=== PATIENT | male | born 2000 | race Caucasian/White ===

== ENCOUNTER 2021-10-08 15:00 | Outpatient (RCR) | payer BC, SELFPAY | END 2022-01-01 11:48 | disposition home or self-care (01) | PROVIDERS: PCP Family Medicine; Visit Provider Physical Medicine & Rehabilitation Sports Medicine | DX: M25.561 Pain in right knee (principal); Z51.89 Encounter for other specified aftercare | CPT/HCPCS: 97110; 97112 ==

== ENCOUNTER 2022-04-22 13:41 | Outpatient (CLI) | payer BC, SELFPAY ==
--- NOTE | 2022-04-22 13:45 | MR_ITS ---
[address] [address] Phone:?[phone] Fax:?[phone] Referring Physician Information: Eliana Guerra M.D. [address] [facility] [address] Phone:?[phone] Fax:?[phone] Patient:?Paramjit Boyce D.O.B:?2000 Sex:?Male Phone:?[phone] [facility] MRN:?[id number] Exam Date:?04/22/2022 ? EXAM: MRI of the RIGHT KNEE, without contrast CLINICAL HISTORY: Right knee pain. COMPARISONS: None available. TECHNICAL: MR sequences of the right knee: sagittals: PD, PDFS coronals: PD, STIR axials: PD, T2 FS CONTRAST: None SEDATION: None FINDINGS: Bones: No fracture, bone marrow contusion, or other suspicious bone marrow signal abnormality. Patellofemoral joint: Cartilage: Single obliquely oriented slitlike chondral fissure over the medial patellar facet best seen on sagittal series 6 image 18 with slight subjacent subchondral cystic change best seen on sagittal series 5 image 18. Tiny 1 x 1 mm focus of slitlike delamination at the subchondral bone plate-cartilage interface over the median patellar ridge-lateral patellar facet junction with minimal subjacent subchondral edema-like signal. Retinacula: The medial and lateral retinacula are intact. Fat pads: The infrapatellar, quadriceps, and prefemoral fat pads are unremarkable. Knee joint: Effusion: Physiologic amount of joint fluid. Popliteal cyst: None. Intra-articular bodies: None. Posteromedial corner: The semimembranosus and pes anserine tendons are intact. Medial compartment: Medial meniscus: Intact. Cartilage: Intact. Lateral compartment: Lateral meniscus: Intact. Cartilage: Intact. Ligaments: Anterior cruciate ligament: Intact. Posterior cruciate ligament: Intact. Medial collateral ligament: Intact. Posterior oblique ligament: Intact. Fibular collateral ligament: Intact. Posterolateral corner: The distal biceps femoris tendon, iliotibial band, popliteus tendon, popliteus muscle, popliteofibular ligament, and arcuate ligament are intact. Extensor mechanism: Patellar tendon: Intact. Quadriceps tendon: Intact. IMPRESSION: 1. Single obliquely oriented slitlike chondral fissure over the medial patellar facet with slight subjacent subchondral cystic change and a tiny 1 x 1 mm focus of slitlike delamination at the subchondral bone plate-cartilage interface over the median patellar ridge-left patellar facet junction with minimal subjacent subchondral edema-like signal. Findings are of uncertain clinical significance. 2. Otherwise, unremarkable MRI of the right knee without ligamentous, tendinous, or meniscal pathology. RCB Electronically signed on 04/23/2022 6:01:00 AM by Sameer Browning M.D.
== END 2022-04-22 13:42 | disposition home or self-care (01) ==
LOC: MRI 13:43
PROVIDERS: PCP Family Medicine; Referring Provider Physical Medicine & Rehabilitation
DX: M25.561 Pain in right knee (principal)
CPT/HCPCS: 73721

== ENCOUNTER 2022-07-16 09:00 | Outpatient (RCR) | payer BC, SELFPAY | END 2022-10-08 16:19 | disposition home or self-care (01) | PROVIDERS: PCP Family Medicine; Visit Provider Physician Assistant | DX: M25.331 Other instability, right wrist (principal); Z51.89 Encounter for other specified aftercare | CPT/HCPCS: 97035; 97140; 97165 ==

== ENCOUNTER 2022-07-16 09:30 | Outpatient (RCR) | payer BC, SELFPAY | END 2022-11-13 23:59 | disposition home or self-care (01) | PROVIDERS: PCP Family Medicine; Visit Provider Physician Assistant | DX: M25.551 Pain in right hip (principal); M79.662 Pain in left lower leg; M79.661 Pain in right lower leg; M25.552 Pain in left hip; R10.2 Pelvic and perineal pain; R32 Unspecified urinary incontinence; M24.80 Other specific joint derangements of unspecified joint, not elsewhere classified; R53.1 Weakness; Z51.89 Encounter for other specified aftercare | CPT/HCPCS: 97110; 97140; 97161; 97162 ==

== ENCOUNTER 2023-01-14 14:30 | Outpatient (CLI) | payer BC, SELFPAY ==
--- NOTE | 2023-01-14 14:30 | MR_ITS ---
[facility] [address] [facility] [address] Phone:?[phone] Fax:?[phone] Referring Physician Information: . HANK Watson Medical Records [facility] [address] [facility] [address] Phone:?[phone] Fax:?[phone] Patient:?Paramjit Boyce D.O.B:?2000 Sex:?Male Phone:?[phone] [facility] MRN:?[id number] Exam Date:?01/14/2023 EXAM: MRI of the LEFT HIP, without contrast CLINICAL: Bilateral hip pain. COMPARISONS: Left hip MRI 03/28/2020. TECHNICAL: Multiplanar multisequence MRI of the left hip was obtained. Coronal large grrlw-hr-bley sequences of the pelvis/bilateral hips were also obtained. SEDATION: None. CONTRAST: None. FINDINGS: Hip joint: Physiologic volume of joint fluid. No convincing loose bodies. No demonstrable high-grade or full-thickness chondral loss. Labrum: There is focal tearing of the anterosuperior labrum on coronal series 2 image 14 and involving the superior labrum on coronal series 2 image 17, new compared to prior exam. Focal tearing of the far anterior labrum is also noted on axial series 7 image 17, new compared to prior exam. Mild fraying of the remainder of the anterosuperior labrum. No perilabral cyst formation identified. Proximal femur: No marrow edema, fracture or osteonecrosis. No convincing femoral cam morphology. Acetabulum: No significant subchondral marrow edema, cystic change or fracture. Version: There is decreased anteversion of the superior acetabulum. Coverage: Left lateral center edge (CE) angle measures approximately 34? (normal 25?-39?), midline coronal series 4 image 17. Ligamentum teres: Intact and unremarkable. Pelvis osseous structures: No suspicious marrow signal alteration or fracture line. Sacroiliac joints are maintained without marrow signal changes to suggest sacroiliitis or significant arthrosis. No evident arthrosis or changes of osteitis pubis at the symphysis pubis. Myotendinous structures: Gluteus abductors: No convincing insertional tendinopathy or tear of gluteus minimus or medius. Adductors: No demonstrable tendinopathy or strain/tear. Hamstrings: Intact semimembranosus, semitendinosus and biceps femoris tendons, without tendinopathy or tear. Flexors: Intact iliopsoas and rectus femoris, without strain/tear. External rotators: Intact. The ischiofemoral and quadratus femoris spaces are within normal limits. Gluteal aponeurotic fascia and IT band: Unremarkable. Bursae: No demonstrable trochanteric or iliopsoas bursitis. Intrapelvic structures: Although evaluation of the intrapelvic structures is limited on this exam, no convincing pelvic mass is identified as visualized. IMPRESSION: 1. Foci of tearing of the far anterior labrum, anterosuperior and superior labrum as above. 2. Decreased anteversion of the superior acetabulum. 3. No additional internal derangement identified. JCZ Electronically signed on 01/15/2023 11:25:00 AM by Michael Mckeon D.O.
== END 2023-01-14 14:31 | disposition home or self-care (01) ==
LOC: MRI 14:31
PROVIDERS: PCP Family Medicine; Visit Provider Orthopaedic Surgery
DX: M25.552 Pain in left hip (principal); S73.192A Other sprain of left hip, initial encounter
CPT/HCPCS: 73721

== ENCOUNTER 2023-04-21 09:27 | Outpatient (CLI) | payer BC, SELFPAY ==
--- NOTE | 2023-04-21 09:15 | FL_ITS ---
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 Site :?2000 Study:?XRay-Hip INJECTION W/FLUORO TO READ-04/21/2023 10:56:50 AM Ordering Physician:?KAYLEIGH ADAM Final Report: Indication: Right hip pain Procedure : Informed consent was obtained. The site was marked. Time-out was performed. The skin of the right hip was cleansed with ChloraPrep. A sterile drape was placed. 8 cc of 1 percent lidocaine was administered for superficial anesthesia. Subsequently a 22 gauge spinal needle was introduced into the right hip joint under intermittent fluoroscopic guidance. Injection of 2 cc nonionic Omnipaque 240 contrast confirmed intra-articular location. Subsequently 11 cc of dilute gadolinium were injected. The needle was removed and hemostasis achieved with direct pressure. A dressing was placed. The patient tolerated the procedure well without immediate complication and was immediately sent to MRI for imaging. Total fluoroscopy time 35 seconds. Impression: Successful fluoroscopically guided right hip arthrogram for MRI. Dictated by Gaurav Saldaña MD @ 04/21/2023 11:37:06 AM Signed by:?Gaurav Saldaña MD @04/21/2023 11:37:06 AM (Electronic Signature)
--- NOTE | 2023-04-21 10:15 | MR_ITS ---
[facility] [address] [facility] [address] Phone:?[phone] Fax:?[phone] Referring Physician Information: Ahsan Talbert MD Orthopaedic Surgery [address] [facility] [address] Phone:?[phone] Fax:?[phone] Patient:Afshan Boyce D.O.B:?2000 Sex:?Male Phone:?[phone] [facility] MRN:?[id number] Exam Date:?04/21/2023 EXAM: MR ARTHROGRAM of the RIGHT HIP CLINICAL HISTORY: Ongoing right hip pain. History of previous right hip surgery. COMPARISONS: MRI 10/25/2019. TECHNIQUE: MR sequences of the right hip: coronals: PD, T2, T1FS sagittals: PD, T2, T1FS axial obliques: PD axials: PD FS coronals of pelvis: T1, STIR Sedation: None Contrast: Intra-articular gadolinium based contrast. The injection procedure is reported separately. FINDINGS: Pelvis osseous structures: Sacrum: No fracture or destructive osseous lesion is seen of the imaged portions of the sacrum. Sacroiliac joints: No convincing evidence of sacroiliitis of the imaged portions of the sacroiliac joints. Pubic rami: Unremarkable. Symphysis pubis: There is no evidence of acute osteitis pubis. AIIS: Inferior extent: 5 mm inferior to the level of the acetabular roof. Anterior extent: 22 mm anterior to the level of mid anterior acetabular rim. Labrum: There are surgical changes status post superior and anterosuperior labral repair. There is a tiny 1 mm in length focus of intermediate PD signal within the base of the labrum at the 3 o'clock position anteriorly best seen on axial oblique series 8 image 14. Otherwise, the labrum is unremarkable status post right hip labral repair. Hip joint: The presence of contrast reflects intra-articular injection. There is a 3 x 3 mm focus of near full-thickness chondral loss over the anterosuperior portion of the right femoral head best seen on sagittal series 11 image 22 and axial oblique series 8 image 14. No degenerative subchondral cystic change or degenerative subchondral edema-like signal is seen. A normal variant suprapatellar fossa is again seen. Proximal femur: No fracture, osseous stress injury, avascular necrosis, or suspicious bone marrow signal abnormality is seen. Acetabulum: No subchondral cysts, periacetabular ossicles or marrow edema. Coverage: Right lateral center edge (CE) angle measures approximately 33? correcting for coronal pelvic tilt, midline coronal series 6 image 18. Ligamentum teres: Unremarkable. Myotendinous structures: Gluteus abductors: The gluteus minimus and medius tendons are unremarkable. Rectus abdominis-adductor longus aponeurosis, adductors, and rectus abdominis: Unremarkable. Hamstrings: Unremarkable. Flexors: The iliopsoas and rectus femoris tendons are intact. Quadratus femoris muscle: Unremarkable. Gluteal aponeurotic fascia and IT band: Unremarkable. Pelvic soft tissues: Unremarkable. IMPRESSION: 1. Surgical changes status post superior and anterosuperior labral repair of the right hip; correlate with surgical history. A tiny 1 mm in length focus of intermediate signal within the base of the right hip labrum at the 3 o'clock position anteriorly may reflect granulation tissue but is a nonspecific/equivocal finding of uncertain clinical significance. Otherwise, the labrum is unremarkable status post right hip labral repair. 3 x 3 mm focus of near full-thickness chondral loss over the anterosuperior portion of the right femoral head. No subchondral cystic change/subchondral edema-like signal.. Normal variant supra-acetabular fossa. 2. The right anterior inferior iliac spine extends 5 mm inferior to the level of the acetabular roof and 22 mm anterior to the level of the mid anterior acetabular rim. 3. No fracture, osseous stress injury, or tendinous pathology of the right hip. RCB Electronically signed on 04/21/2023 12:46:00 PM by Sameer Browning M.D.
== END 2023-04-21 09:28 | disposition home or self-care (01) ==
PROVIDERS: PCP Family Medicine; Visit Provider Orthopaedic Surgery
DX: M25.551 Pain in right hip (principal)
CPT/HCPCS: 27093; 73525; 73722; 77002; A9575; Q9966

== ENCOUNTER 2023-05-06 13:00 | Outpatient (RCR) | payer BC, SELFPAY | END 2023-09-03 23:59 | disposition home or self-care (01) | PROVIDERS: PCP Family Medicine; Visit Provider Orthopaedic Surgery | DX: M25.551 Pain in right hip (principal); M25.552 Pain in left hip; R29.898 Other symptoms and signs involving the musculoskeletal system; M62.81 Muscle weakness (generalized); Z51.89 Encounter for other specified aftercare | CPT/HCPCS: 97110; 97112; 97161 ==

== ENCOUNTER 2023-11-08 13:34 | Emergency (ER) | payer BC, SELFPAY ==
[2023-11-08 13:53] VITALS: BP 142/88; PULSE 118; RESP 16; TEMP 37.2; O2SAT 98; BMI 19.0
--- NOTE | 2023-11-08 14:24 | ED.GENADULT ---
HPI - General Adult General Chief complaint: Urogenital Problems, Male Stated complaint: Fluid retention-ref by home care physical therapist to get Garza Time Seen by Provider: 11/08/23 13:57 History of Present Illness HPI narrative: Straight caths at home, last cath last night . Recent lower body cast placed to allow left hip to heal (labral tear, etc, connective tissue disorder ). 23-year-old man presenting to the emergency department requesting placement of a Garza catheter. Recent surgery for left-sided hip labral tear head the setting of unspecified connective tissue disorder. Genetic testing apparently was negative but treats as if has Marfan's. Intermittently has had some trouble with urinary retention for some time requiring periodic self cathing. Since placement of this cast has been self cathing again. Demonstrated for home health and concern of clean/sterile technique and recommended for Garza placement. This had been discussed postop but were going to try straight cath for a while. He was having some discomfort. No fever. Admittedly has not been hydrating as well as he should as concern of cathing/urinary retention. Related Data Home Medications ?Medication ?Instructions ?Recorded ?Confirmed aspirin 81 mg chewable tablet 1 tab PO BID 11/08/23 11/08/23 cyclobenzaprine 5 mg tablet 5 mg PO 3XD PRN 11/08/23 11/08/23 diclofenac sodium 1 % topical gel 2 g topical QID 11/08/23 11/08/23 famotidine 40 mg tablet 40 mg PO DAILY 11/08/23 11/08/23 Allergies Allergy/AdvReac Type Severity Reaction Status Date / Time No Known Allergies Allergy Verified 11/08/23 13:59 Review of Systems Status of ROS: Reports: 6 or more systems reviewed and unremarkable except as noted in History and below [facility] Medical History Scaphoid fracture ?S62.009A - Unspecified fracture of navicular [scaphoid] bone of unspecified wrist, initial encounter for closed fracture (ICD-10) Klinefelter syndrome ?Q98.4 - Klinefelter syndrome, unspecified (ICD-10) 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 - Pectus excavatum (ICD-10) Contusion of great toe of left foot ?S90.112A - Contusion of left great toe without damage to nail, initial encounter (ICD-10) Chronic patellofemoral pain of left knee ?M25.562 - Pain in left knee (ICD-10) ?G89.29 - Other chronic pain (ICD-10) Tear of triangular fibrocartilage complex (TFCC) of right wrist (~07/2021) ?S63.591A - Other specified sprain of right wrist, initial encounter (ICD-10) Surgical History Status post arthroscopy of hip ?Z98.890 - Other specified postprocedural states (ICD-10) History of carpal tunnel surgery of left wrist (02/02/21) ?Z98.890 - Other specified postprocedural states (ICD-10) Social History Smoking Status: Never smoker Do you use any of these nicotine containing products: None Second hand tobacco smoke exposure: No Non-prescribed substance use: denies use Exam Narrative: Exam Narrative: Pleasant. Tall. NAD. Breathing easily. Has a extensive cast over the hips/pelvis and left leg. Garza has already been placed and appears to draining relatively clear urine lightly yellow. Has drained looks like 600 mL so far. Const: Vital Signs, click to edit/add: Vital Signs - 24 hr 11/08/23 13:53 Temperature 99 F Pulse Rate [Pulse Oximeter] 118 H Respiratory Rate 16 Blood Pressure [Ri ght Upper Arm] 142/88 H Pulse Oximetry 98 Oxygen Delivery Me thod Room Air Documenting provider has reviewed patient's vital signs: yes Course Vital Signs Vital signs: Initial Vital Signs Temperature 99 F 11/08/23 13:53 Temperature Source Temporal Artery Scan 11/08/23 13:53 Pulse Rate 118 H 11/08/23 13:53 Respiratory Rate 16 11/08/23 13:53 Blood Pressure 142/88 H 11/08/23 13:53 Blood Pressure Mean 106 H 11/08/23 13:53 Blood Pressure Position Sitting 11/08/23 13:53 Pulse Oximetry 98 11/08/23 13:53 Oxygen Delivery Method Room Air 11/08/23 13:53 Vital Signs Temperature 99 F 11/08/23 13:53 Pulse Rate 118 H 11/08/23 13:53 Respiratory Rate 16 11/08/23 13:53 Blood Pressure 142/88 H 11/08/23 13:53 Pulse Oximetry 98 11/08/23 13:53 Oxygen Delivery Method Room Air 11/08/23 13:53 Temperature 99 F 11/08/23 13:53 Pulse Rate 118 H 11/08/23 13:53 Respiratory Rate 16 11/08/23 13:53 Blood Pressure 142/88 H 11/08/23 13:53 Pulse Oximetry 98 11/08/23 13:53 Oxygen Delivery Method Room Air 11/08/23 13:53 Medical Decision Making MDM Narrative Medical decision making narrative: Primary need was placement of Garza which has been done. This was not done looking for infection but could collect urine culture. Feels improved. See patient discharge plan for further discussion Discharge Plan Discharge Clinical Impression: Urinary retention Patient Disposition: Home, Self-Care Condition: Improved Additional Instructions: Stay well-hydrated. We will let you know if the urine culture might require action. Pending results would contact you to see how you are doing. Follow-up with care providers to see when they might like you to change this Garza. Best wishes with your rehab. Prescriptions: No Action aspirin 81 mg tablet,chewable 1 tab PO BID cyclobenzaprine 5 mg tablet 5 mg PO 3XD PRN famotidine 40 mg tablet 40 mg PO DAILY diclofenac sodium 1 % gel 2 g topical QID Follow Up/Referrals: Eliana Guerra MD [Primary Care Provider] - Stand Alone Forms: [employer] Info Instructions
--- OUTSIDE RECORDS SUMMARY | 2023-11-08 15:11 | XMS_ITS | Clinical Summary ---
Author Organization [facility] Address [place], [place] [address] Care Team Providers Care Estimating Engineer Name Role Phone Eliana Guerra MD Primary Care Provider [facility] [place] Unavailable Allergies No known active allergies Medications Medication Sig Dispensed Refills Start Date End Date Status acetaminophen (TYLENOL) 500 mg capsule Take 1,000 mg by mouth every 6 hours if needed. 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 06/19/2021 Active polyethylene glycol-electrolyt e (GOLYTELY) 236-22.74-6.74 -5.86 gram suspension Drink 1st portion of prep at 6 PM the evening before. 2nd portion must be started 3 hours before and finished 2 hours prior to report time 01/20/2022 Active ferrous sulfate, 65 mg elemental, (FeroSuL) tabletIndications :Restless legs Take 1 Tablet (325 mg) by mouth once daily with a meal. 90 Tablet 04/16/2022 Active loratadine (CLARITIN) 10 mg tabletIndications :Perennial allergic rhinitis Take 1 Tablet (10 mg) by mouth once daily. 90 Tablet 3 01/20/2023 Active diclofenac topical (Voltaren) 1 % gelIndications:Ri ght knee pain, unspecified chronicity,Recurr ent right knee instability Apply 2 g topically to affected area(s) four times daily. 100 g 2 04/14/2023 Active famotidine (PEPCID) 40 mg tabletIndications :Heart burn Take 1 Tablet (40 mg) by mouth once daily. 90 Tablet 1 04/21/2023 Active tamoxifen (NOLVADEX) 20 mg tablet Take 20 mg by mouth once daily. 06/07/2023 Active hydrOXYzine HCL (ATARAX) 25 mg tabletIndications :Acute reaction to situational stress Take 1 Tablet (25 mg) by mouth at bedtime if needed for Anxiety. 30 Tablet 09/29/2023 Active cyclobenzaprine (FLEXERIL) 5 mg tabletIndications :Muscle spasm Take 1 Tablet (5 mg) by mouth 3 times daily if needed for Muscle Spasm. 30 Tablet 11/02/2023 Active cyclobenzaprine (FLEXERIL) 5 mg tabletIndications :Muscle spasm Take 1 Tablet (5 mg) by mouth three times daily. 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/23/2018 Tall stature 03/23/2018 Connective tissue disorder 01/04/2018 Underweight in adolescence 01/04/2018 Scoliosis 01/04/2018 Congenital pectus excavatum 12/29/2013 Encounters Date Type Department Care Team Description 11/08/2023 1:30 PM CDT Office Visit [facility] [address] [place] [address] Una Apodaca PsyD, LP Failed Appointment 11/08/2023 Home Care Visit [facility] [address] [place] [id number] Manuela Morton RN CARE COORDINATION 11/08/2023 Telephone [facility] [address] [place] [address] Sole Sommer, PT Home Care (Garza Order) 11/08/2023 Telephone [facility] [address] [place] [address] Sole Sommer, PT Home Care (SN Orders) 11/08/2023 Telephone [facility] [address] [place] [address] Eliana Guerra MD ACC Order Request (verbal orders) 11/06/2023 Refill [facility] [address] [place] [address] Eliana Guerra MD Refill Request (Hydroxyzine Hcl) 11/02/2023 1:35 PM CDT Office Visit [facility] [address] [place] [address] Eliana Guerra MD Physical (23 year old) 11/02/2023 Travel 10/31/2023 1:30 PM CDT Telemedicine [facility] [address] [place] [address] Una Apodaca PsyD, EDSON Mental Health Intake 10/31/2023 Travel 10/27/2023 8:30 AM CDT Office Visit [address] [address] [facility] Visit 10/27/2023 Travel 10/18/2023 10:30 AM CDT Office Visit [address] [address] [facility] Visit 10/18/2023 Travel 09/29/2023 2:25 PM CDT Office Visit [address] [address] Eliana Guerra MD Medication Management 09/29/2023 Travel from Last 3 Months Immunizations Name Administration Dates Next Due COVID-19 VACCINE SPIKEVAX (M ODERNA 50MCG/0.5ML) 12YO+ PFS 11/02/2023 COVID-19 vaccine (Moderna 100mcg/0.5mL) PF, MDV 08/15/2020,05/29/2020 COVID-19 vaccine (Pfizer-Bio NTech 30mcg/0.3mL) 12YO+ BIVALENT PF, MDV 04/16/2022 COVID-19 vaccine (Pfizer-Bio NTech 30mcg/0.3mL) PF, MDV 02/18/2021 DTaP 11/11/2004, 2,01/12/2001,09/02 HIB-HepB (Comvax) 10/20/2001,01/12/2001,09/03/19 01 HPV 9 (Gardasil 9) 10/28/2020,03/07/2020, 020 Hepatitis A (Peds) 04/18/2018,02/23/2017 INFLUENZA, IIV3 PF (AGE >= 6 MO) 11/02/2023 Inactivated Polio Vaccine 11/11/2004,,01/12/2001,09/02 Influenza, IIV4 11/19/2022, 3,10/28/2020,10/18,10/24/2017,02/23/2017,12/06/2013 MENINGOCOCCAL VACCINE 2 VIAL 2MO-55YO (MENVEO) 02/23/2017,09/02/2015 MMR 11/11/2004,10/20/2001 Pneumococcal conj 7-Valent (Prevnar 7) 2,01/12/2001,2000 Tdap 11/19/2022,09/22/2012 Tuberculin (PPD) 10/28/2020 Varicella Vaccine 09/22/2012,10/20/2001 Family History Medical History Relation Name Comments Good Health Father Good Health Mother Good Health Sister 2 Relation Name Status Comments Father Alive Mother Alive Sister 1 Alive Sister 2 Social History Tobacco Use Types Packs/Day Years Used Date Smoking Tobacco: Never Smokeless Tobacco: Never Tobacco Cessation:Counseling Given: Yes Alcohol Use Standard Drinks/Week Comments Yes 0 (1 standard drink = 0.6 oz pur e alcohol) 1-2 drinks per month PHQ-2 Answer Date Recorded PHQ-2 TOTAL SCORE 1 10/31/2023 Social Connections Answer Date Recorded Frequency of Communication with Friends and Fami ly 0 04/21/2023 Financial Resource Strain Answer Date R ecorded Difficulty of Paying Living Expenses 3 04/21/2023 Difficulty of Paying Living Expenses Not on file 04/21/2023 Food Insecurity Answer Date Recorded Worried About Running Out of Food in the Last Ye ar 1 04/21/2023 Transportation Needs Answer Date Record ed Lack of Transportation (Medical) 1 04/21/2023 Housing Stability Answer Date Recorded Unable to Pay for Housing in the Last Year 1 04/21/2023 Sex and Gender Information Value Date Recorded Sex Assigned at Not on file Gender Identity Not on file Sexual Orientation Not on file Obstetrics History Last Filed Vital Signs Vital Sign Reading Time Taken Comments Blood Pressure 122/84 11/02/2023 1:38 PM CDT Pulse 101 11/02/2023 1:38 PM CDT Temperature 36.4 ??C (97.6 ??F) 01/27/2022 9:00 AM CS T Respiratory Rate 16 01/20/2023 1:02 PM REGIONAL ENGINEER Oxygen Saturation 99% 11/02/2023 1:38 PM CDT Inhaled Oxygen Concentration - - Weight 67.9 kg (149 lb 12.8 oz) 11/02/2023 1:38 PM CDT Height 188.6 cm (6' 2.25) 11/02/2023 1:38 PM CD T Body Mass Index 19.1 11/02/2023 1:38 PM CDT Plan of Treatment Upcoming Encounters Date Type Department Care Team (Late st Contact Info) Description 11/15/2023 1:00 PM CDT Office Visit [facility] [address] [place] [address] Larry Green DPM [address] [place] [address] 12/05/2023 9:30 AM CDT Office Visit [facility] [address] [place] [address] Una Apodaca, PsyD, LP [address] [place] [address] Health Maintenance Due Date Last Done Comments COVID-19 vaccine series ( - 2023- season) 2023 11/02/2023, 04/16/2022, 02/18/2021, Additional history exists BMI (ht and wt on same day) for age 18+ 11/01/2024 11/02/2023, 01/20/2023, 11/19/2022, Additional history exists Depression screening for age 12+ 11/01/2024 11/02/2023, 10/31/2023, 08/01/2023, Additional history exists Tetanus booster 11/19/2032 11/19/2022, 09/22/2012 Pneumococcal series for age 6-64 Aged Out 04/21/2001, 01/12/2001, 2000 No longer eligible based on patient's age to complete this topic HIV for age 15-65 Completed 08/18/2020 Hepatitis C screening for age 18-79 Completed 08/18/2020 HPV series for age 9-26 Completed 10/29/19 21, 03/07/2020, 10/19/2019 Tdap Completed 11/19/2022, 09/22/2012 Influenza for age 9-49 Completed , 11/19/2022, 04/16/2022, Additional history exists Procedures Procedure Name Priority Date/Time Associated Diagnosis Comments EXPOSURE (BBF) RAPID HIV Routine 08/18/2020 8:10 AM CDT Employee exposure to blood EXPOSURE (BBF) ANTI HCV Routine 08/18/2020 8:10 AM CDT Employee exposure to blood from Last 3 Months or Most Recently Relevant to Health Maintenance Results * EXPOSURE (BBF) RAPID HIV (08/18/2020 8:10 AM CDT) SOURCE RAPID HIV SCREEN Non-Reacti ve Non-Reacti ve 08/18/2020 2:42 PM CDT [facility] Blood BLOOD SPECIMEN / Unknown Venipuncture / Unknown 08/18/2020 8:10 AM CDT 08/18/2020 8:11 AM CDT Eliana Guerra MD SEND OUTS [facility] [employer] [address] [place] [address], [place] * EXPOSURE (BBF) ANTI HCV (08/18/2020 8:10 AM CDT) HEPATITIS C ANTIBODY Non-React alex Non-React alex 08/18/2020 2:57 PM CDT [facility] Comment:Antibodies to HCV no t detected; does not exclude the possibility of exposure to HCV. Blood BLOOD SPECIMEN / Unknown Venipuncture / Unknown 08/18/2020 8:10 AM CDT 08/18/2020 8:11 AM CDT Eliana Guerra MD SEND OUTS [facility] [employer] [address] [place] [address], [place] from Last 3 Months or Most Recently Relevant to Health Maintenance Care Teams Estimating Engineer Relationship Specialty Start Date End Date Eliana Guerra MD [address] [place] [address] PCP - General Family Practice 10/20/[address] [address] 11/07/23
--- OUTSIDE RECORDS SUMMARY | 2023-11-08 15:11 | XMS_ITS | Clinical Summary ---
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 Discharge Disposition: Home or Self Care Attending Physician: Jennifer Sams MD Admitting Physician: Jennifer Sams MD Referring Physician: Jennifer Sams MD Allergies, Adverse Reactions, Alerts No Known Allergies Discharge Medications cyclobenzaprine (cyclobenzap rine 5 mg oral tablet) Status: Ordered Start Date: 10/21/23 diclofenac topical (diclofen ac 1% topical gel) Status: Ordered Start Date: 10/21/23 famotidine (famotidine 40 mg oral tablet) Status: Ordered Start Date: 09/05/23 hydrOXYzine (hydrOXYzine hyd rochloride 25 mg oral tablet) Status: Ordered Start Date: 10/21/23 tamoxifen (tamoxifen 20 mg o ral tablet) Status: Ordered Start Date: 09/05/23 Problem List Condition Confirmation Course Effective Dates Status Health St atus Informant Pectus excavatum Confirmed Active patie nt Scoliosis Confirmed Active patient Hospital Discharge Diagnosis 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 (This Visit) Immunizations Given and Recorded Vaccine Date Status Refusal Reason tetanus/diphth/pertuss (Tdap) adult/adol 11/19/22 Recorded tetanus/diphth/pertuss (Tdap) adult/adol 09/22/12 Recorded influenza virus vaccine, inactivated 11/19/22 Bony rded influenza virus vaccine, inactivated 04/16/22 Bony rded influenza virus vaccine, inactivated 10/28/20 Bony rded influenza virus vaccine, inactivated 10/19/19 Bony rded influenza virus vaccine, inactivated 10/24/17 Bony rded influenza virus vaccine, inactivated 02/23/17 Bony rded influenza virus vaccine, inactivated 12/06/13 Bony rded SARS-CoV-2 mRNA (tozinameran) vaccine 02/18/21 Rec orded human papillomavirus vaccine 10/28/20 Recorded human papillomavirus vaccine 03/07/20 Recorded human papillomavirus vaccine 10/19/19 Recorded SARS-CoV-2 (COVID-19) mRNA-1273 vaccine 08/15/20 R ecorded SARS-CoV-2 (COVID-19) mRNA-1273 vaccine 05/29/20 R ecorded hepatitis A pediatric vaccine 04/18/18 Recorded hepatitis A pediatric vaccine 02/23/17 Recorded meningococcal conjugate vaccine 02/23/17 Recorded meningococcal conjugate vaccine 09/02/15 Recorded varicella virus vaccine 09/22/12 Recorded varicella virus vaccine 10/20/01 Recorded poliovirus vaccine, inactivated 11/11/04 Recorded poliovirus vaccine, inactivated 04/21/01 Recorded poliovirus vaccine, inactivated 01/12/01 Recorded poliovirus vaccine, inactivated 00 Recorded measles/mumps/rubella/varicella vaccine 11/11/04 R ecorded measles/mumps/rubella/varicella vaccine 10/20/01 R ecorded diphtheria/tetanus/pertussis (DTaP) ped 11/11/04 R ecorded diphtheria/tetanus/pertussis (DTaP) ped 04/21/01 R ecorded diphtheria/tetanus/pertussis (DTaP) ped 01/12/01 R ecorded diphtheria/tetanus/pertussis (DTaP) ped 00 R ecorded Vital Signs Most recent to oldest [Reference Range]: 1 Pain Present Yes actual or suspec steven pain (11/04/23 12:47 PM) Able to self report Yes (11/04/23 12:47 PM) able to use numeric rating scale Yes (11/04/23 12:47 PM) Social History Social History Type Response Tobacco Never (less than 100 in lifetime) Sex Sex Representation Male (finding) Treatment Plan Future Appointments Appointment Date:12/26/2023 10:50:00 AM Scheduled Provider:Jennifer Sams MD Location:[facility] - Clinic Appointment Type:Orthopedics Hip Preservation - Standard Appointment Date:12/26/2023 01:20:00 PM Scheduled Provider:Leila Mahoney MD Location:[facility] - [facility] Appointment Type:Hand - New Patient Care team information Personnel Name: Eliana Guerra MD Address: [address]
--- OUTSIDE RECORDS SUMMARY | 2023-11-08 15:11 | XMS_ITS | Referral Summary ---
Author Organization [facility] Address [address] [place] [id number] Care Team Providers Care Knockout Machine Operator Name Role Phone Elsewhere, Pcp Primary Care Provider Unavailabl e Source Comments Patient records contain information from all sites at [facility]. For routine questions regarding patient records, call [phone] during business hours, M-F 8:00 AM - 5:00 PM Central Time. Record requests for emergency care only can be directed to [phone] at any time.[facility] Encounters Date Type Department Care Team Description 11/07/2023 Clinical Communication Department of Sports Medicine in [place], [place] [address] [place] [phone] Ahsan Talbert M.D., Ph.D. Order Needed Today 11/07/2023 Orders Only Department of Orthopedic Surgery in [address] [phone] Candida Lucero P.A.-C. Pain Hip Left (Primary Dx) 11/07/2023 1:00 PM CDT Comprehensive Visit Department of Physical Medicine and Rehabilitation in [place], [place] [address] [place] [phone] Mike Salomon Jr., Raymon.Irish Carter P.T., D.P.T. Pain Wrist Left (Primary Dx); Pain Wrist Right 11/07/2023 10:00 AM CDT Comprehensive Visit Department of Physical Medicine and Rehabilitation in [address] [phone] Candida Lucero P.A.-C. Lee, Madeline M P.T., D.P.T., OCS Pain Hip Left [M25.552] (Primary Dx); Pain Hip Right 11/07/2023 7:54 AM CDT - 11/07/2023 8:34 AM CDT Hospital Encounter Department of Orthopedic Surgery in [place], [place] [address] [place] [phone] Kushal Mendieta M.D. Hevesi, Mario, M.D., Ph.D. Mobility Limited (Primary Dx); Pain Hip Left; Hypermobility Joint Discharge Disposition: Home or Self Care 10/31/2023 8:45 AM CDT - 10/31/2023 9:07 AM CDT Hospital Encounter Department of Radiology, [facility], in [place], [place] [address] [place] [phone] Candida Lucero P.A.-C. Pain Hip Right Discharge Disposition: Home or Self Care 10/31/2023 9:08 AM CDT - 10/31/2023 11:59 PM CDT Hospital Encounter Department of Radiology, [facility], in [place], [place] [address] [place] [phone] Candida Lucero P.A.-C. Pain Hip Right Discharge Disposition: Home or Self Care 10/31/2023 9:08 AM CDT - 10/31/2023 11:59 PM CDT Hospital Encounter Department of Radiology, [facility], in [place], [place] [address] [place] [phone] Candida Lucero P.A.-C. Pain Hip Right Discharge Disposition: Home or Self Care 10/25/2023 Orders Only Department of Orthopedic Surgery in [address] [phone] Candida Lucero P.A.-C. Pain Hip Right (Primary Dx) 10/25/2023 Clinical Communication Department of Sports Medicine in [place], [place] [address] [place] [phone] Ahsan Talbert M.D., Ph.D. 10/25/2023 Orders Only Department of Orthopedic Surgery in [place], [place] [address] [place] [phone] Candida Lucero P.A.-C. Pain Hip Right (Primary Dx) 10/24/2023 Orders Only Department of Orthopedic Surgery in [address] [phone] Ahsan Talbert M.D., Ph.D. 10/24/2023 1:15 PM CDT Telemedicine Department of Sports Medicine in [address] [phone] Ahsan Talbert M.D., Ph.D. Pain Hip Right (Primary Dx) 10/13/2023 Orders Only Department of Orthopedic Surgery in [address] [phone] Mike Salomon Jr., P.A.-C. Pain Wrist Left (Primary Dx) 09/19/2023 Documentation [facility] Aisha Foster M.S.Emiliana, L.I.C.S.W. 09/19/2023 11:00 AM CDT Virtual Visit Department of Social Work in [address] [phone] Candida Lucero P.A.-C. Aisha Foster M.S.Emiliana, L.I.C.S.W. Pain Hip Bilateral 09/16/2023 Clinical Communication Department of Sports Medicine in [address] [phone] Ahsan Talbert M.D., Ph.D. 09/15/2023 8:00 AM CDT Telemedicine Department of Sports Medicine in [address] [phone] Ahsan Talbert M.D., Ph.D. Pain Hip Bilateral (Primary Dx) 09/13/2023 3:45 PM CDT Clinical Communication Virtual Review in [address] [phone] Pre-visit Intake 09/01/2023 1:00 PM CDT Telemedicine Department of Urology in [place], [place] [address] [place] [address] Kate Egan P.A.-C. Retention Urinary (Primary Dx); Dysfunction Pelvic Floor Male 08/31/2023 4:00 PM CDT Procedure visit Department of Sports Medicine in [place], [place] [address] [place] [phone] Armin Colvin M.D. Pain Hip Left; Pain Hip Right 08/24/2023 Orders Only Department of Urology in [place], [place] [address] [place] [phone] Kate Egan P.A.-C. 08/23/2023 Clinical Communication Department of Sports Medicine in [place], [place] [address] [place] [address] Ahsan Talbert M.D., Ph.D. 08/18/2023 8:00 AM CDT Comprehensive Visit Department of Urology in [place], [place] [address] [place] [address] Kate Egan P.A.-C. Frequency Urinary (Primary Dx); Hesitancy Urinary 08/18/2023 7:00 AM CDT - 08/18/2023 11:59 PM CDT Hospital Encounter Department of Laboratory Medicine and Pathology, [facility], in [place], [place] [address] [place] [phone] Tam Clark M.D. Frequency Urinary Discharge Disposition: Home or Self Care 08/18/2023 1:45 PM CDT Procedure visit Department of Urology in [place], [place] [address] [place] [phone] Tam Clark M.D. Pingel, Kim M, L.P.NMackenzie Retention Urinary (Primary Dx); Frequency Urinary 08/18/2023 10:30 AM CDT Comprehensive Visit Department of Physical Medicine and Rehabilitation in [place], [place] [address] [place] [phone] Corrine Lewis P.A.-C., M.S. Bel Rojo P.T., D.P.T., OCS Spasm Muscle (Primary Dx); Pain Pelvic Male from Last 3 Months Allergies No known active allergies Medications Medication Sig Dispensed Refills Start Date End Date Status famotidine (PEPCID) 40 mg tablet Take 40 mg by mouth 2 (two) times a day. Active tamoxifen (NOLVADEX) 20 mg tablet Take 1 tablet (20 mg total) by mouth daily. Swallow whole; do not split, chew, or crush. Take with or without food. 90 tablet 06/07/2023 Active tadalafiL (Cialis) 5 mg tablet Take 1 tablet (5 mg total) by mouth daily. 90 tablet 07/11/2023 Active aspirin 81 mg chewable tablet Chew 1 tablet (81 mg total) 2 (two) times a day for 21 days. 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 Pain Wrist Left 07/01/2020 DeQuervain's Tenosynovitis 05/23/2020 Pain Hip Bilateral 12/12/2019 Overview (12/12/2019): Added automatically from request for surgery [id number] Tear Hip Labral Degenerative Right 12/12/2019 Overview (12/12/2019): Added automatically from request for surgery [id number] Klinefelter's Syndrome 07/25/2019 Primary Exertional Headache 04/18/2018 Hypogonadism Male 03/23/2018 Stature Tall 03/23/2018 Pes Planus Left 03/23/2018 Pes Planus Right 03/23/2018 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 Other Abnormal Findings In S pecimens From Other Organs Systems And Tissues 03/23/2018 Other Symptoms And Signs Inv olving The Musculoskeletal System 03/23/2018 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/23/2018 Scoliosis 01/04/2018 Systemic Involvement Of Connective Tissue Unspec ified 01/04/2018 Underweight 01/04/2018 Pectus Excavatum 12/29/2013 Pain Joint Foot Bilateral Polyarthralgia Foot Drop Left Resolved Problems Problem Noted Date Diagnosed Date Resolved Date Temporomandibular Joint Disorder 09/18/2020 01/19/2022 Social History Tobacco Use Types Packs/Day Years Used Date Smoking Tobacco: Never Smokeless Tobacco: Never Tobacco Cessation:Counseling Given: Not Answered Alcohol Use Standard Drinks/Week Comments Yes 1 (1 standard drink = 0.6 oz pur e alcohol) [facility] Utilities Answer Date Recorded In the past 12 months has e electric, gas, oil, or water [employer] threatened to shut off services in your home? No 05/22/2023 Humiliation, Afraid, Rape, and Kick questionnair e Answer Date Recorded Within the last year, have y ou been afraid of your partner or ex-partner? No 2022 Within the last year, have y ou been humiliated or emotionally abused in other ways by your partner or ex-partner? No Within the last year, have y ou been kicked, hit, slapped, or otherwise physically hurt by your partner or ex-partner? No 2022 Within the last year, have y ou been raped or forced to have any kind of sexual activity by your partner or ex-partner? No 2022 Social Connection and Isolat ion Panel [NHANES] Answer Date Recorded In a typical week, how many times do you talk on the phone with family, friends, or neighbors? More than three times a week 2022 How often do you get togethe r with friends or relatives? More than three times a week 2022 How often do you attend chur ch or yazdanism services? More than 4 times per year 2022 Do you belong to any clubs o r organizations such as latter-day groups, unions, fraternal or athletic groups, or school groups? Yes 2022 How often do you attend meet ings of the clubs or organizations you belong to? More than 4 times per year 2022 Are you , , di vorced, , never , or living with a partner? Never 2022 AUDIT-C Answer Date Recorded Q1: How often do you have a drink containing alc ohol? 2-4 times a month 2022 Q2: How many drinks containi ng alcohol do you have on a typical day when you are drinking? 1 or 2 2022 Q3: How often do you have si x or more drinks on one occasion? Less than monthly 2022 Overall Financial Resource Strain (CARDIA) Answe r Date Recorded How hard is it for you to pa y for the very basics like food, housing, medical care, and heating? Not very hard 2022 PHQ-2 Answer Date Recorded PHQ-2 Score 0 07/07/2023 [facility] [place] [facility] Occupat ional Health - Occupational Stress Questionnaire Answer Date Recorded Do you feel stress - tense, restless, nervous, or anxious, or unable to sleep at night because your mind is troubled all the time - these days? Only a little 2022 Exercise Vital Sign Answer Date Recorde d On average, how many days pe r week do you engage in moderate to strenuous exercise (like a brisk walk)? 4 days 05/22/2023 On average, how many minutes do you engage in exercise at this level? 10 min 05/22/2023 Hunger Vital Sign Answer Date Recorded Within the past 12 months, y ou worried that your food would run out before you got the money to buy more. Never true 05/22/19 24 Within the past 12 months, t he food you bought just didn't last and you didn't have money to get more. Never true 05/22/2023 PRAPARE - Transportation Answer Date Re corded In the past 12 months, has l ack of transportation kept you from medical appointments or from getting medications? No 05/08 In the past 12 months, has l ack of transportation kept you from meetings, work, or from getting things needed for daily living? No 05/22/2023 Depression Answer Date Recor ded PHQ-9 Total Score (max 27) 5 07/06 Nutrition Answer Date Recorded On average, how many serving s of fruits and vegetables do you eat per day (serving size is equal to 1 cup or approximately the size of a tennis ball)? 0-2 05/22/2023 Dental Answer Date Recorded Dental: Regular Dentist Yes 05/22/19 Employment Answer Date Recorded Employment status Employed and actively working without restrictions 05/22/2023 Housing Stability Answer Date Recorded What is your living situation today? I have a [facility] place to live 05/22/2023 Education Answer Date Recorded What is the highest level of school you have completed or the highest degree you have received? Some college, no degree 05/24/2020 Sex and Gender Information Value Date Recorded Sex Assigned at Male 10/29/2020 12:38 PM CDT Gender Identity Male 07/15/2019 8:59 AM CDT Sexual Orientation Straight 07/15/2019 8: 59 AM CDT Last Filed Vital Signs Vital Sign Reading Time Taken Comments Blood Pressure 126/84 05/23/2023 8:08 AM CDT Pulse 91 05/23/2023 8:08 AM CDT Temperature 37.3 ??C (99.1 ??F) 01/20/2022 10:[address] Respiratory Rate 30 02/11/2021 10:10 AM CONSTRUCTION AND MAINTENANCE INSPECTOR Oxygen Saturation 99% 02/11/2021 10:15 AM CONSTRUCTION AND MAINTENANCE INSPECTOR Inhaled Oxygen Concentration - - Weight 65.8 kg (145 lb) 07/08/2023 9:50 AM CDT Height 185.4 cm (6' 1) 07/08/2023 9:50 AM CDT Body Mass Index 19.13 07/08/2023 9:50 AM CDT Plan of Treatment Upcoming Encounters Date Type Department Care Team (Late st Contact Info) Description 11/17/2023 9:30 AM CDT Clinical Support Department of Physical Medicine and Rehabilitation in [place], [place] [address] [place] [phone] Corrine Lewis P.A.-C., M.S. [address] [place] [phone] Bel Rojo P.T., D.P.T., OCS [address] [place] [phone] 11/29/2023 8:00 AM CDT Appointment Department of Orthopedic Surgery in [place], [place] [address] [place] [phone] Ahsan Talbert M.D., Ph.D. [address] [place] [phone] 01/06/2024 9:15 AM CONSTRUCTION AND MAINTENANCE INSPECTOR Office Visit Department of Orthopedic Surgery in [place], [place] [address] [place] [phone] Jose Crawford M.D. [address] [place] [phone] Medical Devices Implanted Type Area Board Setter Device Identifier Shelf Expiration Date Model / Serial / Lot Hardware E.G. Pins/Screws/R ods Hardware e.g. pins/screws/ rods Chest Wall [address] [employer]k Hip Mini 2.4x8.9 - [id number] Implanted:Qty : 1 on 02/13/2020 by Zoltan Haines M.D. at [facility] Hardware e.g. pins/screws/ rods Right: Hip Arthrex [id number] 11/06/2024 AR-2924PH S / / [id number] [address] Pk Hip Mini 2.4x8.9 - [id number] Implanted:Qty : 2 on 02/13/2020 by Zoltan Haines M.D. at [facility] Hardware e.g. pins/screws/ rods Right: Hip Arthrex [id number] 10/07/2024 AR-2924PH S / / [id number] [address] Pk Hip Mini 2.4x8.9 - [id number] Implanted:Qty : 1 on 02/13/2020 by Zoltan Haines M.D. at [facility] Hardware e.g. pins/screws/ rods Right: Hip Arthrex [id number] 07/07/2024 AR-2924PH S / / [id number] Kt Fix Intbrc Hnd Wrst - [id number] Implanted:Qty : 1 on 02/02/2021 by Jose Crawford M.D. at [facility] Hardware e.g. pins/screws/ rods Left: Wrist Arthrex [id number] 09/06/2025 [id number] P / / [id number] Procedures Procedure Name Priority Date/Time Associated Diagnosis Comments MR HIP ARTHROGRAM RIGHT RAD - Routine (most inpatients and all outpatients) 10/31/2023 11:15 AM CDT Pain Hip Right FL HIP ARTHROGRAM INJECTION RIGHT RAD - Routine (most inpatients and all outpatients) 10/31/2023 10:11 AM CDT Pain Hip Right CT HIP RIGHT WITHOUT IV CONTRAST RAD - Routine (most inpatients and all outpatients) 10/31/2023 9:21 AM CDT Pain Hip Right CA ARTHCS ASP/INJ MJR JT W US Routine 08/31/2023 4:00 PM CDT Pain Hip Left Pain Hip Right URO UROFLOW Routine 08/18/2023 1:45 PM CDT Frequency Urinary DIPSTICK, U Routine 08/18/2023 7:31 AM CDT PH, U Routine 08/18/2023 7:31 AM CDT MICROSCOPIC AUTOMATED Routine 08/18/2023 7:31 AM CDT OSMOLALITY, U Routine 08/18/2023 7:31 AM CDT URINALYSIS WITH MICROSCOPIC Routine 08/18/2023 7:31 AM CDT Frequency Urinary from Last 3 Months Results * MR Hip Arthrogram Right (10/31/2023 11:15 AM CDT) Anatomical Region Laterality Modality Lower Extremity, Hip, Muscul oskeletal RST LOS, Musculoskeletal ARZ LOS, Muskuloskeletal FLA LOS Right Magne tic Resonance Impressions 10/31/2023 11:44 AM CDT 1. ??Postsurgical changes about the right hip. Linear signal within the anterior superior labrum, representing changes from prior labral repair versus recurrent tear. 2. ??Cxav-hn-kmxrhvcd chondromalacia about the right lateral hip. 3. ??Intraosseous ganglion cyst/degenerative cystic changes about the acetabular roof. Narrative 10/31/2023 11:44 AM CDT EXAM: ??MR HIP ARTHROGRAM RIGHT COMPARISON: ??Right hip and pelvis radiograph 12/14/2022, CT of the right hip 10/31/2023 FINDINGS: ?? MR arthrogram of the right hip performed at [facility]. Images degraded by mild motion artifact. Postsurgical changes of osteoplasty of the right femoral neck and acetabular rim and right labral repair. Linear T2 hyperintense signal within the anterior superior labrum (series 6 image 18 and series 4 image 12), which may be related to changes from prior labral repair versus recurrent tear. Mild to moderate chondromalacia about the right lateral acetabular rim with joint space narrowing and chondral thinning. Subchondral intraosseous ganglion cyst versus degenerative cystic change within the acetabular roof (series 8 image 18) with mild overlying chondromalacia. No acute fracture or marrow replacing lesion. Patchy marrow signal heterogeneity, likely related to red marrow hyperplasia. Intact gluteal, proximal hamstring, rectus femoris, and iliopsoas tendons. Preserved muscle signal intensity. Visualized portions of the sciatic nerve are unremarkable. Procedure Note Chasity Jarrell M.D. - 10/31/2023 EXAM: MR HIP ARTHROGRAM RIGHT COMPARISON: Right hip and pelvis radiograph 12/14/2022, CT of the righthip 10/31/2023 FINDINGS: MR arthrogram of the right hip performed at [facility]. Images degraded bymild motion artifact. Postsurgical changes of osteoplasty of the right femoral neck andacetabular rim and right labral repair. Linear T2 hyperintense signalwithin the anterior superior labrum (series 6 image 18 and series 4 image12), which may be related to changes from prior labral repair versus recurrent tear. Mild to moderate chondromalaciaabout the right lateral acetabular rim with joint space narrowing andchondral thinning. Subchondral intraosseous ganglion cyst versusdegenerative cystic change within the acetabular roof (series 8 image 18) with mild overlying chondromalacia. No acute fracture or marrow replacing lesion. Patchy marrow signalheterogeneity, likely related to red marrow hyperplasia. Intact gluteal, proximal hamstring, rectus femoris, and iliopsoas tendons.Preserved muscle signal intensity. Visualized portions of the sciaticnerve are unremarkable. IMPRESSION: 1. Postsurgical changes about the right hip. Linear signal within theanterior superior labrum, representing changes from prior labral repairversus recurrent tear. 2. Rita-uo-haemfluc chondromalacia about the right lateral hip. 3. Intraosseous ganglion cyst/degenerative cystic changes about theacetabular roof. Candida Baltazar P.A.-C. IMG MRI PROCE MICHELE * FL Hip Arthrogram Injection Right (10/31/2023 10:11 AM CDT) Anatomical Region Laterality Modality Hip, Musculoskeletal RST LOS , Musculoskeletal ARZ LOS, Procedure FLA LOS, Muskuloskeletal FLA LOS Right Digital Rad iography Impressions 10/31/2023 10:21 AM CDT Successful fluoroscopically guided injection of the right hip joint for MR arthrogram. NR Narrative 10/31/2023 10:21 AM CDT EXAM: FL HIP ARTHROGRAM INJECTION RIGHT TECHNIQUE: Using sterile technique, local anesthesia with 1% lidocaine, and fluoroscopic guidance, a 22-gauge spinal needle was advanced into the patient's right hip joint. Intra-articular positioning was confirmed with a small injection of iodinated contrast. Subsequently, 12 mL of a mixture of 1:200 gadolinium solution containing iodinated contrast and normal saline was injected into the joint. The needle was removed and a bandage was placed. The patient tolerated the procedure well, without immediate complication. PREPROCEDURE: Patient seen, evaluated, and history reviewed. The risks, benefits, and alternatives for procedure were discussed with the patient, and informed consent was obtained. The patient's questions were answered. The patient understood the information presented. Immediately prior to starting the procedure, in the presence of the assisting personnel, a procedural pause was conducted to verify correct patient identity and verification of procedure to be performed, and, as applicable, the correct side and site were verified. The patient position, availability of implants, special equipment, and/or special requirements, and all image and specimen identification data were also confirmed, as necessary. The roles and responsibilities of care team members, including residents, fellows, and staff, was discussed with the patient. Procedure Note Emerson Mirza APRN, C.N.P., M.S.N. - 10/31/2023 EXAM: FL HIP ARTHROGRAM INJECTION RIGHT TECHNIQUE: Using sterile technique, local anesthesia with 1% lidocaine,and fluoroscopic guidance, a 22-gauge spinal needle was advanced into thepatient's right hip joint. Intra-articular positioning was confirmed witha small injection of iodinated contrast. Subsequently, 12 mL of a mixture of 1:200 gadolinium solutioncontaining iodinated contrast and normal saline was injected into thejoint. The needle was removed and a bandage was placed. The patienttolerated the procedure well, without immediate complication. PREPROCEDURE: Patient seen, evaluated, and history reviewed. The risks,benefits, and alternatives for procedure were discussed with the patient,and informed consent was obtained. The patient's questions were answered.The patient understood the information presented. Immediately prior to starting the procedure, in thepresence of the assisting personnel, a procedural pause was conducted toverify correct patient identity and verification of procedure to beperformed, and, as applicable, the correct side and site were verified. The patient position, availability ofimplants, special equipment, and/or special requirements, and all imageand specimen identification data were also confirmed, as necessary. Theroles and responsibilities of care team members, including residents, fellows, and staff, was discussed withthe patient. IMPRESSION: Successful fluoroscopically guided injection of the right hip joint for MRarthrogram. NR Candida Baltazar P.A.-C. IMG FLUOROSCO PY PROCEDURES * CT Hip Right without IV Contrast (10/31/2023 9:21 AM CDT) Anatomical Region Laterality Modality Lower Extremity, Hip, Muscul oskeletal RST LOS, Musculoskeletal ARZ LOS, Muskuloskeletal FLA LOS Right Computed Tomography, Compute d Tomography Impressions 10/31/2023 10:03 AM CDT 1. Postoperative changes of labral repair and head neck osteoplasty of the right hip. 2. Mild narrowing of the hip joint space anterosuperiorly with subtle subchondral sclerosis in the femoral head laterally and new small degenerative versus intraosseous ganglion cyst in the roof of the acetabulum. 3. Marked asymmetric atrophy of the right psoas muscle. Narrative 10/31/2023 10:03 AM CDT REVISED REPORT: EXAM: ??CT HIP RIGHT WITHOUT IV CONTRAST 3D images were created on an independent workstation ??with or without AI assistance as ordered by the treating provider and reviewed by the radiologist to assist in treatment planning. COMPARISON: ??Pelvis radiographs dated 12/14/[address] right hip dated 12/06/2019. FINDINGS: ??Unenhanced high-resolution CT of the right hip demonstrates postoperative changes of prior femoral head neck osteoplasty and labral repair. Mild residual bony prominence near the head neck junction of the femur posterolaterally. Mild hypertrophic changes of the acetabular rim. Mild narrowing of the hip joint space anterosuperiorly. Small intraosseous ganglion versus degenerative cyst in the roof of the acetabulum has developed since 12/06/2019. Mild subchondral sclerosis of the femoral head anterolaterally (series 11 images 31-32). Tiny focus of increased density/cortical irregularity along the anteromedial aspect of the femoral head could be related to postoperative or degenerative change (series 12 image 39 and series 3 image 271). Marked asymmetric atrophy of the right psoas muscle compared to the left. Mild asymmetric decrease in muscle bulk of the right iliacus and gluteal muscles. Decrease in acetabular anteversion with anteversion measuring approximately 8 degrees. Alpha angle is within normal limits measuring approximately 42 degrees. Femoral anteversion measures 16 degrees. Procedure Note Gini Osorio M.D. - 11/03/2023 REVISED REPORT: EXAM: CT HIP RIGHT WITHOUT IV CONTRAST 3D images were created on an independent workstation with or without AIassistance as ordered by the treating provider and reviewed by theradiologist to assist in treatment planning. COMPARISON: Pelvis radiographs dated 12/14/[address] right hip dated1. FINDINGS: Unenhanced high-resolution CT of the right hip demonstratespostoperative changes of prior femoral head neck osteoplasty and labralrepair. Mild residual bony prominence near the head neck junction of thefemur posterolaterally. Mild hypertrophic changes of the acetabular rim. Mild narrowing of the hipjoint space anterosuperiorly. Small intraosseous ganglion versusdegenerative cyst in the roof of the acetabulum has developed since12/06/2019. Mild subchondral sclerosis of the femoral head anterolaterally (series 11 images 31-32). Tiny focus ofincreased density/cortical irregularity along the anteromedial aspect ofthe femoral head could be related to postoperative or degenerative change(series 12 image 39 and series 3 image 271). Marked asymmetric atrophy of the right psoas muscle compared to theleft. Mild asymmetric decrease in muscle bulk of the right iliacus andgluteal muscles. Decrease in acetabular anteversion with anteversion measuringapproximately 8 degrees. Alpha angle is within normal limits measuringapproximately 42 degrees. Femoral anteversion measures 16 degrees. IMPRESSION: 1. Postoperative changes of labral repair and head neck osteoplasty of theright hip. 2. Mild narrowing of the hip joint space anterosuperiorly with subtlesubchondral sclerosis in the femoral head laterally and new smalldegenerative versus intraosseous ganglion cyst in the roof of theacetabulum. 3. Marked asymmetric atrophy of the right psoas muscle. Candida Baltazar P.A.-C. IMG CT PROCED URES * CA ARTHCS ASP/INJ MJR JT W (08/31/2023 4:00 PM CDT) Narrative MMODAL - 08/31/2023 4:00 PM CDT Armin Colvin M.D. ? 09/21/2023 ??6:33 AM Hip site - Bilat hip joint: injection only Performed by: Armin Colvin M.D. Authorized by: Candida Lucero P.A.-C. ?? Care team members present 1. Armin Colvin M.D. 2. Monica Castellanos M.S., L.A.T., A.T.C. PROCEDURE DETAILS Procedure Location hip Hip site - Bilat hip joint Procedure performed: injection only Ultrasound image guidance used to localize target, identify at risk structures, and dynamically used to direct therapy to the target. Image(s) acquired and saved. Pre-procedure image guidance used to localize target and identify at risk structures, and plan approach and site was marked using indelible marker Procedural Medication The following medications were administered at the target site(s) On the right: Local anesthetic: 4 mL lidocaine (PF) 10 mg/mL (1 %); 5 mL ROPivacaine (PF) 5 mg/mL (0.5 %) On the left: Local anesthetic: 4 mL lidocaine (PF) 10 mg/mL (1 %); 5 mL ROPivacaine (PF) 5 mg/mL (0.5 %) CONSENT Consent obtained: written (Risks, benefits and alternatives were discussed and a written Informed Consent was obtained. Please see Informed Consent form for further details.) UNIVERSAL PROTOCOL All relevant documentation and testing were reviewed and available. All required blood products, implants, devices and or special equipment were made available as applicable. Pre-procedure verification was conducted and the correct site was marked if required. A fire risk assessment was done as applicable. The procedural time-out to verify correct patient, correct side/site, and procedure was conducted prior to performing the procedure and confirmed in a procedural pause. PRE-PROCEDURE DETAILS Appropriate hand hygiene, gown, cap, mask, protective eyewear, sterile gloves, skin preparation, sterile drape, and strict aseptic technique were utilized as applicable for the procedure. Site preparation: chlorhexidine/alcohol SEDATION / ANESTHESIA Anesthesia method: local infiltration Candida Baltazar P.A.-C. PROCEDURE/MIN OR SURGICAL ORDERABLES MMODAL NA * URO Uroflow (08/18/2023 1:45 PM CDT) Narrative Tato Pedroza M.D. - 08/18/2023 1:45 PM CDT Tato Pedroza M.D. ? 08/19/2023 ??8:03 AM REASON FOR VISIT: Uroflow: The patient here for a complex uroflow via calibrated electronic equipment and a residual urine check by ultrasound. FINDINGS: Peak flow 9 ml/sec Average flow 3 ml/sec Total voided volume 32 mls Residual urine 750 ml by ultrasound Valsalva flow pattern IMPRESSION: Elevated postvoid residual with low Qmax. ??Differential diagnosis includes bladder outlet obstruction versus hypocontractile bladder. Clinical correlation is recommended. Tam Clark M.D. UROLOGY ORDERABLES * Dipstick, Urine (08/18/2023 7:31 AM CDT) Hemoglobin, QL, U Negative Negative 08/18/2023 7:58 AM CDT DTL Leukocyte Esterase, U Negative Negative 08/18/2023 7:58 AM CDT DTL Nitrite, U Negative Negative 08/18/2023 7:58 AM CDT DTL Ketone, U Negative Negative mg/dL 08/18/2023 7:58 AM CDT DTL Glucose, U Negative Negative mg/dL 08/18/2023 7:58 AM CDT DTL Urine 08/18/2023 7:31 AM CDT 08/18/2023 7:41 AM CDT Tam Clark M.D. LAB URINE ORDERABLES [facility] [address] [place] [address], [facility] [address] * Microscopic Automated (08/18/2023 7:31 AM CDT) Pathologist [facility] Microscopy Normal 08/18/2023 7:58 AM CDT DTL RBC None Seen <3 /hpf 08/18/2023 7:58 AM CDT DTL WBC None Seen /hpf 08/18/2023 7:58 AM CDT DTL Comment: ----REFERENCE VALUE---- <4 ??(Males) <11 (Females) Urine 08/18/2023 7:31 AM CDT 08/18/2023 7:41 AM CDT Tam Clark M.D. LAB URINE ORDERABLES [facility] [address] [place], [place] [phone] [place] [address] [facility] [address] [place] [address] * pH, Urine (08/18/2023 7:31 AM CDT) Pathologist [facility] pH, U 6.1 4.5 - 8.0 08/18/2023 8:5 9 AM CDT DTL Urine 08/18/2023 7:31 AM CDT 08/18/2023 7:41 AM CDT Tam Clark M.D. LAB URINE ORDERABLES Performing Organization Address City/[facility]/ZIP Co de Phone Number [facility] [address] [place], [place] [phone] [place] [address] 200 [place] [address] * Osmolality, Urine (08/18/2023 7:31 AM CDT) Pathologist [facility] Osmolality, U 356 150 - 1150 mOsm/kg 08/18/2023 8:59 AM CDT DT Urine 08/18/2023 7:31 AM CDT 08/18/2023 7:41 AM CDT aTm Clark M.D. LAB URINE ORDERABLES Performing Organization Address City/[facility]/ZIP Co de Phone Number [facility] [address] [place], [place] [phone] [place] [address] 200 [place] [address] * Urinalysis, with Microscopic: Urine, Midstream (08/18/2023 7:31 AM CDT) Source Urine, Urine, Midstream 08/18/2023 7:41 AM CDT DTL Color, U Yellow 08/18/2023 7:41 AM CDT DTL Clarity, U Clear 08/18/2023 7:41 AM CDT DTL Protein, U 4 <26 mg/dL 08/18/2023 8:28 AM CDT DTL Protein/Osmol ality 0.11 <0.42 ratio 08/18/2023 8:59 AM CDT DTL Predicted 24 HR Protein, U 117 <229 mg/24 h 08/18/2023 8:59 AM CDT DTL Predicted Range 37-369 mg/24 h 08/18/2023 8:59 AM CDT DTL Urine (Urine, Midstream) 08/18/2023 7:31 AM CDT 08/18/2023 7:41 AM CDT Tam Clark M.D. LAB URINE ORDERABLES [facility] [address] [place] [address], [facility] [place] [place] [address] [place] [address] from Last 3 Months Care Teams Knockout Machine Operator Relationship Specialty Start Date End Date Elsewhere, Pcp PCP - General Internal Medicine 05/22/18
--- OUTSIDE RECORDS SUMMARY | 2023-11-08 15:11 | XMS_ITS | Clinical Summary ---
Author Organization [facility] Address [address] [place] [address] Care Team Providers Care Talent Development Specialist Name Role Phone Elsewhere, Pcp Primary Care Provider Unavailabl e Source Comments Patient records contain information from all sites at [facility]. For routine questions regarding patient records, call [phone] during business hours, M-F 8:00 AM - 5:00 PM Central Time. 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 Pain Wrist Left (Primary Dx); Pain Wrist Right 11/07/2023 10:00 AM CDT Comprehensive Visit Department of Physical Medicine and Rehabilitation in [place], [place] [address] [place] [phone] Candida Lucero P.A.-C. Lee, Madeline M, P.T., D.P.T., OCS Pain Hip Left [M25.552] (Primary Dx); Pain Hip Right 11/07/2023 7:54 AM CDT - 11/07/2023 8:34 AM CDT Hospital Encounter Department of Orthopedic Surgery in [place], [place] [address] [place] [phone] Kushal Mendieta M.D. Hevesi, Mario, M.D., Ph.D. Mobility Limited (Primary Dx); Pain Hip Left; Hypermobility Joint Discharge Disposition: Home or Self Care 11/07/2023 Clinical Communication Department of Sports Medicine in [place], [place] [address] [place] [phone] Ahsan Talbert M.D., Ph.D. Order Needed Today 11/07/2023 Orders Only Department of Orthopedic Surgery in [place], [place] [address] [place] [phone] Candida Lucero P.A.-C. Pain Hip Left (Primary Dx) 10/31/2023 9:08 AM CDT - 10/31/2023 11:59 PM CDT Hospital Encounter Department of Radiology, [facility] in [place], [place] [address] [place] [phone] Candida Lucero, P.A.-C. Pain Hip Right Discharge Disposition: Home or Self Care 10/31/2023 9:08 AM CDT - 10/31/2023 11:59 PM CDT Hospital Encounter Department of Radiology, [facility], in [place], [place] [address] [place] [phone] Candida Lucero P.A.-C. Pain Hip Right Discharge Disposition: Home or Self Care 10/31/2023 8:45 AM CDT - 10/31/2023 9:07 AM CDT Hospital Encounter Department of Radiology, [facility], in [place], [place] [address] [place] [phone] Candida Lucero, P.A.-C. Pain Hip Right Discharge Disposition: Home or Self Care 10/25/2023 Orders Only Department of Orthopedic Surgery in [address] [phone] Candida Lucero P.A.-CMackenzie Pain Hip Right (Primary Dx) 10/25/2023 Clinical Communication Department of Sports Medicine in [place], [place] [address] [place] [phone] Ahsan Talbert M.D., Ph.D. 10/25/2023 Orders Only Department of Orthopedic Surgery in [place], [place] [address] [place] [phone] Candida Lucero P.A.-C. Pain Hip Right (Primary Dx) 10/24/2023 1:15 PM CDT Telemedicine Department of Sports Medicine in [place], [place] [address] [place] [phone] Ahsan Talbert M.D., Ph.D. Pain Hip Right (Primary Dx) 10/24/2023 Orders Only Department of Orthopedic Surgery in [place], [place] [address] [place] [phone] Ahsan Talbert M.D., Ph.D. 10/13/2023 Orders Only Department of Orthopedic Surgery in [place], [place] [address] [place] [phone] Mike Salomon Jr., P.A.-C. Pain Wrist Left (Primary Dx) 09/19/2023 11:00 AM CDT Virtual Visit Department of Social Work in [place], [place] [address] [place] [phone] Candida Lucero P.A.-C. Aisha Foster M.S.Emiliana, L.I.C.S.W. Pain Hip Bilateral 09/19/2023 Documentation RST RO [facility] Aisha Foster M.S.Emiliana, L.I.C.S.W. 09/16/2023 Clinical Communication Department of Sports Medicine in [place], [place] [address] [place] [phone] Ahsan Talbert M.D., Ph.D. 09/15/2023 8:00 AM CDT Telemedicine Department of Sports Medicine in [place], [place] [address] [place] [phone] Ahsan Talbert M.D., Ph.D. Pain Hip Bilateral (Primary Dx) 09/13/2023 3:45 PM CDT Clinical Communication Virtual Review in [address] [place] [phone] Pre-visit Intake 09/01/2023 1:00 PM CDT Telemedicine Department of Urology in [address] [phone] Kate Egan P.A.-C. Retention Urinary (Primary Dx); Dysfunction Pelvic Floor Male 08/31/2023 4:00 PM CDT Procedure visit Department of Sports Medicine in [address] [phone] Armin Colvin M.D. Pain Hip Left; Pain Hip Right 08/24/2023 Orders Only Department of Urology in [address] [phone] Kate Egan P.A.-C. 08/23/2023 Clinical Communication Department of Sports Medicine in [address] [phone] Ahsan Talbert M.D., Ph.D. 08/18/2023 1:45 PM CDT Procedure visit Department of Urology in [address] [phone] Tam Clark M.D. Alissa Mckinley, L.P.N. Retention Urinary (Primary Dx); Frequency Urinary 08/18/2023 10:30 AM CDT Comprehensive Visit Department of Physical Medicine and Rehabilitation in [address] [phone] Corrine Lewis P.A.-C., M.S. Bel Rojo, P.T., D.P.T., OCS Spasm Muscle (Primary Dx); Pain Pelvic Male 08/18/2023 8:00 AM CDT Comprehensive Visit Department of Urology in [address] [phone] Kate Egan P.A.-CMackenzie Frequency Urinary (Primary Dx); Hesitancy Urinary 08/18/2023 7:00 AM CDT - 08/18/2023 11:59 PM CDT Hospital Encounter Department of Laboratory Medicine and Pathology, [facility], in [place], [place] [address] [place] [phone] Tam Clark M.D. Frequency Urinary Discharge Disposition: Home or Self Care from Last 3 Months Family History Medical History Relation Name Comments Alcohol abuse Father irais dolan Asthma Father irais dolan Depression Mother randall henriquez Relation Name Status Comments Father irais dolan Mother randall henriquez Social History Tobacco Use Types Packs/Day Years Used Date Smoking Tobacco: Never Smokeless Tobacco: Never Tobacco Cessation:Counseling Given: Not Answered Alcohol Use Standard Drinks/Week Comments Yes 1 (1 standard drink = 0.6 oz pur e alcohol) [facility] Utilities Answer Date Recorded In the past 12 months has e electric, gas, oil, or water [employer] threatened to shut off services in your [...] often do you attend chur ch or hinduism services? More than 4 times per year 2022 Do you belong to any clubs o r organizations such as mormonism groups, unions, fraternal or athletic groups, or [...] Answer Date Recorded PHQ-2 Score 0 07/07/2023 [facility] - Occupational Stress Questionnaire Answer Date Recorded [...] Date Recorded Dental: Regular Dentist Yes 05/22/19 24 Employment Answer Date Recorded Employment status Employed and actively working without restrictions 05/22/2023 Housing Stability Answer Date Recorded What is your living situation today? I have a [facility] place to live 05/22/2023 Education Answer [...] ST Respiratory Rate 30 02/11/2021 10:10 AM ELECTRONIC GAME DEVELOPER Oxygen Saturation 99% 02/11/2021 10:15 AM ELECTRONIC GAME DEVELOPER Inhaled Oxygen Concentration - - Weight 65.8 kg (145 lb) 07/08/2023 9:50 AM CDT Height 185.4 cm (6' 1) 07/08/2023 9:50 AM CDT Body Mass Index 19.13 07/08/2023 9:50 AM CDT Plan of Treatment Upcoming Encounters Date Type Department Care Team (Late st Contact Info) Description 11/17/2023 9:30 AM CDT Clinical Support Department of Physical Medicine and Rehabilitation in [place], [place] [address] [place] [phone] Corrine Lewis P.A.-C., M.S. [address] [place] [phone] Bel Rojo P.T., D.P.T., OCS [address] [place] [phone] 11/29/2023 8:00 AM CDT Appointment Department of Orthopedic Surgery in [place], [place] [address] [place] [phone] Ahsan Talbert M.D., Ph.D. [address] [place] [phone] 01/06/2024 9:15 AM ELECTRONIC GAME DEVELOPER Office Visit Department of Orthopedic Surgery in [place], [place] [address] [place] [phone] Jose Crawford M.D. [address] [place] [phone] Health Maintenance Due Date Last Done Comments Hepatitis C Screening 2000 COVID-19 Vaccine ( season) 2023 04/16/2022, 02/18/2021, 08/15/2020, Additional history exists DTaP,Tdap,and Td Vaccines (7 - Td or Tdap) 11/19/2032 11/19/2022, 09/22/2012, 11/11/2004, Additional history exists Pneumococcal vaccine (0-64 years) Aged Out 04/21/2001, 01/12/2001, 2000 No longer eligible based on patient's age to complete this topic Hepatitis B Vaccines Completed 10/20/2001, 01/12/2001, 2000 HPV Vaccines Completed 10/28/2020, 02/08, 10/19/2019 Depression Screening (Annual PHQ-2) Completed 07/07/2023 Influenza Vaccine Completed 11/02/2023, , 04/16/2022, Additional history exists Medical Devices Implanted Type Area Director Ehs Device Identifier Shelf Expiration Date Model / Serial / Lot Hardware E.G. Pins/Screws/R ods Hardware e.g. pins/screws/ rods Chest Wall [employer] Hip Mini 2.4x8.9 - [id number] Implanted:Qty : 1 on 02/13/2020 by Zoltan Haines M.D. at [facility] Hardware e.g. pins/screws/ rods Right: Hip Ar[employer] [id number] 11/06/2024 AR-2924PH S / / [id number] [employer] [address] [employer]k Hip Mini 2.4x8.9 - [id number] Implanted:Qty : 2 on 02/13/2020 by Zoltan Haines M.D. at [facility] Hardware e.g. pins/screws/ rods Right: Hip Ar[employer]rex [id number] 10/07/2024 AR-2924PH S / / [id number] [employer] [address] [employer]k Hip Mini 2.4x8.9 - [id number] Implanted:Qty : 1 on 02/13/2020 by Zoltan Haines M.D. at [facility] Hardware e.g. pins/screws/ rods Right: Hip Ar[employer]rex [id number] 07/07/2024 AR-2924PH S / / [id number] Kt Fix Intbrc Hnd Wrst - [id number] Implanted:Qty : 1 on 02/02/2021 by Jose Crawford M.D. at [facility] Hardware e.g. pins/screws/ rods Left: Wrist Arthrex [id number] 09/06/2025 AR-8978-C P / / [id number] Procedures Procedure Name Priority Date/Time Associated Diagnosis [...] 10/31/2023 9:21 AM CDT Pain Hip Right OK ARTHCS ASP/INJ MJR JT W US Routine [...] prior labral repair versus recurrent tear. 2. ??Qfoz-oc-umqfnkdi chondromalacia about the right lateral hip. 3. [...] from prior labral repairversus recurrent tear. 2. Lbyv-eh-uvtkuigz chondromalacia about the right lateral hip. 3. [...] Baltazar P.A.-C. IMG CT PROCED URES * OK ARTHCS ASP/INJ MJR JT W US (08/31/2023 4:00 PM CDT) Narrative MMODAL - 08/31/2023 4:00 PM CDT Armin Colvin M.D. ? 09/21/2023 ??6:33 AM Hip site - Bilat hip joint: injection only Performed by: Armin Colvin M.D. Authorized by: Candida Lucero P.A.-C. ?? Care team members present 1. Arimn Colvin M.D. 2. Monica Castellanos M.Iggy, L.A.T., A.T.C. PROCEDURE DETAILS Procedure Location hip [...] M.D. LAB URINE ORDERABLES Performing Organization Address City/[facility]/ZIP Co de Phone Number [facility] [address] [place] [address], [facility] [address] [place] [address] * Microscopic Automated (08/18/2023 7:31 AM CDT) Microscopy Normal 08/18/2023 7:58 AM CDT DTL RBC None Seen <3 /hpf 08/18/2023 7:58 AM CDT DTL WBC None Seen /hpf 08/18/2023 7:58 AM CDT DTL Comment: ----REFERENCE VALUE---- <4 ??(Males) <11 (Females) Urine 08/18/2023 7:31 AM CDT 08/18/2023 7:41 AM CDT Tam Clark M.D. LAB URINE ORDERABLES Performing Organization Address City/[facility]/ZIP Co de Phone Number [facility] [address] [place] [address], [facility] [address] [place] [address] * pH, Urine (08/18/2023 7:31 AM CDT) Pathologist [facility] pH, U 6.1 4.5 - 8.0 08/18/2023 8:5 9 AM CDT DTL Urine 08/18/2023 7:31 AM CDT 08/18/2023 7:41 AM CDT Tam Clark M.D. LAB URINE ORDERABLES [facility] [address] [place] [address], [facility] [address] [place] [address] * Osmolality, Urine (08/18/2023 7:31 AM CDT) Osmolality, U 356 150 - 1150 mOsm/kg 08/18/2023 8:59 AM CDT DTL Urine 08/18/2023 7:31 AM CDT 08/18/2023 7:41 AM CDT Tam Clark M.D. LAB URINE ORDERABLES Performing Organization Address City/[facility]/ZIP Co de Phone Number [facility] [address] [place] [address], [facility] DTL [facility] [address] [place] [address] * Urinalysis, with Microscopic: Urine, Midstream (08/18/2023 [...] M.D. LAB URINE ORDERABLES Performing Organization Address City/[facility]/ZIP Co de Phone Number [facility] [address] [place] [address], [facility] DTL [facility] [address] [place] [address] from Last 3 Months Care Teams Talent Development Specialist Relationship Specialty Start Date End Date Elsewhere, Pcp PCP - General Internal Medicine 05/22/18
--- OUTSIDE RECORDS SUMMARY | 2023-11-08 15:11 | XMS_ITS | Clinical Summary ---
Author Organization [facility] [place] [facility] Address [address] [place] [phone] Care Team Providers Care Director Hematology Name Role Phone NanyelizabethEliana Arie Primary Care Physician Encounter Date(s): 09/05/23 - 09/05/[address] [phone] Encounter Diagnosis Hip pain(Discharge Diagnosis) - 09/05/23 Discharge Disposition: Home or Self Care Attending Physician: Pat Perez MD Admitting Physician: Pat Perez MD Referring Physician: Self Nonphysicianreferral Allergies, Adverse Reactions, Alerts No Known Allergies Discharge Medications famotidine (famotidine 40 mg oral tablet) Status: Ordered Start Date: 09/05/23 gabapentin Status: Ordered Start Date: 11/15/17 patient unsure of dose. tamoxifen (tamoxifen 20 mg o ral tablet) Status: Ordered Start Date: 09/05/23 Problem List Condition Confirmation Course Effective Dates Status Health St atus Informant Pectus excavatum Confirmed Active patie nt Scoliosis Confirmed Active patient Hospital Discharge Diagnosis Hip pain(Discharge Diagnosis) - 09/05/23 (This Visit) Immunizations Given and Recorded Vaccine [...] Most recent to oldest [Reference Range]: 1 Height/Length Measured 188.2 cm (09/05/23 9:17 AM) Weight Measured 68.3 kg (09/05/23 9:17 AM) Weight Dosing 68.3 kg (09/05/23 9:17 AM) BSA Measured 1.89 m2 (09/05/23 9:17 AM) Body Mass Index Measured 19.28 kg/m2 (09/05/23 9:17 AM) Pain Present Yes actual or suspec steven pain (09/05/23 10:16 AM) Able to self report Yes (09/05/23 10:16 AM) able to use numeric rating scale Yes (09/05/23 10:16 AM) Primary Pain Location Left, Right, Hip (09/05/23 10:16 AM) Primary Pain Quality Aching, Sharp, Stabbing (09/05/23 10:16 AM) Social History Social History Type Response Tobacco Never (less than 100 in lifetime), Exposure to Secondhand Smoke: No. Sex Sex Representation Male (finding) Treatment Plan Future Appointments Appointment Date:10/21/2023 10:10:00 AM Scheduled Provider:Jennifer Sams MD Location:[facility] - Clinic Appointment Type:Orthopedics Hip Preservation - New Patient Care team information Personnel Name: Eliana Guerra MD Address: [address]
--- OUTSIDE RECORDS SUMMARY | 2023-11-08 15:11 | XMS_ITS | Clinical Summary ---
Author Organization 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
--- OUTSIDE RECORDS SUMMARY | 2023-11-08 15:11 | XMS_ITS ---
Author Organization [facility] Address [address] [place] [address] Care Team Providers Care Battery Engineer Name Role Phone Unavailable Unavailable Unavailable Surgery Details Not on file Complications Check Surgery Details section. Procedure Estimated Blood Loss Check Surgery Details section. Procedure Findings Check Surgery Details section. Procedure Specimens Taken Check Surgery Details section.
--- OUTSIDE RECORDS SUMMARY | 2023-11-08 15:12 | XMS_ITS | Encounter Summary ---
Author Organization [facility] [place] Address [address] [place] [address] Care Team Providers Care Guzzler Builder Name Role Phone Elsewhere, Pcp Primary Care Provider Unavailabl e Reason for Visit * Physical Therapy (Routine) - Closed Specialty Diagnoses / Procedures Referred By Ye lund Referred To Contact Diagnoses Pain Wrist Left Procedures PT or OT eval and treat (first available) Mike Salomon Jr., Raymon.A.-CMackenzie [address] [place] [phone] [facility] Referral ID Status Reason Start Date Expiration Date Visits Re quested Visits Authorized [id number] Closed 10/13/2023 10/12/2024 1 1 Encounter Details Date Type Department Care Team (Latest Contact Info) Description 11/07/2023 1:00 PM CDT Comprehensive Visit Department of Physical Medicine and Rehabilitation in [place], [place] [address] [place] [phone] Mike Salomon Jr., P.A.-C. [address] [place] [phone] Irish White P.T., D.P.T. [address] [place] [phone] Pain Wrist Left (Primary Dx); Pain Wrist Right Social History Tobacco Use Types Packs/Day Years Used Date Smoking Tobacco: Never Smokeless Tobacco: Never Alcohol Use Standard Drinks/Week Comments Yes 1 (1 standard drink = 0.6 oz pur e alcohol) [facility] Utilities Answer Date Recorded In the past 12 months has th e [employer], [employer], oil, or water [employer] threatened to shut off services in your [...] 2022 How often do you attend chur or tenriism services? More than 4 times per year 2022 Do you belong to any clubs o r organizations such as yazidi groups, unions, fraternal or athletic groups, or [...] Answer Date Recorded PHQ-2 Score 0 07/07/2023 [facility] of Occupat ional [facility] - Occupational Stress Questionnaire Answer Date Recorded [...] money to buy more. Never true 05/22/19 Within the past 12 months, t he [...] your living situation today? [facility] 05/22/2023 Education Answer Date Recorded What is the highest level of school you have completed or the highest degree you have received? Some college, no degree 05/24/2020 Sex and Gender Information Value Date Recorded Sex Assigned at Male 10/29/2020 12:38 PM CDT Gender Identity Male 07/15/2019 8:59 AM CDT Sexual Orientation Straight 07/15/2019 8: 59 AM CDT documented as of this encounter Progress Notes * Irish White P.T., D.P.T. - 11/07/2023 1:00 PM CDT Hand Therapy Outpatient Treatment During this hand therapy session, these additional providers assisted: and No additional providers assisted during today's therapy session. SUBJECTIVE Patient's Name: Paramjit Boyce Referring Provider: Mike Salomon Jr.,* Reason for referral: Bilateral wrist splints with history of bilateral midcarpal instability History of Present Illness: Patient is a 23 year old male with history of bilateral midcarpal instability with left midcarpal stabilization on 02/02/21. He continues with pain and discomfort at his right wrist and was interested in pursuing care home casting; he does not want surgical intervention for his right wrist at this time due to limitations in motion following his left midcarpal stabilization surgery. He was placed in a thumb spica long arm cast on 04/15/23, which was removed on 05/23/23. Patient also requests immobilization for his left hand as he previously had success with this. Patient is referred to hand therapy for bilateral wrist splints. 11/07/23: Patient is referred back to hand therapy for daytime wrist orthoses. Patient expresses that his current delta orthoses work well, but are too bulky for daytime use. This is especially true as he has a new hip spica cast and needs to be able to use bilateral upper extremities for transfers. Rehab Diagnosis: 1. Pain Wrist Left 2. 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 Right Pectus Excavatum Atrophy Testis Other Abnormal Findings In Specimens From Other Organs Systems And Tissues Pain Hip Bilateral Tear Hip Labral Degenerative Right Pain Joint Foot Bilateral Polyarthralgia Foot Drop Left DeQuervain's Tenosynovitis Pain Wrist Left Other Symptoms And Signs Involving The Musculoskeletal System Klinefelter's Syndrome (HCC) Deformity Chest Acquired Primary Exertional Headache Scoliosis Systemic Involvement Of Connective Tissue Unspecified (HCC) Underweight Pes Planus Congenital Headache Tension Myofascial Pain Syndrome Temporomandibular Joint Disorder Tinnitus Bilateral Hypermobility Joint Past Surgical History: Procedure Laterality Date ARTHROSCOPY HIP Right 02/13/2020 Procedure: Hip Scope with Capsulorrhaphy; Surgeon: Zoltan Haines M.D.; Location: [facility] OR ARTHROSCOPY OSTEOPLASTY FEMORAL NECK HIP Right 02/13/2020 Procedure: Osteoplasty Femoral Neck and Acetabular Rim.; Surgeon: Zoltan Haines M.D.; Location: [facility] OR OTHER SURGICAL HISTORY ryan bar PECTUS EXCAVATUM - RYAN PROCEDURE 10/26/2017 REMOVAL PECTUS BAR N/A 02/11/2021 Procedure: REMOVAL PECTUS BAR.; Surgeon: Eyad Burns M.D., Ph.D.; Location: [facility] REPAIR ARTHROSCOPY LABRAL HIP Right 02/13/2020 Procedure: Hip Scope Labral Repair, Fractional Psoas Lengthening; Surgeon: Zoltan Haines M.D.; Location: [facility] OR REPAIR CARPAL LIGAMENT WRIST Left 02/02/2021 Procedure: wrist arthroscopy, midcarpal stabilization.; Surgeon: Jose Crawford M.D.; Location:[facility] OR Precautions/Restrictions: No precautions/restrictions. Total Outpatient Visit Count in Hand Therapy: 3 Patient is well known to hand therapy for fabrication of various upper extremity orthoses. Subjective Comments from the Patient: Patient expresses that he would like a thermoplastic thumb spica that also supports the wrist. Occupational Profile: Hand Dominance: , Right hand dominant Patient lives with family and has assistance. 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 Patient has a goal of becoming a PA. Current functional limitations include: The patient has difficulties performing daily occupations due to limited use of the involved extremity. OBJECTIVE Review of Symptoms: History obtained from chart review and the patient Physical Exam: Pain did not limit this therapy session. Appearance: No change in appearance of the involved extremity. Edema: No visible or palpable edema Active Range of Motion: Right Wrist Flexion: 64 degrees Wrist Extension: 89 degrees Wrist Radial Deviation: 20 degrees Wrist Ulnar Deviation: 24 degrees Forearm Supination: 82 degrees Forearm Pronation: 84 degrees Strength & Coordination: Academy Director Strength: (average 3) R: 104lb L: 114lb Fall Assessment: The patient is under 65, the fall risk assessment was not completed. Skilled Therapy Intervention Performed Today: In hand therapy today, the following interventions were performed: Orthotic Fabrication/Fitting: Orthosis Fabrication: The patient was appropriately assessed for the orthosis. This therapist fabricated a right and left forearm based volar thumb spica with IP free. The orthosis was fabricated from thermoplastics materials and secured with rivets and velcro hook. The patient will wear the orthosis as needed during the day. The patient was instructed in wear and care of the orthosis/orthoses. Ensured patient is able to don and doff orthoses independently. The patient was provided the following handouts: , Splint Receipt [id number] Assessment Clinical Impression: The patient tolerated the session with no adverse reactions to this therapy session. The patient verbalized understanding to the self management program. The patient verbalized understanding of the orthotic wear schedule, and the patient is independent with donning/doffing the orthosis. The patient reports the orthosis is comfortable. Rehab Potential: Mr. Boyce has Fair potential to achieve established therapy goals within the time frame outlined below, provided he actively participates in his therapy treatment plan and home program. Evaluation Considerations: L-Code billed only Hand Therapy Goals and Timeframes: The patient/caregiver will verbalize understanding of the orthotic wearing schedule and caring for the orthosis. Date 08/08/23. Goal in progress The patient/caregiver will verbalize understanding of the self-management program following each therapy session. Goal in progress The severity of Mr. Boyce's functional limitation will be re-assessed within the next 10 visits. Plan Mr. Boyce was educated regarding evaluative findings, diagnosis, prognosis, potential risks and benefits of rehabilitation interventions. A collaborative effort was used to establish goals and planof care. He was informed of his right to make decisions regarding his care, including refusal of examination or treatment or selection of therapy services from another provider if desired. The treatment plan may be progressed or modified based upon his response to treatment. Treatment Plan: Start of Plan of Care: 05/23/23 Number of Visits: 1-5 visits in hand therapy. Duration: through January 2024 Return Physician Appointment: with 01/06/24 Dr. Crawford' service Plan for Next Session: Patient will continue with a home management program. She/He has our contactinformation if questions or concerns arise. The patient may return as needed for orthotic adjustments. Treatment interventions may include: Orthosis: Right delta cast short arm orthosis Left delta cast long arm with thumb spica orthosis Bilateral forearm based volar thumb spica orthoses Physical Therapy Time Spent with Patient Occupational Therapy Time Spent with Patient LCode: 60 (minutes). This is additional time spent with the patient that was not accounted in the total time spent with this patient. Irish White P.T., D.P.T. documented in this encounter Plan of Treatment Upcoming Encounters Date Type Department Care Team (Late st Contact Info) Description 11/17/2023 9:30 AM CDT Clinical Support Department of Physical Medicine and Rehabilitation in [address] [phone] Corrine Lewis P.A.-C., M.S. [address] [place] [phone] Bel Rojo P.T., D.P.T., OCS [address] [place] [phone] 11/29/2023 8:00 AM CDT Appointment Department of Orthopedic Surgery in [address] [phone] Ahsan Talbert M.D., Ph.D. [address] [place] [phone] 01/06/2024 9:15 AM PERFECT BIND MACHINE OPERATOR Office Visit Department of Orthopedic Surgery in [address] [phone] Jose Crawford M.D. [address] [place] [phone] documented as of this encounter Visit Diagnoses Diagnosis Pain Wrist Left- Primary Pain Wrist Right documented in this encounter Additional Health Concerns Assessment Noted Time PHQ-9 Depression Total Score: 5 07/07/19 24 9:17 PM CDT documented as of this encounter Care Teams Guzzler Builder Relationship Specialty Start Date End Date Elsewhere, Pcp PCP - General Internal Medicine 05/22/18 documented as of this encounter
--- OUTSIDE RECORDS SUMMARY | 2023-11-08 15:12 | XMS_ITS | Encounter Summary ---
Author Organization [facility] Address [address] [place] [address] Care Team Providers Care Finishing Range Supervisor Name Role Phone Elsewhere, Pcp Primary Care Provider Unavailabl e Reason for Referral * Outpatient (Routine) - Closed Specialty Diagnoses / Procedures Referred By Ye lund Referred To Contact Diagnoses Pain Hip Right Procedures FL Hip Arthrogram Injection Right Candida Lucero P.A.-C. [address] [place] [phone] [facility] Referral ID Status Reason Start Date Expiration Date Visits Re quested Visits Authorized [id number] Closed 10/24/2023 10/23/2024 1 1 Reason for Visit * Outpatient (Routine) - Closed Specialty Diagnoses / Procedures Referred By Ye lund Referred To Contact Diagnoses Pain Hip Right Procedures FL Hip Arthrogram Injection Right Candida Lucero P.A.-C. [address] [place] [phone] [facility] Referral ID Status Reason Start Date Expiration Date Visits Re quested Visits Authorized [id number] Closed 10/24/2023 10/23/2024 1 1 Encounter Details Date Type Department Care Team (Latest Contact Info) Description 10/31/2023 9:08 AM CDT - 10/31/2023 11:59 PM CDT Hospital Encounter Department of Radiology, [facility], in [place], [place] [address] [place] [phone] Candida Lucero P.A.-C. 200 [place] [phone] Pain Hip Right Discharge Disposition: Home or Self Care Social History Tobacco Use Types Packs/Day Years Used Date Smoking Tobacco: Never Smokeless Tobacco: Never Alcohol Use Standard Drinks/Week Comments Yes 1 (1 standard drink = 0.6 oz pur e alcohol) [facility] Utilities Answer Date Recorded In the past 12 months has e [employer], gas, oil, or water [employer] threatened to shut off services in your [...] often do you attend chur ch or buddhist services? More than 4 times per year 2022 Do you belong to any clubs o r organizations such as synagogue groups, unions, fraternal or athletic groups, or [...] Answer Date Recorded PHQ-2 Score 0 07/07/2023 [facility] - Occupational Stress Questionnaire Answer Date [...] your living situation today? I have a [facility] place to live 05/22/2023 Education Answer [...] AM CDT documented as of this encounter Medications at Time of Discharge Medication Sig Dispensed Refills Start Date End Date famotidine (PEPCID) 40 mg tablet Take 40 mg by mouth 2 (two) times a day. tadalafiL (Cialis) 5 mg tablet Take 1 tablet (5 mg total) by mouth daily. 90 tablet 07/11/2023 tamoxifen (NOLVADEX) 20 mg tablet Take 1 tablet (20 mg total) by mouth daily. Swallow whole; do not split, chew, or crush. Take with or without food. 90 tablet 06/07/2023 documented as of this encounter Plan of Treatment Upcoming Encounters Date Type Department Care Team (Late st Contact Info) Description 11/17/2023 9:30 AM CDT Clinical Support Department of Physical Medicine and Rehabilitation in [place], [place] [address] [place] [phone] Corrine Lewis P.A.-Lonnie., M.S. [address] [place], [place] [phone] Bel Rojo P.T., D.P.T., OCS 200 [place] [phone] 11/29/2023 8:00 AM CDT Appointment Department of Orthopedic Surgery in [place], [place] [address] [place] [phone] Ahsan Talbert M.D., Ph.D. [address] [place], [place] [phone] 01/06/2024 9:15 AM ADULT PSYCHIATRIST Office Visit Department of Orthopedic Surgery in [place], [place] [address] [place] [phone] Jose Crawford M.D. [address] [place] [phone] documented as of this encounter Procedures Procedure Name Priority Date/Time Associated Diagnosis Comments FL HIP ARTHROGRAM INJECTION RIGHT RAD - Routine (most inpatients and all outpatients) 10/31/2023 10:11 AM CDT Pain Hip Right documented in this encounter Results * FL Hip Arthrogram Injection Right (10/31/2023 [...] Candida Baltazar P.A.-C. IMG FLUOROSCO PY PROCEDURES documented in this encounter Visit Diagnoses Diagnosis Pain Hip Right documented in this encounter Administered Medications Inactive Administered Medications - up to 3 most recent administrations Medication Order MAR Action Action Date Dose Rate Site gadobutrol injection (Gadavist) As needed, Starting on Tue10/31/23 at 1004, Intra-Op Given 10/31/2023 10:04 AM CDT 0.1 mL Right Hip iohexoL 300 mg iodine/mL solution (Omnipaque) As needed, Starting on Tue10/31/23 at 1004, Intra-Op Given 10/31/2023 10:04 AM CDT 5 mL Right Hip lidocaine (PF) 10 mg/mL (1 %) injection (Xylocaine) As needed, Starting on Tue10/31/23 at 1002, Intra-Op Given 10/31/2023 10:02 AM CDT 5 mL Right Hip sodium chloride (PF) 0.9 % injection As needed, Starting on Tue10/31/23 at 1029, Intra-Op Given 10/31/2023 10:29 AM CDT 10 mL Right Hip Given 10/31/2023 10:04 AM CDT 10 mL R ight Hip documented in this encounter Additional Health Concerns Assessment Noted Time PHQ-9 Depression Total Score: 5 07/07/19 24 9:17 PM CDT documented as of this encounter Care Teams Finishing Range Supervisor Relationship Specialty Start Date End Date Elsewhere, Pcp PCP - General Internal Medicine 05/22/18 documented as of this encounter
--- OUTSIDE RECORDS SUMMARY | 2023-11-08 15:12 | XMS_ITS | Encounter Summary ---
Author Organization [facility] Address [address] [place] [phone] Care Team Providers Care Automotive Artist Name Role Phone Elsewhere, Pcp Primary Care Provider Unavailabl e Encounter Details Date Type Department Care Team (Late st Contact Info) Description 10/24/2023 Orders Only Department of Orthopedic Surgery in [place], [place] [address] [place] [phone] Ahsan Talbert M.D., Ph.D. [address] [place] [phone] Social History Tobacco Use Types Packs/Day Years Used Date Smoking Tobacco: Never Smokeless Tobacco: Never Alcohol Use Standard Drinks/Week Comments Yes 1 (1 standard drink = 0.6 oz pur e alcohol) [facility] Utilities Answer Date Recorded In the past 12 months has e electric, gas, oil, or water [employer] threatened to shut off services in your [...] often do you attend chur ch or mandaen services? More than 4 times per year 2022 Do you belong to any clubs o r organizations such as amish groups, unions, fraternal or athletic groups, or [...] Answer Date Recorded PHQ-2 Score 0 07/07/2023 [facility] Questionnaire Answer Date [...] your living situation today? I have a [facility] place to live 05/22/2023 Education Answer Date [...] AM CDT documented as of this encounter Plan of Treatment Upcoming Encounters Date Type Department Care Team (Late st Contact Info) Description 11/17/2023 9:30 AM CDT Clinical Support Department of Physical Medicine and Rehabilitation in [place], [place] [address] [place] [phone] Corrine Lewis P.A.-C., M.S. [address] [place] [phone] Bel Rojo P.T., D.P.T., OCS [address] [place] [phone] 11/29/2023 8:00 AM CDT Appointment Department of Orthopedic Surgery in [place], [place] [address] [place] [phone] Ahsan Talbert M.D., Ph.D. [address] [place] [phone] 01/06/2024 9:15 AM HSPT TUTOR Office Visit Department of Orthopedic Surgery in [place], [place] [address] [place] [phone] Jose Crawford M.D. [address] [place] [phone] documented as of this encounter Visit Diagnoses Not on filedocumented in this encounter Additional Health Concerns Assessment Noted Time PHQ-9 Depression Total Score: 5 07/07/19 24 9:17 PM CDT documented as of this encounter Care Teams Automotive Artist Relationship Specialty Start Date End Date Elsewhere, Pcp PCP - General Internal Medicine 05/22/18 documented as of this encounter
--- OUTSIDE RECORDS SUMMARY | 2023-11-08 15:12 | XMS_ITS | Encounter Summary ---
Author Organization [facility] Address [address] [place] [address] Care Team Providers Care English Professor Name Role Phone Elsewhere, Pcp Primary Care Provider Unavailabl e Reason for Referral * MRI/CAT/PET Scan (Routine) - Closed Specialty Diagnoses / Procedures Referred By Contac t Referred To Contact Radiology Diagnoses Pain Hip Right Procedures MR Hip Arthrogram Right Candida Lucero P.A.-C. [address] [place] [phone] [facility] Referral ID Status Reason Start Date Expiration Date Visits Re quested Visits Authorized [id number] Closed 10/24/2023 10/23/2024 1 1 Reason for Visit * MRI/CAT/PET Scan (Routine) - Closed Specialty Diagnoses / Procedures Referred By Contac t Referred To Contact Radiology Diagnoses Pain Hip Right Procedures MR Hip Arthrogram Right Candida uLcero P.A.-C. [address] [place] [phone] [facility] Referral ID Status Reason Start Date Expiration Date Visits Re quested Visits Authorized [id number] Closed 10/24/2023 10/23/2024 1 1 Encounter Details Date Type Department Care Team (Latest Contact Info) Description 10/31/2023 9:08 AM CDT - 10/31/2023 11:59 PM CDT Hospital Encounter Department of Radiology, [facility], in [place], [place] [address] [place] [phone] Candida Lucero P.A.-C. [address] [place] [phone] Pain Hip Right Discharge Disposition: Home or Self Care Social History Tobacco Use Types Packs/Day Years Used Date Smoking Tobacco: Never Smokeless Tobacco: Never Alcohol Use Standard Drinks/Week Comments Yes 1 (1 standard drink = 0.6 oz pur e alcohol) [facility] Utilities Answer Date Recorded In the past 12 months has e [employer], gas, oil, or water [employer] threatened to shut off services in your [...] often do you attend chur ch or synagogue services? More than 4 times per year 2022 Do you belong to any clubs o r organizations such as worship groups, unions, fraternal or athletic groups, or [...] Answer Date Recorded PHQ-2 Score 0 07/07/2023 [facility] [place] of Occupat ional Health - Occupational Stress [...] your living situation today? I have a [facility] place to live 05/22/2023 Education Answer [...] Department of Physical Medicine and Rehabilitation in [place], [place] [address] [place] [phone] Corrine Lewis P.A.-C., M.S. [address] [place] [phone] Bel Rojo P.T., D.P.T., OCS [address] [place] [phone] 11/29/2023 8:00 AM CDT Appointment Department of Orthopedic Surgery in [place], [place] [address] [place] [phone] Ahsan Talbert M.D., Ph.D. [address] [place], [place] [phone] 01/06/2024 9:15 AM MANAGER STYLIST Office Visit Department of Orthopedic Surgery in [place], [place] [address] [place] [address] Jose Crawford M.D. [address] [place] [phone] documented as of this encounter Procedures Procedure Name Priority Date/Time Associated Diagnosis Comments MR HIP ARTHROGRAM RIGHT RAD - Routine (most inpatients and all outpatients) 10/31/2023 11:15 AM CDT Pain Hip Right documented in this encounter Results * MR Hip Arthrogram Right (10/31/2023 11:15 AM CDT) Anatomical Region Laterality Modality Lower Extremity, Hip, Muscul oskeletal RST LOS, Musculoskeletal ARZ LOS, Muskuloskeletal FLA LOS Right Magne tic Resonance Impressions 10/31/2023 11:44 AM CDT 1. ??Postsurgical changes about the right hip. Linear signal within the anterior superior labrum, representing changes from prior labral repair versus recurrent tear. 2. ??Dddn-mc-emipdibt chondromalacia about the right lateral hip. 3. [...] from prior labral repairversus recurrent tear. 2. Fffr-sv-ytishqts chondromalacia about the right lateral hip. 3. Intraosseous ganglion cyst/degenerative cystic changes about theacetabular roof. Candida Baltazar P.A.-C. IMG MRI RAGHU BAUTISTA documented in this encounter Visit Diagnoses Diagnosis Pain Hip Right documented in this encounter Additional Health Concerns Assessment Noted Time PHQ-9 Depression Total Score: 5 07/07/19 24 9:17 PM CDT documented as of this encounter Care Teams English Professor Relationship Specialty Start Date End Date Elsewhere, Pcp PCP - General Internal Medicine 05/22/18 documented as of this encounter
--- OUTSIDE RECORDS SUMMARY | 2023-11-08 15:12 | XMS_ITS | Encounter Summary ---
Author Organization [facility] Address [address] [place] [address] Care Team Providers Care Air Brush Operator Name Role Phone Elsewhere, Pcp Primary Care Provider Unavailabl e Reason for Referral * Physical Therapy (Routine) - Closed Specialty Diagnoses / Procedures Referred By Ye lund Referred To Contact Diagnoses Pain Wrist Left Procedures PT or OT eval and treat (first available) Mike Salomon Jr., P.A.-C. [address] [place] [phone] [facility] Referral ID Status Reason Start Date Expiration Date Visits Re quested Visits Authorized [id number] Closed 10/13/2023 10/12/2024 1 1 Encounter Details Date Type Department Care Team (Late st Contact Info) Description 10/13/2023 Orders Only Department of Orthopedic Surgery in [place], [place] [address] [place] [phone] Mike Salomon Jr., P.A.-C. [address] [place] [phone] Pain Wrist Left (Primary Dx) Social History Tobacco Use Types Packs/Day Years Used Date Smoking Tobacco: Never Smokeless Tobacco: Never Alcohol Use Standard Drinks/Week Comments Yes 1 (1 standard drink = 0.6 oz pur e alcohol) [facility] Utilities Answer Date Recorded In the past 12 months has [employer], gas, oil, or water company threatened to shut off services in your [...] week 2022 How often do you attend [facility] or restorationism services? More than 4 times per year 2022 Do you belong to any clubs o r organizations such as christianity groups, unions, fraternal or athletic groups, or [...] Answer Date Recorded PHQ-2 Score 0 07/07/2023 [facility] [place] of Occupat ional Health - Occupational Stress [...] your living situation today? I have a [facility] place to live 05/22/2023 Education Answer Date [...] Department of Physical Medicine and Rehabilitation in [place], [place] [address] [place] [phone] Corrine Lewis P.A.-C., M.S. [address] [place] [phone] Bel Rojo P.T., D.P.T., OCS [address] [place] [phone] 11/29/2023 8:00 AM CDT Appointment Department of Orthopedic Surgery in [address] [phone] Ahsan Talbert M.D., Ph.D. [address] [place] [phone] 01/06/2024 9:15 AM ELECTRIC INSTALLER Office Visit Department of Orthopedic Surgery in [address] [phone] Jose Crawford M.D. [address] [place] [phone] documented as of this encounter Visit Diagnoses Diagnosis Pain Wrist Left- Primary documented in this encounter Additional Health Concerns Assessment Noted Time PHQ-9 Depression Total Score: 5 07/07/19 24 9:17 PM CDT documented as of this encounter Care Teams Air Brush Operator Relationship Specialty Start Date End Date Elsewhere, Pcp PCP - General Internal Medicine 05/22/18 documented as of this encounter
--- OUTSIDE RECORDS SUMMARY | 2023-11-08 15:12 | XMS_ITS | Encounter Summary ---
Author Organization [facility] Address [address] [place] [address] Care Team Providers Care Dry Mixer Name Role Phone Elsewhere, Pcp Primary Care Provider Unavailabl e Encounter Details Date Type Department Care Team (Late st Contact Info) Description 11/07/2023 Orders Only Department of Orthopedic Surgery in [place], [place] [address] [place] [phone] Candida Lucero P.A.-C. [address] [place] [phone] Pain Hip Left (Primary Dx) Social History Tobacco Use Types Packs/Day Years Used Date Smoking Tobacco: Never Smokeless Tobacco: Never Alcohol Use Standard Drinks/Week Comments Yes 1 (1 standard drink = 0.6 oz pur e alcohol) [facility] Utilities Answer Date Recorded In the past 12 months has [facility] electric, gas, oil, or water [employer] threatened to shut off services in your [...] often do you attend chur ch or gnosticist services? More than 4 times per year 2022 Do you belong to any clubs o r organizations such as temple groups, unions, fraternal or athletic groups, or [...] Answer Date Recorded PHQ-2 Score 0 07/07/2023 [facility] of Occupat ional Health - Occupational Stress [...] your living situation today? I have a [facility] place to live 05/22/2023 Education Answer [...] Department of Physical Medicine and Rehabilitation in [place], [place] [address] [place] [phone] Corrine Lewis P.A.-C., M.S. [address] [place] [phone] Bel Rojo P.T., D.P.T., OCS [address] [place] [phone] 11/29/2023 8:00 AM CDT Appointment Department of Orthopedic Surgery in [place], [place] [address] [place] [phone] Ahsan Talbert M.D., Ph.D. [address] [place] [phone] 01/06/2024 9:15 AM LIMOUSINE AND HEARSE UPHOLSTERER Office Visit Department of Orthopedic Surgery in [place], [place] [address] [place] [phone] Jose Crawford M.D. [address] [place] [phone] documented as of this encounter Visit Diagnoses Diagnosis Pain Hip Left- Primary documented in this encounter Additional Health Concerns Assessment Noted Time PHQ-9 Depression Total Score: 5 07/07/19 24 9:17 PM CDT documented as of this encounter Care Teams Dry Mixer Relationship Specialty Start Date End Date Elsewhere, Pcp PCP - General Internal Medicine 05/22/18 documented as of this encounter
--- OUTSIDE RECORDS SUMMARY | 2023-11-08 15:12 | XMS_ITS | Encounter Summary ---
Author Organization [facility] Address [address] [place] [address] Care Team Providers Care Parking Patroller Name Role Phone Elsewhere, Pcp Primary Care Provider Unavailabl e Reason for Referral * Physical Therapy (Routine) - Closed Specialty Diagnoses / Procedures Referred By Contac t Referred To Contact Diagnoses Pain Hip Right Procedures PT Evaluate and treat Candida Lucero P.A.-C. [address] [place] [phone] [facility] Referral ID Status Reason Start Date Expiration Date Visits Re quested Visits Authorized [id number] Closed 10/25/2023 10/24/2024 1 1 * Outpatient (Routine) - Authorized Specialty Diagnoses / Procedures Referred By Ye lund Referred To Contact Sports Medicine Diagnoses Pain Hip Right Candida Lucero P.A.-C. [address] [place] [phone] [facility] Referral ID Status Reason Start Date Expiration Date V isits Requested Visits Authorized [id number] Authorized 10/25/2023 04/25/2025 1 1 Scheduling Instructions He[facility] Orders Encounter Details Date Type Department Care Team (Late st Contact Info) Description 10/25/2023 Orders Only Department of Orthopedic Surgery in [place], [place] [address] [place] [phone] Candida Lucero P.A.-C. 200 [place] [phone] Pain Hip Right (Primary Dx) Social History Tobacco Use Types Packs/Day Years Used Date Smoking Tobacco: Never Smokeless Tobacco: Never Alcohol Use Standard Drinks/Week Comments Yes 1 (1 standard drink = 0.6 oz pur e alcohol) [facility] Utilities Answer Date Recorded In the past 12 months has e [employer], gas, oil, or water [employer] threatened to shut off services in your [...] often do you attend chur ch or roman catholic services? More than 4 times per year 2022 Do you belong to any clubs o r organizations such as bahai groups, unions, fraternal or athletic groups, or [...] Answer Date Recorded PHQ-2 Score 0 07/07/2023 [facility] - Occupational Stress Questionnaire Answer Date [...] your living situation today? I have a [facility] place to live 05/22/2023 Education Answer Date [...] Department of Physical Medicine and Rehabilitation in [place], [place] [address] [place] [phone] Corrine Lewis P.A.-C., M.S. [address] [place] [phone] Bel Rojo P.T., D.P.T., OCS [address] [place] [phone] 11/29/2023 8:00 AM CDT Appointment Department of Orthopedic Surgery in [place], [place] [address] [place] [phone] Ahsan Talbert M.D., Ph.D. [address] [place] [phone] 01/06/2024 9:15 AM ENGLISH AS A SECOND LANGUAGE INSTRUCTOR Office Visit Department of Orthopedic Surgery in [place], [place] [address] [place] [phone] Jose Crawford M.D. [address] [place] [phone] Scheduled Referrals Name Type Priority Associated Diagnoses Order Schedule Sports Medicine - PT/AT Eval and Treat Outpatient Referral Routine Pain Hip Right 1 Occurrences starting 10/25/2023 until 01/23/2025 documented as of this encounter Visit Diagnoses Diagnosis Pain Hip Right- Primary documented in this encounter Additional Health Concerns Assessment Noted Time PHQ-9 Depression Total Score: 5 07/07/19 24 9:17 PM CDT documented as of this encounter Care Teams Parking Patroller Relationship Specialty Start Date End Date Elsewhere, Pcp PCP - General Internal Medicine 05/22/18 documented as of this encounter
--- OUTSIDE RECORDS SUMMARY | 2023-11-08 15:12 | XMS_ITS | Encounter Summary ---
Author Organization [facility] Address [address] [place] [address] Care Team Providers Care Flatcar Whacker Name Role Phone Elsewhere, Pcp Primary Care Provider Unavailabl e Encounter Details Date Type Department Care Team (Latest Contact Info) Description 09/19/2023 Documentation RST RO Aisha Cleveland M.S.W., L.I.C.S.W. [address] [place] [address] Social History Tobacco Use Types Packs/Day Years Used Date Smoking Tobacco: Never Smokeless Tobacco: Never Alcohol Use Standard Drinks/Week Comments Yes 1 (1 standard drink = 0.6 oz pur e alcohol) [facility] Utilities Answer Date Recorded In the past 12 months has e [employer], gas, oil, or water [employer] threatened to shut off services in your [...] How often do you attend chur or buddhism services? More than 4 times per year 2022 Do you belong to any clubs o r organizations such as cheondoism groups, unions, fraternal or athletic groups, or [...] Answer Date Recorded PHQ-2 Score 0 07/07/2023 [facility] of Occupat ional Health - Occupational Stress [...] your living situation today? I have a [facility] place to live 05/22/2023 Education Answer [...] AM CDT documented as of this encounter Consult Notes * Aisha Foster L.I.C.S.W., M.S.W. - 09/19/2023 11:10 AM CDT SUBJECTIVE Patient is a 23-year-old single male from [place], [place] ([place], [place]). Patient was [facility] by Candida Christian PA-C, midlevel in Orthopedic Surgery for support/help following adult hip spica case placement. Chart review shows that patient has Klinefelter's syndrome. Patient is also status post RIGHT Total Hip Arthroplasty on 02/13/2020. As of 09/15/23, patient has not trialed HKAFO brace per documentation of Ahsan Talbert MD, PhD on 09/15/23. Dr. Talbert also noted on 09/15/23 that patient has not been able to trial HKAFO brace yet. He is hoping to begin using this brace soon as it has been approved by his insurance. probation worker called patient. Patient reports that he will not be able to cook or clean once case is placed. Patient reports that he has been told by a friend of his that he should be inpatient on night. Patient reports that Dr. Talbert advised patient that his insurance would not authorized inpatient one night. Patient is concerned about the possibility of his circulation being cut off once in case. probation worker re-directed patient back to Dr. Talbert in Orthopedic Surgery for any medical questions concerning cast. Patient also states that the self-catheterizes three times daily. Patient reports that his mother works. probation worker probation worker did gently advise patient that the type of ass istance he is looking for is considered unskilled care, i.e. personal property appraiser services which arenot reimbursed by health insurance. probation worker recommended that patient call [facility] ([phone] & [facility] [place] to inquire about services. probation worker informed patient that older adult social work specialist would send portal message with contact numbers for [facility] ([phone] & [facility] [place] along with questions he should ask each agency. Patient does not think that he will be able to afford personal property appraiser (STEEL ROLLER) services; unfortunately, this wouldbe patient's only option. Health insurance does not reimburse personal property appraiser (STEEL ROLLER) services. probation worker also mailed pamphlets for [facility] & [facility] [place]. Pamphlets describe the personal property appraiser (STEEL ROLLER) services that they provide. Please see plan below. CHIEF COMPLAINT / REASON FOR VISIT patient was [facility] by Candida Christian PA-C, midlevel in Orthopedic Surgery for support/help following adult hip spica case placement. HISTORY OF PRESENT ILLNESS #1 Left hip pain with likely MARLENI #2 Status post right hip arthroscopy with Dr. Haines on 02/13/2020 Please see EMR for further details of patient's past medical history. OBJECTIVE INSURANCE: [facility] HMO = [facility] MEDICAID PLAN = SINGLE PAYOR SOURCE ASSESSMENT / PLAN ASSESSMENT Patient is a 23-year-old single male from [place], [place] ([place], [place]). Patient is cooperative, forthcoming and appears to be a reliable historian. Patient is alert and oriented X 4. Mood is euthymic. Patient has a full range of affect. Judgement and insight are good as evidenced by appropriate, help-seeking behavior. Speech is of a normal volume, rate and rhythm. Patient's thought process is linear and goal directed. Patient's thought content is devoid of any perceptual disturbance. Patient [facility] by Candida Christian PA-C, midlevel in Orthopedic Surgery for support/help following adult hip spica case placement. Chart review shows that patient has Klinefelter's syndrome. Patient is also status post RIGHT Total Hip Arthroplasty on 02/13/2020. As of 09/15/23, patient has not trialed HKAFO brace per documentation of Ahsan Talbert MD, PhD on 09/15/23. Dr. Talbert also noted on 09/15/23 that patient has not been able to trial HKAFO brace yet. He is hoping to begin using this brace soon as it has been approved by his insurance. probation worker called patient. Patient reports that he will not be able to cook or clean once case is placed. Patient reports that he has been told by a friend of his that he should be inpatient on night. Patient reports that Dr. Talbert advised patient that his insurance would not authorized inpatient one night. Patient is concerned about the possibility of his circulation being cut off once in case. probation worker re-directed patient back to Dr. Talbert in Orthopedic Surgery for any medical questions concerning cast. Patient also states that the self-catheterizes three times daily. Patient reports that his mother works. probation worker probation worker did gently advise patient that the type of ass istance he is looking for is considered unskilled care, i.e. personal property appraiser services which arenot reimbursed by health insurance. probation worker recommended that patient call [facility] ([phone] & [facility] [place] to inquire about services. probation worker informed patient that older adult social work specialist would send portal message with contact numbers for [facility] ([phone] & [facility] [place] along with questions he should ask each agency. Patient does not think that he will be able to afford personal property appraiser (STEEL ROLLER) services; unfortunately, this wouldbe patient's only option. Health insurance does not reimburse personal property appraiser (STEEL ROLLER) services. probation worker also mailed pamphlets for [facility] & [facility] [place]. Pamphlets describe the personal property appraiser (STEEL ROLLER) services that they provide. Please see plan below. PLAN CAST PLACEMENT: Patient to have Spica cast placed on 11/07/23 at 3:30 PM. HOME HEALTH AGENCIES: Patient will call [facility] & [facility] to inquire about cost ofpersonal neonatal intensive care unit nurse (STEEL ROLLER) services. Patient has been informed that personal property appraiser (STEEL ROLLER) services are not reimbursed by health insurance and will be an psu-zc-[id number] cost to patient. PORTAL MESSAGE: probation worker sent portal message with the following information: [facility] [email or web address] [facility] [place] [email or web address] & other things you bake/[email or web address]/home I recommend that you ask to be connected to the respective offices closest to [place], [place]. civil engineer's aide (STEEL ROLLER) services are not reimbursed by health insurance and are an lem-mq-eoqnsg payment for the patient. The above listed home health agencies accept vwd-qo-sulbhs payment for personal property appraiser (STEEL ROLLER) services; however, you will need to call and inquire about staffing availability;whether they require a minimum number of hours per day to staff case; and potential start of care date. You will need to inquire as to whether the respective offices service [place], [place]. This older adult social work specialist remains available to assist patient with any other issues of concern and apprised patient of same. Leo Bertrand, M.S.W. 09/19/2023 documented in this encounter Plan of Treatment Upcoming Encounters Date Type Department Care Team (Late st Contact Info) Description 11/17/2023 9:30 AM CDT Clinical Support Department of Physical Medicine and Rehabilitation in [place], [place] [address] [place] [phone] Corrine Lewis P.A.-C., M.S. [address] [place] [phone] Bel Rojo P.T., D.P.T., OCS [address] [place] [phone] 11/29/2023 8:00 AM CDT Appointment Department of Orthopedic Surgery in [place], [place] [address] [place] [phone] Ahsan Talbert M.D., Ph.D. [address] [place] [phone] 01/06/2024 9:15 AM ASSOCIATE AGENT INSURANCE SALES Office Visit Department of Orthopedic Surgery in [place], [place] [address] [place] [phone] Jose Crawford M.D. [address] [place] [phone] documented as of this encounter Visit Diagnoses Not on filedocumented in this encounter Additional Health Concerns Assessment Noted Time PHQ-9 Depression Total Score: 5 07/07/19 24 9:17 PM CDT documented as of this encounter Care Teams Flatcar Whacker Relationship Specialty Start Date End Date Elsewhere, Pcp PCP - General Internal Medicine 05/22/18 documented as of this encounter
--- OUTSIDE RECORDS SUMMARY | 2023-11-08 15:12 | XMS_ITS | Encounter Summary ---
Author Organization [facility] Address [address] [place] [phone] Care Team Providers Care Group Fitness Manager Name Role Phone Elsewhere, Pcp Primary Care Provider Unavailabl e Encounter Details Date Type Department Care Team (Late st Contact Info) Description 10/25/2023 Clinical Communication Department of Sports Medicine in [place], [place] [address] [place] [phone] Ahsan Talbert M.D., Ph.D. [address] [place] [phone] Social History Tobacco Use Types Packs/Day Years Used Date Smoking Tobacco: Never Smokeless Tobacco: Never Alcohol Use Standard Drinks/Week Comments Yes 1 (1 standard drink = 0.6 oz pur e alcohol) [facility] Utilities Answer Date Recorded In the past 12 months has e Yellow [employer], gas, oil, or water [employer] threatened to shut off services in your [...] often do you attend chur ch or taoist services? More than 4 times per year 2022 Do you belong to any clubs o r organizations such as orthodox groups, unions, fraternal or athletic groups, or [...] Answer Date Recorded PHQ-2 Score 0 07/07/2023 [facility] [...] Department of Physical Medicine and Rehabilitation in [place], [place] [address] [place] [phone] Corrine Lewis P.A.-C., M.S. [address] [place] [phone] Bel Rojo P.T., D.P.T., OCS [address] [place] [phone] 11/29/2023 8:00 AM CDT Appointment Department of Orthopedic Surgery in [place], [place] [address] [place] [phone] Ahsan Talbert M.D., Ph.D. [address] [place] [phone] 01/06/2024 9:15 AM SUPERINTENDENT CONSTRUCTION Office Visit Department of Orthopedic Surgery in [place], [place] [address] [place] [phone] Jose Crawford M.D. [address] [place] [phone] documented as of this encounter Visit Diagnoses Not on filedocumented in this encounter Additional Health Concerns Assessment Noted Time PHQ-9 Depression Total Score: 5 07/07/19 24 9:17 PM CDT documented as of this encounter Care Teams Group Fitness Manager Relationship Specialty Start Date End Date Elsewhere, Pcp PCP - General Internal Medicine 05/22/18 documented as of this encounter
--- OUTSIDE RECORDS SUMMARY | 2023-11-08 15:12 | XMS_ITS | Encounter Summary ---
Author Organization [facility] Address [address] [place] [phone] Care Team Providers Care Fast Food Manager Name Role Phone Elsewhere, Pcp Primary Care Provider Unavailabl e Reason for Visit * Physical Therapy (Routine) - Closed Specialty Diagnoses / Procedures Referred By Ye lund Referred To Contact Diagnoses Pain Hip Right Procedures PT Evaluate and treat Candida Lucero P.A.-C. [address] [place] [phone] [facility] Referral ID Status Reason Start Date Expiration Date Visits Re quested Visits Authorized [id number] Closed 10/25/2023 10/24/2024 1 1 Encounter Details Date Type Department Care Team (Latest Contact Info) Description 11/07/2023 10:00 AM CDT Comprehensive Visit Department of Physical Medicine and Rehabilitation in [place], [place] [address] [place] [phone] Candida Lucero P.AMackenzie-Kathya [address] [place] [address] [phone] Marilyn Vergara PSyed., D.P.T., OCS [address] [place] [address] [phone] Pain Hip Left [M25.552] (Primary Dx); Pain Hip Right Social History Tobacco Use Types Packs/Day Years Used Date Smoking Tobacco: Never Smokeless Tobacco: Never Alcohol Use Standard Drinks/Week Comments Yes 1 (1 standard drink = 0.6 oz pur e alcohol) [facility] Utilities Answer Date Recorded In the past 12 months has th e electric, gas, oil, or water [employer] threatened to shut off services in your [...] How often do you attend chur or holiness services? More than 4 times per year 2022 Do you belong to any clubs o r organizations such as jainism groups, unions, fraternal or athletic groups, or [...] Answer Date Recorded PHQ-2 Score 0 07/07/2023 [facility] - [facility] Stress Questionnaire Answer Date [...] your living situation today? I have a [facility] place to live 05/22/2023 Education [...] as of this encounter Consult Notes * Marilyn Vergara P.T., LeighannP.T., [facility] - 11/07/2023 10:00 AM CDT Physical Therapy Musculoskeletal Outpatient Evaluation and Treatment By co-signing this note, the provider certifies the therapy being provided to this patient is reasonable and necessary for the diagnosis or treatment of this patient. SUBJECTIVE Patient's Name: Paramjit Boyce Referring Provider: Candida Lucero P.A.-C. Medical Diagnosis: 1. Pain Hip Left [M25.552] 2. Pain Hip Right Reason for Referral: Gait Training Payor: [employer] [place] CARE / Plan: [employer] HMO / Product Type: Medicaid HMO / [place] Visit Count: 1 PT Next Certification Date: 02/05/24 PERTINENT MEDICAL / SURGICAL HISTORY: Patient Active Problem List Diagnosis Hypogonadism Male [...] BAR.; Surgeon: Eyad Burns M.D., Ph.D.; Location: [facility] ROMB OR REPAIR ARTHROSCOPY LABRAL HIP Right 02/13/2020 Procedure: Hip Scope Labral Repair, Fractional Psoas Lengthening; Surgeon: Zoltan Haines M.D.; Location: [facility] 15 OR REPAIR CARPAL LIGAMENT WRIST Left 02/02/2021 Procedure: wrist arthroscopy, midcarpal stabilization.; Surgeon: oJse Crawford M.D.; Location:[facility] 15 OR Paramjit Boyce is a 23 y.o. male who presents to outpatient physical therapy for evaluation. He was just casted with a hip spica cast for his left hip. He reports the right hip is more painful and he has a tentative plan to consider a GUILLERMO up in the [facility] for this. He reports he usually wears AFOs but did not wear them today due to not knowing what the cast would look like. His symptoms consist of widespread instability and pain throughout his body. He has tried casting for his wrists and knees in the past with good results. This lead to him wanting to pursue this episode of casting. Prior Function/Occupational Profile: Level of [place]: independent (limited to standing <10 minutes due to pain). 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 Type of home: single level home, 1 step to enter without railing. Tub shower with no seat, no grab bars, standard height toilet Exercise/Activity Level: pickleball, walking Has a rx for wheelchair and walker, has crutches at home Patient goals:Learning transfers and ambulation with new cast OBJECTIVE Review of Systems/Diagnostic Tests History obtained from chart review and the patient General ROS: negative Please refer to EMR for imaging reports Outcome Measures: Score: Measures - Tools Patient-Specific Functional Scale Activity #1 Score: 3 Activity #2 Score: 2 Activity #3 Score: 5 Activity #1: standing more than 15 minutes Activity #2: ultimate frisbee Activity #3: walking more than 1 mile Sum of Activity Scores: 10 PHYSICAL EXAM Gait: Patient arrives in a transport wheelchair Equipment: no gait aid Transfers: able to complete transfers independently with use of hands Shoewear/orthoses: new left hip spica cast spanning up to the lower ribcage and down to the mid calf, holding left knee in about 30 degrees flexion Balance: able to maintain balance without hand support in widened stance Posture: limited hip flexion/extension due to cast Sensation: reports no deficits Lower extremity range of motion: within functional limits on right, reports discomfort in right hip Lower extremity strength: within functional limits on right, upper extremities within functional limits TREATMENT Treatment today consisted of: Therapeutic Activity/Gait Training: Patient was instructed in use of appropriate assistive device with new mobility restrictions with left hip spica cast. Patient demonstrated the ability to transfer, ambulate, and negotiate stairs with maintaining activity restrictions safely. We completed and trained the following with patient progressing to modified independent with all of the below: - stand pivot transfer to the right with walker - sit to/from stand transfers with walker and crutches - ambulation with walker and crutches - single curb step with walker (x 2 with forward ascent/descent and x 1 with backwards ascent/forward descent) - single curb step x 2 with crutches - bed mobility with and without use of belt to assist as leg shoe designer - verbal education for car transfers - floor transfers for safe recovery if he were to fall - wheelchair propulsion with right leg and bilateral arm use. Recommendation to look into adult tall walker due to his height. Recommendation to find wheelchair with elevating leg rest for left side Recommendation for manufactured buildings repairer/grabber to assist with grabbing things from the floor. HEP (for right leg): Access Code: [email or web address] URL: [email or web address] Date: 11/07/2023 Prepared by: Marilyn Exercises - Supine Ankle Pumps - 2-3 x daily - 7 x weekly - 10 reps - Seated Long Arc Quad - 2 x daily - 7 x weekly - 10 reps - Seated March - 2 x daily - 7 x weekly - 10 reps - Seated Hip Abduction with Resistance - 2 x daily - 7 x weekly - 10 reps Home Exercise Program/Education: Patient instructed in home exercise program with cues for proper independent completion of exercises by end of session. All patient questions were answered to the best of my ability. The following patient education materials were provided today: Visible Measures: Paper copy provided to patient Assessment Clinical Impression: Mr. Boyce presents to physical therapy for evaluation and recommendations in the setting of new left hip spica cast. Examination findings were significant for weakness, imbalance, which leads to functional limitations including difficulty with transfers, stairs, community navigation. Patient was instructed in use of gait aid, home exercise program, and transfers/mobility training . Patient was agreeable to the above plan of care and appreciative of our session. They had no further questions or concerns and felt goals were met. Recommend continued therapy locally, likely with home health. Rehab Potential: Mr. Boyce has Fair potential to achieve established physical therapy goals within the time frame outlined below, provided he actively participates in his physical therapy treatmentplan and home program. Comorbid Conditions: Other (Comment) (see EMR) Personal Factors: Age, Balance impairment, Living situation, Other (Comment) (new hip spica cast) Clinical Presentation: Stable Examination elements: 3 Clinical Decision Making: Moderate complexity clinical decision making Functional Goals and Timeframes: PT Goal #1: Patient will be modified independent with sit to/from stand transfers from various surfaces with least restrictive assistive device for safe discharge home. PT Goal #1 Status: Achieved PT Goal #2: Patient will ambulate >15m modified independently with least restrictive assistive device for safe in-home ambulation. PT Goal #2 Status: Achieved PT Goal #3: Patient will be able to negotiate 1 step(s) up and down consecutively with no railing and supervision to safely access the home. PT Goal #3 Status: Achieved Plan Mr. Boyce was educated regarding evaluative findings, diagnosis, prognosis, potential risks and benefits of rehabilitation interventions. A collaborative effort was used to establish goals and planof care. He was informed of his right to make decisions regarding his care, including refusal of examination or treatment or selection of services from another provider if desired. The treatment planmay be progressed or modified based upon his response to treatment. Patient agrees with the plan of care and goals. Treatment Plan: Plan: Discontinue PT Start of Plan of Care: 11/07/2023 PT Next Certification Date: 02/05/24 Number of Visits: up to 1 visits PT Duration: up to 1 days PT Frequency: One-time visit Treatment interventions may include: Treatment/Interventions: Therapeutic exercise, Therapeutic functional activity, Gait training Plan for next session: no further follow-up recommended at this time Time Spent with Patient Evaluations PT Eval - Low Complexity: 14 min Therapeutic Interventions Gait Training (min): 14 min Therapeutic Activity (min): 18 min Time Tracking Total Timed Units (min): 32 min Total Treatment Time (min): 46 min Marilyn Vergara P.T., D.P.T., OCS documented in this encounter Plan of Treatment Upcoming Encounters Date Type Department Care Team (Late st Contact Info) Description 11/17/2023 9:30 AM CDT Clinical Support Department of Physical Medicine and Rehabilitation in [address] [phone] Corrine Lewis P.A.-C., M.S. [address] [place] [phone] Bel Rojo P.T., D.P.T., OCS [address] [place] [phone] 11/29/2023 8:00 AM CDT Appointment Department of Orthopedic Surgery in [address] [phone] Ahsan Talbert M.D., Ph.D. [address] [place] [phone] 01/06/2024 9:15 AM WAREHOUSE DELIVERY MANAGER Office Visit Department of Orthopedic Surgery in [address] [phone] Jose Crawford M.D. [address] [place] [phone] documented as of this encounter Visit Diagnoses Diagnosis Pain Hip Left [M25.552]- Primary Pain Hip Right documented in this encounter Additional Health Concerns Assessment Noted Time PHQ-9 Depression Total Score: 5 07/07/19 24 9:17 PM CDT documented as of this encounter Care Teams Fast Food Manager Relationship Specialty Start Date End Date Elsewhere, Pcp PCP - General Internal Medicine 05/22/18 documented as of this encounter
--- OUTSIDE RECORDS SUMMARY | 2023-11-08 15:12 | XMS_ITS | Encounter Summary ---
Author Organization [facility] Address [address] [place] [phone] Care Team Providers Care Bottle Dealer Name Role Phone Elsewhere, Pcp Primary Care Provider Unavailabl e Reason for Referral * Outpatient (Routine) - Authorized Specialty Diagnoses / Procedures Referred By Contac t Referred To Contact Diagnoses Hypermobility Joint Procedures ORS Cast Room Visit Ahsan Talbert M.D., Ph.D. [address] [place] [phone] [facility] Referral ID Status Reason Start Date Expiration Date V isits Requested Visits Authorized [id number] Authorized 11/07/2023 11/06/2024 1 1 * Outpatient (Routine) - Closed Specialty Diagnoses / Procedures Referred By Contac t Referred To Contact Diagnoses Pain Hip Left Procedures ORS Cast Room Visit Kushal Mendieta M.D. [address] [place] [phone] [facility] Referral ID Status Reason Start Date Expiration Date Visits Re quested Visits Authorized [id number] Closed 08/22/2023 08/21/2024 1 1 Reason for Visit * Outpatient (Routine) - Closed Specialty Diagnoses / Procedures Referred By Contac t Referred To Contact Diagnoses Pain Hip Left Procedures ORS Cast Room Visit Kushal Mendieta M.D. [address] [place] [phone] [facility] Referral ID Status Reason Start Date Expiration Date Visits Re quested Visits Authorized [id number] Closed 08/22/2023 08/21/2024 1 1 Encounter Details Date Type Department Care Team (Latest Contact Info) Description 11/07/2023 7:54 AM CDT - 11/07/2023 8:34 AM CDT Hospital Encounter Department of Orthopedic Surgery in [place], [place] [address] [place] [phone] Kushal Mendieta M.D. 200 [place] [phone] Ahsan Talbert M.D., Ph.D. 200 [place] [phone] Mobility Limited (Primary Dx); Pain Hip Left; Hypermobility Joint Discharge Disposition: Home or Self Care Social History Tobacco Use Types Packs/Day Years Used Date Smoking Tobacco: Never Smokeless Tobacco: Never Alcohol Use Standard Drinks/Week Comments Yes 1 (1 standard drink = 0.6 oz pur e alcohol) [facility] Utilities Answer Date Recorded In the past 12 months has e [employer], gas, oil, or water [employer] threatened to shut off services in your [...] How often do you attend chur or sabianist services? More than 4 times per year 2022 Do you belong to any clubs o r organizations such as druze groups, unions, fraternal or athletic groups, or [...] Answer Date Recorded PHQ-2 Score 0 07/07/2023 [facility]at [facility] - Occupational Stress [...] your living situation today? I have a [facility] place to live 05/22/2023 Education Answer [...] Sig Dispensed Refills Start Date End Date aspirin 81 mg chewable tablet Chew 1 tablet (81 mg total) 2 (two) times a day for 21 days. 72 tablet 11/07/2023 12/11/2023 famotidine (PEPCID) 40 mg tablet Take 40 [...] tablet 06/07/2023 documented as of this encounter Progress Notes * Ahsan Talbert M.D., Ph.D. - 11/07/2023 8:00 AM CDT SUBJECTIVE CHIEF COMPLAINT/REASON FOR VISIT Return Visit HISTORY OF PRESENT ILLNESS Paramjit Boyce is a 23 y.o. male who returns to the cast room today for a followup visit. He wishes to proceed with spica casting of his more symptomatic hip, currently the left side. He has had parallel evaluation up at [facility] and has an ongoing discussion regarding the potential utility of proceeding with a periacetabular osteotomy up in the [facility] at some point for his right side. REVIEW OF SYSTEMS Patient denies constitutional symptoms, including fever,chills, general malaise. OBJECTIVE PHYSICAL EXAMINATION General: The patient is cooperative, pleasant, no acute distress. Musculoskeletal: Unchanged. Skin intact about the hip and lower extremity. Distally neurovascularlyintact. ASSESSMENT / PLAN #1 Left hip pain with likely MARLENI #2 Status post right hip arthroscopy with Dr. Haines on 02/13/2020 #3 Right hip pain #4 Acetabular retroversion We again had a quite extensive discussion regarding his hips. He has had good outcome in the past with immobilization of his upper extremity. He understands that casting of his lower extremity falls outside of the usual practice for hip pain in the setting of hypermobility. We have had extensive discussions about this in the past over the course of the past 11 months. He understands the limited, case-based evidence available for this. He understands the risks and benefits of proceeding including the potential for skin breakdown, neurovascular injury, osteonecrosis, DVT, PE, arthrofibrosis / stiffness, continued pain, and other similar complications. We will have him on aspirin while he is in his cast to mitigate his DVT / PE risk, of which he reports no personal history. All questions answered to his satisfaction. He wishes to proceed understanding the risks and benefits of this approach. We will see him back in 3 weeks for a cast removal visit. We did discuss danger signs such as calf pain, shortness of breath, increasing pain, which would merit urgent evaluation. He is understandin g. PATIENT EDUCATION Ready to learn, no apparent learning barriers were identified; learning preferences include listening. Explained diagnosis and treatment plan; patient expressed understanding of the content. documented in this encounter Miscellaneous Notes * Addendum Note - Ahsan Talbert M.D., Ph.D. - 11/07/2023 8:00 AM CDTEncounter addended by: Ahsan Talbert M.D., Ph.D. on: 11/07/2023 9:16 AM Actions taken: Visit diagnoses modified, Order list changed, Diagnosis association updated * Addendum Note - Charlotte Lopez R.N. - 11/07/2023 8:00 AM CDTEncounter addended by: Charlotte Lopez R.N. on: 11/07/2023 9:32 AM Actions taken: Care Teams modified, Flowsheet accepted documented in this encounter Plan of Treatment Upcoming Encounters Date Type Department Care Team (Late st Contact Info) Description 11/17/2023 9:30 AM CDT Clinical Support Department of Physical Medicine and Rehabilitation in [place], [place] [address] [place] [phone] Corrine Lewis P.A.-C., M.S. [address] [place] [address] [phone] Bel Rojo P.T., D.P.T., OCS [address] [place] [address] [phone] 11/29/2023 8:00 AM CDT Appointment Department of Orthopedic Surgery in [place], [place] [address] [place] [phone] Ahsan Talbert M.D., Ph.D. [address] [place] [address] [phone] 01/06/2024 9:15 AM DESIGN INSERTER Office Visit Department of Orthopedic Surgery in [place], [place] [address] [place] [phone] Jose Crawford M.D. [address] [place] [phone] Scheduled Orders Name Type Priority Associated Diagnoses Orde r Schedule ORS Cast Room Visit Procedures Routine Pain Hip Left Once for 1 Occurrences starting 11/07/2023 until 11/07/2023 ORS Cast Room Visit Procedures Routine Hypermobility Joint Expected: 11/28/2023, Expires: 02/05/2025 documented as of this encounter Visit Diagnoses Diagnosis Mobility Limited- Primary Pain Hip Left Hypermobility Joint documented in this encounter Additional Health Concerns Assessment Noted Time PHQ-9 Depression Total Score: 5 07/07/19 24 9:17 PM CDT documented as of this encounter Care Teams Bottle Dealer Relationship Specialty Start Date End Date Elsewhere, Pcp PCP - General Internal Medicine 05/22/18 documented as of this encounter
--- OUTSIDE RECORDS SUMMARY | 2023-11-08 15:12 | XMS_ITS | Encounter Summary ---
Author Organization [facility] Address [address] [place] [phone] Care Team Providers Care Seamless Tube Roller Name Role Phone Elsewhere, Pcp Primary Care Provider Unavailabl e Reason for Visit * Reason Onset Date Comments Order Needed Today 11/07/2023 Encounter Details Date Type Department Care Team (Latest Contact Info) Description 11/07/2023 Clinical Communication Department of Sports Medicine in [place], [place] [address] [place] [address] Ahsan Talbert M.D., Ph.D. [address] [place] [phone] Order Needed Today Social History Tobacco Use Types Packs/Day Years Used Date Smoking Tobacco: Never Smokeless Tobacco: Never Alcohol Use Standard Drinks/Week Comments Yes 1 (1 standard drink = 0.6 oz pur e alcohol) [facility] Utilities Answer Date Recorded In the past 12 months has [facility] [place], gas, oil, or water [employer] threatened to shut off services in your [...] How often do you attend chur or hinduism services? More than 4 times per year 2022 Do you belong to any clubs o r organizations such as jehovah's witness groups, unions, fraternal or athletic groups, or [...] Answer Date Recorded PHQ-2 Score 0 07/07/2023 [facility] - [...] your living situation today? I have a [facility] place to live 05/22/2023 Education [...] Department of Physical Medicine and Rehabilitation in [place], [place] [address] [place] [phone] Corrine Lewis P.A.-C., M.S. [address] [place] [phone] Bel Rojo P.T., D.P.T., OCS [address] [place] [phone] 11/29/2023 8:00 AM CDT Appointment Department of Orthopedic Surgery in [place], [place] [address] [place] [phone] Ahsan Talbert M.D., Ph.D. [address] [place] [phone] 01/06/2024 9:15 AM FIELD ADMINISTRATOR Office Visit Department of Orthopedic Surgery in [place], [place] [address] [place] [phone] Jose Crawford M.D. [address] [place] [phone] documented as of this encounter Visit Diagnoses Not on filedocumented in this encounter Additional Health Concerns Assessment Noted Time PHQ-9 Depression Total Score: 5 07/07/19 24 9:17 PM CDT documented as of this encounter Care Teams Seamless Tube Roller Relationship Specialty Start Date End Date Elsewhere, Pcp PCP - General Internal Medicine 05/22/18 documented as of this encounter
--- OUTSIDE RECORDS SUMMARY | 2023-11-08 15:12 | XMS_ITS | Encounter Summary ---
Author Organization [facility] Address [address] [place] [address] Care Team Providers Care Medical Lead Name Role Phone Elsewhere, Pcp Primary Care Provider Unavailabl e Reason for Referral * MRI/CAT/PET Scan (Routine) - Closed Specialty Diagnoses / Procedures Referred By Contac t Referred To Contact Radiology Diagnoses Pain Hip Right Procedures MR Hip Arthrogram Right Candida Lucero P.A.-C. [address] [place] [phone] [facility] Referral ID Status Reason Start Date Expiration Date Visits Re quested Visits Authorized [id number] Closed 10/24/2023 10/23/2024 1 1 * Outpatient (Routine) - Closed Specialty Diagnoses / Procedures Referred By Contac t Referred To Contact Diagnoses Pain Hip Right Procedures FL Hip Arthrogram Injection Right Candida Lucero P.A.-C. 200 [place] [phone] [facility] Referral ID Status Reason Start Date Expiration Date Visits Re quested Visits Authorized [id number] Closed 10/24/2023 10/23/2024 1 1 Reason for Visit * Appointment Request (Routine) - Closed Specialty Diagnoses / Procedures Referred By Contac t Referred To Contact Sports Medicine Diagnoses Pain Hip Bilateral Referral ID Status Reason Start Date Expiration Date Visits Re quested Visits Authorized [id number] Closed 10/07/2023 10/06/2024 1 1 Encounter Details Date Type Department Care Team (Late st Contact Info) Description 10/24/2023 1:15 PM CDT Telemedicine Department of Sports Medicine in [place], [place] [address] [place] [address] Ahsan Talbert M.D., Ph.D. [address] [place] [phone] Pain Hip Right (Primary Dx) Social History Tobacco Use Types Packs/Day Years Used Date Smoking Tobacco: Never Smokeless Tobacco: Never Alcohol Use Standard Drinks/Week Comments Yes 1 (1 standard drink = 0.6 oz pur e alcohol) [facility] Utilities Answer Date Recorded In the past 12 months has e electric, gas, oil, or water company threatened [...] How often do you attend chur or mu-ism services? More than 4 times per year 2022 Do you belong to any clubs o r organizations such as sikhism groups, unions, fraternal or athletic groups, or [...] Answer Date Recorded PHQ-2 Score 0 07/07/2023 [facility] - Occupational Stress Questionnaire Answer Date Recorded [...] your living situation today? I have a [facility] place to live 05/22/2023 Education Answer [...] Notes * Ahsan Talbert M.D., Ph.D. - 10/24/2023 1:15 PM CDT Images from the original note were not included. SUBJECTIVE CHIEF COMPLAINT/REASON FOR VISIT Return Visit HISTORY OF PRESENT ILLNESS Paramjit Boyce is a 23 y.o. male who is seen today for a followup visit regarding their right hip. Since our last visit he was able to trial HKAFO brace. Unfortunately, he states that this has not provided support or stability. He states that his hip pain has remained unchanged. He did have a second opinion at [place] where they did discuss a GUILLERMO. PATIENT REPORTED HIP SCORES: PRO Scores: 07/03/2023 7:36 PM 09/14/2023 9:00 AM 09/14/2023 9:01 AM PROMIS CAT - ORTHO PROMIS CAT: Physical function 39 (moderate dysfunction) 38 (moderate dysfunction) PROMIS CAT: Pain interference 67 (moderate) REVIEW OF SYSTEMS Patient denies constitutional symptoms, including fever,chills, general malaise. OBJECTIVE PHYSICAL EXAMINATION General: The patient is cooperative, pleasant, no acute distress. Musculoskeletal: Limited physical exam due to video visit ASSESSMENT / PLAN #1 Left hip pain with likely MARLENI #2 Status post right hip arthroscopy with Dr. Haines on 02/13/2020 #3 Right hip pain #4 Acetabular retroversion We discussed various treatment options. 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 We discussed the potential utility of hip arthroscopy. On hisright, we discussed continued watchful waiting, the utility of a cast, understanding that this is something that he has extensively researched but falls outside of usual care, and also surgical management as he has a proposed GUILLERMO with the group at [place]. For the time being, he would like to proceed with a right hip MRI and casting. We again discussed that casting is outside of the realm of usual care but he has had great success with this with Dr. Crawford in terms of his upper extremities. He d oes understand the potential for skin breakdown, positioning dependent palsy and musculoskeletal dysfunction, contracture / arthrofibrosis, and difficulties with ambulation and self-care. He has researched this extensively in the setting of hypermobility and again has had personal success with thiswith his upper extremities. We will tentatively plan to proceed with this in the cast room with a physical therapy visit to follow to ensure that he is safe in terms of mobilization and self cares. We will plan to review his MRI together once this becomes available. All questions answered to the patient's satisfaction. PATIENT EDUCATION Ready to learn, no apparent learning barriers were identified; learning preferences include listening. Explained diagnosis and treatment plan; patient expressed understanding of the content. documented in this encounter Plan of Treatment Upcoming Encounters Date Type Department Care Team (Late st Contact Info) Description 11/17/2023 9:30 AM CDT Clinical Support Department of Physical Medicine and Rehabilitation in [place], [place] [address] [place] [address] Corrine Lewis P.A.-C., M.S. [address] [place] [phone] Bel Rojo P.T., D.P.T., [facility] [address] [place] [phone] 11/29/2023 8:00 AM CDT Appointment Department of Orthopedic Surgery in [place], [place] [address] [place] [phone] Ahsan Talbert M.D., Ph.D. [address] [place] [phone] 01/06/2024 9:15 AM TEMPERING KILN TENDER Office Visit Department of Orthopedic Surgery in [place], [place] [address] [place] [phone] Jose Crawford M.D. [address] [place] [phone] documented as of this encounter Results * MR Hip Arthrogram Right (10/31/2023 11:15 AM CDT) Anatomical Region Laterality Modality Lower Extremity, Hip, Muscul oskeletal RST LOS, Musculoskeletal ARZ LOS, Muskuloskeletal FLA LOS Right Magne tic Resonance Impressions 10/31/2023 11:44 AM CDT 1. ??Postsurgical changes about the right hip. Linear signal within the anterior superior labrum, representing changes from prior labral repair versus recurrent tear. 2. ??Mjnm-[id number] chondromalacia about the right lateral hip. 3. [...] from prior labral repairversus recurrent tear. 2. Wwxi-gp-ppqjrgga chondromalacia about the right lateral hip. 3. Intraosseous ganglion cyst/degenerative cystic changes about theacetabular roof. Candida Baltazar P.A.-C. IMG MRI PROCE DURES * FL Hip Arthrogram Injection Right (10/31/2023 [...] Visit Diagnoses Diagnosis Pain Hip Right- Primary Pain Hip Right Pain Hip Right documented in this encounter Additional Health Concerns Assessment Noted Time PHQ-9 Depression Total Score: 5 07/07/19 24 9:17 PM CDT documented as of this encounter Care Teams Medical Lead Relationship Specialty Start Date End Date Elsewhere, Pcp PCP - General Internal Medicine 05/22/18 documented as of this encounter
--- OUTSIDE RECORDS SUMMARY | 2023-11-08 15:12 | XMS_ITS | Encounter Summary ---
Author Organization [facility] Address [address] [place] [address] Care Team Providers Care Pulmonologist/Intensivist Name Role Phone Elsewhere, Pcp Primary Care Provider Unavailabl e Reason for Referral * MRI/CAT/PET Scan (Routine) - Closed Specialty Diagnoses / Procedures Referred By Ye t Referred To Contact Radiology Diagnoses Pain Hip Right Procedures CT Hip Right without IV Contrast Candida Lucero P.A.-C. [address] [place] [phone] [facility] Referral ID Status Reason Start Date Expiration Date Visits Re quested Visits Authorized [id number] Closed 10/25/2023 10/24/2024 1 1 Encounter Details Date Type Department Care Team (Late st Contact Info) Description 10/25/2023 Orders Only Department of Orthopedic Surgery in [place], [place] [address] [place] [phone] Candida Lucero P.A.-C. [address] [place] [phone] Pain Hip Right (Primary Dx) Social History Tobacco Use Types Packs/Day Years Used Date Smoking Tobacco: Never Smokeless Tobacco: Never Alcohol Use Standard Drinks/Week Comments Yes 1 (1 standard drink = 0.6 oz pur e alcohol) [facility] Utilities Answer Date Recorded In the past 12 months has [employer] electric, gas, oil, or water company threatened [...] How often do you attend chur or uatsdin services? More than 4 times per year 2022 Do you belong to any clubs o r organizations such as tenriism groups, unions, fraternal or athletic groups, or [...] Answer Date Recorded PHQ-2 Score 0 07/07/2023 [facility] - Occupational Stress [...] your living situation today? I have a [facility] place to live 05/22/2023 Education [...] Department of Physical Medicine and Rehabilitation in [place], [place] [address] [place] [phone] Corrine Lewis P.A.-C., M.S. [address] [place] [phone] Bel Rojo P.T., D.P.T., OCS [address] [place] [phone] 11/29/2023 8:00 AM CDT Appointment Department of Orthopedic Surgery in [address] [phone] Ahsan Talbert M.D., Ph.D. [address] [place] [phone] 01/06/2024 9:15 AM DOOR CLAMP OPERATOR Office Visit Department of Orthopedic Surgery in [address] [phone] Jose Crawford M.D. [address] [place] [phone] documented as of this encounter Results * CT Hip Right without IV Contrast [...] Candida Baltazar P.A.-C. IMG CT PROCED URES documented in this encounter Visit Diagnoses Diagnosis Pain Hip Right- Primary Pain Hip Right documented in this encounter Additional Health Concerns Assessment Noted Time PHQ-9 Depression Total Score: 5 07/07/19 24 9:17 PM CDT documented as of this encounter Care Teams Pulmonologist/Intensivist Relationship Specialty Start Date End Date Elsewhere, Pcp PCP - General Internal Medicine 05/22/18 documented as of this encounter
--- OUTSIDE RECORDS SUMMARY | 2023-11-08 15:12 | XMS_ITS | Encounter Summary ---
Author Organization [facility] Address [address] [place] [address] Care Team Providers Care Candy Waffle Assembler Name Role Phone Elsewhere, Pcp Primary Care Provider Unavailabl e Reason for Referral * MRI/CAT/PET Scan (Routine) - Closed Specialty Diagnoses / Procedures Referred By Contac t Referred To Contact Radiology Diagnoses Pain Hip Right Procedures CT Hip Right without IV Contrast Candida Lucero P.A.-C. [address] [place] [phone] [facility] Referral ID Status Reason Start Date Expiration Date Visits Re quested Visits Authorized [id number] Closed 10/25/2023 10/24/2024 1 1 Reason for Visit * MRI/CAT/PET Scan (Routine) - Closed Specialty Diagnoses / Procedures Referred By Contac t Referred To Contact Radiology Diagnoses Pain Hip Right Procedures CT Hip Right without IV Contrast Candida Lucero P.A.-C. [address] [place] [phone] [facility] Referral ID Status Reason Start Date Expiration Date Visits Re quested Visits Authorized [id number] Closed 10/25/2023 10/24/2024 1 1 Encounter Details Date Type Department Care Team (Latest Contact Info) Description 10/31/2023 8:45 AM CDT - 10/31/2023 9:07 AM CDT Hospital Encounter Department of Radiology, [facility], in [place], [place] [address] [place] [phone] Candida Lucero P.A.-C. [address] [place] [phone] Pain Hip Right Discharge Disposition: Home or Self Care Social History Tobacco Use Types Packs/Day Years Used Date Smoking Tobacco: Never Smokeless Tobacco: Never Alcohol Use Standard Drinks/Week Comments Yes 1 (1 standard drink = 0.6 oz pur e alcohol) [facility] Utilities Answer Date Recorded In the past 12 months has e [employer], gas, oil, or water [employer] threatened to shut off services in your [...] often do you attend chur ch or adventism services? More than 4 times per year 2022 Do you belong to any clubs o r organizations such as buddhism groups, unions, fraternal or athletic groups, or [...] Answer Date Recorded PHQ-2 Score 0 07/07/2023 [facility] [place] of Occupat ional Health - Occupational Stress [...] your living situation today? I have a [facility] place to live 05/22/2023 Education Answer [...] Department of Physical Medicine and Rehabilitation in [place], [place] [address] [place] [phone] Corrine Lewis P.A.-C., M.S. [address] [place] [phone] Bel Rojo P.T., D.P.T., OCS [address] [place] [phone] 11/29/2023 8:00 AM CDT Appointment Department of Orthopedic Surgery in [place], [place] [address] [place] [phone] Ahsan Talbert M.D., Ph.D. [address] [place], [place] [phone] 01/06/2024 9:15 AM RESIN MAKER Office Visit Department of Orthopedic Surgery in [place], [place] [address] [place] [phone] Jose Crawford M.D. [address] [place] [phone] documented as of this encounter Procedures Procedure Name Priority Date/Time Associated Diagnosis Comments CT HIP RIGHT WITHOUT IV CONTRAST RAD - Routine (most inpatients and all outpatients) 10/31/2023 9:21 AM CDT Pain Hip Right documented in this encounter Results * CT Hip Right [...] documented as of this encounter Care Teams Candy Waffle Assembler Relationship Specialty Start Date End Date Elsewhere, Pcp PCP - General Internal Medicine 05/22/18 documented as of this encounter
--- OUTSIDE RECORDS SUMMARY | 2023-11-08 15:13 | XMS_ITS | Encounter Summary ---
Author Organization [facility] Address [address] [place] [phone] Care Team Providers Care Liquid Chlorine Operator Name Role Phone Elsewhere, Pcp Primary Care Provider Unavailabl e Reason for Visit * Outpatient (Routine) - Closed Specialty Diagnoses / Procedures Referred By Ye lund Referred To Contact Diagnoses Pain Hip Left Pain Hip Right Procedures ORS US-Guided aspiration/injection Candida Lucero P.A.-C. [address] [place] [phone] [facility] Referral ID Status Reason Start Date Expiration Date Visits Re quested Visits Authorized [id number] Closed 07/08/2023 07/07/2024 1 1 Encounter Details Date Type Department Care Team (Late Contact Info) Description 08/31/2023 4:00 PM CDT Procedure visit Department of Sports Medicine in [place], [place] [address] [place] [phone] Armin Colvin M.D. [address] [place] [phone] Pain Hip Left; Pain Hip Right Social History Tobacco Use Types Packs/Day Years Used Date Smoking Tobacco: Never Smokeless Tobacco: Never Alcohol Use Standard Drinks/Week Comments Yes 1 (1 standard drink = 0.6 oz pur e alcohol) [facility] Utilities Answer Date Recorded In the past 12 months has th e electric, gas, oil, or water company [...] week 2022 How often do you attend [facility] or mu-ism services? More than 4 times [...] Answer Date Recorded PHQ-2 Score 0 07/07/2023 [facility] - Occupational [...] your living situation today? I have a [facility] place to live 05/22/2023 Education Answer [...] AM CDT documented as of this encounter Patient Instructions * Patient Instructions* Monica Castellanos M.S., L.A.T., A.T.C. - 08/31/2023 4:00 PM CDT Diagnostic (Anesthetic-Only) Injection If questions or concerns, please call: [facility] Sports Medicine [facility] Sports Medicine Appointment Scheduling Your staff Doctor is: Dr. Armin Colvin Call us at one of the numbers listed above if any of the following happen: Fever over 101.0?? F (or 39.0 ??C). Redness or drainage at the injection site. Increase in pain at the injection site. New weakness, numbness, or tingling at or below the level of the injections. If you have trouble breathing, go to your local emergency room right away. Instructions: You have had an injection of: bilateral hip joints This is an anesthetic only diagnostic injection. The anesthetic may help with pain. It may feel numb in the area around the injection. Your healthcare team will tell you what to expect. The local anesthetic will give you some relief for several hours. When this medicine wears off, youmay have pain. Activity: Your doctor may ask you to perform activities that normally provoke your pain. Perform activity as directed. This will help you get the best results from the injection. The injection will cause numbness to the area you had treated. Restrictions: Do not submerge the injection site under water for 48 hours. You may shower but no baths or hot tubs where the site would be completely submerged by water. Side effects: You may have some bleeding, a bruise or feel tender at the site. An ice pack or your usual pain medicine may help. Do not use heat for 24 hours. Injection Diary: [facility] Please bring this with you to your next appointment or send it to the physician who ordered your injection. Use the following tables. [place] the pain level at the times indicated. Date/Time Pain rating Prior to injection No pain severe 0 1 2 3 4 5 6 7 8 9 10 30 minutes after injection No pain severe 0 1 2 3 4 5 6 7 8 9 10 1 hour after Injection No pain severe 0 1 2 3 4 5 6 7 8 9 10 2 hours after Injection No pain severe 0 1 2 3 4 5 6 7 8 9 10 4 hours after Injection No pain severe 0 1 2 3 4 5 6 7 8 9 10 6 hours after injection No pain severe 0 1 2 3 4 5 6 7 8 9 10 Instruction Status: Reviewed with patient/caregiver and understanding verbalized. Copy provided. Finalized by: Monica Castellanos, MS, LAT, ATC documented in this encounter Procedure Notes * Armin Colvin M.D. - 08/31/2023 4:00 PM CDTAssociated Order(s): ORS US- Guided aspiration/injection: Bilat hip joint Pre-Procedure Diagnose(s): Pain Hip Left; Pain Hip Right Post-Procedure Diagnose(s): Pain Hip Left; Pain Hip Right REFERRAL SOURCE: Shona Soliz* PROCEDURES PERFORMED: Sonographically-guided bilateral hip joint anesthetic/corticosteroid injection HISTORY: The patient was recently evaluated for bilateral hip pain attributed to MARLENI in the context of previous surgery on the right hip in 2020. Patient was referred for the above procedure for diagnostic purposes. Medications and allergies were reviewed. No procedure contraindications were identified. INFORMED CONSENT: Discussed the risks, benefits, alternatives, and the necessity of other members of the healthcare team participating in the procedure. Following denial of allergy and review of potential side effectsand complications, including but not necessarily limited to infection, allergic reaction, local tissue breakdown, systemic effects of corticosteroids, elevation of blood glucose, injury to soft tissue and/or nerves and seizure, the patient indicated understanding and agreed to proceed. All questions answered and verbal/written consent given. PATIENT EDUCATION: Ready to learn, no apparent learning barriers were identified; learning preferences include listening. Explained diagnosis and treatment plan; patient expressed understanding of the content. PROCEDURAL PAUSE: Procedural pause conducted to verify: correct patient identity, procedure to be performed, and as applicable, correct side and site, correct patient position, and availability of implants, special equipment, or special requirements. PROCEDURE DETAILS: The use of direct ultrasound visualization of the needle (rather than a non- guided injection) was indicated to ensure accuracy, thereby avoiding inadvertent intramuscular, intraligament or intratendinous placement and osteochondral or neurovascular injury. Additionally, the increased accuracy of placement may increase clinical effectiveness and will allow higher diagnostic specificity when evaluating effectiveness of this injection. The areas were prepped with chlorhexidine. A sterile ultrasound transducer cover and sterile ultrasound gel were used. Right hip joint Machine: [employer] [id number] Transducer: 2-14 MHz linear array Patient position: Supine Localization process: Anterior hip joint visualized in long axis relative to the femoral neck. The positions of the adjacent femoral neurovascular structures and lateral circumflex femoral artery were identified and considered throughout the procedure. No effusion noted. Approach: In-plane with the transducer, distal to proximal Local anesthesia: Skin and subcutaneous tissues en route to the target site were anesthetized using4 mL of 1% lidocaine and a 25-gauge, 2-inch needle using a single pass. A small amount of lidocainewas injected into the anterior hip joint recess to confirm good intra-articular flow. Injection: Following a syringe exchange, the needle tip was then sonographically confirmed at the femoral head, deep to the joint capsule. Thereafter, 5 mL of 0.5% ropivacaine was injected with excellent arthrogram effect. Left hip joint Machine: [employer] RS85 Transducer: 2-14 MHz linear array Patient position: Supine Localization process: Anterior hip joint visualized in long axis relative to the femoral neck. The positions of the adjacent femoral neurovascular structures and lateral circumflex femoral artery were identified and considered throughout the procedure. No effusion noted. Approach: In-plane with the transducer, distal to proximal Local anesthesia: Skin and subcutaneous tissues en route to the target site were anesthetized using4 mL of 1% lidocaine and a 25-gauge, 2-inch needle using a single pass. A small amount of lidocainewas injected into the anterior hip joint recess to confirm good intra-articular flow. Injection: Following a syringe exchange, the needle tip was then sonographically confirmed at the femoral head, deep to the joint capsule. Thereafter, a 5 mL of 0.5% ropivacaine was injected with excellent arthrogram effect. POST-PROCEDURAL CARE: The patient tolerated the procedure well without complications. Patient was advised to ice for improved pain control and avoid submersion of the area for the next 2 days to reduce the risk of infection. Advised to avoid vigorous activity with the injected limb for the rest of the day, but after that weightbearing and activity will be as tolerated. Patient will take note of his typical hip pain during the anesthetic phase today and will follow up with Dr. Talbert's team regarding the injection results. PATIENT EDUCATION: Education was discussed at today's appointment. A learning needs assessment was performed. Primary learner: Paramjit Boyce Barriers to learning: None Preferred language: Portuguese Learning preferences include: Seeing and doing. Discussed: Post-procedure instructions Learner response: Learner voiced understanding. DIAGNOSIS: #1 Bilateral hip pain, status post sonographically-guided bilateral hip joint diagnostic anestheticinjections Hip site - Bilat hip joint: injection only Performed by: Armin Colvin M.D. Authorized by: Candida Lucero PEj Care team members present 1. Armin Colvin [...] SEDATION / ANESTHESIA Anesthesia method: local infiltration Images have been archived in [employer]: click the 'Dept Filter' button in [employer], then the 'Clear (Show All)' button, then OK. documented in this encounter Plan of Treatment Upcoming Encounters Date Type Department Care Team (Late st Contact Info) Description 11/17/2023 9:30 AM CDT Clinical Support Department of Physical Medicine and Rehabilitation in [place], [place] [address] [place] [phone] Corrine Lewis P.A.-C., M.S. [address] [place] [phone] Bel Rojo P.T., D.P.T., OCS [address] [place] [phone] 11/29/2023 8:00 AM CDT Appointment Department of Orthopedic Surgery in [address] [phone] Ahsan Talbert M.D., Ph.D. [address] [place] [phone] 01/06/2024 9:15 AM BRIM BUSTER Office Visit Department of Orthopedic Surgery in [address] [phone] Jose Crawford M.D. [address] [place] [phone] documented as of this encounter Procedures Procedure Name Priority Date/Time Associated Diagnosis Comments RI ARTHCS ASP/INJ MJR JT W US Routine 08/31/2023 4:00 PM CDT Pain Hip Left Pain Hip Right documented in this encounter Results * RI ARTHCS ASP/INJ MJR JT W US (08/31/2023 [...] P.A.-C. PROCEDURE/MIN OR SURGICAL ORDERABLES MMODAL NA documented in this encounter Visit Diagnoses Diagnosis Pain Hip Left Pain Hip Right documented in this encounter Administered Medications Inactive Administered Medications - up to 3 most recent administrations Medication Order MAR Action Action Date Dose Rate Site lidocaine (PF) 10 mg/mL (1 %) injection 4 mL (Xylocaine) 4 mL, injection, One-Time Injection, Starting on Tue08/31/23 at 1600, For 1 dose Given 08/31/2023 4:00 PM CDT 4 mL lidocaine (PF) 10 mg/mL (1 %) injection 4 mL (Xylocaine) 4 mL, injection, One-Time Injection, Starting on Tue08/31/23 at 1600, For 1 dose Given 08/31/2023 4:00 PM CDT 4 mL ROPivacaine (PF) 5 mg/mL (0.5 %) injection 5 mL (Naropin) 5 mL, injection, One-Time Injection, Starting on Tue08/31/23 at 1600, For 1 dose Given 08/31/2023 4:00 PM CDT 5 mL ROPivacaine (PF) 5 mg/mL (0.5 %) injection 5 mL (Naropin) 5 mL, injection, One-Time Injection, Starting on Tue08/31/23 at 1600, For 1 dose Given 08/31/2023 4:00 PM CDT 5 mL documented in this encounter Additional Health Concerns Assessment Noted Time PHQ-9 Depression Total Score: 5 07/07/19 24 9:17 PM CDT documented as of this encounter Care Teams Liquid Chlorine Operator Relationship Specialty Start Date End Date Elsewhere, Pcp PCP - General Internal Medicine 05/22/18 documented as of this encounter
--- OUTSIDE RECORDS SUMMARY | 2023-11-08 15:13 | XMS_ITS | Encounter Summary ---
Author Organization [facility] Address [address] [place] [phone] Care Team Providers Care Team Sports Sales Associate Name Role Phone Elsewhere, Pcp Primary Care Provider Unavailabl e Reason for Referral * Outpatient (Routine) - Closed Specialty Diagnoses / Procedures Referred By Ye lund Referred To Contact Urology Kate Egan P.A.-C. [address] [place] [phone] Kate Egan P.A.-C. [address] [place] [phone] Referral ID Status Reason Start Date Expiration Date Visits Re quested Visits Authorized [id number] Closed 08/24/2023 02/22/2025 1 1 Encounter Details Date Type Department Care Team (Late st Contact Info) Description 08/24/2023 Orders Only Department of Urology in [place], [place] [address] [place] [phone] aKte Egan P.A.-C. [address] [place] [phone] Social History Tobacco Use Types Packs/Day Years Used Date Smoking Tobacco: Never Smokeless Tobacco: Never Alcohol Use Standard Drinks/Week Comments Yes 1 (1 standard drink = 0.6 oz pur e alcohol) [facility] Utilities Answer Date Recorded In the past 12 months has th e electric, gas, oil, or water [employer] threatened to shut off services in your [...] often do you attend chur ch or jainism services? More than 4 times per year 2022 Do you belong to any clubs o r organizations such as sikh groups, unions, fraternal or athletic groups, or [...] Answer Date Recorded PHQ-2 Score 0 07/07/2023 [facility] - [facility]ational Stress Questionnaire Answer Date [...] your living situation today? I have a [facility] place to live 05/22/2023 Education Answer [...] Department of Physical Medicine and Rehabilitation in [place], [place] [address] [place] [phone] Corrine Lewis P.A.-C., M.S. [address] [place] [phone] Bel Rojo P.T., D.P.T., OCS [address] [place] [phone] 11/29/2023 8:00 AM CDT Appointment Department of Orthopedic Surgery in [place], [place] [address] [place] [phone] Ahsan Talbert M.D., Ph.D. [address] [place] [phone] 01/06/2024 9:15 AM MARKETING ASSISTANT Office Visit Department of Orthopedic Surgery in [place], [place] [address] [place] [phone] Jose Crawford M.D. [address] [place] [phone] Scheduled Referrals Name Type Priority Associated Diagnoses Orde r Schedule Urology office visit (clinic) General Outpatient Referral Routine Expected: 09/01/2023, Expires: 11/23/2024 documented as of this encounter Visit Diagnoses Not on filedocumented in this encounter Additional Health Concerns Assessment Noted Time PHQ-9 Depression Total Score: 5 07/07/19 24 9:17 PM CDT documented as of this encounter Care Teams Team Sports Sales Associate Relationship Specialty Start Date End Date Elsewhere, Pcp PCP - General Internal Medicine 05/22/18 documented as of this encounter
--- OUTSIDE RECORDS SUMMARY | 2023-11-08 15:13 | XMS_ITS | Encounter Summary ---
Author Organization [facility] Address [address] [place] [phone] Care Team Providers Care Cheese Pancake Roller Name Role Phone Elsewhere, Pcp Primary Care Provider Unavailabl e Encounter Details Date Type Department Care Team (Late st Contact Info) Description 08/23/2023 Clinical Communication Department of Sports Medicine in [place], [place] [address] [place] [phone] Ahsan Talbert M.D., Ph.D. [address] [place] [address] [phone] Social History Tobacco Use Types Packs/Day Years Used Date Smoking Tobacco: Never Smokeless Tobacco: Never Alcohol Use Standard Drinks/Week Comments Yes 1 (1 standard drink = 0.6 oz pur e alcohol) [facility] Utilities Answer Date Recorded In the past 12 months has e [employer], gas, oil, or water Disability Care Givers threatened to shut off services in your [...] Recorded PHQ-2 Score 0 07/07/2023 [facility] - Occupational Stress Questionnaire Answer Date [...] your living situation today? I have a [facility] place to live 05/22/2023 Education Answer [...] Department of Physical Medicine and Rehabilitation in [place], [place] [address] [place] [phone] Corrine Lewis P.A.-C., M.S. [address] [place] [phone] Bel Rojo P.T., D.P.T., OCS [address] [place] [phone] 11/29/2023 8:00 AM CDT Appointment Department of Orthopedic Surgery in [place], [place] [address] [place] [phone] Ahasn Talbert M.D., Ph.D. [address] [place] [phone] 01/06/2024 9:15 AM COFFEE SHOP AIDE Office Visit Department of Orthopedic Surgery in [place], [place] [address] [place] [phone] Jose Crawford M.D. [address] [place] [phone] documented as of this encounter Visit Diagnoses Not on filedocumented in this encounter Additional Health Concerns Assessment Noted Time PHQ-9 Depression Total Score: 5 07/07/19 24 9:17 PM CDT documented as of this encounter Care Teams Cheese Pancake Roller Relationship Specialty Start Date End Date Elsewhere, Pcp PCP - General Internal Medicine 05/22/18 documented as of this encounter
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
--- OUTSIDE RECORDS SUMMARY | 2023-11-08 15:13 | XMS_ITS | Clinical Summary ---
Author Organization [facility] Address [address], [place] [address] Care Team Providers Care Cable Splicer Apprentice Name Role Phone Eliana Guerra MD Primary Care Provider [phone] Source Comments You are receiving this document as you are listed as the primary care provider,follow-up provider, or the patient has been referred to you for consultation.This is in compliance with the Medicare and[facility] EHR Incentive Program,which states Providers who transition their patient to another setting of careor provider of care or refers their patient to another provider of care shouldprovide summary care record for each transition of care or referral. [facility] Allergies No known active allergies Medications No known medications Active Problems No known active problems Encounters Date Type Department Care Team Description 09/12/2023 6:00 AM CDT - 09/12/2023 11:59 PM CDT Hospital Encounter Security Contact - None Anurag Hoffman MD Discharge Disposition: Home from Last 3 Months Social History Tobacco Use Types Packs/Day Years Used Date Smoking Tobacco: Never Assessed Sex and Gender Information Value Date Recorded Sex Assigned at Not on file Gender Identity Not on file Sexual Orientation Not on file Plan of Treatment Health Maintenance Due Date Last Done Comments Hep C Screening (Preventive Services) 2000 HIV Screening (Preventive Services) 2016 Adult Preventive Visit 2018 HepB (1) 05/10/2019 DTaP/Tdap/Td (6 - Tdap) 09/22/2022 09/23/19 13, 11/11/2004, 04/21/2001, Additional history exists COVID-19 Vaccine ( season) 2023 02/18/2021, 08/15/2020, 05/29/2020 Influenza (#1) 2023 10/28/2020, 10/08, 10/24/2017, Additional history exists Zoster/Shingles (1 of 2) 2050 Pneumococcal Aged Out 04/21/2001, 07/2000, 2000 No longer eligible based on patient's age to complete this topic Hib Completed 10/20/2001, 07/2000, 2000 IPV (Polio) Completed 11/11/2004, 04/07, 01/12/2001, Additional history exists MCV4 Completed 02/23/2017, 09/02/2015 HepA Completed 04/18/2018, 02/23/2017 HPV Vaccine Completed 10/28/2020, 02/08, 10/19/2019 Procedures Procedure Name Priority Date/Time Associated Diagnosis Comments TB QUANTIFERON GOLD PLUS MITOGEN Routine 09/12/2023 9:26 AM CDT TB QUANTIFERON GOLD PLUS TB2 Routine 09/12/2023 9:26 AM CDT TB QUANTIFERON GOLD PLUS TB1 Routine 09/12/2023 9:26 AM CDT TB QUANTIFERON GOLD PLUS NIL Routine 09/12/2023 9:26 AM CDT TB QUANTIFERON GOLD PLUS Routine 09/12/2023 9:26 AM CDT from Last 3 Months Results * TB QuantiFERON Gold Plus Mitogen (09/12/2023 9:26 AM CDT) MITOGEN >10.000 IU/mL 09/13/2023 11:45 AM CDT [facility] Blood Venipuncture / Unknown 09/12/2023 9:26 AM CDT 09/12/2023 9:34 AM CDT Anurag Hoffman MD LAB_1 [facility] [address] [place] [address] * TB QuantiFERON Gold Plus TB2 (09/12/2023 9:26 AM CDT) [facility] TB2 0.010 IU/mL 09/13/2023 11:45 AM CDT [facility] Blood Venipuncture / Unknown 09/12/2023 9:26 AM CDT 09/12/2023 9:34 AM CDT Anurag Hoffman MD LAB_1 Performing Organization Address [facility] Co de Phone Number [facility] [address] [place] [address] * TB QuantiFERON Gold Plus TB1 (09/12/2023 9:26 AM CDT) [facility] TB1 0.015 IU/mL 09/13/2023 11:45 AM CDT [facility] Blood Venipuncture / Unknown 09/12/2023 9:26 AM CDT 09/12/2023 9:34 AM CDT Anurag Hoffman MD LAB_1 Performing Organization Address [facility] de Phone Number [facility] [address] [place] [address] * TB QuantiFERON Gold Plus NIL (09/12/2023 9:26 AM CDT) [facility] TB QuantiFERON Gold Plus Negative, M. tuberculosis Infection NOT likely Negative, M. tuberculosis Infection NOT likely 09/13/2023 11:47 AM CDT [facility] NIL 0.001 IU/mL 09/13/2023 11:47 AM CDT [facility] TB1-NIL 0.02 IU/mL 09/13/2023 11:47 AM CDT [facility] TB2-NIL 0.01 IU/mL 09/13/2023 11:47 AM CDT [facility] Mitogen-NIL 10.00 IU/mL 09/13/2023 11:47 AM CDT [facility] Blood Venipuncture / Unknown 09/12/2023 9:26 AM CDT 09/12/2023 9:34 AM CDT Narrative [facility] - 09/13/2023 11:47 AM CDT The results of the QuantiFERON TB Gold Plus should be correlated clinically. A single positive test in populations with a low prevalence of latent tuberculosis infection (low pretest probability), should not be taken as definitive evidence of infection. Decisions regarding retesting should be made on a case by case basis. When TB1-NIL or TB2-NIL is low (<1 IU/mL), repeat testing may alternate between positive and negative due to measurement imprecision and not necessarily a change in immune response. For more information refer to: https://www.cdc.gov/mmwr/preview/mmwrhtml/vc2803j7.htm. Anurag Hoffman MD LAB_1 [facility] [address] [place] [address], [facility] from Last 3 Months Care Teams Cable Splicer Apprentice Relationship Specialty Start Date End Date Eliana Guerra MD [address] [place] [address] PCP - General Family Practice 12/04/19
--- OUTSIDE RECORDS SUMMARY | 2023-11-08 15:13 | XMS_ITS | Encounter Summary ---
Author Organization [facility] Address [address] [place] [address] Care Team Providers Care Juvenile Probation Officer Name Role Phone Elsewhere, Pcp Primary Care Provider Unavailabl e Reason for Visit * Outpatient (Routine) - Closed Specialty Diagnoses / Procedures Referred By Ye lund Referred To Contact Social Work Diagnoses Pain Hip Bilateral Candida Lucero P.A.-C. [address] [place] [phone] [facility] Referral ID Status Reason Start Date Expiration Date Visits Re quested Visits Authorized [id number] Closed 09/15/2023 03/16/2025 1 1 Encounter Details Date Type Department Care Team (Late st Contact Info) Description 09/19/2023 11:00 AM CDT Virtual Visit Department of Social Work in [place], [place] [address] [place] [phone] Candida Lucero P.A.-CMackenzie [address] [place] [phone] Aisha Foster M.S.W., L.I.C.S.W. [address] [place] [phone] Pain Hip Bilateral Social History Tobacco Use Types Packs/Day Years Used Date Smoking Tobacco: Never Smokeless Tobacco: Never Alcohol Use Standard Drinks/Week Comments Yes 1 (1 standard drink = 0.6 oz pur e alcohol) [facility] Utilities Answer Date Recorded In the past 12 months has [employer], gas, oil, or water company threatened [...] How often do you attend chur or presybeterian services? More than 4 times per year [...] Answer Date Recorded PHQ-2 Score 0 07/07/2023 [facility] of Occupat ional [facility] - Occupational Stress Questionnaire Answer Date [...] as of this encounter Progress Notes * Aisha Foster M.S.W., SarmadSMackenzieW. - 09/19/2023 11:00 AM CDT Please see progress note for 09/19/23. documented in this encounter Plan of Treatment Upcoming Encounters Date Type Department Care Team (Late st Contact Info) Description 11/17/2023 9:30 AM CDT Clinical Support Department of Physical Medicine and Rehabilitation in [place], [place] [address] [place] [phone] Corrine Lewis P.A.-C., M.S. [address] [place] [phone] Bel Rojo P.T., D.P.T., OCS [address] [place] [phone] 11/29/2023 8:00 AM CDT Appointment Department of Orthopedic Surgery in [address] [phone] Ahsan Talbert M.D., Ph.D. [address] [place] [phone] 01/06/2024 9:15 AM BIOINFORMATICS PROGRAMMER Office Visit Department of Orthopedic Surgery in [place], [place] [address] [place] [phone] Jose Crawford M.D. [address] [place] [phone] documented as of this encounter Visit Diagnoses Diagnosis Pain Hip Bilateral documented in this encounter Additional Health Concerns Assessment Noted Time PHQ-9 Depression Total Score: 5 07/07/19 9:17 PM CDT documented as of this encounter Care Teams Juvenile Probation Officer Relationship Specialty Start Date End Date Elsewhere, Pcp PCP - General Internal Medicine 05/22/18 documented as of this encounter
--- OUTSIDE RECORDS SUMMARY | 2023-11-08 15:13 | XMS_ITS | Data Portability ---
Author Organization [place] [facility] Address [address] [facility] [address] [facility] [address] [facility] [address] [facility] [place] [address] Care Team Providers Care Director [employer] Name Role Phone TISHA CALDERON Referring Provider Assessment Encounter Date Assessment Date Assessment LastModified by Organization Details LastModified Time 09/18/2020 09/18/2020 Today I spent a considerable amount of time discussing the patients past medical and personal history, as well as performing a physical examination all of which is documented in it's entirety in the electronic health record. I reviewed the pathophysiology of the disorder, potential contributing and risk factors as well as treatment options to address their complaints. I recommended advanced imaging with MRIto understand if his connected tissue disorder is affecting his TMJ's . Today panoramic imaging was reviewed, which was provided by his denta office. In this radiograph the mandibular condyles were partially visualized and appear relatively normal in morphology. All 4 third molars are present. There was no other suggestion of osseous or odontogenic abnormalities. We discussed that when the jaw symptoms improve he should get a consult to extract the third molars to avoid the pressure on the prior teeth. From a treatment perspective I recommended a rehabilitative treatment approach. Treatment begins with home self management designed to rest the muscles of mastication and reduce inflammation in the temporomandibular joints. This includes heat and ice compresses, eating a soft food or pain-free diet, bilateral chewing identifying and decreasing daytime muscle tension and modification of their sleep position. Beyond self management I believe that they would benefit from a mandibular intraoral appliance. In addition I've recommended rehabilitation with physical therapy. The goal of treatment is to improve pain, function and focus on long-term self-management strategies. I believe that by following these treatment recommendations there is a good prognosis for reduction of symptoms. History was obtained from the patient. The patient has 5+ diagnoses they would like to address. This case is moderate - high complexity because of nature of his symtpoms. Data reviewed included: previous imaging. Discussion with pain team members after visit was necessary. Risk of complications include progressive disease/symptoms. Today time spent may have included a review of past records, history taking, review of diagnoses, contributing factors, treatment plan, diagnostic testing, prognosis, expectations, risks and complications of treatment/no treatment, discussions with other providers and completing documentation was 65 minutes. Cost of care and insurance coverage was reviewed and discussed with the patient. Not available 09/24/2020 05:25:04 11/20/2020 11/20/2020 Patient was seen today for follow-up and insertion of a mandibular stabilization intraoral appliance. Diagnosis and contributing factors were reviewed. Questions were answered. Self-management and home exercise techniques were reviewed. Today the intraoral appliance was fit to patient comfort. Specifically, no adjustments were necessary. Instructions on proper use and care were discussed/reviewed both written and verbally. I suggested that (s)he uses the appliance as a retraining tool to aid in relaxing their jaw muscles - put it in 20-30 minutes before bed time, keeping their jaw in a relaxed balanced position, simultaneously applying a heat compress on the jaw as a way to help with jaw relaxation. Potential side effects were reviewed. The patient was advised to discontinue oral appliance use should they experience untoward side effects or be unable to return for follow-up care. The patient was advised to return in 3-4 weeks to reassess their progress and continue their treatment plan as previously outlined. In addition to oral appliance insertion today we review home self-care strategies as previously discussed. We discussed additional treatment options including rehabilitative treatment with physical therapy. Paramjit would like to do this closer to his home. Order was added today and will be sent to where he would want it. History today was obtained from the patient. The patient has 5+ diagnoses which we are addressing. Their symptoms are improving. This case is moderate complexity because of multiple diagnoses with chronic symptoms. Data reviewed included no records were available today ? ERASMO was obtained. Discussion with treatment team members after visit was necessary. I had the discussion with the radiologist photovoltaic fabrication technician today. Risk of complications include disease/symptom progression were discussed. Today time spent may have included a review of past records, history taking, review of diagnoses, contributing factors, treatment plan, diagnostic testing, prognosis, expectations, risks and complications of treatment/no treatment, discussions with other providers and completing documentation was 35 minutes. Not available 11/24/2020 07:14:18 Plan of Treatment Reminders Order Date Submit Date Provider Last Modified By Organization Details Last Modified Time Details Appointments None recorded. Lab None recorded. Referral physical therapist referral 2020 021 Not available 05:23:05 Procedures None recorded. Surgeries None recorded. Imaging MRI, temporomand ibular joint(s), w/wo contrast 2020 021 [email or web address] [facility] [place] [address] [facility], [address], [place], [address], 11:48:08 Medication Orders None recorded. Patient TargetsNo targets recorded. Patient Instructions Encounter Date Encounter Id Patient Instructions Last Modified By Organization Details Last Modified Time 09/18/2020 [id number] Self Care for TMD Not availab le 09/24/2020 05:23:05 Reason for Referral Physical Therapist Referral for Articular disc disorder of temporomandibular joint Referring Physician: [facility], Encounter Date: 09/18/2020 Physical Therapist Referral for Articular disc disorder of temporomandibular joint Myofascial pain masticatory muscles, articular disc disorder, crepitus and arthralgia Referring Physician: [facility], Encounter Date: 11/24/2020 Results Created Date Observation Date Name Description Value Unit Range Abnormal Flag Note LastModifiedBy Organization Detail LastModifiedTime 09/19/19 21 XR, ortho panto gram No observ ation record ed. [email or web address] Not Available 2020 10:07:07 Result Notes None recorded. 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 31654194 Active 2020 Bilateral DD w reduction and intermitt ent locking [facility] [place] [address] [facility] [address], [place], [place], [address] [place] [address], [facility] 1 10:14:10 Arthralg ia of temporom andibula r joint 21400152 Active 2020 TMJs MONE PEREZ BDS, [place] [address] [facility] [address], [place], [place], [address] [place] [address], [facility] 1 05:09:27 Myofasci al pain 175121428 Active 2020 [place] and cervical muscles [facility] B[facility] [address] [facility] [address], [place], [place], [address] [place] [address], [facility] 1 05:10:21 Tension- type headache 206811220 Active 2020 MONE PEREZ BDS, [place] [address] [facility] [address], [place], [place], [address] [place] [address], [facility] 1 05:10:27 Bilatera l tinnitus 28080275968 02 Active 2020 MONE PEREZ BDS, [place] [address] [facility] [address], [place], [place], [address] [place] [address], [facility] 1 05:10:30 Bilatera l crepitus of temporom andibula r joints on opening 120592890 Active 2020 MONE PEREZ BDS, [place] [address] [facility] [address], [place], [place], [address] [place] [address], [facility] 1 05:10:53 Musculos keletal hypermob ility 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 Procedures Surgical History Date Name Laterality Status Provider Name and Address Organization Details Recorded Time 1 Oral appliance completed Silvestre Carey [facility] 11/20/2020 12:30:14 operation on hip joint completed Sydnie Tamayo [facility] 09/18/2020 09:35:14 Imaging Results Imaging Date Name Status LastModified by Organization Details LastModified Time 09/18/2020 XR, orthopantogram completed [email or web address] Inform ation not available 09/18/2020 10:07:07 Procedure Notes None recorded. Medical Equipment None Reported. Allergies No known drug allergies Medications Name Sig Start Date Stop Date Status Note LastModified by Organization Details LastModified Time gabapentin 600 mg tablet active Not Available Not Available Not Available meloxicam 15 mg tablet 09/18 completed Not Available Not Available Not Available prednisone 20 mg tablet 09/18 completed Not Available Not Available Not Available gabapentin 250 mg/5 mL oral solution TK 6 ML PO ONCE DAILY AT BEDTIME FOR RESTLESS LEGS 09/18 completed Not Available Not Available Not Available omeprazole 40 mg capsule,del ayed release active Not Available Not Available Not Available cephalexin 500 mg capsule 09/18 completed Not Available Not Available Not Available indomethaci n 25 mg capsule 09/18 completed Not Available Not Available Not Available gabapentin 300 mg capsule TAKE 1 CAPSULE BY MOUTH AT BEDTIME NEEDED active Not Available Not Available No t Available mupirocin 2 % topical ointment APPLY EXTERNALL Y TO THE AFFECTED AREA THREE TIMES DAILY FOR 5 DAYS 09/18 completed Not Available Not Available Not Available mirtazapine 15 mg tablet 09/18 completed Not Available Not Available Not Available hydrocodone 7.5 mg-acetamin ophen 325 mg/15 mL oral solution 09/18 completed Not Available Not Available Not Available Ferrocite 324 mg (106 mg iron) tablet TAKE 2 TABLETS BY MOUTH DAILY 09/18 completed Not Available Not Available Not Available FeroSul 325 mg (65 mg iron) tablet TAKE 1 TABLET BY MOUTH DAILY WITH A MEAL 09/18 completed Not Available Not Available Not Available ferrous sulfate 220 mg (44 mg iron)/5 mL oral elixir TAKE 6.8 ML BY MOUTH DAILY WITH A MEAL. active Not Available Not Available No t Available Vitals Date Recorded Body height Body temperature Systolic blood pressure Diastolic blood pressure Provider Name and Address Organization Details Last Updated DateTime 09/18/2020 185.42 cm 97.9 [degF] 120 mm[Hg] 80 mm[Hg] Sydnie Tamayo [facility] 09:32:33 Date Recorded Body height Body temperature Provider N ashley and Address Organization Details Last Updated DateTime 11/20/2020 185.42 cm 97.3 [degF] Silvestre Carey [facility] 11/20/2020 12:25:26 Social History Question Answer Notes LastModified by Organizat ion Details LastModified Time Do You Feel Stressed (tense, Restless, Nervous, Or Anxious, Or Unable To Sleep At Night)? [id number] Information not available 09/18/2020 Sex: Unknown Functional Status None recorded. Mental Status None recorded. Family History Relationship Description Onset Age of this Age Resolved Age Notes LastModified by Organization Details LastModified Time Sister Temporomandi bular joint disorder Not available 2020 10:05:34 Medical History Condition Response Muscle, Joint, or Bone Problems Y Acid Reflux (GERD) Y Headaches Y Back Injury Y Past Encounters Encounter ID Performer Location Encounter Start Date Encounter Closed Date Diagnosis/Indication Diagnosis SNOMED-CT Code Diagnosis ICD10 Code [id number] RICHIE PEREZ BDS, [place] Kieran singh [address] [place] [address] 09/18/2020 09:20:04 09/18/2020 10:38:33 Articular disc disorder of temporomandibular joint 81716405 M26.633 Myofascial pain 67511506 9 M79.11 M54.2 Musculoske letal hypermobility 89758785 M35.7 Arthralgia of temporomandibular joint 43801531 M26.623 Bilateral tinnitus 45086 33585 102 H93.13 Tension-type headache 39 4667543 G44.209 Bilateral crepitus of temporomandibular joints on opening 796673161 M26.69 [id number] PRELUCAS PEREZ BDS, [place] Kieran francisco [address] [place] [address] 11/20/2020 11:52:08 11/20/2020 12:52:44 Myofascial pain 083676038 M79.11 M54.2 Tension-type headache 39 0794990 G44.209 Musculoske letal hypermobility 87419013 M35.7 Bilateral tinnitus 51998 16274 102 H93.13 Bilateral crepitus of temporomandibular joints on opening 987139812 M26.69 Arthralgia of temporomandibular joint 45926605 M26.623 Articular disc disorder of temporomandibular joint 60020128 M26.633 Health Concerns Section Related Observation LastModified by Organization Detai ls LastModified Time None Recorded Concern Status LastModified by Organization Details LastModified Time None Recorded Advance Directives Directive None Recorded Payers Encounter Date Sequence Insurance Name Policy Number Policy Candelaria Covered Member ID Candelaria Member ID Guarantor Name 09/18/2020 1 [facility] ([place] [facility] Chetan Boyce [id number] Paramjit Boyce 11/20/2020 1 [facility] [place] [facility] Chetan Boyce [id number] Paramjit Boyce Notes Date Note Type Note Provider Name and Address Organization Details Recorded Time text/html HPI Notes: general HPI for jaw, face, TMD pain Reported by patient. Onset: started 6 month(s) ago Location: bilateral; masseteric; preauricular Quality: dull; aching; sore; shooting; shooting pain when opening wide Severity: pain level 3-6/10 Duration intermittent daily Symptom triggers: clenching; bruxism; chews hard/crunchy/chewy foods Aggravating Factors: yawning; wide mouth opening Alleviating Factors: NSAIDs; heat; soft foods Associated Symptoms: jaw popping bilateral; headaches; tinnitus Prior opinion dentist Patient presents today for evaluation of a possible temporomandibular disorder. These symptoms are chronic and began with no clear triggering events. Previous consultation include evaluation with his/her dentist. Symptoms are bilateral and aggravated by clenching and grinding of their teeth. The patient is not aware of teeth clenching and grinding. Praamjit is referred by his orthrodontist, Dr. Tisha Calderon for evaluation of TMD symptoms. He states that he has had jaw pain for about six months. He completed his orthodontic treatment about a 1 1/2 year ago. He does have connective tissue disorder. He is noticing jaw joint popping and intermittent locking which contributes to limited mouth opening episodes. His jaw pain is worse with opening mouth wide. He does notice grinding noises in his neck as well. His sister also has TMD . Other symptoms include ringing in ears and headaches Paramjit states that his connective tissue disorder presents as widespread joint pain, joint noises, hypermobility and laxity of tendons. Prior imaging include MRI of wrists and several radiographs of joints. 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 Paramjit has seen a learning officer when he was 17, however, symptoms have been worse now. 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 MONE PEREZ BDS, [place] [address] [facility] [address], [place], [address], [facility] 09/24/2020 05:25:11 1 text/html HPI Notes: general HPI for jaw, face, TMD pain Reported by patient. Onset: started 6 month(s) ago Location: bilateral; masseteric; preauricular Quality: dull; aching; sore; shooting; shooting pain when opening wide Severity: pain level 3-6/10 Duration intermittent daily Symptom triggers: clenching; bruxism; chews hard/crunchy/chewy foods Aggravating Factors: yawning; wide mouth opening Alleviating Factors: NSAIDs; heat; soft foods Associated Symptoms: jaw popping bilateral; headaches; tinnitus Prior opinion dentist Patient presents today for insertion of a mandibular stabilization oral appliance. They note improved symptoms which along with prior data was reviewed, updated and documented in the patient history of present illness. (S)he describes compliance with home self care as previously recommended. Paramjit reports that he is doing better, he has done accupunture, has not started PT yet. He would like to get physical therapy done closer to his home. He could not get the MRI of TM joints done due to release of information and [facility] as Paramjit has a metal bar in ihis chest. MONE PEREZ BDS, [place] [address] [facility] [address], [place], [address], [facility] 11/24/2020 07:16:12
--- OUTSIDE RECORDS SUMMARY | 2023-11-08 15:13 | XMS_ITS | Encounter Summary ---
Author Organization [facility] Address [address] [place] [address] Care Team Providers Care Drawing Kiln Supervisor Name Role Phone Elsewhere, Pcp Primary Care Provider Unavailabl e Encounter Details Date Type Department Care Team (Late st Contact Info) Description 09/16/2023 Clinical Communication Department of Sports Medicine in [place], [place] [address] [place] [address] Ahsan Talbert M.D., Ph.D. [address] [place] [phone] Social History Tobacco Use Types Packs/Day Years Used Date Smoking Tobacco: Never Smokeless Tobacco: Never Alcohol Use Standard Drinks/Week Comments Yes 1 (1 standard drink = 0.6 oz pur e alcohol) [facility] Utilities Answer Date Recorded In the past 12 months has e [employer], gas, oil, or water [employer] threatened to shut off services in your [...] often do you attend chur ch or holiness services? More than 4 times per year 2022 Do you belong to any clubs o r organizations such as holiness groups, unions, fraternal or athletic groups, or [...] Answer Date Recorded PHQ-2 Score 0 07/07/2023 [facility] Answer Date [...] your living situation today? I [facility] to live 05/22/2023 Education Answer [...] Department of Physical Medicine and Rehabilitation in [place], [place] [address] [place] [phone] Corrine Lewis P.A.-C., M.S. [address] [place] [phone] Bel Rojo P.T., D.P.T., OCS [address] [place] [phone] 11/29/2023 8:00 AM CDT Appointment Department of Orthopedic Surgery in [place], [place] [address] [place] [phone] Ahsan Talbert M.D., Ph.D. [address] [place] [phone] 01/06/2024 9:15 AM NAT INSTRUCTOR Office Visit Department of Orthopedic Surgery in [place], [place] [address] [place] [phone] Jose Crawford M.D. [address] [place] [phone] documented as of this encounter Visit Diagnoses Not on filedocumented in this encounter Additional Health Concerns Assessment Noted Time PHQ-9 Depression Total Score: 5 07/07/19 24 9:17 PM CDT documented as of this encounter Care Teams Drawing Kiln Supervisor Relationship Specialty Start Date End Date Elsewhere, Pcp PCP - General Internal Medicine 05/22/18 documented as of this encounter
--- OUTSIDE RECORDS SUMMARY | 2023-11-08 15:13 | XMS_ITS | Encounter Summary ---
Author Organization [facility] Address [address] [place] [id number] Care Team Providers Care Labor Economics Professor Name Role Phone Elsewhere, Pcp Primary Care Provider Unavailabl e Reason for Visit * Reason Comments Other clean intermittent c atheterization and uroflow /bladder scan * Outpatient (Routine) - Closed Specialty Diagnoses / Procedures Referred By Ye lund Referred To Contact Diagnoses Frequency Urinary Procedures URO Uroflow Tam Clark M.D. [address] [place] [phone] [facility] Referral ID Status Reason Start Date Expiration Date Visits Re quested Visits Authorized [id number] Closed 07/12/2023 07/11/2024 1 1 Encounter Details Date Type Department Care Team (Latest Contact Info) Description 08/18/2023 1:45 PM CDT Procedure visit Department of Urology in [place], [place] [address] [place] [phone] Tam Clark M.D. [address] [place] [phone] Alissa Mckinley, L.P.N. Retention Urinary (Primary Dx); Frequency Urinary Social History Tobacco Use Types Packs/Day Years Used Date Smoking Tobacco: Never Smokeless Tobacco: Never Alcohol Use Standard Drinks/Week Comments Yes 1 (1 standard drink = 0.6 oz pur e alcohol) [facility] Utilities Answer Date Recorded In the past 12 months has [employer], gas, oil, or water company threatened [...] week 2022 How often do you attend [facility] or faith services? More than 4 times per year [...] Date Recorded PHQ-2 Score 0 07/07/2023 [facility] of Occupat ional Health - [...] your living situation today? I have a [facility] to live 05/22/2023 Education Answer [...] as of this encounter Progress Notes * Mirna Marcelino R.N. - 08/18/2023 1:45 PM CDT CHIEF COMPLAINT Patient here for a complex uroflow via calibrated electronic equipment and a residual urine check by ultrasound. IMPRESSION/REPORT/PLAN Dr. Tam Clark ordered the patient to have a complex uroflow with residual urine check via ultrasound. Patient had a strong urge to void. Uroflow was completed at this time. Patient voided 32 mL's and had a ultrasound residual of >750 mL's. Patient was seen by Kate Egan P.A.-C. This morning. Updated Kate with these results. She would like patient to perform clean intermittent catheterization 2-3 times per day and keep a record.CHIEF COMPLAINT/REASON FOR VISIT Intermittent self-catheterization teaching IMPRESSION/REPORT/PLAN Patient is here for intermittent self-catheterization teaching as ordered by Kate Egan P.A.-C. . Patient instructed on schedule for intermittent self-catheterization as ordered: 3 times per day . Supplies sent with patient: Male Self-Catheter Pamplet and Supplies to perform self-catheterization SIC Order Indication: Chronic urinary retention Frequency: 3 times per day Duration: Permanently Catheter Size: 14F Catheter Type: Straight Patient watched Self catheterization video and performed self catheterization without difficulty. Prescription written for supplies and handed to patient. It was also faxed to [employer]. documented in this encounter Procedure Notes * Tato Pedroza M.D. - 08/18/2023 1:45 PM CDTAssociated Order(s): URO UROFLOW REASON FOR VISIT: Uroflow: The patient here for a complex uroflow via calibrated electronic equipment and a residual urine check by ultrasound. FINDINGS: Peak flow 9 ml/sec Average flow 3 ml/sec Total voided volume 32 mls Residual urine 750 ml by ultrasound Valsalva flow pattern IMPRESSION: Elevated postvoid residual with low Qmax. Differential diagnosis includes bladder outlet obstruction versus hypocontractile bladder. Clinical correlation is recommended. documented in this encounter Plan of Treatment Upcoming Encounters Date Type Department Care Team (Late st Contact Info) Description 11/17/2023 9:30 AM CDT Clinical Support Department of Physical Medicine and Rehabilitation in [place], [place] [address] [place] [phone] Corrine Lewis P.A.-C., M.S. [address] [place] [phone] Bel Rojo P.T., D.P.T., OCS [address] [place] [phone] 11/29/2023 8:00 AM CDT Appointment Department of Orthopedic Surgery in [place], [place] [address] [place] [phone] Ahsan Talbert M.D., Ph.D. [address] [place] [phone] 01/06/2024 9:15 AM REGISTERED NURSE PRACTITIONER Office Visit Department of Orthopedic Surgery in [address] [phone] Jose Crawford M.D. [address] [place] [phone] documented as of this encounter Procedures Procedure Name Priority Date/Time Associated Diagnosis Comments URO UROFLOW Routine 08/18/2023 1:45 PM CDT Frequency Urinary documented in this encounter Results * URO Uroflow (08/18/2023 1:45 PM CDT) [...] is recommended. Tam Clark M.D. UROLOGY ORDERABLES documented in this encounter Visit Diagnoses Diagnosis Retention Urinary- Primary Frequency Urinary documented in this encounter Additional Health Concerns Assessment Noted Time PHQ-9 Depression Total Score: 5 07/07/19 24 9:17 PM CDT documented as of this encounter Care Teams Labor Economics Professor Relationship Specialty Start Date End Date Elsewhere, Pcp PCP - General Internal Medicine 05/22/18 documented as of this encounter
--- OUTSIDE RECORDS SUMMARY | 2023-11-08 15:13 | XMS_ITS | Encounter Summary ---
Author Organization [facility] Address [address] [place] [address] Care Team Providers Care Hand Assembler For Puller Over Name Role Phone Elsewhere, Pcp Primary Care Provider Unavailabl e Reason for Referral * Outpatient (Routine) - Closed Specialty Diagnoses / Procedures Referred By Contloraine lund Referred To Contact Social Work Diagnoses Pain Hip Bilateral Candida Lucero P.A.-C. [address] [place] [phone] [facility] Referral ID Status Reason Start Date Expiration Date Visits Re quested Visits Authorized [id number] Closed 09/15/2023 03/16/2025 1 1 Reason for Visit * Outpatient (Routine) - Closed Specialty Diagnoses / Procedures Referred By Ye lund Referred To Contact Sports Medicine Candida Lucero P.A.-C. [address] [place] [phone] [facility] Referral ID Status Reason Start Date Expiration Date Visits Re quested Visits Authorized [id number] Closed 07/11/2023 01/09/2025 1 1 Encounter Details Date Type Department Care Team (Late st Contact Info) Description 09/15/2023 8:00 AM CDT Telemedicine Department of Sports Medicine in [place], [place] [address] [place] [phone] Ahsan Talbert M.D., Ph.D. [address] [place] [phone] Pain Hip Bilateral (Primary Dx) Social History Tobacco Use Types Packs/Day Years Used Date Smoking Tobacco: Never Smokeless Tobacco: Never Alcohol Use Standard Drinks/Week Comments Yes 1 (1 standard drink = 0.6 oz pur e alcohol) [facility] Utilities Answer Date Recorded In [...] week 2022 How often do you attend [facility] or yarsani services? More than 4 times per year [...] 07/07/2023 [facility] of Occupat ional [facility] - Occupational Stress Questionnaire Answer [...] living situation today? I have a [facility] place to live 05/22/2023 Education Answer [...] Notes * Ahsan Talbert M.D., Ph.D. - 09/15/2023 8:00 AM CDT Images from the original note were not included. SUBJECTIVE CHIEF COMPLAINT/REASON FOR VISIT Return Visit HISTORY OF PRESENT ILLNESS Paramjit Boyce is a 23 y.o. male who is seen today for a followup visit regarding their bilateralhip pain. Since our last visit he had a bilateral hip joint injection on 08/31/2023. He states he had 100% pain relief for 24 hours to left hip. He states he was able to play pickleball, run, and squat without pain following injection. He did not have pain relief to right hip. He has continued to participate in physical therapy without significant improvement of symptoms. He has not been able to trial HKAFO brace yet. He is hoping to begin using this brace soon as it has been approved by his insurance. PATIENT REPORTED HIP SCORES: PRO Scores: 07/03/2023 [...] hip arthroscopy with Dr. Haines on 02/13/2020 It was a pleasure to see Mr. Boyce today in clinic. We discussed trialing his HKAFO brace to hopefully provide support. He would also like to potentially proceed with hip spica cast at the end of October. We again discussed that this is typically out of protocol. He has had good results with this in the past for his upper extremities with Dr. Crawford. He understands potential risks and benefitsincluding stiffness, skin breakdown, AVN, positional palsies, and associated risks. We have placed a social work consult for potential help following hip spica cast placement. He will contact us through the patient portal if he has further questions. Otherwise, we will plan to see him at his scheduled appointment in October. All questions were answered at this time. PATIENT EDUCATION Ready to learn, no apparent learning barriers were identified; learning preferences include listening. Explained diagnosis and treatment plan; patient expressed understanding of the content. documented in this encounter Plan of Treatment Upcoming Encounters Date Type Department Care Team (Late st Contact Info) Description 11/17/2023 9:30 AM CDT Clinical Support Department of Physical Medicine and Rehabilitation in [address] [phone] Corrine Lewis P.A.-C., M.S. [address] [place] [phone] Bel Rojo P.T., D.P.T., OCS [address] [place] [phone] 11/29/2023 8:00 AM CDT Appointment Department of Orthopedic Surgery in [address] [phone] Ahsan Talbert M.D., Ph.D. [address] [place] [phone] 01/06/2024 9:15 AM YOUTH CARE SPECIALIST Office Visit Department of Orthopedic Surgery in [address] [phone] Jose Crawford M.D. [address] [place] [phone] Scheduled Referrals Name Type Priority Associated Diagnoses Orde r Schedule Social Work - General consult (clinic) Outpatient Referral Routine Pain Hip Bilateral Expected: 09/15/2023, Expires: 12/15/2024 documented as of this encounter Visit Diagnoses Diagnosis Pain Hip Bilateral- Primary documented in this encounter Additional Health Concerns Assessment Noted Time PHQ-9 Depression Total Score: 5 07/07/19 24 9:17 PM CDT documented as of this encounter Care Teams Hand Assembler For Puller Over Relationship Specialty Start Date End Date Elsewhere, Pcp PCP - General Internal Medicine 05/22/18 documented as of this encounter
--- OUTSIDE RECORDS SUMMARY | 2023-11-08 15:13 | XMS_ITS | Encounter Summary ---
Author Organization [facility] Address [address] [place] [address] Care Team Providers Care Bonbon Cream Warmer Name Role Phone Elsewhere, Pcp Primary Care Provider Unavailabl e Reason for Visit * Reason Onset Date Comments Pre-visit Intake 09/13/2023 Encounter Details Date Type Department Care Team (Latest Contact Info) Description 09/13/2023 3:45 PM CDT Clinical Communication Virtual Review in [place], [place] 200 [place] [phone] Pre-visit Intake Social History Tobacco Use Types Packs/Day Years Used Date Smoking Tobacco: Never Smokeless Tobacco: Never Alcohol Use Standard Drinks/Week Comments Yes 1 (1 standard drink = 0.6 oz pur e alcohol) [facility] Utilities Answer Date Recorded In the past 12 months has e [employer], gas, oil, or water [employer] threatened to shut off services in your [...] any clubs o r organizations such as congregation groups, unions, fraternal or athletic groups, or [...] Answer Date Recorded PHQ-2 Score 0 07/07/2023 [facility] of Occupat ional Health - Occupational Stress [...] your living situation today? I have a [facility] place to live 05/22/2023 Education Answer [...] Department of Physical Medicine and Rehabilitation in [place], [place] [address] [place] [phone] Corrine Lewis P.A.-C., M.S. [address] [place] [phone] Bel Rojo P.T., D.P.T., OCS [address] [place] [phone] 11/29/2023 8:00 AM CDT Appointment Department of Orthopedic Surgery in [place], [place] [address] [place] [phone] Ahsan Talbert M.D., Ph.D. [address] [place] [phone] 01/06/2024 9:15 AM PROTECTIVE SERVICES CASE WORKER Office Visit Department of Orthopedic Surgery in [place], [place] [address] [place] [phone] Jose Crawford M.D. [address] [place] [phone] documented as of this encounter Visit Diagnoses Not on filedocumented in this encounter Additional Health Concerns Assessment Noted Time PHQ-9 Depression Total Score: 5 07/07/19 24 9:17 PM CDT documented as of this encounter Care Teams Bonbon Cream Warmer Relationship Specialty Start Date End Date Elsewhere, Pcp PCP - General Internal Medicine 05/22/18 documented as of this encounter
--- OUTSIDE RECORDS SUMMARY | 2023-11-08 15:13 | XMS_ITS | Encounter Summary ---
Author Organization [facility] Address [address] [place] [address] Care Team Providers Care Bell Maker Name Role Phone Elsewhere, Pcp Primary Care Provider Unavailabl e Reason for Visit * Outpatient (Routine) - Closed Specialty Diagnoses / Procedures Referred By Ye lund Referred To Contact Urology Diagnoses Frequency Urinary Tam Clark M.D. [address] [place] [phone] [facility] Referral ID Status Reason Start Date Expiration Date Visits Re quested Visits Authorized [id number] Closed 07/12/2023 01/10/2025 1 1 Encounter Details Date Type Department Care Team (Latest Contact Info) Description 08/18/2023 8:00 AM CDT Comprehensive Visit Department of Urology in [place], [place] [address] [place] [phone] Kate Egan P.A.-C. [address] [place] [phone] Frequency Urinary (Primary Dx); Hesitancy Urinary Social History Tobacco Use Types Packs/Day [...] How often do you attend chur or confucianist services? More than 4 times per year 2022 Do you belong to any clubs o r organizations such as congregational groups, unions, fraternal or athletic groups, or [...] Answer Date Recorded PHQ-2 Score 0 07/07/2023 [facility] - [facility]ational Stress Questionnaire Answer [...] your living situation today? I have a [facility] place to live 05/22/2023 Education [...] as of this encounter Consult Notes * Kate Egan P.A.-C. - 08/18/2023 8:00 AM CDT REQUESTING PROVIDER Tam Clark M.D. SUBJECTIVE REASON FOR CONSULT Lower urinary tract symptoms HISTORY OF PRESENT ILLNESS is a very pleasant 23 y.o.male referred by Dr. Clark for evaluation of lower urinary tract symptoms. 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 After his visit with Ms. Corrine Lewis PA-C and Dr. Clark in May of 2023 he was referred to Dr. Hoyos for sex therapy as well as referred for pelvic floor physical therapy secondary to pelvic pain symptoms. In regards to urinary symptoms, patient states that he has experienced intermittent and inconsistent voiding complaints over the last 5 years. He does believe that they are increasing in frequency. At times he will experience problems with urinary frequency if he is well hydrated. He does note occasional urgency and urge incontinence at least once monthly. Patient denies gross total incontinence.States at times his underwear will be damp but he can not recall when the leakage occurred. He doesendorse occasional postvoid dribbling. On the other hand, patient states he will experience occasional feelings of impaired emptying as well as obstructive complaints of straining to void and urinary hesitancy. This is troublesome to him as he states it has been occurring more often. Denies historyof acute urinary retention, urinary tract infections or gross hematuria. Patient denies bowel dysfunction. As mentioned, he is meeting with our pelvic floor physical therapist later today. Patient indicates that he has been performing pelvic floor PT on and off over the past 3 years and admits he does note improvement in voiding complaints if he is consistent with pelvic floor PT. Patient is concerned with possible upcoming immobilization potentially this fall to help with hip concerns. He is fearful that he may have a flare of urinary symptoms during this time frame which would be difficult for him. When asked how his voiding complaints are affecting quality of life, he states it is difficult to assess given his symptoms are so intermittent. He states when his symptoms are at their worst, it sucks, however there are timeframes when voiding complaints are not bothersome to him. Lower Urinary Symptoms Lower Urinary Sx: able to sense full bladder (+) frequency (+) 4 x per day 0 x nightly Presence of pelvic pain: perineal pain (+) Obstructive Sx: straining (+) kidney infections or required hospitalization for kidney failure (-) # of UTI's in past year: None Required catheter: no Incontinence: dribbling (+) urge incontinence (+) unintentionally leaks urine (+) leaking occurs during coughing,sneezing or lifting heavy objects (-) experiences a feeling of urgency before leaking (+) Treatments: Treatments taken for urinary symptoms: none had surgical or office procedures to improve urinary symptoms (-) IPSS: 13, patient answered mixed to the quality of life question REVIEW OF SYSTEMS The following systems were negative: Gastrointestinal MEDICAL HISTORY Past Medical History: Diagnosis Date Gastroesophageal Reflux Disease NOS Headache Unspecified Loss Visual Osteopenia Other Injury Of Unspecified Body Region broken scaphoid Pectus Excavatum Scoliosis Past Surgical History: Procedure Laterality Date ARTHROSCOPY [...] Jose Crawford M.D.; Location:[facility] FAMILY HISTORY Family History Problem Relation Name Age of Onset Alcohol abuse Father irais dolan Asthma Father irais dolan Depression Mother randall henriquez SOCIAL HISTORY Social History Tobacco Use Smoking status: Never Smokeless tobacco: Never Vaping Use Vaping status: never used Substance Use Topics Alcohol use: Yes Alcohol/week: 1.0 standard drink of alcohol Types: 1 Standard drinks or equivalent per week Drug use: No OBJECTIVE PHYSICAL EXAMINATION Constitutional: He is oriented to person, place, and time. He appears well- developed and well-nourished. Neurological: He is alert and oriented to person, place, and time. Psychiatric: He has a normal mood and affect. His behavior is normal. Judgment and thought content normal. DIAGNOSTICS LABORATORY: Latest Reference Range & Units 08/18/23 07:31 Source Urine, Urine, Midstream Color, U Yellow Clarity Clear Osmolality, U 150 - 1150 mOsm/kg 356 pH, U 4.5 - 8.0 6.1 Ketones Negative mg/dL Negative Protein, U <26 mg/dL 4 Protein/Osmolality <0.42 ratio 0.11 Predicted 24 HR Protein, U <229 mg/24 h 117 Predicted Range mg/24 h 37-369 Hemoglobin, QL Negative Negative Leukocyte Esterase Negative Negative WBC /hpf None Seen Nitrite, U Negative Negative Glucose, U Negative mg/dL Negative Microscopy Normal RBC <3 /hpf None Seen ASSESSMENT / PLAN #1 Intermittent lower urinary tract symptoms I had pleasure of meeting with in consultation today. We reviewed his voiding complaints. On occasion, patient notes urinary frequency, urgency and at times incontinence, however at other times he is bothered by more obstructive complaints including straining with urination as well as urinary hesitancy and feelings of impaired emptying. He will also have timeframes in which he does not experience voiding complaints. He does have longstanding history of pelvic pain and has worked witha pelvic floor physical therapist on and off over the last several years. Patient has not been ableto identify things that may upstage his urinary complaints. Did discuss with him that given the inconsistent, intermittent nature of his symptoms, this does point to possible relation to pelvic floordysfunction. I have encouraged him to continue to work with pelvic floor physical therapy as he hasnoted improvement in his voiding symptoms when he is consistently doing pelvic floor PT. We will pursue uroflow study later this afternoon for further assessment. I have also asked the patient to complete a voiding diary further evaluate his functional bladder capacity. Once voiding diary has been completed, he will send results via portal to my office for review. Patient is in agreement with the plan. All questions addressed, patient expressed understanding. Total time: 40 min Signed by: Kate Egan P.A.-C. 08/18/2023 8:10 AM CDT documented in this encounter Plan of Treatment Upcoming Encounters Date Type Department Care Team (Late st Contact Info) Description 11/17/2023 9:30 AM CDT Clinical Support Department of Physical Medicine and Rehabilitation in [place], [place] [address] [place] [phone] Corrine Lewis P.A.-C., M.S. [address] [place] [phone] Bel Rojo P.T., D.P.T., OCS [address] [place] [phone] 11/29/2023 8:00 AM CDT Appointment Department of Orthopedic Surgery in [place], [place] [address] [place] [phone] Ahsan Talbert M.D., Ph.D. [address] [place] [phone] 01/06/2024 9:15 AM JIG BORE OPERATOR Office Visit Department of Orthopedic Surgery in [place], [place] [address] [place] [phone] Jose Crawford M.D. [address] [place] [phone] documented as of this encounter Visit Diagnoses Diagnosis Frequency Urinary- Primary Hesitancy Urinary documented in this encounter Additional Health Concerns Assessment Noted Time PHQ-9 Depression Total Score: 5 07/07/19 24 9:17 PM CDT documented as of this encounter Care Teams Bell Maker Relationship Specialty Start Date End Date Elsewhere, Pcp PCP - General Internal Medicine 05/22/18 documented as of this encounter
--- OUTSIDE RECORDS SUMMARY | 2023-11-08 15:13 | XMS_ITS | Encounter Summary ---
Author Organization [email or web address] Address [address] [address] Care Team Providers Care Utility Locator Name Role Phone Eliana Guerra MD Primary Care Provider [phone] Encounter Details Date Type Department Care Team (Latest Contact Info) Description 09/12/2023 6:00 AM CDT - 09/12/2023 11:59 PM CDT Hospital Encounter Security Contact - None Anurag Hoffman MD [address] [place] [phone] Discharge Disposition: Home Social History Tobacco Use Types Packs/Day Years Used Date Smoking Tobacco: Never Assessed Sex and Gender Information Value Date Recorded Sex Assigned at Not on file Gender Identity Not on file Sexual Orientation Not on file documented as of this encounter Plan of Treatment Not on file documented as of this encounter Procedures Procedure Name Priority Date/Time Associated Diagnosis Comments TB QUANTIFERON GOLD PLUS Routine 09/12/2023 9:26 AM CDT TB QUANTIFERON GOLD PLUS MITOGEN Routine 09/12/2023 9:26 AM CDT TB QUANTIFERON GOLD PLUS TB2 Routine 09/12/2023 9:26 AM CDT TB QUANTIFERON GOLD PLUS TB1 Routine 09/12/2023 9:26 AM CDT TB QUANTIFERON GOLD PLUS NIL Routine 09/12/2023 9:26 AM CDT documented in this encounter Results * TB QuantiFERON Gold Plus Mitogen (09/12/2023 9:26 AM CDT) MITOGEN >10.000 IU/mL 09/13/2023 11:45 AM CDT [facility] Blood Venipuncture / Unknown 09/12/2023 9:26 AM CDT 09/12/2023 9:34 AM CDT Anurag Hoffman MD LAB_1 Performing Organization Address [facility] [[email or web address]] Co de Phone Number [facility] [address] [place] [address] * TB QuantiFERON Gold Plus TB2 (09/12/2023 9:26 AM CDT) TB2 0.010 IU/mL 09/13/2023 11:45 AM CDT [facility] Blood Venipuncture / Unknown 09/12/2023 9:26 AM CDT 09/12/2023 9:34 AM CDT Anurag Hoffman MD LAB_1 Performing Organization Address [facility] Phone Number [facility] [address] [place] [address] * TB QuantiFERON Gold Plus TB1 (09/12/2023 9:26 AM CDT) TB1 0.015 IU/mL 09/13/2023 11:45 AM CDT [facility] Blood Venipuncture / Unknown 09/12/2023 9:26 AM CDT 09/12/2023 9:34 AM CDT Anurag Hoffman MD LAB_1 Performing Organization Address [facility] de Phone Number [facility] [address] [place] [address] * TB QuantiFERON Gold Plus NIL (09/12/2023 9:26 AM CDT) TB QuantiFERON Gold Plus Negative, M. tuberculosis Infection NOT likely Negative, M. tuberculosis Infection NOT likely 09/13/2023 11:47 AM CDT [facility] NIL 0.001 IU/mL 09/13/2023 11:47 AM CDT [facility] TB1-NIL 0.02 IU/mL 09/13/2023 11:47 AM CDT [facility] TB2-NIL 0.01 IU/mL 09/13/2023 11:47 AM CDT [facility] Mitogen-NIL 10.00 IU/mL 09/13/2023 11:47 AM CDT [facility] Blood Venipuncture / Unknown 09/12/2023 9:26 AM CDT 09/12/2023 9:34 AM CDT Narrative [facility] - 09/13/2023 11:47 AM CDT The [...] immune response. For more information refer to: https://www.cdc.gov/mmwr/preview/mmwrhtml/tc9935w6.htm. Anurag Hoffman MD LAB_1 [facility] [address] documented in this encounter Visit Diagnoses Not on filedocumented in this encounter Care Teams Utility Locator Relationship Specialty Start Date End Date Eliana Guerra MD [address] [place] [address] PCP - General Family Practice 12/04/19 documented as of this encounter
--- OUTSIDE RECORDS SUMMARY | 2023-11-08 15:13 | XMS_ITS | Encounter Summary ---
Author Organization [facility] Address [address] [place] [address] Care Team Providers Care Clothing Pattern Preparer Name Role Phone Elsewhere, Pcp Primary Care Provider Unavailabl e Encounter Details Date Type Department Care Team (Latest Contact Info) Description 08/18/2023 7:00 AM CDT - 08/18/2023 11:59 PM CDT Hospital Encounter Department of Laboratory Medicine and Pathology, [facility], in [place], [place] [address] [place] [phone] Tam Clark M.D. [address] [place] [phone] Frequency Urinary Discharge Disposition: Home or Self Care Social History Tobacco Use Types Packs/Day Years Used Date Smoking Tobacco: Never Smokeless Tobacco: Never Alcohol Use Standard Drinks/Week Comments Yes 1 (1 standard drink = 0.6 oz pur e alcohol) [facility] Utilities Answer Date Recorded In the past 12 months has [facility] [employer], oil, or water [employer] threatened to shut off services in your [...] How often do you attend [facility] or protestant services? More than 4 times per year 2022 Do you belong to any clubs o r organizations such as restoration groups, unions, fraternal or athletic groups, or [...] your living situation today? I have a [facility] place to live 05/22/2023 Education Answer [...] Department of Physical Medicine and Rehabilitation in [place], [place] [address] [place] [phone] Corrine Lewis P.A.-C., M.S. [address] [place] [phone] Bel Rojo P.T., D.P.T., OCS [address] [place] [phone] 11/29/2023 8:00 AM CDT Appointment Department of Orthopedic Surgery in [place], [place] [address] [place] [phone] Ahsan Talbert M.D., Ph.D. [address] [place] [phone] 01/06/2024 9:15 AM RF TECHNICIAN Office Visit Department of Orthopedic Surgery in [place], [place] [address] [place] [phone] Jose Crawford M.D. [address] [place] [phone] documented as of this encounter Procedures Procedure Name Priority Date/Time Associated Diagnosis Comments DIPSTICK, U Routine 08/18/2023 7:31 AM CDT MICROSCOPIC AUTOMATED Routine 08/18/2023 7:31 AM CDT PH, U Routine 08/18/2023 7:31 AM CDT OSMOLALITY, U Routine 08/18/2023 7:31 AM CDT URINALYSIS WITH MICROSCOPIC Routine 08/18/2023 7:31 AM CDT Frequency Urinary documented in this encounter Results * Dipstick, Urine (08/18/2023 7:31 AM CDT) [...] M.D. LAB URINE ORDERABLES Performing Organization Address City/[facility]/ZIP Co de Phone Number [facility] 200 [place] [address] * pH, Urine (08/18/2023 7:31 AM CDT) Pathologist [facility] pH, U 6.1 4.5 - 8.0 08/18/2023 8:5 9 AM CDT DTL Urine 08/18/2023 7:31 AM CDT 08/18/2023 7:41 AM CDT Tam Clark M.D. LAB URINE ORDERABLES Performing Organization Address [facility]/ZIP Co de Phone Number [facility] [address] [place] [address] * Microscopic Automated (08/18/2023 7:31 AM CDT) Pathologist [facility] Microscopy Normal 08/18/2023 7:58 AM CDT DTL RBC None Seen <3 /hpf 08/18/2023 7:58 AM CDT DTL WBC None Seen /hpf 08/18/2023 7:58 AM CDT DTL Comment: ----REFERENCE VALUE---- <4 ??(Males) <11 (Females) Urine 08/18/2023 7:31 AM CDT 08/18/2023 7:41 AM CDT Tam Clark M.D. LAB URINE ORDERABLES Performing Organization Address [facility] Co de Phone Number [facility] [address] 200 [place] [address] * Osmolality, Urine (08/18/2023 7:31 AM CDT) Osmolality, U 356 150 - 1150 mOsm/kg 08/18/2023 8:59 AM CDT DTL Urine 08/18/2023 7:31 AM CDT 08/18/2023 7:41 AM CDT Tam Clark M.D. LAB URINE ORDERABLES Performing Organization Address [facility] Co de Phone Number [facility] 200 [place] [address], [place] [address] * Urinalysis, with Microscopic: Urine, Midstream (08/18/2023 [...] CDT Tam Clark M.D. LAB URINE ORDERABLES [facility] [address] [place] [address], [facility] [address] [place] [address] documented in this encounter Visit Diagnoses Diagnosis Frequency Urinary documented in this encounter Additional Health Concerns Assessment Noted Time PHQ-9 Depression Total Score: 5 07/07/19 24 9:17 PM CDT documented as of this encounter Care Teams Clothing Pattern Preparer Relationship Specialty Start Date End Date Elsewhere, Pcp PCP - General Internal Medicine 05/22/18 documented as of this encounter
--- OUTSIDE RECORDS SUMMARY | 2023-11-08 15:13 | XMS_ITS | Encounter Summary ---
Author Organization [facility] Address [address] [place] [address] Care Team Providers Care Pan Shover Name Role Phone Elsewhere, Pcp Primary Care Provider Unavailabl e Reason for Visit * Outpatient (Routine) - Closed Specialty Diagnoses / Procedures Referred By Ye lund Referred To Contact Urology Kate Egan P.A.-CMackenzie [address] [place] [phone] Kate Egan P.A.-CMackenzie [address] [place] [phone] Referral ID Status Reason Start Date Expiration Date Visits Re quested Visits Authorized [id number] Closed 08/24/2023 02/22/2025 1 1 Encounter Details Date Type Department Care Team (Late st Contact Info) Description 09/01/2023 1:00 PM CDT Telemedicine Department of Urology in [place], [place] [address] [place] [phone] Kate Egan, P.A.-CMackenzie [address] [place] [phone] Retention Urinary (Primary Dx); Dysfunction Pelvic Floor Male Social History Tobacco Use Types Packs/Day Years Used Date Smoking Tobacco: Never Smokeless Tobacco: Never Alcohol Use Standard Drinks/Week Comments Yes 1 (1 standard drink = 0.6 oz pur e alcohol) [facility] Utilities Answer Date Recorded In the past 12 months has [employer], gas, oil, or water [employer] threatened to shut off services in your [...] week 2022 How often do you attend [facility] or tenriism services? More than 4 times per year 2022 Do you belong to any clubs o r organizations such as presybeterian groups, unions, fraternal or athletic groups, or [...] Date Recorded PHQ-2 Score 0 07/07/2023 [facility] Medical [...] as of this encounter Progress Notes * Kate Egan P.A.-C. - 09/01/2023 1:00 PM CDT SUBJECTIVE CHIEF COMPLAINT/PURPOSE FOR VISIT Follow-up visit Patient's visit is completed virtually, via video HISTORY OF PRESENT ILLNESS is a pleasant 23 y.o.male whom I met on 08/18/2023 for urinary complaints. At the time of our visit, patient described a constellation of symptoms including intermittent frequency, urgencyat times incontinence as well as obstructive complaints including hesitancy and feelings of incomplete emptying. Uroflow study was completed which demonstrated a voided volume of 32 mL, peak of 9 andan ultrasound residual urine of 750 mL. He was taught intermittent catheterization and has been performing twice daily. He has also been working with pelvic floor physical therapy as he has a longstanding history of pelvic pain and was noted on his initial visit to have significant increased tension of the pelvic floor. Patient has not noted difficulty with intermittent catheterization he has been performing this twice daily and his postvoid residuals have varied from around 200 mL to 400-500 mL. He has noted improvement in his urinary frequency since initiation of intermittent catheterization and patient states he would be ???happy living life the way it is now?? as he is able to catheterize prior to work and go throughout the majority of his day without worrying about urinary frequency or urgency. He did however lose his job last week and he states that the stress from this experience has resulted in worsening ability to empty his bladder as of late. He does plan to continue with pelvic floor physical therapy. MEDICAL HISTORY Past Medical History: Diagnosis Date [...] Jose Crawford M.D.; Location:[facility] OR ASSESSMENT / PLAN #1 Urinary retention, on intermittent catheterization #2 Pelvic floor dysfunction #3 Pelvic pain #4 Erectile dysfunction I had the pleasure of meeting with in follow-up virtually today. He has noted improvement in his voiding complaints with the use of intermittent catheterization. I have encouraged him to continue this twice daily. Should his catheterize residuals reduced and he consistently catheterizes for less than 100 mL, he can reduce his catheterization frequency. Discussed with the patient that Kyler suspicious that his pelvic floor dysfunction and pelvic floor tension or contributing to his inability to empty effectively and would encouraged him to continue with pelvic floor physical therapy.We did discuss option of considering formal urodynamic testing for further evaluation of detrusor fu nction, however we will hold off at this point in time. He may require a cast to treat point complaints in the future and will be in contact with my office if he is unable to perform intermittent catheterization during this timeframe as we did discuss alternative strategies depending upon PVRs at that time. Patient is in agreement with the plan. All questions addressed, patient expressed understanding. Total time: 20 min Signed by: Kate Eagn P.A.-C. 09/01/2023 1:25 PM CDT documented in this encounter Plan of Treatment Upcoming Encounters Date Type Department Care Team (Late st Contact Info) Description 11/17/2023 9:30 AM CDT Clinical Support Department of Physical Medicine and Rehabilitation in [place], [place] [address] [place] [phone] Corrine Lewis P.A.-C., M.S. [address] [place] [phone] Bel Rojo P.T., D.P.T., OCS [address] [place] [phone] 11/29/2023 8:00 AM CDT Appointment Department of Orthopedic Surgery in [place], [place] [address] [place] [phone] Ahsan Talbert M.D., Ph.D. [address] [place] [phone] 01/06/2024 9:15 AM LICSW Office Visit Department of Orthopedic Surgery in [place], [place] [address] [place] [phone] Jose Crawford M.D. [address] [place] [phone] documented as of this encounter Visit Diagnoses Diagnosis Retention Urinary- Primary Dysfunction Pelvic Floor Male documented in this encounter Additional Health Concerns Assessment Noted Time PHQ-9 Depression Total Score: 5 07/07/19 24 9:17 PM CDT documented as of this encounter Care Teams Pan Shover Relationship Specialty Start Date End Date Elsewhere, Pcp PCP - General Internal Medicine 05/22/18 documented as of this encounter
--- OUTSIDE RECORDS SUMMARY | 2023-11-08 15:13 | XMS_ITS | Patient Health Record ---
Author Organization [facility] Address [address] [facility] [address] [place] [address] Care Team Providers Care Vehicle Insurance Agent Name Role Phone Charlie GARCIA, Eliana Primary Care Provider [phone] JOHANNA GARCIA, PhD, SINCERE Reza Reason For Referral No Information Medications Medication SIG (Take, Route, Fr equency, Duration) Notes Start Date End Date Status Iron Not-Taking Problems Problem Type SNOMED Code ICD Code Onset Dates Problem Status W/U Status Risk Notes Problem 071082719 Pectus excavatum (Q67.6) Active confirmed Problem 187096726 Connective tissue disorder (M35.9) Active confirmed Problem 77242840 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 Plan Of Treatment Pending Test Test Name Order Date C-Reactive Protein (CRP) (CRP) 8 Insurance Providers Payer Name Payer Address Payer Phone Subscriber Number Group Number Insured Name Patient Relationship to Insured Coverage Start Date Coverage End Date BLUE PLUS PMAP-20 19 [address] [address] [place] [phone] [id number] [facility] Paramjit Boyce Self - patient is the insured 9 Medical (General) History Medical History History ICD Code Syndromes/anomalies: Connective tissue d isorder Other: Pectus excavatum, Acquired pectus carinatum Surgical History Surgery Date(Month/Year) Daja procedure for pectus excavatum 10/08 10/25
== END 2023-11-08 15:40 | disposition home or self-care (01) ==
LOC: ED 15:08
PROVIDERS: Emergency Provider Family Medicine; PCP Family Medicine
DX: R33.9 Retention of urine, unspecified (principal)
CPT/HCPCS: 51702; 81001; 99283; 99284

== ENCOUNTER 2023-11-23 14:43 | Outpatient (CLI) | payer BC, SELFPAY ==
--- NOTE | 2023-11-23 14:45 | CRLHL7_ITS ---
For Patients: As a result of the Century Cures Act, medical imaging exams and procedure reports are released immediately into your electronic medical record. You may view this report before your referring provider. If you have questions, please contact your health care provider. EXAM: MRI OF THE RIGHT ANKLE, WITHOUT CONTRAST CLINICAL INDICATION: Chronic ankle pain. Peroneal tendon subluxation. COMPARISON PLAIN FILMS: 11/23/2023. COMPARISON CROSS-SECTIONAL IMAGING STUDIES: None. TECHNICAL: Axial, sagittal and coronal T1, PD, PD FS and STIR images. FINDINGS: OSSEOUS STRUCTURES: No fracture, bone marrow contusion, stress change or marrow replacement process. JOINT SPACES: The ankle joint space is maintained without joint effusion. No talar dome osteochondral lesion. No joint bodies are identified. The subtalar joints are maintained. The talonavicular and calcaneocuboid joint spaces are maintained. Joint spaces within the visualized midfoot and at the midfoot forefoot junction are maintained. LIGAMENTS: Syndesmotic Ligaments: The anterior and posterior syndesmotic ligaments are intact. Lateral Ligaments: The anterior talofibular ligament is intact. The calcaneofibular ligament is intact. The posterior talofibular ligament is intact. Medial Ligaments: The superficial and deep components of the deltoid ligament complex are maintained. Spring Ligaments: The calcaneonavicular spring ligament complex is intact. TENDONS: Flexor Tendons: The posterior tibial, flexor digitorum longus and flexor hallucis longus tendons are intact. Extensor Tendons: The anterior extensor tendons are intact. Achilles Tendon: The Achilles tendon is intact without tendinosis, tear or peritendinitis changes. Peroneal Tendons: The peroneus longus and brevis tendons are intact. No subluxation of the peroneal tendons. TARSAL TUNNEL: The soft tissues of the tarsal tunnel are normal without mass or fluid collection. No abnormality along the course of the medial or lateral plantar nerves. SINUS TARSI: The structures of the sinus tarsi appear normal. No disruption of the interosseous ligaments or significant effacement of fat. PLANTAR SOFT TISSUES: The plantar fascia is intact. No atrophy or edema of the abductor digiti minimi muscle belly. SOFT TISSUES: There is no soft tissue mass or fluid collection. IMPRESSION: 1. Unremarkable MRI of the right ankle. Dictated by Seth Cabrera MD @ 11/24/2023 10:11:20 AM (Electronically Signed)
--- OUTSIDE RECORDS SUMMARY | 2023-11-23 14:47 | XMS_ITS | Clinical Summary ---
Author Organization [facility] Address [place], [place] [address] Care Team Providers Care Home Performance Consultant Name Role Phone Eliana Guerra MD Primary Care Provider [facility] [place] Unavailable Allergies No known active allergies Medications Medication Sig Dispensed Refills Start Date End Date Status acetaminophen (TYLENOL) 500 mg capsule Take 1,000 mg by mouth every 6 hours if needed. 02/11/2021 Active diclofenac topical (VOLTAREN) 1 % gelIndications:Scott lofemoral pain syndrome of both knees,Instability of both shoulder joints 2-4 grams on knees and shoulder 100 g 2 04/15/2021 Active tadalafiL (CIALIS) 5 mg tablet Take 5 mg by mouth. 06/19/2021 Active polyethylene glycol-electrolyte (GOLYTELY) 236-22.74-6.74 -5.86 gram suspension Drink 1st portion of prep at 6 PM the evening before. 2nd portion must be started 3 hours before and finished 2 hours prior to report time 01/20/2022 Active ferrous sulfate, 65 mg elemental, (FeroSuL) tabletIndications:Re stless legs Take 1 Tablet (325 mg) by mouth once daily with a meal. 90 Tablet 04/16/2022 Active loratadine (CLARITIN) 10 mg tabletIndications:Pe rennial allergic rhinitis Take 1 Tablet (10 mg) by mouth once daily. 90 Tablet 3 01/20/2023 Active diclofenac topical (Voltaren) 1 % gelIndications:Right knee pain, unspecified chronicity,Recurrent right knee instability Apply 2 g topically to affected area(s) four times daily. 100 g 2 04/14/2023 Active famotidine (PEPCID) 40 mg tabletIndications:He art burn Take 1 Tablet (40 mg) by mouth once daily. 90 Tablet 1 04/21/2023 Active tamoxifen (NOLVADEX) 20 mg tablet Take 20 mg by mouth once daily. 06/07/2023 Active hydrOXYzine HCL (ATARAX) 25 mg tabletIndications:Ac marcel reaction to situational stress Take 1 Tablet (25 mg) by mouth at bedtime if needed for Anxiety. 30 Tablet 09/29/2023 Active cyclobenzaprine (FLEXERIL) 5 mg tabletIndications:Mu scle spasm Take 1 Tablet (5 mg) by mouth 3 times daily if needed for Muscle Spasm. 30 Tablet 11/02/2023 Active aspirin (ECOTRIN) 81 mg enteric coated tablet Take 81 mg by mouth two times daily with meals. Active durable medical equipment (DME)Indications:Chr onic hip pain, unspecified laterality Manual reclining wheelchair with bilateral LE elevating leg rests 1 Each 11/11/2023 Active polyethylene glycoL (MIRALAX) 17 gram/scoop powderIndications:Co nstipation, acute Mix 1 scoop (17 g) in liquid then take by mouth two times daily. Take 1 capful twice daily until having regular, soft stools. Hold for watery stools. 510 g 3 11/21/2023 Active ondansetron (ZOFRAN ODT) 4 mg disintegrating tabletIndications:Na usea Place 1 Tablet (4 mg) on the tongue every 8 hours if needed for Nausea/Vomiting . 5 Tablet 11/21/2023 Active cyclobenzaprine (FLEXERIL) 5 mg tabletIndications:Mu scle spasm Take 1 Tablet (5 mg) by mouth three times daily. 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 Tall stature 03/23/2018 Connective tissue disorder 01/04/2018 Underweight in adolescence 01/04/2018 Scoliosis 01/04/2018 Congenital pectus excavatum 12/29/2013 Encounters Date Type Department Care Team Description 11/22/2023 10:30 AM CDT Home Care Visit [facility] [address] [place] [address] Sole Sommer, PT PT - HOME VISIT 11/22/2023 9:00 AM CDT Home Care Visit [facility] [address] [place] [phone] Bella Garcia COTA OT - HOME VISIT 11/22/2023 Telephone [facility] [address] [place] [address] Eliana Guerra MD 11/22/2023 Home Care Visit [facility] [address] [place] [phone] Sole Sommer, PT CARE COORDINATION 11/21/2023 9:15 AM CDT Home Care Visit [facility] [address] [place] [phone] Deepa Loza REHABILITATION AIDE/SCHEDULER - HOME VISIT 11/21/2023 Orders Only [facility] [address] [place] [address] Eliana Guerra MD <No scans attached> 11/18/2023 2:00 PM CDT Home Care Visit [facility] [address] [place] [phone] Irais Laboy RN SN - HOME VISIT 11/18/2023 1:15 PM CDT Home Care Visit [facility] [address] [place] [phone] Concepcion Varner RN Student REHABILITATION AIDE/SCHEDULER - HOME VISIT 11/18/2023 10:30 AM CDT Home Care Visit [facility] [address] [place] [phone] Melissa Rowley, PT PT - HOME VISIT 11/18/2023 Telephone [facility] [address] [place] [address] Irais Laboy, drop worker ( HOME CARE-BOWEL REGIMEN) 11/16/2023 12:00 PM CDT Home Care Visit [facility] [address] [place] [address] Konrad Jean, OT OT - INITIAL ASSESSMENT 11/16/2023 Home Care Visit [facility] [address] [place] [phone] Reyes Meadows, VIDEO PRESENTATION OPERATOR CARE COORDINATION 11/15/2023 1:00 PM CDT Office Visit [facility] [address] [place] [address] Larry Green, DPM Follow Up (Bilateral peroneal tendonitis, New orthtoics) 11/15/2023 Travel 11/14/2023 9:15 AM CDT Home Care Visit [facility] [address] [place] [address] Deepa Loza REHABILITATION AIDE/SCHEDULER - HOME VISIT 11/14/2023 Home Care Visit [facility] [address] [place] [address] Megan Arevalo, [facility] HYGIENE TEACHER - CASE COMMUNICATION 11/11/2023 Home Care Visit [facility] [address] [place] [address] Melissa Rowley, PT CARE COORDINATION 11/11/2023 Telephone [facility] [address] [place] [address] Eliana Guerra MD Outside Order (Order for wheelchair) 11/10/2023 8:00 AM CDT Home Care Visit [facility] [address] [place] [address] Ines Daigle REHABILITATION AIDE/SCHEDULER - HOME VISIT 11/10/2023 Home Care Visit [facility] [address] [place] [address] Megan Arevalo, [facility] HYGIENE TEACHER - TELEHEALTH ASSESSMENT 11/09/2023 2:00 PM CDT Home Care Visit [facility] [address] [place] [phone] Deborah Hager, RN SN - INITIAL ASSESSMENT 11/09/2023 Home Care Visit [facility] [address] [place] [phone] Sole Sommer, PT CARE COORDINATION 11/09/2023 Telephone [facility] [address] [place] [address] Sole Sommer, PT Home Care (Medication Changes) 11/08/2023 11:00 AM CDT Home Care Visit [facility] [address] [place] [phone] Sole Sommer, PT PT - OASIS START OF CARE 11/08/2023 Plan of Care Documentation [facility] [address] [place] [phone] 11/08/2023 Home Care Visit [place] [address] [place] [phone] Manuela Morton, RN CARE COORDINATION 11/08/2023 Telephone [facility] [address] [place] [phone] Sole Sommer, PT Home Care (Garza Order) 11/08/2023 Telephone [facility] [address] [place] [address] Sole Sommer, PT Home Care (SN Orders) 11/08/2023 Telephone [facility] [address] [place] [address] Eliana Guerra MD ACC Order Request (verbal orders) 11/06/2023 Refill [facility] [address] [place] [address] Eliana Guerra MD Refill Request (Hydroxyzine Hcl) 11/02/2023 1:35 PM CDT Office Visit [facility] [address] [place] [address] Eliana Guerra MD Physical (23 year old) 11/02/2023 Travel 10/31/2023 1:30 PM CDT Telemedicine [facility] [address] [facility] [place] [address] Una Apodaca, Bradley, Mental Health Intake 10/31/2023 Travel 10/27/2023 8:30 AM CDT Office Visit [facility] [address] [place] [address] Tuan Jin, [facility] Visit 10/27/2023 Travel 10/18/2023 10:30 AM CDT Office Visit [facility] [address] [place] [address] Tuan Jin, [facility] Visit 10/18/2023 Travel 09/29/2023 2:25 PM CDT Office Visit [facility] [address] [place] [address] Eliana Guerra MD Medication Management 09/29/2023 Travel [...] Sign Reading Time Taken Comments Blood Pressure 130/86 11/22/2023 11:00 AM CDT Pulse 64 11/22/2023 11:00 AM CDT Temperature 36.5 ??C (97.7 ??F) 11/22/2023 1 1:00 AM CDT Respiratory Rate 18 11/22/2023 11:0 0 AM CDT Oxygen Saturation 100% 11/22/2023 11: 00 AM CDT Inhaled Oxygen Concentration - - Weight 73.1 kg (161 lb 3.2 oz) 11/16/2023 12:40 PM CDT clothes and cast on both hands / forearms, and waist < > chest. Height 188.6 cm (6' 2.25) 11/02/2023 1 :38 PM CDT Body Mass Index 20.56 11/02/2023 1:38 PM CDT Plan of Treatment Upcoming Encounters Date Type Department Care Team (Late st Contact Info) Description 11/24/2023 4:00 AM CDT Home Care Visit [address] [phone] Irais Laboy, RN 11/24/2023 10:45 AM CDT Home Care Visit [address] [phone] Sole Sommer, PT [address] [place] [address] 11/24/2023 4:00 PM CDT Home Care Visit [address] [phone] Bella Garcia COTA [address] [place] [address] 11/25/2023 9:15 AM CDT Home Care Visit [place] [id number] [place] [phone] Deepa Loza [address], [place] [address] 11/28/2023 3:00 AM CDT Home Care Visit [facility] [address] [place] [address] Sole Sommer, PT [address] [place] [address] 11/28/2023 7:00 AM CDT Home Care Visit [facility] [address] [place] [phone] Deepa Loza [address] [place] [address] 11/29/2023 4:00 AM CDT Home Care Visit [place] [address] [place] [phone] Bella Garcia, BRETT [address] [place] [address] 11/30/2023 3:00 AM CDT Home Care Visit [place] [address] [place] [phone] Sole Sommer, PT [address] [place] [address] 11/30/2023 9:30 AM CDT Office Visit [address] [phone] Una Apodaca, Bradley, LP [address] [place] [address] 12/01/2023 4:00 AM CDT Home Care Visit [place] [address] [place] [phone] Irais Laboy RN 12/01/2023 9:00 AM CDT Home Care Visit [address] [phone] Deepa Loza [address] [place] [address] 12/02/2023 4:00 AM CDT Home Care Visit [facility] [address] [place] [phone] Bella Garcia WEST [address] [place] [address] 12/05/2023 9:30 AM CDT Office Visit [address] [phone] Una Apodaca PsyD, [address] [place] [address] 12/06/2023 3:00 AM CDT Home Care Visit [place] [address] [place] [phone] Sole Sommer, PT [address] [place] [address] 12/07/2023 4:00 AM CDT Home Care Visit [place] [address] [place] [phone] Bella Garcia WEST [address] [place] [address] 12/08/2023 3:00 AM CDT Home Care Visit [place] [address] [place] [phone] Sole Sommer, PT [address] [place] [address] 12/08/2023 4:00 AM CDT Home Care Visit [address] [phone] Irais Laboy, RN 12/09/2023 4:30 AM CDT Home Care Visit [facility] [address] [place] [phone] Konrad Jean, OT [address] [place] [address] 12/19/2023 9:30 AM FERTILIZER MIXER Office Visit [facility] 100 [facility] [place] [phone] Una Apodaca, PsyD, LP [address] [place] [address] Health Maintenance Due Date Last Done Comments COVID-19 vaccine series ( season) 2023 11/02/2023, 04/16/2022, 02/18/2021, Additional history [...] ve Non-Reacti ve 08/18/2020 2:42 PM CDT [facility] Blood BLOOD SPECIMEN / Unknown Venipuncture / Unknown 08/18/2020 8:10 AM CDT 08/18/2020 8:11 AM CDT Eliana Guerra MD SEND OUTS [facility] [address] [place] [address], * EXPOSURE (BBF) ANTI HCV (08/18/2020 8:10 AM CDT) HEPATITIS C ANTIBODY Non-React alex Non-React alex 08/18/2020 2:57 PM CDT [facility] Comment:Antibodies to HCV no t detected; does not exclude the possibility of exposure to HCV. Blood BLOOD SPECIMEN / Unknown Venipuncture / Unknown 08/18/2020 8:10 AM CDT 08/18/2020 8:11 AM CDT Eliana Guerra MD SEND OUTS [facility] [address] [place] [address], from Last 3 Months or Most Recently Relevant to Health Maintenance Care Teams Home Performance Consultant Relationship Specialty Start Date End Date Eliana Guerra MD [address] [place] [address] PCP - General Family Practice 10/20/17 [place] [id number] [address] 11/07/23
--- OUTSIDE RECORDS SUMMARY | 2023-11-23 14:47 | XMS_ITS | Encounter Summary ---
Author Organization [facility] Address [address] [place] [address] Care Team Providers Care Pattern Chain Builder Name Role Phone Elsewhere, Pcp Primary Care Provider Unavailabl e Reason for Visit * Reason Onset Date Comments Communication 11/22/2023 Encounter Details Date Type Department Care Team (Late st Contact Info) Description 11/22/2023 Clinical Communication Department of Sports Medicine in [place], [place] [address] [place] [phone] Ahsan Talbert M.D., Ph.D. [address] [place] [phone] Communication Social History Tobacco Use Types Packs/Day Years Used Date Smoking Tobacco: Never Smokeless Tobacco: Never Alcohol Use Standard Drinks/Week Comments Yes 1 (1 standard drink = 0.6 oz pur e alcohol) [facility] Utilities Answer Date Recorded In the past 12 months has [facility] [employer], gas, oil, or water [employer] threatened to shut off services in your [...] How often do you attend chur or gnosticism services? More than 4 times per year 2022 Do you belong to any clubs o r organizations such as spiritism groups, unions, fraternal or athletic groups, or [...] [facility] of Occupat ional Health - [...] your living situation today? I have a [facility] place to live 05/22/2023 Education Answer Date Recorded What is the highest level of school you have completed or the highest degree you have received? Some college, no degree 05/24/2020 Sex and Gender Information Value Date Recorded Sex Assigned at Male 10/29/2020 12:38 PM CDT Legal Sex Male 1:45 PM PAPIER MACHE MOLDER Gender Identity Male 07/15/2019 8:59 AM CDT Sexual Orientation Straight 07/15/2019 8: 59 AM CDT documented as of this encounter Plan of Treatment Upcoming Encounters Date Type Department Care Team (Late st Contact Info) Description 11/29/2023 8:00 AM CDT Appointment Department of Orthopedic Surgery in [place], [place] 200 [place] [address] Ahsan Talbert M.D., Ph.D. [address] [place] [phone] 11/29/2023 10:00 AM CDT Procedure visit Department of Urology in [place], [place] [address] [place] [phone] Kate Egan P.A.-C. [address] [place] [phone] 01/06/2024 9:15 AM PAPIER MACHE MOLDER Office Visit Department of Orthopedic Surgery in [place], [place] [address] [place] [phone] Jose Crawford M.D. [address] [place] [phone] 01/27/2024 4:30 PM PAPIER MACHE MOLDER Clinical Communication Virtual Review in [place], [place] 200 [place] [phone] 01/30/2024 3:30 PM PAPIER MACHE MOLDER Telemedicine Department of Urology in [place], [place] [address] [place] [phone] Kate Egan P.A.-CMackenzie [address] [place] [phone] documented as of this encounter Visit Diagnoses Not on filedocumented in this encounter Additional Health Concerns Assessment Noted Time PHQ-9 Depression Total Score: 5 07/07/19 24 9:17 PM CDT documented as of this encounter Care Teams Pattern Chain Builder Relationship Specialty Start Date End Date Elsewhere, Pcp PCP - General Internal Medicine 05/22/18 documented as of this encounter
--- OUTSIDE RECORDS SUMMARY | 2023-11-23 14:47 | XMS_ITS ---
Author Organization [facility] Address [address] [place] [address] Care Team Providers Care Bed Operator Name Role Phone Unavailable Unavailable Unavailable Surgery Details Not on file Complications Check Surgery Details section. Procedure Estimated Blood Loss Check Surgery Details section. Procedure Findings Check Surgery Details section. Procedure Specimens Taken Check Surgery Details section.
--- OUTSIDE RECORDS SUMMARY | 2023-11-23 14:47 | XMS_ITS | Encounter Summary ---
Author Organization [facility] Address [address] [place] [address] Care Team Providers Care Ice Cream Chef Name Role Phone Elsewhere, Pcp Primary Care Provider Unavailabl e Reason for Referral * Outpatient (Routine) - Authorized Specialty Diagnoses / Procedures Referred By Ye lund Referred To Contact Diagnoses Retention Urinary Procedures URO Urinary cath removal (UCO) Kate Egan P.A.-CMackenzie [address] [place] [phone] Phone: tel: fax: [facility] Referral ID Status Reason Start Date Expiration Date V isits Requested Visits Authorized [id number] Authorized 11/21/2023 11/20/2024 1 1 Encounter Details Date Type Department Care Team (Late st Contact Info) Description 11/21/2023 Orders Only Department of Urology in [place], [place] [address] [place] [phone] Kate Egan P.A.-CMackenzie [address] [place] [phone] Retention Urinary (Primary Dx) Social History Tobacco Use Types Packs/Day Years Used Date Smoking Tobacco: Never Smokeless Tobacco: Never Alcohol Use Standard Drinks/Week Comments Yes 1 (1 standard drink = 0.6 oz pur e alcohol) [facility] Utilities Answer Date Recorded In the past 12 months has [employer], gas, oil, or water [employer] threatened to shut off services in your [...] 2022 How often do you attend [facility] or bahai services? More than 4 times per year 2022 Do you belong to any clubs o r organizations such as zoroastrianism groups, unions, fraternal or athletic groups, or [...] Date Recorded PHQ-2 Score 0 07/07/2023 [facility] [place] of Occupat ional Health - Occupational Stress [...] your living situation today? I have a [facility] place to live 05/22/2023 Education Answer Date Recorded What is the highest level of school you have completed or the highest degree you have received? Some college, no degree 05/24/2020 Sex and Gender Information Value Date Recorded Sex Assigned at Male 10/29/2020 12:38 PM CDT Legal Sex Male 1:45 PM AEROSPACE ENGINEER OFFICER [employer] Gender Identity Male 07/15/2019 8:59 AM CDT Sexual Orientation Straight 07/15/2019 8: 59 AM CDT documented as of this encounter Plan of Treatment Upcoming Encounters Date Type Department Care Team (Late st Contact Info) Description 11/29/2023 8:00 AM CDT Appointment Department of Orthopedic Surgery in [address] [phone] Ahsan Talbert M.D., Ph.D. [address] [place] [phone] 11/29/2023 10:00 AM CDT Procedure visit Department of Urology in [place], [place] [address] [place] [phone] Kate Egan P.A.-CMackenzie [address] [place] [phone] 01/06/2024 9:15 AM AEROSPACE ENGINEER OFFICER ARMAMENT Office Visit Department of Orthopedic Surgery in [place], [place] [address] [place] [phone] Jose Crawford M.D. [address] [place] [phone] 01/27/2024 4:30 PM AEROSPACE ENGINEER OFFICER [employer] Clinical Communication Virtual Review in [place], [place] 200 [place] [address] 01/30/2024 3:30 PM AEROSPACE ENGINEER OFFICER [employer]ENT Telemedicine Department of Urology in [address] [phone] Kate Egan P.A.-CMackenzie [address] [place] [phone] Scheduled Orders Name Type Priority Associated Diagnoses Orde r Schedule URO Urinary cath removal (UCO) Procedure Routine Retention Urinary Expected: 11/29/2023, Expires: 02/20/2025 documented as of this encounter Visit Diagnoses Diagnosis Retention Urinary- Primary documented in this encounter Additional Health Concerns Assessment Noted Time PHQ-9 Depression Total Score: 5 07/07/19 24 9:17 PM CDT documented as of this encounter Care Teams Ice Cream Chef Relationship Specialty Start Date End Date Elsewhere, Pcp PCP - General Internal Medicine 05/22/18 documented as of this encounter
--- OUTSIDE RECORDS SUMMARY | 2023-11-23 14:47 | XMS_ITS | Encounter Summary ---
Author Organization [facility] Address [address] [place] [address] Care Team Providers Care Shrinking Machine Operator Name Role Phone Elsewhere, Pcp Primary Care Provider Unavailabl e Reason for Referral * Outpatient (Routine) - Authorized Specialty Diagnoses / Procedures Referred By Ye lund Referred To Contact Urology Kate Egan P.A.-C. [address] [place] [phone] Phone: tel: fax: Kate Egan P.A.-CMackenzie [address] [place] [phone] Phone: tel: fax: Referral ID Status Reason Start Date Expiration Date V isits Requested Visits Authorized [id number] Authorized 11/21/2023 05/22/2025 1 1 Scheduling Instructions First available - no need to override. Thanks! Encounter Details Date Type Department Care Team (Late st Contact Info) Description 11/21/2023 Orders Only Department of Urology in [place], [place] [address] [place] [phone] Kate Egan P.A.-C. [address] [place] [phone] Social History Tobacco Use Types Packs/Day Years Used Date Smoking Tobacco: Never Smokeless Tobacco: Never Alcohol Use Standard Drinks/Week Comments Yes 1 (1 standard drink = 0.6 oz pur e alcohol) [facility] Utilities Answer Date Recorded In the [...] often do you attend chur ch or tenriism services? More than 4 times per year 2022 Do you belong to any clubs o r organizations such as latter day groups, unions, fraternal or athletic groups, or [...] Answer Date Recorded PHQ-2 Score 0 07/07/2023 [facility] ional [facility] - [...] PM CDT Legal Sex Male 1:45 PM DIRECTOR OF CLAIMS Gender Identity Male 07/15/2019 8:59 AM CDT Sexual Orientation Straight 07/15/2019 8: 59 AM CDT documented as of this encounter Plan of Treatment Upcoming Encounters Date Type Department Care Team (Late st Contact Info) Description 11/29/2023 8:00 AM CDT Appointment Department of Orthopedic Surgery in [address] [phone] Ahsan Talbert M.D., Ph.D. [address] [place] [phone] 11/29/2023 10:00 AM CDT Procedure visit Department of Urology in [address] [phone] Kate Egan P.A.-CMackenzie [address] [place] [phone] 01/06/2024 9:15 AM DIRECTOR OF CLAIMS Office Visit Department of Orthopedic Surgery in [address] [phone] Jose Crawford M.D. [address] [place] [phone] 01/27/2024 4:30 PM DIRECTOR OF CLAIMS Clinical Communication Virtual Review in [address] [phone] 01/30/2024 3:30 PM DIRECTOR OF CLAIMS Telemedicine Department of Urology in [address] [phone] Kate Egan P.A.-CMackenzie [address] [place] [phone] Scheduled Referrals Name Type Priority Associated Diagnoses Orde r Schedule Urology office visit (clinic) Outpatient Referral Routine Expected: 11/21/2023, Expires: 02/20/2025 documented as of this encounter Visit Diagnoses Not on filedocumented in this encounter Additional Health Concerns Assessment Noted Time PHQ-9 Depression Total Score: 5 07/07/19 24 9:17 PM CDT documented as of this encounter Care Teams Shrinking Machine Operator Relationship Specialty Start Date End Date Elsewhere, Pcp PCP - General Internal Medicine 05/22/18 documented as of this encounter
--- OUTSIDE RECORDS SUMMARY | 2023-11-23 14:47 | XMS_ITS | Referral Summary ---
Author Organization [facility] Address [address] [place] [address] Care Team Providers Care Certified Pathology Assistant Name Role Phone Elsewhere, Pcp Primary Care Provider Unavailabl e Source Comments Patient records contain information from all sites at [facility]. For routine questions regarding patient records, call [phone] during business hours, M-F 8:00 AM - 5:00 PM Central Time. Record requests for emergency care only can be directed to [phone] at any time.[facility] Encounters Date Type Department Care Team Description 11/22/2023 Clinical Communication Department of Sports Medicine in [place], [place] [address] [place] [address] Ahsan Talbert M.D., Ph.D. Communication 11/21/2023 Orders Only Department of Urology in [place], [place] [address] [place] [phone] Kate Egan P.A.-C. 11/21/2023 Orders Only Department of Urology in [place], [place] [address] [place] [phone] Kate Egan P.A.-C. Retention Urinary (Primary Dx) 11/17/2023 Orders Only Department of Urology in [place], [place] [address] [place] [phone] Kate Egan P.A.-C. 11/15/2023 Orders Only Department of Urology in [place], [place] [address] [place] [address] Kate Egan P.A.-C. 11/14/2023 Orders Only Department of Urology in [place], [place] [address] [place] [phone] Kate Egan P.A.-C. 11/14/2023 Orders Only Department of Orthopedic Surgery in [place], [place] [address] [place] [phone] Candida Lucero P.A.-C. Pain Hip Left (Primary Dx) 11/14/2023 Clinical Communication Department of Sports Medicine in [place], [place] [address] [place] [phone] Ahsan Talbert M.D., Ph.D. Wheelchair order needed urgently 11/07/2023 Clinical Communication Department of Sports Medicine in [address] [phone] Ahsan Talbert M.D., Ph.D. Order Needed Today 11/07/2023 Orders Only Department of Orthopedic Surgery in [place], [place] [address] [place] [phone] Candida Lucero P.A.-C. Pain Hip Left (Primary Dx) 11/07/2023 1:00 PM CDT Comprehensive Visit Department of Physical Medicine and Rehabilitation in [address] [phone] Mike Salomon Jr., Irish Saunders P.Brandin., D.P.T. Pain Wrist Left (Primary Dx); Pain Wrist Right 11/07/2023 10:00 AM CDT Comprehensive Visit Department of Physical Medicine and Rehabilitation in [place], [place] [address] [place] [phone] Candida Lucero P.A.-C. Marilyn Vergara, P.T., D.P.T., OCS Pain Hip Left [M25.552] (Primary Dx); Pain Hip Right 11/07/2023 7:54 AM CDT - 11/07/2023 8:34 AM CDT Hospital Encounter Department of Orthopedic Surgery in [place], [place] [address] [place] [phone] Kushal Mendieta M.D. Ahsan Talbert M.D., Ph.D. Mobility Limited (Primary Dx); Pain Hip Left; Hypermobility Joint Discharge Disposition: Home or Self Care 10/31/2023 8:45 AM CDT - 10/31/2023 9:07 AM CDT Hospital Encounter Department of Radiology, [facility], in [place], [place] [address] [place] [address] Candida Lucero P.A.-CMackenzie Pain Hip Right Discharge Disposition: Home or Self Care 10/31/2023 9:08 AM CDT - 10/31/2023 11:59 PM CDT Hospital Encounter Department of Radiology, [facility], in [place], [place] [address] [place] [address] Candida Lucero P.A.-CMackenzie Pain Hip Right Discharge Disposition: Home or Self Care 10/31/2023 9:08 AM CDT - 10/31/2023 11:59 PM CDT Hospital Encounter Department of Radiology, [facility], in [place], [place] [address] [place] [address] Candida Lucero P.A.-CMackenzie Pain Hip Right Discharge Disposition: Home or Self Care 10/25/2023 Orders Only Department of Orthopedic Surgery in [place], [place] [address] [place] [phone] Candida Lucero P.A.-CMackenzie Pain Hip Right (Primary Dx) 10/25/2023 Clinical Communication Department of Sports Medicine in [place], [place] [address] [place] [phone] Ahsan Talbert M.D., Ph.D. 10/25/2023 Orders Only Department of Orthopedic Surgery in [place], [place] [address] [place] [phone] Candida Lucero P.A.-CMackenzie Pain Hip Right (Primary Dx) 10/24/2023 Orders Only Department of Orthopedic Surgery in [place], [place] [address] [place] [phone] Ahsan Talbert M.D., Ph.D. 10/24/2023 1:15 PM CDT Telemedicine Department of Sports Medicine in [address] [phone] Ahsan Talbert M.D., Ph.D. Pain Hip Right (Primary Dx) 10/13/2023 Orders Only Department of Orthopedic Surgery in [address] [phone] Mike Salomon Jr., P.A.-C. Pain Wrist Left (Primary Dx) 09/19/2023 Documentation RST RO Aisha Cleveland M.S.Fior., L.I.C.S.W. 09/19/2023 11:00 AM CDT Virtual Visit Department of Social Work in [address] [phone] Candida Lucero P.A.-C. Aisha Foster M.S.Emiliana, L.I.C.S.W. Pain Hip Bilateral 09/16/2023 Clinical Communication Department of Sports Medicine in [address] [phone] Ahsan Talbert M.D., Ph.D. 09/15/2023 8:00 AM CDT Telemedicine Department of Sports Medicine in [address] [phone] Ahsan Talbert M.D., Ph.D. Pain Hip Bilateral (Primary Dx) 09/13/2023 3:45 PM CDT Clinical Communication Virtual Review in [address] [phone] Pre-visit Intake 09/01/2023 1:00 PM CDT Telemedicine Department of Urology in [address] [phone] Kate Egan P.A.-C. Retention Urinary (Primary Dx); Dysfunction Pelvic Floor Male 08/31/2023 4:00 PM CDT Procedure visit Department of Sports Medicine in [place], [place] [address] [place] [address] Armin Colvin M.D. Pain Hip Left; Pain Hip Right 08/24/2023 Orders Only Department of Urology in [place], [place] [address] [place] [address] Kate Egan P.A.-C. 08/23/2023 Clinical Communication Department of Sports Medicine in [place], [place] [address] [place] [address] Ahsan Talbert M.D., Ph.D. from Last 3 Months Allergies No known active allergies Medications * This document contains information received from the source organization and may not represent a complete record from that organization. famotidine (PEPCID) 40 mg tablet Take 40 [...] day for 21 days. 72 tablet 11/07/2023 11:13 AM CDT 11/07/2023 4 Active oxyBUTYnin (Ditropan) 5 mg tablet Take 1 tablet (5 mg total) by mouth 3 (three) times a day for 14 days. 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 Pain Wrist Left 07/01/2020 DeQuervain's Tenosynovitis 05/23/2020 Pain Hip Bilateral 12/12/2019 Overview (12/12/2019): Added automatically from request for surgery [id number] Tear Hip Labral Degenerative Right 12/12/2019 Overview (12/12/2019): Added automatically from request for surgery [id number] Klinefelter's Syndrome 07/25/2019 Primary Exertional Headache 04/18/2018 [...] 0.6 oz pur e alcohol) [facility] [employer] Answer Date Recorded In the past 12 months has [facility] [employer], gas, oil, or water [employer] threatened to shut off services in your [...] Answer Date Recorded PHQ-2 Score 0 07/07/2023 [facility] of Occupat ional Health - Occupational [...] your living situation today? I have a [facility] place to live 05/22/2023 Education Answer Date Recorded What is the highest level of school you have completed or the highest degree you have received? Some college, no degree 05/24/2020 Sex and Gender Information Value Date Recorded Sex Assigned at Male 10/29/2020 12:38 PM CDT Legal Sex Male 1:45 PM PART TIME RECEPTIONIST Gender Identity Male 07/15/2019 8:59 AM CDT Sexual Orientation Straight 07/15/2019 8: 59 AM CDT Last Filed Vital Signs Vital Sign Reading Time Taken Comments Blood Pressure 126/84 05/23/2023 8:08 AM CDT Pulse 91 05/23/2023 8:08 AM CDT Temperature 37.3 ??C (99.1 ??F) 01/20/2022 10:[address] Respiratory Rate 30 02/11/2021 10:10 AM PART TIME RECEPTIONIST Oxygen Saturation 99% 02/11/2021 10:15 AM PART TIME RECEPTIONIST Inhaled Oxygen Concentration - - Weight 65.8 kg (145 lb) 07/08/2023 9:50 AM CDT Height 185.4 cm (6' 1) 07/08/2023 9:50 AM CDT Body Mass Index 19.13 07/08/2023 9:50 AM CDT Plan of Treatment Upcoming Encounters Date Type Department Care Team (Late st Contact Info) Description 11/29/2023 8:00 AM CDT Appointment Department of Orthopedic Surgery in [address] [phone] Ahsan Talbert M.D., Ph.D. [address] [place] [phone] 11/29/2023 10:00 AM CDT Procedure visit Department of Urology in [address] [phone] Kate Egan, P.A.-C. [address] [place] [phone] 01/06/2024 9:15 AM PART TIME RECEPTIONIST Office Visit Department of Orthopedic Surgery in [address] [phone] Jose Crawford M.D. [address] [place] [phone] 01/27/2024 4:30 PM PART TIME RECEPTIONIST Clinical Communication Virtual Review in [address] [phone] 01/30/2024 3:30 PM PART TIME RECEPTIONIST Telemedicine Department of Urology in [address] [phone] Kate Egan, P.A.-C. [address] [place] [phone] Medical Devices Implanted Type Area Cargo Supervisor Device Identifier Shelf Expiration Date Model / Serial / Lot Hardware E.G. Pins/Screws/R ods Hardware e.g. pins/screws/ rods Chest Wall [employer] [address] [employer] Hip Mini 2.4x8.9 - [id number] Implanted:Qty : 1 on 02/13/2020 by Zoltan Haines M.D. at [facility] Hardware e.g. pins/screws/ rods Right: Hip [employer] [id number] 11/06/2024 AR-2924PH S / / [id number] [address] [employer] Hip Mini 2.4x8.9 - [id number] Implanted:Qty : 2 on 02/13/2020 by Zoltan Hainse M.D. at [facility] Hardware e.g. pins/screws/ rods Right: Hip Ar[employer]rex [id number] 10/07/2024 AR-2924PH S / / [id number] [address] [employer]k Hip Mini 2.4x8.9 - [id number] Implanted:Qty : 1 on 02/13/2020 by Zoltan Haines M.D. at [facility] Hardware e.g. pins/screws/ rods Right: Hip Arthrex [id number] 07/07/2024 AR-2924PH S / / [id number] Kt Fix Intbrc Hnd Wrst - [id number] Implanted:Qty : 1 on 02/02/2021 by Jose Crawford M.D. at [facility] Hardware e.g. pins/screws/ rods Left: Wrist Arthrex [id number] 09/06/2025 AR-8978-[id number] P / / [id number] Procedures Procedure Name Priority Date/Time Associated Diagnosis [...] 10/31/2023 9:21 AM CDT Pain Hip Right NE ARTHCS ASP/INJ MJR JT W US Routine 08/31/2023 4:00 PM CDT Pain Hip Left Pain Hip Right from Last 3 Months Results * MR [...] prior labral repair versus recurrent tear. 2. ??Ybnv-md-dbnsjoac chondromalacia about the right lateral hip. 3. [...] from prior labral repairversus recurrent tear. 2. Gdsd-ww-szmwukii chondromalacia about the right lateral hip. 3. Intraosseous ganglion cyst/degenerative cystic changes about theacetabular roof. Candida Baltazar P.A.-C. IMG MRI PROCEDURES Fi nal Result * FL Hip Arthrogram Injection Right (10/31/2023 [...] the right hip joint for MRarthrogram. NR us Candida Baltazar P.A.-C. IMG FLUOROSCOPY RAGHU MICHELE Final Result * CT Hip Right without IV Contrast [...] asymmetric atrophy of the right psoas muscle. us Candida Baltazar P.A.-C. IMG CT PROCEDURES Scotty steven Result - Final * NE ARTHCS ASP/INJ MJR JT W US (08/31/2023 4:00 PM CDT) Narrative MMODAL - 08/31/2023 4:00 PM CDT Armin Colvin M.D. ? 09/21/2023 ??6:33 AM Hip site - Bilat hip joint: injection only Performed by: Armin Colvin M.D. Authorized by: Candida Lucero P.A.-C. ?? Care team members present 1. Armin Colvin M.D. 2. Monica Castellanos M.S., L.A.TMackenzie, A.T.CMackenzie PROCEDURE DETAILS Procedure Location hip Hip site [...] SEDATION / ANESTHESIA Anesthesia method: local infiltration us Candida Baltazar P.A.-C. PROCEDURE/MINOR SURGI NICOLE ORDERABLES Final Result MMODAL NA from Last [address] [facility] [place] [phone] Care Teams Certified Pathology Assistant Relationship Specialty Start Date End Date Elsewhere, Pcp PCP - General Internal Medicine 05/22/18
--- OUTSIDE RECORDS SUMMARY | 2023-11-23 14:47 | XMS_ITS | Encounter Summary ---
Author Organization [facility] Address [address] [place] [address] Care Team Providers Care Junior Network Engineer Name Role Phone Elsewhere, Pcp Primary Care Provider Unavailabl e Encounter Details Date Type Department Care Team (Late st Contact Info) Description 11/17/2023 Orders Only Department of Urology in [place], [place] [address] [place] [phone] Kate Egan P.A.-C. [address] [place] [phone] Social History Tobacco Use Types Packs/Day Years Used Date Smoking Tobacco: Never Smokeless Tobacco: Never Alcohol Use Standard Drinks/Week Comments Yes 1 (1 standard drink = 0.6 oz pur e alcohol) [facility] Utilities Answer Date Recorded In the past 12 months has e electric, gas, oil, or water [employer] threatened to shut off services in [...] often do you attend chur ch or shinto services? More than 4 times per year 2022 Do you belong to any clubs o r organizations such as adventist groups, unions, fraternal or athletic groups, or [...] Answer Date Recorded PHQ-2 Score 0 07/07/2023 [facility] Answer Date Recorded [...] your living situation today? I have a [facility] place to live 05/22/2023 Education Answer Date Recorded What is the highest level of school you have completed or the highest degree you have received? Some college, no degree 05/24/2020 Sex and Gender Information Value Date Recorded Sex Assigned at Male 10/29/2020 12:38 PM CDT Legal Sex Male 1:45 PM CLAIMS TECHNICIAN Gender Identity Male 07/15/2019 8:59 AM CDT Sexual Orientation Straight 07/15/2019 8: 59 AM CDT documented as of this encounter Plan of Treatment Upcoming Encounters Date Type Department Care Team (Late st Contact Info) Description 11/29/2023 8:00 AM CDT Appointment Department of Orthopedic Surgery in [place], [place] [address] [place] [address] Ahsan Talbert M.D., Ph.D. 200 [place] [address] 11/29/2023 10:00 AM CDT Procedure visit Department of Urology in [place], [place] [address] [place] [address] Kate Egan P.A.-C. [address] [place] [phone] 01/06/2024 9:15 AM CLAIMS TECHNICIAN Office Visit Department of Orthopedic Surgery in [place], [place] [address] [place] [phone] Jose Crawford M.D. [address] [place] [phone] 01/27/2024 4:30 PM CLAIMS TECHNICIAN Clinical Communication Virtual Review in [place], [place] 200 [place] [phone] 01/30/2024 3:30 PM CLAIMS TECHNICIAN Telemedicine Department of Urology in [place], [place] [address] [place] [phone] Kate Egan P.A.-Kathya [address] [place] [phone] documented as of this encounter Visit Diagnoses Not on filedocumented in this encounter Additional Health Concerns Assessment Noted Time PHQ-9 Depression Total Score: 5 07/07/19 24 9:17 PM CDT documented as of this encounter Care Teams Junior Network Engineer Relationship Specialty Start Date End Date Elsewhere, Pcp PCP - General Internal Medicine 05/22/18 documented as of this encounter
--- OUTSIDE RECORDS SUMMARY | 2023-11-23 14:47 | XMS_ITS | Clinical Summary ---
Author Organization [facility] Address [address] [place] [address] Care Team Providers Care Private Advisor Name Role Phone Elsewhere, Pcp Primary Care Provider Unavailabl e Source Comments Patient records contain information from all sites at [facility]. For routine questions regarding patient records, call [phone] during business hours, M-F 8:00 AM - 5:00 PM Central Time. Record requests for emergency care only can be directed to [phone] at any time.[facility] Allergies No known active allergies Medications * [...] (12/12/2019): Added automatically from request for surgery [id number] Tear Hip Labral Degenerative Right 12/12/2019 Overview (12/12/2019): Added automatically from request for surgery [id number] Klinefelter's Syndrome 07/25/2019 Primary Exertional Headache 04/18/2018 [...] Clinical Communication Department of Sports Medicine in [place], [place] [address] [place] [address] Ahsan Talbert M.D., Ph.D. Communication 11/21/2023 Orders Only Department of Urology in [place], [place] [address] [place] [phone] Kate Egan P.A.-C. 11/21/2023 Orders Only Department of Urology in [place], [place] [address] [place] [address] Kate Egan P.A.-C. Retention Urinary (Primary Dx) 11/17/2023 Orders Only Department of Urology in [place], [place] [address] [place] [address] Kate Egan P.A.-C. 11/15/2023 Orders Only Department of Urology in [place], [place] [address] [place] [phone] Kate Egan P.A.-C. 11/14/2023 Orders Only Department of Urology in [place], [place] [address] [place] [phone] Kate Egan P.A.-C. 11/14/2023 Orders Only Department of Orthopedic Surgery in [address] [address] Candida Lucero P.A.-C. Pain Hip Left (Primary Dx) 11/14/2023 Clinical Communication Department of Sports Medicine in [address] [address] Ahsan Talbert M.D., Ph.D. Wheelchair order needed urgently 11/07/2023 1:00 PM CDT Comprehensive Visit Department of Physical Medicine and Rehabilitation in [address] [phone] Mike Salomon Jr., Moshe. Irish White P.T., D.P.T. Pain Wrist Left (Primary Dx); Pain Wrist Right 11/07/2023 10:00 AM CDT Comprehensive Visit Department of Physical Medicine and Rehabilitation in [address] [phone] Candida Lucero P.A.-C. Marilyn Vergara, P.T., D.P.T., OCS Pain Hip Left [M25.552] (Primary Dx); Pain Hip Right 11/07/2023 7:54 AM CDT - 11/07/2023 8:34 AM CDT Hospital Encounter Department of Orthopedic Surgery in [address] [address] Kushal Mendieta M.D. Ahsan Talbert M.D., Ph.D. Mobility Limited (Primary Dx); Pain Hip Left; Hypermobility Joint Discharge Disposition: Home or Self Care 11/07/2023 Clinical Communication Department of Sports Medicine in [address] [address] Ahsan Talbert M.D., Ph.D. Order Needed Today 11/07/2023 Orders Only Department of Orthopedic Surgery in [address] [address] Candida Lucero P.A.-C. Pain Hip Left (Primary Dx) 10/31/2023 9:08 AM CDT - 10/31/2023 11:59 PM CDT Hospital Encounter Department of Radiology, [facility] in [address] [address] Candida Lucero P.A.-C. Pain Hip Right Discharge Disposition: Home or Self Care 10/31/2023 9:08 AM CDT - 10/31/2023 11:59 PM CDT Hospital Encounter Department of Radiology, [facility], in [address] [address] Candida Lucero P.A.-CMackenzie Pain Hip Right Discharge Disposition: Home or Self Care 10/31/2023 8:45 AM CDT - 10/31/2023 9:07 AM CDT Hospital Encounter Department of Radiology, [facility], in [address] [address] Candida Lucero P.A.-CMackenzie Pain Hip Right Discharge Disposition: Home or Self Care 10/25/2023 Orders Only Department of Orthopedic Surgery in [address] [address] Candida Lucero P.A.-CMackenzie Pain Hip Right (Primary Dx) 10/25/2023 Clinical Communication Department of Sports Medicine [place] [address] [place] [address] Ahsan Talbert M.D., Ph.D. 10/25/2023 Orders Only Department of Orthopedic Surgery in [place], [place] [address] [place] [phone] Candida Lucero P.A.-C. Pain Hip Right (Primary Dx) 10/24/2023 1:15 PM CDT Telemedicine Department of Sports Medicine in [place], [place] [address] [place] [phone] Ahsan Talbert M.D., Ph.D. Pain Hip Right (Primary Dx) 10/24/2023 Orders Only Department of Orthopedic Surgery in [place], [place] [address] [place] [phone] Ahsan Talbert M.D., Ph.D. 10/13/2023 Orders Only Department of Orthopedic Surgery in [place], [place] [address] [place] [phone] Mike Salomon Jr., P.A.-C. Pain Wrist Left (Primary Dx) 09/19/2023 11:00 AM CDT Virtual Visit Department of Social Work in [place], [place] [address] [place] [phone] Candida Lucero P.A.-C. Aisha Foster M.S.W., L.I.C.S.W. Pain Hip Bilateral 09/19/2023 Documentation RST RO [facility] Aisha Foster M.S.W., L.I.C.S.W. 09/16/2023 Clinical Communication Department of Sports Medicine in [place], [place] [address] [place] [phone] Ahsan Talbert M.D., Ph.D. 09/15/2023 8:00 AM CDT Telemedicine Department of Sports Medicine in [place], [place] [address] [place] [phone] Ahsan Talbert M.D., Ph.D. Pain Hip Bilateral (Primary Dx) 09/13/2023 3:45 PM CDT Clinical Communication Virtual Review in [place], [place] 200 [place] [address] Pre-visit Intake 09/01/2023 1:00 PM CDT Telemedicine Department of Urology in [place], [place] [address] [place] [phone] Kate Egan P.A.-C. Retention Urinary (Primary Dx); Dysfunction Pelvic Floor Male 08/31/2023 4:00 PM CDT Procedure visit Department of Sports Medicine in [place], [place] [address] [place] [phone] Armin Colvin M.D. Pain Hip Left; Pain Hip Right 08/24/2023 Orders Only Department of Urology in [address] [phone] Kate Egan P.A.-C. 08/23/2023 Clinical Communication Department of Sports Medicine in [address] [address] Ahsan Talbert M.D., Ph.D. from Last 3 Months Family History Medical [...] drink = 0.6 oz pur e alcohol) [facility] Utilities Answer Date Recorded In the past 12 months has e [employer], oil, or water [employer] threatened to shut off services in your [...] How often do you attend chur or sikhism services? More than 4 times per year 2022 Do you belong to any clubs o r organizations such as scientology groups, unions, fraternal or athletic groups, or [...] Answer Date Recorded PHQ-2 Score 0 07/07/2023 [facility] - Occupational [...] your living situation today? I have a [facility] place to live 05/22/2023 Education Answer Date Recorded What is the highest level of school you have completed or the highest degree you have received? Some college, no degree 05/24/2020 Sex and Gender Information Value Date Recorded Sex Assigned at Male 10/29/2020 12:38 PM CDT Legal Sex Male 1:45 PM FABRICATION WELDER Gender Identity Male 07/15/2019 8:59 AM CDT Sexual Orientation Straight 07/15/2019 8: 59 AM CDT Last Filed Vital Signs Vital Sign Reading Time Taken Comments Blood Pressure 126/84 05/23/2023 8:08 AM CDT Pulse 91 05/23/2023 8:08 AM CDT Temperature 37.3 ??C (99.1 ??F) 01/20/2022 10:[address] Respiratory Rate 30 02/11/2021 10:10 AM FABRICATION WELDER Oxygen Saturation 99% 02/11/2021 10:15 AM FABRICATION WELDER Inhaled Oxygen Concentration - - Weight 65.8 kg (145 lb) 07/08/2023 9:50 AM CDT Height 185.4 cm (6' 1) 07/08/2023 9:50 AM CDT Body Mass Index 19.13 07/08/2023 9:50 AM CDT Plan of Treatment Upcoming Encounters Date Type Department Care Team (Late st Contact Info) Description 11/29/2023 8:00 AM CDT Appointment Department of Orthopedic Surgery in [address] [phone] Ahsan Talbert M.D., Ph.D. [address] [place] [phone] 11/29/2023 10:00 AM CDT Procedure visit Department of Urology in [address] [address] Kate Egan PMackenzieA.-C. [address] [place] [phone] 01/06/2024 9:15 AM FABRICATION WELDER Office Visit Department of Orthopedic Surgery in [address] [phone] Jose Crawford M.D. [address] [place] [phone] 01/27/2024 4:30 PM FABRICATION WELDER Clinical Communication Virtual Review in [address] [address] 01/30/2024 3:30 PM FABRICATION WELDER Telemedicine Department of Urology in [address] [address] Kate Egan P.A.-CMackenzie [address] [place] [phone] Health Maintenance Due Date Last Done Comments Hepatitis C Screening 2000 DTaP,Tdap,and Td Vaccines (7 - Td or Tdap) 11/19/2032 11/19/2022, 09/22/2012, 11/11/2004, Additional history exists Pneumococcal vaccine (0-64 years) Aged Out 04/21/2001, 01/12/2001, 2000 No longer eligible based on patient's age to complete this topic Hepatitis B Vaccines Completed 10/20/2001, 01/12/2001, 2000 HPV Vaccines Completed 10/28/2020, 02/08, 10/19/2019 Depression Screening (Annual PHQ-2) Completed 07/07/2023 COVID-19 Vaccine Completed 11/02/2023, 11/2022, 02/18/2021, Additional history exists Influenza Vaccine Completed 11/02/2023, , 04/16/2022, Additional history exists Medical Devices Implanted Type Area Pharmacy Ancillary Device Identifier Shelf Expiration Date Model / Serial / Lot Hardware E.G. Pins/Screws/R ods Hardware e.g. pins/screws/ rods Chest Wall [address] [employer] Hip Mini 2.4x8.9 - [id number] Implanted:Qty : 1 on 02/13/2020 by Zoltan Haines M.D. at [facility] Hardware e.g. pins/screws/ rods Right: Hip Ar[employer]rex [id number] 11/06/2024 AR-2924PH S / / [id number] [address] [employer] Hip Mini 2.4x8.9 - [id number] Implanted:Qty : 2 on 02/13/2020 by Zoltan Haines M.D. at [facility] Hardware e.g. pins/screws/ rods Right: Hip Arthrex [id number] 10/07/2024 AR-2924PH S / / [id number] [address] [employer] Hip Mini 2.4x8.9 - [id number] Implanted:Qty : 1 on 02/13/2020 by Zoltan Haines M.D. at [facility] Hardware e.g. pins/screws/ rods Right: Hip Arthrex [id number] 07/07/2024 AR-2924PH S / / [id number] Kt Fix Intbrc Hnd Wrst - [id number] Implanted:Qty : 1 on 02/02/2021 by Joes Crawford M.D. at [facility] Hardware e.g. pins/screws/ rods Left: Wrist Arthrex [id number] 09/06/2025 AR-8978-C P / / [id number] Procedures Procedure Name Priority Date/Time Associated Diagnosis [...] 10/31/2023 9:21 AM CDT Pain Hip Right [place] ARTHCS ASP/INJ MJR JT W US Routine [...] prior labral repair versus recurrent tear. 2. ??Qbts-pt-oivppkcw chondromalacia about the right lateral hip. 3. [...] from prior labral repairversus recurrent tear. 2. Kkkr-ld-pachlcvr chondromalacia about the right lateral hip. 3. Intraosseous ganglion cyst/degenerative cystic changes about theacetabular roof. Candida Dominguez Delroy Baltazar P.A.-C. IMG MRI PROCEDURES Fi nal [...] for MRarthrogram. NR Candida Baltazar P.A.-C. IMG FLUOROSCOPY PROCE MICHELE Final Result * CT Hip Right [...] PROCEDURES Scotty steven Result - Final * [place] ARTHCS ASP/INJ MJR JT W US (08/31/2023 4:00 PM CDT) Narrative MMODAL - 08/31/2023 4:00 PM CDT Armin Colvin M.D. ? 09/21/2023 ??6:33 AM Hip site - Bilat hip joint: injection only Performed by: Armin Colvin M.D. Authorized by: Candida Lucero P.A.-C. ?? Care team members present 1. Armin Colvin M.D. 2. Monica Castellanos, M.S., L.A.T., A.T.C. PROCEDURE DETAILS Procedure Location [...] Anesthesia method: local infiltration Candida Baltazar P.A.-C. PROCEDURE/MINOR SURGI NICOLE ORDERABLES Final Result MMODAL NA from Last 3 Months Insurance [facility] Care Teams Private Advisor Relationship Specialty Start Date End Date Elsewhere, Pcp PCP - General Internal Medicine 05/22/18
--- OUTSIDE RECORDS SUMMARY | 2023-11-23 14:48 | XMS_ITS | Encounter Summary ---
Author Organization [facility] Address [address] [place] [address] Care Team Providers Care Bi Lead Name Role Phone Elsewhere, Pcp Primary Care Provider Unavailabl e Reason for Visit * Reason Onset Date Comments Wheelchair order needed urgently 11/14/2023 Encounter Details Date Type Department Care Team (Latest Contact Info) Description 11/14/2023 Clinical Communication Department of Sports Medicine in [place], [place] [address] [place] [address] Ahsan Talbert M.D., Ph.D. [address] [place] [address] Wheelchair order needed urgently Social History Tobacco Use Types Packs/Day Years Used Date Smoking Tobacco: Never Smokeless Tobacco: Never Alcohol Use Standard Drinks/Week Comments Yes 1 (1 standard drink = 0.6 oz pur e alcohol) [facility] Utilities Answer Date Recorded In the past 12 months has [facility] [employer], gas, oil, or water [employer] threatened to shut off services in your [...] How often do you attend chur or yarsanism services? More than 4 times per year 2022 Do you belong to any clubs o r organizations such as taoism groups, unions, fraternal or athletic groups, or [...] Answer Date Recorded PHQ-2 Score 0 07/07/2023 [facility] of Occupat ional Health - Occupational Stress [...] your living situation today? I have a [facility] place to live 05/22/2023 Education Answer Date Recorded What is the highest level of school you have completed or the highest degree you have received? Some college, no degree 05/24/2020 Sex and Gender Information Value Date Recorded Sex Assigned at Male 10/29/2020 12:38 PM CDT Legal Sex Male 1:45 PM BOBBIN INSPECTOR Gender Identity Male 07/15/2019 8:59 AM CDT Sexual Orientation Straight 07/15/2019 8: 59 AM CDT documented as of this encounter Plan of Treatment Upcoming Encounters Date Type Department Care Team (Late st Contact Info) Description 11/29/2023 8:00 AM CDT Appointment Department of Orthopedic Surgery in [place], [place] 200 [place] [phone] Ahsan Talbert M.D., Ph.D. 200 [place] [address] 11/29/2023 10:00 AM CDT Procedure visit Department of Urology in [place], [place] [address] [place] [phone] Kate Egan P.A.-C. [address] [place] [phone] 01/06/2024 9:15 AM BOBBIN INSPECTOR Office Visit Department of Orthopedic Surgery in [place], [place] [address] [place] [phone] Jose Crawford M.D. [address] [place] [phone] 01/27/2024 4:30 PM BOBBIN INSPECTOR Clinical Communication Virtual Review in [place], [place] 200 [place] [address] 01/30/2024 3:30 PM BOBBIN INSPECTOR Telemedicine Department of Urology in [place], [place] [address] [place] [phone] Kate Egan P.A.-CMackenzie [address] [place] [phone] documented as of this encounter Visit Diagnoses Not on filedocumented in this encounter Additional Health Concerns Assessment Noted Time PHQ-9 Depression Total Score: 5 07/07/19 24 9:17 PM CDT documented as of this encounter Care Teams Bi Lead Relationship Specialty Start Date End Date Elsewhere, Pcp PCP - General Internal Medicine 05/22/18 documented as of this encounter
--- OUTSIDE RECORDS SUMMARY | 2023-11-23 14:48 | XMS_ITS | Encounter Summary ---
Author Organization [facility] Address [address] [place] [address] Care Team Providers Care Snuff Box Finisher Name Role Phone Elsewhere, Pcp Primary Care Provider Unavailabl e Encounter Details Date Type Department Care Team (Late st Contact Info) Description 11/07/2023 Orders Only Department of Orthopedic Surgery in [place], [place] [address] [place] [phone] Candida Lucero P.A.-C. [address] [place] [phone] Pain Hip Left (Primary Dx) Social History Tobacco Use Types Packs/Day Years Used Date Smoking Tobacco: Never Smokeless Tobacco: Never Alcohol Use Standard Drinks/Week Comments Yes 1 (1 standard drink = 0.6 oz pur e alcohol) [facility] Utilities Answer Date Recorded In the past 12 months has [facility] electric, gas, oil, or water [employer] threatened to shut off services in your [...] often do you attend chur ch or confucianist services? More than 4 times per year 2022 Do you belong to any clubs o r organizations such as yarsanism groups, unions, fraternal or athletic groups, or [...] Answer Date Recorded PHQ-2 Score 0 07/07/2023 [facility] of Occupat ional Health - Occupational [...] your living situation today? I have a [facility] place to live 05/22/2023 Education Answer Date Recorded What is the highest level of school you have completed or the highest degree you have received? Some college, no degree 05/24/2020 Sex and Gender Information Value Date Recorded Sex Assigned at Male 10/29/2020 12:38 PM CDT Legal Sex Male 1:45 PM ASSEMBLY INSPECTOR HELPER Gender Identity Male 07/15/2019 8:59 AM CDT Sexual Orientation Straight 07/15/2019 8: 59 AM CDT documented as of this encounter Plan of Treatment Upcoming Encounters Date Type Department Care Team (Late st Contact Info) Description 11/29/2023 8:00 AM CDT Appointment Department of Orthopedic Surgery in [place], [place] [address] [place] [address] Ashan Talbert M.D., Ph.D. 200 [place] [phone] 11/29/2023 10:00 AM CDT Procedure visit Department of Urology in [place], [place] [address] [place] [address] Kate Egan P.A.-C. [address] [place] [phone] 01/06/2024 9:15 AM ASSEMBLY INSPECTOR HELPER Office Visit Department of Orthopedic Surgery in [place], [place] [address] [place] [phone] Jose Crawford M.D. [address] [place] [phone] 01/27/2024 4:30 PM ASSEMBLY INSPECTOR HELPER Clinical Communication Virtual Review in [place], [place] 200 [place] [address] 01/30/2024 3:30 PM ASSEMBLY INSPECTOR HELPER Telemedicine Department of Urology in [place], [place] [address] [place] [phone] Kate Egan P.A.-C. [address] [place] [phone] documented as of this encounter Visit Diagnoses Diagnosis Pain Hip Left- Primary documented in this encounter Additional Health Concerns Assessment Noted Time PHQ-9 Depression Total Score: 5 07/07/19 24 9:17 PM CDT documented as of this encounter Care Teams Snuff Box Finisher Relationship Specialty Start Date End Date Elsewhere, Pcp PCP - General Internal Medicine 05/22/18 documented as of this encounter
--- OUTSIDE RECORDS SUMMARY | 2023-11-23 14:48 | XMS_ITS | Encounter Summary ---
Author Organization [facility] Address [address] [place] [address] Care Team Providers Care Crankshaft Straightener Name Role Phone Elsewhere, Pcp Primary Care Provider Unavailabl e Reason for Referral * MRI/CAT/PET Scan (Routine) - Closed Specialty Diagnoses / Procedures Referred By Ye lund Referred To Contact Radiology Diagnoses Pain Hip Right Procedures MR Hip Arthrogram Right Candida Lucero P.A.-Kathya [address] [place] [phone] Phone: tel: fax: [facility] Referral ID Status Reason Start Date Expiration Date Visits Re quested Visits Authorized [id number] Closed 10/24/2023 10/23/2024 1 1 Reason for Visit * MRI/CAT/PET Scan (Routine) - Closed Specialty Diagnoses / Procedures Referred By Ye lund Referred To Contact Radiology Diagnoses Pain Hip Right Procedures MR Hip Arthrogram Right Candida Lucero P.A.-CMackenzie [address] [place] [phone] Phone: tel: fax: [facility] Referral ID Status Reason Start Date Expiration Date Visits Re quested Visits Authorized [id number] Closed 10/24/2023 10/23/2024 1 1 Encounter Details Date Type Department Care Team (Latest Contact Info) Description 10/31/2023 9:08 AM CDT - 10/31/2023 11:59 PM CDT Hospital Encounter Department of Radiology, [facility], in [place], [place] [address] [place] [address] Candida Lucero P.A.-C. [address] [place] [address] Pain Hip Right Discharge Disposition: Home or Self Care Social History Tobacco Use Types Packs/Day Years Used Date Smoking Tobacco: Never Smokeless Tobacco: Never Alcohol Use Standard Drinks/Week Comments Yes 1 (1 standard drink = 0.6 oz pur e alcohol) [facility] Utilities Answer Date Recorded In the [...] often do you attend chur ch or catholic services? More than 4 times per [...] PM CDT Legal Sex Male 1:45 PM DISC PAD KNOCKOUT WORKER Gender Identity Male 07/15/2019 8:59 AM CDT Sexual Orientation Straight 07/15/2019 8: 59 AM CDT documented as of this encounter Medications at Time of Discharge famotidine (PEPCID) 40 mg tablet Take 40 [...] CDT Appointment Department of Orthopedic Surgery in [place], [place] [address] [place] [phone] Ahsan Talbert M.D., Ph.D. [address] [place] [phone] 11/29/2023 10:00 AM CDT Procedure visit Department of Urology in [place], [place] [address] [place] [phone] Kate Egan P.A.-C. [address] [place] [phone] 01/06/2024 9:15 AM DISC PAD KNOCKOUT WORKER Office Visit Department of Orthopedic Surgery in [place], [place] [address] [place] [phone] Jose Crawford M.D. [address] [place] [phone] 01/27/2024 4:30 PM DISC PAD KNOCKOUT WORKER Clinical Communication Virtual Review in [place], [place] 200 [place] [phone] 01/30/2024 3:30 PM DISC PAD KNOCKOUT WORKER Telemedicine Department of Urology in [place], [place] [address] [place] [phone] Kate Egan P.A.-C. [address] [place] [phone] documented as of this encounter Procedures Procedure [...] prior labral repair versus recurrent tear. 2. ??Etcg-xn-trghtsja chondromalacia about the right lateral hip. 3. [...] from prior labral repairversus recurrent tear. 2. Mmgv-tz-hqzchdkz chondromalacia about the right lateral hip. 3. Intraosseous ganglion cyst/degenerative cystic changes about theacetabular roof. us Candida Baltazar P.A.-C. IMG MRI PROCEDURES Fi nal Result documented in this encounter Visit Diagnoses Diagnosis Pain Hip Right documented in this encounter Additional Health Concerns Assessment Noted Time PHQ-9 Depression Total Score: 5 07/07/19 24 9:17 PM CDT documented as of this encounter Care Teams Crankshaft Straightener Relationship Specialty Start Date End Date Elsewhere, Pcp PCP - General Internal Medicine 05/22/18 documented as of this encounter
--- OUTSIDE RECORDS SUMMARY | 2023-11-23 14:48 | XMS_ITS | Encounter Summary ---
Author Organization [facility] Address [address] [place] [address] Care Team Providers Care Climatologist Name Role Phone Elsewhere, Pcp Primary Care Provider Unavailabl e Reason for Referral * MRI/CAT/PET Scan (Routine) - Closed Specialty Diagnoses / Procedures Referred By Ye t Referred To Contact Radiology Diagnoses Pain Hip Right Procedures CT Hip Right without IV Contrast Candida Lucero P.A.-Kathya [address] [place] [phone] Phone: tel: fax: [facility] Referral ID Status Reason Start Date Expiration Date Visits Re quested Visits Authorized [id number] Closed 10/25/2023 10/24/2024 1 1 Encounter Details Date Type Department Care Team (Late st Contact Info) Description 10/25/2023 Orders Only Department of Orthopedic Surgery in [place], [place] [address] [place] [phone] Candida Lucero P.AMackenzie-CMackenzie [address] [place] [phone] Pain Hip Right (Primary Dx) Social History Tobacco Use Types Packs/Day Years Used Date Smoking Tobacco: Never Smokeless Tobacco: Never Alcohol Use Standard Drinks/Week Comments Yes 1 (1 standard drink = 0.6 oz pur e alcohol) [facility] Utilities Answer Date Recorded In the past 12 months has [employer], oil, or water [employer] threatened to shut off services in [...] How often do you attend chur or latter-day services? More than 4 times per year [...] Date Recorded PHQ-2 Score 0 07/07/2023 [facility] Occupational Stress Questionnaire Answer [...] your living situation today? I have a [facility] place to live 05/22/2023 Education Answer Date Recorded What is the highest level of school you have completed or the highest degree you have received? Some college, no degree 05/24/2020 Sex and Gender Information Value Date Recorded Sex Assigned at Male 10/29/2020 12:38 PM CDT Legal Sex Male 1:45 PM INSPECTOR FINAL ASSEMBLY MECHANICAL Gender Identity Male 07/15/2019 8:59 AM CDT Sexual Orientation Straight 07/15/2019 8: 59 AM CDT documented as of this encounter Plan of Treatment Upcoming Encounters Date Type Department Care Team (Late st Contact Info) Description 11/29/2023 8:00 AM CDT Appointment Department of Orthopedic Surgery in [place], [place] [address] [place] [phone] Ahsan Talbert M.D., Ph.D. [address] [place] [phone] 11/29/2023 10:00 AM CDT Procedure visit Department of Urology in [place], [place] [address] [place] [phone] Kate Egan, P.A.-C. [address] [place] [phone] 01/06/2024 9:15 AM INSPECTOR FINAL ASSEMBLY MECHANICAL Office Visit Department of Orthopedic Surgery in [place], [place] [address] [place] [phone] Jose Crawford M.D. [address] [place] [phone] 01/27/2024 4:30 PM INSPECTOR FINAL ASSEMBLY MECHANICAL Clinical Communication Virtual Review in [place], [place] 200 [place] [phone] 01/30/2024 3:30 PM INSPECTOR FINAL ASSEMBLY MECHANICAL Telemedicine Department of Urology in [place], [place] [address] [place] [phone] Kate Egan P.A.-C. [address] [place] [phone] documented as of this encounter Results * [...] psoas muscle. Candida Baltazar P.A.-C. IMG CT PROCEDURES Scotty steven Result - Final documented in this encounter Visit Diagnoses Diagnosis Pain Hip Right- Primary Pain Hip Right documented in this encounter Additional Health Concerns Assessment Noted Time PHQ-9 Depression Total Score: 5 07/07/19 24 9:17 PM CDT documented as of this encounter Care Teams Climatologist Relationship Specialty Start Date End Date Elsewhere, Pcp PCP - General Internal Medicine 05/22/18 documented as of this encounter
--- OUTSIDE RECORDS SUMMARY | 2023-11-23 14:48 | XMS_ITS | Encounter Summary ---
Author Organization [facility] Address [address] [place] [address] Care Team Providers Care Buoy Tender Name Role Phone Elsewhere, Pcp Primary Care Provider Unavailabl e Reason for Visit * Physical Therapy (Routine) - Closed Specialty Diagnoses / Procedures Referred By Ye lund Referred To Contact Diagnoses Pain Wrist Left Procedures PT or OT eval and treat (first available) Mike Salomon Jr., Raymon.A.-CMackenzie [address] [place] [phone] Phone: tel: fax: [facility] Referral ID Status Reason Start Date Expiration Date Visits Re quested Visits Authorized [id number] Closed 10/13/2023 10/12/2024 1 1 Encounter Details Date Type Department Care Team (Latest Contact Info) Description 11/07/2023 1:00 PM CDT Comprehensive Visit Department of Physical Medicine and Rehabilitation in [place], [place] [address] [place] [phone] Mike Salomon Jr., P.A.-C. [address] [place] [phone] Irish White P.T., D.P.TMackenzie [address] [place] [phone] Pain Wrist Left (Primary Dx); Pain Wrist Right Social History Tobacco Use Types Packs/Day Years Used Date Smoking Tobacco: Never Smokeless Tobacco: Never Alcohol Use Standard Drinks/Week Comments Yes 1 (1 standard drink = 0.6 oz pur e alcohol) [facility] Utilities Answer Date Recorded In [...] How often do you attend chur or anglican services? More than 4 times per year [...] Date Recorded PHQ-2 Score 0 07/07/2023 [facility] - Occupational Stress Questionnaire Answer Date Recorded [...] your living situation today? I have a [facility] place to live 05/22/2023 Education Answer Date Recorded What is the highest level of school you have completed or the highest degree you have received? Some college, no degree 05/24/2020 Sex and Gender Information Value Date Recorded Sex Assigned at Male 10/29/2020 12:38 PM CDT Legal Sex Male 1:45 PM MANAGER HEAVY EQUIPMENT Gender Identity Male 07/15/2019 8:59 AM CDT [...] right wrist and was interested in pursuing jail casting; he does not want surgical intervention [...] Wrist Left 2. Pain Wrist Right Payor: [facility] / Plan: [facility] [employer] HMO / Product Type: Medicaid HMO / [...] assistance. 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 Irish White P.T., Pascual.P.T. Cosigned by Mike Salomon Jr., P.A.-CMackenzie at 11/07/2023 4:30 PM CDT documented in this encounter Plan of Treatment Upcoming Encounters Date Type Department Care Team (Late st Contact Info) Description 11/29/2023 8:00 AM CDT Appointment Department of Orthopedic Surgery in [place], [place] [address] [place] [phone] Ahsan Talbert M.D., Ph.D. [address] [place] [phone] 11/29/2023 10:00 AM CDT Procedure visit Department of Urology in [place], [place] [address] [place] [phone] Kate Egan P.A.-CMackenzie [address] [place] [phone] 01/06/2024 9:15 AM MANAGER HEAVY EQUIPMENT Office Visit Department of Orthopedic Surgery in [place], [place] [address] [place] [phone] Jose Albarran M.D. [address] [place] [phone] 01/27/2024 4:30 PM MANAGER HEAVY EQUIPMENT Clinical Communication Virtual Review in [place], [place] 200 [place] [phone] 01/30/2024 3:30 PM MANAGER HEAVY EQUIPMENT Telemedicine Department of Urology in [address] [phone] Kate Egan P.A.-C. [address] [place] [phone] documented as of this encounter Visit Diagnoses Diagnosis Pain Wrist Left- Primary Pain Wrist Right documented in this encounter Additional Health Concerns Assessment Noted Time PHQ-9 Depression Total Score: 5 07/07/19 24 9:17 PM CDT documented as of this encounter Care Teams Buoy Tender Relationship Specialty Start Date End Date Elsewhere, Pcp PCP - General Internal Medicine 05/22/18 documented as of this encounter
--- OUTSIDE RECORDS SUMMARY | 2023-11-23 14:48 | XMS_ITS | Encounter Summary ---
Author Organization [facility] Address [address] [place] [address] Care Team Providers Care Rooming House Operator Name Role Phone Elsewhere, Pcp Primary Care Provider Unavailabl e Encounter Details Date Type Department Care Team (Late st Contact Info) Description 11/14/2023 Orders Only Department of Urology in [place], [place] [address] [place] [phone] Kate Egan P.A.-C. [address] [place] [phone] Social History Tobacco Use Types Packs/Day Years Used Date Smoking Tobacco: Never Smokeless Tobacco: Never Alcohol Use Standard Drinks/Week Comments Yes 1 (1 standard drink = 0.6 oz pur e alcohol) [facility] Utilities Answer Date Recorded In the past 12 months has e electric, gas, oil, or water [employer] threatened to shut off services in [...] PHQ-2 Score 0 07/07/2023 [facility] Questionnaire Answer Date Recorded [...] your living situation today? I have a [facility] place to live 05/22/2023 Education Answer Date Recorded What is the highest level of school you have completed or the highest degree you have received? Some college, no degree 05/24/2020 Sex and Gender Information Value Date Recorded Sex Assigned at Male 10/29/2020 12:38 PM CDT Legal Sex Male 1:45 PM SLIMER Gender Identity Male 07/15/2019 8:59 AM CDT Sexual Orientation Straight 07/15/2019 8: 59 AM CDT documented as of this encounter Plan of Treatment Upcoming Encounters Date Type Department Care Team (Late st Contact Info) Description 11/29/2023 8:00 AM CDT Appointment Department of Orthopedic Surgery in [place], [place] [address] [place] [phone] Ahsan Talbert M.D., Ph.D. 200 [place] [phone] 11/29/2023 10:00 AM CDT Procedure visit Department of Urology in [place], [place] [address] [place] [phone] Kate Egan P.A.-C. [address] [place] [phone] 01/06/2024 9:15 AM SLIMER Office Visit Department of Orthopedic Surgery in [place], [place] [address] [place] [phone] Jose Crawford M.D. [address] [place] [phone] 01/27/2024 4:30 PM SLIMER Clinical Communication Virtual Review in [place], [place] 200 [place] [phone] 01/30/2024 3:30 PM SLIMER Telemedicine Department of Urology in [place], [place] [address] [place] [phone] Kate Egan P.A.-Kathya [address] [place] [phone] documented as of this encounter Visit Diagnoses Not on filedocumented in this encounter Additional Health Concerns Assessment Noted Time PHQ-9 Depression Total Score: 5 07/07/19 24 9:17 PM CDT documented as of this encounter Care Teams Rooming House Operator Relationship Specialty Start Date End Date Elsewhere, Pcp PCP - General Internal Medicine 05/22/18 documented as of this encounter
--- OUTSIDE RECORDS SUMMARY | 2023-11-23 14:48 | XMS_ITS | Encounter Summary ---
Author Organization [facility] Address [address] [place] [address] Care Team Providers Care Solar Fabrication Technician Name Role Phone Elsewhere, Pcp Primary Care Provider Unavailabl e Reason for Visit * Reason Onset Date Comments Order Needed Today 11/07/2023 Encounter Details Date Type Department Care Team (Latest Contact Info) Description 11/07/2023 Clinical Communication Department of Sports Medicine in [place], [place] [address] [place] [phone] Ahsan Talbert M.D., Ph.D. [address] [place] [phone] Order Needed Today Social History Tobacco Use Types Packs/Day Years Used Date Smoking Tobacco: Never Smokeless Tobacco: Never Alcohol Use Standard Drinks/Week Comments Yes 1 (1 standard drink = 0.6 oz pur e alcohol) [facility] Utilities Answer Date Recorded In the past 12 months has [facility] [employer], gas, oil, or water [employer] threatened to shut off services in your [...] How often do you attend chur or jewish services? More than 4 times per year 2022 Do you belong to any clubs o r organizations such as mandaen groups, unions, fraternal or athletic groups, or [...] Answer Date Recorded PHQ-2 Score 0 07/07/2023 [facility] - Occupational [...] your living situation today? I have a [facility] place to live 05/22/2023 Education Answer Date Recorded What is the highest level of school you have completed or the highest degree you have received? Some college, no degree 05/24/2020 Sex and Gender Information Value Date Recorded Sex Assigned at Male 10/29/2020 12:38 PM CDT Legal Sex Male 1:45 PM ENGINEERING ADMINISTRATOR Gender Identity Male 07/15/2019 8:59 AM CDT Sexual Orientation Straight 07/15/2019 8: 59 AM CDT documented as of this encounter Plan of Treatment Upcoming Encounters Date Type Department Care Team (Late st Contact Info) Description 11/29/2023 8:00 AM CDT Appointment Department of Orthopedic Surgery in [place], [place] 200 [place] [address] Ahsan Talbert M.D., Ph.D. 200 [place] [phone] 11/29/2023 10:00 AM CDT Procedure visit Department of Urology in [place], [place] [address] [place] [phone] Kate Egan P.A.-C. [address] [place] [phone] 01/06/2024 9:15 AM ENGINEERING ADMINISTRATOR Office Visit Department of Orthopedic Surgery in [place], [place] [address] [place] [phone] Jose Crawford M.D. [address] [place] [phone] 01/27/2024 4:30 PM ENGINEERING ADMINISTRATOR Clinical Communication Virtual Review in [place], [place] 200 [place] [phone] 01/30/2024 3:30 PM ENGINEERING ADMINISTRATOR Telemedicine Department of Urology in [place], [place] [address] [place] [phone] Kate Egan P.A.-CMackenzie [address] [place] [phone] documented as of this encounter Visit Diagnoses Not on filedocumented in this encounter Additional Health Concerns Assessment Noted Time PHQ-9 Depression Total Score: 5 07/07/19 24 9:17 PM CDT documented as of this encounter Care Teams Solar Fabrication Technician Relationship Specialty Start Date End Date Elsewhere, Pcp PCP - General Internal Medicine 05/22/18 documented as of this encounter
--- OUTSIDE RECORDS SUMMARY | 2023-11-23 14:48 | XMS_ITS | Encounter Summary ---
Author Organization [facility] Address [address] [place] [address] Care Team Providers Care Cafe Aide Name Role Phone Elsewhere, Pcp Primary Care Provider Unavailabl e Reason for Referral * Outpatient (Routine) - Closed Specialty Diagnoses / Procedures Referred By Contac t Referred To Contact Diagnoses Pain Hip Right Procedures [place] Hip Arthrogram Injection Right Candida Lucero P.A.-C. [address] [place] [phone] Phone: tel: fax: [facility] Referral ID Status Reason Start Date Expiration Date Visits Re quested Visits Authorized [id number] Closed 10/24/2023 10/23/2024 1 1 Reason for Visit * Outpatient (Routine) - Closed Specialty Diagnoses / Procedures Referred By Contac t Referred To Contact Diagnoses Pain Hip Right Procedures [place] Hip Arthrogram Injection Right Candida Lucero P.A.-Kathya [address] [place] [phone] Phone: tel: fax: [facility] Referral ID Status Reason Start Date Expiration Date Visits Re quested Visits Authorized [id number] Closed 10/24/2023 10/23/2024 1 1 Encounter Details Date Type Department Care Team (Latest Contact Info) Description 10/31/2023 9:08 AM CDT - 10/31/2023 11:59 PM CDT Hospital Encounter Department of Radiology, [facility], in [place], [place] [address] [place] [phone] Candida Lucero P.A.-C. [address] [place] [phone] Pain Hip Right Discharge Disposition: Home or Self Care Social History Tobacco Use Types Packs/Day Years Used Date Smoking Tobacco: Never Smokeless Tobacco: Never Alcohol Use Standard Drinks/Week Comments Yes 1 (1 standard drink = 0.6 oz pur e alcohol) [facility] Utilities Answer Date Recorded In the [...] often do you attend chur ch or mandaeism services? More than 4 times per year [...] Answer Date Recorded PHQ-2 Score 0 07/07/2023 [facility] - [...] PM CDT Legal Sex Male 1:45 PM RECORD CHANGER TESTER Gender Identity Male 07/15/2019 8:59 AM CDT [...] CDT Appointment Department of Orthopedic Surgery in [place], [place] 200 [place] [phone] Ahsan Talbert M.D., Ph.D. [address] [place] [phone] 11/29/2023 10:00 AM CDT Procedure visit Department of Urology in [place], [place] [address] [place] [phone] Kate Egan P.A.-C. [address] [place] [phone] 01/06/2024 9:15 AM RECORD CHANGER TESTER Office Visit Department of Orthopedic Surgery in [place], [place] [address] [place] [phone] Jose Crawford M.D. [address] [place] [phone] 01/27/2024 4:30 PM RECORD CHANGER TESTER Clinical Communication Virtual Review in [place], [place] 200 [place] [phone] 01/30/2024 3:30 PM RECORD CHANGER TESTER Telemedicine Department of Urology in [place], [place] [address] [place] [phone] Kate Egan P.A.-C. [address] [place] [phone] documented as of this encounter Procedures Procedure [...] NR us Candida Baltazar P.A.-C. IMG FLUOROSCOPY PROCE DURES Final Result documented in this encounter Visit Diagnoses [...] documented as of this encounter Care Teams Cafe Aide Relationship Specialty Start Date End Date Elsewhere, Pcp PCP - General Internal Medicine 05/22/18 documented as of this encounter
--- OUTSIDE RECORDS SUMMARY | 2023-11-23 14:48 | XMS_ITS | Encounter Summary ---
Author Organization [facility] Address [address] [place] [address] Care Team Providers Care Rotary Shear Cutter Name Role Phone Elsewhere, Pcp Primary Care Provider Unavailabl e Encounter Details Date Type Department Care Team (Late st Contact Info) Description 10/25/2023 Clinical Communication Department of Sports Medicine in [place], [place] [address] [place] [phone] Ahsan Talbert M.D., Ph.D. [address] [place] [phone] Social History Tobacco Use Types Packs/Day Years Used Date Smoking Tobacco: Never Smokeless Tobacco: Never Alcohol Use Standard Drinks/Week Comments Yes 1 (1 standard drink = 0.6 oz pur e alcohol) [facility] Utilities Answer Date Recorded In the past 12 months has e [employer], gas, oil, or water [employer] threatened to shut off services in your [...] any clubs o r organizations such as buddhist groups, unions, fraternal or athletic groups, or [...] 0 07/07/2023 [facility] Occupational Stress Questionnaire Answer Date [...] your living situation today? I have a [facility] place to live 05/22/2023 Education Answer Date Recorded What is the highest level of school you have completed or the highest degree you have received? Some college, no degree 05/24/2020 Sex and Gender Information Value Date Recorded Sex Assigned at Male 10/29/2020 12:38 PM CDT Legal Sex Male 1:45 PM EMERGENCY CREW SUPERVISOR Gender Identity Male 07/15/2019 8:59 AM CDT Sexual Orientation Straight 07/15/2019 8: 59 AM CDT documented as of this encounter Plan of Treatment Upcoming Encounters Date Type Department Care Team (Late st Contact Info) Description 11/29/2023 8:00 AM CDT Appointment Department of Orthopedic Surgery in [place], [place] [address] [place] [address] Ahsan Talbert M.D., Ph.D. 200 [place] [address] 11/29/2023 10:00 AM CDT Procedure visit Department of Urology in [place], [place] [address] [place] [phone] Kate Egan P.A.-C. [address] [place] [phone] 01/06/2024 9:15 AM EMERGENCY CREW SUPERVISOR Office Visit Department of Orthopedic Surgery in [place], [place] [address] [place] [phone] Jose Crawford M.D. [address] [place] [phone] 01/27/2024 4:30 PM EMERGENCY CREW SUPERVISOR Clinical Communication Virtual Review in [place], [place] 200 [place] [phone] 01/30/2024 3:30 PM EMERGENCY CREW SUPERVISOR Telemedicine Department of Urology in [place], [place] [address] [place] [phone] Kate Egan P.A.-C. [address] [place] [phone] documented as of this encounter Visit Diagnoses Not on filedocumented in this encounter Additional Health Concerns Assessment Noted Time PHQ-9 Depression Total Score: 5 07/07/19 24 9:17 PM CDT documented as of this encounter Care Teams Rotary Shear Cutter Relationship Specialty Start Date End Date Elsewhere, Pcp PCP - General Internal Medicine 05/22/18 documented as of this encounter
--- OUTSIDE RECORDS SUMMARY | 2023-11-23 14:48 | XMS_ITS | Encounter Summary ---
Author Organization [facility] Address [address] [place] [address] Care Team Providers Care Cat Driver Name Role Phone Elsewhere, Pcp Primary Care Provider Unavailabl e Encounter Details Date Type Department Care Team (Late st Contact Info) Description 11/15/2023 Orders Only Department of Urology in [place], [place] [address] [place] [phone] Kate Egan P.A.-C. [address] [place] [phone] Social History Tobacco Use Types Packs/Day Years Used Date Smoking Tobacco: Never Smokeless Tobacco: Never Alcohol Use Standard Drinks/Week Comments Yes 1 (1 standard drink = 0.6 oz pur e alcohol) [facility] Utilities Answer Date Recorded In the past 12 months has e electric, gas, oil, or water [employer] threatened to shut off services in your [...] often do you attend chur ch or restorationism services? More than 4 times [...] Answer Date Recorded PHQ-2 Score 0 07/07/2023 [facility] Questionnaire Answer Date [...] PM CDT Legal Sex Male 1:45 PM VICE PRESIDENT SUPPLY CHAIN Gender Identity Male 07/15/2019 8:59 AM CDT Sexual Orientation Straight 07/15/2019 8: 59 AM CDT documented as of this encounter Plan of Treatment Upcoming Encounters Date Type Department Care Team (Late st Contact Info) Description 11/29/2023 8:00 AM CDT Appointment Department of Orthopedic Surgery in [place], [place] [address] [place] [phone] Ahsan Talbert M.D., Ph.D. 200 [place] [phone] 11/29/2023 10:00 AM CDT Procedure visit Department of Urology in [place], [place] [address] [place] [phone] Kate Egan P.A.-C. [address] [place] [phone] 01/06/2024 9:15 AM VICE PRESIDENT SUPPLY CHAIN Office Visit Department of Orthopedic Surgery in [place], [place] [address] [place] [phone] Jose Crawford M.D. [address] [place] [phone] 01/27/2024 4:30 PM VICE PRESIDENT SUPPLY CHAIN Clinical Communication Virtual Review in [place], [place] 200 [place] [phone] 01/30/2024 3:30 PM VICE PRESIDENT SUPPLY CHAIN Telemedicine Department of Urology in [place], [place] [address] [place] [phone] Kate Egan P.A.-Kathya [address] [place] [phone] documented as of this encounter Visit Diagnoses Not on filedocumented in this encounter Additional Health Concerns Assessment Noted Time PHQ-9 Depression Total Score: 5 07/07/19 24 9:17 PM CDT documented as of this encounter Care Teams Cat Driver Relationship Specialty Start Date End Date Elsewhere, Pcp PCP - General Internal Medicine 05/22/18 documented as of this encounter
--- OUTSIDE RECORDS SUMMARY | 2023-11-23 14:48 | XMS_ITS | Encounter Summary ---
Author Organization [facility] Address [address] [place] [address] Care Team Providers Care Editor Farm Journal Name Role Phone Elsewhere, Pcp Primary Care Provider Unavailabl e Encounter Details Date Type Department Care Team (Late st Contact Info) Description 11/14/2023 Orders Only Department of Orthopedic Surgery in [place], [place] [address] [place] [phone] Candida Lucero P.A.-C. [address] [place] [phone] Pain Hip Left (Primary Dx) Social History Tobacco Use Types Packs/Day Years Used Date Smoking Tobacco: Never Smokeless Tobacco: Never Alcohol Use Standard Drinks/Week Comments Yes 1 (1 standard drink = 0.6 oz pur e alcohol) [facility] Utilities Answer Date Recorded In the past 12 months has [facility] electric, gas, oil, or water [employer] threatened to shut off services in your [...] often do you attend chur ch or temple services? More than 4 times per year [...] Answer Date Recorded PHQ-2 Score 0 07/07/2023 [facility] of Occupat ional Health - Occupational Stress [...] your living situation today? I have a [facility] to live 05/22/2023 Education Answer Date Recorded What is the highest level of school you have completed or the highest degree you have received? Some college, no degree 05/24/2020 Sex and Gender Information Value Date Recorded Sex Assigned at Male 10/29/2020 12:38 PM CDT Legal Sex Male 1:45 PM HOSE MENDER Gender Identity Male 07/15/2019 8:59 AM CDT Sexual Orientation Straight 07/15/2019 8: 59 AM CDT documented as of this encounter Plan of Treatment Upcoming Encounters Date Type Department Care Team (Late st Contact Info) Description 11/29/2023 8:00 AM CDT Appointment Department of Orthopedic Surgery in [place], [place] [address] [place] [address] Ahsan Talbert M.D., Ph.D. 200 [place] [phone] 11/29/2023 10:00 AM CDT Procedure visit Department of Urology in [place], [place] [address] [place] [phone] Kate Egan P.A.-C. [address] [place] [phone] 01/06/2024 9:15 AM HOSE MENDER Office Visit Department of Orthopedic Surgery in [place], [place] [address] [place] [phone] Jose Crawford M.D. [address] [place] [phone] 01/27/2024 4:30 PM HOSE MENDER Clinical Communication Virtual Review in [place], [place] 200 [place] [phone] 01/30/2024 3:30 PM HOSE MENDER Telemedicine Department of Urology in [place], [place] [address] [place] [phone] Kate Egan P.A.-C. [address] [place] [phone] documented as of this encounter Visit Diagnoses Diagnosis Pain Hip Left- Primary documented in this encounter Additional Health Concerns Assessment Noted Time PHQ-9 Depression Total Score: 5 07/07/19 24 9:17 PM CDT documented as of this encounter Care Teams Editor Farm Journal Relationship Specialty Start Date End Date Elsewhere, Pcp PCP - General Internal Medicine 05/22/18 documented as of this encounter
--- OUTSIDE RECORDS SUMMARY | 2023-11-23 14:48 | XMS_ITS | Encounter Summary ---
Author Organization [facility] Address [address] [place] [phone] Care Team Providers Care Oil Tanker Captain Name Role Phone Elsewhere, Pcp Primary Care Provider Unavailabl e Reason for Referral * Outpatient (Routine) - Authorized Specialty Diagnoses / Procedures Referred By Contac t Referred To Contact Diagnoses Hypermobility Joint Procedures ORS Cast Room Visit Ahsan Talbert M.D., Ph.D. [address] [place] [phone] Phone: tel: fax: [facility] Referral ID Status Reason Start Date Expiration Date V isits Requested Visits Authorized [id number] Authorized 11/07/2023 11/06/2024 1 1 * Outpatient (Routine) - Closed Specialty Diagnoses / Procedures Referred By Contac t Referred To Contact Diagnoses Pain Hip Left Procedures ORS Cast Room Visit Kushal Mendieta M.D. [address] [place] [phone] Phone: tel: fax: [facility] Referral ID Status Reason Start Date Expiration Date Visits Re quested Visits Authorized [id number] Closed 08/22/2023 08/21/2024 1 1 Reason for Visit * Outpatient (Routine) - Closed Specialty Diagnoses / Procedures Referred By Contac t Referred To Contact Diagnoses Pain Hip Left Procedures ORS Cast Room Visit Kushal Mendieta M.D. [address] [place] [phone] Phone: tel: fax: [facility] Referral ID Status Reason Start Date Expiration Date Visits Re quested Visits Authorized [id number] Closed 08/22/2023 08/21/2024 1 1 Encounter Details Date Type Department Care Team (Latest Contact Info) Description 11/07/2023 7:54 AM CDT - 11/07/2023 8:34 AM CDT Hospital Encounter Department of Orthopedic Surgery in [place], [place] [address] [place] [phone] Kushal Mendieta M.D. [address] [place] [phone] Ahsan Talbert M.D., Ph.D. [address] [place] [phone] Mobility Limited (Primary Dx); Pain Hip Left; Hypermobility Joint Discharge Disposition: Home or Self Care Social History Tobacco Use Types Packs/Day Years Used Date Smoking Tobacco: Never Smokeless Tobacco: Never Alcohol Use Standard Drinks/Week Comments Yes 1 (1 standard drink = 0.6 oz pur e alcohol) [facility] Utilities Answer Date Recorded In the past 12 months has e [employer], gas, oil, or water [employer] threatened to shut off services in your [...] often do you attend chur ch or pentecostalism services? More than 4 times per year [...] PHQ-2 Score 0 07/07/2023 [facility] - Occupational Stress Questionnaire Answer Date [...] your living situation today? I have a [facility] place to live 05/22/2023 Education Answer Date Recorded What is the highest level of school you have completed or the highest degree you have received? Some college, no degree 05/24/2020 Sex and Gender Information Value Date Recorded Sex Assigned at Male 10/29/2020 12:38 PM CDT Legal Sex Male 1:45 PM HARVEST WORKER Gender Identity Male 07/15/2019 8:59 AM CDT Sexual Orientation Straight 07/15/2019 8: 59 AM CDT documented as of this encounter Medications at Time of Discharge aspirin 81 mg chewable tablet Chew 1 tablet (81 mg total) 2 (two) times a day for 21 days. 72 tablet 11/07/2023 11:13 AM CDT 11/07/2023 12/11/2023 famotidine (PEPCID) 40 mg tablet [...] He has had parallel evaluation up at [place] and has an ongoing discussion regarding the potential utility of proceeding with a periacetabular osteotomy up in the [facility] at some point for his right [...] CDT Appointment Department of Orthopedic Surgery in [address] [phone] Ahsan Talbert M.D., Ph.D. [address] [place] [phone] 11/29/2023 10:00 AM CDT Procedure visit Department of Urology in [place], [place] [address] [place] [phone] Kate Egan P.A.-C. [address] [place] [phone] 01/06/2024 9:15 AM HARVEST WORKER Office Visit Department of Orthopedic Surgery in [place], [place] [address] [place] [phone] Jose Crawford M.D. [address] [place] [phone] 01/27/2024 4:30 PM HARVEST WORKER Clinical Communication Virtual Review in [place], [place] [address] [place] [phone] 01/30/2024 3:30 PM HARVEST WORKER Telemedicine Department of Urology in [place], [place] [address] [place] [phone] Kate Egan P.A.-C. [address] [place] [phone] Scheduled Orders Name Type Priority Associated Diagnoses [...] documented as of this encounter Care Teams Oil Tanker Captain Relationship Specialty Start Date End Date Elsewhere, Pcp PCP - General Internal Medicine 05/22/18 documented as of this encounter
--- OUTSIDE RECORDS SUMMARY | 2023-11-23 14:48 | XMS_ITS | Encounter Summary ---
Author Organization [facility] Address [address] [place] [address] Care Team Providers Care Vp Data Name Role Phone Elsewhere, Pcp Primary Care Provider Unavailabl e Reason for Referral * MRI/CAT/PET Scan (Routine) - Closed Specialty Diagnoses / Procedures Referred By Ye lund Referred To Contact Radiology Diagnoses Pain Hip Right Procedures CT Hip Right without IV Contrast Candida Lucero P.A.-Kathya [address] [place] [phone] Phone: tel: fax: [facility] Referral ID Status Reason Start Date Expiration Date Visits Re quested Visits Authorized [id number] Closed 10/25/2023 10/24/2024 1 1 Reason for Visit * MRI/CAT/PET Scan (Routine) - Closed Specialty Diagnoses / Procedures Referred By Ye lund Referred To Contact Radiology Diagnoses Pain Hip Right Procedures CT Hip Right without IV Contrast Candida Lucero P.A.-CMackenzie [address] [place] [phone] Phone: tel: fax: [facility] Referral ID Status Reason Start Date Expiration Date Visits Re quested Visits Authorized [id number] Closed 10/25/2023 10/24/2024 1 1 Encounter Details Date Type Department Care Team (Latest Contact Info) Description 10/31/2023 8:45 AM CDT - 10/31/2023 9:07 AM CDT Hospital Encounter Department of Radiology, [facility], in [place], [place] [address] [place] [phone] Candida Lucero P.A.-C. [address] [place] [phone] Pain Hip Right Discharge Disposition: Home or Self Care Social History Tobacco Use Types Packs/Day Years Used Date Smoking Tobacco: Never Smokeless Tobacco: Never Alcohol Use Standard Drinks/Week Comments Yes 1 (1 standard drink = 0.6 oz pur e alcohol) [facility] Utilities Answer Date Recorded In the past [...] often do you attend chur ch or restoration services? More than 4 times per year [...] Date Recorded PHQ-2 Score 0 07/07/2023 [facility] of Occupat ional Health - Occupational [...] PM CDT Legal Sex Male 1:45 PM WEB DESIGN SPECIALIST Gender Identity Male 07/15/2019 8:59 AM CDT [...] CDT Appointment Department of Orthopedic Surgery in [place], [place] [address] [place] [phone] Ahsan Talbert M.D., Ph.D. [address] [place] [phone] 11/29/2023 10:00 AM CDT Procedure visit Department of Urology in [place], [place] [address] [place] [phone] Kate Egan P.A.-C. [address] [place] [phone] 01/06/2024 9:15 AM WEB DESIGN SPECIALIST Office Visit Department of Orthopedic Surgery in [place], [place] [address] [place] [phone] Jose Crawford M.D. [address] [place] [phone] 01/27/2024 4:30 PM WEB DESIGN SPECIALIST Clinical Communication Virtual Review in [place], [place] 200 [place] [phone] 01/30/2024 3:30 PM WEB DESIGN SPECIALIST Telemedicine Department of Urology in [place], [place] [address] [place] [phone] Kate Egan P.A.-C. [address] [place] [address] [phone] documented as of this encounter Procedures Procedure [...] documented as of this encounter Care Teams Vp Data Relationship Specialty Start Date End Date Elsewhere, Pcp PCP - General Internal Medicine 05/22/18 documented as of this encounter
--- OUTSIDE RECORDS SUMMARY | 2023-11-23 14:48 | XMS_ITS | Encounter Summary ---
Author Organization [facility] Address [address] [place] [address] Care Team Providers Care Dry Finisher Name Role Phone Elsewhere, Pcp Primary Care Provider Unavailabl e Reason for Referral * Physical Therapy (Routine) - Closed Specialty Diagnoses / Procedures Referred By Ye lund Referred To Contact Diagnoses Pain Hip Right Procedures PT Evaluate and treat Candida Lucero P.A.-C. [address] [place] [phone] Phone: tel: fax: [facility] Referral ID Status Reason Start Date Expiration Date Visits Re quested Visits Authorized [id number] Closed 10/25/2023 10/24/2024 1 1 Encounter Details Date Type Department Care Team (Late st Contact Info) Description 10/25/2023 Orders Only Department of Orthopedic Surgery in [place], [place] [address] [place] [phone] Candida Lucero P.AMackenzie-Kathya [address] [place] [phone] Pain Hip Right (Primary Dx) Social History Tobacco Use Types Packs/Day Years Used Date Smoking Tobacco: Never Smokeless Tobacco: Never Alcohol Use Standard Drinks/Week Comments Yes 1 (1 standard drink = 0.6 oz pur e alcohol) [facility] Utilities Answer Date Recorded In the past 12 months has [employer] electric, gas, oil, or water company threatened [...] week 2022 How often do you attend [facility] or taoist services? More than 4 times [...] Answer Date Recorded PHQ-2 Score 0 07/07/2023 [facility] of Occupat ional Health - Occupational [...] PM CDT Legal Sex Male 1:45 PM FINANCIAL PLANNING ADVISER Gender Identity Male 07/15/2019 8:59 AM CDT Sexual Orientation Straight 07/15/2019 8: 59 AM CDT documented as of this encounter Plan of Treatment Upcoming Encounters Date Type Department Care Team (Late st Contact Info) Description 11/29/2023 8:00 AM CDT Appointment Department of Orthopedic Surgery in [place], [place] [address] [place] [phone] Ahsan Talbert M.D., Ph.D. [address] [place] [phone] 11/29/2023 10:00 AM CDT Procedure visit Department of Urology in [place], [place] [address] [place] [phone] Kate Egan P.A.-CMackenzie [address] [place] [phone] 01/06/2024 9:15 AM FINANCIAL PLANNING ADVISER Office Visit Department of Orthopedic Surgery in [place], [place] [address] [place] [phone] Jose Crawford M.D. [address] [place] [phone] 01/27/2024 4:30 PM FINANCIAL PLANNING ADVISER Clinical Communication Virtual Review in [place], [place] 200 [place] [phone] 01/30/2024 3:30 PM FINANCIAL PLANNING ADVISER Telemedicine Department of Urology in [address] [phone] Kate Egan P.A.-CMackenzie [address] [place] [phone] documented as of this encounter Visit Diagnoses Diagnosis Pain Hip Right- Primary documented in this encounter Additional Health Concerns Assessment Noted Time PHQ-9 Depression Total Score: 5 07/07/19 24 9:17 PM CDT documented as of this encounter Care Teams Dry Finisher Relationship Specialty Start Date End Date Elsewhere, Pcp PCP - General Internal Medicine 05/22/18 documented as of this encounter
--- OUTSIDE RECORDS SUMMARY | 2023-11-23 14:48 | XMS_ITS | Encounter Summary ---
Author Organization [facility] Address [address] [place] [address] Care Team Providers Care Drill Operator Automatic Name Role Phone Elsewhere, Pcp Primary Care Provider Unavailabl e Reason for Visit * Physical Therapy (Routine) - Closed Specialty Diagnoses / Procedures Referred By Ye lund Referred To Contact Diagnoses Pain Hip Right Procedures PT Evaluate and treat Candida Lucero P.A.-C. [address] [place] [phone] Phone: tel: fax: [facility] Referral ID Status Reason Start Date Expiration Date Visits Re quested Visits Authorized [id number] Closed 10/25/2023 10/24/2024 1 1 Encounter Details Date Type Department Care Team (Latest Contact Info) Description 11/07/2023 10:00 AM CDT Comprehensive Visit Department of Physical Medicine and Rehabilitation in [place], [place] [address] [place] [phone] Candida Lucero P.A.-CMackenize [address] [place] [phone] Marilyn Vergara PSyed., D.P.T., OCS [address] [place] [phone] Pain Hip Left [M25.552] (Primary Dx); Pain Hip Right Social History Tobacco Use Types Packs/Day Years Used Date Smoking Tobacco: Never Smokeless Tobacco: Never Alcohol Use Standard Drinks/Week Comments Yes 1 (1 standard drink = 0.6 oz pur e alcohol) [facility] Utilities Answer Date Recorded In the past 12 months has th e [employer], [employer], oil, or water [employer] threatened to shut off services in your [...] How often do you attend chur or religion services? More than 4 times per year 2022 Do you belong to any clubs o r organizations such as mu-ism groups, unions, fraternal or athletic groups, or [...] Answer Date Recorded PHQ-2 Score 0 07/07/2023 [facility] of Occupat ional Health - Occupational Stress [...] PM CDT Legal Sex Male 1:45 PM EPITAXIAL REACTOR OPERATOR Gender Identity Male 07/15/2019 8:59 AM CDT Sexual Orientation Straight 07/15/2019 8: 59 AM CDT documented as of this encounter Consult Notes * Marilyn Vergara P.T., LeighannP.T., [facility] - 11/07/2023 10:00 AM CDT Physical Therapy [...] Right Reason for Referral: Gait Training Payor: [employer] [place] CARE / Plan: [employer] HMO / Product Type: Medicaid HMO / [facility] Visit Count: 1 PT Next Certification Date: [...] [facility] OR OTHER SURGICAL HISTORY arabella bar PECTUS EXCAVATUM - ARABELLA PROCEDURE 10/26/2017 REMOVAL PECTUS BAR N/A 02/11/2021 Procedure: REMOVAL PECTUS BAR.; Surgeon: Eyad Burns M.D., Ph.D.; Location: [facility] ROMB OR REPAIR ARTHROSCOPY LABRAL HIP Right 02/13/2020 Procedure: Hip Scope Labral Repair, Fractional Psoas Lengthening; Surgeon: Zoltan Hianes M.D.; Location: [facility] OR REPAIR CARPAL LIGAMENT WRIST Left 02/02/2021 Procedure: wrist arthroscopy, midcarpal stabilization.; Surgeon: Jose Crawford M.D.; Location:[facility] OR Paramjit Spike Boyce is a 23 y.o. male who presents to outpatient physical therapy for evaluation. He was just casted with a hip spica cast for his left hip. He reports the right hip is more painful and he has a tentative plan to consider a GUILLERMO up in the [facility] for this. He reports he usually [...] of casting. Prior Function/Occupational Profile: Level of [place]: independent (limited to standing <10 minutes due to pain). 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 Type of home: [...] use of belt to assist as leg structural shop helper - verbal education for car transfers - floor transfers for safe recovery if he were to fall - wheelchair propulsion with right leg and bilateral arm use. Recommendation to look into adult tall walker due to his height. Recommendation to find wheelchair with elevating leg rest for left side Recommendation for nurse wound care/grabber to assist with grabbing things from the floor. HEP (for right leg): Access Code: [email or web address] URL: [email or web address] Date: 11/07/2023 Prepared by: Marilyn Exercises - [...] following patient education materials were provided today: [employer]: Paper copy provided to patient Assessment Clinical [...] 46 min Marilyn Vergara P.T., D.P.T., OCS Cosigned by Candida Lucero P.A.-C. at 11/07/2023 11:08 AM CDT documented in this encounter Plan of Treatment Upcoming Encounters Date Type Department Care Team (Late st Contact Info) Description 11/29/2023 8:00 AM CDT Appointment Department of Orthopedic Surgery in [address] [phone] Ahsan Talbert M.D., Ph.D. [address] [place] [phone] 11/29/2023 10:00 AM CDT Procedure visit Department of Urology in [address] [phone] Kate Egan P.A.-C. [address] [place] [phone] 01/06/2024 9:15 AM EPITAXIAL REACTOR OPERATOR Office Visit Department of Orthopedic Surgery in [address] [phone] Jose Crawford M.D. [address] [place] [address] [phone] 01/27/2024 4:30 PM EPITAXIAL REACTOR OPERATOR Clinical Communication Virtual Review in [place], [place] [address] [place] [phone] 01/30/2024 3:30 PM EPITAXIAL REACTOR OPERATOR Telemedicine Department of Urology in [place], [place] [address] [place] [phone] Kate Egan P.A.-C. [address] [place] [phone] documented as of this encounter Visit Diagnoses Diagnosis Pain Hip Left [M25.552]- Primary Pain Hip Right documented in this encounter Additional Health Concerns Assessment Noted Time PHQ-9 Depression Total Score: 5 07/07/19 24 9:17 PM CDT documented as of this encounter Care Teams Drill Operator Automatic Relationship Specialty Start Date End Date Elsewhere, Pcp PCP - General Internal Medicine 05/22/18 documented as of this encounter
--- OUTSIDE RECORDS SUMMARY | 2023-11-23 14:49 | XMS_ITS | Encounter Summary ---
Author Organization [facility] Address [address] [place] [address] Care Team Providers Care Coverage Specialist Name Role Phone Elsewhere, Pcp Primary Care Provider Unavailabl e Reason for Visit * Outpatient (Routine) - Closed Specialty Diagnoses / Procedures Referred By Ye lund Referred To Contact Urology Diagnoses Frequency Urinary Tam Clark M.D. [address] [place] [phone] Phone: tel: fax: [facility] Referral ID Status Reason Start Date Expiration Date Visits Re quested Visits Authorized [id number] Closed 07/12/2023 01/10/2025 1 1 Encounter Details Date Type Department Care Team (Latest Contact Info) Description 08/18/2023 8:00 AM CDT Comprehensive Visit Department of Urology in [place], [place] [address] [place] [phone] Kate Egan P.A.-C. [address] [place] [phone] Frequency Urinary (Primary Dx); Hesitancy Urinary Social History Tobacco Use Types Packs/Day Years Used Date Smoking Tobacco: Never Smokeless Tobacco: Never Alcohol Use Standard Drinks/Week Comments Yes 1 (1 standard drink = 0.6 oz pur e alcohol) [facility] Utilities Answer Date Recorded In [...] week 2022 How often do you attend [facility] or sikhism services? More than 4 times per year 2022 Do you belong to any clubs o r organizations such as voodoo groups, unions, fraternal or athletic groups, or [...] your living situation today? I have a [facility] place to live 05/22/2023 Education Answer Date Recorded What is the highest level of school you have completed or the highest degree you have received? Some college, no degree 05/24/2020 Sex and Gender Information Value Date Recorded Sex Assigned at Male 10/29/2020 12:38 PM CDT Legal Sex Male 1:45 PM STORM CHASER Gender Identity Male 07/15/2019 8:59 AM CDT [...] CDT Appointment Department of Orthopedic Surgery in [address] [phone] Ahsan Talbert M.D., Ph.D. [address] [place] [phone] 11/29/2023 10:00 AM CDT Procedure visit Department of Urology in [address] [phone] Kate Egan P.A.-C. [address] [place] [phone] 01/06/2024 9:15 AM STORM CHASER Office Visit Department of Orthopedic Surgery in [address] [phone] Jose Crawford M.D. [address] [place] [phone] 01/27/2024 4:30 PM STORM CHASER Clinical Communication Virtual Review in [address] [phone] 01/30/2024 3:30 PM STORM CHASER Telemedicine Department of Urology in [address] [phone] Kate Egan P.A.-C. [address] [place] [phone] documented as of this encounter Visit Diagnoses Diagnosis Frequency Urinary- Primary Hesitancy Urinary documented in this encounter Additional Health Concerns Assessment Noted Time PHQ-9 Depression Total Score: 5 07/07/19 24 9:17 PM CDT documented as of this encounter Care Teams Coverage Specialist Relationship Specialty Start Date End Date Elsewhere, Pcp PCP - General Internal Medicine 05/22/18 documented as of this encounter
--- OUTSIDE RECORDS SUMMARY | 2023-11-23 14:49 | XMS_ITS | Encounter Summary ---
Author Organization [facility] Address [address] [place] [address] Care Team Providers Care Archeology Professor Name Role Phone Elsewhere, Pcp Primary Care Provider Unavailabl e Encounter Details Date Type Department Care Team (Late st Contact Info) Description 09/16/2023 Clinical Communication Department of Sports Medicine in [place], [place] [address] [place] [address] Ahsan Talbert M.D., Ph.D. [address] [place] [phone] Social History Tobacco Use Types Packs/Day Years Used Date Smoking Tobacco: Never Smokeless Tobacco: Never Alcohol Use Standard Drinks/Week Comments Yes 1 (1 standard drink = 0.6 oz pur e alcohol) [facility] Utilities Answer Date Recorded In the past 12 months has e [employer], gas, oil, or water [employer] threatened to shut off services in your [...] often do you attend chur ch or orthodoxy services? More than 4 times per year 2022 Do you belong to any clubs o r organizations such as oriental orthodox groups, unions, fraternal or athletic groups, [...] Answer Date Recorded PHQ-2 Score 0 07/07/2023 [facility] - Occupational Stress Questionnaire Answer [...] your living situation today? I have a [facility] place to live 05/22/2023 Education Answer Date Recorded What is the highest level of school you have completed or the highest degree you have received? Some college, no degree 05/24/2020 Sex and Gender Information Value Date Recorded Sex Assigned at Male 10/29/2020 12:38 PM CDT Legal Sex Male 1:45 PM SCENE PAINTER Gender Identity Male 07/15/2019 8:59 AM CDT Sexual Orientation Straight 07/15/2019 8: 59 AM CDT documented as of this encounter Plan of Treatment Upcoming Encounters Date Type Department Care Team (Late st Contact Info) Description 11/29/2023 8:00 AM CDT Appointment Department of Orthopedic Surgery in [place], [place] [address] [place] [address] Ahsan Talbert M.D., Ph.D. 200 [place] [phone] 11/29/2023 10:00 AM CDT Procedure visit Department of Urology in [place], [place] [address] [place] [address] Kate Egan P.A.-C. [address] [place] [phone] 01/06/2024 9:15 AM SCENE PAINTER Office Visit Department of Orthopedic Surgery in [place], [place] [address] [place] [phone] Jose Crawford M.D. [address] [place] [phone] 01/27/2024 4:30 PM SCENE PAINTER Clinical Communication Virtual Review in [place], [place] 200 [place] [phone] 01/30/2024 3:30 PM SCENE PAINTER Telemedicine Department of Urology in [place], [place] [address] [place] [phone] Kate Egan P.A.-C. [address] [place] [phone] documented as of this encounter Visit Diagnoses Not on filedocumented in this encounter Additional Health Concerns Assessment Noted Time PHQ-9 Depression Total Score: 5 07/07/19 24 9:17 PM CDT documented as of this encounter Care Teams Archeology Professor Relationship Specialty Start Date End Date Elsewhere, Pcp PCP - General Internal Medicine 05/22/18 documented as of this encounter
--- OUTSIDE RECORDS SUMMARY | 2023-11-23 14:49 | XMS_ITS | Encounter Summary ---
Author Organization [facility] Address [address] [place] [address] Care Team Providers Care Maintenance Groundskeeper Name Role Phone Elsewhere, Pcp Primary Care Provider Unavailabl e Reason for Referral * Physical Therapy (Routine) - Closed Specialty Diagnoses / Procedures Referred By Ye lund Referred To Contact Diagnoses Pain Wrist Left Procedures PT or OT eval and treat (first available) Mike Salomon Jr., P.A.-C. [address] [place] [phone] Phone: tel: fax: [facility] Referral ID Status Reason Start Date Expiration Date Visits Re quested Visits Authorized [id number] Closed 10/13/2023 10/12/2024 1 1 Encounter Details Date Type Department Care Team (Late st Contact Info) Description 10/13/2023 Orders Only Department of Orthopedic Surgery in [place], [place] [address] [place] [phone] Mike Salomon Jr., P.A.-C. [address] [place] [phone] Pain Wrist Left (Primary Dx) Social History Tobacco Use Types Packs/Day Years Used Date Smoking Tobacco: Never Smokeless Tobacco: Never Alcohol Use Standard Drinks/Week Comments Yes 1 (1 standard drink = 0.6 oz pur e alcohol) [facility] Utilities Answer Date Recorded In the past 12 months has e [employer] gas, oil, or water [employer] threatened to shut off services in your [...] How often do you attend chur or moravian services? More than 4 times per year 2022 Do you belong to any clubs o r organizations such as zoroastrian groups, unions, fraternal or athletic groups, or [...] Answer Date Recorded PHQ-2 Score 0 07/07/2023 [facility] - Occupational Stress Questionnaire Answer Date [...] your living situation today? I have a [facility] place to live 05/22/2023 Education Answer Date Recorded What is the highest level of school you have completed or the highest degree you have received? Some college, no degree 05/24/2020 Sex and Gender Information Value Date Recorded Sex Assigned at Male 10/29/2020 12:38 PM CDT Legal Sex Male 1:45 PM BRUSH OPERATOR Gender Identity Male 07/15/2019 8:59 AM CDT Sexual Orientation Straight 07/15/2019 8: 59 AM CDT documented as of this encounter Plan of Treatment Upcoming Encounters Date Type Department Care Team (Late st Contact Info) Description 11/29/2023 8:00 AM CDT Appointment Department of Orthopedic Surgery in [place], [place] [address] [place] [phone] Ahsan Talbert M.D., Ph.D. [address] [place] [phone] 11/29/2023 10:00 AM CDT Procedure visit Department of Urology in [place], [place] [address] [place] [phone] Kate Egan, P.A.-C. [address] [place] [phone] 01/06/2024 9:15 AM BRUSH OPERATOR Office Visit Department of Orthopedic Surgery in [place], [place] [address] [place] [phone] Jose Crawford M.D. [address] [place] [phone] 01/27/2024 4:30 PM BRUSH OPERATOR Clinical Communication Virtual Review in [place], [place] 200 [place] [address] 01/30/2024 3:30 PM BRUSH OPERATOR Telemedicine Department of Urology in [place], [place] [address] [place] [phone] Kate Egan P.A.-CMackenzie [address] [place] [phone] documented as of this encounter Visit Diagnoses Diagnosis Pain Wrist Left- Primary documented in this encounter Additional Health Concerns Assessment Noted Time PHQ-9 Depression Total Score: 5 07/07/19 24 9:17 PM CDT documented as of this encounter Care Teams Maintenance Groundskeeper Relationship Specialty Start Date End Date Elsewhere, Pcp PCP - General Internal Medicine 05/22/18 documented as of this encounter
--- OUTSIDE RECORDS SUMMARY | 2023-11-23 14:49 | XMS_ITS | Encounter Summary ---
Author Organization [facility] Address [address] [place] [address] Care Team Providers Care Exhibits Manager Name Role Phone Elsewhere, Pcp Primary Care Provider Unavailabl e Encounter Details Date Type Department Care Team (Late st Contact Info) Description 08/23/2023 Clinical Communication Department of Sports Medicine in [place], [place] [address] [place] [address] Ahsan Talbert M.D., Ph.D. [address] [place] [phone] Social History Tobacco Use Types Packs/Day Years Used Date Smoking Tobacco: Never Smokeless Tobacco: Never Alcohol Use Standard Drinks/Week Comments Yes 1 (1 standard drink = 0.6 oz pur e alcohol) [facility] Utilities Answer Date Recorded In the past 12 months has e [employer], gas, oil, or water [employer] threatened to shut off services in [...] often do you attend chur ch or baptist services? More than 4 times per year [...] 0 07/07/2023 [facility] - Occupational Stress Questionnaire Answer Date [...] your living situation today? I have a [facility] place to live 05/22/2023 Education Answer Date Recorded What is the highest level of school you have completed or the highest degree you have received? Some college, no degree 05/24/2020 Sex and Gender Information Value Date Recorded Sex Assigned at Male 10/29/2020 12:38 PM CDT Legal Sex Male 1:45 PM YARN MERCERIZER OPERATOR Gender Identity Male 07/15/2019 8:59 AM CDT Sexual Orientation Straight 07/15/2019 8: 59 AM CDT documented as of this encounter Plan of Treatment Upcoming Encounters Date Type Department Care Team (Late st Contact Info) Description 11/29/2023 8:00 AM CDT Appointment Department of Orthopedic Surgery in [place], [place] [address] [place] [phone] Ahsan Talbert M.D., Ph.D. 200 [place] [phone] 11/29/2023 10:00 AM CDT Procedure visit Department of Urology in [place], [place] [address] [place] [phone] Kate Egan P.A.-C. [address] [place] [phone] 01/06/2024 9:15 AM YARN MERCERIZER OPERATOR Office Visit Department of Orthopedic Surgery in [place], [place] [address] [place] [phone] Jose Crawford M.D. [address] [place] [phone] 01/27/2024 4:30 PM YARN MERCERIZER OPERATOR Clinical Communication Virtual Review in [place], [place] 200 [place] [phone] 01/30/2024 3:30 PM YARN MERCERIZER OPERATOR Telemedicine Department of Urology in [place], [place] [address] [place] [phone] Kate Egan P.A.-C. [address] [place] [phone] documented as of this encounter Visit Diagnoses Not on filedocumented in this encounter Additional Health Concerns Assessment Noted Time PHQ-9 Depression Total Score: 5 07/07/19 24 9:17 PM CDT documented as of this encounter Care Teams Exhibits Manager Relationship Specialty Start Date End Date Elsewhere, Pcp PCP - General Internal Medicine 05/22/18 documented as of this encounter
--- OUTSIDE RECORDS SUMMARY | 2023-11-23 14:49 | XMS_ITS | Encounter Summary ---
Author Organization [facility] Address [address] [place] [address] Care Team Providers Care Windshield Wiper Repairer Name Role Phone Elsewhere, Pcp Primary Care Provider Unavailabl e Reason for Visit * Reason Comments Other clean intermittent c atheterization and uroflow /bladder scan * Outpatient (Routine) - Closed Specialty Diagnoses / Procedures Referred By eY t Referred To Contact Diagnoses Frequency Urinary Procedures URO Uroflow Tam Clark M.D. [address] [place] [phone] Phone: tel: fax: [facility] Referral ID Status Reason Start Date Expiration Date Visits Re quested Visits Authorized [id number] Closed 07/12/2023 07/11/2024 1 1 Encounter Details Date Type Department Care Team (Latest Contact Info) Description 08/18/2023 1:45 PM CDT Procedure visit Department of Urology in [place], [place] [address] [place] [address] [phone] Tam Clark M.D. [address] [place] [phone] Alissa Mckinley, L.P.N. Retention Urinary (Primary Dx); Frequency Urinary Social History Tobacco Use Types Packs/Day Years Used Date Smoking Tobacco: Never Smokeless Tobacco: Never Alcohol Use Standard Drinks/Week Comments Yes 1 (1 standard drink = 0.6 oz pur e alcohol) [facility] Utilities Answer Date Recorded In the [...] week 2022 How often do you attend [facility] or samaritan services? More than 4 times per year [...] Answer Date Recorded PHQ-2 Score 0 07/07/2023 [facility] - Occupational Stress [...] living situation today? I have a [facility] place to live 05/22/2023 Education Answer Date Recorded What is the highest level of school you have completed or the highest degree you have received? Some college, no degree 05/24/2020 Sex and Gender Information Value Date Recorded Sex Assigned at Male 10/29/2020 12:38 PM CDT Legal Sex Male 1:45 PM TOBACCO WRAPPING MACHINE TENDER Gender Identity Male 07/15/2019 8:59 AM CDT [...] to patient. It was also faxed to [employer]. documented in this encounter Procedure Notes * [...] CDT Appointment Department of Orthopedic Surgery in [address] [phone] Ahsan Talbert M.D., Ph.D. [address] [place] [phone] 11/29/2023 10:00 AM CDT Procedure visit Department of Urology in [address] [phone] Kate Egan, P.A.-C. [address] [place] [phone] 01/06/2024 9:15 AM TOBACCO WRAPPING MACHINE TENDER Office Visit Department of Orthopedic Surgery in [address] [phone] Jose Crawford M.D. [address] [place] [phone] 01/27/2024 4:30 PM TOBACCO WRAPPING MACHINE TENDER Clinical Communication Virtual Review in [address] [phone] 01/30/2024 3:30 PM TOBACCO WRAPPING MACHINE TENDER Telemedicine Department of Urology in [address] [phone] Kate Egan, P.A.-CMackenzie [address] [place] [phone] documented as of this encounter Procedures Procedure Name Priority Date/Time Associated Diagnosis Comments URO UROFLOW Routine 08/18/2023 1:45 PM CDT Frequency Urinary documented in this encounter Results * URO Uroflow (08/18/2023 1:45 PM CDT) Narrative Tato Pderoza M.D. - 08/18/2023 1:45 PM CDT Tato [...] is recommended. Tam Clark M.D. UROLOGY ORDERABLES Final Result documented in this encounter Visit Diagnoses Diagnosis Retention Urinary- Primary Frequency Urinary documented in this encounter Additional Health Concerns Assessment Noted Time PHQ-9 Depression Total Score: 5 07/07/19 24 9:17 PM CDT documented as of this encounter Care Teams Windshield Wiper Repairer Relationship Specialty Start Date End Date Elsewhere, Pcp PCP - General Internal Medicine 05/22/18 documented as of this encounter
--- OUTSIDE RECORDS SUMMARY | 2023-11-23 14:49 | XMS_ITS | Encounter Summary ---
Author Organization [facility] Address [address] [place] [address] Care Team Providers Care Analyst Business Analysis Name Role Phone Elsewhere, Pcp Primary Care Provider Unavailabl e Reason for Visit * Outpatient (Routine) - Closed Specialty Diagnoses / Procedures Referred By Ye lund Referred To Contact Urology Kate Egan P.A.-CMackenzie [address] [place] [phone] Phone: tel: fax: Kate Egan, P.A.-CMackenzie [address] [place] [phone] Phone: tel: fax: Referral ID Status Reason Start Date Expiration Date Visits Re quested Visits Authorized [id number] Closed 08/24/2023 02/22/2025 1 1 Encounter Details Date Type Department Care Team (Late st Contact Info) Description 09/01/2023 1:00 PM CDT Telemedicine Department of Urology in [place], [place] [address] [place] [phone] Kate Egan, P.A.-C. [address] [place] [phone] Retention Urinary (Primary Dx); Dysfunction Pelvic Floor Male Social History Tobacco Use Types Packs/Day Years Used Date Smoking Tobacco: Never Smokeless Tobacco: Never Alcohol Use Standard Drinks/Week Comments Yes 1 (1 standard drink = 0.6 oz pur e alcohol) [facility] Utilities Answer Date Recorded In the past 12 months has th e electric, gas, oil, or water [employer] threatened to shut off services in your [...] often do you attend chur ch or congregation services? More than 4 times per year 2022 Do you belong to any clubs o r organizations such as yarsani groups, unions, fraternal or athletic groups, or [...] Answer Date Recorded PHQ-2 Score 0 07/07/2023 [facility] [place] of Occupat ional [facility] - Occupational Stress Questionnaire Answer Date Recorded [...] your living situation today? I have a [facility] place to live 05/22/2023 Education Answer Date Recorded What is the highest level of school you have completed or the highest degree you have received? Some college, no degree 05/24/2020 Sex and Gender Information Value Date Recorded Sex Assigned at Male 10/29/2020 12:38 PM CDT Legal Sex Male 1:45 PM SUPERVISOR WEBBING Gender Identity Male 07/15/2019 8:59 AM CDT [...] with Capsulorrhaphy; Surgeon: Zoltan Haines M.D.; Location: [place] [id number] OR ARTHROSCOPY OSTEOPLASTY FEMORAL NECK HIP Right 02/13/2020 Procedure: Osteoplasty Femoral Neck and Acetabular Rim.; Surgeon: Zoltan Haines M.D.; Location: [facility] OR OTHER SURGICAL HISTORY ryan bar PECTUS EXCAVATUM - RYAN PROCEDURE 10/26/2017 REMOVAL PECTUS BAR N/A 02/11/2021 Procedure: REMOVAL PECTUS BAR.; Surgeon: Eyad Burns M.D., Ph.D.; Location: [facility] OR REPAIR ARTHROSCOPY LABRAL HIP Right [...] Total time: 20 min Signed by: Kate Egan P.A.-C. 09/01/2023 1:25 PM CDT documented in this encounter Plan of Treatment Upcoming Encounters Date Type Department Care Team (Late st Contact Info) Description 11/29/2023 8:00 AM CDT Appointment Department of Orthopedic Surgery in [address] [phone] Ahsan Talbert M.D., Ph.D. [address] [place] [phone] 11/29/2023 10:00 AM CDT Procedure visit Department of Urology in [address] [phone] Kate Egan P.A.-C. [address] [place] [phone] 01/06/2024 9:15 AM SUPERVISOR WEBBING Office Visit Department of Orthopedic Surgery in [address] [phone] Joes Crawford M.D. [address] [place] [phone] 01/27/2024 4:30 PM SUPERVISOR WEBBING Clinical Communication Virtual Review in [address] [phone] 01/30/2024 3:30 PM SUPERVISOR WEBBING Telemedicine Department of Urology in [address] [phone] Kate Egan P.A.-C. [address] [place] [phone] documented as of this encounter Visit Diagnoses Diagnosis Retention Urinary- Primary Dysfunction Pelvic Floor Male documented in this encounter Additional Health Concerns Assessment Noted Time PHQ-9 Depression Total Score: 5 07/07/19 24 9:17 PM CDT documented as of this encounter Care Teams Analyst Business Analysis Relationship Specialty Start Date End Date Elsewhere, Pcp PCP - General Internal Medicine 05/22/18 documented as of this encounter
--- OUTSIDE RECORDS SUMMARY | 2023-11-23 14:49 | XMS_ITS | Encounter Summary ---
Author Organization [facility] Address [address] [place] [address] Care Team Providers Care Manager Clinical Name Role Phone Elsewhere, Pcp Primary Care Provider Unavailabl e Encounter Details Date Type Department Care Team (Late st Contact Info) Description 10/24/2023 Orders Only Department of Orthopedic Surgery in [place], [place] [address] [place] [address] Ahsan Talbert M.D., Ph.D. [address] [place] [phone] Social History Tobacco Use Types Packs/Day Years Used Date Smoking Tobacco: Never Smokeless Tobacco: Never Alcohol Use Standard Drinks/Week Comments Yes 1 (1 standard drink = 0.6 oz pur e alcohol) [facility] Utilities Answer Date Recorded In the past 12 months has e electric, gas, oil, or water [employer] threatened to shut off services in [...] Answer Date Recorded PHQ-2 Score 0 07/07/2023 [facility] Questionnaire Answer Date [...] PM CDT Legal Sex Male 1:45 PM BINDING FOLDER MACHINE Gender Identity Male 07/15/2019 8:59 AM CDT Sexual Orientation Straight 07/15/2019 8: 59 AM CDT documented as of this encounter Plan of Treatment Upcoming Encounters Date Type Department Care Team (Late st Contact Info) Description 11/29/2023 8:00 AM CDT Appointment Department of Orthopedic Surgery in [place], [place] [address] [place] [address] Ahsan Talbert M.D., Ph.D. 200 [place] [phone] 11/29/2023 10:00 AM CDT Procedure visit Department of Urology in [place], [place] [address] [place] [phone] Kate Egan P.A.-C. [address] [place] [phone] 01/06/2024 9:15 AM BINDING FOLDER MACHINE Office Visit Department of Orthopedic Surgery in [place], [place] [address] [place] [phone] Jose Crawford M.D. [address] [place] [phone] 01/27/2024 4:30 PM BINDING FOLDER MACHINE Clinical Communication Virtual Review in [place], [place] 200 [place] [phone] 01/30/2024 3:30 PM BINDING FOLDER MACHINE Telemedicine Department of Urology in [place], [place] [address] [place] [phone] Kate Egan P.A.-C. [address] [place] [phone] documented as of this encounter Visit Diagnoses Not on filedocumented in this encounter Additional Health Concerns Assessment Noted Time PHQ-9 Depression Total Score: 5 07/07/19 24 9:17 PM CDT documented as of this encounter Care Teams Manager Clinical Relationship Specialty Start Date End Date Elsewhere, Pcp PCP - General Internal Medicine 05/22/18 documented as of this encounter
--- OUTSIDE RECORDS SUMMARY | 2023-11-23 14:49 | XMS_ITS | Encounter Summary ---
Author Organization [facility] Address [address] [place] [address] Care Team Providers Care Computer Meteorologist Name Role Phone Elsewhere, Pcp Primary Care Provider Unavailabl e Reason for Visit * Outpatient (Routine) - Closed Specialty Diagnoses / Procedures Referred By Ye lund Referred To Contact Social Work Diagnoses Pain Hip Bilateral Candida Lucero P.A.-C. [address] [place] [phone] Phone: tel: fax: [facility] Referral ID Status Reason Start Date Expiration Date Visits Re quested Visits Authorized [id number] Closed 09/15/2023 03/16/2025 1 1 Encounter Details Date Type Department Care Team (Late Contact Info) Description 09/19/2023 11:00 AM CDT Virtual Visit Department of Social Work in [place], [place] [address] [place] [phone] Candida Lucero P.A.-CMackenzie [address] [place] [address] [phone] Aisha Foster M.SSarah, L.I.C.S.W. [address] [place] [address] [phone] Pain Hip Bilateral Social History Tobacco Use Types Packs/Day Years Used Date Smoking Tobacco: Never Smokeless Tobacco: Never Alcohol Use Standard Drinks/Week Comments Yes 1 (1 standard drink = 0.6 oz pur e alcohol) [facility] Utilities Answer Date Recorded In the past 12 months has e [employer], gas, oil, or water [employer] threatened to shut off services in your [...] How often do you attend chur or faith services? More than 4 times per year 2022 Do you belong to any clubs o r organizations such as moravian groups, unions, fraternal or athletic groups, or [...] Answer Date Recorded PHQ-2 Score 0 07/07/2023 [facility] - Occupational Stress Questionnaire Answer Date [...] living situation today? I have a [facility] place to live 05/22/2023 Education Answer Date Recorded What is the highest level of school you have completed or the highest degree you have received? Some college, no degree 05/24/2020 Sex and Gender Information Value Date Recorded Sex Assigned at Male 10/29/2020 12:38 PM CDT Legal Sex Male 1:45 PM INVESTOR RELATIONS ANALYST Gender Identity Male 07/15/2019 8:59 AM CDT Sexual Orientation Straight 07/15/2019 8: 59 AM CDT documented as of this encounter Progress Notes * Aisha Foster M.S.W., SarmadS.W. - 09/19/2023 11:00 AM CDT Please see progress note for 09/19/23. documented in this encounter Plan of Treatment Upcoming Encounters Date Type Department Care Team (Late st Contact Info) Description 11/29/2023 8:00 AM CDT Appointment Department of Orthopedic Surgery in [address] [phone] Ahsan Talbert M.D., Ph.D. [address] [place] [phone] 11/29/2023 10:00 AM CDT Procedure visit Department of Urology in [address] [phone] Kate Egan P.A.-CMackenzie [address] [place] [phone] 01/06/2024 9:15 AM INVESTOR RELATIONS ANALYST Office Visit Department of Orthopedic Surgery in [address] [phone] Jose Crawford M.D. [address] [place] [phone] 01/27/2024 4:30 PM INVESTOR RELATIONS ANALYST Clinical Communication Virtual Review in [place], [place] 200 [place] [phone] 01/30/2024 3:30 PM INVESTOR RELATIONS ANALYST Telemedicine Department of Urology in [place], [place] [address] [place] [phone] Kate Egan P.A.-C. [address] [place] [phone] documented as of this encounter Visit Diagnoses Diagnosis Pain Hip Bilateral documented in this encounter Additional Health Concerns Assessment Noted Time PHQ-9 Depression Total Score: 5 07/07/19 24 9:17 PM CDT documented as of this encounter Care Teams Computer Meteorologist Relationship Specialty Start Date End Date Elsewhere, Pcp PCP - General Internal Medicine 05/22/18 documented as of this encounter
--- OUTSIDE RECORDS SUMMARY | 2023-11-23 14:49 | XMS_ITS | Encounter Summary ---
Author Organization [facility] Address [address] [place] [address] Care Team Providers Care Account Underwriter Name Role Phone Elsewhere, Pcp Primary Care Provider Unavailabl e Reason for Visit * Reason Onset Date Comments Pre-visit Intake 09/13/2023 Encounter Details Date Type Department Care Team (Latest Contact Info) Description 09/13/2023 3:45 PM CDT Clinical Communication Virtual Review in [place], [place] 200 [place] [address] Pre-visit Intake Social History Tobacco Use Types Packs/Day Years Used Date Smoking Tobacco: Never Smokeless Tobacco: Never Alcohol Use Standard Drinks/Week Comments Yes 1 (1 standard drink = 0.6 oz pur e alcohol) [facility] Utilities Answer Date Recorded In the past 12 months has e [employer], gas, oil, or water [employer] threatened to shut off services in your [...] How often do you attend chur or yazidism services? More than 4 times per year 2022 Do you belong to any clubs o r organizations such as yazidism groups, unions, fraternal or athletic groups, or [...] Answer Date Recorded PHQ-2 Score 0 07/07/2023 [facility] of Occupat ional Health - Occupational Stress [...] your living situation today? I have a [facility] place to live 05/22/2023 Education Answer Date Recorded What is the highest level of school you have completed or the highest degree you have received? Some college, no degree 05/24/2020 Sex and Gender Information Value Date Recorded Sex Assigned at Male 10/29/2020 12:38 PM CDT Legal Sex Male 1:45 PM MANAGER OF LEARNING Gender Identity Male 07/15/2019 8:59 AM CDT Sexual Orientation Straight 07/15/2019 8: 59 AM CDT documented as of this encounter Plan of Treatment Upcoming Encounters Date Type Department Care Team (Late st Contact Info) Description 11/29/2023 8:00 AM CDT Appointment Department of Orthopedic Surgery in [place], [place] [address] [place] [phone] Ahsan Talbert M.D., Ph.D. [address] [place] [phone] 11/29/2023 10:00 AM CDT Procedure visit Department of Urology in [place], [place] [address] [place] [phone] Kate Egan P.A.-C. [address] [place] [phone] 01/06/2024 9:15 AM MANAGER OF LEARNING Office Visit Department of Orthopedic Surgery in [address] [phone] Jose Crawford M.D. [address] [place] [phone] 01/27/2024 4:30 PM MANAGER OF LEARNING Clinical Communication Virtual Review in [place], [place] 200 [place] [phone] 01/30/2024 3:30 PM MANAGER OF LEARNING Telemedicine Department of Urology in [address] [phone] Kate Egan P.A.-C. [address] [place] [phone] documented as of this encounter Visit Diagnoses Not on filedocumented in this encounter Additional Health Concerns Assessment Noted Time PHQ-9 Depression Total Score: 5 07/07/19 24 9:17 PM CDT documented as of this encounter Care Teams Account Underwriter Relationship Specialty Start Date End Date Elsewhere, Pcp PCP - General Internal Medicine 05/22/18 documented as of this encounter
--- OUTSIDE RECORDS SUMMARY | 2023-11-23 14:49 | XMS_ITS | Encounter Summary ---
Author Organization [facility] Address [address] [place] [address] Care Team Providers Care Contaminated Land Consultant Name Role Phone Elsewhere, Pcp Primary Care Provider Unavailabl e Reason for Referral * MRI/CAT/PET Scan (Routine) - Closed Specialty Diagnoses / Procedures Referred By Contac t Referred To Contact Radiology Diagnoses Pain Hip Right Procedures MR Hip Arthrogram Right Candida Lucero P.A.-C. [address] [place] [phone] Phone: tel: fax: [facility] Referral ID Status Reason Start Date Expiration Date Visits Re quested Visits Authorized [id number] Closed 10/24/2023 10/23/2024 1 1 * Outpatient (Routine) - Closed Specialty Diagnoses / Procedures Referred By Contac t Referred To Contact Diagnoses Pain Hip Right Procedures [place] Hip Arthrogram Injection Right Candida Lucero P.A.-Kathya 200 [place] [address] Phone: tel: fax: [facility] Referral ID Status Reason Start Date Expiration Date Visits Re quested Visits Authorized [id number] Closed 10/24/2023 10/23/2024 1 1 Reason for Visit * Appointment Request (Routine) - Closed Specialty Diagnoses / Procedures Referred By Contac t Referred To Contact Sports Medicine Diagnoses Pain Hip Bilateral Referral ID Status Reason Start Date Expiration Date Visits Re quested Visits Authorized [id number] Closed 10/07/2023 10/06/2024 1 1 Encounter Details Date Type Department Care Team (Late st Contact Info) Description 10/24/2023 1:15 PM CDT Telemedicine Department of Sports Medicine in [place], [place] [address] [place] [address] Ahsan Talbert M.D., Ph.D. [address] [place] [phone] Pain Hip Right (Primary Dx) Social History Tobacco Use Types Packs/Day Years Used Date Smoking Tobacco: Never Smokeless Tobacco: Never Alcohol Use Standard Drinks/Week Comments Yes 1 (1 standard drink = 0.6 oz pur e alcohol) [facility] Utilities Answer Date Recorded In the past 12 months has e [employer], gas, oil, or water [employer] threatened to shut off services in your [...] week 2022 How often do you attend [facility] or judaism services? More than 4 times per year [...] Answer Date Recorded PHQ-2 Score 0 07/07/2023 [facility] of Occupat ional Health - Occupational [...] your living situation today? I have a [facility] place to live 05/22/2023 Education Answer Date Recorded What is the highest level of school you have completed or the highest degree you have received? Some college, no degree 05/24/2020 Sex and Gender Information Value Date Recorded Sex Assigned at Male 10/29/2020 12:38 PM CDT Legal Sex Male 1:45 PM COUNTY HEALTH OFFICER Gender Identity Male 07/15/2019 8:59 AM CDT [...] He did have a second opinion at [place] where they did discuss a GUILLERMO. PATIENT [...] a proposed GUILLERMO with the group at [place]. For the time being, he would like [...] CDT Appointment Department of Orthopedic Surgery in [place], [place] [address] [place] [address] Ahsan Talbert M.D., Ph.D. [address] [place] [phone] 11/29/2023 10:00 AM CDT Procedure visit Department of Urology in [place], [place] [address] [place] [phone] Kate Egan P.A.-C. [address] [place] [phone] 01/06/2024 9:15 AM COUNTY HEALTH OFFICER Office Visit Department of Orthopedic Surgery in [place], [place] [address] [place] [phone] Jose Crawford M.D. [address] [place] [phone] 01/27/2024 4:30 PM COUNTY HEALTH OFFICER Clinical Communication Virtual Review in [place], [place] 200 [place] [phone] 01/30/2024 3:30 PM COUNTY HEALTH OFFICER Telemedicine Department of Urology in [place], [place] [address] [place] [phone] Kate Egan P.A.-C. [address] [place] [phone] documented as of this encounter Results * [...] prior labral repair versus recurrent tear. 2. ??Ttnt-zv-czhsqwjc chondromalacia about the right lateral hip. 3. [...] from prior labral repairversus recurrent tear. 2. Riiu-un-itvsjxve chondromalacia about the right lateral hip. 3. [...] MRarthrogram. NR us Candida Baltazar P.A.-C. IMG GRACIELA BAUTISTA Final Result documented in this encounter Visit Diagnoses Diagnosis Pain Hip Right- Primary Pain Hip Right Pain Hip Right documented in this encounter Additional Health Concerns Assessment Noted Time PHQ-9 Depression Total Score: 5 07/07/19 24 9:17 PM CDT documented as of this encounter Care Teams Contaminated Land Consultant Relationship Specialty Start Date End Date Elsewhere, Pcp PCP - General Internal Medicine 05/22/18 documented as of this encounter
--- OUTSIDE RECORDS SUMMARY | 2023-11-23 14:49 | XMS_ITS | Encounter Summary ---
Author Organization [facility] Address [address] [place] [address] Care Team Providers Care Customer Care Manager Name Role Phone Elsewhere, Pcp Primary Care Provider Unavailabl e Encounter Details Date Type Department Care Team (Latest Contact Info) Description 08/18/2023 7:00 AM CDT - 08/18/2023 11:59 PM CDT Hospital Encounter Department of Laboratory Medicine and Pathology, [facility], in [place], [place] [address] [place] [phone] Tam Clark M.D. [address] [place] [address] Frequency Urinary Discharge Disposition: Home or Self Care Social History Tobacco Use Types Packs/Day Years Used Date Smoking Tobacco: Never Smokeless Tobacco: Never Alcohol Use Standard Drinks/Week Comments Yes 1 (1 standard drink = 0.6 oz pur e alcohol) [facility] Utilities Answer Date Recorded In the past 12 months has [facility] [employer], [employer], oil, or water [employer] threatened to shut off services in your [...] do you attend [facility] or christian services? More than 4 times per year 2022 Do you belong to any clubs o r organizations such as samaritan groups, unions, fraternal or athletic groups, or [...] Answer Date Recorded PHQ-2 Score 0 07/07/2023 [facility] of Occupat ional Health - Occupational [...] your living situation today? I have a [facility] place to live 05/22/2023 Education Answer Date Recorded What is the highest level of school you have completed or the highest degree you have received? Some college, no degree 05/24/2020 Sex and Gender Information Value Date Recorded Sex Assigned at Male 10/29/2020 12:38 PM CDT Legal Sex Male 1:45 PM TAILINGS MAN Gender Identity Male 07/15/2019 8:59 AM CDT [...] CDT Appointment Department of Orthopedic Surgery in [address] [phone] Ahsan Talbert M.D., Ph.D. [address] [place] [phone] 11/29/2023 10:00 AM CDT Procedure visit Department of Urology in [address] [phone] Kate Egan, P.A.-C. [address] [place] [phone] 01/06/2024 9:15 AM TAILINGS MAN Office Visit Department of Orthopedic Surgery in [address] [phone] Jose Crawford M.D. [address] [place] [phone] 01/27/2024 4:30 PM TAILINGS MAN Clinical Communication Virtual Review in [place], [place] 200 [place] [phone] 01/30/2024 3:30 PM TAILINGS MAN Telemedicine Department of Urology in [address] [phone] Kate Egan P.A.-CMackenzie [address] [place] [phone] documented as of this encounter Procedures Procedure [...] CDT Tam Clark M.D. LAB URINE ORDERABLES Final Resu lt Performing Organization Address City/[facility]/ZIP Co de Phone Number [facility] [address] [place] [address], [facility] 200 [place] [address] * pH, Urine (08/18/2023 7:31 AM CDT) pH, U 6.1 4.5 - 8.0 08/18/2023 8:5 9 AM CDT DTL Urine 08/18/2023 7:31 AM CDT 08/18/2023 7:41 AM CDT Tam Clark M.D. LAB URINE ORDERABLES Final Resu lt Performing Organization Address City/[facility]/ZIP Co de Phone Number [facility] [address] [place] [address], [facility] [address] [place] [address] * Microscopic Automated (08/18/2023 7:31 AM CDT) Pathologist [facility] Microscopy Normal 08/18/2023 7:58 AM CDT DTL RBC None Seen <3 /hpf 08/18/2023 7:58 AM CDT DTL WBC None Seen /hpf 08/18/2023 7:58 AM CDT DTL Comment: ----REFERENCE VALUE---- <4 ??(Males) <11 (Females) Urine 08/18/2023 7:31 AM CDT 08/18/2023 7:41 AM CDT Tam Clark M.D. LAB URINE ORDERABLES Final Resu lt Performing Organization Address City/[facility]/ZIP Co de Phone Number [facility] [address] [place] [phone] [place] [address] [facility] [address] [place] [address] * Osmolality, Urine (08/18/2023 7:31 AM CDT) Pathologist [facility] Osmolality, U 356 150 - 1150 mOsm/kg 08/18/2023 8:59 AM CDT DTL Urine 08/18/2023 7:31 AM CDT 08/18/2023 7:41 AM CDT Tam Clark M.D. LAB URINE ORDERABLES Final Resu lt [facility] [address] [place] [address], [facility] [address] [place] [address] * Urinalysis, with Microscopic: Urine, Midstream (08/18/2023 [...] 7:31 AM CDT 08/18/2023 7:41 AM CDT us Tam Clark M.D. LAB URINE ORDERABLES Final Resu lt [facility] [address] [place] [address], [facility] DTL [facility] [address] [place] [address] documented in this encounter Visit Diagnoses Diagnosis Frequency Urinary documented in this encounter Additional Health Concerns Assessment Noted Time PHQ-9 Depression Total Score: 5 07/07/19 24 9:17 PM CDT documented as of this encounter Care Teams Customer Care Manager Relationship Specialty Start Date End Date Elsewhere, Pcp PCP - General Internal Medicine 05/22/18 documented as of this encounter
--- OUTSIDE RECORDS SUMMARY | 2023-11-23 14:49 | XMS_ITS | Encounter Summary ---
Author Organization [facility] Address [address] [place] [address] Care Team Providers Care Vacuum Spindle Sander Name Role Phone Elsewhere, Pcp Primary Care Provider Unavailabl e Reason for Referral * Outpatient (Routine) - Closed Specialty Diagnoses / Procedures Referred By Ye lund Referred To Contact Urology Kate Egan P.A.-CMackenzie [address] [place] [phone] Phone: tel: fax: Kate Egan P.A.-CMackenzie [address] [place] [phone] Phone: tel: fax: Referral ID Status Reason Start Date Expiration Date Visits Re quested Visits Authorized [id number] Closed 08/24/2023 02/22/2025 1 1 Encounter Details Date Type Department Care Team (Late st Contact Info) Description 08/24/2023 Orders Only Department of Urology in [place], [place] [address] [place] [phone] Kate Egan P.A.-CMackenzie [address] [place] [phone] Social History Tobacco Use Types Packs/Day Years Used Date Smoking Tobacco: Never Smokeless Tobacco: Never Alcohol Use Standard Drinks/Week Comments Yes 1 (1 standard drink = 0.6 oz pur e alcohol) [facility] Utilities Answer Date Recorded In the [...] often do you attend chur ch or scientologist services? More than 4 times per year [...] [facility] of Occupat ional [facility] - Occupational Stress Questionnaire Answer Date [...] PM CDT Legal Sex Male 1:45 PM BELT BRANDER Gender Identity Male 07/15/2019 8:59 AM CDT Sexual Orientation Straight 07/15/2019 8: 59 AM CDT documented as of this encounter Plan of Treatment Upcoming Encounters Date Type Department Care Team (Late st Contact Info) Description 11/29/2023 8:00 AM CDT Appointment Department of Orthopedic Surgery in [address] [phone] Ahsan Talbert M.D., Ph.D. [address] [place] [phone] 11/29/2023 10:00 AM CDT Procedure visit Department of Urology in [address] [phone] Kate Egan P.A.-CMackenzie [address] [place] [phone] 01/06/2024 9:15 AM BELT BRANDER Office Visit Department of Orthopedic Surgery in [place], [place] [address] [place] [phone] Jose Crawford M.D. [address] [place] [phone] 01/27/2024 4:30 PM BELT BRANDER Clinical Communication Virtual Review in [place], [place] 200 [place] [address] 01/30/2024 3:30 PM BELT BRANDER Telemedicine Department of Urology in [address] [phone] Kate Egan P.A.-C. [address] [place] [phone] Scheduled Referrals Name Type Priority Associated Diagnoses Orde r Schedule Urology office visit (clinic) General Outpatient Referral Routine Expected: 09/01/2023, Expires: 11/23/2024 documented as of this encounter Visit Diagnoses Not on filedocumented in this encounter Additional Health Concerns Assessment Noted Time PHQ-9 Depression Total Score: 5 07/07/19 24 9:17 PM CDT documented as of this encounter Care Teams Vacuum Spindle Sander Relationship Specialty Start Date End Date Elsewhere, Pcp PCP - General Internal Medicine 05/22/18 documented as of this encounter
--- OUTSIDE RECORDS SUMMARY | 2023-11-23 14:49 | XMS_ITS | Encounter Summary ---
Author Organization [facility] Address [address] [place] [address] Care Team Providers Care Transportation Manager Name Role Phone Elsewhere, Pcp Primary Care Provider Unavailabl e Reason for Referral * Outpatient (Routine) - Closed Specialty Diagnoses / Procedures Referred By Contac t Referred To Contact Social Work Diagnoses Pain Hip Bilateral Candida Lucero P.A.-C. [address] [place] [phone] Phone: tel: fax: [facility] Referral ID Status Reason Start Date Expiration Date Visits Re quested Visits Authorized [id number] Closed 09/15/2023 03/16/2025 1 1 Reason for Visit * Outpatient (Routine) - Closed Specialty Diagnoses / Procedures Referred By Contloraine lund Referred To Contact Sports Medicine Candida Lucero P.A.-C. [address] [place] [phone] Phone: tel: fax: [facility] Referral ID Status Reason Start Date Expiration Date Visits Re quested Visits Authorized [id number] Closed 07/11/2023 01/09/2025 1 1 Encounter Details Date Type Department Care Team (Late st Contact Info) Description 09/15/2023 8:00 AM CDT Telemedicine Department of Sports Medicine in [place], [place] [address] [place] [phone] Ahsan Talbert M.D., Ph.D. [address] [place] [address], [place] [phone] Pain Hip Bilateral (Primary Dx) Social History Tobacco Use Types Packs/Day Years Used Date Smoking Tobacco: Never Smokeless Tobacco: Never Alcohol Use Standard Drinks/Week Comments Yes 1 (1 standard drink = 0.6 oz pur e alcohol) [facility] Utilities Answer Date Recorded In the past 12 months has e [employer], gas, oil, or water [employer] threatened to shut off services in your [...] How often do you attend chur or christianity services? More than 4 times per year [...] PM CDT Legal Sex Male 1:45 PM GALLEY HAND Gender Identity Male 07/15/2019 8:59 AM CDT [...] CDT Appointment Department of Orthopedic Surgery in [address] [phone] Ahsan Talbert M.D., Ph.D. [address] [place] [phone] 11/29/2023 10:00 AM CDT Procedure visit Department of Urology in [address] [phone] Kate Egan P.A.-C. [address] [place] [phone] 01/06/2024 9:15 AM GALLEY HAND Office Visit Department of Orthopedic Surgery in [address] [phone] Jose Crawford M.D. [address] [place] [phone] 01/27/2024 4:30 PM GALLEY HAND Clinical Communication Virtual Review in [place], [place] [address] [place] [phone] 01/30/2024 3:30 PM GALLEY HAND Telemedicine Department of Urology in [place], [place] [address] [place] [phone] Kate Egan P.A.-C. [address] [place] [phone] Scheduled Referrals Name Type Priority Associated Diagnoses [...] documented as of this encounter Care Teams Transportation Manager Relationship Specialty Start Date End Date Elsewhere, Pcp PCP - General Internal Medicine 05/22/18 documented as of this encounter
--- OUTSIDE RECORDS SUMMARY | 2023-11-23 14:49 | XMS_ITS | Encounter Summary ---
Author Organization [facility] Address [address] [place] [address] Care Team Providers Care Wool Washer Feeder Name Role Phone Elsewhere, Pcp Primary Care Provider Unavailabl e Encounter Details Date Type Department Care Team (Latest Contact Info) Description 09/19/2023 Documentation RST RO Aisha Cleveland M.S.W., L.I.C.S.W. [address] [place] [phone] Social History Tobacco Use Types Packs/Day Years Used Date Smoking Tobacco: Never Smokeless Tobacco: Never Alcohol Use Standard Drinks/Week Comments Yes 1 (1 standard drink = 0.6 oz pur e alcohol) [facility] Utilities Answer Date Recorded In the past 12 months has e [place], gas, oil, or water [employer] threatened to shut off services in your [...] your living situation today? I have a [facility] place to live 05/22/2023 Education Answer Date Recorded What is the highest level of school you have completed or the highest degree you have received? Some college, no degree 05/24/2020 Sex and Gender Information Value Date Recorded Sex Assigned at Male 10/29/2020 12:38 PM CDT Legal Sex Male 1:45 PM SENIOR COMPLIANCE ANALYST Gender Identity Male 07/15/2019 8:59 AM CDT Sexual Orientation Straight 07/15/2019 8: 59 AM CDT documented as of this encounter Consult Notes * Aisha Foster L.I.C.S.W., M.S.W. - 09/19/2023 11:10 AM CDT SUBJECTIVE Patient is a 23-year-old single male from [place], [place] ([place], [place]). Patient was referred to the lobby clinic by [...] it has been approved by his insurance. parking worker called patient. Patient reports that he [...] circulation being cut off once in case. parking worker re-directed patient back to Dr. Talbert in Orthopedic Surgery for any medical questions concerning cast. Patient also states that the self-catheterizes three times daily. Patient reports that his mother works. parking worker parking worker did gently advise patient that the type of ass istance he is looking for is considered unskilled care, i.e. personal chef services which arenot reimbursed by health insurance. parking worker recommended that patient call [facility] ([phone] & [facility] to inquire about services. parking worker informed patient that social security assessor would send portal message with contact numbers for [facility] ([phone] & [facility] along with questions he should ask each agency. Patient does not think that he will be able to afford personal chef (SUPPLY MANAGER) services; unfortunately, this wouldbe patient's only option. Health insurance does not reimburse personal chef (SUPPLY MANAGER) services. parking worker also mailed pamphlets for [facility] & [facility]. Pamphlets describe the personal chef (SUPPLY MANAGER) services that they provide. Please see plan below. CHIEF COMPLAINT / REASON FOR VISIT patient was referred to the [facility] by Candida Christian PA-C, midlevel in Orthopedic Surgery for support/help following adult hip spica case placement. HISTORY OF PRESENT ILLNESS #1 Left hip pain with likely MARLENI #2 Status post right hip arthroscopy with Dr. Haines on 02/13/2020 Please see EMR for further details of patient's past medical history. OBJECTIVE INSURANCE: [facility] HMO = [facility] MEDICAID PLAN = SINGLE PAYOR SOURCE ASSESSMENT / PLAN ASSESSMENT Patient is a 23-year-old single male from [place], [place] ([place], [place]). Patient is cooperative, forthcoming and appears [...] perceptual disturbance. Patient was referred to the [facility] by Candida Christian PA-C, midlevel in Orthopedic Surgery for support/help following adult hip spica case placement. Chart review shows that patient has Klinefelter's syndrome. Patient is also status post RIGHT Total Hip Arthroplasty on 02/13/2020. As of 09/15/23, patient has not trialed HKAFO brace per documentation of Ahasn Talbert MD, PhD on 09/15/23. Dr. Talbert also noted on 09/15/23 that patient has not been able to trial HKAFO brace yet. He is hoping to begin using this brace soon as it has been approved by his insurance. parking worker called patient. Patient reports that he [...] circulation being cut off once in case. parking worker re-directed patient back to Dr. Talbert in Orthopedic Surgery for any medical questions concerning cast. Patient also states that the self-catheterizes three times daily. Patient reports that his mother works. parking worker parking worker did gently advise patient that the type of ass istance he is looking for is considered unskilled care, i.e. personal chef services which arenot reimbursed by health insurance. parking worker recommended that patient call [facility] ([phone] & [facility] to inquire about services. parking worker informed patient that social security assessor would send portal message with contact numbers for [facility] ([phone] & [facility] along with questions he should ask each agency. Patient does not think that he will be able to afford personal chef (SUPPLY MANAGER) services; unfortunately, this wouldbe patient's only option. Health insurance does not reimburse personal chef (SUPPLY MANAGER) services. parking worker also mailed pamphlets for [facility] & [facility]. Pamphlets describe the personal chef (SUPPLY MANAGER) services that they provide. Please see plan below. PLAN CAST PLACEMENT: Patient to have Spica cast placed on 11/07/23 at 3:30 PM. HOME HEALTH AGENCIES: Patient will call [facility] & [facility] to inquire about cost ofpersonal landcare facilitator (SUPPLY MANAGER) services. Patient has been informed that personal chef (SUPPLY MANAGER) services are not reimbursed by health insurance and will be an [id number]-[id number] cost to patient. PORTAL MESSAGE: parking worker sent portal message with the following information: [facility] [email or web address] [facility] [email or web address] I recommend that you ask to be connected to the respective offices closest to [place], [place]. service aide (SUPPLY MANAGER) services are not reimbursed by health insurance and are an yrr-io-[id number] payment for the patient. The above listed home health agencies accept tcp-[id number] payment for personal chef (SUPPLY MANAGER) services; however, you will need to call and inquire about staffing availability;whether they require a minimum number of hours per day to staff case; and potential start of care date. You will need to inquire as to whether the respective offices service [place], [place]. This social security assessor remains available to assist patient with any other issues of concern and apprised patient of same. Leo Bertrand, M.S.W. 09/19/2023 documented in this encounter Plan of Treatment Upcoming Encounters Date Type Department Care Team (Late st Contact Info) Description 11/29/2023 8:00 AM CDT Appointment Department of Orthopedic Surgery in [place], [place] [address] [place] [address] Ahsan Mixon M.D., Ph.D. [address] [place] [phone] 11/29/2023 10:00 AM CDT Procedure visit Department of Urology in [address] [phone] Kate Egan P.A.-C. [address] [place] [phone] 01/06/2024 9:15 AM SENIOR COMPLIANCE ANALYST Office Visit Department of Orthopedic Surgery in [address] [phone] Jose Crawford M.D. [address] [place] [phone] 01/27/2024 4:30 PM SENIOR COMPLIANCE ANALYST Clinical Communication Virtual Review in [place], [place] 200 [place] [phone] 01/30/2024 3:30 PM SENIOR COMPLIANCE ANALYST Telemedicine Department of Urology in [address] [phone] Kate Egan P.A.-C. [address] [place] [phone] documented as of this encounter Visit Diagnoses Not on filedocumented in this encounter Additional Health Concerns Assessment Noted Time PHQ-9 Depression Total Score: 5 07/07/19 24 9:17 PM CDT documented as of this encounter Care Teams Wool Washer Feeder Relationship Specialty Start Date End Date Elsewhere, Pcp PCP - General Internal Medicine 05/22/18 documented as of this encounter
--- OUTSIDE RECORDS SUMMARY | 2023-11-23 14:49 | XMS_ITS | Encounter Summary ---
Author Organization [facility] Address [address] [place] [address] Care Team Providers Care Application Development Project Manager Name Role Phone Elsewhere, Pcp Primary Care Provider Unavailabl e Reason for Visit * Outpatient (Routine) - Closed Specialty Diagnoses / Procedures Referred By Ye lund Referred To Contact Diagnoses Pain Hip Left Pain Hip Right Procedures ORS US-Guided aspiration/injection Candida Lucero P.A.-C. [address] [place] [phone] Phone: tel: fax: [facility] Referral ID Status Reason Start Date Expiration Date Visits Re quested Visits Authorized [id number] Closed 07/08/2023 07/07/2024 1 1 Encounter Details Date Type Department Care Team (Late st Contact Info) Description 08/31/2023 4:00 PM CDT Procedure visit Department of Sports Medicine in [place], [place] [address] [place] [phone] Armin Colvin M.D. [address] [place] [phone] Pain Hip Left; Pain Hip Right Social History Tobacco Use Types Packs/Day Years Used Date Smoking Tobacco: Never Smokeless Tobacco: Never Alcohol Use Standard Drinks/Week Comments Yes 1 (1 standard drink = 0.6 oz pur e alcohol) [facility] Utilities Answer Date Recorded In the [...] week 2022 How often do you attend [facility] or scientology services? More than 4 times per year [...] your living situation today? I have a [facility] place to live 05/22/2023 Education Answer Date Recorded What is the highest level of school you have completed or the highest degree you have received? Some college, no degree 05/24/2020 Sex and Gender Information Value Date Recorded Sex Assigned at Male 10/29/2020 12:38 PM CDT Legal Sex Male 1:45 PM PHOTO CARTOGRAPHER Gender Identity Male 07/15/2019 8:59 AM CDT Sexual Orientation Straight 07/15/2019 8: 59 AM CDT documented as of this encounter Patient Instructions * Patient Instructions* Monica Castellanos M.S., Love.Brandin., A.T.C. - 08/31/2023 4:00 PM CDT Diagnostic (Anesthetic-Only) Injection If questions or concerns, please call: [facility] at OR Sports Medicine [...] use heat for 24 hours. Injection Diary: [facility] Please bring this with you to your next appointment or send it to the physician who ordered your injection. Use the following tables. [place] the pain level at the times indicated. [...] gel were used. Right hip joint Machine: Ocapo [id number] Transducer: 2-14 MHz linear array Patient [...] excellent arthrogram effect. Left hip joint Machine: [employer] [id number] Transducer: 2-14 MHz linear array Patient [...] Boyce Barriers to learning: None Preferred language: Vietnamese Learning preferences include: Seeing and doing. Discussed: Post-procedure instructions Learner response: Learner voiced understanding. DIAGNOSIS: #1 Bilateral hip pain, status post sonographically-guided bilateral hip joint diagnostic anestheticinjections Hip site - Bilat hip joint: injection only Performed by: Armin Colvin M.D. Authorized by: Candida Lucero, P.A.-CMackenzie Care team members present 1. Armin Colvin [...] local infiltration Images have been archived in [employer]: click the 'Dept Filter' button in [employer], then the 'Clear (Show All)' button, then OK. documented in this encounter Plan of Treatment Upcoming Encounters Date Type Department Care Team (Late st Contact Info) Description 11/29/2023 8:00 AM CDT Appointment Department of Orthopedic Surgery in [address] [phone] Ahsan Talbert M.D., Ph.D. [address] [place] [phone] 11/29/2023 10:00 AM CDT Procedure visit Department of Urology in [address] [phone] Kate Egan P.A.-C. [address] [place] [phone] 01/06/2024 9:15 AM PHOTO CARTOGRAPHER Office Visit Department of Orthopedic Surgery in [address] [phone] Jose Crawford M.D. [address] [place] [phone] 01/27/2024 4:30 PM PHOTO CARTOGRAPHER Clinical Communication Virtual Review in [address] [phone] 01/30/2024 3:30 PM PHOTO CARTOGRAPHER Telemedicine Department of Urology in [address] [phone] Kate Egan P.A.-CMackenzie [address] [place] [phone] documented as of this encounter Procedures Procedure Name Priority Date/Time Associated Diagnosis Comments [place] ARTHCS ASP/INJ MJR JT W US Routine 08/31/2023 4:00 PM CDT Pain Hip Left Pain Hip Right documented in this encounter Results * [place] ARTHCS ASP/INJ MJR JT W US (08/31/2023 4:00 PM CDT) Narrative MMODAL - 08/31/2023 4:00 PM CDT Armin Colvin M.D. ? 09/21/2023 ??6:33 AM Hip site - Bilat hip joint: injection only Performed by: Armin Colvin M.D. Authorized by: Candida Lucero P.A.-CMackenzie ?? Care team members present 1. Armin Colvin M.D. 2. Monica Castellanos M.Iggy, L.A.T., [...] SURGI NICOLE ORDERABLES Final Result [facility]ODAL NA documented in this encounter Visit Diagnoses Diagnosis Pain Hip Left Pain Hip Right documented in this encounter Administered Medications Inactive Administered Medications - up to 3 most recent administrations Medication Order MAR Action Action Date Dose Rate Site lidocaine (PF) 10 mg/mL (1 %) injection 4 mL (Xylocaine) 4 mL, injection, One-Time Injection, Starting on Tue08/31/23 at 1600, For 1 doseIndications:Pain Hip Left,Pain Hip Right Given 08/31/2023 4:00 PM CDT 4 mL lidocaine (PF) 10 mg/mL (1 %) injection 4 mL (Xylocaine) 4 mL, injection, One-Time Injection, Starting on Tue08/31/23 at 1600, For 1 doseIndications:Pain Hip Left,Pain Hip Right Given 08/31/2023 4:00 PM CDT 4 mL ROPivacaine (PF) 5 mg/mL (0.5 %) injection 5 mL (Naropin) 5 mL, injection, One-Time Injection, Starting on Tue08/31/23 at 1600, For 1 doseIndications:Pain Hip Left,Pain Hip Right Given 08/31/2023 4:00 PM CDT 5 mL ROPivacaine (PF) 5 mg/mL (0.5 %) injection 5 mL (Naropin) 5 mL, injection, One-Time Injection, Starting on Tue08/31/23 at 1600, For 1 doseIndications:Pain Hip Left,Pain Hip Right Given 08/31/2023 4:00 PM CDT 5 mL documented in this encounter Additional Health Concerns Assessment Noted Time PHQ-9 Depression Total Score: 5 07/07/19 24 9:17 PM CDT documented as of this encounter Care Teams Application Development Project Manager Relationship Specialty Start Date End Date Elsewhere, Pcp PCP - General Internal Medicine 05/22/18 documented as of this encounter
--- OUTSIDE RECORDS SUMMARY | 2023-11-23 14:50 | XMS_ITS | Clinical Summary ---
Author Organization [facility] Address [address], [place] [address] Care Team Providers Care Sharepoint Solutions Developer Name Role Phone Eliana Guerra MD Primary Care Provider [phone] Source Comments You are receiving this document as you are listed as the primary care provider,follow-up provider, or the patient has been referred to you for consultation.This is in compliance with the Medicare and[facility] EHR Incentive Program,which states Providers who [...] 02/23/2017 HPV Vaccine Completed 10/28/2020, 02/08, 10/19/2019 RSV Aged Out No longer eligi ble based on patient's age to complete this topic Procedures Procedure Name Priority Date/Time Associated Diagnosis [...] MITOGEN >10.000 IU/mL 09/13/2023 11:45 AM CDT [facility] Blood Venipuncture / Unknown 09/12/2023 9:26 AM CDT 09/12/2023 9:34 AM CDT Anurag Hoffman MD LAB_1 Performing Organization Address [facility] de Phone Number [facility] [address] [place] [address] * TB QuantiFERON Gold Plus TB2 (09/12/2023 9:26 AM CDT) TB2 0.010 IU/mL 09/13/2023 11:45 AM CDT [facility] Blood Venipuncture / Unknown 09/12/2023 9:26 AM CDT 09/12/2023 9:34 AM CDT Anurag Hoffman MD LAB_1 Performing Organization Address [facility] Phone Number [facility] [address] [place] [address] * TB QuantiFERON Gold Plus TB1 (09/12/2023 9:26 AM CDT) TB1 0.015 IU/mL 09/13/2023 11:45 AM CDT [facility] Blood Venipuncture / Unknown 09/12/2023 9:26 AM CDT 09/12/2023 9:34 AM CDT Anurag Hoffman MD LAB_1 Performing Organization Address [facility] Phone Number [facility] [address] [place] [address] * TB QuantiFERON Gold Plus NIL (09/12/2023 9:26 AM CDT) TB QuantiFERON Gold Plus Negative, M. tuberculosis Infection NOT likely Negative, M. tuberculosis Infection NOT likely 09/13/2023 11:47 AM CDT [facility] NIL 0.001 IU/mL 09/13/2023 11:47 AM CDT [facility] TB1-NIL 0.02 IU/mL 09/13/2023 11:47 AM CDT [facility] TB2-NIL 0.01 IU/mL 09/13/2023 11:47 AM CDT [facility] Mitogen-NIL 10.00 IU/mL 09/13/2023 11:47 AM CDT [facility] Blood Venipuncture / Unknown 09/12/2023 9:26 AM CDT 09/12/2023 9:34 AM CDT Narrative [facility] - 09/13/2023 11:47 AM CDT The [...] immune response. For more information refer to: https://www.cdc.gov/mmwr/preview/mmwrhtml/hp0865q1.htm. Anurag Hoffman MD LAB_1 [facility] [address] [place] [address], [facility] from Last 3 Months Care Teams Sharepoint Solutions Developer Relationship Specialty Start Date End Date Eliana Guerra MD [address] [place] [address] PCP - General Family Practice 12/04/19
--- OUTSIDE RECORDS SUMMARY | 2023-11-23 14:50 | XMS_ITS | Encounter Summary ---
Author Organization [facility] Address [address] [place] [address] Care Team Providers Care Quarry Supervisor Dimension Stone Name Role Phone Elsewhere, Pcp Primary Care Provider Unavailabl e Reason for Referral * Physical Therapy (Routine) - Authorized Specialty Diagnoses / Procedures Referred By Ye lund Referred To Contact Diagnoses Pain Pelvic Male Spasm Muscle Procedures PT Ongoing treatment Corrine Lewis P.A.-C., M.S. [address] [place] [phone] Phone: tel: fax: [facility] Referral ID Status Reason Start Date Expiration Date V isits Requested Visits Authorized [id number] Authorized 08/18/2023 02/07/2024 12 12 Reason for Visit * Physical Therapy (Routine) - Closed Specialty Diagnoses / Procedures Referred By Ye lund Referred To Contact Diagnoses Pain Pelvic Male Procedures PT or OT eval and treat (first available) Corrine Lewis P.A.-C., M.S. [address] [place] [phone] Phone: tel: fax: [facility] Referral ID Status Reason Start Date Expiration Date Visits Re quested Visits Authorized [id number] Closed 06/02/2023 06/01/2024 1 1 Encounter Details Date Type Department Care Team (Latest Contact Info) Description 08/18/2023 10:30 AM CDT Comprehensive Visit Department of Physical Medicine and Rehabilitation in [place], [place] [address] [place] [phone] Corrine Lewis P.A.-C., M.S. [address] [place] [phone] Bel Rojo P.T., D.P.T., OCS [address] [place] [address] Spasm Muscle (Primary Dx); Pain Pelvic Male Social History Tobacco Use Types Packs/Day Years Used Date Smoking Tobacco: Never Smokeless Tobacco: Never Alcohol Use Standard Drinks/Week Comments Yes 1 (1 standard drink = 0.6 oz pur e alcohol) [facility] Utilities Answer Date Recorded In the past 12 months has e electric, gas, oil, or water [employer] threatened to shut off services in your [...] often do you attend chur ch or sabianist services? More than 4 times [...] Answer Date Recorded PHQ-2 Score 0 07/07/2023 [facility] - Occupational Stress Questionnaire Answer Date Recorded [...] PM CDT Legal Sex Male 1:45 PM PERSONAL CARE ATTENDANT Gender Identity Male 07/15/2019 8:59 AM CDT Sexual Orientation Straight 07/15/2019 8: 59 AM CDT documented as of this encounter Consult Notes * Bel Rojo P.T., D.P.T., [facility] - 08/18/2023 10:30 AM CDT Physical Therapy [...] Male Reason for Referral: pelvic pain Payor: [facility] [place] CARE / Plan: [facility] BLUE [employer] HMO / Product Type: Medicaid HMO / Food Sprout Visit Count: 1 PT Next Certification Date: [...] exercises. He is playing softball, pickleball and [employer]. Pelvic floor muscle functioning/screen: ORTHOPEDIC: He has [...] Patient consents to evaluation with no additional president ergonomic consulting present. Explained each step of pelvic floor [...] noted in objective. Self Care/Home Management: -See [employer] below Home Exercise Program/ Education: Access Code: [email or web address] URL: [email or web address] Date: 08/18/2023 Prepared by: Carie Rojo Program [...] following patient education materials were provided today: Tradono: Paper copy provided to patient Assessment Clinical [...] 66 min Corrine Rojo P.T., D.P.T., OCS Cosigned by Tam Clark M.D. at 08/18/2023 12:48 PM CDT documented in this encounter Plan of Treatment Upcoming Encounters Date Type Department Care Team (Late st Contact Info) Description 11/29/2023 8:00 AM CDT Appointment Department of Orthopedic Surgery in [address] [phone] Ahsan Talbert M.D., Ph.D. [address] [place] [phone] 11/29/2023 10:00 AM CDT Procedure visit Department of Urology in [address] [phone] Kate Egan P.A.-C. [address] [place] [phone] 01/06/2024 9:15 AM PERSONAL CARE ATTENDANT Office Visit Department of Orthopedic Surgery in [address] [phone] Jose Crawford M.D. [address] [place] [phone] 01/27/2024 4:30 PM PERSONAL CARE ATTENDANT Clinical Communication Virtual Review in [address] [phone] 01/30/2024 3:30 PM PERSONAL CARE ATTENDANT Telemedicine Department of Urology in [address] [phone] Kate Egan P.A.-C. [address] [place] [phone] documented as of this encounter Visit Diagnoses Diagnosis Spasm Muscle- Primary Pain Pelvic Male documented in this encounter Additional Health Concerns Assessment Noted Time PHQ-9 Depression Total Score: 5 07/07/19 24 9:17 PM CDT documented as of this encounter Care Teams Quarry Supervisor Dimension Stone Relationship Specialty Start Date End Date Elsewhere, Pcp PCP - General Internal Medicine 05/22/18 documented as of this encounter
--- OUTSIDE RECORDS SUMMARY | 2023-11-23 14:50 | XMS_ITS | Patient Health Record ---
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 Problem 31168810 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 Plan Of Treatment Pending Test Test Name Order Date C-Reactive Protein (CRP) (CRP) 8 Insurance Providers Payer Name Payer Address Payer Phone Subscriber Number Group Number Insured Name Patient Relationship to Insured Coverage Start Date Coverage End Date BLUE PLUS PMAP-20 19 [address] [address] [place] [phone] [id number] [facility] Paramjit Boyce Self - patient is the insured 9 Medical (General) History Medical History History ICD Code Syndromes/anomalies: Connective tissue d isorder Other: Pectus excavatum, Acquired pectus carinatum Surgical History Surgery Date(Month/Year) Daja procedure for pectus excavatum 10/08 10/25
--- OUTSIDE RECORDS SUMMARY | 2023-11-23 14:50 | XMS_ITS | Data Portability ---
Author Organization [place] [facility] Address [address] [facility] [address] [place] [address] Care Team Providers Care Buhr Mill Operator Name Role Phone TISHA CALDERON Referring Provider [...] I had the discussion with the radiologist x ray technician today. Risk of complications include disease/symptom [...] contrast 2020 [address] [facility] [place] [address] [address] [facility], [place], [address], 11:48:08 Medication Orders None recorded. Patient TargetsNo targets recorded. Patient Instructions Encounter Date Encounter Id Patient Instructions Last Modified By Organization Details Last Modified Time 09/18/2020 [id number] Self Care for TMD Not availab le [...] disc disorder of temporom andibula r joint 47552976 Active 2020 Bilateral DD w reduction and intermitt ent locking [facility] [place] [address] [facility] [address], [place], [place], [address] [place] [address], [facility] 1 10:14:10 Arthralg ia of temporom andibula r joint 07856217 Active 2020 TMJs MONE PEREZ BDS, [place] [address] [facility] [address], [place], [place], [address] [place] [address], [facility] 1 05:09:27 Myofasci al pain 404742621 Active 2020 [place] and cervical muscles [facility] [place] [address] [facility] [address], [place], [place], [address] [place] [address], [facility] 1 05:10:21 Tension- type headache 336651325 Active 2020 MONE PEREZ BDS, [place] [address] [facility] [address], [place], [place], [address] [place] [address], [facility] 1 05:10:27 Bilatera l tinnitus 26664472547 02 Active 2020 MONE PEREZ BDS, [place] [address] [facility] [address], [place], [place], [address] [place] [address], [facility] 1 05:10:30 Bilatera l crepitus of temporom andibula r joints on opening 371711665 Active 2020 MONE PEREZ BDS, [place] [address] [facility] [address], [place], [address] [place] [address], [facility] 1 05:10:53 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 Procedures Surgical History Date Name Laterality Status Provider Name and Address Organization Details Recorded Time 1 Oral appliance completed Silvestre Carey [facility] 11/20/2020 12:30:14 operation on hip joint completed Sydnie Tamayo [facility] 09/18/2020 [...] [degF] 120 mm[Hg] 80 mm[Hg] Sydnie Tamayo [facility] 09:32:33 Date Recorded Body height Body temperature Provider N ashley and Address Organization Details Last Updated DateTime 11/20/2020 185.42 cm 97.3 [degF] Silvestre Carey [facility] 11/20/2020 12:25:26 Social History Question Answer Notes LastModified by Organizat ion Details LastModified Time Do You Feel Stressed (tense, Restless, Nervous, Or Anxious, Or Unable To Sleep At Night)? 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 M26.633 Myofascial pain 29100972 9 M79.11 M54.2 Musculoske letal hypermobility 12110012 M35.7 Arthralgia of temporomandibular joint 10375586 M26.623 Bilateral tinnitus 90822 62374 102 H93.13 Tension-type headache 39 8186622 G44.209 Bilateral crepitus of temporomandibular joints on opening 463043864 M26.69 [id number] PRELUCAS PEREZ BDS, [place] Kieran francisco [address] [place] [phone] 11/20/2020 11:52:08 11/20/2020 12:52:44 Myofascial pain 160060032 M79.11 M54.2 Tension-type headache 39 7722880 G44.209 Musculoske letal hypermobility 37776683 M35.7 Bilateral tinnitus 02464 19953 102 H93.13 Bilateral crepitus of temporomandibular joints on opening 772286887 M26.69 Arthralgia of temporomandibular joint 93486451 M26.623 Articular disc disorder of temporomandibular joint 51496050 M26.633 Health Concerns Section Related Observation LastModified by Organization Detai ls LastModified Time None Recorded Concern Status LastModified by Organization Details LastModified Time None Recorded Advance Directives Directive None Recorded Payers Encounter Date Sequence Insurance Name Policy Number Policy Candelaria Covered Member ID Candelaria Member ID Guarantor Name 09/18/2020 1 [facility] ([facility] REPLAC[facility] - HMO) [facility] Chetan Boyce [id number] Paramjit Boyce 11/20/2020 1 [facility] ([place]ICA[place] REPLAC[place] - HMO) [facility] Chetan Boyce [id number] Paramjit Boyce Notes Date Note Type [...] not aware of teeth clenching and grinding. Paramjit is referred by his orthrodontist, Dr. Tisha [...] his musculoskelatal hypermobility. Paramjit has seen a bag sorter when he was 17, however, symptoms have been worse now. 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 MONE PEREZ BDS, [place] [address] [facility] [address], [place], [address], [facility] [...] in ihis chest. MONE PEREZ BDS, [place] [address] [facility] [address], [place], [address], [facility] 11/24/2020 07:16:12
--- OUTSIDE RECORDS SUMMARY | 2023-11-23 14:50 | XMS_ITS | Encounter Summary ---
Author Organization [facility] Address [address], [place] [address] Care Team Providers Care Hardboard Panel Printer Name Role Phone Eliana Guerra MD Primary Care Provider [phone] Encounter Details Date Type Department Care Team (Latest Contact Info) Description 09/12/2023 6:00 AM CDT - 09/12/2023 11:59 PM CDT Hospital Encounter Security Contact - None Anurag Hoffman MD [address] [place] [address] Discharge Disposition: Home Social History Tobacco Use [...] MITOGEN >10.000 IU/mL 09/13/2023 11:45 AM CDT [facility] Blood Venipuncture / Unknown 09/12/2023 9:26 AM CDT 09/12/2023 9:34 AM CDT Anurag Hoffman MD LAB_1 Performing Organization Address [facility] Co de Phone Number [facility] [address] [place] [address] * TB QuantiFERON Gold Plus TB2 (09/12/2023 9:26 AM CDT) TB2 0.010 IU/mL 09/13/2023 11:45 AM CDT [facility] Blood Venipuncture / Unknown 09/12/2023 9:26 AM CDT 09/12/2023 9:34 AM CDT Anurag Hoffman MD LAB_1 Performing Organization Address [facility] Phone Number [facility] [address] [place] [address] * TB QuantiFERON Gold Plus TB1 (09/12/2023 9:26 AM CDT) TB1 0.015 IU/mL 09/13/2023 11:45 AM CDT [facility] Blood Venipuncture / Unknown 09/12/2023 9:26 AM CDT 09/12/2023 9:34 AM CDT Anurag Hoffman MD LAB_1 Performing Organization Address [facility] de Phone Number [facility] [address] [place] [address] * TB QuantiFERON Gold Plus NIL (09/12/2023 9:26 AM CDT) TB QuantiFERON Gold Plus Negative, M. tuberculosis Infection NOT likely Negative, M. tuberculosis Infection NOT likely 09/13/2023 11:47 AM CDT [facility] NIL 0.001 IU/mL 09/13/2023 11:47 AM CDT [facility] TB1-NIL 0.02 IU/mL 09/13/2023 11:47 AM CDT [facility] TB2-NIL 0.01 IU/mL 09/13/2023 11:47 AM CDT [facility] Mitogen-NIL 10.00 IU/mL 09/13/2023 11:47 AM CDT [facility] Blood Venipuncture / Unknown 09/12/2023 9:26 AM CDT 09/12/2023 9:34 AM CDT Narrative [facility] - 09/13/2023 11:47 AM CDT The [...] immune response. For more information refer to: https://www.cdc.gov/mmwr/preview/mmwrhtml/ru2981v8.htm. Anurag Hoffman MD LAB_1 [facility] [address] documented in this encounter Visit Diagnoses Not on filedocumented in this encounter Care Teams Hardboard Panel Printer Relationship Specialty Start Date End Date Eliana Guerra MD [address] [place] [address] PCP - General Family Practice 12/04/19 documented as of this encounter
--- NOTE | 2023-11-23 15:30 | CRLHL7_ITS ---
For Patients: As a result of the Century Cures Act, medical imaging exams and procedure reports are released immediately into your electronic medical record. You may view this report before your referring provider. If you have questions, please contact your health care provider. Indication: Flat feet. Technique: Three views of the right foot. Comparison: None. Findings/Impression: There is flattening of the plantar arch. Bone density is normal. No fracture or osteonecrosis. The joints throughout the foot are well preserved. No inflammatory arthritis. Normal soft tissues. Dictated by Shay Paz MD @ 11/27/2023 7:23:44 PM (Electronically Signed)
== END 2023-11-23 14:44 | disposition home or self-care (01) ==
LOC: MRI 14:44
PROVIDERS: PCP Family Medicine; Visit Provider Podiatrist
DX: M25.571 Pain in right ankle and joints of right foot (principal); M76.71 Peroneal tendinitis, right leg; M24.471 Recurrent dislocation, right ankle; M21.41 Flat foot [pes planus] (acquired), right foot
CPT/HCPCS: 73630; 73721

== ENCOUNTER 2023-11-25 16:35 | Inpatient (IN) | payer BC, SELFPAY ==
[2023-11-25 16:38] VITALS: BP 150/98; PULSE 129; RESP 18; TEMP 37.8; O2SAT 100; BMI 19.1
--- NOTE | 2023-11-25 16:46 | ED.FEVER ---
HPI - Fever General Time Seen by Provider: 16:47 Date Seen: 11/25/23 Chief Complaint: Fever Stated Complaint: Suspected UTI Time Seen by Provider: 11/25/23 16:46 Source: patient, RN notes reviewed and old records reviewed Mode of arrival: ambulatory Limitations: no limitations History of Present Illness HPI Narrative: 23-year-old male who presents today with concern for fever. Patient notes bladder cramping, blood in his catheter, and body aches today. Temperature was 99.4? earlier. Has not taken anything for this. Denies cough, shortness of breath, does have a sore throat. Denies vomiting and diarrhea. Related Data Home Medications ?Medication ?Instructions ?Recorded ?Confirmed aspirin 81 mg chewable tablet 1 tab PO BID 11/08/23 11/25/23 cyclobenzaprine 5 mg tablet 5 mg PO 3XD PRN 11/08/23 11/25/23 diclofenac sodium 1 % topical gel 2 g topical QID 11/08/23 11/25/23 famotidine 40 mg tablet 40 mg PO DAILY 11/08/23 11/25/23 Allergies Allergy/AdvReac Type Severity Reaction Status Date / Time No Known Allergies Allergy Verified 11/25/23 16:44 [facility] Medical History Scaphoid fracture ?S62.009A - Unspecified fracture of navicular [scaphoid] bone of unspecified wrist, initial encounter for closed fracture (ICD-10) Klinefelter syndrome ?Q98.4 - Klinefelter syndrome, unspecified (ICD-10) 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 - Pectus excavatum (ICD-10) Contusion of great toe of left foot ?S90.112A - Contusion of left great toe without damage to nail, initial encounter (ICD-10) Chronic patellofemoral pain of left knee ?M25.562 - Pain in left knee (ICD-10) ?G89.29 - Other chronic pain (ICD-10) Tear of triangular fibrocartilage complex (TFCC) of right wrist (~07/2021) ?S63.591A - Other specified sprain of right wrist, initial encounter (ICD-10) Surgical History Status post arthroscopy of hip ?Z98.890 - Other specified postprocedural states (ICD-10) History of carpal tunnel surgery of left wrist (02/02/21) ?Z98.890 - Other specified postprocedural states (ICD-10) Social History Smoking Status: Never smoker Do you use any of these nicotine containing products: None Second hand tobacco smoke exposure: No Non-prescribed substance use: denies use Exam Narrative Exam Narrative: General: Well-developed and well-nourished, no acute distress Head: Atraumatic and normocephalic Eyes: Pupils are equal reactive, extraocular motions intact, conjunctiva clear ENT: External nose and ears are normal, posterior pharynx without erythema or exudate Neck: No midline cervical tenderness, full spontaneous range of motion the neck, trachea midline, no adenopathy Heart: Tachycardic rate and rhythm no murmurs or thrills Lungs: Clear to auscultation bilaterally without wheezes or crackles Abdomen: Soft, nontender, nondistended with active bowel sounds Musculoskeletal: No tenderness, deformity, or edema Neurologic: Awake, alert, and oriented x3, no gross focal neurologic deficits, cranial nerves intact as tested Psych: Mood and affect are appropriate Skin: No rashes Const Vital Signs, click to edit/add: Vital Signs - 24 hr 11/25/23 16:38 11/25/23 17:30 Temperature 100.1 F H Pulse Rate [Right Pulse Oximeter] 129 H Respiratory Rate 18 Blood Pressure [Right Upper Arm] 150/98 H Pulse Oximetry 100 Oxygen Delivery Method Room Air Room Air Course Course ED Course: Patient seen examined, reviewed prior records which show history of Klinefelter syndrome and connective tissue disorder, has an indwelling urinary catheter. Patient is currently in a cast that goes from mid abdomen down the left leg, also bilateral wrist casts. Presents today with low-grade fever, urinary concerns. On exam here, patient is awake alert, tachycardic. Lungs are clear, unable to palpate bladder due to cast. Concern for possible urinary tract infection, pneumonia. Patient has no abdominal pain and will defer imaging of the abdomen for now. Will change catheter and obtain urine sample. IV fluids and Tylenol are ordered. Reevaluation(s) Time of Reevaluation #1: 18:03 Reevaluation #1: Labs independently interpreted by me with normal white blood cell count, normal lactate. Chest x-ray independently interpreted by me negative for acute findings. Time of Reevaluation #2: 18:36 Reevaluation #2: Labs independently interpreted by me with Urinalysis consistent with infection, Rocephin IV is ordered. No evidence for sepsis or acute kidney injury. Respiratory panel negative, strep test negative. Requested the patient be put on monitoring as he was tachycardic on initial arrival, if this is improved, patient is afebrile. Time of Reevaluation #3: 18:56 Reevaluation #3: I had a long conversation with the patient about going home. He currently is in bilateral wrist cast along with his left lower extremity cast. Normally has been using crutches but is not able to do so now. Additionally, he is not able to open medication bottles and is having difficulty with transfers. Care discussed with Dr. Lopez for observation and consideration for TCU placement. Vital Signs Vital signs: Initial Vital Signs Temperature 100.1 F H 11/25/23 16:38 Temperature Source Temporal Artery Scan 11/25/23 16:38 Pulse Rate 129 H 11/25/23 16:38 Pulse Rhythm Regular 11/25/23 16:38 Pulse Strength 3+ Normal 11/25/23 16:38 Respiratory Rate 18 11/25/23 16:38 Blood Pressure 150/98 H 11/25/23 16:38 Blood Pressure Mean 115 H 11/25/23 16:38 Blood Pressure Position Sitting 11/25/23 16:38 Pulse Oximetry 100 11/25/23 16:38 Oxygen Delivery Method Room Air 11/25/23 16:38 Vital Signs Temperature 100.1 F H 11/25/23 16:38 Pulse Rate 129 H 11/25/23 16:38 Respiratory Rate 18 11/25/23 16:38 Blood Pressure 150/98 H 11/25/23 16:38 Pulse Oximetry 100 11/25/23 16:38 Oxygen Delivery Method Room Air 11/25/23 16:38 Temperature 100.1 F H 11/25/23 16:38 Pulse Rate 129 H 11/25/23 16:38 Respiratory Rate 18 11/25/23 16:38 Blood Pressure 150/98 H 11/25/23 16:38 Pulse Oximetry 100 11/25/23 16:38 Oxygen Delivery Method Room Air 11/25/23 17:30 Medications Administered Medications: Generic Name Dose Route Start Last Admin Trade Name Jordan PRN Reason Stop Dose Admin Ceftriaxone Sodium 1 gm/ 100 mls @ 200 mls/hr 11/25/23 18:37 11/25/23 18:52 Sodium Chloride IVPB 11/25/23 18:38 200 mls/hr ONCE ONE Administration Discontinued Medications Generic Name Dose Route Start Last Admin Trade Name Jordan PRN Reason Stop Dose Admin Acetaminophen 1,000 mg 11/25/23 17:08 11/25/23 17:20 Acetaminophen 500 Mg Tablet PO 11/25/23 17:09 1,000 mg ONCE ONE Administration Sodium Chloride 1,000 mls @ 1,000 mls/hr 11/25/23 17:15 11/25/23 17:21 0.9 % Sodium Chloride 1000 Ml IV 11/25/23 18:14 1,000 mls/hr .Q1H BARBARA Administration Lidocaine HCl 6 ml 11/25/23 17:32 11/25/23 17:45 Lidocaine Hcl 2 % Jelly (Top) Sterile TOPICAL 11/25/23 17:33 6 ml ONCE ONE Administration MDM - Fever Lab Data Labs: Lab Results 11/25/23 11/25/23 11/25/23 Range/Units 17:04 17:39 17:45 WBC 8.06 (4.50-11.00) K/uL RBC 5.26 (4.30-5.90) m/uL Hgb 15.5 (13.5-17.5) gm/dL Hct 44.9 (37.0-53.0) % MCV 85 (80-100) fL MCH 30 (26-34) pg MCHC 35 (32-36) gm/dL RDW Coeff of Mele 11.8 (11.5-15.5) % Plt Count 202 (140-440) K/uL Neut % (Auto) 63.4 (42.0-72.0) % Lymph % (Auto) 24.6 (20-44) % Bowman % (Auto) 8.2 (0.0-11.0) % Eos % (Auto) 3.3 (0.0-7.0) % Baso % (Auto) 0.4 (0.0-3.0) % Neut # (Auto) 5.11 (1.7-7.0) K/uL Lymph # (Auto) 1.98 (0.90-2.90) K/uL Bowman # (Auto) 0.70 (0.00-0.90) K/UL Eos # (Auto) 0.27 (0.00-0.50) K/uL Baso # (Auto) 0.03 (0.00-0.30) K/uL Abs Immat Gran (auto) 0.01 (0.00-0.30) K/uL Imm/Tot Granulo (auto) 0.1 % Sodium 139 (135-149) mmol/L Potassium 3.7 (3.6-5.1) mmol/L Chloride 105 (96-114) mmol/L Carbon Dioxide 25 (20-32) mmol/L Anion Gap 9 (7-15) mEq/L BUN 16 (5-24) mg/dL Creatinine 1.0 (0.5-1.5) mg/dL Estimated Creat Clear 106.88 Estimated GFR 108 ml/min Glucose 96 (60-115) mg/dL Lactate 1.2 (0.5-1.9) mmol/L Calcium 9.6 (8.4-10.6) mg/dL Magnesium 2.0 (1.5-2.6) mg/dL Urine Color Yellow (Yellow) Urine Appearance Slightly Cloudy A (Clear) Urine pH 6.5 (5.0-8.5) Ur Specific [place] 1.025 (1.000-1.030) Urine Protein 2+ A (Negative) Urine Glucose (UA) Negative (Negative) Urine Ketones Negative (Negative) Urine Blood 2+ A (Negative) Urine Nitrite Positive A (Negative) Urine Bilirubin Negative (Negative) Urine Urobilinogen 1.0 (0.2-1.0) Ur Leukocyte Esterase 1+ A (Negative) SARS-CoV-2 (PCR) Negative SARS-CoV-2 (Negative) Influenza Type A (PCR) Negative PCR FLU A (Negative) Influenza Type B (PCR) Negative PCR FLU B (Negative) RSV (PCR) Negative PCR RSV (Negative) Group A Strep DNA NOT DETECTED (Not Detectd) Discharge Plan Discharge Clinical Impression: Complicated urinary tract infection, Connective tissue disorder, Klinefelter syndrome Patient Disposition: Admitted As Observation
--- NOTE | 2023-11-25 17:03 | XR_ITS ---
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 Site :?[id number] Study:?XRay-Chest Portable-11/25/2023 6:38:48 PM Ordering Physician:Katherin Arteaga Final Report: INDICATION: Fever TECHNIQUE: Chest 1 views. COMPARISON: None. FINDINGS: No focal consolidation, pleural effusion or pneumothorax. Cardiac size is within normal limit without pulmonary edema. No acute osseous findings. IMPRESSION: No acute cardiopulmonary process. Dictated by Pierre Scott MD @ 11/25/2023 7:40:54 PM Signed by:?Pierre Scott MD @11/25/2023 7:40:54 PM (Electronic Signature)
[2023-11-25] MEDS: ACETAMINOPHEN 500 MG TABLET 1000 MG PO (17:20)
[2023-11-25] MEDS: 0.9 % SODIUM CHLORIDE 1000 ml 1,000 ML IV (17:21)
[2023-11-25 17:45] LABS: Lactate* 1.2 mmol/L (0.5-1.9)
[2023-11-25] MEDS: lidocaine HCL 2 % JELLY (TOP) STERILE 6 ML TOPICAL (17:45)
[2023-11-25 17:48] LABS: Basophils Absolute Auto 0.03 K/uL (0.00-0.30); Basophils Percent Auto 0.4 % (0.0-3.0); Eosinophils Absolute Auto 0.27 K/uL (0.00-0.50); Eosinophils Percent Auto 3.3 % (0.0-7.0); Hematocrit 44.9 % (37.0-53.0); Hemoglobin* 15.5 gm/dL (13.5-17.5); Immature Granulocytes Abs Auto 0.01 K/uL (0.00-0.30); Immature Granulocytes Pct Auto 0.1 %; Lymphocytes Absolute Auto 1.98 K/uL (0.90-2.90); Lymphocytes Percent Auto 24.6 % (20-44); Mean Corpuscular HGB Conc 35 gm/dL (32-36); Mean Corpuscular Hemoglobin 30 pg (26-34); Mean Corpuscular Volume 85 fL (80-100); Monocytes Percent Auto 8.2 % (0.0-11.0); Neutrophils Absolute Auto 5.11 K/uL (1.7-7.0); Neutrophils Percent Auto 63.4 % (42.0-72.0); Platelet Count* 202 K/uL (140-440); RDW Coefficient of Variation % 11.8 % (11.5-15.5); Red Blood Count 5.26 m/uL (4.30-5.90); White Blood Count* 8.06 K/uL (4.50-11.00)
[2023-11-25 17:49] LABS: Slide Review Reflex No
--- OUTSIDE RECORDS SUMMARY | 2023-11-25 17:56 | XMS_ITS ---
Author Organization [facility] Address [address] [place] [address] Care Team Providers Care Pool Player Name Role Phone Unavailable Unavailable Unavailable Surgery Details Not on file Complications Check Surgery Details section. Procedure Estimated Blood Loss Check Surgery Details section. Procedure Findings Check Surgery Details section. Procedure Specimens Taken Check Surgery Details section.
--- OUTSIDE RECORDS SUMMARY | 2023-11-25 17:56 | XMS_ITS | Referral Summary ---
Author Organization [facility] Address [address] [place] [address] Care Team Providers Care Nurse Midwife/Clinical Instructor Name Role Phone Elsewhere, Pcp Primary Care Provider Unavailabl e Source Comments Patient records contain information from all sites at [facility]. For routine questions regarding patient records, call [phone] during business hours, M-F 8:00 AM - 5:00 PM Central Time. Record requests for emergency care only can be directed to [phone] at any time.[facility] Encounters Date Type Department Care Team Description 11/22/2023 Clinical Communication Department of Sports Medicine in [place], [place] [address] [place] [address] Ahsan Talbert M.D., Ph.D. Communication 11/21/2023 Orders Only Department of Urology in [place], [place] [address] [place] [phone] Kate Egan P.A.-C. 11/21/2023 Orders Only Department of Urology in [place], [place] [address] [place] [phone] Kate Egan P.A.-C. Retention Urinary (Primary Dx) 11/17/2023 Orders Only Department of Urology in [place], [place] [address] [place] [phone] Kate Egan P.A.-C. 11/15/2023 Orders Only Department of Urology in [place], [place] [address] [place] [address] Kate Egan P.A.-C. 11/14/2023 Orders Only Department of Urology in [place], [place] [address] [place] [phone] Kate Egan P.A.-C. 11/14/2023 Orders Only Department of Orthopedic Surgery in [place], [place] [address] [place] [phone] Candida Lucero P.A.-C. Pain Hip Left (Primary Dx) 11/14/2023 Clinical Communication Department of Sports Medicine in [place], [place] [address] [place] [phone] Ahsan Talbert M.D., Ph.D. Wheelchair order needed urgently 11/07/2023 Clinical Communication Department of Sports Medicine in [address] [phone] Ahsan Talbert M.D., Ph.D. Order Needed Today 11/07/2023 Orders Only Department of Orthopedic Surgery in [place], [place] [address] [place] [phone] Canddia Lucero P.A.-C. Pain Hip Left (Primary Dx) 11/07/2023 1:00 PM CDT Comprehensive Visit Department of Physical Medicine and Rehabilitation in [address] [phone] Mike Salomon Jr., Irish Saunders P.Brandin., D.P.T. Pain Wrist Left (Primary Dx); Pain Wrist Right 11/07/2023 10:00 AM CDT Comprehensive Visit Department of Physical Medicine and Rehabilitation in [place], [place] [address] [place] [phone] Candida Lucero P.A.-C. Marilyn Vergara, P.T., D.P.T., OCS Pain Hip Left [M25.552] (Primary Dx); Pain Hip Right 11/07/2023 7:54 AM CDT - 11/07/2023 8:34 AM CDT Hospital Encounter Department of Orthopedic Surgery in [place], [place] [address] [place] [phone] Kushal Mendieta M.D. Ahsan Talbert M.D., Ph.D. Mobility Limited (Primary Dx); Pain Hip Left; Hypermobility Joint Discharge Disposition: Home or Self Care 10/31/2023 8:45 AM CDT - 10/31/2023 9:07 AM CDT Hospital Encounter Department of Radiology, [facility], in [place], [place] [address] [place] [address] Candida Lucero P.A.-CMackenzie Pain Hip Right Discharge Disposition: Home or Self Care 10/31/2023 9:08 AM CDT - 10/31/2023 11:59 PM CDT Hospital Encounter Department of Radiology, [facility], in [place], [place] [address] [place] [address] Candida Lucero P.A.-CMackenzie Pain Hip Right Discharge Disposition: Home or Self Care 10/31/2023 9:08 AM CDT - 10/31/2023 11:59 PM CDT Hospital Encounter Department of Radiology, [facility], in [place], [place] [address] [place] [address] Candida Lucero P.A.-CMackenzie Pain Hip Right Discharge Disposition: Home or Self Care 10/25/2023 Orders Only Department of Orthopedic Surgery in [place], [place] [address] [place] [phone] Candida Lucero P.A.-CMackenzie Pain Hip Right (Primary Dx) 10/25/2023 Clinical Communication Department of Sports Medicine in [place], [place] [address] [place] [phone] Ahsan Talbert M.D., Ph.D. 10/25/2023 Orders Only Department of Orthopedic Surgery in [place], [place] [address] [place] [phone] Candida Lucero P.A.-CMackenzie Pain Hip Right (Primary Dx) 10/24/2023 Orders Only Department of Orthopedic Surgery in [place], [place] [address] [place] [phone] Ahsan Talbert M.D., Ph.D. 10/24/2023 1:15 PM CDT Telemedicine Department of Sports Medicine in [address] [phone] Ahsan Talbert M.D., Ph.D. Pain Hip Right (Primary Dx) 10/13/2023 Orders Only Department of Orthopedic Surgery in [address] [phone] Mike Salomon Jr., P.A.-C. Pain Wrist Left (Primary Dx) 09/19/2023 Documentation RST RO Aisha Celveland M.S.Fior., L.I.C.S.W. 09/19/2023 11:00 AM CDT Virtual Visit Department of Social Work in [address] [phone] Candida Lucero P.A.-C. Aisha Foster M.S.Emiliana, L.I.C.S.W. Pain Hip Bilateral 09/16/2023 Clinical Communication Department of Sports Medicine in [address] [phone] Ahsan Talbert M.D., Ph.D. 09/15/2023 8:00 AM CDT Telemedicine Department of Sports Medicine in [address] [phone] Ahsan Talbert M.D., Ph.D. Pain Hip Bilateral (Primary Dx) 09/13/2023 3:45 PM CDT Clinical Communication Virtual Review in [address] [phone] Pre-visit Intake 09/01/2023 1:00 PM CDT Telemedicine Department of Urology in [address] [phone] Kate Egan P.A.-C. Retention Urinary (Primary Dx); Dysfunction Pelvic Floor Male 08/31/2023 4:00 PM CDT Procedure visit Department of Sports Medicine in [place], [place] [address] [place] [address] Armin Colvin M.D. Pain Hip Left; Pain Hip Right from Last 3 Months Allergies No known [...] (12/12/2019): Added automatically from request for surgery [id number] Tear Hip Labral Degenerative Right 12/12/2019 Overview (12/12/2019): Added automatically from request for surgery [id number] Klinefelter's Syndrome 07/25/2019 Primary Exertional Headache 04/18/2018 [...] drink = 0.6 oz pur e alcohol) [facility] [employer] Answer Date Recorded In the past 12 months has [employer], gas, oil, or water [employer] threatened to shut off services in your [...] week 2022 How often do you attend [facility] or alevism services? More than 4 times per year [...] Answer Date Recorded PHQ-2 Score 0 07/07/2023 [facility] [...] medical appointments or from getting medications? No 04/1 05/2023 In the past 12 months, has l [...] your living situation today? I have a [facility] place to live 05/22/2023 Education Answer Date Recorded What is the highest level of school you have completed or the highest degree you have received? Some college, no degree 05/24/2020 Sex and Gender Information Value Date Recorded Sex Assigned at Male 10/29/2020 12:38 PM CDT Legal Sex Male 1:45 PM [employer] Gender Identity Male 07/15/2019 8:59 AM CDT Sexual Orientation Straight 07/15/2019 8: 59 AM CDT Last Filed Vital Signs Vital Sign Reading Time Taken Comments Blood Pressure 126/84 05/23/2023 8:08 AM CDT Pulse 91 05/23/2023 8:08 AM CDT Temperature 37.3 ??C (99.1 ??F) 01/20/2022 10:[address] Respiratory Rate 30 02/11/2021 10:10 AM [employer] Oxygen Saturation 99% 02/11/2021 10:15 AM [employer] Inhaled Oxygen Concentration - - Weight 65.8 kg (145 lb) 07/08/2023 9:50 AM CDT Height 185.4 cm (6' 1) 07/08/2023 9:50 AM CDT Body Mass Index 19.13 07/08/2023 9:50 AM CDT Plan of Treatment Upcoming Encounters Date Type Department Care Team (Late st Contact Info) Description 11/29/2023 8:00 AM CDT Appointment Department of Orthopedic Surgery in [place], [place] [address] [place] [address] Ahsan Talbert M.D., Ph.D. [address] [place] [phone] 11/29/2023 10:00 AM CDT Procedure visit Department of Urology in [place], [place] [address] [place] [phone] Kate Egan P.A.-CMackenzie [address] [place] [phone] 01/06/2024 9:15 AM [employer] Office Visit Department of Orthopedic Surgery in [place], [place] [address] [place] [phone] Jose Crawford M.D. [address] [place] [phone] 01/27/2024 4:30 PM [employer] Clinical Communication Virtual Review in [place], [place] [address] [place] [phone] 01/30/2024 3:30 PM [employer] Telemedicine Department of Urology in [address] [phone] Kate Egan P.A.-Kathya [address] [place] [phone] Medical Devices Implanted Type Area Well Logging Captain Device Identifier Shelf Expiration Date Model / Serial / Lot Hardware E.G. Pins/Screws/R ods Hardware e.g. pins/screws/ rods Chest Wall [address] [address] P[place] Hip Mini 2.4x8.9 - [id number] Implanted:Qty : 1 on 02/13/2020 by Zoltan Haines M.D. at [facility] Hardware e.g. pins/screws/ rods Right: Hip Ar[employer]rex [id number] 11/06/2024 AR-2924PH S / / [id number] [address] Pk Hip Mini 2.4x8.9 - [id number] Implanted:Qty : 2 on 02/13/2020 by Zoltan Haines M.D. at [facility] Hardware e.g. pins/screws/ rods Right: Hip Arthrex [id number] 10/07/2024 AR-2924PH S / / [id number] [address] Pk Hip Mini 2.4x8.9 - [id number] Implanted:Qty : 1 on 02/13/2020 by Zoltan Haines M.D. at [facility] Hardware e.g. pins/screws/ rods Right: Hip Arthrex [id number] 07/07/2024 AR-2924PH S / / [id number] Kt Fix Intbrc Hnd Wrst - [id number] Implanted:Qty : 1 on 02/02/2021 by Jose Crawford M.D. at [facility] Hardware e.g. pins/screws/ rods Left: Wrist Arthrex [id number] 09/06/2025 AR-8978-[id number] P / / [id number] Procedures Procedure Name Priority Date/Time Associated Diagnosis [...] 10/31/2023 9:21 AM CDT Pain Hip Right AK ARTHCS ASP/INJ MJR JT W US Routine [...] prior labral repair versus recurrent tear. 2. ??Fzla-dj-pioahman chondromalacia about the right lateral hip. 3. [...] from prior labral repairversus recurrent tear. 2. Mllw-jx-ozovbgov chondromalacia about the right lateral hip. 3. [...] the patient. Procedure Note Emerson Mirza APRN, C.NMackenzieP., M.S.N. - 10/31/2023 EXAM: FL HIP ARTHROGRAM [...] P.A.-C. IMG FLUOROSCOPY PROCE DURES Final Result * CT Hip Right without [...] of the right psoas muscle. us Candida YenAMackenzie-Kathya IMG CT PROCEDURES Scotty steven Result - Final * AK ARTHCS ASP/INJ MJR JT W US (08/31/2023 [...] / ANESTHESIA Anesthesia method: local infiltration Candida YenASay. PROCEDURE/MINOR SURGI NICOLE ORDERABLES Final Result MMODAL NA from Last 3 Months Insurance [facility] Care Teams Nurse Midwife/Clinical Instructor Relationship Specialty Start Date End Date Elsewhere, Pcp PCP - General Internal Medicine 05/22/18
--- OUTSIDE RECORDS SUMMARY | 2023-11-25 17:56 | XMS_ITS | Encounter Summary ---
Author Organization [facility] Address [address] [place] [address] Care Team Providers Care Master Scheduler Name Role Phone Elsewhere, Pcp Primary Care Provider Unavailabl e Reason for Referral * Outpatient (Routine) - Authorized Specialty Diagnoses / Procedures Referred By Ye lund Referred To Contact Diagnoses Retention Urinary Procedures URO Urinary cath removal (UCO) Kate Egan P.A.-CMackenzie [address] [place] [phone] Phone: tel: fax: [facility] Referral ID Status Reason Start Date Expiration Date V isits Requested Visits Authorized [id number] Authorized 11/21/2023 11/20/2024 1 1 Encounter Details Date Type Department Care Team (Late st Contact Info) Description 11/21/2023 Orders Only Department of Urology in [place], [place] [address] [place] [phone] Kate Egan P.A.-CMackenzie [address] [place] [phone] Retention Urinary (Primary Dx) Social History Tobacco Use Types Packs/Day Years Used Date Smoking Tobacco: Never Smokeless Tobacco: Never Alcohol Use Standard Drinks/Week Comments Yes 1 (1 standard drink = 0.6 oz pur e alcohol) [facility] Utilities Answer Date Recorded In the past 12 months has [employer], gas, oil, or water [employer] threatened to shut off services in your [...] week 2022 How often do you attend [facility] or worship services? More than 4 times per year 2022 Do you belong to any clubs o r organizations such as lutheran groups, unions, fraternal or athletic groups, or [...] Answer Date Recorded PHQ-2 Score 0 07/07/2023 [facility] [place] of Occupat ional Health - Occupational Stress [...] your living situation today? I have a [facility] place to live 05/22/2023 Education Answer Date Recorded What is the highest level of school you have completed or the highest degree you have received? Some college, no degree 05/24/2020 Sex and Gender Information Value Date Recorded Sex Assigned at Male 10/29/2020 12:38 PM CDT Legal Sex Male 1:45 PM REAL ESTATE OPERATIONS MANAGER Gender Identity Male 07/15/2019 8:59 AM CDT Sexual Orientation Straight 07/15/2019 8: 59 AM CDT documented as of this encounter Plan of Treatment Upcoming Encounters Date Type Department Care Team (Late st Contact Info) Description 11/29/2023 8:00 AM CDT Appointment Department of Orthopedic Surgery in [address] [phone] Ahsan Talbert M.D., Ph.D. [address] [place] [phone] 11/29/2023 10:00 AM CDT Procedure visit Department of Urology in [place], [place] [address] [place] [phone] Kate Egan P.A.-CMackenzie [address] [place] [phone] 01/06/2024 9:15 AM REAL ESTATE OPERATIONS MANAGER Office Visit Department of Orthopedic Surgery in [place], [place] [address] [place] [phone] Jose Crawford M.D. [address] [place] [phone] 01/27/2024 4:30 PM REAL ESTATE OPERATIONS MANAGER Clinical Communication Virtual Review in [place], [place] 200 [place] [address] 01/30/2024 3:30 PM REAL ESTATE OPERATIONS MANAGER Telemedicine Department of Urology in [address] [phone] Kate Egan P.A.-CMackenzie [address] [place] [phone] Scheduled Orders Name Type Priority Associated Diagnoses Orde r Schedule URO Urinary cath removal (UCO) Procedure Routine Retention Urinary Expected: 11/29/2023, Expires: 02/20/2025 documented as of this encounter Visit Diagnoses Diagnosis Retention Urinary- Primary documented in this encounter Additional Health Concerns Assessment Noted Time PHQ-9 Depression Total Score: 5 07/07/19 24 9:17 PM CDT documented as of this encounter Care Teams Master Scheduler Relationship Specialty Start Date End Date Elsewhere, Pcp PCP - General Internal Medicine 05/22/18 documented as of this encounter
--- OUTSIDE RECORDS SUMMARY | 2023-11-25 17:56 | XMS_ITS | Clinical Summary ---
Author Organization [facility] Address [address] [place] [address] Care Team Providers Care Urban Planning Teacher Name Role Phone Elsewhere, Pcp Primary Care Provider Unavailabl e Source Comments Patient records contain information from all sites at [facility]. For routine questions regarding patient records, call [phone] during business hours, M-F 8:00 AM - 5:00 PM Central Time. Record requests for emergency care only can be directed to [phone] at any time.[facility] Allergies No known active allergies Medications * [...] (12/12/2019): Added automatically from request for surgery [id number] Tear Hip Labral Degenerative Right 12/12/2019 Overview (12/12/2019): Added automatically from request for surgery [id number] Klinefelter's Syndrome 07/25/2019 Primary Exertional Headache 04/18/2018 [...] Clinical Communication Department of Sports Medicine in [place], [place] [address] [place] [phone] Ahsan Talbert M.D., Ph.D. Communication 11/21/2023 Orders Only Department of Urology in [place], [place] [address] [place] [phone] Kate Egan P.A.-C. 11/21/2023 Orders Only Department of Urology in [place], [place] [address] [place] [address] Kate Egan P.A.-C. Retention Urinary (Primary Dx) 11/17/2023 Orders Only Department of Urology in [place], [place] [address] [place] [address] Kate Egan P.A.-C. 11/15/2023 Orders Only Department of Urology in [place], [place] [address] [place] [phone] Kate Egan P.A.-C. 11/14/2023 Orders Only Department of Urology in [place], [place] [address] [place] [phone] Kate Egan P.A.-C. 11/14/2023 Orders Only Department of Orthopedic Surgery in [address] [phone] Candida Lucero P.A.-C. Pain Hip Left (Primary Dx) 11/14/2023 Clinical Communication Department of Sports Medicine in [address] [phone] Ahsan Talbert M.D., Ph.D. Wheelchair order needed urgently 11/07/2023 1:00 PM CDT Comprehensive Visit Department of Physical Medicine and Rehabilitation in [address] [phone] Mike Salomon Jr., Moshe. Irish White P.T., D.P.T. Pain Wrist Left (Primary Dx); Pain Wrist Right 11/07/2023 10:00 AM CDT Comprehensive Visit Department of Physical Medicine and Rehabilitation in [address] [phone] Candida Lucero P.A.-C. Marilyn Vergara, P.T., D.P.T., OCS Pain Hip Left [M25.552] (Primary Dx); Pain Hip Right 11/07/2023 7:54 AM CDT - 11/07/2023 8:34 AM CDT Hospital Encounter Department of Orthopedic Surgery in [address] [phone] Kushal Mendieta M.D. Ahsan Talbert M.D., Ph.D. Mobility Limited (Primary Dx); Pain Hip Left; Hypermobility Joint Discharge Disposition: Home or Self Care 11/07/2023 Clinical Communication Department of Sports Medicine in [address] [phone] Ahsan Talbert M.D., Ph.D. Order Needed Today 11/07/2023 Orders Only Department of Orthopedic Surgery in [address] [phone] Candida Lucero P.A.-C. Pain Hip Left (Primary Dx) 10/31/2023 9:08 AM CDT - 10/31/2023 11:59 PM CDT Hospital Encounter Department of Radiology, [facility] in [address] [phone] Candida Lucero P.A.-C. Pain Hip Right Discharge Disposition: Home or Self Care 10/31/2023 9:08 AM CDT - 10/31/2023 11:59 PM CDT Hospital Encounter Department of Radiology, [facility], in [address] [phone] Candida Lucero P.A.-CMackenzie Pain Hip Right Discharge Disposition: Home or Self Care 10/31/2023 8:45 AM CDT - 10/31/2023 9:07 AM CDT Hospital Encounter Department of Radiology, [facility], in [address] [phone] Candida Lucero P.A.-CMackenzie Pain Hip Right Discharge Disposition: Home or Self Care 10/25/2023 Orders Only Department of Orthopedic Surgery in [address] [phone] Candida Lucero P.A.-CMackenzie Pain Hip Right (Primary Dx) 10/25/2023 Clinical Communication Department of Sports Medicine in [address] [place] [phone] Ahsan Talbert M.D., Ph.D. 10/25/2023 Orders Only Department of Orthopedic Surgery in [place], [place] [address] [place] [phone] Candida Lucero P.A.-C. Pain Hip Right (Primary Dx) 10/24/2023 1:15 PM CDT Telemedicine Department of Sports Medicine in [place], [place] [address] [place] [phone] Ahsan Talbert M.D., Ph.D. Pain Hip Right (Primary Dx) 10/24/2023 Orders Only Department of Orthopedic Surgery in [place], [place] [address] [place] [phone] Ahsan Talbert M.D., Ph.D. 10/13/2023 Orders Only Department of Orthopedic Surgery in [place], [place] [address] [place] [phone] Mike Salomon Jr., P.A.-C. Pain Wrist Left (Primary Dx) 09/19/2023 11:00 AM CDT Virtual Visit Department of Social Work in [place], [place] [address] [place] [phone] Candida Lucero P.A.-C. Aisha Foster M.S.W., L.I.C.S.W. Pain Hip Bilateral 09/19/2023 Documentation [facility] Aisha Foster M.S.W., L.I.C.S.W. 09/16/2023 Clinical Communication Department of Sports Medicine in [place], [place] [address] [place] [phone] Ahsan Talbert M.D., Ph.D. 09/15/2023 8:00 AM CDT Telemedicine Department of Sports Medicine in [place], [place] [address] [place] [phone] Ahsan Talbert M.D., Ph.D. Pain Hip Bilateral (Primary Dx) 09/13/2023 3:45 PM CDT Clinical Communication Virtual Review in [place], [place] 200 [place] [address] Pre-visit Intake 09/01/2023 1:00 PM CDT Telemedicine Department of Urology in [place], [place] [address] [place] [phone] Kate Egan P.A.-C. Retention Urinary (Primary Dx); Dysfunction Pelvic Floor Male 08/31/2023 4:00 PM CDT Procedure visit Department of Sports Medicine in [place], [place] [address] [place] [phone] Armin Colvin M.D. Pain Hip Left; Pain Hip Right from Last 3 Months Family History Medical [...] drink = 0.6 oz pur e alcohol) [facility] [employer] Answer Date Recorded In the past 12 months has [employer], gas, oil, or water [employer] threatened to shut off services in your [...] How often do you attend chur or taoism services? More than 4 times per year [...] 07/07/2023 [facility] of Occupat ional [...] PM CDT Legal Sex Male 1:45 PM ELEVATOR TENDER Gender Identity Male 07/15/2019 8:59 AM CDT Sexual Orientation Straight 07/15/2019 8: 59 AM CDT Last Filed Vital Signs Vital Sign Reading Time Taken Comments Blood Pressure 126/84 05/23/2023 8:08 AM CDT Pulse 91 05/23/2023 8:08 AM CDT Temperature 37.3 ??C (99.1 ??F) 01/20/2022 10:[address] Respiratory Rate 30 02/11/2021 10:10 AM ELEVATOR TENDER Oxygen Saturation 99% 02/11/2021 10:15 AM ELEVATOR TENDER Inhaled Oxygen Concentration - - Weight 65.8 kg (145 lb) 07/08/2023 9:50 AM CDT Height 185.4 cm (6' 1) 07/08/2023 9:50 AM CDT Body Mass Index 19.13 07/08/2023 9:50 AM CDT Plan of Treatment Upcoming Encounters Date Type Department Care Team (Late st Contact Info) Description 11/29/2023 8:00 AM CDT Appointment Department of Orthopedic Surgery in [place], [place] [address] [place] [phone] Ahsan Talbert M.D., Ph.D. [address] [place] [phone] 11/29/2023 10:00 AM CDT Procedure visit Department of Urology in [address] [phone] Kate Egan P.A.-C. [address] [place] [phone] 01/06/2024 9:15 AM ELEVATOR TENDER Office Visit Department of Orthopedic Surgery in [address] [phone] Jose Crawford M.D. [address] [place] [phone] 01/27/2024 4:30 PM ELEVATOR TENDER Clinical Communication Virtual Review in [address] [phone] 01/30/2024 3:30 PM ELEVATOR TENDER Telemedicine Department of Urology in [address] [address] Kate Egan P.A.-C. [address] [place] [phone] Health Maintenance Due Date Last Done Comments [...] history exists Medical Devices Implanted Type Area Life Skills Consultant Device Identifier Shelf Expiration Date Model / Serial / Lot Hardware E.G. Pins/Screws/R ods Hardware e.g. pins/screws/ rods Chest Wall Cocoa [employer] Pk Hip Mini 2.4x8.9 - [id number] Implanted:Qty : 1 on 02/13/2020 by Zoltan Haines M.D. at [facility] Hardware e.g. pins/screws/ rods Right: Hip [employer] [id number] 11/06/2024 AR-2924PH S / / [id number] Cocoa Pl Pk Hip Mini 2.4x8.9 - [id number] Implanted:Qty : 2 on 02/13/2020 by Zoltan Haines M.D. at [facility] Hardware e.g. pins/screws/ rods Right: Hip [employer] [id number] 10/07/2024 AR-2924PH S / / [id number] Cocoa Pl Pk Hip Mini 2.4x8.9 - [id number] Implanted:Qty : 1 on 02/13/2020 by Zoltan Haines M.D. at [facility] Hardware e.g. pins/screws/ rods Right: Hip [employer] [id number] 07/07/2024 AR-2924PH S / / [id number] Kt Fix Intbrc Hnd Wrst - [id number] Implanted:Qty : 1 on 02/02/2021 by Jose Crawford M.D. at [facility] Hardware e.g. pins/screws/ rods Left: Wrist [employer] [id number] 09/06/2025 AR-8978-[id number] P / / [id number] Procedures Procedure Name Priority Date/Time Associated Diagnosis [...] prior labral repair versus recurrent tear. 2. ??Tccd-df-qrdtaiyc chondromalacia about the right lateral hip. 3. [...] from prior labral repairversus recurrent tear. 2. Ezni-vu-tnnykeab chondromalacia about the right lateral hip. 3. [...] us Candida Baltazar P.A.-C. IMG FLUOROSCOPY PROCE MICHELE [...] PROCEDURES Scotty steven Result - Final * CA ARTHCS ASP/INJ MJR JT W US (08/31/2023 4:00 PM CDT) Narrative MMODAL - 08/31/2023 4:00 PM CDT Armin Colvin M.D. ? 09/21/2023 ??6:33 AM Hip site - Bilat hip joint: injection only Performed by: Armin Colvin M.D. Authorized by: Candida Lucero P.A.-C. ?? Care team members present 1. Armin Colvin M.D. 2. Monica Castellanos M.SMackenzie, L.A.T., A.T.C. PROCEDURE DETAILS Procedure Location hip [...] MMODAL NA from Last 3 Months Insurance [facility] [place] [phone] Care Teams Urban Planning Teacher Relationship Specialty Start Date End Date Elsewhere, Pcp PCP - General Internal Medicine 05/22/18
--- OUTSIDE RECORDS SUMMARY | 2023-11-25 17:56 | XMS_ITS | Encounter Summary ---
Author Organization [facility] Address [address] [place] [address] Care Team Providers Care Typing Bookkeeper Name Role Phone Elsewhere, Pcp Primary Care Provider Unavailabl e Encounter Details Date Type Department Care Team (Late st Contact Info) Description 11/17/2023 Orders Only Department of Urology in [place], [place] [address] [place] [phone] Kate Egan P.A.-C. [address] [place] [phone] Social History Tobacco Use Types Packs/Day Years Used Date Smoking Tobacco: Never Smokeless Tobacco: Never Alcohol Use Standard Drinks/Week Comments Yes 1 (1 standard drink = 0.6 oz pur e alcohol) [facility] Utilities Answer Date Recorded In the past 12 months has e electric, gas, oil, or water [employer] threatened to shut off services in your [...] Recorded PHQ-2 Score 0 07/07/2023 [facility] Questionnaire Answer Date [...] your living situation today? I have a [facility] place to live 05/22/2023 Education Answer Date Recorded What is the highest level of school you have completed or the highest degree you have received? Some college, no degree 05/24/2020 Sex and Gender Information Value Date Recorded Sex Assigned at Male 10/29/2020 12:38 PM CDT Legal Sex Male 1:45 PM WEAVER HAND Gender Identity Male 07/15/2019 8:59 AM CDT Sexual Orientation Straight 07/15/2019 8: 59 AM CDT documented as of this encounter Plan of Treatment Upcoming Encounters Date Type Department Care Team (Late st Contact Info) Description 11/29/2023 8:00 AM CDT Appointment Department of Orthopedic Surgery in [place], [place] [address] [place] [address] Ahsan Talbert M.D., Ph.D. 200 [place] [phone] 11/29/2023 10:00 AM CDT Procedure visit Department of Urology in [place], [place] [address] [place] [address] Kate Egan P.A.-C. [address] [place] [phone] 01/06/2024 9:15 AM WEAVER HAND Office Visit Department of Orthopedic Surgery in [place], [place] [address] [place] [phone] Jose Crawford M.D. [address] [place] [phone] 01/27/2024 4:30 PM WEAVER HAND Clinical Communication Virtual Review in [place], [place] 200 [place] [phone] 01/30/2024 3:30 PM WEAVER HAND Telemedicine Department of Urology in [place], [place] [address] [place] [phone] Kate Egan P.A.-Kathya [address] [place] [phone] documented as of this encounter Visit Diagnoses Not on filedocumented in this encounter Additional Health Concerns Assessment Noted Time PHQ-9 Depression Total Score: 5 07/07/19 24 9:17 PM CDT documented as of this encounter Care Teams Typing Bookkeeper Relationship Specialty Start Date End Date Elsewhere, Pcp PCP - General Internal Medicine 05/22/18 documented as of this encounter
--- OUTSIDE RECORDS SUMMARY | 2023-11-25 17:56 | XMS_ITS | Encounter Summary ---
Author Organization [facility] Address [address] [place] [address] Care Team Providers Care Clothing Worker Name Role Phone Elsewhere, Pcp Primary Care Provider Unavailabl e Reason for Visit * Reason Onset Date Comments Communication 11/22/2023 Encounter Details Date Type Department Care Team (Late st Contact Info) Description 11/22/2023 Clinical Communication Department of Sports Medicine in [place], [place] [address] [place] [phone] Ahsan Talbert M.D., Ph.D. [address] [place] [phone] Communication Social History Tobacco Use Types Packs/Day Years Used Date Smoking Tobacco: Never Smokeless Tobacco: Never Alcohol Use Standard Drinks/Week Comments Yes 1 (1 standard drink = 0.6 oz pur e alcohol) [facility] Utilities Answer Date Recorded In the past 12 months has [facility] [employer], gas, oil, or water [employer] threatened to shut off services in [...] Answer Date Recorded PHQ-2 Score 0 07/07/2023 [facility] [place] of Occupat ional Health - Occupational Stress [...] your living situation today? I have a [facility] place to live 05/22/2023 Education Answer Date Recorded What is the highest level of school you have completed or the highest degree you have received? Some college, no degree 05/24/2020 Sex and Gender Information Value Date Recorded Sex Assigned at Male 10/29/2020 12:38 PM CDT Legal Sex Male 1:45 PM BIOLOGICAL TECHNICAL OFFICER Gender Identity Male 07/15/2019 8:59 AM CDT Sexual Orientation Straight 07/15/2019 8: 59 AM CDT documented as of this encounter Plan of Treatment Upcoming Encounters Date Type Department Care Team (Late st Contact Info) Description 11/29/2023 8:00 AM CDT Appointment Department of Orthopedic Surgery in [place], [place] 200 [place] [address] Ahsan Talbert M.D., Ph.D. [address] [place] [phone] 11/29/2023 10:00 AM CDT Procedure visit Department of Urology in [place], [place] [address] [place] [phone] Kate Egan P.A.-C. [address] [place] [phone] 01/06/2024 9:15 AM BIOLOGICAL TECHNICAL OFFICER Office Visit Department of Orthopedic Surgery in [place], [place] [address] [place] [phone] Jose Crawford M.D. [address] [place] [phone] 01/27/2024 4:30 PM BIOLOGICAL TECHNICAL OFFICER Clinical Communication Virtual Review in [place], [place] 200 [place] [phone] 01/30/2024 3:30 PM BIOLOGICAL TECHNICAL OFFICER Telemedicine Department of Urology in [place], [place] [address] [place] [phone] Kate Egan P.A.-CMackenzie [address] [place] [phone] documented as of this encounter Visit Diagnoses Not on filedocumented in this encounter Additional Health Concerns Assessment Noted Time PHQ-9 Depression Total Score: 5 07/07/19 24 9:17 PM CDT documented as of this encounter Care Teams Clothing Worker Relationship Specialty Start Date End Date Elsewhere, Pcp PCP - General Internal Medicine 05/22/18 documented as of this encounter
--- OUTSIDE RECORDS SUMMARY | 2023-11-25 17:56 | XMS_ITS | Clinical Summary ---
Author Organization [employer] [facility] Address [place], [place] [address] Care Team Providers Care Bumper Machine Operator Name Role Phone Eliana Guerra MD Primary Care Provider [facility] Care, [place] Unavailable [phone] Allergies No known active allergies Medications Medication [...] Encounters Date Type Department Care Team Description 11/25/2023 10:15 AM CDT Home Care Visit [facility] [address] [place] [phone] Irais Laboy, RN SN - HOME VISIT 11/25/2023 9:15 AM CDT Home Care Visit [facility] [address] [place] [phone] Deepa Loza EQUIPMENT PLANNER - HOME VISIT 11/25/2023 Telephone [facility] [place], [place] [phone] Irais Laboy, energy conservation representative (Update of Patient) 11/25/2023 Orders Only [facility] [address] [place] [address] Larry Green, DPM 2 scans: (2-Ord) [facility], MR ANKLE RT WO CON, 11/23/2023 11/25/2023 Home Care Visit [facility] [address] [place] [phone] Re[place], PUBLIC SAFETY DISPATCHER CARE COORDINATION 11/22/2023 10:30 AM CDT Home Care Visit [facility] [address] [place] [phone] Sole Sommer, PT PT - HOME VISIT 11/22/2023 9:00 AM CDT Home Care Visit [facility] [address] [place] [phone] Bella Garcia COTA OT - HOME VISIT 11/22/2023 Telephone [facility] [address] [place] [address] Eliana Guerra MD 11/22/2023 Home Care Visit [facility] [address] [place] [phone] Sole Sommer, PT CARE COORDINATION 11/21/2023 9:15 AM CDT Home Care Visit [facility] [address] [place] [phone] Deepa Loza EQUIPMENT PLANNER - HOME VISIT 11/21/2023 Orders Only [facility] [address] [place] [address] Eliana Guerra MD <No scans attached> 11/18/2023 2:00 PM CDT Home Care Visit [facility] [address] [place] [address], [place] [phone] Irais Laboy, KASIE SN - HOME VISIT 11/18/2023 1:15 PM CDT Home Care Visit [facility] [address] [place] [address], [place] [phone] Concepcion Varner RN Student EQUIPMENT PLANNER - HOME VISIT 11/18/2023 10:30 AM CDT Home Care Visit [facility] [address] [place] [address], [place] [phone] Melissa Rowley, PT PT - HOME VISIT 11/18/2023 Telephone [facility] [address] [place] [address] Irais Laboy, energy conservation representative ( HOME CARE-BOWEL REGIMEN) 11/16/2023 12:00 PM CDT Home Care Visit [facility] [address] [place] [phone] Konrad Jean OT OT - INITIAL ASSESSMENT 11/16/2023 Home Care Visit [facility] [address] [place] [phone] Re[place], PUBLIC SAFETY DISPATCHER CARE COORDINATION 11/15/2023 1:00 PM CDT Office Visit [facility] [address] [place] [address] Larry Green, DPM Follow Up (Bilateral peroneal tendonitis, New orthtoics) 11/15/2023 Travel 11/14/2023 9:15 AM CDT Home Care Visit [facility] [address] [place] [address] Deepa Loza EQUIPMENT PLANNER - HOME VISIT 11/14/2023 Home Care Visit [facility] [address] [place] [address] Megan Arevalo, [facility] MOP MAN - CASE COMMUNICATION 11/11/2023 Home Care Visit [facility] [address] [place] [address] Melissa Rowley, PT CARE COORDINATION 11/11/[address] [address] Eliana Guerra MD Outside Order (Order for wheelchair) 11/10/2023 8:00 AM CDT Home Care Visit [facility] [address] [place] [phone] Ines Daigle EQUIPMENT PLANNER - HOME VISIT 11/10/2023 Home Care Visit [facility] [address] [place] [phone] [facility] 11/09/2023 2:00 PM CDT Home Care Visit [facility] [address] [place] [phone] Deborah Hager RN SN - INITIAL ASSESSMENT 11/09/2023 Home Care Visit [facility] [address] [place] [phone] Sole Sommer, PT CARE COORDINATION 11/09/2023 Telephone [facility] [address] [place] [address] Sole Sommer, PT Home Care (Medication Changes) 11/08/2023 11:00 AM CDT Home Care Visit [facility] [address] [place] [phone] Sole Sommer, PT PT - OASIS START OF CARE 11/08/2023 Plan of Care Documentation [facility] [address] [place] [address] 11/08/2023 Home Care Visit [facility] [address] [place] [phone] Manuela Morton, RN CARE COORDINATION 11/08/2023 Telephone [facility] [address] [place] [address] Sole Sommer, PT Home Care (Garza Order) 11/08/2023 Telephone [facility] [address] [place] [address] Sole Sommer, PT Home Care (SN Orders) 11/08/2023 Telephone [facility] [address] [place] [address] Eliana Guerra MD ACC Order Request (verbal orders) 11/06/2023 Refill [facility] [address] [place] [address] Eliana Guerra MD Refill Request (Hydroxyzine Hcl) 11/02/2023 1:35 PM CDT Office Visit [facility] [address] [place] [address] Eliana Guerra MD Physical (23 year old) 11/02/2023 Travel 10/31/2023 1:30 PM CDT Telemedicine [address] [phone] Una Apodaca PsyD, [facility] Mental Health Intake 10/31/2023 Travel 10/27/2023 8:30 AM CDT Office Visit [facility] [address] [place] [address] Tuan Jin [facility] Visit 10/27/2023 Travel 10/18/2023 10:30 AM CDT Office Visit [facility] [address] [place] [address] Tuan Jin, [facility] Visit 10/18/2023 Travel 09/29/2023 2:25 PM CDT Office Visit [facility] [address] [place], [place] [phone] Eliana Guerra MD Medication Management 09/29/2023 Travel [...] Sign Reading Time Taken Comments Blood Pressure 148/62 11/25/2023 10:50 AM CDT Pulse 98 11/25/2023 10:50 AM CDT Temperature 37.4 ??C (99.4 ??F) 11/25/2023 1 0:50 AM CDT Respiratory Rate 18 11/25/2023 10:5 0 AM CDT Oxygen Saturation 98% 11/25/2023 10: 50 AM CDT Inhaled Oxygen Concentration - - [...] Care Team (Late st Contact Info) Description 11/28/2023 3:00 AM CDT Home Care Visit [facility] [address] [place] [address] Sole Sommer, PT [address] [place] [address] 11/28/2023 9:15 AM CDT Home Care Visit [facility] [address] [place] [phone] Deepa Loza [address] [place] [address] 11/30/2023 3:00 AM CDT Home Care Visit [facility] [address] [place] [phone] Sole Sommer, PT [address] [place] [address] 11/30/2023 4:00 AM CDT Home Care Visit [facility] [address] [place] [phone] Bella Garcia WEST [address] [place] [address] 11/30/2023 9:30 AM CDT Office Visit [address] [phone] Una Apodaca, PsLuis, [address] [address] 12/01/2023 4:00 AM CDT Home Care Visit [facility] [address] [place] [phone] Irais Laboy, RN 12/02/2023 4:00 AM CDT Home Care Visit [facility] [address] [place] [phone] Bella Garcia WEST [facility] [place] [address] 12/02/2023 9:15 AM CDT Home Care Visit [address] [phone] Deepa Loza [address] [address] 12/05/2023 9:30 AM CDT Office Visit [address] [phone] Una Apodaca, PsyD, LP [address] [place] [address] 12/06/2023 3:00 AM CDT Home Care Visit [address] [phone] Sole Sommer, PT [address], [place] [address] 12/07/2023 4:00 AM CDT Home Care Visit [address] [phone] Bella Garcia COTA [address] [place] [address] 12/08/2023 3:00 AM CDT Home Care Visit [address] [phone] Sole Sommer, PT [address], [place] [address] 12/08/2023 4:00 AM CDT Home Care Visit [address] [phone] Irais Laboy RN 12/09/2023 4:30 AM CDT Home Care Visit [address] [phone] Konrad Jean, OT [address] [place] [address] 12/19/2023 9:30 AM [employer] LEADER Office Visit [facility] 100 [facility] [place] [phone] Una Apodaca, PsyD, LP 100 [place] [address] Health Maintenance Due Date Last Done Comments COVID-19 vaccine series (2023- season) 2023 11/02/2023, 04/16/2022, 02/18/2021, Additional history [...] Name Priority Date/Time Associated Diagnosis Comments MR ANKLE RIGHT WO Routine 11/23/2023 12: 00 AM CDT Peroneal tendinitis, right 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 EXPOSURE (BBF) RAPID HIV Routine 08/18/2020 8:10 AM CDT Employee exposure to blood EXPOSURE (BBF) ANTI HCV Routine 08/18/2020 8:10 AM CDT Employee exposure to blood from Last 3 Months or Most Recently Relevant to Health Maintenance Results * MR ANKLE RIGHT WO (11/23/2023 12:00 AM CDT) Anatomical Region Laterality Modality ANKLE R Magnetic Resonan ce Larry Jerrica Green DPM MR * EXPOSURE (BBF) RAPID HIV (08/18/2020 8:10 AM CDT) SOURCE RAPID HIV SCREEN Non-Reacti ve Non-Reacti ve 08/18/2020 2:42 PM CDT [facility] Blood BLOOD SPECIMEN / Unknown Venipuncture / Unknown 08/18/2020 8:10 AM CDT 08/18/2020 8:11 AM CDT Eliana Guerra MD SEND OUTS [facility] [address] [place] [address], * EXPOSURE (BBF) ANTI HCV (08/18/2020 8:10 AM CDT) HEPATITIS C ANTIBODY Non-React alex Non-React alex 08/18/2020 2:57 PM CDT [facility] Comment:Antibodies to HCV no t detected; does not exclude the possibility of exposure to HCV. Blood BLOOD SPECIMEN / Unknown Venipuncture / Unknown 08/18/2020 8:10 AM CDT 08/18/2020 8:11 AM CDT Eliana Guerra MD SEND OUTS [facility] [address] [place] [address], [place] from Last 3 Months or Most Recently Relevant to Health Maintenance Care Teams Bumper Machine Operator Relationship Specialty Start Date End Date Eliana Guerra MD [address] [place] [address] PCP - General Family Practice 10/20/17 [facility] [address] [address] 11/07/23
--- OUTSIDE RECORDS SUMMARY | 2023-11-25 17:56 | XMS_ITS | Encounter Summary ---
Author Organization [facility] Address [address] [place] [address] Care Team Providers Care Construction Carpenters Helper Name Role Phone Elsewhere, Pcp Primary Care Provider Unavailabl e Reason for Referral * Outpatient (Routine) - Authorized Specialty Diagnoses / Procedures Referred By Ye lund Referred To Contact Urology Kate Egan P.A.-C. [address] [place] [phone] Phone: tel: fax: Kate Egan P.A.-CMackenzie [address] [place] [phone] Phone: tel: fax: Referral ID Status Reason Start Date Expiration Date V isits Requested Visits Authorized [id number] Authorized 11/21/2023 05/22/2025 1 1 Scheduling Instructions First available - no need to override. Thanks! Encounter Details Date Type Department Care Team (Late st Contact Info) Description 11/21/2023 Orders Only Department of Urology in [place], [place] [address] [place] [phone] Kate Egan P.A.-C. [address] [place] [phone] Social History Tobacco Use Types Packs/Day Years Used Date Smoking Tobacco: Never Smokeless Tobacco: Never Alcohol Use Standard Drinks/Week Comments Yes 1 (1 standard drink = 0.6 oz pur e alcohol) [facility] Utilities Answer Date Recorded In the [...] often do you attend chur ch or moravian services? More than 4 times per year 2022 Do you belong to any clubs o r organizations such as baptism groups, unions, fraternal or athletic groups, or [...] PM CDT Legal Sex Male 1:45 PM AUGER MACHINE OFFBEARER Gender Identity Male 07/15/2019 8:59 AM CDT Sexual Orientation Straight 07/15/2019 8: 59 AM CDT documented as of this encounter Plan of Treatment Upcoming Encounters Date Type Department Care Team (Late st Contact Info) Description 11/29/2023 8:00 AM CDT Appointment Department of Orthopedic Surgery in [address] [phone] Ahsan Talbert M.D., Ph.D. [address] [place] [phone] 11/29/2023 10:00 AM CDT Procedure visit Department of Urology in [address] [phone] Kate Egan P.A.-CMackenzie [address] [place] [phone] 01/06/2024 9:15 AM AUGER MACHINE OFFBEARER Office Visit Department of Orthopedic Surgery in [address] [phone] Jose Crawford M.D. [address] [place] [phone] 01/27/2024 4:30 PM AUGER MACHINE OFFBEARER Clinical Communication Virtual Review in [address] [phone] 01/30/2024 3:30 PM AUGER MACHINE OFFBEARER Telemedicine Department of Urology in [address] [address] Kate Egan P.A.-CMackenzie [address] [place] [phone] Scheduled Referrals Name Type Priority Associated Diagnoses Orde r Schedule Urology office visit (clinic) Outpatient Referral Routine Expected: 11/21/2023, Expires: 02/20/2025 documented as of this encounter Visit Diagnoses Not on filedocumented in this encounter Additional Health Concerns Assessment Noted Time PHQ-9 Depression Total Score: 5 07/07/19 24 9:17 PM CDT documented as of this encounter Care Teams Construction Carpenters Helper Relationship Specialty Start Date End Date Elsewhere, Pcp PCP - General Internal Medicine 05/22/18 documented as of this encounter
--- OUTSIDE RECORDS SUMMARY | 2023-11-25 17:57 | XMS_ITS | Encounter Summary ---
Author Organization [facility] Address [address] [place] [address] Care Team Providers Care Journeyman Meat Cutter Name Role Phone Elsewhere, Pcp Primary Care Provider Unavailabl e Reason for Visit * Physical Therapy (Routine) - Closed Specialty Diagnoses / Procedures Referred By Ye lund Referred To Contact Diagnoses Pain Hip Right Procedures PT Evaluate and treat Candida Lucero P.A.-C. [address] [place] [phone] Phone: tel: fax: [facility] Referral ID Status Reason Start Date Expiration Date Visits Re quested Visits Authorized [id number] Closed 10/25/2023 10/24/2024 1 1 Encounter Details Date Type Department Care Team (Latest Contact Info) Description 11/07/2023 10:00 AM CDT Comprehensive Visit Department of Physical Medicine and Rehabilitation in [place], [place] [address] [place] [phone] Candida Lucero P.A.-CMackenzie [address] [place] [phone] Marilyn Vergara PSyed., D.P.T., OCS [address] [place] [phone] Pain Hip Left [M25.552] (Primary Dx); Pain Hip Right Social History Tobacco Use Types Packs/Day Years Used Date Smoking Tobacco: Never Smokeless Tobacco: Never Alcohol Use Standard Drinks/Week Comments Yes 1 (1 standard drink = 0.6 oz pur e alcohol) [facility] Utilities Answer Date Recorded In the past 12 months has th e [employer], [employer], oil, or water [employer] threatened to shut off services in your [...] How often do you attend chur or roman catholic services? More than 4 [...] Answer Date Recorded PHQ-2 Score 0 07/07/2023 [facility] [place] of Occupat ional Health - Occupational Stress [...] PM CDT Legal Sex Male 1:45 PM SALVAGE DIVER Gender Identity Male 07/15/2019 8:59 AM CDT Sexual Orientation Straight 07/15/2019 8: 59 AM CDT documented as of this encounter Consult Notes * Marilyn Vergara P.T., LeighannP.T., [facility] - 11/07/2023 10:00 AM CDT [...] Right Reason for Referral: Gait Training Payor: [employer] MA CARE / Plan: [employer] HMO / Product Type: Medicaid HMO / [facility] Visit Count: 1 PT Next Certification [...] BAR.; Surgeon: Eyad Burns M.D., Ph.D.; Location: [facility] ROMB OR REPAIR ARTHROSCOPY LABRAL [...] to consider a GUILLERMO up in the [facility] for this. He reports he usually [...] of casting. Prior Function/Occupational Profile: Level of [place]: independent (limited to standing <10 minutes due to pain). 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 Type of home: [...] use of belt to assist as leg parts professional - verbal education for car transfers - floor transfers for safe recovery if he were to fall - wheelchair propulsion with right leg and bilateral arm use. Recommendation to look into adult tall walker due to his height. Recommendation to find wheelchair with elevating leg rest for left side Recommendation for computer forensic examiner/grabber to assist with grabbing things from the floor. HEP (for right leg): Access Code: [email or web address] URL: [email or web address]/ Date: 11/07/2023 Prepared by: Marilyn Exercises - [...] following patient education materials were provided today: Shoutlet: Paper copy provided to patient Assessment Clinical [...] CDT Appointment Department of Orthopedic Surgery in [address] [phone] Ahsan Talbert M.D., Ph.D. [address] [place] [phone] 11/29/2023 10:00 AM CDT Procedure visit Department of Urology in [address] [phone] Kate Egan P.A.-C. [address] [place] [phone] 01/06/2024 9:15 AM SALVAGE DIVER Office Visit Department of Orthopedic Surgery in [address] [phone] Jose Crawford M.D. [address] [place] [phone] 01/27/2024 4:30 PM SALVAGE DIVER Clinical Communication Virtual Review in [place], [place] 200 [place] [phone] 01/30/2024 3:30 PM SALVAGE DIVER Telemedicine Department of Urology in [place], [place] [address] [place] [phone] Kate Egan P.A.-C. [address] [place] [phone] documented as of this encounter Visit Diagnoses Diagnosis Pain Hip Left [M25.552]- Primary Pain Hip Right documented in this encounter Additional Health Concerns Assessment Noted Time PHQ-9 Depression Total Score: 5 07/07/19 24 9:17 PM CDT documented as of this encounter Care Teams Journeyman Meat Cutter Relationship Specialty Start Date End Date Elsewhere, Pcp PCP - General Internal Medicine 05/22/18 documented as of this encounter
--- OUTSIDE RECORDS SUMMARY | 2023-11-25 17:57 | XMS_ITS | Encounter Summary ---
Author Organization [facility] Address [address] [place] [address] Care Team Providers Care Phone Technician Name Role Phone Elsewhere, Pcp Primary Care Provider Unavailabl e Reason for Referral * MRI/CAT/PET Scan (Routine) - Closed Specialty Diagnoses / Procedures Referred By Ye lund Referred To Contact Radiology Diagnoses Pain Hip Right Procedures CT Hip Right without IV Contrast Candida Lucero P.A.-Kathya [address] [place] [phone] Phone: tel: fax: [facility] Referral ID Status Reason Start Date Expiration Date Visits Re quested Visits Authorized [id number] Closed 10/25/2023 10/24/2024 1 1 Reason for Visit * MRI/CAT/PET Scan (Routine) - Closed Specialty Diagnoses / Procedures Referred By Ye lund Referred To Contact Radiology Diagnoses Pain Hip Right Procedures CT Hip Right without IV Contrast Candida Lucero P.A.-CMackenzie [address] [place] [phone] Phone: tel: fax: [facility] Referral ID Status Reason Start Date Expiration Date Visits Re quested Visits Authorized [id number] Closed 10/25/2023 10/24/2024 1 1 Encounter Details Date Type Department Care Team (Latest Contact Info) Description 10/31/2023 8:45 AM CDT - 10/31/2023 9:07 AM CDT Hospital Encounter Department of Radiology, [facility], in [place], [place] [address] [place] [address] Candida Lucero P.A.-C. [address] [place] [address] Pain Hip Right Discharge Disposition: Home or Self Care Social History Tobacco Use Types Packs/Day Years Used Date Smoking Tobacco: Never Smokeless Tobacco: Never Alcohol Use Standard Drinks/Week Comments Yes 1 (1 standard drink = 0.6 oz pur e alcohol) [facility] Utilities Answer Date Recorded In the [...] often do you attend chur ch or mormonism services? More than 4 times per year 2022 Do you belong to any clubs o r organizations such as jewish groups, unions, fraternal or athletic groups, or [...] PM CDT Legal Sex Male 1:45 PM KENNEL MANAGER Gender Identity Male 07/15/2019 8:59 AM [...] CDT Appointment Department of Orthopedic Surgery in [place], [place] [address] [place] [phone] Ahsan Talbert M.D., Ph.D. [address] [place] [phone] 11/29/2023 10:00 AM CDT Procedure visit Department of Urology in [place], [place] [address] [place] [phone] Kate Egan P.A.-C. [address] [place] [phone] 01/06/2024 9:15 AM KENNEL MANAGER Office Visit Department of Orthopedic Surgery in [place], [place] [address] [place] [phone] Jose Crawford M.D. [address] [place] [phone] 01/27/2024 4:30 PM KENNEL MANAGER Clinical Communication Virtual Review in [place], [place] 200 [place] [phone] 01/30/2024 3:30 PM KENNEL MANAGER Telemedicine Department of Urology in [place], [place] [address] [place] [phone] Kate Egan P.A.-C. [address] [place] [phone] documented as of this encounter Procedures Procedure [...] documented as of this encounter Care Teams Phone Technician Relationship Specialty Start Date End Date Elsewhere, Pcp PCP - General Internal Medicine 05/22/18 documented as of this encounter
--- OUTSIDE RECORDS SUMMARY | 2023-11-25 17:57 | XMS_ITS | Encounter Summary ---
Author Organization [facility] Address [address] [place] [address] Care Team Providers Care Director Software Name Role Phone Elsewhere, Pcp Primary Care Provider Unavailabl e Encounter Details Date Type Department Care Team (Late st Contact Info) Description 11/14/2023 Orders Only Department of Orthopedic Surgery in [place], [place] [address] [place] [phone] Candida Lucero P.A.-C. [address] [place] [phone] Pain Hip Left (Primary Dx) Social History Tobacco Use Types Packs/Day Years Used Date Smoking Tobacco: Never Smokeless Tobacco: Never Alcohol Use Standard Drinks/Week Comments Yes 1 (1 standard drink = 0.6 oz pur e alcohol) [facility] Utilities Answer Date Recorded In the past 12 months has [facility] electric, gas, oil, or water [employer] threatened to shut off services in your [...] any clubs o r organizations such as shinto groups, unions, fraternal or athletic groups, or [...] Recorded PHQ-2 Score 0 07/07/2023 [facility] of Occupat ional Health - [...] PM CDT Legal Sex Male 1:45 PM AUTOMATIC PACKER OPERATOR Gender Identity Male 07/15/2019 8:59 AM CDT Sexual Orientation Straight 07/15/2019 8: 59 AM CDT documented as of this encounter Plan of Treatment Upcoming Encounters Date Type Department Care Team (Late st Contact Info) Description 11/29/2023 8:00 AM CDT Appointment Department of Orthopedic Surgery in [place], [place] [address] [place] [address] Ahsan Talbert M.D., Ph.D. 200 [place] [phone] 11/29/2023 10:00 AM CDT Procedure visit Department of Urology in [place], [place] [address] [place] [address] Kate Egan P.A.-C. [address] [place] [phone] 01/06/2024 9:15 AM AUTOMATIC PACKER OPERATOR Office Visit Department of Orthopedic Surgery in [place], [place] [address] [place] [phone] Jose Crawford M.D. [address] [place] [phone] 01/27/2024 4:30 PM AUTOMATIC PACKER OPERATOR Clinical Communication Virtual Review in [place], [place] 200 [place] [phone] 01/30/2024 3:30 PM AUTOMATIC PACKER OPERATOR Telemedicine Department of Urology in [place], [place] [address] [place] [phone] Kate Egan P.A.-C. [address] [place] [phone] documented as of this encounter Visit Diagnoses Diagnosis Pain Hip Left- Primary documented in this encounter Additional Health Concerns Assessment Noted Time PHQ-9 Depression Total Score: 5 07/07/19 24 9:17 PM CDT documented as of this encounter Care Teams Director Software Relationship Specialty Start Date End Date Elsewhere, Pcp PCP - General Internal Medicine 05/22/18 documented as of this encounter
--- OUTSIDE RECORDS SUMMARY | 2023-11-25 17:57 | XMS_ITS | Encounter Summary ---
Author Organization [facility] Address [address] [place] [address] Care Team Providers Care Environmental Aide Name Role Phone Elsewhere, Pcp Primary Care Provider Unavailabl e Encounter Details Date Type Department Care Team (Late st Contact Info) Description 11/14/2023 Orders Only Department of Urology in [place], [place] [address] [place] [phone] Kate Egan P.A.-C. [address] [place] [phone] Social History Tobacco Use Types Packs/Day Years Used Date Smoking Tobacco: Never Smokeless Tobacco: Never Alcohol Use Standard Drinks/Week Comments Yes 1 (1 standard drink = 0.6 oz pur e alcohol) [facility] Utilities Answer Date Recorded In the past 12 months has e electric, gas, oil, or water [employer] threatened to shut off services in your [...] often do you attend chur ch or religion services? More than 4 times per year 2022 Do you belong to any clubs o r organizations such as taoist groups, unions, fraternal or athletic groups, or [...] Answer Date Recorded PHQ-2 Score 0 07/07/2023 [facility] [...] your living situation today? I have a [facility] place to live 05/22/2023 Education Answer Date Recorded What is the highest level of school you have completed or the highest degree you have received? Some college, no degree 05/24/2020 Sex and Gender Information Value Date Recorded Sex Assigned at Male 10/29/2020 12:38 PM CDT Legal Sex Male 1:45 PM SMOKE ROOM OPERATOR Gender Identity Male 07/15/2019 8:59 AM CDT Sexual Orientation Straight 07/15/2019 8: 59 AM CDT documented as of this encounter Plan of Treatment Upcoming Encounters Date Type Department Care Team (Late st Contact Info) Description 11/29/2023 8:00 AM CDT Appointment Department of Orthopedic Surgery in [place], [place] [address] [place] [address] Ahsan Talbert M.D., Ph.D. 200 [place] [phone] 11/29/2023 10:00 AM CDT Procedure visit Department of Urology in [place], [place] [address] [place] [address] Kate Egan P.A.-C. [address] [place] [phone] 01/06/2024 9:15 AM SMOKE ROOM OPERATOR Office Visit Department of Orthopedic Surgery in [place], [place] [address] [place] [phone] Jose Crawford M.D. [address] [place] [phone] 01/27/2024 4:30 PM SMOKE ROOM OPERATOR Clinical Communication Virtual Review in [place], [place] 200 [place] [phone] 01/30/2024 3:30 PM SMOKE ROOM OPERATOR Telemedicine Department of Urology in [place], [place] [address] [place] [phone] Kate Egan P.A.-Kathya [address] [place] [phone] documented as of this encounter Visit Diagnoses Not on filedocumented in this encounter Additional Health Concerns Assessment Noted Time PHQ-9 Depression Total Score: 5 07/07/19 24 9:17 PM CDT documented as of this encounter Care Teams Environmental Aide Relationship Specialty Start Date End Date Elsewhere, Pcp PCP - General Internal Medicine 05/22/18 documented as of this encounter
--- OUTSIDE RECORDS SUMMARY | 2023-11-25 17:57 | XMS_ITS | Encounter Summary ---
Author Organization [facility] Address [address] [place] [address] Care Team Providers Care Cloth Stock Sorter Name Role Phone Elsewhere, Pcp Primary Care Provider Unavailabl e Encounter Details Date Type Department Care Team (Late st Contact Info) Description 11/07/2023 Orders Only Department of Orthopedic Surgery in [place], [place] [address] [place] [phone] Candida Lucero P.A.-C. [address] [place] [phone] Pain Hip Left (Primary Dx) Social History Tobacco Use Types Packs/Day Years Used Date Smoking Tobacco: Never Smokeless Tobacco: Never Alcohol Use Standard Drinks/Week Comments Yes 1 (1 standard drink = 0.6 oz pur e alcohol) [facility] Utilities Answer Date Recorded In the past 12 months has [facility] electric, gas, oil, or water [employer] threatened to shut off services in your [...] Answer Date Recorded PHQ-2 Score 0 07/07/2023 [facility] of Occupat ional Health - [...] your living situation today? I have a [facility] place to live 05/22/2023 Education Answer Date Recorded What is the highest level of school you have completed or the highest degree you have received? Some college, no degree 05/24/2020 Sex and Gender Information Value Date Recorded Sex Assigned at Male 10/29/2020 12:38 PM CDT Legal Sex Male 1:45 PM HAND DRY CLEANER Gender Identity Male 07/15/2019 8:59 AM CDT Sexual Orientation Straight 07/15/2019 8: 59 AM CDT documented as of this encounter Plan of Treatment Upcoming Encounters Date Type Department Care Team (Late st Contact Info) Description 11/29/2023 8:00 AM CDT Appointment Department of Orthopedic Surgery in [place], [place] [address] [place] [address] Ahsan Talbert M.D., Ph.D. 200 [place] [phone] 11/29/2023 10:00 AM CDT Procedure visit Department of Urology in [place], [place] [address] [place] [address] Kate Egan P.A.-C. [address] [place] [phone] 01/06/2024 9:15 AM HAND DRY CLEANER Office Visit Department of Orthopedic Surgery in [place], [place] [address] [place] [phone] Jose Crawford M.D. [address] [place] [phone] 01/27/2024 4:30 PM HAND DRY CLEANER Clinical Communication Virtual Review in [place], [place] 200 [place] [address] 01/30/2024 3:30 PM HAND DRY CLEANER Telemedicine Department of Urology in [place], [place] [address] [place] [phone] Kate Egan P.A.-C. [address] [place] [phone] documented as of this encounter Visit Diagnoses Diagnosis Pain Hip Left- Primary documented in this encounter Additional Health Concerns Assessment Noted Time PHQ-9 Depression Total Score: 5 07/07/19 24 9:17 PM CDT documented as of this encounter Care Teams Cloth Stock Sorter Relationship Specialty Start Date End Date Elsewhere, Pcp PCP - General Internal Medicine 05/22/18 documented as of this encounter
--- OUTSIDE RECORDS SUMMARY | 2023-11-25 17:57 | XMS_ITS | Encounter Summary ---
Author Organization [facility] Address [address] [place] [address] Care Team Providers Care Tractor Engine Mechanic Name Role Phone Elsewhere, Pcp Primary Care Provider Unavailabl e Reason for Referral * MRI/CAT/PET Scan (Routine) - Closed Specialty Diagnoses / Procedures Referred By Ye lund Referred To Contact Radiology Diagnoses Pain Hip Right Procedures MR Hip Arthrogram Right Candida Lucreo P.A.-Kathya [address] [place] [phone] Phone: tel: fax: [facility] Referral ID Status Reason Start Date Expiration Date Visits Re quested Visits Authorized [id number] Closed 10/24/2023 10/23/2024 1 1 Reason for Visit * MRI/CAT/PET Scan (Routine) - Closed Specialty Diagnoses / Procedures Referred By Ye lund Referred To Contact Radiology Diagnoses Pain Hip Right Procedures MR Hip Arthrogram Right Candida Lucero P.AMackenzie-CMackenzie [address] [place] [phone] Phone: tel: fax: [facility] Referral ID Status Reason Start Date Expiration Date Visits Re quested Visits Authorized [id number] Closed 10/24/2023 10/23/2024 1 1 Encounter Details Date Type Department Care Team (Latest Contact Info) Description 10/31/2023 9:08 AM CDT - 10/31/2023 11:59 PM CDT Hospital Encounter Department of Radiology, [facility], in [place], [place] [address] [place] [address] Candida Lucero P.A.-C. [address] [place] [address] Pain Hip Right Discharge Disposition: Home or Self Care Social History Tobacco Use Types Packs/Day Years Used Date Smoking Tobacco: Never Smokeless Tobacco: Never Alcohol Use Standard Drinks/Week Comments Yes 1 (1 standard drink = 0.6 oz pur e alcohol) [facility] Utilities Answer Date Recorded In the past [...] any clubs o r organizations such as nondenominational groups, unions, fraternal or athletic groups, or [...] Answer Date Recorded PHQ-2 Score 0 07/07/2023 [facility] of Occupat ional Health - [...] PM CDT Legal Sex Male 1:45 PM MERRY GO ROUND OPERATOR Gender Identity Male 07/15/2019 8:59 AM [...] CDT Appointment Department of Orthopedic Surgery in [place], [place] [address] [place] [phone] Ahsan Talbert M.D., Ph.D. [address] [place] [phone] 11/29/2023 10:00 AM CDT Procedure visit Department of Urology in [place], [place] [address] [place] [phone] Kate Egan P.A.-C. [address] [place] [phone] 01/06/2024 9:15 AM MERRY GO ROUND OPERATOR Office Visit Department of Orthopedic Surgery in [place], [place] [address] [place] [phone] Jose Crawford M.D. [address] [place] [phone] 01/27/2024 4:30 PM MERRY GO ROUND OPERATOR Clinical Communication Virtual Review in [place], [place] 200 [place] [phone] 01/30/2024 3:30 PM MERRY GO ROUND OPERATOR Telemedicine Department of Urology in [place], [place] [address] [place] [phone] Kate Egan P.A.-C. [address] [place] [phone] documented as of this encounter Procedures Procedure [...] prior labral repair versus recurrent tear. 2. ??Gecq-fq-udkkxdyi chondromalacia about the right lateral hip. 3. [...] from prior labral repairversus recurrent tear. 2. Axkb-bd-qygbphou chondromalacia about the right lateral hip. 3. Intraosseous ganglion cyst/degenerative cystic changes about theacetabular roof. us Candida Baltazar P.A.-C. IMG MRI PROCEDURES Fi nal Result documented in this encounter Visit Diagnoses Diagnosis Pain Hip Right documented in this encounter Additional Health Concerns Assessment Noted Time PHQ-9 Depression Total Score: 5 07/07/19 24 9:17 PM CDT documented as of this encounter Care Teams Tractor Engine Mechanic Relationship Specialty Start Date End Date Elsewhere, Pcp PCP - General Internal Medicine 05/22/18 documented as of this encounter
--- OUTSIDE RECORDS SUMMARY | 2023-11-25 17:57 | XMS_ITS | Encounter Summary ---
Author Organization [facility] Address [address] [place] [address] Care Team Providers Care Bulb Grower Name Role Phone Elsewhere, Pcp Primary Care Provider Unavailabl e Encounter Details Date Type Department Care Team (Late st Contact Info) Description 11/15/2023 Orders Only Department of Urology in [place], [place] [address] [place] [phone] Kate Egan P.A.-C. [address] [place] [phone] Social History Tobacco Use Types Packs/Day Years Used Date Smoking Tobacco: Never Smokeless Tobacco: Never Alcohol Use Standard Drinks/Week Comments Yes 1 (1 standard drink = 0.6 oz pur e alcohol) [facility] Utilities Answer Date Recorded In the past 12 months has e electric, gas, oil, or water [employer] threatened to shut off services in your [...] often do you attend chur ch or jehovah's witness services? More than 4 times per year 2022 Do you belong to any clubs o r organizations such as methodist groups, unions, fraternal or athletic groups, or [...] Answer Date Recorded PHQ-2 Score 0 07/07/2023 [facility] Questionnaire Answer Date [...] your living situation today? I have a [facility] place to live 05/22/2023 Education Answer Date Recorded What is the highest level of school you have completed or the highest degree you have received? Some college, no degree 05/24/2020 Sex and Gender Information Value Date Recorded Sex Assigned at Male 10/29/2020 12:38 PM CDT Legal Sex Male 1:45 PM ASSEMBLER SKYLIGHTS Gender Identity Male 07/15/2019 8:59 AM CDT Sexual Orientation Straight 07/15/2019 8: 59 AM CDT documented as of this encounter Plan of Treatment Upcoming Encounters Date Type Department Care Team (Late st Contact Info) Description 11/29/2023 8:00 AM CDT Appointment Department of Orthopedic Surgery in [place], [place] [address] [place] [address] Ahsan Talbert M.D., Ph.D. 200 [place] [phone] 11/29/2023 10:00 AM CDT Procedure visit Department of Urology in [place], [place] [address] [place] [address] Kate Egan P.A.-C. [address] [place] [phone] 01/06/2024 9:15 AM ASSEMBLER SKYLIGHTS Office Visit Department of Orthopedic Surgery in [place], [place] [address] [place] [phone] Jose Crawford M.D. [address] [place] [phone] 01/27/2024 4:30 PM ASSEMBLER SKYLIGHTS Clinical Communication Virtual Review in [place], [place] 200 [place] [phone] 01/30/2024 3:30 PM ASSEMBLER SKYLIGHTS Telemedicine Department of Urology in [place], [place] [address] [place] [phone] Kate Egan P.A.-Kathya [address] [place] [phone] documented as of this encounter Visit Diagnoses Not on filedocumented in this encounter Additional Health Concerns Assessment Noted Time PHQ-9 Depression Total Score: 5 07/07/19 24 9:17 PM CDT documented as of this encounter Care Teams Bulb Grower Relationship Specialty Start Date End Date Elsewhere, Pcp PCP - General Internal Medicine 05/22/18 documented as of this encounter
--- OUTSIDE RECORDS SUMMARY | 2023-11-25 17:57 | XMS_ITS | Encounter Summary ---
Author Organization [facility] Address [address] [place] [address] Care Team Providers Care Bid Analyst Name Role Phone Elsewhere, Pcp Primary Care Provider Unavailabl e Reason for Referral * Outpatient (Routine) - Authorized Specialty Diagnoses / Procedures Referred By Contac t Referred To Contact Diagnoses Hypermobility Joint Procedures ORS Cast Room Visit Ahsan Talbert M.D., Ph.D. [address] [place] [phone] Phone: tel: fax: [facility] Referral ID Status Reason Start Date Expiration Date V isits Requested Visits Authorized [id number] Authorized 11/07/2023 11/06/2024 1 1 * Outpatient (Routine) - Closed Specialty Diagnoses / Procedures Referred By Contac t Referred To Contact Diagnoses Pain Hip Left Procedures ORS Cast Room Visit Kushal Mendieta M.D. [address] [place] [phone] Phone: tel: fax: [facility] Referral ID Status Reason Start Date Expiration Date Visits Re quested Visits Authorized [id number] Closed 08/22/2023 08/21/2024 1 1 Reason for Visit * Outpatient (Routine) - Closed Specialty Diagnoses / Procedures Referred By Contac t Referred To Contact Diagnoses Pain Hip Left Procedures ORS Cast Room Visit Kushal Mendieta M.D. [address] [place] [phone] Phone: tel: fax: [facility] Referral ID Status Reason Start Date Expiration Date Visits Re quested Visits Authorized [id number] Closed 08/22/2023 08/21/2024 1 1 Encounter Details Date Type Department Care Team (Latest Contact Info) Description 11/07/2023 7:54 AM CDT - 11/07/2023 8:34 AM CDT Hospital Encounter Department of Orthopedic Surgery in [place], [place] [address] [place] [phone] Kushal Mendieta M.D. [address] [place] [phone] Ahsan Talbert M.D., Ph.D. [address] [place] [phone] Mobility Limited (Primary Dx); Pain Hip Left; Hypermobility Joint Discharge Disposition: Home or Self Care Social History Tobacco Use Types Packs/Day Years Used Date Smoking Tobacco: Never Smokeless Tobacco: Never Alcohol Use Standard Drinks/Week Comments Yes 1 (1 standard drink = 0.6 oz pur e alcohol) [facility] Utilities Answer Date Recorded In the past 12 months has e [employer], gas, oil, or water [employer] threatened to shut off services in your [...] often do you attend chur ch or caodaism services? More than 4 times per year 2022 Do you belong to any clubs o r organizations such as alevism groups, unions, fraternal or athletic groups, or [...] Date Recorded PHQ-2 Score 0 07/07/2023 [facility] - Occupational Stress Questionnaire [...] your living situation today? I have a [employer] place to live 05/22/2023 Education Answer Date Recorded What is the highest level of school you have completed or the highest degree you have received? Some college, no degree 05/24/2020 Sex and Gender Information Value Date Recorded Sex Assigned at Male 10/29/2020 12:38 PM CDT Legal Sex Male 1:45 PM CHICKEN SEXER Gender Identity Male 07/15/2019 8:59 AM CDT [...] He has had parallel evaluation up at [place] and has an ongoing discussion regarding the potential utility of proceeding with a periacetabular osteotomy up in the [facility] at some point for his right side. [...] CDT Appointment Department of Orthopedic Surgery in [address] [phone] Ahsan Talbert M.D., Ph.D. [address] [place] [phone] 11/29/2023 10:00 AM CDT Procedure visit Department of Urology in [place], [place] [address] [place] [phone] Kate Egan P.A.-C. [address] [place] [phone] 01/06/2024 9:15 AM CHICKEN SEXER Office Visit Department of Orthopedic Surgery in [place], [place] [address] [place] [phone] Jose Crawford M.D. [address] [place] [phone] 01/27/2024 4:30 PM CHICKEN SEXER Clinical Communication Virtual Review in [place], [place] 200 [place] [phone] 01/30/2024 3:30 PM CHICKEN SEXER Telemedicine Department of Urology in [place], [place] [address] [place] [phone] Kaet Egan P.A.-C. [address] [place] [phone] Scheduled Orders Name Type Priority Associated Diagnoses [...] documented as of this encounter Care Teams Bid Analyst Relationship Specialty Start Date End Date Elsewhere, Pcp PCP - General Internal Medicine 05/22/18 documented as of this encounter
--- OUTSIDE RECORDS SUMMARY | 2023-11-25 17:57 | XMS_ITS | Encounter Summary ---
Author Organization [facility] Address [address] [place] [address] Care Team Providers Care Inspector Floor Sub Assembly Name Role Phone Elsewhere, Pcp Primary Care Provider Unavailabl e Encounter Details Date Type Department Care Team (Late st Contact Info) Description 10/25/2023 Clinical Communication Department of Sports Medicine in [place], [place] [address] [place] [phone] Ahsan Talbert M.D., Ph.D. [address] [place] [phone] Social History Tobacco Use Types Packs/Day Years Used Date Smoking Tobacco: Never Smokeless Tobacco: Never Alcohol Use Standard Drinks/Week Comments Yes 1 (1 standard drink = 0.6 oz pur e alcohol) [facility] Utilities Answer Date Recorded In the past 12 months has e [employer], gas, oil, or water [employer] threatened to shut off services in your [...] Answer Date Recorded PHQ-2 Score 0 07/07/2023 [facility] [...] living situation today? I have a [facility] place to live 05/22/2023 Education Answer Date Recorded What is the highest level of school you have completed or the highest degree you have received? Some college, no degree 05/24/2020 Sex and Gender Information Value Date Recorded Sex Assigned at Male 10/29/2020 12:38 PM CDT Legal Sex Male 1:45 PM CONSTRUCTION SPECIALIST Gender Identity Male 07/15/2019 8:59 AM CDT Sexual Orientation Straight 07/15/2019 8: 59 AM CDT documented as of this encounter Plan of Treatment Upcoming Encounters Date Type Department Care Team (Late st Contact Info) Description 11/29/2023 8:00 AM CDT Appointment Department of Orthopedic Surgery in [place], [place] [address] [place] [address] Ahsan Talbert M.D., Ph.D. 200 [place] [phone] 11/29/2023 10:00 AM CDT Procedure visit Department of Urology in [place], [place] [address] [place] [address] Kate Egan P.A.-C. [address] [place] [phone] 01/06/2024 9:15 AM CONSTRUCTION SPECIALIST Office Visit Department of Orthopedic Surgery in [place], [place] [address] [place] [phone] Jose Crawford M.D. [address] [place] [phone] 01/27/2024 4:30 PM CONSTRUCTION SPECIALIST Clinical Communication Virtual Review in [place], [place] 200 [place] [phone] 01/30/2024 3:30 PM CONSTRUCTION SPECIALIST Telemedicine Department of Urology in [place], [place] [address] [place] [phone] Kate Egan P.A.-C. [address] [place] [phone] documented as of this encounter Visit Diagnoses Not on filedocumented in this encounter Additional Health Concerns Assessment Noted Time PHQ-9 Depression Total Score: 5 07/07/19 24 9:17 PM CDT documented as of this encounter Care Teams Inspector Floor Sub Assembly Relationship Specialty Start Date End Date Elsewhere, Pcp PCP - General Internal Medicine 05/22/18 documented as of this encounter
--- OUTSIDE RECORDS SUMMARY | 2023-11-25 17:57 | XMS_ITS | Encounter Summary ---
Author Organization [facility] Address [address] [place] [address] Care Team Providers Care Wire Splicer Name Role Phone Elsewhere, Pcp Primary Care Provider Unavailabl e Reason for Visit * Physical Therapy (Routine) - Closed Specialty Diagnoses / Procedures Referred By Ye lund Referred To Contact Diagnoses Pain Wrist Left Procedures PT or OT eval and treat (first available) Mike Salomon Jr., Raymon.A.-CMackenzie [address] [place] [phone] Phone: tel: fax: [facility] Referral ID Status Reason Start Date Expiration Date Visits Re quested Visits Authorized [id number] Closed 10/13/2023 10/12/2024 1 1 Encounter Details Date Type Department Care Team (Latest Contact Info) Description 11/07/2023 1:00 PM CDT Comprehensive Visit Department of Physical Medicine and Rehabilitation in [place], [place] [address] [place] [phone] Mike Salomon Jr., P.A.-C. [address] [place] [phone] Irish White P.T., D.P.TMackenzie [address] [place] [address] [phone] Pain Wrist Left (Primary Dx); Pain Wrist [...] How often do you attend chur or samaritan services? More than 4 times [...] Answer Date Recorded PHQ-2 Score 0 07/07/2023 [facility] - Occupational Stress Questionnaire Answer Date [...] your living situation today? I have a [facility] place to live 05/22/2023 Education Answer Date Recorded What is the highest level of school you have completed or the highest degree you have received? Some college, no degree 05/24/2020 Sex and Gender Information Value Date Recorded Sex Assigned at Male 10/29/2020 12:38 PM CDT Legal Sex Male 1:45 PM DIGITAL LEARNING PLATFORMS MANAGER Gender Identity Male 07/15/2019 8:59 AM [...] right wrist and was interested in pursuing [facility]; he does not want surgical intervention [...] Wrist Left 2. 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 [address] [place] [phone] 11/29/2023 10:00 AM CDT Procedure visit Department of Urology in [place], [place] [address] [place] [phone] Kate Egan P.A.-CMackenzie [address] [place] [phone] 01/06/2024 9:15 AM DIGITAL LEARNING PLATFORMS MANAGER Office Visit Department of Orthopedic Surgery in [place], [place] [address] [place] [phone] Jose Albarran M.D. [address] [place] [phone] 01/27/2024 4:30 PM DIGITAL LEARNING PLATFORMS MANAGER Clinical Communication Virtual Review in [place], [place] 200 [place] [phone] 01/30/2024 3:30 PM DIGITAL LEARNING PLATFORMS MANAGER Telemedicine Department of Urology in [address] [phone] Kate Egan P.A.-C. [address] [place] [phone] documented as of this encounter Visit Diagnoses Diagnosis Pain Wrist Left- Primary Pain Wrist Right documented in this encounter Additional Health Concerns Assessment Noted Time PHQ-9 Depression Total Score: 5 07/07/19 24 9:17 PM CDT documented as of this encounter Care Teams Wire Splicer Relationship Specialty Start Date End Date Elsewhere, Pcp PCP - General Internal Medicine 05/22/18 documented as of this encounter
--- OUTSIDE RECORDS SUMMARY | 2023-11-25 17:57 | XMS_ITS | Encounter Summary ---
Author Organization [facility] Address [address] [place] [address] Care Team Providers Care Loom Changeover Operator Name Role Phone Elsewhere, Pcp Primary Care Provider Unavailabl e Reason for Referral * Outpatient (Routine) - Closed Specialty Diagnoses / Procedures Referred By Contac t Referred To Contact Diagnoses Pain Hip Right Procedures [place] Hip Arthrogram Injection Right Candida Lucero P.A.-C. [address] [place] [phone] Phone: tel: fax: [facility] Referral ID Status Reason Start Date Expiration Date Visits Re quested Visits Authorized [id number] Closed 10/24/2023 10/23/2024 1 1 Reason for Visit * Outpatient (Routine) - Closed Specialty Diagnoses / Procedures Referred By Contac t Referred To Contact Diagnoses Pain Hip Right Procedures [place] Hip Arthrogram Injection Right Candida Lucero P.A.-C. [address] [place] [phone] Phone: tel: fax: [facility] Referral ID Status Reason Start Date Expiration Date Visits Re quested Visits Authorized [id number] Closed 10/24/2023 10/23/2024 1 1 Encounter Details Date Type Department Care Team (Latest Contact Info) Description 10/31/2023 9:08 AM CDT - 10/31/2023 11:59 PM CDT Hospital Encounter Department of Radiology, [facility], in [place], [place] [address] [place] [phone] Candida Lucero P.A.-C. [address] [place] [phone] Pain Hip Right Discharge Disposition: Home or Self Care Social History Tobacco Use Types Packs/Day Years Used Date Smoking Tobacco: Never Smokeless Tobacco: Never Alcohol Use Standard Drinks/Week Comments Yes 1 (1 standard drink = 0.6 oz pur e alcohol) [facility] Utilities Answer Date Recorded In the [...] often do you attend chur ch or hindu services? More than 4 times per year [...] Answer Date Recorded PHQ-2 Score 0 07/07/2023 [facility] Occupat ional Health - [...] PM CDT Legal Sex Male 1:45 PM ENGINE OILER Gender Identity Male 07/15/2019 8:59 AM CDT [...] CDT Appointment Department of Orthopedic Surgery in [place], [place] 200 [place] [address] Ahsan Talbert M.D., Ph.D. [address] [place] [phone] 11/29/2023 10:00 AM CDT Procedure visit Department of Urology in [place], [place] [address] [place] [phone] Kate Egan P.A.-C. [address] [place] [phone] 01/06/2024 9:15 AM ENGINE OILER Office Visit Department of Orthopedic Surgery in [place], [place] [address] [place] [phone] Jose Crawford M.D. [address] [place] [phone] 01/27/2024 4:30 PM ENGINE OILER Clinical Communication Virtual Review in [place], [place] 200 [place] [phone] 01/30/2024 3:30 PM ENGINE OILER Telemedicine Department of Urology in [place], [place] [address] [place] [phone] Kate Egan P.A.-C. [address] [place] [phone] documented as of this encounter Procedures Procedure [...] documented as of this encounter Care Teams Loom Changeover Operator Relationship Specialty Start Date End Date Elsewhere, Pcp PCP - General Internal Medicine 05/22/18 documented as of this encounter
--- OUTSIDE RECORDS SUMMARY | 2023-11-25 17:57 | XMS_ITS | Encounter Summary ---
Author Organization [facility] Address [address] [place] [address] Care Team Providers Care Senior Planner Name Role Phone Elsewhere, Pcp Primary Care Provider Unavailabl e Reason for Referral * Physical Therapy (Routine) - Closed Specialty Diagnoses / Procedures Referred By Ye lund Referred To Contact Diagnoses Pain Hip Right Procedures PT Evaluate and treat Candida Lucero P.A.-C. [address] [place] [phone] Phone: tel: fax: [facility] Referral ID Status Reason Start Date Expiration Date Visits Re quested Visits Authorized [id number] Closed 10/25/2023 10/24/2024 1 1 Encounter Details Date Type Department Care Team (Late st Contact Info) Description 10/25/2023 Orders Only Department of Orthopedic Surgery in [place], [place] [address] [place] [phone] Candida Lucero P.AMackenzie-Kathya [address] [place] [phone] Pain Hip Right (Primary Dx) Social History Tobacco Use Types Packs/Day Years Used Date Smoking Tobacco: Never Smokeless Tobacco: Never Alcohol Use Standard Drinks/Week Comments Yes 1 (1 standard drink = 0.6 oz pur e alcohol) [facility] Utilities Answer Date Recorded In the past 12 months has [employer], gas, oil, or water company threatened [...] often do you attend [facility] or taoist services? More than 4 times per year 2022 Do you belong to any clubs o r organizations such as anabaptism groups, unions, fraternal or athletic groups, or [...] Answer Date Recorded PHQ-2 Score 0 07/07/2023 [facility] of Occupat ional Health - Occupational [...] PM CDT Legal Sex Male 1:45 PM PRINTED CIRCUIT LAYOUT TAPER Gender Identity Male 07/15/2019 8:59 AM CDT Sexual Orientation Straight 07/15/2019 8: 59 AM CDT documented as of this encounter Plan of Treatment Upcoming Encounters Date Type Department Care Team (Late st Contact Info) Description 11/29/2023 8:00 AM CDT Appointment Department of Orthopedic Surgery in [place], [place] [address] [place] [phone] Ahsan Talbert M.D., Ph.D. [address] [place] [phone] 11/29/2023 10:00 AM CDT Procedure visit Department of Urology in [place], [place] [address] [place] [phone] Kate Egan P.A.-CMackenzie [address] [place] [phone] 01/06/2024 9:15 AM PRINTED CIRCUIT LAYOUT TAPER Office Visit Department of Orthopedic Surgery in [place], [place] [address] [place] [phone] Jose Crawford M.D. [address] [place] [phone] 01/27/2024 4:30 PM PRINTED CIRCUIT LAYOUT TAPER Clinical Communication Virtual Review in [place], [place] 200 [place] [phone] 01/30/2024 3:30 PM PRINTED CIRCUIT LAYOUT TAPER Telemedicine Department of Urology in [address] [phone] Kate Egan P.A.-CMackenzie [address] [place] [phone] documented as of this encounter Visit Diagnoses Diagnosis Pain Hip Right- Primary documented in this encounter Additional Health Concerns Assessment Noted Time PHQ-9 Depression Total Score: 5 07/07/19 24 9:17 PM CDT documented as of this encounter Care Teams Senior Planner Relationship Specialty Start Date End Date Elsewhere, Pcp PCP - General Internal Medicine 05/22/18 documented as of this encounter
--- OUTSIDE RECORDS SUMMARY | 2023-11-25 17:57 | XMS_ITS | Encounter Summary ---
Author Organization [facility] Address [address] [place] [address] Care Team Providers Care Gas Pumper Name Role Phone Elsewhere, Pcp Primary Care Provider Unavailabl e Reason for Visit * Reason Onset Date Comments Wheelchair order needed urgently 11/14/2023 Encounter Details Date Type Department Care Team (Latest Contact Info) Description 11/14/2023 Clinical Communication Department of Sports Medicine in [place], [place] [address] [place] [address] Ahsan Talbert M.D., Ph.D. [address] [place] [phone] Wheelchair order needed urgently Social History Tobacco Use Types Packs/Day Years Used Date Smoking Tobacco: Never Smokeless Tobacco: Never Alcohol Use Standard Drinks/Week Comments Yes 1 (1 standard drink = 0.6 oz pur e alcohol) [facility] Utilities Answer Date Recorded In the past 12 months has [facility] [employer], gas, oil, or water [employer] threatened to shut off services in your [...] How often do you attend chur or gnosticist services? More than 4 times [...] Date Recorded PHQ-2 Score 0 07/07/2023 [facility] of Occupat ional Health - [...] your living situation today? I have a [facility] place to live 05/22/2023 Education Answer Date Recorded What is the highest level of school you have completed or the highest degree you have received? Some college, no degree 05/24/2020 Sex and Gender Information Value Date Recorded Sex Assigned at Male 10/29/2020 12:38 PM CDT Legal Sex Male 1:45 PM INFORMATION TECHNOLOGY SECURITY MANAGER Gender Identity Male 07/15/2019 8:59 AM CDT Sexual Orientation Straight 07/15/2019 8: 59 AM CDT documented as of this encounter Plan of Treatment Upcoming Encounters Date Type Department Care Team (Late st Contact Info) Description 11/29/2023 8:00 AM CDT Appointment Department of Orthopedic Surgery in [place], [place] 200 [place] [phone] Ahsan Talbert M.D., Ph.D. 200 [place] [phone] 11/29/2023 10:00 AM CDT Procedure visit Department of Urology in [place], [place] [address] [place] [phone] Kate Egan P.A.-C. [address] [place] [phone] 01/06/2024 9:15 AM INFORMATION TECHNOLOGY SECURITY MANAGER Office Visit Department of Orthopedic Surgery in [place], [place] [address] [place] [phone] Jose Crawford M.D. [address] [place] [phone] 01/27/2024 4:30 PM INFORMATION TECHNOLOGY SECURITY MANAGER Clinical Communication Virtual Review in [place], [place] 200 [place] [phone] 01/30/2024 3:30 PM INFORMATION TECHNOLOGY SECURITY MANAGER Telemedicine Department of Urology in [place], [place] [address] [place] [phone] Kate Egan P.A.-CMackenzie [address] [place] [phone] documented as of this encounter Visit Diagnoses Not on filedocumented in this encounter Additional Health Concerns Assessment Noted Time PHQ-9 Depression Total Score: 5 07/07/19 24 9:17 PM CDT documented as of this encounter Care Teams Gas Pumper Relationship Specialty Start Date End Date Elsewhere, Pcp PCP - General Internal Medicine 05/22/18 documented as of this encounter
--- OUTSIDE RECORDS SUMMARY | 2023-11-25 17:57 | XMS_ITS | Encounter Summary ---
Author Organization [facility] Address [address] [place] [address] Care Team Providers Care Outsole Tacker Name Role Phone Elsewhere, Pcp Primary Care Provider Unavailabl e Reason for Visit * Reason Onset Date Comments Order Needed Today 11/07/2023 Encounter Details Date Type Department Care Team (Latest Contact Info) Description 11/07/2023 Clinical Communication Department of Sports Medicine in [place], [place] [address] [place] [address] Ahsan Talbert M.D., Ph.D. [address] [place] [phone] Order Needed Today Social History Tobacco Use Types Packs/Day Years Used Date Smoking Tobacco: Never Smokeless Tobacco: Never Alcohol Use Standard Drinks/Week Comments Yes 1 (1 standard drink = 0.6 oz pur e alcohol) [facility] Utilities Answer Date Recorded In the past 12 months has [facility] [employer], gas, oil, or water [employer] threatened [...] How often do you attend chur or rastafarian services? More than 4 times per year 2022 Do you belong to any clubs o r organizations such as religious groups, unions, fraternal or athletic groups, or [...] your living situation today? I have a [facility] place to live 05/22/2023 Education Answer Date Recorded What is the highest level of school you have completed or the highest degree you have received? Some college, no degree 05/24/2020 Sex and Gender Information Value Date Recorded Sex Assigned at Male 10/29/2020 12:38 PM CDT Legal Sex Male 1:45 PM DUDE RANCH MANAGER Gender Identity Male 07/15/2019 8:59 AM CDT Sexual Orientation Straight 07/15/2019 8: 59 AM CDT documented as of this encounter Plan of Treatment Upcoming Encounters Date Type Department Care Team (Late st Contact Info) Description 11/29/2023 8:00 AM CDT Appointment Department of Orthopedic Surgery in [place], [place] 200 [place] [address] Ahsan Talbert M.D., Ph.D. 200 [place] [phone] 11/29/2023 10:00 AM CDT Procedure visit Department of Urology in [place], [place] [address] [place] [phone] Kate Egan P.A.-C. [address] [place] [phone] 01/06/2024 9:15 AM DUDE RANCH MANAGER Office Visit Department of Orthopedic Surgery in [place], [place] [address] [place] [phone] Jose Crawford M.D. [address] [place] [phone] 01/27/2024 4:30 PM DUDE RANCH MANAGER Clinical Communication Virtual Review in [place], [place] 200 [place] [phone] 01/30/2024 3:30 PM DUDE RANCH MANAGER Telemedicine Department of Urology in [place], [place] [address] [place] [phone] Kate Egan P.A.-CMackenzie [address] [place] [phone] documented as of this encounter Visit Diagnoses Not on filedocumented in this encounter Additional Health Concerns Assessment Noted Time PHQ-9 Depression Total Score: 5 07/07/19 24 9:17 PM CDT documented as of this encounter Care Teams Outsole Tacker Relationship Specialty Start Date End Date Elsewhere, Pcp PCP - General Internal Medicine 05/22/18 documented as of this encounter
--- OUTSIDE RECORDS SUMMARY | 2023-11-25 17:57 | XMS_ITS | Encounter Summary ---
Author Organization [facility] Address [address] [place] [address] Care Team Providers Care Door To Door Salesperson Name Role Phone Elsewhere, Pcp Primary Care Provider Unavailabl e Reason for Referral * MRI/CAT/PET Scan (Routine) - Closed Specialty Diagnoses / Procedures Referred By Ye t Referred To Contact Radiology Diagnoses Pain Hip Right Procedures CT Hip Right without IV Contrast Candida Lucero P.A.-Kathya [address] [place] [phone] Phone: tel: fax: [facility] Referral ID Status Reason Start Date Expiration Date Visits Re quested Visits Authorized [id number] Closed 10/25/2023 10/24/2024 1 1 Encounter Details Date Type Department Care Team (Late st Contact Info) Description 10/25/2023 Orders Only Department of Orthopedic Surgery in [place], [place] [address] [place] [phone] Candida Lucero P.AMackenzie-CMackenzie [address] [place] [phone] Pain Hip Right (Primary Dx) Social History Tobacco Use Types Packs/Day Years Used Date Smoking Tobacco: Never Smokeless Tobacco: Never Alcohol Use Standard Drinks/Week Comments Yes 1 (1 standard drink = 0.6 oz pur e alcohol) [facility] Utilities Answer Date Recorded In the past 12 months has [employer], oil, or water [employer] threatened to shut off services in your [...] any clubs o r organizations such as confucianism groups, unions, fraternal or athletic groups, or [...] Answer Date Recorded PHQ-2 Score 0 07/07/2023 [facility] - Occupational Stress Questionnaire Answer Date Recorded [...] your living situation today? I have a [facility] place to live 05/22/2023 Education Answer Date Recorded What is the highest level of school you have completed or the highest degree you have received? Some college, no degree 05/24/2020 Sex and Gender Information Value Date Recorded Sex Assigned at Male 10/29/2020 12:38 PM CDT Legal Sex Male 1:45 PM VESSEL SLAGMAN Gender Identity Male 07/15/2019 8:59 AM CDT Sexual Orientation Straight 07/15/2019 8: 59 AM CDT documented as of this encounter Plan of Treatment Upcoming Encounters Date Type Department Care Team (Late st Contact Info) Description 11/29/2023 8:00 AM CDT Appointment Department of Orthopedic Surgery in [place], [place] [address] [place] [phone] Ahsan Talbert M.D., Ph.D. [address] [place] [phone] 11/29/2023 10:00 AM CDT Procedure visit Department of Urology in [place], [place] [address] [place] [phone] Kate Egan, P.A.-C. [address] [place] [phone] 01/06/2024 9:15 AM V[employer]SEL [employer] Office Visit Department of Orthopedic Surgery in [place], [place] [address] [place] [phone] Jose Crawford M.D. [address] [place] [phone] 01/27/2024 4:30 PM VESSEL SLAG[employer] Clinical Communication Virtual Review in [place], [place] 200 [place] [phone] 01/30/2024 3:30 PM VESSEL SLAGMAN Telemedicine Department of Urology in [place], [place] [address] [place] [phone] Kate Egan P.A.-C. [address] [place] [phone] documented as of this encounter Results * [...] documented as of this encounter Care Teams Door To Door Salesperson Relationship Specialty Start Date End Date Elsewhere, Pcp PCP - General Internal Medicine 05/22/18 documented as of this encounter
--- OUTSIDE RECORDS SUMMARY | 2023-11-25 17:58 | XMS_ITS | Encounter Summary ---
Author Organization [facility] Address [address] [place] [address] Care Team Providers Care Lead Instructor/Flight Attendant Name Role Phone Elsewhere, Pcp Primary Care Provider Unavailabl e Reason for Visit * Reason Comments Other clean intermittent c atheterization and uroflow /bladder scan * Outpatient (Routine) - Closed Specialty Diagnoses / Procedures Referred By Ye t Referred To Contact Diagnoses Frequency Urinary Procedures URO Uroflow Tam Clark M.D. [address] [place] [phone] Phone: tel: fax: [facility] Referral ID Status Reason Start Date Expiration Date Visits Re quested Visits Authorized [id number] Closed 07/12/2023 07/11/2024 1 1 Encounter Details Date Type Department Care Team (Latest Contact Info) Description 08/18/2023 1:45 PM CDT Procedure visit Department of Urology in [place], [place] [address] [place] [phone] Tam Clark M.D. [address] [place] [phone] Alissa Mckinley, L.P.N. Retention Urinary (Primary [...] week 2022 How often do you attend [facility] or yazidism services? More than 4 times [...] Answer Date Recorded PHQ-2 Score 0 07/07/2023 [place] [facility] - Occupational Stress [...] living situation today? I have a [facility] place to live 05/22/2023 Education Answer Date Recorded What is the highest level of school you have completed or the highest degree you have received? Some college, no degree 05/24/2020 Sex and Gender Information Value Date Recorded Sex Assigned at Male 10/29/2020 12:38 PM CDT Legal Sex Male 1:45 PM DIRECTOR IT Gender Identity Male 07/15/2019 8:59 AM CDT [...] to patient. It was also faxed to [employer]. documented in this encounter Procedure Notes * [...] Appointment Department of Orthopedic Surgery in [address] [phone] Ahsan Talbert M.D., Ph.D. [address] [place] [phone] 11/29/2023 10:00 AM CDT Procedure visit Department of Urology in [address] [phone] Kate Egan, P.A.-C. [address] [place] [phone] 01/06/2024 9:15 AM DIRECTOR IT Office Visit Department of Orthopedic Surgery in [address] [phone] Jose Crawford M.D. [address] [place] [phone] 01/27/2024 4:30 PM DIRECTOR IT Clinical Communication Virtual Review in [address] [phone] 01/30/2024 3:30 PM DIRECTOR IT Telemedicine Department of Urology in [address] [phone] Kate Egan, P.A.-CMackenzie [address] [place] [phone] documented as of this encounter Procedures Procedure [...] documented as of this encounter Care Teams Lead Instructor/Flight Attendant Relationship Specialty Start Date End Date Elsewhere, Pcp PCP - General Internal Medicine 05/22/18 documented as of this encounter
--- OUTSIDE RECORDS SUMMARY | 2023-11-25 17:58 | XMS_ITS | Encounter Summary ---
Author Organization [facility] Address [address] [place] [address] Care Team Providers Care Electronic Game Developer Name Role Phone Elsewhere, Pcp Primary Care Provider Unavailabl e Reason for Visit * Outpatient (Routine) - Closed Specialty Diagnoses / Procedures Referred By Ye lund Referred To Contact Urology Kate Egan P.A.-CMackenzie [address] [place] [phone] Phone: tel: fax: Kate Egan, P.A.-CMackenzie [address] [place] [phone] Phone: tel: fax: Referral ID Status Reason Start Date Expiration Date Visits Re quested Visits Authorized [id number] Closed 08/24/2023 02/22/2025 1 1 Encounter Details Date Type Department Care Team (Late st Contact Info) Description 09/01/2023 1:00 PM CDT Telemedicine Department of Urology in [place], [place] [address] [place] [phone] Kate Egan, P.A.-C. [address] [place] [phone] Retention Urinary (Primary Dx); Dysfunction Pelvic Floor Male Social History Tobacco Use Types Packs/Day Years Used Date Smoking Tobacco: Never Smokeless Tobacco: Never Alcohol Use Standard Drinks/Week Comments Yes 1 (1 standard drink = 0.6 oz pur e alcohol) [facility] Utilities Answer Date Recorded In the past 12 months has th e electric, gas, oil, or water [employer] threatened to shut off services in your [...] often do you attend chur ch or congregational services? More than 4 times per year 2022 Do you belong to any clubs o r organizations such as episcopalian groups, unions, fraternal or athletic groups, or [...] Answer Date Recorded PHQ-2 Score 0 07/07/2023 [facility] of Occupat ional [facility] - Occupational Stress Questionnaire Answer [...] PM CDT Legal Sex Male 1:45 PM [employer]ERCISE [employer]ENCE [employer] Gender Identity Male 07/15/2019 8:59 AM CDT [...] with Capsulorrhaphy; Surgeon: Zoltan Haines M.D.; Location: [place] [address] OR ARTHROSCOPY OSTEOPLASTY FEMORAL NECK HIP Right [...] CDT Appointment Department of Orthopedic Surgery in [address] [phone] Ahsan Talbert M.D., Ph.D. [address] [place] [phone] 11/29/2023 10:00 AM CDT Procedure visit Department of Urology in [address] [phone] Kate Egan P.A.-C. [address] [place] [phone] 01/06/2024 9:15 AM EXERCISE SCIENCE INTERNS[employer] Office Visit Department of Orthopedic Surgery in [address] [phone] Jose Crawford M.D. [address] [place] [phone] 01/27/2024 4:30 PM EXERCISE SCIENCE INTERNSHIP Clinical Communication Virtual Review in [address] [phone] 01/30/2024 3:30 PM [employer] SCI[employer] INTERNS[employer] Telemedicine Department of Urology in [address] [phone] Kate Egan P.A.-C. [address] [place] [phone] documented as of this encounter Visit Diagnoses Diagnosis Retention Urinary- Primary Dysfunction Pelvic Floor Male documented in this encounter Additional Health Concerns Assessment Noted Time PHQ-9 Depression Total Score: 5 07/07/19 24 9:17 PM CDT documented as of this encounter Care Teams Electronic Game Developer Relationship Specialty Start Date End Date Elsewhere, Pcp PCP - General Internal Medicine 05/22/18 documented as of this encounter
--- OUTSIDE RECORDS SUMMARY | 2023-11-25 17:58 | XMS_ITS | Encounter Summary ---
Author Organization [facility] Address [address] [place] [address] Care Team Providers Care Insulation Cupola Charger Name Role Phone Elsewhere, Pcp Primary Care Provider Unavailabl e Encounter Details Date Type Department Care Team (Latest Contact Info) Description 08/18/2023 7:00 AM CDT - 08/18/2023 11:59 PM CDT Hospital Encounter Department of Laboratory Medicine and Pathology, [facility], in [place], [place] [address] [place] [phone] Tam Clark M.D. [address] [place] [address] Frequency Urinary Discharge Disposition: Home or Self Care Social History Tobacco Use Types Packs/Day Years Used Date Smoking Tobacco: Never Smokeless Tobacco: Never Alcohol Use Standard Drinks/Week Comments Yes 1 (1 standard drink = 0.6 oz pur e alcohol) [facility] Utilities Answer Date Recorded In the past 12 months has [facility] [employer], [employer], oil, or water [employer] threatened to shut off services in your [...] week 2022 How often do you attend [facility] or advent services? More than 4 times per year 2022 Do you belong to any clubs o r organizations such as quaker groups, unions, fraternal or athletic groups, or [...] your living situation today? I have a [facility] place to live 05/22/2023 Education Answer Date Recorded What is the highest level of school you have completed or the highest degree you have received? Some college, no degree 05/24/2020 Sex and Gender Information Value Date Recorded Sex Assigned at Male 10/29/2020 12:38 PM CDT Legal Sex Male 1:45 PM [employer] Gender Identity Male 07/15/2019 8:59 AM CDT [...] CDT Appointment Department of Orthopedic Surgery in [address] [phone] Ahsan Talbert M.D., Ph.D. [address] [place] [phone] 11/29/2023 10:00 AM CDT Procedure visit Department of Urology in [address] [phone] Kate Egan, P.A.-C. [address] [place] [phone] 01/06/2024 9:15 AM [employer] Office Visit Department of Orthopedic Surgery in [address] [phone] Jose Crawford M.D. [address] [place] [phone] 01/27/2024 4:30 PM [employer] Clinical Communication Virtual Review in [place], [place] 200 [place] [address] 01/30/2024 3:30 PM [employer] Telemedicine Department of Urology in [address] [phone] Kate Egan P.A.-CMackenzie [address] [place] [phone] documented as of this encounter Procedures Procedure [...] ORDERABLES Final Resu lt Performing Organization Address City/[facility]/ZIP Co de Phone Number [facility] 200 [place] [address], [facility] 200 [place] [address] * pH, Urine (08/18/2023 7:31 AM CDT) pH, U 6.1 4.5 - 8.0 08/18/2023 8:5 9 AM CDT DTL Urine 08/18/2023 7:31 AM CDT 08/18/2023 7:41 AM CDT Tam Clark M.D. LAB URINE ORDERABLES Final Resu lt Performing Organization Address City/[facility]/ZIP Co de Phone Number [facility] [address] [place] [address], [facility] 200 [place] [address] * Microscopic Automated (08/18/2023 7:31 AM CDT) Pathologist [facility] Microscopy Normal 08/18/2023 7:58 AM CDT DTL RBC None Seen <3 /hpf 08/18/2023 7:58 AM CDT DTL WBC None Seen /hpf 08/18/2023 7:58 AM CDT DTL Comment: ----REFERENCE VALUE---- <4 ??(Males) <11 (Females) Urine 08/18/2023 7:31 AM CDT 08/18/2023 7:41 AM CDT Tam Clark M.D. LAB URINE ORDERABLES Final Resu lt Performing Organization Address City/[facility]/ZIP Co de Phone Number [facility] 200 [place], [place] [phone] [place] [address] [address] [facility] 200 [place] [address] * Osmolality, Urine (08/18/2023 7:31 AM CDT) Pathologist [facility] Osmolality, U 356 150 - 1150 mOsm/kg 08/18/2023 8:59 AM CDT DTL Urine 08/18/2023 7:31 AM CDT 08/18/2023 7:41 AM CDT Tam Clark M.D. LAB URINE ORDERABLES Final Resu lt [facility] 200 [place] [address], [facility] 200 [place] [address] * Urinalysis, with Microscopic: Urine, Midstream (08/18/2023 [...] M.D. LAB URINE ORDERABLES Final Resu lt [facility] [address] [place] [address], [facility] DTL [facility] [address] [place] [address] documented in this encounter Visit Diagnoses Diagnosis Frequency Urinary documented in this encounter Additional Health Concerns Assessment Noted Time PHQ-9 Depression Total Score: 5 07/07/19 24 9:17 PM CDT documented as of this encounter Care Teams Insulation Cupola Charger Relationship Specialty Start Date End Date Elsewhere, Pcp PCP - General Internal Medicine 05/22/18 documented as of this encounter
--- OUTSIDE RECORDS SUMMARY | 2023-11-25 17:58 | XMS_ITS | Encounter Summary ---
Author Organization [facility] Address [address] [place] [address] Care Team Providers Care Advisory Intern Name Role Phone Elsewhere, Pcp Primary Care Provider Unavailabl e Reason for Referral * Physical Therapy (Routine) - Closed Specialty Diagnoses / Procedures Referred By Ye lund Referred To Contact Diagnoses Pain Wrist Left Procedures PT or OT eval and treat (first available) Mike Salomon Jr., P.A.-C. [address] [place] [phone] Phone: tel: fax: [facility] Referral ID Status Reason Start Date Expiration Date Visits Re quested Visits Authorized [id number] Closed 10/13/2023 10/12/2024 1 1 Encounter Details Date Type Department Care Team (Late st Contact Info) Description 10/13/2023 Orders Only Department of Orthopedic Surgery in [place], [place] [address] [place] [phone] Mike Salomon Jr., P.A.-C. [address] [place] [phone] Pain Wrist Left (Primary Dx) Social History Tobacco Use Types Packs/Day Years Used Date Smoking Tobacco: Never Smokeless Tobacco: Never Alcohol Use Standard Drinks/Week Comments Yes 1 (1 standard drink = 0.6 oz pur e alcohol) [facility] Utilities Answer Date Recorded In the past 12 months has e [employer] gas, oil, or water [employer] threatened to shut off services in your [...] How often do you attend chur or mormon services? More than 4 times per year [...] Date Recorded PHQ-2 Score 0 07/07/2023 [facility] - Occupational Stress Questionnaire Answer Date Recorded [...] your living situation today? I have a [facility] to live 05/22/2023 Education Answer Date Recorded What is the highest level of school you have completed or the highest degree you have received? Some college, no degree 05/24/2020 Sex and Gender Information Value Date Recorded Sex Assigned at Male 10/29/2020 12:38 PM CDT Legal Sex Male 1:45 PM SAW HANDLE ASSEMBLER Gender Identity Male 07/15/2019 8:59 AM CDT Sexual Orientation Straight 07/15/2019 8: 59 AM CDT documented as of this encounter Plan of Treatment Upcoming Encounters Date Type Department Care Team (Late st Contact Info) Description 11/29/2023 8:00 AM CDT Appointment Department of Orthopedic Surgery in [place], [place] [address] [place] [phone] Ahsan Talbert M.D., Ph.D. [address] [place] [phone] 11/29/2023 10:00 AM CDT Procedure visit Department of Urology in [place], [place] [address] [place] [phone] Kate Egan, P.A.-C. [address] [place] [phone] 01/06/2024 9:15 AM SAW HANDLE ASSEMBLER Office Visit Department of Orthopedic Surgery in [place], [place] [address] [place] [phone] Jose Crawford M.D. [address] [place] [phone] 01/27/2024 4:30 PM SAW HANDLE ASSEMBLER Clinical Communication Virtual Review in [place], [place] 200 [place] [phone] 01/30/2024 3:30 PM SAW HANDLE ASSEMBLER Telemedicine Department of Urology in [place], [place] [address] [place] [phone] Kate Egan P.A.-CMackenzie [address] [place] [phone] documented as of this encounter Visit Diagnoses Diagnosis Pain Wrist Left- Primary documented in this encounter Additional Health Concerns Assessment Noted Time PHQ-9 Depression Total Score: 5 07/07/19 24 9:17 PM CDT documented as of this encounter Care Teams Advisory Intern Relationship Specialty Start Date End Date Elsewhere, Pcp PCP - General Internal Medicine 05/22/18 documented as of this encounter
--- OUTSIDE RECORDS SUMMARY | 2023-11-25 17:58 | XMS_ITS | Encounter Summary ---
Author Organization [facility] Address [address] [place] [address] Care Team Providers Care Knapsack Sprayer Name Role Phone Elsewhere, Pcp Primary Care Provider Unavailabl e Encounter Details Date Type Department Care Team (Late st Contact Info) Description 08/23/2023 Clinical Communication Department of Sports Medicine in [place], [place] [address] [place] [address] Ahsan Talbert M.D., Ph.D. [address] [place] [phone] Social History Tobacco Use Types Packs/Day Years Used Date Smoking Tobacco: Never Smokeless Tobacco: Never Alcohol Use Standard Drinks/Week Comments Yes 1 (1 standard drink = 0.6 oz pur e alcohol) [facility] Utilities Answer Date Recorded In the past 12 months has e [employer], gas, oil, or water [employer] threatened to shut off services in your [...] often do you attend chur ch or voodoo services? More than 4 times per year [...] [facility] - Occupational Stress Questionnaire Answer [...] CDT Legal Sex Male 1:45 PM SENIOR MECHANICAL DESIGN ENGINEER Gender Identity Male 07/15/2019 8:59 AM CDT Sexual Orientation Straight 07/15/2019 8: 59 AM CDT documented as of this encounter Plan of Treatment Upcoming Encounters Date Type Department Care Team (Late st Contact Info) Description 11/29/2023 8:00 AM CDT Appointment Department of Orthopedic Surgery in [place], [place] [address] [place] [phone] Ahsan Talbert M.D., Ph.D. 200 [place] [address] 11/29/2023 10:00 AM CDT Procedure visit Department of Urology in [place], [place] [address] [place] [address] Kate Egan P.A.-C. [address] [place] [phone] 01/06/2024 9:15 AM SENIOR MECHANICAL DESIGN ENGINEER Office Visit Department of Orthopedic Surgery in [place], [place] [address] [place] [phone] Jose Crawford M.D. [address] [place] [phone] 01/27/2024 4:30 PM SENIOR MECHANICAL DESIGN ENGINEER Clinical Communication Virtual Review in [place], [place] 200 [place] [phone] 01/30/2024 3:30 PM SENIOR MECHANICAL DESIGN ENGINEER Telemedicine Department of Urology in [place], [place] [address] [place] [phone] Kate Egan P.A.-C. [address] [place] [phone] documented as of this encounter Visit Diagnoses Not on filedocumented in this encounter Additional Health Concerns Assessment Noted Time PHQ-9 Depression Total Score: 5 07/07/19 24 9:17 PM CDT documented as of this encounter Care Teams Knapsack Sprayer Relationship Specialty Start Date End Date Elsewhere, Pcp PCP - General Internal Medicine 05/22/18 documented as of this encounter
--- OUTSIDE RECORDS SUMMARY | 2023-11-25 17:58 | XMS_ITS | Encounter Summary ---
Author Organization [facility] Address [address] [place] [address] Care Team Providers Care Territory Account Representative Name Role Phone Elsewhere, Pcp Primary Care Provider Unavailabl e Encounter Details Date Type Department Care Team (Late st Contact Info) Description 10/24/2023 Orders Only Department of Orthopedic Surgery in [place], [place] [address] [place] [phone] Ahsan Talbert M.D., Ph.D. [address] [place] [phone] Social History Tobacco Use Types Packs/Day Years Used Date Smoking Tobacco: Never Smokeless Tobacco: Never Alcohol Use Standard Drinks/Week Comments Yes 1 (1 standard drink = 0.6 oz pur e alcohol) [facility] Utilities Answer Date Recorded In the past 12 months has e electric, gas, oil, or water [employer] threatened to shut off services in your [...] often do you attend chur ch or spiritism services? More than 4 times per year [...] Date Recorded PHQ-2 Score 0 07/07/2023 [facility] - Occupational Stress Questionnaire Answer Date Recorded [...] PM CDT Legal Sex Male 1:45 PM TOUR DRIVER Gender Identity Male 07/15/2019 8:59 AM CDT Sexual Orientation Straight 07/15/2019 8: 59 AM CDT documented as of this encounter Plan of Treatment Upcoming Encounters Date Type Department Care Team (Late st Contact Info) Description 11/29/2023 8:00 AM CDT Appointment Department of Orthopedic Surgery in [place], [place] [address] [place] [address] Ahsan Talbert M.D., Ph.D. 200 [place] [address] 11/29/2023 10:00 AM CDT Procedure visit Department of Urology in [place], [place] [address] [place] [address] Kate Egan P.A.-C. [address] [place] [phone] 01/06/2024 9:15 AM TOUR DRIVER Office Visit Department of Orthopedic Surgery in [place], [place] [address] [place] [phone] Jose Crawford M.D. [address] [place] [phone] 01/27/2024 4:30 PM TOUR DRIVER Clinical Communication Virtual Review in [place], [place] 200 [place] [phone] 01/30/2024 3:30 PM TOUR DRIVER Telemedicine Department of Urology in [place], [place] [address] [place] [phone] Kate Egan P.A.-C. [address] [place] [phone] documented as of this encounter Visit Diagnoses Not on filedocumented in this encounter Additional Health Concerns Assessment Noted Time PHQ-9 Depression Total Score: 5 07/07/19 24 9:17 PM CDT documented as of this encounter Care Teams Territory Account Representative Relationship Specialty Start Date End Date Elsewhere, Pcp PCP - General Internal Medicine 05/22/18 documented as of this encounter
--- OUTSIDE RECORDS SUMMARY | 2023-11-25 17:58 | XMS_ITS | Encounter Summary ---
Author Organization [facility] Address [address] [place] [address] Care Team Providers Care Expense Clerk Name Role Phone Elsewhere, Pcp Primary Care Provider Unavailabl e Reason for Visit * Outpatient (Routine) - Closed Specialty Diagnoses / Procedures Referred By Ye lund Referred To Contact Urology Diagnoses Frequency Urinary Tam Clark M.D. [address] [place] [phone] Phone: tel: fax: [facility] Referral ID Status Reason Start Date Expiration Date Visits Re quested Visits Authorized [id number] Closed 07/12/2023 01/10/2025 1 1 Encounter Details Date Type Department Care Team (Latest Contact Info) Description 08/18/2023 8:00 AM CDT Comprehensive Visit Department of Urology in [place], [place] [address] [place] [phone] Kate Egan P.A.-C. [address] [place] [phone] Frequency Urinary (Primary Dx); Hesitancy Urinary Social History Tobacco Use Types Packs/Day Years Used Date Smoking Tobacco: Never Smokeless Tobacco: Never Alcohol Use Standard Drinks/Week Comments Yes 1 (1 standard drink = 0.6 oz pur e alcohol) [facility] Utilities Answer Date Recorded In the past [...] week 2022 How often do you attend [facility] or hinduism services? More than 4 times [...] Answer Date Recorded PHQ-2 Score 0 07/07/2023 [facility] of Occupat ional Health - Occupational Stress [...] your living situation today? I have a [employer] place to live 05/22/2023 Education Answer Date Recorded What is the highest level of school you have completed or the highest degree you have received? Some college, no degree 05/24/2020 Sex and Gender Information Value Date Recorded Sex Assigned at Male 10/29/2020 12:38 PM CDT Legal Sex Male 1:45 PM ROTATING FIELD ASSEMBLER Gender Identity Male 07/15/2019 8:59 AM [...] CDT Appointment Department of Orthopedic Surgery in [address] [phone] Ahsan Talbert M.D., Ph.D. [address] [place] [phone] 11/29/2023 10:00 AM CDT Procedure visit Department of Urology in [address] [phone] Kate Egan P.A.-C. [address] [place] [phone] 01/06/2024 9:15 AM ROTATING FIELD ASSEMBLER Office Visit Department of Orthopedic Surgery in [address] [phone] Jose Crawford M.D. [address] [place] [phone] 01/27/2024 4:30 PM ROTATING FIELD ASSEMBLER Clinical Communication Virtual Review in [address] [phone] 01/30/2024 3:30 PM ROTATING FIELD ASSEMBLER Telemedicine Department of Urology in [address] [phone] Kate Egan P.A.-C. [address] [place] [phone] documented as of this encounter Visit Diagnoses Diagnosis Frequency Urinary- Primary Hesitancy Urinary documented in this encounter Additional Health Concerns Assessment Noted Time PHQ-9 Depression Total Score: 5 07/07/19 24 9:17 PM CDT documented as of this encounter Care Teams Expense Clerk Relationship Specialty Start Date End Date Elsewhere, Pcp PCP - General Internal Medicine 05/22/18 documented as of this encounter
--- OUTSIDE RECORDS SUMMARY | 2023-11-25 17:58 | XMS_ITS | Encounter Summary ---
Author Organization [facility] Address [address] [place] [address] Care Team Providers Care Customs Verifier Name Role Phone Elsewhere, Pcp Primary Care Provider Unavailabl e Reason for Referral * Outpatient (Routine) - Closed Specialty Diagnoses / Procedures Referred By Ye lund Referred To Contact Urology Kate Egan P.A.-CMackenzie [address] [place] [phone] Phone: tel: fax: Kate Egan P.A.-CMackenzie [address] [place] [phone] Phone: tel: fax: Referral ID Status Reason Start Date Expiration Date Visits Re quested Visits Authorized [id number] Closed 08/24/2023 02/22/2025 1 1 Encounter Details Date Type Department Care Team (Late st Contact Info) Description 08/24/2023 Orders Only Department of Urology in [place], [place] [address] [place] [phone] Kate Egan P.A.-CMackenzie [address] [place] [address] [phone] Social History Tobacco Use Types Packs/Day Years Used Date Smoking Tobacco: Never Smokeless Tobacco: Never Alcohol Use Standard Drinks/Week Comments Yes 1 (1 standard drink = 0.6 oz pur e alcohol) [facility] Utilities Answer Date Recorded In the past [...] 07/07/2023 [facility] of Occupat ional [facility] - Occupational Stress Questionnaire Answer Date [...] PM CDT Legal Sex Male 1:45 PM COIN MACHINE SERVICER 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 [address] [place] [phone] 11/29/2023 10:00 AM CDT Procedure visit Department of Urology in [address] [phone] Kate Egan P.A.-CMackenzie [address] [place] [phone] 01/06/2024 9:15 AM COIN MACHINE SERVICER REPAIRER Office Visit Department of Orthopedic Surgery in [place], [place] [address] [place] [phone] Jose Crawford M.D. [address] [place] [phone] 01/27/2024 4:30 PM COIN MACHINE SERVICER REPAIRER Clinical Communication Virtual Review in [place], [place] 200 [place] [phone] 01/30/2024 3:30 PM COIN MACHINE SERVICER REPAIRER Telemedicine Department of Urology in [address] [phone] Kate Egan P.A.-C. [address] [place] [phone] Scheduled Referrals Name Type Priority Associated Diagnoses Orde r Schedule Urology office visit (clinic) General Outpatient Referral Routine Expected: 09/01/2023, Expires: 11/23/2024 documented as of this encounter Visit Diagnoses Not on filedocumented in this encounter Additional Health Concerns Assessment Noted Time PHQ-9 Depression Total Score: 5 07/07/19 24 9:17 PM CDT documented as of this encounter Care Teams Customs Verifier Relationship Specialty Start Date End Date Elsewhere, Pcp PCP - General Internal Medicine 05/22/18 documented as of this encounter
--- OUTSIDE RECORDS SUMMARY | 2023-11-25 17:58 | XMS_ITS | Encounter Summary ---
Author Organization [facility] Address [address] [place] [address] Care Team Providers Care Business Information Analyst Name Role Phone Elsewhere, Pcp Primary Care Provider Unavailabl e Encounter Details Date Type Department Care Team (Late st Contact Info) Description 09/16/2023 Clinical Communication Department of Sports Medicine in [place], [place] [address] [place] [address] Ahsan Talbert M.D., Ph.D. [address] [place] [phone] Social History Tobacco Use Types Packs/Day Years Used Date Smoking Tobacco: Never Smokeless Tobacco: Never Alcohol Use Standard Drinks/Week Comments Yes 1 (1 standard drink = 0.6 oz pur e alcohol) [facility] Utilities Answer Date Recorded In the past 12 months has e [employer], gas, oil, or water [employer] threatened to shut off services in your [...] Recorded PHQ-2 Score 0 07/07/2023 [facility] Occupational [facility] Questionnaire Answer Date [...] living situation today? I have a [employer] [facility] place to live 05/22/2023 Education Answer Date Recorded What is the highest level of school you have completed or the highest degree you have received? Some college, no degree 05/24/2020 Sex and Gender Information Value Date Recorded Sex Assigned at Male 10/29/2020 12:38 PM CDT Legal Sex Male 1:45 PM REGISTERED NURSE MATERNAL CHILD Gender Identity Male 07/15/2019 8:59 AM CDT Sexual Orientation Straight 07/15/2019 8: 59 AM CDT documented as of this encounter Plan of Treatment Upcoming Encounters Date Type Department Care Team (Late st Contact Info) Description 11/29/2023 8:00 AM CDT Appointment Department of Orthopedic Surgery in [place], [place] [address] [place] [address] Ahsan Talbert M.D., Ph.D. 200 [place] [phone] 11/29/2023 10:00 AM CDT Procedure visit Department of Urology in [place], [place] [address] [place] [address] Kate Egan P.A.-C. [address] [place] [phone] 01/06/2024 9:15 AM REGISTERED NURSE MATERNAL CHILD Office Visit Department of Orthopedic Surgery in [place], [place] [address] [place] [phone] Jose Crawford M.D. [address] [place] [phone] 01/27/2024 4:30 PM REGISTERED NURSE MATERNAL CHILD Clinical Communication Virtual Review in [place], [place] 200 [place] [phone] 01/30/2024 3:30 PM REGISTERED NURSE MATERNAL CHILD Telemedicine Department of Urology in [place], [place] [address] [place] [address] [phone] Kate Egan P.A.-C. [address] [place] [phone] documented as of this encounter Visit Diagnoses Not on filedocumented in this encounter Additional Health Concerns Assessment Noted Time PHQ-9 Depression Total Score: 5 07/07/19 24 9:17 PM CDT documented as of this encounter Care Teams Business Information Analyst Relationship Specialty Start Date End Date Elsewhere, Pcp PCP - General Internal Medicine 05/22/18 documented as of this encounter
--- OUTSIDE RECORDS SUMMARY | 2023-11-25 17:58 | XMS_ITS | Encounter Summary ---
Author Organization [facility] Address [address] [place] [address] Care Team Providers Care Paper Mill Superintendent Name Role Phone Elsewhere, Pcp Primary Care Provider Unavailabl e Reason for Referral * Physical Therapy (Routine) - Authorized Specialty Diagnoses / Procedures Referred By Ye lund Referred To Contact Diagnoses Pain Pelvic Male Spasm Muscle Procedures PT Ongoing treatment Corrine Lewis P.A.-C., M.S. [address] [place] [phone] Phone: tel: fax: [facility] Referral ID Status Reason Start Date Expiration Date V isits Requested Visits Authorized [id number] Authorized 08/18/2023 02/07/2024 12 12 Reason for Visit * Physical Therapy (Routine) - Closed Specialty Diagnoses / Procedures Referred By Ye lund Referred To Contact Diagnoses Pain Pelvic Male Procedures PT or OT eval and treat (first available) Corrine Lewis P.A.-C., M.S. [address] [place] [phone] Phone: tel: fax: [facility] Referral ID Status Reason Start Date Expiration Date Visits Re quested Visits Authorized [id number] Closed 06/02/2023 06/01/2024 1 1 Encounter Details Date Type Department Care Team (Latest Contact Info) Description 08/18/2023 10:30 AM CDT Comprehensive Visit Department of Physical Medicine and Rehabilitation in [place], [place] [address] [place] [address] [phone] Corrine Lewis P.A.-C., M.S. [address] [place] [phone] Bel Rojo P.T., D.P.T., OCS [address] [place] [phone] Spasm Muscle (Primary Dx); Pain Pelvic Male Social History Tobacco Use Types Packs/Day Years Used Date Smoking Tobacco: Never Smokeless Tobacco: Never Alcohol Use Standard Drinks/Week Comments Yes 1 (1 standard drink = 0.6 oz pur e alcohol) [facility] Utilities Answer Date Recorded In the past 12 months has e electric, gas, oil, or water [employer] threatened to shut off services in your [...] 0 07/07/2023 [facility] - Occupational Stress Questionnaire Answer [...] your living situation today? I have a [employer] place to live 05/22/2023 Education Answer Date Recorded What is the highest level of school you have completed or the highest degree you have received? Some college, no degree 05/24/2020 Sex and Gender Information Value Date Recorded Sex Assigned at Male 10/29/2020 12:38 PM CDT Legal Sex Male 1:45 PM BROOMMAKER Gender Identity Male 07/15/2019 8:59 AM CDT Sexual Orientation Straight 07/15/2019 8: 59 AM CDT documented as of this encounter Consult Notes * Bel Rojo P.T., D.P.T., [facility] - 08/18/2023 10:30 AM [...] Male Reason for Referral: pelvic pain Payor: [facility] [place] CARE / Plan: [facility] [employer]UE [email or web address] HMO / Product Type: Medicaid HMO / Red M[employer] Visit Count: 1 PT Next Certification Date: [...] exercises. He is playing softball, pickleball and IR [employer]yxe. Pelvic floor muscle functioning/screen: ORTHOPEDIC: He has [...] Patient consents to evaluation with no additional psychiatric therapist present. Explained each step of pelvic floor [...] noted in objective. Self Care/Home Management: -See Tysdo below Home Exercise Program/ Education: Access Code: [email or web address] URL: [email or web address] Date: 08/18/2023 Prepared by: Carie Rojo Program [...] following patient education materials were provided today: [employer]: Paper copy provided to patient Assessment Clinical [...] Appointment Department of Orthopedic Surgery in [address] [phone] Ahsan Talbert M.D., Ph.D. [address] [place] [phone] 11/29/2023 10:00 AM CDT Procedure visit Department of Urology in [address] [phone] Kate Egan P.A.-C. [address] [place] [phone] 01/06/2024 9:15 AM BROOMMAKER Office Visit Department of Orthopedic Surgery in [address] [phone] Jose Crawford M.D. [address] [place] [phone] 01/27/2024 4:30 PM BROOMMAKER Clinical Communication Virtual Review in [address] [phone] 01/30/2024 3:30 PM BROOMMAKER Telemedicine Department of Urology in [address] [phone] Kate Egan P.A.-C. [address] [place] [phone] documented as of this encounter Visit Diagnoses Diagnosis Spasm Muscle- Primary Pain Pelvic Male documented in this encounter Additional Health Concerns Assessment Noted Time PHQ-9 Depression Total Score: 5 07/07/19 24 9:17 PM CDT documented as of this encounter Care Teams Paper Mill Superintendent Relationship Specialty Start Date End Date Elsewhere, Pcp PCP - General Internal Medicine 05/22/18 documented as of this encounter
--- OUTSIDE RECORDS SUMMARY | 2023-11-25 17:58 | XMS_ITS | Encounter Summary ---
Author Organization [facility] Address [address] [place] [address] Care Team Providers Care Apparel Manufacture Instructor Name Role Phone Elsewhere, Pcp Primary Care Provider Unavailabl e Reason for Referral * Outpatient (Routine) - Closed Specialty Diagnoses / Procedures Referred By Contac t Referred To Contact Social Work Diagnoses Pain Hip Bilateral Candida Lucero P.A.-C. [address] [place] [phone] Phone: tel: fax: [facility] Referral ID Status Reason Start Date Expiration Date Visits Re quested Visits Authorized [id number] Closed 09/15/2023 03/16/2025 1 1 Reason for Visit * Outpatient (Routine) - Closed Specialty Diagnoses / Procedures Referred By Contloraine lund Referred To Contact Sports Medicine Candida Lucero P.A.-C. [address] [place] [phone] Phone: tel: fax: [facility] Referral ID Status Reason Start Date Expiration Date Visits Re quested Visits Authorized [id number] Closed 07/11/2023 01/09/2025 1 1 Encounter Details Date Type Department Care Team (Late st Contact Info) Description 09/15/2023 8:00 AM CDT Telemedicine Department of Sports Medicine in [place], [place] [address] [place] [phone] Ahsan Talbert M.D., Ph.D. [address] [place] [address], [place] [phone] Pain Hip Bilateral (Primary Dx) Social History Tobacco Use Types Packs/Day Years Used Date Smoking Tobacco: Never Smokeless Tobacco: Never Alcohol Use Standard Drinks/Week Comments Yes 1 (1 standard drink = 0.6 oz pur e alcohol) [facility] Utilities Answer Date Recorded In the past 12 months has e [employer], gas, oil, or water [employer] threatened to shut off services in your [...] How often do you attend chur or worship services? 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 [address] [place] [phone] 11/29/2023 10:00 AM CDT Procedure visit Department of Urology in [address] [phone] Kate Egan P.A.-C. [address] [place] [phone] 01/06/2024 9:15 AM PHARMACEUTICAL SALES SPECIALIST Office Visit Department of Orthopedic Surgery in [address] [phone] Jose Crawford M.D. [address] [place] [phone] 01/27/2024 4:30 PM PHARMACEUTICAL SALES SPECIALIST Clinical Communication Virtual Review in [place], [place] 200 [place] [phone] 01/30/2024 3:30 PM PHARMACEUTICAL SALES SPECIALIST Telemedicine Department of Urology in [place], [place] [address] [place] [phone] Kate Egan P.A.-C. [address] [place] [phone] Scheduled Referrals Name Type Priority Associated Diagnoses [...] documented as of this encounter Care Teams Apparel Manufacture Instructor Relationship Specialty Start Date End Date Elsewhere, Pcp PCP - General Internal Medicine 05/22/18 documented as of this encounter
--- OUTSIDE RECORDS SUMMARY | 2023-11-25 17:58 | XMS_ITS | Encounter Summary ---
Author Organization [facility] Address [address] [place] [address] Care Team Providers Care Lithopone Charger Name Role Phone Elsewhere, Pcp Primary Care Provider Unavailabl e Reason for Visit * Outpatient (Routine) - Closed Specialty Diagnoses / Procedures Referred By Ye lund Referred To Contact Diagnoses Pain Hip Left Pain Hip Right Procedures ORS US-Guided aspiration/injection Candida Lucero P.A.-C. [address] [place] [phone] Phone: tel: fax: [facility] [place] Referral ID Status Reason Start Date Expiration Date Visits Re quested Visits Authorized [id number] Closed 07/08/2023 07/07/2024 1 1 Encounter Details Date Type Department Care Team (Late st Contact Info) Description 08/31/2023 4:00 PM CDT Procedure visit Department of Sports Medicine in [place], [place] [address] [place] [phone] Armin Colvin M.D. [address] [place] [phone] Pain Hip Left; Pain Hip Right Social History Tobacco Use Types Packs/Day Years Used Date Smoking Tobacco: Never Smokeless Tobacco: Never Alcohol Use Standard Drinks/Week Comments Yes 1 (1 standard drink = 0.6 oz pur e alcohol) [facility] Utilities Answer Date Recorded In [...] week 2022 How often do you attend [facility] or zoroastrianism services? More than 4 times per year [...] Answer Date Recorded PHQ-2 Score 0 07/07/2023 [facility] of Occupat ional Health - Occupational [...] your living situation today? I have a [facility] place to live 05/22/2023 Education Answer Date Recorded What is the highest level of school you have completed or the highest degree you have received? Some college, no degree 05/24/2020 Sex and Gender Information Value Date Recorded Sex Assigned at Male 10/29/2020 12:38 PM CDT Legal Sex Male 1:45 PM ENVIRONMENTAL COMPLIANCE OFFICER Gender Identity Male 07/15/2019 8:59 AM CDT Sexual Orientation Straight 07/15/2019 8: 59 AM CDT documented as of this encounter Patient Instructions * Patient Instructions* Monica Castellanos M.S., Love.Brandin., A.T.C. - 08/31/2023 4:00 PM CDT Diagnostic (Anesthetic-Only) Injection If questions or concerns, please call: [facility] Sports Medicine [facility] at [place] Sports Medicine [...] use heat for 24 hours. Injection Diary: [facility] Please bring this with you to your next appointment or send it to the physician who ordered your injection. Use the following tables. [place] the pain level at the times indicated. [...] gel were used. Right hip joint Machine: [employer] [id number] Transducer: 2-14 MHz linear array Patient [...] excellent arthrogram effect. Left hip joint Machine: [employer] RS85 Transducer: 2-14 MHz linear array Patient [...] Boyce Barriers to learning: None Preferred language: Haitian Learning preferences include: Seeing and doing. Discussed: [...] local infiltration Images have been archived in Factyle: click the 'Dept Filter' button in Fact[employer], then the 'Clear (Show All)' button, then OK. documented in this encounter Plan of Treatment Upcoming Encounters Date Type Department Care Team (Late st Contact Info) Description 11/29/2023 8:00 AM CDT Appointment Department of Orthopedic Surgery in [address] [phone] Ahsan Talbert M.D., Ph.D. [address] [place] [phone] 11/29/2023 10:00 AM CDT Procedure visit Department of Urology in [address] [phone] Kate Egan P.A.-C. [address] [place] [phone] 01/06/2024 9:15 AM ENVIRONMENTAL COMPLIANCE OFFICER Office Visit Department of Orthopedic Surgery in [address] [phone] Jose Crawford M.D. [address] [place] [phone] 01/27/2024 4:30 PM ENVIRONMENTAL COMPLIANCE OFFICER Clinical Communication Virtual Review in [address] [phone] 01/30/2024 3:30 PM ENVIRONMENTAL COMPLIANCE OFFICER Telemedicine Department of Urology in [address] [phone] Kate Egan P.A.-CMackenzie [address] [place] [phone] documented as of this encounter Procedures Procedure Name Priority Date/Time Associated Diagnosis Comments MO ARTHCS ASP/INJ MJR JT W US Routine 08/31/2023 4:00 PM CDT Pain Hip Left Pain Hip Right documented in this encounter Results * MO ARTHCS ASP/INJ MJR JT W US (08/31/2023 [...] documented as of this encounter Care Teams Lithopone Charger Relationship Specialty Start Date End Date Elsewhere, Pcp PCP - General Internal Medicine 05/22/18 documented as of this encounter
--- OUTSIDE RECORDS SUMMARY | 2023-11-25 17:58 | XMS_ITS | Encounter Summary ---
Author Organization [facility] Address [address] [place] [address] Care Team Providers Care Hydrator Name Role Phone Elsewhere, Pcp Primary Care Provider Unavailabl e Reason for Visit * Outpatient (Routine) - Closed Specialty Diagnoses / Procedures Referred By Ye lund Referred To Contact Social Work Diagnoses Pain Hip Bilateral Candida Lucero P.A.-C. [address] [place] [phone] Phone: tel: fax: [facility] Referral ID Status Reason Start Date Expiration Date Visits Re quested Visits Authorized [id number] Closed 09/15/2023 03/16/2025 1 1 Encounter Details Date Type Department Care Team (Late Contact Info) Description 09/19/2023 11:00 AM CDT Virtual Visit Department of Social Work in [place], [place] [address] [place] [phone] Candida Lucero P.A.-CMackenzie [address] [place] [address] [phone] Aisha Foster M.SSarah, L.I.C.S.W. [address] [place] [phone] Pain Hip Bilateral Social History Tobacco Use Types Packs/Day Years Used Date Smoking Tobacco: Never Smokeless Tobacco: Never Alcohol Use Standard Drinks/Week Comments Yes 1 (1 standard drink = 0.6 oz pur e alcohol) [facility] Utilities Answer Date Recorded In the past 12 months has e [employer], gas, oil, or water [employer] threatened to shut off services in your [...] How often do you attend chur or congregational services? More than 4 times [...] Answer Date Recorded PHQ-2 Score 0 07/07/2023 [facility] - [facility] Stress Questionnaire Answer [...] your living situation today? I have a [facility] place to live 05/22/2023 Education Answer Date Recorded What is the highest level of school you have completed or the highest degree you have received? Some college, no degree 05/24/2020 Sex and Gender Information Value Date Recorded Sex Assigned at Male 10/29/2020 12:38 PM CDT Legal Sex Male 1:45 PM PSYCHOLOGISTS Gender Identity Male 07/15/2019 8:59 AM CDT [...] CDT Appointment Department of Orthopedic Surgery in [address] [phone] Ahsan Talbert M.D., Ph.D. [address] [place] [phone] 11/29/2023 10:00 AM CDT Procedure visit Department of Urology in [address] [phone] Kate Eagn P.A.-CMackenzie [address] [place] [phone] 01/06/2024 9:15 AM PSYCHOLOGISTS Office Visit Department of Orthopedic Surgery in [address] [phone] Jose Crawford M.D. [address] [place] [phone] 01/27/2024 4:30 PM PSYCHOLOGISTS Clinical Communication Virtual Review in [place], [place] 200 [place] [address] 01/30/2024 3:30 PM PSYCHOLOGISTS Telemedicine Department of Urology in [place], [place] [address] [place] [phone] Kate Egan P.A.-C. [address] [place] [address] documented as of this encounter Visit Diagnoses Diagnosis Pain Hip Bilateral documented in this encounter Additional Health Concerns Assessment Noted Time PHQ-9 Depression Total Score: 5 07/07/19 24 9:17 PM CDT documented as of this encounter Care Teams Hydrator Relationship Specialty Start Date End Date Elsewhere, Pcp PCP - General Internal Medicine 05/22/18 documented as of this encounter
--- OUTSIDE RECORDS SUMMARY | 2023-11-25 17:58 | XMS_ITS | Encounter Summary ---
Author Organization [facility] Address [address] [place] [address] Care Team Providers Care Bonbon Cream Warmer Name Role Phone Elsewhere, Pcp Primary Care Provider Unavailabl e Encounter Details Date Type Department Care Team (Latest Contact Info) Description 09/19/2023 Documentation RST RO Aisha Cleveland M.S.W., L.I.C.S.W. [address] [place] [address] Social History Tobacco Use Types Packs/Day Years Used Date Smoking Tobacco: Never Smokeless Tobacco: Never Alcohol Use Standard Drinks/Week Comments Yes 1 (1 standard drink = 0.6 oz pur e alcohol) [facility] Utilities Answer Date Recorded In the past 12 months has e [email or web address], gas, oil, or water [employer] threatened to shut off services in your [...] How often do you attend chur or druze services? More than 4 times per year [...] Score 0 07/07/2023 [facility] of Occupat ional Health - Occupational [...] your living situation today? I have a [facility] place to live 05/22/2023 Education Answer Date Recorded What is the highest level of school you have completed or the highest degree you have received? Some college, no degree 05/24/2020 Sex and Gender Information Value Date Recorded Sex Assigned at Male 10/29/2020 12:38 PM CDT Legal Sex Male 1:45 PM STUDENT NURSE Gender Identity Male 07/15/2019 8:59 AM CDT Sexual Orientation Straight 07/15/2019 8: 59 AM CDT documented as of this encounter Consult Notes * Aisha Foster L.I.C.S.W., M.S.W. - 09/19/2023 11:10 AM CDT SUBJECTIVE Patient is a 23-year-old single male from [place], [place] ([place], [place]). Patient was referred to the lobby [...] it has been approved by his insurance. mill worker called patient. Patient reports that he [...] circulation being cut off once in case. mill worker re-directed patient back to Dr. Talbert in Orthopedic Surgery for any medical questions concerning cast. Patient also states that the self-catheterizes three times daily. Patient reports that his mother works. mill worker mill worker did gently advise patient that the type of ass istance he is looking for is considered unskilled care, i.e. personal driver services which arenot reimbursed by health insurance. mill worker recommended that patient call [facility] ([phone] & [facility] to inquire about services. mill worker informed patient that psychologist social would send portal message with contact numbers for [facility] ([phone] & [facility] along with questions he should ask each agency. Patient does not think that he will be able to afford personal driver (FORGE HELPER) services; unfortunately, this wouldbe patient's only option. Health insurance does not reimburse personal driver (FORGE HELPER) services. mill worker also mailed pamphlets for [facility] & [facility]. Pamphlets describe the personal driver (FORGE HELPER) services that they provide. Please see plan below. CHIEF COMPLAINT / REASON FOR VISIT patient was referred to the [facility] by Candida Christian PA-C, midlevel in Orthopedic Surgery for support/help following adult hip spica case placement. HISTORY OF PRESENT ILLNESS #1 Left hip pain with likely MARLENI #2 Status post right hip arthroscopy with Dr. Haines on 02/13/2020 Please see EMR for further details of patient's past medical history. OBJECTIVE INSURANCE: [facility] HMO = [facility] MEDICAID PLAN = SINGLE PAYOR SOURCE ASSESSMENT / PLAN ASSESSMENT Patient is a 23-year-old single male from [place], [place] ([place], [place]). Patient is cooperative, forthcoming and appears [...] perceptual disturbance. Patient was referred to the [facility] by Candida Christian PA-C, midlevel in Orthopedic [...] it has been approved by his insurance. mill worker called patient. Patient reports that he [...] circulation being cut off once in case. mill worker re-directed patient back to Dr. Talbert in Orthopedic Surgery for any medical questions concerning cast. Patient also states that the self-catheterizes three times daily. Patient reports that his mother works. mill worker mill worker did gently advise patient that the type of ass istance he is looking for is considered unskilled care, i.e. personal driver services which arenot reimbursed by health insurance. mill worker recommended that patient call [facility] ([phone] & [facility] to inquire about services. mill worker informed patient that psychologist social would send portal message with contact numbers for [facility] ([phone] & [facility] along with questions he should ask each agency. Patient does not think that he will be able to afford personal driver (FORGE HELPER) services; unfortunately, this wouldbe patient's only option. Health insurance does not reimburse personal driver (FORGE HELPER) services. mill worker also mailed pamphlets for [facility] & [facility]. Pamphlets describe the personal driver (FORGE HELPER) services that they provide. Please see plan below. PLAN CAST PLACEMENT: Patient to have Spica cast placed on 11/07/23 at 3:30 PM. HOME HEALTH AGENCIES: Patient will call [facility] & [facility] to inquire about cost ofpersonal administrator health care facility (FORGE HELPER) services. Patient has been informed that personal driver (FORGE HELPER) services are not reimbursed by health insurance and will be an kza-ot-rzumco cost to patient. PORTAL MESSAGE: mill worker sent portal message with the following information: [facility] [email or web address] [facility] [email or web address] I recommend that you ask to be connected to the respective offices closest to [place], [place]. medicaid billing clerk (FORGE HELPER) services are not reimbursed by health insurance and are an arc-ds-napekn payment for the patient. The above listed home health agencies accept zkz-la-mjingv payment for personal driver (FORGE HELPER) services; however, you will need to call and inquire about staffing availability;whether they require a minimum number of hours per day to staff case; and potential start of care date. You will need to inquire as to whether the respective offices service [place], [place]. This psychologist social remains available to assist patient with any other issues of concern and apprised patient of same. Leo Bertrand, M.S.W. 09/19/2023 documented in this encounter Plan of Treatment Upcoming Encounters Date Type Department Care Team (Late st Contact Info) Description 11/29/2023 8:00 AM CDT Appointment Department of Orthopedic Surgery in [place], [place] [address] [place] [address] Ahsan Mixon M.D., Ph.D. [address] [place] [phone] 11/29/2023 10:00 AM CDT Procedure visit Department of Urology in [address] [phone] Kate Egan P.A.-C. [address] [place] [phone] 01/06/2024 9:15 AM STUDENT NURSE Office Visit Department of Orthopedic Surgery in [address] [phone] Jose Crawford M.D. [address] [place] [phone] 01/27/2024 4:30 PM STUDENT NURSE Clinical Communication Virtual Review in [place], [place] 200 [place] [address] 01/30/2024 3:30 PM STUDENT NURSE Telemedicine Department of Urology in [address] [phone] Kate Egan P.A.-C. [address] [place] [phone] documented as of this encounter Visit Diagnoses [...]
--- OUTSIDE RECORDS SUMMARY | 2023-11-25 17:58 | XMS_ITS | Encounter Summary ---
Author Organization [facility] Address [address] [place] [address] Care Team Providers Care Set Illustrator Name Role Phone Elsewhere, Pcp Primary Care Provider Unavailabl e Reason for Referral * MRI/CAT/PET Scan (Routine) - Closed Specialty Diagnoses / Procedures Referred By Contac t Referred To Contact Radiology Diagnoses Pain Hip Right Procedures MR Hip Arthrogram Right Candida Lucero P.A.-C. [address] [place] [phone] Phone: tel: fax: [facility] Referral ID Status Reason Start Date Expiration Date Visits Re quested Visits Authorized [id number] Closed 10/24/2023 10/23/2024 1 1 * Outpatient (Routine) - Closed Specialty Diagnoses / Procedures Referred By Contac t Referred To Contact Diagnoses Pain Hip Right Procedures [place] Hip Arthrogram Injection Right Candida Lucero P.A.-Kathya 200 [place] [address] Phone: tel: fax: [facility] Referral ID Status Reason Start Date Expiration Date Visits Re quested Visits Authorized [id number] Closed 10/24/2023 10/23/2024 1 1 Reason for Visit * Appointment Request (Routine) - Closed Specialty Diagnoses / Procedures Referred By Contac t Referred To Contact Sports Medicine Diagnoses Pain Hip Bilateral Referral ID Status Reason Start Date Expiration Date Visits Re quested Visits Authorized [id number] Closed 10/07/2023 10/06/2024 1 1 Encounter Details Date Type Department Care Team (Late st Contact Info) Description 10/24/2023 1:15 PM CDT Telemedicine Department of Sports Medicine in [place], [place] [address] [place] [address] Ahsan Talbert M.D., Ph.D. [address] [place] [phone] Pain Hip Right (Primary Dx) Social History Tobacco Use Types Packs/Day Years Used Date Smoking Tobacco: Never Smokeless Tobacco: Never Alcohol Use Standard Drinks/Week Comments Yes 1 (1 standard drink = 0.6 oz pur e alcohol) [facility] Utilities Answer Date Recorded In the past 12 months has e [employer], gas, oil, or water [employer] threatened to shut off services in your [...] week 2022 How often do you attend [facility] or rastafarian services? More than 4 times [...] Answer Date Recorded PHQ-2 Score 0 07/07/2023 [facility] of Occupat ional Health - Occupational Stress [...] your living situation today? I have a [facility] place to live 05/22/2023 Education Answer Date Recorded What is the highest level of school you have completed or the highest degree you have received? Some college, no degree 05/24/2020 Sex and Gender Information Value Date Recorded Sex Assigned at Male 10/29/2020 12:38 PM CDT Legal Sex Male 1:45 PM FOOD PACKER Gender Identity Male 07/15/2019 8:59 AM CDT [...] He did have a second opinion at [place] where they did discuss a GUILLERMO. PATIENT [...] a proposed GUILLERMO with the group at [place]. For the time being, he would like [...] CDT Appointment Department of Orthopedic Surgery in [place], [place] [address] [place] [address] Ahsan Talbert M.D., Ph.D. [address] [place] [phone] 11/29/2023 10:00 AM CDT Procedure visit Department of Urology in [place], [place] [address] [place] [phone] Kate Egan P.A.-C. [address] [place] [phone] 01/06/2024 9:15 AM FOOD PACKER Office Visit Department of Orthopedic Surgery in [place], [place] [address] [place] [phone] Jose Crawford M.D. [address] [place] [phone] 01/27/2024 4:30 PM FOOD PACKER Clinical Communication Virtual Review in [place], [place] 200 [place] [address] 01/30/2024 3:30 PM FOOD PACKER Telemedicine Department of Urology in [place], [place] [address] [place] [phone] Kate Egan P.A.-C. [address] [place] [phone] documented as of this encounter Results * [...] prior labral repair versus recurrent tear. 2. ??Ngiq-jx-qxsdlwgl chondromalacia about the right lateral hip. 3. [...] from prior labral repairversus recurrent tear. 2. Fkvv-ss-sxuffetf chondromalacia about the right lateral hip. 3. [...] documented as of this encounter Care Teams Set Illustrator Relationship Specialty Start Date End Date Elsewhere, Pcp PCP - General Internal Medicine 05/22/18 documented as of this encounter
--- OUTSIDE RECORDS SUMMARY | 2023-11-25 17:58 | XMS_ITS | Encounter Summary ---
Author Organization [facility] Address [address] [place] [address] Care Team Providers Care Cpr Instructor Name Role Phone Elsewhere, Pcp Primary Care Provider Unavailabl e Reason for Visit * Reason Onset Date Comments Pre-visit Intake 09/13/2023 Encounter Details Date Type Department Care Team (Latest Contact Info) Description 09/13/2023 3:45 PM CDT Clinical Communication Virtual Review in [place], [place] 200 [place] [address] Pre-visit Intake Social History Tobacco Use Types Packs/Day Years Used Date Smoking Tobacco: Never Smokeless Tobacco: Never Alcohol Use Standard Drinks/Week Comments Yes 1 (1 standard drink = 0.6 oz pur e alcohol) [facility] Utilities Answer Date Recorded In the past 12 months has e [employer], gas, oil, or water [employer] threatened to shut off services in your [...] How often do you attend chur or mandaen services? More than 4 times [...] your living situation today? I have a [facility] place to live 05/22/2023 Education Answer Date Recorded What is the highest level of school you have completed or the highest degree you have received? Some college, no degree 05/24/2020 Sex and Gender Information Value Date Recorded Sex Assigned at Male 10/29/2020 12:38 PM CDT Legal Sex Male 1:45 PM BROWNFIELD PROGRAM COORDINATOR Gender Identity Male 07/15/2019 8:59 AM CDT Sexual Orientation Straight 07/15/2019 8: 59 AM CDT documented as of this encounter Plan of Treatment Upcoming Encounters Date Type Department Care Team (Late st Contact Info) Description 11/29/2023 8:00 AM CDT Appointment Department of Orthopedic Surgery in [place], [place] [address] [place] [phone] Ahsan Talbert M.D., Ph.D. [address] [place] [phone] 11/29/2023 10:00 AM CDT Procedure visit Department of Urology in [place], [place] [address] [place] [phone] Kate Egan P.A.-C. [address] [place] [phone] 01/06/2024 9:15 AM BROWNFIELD PROGRAM COORDINATOR Office Visit Department of Orthopedic Surgery in [address] [phone] Jose Crawford M.D. [address] [place] [phone] 01/27/2024 4:30 PM BROWNFIELD PROGRAM COORDINATOR Clinical Communication Virtual Review in [place], [place] 200 [place] [phone] 01/30/2024 3:30 PM BROWNFIELD PROGRAM COORDINATOR Telemedicine Department of Urology in [address] [phone] Kate Egan P.A.-C. [address] [place] [phone] documented as of this encounter Visit Diagnoses Not on filedocumented in this encounter Additional Health Concerns Assessment Noted Time PHQ-9 Depression Total Score: 5 07/07/19 24 9:17 PM CDT documented as of this encounter Care Teams Cpr Instructor Relationship Specialty Start Date End Date Elsewhere, Pcp PCP - General Internal Medicine 05/22/18 documented as of this encounter
--- OUTSIDE RECORDS SUMMARY | 2023-11-25 17:59 | XMS_ITS | Encounter Summary ---
Author Organization [facility] Address [address], [place] [address] Care Team Providers Care Disability Insurance Claim Examiner Name Role Phone Eliana Guerra MD Primary Care Provider [phone] Encounter Details Date Type Department Care Team (Latest Contact Info) Description 09/12/2023 6:00 AM CDT - 09/12/2023 11:59 PM CDT Hospital Encounter Security Contact - None Anurag Hoffman MD [address] [place] [id number] Discharge Disposition: Home Social History Tobacco Use [...] MITOGEN >10.000 IU/mL 09/13/2023 11:45 AM CDT [facility] Blood Venipuncture / Unknown 09/12/2023 9:26 AM CDT 09/12/2023 9:34 AM CDT Anurag Hoffman MD LAB_1 Performing Organization Address [facility] Co de Phone Number [facility] [address] [place] [address] * TB QuantiFERON Gold Plus TB2 (09/12/2023 9:26 AM CDT) TB2 0.010 IU/mL 09/13/2023 11:45 AM CDT [facility] Blood Venipuncture / Unknown 09/12/2023 9:26 AM CDT 09/12/2023 9:34 AM CDT Anurag Hoffman MD LAB_1 Performing Organization Address [facility] Phone Number [facility] [address] [place] [address] * TB QuantiFERON Gold Plus TB1 (09/12/2023 9:26 AM CDT) TB1 0.015 IU/mL 09/13/2023 11:45 AM CDT [facility] Blood Venipuncture / Unknown 09/12/2023 9:26 AM CDT 09/12/2023 9:34 AM CDT Anurag Hoffman MD LAB_1 Performing Organization Address [facility] de Phone Number [facility] [address] [place] [address] * TB QuantiFERON Gold Plus NIL (09/12/2023 9:26 AM CDT) TB QuantiFERON Gold Plus Negative, M. tuberculosis Infection NOT likely Negative, M. tuberculosis Infection NOT likely 09/13/2023 11:47 AM CDT [facility] NIL 0.001 IU/mL 09/13/2023 11:47 AM CDT [facility] TB1-NIL 0.02 IU/mL 09/13/2023 11:47 AM CDT [facility] TB2-NIL 0.01 IU/mL 09/13/2023 11:47 AM CDT [facility] Mitogen-NIL 10.00 IU/mL 09/13/2023 11:47 AM CDT [facility] Blood Venipuncture / Unknown 09/12/2023 9:26 AM CDT 09/12/2023 9:34 AM CDT Narrative [facility] - 09/13/2023 11:47 AM CDT The [...] immune response. For more information refer to: https://www.cdc.gov/mmwr/preview/mmwrhtml/rm9159f9.htm. Anurag Hoffman MD LAB_1 [facility] [address] documented in this encounter Visit Diagnoses Not on filedocumented in this encounter Care Teams Disability Insurance Claim Examiner Relationship Specialty Start Date End Date Eliana Guerra MD [address] [place] [address] PCP - General Family Practice 12/04/19 documented as of this encounter
--- OUTSIDE RECORDS SUMMARY | 2023-11-25 17:59 | XMS_ITS | Data Portability ---
Author Organization [place] [facility] Address [address] [address] Care Team Providers Care Cross Country Truck Driver Name Role Phone TISHA CALDERON Referring Provider [...] I had the discussion with the radiologist retread technician today. Risk of complications include disease/symptom [...] contrast 2020 0[address] [facility] [place], [facility] [address] [facility], [place], [address], 11:48:08 Medication Orders None recorded. Patient TargetsNo targets recorded. Patient Instructions Encounter Date Encounter Id Patient Instructions Last Modified By Organization Details Last Modified Time 09/18/2020 [id number] Self Care for TMD Not availab le [...] disc disorder of temporom andibula r joint [id number] Active 2020 Bilateral DD w reduction and intermitt ent [facility] [place] [address] [facility] [address], [place], [place], [address] [place] [address], [facility] 1 10:14:10 Arthralg ia of temporom andibula r joint 06478072 Active 2020 TMJs MONE PEREZ BDS, [place] [address] [facility] [address], [place], [place], [address] [place] [address], [facility] 1 05:09:27 Myofasci al pain 193181225 Active 2020 [place] and cervical muscles [facility] [place] [address] [facility] [address], [place], [place], [address] [place] [address], [facility] 1 05:10:21 Tension- type headache 418172957 Active 2020 MONE PEREZ BDS, [place] [address] [facility] [address], [place], [place], [address] [place] [address], [facility] 1 05:10:27 Bilatera l tinnitus 65901396606 02 Active 2020 MONE PEREZ BDS, MS [address] [facility] [address], [place], [place], [address] [place] [address], [facility] 1 05:10:30 Bilatera l crepitus of temporom andibula r joints on opening 778688713 Active 2020 MONE PEREZ BDS, [place] [address] [facility] [address], [place], [place], [address] [place] [address], 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 1 05:14:29 Problem Notes None recorded. Procedures Surgical History Date Name Laterality Status Provider Name and Address Organization Details Recorded Time 1 Oral appliance completed Silvestre Carey [facility] 11/20/2020 12:30:14 operation on hip joint completed Sydnie Tamayo [facility] 09/18/2020 09:35:14 [...] [degF] 120 mm[Hg] 80 mm[Hg] Sydnie Tamayo [facility] 09:32:33 Date Recorded Body height Body temperature Provider N ashley and Address Organization Details Last Updated DateTime 11/20/2020 185.42 cm 97.3 [degF] Silvestre Carey [facility] 11/20/2020 12:25:26 Social History Question Answer Notes LastModified by Organizat ion Details LastModified Time Do You Feel Stressed (tense, Restless, Nervous, Or Anxious, Or Unable To Sleep At Night)? 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69 Arthralgia of temporomandibular joint 92153341 M26.623 Articular disc disorder of temporomandibular joint 41460665 M26.633 Health Concerns Section Related Observation LastModified by Organization Detai ls LastModified Time None Recorded Concern Status LastModified by Organization Details LastModified Time None Recorded Advance Directives Directive None Recorded Payers Encounter Date Sequence Insurance Name Policy Number Policy Candelaria Covered Member ID Candelaria Member ID Guarantor Name 09/18/2020 1 [facility] (MEDICAID REPLACEMENT - HMO) [facility] Chetan Boyce [id number] Paramjit Boyce 11/20/[address] [facility] (MEDICAID REPLACEMENT - HMO) [facility] Chetan Boyce [id number] Paramjit Boyce Notes Date Note Type [...] his musculoskelatal hypermobility. Paramjit has seen a crester when he was 17, however, symptoms have been worse now. 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 MONE PEREZ BDS, MS [address] [facility] [address], [place], [address], [facility] 09/24/2020 05:25:11 [...] a metal bar in ihis chest. MONE PERZE BDS, MS [address] [facility] [address], [place], [address], [facility] 11/24/2020 07:16:12
--- OUTSIDE RECORDS SUMMARY | 2023-11-25 17:59 | XMS_ITS | Patient Health Record ---
Author Organization [facility] Address [address] 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 Plan Of Treatment Pending Test Test Name Order Date C-Reactive Protein (CRP) (CRP) 8 Insurance Providers Payer Name Payer Address Payer Phone Subscriber Number Group Number Insured Name Patient Relationship to Insured Coverage Start Date Coverage End Date BLUE PLUS PMAP-20 19 [address] [address] [place] [address] [id number] [facility] Paramjit Boyce Self - patient is the insured 9 Medical (General) History Medical History History ICD Code Syndromes/anomalies: Connective tissue d isorder Other: Pectus excavatum, Acquired pectus carinatum Surgical History Surgery Date(Month/Year) Daja procedure for pectus excavatum 10/08 10/25
--- OUTSIDE RECORDS SUMMARY | 2023-11-25 17:59 | XMS_ITS | Clinical Summary ---
Author Organization [facility] Address [address], [place] [address] Care Team Providers Care Burrer Machine Name Role Phone Eliana Guerra MD Primary Care Provider [phone] Source Comments You are receiving this document as you are listed as the primary care provider,follow-up provider, or the patient has been referred to you for consultation.This is in compliance with the Medicare and[facility] EHR Incentive Program,which states Providers who [...] MITOGEN >10.000 IU/mL 09/13/2023 11:45 AM CDT [facility] Blood Venipuncture / Unknown 09/12/2023 9:26 AM CDT 09/12/2023 9:34 AM CDT Anurag Hoffman MD LAB_1 Performing Organization Address [facility] de Phone Number [facility] [address] [place] [address] * TB QuantiFERON Gold Plus TB2 (09/12/2023 9:26 AM CDT) TB2 0.010 IU/mL 09/13/2023 11:45 AM CDT [facility] Blood Venipuncture / Unknown 09/12/2023 9:26 AM CDT 09/12/2023 9:34 AM CDT Anurag Hoffman MD LAB_1 Performing Organization Address [facility] Phone Number [facility] [address] [place] [address] * TB QuantiFERON Gold Plus TB1 (09/12/2023 9:26 AM CDT) TB1 0.015 IU/mL 09/13/2023 11:45 AM CDT [facility] Blood Venipuncture / Unknown 09/12/2023 9:26 AM CDT 09/12/2023 9:34 AM CDT Anurag Hoffman MD LAB_1 Performing Organization Address [facility] Phone Number [facility] [address] [place] [address] * TB QuantiFERON Gold Plus NIL (09/12/2023 9:26 AM CDT) TB QuantiFERON Gold Plus Negative, M. tuberculosis Infection NOT likely Negative, M. tuberculosis Infection NOT likely 09/13/2023 11:47 AM CDT [facility] NIL 0.001 IU/mL 09/13/2023 11:47 AM CDT [facility] TB1-NIL 0.02 IU/mL 09/13/2023 11:47 AM CDT [facility] TB2-NIL 0.01 IU/mL 09/13/2023 11:47 AM CDT [facility] Mitogen-NIL 10.00 IU/mL 09/13/2023 11:47 AM CDT [facility] Blood Venipuncture / Unknown 09/12/2023 9:26 AM CDT 09/12/2023 9:34 AM CDT Narrative [facility] - 09/13/2023 11:47 AM CDT The [...] immune response. For more information refer to: https://www.cdc.gov/mmwr/preview/mmwrhtml/jw6866x2.htm. Anurag Hoffman MD LAB_1 [facility] [address] [place] [address], [facility] from Last 3 Months Care Teams Burrer Machine Relationship Specialty Start Date End Date Eliana Guerra MD [address] [place] [address] PCP - General Family Practice 12/04/19
[2023-11-25 18:02] LABS: Chloride* 105 mmol/L (96-114); Potassium* 3.7 mmol/L (3.6-5.1); Sodium* 139 mmol/L (135-149)
[2023-11-25 18:05] LABS: Anion Gap 9 mEq/L (7-15); Blood Urea Nitrogen* 16 mg/dL (5-24); Carbon Dioxide* 25 mmol/L (20-32); Est. Creatinine Clearance* 106.88; Estimated Glomerular Filt Rate 108 ml/min
[2023-11-25 18:06] LABS: Calcium* 9.6 mg/dL (8.4-10.6); Glucose* 96 mg/dL (60-115)
[2023-11-25 18:21] LABS: Strep A DNA Probe* NOT DETECTED (Not Detectd)
[2023-11-25 18:22] LABS: Bilirubin Urine Negative (Negative); Blood Urine 2+ (Negative); Color Urine Yellow (Yellow); Glucose Urine Negative (Negative); Ketones Urine Negative (Negative); Leukocyte Esterase Urine 1+ (Negative); Nitrite Urine Positive (Negative); Protein Urine 2+ (Negative); Specific Gravity Urine 1.025 (1.000-1.030); pH Urine 6.5 (5.0-8.5)
[2023-11-25 18:26] LABS: Appearance Urine Slightly Cloudy (Clear)
[2023-11-25 18:34] LABS: PCR FLU A Negative PCR FLU A (Negative); PCR FLU B Negative PCR FLU B (Negative); PCR RSV Negative PCR RSV (Negative); SARS PCR* Negative SARS-CoV-2 (Negative)
[2023-11-25 18:43] VITALS: BP 130/82; PULSE 102; RESP 16
[2023-11-25] MEDS: cefTRIAXone 1 GM in 0.9 % SODIUM CHLORIDE Mini-bag 100 ML IVPB (18:52)
[2023-11-25 19:00] LABS: Bacteria Urine Moderate; Squamous Epithelial Cell Urine Few (None-Few)
[2023-11-25 19:15] VITALS: BP 126/81; PULSE 103; RESP 16
--- NOTE | 2023-11-25 19:53 | P.IMHP_ITS ---
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 He also reports fairly severe bladder pain. He feels like he has to void constantly even though he has a catheter in place. He is now too weak to stand, walk and transfer. He has had longstanding urinary retention and does self catheterization. Garza catheter was placed November 07 for problems with urinary retention. 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 He is prone to falling and walks with crutches normally. Yesterday he had bilateral arm casts placed at sula. This is to stabilize midcarpal bone instability as well as instability of a tendon to his right thumb. The right arm has a forearm cast with Rahul thumb spica and the left has a long arm cast going up over the elbow to the proximal arm. With these casts on he is unable to safely ambulate with crutches. Prior to placement of the casts he was wearing removable splints. He would take the splints off to walk with crutches and then put them back on again. Even this was difficult for him. On November 06 he had a left hip cast placed at sula for left hip problems which include hip dysplasia, acetabular retroversion and labral tear. This has contributed to his immobility as well. Normally had he wears bilateral AFO. He is unable to get them on because of his other casts that are now placed. He has perineal tendonitis, right greater than left. Review of Systems Narrative: He reports problems with acid reflux, especially last weekend. He has been taking famotidine for this. He has a sense of acid coming up into the back of his throat and causing some discomfort as well. 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, unspecified (ICD-10) Scaphoid fracture ?S62.009A - Unspecified fracture of navicular [scaphoid] bone of unspecified wrist, initial encounter for closed fracture (ICD-10) Klinefelter syndrome ?Q98.4 - Klinefelter syndrome, unspecified (ICD-10) 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 - Pectus excavatum (ICD-10) Contusion of great toe of left foot ?S90.112A - Contusion of left great toe without damage to nail, initial encounter (ICD-10) Chronic patellofemoral pain of left knee ?M25.562 - Pain in left knee (ICD-10) ?G89.29 - Other chronic pain (ICD-10) Tear of triangular fibrocartilage complex (TFCC) of right wrist (~07/2021) ?S63.591A - Other specified sprain of right wrist, initial encounter (ICD-10) Surgical History Status post arthroscopy of hip ?Z98.890 - Other specified postprocedural states (ICD-10) History of carpal tunnel surgery of left wrist (02/02/21) ?Z98.890 - Other specified postprocedural states (ICD-10) Social History (Updated 11/25/23 @ 20:12 by Edgar Lopez MD) Narrative: He lives with his mother. His mother has left for trip to [place] 9 days ago. He is mostly home alone. His father, who has significant disabilities, comes to stay with him at times. He also has therapists and home health who come into the home daily. 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 He has been unable to work recently because of his multiple disabilities. He does not smoke. He drinks alcohol a couple times a week. He occasionally uses cannabis. Smoking Status: Never smoker Do you use any of these nicotine containing products: None Second hand tobacco smoke exposure: No Non-prescribed substance use: denies use Meds Home Medications and Allergies Home Medications ?Medication ?Instructions ?Recorded ?Confirmed ?Type aspirin 81 mg chewable tablet 1 tab PO BID 11/08/23 11/25/23 History cyclobenzaprine 5 mg tablet 5 mg PO 3XD PRN 11/08/23 11/25/23 History diclofenac sodium 1 % topical gel 2 g topical QID 11/08/23 11/25/23 History famotidine 40 mg tablet 40 mg PO DAILY 11/08/23 11/25/23 History Allergies Allergy/AdvReac Type Severity Reaction Status Date / Time No Known Allergies Allergy Verified 11/25/23 16:44 Exam Narrative: Exam Narrative: He is alert and appears in no distress. He gives his own history. Eyes normal. Oropharynx normal. Neck is supple without mass or adenopathy. Respirations are clear to auscultation. Cardiovascular: S1, S2, regular tachycardia. No murmur gallop or rub. Abdomen: Bowel sounds are active. Abdomen is within his left hip cast but has no obvious peritonitis. Somewhat limited examination. External genitalia normal. Uncircumcised male Garza catheter in place. Left upper extremity with long-arm cast. No apparent skin breakdown. Good capillary refill motion and sensation distally. Right arm with forearm cast and good capillary refill, motion and sensation distally. Right lower extremity is normal. Left lower extremity with hip cast encompassing the left thigh. Dist ally he has intact pulses. Bilateral feet and ankles strength testing is notable for mild weakness primarily manifested as weakness in great toe and ankle dorsiflexion bilaterally. Const: Vital Signs, click to edit/add: Vital Signs - 24 hr 11/25/23 16:38 11/25/23 17:30 11/25/23 18:43 Temperature 100.1 F H Pulse Rate 102 H Pulse Rate [Right Pulse Oximeter] 129 H Respiratory Rate 18 16 Blood Pressure 130/82 Blood Pressure [Ri ght Upper Arm] 150/98 H Pulse Oximetry 100 Oxygen Delivery Me thod Room Air Room Air Room Air 11/25/23 19:15 Temperature Pulse Rate 103 H Pulse Rate [Right Pulse Oximeter] Respiratory Rate 16 Blood Pressure 126/81 Blood Pressure [Ri ght Upper Arm] Pulse Oximetry Oxygen Delivery Me thod Room Air Documenting provider has reviewed patient's vital signs: yes Hospitalist - H&P: Result Labs Labs: Short CBC 11/25/23 Range/Units 17:45 WBC 8.06 (4.50-11.00) K/uL Hgb 15.5 (13.5-17.5) gm/dL Hct 44.9 (37.0-53.0) % Plt Count 202 (140-440) K/uL BMP 11/25/23 17:45 Sodium 139 Potassium 3.7 Chloride 105 Carbon Dioxide 25 BUN 16 Creatinine 1.0 Glucose 96 Calcium 9.6 Urine 11/25/23 Range/Units 17:04 Urine Color Yellow (Yellow) Urine Appearance Slightly Cloudy A (Clear) Urine pH 6.5 (5.0-8.5) Ur Specific [place] 1.025 (1.000-1.030) Urine Protein 2+ A (Negative) Urine Glucose (UA) Negative (Negative) Imaging Chest x-ray: Attestation: I have reviewed the pertinent imaging results. (Chest x-ray with no obvious infiltrate, normal heart and vascular structures, and no obvious bony abnormality) Assessment and Plan Assessment and plan (1) Complicated urinary tract infection: Problem comment: Fever, bladder spasms, tachycardia, weakness, loss of appetite likely caused by indwelling Garza catheter. Status: Acute (2) Instability of left hip joint: Problem comment: Hip cast Status: Acute (3) Wrist joint instability: Problem comment: Bilateral arm casts. Unable to stand, transfer or ambulate Status: Acute (4) Kamari-Danlos syndrome: Problem comment: Underlying cause for significant musculoskeletal disabilities Status: Acute (5) Weakness: Problem comment: Acutely due to UTI and chronically due to Kamari-Danlos Status: Acute (6) Malnutrition: Problem comment: Acutely due to illness Status: Acute Plan Patient is admitted to the hospital for treatment of urinary tract infection with IV antibiotics, support for nutrition and hydration as needed, therapy to evaluate disabilities. Probably needs rehab until his casts are removed when he will be able to ambulate independently with crutches Total Time Spent Total Time Spent: Total time spent today is 80 minutes in reviewing past records, coordination of care and discussing with patient other providers ongoing plan of care.
[2023-11-25 20:02] VITALS: BP 124/83; PULSE 103; RESP 16
[2023-11-25 20:41] VITALS: BP 131/76; PULSE 91; RESP 18; TEMP 36.9; O2SAT 94; BMI 21.0
[2023-11-25] MEDS: ASPIRIN 81 MG TAB.CHEW PO (22:39)
[2023-11-25] MEDS: SODIUM CHLORIDE 0.9 % (FLUSH) 10 ML SYRINGE 5 ML IVF (22:39)
[2023-11-25] MEDS: ENOXAPARIN 40 MG/0.4 ML INJ SUBCUT (22:39)
[2023-11-25] MEDS: oxyBUTYnin chloride 5 MG TABLET PO (22:39)
[2023-11-25 22:56] VITALS: BP 140/81; PULSE 80; RESP 18; TEMP 36.6; O2SAT 97
[2023-11-26 03:00] VITALS: BP 131/85; PULSE 66; RESP 18; TEMP 36.6; O2SAT 97
--- NOTE | 2023-11-26 05:15 | PC.NURSE ---
Shift note ([id number]): Patient pleasant, alert and oriented. Remained in bed this shift. Tolerating regular diet. Garza catheter draining slightly cloudy, straw-colored urine. Reported urethral pain rated?5/10. Declined PRN pain medications, reporting pain was tolerable. Aromatherapy patch applied for nausea at 0110.?Reports somewhat helpful. Declined PRN Zofran when offered.
[2023-11-26] MEDS: ACETAMINOPHEN 325 MG TABLET 650 MG PO ×3 (06:34→20:40)
[2023-11-26 08:57] VITALS: BP 130/92; PULSE 84; RESP 18; O2SAT 98
[2023-11-26] MEDS: FAMOTIDINE 20 MG TABLET 40 MG PO (09:09)
[2023-11-26] MEDS: oxyBUTYnin chloride 5 MG TABLET PO ×3 (09:09→21:04)
[2023-11-26] MEDS: ASPIRIN 81 MG TAB.CHEW PO ×2 (09:10→20:46)
[2023-11-26] MEDS: OXYCODONE 5 MG TABLET 2.5 MG PO (09:10)
[2023-11-26] MEDS: polyethylene glycoL 3350 17 GM PACK PO (09:12)
[2023-11-26 11:00] VITALS: BP 138/91; PULSE 83; RESP 18; O2SAT 97
--- NOTE | 2023-11-26 11:24 | PM.IMPN1 ---
Progress Note: A&P Assessment and plan (1) Complicated urinary tract infection: Problem details: - Fever, bladder spasms, tachycardia, weakness, loss of appetite likely caused by indwelling Garza catheter. - 11/26/2023: Urine culture growing greater than 100,000 colony-forming units per mL of a Gram-negative nikolay. Identification and sensitivity still pending. Currently receiving ceftriaxone 1 g IV Q 24 hours. Status: Acute (2) Instability of left hip joint: Problem details: Hip cast Status: Acute (3) Wrist joint instability: Problem details: Bilateral arm casts. Unable to stand, transfer or ambulate Status: Acute (4) Kamari-Danlos syndrome: Problem details: Underlying cause for significant musculoskeletal disabilities Status: Acute (5) Weakness: Problem details: Acutely due to UTI and chronically due to Kamari-Danlos Physical therapy and occupational therapy to assist in assessing and treating May warrant temporary transitional care services before being able to return home safely Status: Acute (6) Malnutrition: Problem details: Acutely due to illness Status: Acute (7) Urinary retention: Problem details: - previously performed own straight catheterizations for elimination - currently has indwelling urethral catheter in place - his may need to be changed given acute urinary tract infection. - urethral and bladder spasms treated with oxybutynin 5 mg 3 times daily with insufficient relief. Maximum dose is 20 mg in a 24 period of time. I will add an additional 2.5 mg of oxybutynin once daily for total of 17.5 mg daily and monitor his response. Try to take him off this medicine when feasible given intolerable dyspepsia he has had in association with use of this medicine. Status: Inactive (8) Dyspepsia: Problem details: - seemingly exacerbated with use of anticholinergic, axial view tendon. Not achieving symptomatic relief with famotidine 40 mg once daily. 11/26/2023: Change regimen to omeprazole 20 mg q.a.m. and famotidine 20 mg p.o. q.p.m. Status: Acute Plan 1. Reviewed impressions and recommendations with patient 2. Answered his questions to satisfaction 3. Patient agreeable with above stated plans and recommendations Time Spent With Patient Total time spent: 45 minutes Subjective Date Seen: 11/26/23 Interval history: Hospital day 2. Admitted with complicated urinary tract infection, urethral catheter in place due to urinary retention, increased weakness in association with acute urinary tract infection, chronic instability of wrist joints and left hip joint due to underlying Kamari-Danlos Syndrome for which casts were placed earlier this week at the [facility], [place], [place]. 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 He also reports fairly severe bladder pain. He feels like he has to void constantly even though he has a catheter in place. He is now too weak to stand, walk and transfer. He has had longstanding urinary retention and does self catheterization. Garza catheter was placed November 07 for problems with urinary retention. 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 He is prone to falling and walks with crutches normally. ?Yesterday he had bilateral arm casts placed at [facility]. This is to stabilize midcarpal bone instability as well as instability of a tendon to his right thumb. The right arm has a forearm cast with Rahul thumb spica and the left has a long arm cast going up over the elbow to the proximal arm. With these casts on he is unable to safely ambulate with crutches. Prior to placement of the casts he was wearing removable splints. He would take the splints off to walk with crutches and then put them back on again. Even this was difficult for him. ?On November 06 he had a left hip cast placed at [facility] for left hip problems which include hip dysplasia, acetabular retroversion and labral tear. This has contributed to his immobility as well. ?Normally had he wears bilateral AFO. He is unable to get them on because of his other casts that are now placed. He has perineal tendonitis, right greater than left.? 11/26/2023: Urine culture growing greater than 100,000 colony-forming units per mL of a Gram-negative nikolay. Identification and sensitivity still pending. Currently receiving ceftriaxone 1 g IV Q 24 hours. Notes that generally speaking he feels somewhat better now than when he 1st presented to the hospital yesterday. No longer having spiking fevers. More interested in eating and drinking. Still having heartburn despite famotidine 40 mg every morning. Urethral pain not much improved per se. Less bladder spasms however. Exam Narrative: Exam Narrative: I examine him in his hospital room. Appears comfortable no acute distress. Vision and hearing are adequate. Alert and oriented x4. Friendly, articulate, cooperative. Lungs clear to auscultation. Heart tones with regular rhythm. Abdomen is thin with active bowel sounds, soft, nontender. Fiberglass cast on upper extremities and left hip. Moves all digits of hands and feet. Urine culture currently growing greater than 100,000 colony-forming units per mL of a Gram-negative nikolay. Organism identification and sensitivities still pending. Currently treated with ceftriaxone 1 g IV Q 24 hours. Const: Vital Signs, click to edit/add: Vital Signs - 24 hr 11/25/23 16:38 11/25/23 17:30 11/25/23 18:43 Temperature 100.1 F H Pulse Rate 102 H Pulse Rate [Pulse Oximeter] Pulse Rate [Right Pulse Oximeter] 129 H Respiratory Rate 18 16 Blood Pressure 130/82 Blood Pressure [Ri ght Arm] Blood Pressure [Ri ght Upper Arm] 150/98 H Pulse Oximetry [facility] 11/25/23 19:15 11/25/23 20:02 11/25/23 20:41 Temperature 98.5 F Pulse Rate 103 H 103 H Pulse Rate [Pulse Oximeter] 91 Pulse Rate [Right Pulse Oximeter] Respiratory Rate 16 16 18 Blood Pressure 126/81 124/83 Blood Pressure [Ri ght Arm] 131/76 Blood Pressure [Ri ght Upper Arm] Pulse Oximetry 94 [facility] 11/25/23 22:56 11/26/23 03:00 11/26/23 08:57 Temperature 97.8 F 97.8 F Pulse Rate Pulse Rate [Pulse Oximeter] 80 66 84 Pulse Rate [Right Pulse Oximeter] Respiratory Rate 18 18 18 Blood Pressure Blood Pressure [Ri ght Arm] 140/81 H 131/85 Blood Pressure [Ri ght Upper Arm] Pulse Oximetry 97 97 [facility] 11/26/23 08:57 Temperature Pulse Rate Pulse Rate [Pulse Oximeter] 84 Pulse Rate [Right Pulse Oximeter] Respiratory Rate 18 Blood Pressure Blood Pressure [Ri ght Arm] 130/92 H Blood Pressure [Ri ght Upper Arm] Pulse Oximetry 98 Oxygen Delivery Nd thod Room Air Labs Labs: Laboratory Results - last 24 hr 11/25/23 11/25/23 11/25/23 17:04 17:39 17:45 WBC 8.06 RBC 5.26 Hgb 15.5 Hct 44.9 MCV 85 MCH 30 MCHC 35 RDW Coeff of Mele 11.8 Plt Count 202 Neut % (Auto) 63.4 Lymph % (Auto) 24.6 [place] % (Auto) 8.2 Eos % (Auto) 3.3 Baso % (Auto) 0.4 Neut # (Auto) 5.11 Lymph # (Auto) 1.98 [place] # (Auto) 0.70 Eos # (Auto) 0.27 Baso # (Auto) 0.03 Abs Immat Gran (auto) 0.01 Imm/Tot Granulo (auto) 0.1 Sodium 139 Potassium 3.7 Chloride 105 Carbon Dioxide 25 Anion Gap 9 BUN 16 Creatinine 1.0 Estimated Creat Clear 106.88 Estimated GFR 108 Glucose 96 Lactate 1.2 Calcium 9.6 Magnesium 2.0 Urine Color Yellow Urine Appearance Slightly Cloudy A Urine pH 6.5 Ur Specific [place] 1.025 Urine Protein 2+ A Urine Glucose (UA) Negative Urine Ketones Negative Urine Blood 2+ A Urine Nitrite Positive A Urine Bilirubin Negative Urine Urobilinogen 1.0 Ur Leukocyte Esterase 1+ A Urine RBC 5-10 A Urine WBC 5-10 A Ur Squamous Epith Cells Few Urine Bacteria Moderate A SARS-CoV-2 (PCR) Negative SARS-CoV-2 Influenza Type A (PCR) Negative PCR FLU A Influenza Type B (PCR) Negative PCR FLU B RSV (PCR) Negative PCR RSV Group A Strep DNA NOT DETECTED
[2023-11-26] MEDS: SODIUM CHLORIDE 0.9 % (FLUSH) 10 ML SYRINGE 5 ML IVF ×2 (13:00→20:49)
[2023-11-26 15:00] VITALS: BP 130/88; PULSE 86; PULSE 87; RESP 18; O2SAT 98
[2023-11-26] MEDS: dexAMETHasone 4 MG/ML VIAL 8 MG IV (15:58)
[2023-11-26] MEDS: OXYCODONE 5 MG TABLET PO ×2 (15:58→20:46)
[2023-11-26] MEDS: oxyBUTYnin chloride 5 MG TABLET 2.5 MG PO (18:38)
[2023-11-26] MEDS: IBUPROFEN 400 MG TABLET PO (18:38)
[2023-11-26] MEDS: cefTRIAXone 1 GM in 0.9 % SODIUM CHLORIDE Mini-bag 100 ML IVPB (18:39)
--- NOTE | 2023-11-26 18:48 | PC.NURSE ---
Nursing Care Hours: [id number] Pt calm and cooperative, alert and oriented. Very pleasant and comical today. Pt is c/o severe urethra pain, 5-6/10 at rest and 7-8/10 with movement. Minimally relived by scheduled and PRN pain medications. Urine is running light adilson and clear. No hematuria noted. Pt states it feels like there is a cut on the inside meaning inside of urethra. Catheter tubing is connected to leg strap. Pt is asking if the pain can not be managed, if removing the catheter is a possibility. Dry Drug Worker discussed the risk of retaining and needing to straight cath increases the increase risk of further trauma and infection. Dry Drug Worker encouraged pt to continue to let us know if pain is unmanageable and staff can discuss with provider. Pt also c/o intermittent RLQ abdomen pain that pt said started with the UTI symptoms. Some relief found with pain medications. Intermittent nausea reported as well. Pt declines pharmaceutical intervention and just wants to go slow with meals and is using aromatherapy. Pt requires assistance with feeding meals. Tolerating pivot transfers with walker.
[2023-11-26 19:00] VITALS: BP 132/83; PULSE 96; RESP 18; TEMP 36.9; O2SAT 95
[2023-11-26] MEDS: FAMOTIDINE 20 MG TABLET PO (20:47)
[2023-11-26] MEDS: ENOXAPARIN 40 MG/0.4 ML INJ SUBCUT (20:48)
[2023-11-26 23:00] VITALS: BP 128/80; PULSE 80; RESP 18; TEMP 36.6; O2SAT 95
[2023-11-26] MEDS: BENZOCAINE/MENTHOL 1 EACH LOZENGE MUCOUS MEM (23:08)
[2023-11-27] MEDS: OXYCODONE 5 MG TABLET PO ×3 (01:40→20:47)
[2023-11-27 03:00] VITALS: BP 121/77; PULSE 78; RESP 18; TEMP 36.5; O2SAT 97
[2023-11-27] MEDS: OMEPRAZOLE 20 MG CAPSULE DR PO (06:20)
--- NOTE | 2023-11-27 07:30 | PC.NURSE ---
Shift note ([id number]): Patient pleasant, alert and oriented. Stood at side of bed this am for weight, otherwise remained in bed tonight. Garza catheter draining?clear, light-yellow urine. Good urinary output. PRN Oxycodone given for urethral pain rated 2-5/10 at rest and 5-8/10 with movement. Aromatherapy patch applied for nausea. Patient reports he had difficulty swallowing food yesterday and it was harder to breathe at that time. Per patient he ate Slovak toast and a quesadilla. Patient reports food was getting stuck. Patient describes having a history of these symptoms that comes and goes. He also c/o having a sore throat. PRN lozenge given. Dr Chan?updated this morning regarding difficulty swallowing.?
[2023-11-27 07:35] VITALS: BP 133/93; PULSE 78; PULSE 88; RESP 18; TEMP 36.6; O2SAT 98
--- NOTE | 2023-11-27 07:49 | PM.IMPN1 ---
Progress Note: A&P Assessment and plan (1) Complicated urinary tract infection: Problem details: - Fever, bladder spasms, tachycardia, weakness, loss of appetite likely caused by indwelling Stevens catheter. 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 Status: Acute (5) Weakness: Problem details: - Acutely due to UTI, 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 - PT and OT following - likely will warrant temporary transitional care services before being able to return home safely Status: Acute (6) Malnutrition: Problem details: - acute 2/2 illness Status: Acute (7) Urinary retention: Problem details: - previously performed own straight catheterizations for elimination - upon admission, has indwelling urethral catheter in place - urethral and bladder spasms treated with oxybutynin 5 mg TID with insufficient relief, Maximum dose 20mg in 24 hours - added an additional 2.5mg on 11/25 for symptom relief for 17.5mg/24 hours - will d/c stevens on 11/26 to see if bladder rest improves symptoms Status: Inactive (8) Dyspepsia: Problem details: - seemingly exacerbated with use of Oxybutynin, not achieving symptomatic relief with famotidine 40 mg once daily - 11/26/2023: Change regimen to omeprazole 20 mg Qam, Famotidine 20mg Qpm Status: Acute Plan - per above - likely SNF in 1-2 days Subjective Date Seen: 11/27/23 Interval history: Paramjit was admitted to the hospital on 11/24 for a complicated UTI with fever, in addition to weakness and chronic joint instability/hypermobility. On 11/24/23 had bilateral arm casts placed at [facility] to stabilize midcarpal bones and R thumb tendon; as a result in unable to utilize his crutches. Also has a L hip cast from [place] (placed 10/27) for h/o dysplasia, acetabular retroversion and labral tear. This comes up around abdomen as well. Symptoms since admission: - continued discomfort/spasms in bladder requiring opiate therapy (doesn't typically take these). Would like to trial some time without Stevens to calm symptoms - sore throat with intermittent dysphagia; negative COVID on admission. Has been seen by EXECUTIVE VICE PRESIDENT OF SALES in the past. Strep negative 11/26 - RLQ pain, intermittent. Still has appendix. Notably constipation since admission, pain present before constipation symptoms. Afebrile, no vomiting. Tolerating po intake Urine culture has grown out Klebsiella Ornithinolytica, sensitive to Ceftriaxone (has been on this since admission). Patient currently unable to perform ADLs given UTI symptoms + multiple limited extremities. Likely will require SNF placement upon discharge. Exam Narrative: Exam Narrative: GEN: Alert and oriented, laying comfortably in bed HEENT: EOMIs bilaterally, no scleral icterus CV: RRR, No concerning murmurs R: LCTA bilaterally Ab: Cast covers abdomen, able to palpate RLQ with mild discomfort, no rebound or guarding Ext: Casted BUE and LLE, normal capillary refill and pulses, no edema Skin: No concerning skin lesions or rashes on exposed skin Neuro: No focal deficits or resting tremor, gait not observed Psych: Appropriate Const: Vital Signs, click to edit/add: Vital Signs - 24 hr 11/26/23 08:57 11/26/23 08:57 11/26/23 11:00 Temperature Pulse Rate [Pulse Oximeter] 84 84 83 Respiratory Rate 18 18 18 Blood Pressure [Le ft Arm] Blood Pressure [Ri ght Arm] 130/92 H 138/91 H Pulse Oximetry 98 97 Oxygen Delivery Me thod Room Air Room Air 11/26/23 15:00 11/26/23 15:00 11/26/23 19:00 Temperature 98.5 F Pulse Rate [Pulse Oximeter] 87 86 96 Respiratory Rate 18 18 18 Blood Pressure [Le ft Arm] 130/88 132/83 Blood Pressure [Ri ght Arm] Pulse Oximetry 98 95 Oxygen Delivery Me thod Room Air Room Air 11/26/23 23:00 11/27/23 03:00 Temperature 97.9 F 97.7 F Pulse Rate [Pulse Oximeter] 80 78 Respiratory Rate 18 18 Blood Pressure [Le ft Arm] Blood Pressure [Ri ght Arm] 128/80 121/77 Pulse Oximetry 95 97 Oxygen Delivery Me thod Room Air Room Air Documenting provider has reviewed patient's vital signs: yes
[2023-11-27] MEDS: ACETAMINOPHEN 325 MG TABLET 650 MG PO ×2 (08:08→20:47)
[2023-11-27] MEDS: IBUPROFEN 400 MG TABLET PO (08:09)
[2023-11-27] MEDS: ASPIRIN 81 MG TAB.CHEW PO ×2 (08:09→20:47)
[2023-11-27] MEDS: oxyBUTYnin chloride 5 MG TABLET PO ×2 (08:10→18:41)
[2023-11-27] MEDS: SENNOSIDES/DOCUSATE TABLET PO (08:10)
[2023-11-27] MEDS: SODIUM CHLORIDE 0.9 % (FLUSH) 10 ML SYRINGE 5 ML IVF ×2 (08:10→18:42)
[2023-11-27] MEDS: polyethylene glycoL 3350 17 GM PACK PO (08:10)
[2023-11-27 09:04] LABS: Strep A DNA Probe* NOT DETECTED (Not Detectd)
[2023-11-27 11:00] VITALS: BP 122/83; PULSE 63; RESP 18; O2SAT 96
[2023-11-27] MEDS: CYCLOBENZAPRINE HCL 10 MG TABLET 5 MG PO (12:14)
[2023-11-27 15:00] VITALS: BP 127/76; PULSE 83; PULSE 84; RESP 18; O2SAT 98
[2023-11-27] MEDS: cefTRIAXone 1 GM in 0.9 % SODIUM CHLORIDE Mini-bag 100 ML IVPB (18:41)
[2023-11-27 19:00] VITALS: BP 128/75; PULSE 87; RESP 18; TEMP 36.7; O2SAT 97
--- NOTE | 2023-11-27 19:28 | PC.NURSE ---
Nursing Care Hours: [id number] Pt this shift calm and cooperative, alert and oriented. C/o pain in urethra are with stevens cath. Discussed with hospitalist and pt removing stevens. hospitalist went over risks but left it up to pt. Pt tolerated stevens removal, no blood noted. Brooke care done, no rash or area of concern noted. Since removal of stevens, pt declined any further pain medications and the oxybutynin. Meds moved to PRN. Bladder scan after three hours with 300ml retained fluid and after another three hours pt became uncomfortable after attempts to void. Straight cath done and no blood noted. Pt did c/o of pain and sensitivity that titrated down over the next couple hours until relieved. Pt c/o of one episode of spasm with pain 7/10 since straight cath but stated it did not last long. In the evening, pt feeling the urge to void but continued to have difficulty. Pt tried for about 45min stating he pushed and relaxed, pushed and relaxed until he was able to void 450ml. Pt had questions about medications for retention and fha underwriter discussed that oxybutynin is one of the medications used. Pt agreed to continue the oxybutynin 2-3 times a day while catheter is out to see if that will help with voiding. Senna and Miralax given, still no BM. C/o difficulty swallowing with most meals especially breaded food. Drill Press Operator Numerical Control encouraged pt to choose non bread choices for future until swallow study done. Bilat SCD applied.
[2023-11-27] MEDS: FAMOTIDINE 20 MG TABLET PO (20:48)
[2023-11-27 23:00] VITALS: BP 114/67; PULSE 75; RESP 18; TEMP 36.7; O2SAT 97
[2023-11-28 03:00] VITALS: RESP 17
[2023-11-28] MEDS: OMEPRAZOLE 20 MG CAPSULE DR PO (06:07)
[2023-11-28] MEDS: ACETAMINOPHEN 325 MG TABLET 650 MG PO (06:25)
[2023-11-28 06:34] LABS: Basophils Absolute Auto 0.03 K/uL (0.00-0.30); Basophils Percent Auto 0.4 % (0.0-3.0); Eosinophils Absolute Auto 0.15 K/uL (0.00-0.50); Eosinophils Percent Auto 1.9 % (0.0-7.0); Hematocrit 44.3 % (37.0-53.0); Hemoglobin* 15.4 gm/dL (13.5-17.5); Immature Granulocytes Abs Auto 0.01 K/uL (0.00-0.30); Immature Granulocytes Pct Auto 0.1 %; Lymphocytes Absolute Auto 3.34 K/uL (0.90-2.90); Lymphocytes Percent Auto 43.3 % (20-44); Mean Corpuscular HGB Conc 35 gm/dL (32-36); Mean Corpuscular Hemoglobin 30 pg (26-34); Mean Corpuscular Volume 85 fL (80-100); Monocytes Percent Auto 7.4 % (0.0-11.0); Neutrophils Absolute Auto 3.61 K/uL (1.7-7.0); Neutrophils Percent Auto 46.9 % (42.0-72.0); Platelet Count* 203 K/uL (140-440); RDW Coefficient of Variation % 11.9 % (11.5-15.5); Red Blood Count 5.22 m/uL (4.30-5.90); White Blood Count* 7.71 K/uL (4.50-11.00)
[2023-11-28 06:48] LABS: Slide Review Reflex No
[2023-11-28 06:59] LABS: Albumin* 4.2 g/dL (3.3-5.0); Chloride* 104 mmol/L (96-114); Sodium* 138 mmol/L (135-149)
[2023-11-28 07:00] LABS: Potassium* 3.8 mmol/L (3.6-5.1)
[2023-11-28 07:02] LABS: Alanine Aminotransferase* 14 U/L (4-50); Alkaline Phosphatase* 52 U/L (40-150); Anion Gap 7 mEq/L (7-15); Aspartate Amino Transferase* 20 U/L (12-35); Bilirubin Total* 0.5 mg/dL (0.1-1.5); Blood Urea Nitrogen* 23 mg/dL (5-24); Carbon Dioxide* 27 mmol/L (20-32); Estimated Glomerular Filt Rate 108 ml/min; Glucose* 82 mg/dL (60-115); Total Protein* 6.9 g/dL (6.0-8.3)
[2023-11-28 07:03] LABS: Calcium* 9.4 mg/dL (8.4-10.6)
[2023-11-28 08:30] VITALS: BP 129/80; PULSE 81; RESP 18; TEMP 36.8; O2SAT 99
[2023-11-28] MEDS: polyethylene glycoL 3350 17 GM PACK PO (08:48)
[2023-11-28] MEDS: ASPIRIN 81 MG TAB.CHEW PO ×2 (08:48→20:45)
[2023-11-28] MEDS: SODIUM CHLORIDE 0.9 % (FLUSH) 10 ML SYRINGE 5 ML IVF ×2 (08:49→20:48)
[2023-11-28] MEDS: CYCLOBENZAPRINE HCL 10 MG TABLET 5 MG PO ×2 (09:14→20:47)
[2023-11-28] MEDS: oxyBUTYnin chloride 5 MG TABLET PO (09:15)
[2023-11-28 09:59] VITALS: BMI 20.9
[2023-11-28 11:40] VITALS: BP 127/72; PULSE 88; RESP 18; TEMP 36.7; O2SAT 97
--- NOTE | 2023-11-28 11:47 | P.IMPN_ITS ---
Progress Note: A&P Assessment and plan (1) Complicated urinary tract infection: Problem details: - Fever, bladder spasms, tachycardia, weakness, loss of appetite likely caused by indwelling Stevens catheter. 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 Status: Acute (5) Weakness: Problem details: - Acutely due to UTI, 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 - PT and OT following - likely will warrant temporary transitional care services before being able to return home safely Status: Acute (6) Malnutrition: Problem details: - acute 2/2 illness Status: Acute (7) Urinary retention: Problem details: - previously performed own straight catheterizations for elimination - upon admission, has indwelling urethral catheter in place - urethral and bladder spasms treated with oxybutynin 5 mg TID with insufficient relief, Maximum dose 20mg in 24 hours - added an additional 2.5mg on 11/25 for symptom relief for 17.5mg/24 hours - stevens discontinued on 11/27 with improvement in discomfort and changed Oxybutynin to prn - continuing to have some urgency and overflow incontinence; Clotrimazole for yeast dermatitis of glans Status: Inactive (8) Dyspepsia: Problem details: - seemingly exacerbated with use of Oxybutynin, not achieving symptomatic relief with famotidine 40 mg once daily - 11/26/2023: Change regimen to omeprazole 20 mg Qam, Famotidine 20mg Qpm - 11/27: Speech therapy consult ordered Status: Acute (9) Constipation: Problem details: - likely also contributing to urinary symptoms - bowel regimen, reassess RLQ pain after BM Status: Acute Plan - per above - appreciate input from PT/OT/SW as we await placement Subjective Date Seen: 11/28/23 Interval history: Paramjit was admitted to the hospital on 11/24 for a complicated UTI with fever, in addition to weakness and chronic joint instability/hypermobility. On 11/24/23 had bilateral arm casts placed at [facility] to stabilize midcarpal bones and R thumb tendon; as a result in unable to utilize his crutches. Also has a L hip cast from [place] (placed 10/27) for h/o dysplasia, acetabular retroversion and labral tear. This cast comes up around abdomen as well. Notable findings since admission: - known neurogenic bladder with discomfort/spasms requiring opiate therapy. Stevens removed 11/26, having some urinary urgency when bladder >500mL, intermittent leakage, mild yeast dermatitis - sore throat with intermittent dysphagia; negative COVID on admission, negative Strep 11/26. Speech Consult ordered 11/27 - Constipation: no BM since admission, working on bowel regimen. Mild flare of anal fissure - RLQ abdominal pain, localized. No fever, normal WBC. Still has appendix, will continue to monitor pain (possibly flared by constipation) Urine culture has grown out Klebsiella Ornithinolytica, sensitive to Ceftriaxone (has been on this IV since admission). Patient currently unable to perform ADLs given UTI symptoms + multiple limited extremities. Likely will require SNF placement upon discharge. Exam Narrative: Exam Narrative: GEN: Alert and oriented, nontoxic HEENT: EOMIs bilaterally, no scleral icterus CV: RRR, No concerning murmurs R: LCTA bilaterally without concerning wheezing, air movement adequate Ext: Casted BUEs, casted L hip, extremities all wwp Skin: No concerning skin lesions or rashes on exposed skin Neuro: No focal deficits or resting tremor Psych: Appropriate Const: Vital Signs, click to edit/add: Vital Signs - 24 hr 11/27/23 15:00 11/27/23 15:00 11/27/23 19:00 Temperature 98.0 F Pulse Rate [Pulse Oximeter] 84 83 87 Respiratory Rate 18 18 18 Blood Pressure [Ri ght Arm] 127/76 128/75 Pulse Oximetry 98 97 Oxygen Delivery Me thod Room Air Room Air 11/27/23 23:00 11/28/23 03:00 11/28/23 08:30 Temperature 98.0 F Pulse Rate [Pulse Oximeter] 75 81 Respiratory Rate 18 17 18 Blood Pressure [Ri ght Arm] 114/67 Pulse Oximetry 97 Oxygen Delivery Me thod Room Air 11/28/23 08:30 Temperature 98.3 F Pulse Rate [Pulse Oximeter] 81 Respiratory Rate 18 Blood Pressure [Ri ght Arm] 129/80 Pulse Oximetry 99 Oxygen Delivery Me thod Room Air Labs Labs: Laboratory Results - last 24 hr 11/28/23 06:02 WBC 7.71 RBC 5.22 Hgb 15.4 Hct 44.3 MCV 85 MCH 30 MCHC 35 RDW Coeff of Mele 11.9 Plt Count 203 Neut % (Auto) 46.9 Lymph % (Auto) 43.3 [place] % (Auto) 7.4 Eos % (Auto) 1.9 Baso % (Auto) 0.4 Neut # (Auto) 3.61 Lymph # (Auto) 3.34 H [place] # (Auto) 0.60 Eos # (Auto) 0.15 Baso # (Auto) 0.03 Abs Immat Gran (auto) 0.01 Imm/Tot Granulo (auto) 0.1 Sodium 138 Potassium 3.8 Chloride 104 Carbon Dioxide 27 Anion Gap 7 BUN 23 Creatinine 1.0 Estimated Creat Clear 116.90 Estimated GFR 108 Glucose 82 Calcium 9.4 Total Bilirubin 0.5 AST 20 ALT 14 Alkaline Phosphatase 52 Total Protein 6.9 Albumin 4.2
[2023-11-28] MEDS: CLOTRIMAZOLE 1 % CREAM 1 APPLIC TOPICAL ×2 (12:49→19:43)
[2023-11-28] MEDS: MAGNESIUM HYDROXIDE 30 ML ORAL.SUSP PO (12:49)
[2023-11-28] MEDS: OXYCODONE 5 MG TABLET PO ×2 (14:30→20:46)
--- NOTE | 2023-11-28 14:46 | PC.NURSE ---
Pt talkative and pleasant. Reluctant to take narcotics for generalized pain; aromatherapy, repositioning, PRn medications used with minimal relief. See MAR for medication administration. Support and reassurance needed with cares, Bathrooming needs, and meals. Pt is in need of increased support when DC to home, Erica, social work, working with pt.
[2023-11-28 15:00] VITALS: BP 126/89; PULSE 91; RESP 18; TEMP 36.7; O2SAT 97
--- NOTE | 2023-11-28 15:47 | PC.SOCIAL ---
Discharge planning: call worker person and social work finance intern met with pt today to discuss discharge planning. Pt is currently being recommended for short-term rehab after his discharge. Pt is unsure if he has coverage for short-term rehab through his PMAP with [facility] [place]. Pt stated that if he is able to go to rehab after his hospital stay he does not want to go to [facility] or [facility] in [place]. Pt is open to [facility] for short-term rehab and also wanted this worker to look into [facility] in [place], [place] as he shared one of his co-workers recommended this facility to him. The pt is hoping to go to a facility that has a variety of ages for their patients/more patients that may be closer to his age group. call worker person and social work finance intern sent a secure email referral to Ang Malik with Dagmar at [email or web address] for the pt to be considered for [facility] and [facility]. Social work finance intern also spoke to the Admissions office at [facility] in [place] and they shared that they only accept patients with a new neurological diagnosis and not a pre-existing condition. call worker person heard back from Ang at [facility] and she stated that they cannot accept the pt at any of their [facility] facilities due to complexity and acuity of the case. call worker person also received a call from Padmini tavera [facility] APS Capacity Manager #[phone] whom shared that she had an open case on the pt and that she was aware he previously had [facility] in place. call worker person also found out, with the help of Utilization Review, that the pt does not have insurance coverage for short-term rehab at a SNF. call worker person updated the provider on duty with this information. call worker person also reached back out to Padmini at [facility] about this information and she was going to try to connect with the financial services department at [facility] to see if there is anything that can be done in order to get the pt qualified for short-term rehab benefits at a SNF. call worker person talked with the pt about the option of private paying for short-term rehab and he said that financially that is not an option for him nor is it an option to get help from his parents to pay for it. Social work to follow-up as needed.
[2023-11-28 19:00] VITALS: BP 127/87; PULSE 72; RESP 18; TEMP 36.7; O2SAT 98
[2023-11-28] MEDS: oxyBUTYnin chloride 5 MG TABLET 2.5 MG PO (19:21)
[2023-11-28] MEDS: cefTRIAXone 1 GM in 0.9 % SODIUM CHLORIDE Mini-bag 100 ML IVPB (19:21)
[2023-11-28] MEDS: FAMOTIDINE 20 MG TABLET PO (20:45)
[2023-11-28] MEDS: SENNOSIDES 1 TAB TABLET 2 TAB PO (20:46)
[2023-11-28] MEDS: ENOXAPARIN 40 MG/0.4 ML INJ SUBCUT (20:48)
--- NOTE | 2023-11-28 22:34 | PC.NURSE ---
Shift Note: Pt polite, but clearly withdrawing from social interaction. He states he is unhappy there has been setbacks with finding TCU placement. He refused topical fausto cream as well as ordering a dinner tray. He has been cooperative with VS which have been WNL and initially denied pain. At HS pt did say he was having increased discomfort in his knees and wrists bilaterally and was given PRN Oxycodone and Flexeril. Pt was able to ambulate by hopping slowly on one foot with assist at 2 and his walker to the door of his room and back to bed. He required JAKE assistance brushing his teeth and washing his face prior to bedtime. He was offered a sippy cup for apple juice but stated he would prefer a straw and seemed to do well with this set up. He did not participate in fausto-care, com writer and JAKE cleansed area with no-rinse foam, dried, and applied topical anti-fungal. Pt has been independent with urinal at bedside, he voided 375cc this shift. Pulp Roller encouraging pt to increase his fluid intake. No BM. Stool softener given at HS as well as warm prune juice.
[2023-11-28 23:15] VITALS: BP 120/82; PULSE 79; RESP 16; TEMP 36.7; O2SAT 97
[2023-11-29 05:48] VITALS: BP 123/84; PULSE 79; RESP 16; TEMP 36.6; O2SAT 98
[2023-11-29] MEDS: OMEPRAZOLE 20 MG CAPSULE DR PO (05:55)
--- NOTE | 2023-11-29 06:20 | PC.NURSE ---
End of shift [id number]: A&O pleasant and cooperative. Afebrile and VSS. Pt reports some stomach cramping and reports passing gas but still no BM. Health Center Associate encouraged increased fluid intake. Able to use urine independently otherwise up w/ A1. Using call light appropriately.
[2023-11-29 07:00] VITALS: PULSE 86; RESP 16
[2023-11-29] MEDS: polyethylene glycoL 3350 17 GM PACK PO (08:40)
[2023-11-29] MEDS: MAGNESIUM HYDROXIDE 30 ML ORAL.SUSP PO (08:40)
[2023-11-29] MEDS: CLOTRIMAZOLE 1 % CREAM 1 APPLIC TOPICAL (08:40)
[2023-11-29] MEDS: ASPIRIN 81 MG TAB.CHEW PO ×2 (08:41→21:10)
[2023-11-29] MEDS: SENNOSIDES 1 TAB TABLET 2 TAB PO (08:41)
[2023-11-29] MEDS: SODIUM CHLORIDE 0.9 % (FLUSH) 10 ML SYRINGE 5 ML IVF ×2 (08:49→21:09)
--- NOTE | 2023-11-29 09:52 | PC.SOCIAL ---
Addendum entered and electronically signed by MICHELLE Shau Student Burring Wheel Operator 11/29/23 16:12: The social work department spoke with Padmini at [facility] in a conference call and also followed up with the provider on duty and PT. The plan is to contact multiple facilities to inquire about short-term rehab openings, [place] long-term care application now pending. Addendum entered and electronically signed by RIVAS Aleman 11/29/23 14:30: Discharge planning: Pt will most likely be discharging from the hospital tomorrow when his mother is back home from being out of the country. The application that was sent by the [facility] is not an immediate financial solution to paying for placement in a alf facility. egg worker and social work contracts intern will continue to look for facilities that may take an MA pending application. [facility] in [place] does not have anymore openings this week and will not accept the pt without a payor source. Social work to follow-up as needed. Addendum entered and electronically signed by RIVAS Aleman 11/29/23 14:12: Discharge planning: LTC payment application that was sent to this worker from [facility] was completed today with the pt and then secure emailed to Padmini at [facility]. Social work to follow-up as needed. Original Note: Discharge planning: egg worker heard back from Padmini at [facility] stating that she spoke to the treating and pumping supervisor of the financial department at [facility] and he stated that in order for the pt to go to a SNF, we will just need to get a [id number]([place] application/LTC payment) completed by the pt and a [id number] completed by the provider at the facility that accepts him. This will allow him to open to MA-LTC without a disability determination and the SNF stay will then be paid for. egg worker will work on getting this form completed with the pt. egg worker will then update the provider on duty and then Padmini at [facility]. Social work to follow-up as needed.
--- NOTE | 2023-11-29 11:06 | PM.IMPN1 ---
Progress Note: A&P Assessment and plan (1) Complicated urinary tract infection: Problem details: - Fever, bladder spasms, tachycardia, weakness, loss of appetite likely caused by indwelling Stevens catheter. - 11/26/2023: Urine culture + for Klebsiella Ornithinolytica, sensitive to Ceftriaxone, will continue this (11/24) Status: Acute (2) Urinary retention: Problem details: - previously performed own straight catheterizations for elimination - upon admission, had indwelling urethral catheter in place - urethral and bladder spasms treated with oxybutynin 5 mg TID with insufficient relief, Maximum dose 20mg in 24 hours - added an additional 2.5mg on 11/25 for symptom relief for 17.5mg/24 hours - stevens discontinued on 11/27 with improvement in discomfort and changed Oxybutynin to prn - continuing to have some urgency and overflow incontinence; Clotrimazole for yeast dermatitis of glans Status: Inactive (3) Weakness: Problem details: - Acutely due to UTI, 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 - PT and OT following - insurance not covering TCU services at this time Status: Acute (4) Malnutrition: Problem details: - acute 2/2 illness - weight on 11/24 72.3; weight 11/28 71.4 - nutrition consult - treat GERD, trial of Reglan 11/28 Status: Acute (5) Constipation: Problem details: - likely also contributing to urinary symptoms - bowel regimen ordered Status: Acute (6) Dyspepsia: Problem details: - seemingly exacerbated with use of Oxybutynin, not achieving symptomatic relief with famotidine 40 mg once daily - 11/26/2023: Change regimen to omeprazole 20 mg Qam, Famotidine 20mg Qpm - 11/27: Speech therapy consult ordered - 11/28: patient continues to have symptoms and nausea, notes decreased po intake. 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 On 11/24/23 had bilateral arm casts placed at [facility] to stabilize midcarpal bones and R thumb tendon; as a result in unable to utilize his crutches. Also has a L hip cast from [facility] (placed 10/27) for h/o dysplasia, acetabular retroversion and labral tear. This cast comes up around abdomen as well and is to be removed next week. After admission/medical stabilization, plan was for SNF placement; however, patient's insurance does not cover TCU stays. We discussed discharge planning at length. Paramjit's was hoping for TCU placement. His concerns for discharge: - urinary: typically self-straight catheterizes (unable to do this while splinted), had pain/UTI with Stevens. Urinating w/o assistance over the past 1-2 days (notes some urinary incontinence/leakage) - discussed urinary options: Stevens (prefer to leave out given pain/UTI), leave it out and use absorbent pads to help with incontinence overflow - Constipation: hasn't had a BM since admission, declined MOM this morning. We discussed the constipation also contributing to urinary symptoms - Weight loss, GERD: speech therapy ordered (plan to see him tomorrow), on PPI and H2 marcia. Worried about weight loss/energy. Admission weight 72.3 --> 71.4 - ADLs: lives with mother, she is currently in [place], back Tuesday. She is limited in her availability to help with ADLs. Home Health and the [facility] also involved We discussed seeing Ortho again for sooner removal of arm casts; he does not feel that this is an option for him currently. Urine culture has grown out Klebsiella Ornithinolytica, sensitive to Ceftriaxone (has been on this IV since admission). Exam Narrative: Exam Narrative: GEN: Alert and oriented, sitting comfortably in bed and nontoxic R: Speaking in full sentences, no tachypnea Neuro: No resting tremor Psych: Mildly flat affect, otherwise appropriate Const: Vital Signs, click to edit/add: Vital Signs - 24 hr 11/28/23 11:40 11/28/23 15:00 11/28/23 15:00 Temperature 98.1 F 98.0 F Pulse Rate [Pulse Oximeter] 88 91 91 Respiratory Rate 18 18 18 Blood Pressure [Ri ght Arm] 127/72 126/89 Pulse Oximetry 97 97 Oxygen Delivery Me thod Room Air Room Air 11/28/23 19:00 11/28/23 23:15 11/29/23 05:48 Temperature 98.0 F 98.1 F 97.8 F Pulse Rate [Pulse Oximeter] 72 79 79 Respiratory Rate 18 16 16 Blood Pressure [Ri ght Arm] 127/87 120/82 123/84 Pulse Oximetry 98 97 98 Oxygen Delivery Nj thod Room Air Room Air Room Air 11/29/23 07:00 Temperature Pulse Rate [Pulse Oximeter] 86 Respiratory Rate 16 Blood Pressure [Ri ght Arm] Pulse Oximetry Oxygen Delivery Nj thod
--- NOTE | 2023-11-29 13:38 | NUTR.NU ---
Nutrition follow up: Visited with patient. Patient's intakes have declined since yesterday. Patient reports he is concerned about his weight decreasing further, however, he is worried he is going to throw up when he eats. During RDN's visit patient did have an enlive supplement at his bedside. He reports he is also worried he will throw up if he drinks too much enlive. He was encouraged to sip on the ensure throughout the day. We discussed ordering soft foods for meals and drinking the enlive between meals to optimize nutrition. He was also encouraged to relax while eating and to go slow. Diet education provided on tips for managing reflux. We discussed that these tips may help with his appetite/intake currently as well. Discussed foods recommended and to avoid. He was encouraged to have several small meals. Enlive supplements ordered TID to be offered between meals. These will provide 1050 kcals and 60 grams protein per day. He was also encouraged to continue nutrition supplements between meals at home. Handout provided from [facility] as well as sample menu. Swallow evaluation is planned for tomorrow. D/C is also planned for tomorrow. RDN to follow up tomorrow as needed based on swallow evaluation results.
[2023-11-29 15:00] VITALS: PULSE 61; RESP 18
--- NOTE | 2023-11-29 16:12 | PC.SOCIAL ---
Addendum entered and electronically signed by RIVAS Aleman 11/29/23 16:42: Discharge planning: A referral was sent to Yuly at [facility] in [place] via secure email this afternoon. Yuly stated that she may have an opening coming up and is willing to review the referral. Social work to follow-up as needed. Original Note: Discharge planning: bottling room worker and social work internal carver contacted the following facilities regarding short-term rehab placement. The pt requested social workers not contact [facility] or the Dora at [facility]. Below are the facilities contacted. 1) [facility]: declined due to acuity, 2) [facility]: declined due to acuity, 3) [facility]: declined, 4) [facility]: faxed referral [phone], phone number: [phone] 5) [facility]: left voicemail, 6) [facility]: faxed referral to [phone], phone number: [phone] 7) [facility], left voicemail: [phone] 8) [facility]: faxed referral to [phone], phone number: [phone] 9) [facility]: faxed referral to [phone], phone number: [phone] 10) [facility]: left voicemail at [phone] 11) [facility]: left voicemail at [phone] 12) [facility]: left voicemail at [phone] 13) [facility]: faxed referral to [phone], phone number: [phone] 14) [facility]: left voicemail at [phone] 15) [facility]: faxed referral to [phone], phone number [phone] 16) [facility]: LTC only 17) [facility]: left voicemail, 18) [facility]: left voicetxil, bottling room worker secured emailed liaison Kwan a referral for all [facility] [place] facilities, [email or web address]. Social work to follow up as needed.
[2023-11-29] MEDS: METOCLOPRAMIDE 10 MG TABLET PO (17:19)
[2023-11-29] MEDS: bisacodyL 10 MG SUPP.RECT PR (17:19)
[2023-11-29] MEDS: oxyBUTYnin chloride 5 MG TABLET 2.5 MG PO (19:34)
[2023-11-29] MEDS: cefTRIAXone 1 GM in 0.9 % SODIUM CHLORIDE Mini-bag 100 ML IVPB (19:34)
[2023-11-29] MEDS: ENOXAPARIN 40 MG/0.4 ML INJ SUBCUT (21:10)
[2023-11-29] MEDS: FAMOTIDINE 20 MG TABLET PO (21:11)
[2023-11-29 21:53] VITALS: BP 112/86; PULSE 86; RESP 16; TEMP 36.7; O2SAT 97
[2023-11-30 05:28] VITALS: BP 106/77; PULSE 90; RESP 16; TEMP 36.5; O2SAT 97
--- NOTE | 2023-11-30 06:20 | PC.NURSE ---
Addendum entered by Evelyn Villagomez RN 11/30/23 06:45: intermittent nausea present when eating meals. Internet Marketing Intern encouraged small bites with allotted time in between. Original Note: End of shift [id number]: A&O pleasant and cooperative. Afebrile and VSS. Pt had 2 large soft/loose BMs in the evening, Senna was held. Pt urinated per self in the commode. Pt denies pain throughout the shift. Pt refused fausto cream. Internet Marketing Intern encouraged increased fluid intake. Up with A1, bedside commode. Pt appears resting with call light in reach.
[2023-11-30] MEDS: OMEPRAZOLE 20 MG CAPSULE DR PO (06:42)
[2023-11-30 07:52] VITALS: BP 118/76; PULSE 99; RESP 16; TEMP 36.6; O2SAT 98
[2023-11-30] MEDS: METOCLOPRAMIDE 10 MG TABLET PO ×3 (08:10→17:44)
[2023-11-30] MEDS: ASPIRIN 81 MG TAB.CHEW PO ×2 (09:06→21:28)
[2023-11-30] MEDS: SODIUM CHLORIDE 0.9 % (FLUSH) 10 ML SYRINGE 5 ML IVF ×2 (09:07→21:29)
[2023-11-30] MEDS: CLOTRIMAZOLE 1 % CREAM 1 APPLIC TOPICAL ×2 (09:07→21:29)
[2023-11-30] MEDS: polyethylene glycoL 3350 17 GM PACK PO (09:07)
[2023-11-30] MEDS: SENNOSIDES 1 TAB TABLET 2 TAB PO ×2 (09:07→21:28)
--- NOTE | 2023-11-30 12:53 | PC.SOCIAL ---
Addendum entered and electronically signed by MICHELLE Sahu Student Telesales Team Leader 11/30/23 16:18: Discharge planning: [facility] has no beds available. Axel Sandoval requested three months of bank statemnts. Pt provided these statments to the social group worker and they have been sent to Ashley in admisisons, . family services worker to follow up with Axel Sandoval. Original Note: Social work photography intern continued looking for placements with the following updates from yesterday: 1) [facility]: declined 2) [facility]: declined 3) [facility]: left voicemail with Mary, 4) [facility]: declined 5) [facility]: emailed michael [email or web address], asking for an update 6) [facility]: no beds available 7) [facility]: no beds available 8) [facility]: left voicemail, 9) [facility]: left voicemail, 10) [facility]: left voicemail, 11) [facility]: no voicemail available 12) [facility]: declined due to pt age 13) [facility]: faxed referral to [phone], phone number: [phone] 14) [facility]: left voicemail, 15) [facility]: faxed referral to [phone], phone number: [phone] 16) [facility]: left voicemail, 17) [facility]: spoke with Ashley in admissions, , who will continue reviewing the referral. She asked for nurse line. 18) [facility]: faxed referral to [phone], phone number: [phone] 19) [facility]: left voicemail, 20) [facility]: left voicectil, 21) [facility]: cannot accept while the [place] long-term care application is pending, will re-examine when it's accepted, Social work to continue looking for placement.
--- NOTE | 2023-11-30 14:59 | P.IMPN_ITS ---
Progress Note: A&P Assessment and plan (1) Complicated urinary tract infection: Problem details: - Fever, bladder spasms, tachycardia, weakness, loss of appetite likely caused by indwelling Garza catheter. 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 - PT and OT following - insurance not covering TCU services at this time, working on respite options Status: Acute (4) Malnutrition: Problem details: - acute 2/2 illness - weight on 11/24 72.3; weight 11/28 71.4 - nutrition consult, Speech consult - treat GERD, trial of Reglan 11/28 Status: Acute (5) Constipation: Problem details: - likely also contributing to urinary symptoms - bowel regimen ordered, + BM 11/28 Status: Acute (6) Dyspepsia: Problem details: - seemingly exacerbated with use of Oxybutynin, not achieving symptomatic relief with famotidine 40 mg once daily - 11/26/2023: Change regimen to omeprazole 20 mg Qam, Famotidine 20mg Qpm - 11/27: Speech therapy consult ordered - 11/28: patient continues to have symptoms and nausea, notes decreased po intake. 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 On 11/24/23 had bilateral arm casts placed at [facility] to stabilize midcarpal bones and R thumb tendon; as a result in unable to utilize his crutches. Also has a L hip cast from [facility] (placed 10/27) for h/o dysplasia, acetabular retroversion and labral tear. This cast comes up around abdomen as well and is to be removed next week. Patient's insurance doesn't cover SNF stays; we are evaluating options for respite care. Garza remains out with intermittent concerns of urinary retention and leakage, has completed 5 day course of ceftriaxone for UTI. Constipation has resolved. Seeing speech therapy today for symptomatic GERD. Urine culture has grown out Klebsiella Ornithinolytica, sensitive to Ceftriaxone (has completed 5 day course). Exam Narrative: Exam Narrative: Sitting comfortably in bed, nontoxic Bilateral upper extremities are immobilized Const: Vital Signs, click to edit/add: Vital Signs - 24 hr 11/29/23 15:00 11/29/23 21:53 11/30/23 05:28 Temperature 98.1 F 97.7 F Pulse Rate [Pulse Oximeter] 61 86 90 Respiratory Rate 18 16 16 Blood Pressure [Ri ght Arm] 112/86 106/77 Pulse Oximetry 97 97 Oxygen Delivery Me thod Room Air Room Air 11/30/23 07:52 Temperature 97.8 F Pulse Rate [Pulse Oximeter] 99 Respiratory Rate 16 Blood Pressure [Ri ght Arm] 118/76 Pulse Oximetry 98 Oxygen Delivery Me thod Room Air
[2023-11-30] MEDS: oxyBUTYnin chloride 5 MG TABLET 2.5 MG PO (17:44)
--- NOTE | 2023-11-30 18:39 | PC.NURSE ---
Pt alert and oriented. Pt pleasant and cooperative. Pt had no complaints of pain. Pt?s VSS. Pt awaiting respite placement.?
[2023-11-30 20:00] VITALS: BP 121/77; PULSE 90; RESP 16; TEMP 36.6; O2SAT 96
[2023-11-30] MEDS: BENZOCAINE/MENTHOL 1 EACH LOZENGE MUCOUS MEM (20:36)
[2023-11-30] MEDS: FAMOTIDINE 20 MG TABLET PO (21:28)
[2023-11-30] MEDS: ENOXAPARIN 40 MG/0.4 ML INJ SUBCUT (21:29)
[2023-11-30] MEDS: OXYCODONE 5 MG TABLET PO (21:29)
--- NOTE | 2023-12-01 06:08 | PC.NURSE ---
End of shift [id number]: Pt AxOx4, cooperative, and pleasant. Pt rated pain 4/10 upon initial assessment. Pt requested PRN pain medication. Cutter Hand utilized position change and PRN medication. Relief noted. Pt?s VSS. Pt continent of the bladder, using urinal. Pt tolerating diet and liquids well. Pt awaiting respite placement.?Pt appears resting well with call light in reach.
[2023-12-01] MEDS: OMEPRAZOLE 20 MG CAPSULE DR PO ×2 (06:42→20:34)
[2023-12-01 08:25] VITALS: PULSE 92; RESP 16
[2023-12-01 08:36] VITALS: BP 123/84; PULSE 92; RESP 16; TEMP 36.6; O2SAT 95
[2023-12-01] MEDS: polyethylene glycoL 3350 17 GM PACK PO (08:40)
[2023-12-01] MEDS: ASPIRIN 81 MG TAB.CHEW PO ×2 (08:40→20:33)
[2023-12-01] MEDS: METOCLOPRAMIDE 10 MG TABLET PO ×3 (08:41→17:42)
[2023-12-01] MEDS: SENNOSIDES 1 TAB TABLET 2 TAB PO ×2 (08:41→20:33)
[2023-12-01] MEDS: SODIUM CHLORIDE 0.9 % (FLUSH) 10 ML SYRINGE 5 ML IVF (08:41)
--- NOTE | 2023-12-01 12:54 | PM.IMPN1 ---
Progress Note: A&P Assessment and plan (1) Complicated urinary tract infection: Problem details: - Fever, bladder spasms, tachycardia, weakness, loss of appetite likely caused by indwelling Garza catheter - 11/26/2023: Urine culture + for Klebsiella Ornithinolytica, sensitive to Ceftriaxone, completed 5 day course on 11/28 Status: Acute (2) Urinary retention: Problem details: - previously performed own straight catheterizations for elimination prn - upon admission, had indwelling urethral catheter in place given immobilized extremities, this was painful and requiring Oxycodone + Oxybutynin for symptom mgmt - currently stable, occasional overflow leakage but no concerning retention on bladder scans Status: Inactive (3) Weakness: Problem details: - Acutely due to UTI, 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 - limited in ADL performance given immobilized BUEs and LLE - PT and OT following Status: Acute (4) Malnutrition: Problem details: - acute 2/2 illness - weight on 11/24 72.3; weight 11/28 71.4 - nutrition consult, Speech consult - treat GERD with BID PPI, trial of Reglan 11/28 Status: Acute (5) Constipation: Problem details: - likely also contributing to urinary symptoms - bowel regimen ordered, + BM 11/28 Status: Acute (6) Dyspepsia: Problem details: - seemingly exacerbated with use of Oxybutynin, not achieving symptomatic relief with famotidine 40 mg once daily - 11/26/2023: Change regimen to omeprazole 20 mg Qam, Famotidine 20mg Qpm - 11/27: Speech therapy consult ordered - 11/28: patient continues to have symptoms and nausea, notes decreased po intake. 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 At that time, he had a Garza catheter in place (placed given immobilized extremities and history of mild urinary retention requiring prn straight catheterizations). On 11/24/23 had bilateral arm casts placed at [facility] to stabilize midcarpal bones and R thumb tendon; as a result, he is unable to utilize crutches or a walker safely. Also has a L hip cast from [place] (placed 10/27) for h/o dysplasia, acetabular retroversion and labral tear. This cast comes up around abdomen as well and is to be removed on Tuesday, 12/04. Urine culture grew Klebsiella Ornithinolytica, sensitive to Ceftriaxone (has completed 5 day course). Garza remains out with intermittent leaking, no concerning retention by bladder scan. Issues during stay: - constipation, resolved on bowel regimen - GERD, seen by Speech on 11/29. Recommendation is for sitting up during meals (difficult with brace). Currently on Omeprazole Qam and Famotidine QHS, will increase to Omeprazole BID - difficulty with ADLs; had HH after casts placed. At this time, needs TCU placement but may elect to go home with family if no placement 12/01. [place] appt 12/04, [facility] 12/07 Exam Narrative: Exam Narrative: Sitting up in bedside chair, having lunch Nontoxic, no concerning neurological findings Const: Vital Signs, click to edit/add: Vital Signs - 24 hr 11/30/23 20:00 12/01/23 08:25 12/01/23 08:36 Temperature 98 F 97.8 F Pulse Rate [Pulse Oximeter] 90 92 92 Respiratory Rate 16 16 16 Blood Pressure [Ri ght Arm] 121/77 123/84 Pulse Oximetry 96 95 Oxygen Delivery Me thod Room Air Room Air
--- NOTE | 2023-12-01 15:19 | PC.SOCIAL ---
Addendum entered and electronically signed by RIVAS Aleman 12/01/23 16:26: Discharge planning: gospel worker left a message with the bowling or skating front desk clerk staff at [facility] asking if they could let Nieves know that this worker was trying to get a hold of her about an update for admission or not for the pt. As of the end of the day social media assistant has not heard back from Nieves. Social work to follow-up as needed. Addendum entered and electronically signed by RIVAS Aleman 12/01/23 15:24: Discharge planning: As of 3pm this worker had not heard back from Nieves at [facility] about whether or not they can accept the pt for admission. gospel worker tried calling Nieves again, but had to leave a message. Social work to follow-up as needed. Original Note: Discharge planning: gospel worker spoke to Nieves #[phone] [facility] this morning who stated that they received the pt's bank statements and they were sent on to the business office for review. Nieves will update this worker when they know if they can financially accept the pt or not. Social work to follow-up as needed.
[2023-12-01] MEDS: oxyBUTYnin chloride 5 MG TABLET 2.5 MG PO (17:41)
--- NOTE | 2023-12-01 18:53 | PC.NURSE ---
(Shift 07-15) Pt alert and oriented. Pt pleasant and cooperative. Pt had no complaints of pain. Pt?s VSS. Pt?s IV removed per MD. Pt up with an assist of one with walker and gait belt. Pt awaiting respite placement.?
[2023-12-01 20:00] VITALS: BP 122/73; PULSE 77; RESP 18; TEMP 36.6; O2SAT 95
[2023-12-01] MEDS: OXYCODONE 5 MG TABLET PO (20:34)
--- NOTE | 2023-12-01 22:38 | PC.NURSE ---
(Shift: [id number]) Pt VSS. A&O. Pt in bed during shift. Uses urinal. Tolerated a regular diet. CNAs assisted pt with a sponge bath tonight. PRN oxycodone give at night for restful sleep.
[2023-12-02] MEDS: OXYCODONE 5 MG TABLET PO ×2 (00:37→11:45)
[2023-12-02] MEDS: MELATONIN 3 MG TABLET PO (00:38)
[2023-12-02 07:00] VITALS: PULSE 92; RESP 18
[2023-12-02] MEDS: METOCLOPRAMIDE 10 MG TABLET PO ×2 (07:32→11:45)
--- NOTE | 2023-12-02 07:35 | PC.NURSE ---
Pt alert and oriented x3. Pt reports 4/10 pain in left hip, pain managed with PRN medication. Pt is up SBA and tolerating a regular diet. Pt slept throughout most of night. Night uneventful.
[2023-12-02 08:00] VITALS: BP 114/71; PULSE 92; RESP 18; TEMP 36.6; O2SAT 98
[2023-12-02] MEDS: ASPIRIN 81 MG TAB.CHEW PO (09:03)
[2023-12-02] MEDS: CLOTRIMAZOLE 1 % CREAM 1 APPLIC TOPICAL (09:03)
[2023-12-02] MEDS: SENNOSIDES 1 TAB TABLET 2 TAB PO (09:03)
[2023-12-02] MEDS: OMEPRAZOLE 20 MG CAPSULE DR PO (09:03)
[2023-12-02] MEDS: polyethylene glycoL 3350 17 GM PACK PO (09:05)
--- NOTE | 2023-12-02 11:05 | PM.DS1 ---
DS: Providers Provider Date Seen: 12/02/23 Date of admission: 11/25/23 20:24 Primary care physician: Eliana Guerra MD Admitting Clinician: Edgar Lopez MD Consults: PT, OT, Nutrition, Speech Therapy, SW Attending Physician on discharge: Hilaria Chan MD Date of Discharge: 12/02/23 DS: Diagnosis Discharge Diagnosis (1) Complicated urinary tract infection: Status: Acute Problem details: - Fever, bladder spasms, tachycardia, weakness, loss of appetite likely caused by indwelling Stevens catheter - 11/26/2023: Urine culture + for Klebsiella Ornithinolytica, sensitive to Ceftriaxone, completed 5 day course on 11/28 (2) Urinary retention: Status: Inactive Problem details: - previously performed own straight catheterizations for elimination prn - upon admission, had indwelling urethral catheter in place given immobilized extremities, this was painful and requiring Oxycodone + Oxybutynin for symptom mgmt - currently stable, occasional overflow leakage but no concerning retention on bladder scans (3) Weakness: Status: Acute Problem details: - Acutely due to UTI, 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 - limited in ADL performance given immobilized BUEs and LLE - PT and OT followed during stay (4) Malnutrition: Status: Acute Problem details: - acute 2/2 illness, BMI 20 - weight on 11/24 72.3; weight 11/28 71.4 - nutrition consult, Speech consult - treat GERD with BID PPI, trial of Reglan 11/28 (5) Dyspepsia: Status: Acute Problem details: - seemingly exacerbated with use of Oxybutynin, not achieving symptomatic relief with famotidine 40 mg once daily - 11/26/2023: Change regimen to omeprazole 20 mg Qam, Famotidine 20mg Qpm - 11/27: Speech therapy consult ordered - 11/28: patient continues to have symptoms and nausea, notes decreased po intake. Add Reglan, nutrition and speech following - 11/30: improved when sitting upright while eating, change Omeprazole to BID (6) Instability of left hip joint: Status: Acute Problem details: - L hip casted per [facility] (7) Wrist joint instability: Status: Acute Problem details: - bilateral arm casts ([facility]); as a result, unable to stand, transfer or ambulate (8) Kamari-Danlos syndrome: Status: Acute Problem details: - Underlying cause for significant musculoskeletal disabilities DS: Summary Hospital Course Hospital Course: Paramjit was admitted to the hospital on 11/24 for a complicated UTI with fever, in addition to weakness and chronic joint instability/hypermobility. At that time, he had a Stevens catheter in place (placed given immobilized extremities and history of mild urinary retention requiring prn straight catheterizations). History includes Kamari-Danlos with joint instability, recent procedures that complicated stay: 1. 10/28/23: L hip cast from [place] (placed 10/27) for h/o dysplasia, acetabular retroversion and labral tear. This cast comes up around abdomen as well and is to be removed on Tuesday, 12/04. 2. 11/24/23: Bilateral arm casts placed at [facility] to stabilize midcarpal bones and R thumb tendon; as a result, he is unable to utilize crutches or a walker safely. During stay: - urine culture grew Klebsiella Ornithinolytica, sensitive to Ceftriaxone (completed 5 day course) - stevens remained out with intermittent leaking, no concerning retention by bladder scan - constipation, resolved on bowel regimen - GERD, seen by Speech on 11/29. Recommendation is for sitting up during meals (difficult with brace). Currently on Omeprazole Qam and Famotidine QHS, will increase to Omeprazole BID. Also has intermittent nausea - difficulty with ADLs; had HH after casts placed. TCU placement investigated, but no bed available until 12/01, at which time patient had enough help at home over the weekend that he elected to go home with family/HH Status at Discharge Overall status at discharge: patient is progressing back to baseline Time Spent with Patient Time attestation: Total time spent providing and/or coordinating discharge services: Time spent: Greater than 30 minutes Specific discharge activities: Medication management, multidisciplinary team Exam Narrative: Exam Narrative: Patient sitting up comfortably in bed, nontoxic Const: Vital Signs, click to edit/add: Vital Signs - 24 hr 12/01/23 20:00 12/02/23 07:00 12/02/23 08:00 Temperature 97.9 F 97.8 F Pulse Rate [Pulse Oximeter] 77 92 92 Respiratory Rate 18 18 18 Blood Pressure [Ri ght Arm] 122/73 114/71 Pulse Oximetry 95 98 Oxygen Delivery Me thod Room Air Room Air Discharge Plan Discharge Disposition: Home, Self-Care Date of Admission: 11/25/23 20:24 Attending Provider on Discharge: Hilaria Chan Primary Care Provider: Eliana Guerra Condition: Improved Anticipated Discharge Date/Time: 12/02/23 11:03 Discharge Medications: New clotrimazole 1 % Cream 1 applic topical BID PRNQty: 45 0RF Rx Instructions: as needed for skin irritation/yeast dermatitis ondansetron 4 mg tablet,disintegrating 4 mg PO Q8H PRN (Reason: nausea and vomiting) Qty: 10 0RF Continued aspirin 81 mg tablet,chewable 1 tab PO BID cyclobenzaprine 5 mg tablet 5 mg PO 3XD PRN famotidine 40 mg tablet 40 mg PO DAILY diclofenac sodium 1 % gel 2 g topical QID polyethylene glycol 3350 17 gram/dose powder 17 g PO DAILY oxybutynin chloride 5 mg tablet 5 mg PO 3XD Discharge Orders: Discharge Order (Routine); Ordered 12/02/23 Ordered By: Hilaria Chan Patient Education: Urinary Tract Infection in Men (DC) Additional Instructions: Keep Ortho appts as scheduled, see Charlie as scheduled. Activity Level: Activity as Tolerated Discharge Diet: High Protein/High Calorie Diet Detail: acid reflux meds as needed (Omeprazole vs Famotidine) Follow Up Appointments: Eliana Guerra MD [Primary Care Provider] - 12/13/23 12:45 pm (hospital f/u the week of December 11 please) Forms: [facility] Info Instructions
[2023-12-02] MEDS: ACETAMINOPHEN 325 MG TABLET 975 MG PO (11:44)
--- NOTE | 2023-12-02 12:46 | PC.NURSE ---
Shift Note: Pt cooperative with cares, VS WNL. Rates pain 5/10, he was given a PRN dose of tylenol and Oxycodone prior to discharge. He at 50% of his breakfast tray with minimal assistance and 100% of his lunch tray. Miralax and Senna given this morning however pt has not had a BM. He was discharged to home via wheelchair in the care of a friend at 1243. Pt verbalized understanding of discharge instructions and follow up appointments.
--- NOTE | 2023-12-02 13:15 | PC.SOCIAL ---
Addendum entered and electronically signed by RIVAS Aleman 12/02/23 15:35: Discharge planning: composite bond worker faxed pt's discharge summary and new home care face to face sheet to [facility] at fax #[phone]. Social work to follow-up as needed. Addendum entered and electronically signed by RIVAS Aleman 12/02/23 14:05: Discharge planning: D/C Summary was secure emailed to [email or web address] per her request. Social work to follow-up as needed. Original Note: Discharge planning: composite bond worker never heard back from Nieves at [facility]. composite bond worker did hear from Kwan Garcia at [facility] that they could offer the pt a shared bed at [facility]. composite bond worker spoke to pt about this and he wanted to talk to his parents, talk to his friends and do some personal research before deciding. Pt decided to decline the bed at [facility]. Pt will return home today with a friend who will stay with him until his mom gets home from work and then his mom will be home with him all weekend. Pt also shared that he spoke to his [facility] team and they will be meeting with him later today at his home. composite bond worker notified the provider and therapy teams on duty. composite bond worker also notified Padmini Brock with [facility]. composite bond worker secure emailed a copy of pt's discharge summary to Padmini [facility] per her request. A new face to face for home care was also filled out by the provider on duty. Social work to follow-up as needed.
== END 2023-12-02 12:49 | disposition home or self-care (01) | DRG 466 ==
LOC: ED 18:57 → MEDSURG 20:23
PROVIDERS: Family Medicine; Admitting Provider Family Medicine; Emergency Provider Family Medicine; PCP Family Medicine; Visit Provider Family Medicine
DX: T83.511A Infection and inflammatory reaction due to indwelling urethral catheter, initial encounter (principal); N39.0 Urinary tract infection, site not specified; R33.9 Retention of urine, unspecified; Q98.4 Klinefelter syndrome, unspecified; G89.29 Other chronic pain; M25.562 Pain in left knee; Q67.6 Pectus excavatum; L94.9 Localized connective tissue disorder, unspecified; Q79.60 Ehlers-Danlos syndrome, unspecified; M25.332 Other instability, left wrist; M25.331 Other instability, right wrist; M25.352 Other instability, left hip; E46 Unspecified protein-calorie malnutrition; R53.1 Weakness; R10.13 Epigastric pain; M76.72 Peroneal tendinitis, left leg; M76.71 Peroneal tendinitis, right leg; B96.89 Other specified bacterial agents as the cause of diseases classified elsewhere; R31.9 Hematuria, unspecified; N31.9 Neuromuscular dysfunction of bladder, unspecified; K59.00 Constipation, unspecified; K21.9 Gastro-esophageal reflux disease without esophagitis; T44.3X5A Adverse effect of other parasympatholytics [anticholinergics and antimuscarinics] and spasmolytics, initial encounter; Z68.20 Body mass index [BMI] 20.0-20.9, adult
CPT/HCPCS: 36415; 51701; 51702; 51798; 71045; 80048; 80053; 81001; 83605; 83735; 85025; 87086; 87186; 87631; 87651; 92610; 97110; 97116; 97161; 97166; 97530; 97535; 99285; A9270; J0696; J1100; J1650; J7030

== ENCOUNTER 2024-03-01 18:16 | Emergency (ER) | payer BC, SELFPAY ==
[2024-03-01 18:46] VITALS: BP 132/97; PULSE 109; RESP 18; TEMP 37.2; O2SAT 97; BMI 18.1
--- NOTE | 2024-03-01 21:22 | ED.GENADULT ---
HPI - General Adult General Chief complaint: Urogenital Problems, Male Stated complaint: urinary retention issues Time Seen by Provider: 03/01/24 21:13 History of Present Illness HPI narrative: This 23-year-old male has dysuria symptoms and typically self catheterizes. 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 He states that he has been having some nausea and vomiting and feels like he is volume depleted. He did go to a clinic appointment today in the clinician wanted to hydrate him tomorrow. He comes in because he got a new set of catheters for self catheterization. He has been having difficulty with these catheters and is requesting a Garza catheter for the time being. He states that he has lost 6 lb in the last week and attributes this to loss of fluids primarily. He arrives here with some tachycardia but otherwise has reassuring vital signs. Related Data Home Medications ?Medication ?Instructions ?Recorded ?Confirmed aspirin 81 mg chewable tablet 1 tab PO BID 11/08/23 01/03/24 cyclobenzaprine 5 mg tablet 5 mg PO 3XD PRN 11/08/23 01/03/24 diclofenac sodium 1 % topical gel 2 g topical QID 11/08/23 01/03/24 famotidine 40 mg tablet 40 mg PO DAILY 11/08/23 01/03/24 oxybutynin chloride 5 mg tablet 5 mg PO 3XD 11/28/23 01/03/24 polyethylene glycol 3350 17 17 g PO DAILY 11/28/23 01/03/24 gram/dose oral powder metoclopramide HCl PO 03/01/24 Previous Rx's ?Medication ?Instructions ?Recorded clotrimazole 1 % topical cream 1 applic topical BID PRN #45 grams 12/02/23 ondansetron 4 mg disintegrating 4 mg PO Q8H PRN nausea and 12/02/23 tablet vomiting #10 tabs oxybutynin chloride 5 mg tablet 5 mg PO DAILY #10 tabs 03/01/24 Allergies Allergy/AdvReac Type Severity Reaction Status Date / Time No Known Allergies Allergy Verified 03/01/24 18:54 Review of Systems Status of ROS: Reports: 10 or more systems reviewed and unremarkable except as noted in History and below Narrative: Constitutional: No fevers, no weight gain or loss. Eyes: No discharge. No vision changes. HENT: No congestion, no sore throat, no ear pain. Cardiovascular: No chest pain, no palpitations. Respiratory: No shortness of breath, no wheezes, no cough. Gastrointestinal: No abdominal pain, no diarrhea. Nausea with vomiting. Genitourinary: Urinary retention. Musculoskeletal: Normal range of motion. Skin: No rashes, no pruritis. Neurological: No dizziness, weakness, sensory change, speech change. Endo/Heme/Allergies: No bruising or bleeding. No polydipsia. Pysch: no suicidality, no anxiety, no insomnia. All other systems reviewed and are negative. 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) ?Q98.4 - Klinefelter syndrome, unspecified (ICD-10) 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) ?Q79.60 - Kamari-Danlos syndrome, unspecified (ICD-10) Connective tissue disorder (01/04/18) ?M35.9 - Systemic involvement of connective tissue, unspecified (ICD-10) Tension-type headache (09/24/20) ?G44.209 - Tension-type headache, unspecified, not intractable (ICD-10) 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) ?M26.609 - Unspecified temporomandibular joint disorder, unspecified side (ICD-10) Labral tear of right hip joint (12/12/19) ?S73.191A - Other sprain of right hip, initial encounter (ICD-10) Scoliosis (01/04/18) ?M41.9 - Scoliosis, unspecified (ICD-10) Polyarthralgia ?M25.50 - Pain in unspecified joint (ICD-10) Pes planus (03/23/18) ?M21.40 - Flat foot [pes planus] (acquired), unspecified foot (ICD-10) Pectus excavatum (12/29/13) ?Q67.6 - Pectus excavatum (ICD-10) Pain in left wrist (07/01/20) ?M25.532 - Pain in left wrist (ICD-10) Hip pain, bilateral (12/12/19) ?M25.551 - Pain in right hip (ICD-10) ?M25.552 - Pain in left hip (ICD-10) Myofascial pain syndrome (09/24/20) ?M79.18 - Myalgia, other site (ICD-10) 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) ?M35.7 - Hypermobility syndrome (ICD-10) Hypogonadism male (03/23/18) ?E29.1 - Testicular hypofunction (ICD-10) Hypermobility of joint (09/24/20) ?M24.9 - Joint derangement, unspecified (ICD-10) Foot drop, left ?M21.372 - Foot drop, left foot (ICD-10) Exertional headache (04/18/18) ?G44.84 - Primary exertional headache (ICD-10) De Quervain's tenosynovitis (05/23/20) ?M65.4 - Radial styloid tenosynovitis [de Quervain] (ICD-10) Congenital pes planus (03/23/18) ?Q66.50 - Congenital pes planus, unspecified foot (ICD-10) Chronic back pain (04/21/23) ?M54.9 - Dorsalgia, unspecified (ICD-10) ?G89.29 - Other chronic pain (ICD-10) Cell chromosome examination abnormal (03/23/18) ?R89.8 - Other abnormal findings in specimens from other organs, systems and tissues (ICD-10) Bilateral tinnitus (09/24/20) ?H93.13 - Tinnitus, bilateral (ICD-10) Atrophy of testis (03/23/18) ?N50.0 - Atrophy of testis (ICD-10) 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) ?M26.639 - Articular disc disorder of temporomandibular joint, unspecified side (ICD-10) Arthralgia of temporomandibular joint (09/24/20) ?M26.629 - Arthralgia of temporomandibular joint, unspecified side (ICD-10) Acquired pectus carinatum ?M95.4 - Acquired deformity of chest and rib (ICD-10) Dyspepsia ?R10.13 - Epigastric pain (ICD-10) Malnutrition ?E46 - Unspecified protein-calorie malnutrition (ICD-10) Klinefelter syndrome ?Q98.4 - Klinefelter syndrome, unspecified (ICD-10) Connective tissue disorder ?M35.9 - Systemic involvement of connective tissue, unspecified (ICD-10) Weakness ?R53.1 - Weakness (ICD-10) Instability of left hip joint ?M25.352 - Other instability, left hip (ICD-10) Wrist joint instability ?M25.339 - Other instability, unspecified wrist (ICD-10) 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 - Kamari-Danlos syndrome, unspecified (ICD-10) Scaphoid fracture ?S62.009A - Unspecified fracture of navicular [scaphoid] bone of unspecified wrist, initial encounter for closed fracture (ICD-10) Klinefelter syndrome ?Q98.4 - Klinefelter syndrome, unspecified (ICD-10) 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 - Pectus excavatum (ICD-10) Contusion of great toe of left foot ?S90.112A - Contusion of left great toe without damage to nail, initial encounter (ICD-10) Chronic patellofemoral pain of left knee ?M25.562 - Pain in left knee (ICD-10) ?G89.29 - Other chronic pain (ICD-10) Tear of triangular fibrocartilage complex (TFCC) of right wrist (~07/2021) ?S63.591A - Other specified sprain of right wrist, initial encounter (ICD-10) Surgical History (Updated 12/29/23 @ 12:45 by Alina Machuca) Status post arthroscopy of hip ?Z98.890 - Other specified postprocedural states (ICD-10) History of carpal tunnel surgery of left wrist (02/02/21) ?Z98.890 - Other specified postprocedural states (ICD-10) Social History (Updated 11/25/23 @ 20:12 by Edgar Lopez MD) Narrative: He lives with his mother. His mother has left for trip to [place] 9 days ago. He is mostly home alone. His father, who has significant disabilities, comes to stay with him at times. He also has therapists and home health who come into the home daily. 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 He has been unable to work recently because of his multiple disabilities. He does not smoke. He drinks alcohol a couple times a week. He occasionally uses cannabis. What is your current living situation?: I presently have a place to live Problems where you live: no known problems Problems where you live details: n/a In the past 12 months, utilities in danger of being shut off: no In past 12 months, lack of transportation kept you from medical appts, meetings, work, or getting things needed for daily living: yes In the past 12 mos, have been you worried that your food would run out before you had money to buy more?: never true In the past 12 mos, the food you bought just didn't last and you didn't have money to buy more?: never true Smoking Status: Never smoker Do you use any of these nicotine containing products: None Second hand tobacco smoke exposure: Yes (occasionally) How often do you have a drink containing alcohol: 2-4 times a month How many standard drinks containing alcohol do you have on a typical day: 3 or 4 How often do you have six or more drinks on one occasion: Less than monthly AUDIT-C Alcohol total score: 4 Non-prescribed substance use: denies use Caffeine: Yes (rarely) How often does anyone, including family, friends and others, physically hurt you: never How often does anyone, including family, friends and others, insult or talk down to you: never How often does anyone, including family, friends and others, threaten you with harm: never How often does anyone, including family, friends and others, scream or curse at you: never service: No Health Related Social Needs: transportation insecurity (Z59.82) Exam Narrative: Exam Narrative: Constitutional: Well-developed, well-nourished, no acute distress. HEENT: Normocephalic, atraumatic. Neck: Normal range of motion. Nontender. Supple. Heart: Intact distal pulses. Tachycardia, rate around 110 beats per minute. Lungs: No chest discomfort. No wheezes, rhonchi, or rales. Abdomen: Nontender. Back: Normal range of motion. Extremities: Normal range of motion. No injury. Skin: Intact. No rash. Warm. No erythema or pallor. Neurologic: No altered sensation. No weakness. Alert and oriented. Psychiatric: No suicidality. No anxiety or depression. No insomnia. Nursing notes and vitals signs are reviewed. Const: Vital Signs, click to edit/add: Vital Signs - 24 hr 03/01/24 18:46 Temperature 99 F Pulse Rate [Right Pulse Oximeter] 109 H Respiratory Rate 18 Blood Pressure [Ri ght Upper Arm] 132/97 H Pulse Oximetry 97 Oxygen Delivery Me thod Room Air Course Vital Signs Vital signs: Initial Vital Signs Temperature 99 F 03/01/24 18:46 Temperature Source Temporal Artery Scan 03/01/24 18:46 Pulse Rate 109 H 03/01/24 18:46 Pulse Rhythm Regular 03/01/24 18:46 Respiratory Rate 18 03/01/24 18:46 Blood Pressure 132/97 H 03/01/24 18:46 Blood Pressure Mean 108 H 03/01/24 18:46 Blood Pressure Position Sitting 03/01/24 18:46 Pulse Oximetry 97 03/01/24 18:46 Oxygen Delivery Method Room Air 03/01/24 18:46 Vital Signs Temperature 99 F 03/01/24 18:46 Pulse Rate 109 H 03/01/24 18:46 Respiratory Rate 18 03/01/24 18:46 Blood Pressure 132/97 H 03/01/24 18:46 Pulse Oximetry 97 03/01/24 18:46 Oxygen Delivery Method Room Air 03/01/24 18:46 Temperature 99 F 03/01/24 18:46 Pulse Rate 109 H 03/01/24 18:46 Respiratory Rate 18 03/01/24 18:46 Blood Pressure 132/97 H 03/01/24 18:46 Pulse Oximetry 97 03/01/24 18:46 Oxygen Delivery Method Room Air 03/01/24 18:46 Medications Administered Medications: Generic Name Dose Route Start Last Admin Trade Name Freq PRN Reason Stop Dose Admin Sodium Chloride 1,000 mls @ 1,000 mls/hr 03/01/24 21:30 03/01/24 21:36 0.9 % Sodium Chloride 1000 Ml IV 03/01/24 22:29 1,000 mls/hr .Q1H BARBARA Administration Discontinued Medications Generic Name Dose Route Start Last Admin Trade Name Freq PRN Reason Stop Dose Admin Ondansetron HCl 4 mg 03/01/24 21:21 03/01/24 21:37 Ondansetron 2 Mg/Ml Inj IVP 03/01/24 21:22 4 mg ONCE ONE Administration Medical Decision Making MDM Narrative Medical decision making narrative: This 23-year-old male comes in stating that he has had difficulty getting a catheter in. He has Kamari Danlos disease and associated dysuria with urinary retention. He is requesting a Garza catheter which was placed and yielded 600 mL of urine. An IV was established where he received a L of normal saline and 4 mg of Zofran. This helped him feel better. He states that he has not been eating much recently because of nausea symptoms. He has not taken any medicine for nausea but from a clinic appointment recently he did get a prescription for Reglan which he has not yet filled. The patient is doing better with these treatments and is okay to be discharged home. He did receive an [employer] prescription for Zofran. He will be able to go home with a Garza catheter in place and does have follow-up appointments with his primary physicians. Discharge Plan Discharge Clinical Impression: Acute urinary retention, Fluid volume depletion Patient Disposition: Home, Self-Care Condition: Improved Additional Instructions: Take medications as prescribed. Take frequent sips of fluids and increase diet as tolerated. Follow up with MD as needed and scheduled or return if worsening. Prescriptions: New oxybutynin chloride 5 mg tablet 5 mg PO DAILY Qty: 10 2RF No Action metoclopramide HCl [Reglan] PO aspirin 81 mg tablet,chewable 1 tab PO BID cyclobenzaprine 5 mg tablet 5 mg PO 3XD PRN famotidine 40 mg tablet 40 mg PO DAILY diclofenac sodium 1 % gel 2 g topical QID polyethylene glycol 3350 17 gram/dose powder 17 g PO DAILY oxybutynin chloride 5 mg tablet 5 mg PO 3XD clotrimazole 1 % Cream 1 applic topical BID PRNQty: 45 0RF Rx Instructions: as needed for skin irritation/yeast dermatitis ondansetron 4 mg tablet,disintegrating 4 mg PO Q8H PRN (Reason: nausea and vomiting) Qty: 10 0RF Follow Up/Referrals: Eliana Guerra MD [Primary Care Provider] - Stand Alone Forms: [employer] Info Instructions
[2024-03-01] MEDS: 0.9 % SODIUM CHLORIDE 1000 ml 1,000 ML IV (21:36)
[2024-03-01] MEDS: ONDANSETRON 2 MG/ML inj 4 MG IVP (21:37)
--- OUTSIDE RECORDS SUMMARY | 2024-03-01 22:11 | XMS_ITS | Clinical Summary ---
Author Organization [facility] Address [address] [address] Care Team Providers Care Fixed Income Manager Name Role Phone Eliana Guerra MD Primary Care Provider [phone] Source Comments You are receiving this document as you are listed as the primary care provider,follow-up provider, or the patient has been referred to you for consultation.This is in compliance with the Medicare and[facility] EHR Incentive Program,which states Providers who transition their patient to another setting of careor provider of care or refers their patient to another provider of care shouldprovide summary care record for each transition of care or referral. [facility] Allergies No known active allergies Medications No known medications Active Problems No known active problems Social History Tobacco Use Types Packs/Day Years Used Date Smoking Tobacco: Never Assessed Sex and Gender Information Value Date Recorded Sex Assigned at Not on file Gender Identity Not on file Sexual Orientation Not on file Plan of Treatment Upcoming Encounters Date Type Department Care Team ([facility] Contact Info) Description 03/06/2024 2:40 PM SLEEVE SEPARATOR Appointment [facility] [address] [address] Naya Neumann PA-C [address] [place] [address] 05/11/2024 10:30 AM CDT Appointment [place] [address] [facility] [address] [place] [id number] Seth Lira MD [address] [place] [id number] Health Maintenance Due Date Last Done Comments [...] 02/23/2017 HPV Vaccine Completed 10/28/2020, 02/08, 10/19/2019 Care Teams Fixed Income Manager Relationship Specialty Start Date End Date Eliana Guerra MD [address] [place] [address] PCP - General Family Practice 12/04/19
--- OUTSIDE RECORDS SUMMARY | 2024-03-01 22:11 | XMS_ITS | Encounter Summary ---
Author Organization [facility] Address [address] [place] [id number] Care Team Providers Care Core Driller Helper Name Role Phone Elsewhere, Pcp Primary Care Provider Unavailabl e Reason for Visit * Outpatient (Routine) - Closed Specialty Diagnoses / Procedures Referred By Ye lund Referred To Contact Urology Kate Egan P.A.-CMackenzie [address] [place] [phone] Phone: tel: fax: Kate Egan, P.A.-CMackenzie [address] [place] [phone] Phone: tel: fax: Referral ID Status Reason Start Date Expiration Date Visits Re quested Visits Authorized [id number] Closed 11/21/2023 05/22/2025 1 1 Encounter Details Date Type Department Care Team (Late st Contact Info) Description 01/30/2024 3:30 PM EMERGENCY PLANNING AND RESPONSE MANAGER Telemedicine Department of Urology in [place], [place] [address] [place] [phone] Kate Egan, P.A.-C. [address] [place] [phone] Retention Urinary (Primary Dx) Social History Tobacco Use Types Packs/Day Years Used Date Smoking Tobacco: Never Smokeless Tobacco: Never Alcohol Use Standard Drinks/Week Comments Yes 1 (1 standard drink = 0.6 oz pur e alcohol) [facility] Utilities Answer Date Recorded In the past 12 months has th e [employer], gas, oil, or water company threatened to [...] 0 07/07/2023 [facility] - Occupational Stress Questionnaire Answer [...] living situation today? I have a [address] place to live 05/22/2023 Education Answer Date Recorded What is the highest level of school you have completed or the highest degree you have received? Some college, no degree 05/24/2020 Sex and Gender Information Value Date Recorded Sex Assigned at Male 10/29/2020 12:38 PM CDT Legal Sex Male 1:45 PM EMERGENCY PLANNING AND RESPONSE MANAGER Gender Identity Male 07/15/2019 8:59 AM CDT Sexual Orientation Straight 07/15/2019 8: 59 AM CDT documented as of this encounter Progress Notes * Kate Egan P.A.-C. - 01/30/2024 3:30 PM CST SUBJECTIVE CHIEF COMPLAINT/PURPOSE FOR VISIT Urinary retention Patient's visit is completed virtually, via video HISTORY OF PRESENT ILLNESS is a very pleasant 23 y.o.male whom I previously met in August of 2023 for urinary symptoms. As part of the evaluation, he was noted to have urinary retention with PVRs of 750 mL. He has been performing self catheterization twice daily. Patient is not having any difficulty with passage of the catheter and for the most part has remained dry. He is able to void on his own. He has experienced occasional episodes of nocturnal enuresis and if he can not make it to the bathroom on a schedule, he may note some incontinence events. His urinary leakage has however improved with self catheterization. Current catheterize residuals are unknown. Patient has history of Kamari Danlos syndrome and required spica casting of his left hip in the fall. During that time, he had difficulty with self catheterization and indwelling Garza catheter was placed. He states he also deals with wrist pain and this can limit his fine motor skills. He has required some casting of his risks in the past as well. Patient is concerned about bladder function if he requires casting again. Denies difficulty with self catheterization currently. MEDICAL HISTORY Past Medical History: Diagnosis Date [...] Acetabular Rim.; Surgeon: Zoltan Haines M.D.; Location: [facility] 15 OR OTHER SURGICAL HISTORY ryan bar [...] Jose Crawford M.D.; Location:[facility] 15 OR OBJECTIVE ASSESSMENT / PLAN #1 Urinary retention, and intermittent catheterization #2 Pelvic floor dysfunction, working with pelvic floor PT I had the pleasure of meeting with in virtual follow-up today. He is currently performing self catheterization twice daily. He has not had difficulty with this recently, however is concerned that when he has flares of his risk pain his fine motor skills are limited. He ultimately will likely require casting in the future. We discussed potential management options of his bladder in thattime if he is unable to perform self catheterization. This may include placement of an indwelling Garza catheter versus having another individual perform in and out catheterization for him. I would encourage him to continue to work on pelvic floor physical therapy. We did discuss consideration of cy stoscopy and formal urodynamic testing for further assessment of bladder function. Patient understands that it is possible based upon results of urodynamic testing recommendation may be for continuedcatheterization, however. At this point in time he would like to defer any additional diagnostics. We did discuss the use of SpeediCath as this may be more efficient for him versus utilizing separatecatheters and lubrication. I will have our team send an updated script to the [facility] store in this regard. Encouraged him to have timed voiding and timed catheterization as he does have impairedsensation of bladder filling. If he is noting nocturnal enuresis, would recommend catheterization prior to bed for a total of CIC 3 times daily. Patient can follow on an as-needed basis. All questions addressed, patient expressed understanding. Total time: 30 min Signed by: Kate Egan P.A.-C. 01/30/2024 4:27 PM EMERGENCY PLANNING AND RESPONSE MANAGER GENCY PLANNING AND RESPONSE MANAGER documented in this encounter Miscellaneous Notes * Addendum Note - Naif Rodarte R.N. - 01/30/2024 3:30 PM CSTAddended by: NAIF RODARTE on: 01/30/2024 04:53 PM Modules accepted: Orders GENCY PLANNING AND RESPONSE MANAGER documented in this encounter Plan of Treatment Not on file documented as of this encounter Visit Diagnoses Diagnosis Retention Urinary- Primary documented in this encounter Additional Health Concerns Assessment Noted Time PHQ-9 Depression Total Score: 5 07/07/19 24 9:17 PM CDT documented as of this encounter Care Teams Core Driller Helper Relationship Specialty Start Date End Date Elsewhere, Pcp PCP - General Internal Medicine 05/22/18 documented as of this encounter
--- OUTSIDE RECORDS SUMMARY | 2024-03-01 22:11 | XMS_ITS ---
Author Organization [facility] Address [address] [place] [address] Care Team Providers Care Organizational Development Manager Name Role Phone Unavailable Unavailable Unavailable Surgery Details Not on file Complications Check Surgery Details section. Procedure Estimated Blood Loss Check Surgery Details section. Procedure Findings Check Surgery Details section. Procedure Specimens Taken Check Surgery Details section.
--- OUTSIDE RECORDS SUMMARY | 2024-03-01 22:11 | XMS_ITS | Clinical Summary ---
Author Organization [facility] Address [address] [place] [address] Care Team Providers Care Waterproofer Helper Name Role Phone Elsewhere, Pcp Primary Care Provider Unavailabl e Source Comments Patient records contain information from all sites at [facility]. For routine questions regarding patient records, call [phone] during business hours, M-F 8:00 AM - 5:00 PM Central Time. Record requests for emergency care only can be directed to [phone] at any time.[facility] Allergies No known active allergies Medications * [...] Take with or without food. 90 tablet 06/07/19 24 Active tadalafiL (Cialis) 5 mg tablet Take 1 tablet (5 mg total) by mouth daily. 90 tablet 07/11/19 24 Active clotrimazole (Lotrimin) 1 % cream 1 APPLICATION TOPICALLY TWICE DAILY NEEDED. FOR SKIN IRRITATION/YEAS T DERMATITIS 12/02/19 24 Active ondansetron ODT (Zofran-ODT) 4 mg disintegrating tablet DISSOLVE 1 TABLET ON THE TONGUE EVERY 8 HOURS NEEDED FOR NAUSEA OR VOMITING 12/02/19 [address] aspirin [address] tablet Take 81 mg by mouth 2 (two) times a day. With meals Active aspirin 81 mg chewable tablet Chew 1 tablet (81 mg total) 2 (two) times a day for 21 days. 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 Date Type Department Care Team Description 03/01/2024 Orders Only Department of Urology in [place], [place] [address] [place] [address] Kate Egan P.A.-C. Retention Urinary (Primary Dx) 02/22/2024 8:15 AM PIPE LINE REPAIRER Telemedicine Department of Sports Medicine in [place], [place] [address] [place] [phone] Ahsan Talbert M.D., Ph.D. Pain Hip Right (Primary Dx) 02/16/2024 8:00 AM PIPE LINE REPAIRER Office Visit Department of Physical Medicine and Rehabilitation in [address] [phone] Jak Drummond M.D. Hypermobility Joint (Primary Dx); Kamari Danlos Syndrome Unspecified (HCC) 01/30/2024 3:30 PM PIPE LINE REPAIRER Telemedicine Department of Urology in [place], [place] [address] [place] [phone] Kate Egan P.A.-C. Retention Urinary (Primary Dx) 01/04/2024 1:15 PM PIPE LINE REPAIRER Clinical Communication Virtual Review in [address] [phone] 12/29/2023 Orders Only Department of Orthopedic Surgery in [address] [phone] Candida Lucero PMackenzieAMackenzie-C. 12/29/2023 Clinical Communication Department of Sports Medicine in [address] [phone] Ahsan Talbert M.D., Ph.D. 12/05/2023 7:52 AM CDT - 12/05/2023 2:07 PM CDT Hospital Encounter Department of Orthopedic Surgery in [address] [phone] Ahsan Talbert M.D., Ph.D. Hypermobility Joint Discharge Disposition: Home or Self Care 12/05/2023 Clinical Communication Department of Physical Medicine and Rehabilitation in [address] [phone] Jak Drummond M.D. Appt Request (1 yr follow up on joint issues with Dr Drummond) 12/05/2023 Clinical Communication Department of Orthopedic Surgery in [address] [phone] Jasper Jimenez III, M.D. Appt Request from Last 3 Months Family History Medical [...] drink = 0.6 oz pur e alcohol) [facility] Utilities Answer Date Recorded In the past 12 months has e [employer], gas, oil, or water [employer] threatened to shut off services in your [...] often do you attend chur ch or advent services? More than 4 times per year 2022 Do you belong to any clubs o r organizations such as adventism groups, unions, fraternal or athletic groups, or [...] Answer Date Recorded PHQ-2 Score 0 07/07/2023 [facility] Occupational Stress Questionnaire Answer [...] PM CDT Legal Sex Male 1:45 PM PIPE LINE REPAIRER Gender Identity Male 07/15/2019 8:59 AM CDT Sexual Orientation Straight 07/15/2019 8: 59 AM CDT Last Filed Vital Signs Vital Sign Reading Time Taken Comments Blood Pressure 126/84 05/23/2023 8:08 AM CDT Pulse 91 05/23/2023 8:08 AM CDT Temperature 37.3 C (99.1 F) 01/20/2022 10:47 AM PIPE LINE REPAIRER Respiratory Rate 30 02/11/2021 10:10 AM PIPE LINE REPAIRER Oxygen Saturation 99% 02/11/2021 10:15 AM PIPE LINE REPAIRER Inhaled Oxygen Concentration - - Weight 65.8 kg (145 lb) 07/08/2023 9:50 AM CDT Height 185.4 cm (6' 1) 07/08/2023 9:50 AM CDT Body Mass Index 19.13 07/08/2023 9:50 AM CDT Plan of Treatment Health Maintenance Due Date Last Done Comments Hepatitis C Screening 2000 Depression Screening (Annual PHQ-2) 02/08/2024 DTaP,Tdap,and Td Vaccines (7 - Td or Tdap) 11/19/2032 11/19/2022, 09/22/2012, 11/11/2004, Additional history exists Pneumococcal vaccine (0-49 years) Aged Out 04/21/2001, 01/12/2001, 2000 No longer eligible based on patient's age to complete this topic Hepatitis B Vaccines Completed 10/20/2001, 01/12/2001, 2000 IPV Vaccines Completed 11/11/2004, 04/07, 01/12/2001, Additional history exists HPV Vaccines Completed 10/28/2020, 02/08, 10/19/2019 COVID-19 Vaccine Completed 11/02/2023, 11/2022, 02/18/2021, Additional history exists Influenza Vaccine Completed 11/02/2023, , 04/16/2022, Additional history exists Medical Devices Implanted Type Area Manager Erp Device Identifier Shelf Expiration Date Model / Serial / Lot Hardware E.G. Pins/Screws/R ods Hardware e.g. pins/screws/ rods Chest Wall [address] Pk Hip Mini 2.4x8.9 - [id number] Implanted:Qty : 1 on 02/13/2020 by Zoltan Haines M.D. at [facility] Hardware e.g. pins/screws/ rods Right: Hip Arthrex [id number] 11/06/2024 AR-2924PH S / / [id number] [address] Pk Hip Mini 2.4x8.9 - [id number] Implanted:Qty : 2 on 02/13/2020 by [facility]olt[facility] M[facility] Hardware e.g. pins/screws/ rods Right: Hip Arthrex [id number] 10/07/2024 AR-2924PH S / / [id number] [address] Pk Hip Mini 2.4x8.9 - [id number] Implanted:Qty : 1 on 02/13/2020 by Zoltan Haines M.D. at [facility] Hardware e.g. pins/screws/ rods Right: Hip Arthrex [id number] 07/07/2024 AR-2924PH S / / [id number] Kt Fix Intbrc Hnd Wrst - [id number] Implanted:Qty : 1 on 02/02/2021 by Jose Crawford M.D. at [facility] Hardware e.g. pins/screws/ rods Left: Wrist Arthrex [id number] 09/06/2025 AR-8978-C P / / [id number] Insurance CARE Care Teams Waterproofer Helper Relationship Specialty Start Date End Date Elsewhere, Pcp PCP - General Internal Medicine 05/22/18
--- OUTSIDE RECORDS SUMMARY | 2024-03-01 22:11 | XMS_ITS | Continuity of Care Document ---
Author Organization [facility] Address [address] [address] [place] [address] Phone Care Team Providers Care Rehab Tech Name Role Phone Irineo Graham MD, Tato Unavailable Unavailabl e Advance Directives Directive Yes / No Effective Date File Name No Information Encounters Encounter Description Practice Location Reason(s) For Visit Diagnoses Date Provider Providers Copied on Encounter [facility] [employer], [address] [address], [place], [place], [id number], tel:[phone] [facility] No Information Irineo Godwin. [address], [id number], [place]. tel:[phone] [facility] [employer] [facility], [address] [address], [place], [place], [id number], tel:[phone] [facility] No Information Irineo Godwin. [address], [id number], [place]. tel:[phone] Family History Family Member Type Diagnosis Age At Onset No Information Immunizations Vaccine Date Status Comments SARS-COV-2 (COVID-19) vaccin e, mRNA, spike protein, LNP, preservative free, 50 mcg/0.5 mL dose administered Note: [facility] bi-direct ional interface ; Source: Other Registry Afluria Qd administered Note: [facility] bi-directional interface ; Source: Other Registry tetanus toxoid, reduced diphtheria toxoid, and acellular pertussis vaccine, adsorbed administered Note: [facility] b i-directional interface ; Source: Other Registry Afluria Qd administered Note: M [facility] bi-directional interface ; Source: Other Registry SARS-COV-2 (COVID-19) vaccin e, mRNA, spike protein, LNP, bivalent, preservative free, 30 mcg/0.3 mL dose, shayy-sucrose formulation administered Note: [facility] bi-direct ional interface ; Source: Other Registry SARS-COV-2 (COVID-19) vaccin e, mRNA, spike protein, LNP, preservative free, 30 mcg/0.3mL dose administered Note: [facility] bi-direct ional interface ; Source: Other Registry Human Papillomavirus 9-noris t vaccine administered Note: [facility] bi-direct ional interface ; Source: Other Registry Afluria Qd administered Note: M [facility] bi-directional interface ; Source: Other Registry SARS-COV-2 (COVID-19) vaccin e, mRNA, spike protein, LNP, preservative free, 100 mcg/0.5mL dose or 50 mcg/0.25mL dose administered Note: [facility] bi -directional interface ; Source: Other Registry SARS-COV-2 (COVID-19) vaccin e, mRNA, spike protein, LNP, preservative free, 100 mcg/0.5mL dose or 50 mcg/0.25mL dose administered Note: [facility] bi -directional interface ; Source: Other Registry Human Papillomavirus 9-noris t vaccine administered Note: [facility] bi-direct ional interface ; Source: Other Registry Human Papillomavirus 9-noris t vaccine administered Note: [facility] bi-direct ional interface ; Source: Other Registry Afluria Qd administered Note: M [facility] bi-directional interface ; Source: Other Registry Havrix pediatric administered Note: [facility] bi-directional interface ; Source: Other Registry Afluria Qd administered Note: M [facility] bi-directional interface ; Source: Other Registry Afluria Qd administered Note: M [facility] bi-directional interface ; Source: Other Registry Havrix pediatric administered Note: [facility] bi-directional interface ; Source: Other Registry meningococcal oligosaccharid e (groups A, C, Y and W-135) diphtheria toxoid conjugate vaccine (MCV4O) administered Note: [facility] bi-direct ional interface ; Source: Other Registry meningococcal oligosaccharid e (groups A, C, Y and W-135) diphtheria toxoid conjugate vaccine (MCV4O) administered Note: [facility] bi-direct ional interface ; Source: Other Registry Afluria Qd administered Note: M [facility] bi-directional interface ; Source: Other Registry varicella virus vaccine administered Note : [facility] bi-directional interface ; Source: Other Registry tetanus toxoid, reduced diphtheria toxoid, and acellular pertussis vaccine, adsorbed administered Note: [facility] b i-directional interface ; Source: Other Registry poliovirus vaccine, inactivated administe red Note: [facility] bi- directional interface ; Source: Other Registry measles, mumps and rubella v irus vaccine administered Note: [facility] bi-direct ional interface ; Source: Other Registry diphtheria, tetanus toxoids and acellular pertussis vaccine administered Note: [facility] b i-directional interface ; Source: Other Registry varicella virus vaccine administered Note : [facility] bi-directional interface ; Source: Other Registry Haemophilus influenzae type b conjugate and Hepatitis B vaccine administered Note: [facility] bi- directional interface ; Source: Other Registry measles, mumps and rubella v irus vaccine administered Note: [facility] bi-direct ional interface ; Source: Other Registry poliovirus vaccine, inactivated administe red Note: [facility] bi- directional interface ; Source: Other Registry diphtheria, tetanus toxoids and acellular pertussis vaccine administered Note: [facility] b i-directional interface ; Source: Other Registry Pneumovax administered Note: [facility] bi-d irectional interface ; Source: Other Registry Haemophilus influenzae type b conjugate and Hepatitis B vaccine administered Note: [facility] bi- directional interface ; Source: Other Registry poliovirus vaccine, inactivated administe red Note: [facility] bi- directional interface ; Source: Other Registry Pneumovax administered Note: [facility] bi-d irectional interface ; Source: Other Registry diphtheria, tetanus toxoids and acellular pertussis vaccine administered Note: [facility] b i-directional interface ; Source: Other Registry Haemophilus influenzae type b conjugate and Hepatitis B vaccine administered Note: [facility] bi- directional interface ; Source: Other Registry poliovirus vaccine, inactivated administe red Note: [facility] bi- directional interface ; Source: Other Registry diphtheria, tetanus toxoids and acellular pertussis vaccine administered Note: [facility] b i-directional interface ; Source: Other Registry Pneumovax administered Note: [facility] bi-d irectional interface ; Source: Other Registry Payers Payer name Insurance type Covered constitution party ID Authoriza tion(s) No Information Social History Type Description Quantity Date Captured Comments Sex Male Smoking Status No Information Chief Complaint And Reason For Visit No Information Reason For Referral Reason For Referral No Information Plan Of Treatment Date Type Action Status Appointment Paramjit Boyce BOOKED History Of Present Illness Encounter Date Complaint History Of Prese nt Illness No Information Functional Status Date Functional Assessmen t No Information Instructions Date Instruction Additional Infor mation No Information Assessments Type Assessment Date No Information Patient Care Teams Name Effective Dates (start - stop) Status Members No Information
--- OUTSIDE RECORDS SUMMARY | 2024-03-01 22:12 | XMS_ITS | Encounter Summary ---
Author Organization [facility] Address [address] [place] [address]. [place] [address] Care Team Providers Care Drive Worker Name Role Phone Unavailable Primary Care Provider Unavailabl e Reason for Visit * Reason Onset Date Comments Previsit 01/19/2024 Encounter Details Date Type Department Care Team (Late st Contact Info) Description 01/19/2024 PRE VISIT [facility] [address] [place] [phone] Kei Eugene MD [address] [place] [phone] Previsit Social History Tobacco Use Types Packs/Day Years Used Date Smoking Tobacco: Never Assessed Sex and Gender Information Value Date Recorded Sex Assigned at Not on file Legal Sex Male 9:18 AM MANAGER TRANSFUSION Gender Identity Not on file Sexual Orientation Not on file documented as of this encounter Miscellaneous Notes * Telephone Encounter - Eliana Alcaraz - 01/17/2024 9:03 AM CST Action January 17, 2024 9:07 AM MT Action Taken Sent a request for records and imaging from [facility]. DIAGNOSIS: 2ND OPINION - HIP APPOINTMENT DATE: 01/19/2024 NOTES STATUS DETAILS OFFICE NOTE from referring provider In process [facility] - Dr. Stubbs OFFICE NOTE from other specialist In process INJECTIONS DONE IN RADIOLOGY In process MRI In process CT SCAN In process XRAYS (IMAGES & REPORTS) In process GER TRANSFUSION documented in this encounter Plan of Treatment Scheduled Procedures Name Priority Associated Diagnoses Date/Ti me SURGICAL EXTRACTION, TOOTH Chronic pericoronitis documented as of this encounter Visit Diagnoses Not on filedocumented in this encounter
--- OUTSIDE RECORDS SUMMARY | 2024-03-01 22:12 | XMS_ITS | Clinical Summary ---
Author Organization [facility] Address [place], [place] [address] Care Team Providers Care Retail Business Manager Name Role Phone Eliana Guerra MD Primary Care Provider Allergies No known active allergies Medications acetaminophen (TYLENOL) 500 mg capsule Take 1,000 mg by mouth every 6 hours if needed. 2 Active diclofenac topical (VOLTAREN) 1 % gelIndications:P atellofemoral pain syndrome of both knees,Instabilit y of both shoulder joints 2-4 grams on knees and shoulder 100 g 2 2 Active tadalafiL (CIALIS) 5 mg tablet Take 5 mg by mouth. 2 Active polyethylene glycol-electroly te (GOLYTELY) 236-22.74-6.74 -5.86 gram suspension Drink 1st portion of prep at 6 PM the evening before. 2nd portion must be started 3 hours before and finished 2 hours prior to report time 2 Active diclofenac topical (Voltaren) 1 % gelIndications:R ight knee pain, unspecified chronicity,Recur rent right knee instability Apply 2 g topically to affected area(s) four times daily. 100 g 2 4 Active famotidine (PEPCID) 40 mg tabletIndication s:Heart burn Take 1 Tablet (40 mg) by mouth once daily. 90 Tablet 1 4 Active tamoxifen (NOLVADEX) 20 mg tablet Take 20 mg by mouth once daily. 4 Active aspirin (ECOTRIN) 81 mg enteric coated tablet Take 81 mg by mouth two times daily with meals. Active durable medical equipment (DME)Indications :Chronic hip pain, unspecified laterality Manual reclining wheelchair with bilateral LE elevating leg rests 1 Each 4 Active Diaper,Brief, Adult,Disposable Indications:Noct urnal enuresis For home use. 90 Each 4 Active metoclopramide (REGLAN) 5 mg tabletIndication s:Early satiety,Delayed gastric emptying Take 1 Tablet (5 mg) by mouth three times daily before meals. 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 Chronic back pain 04/21/2023 Klinefelter syndrome 07/25/2019 Exertional headache 04/18/2018 Cell chromosome examination abnormal 03/23/2018 Congenital pes planus 03/23/2018 Atrophy of testis 03/23/2018 Tall stature 03/23/2018 Connective tissue disorder 01/04/2018 Underweight in adolescence 01/04/2018 Scoliosis 01/04/2018 Congenital pectus excavatum 12/29/2013 Encounters Date Type Department Care Team Description 03/01/2024 1:10 PM AIR CARGO AGENT Office Visit [facility] [address] [place] [address] Eliana Guerra MD Gi Problem; Urinary Problem 02/29/2024 12:00 PM AIR CARGO AGENT Office Visit [address] [phone] Una Apodaca PsyD, LP Individual Therapy 02/29/2024 Travel 02/24/2024 12:45 PM AIR CARGO AGENT Office Visit [address] [phone] Una Apodaca PsyD, LP Individual Therapy 02/24/2024 Travel 01/24/2024 2:00 PM AIR CARGO AGENT Office Visit [facility] [address] [place] [address] Larry Green DPM Follow Up (Right peroneal tendonitis ) 01/24/2024 Travel 01/02/2024 8:45 AM AIR CARGO AGENT Office Visit [facility] [address] [place] [address] Una Apodaca PsyD, LP Individual Therapy 01/02/2024 Travel 12/27/2023 8:00 AM AIR CARGO AGENT Office Visit [facility] [address] [place] [address] Una Apodaca PsyD, LP Individual Therapy 12/27/2023 Travel 12/26/2023 Telephone [facility] Orthoped[facility] - [facility] [place] [address] [facility] [address] [place] [address] Mike Van MD Appointment Request (Consult for Bilateral Hips) 12/20/2023 12:45 PM AIR CARGO AGENT Office Visit [facility] [address] [place] [address] Eliana Guerra MD Follow Up; [facility] F/U 12/20/2023 Travel 12/05/2023 9:30 AM CDT Office Visit [facility] [address] [place] [address] Una Apodaca, Bradley, LP Individual Therapy 12/05/2023 Office Visit [facility] [address] [place] [address] Una Apodaca PsyD, LP Trmt Plan 12/05/2023 Travel 12/03/2023 Home Care Visit Count Includes [facility] [address] [place] [address] Irais Laboy, RN EPISODE DISCHARGE from Last 3 Months Immunizations Name Administration Dates Next Due COVID-19 VACCINE SPIKEVAX (M ODERNA 50MCG/0.5ML) 12YO+ PFS 11/02/2023 COVID-19 vaccine (Moderna 100mcg/0.5mL) PF, MDV 08/15/2020,05/29/2020 COVID-19 vaccine (Pfizer-Bio NTech 30mcg/0.3mL) 12YO+ BIVALENT PF, MDV 04/16/2022 COVID-19 vaccine (Smarter Learn LimitedBio NTech 30mcg/0.3mL) PF, MDV 02/18/2021 DTaP 11/11/2004, [...] PHQ-2 Answer Date Recorded PHQ-2 TOTAL SCORE 3 03/01/2024 Social Connections Answer Date Recorded Do you often feel lonely or isolated from those around you? 0 04/21/2023 Financial Resource Strain Answer Date R ecorded Difficulty of Paying Living Expenses 3 04/21/2023 Difficulty of Paying Living Expenses Not on file 04/21/2023 Food Insecurity Answer Date Recorded Do you worry your food will run out before you are able to buy more? 1 04/21/2023 Transportation Needs Answer Date Record ed Does lack of transportation keep you from medica l appointments? 1 04/21/2023 Does lack of transportation keep you from work, meetings or getting things that you need? 1 04/21/2023 Housing Stability Answer Date Recorded What is your housing situation today? 1 04/21/2023 Utilities Answer Date Recorded Do you have trouble paying f or utilities (for example, heat, electricity, water, phone)? 1 04/21/2023 Sex and Gender Information Value Date Recorded Sex Assigned at Not on file Legal Sex Male 5:44 AM AIR CARGO AGENT Gender Identity Not on file Sexual Orientation Not on file Occupation Industry Job Start Date Job End Date Student Not on file Not on file Not on file Obstetrics History Last Filed Vital Signs Vital Sign Reading Time Taken Comments Blood Pressure 139/83 03/01/2024 2:24 PM AIR CARGO AGENT Pulse 128 03/01/2024 2:24 PM AIR CARGO AGENT Temperature 37.4 C (99.4 F) 11/25/2023 10:50 AM CDT Respiratory Rate 18 11/25/2023 10:50 AM CDT Oxygen Saturation 97% 03/01/2024 1:24 PM AIR CARGO AGENT Inhaled Oxygen Concentration - - Weight 64.1 kg (141 lb 6.4 oz) 03/01/2024 1:24 P M AIR CARGO AGENT Height 188.6 cm (6' 2.25) 11/02/2023 1:38 PM CD T Body Mass Index 18.03 11/02/2023 1:38 PM CDT Plan of Treatment Upcoming Encounters Date Type Department Care Team (Late st Contact Info) Description 03/07/2024 8:45 AM AIR CARGO AGENT Office Visit [facility] [address] [place] [address] Eliana Guerra MD [address] [place] [address] 03/09/2024 10:15 AM AIR CARGO AGENT Office Visit [address] [phone] Una Apodaca PsyD, LP [address] [place] [address] 03/09/2024 1:00 PM AIR CARGO AGENT Office Visit [facility] Orthopedic, Podiatry [facility] Spine [address] [place] [phone] Jose Pinto PA [address] [address] 03/21/2024 11:00 AM AIR CARGO AGENT Office Visit [address] [phone] Una Apodaca, PsyD, LP [address] [place] [address] 03/27/2024 8:45 AM AIR CARGO AGENT Office Visit [facility] [address] [place] [address] Eliana Guerra MD [address] [place] [address] 04/06/2024 8:45 AM AIR CARGO AGENT Office Visit [address] [phone] Una Apodaca, PsyD, LP [address] [place] [phone] 04/10/2024 9:30 AM AIR CARGO AGENT Office Visit [address] [phone] Una Apodaca, PsyD, LP [address] [place] [phone] 04/17/2024 1:30 PM CDT Office Visit [address] [phone] Una Apodaca, PsyD, LP [address] [place] [address] [place] [address] Health Maintenance Due Date Last Done Comments COVID-19 vaccine series (2023- season) 2023 11/02/2023, 04/16/2022, 02/18/2021, Additional history exists BMI (ht and wt on same day) for age 18+ 11/01/2024 11/02/2023, 01/20/2023, 11/19/2022, Additional history exists Depression screening for age 12+ 03/01/2025 03/01/2024, 02/29/2024, 02/24/2024, Additional history exists Tetanus booster 11/19/2032 11/19/2022, 09/22/2012 Pneumococcal series for age 6-49 Aged Out 04/21/2001, 01/12/2001, 2000 No longer eligible based on patient's age to complete this topic HIV for age 15-65 Completed 08/18/2020 Hepatitis C screening for age 18-79 Completed 08/18/2020 HPV series for age 9-26 Completed 10/29/19 21, 03/07/2020, 10/19/2019 Tdap Completed 11/19/2022, 09/22/2012 Influenza for age 9-49 Completed , 11/19/2022, 04/16/2022, Additional history exists Procedures Procedure Name Priority Date/Time Associated Diagnosis Comments URINALYSIS MACROSCOPIC - [facility] ONLY POC DIP (QUEST) Routine 03/01/2024 2:23 PM AIR CARGO AGENT Gross hematuria EXPOSURE (BBF) RAPID HIV Routine 08/18/2020 8:10 AM CDT Employee exposure to blood EXPOSURE (BBF) ANTI HCV Routine 08/18/2020 8:10 AM CDT Employee exposure to blood from Last 3 Months or Most Recently Relevant to Health Maintenance Results * (ABNORMAL) POCT Urinalysis Dipstick Only (03/01/2024 2:23 PM AIR CARGO AGENT) PH 5.5 5.0 - 8.0 [facility] SPECIFIC GRAVITY > OR = 1.030 1.001 - 1.035 [facility] Comment: Specific [place] values resulted are outside the analytical measurement range of this device. Recommend repeat/additional testing as clinically indicated. GLUCOSE NEGATIVE NEGATIVE [facility] BILIRUBIN 1+(A) NEGATIVE [facility] Comment: A false positive may be caused by the drug Lodine. For any presumptive positive bilirubin, consider confirmation by serum bilirubin if clinically indicated. KETONES 4+(A) NEGATIVE [facility] OCCULT BLOOD NEGATIVE NEGATIVE [facility] PROTEIN 1+(A) NEGATIVE [facility] NITRITE NEGATIVE NEGATIVE [facility] LEUKOCYTE ESTERASE NEGATIVE NEGATIVE [facility] Urine URINE SPECIMEN / Unknown 03/01/2024 2:23 PM AIR CARGO AGENT 03/01/2024 2:23 PM AIR CARGO AGENT us Eliana Guerra MD URINE Final Resul t [facility] [address] [place] [address], [facility] [address] [place] [address] * EXPOSURE (BBF) RAPID HIV (08/18/2020 8:10 AM CDT) SOURCE RAPID HIV SCREEN Non-Reacti ve Non-Reacti ve 08/18/2020 2:42 PM CDT [facility] Blood BLOOD SPECIMEN / Unknown Venipuncture / Unknown 08/18/2020 8:10 AM CDT 08/18/2020 8:11 AM CDT us Eliana Guerra MD SEND OUTS Final Resul t [facility] [address] [place] [address], [place] * EXPOSURE (BBF) ANTI HCV (08/18/2020 8:10 AM CDT) HEPATITIS C ANTIBODY Non-React alex Non-React alex 08/18/2020 2:57 PM CDT [facility] Comment:Antibodies to HCV no t detected; does not exclude the possibility of exposure to HCV. Blood BLOOD SPECIMEN / Unknown Venipuncture / Unknown 08/18/2020 8:10 AM CDT 08/18/2020 8:11 AM CDT us Eliana Guerra MD SEND OUTS Final Resul t [facility] [address] [place] [address], from Last 3 Months or Most Recently Relevant to Health Maintenance Insurance [employer] [place] [employer] [place] Care Teams Retail Business Manager Relationship Specialty Start Date End Date Eliana Guerra MD [address] [place] [address] PCP - General Family Practice 10/20/17
--- OUTSIDE RECORDS SUMMARY | 2024-03-01 22:12 | XMS_ITS | Encounter Summary ---
Author Organization [facility] Address [address] [place] [address] Care Team Providers Care Staffing Recruiter Name Role Phone Elsewhere, Pcp Primary Care Provider Unavailabl e Encounter Details Date Type Department Care Team (Late st Contact Info) Description 12/29/2023 Clinical Communication Department of Sports Medicine in [place], [place] [address] [place] [phone] Ahsan Talbert M.D., Ph.D. [address] [place] [phone] Social History Tobacco Use Types Packs/Day Years Used Date Smoking Tobacco: Never Smokeless Tobacco: Never Alcohol Use Standard Drinks/Week Comments Yes 1 (1 standard drink = 0.6 oz pur e alcohol) [facility] Utilities Answer Date Recorded In the past 12 months has e [employer], gas, oil, or water [email or web address] threatened to shut off services in your [...] often do you attend chur ch or jew services? More than 4 times per year [...] [facility] Occupational Stress Questionnaire Answer Date [...] PM CDT Legal Sex Male 1:45 PM SUPPLIER QUALITY Gender Identity Male 07/15/2019 8:59 AM CDT Sexual Orientation Straight 07/15/2019 8: 59 AM CDT documented as of this encounter Plan of Treatment Not on file documented as of this encounter Visit Diagnoses Not on filedocumented in this encounter Additional Health Concerns Assessment Noted Time PHQ-9 Depression Total Score: 5 07/07/19 24 9:17 PM CDT documented as of this encounter Care Teams Staffing Recruiter Relationship Specialty Start Date End Date Elsewhere, Pcp PCP - General Internal Medicine 05/22/18 documented as of this encounter
--- OUTSIDE RECORDS SUMMARY | 2024-03-01 22:12 | XMS_ITS | Encounter Summary ---
Author Organization [facility] Address [address] [place] [address]. [place] [address] Care Team Providers Care Inside Sales Advisor Name Role Phone Unavailable Primary Care Provider Unavailabl e Reason for Referral * Diagnostic Imaging XR (Routine) - Pending Review Specialty Diagnoses / Procedures Referred By Ye t Referred To Contact Radiology. Diagnoses Right hip pain Procedures XR Pelvis and Hip Right 1 View Kei [place] MD [address] [place] [phone] Phone: tel: fax: Referral ID Status Reason Start Date Expiration Date V isits Requested Visits Authorized [id number] Pending Review 01/30/2024 01/29/2025 1 1 CH EDGE OPERATOR Encounter Details Date Type Department Care Team (Late st Contact Info) Description 01/30/2024 [facility] Only [facility] [address] 4[address] [place] [phone] Kei [place] MD [address] [place] [phone] Right hip pain (Primary Dx) Social History Tobacco Use Types Packs/Day Years Used Date Smoking Tobacco: Never Assessed Sex and Gender Information Value Date Recorded Sex Assigned at Not on file Legal Sex Male 9:18 AM FRENCH EDGE OPERATOR Gender Identity Not on file Sexual Orientation Not on file documented as of this encounter Plan of Treatment Scheduled Procedures Name Priority Associated Diagnoses Date/Ti me SURGICAL EXTRACTION, TOOTH Chronic pericoronitis documented as of this encounter Results * XR Pelvis and Hip Right 1 View (02/09/2024 8:29 AM FRENCH EDGE OPERATOR) Anatomical Region Laterality Modality Abdomen/Pelvis Right Computed Radiogr aphy Impressions 02/09/2024 5:13 PM FRENCH EDGE OPERATOR Impression: 1 No acute osseous abnormality. 2. Bilaterally anterior acetabular overcoverage. I have personally reviewed the examination and initial interpretation and I agree with the findings. ELLI BLUE MD Narrative 02/09/2024 5:13 PM FRENCH EDGE OPERATOR 2 views pelvis radiograph(s) 02/09/2024 8:29 AM History: Right hip pain Additional History from EMR: History of Kamari-Danlos syndrome. Prior arthroscopy for labral tear repair and femoral neck osteoplasty at [facility] 2020. Comparison: Right hip MRI arthrogram 10/31/2023. Pelvis CT screen shots 10/30/2022. Hip/pelvis x-rays 12/14/2022, 02/25/2022, 05/26/2020. Findings: AP and frog-leg view(s) of the pelvis were obtained. No acute osseous abnormality. Postoperative changes of right hip labrum repair. Predominant bilateral pincer deformities of the hip joints. No substantial degenerative change of hips. Sacrum and innominate bones are partially obscured by overlying bowel gas/fecal content. Procedure Note Elli Blue MD - 02/09/2024 2 views pelvis radiograph(s) 02/09/2024 8:29 AM History: Right hip pain Additional History from EMR: History of Kamari-Danlos syndrome. Prior arthroscopy for labral tear repair and femoral neck osteoplasty at [facility] 2020. Comparison: Right hip MRI arthrogram 10/31/2023. Pelvis CT screen shots 10/30/2022. Hip/pelvis x-rays 12/14/2022, 02/25/2022, 05/26/2020. Findings: AP and frog-leg view(s) of the pelvis were obtained. No acute osseous abnormality. Postoperative changes of right hip labrum repair. Predominant bilateral pincer deformities of the hip joints. No substantial degenerative change of hips. Sacrum and innominate bones are partially obscured by overlying bowel gas/fecal content. Impression: 1 No acute osseous abnormality. 2. Bilaterally anterior acetabular overcoverage. I have personally reviewed the examination and initial interpretation and I agree with the findings. ELLI BLUE MD us Kei [place] MD IMG DIAGNOSTIC IMAGING ORDER CAROL Final Result documented in this encounter Visit Diagnoses Diagnosis Right hip pain- Primary Pain in joint, pelvic region and thigh Right hip pain Pain in joint, pelvic region and thigh documented in this encounter
--- OUTSIDE RECORDS SUMMARY | 2024-03-01 22:12 | XMS_ITS | Referral Summary ---
Author Organization [facility] Address [address] [place] [address]. [place] [address] Care Team Providers Care Quartz Mounter Name Role Phone No Ref-Primary, Physician Primary Care Provider Encounters Date Type Department Care Team Description 02/09/2024 Travel 02/09/2024 8:45 AM MECHANICAL PROJECT MANAGER Ancillary Procedure [facility] Orthopedic Xray [address] [phone] Kei [place] MD Right hip pain 02/09/2024 9:00 AM MECHANICAL PROJECT MANAGER Office Visit [facility] [address] [phone] Kei [place] MD Right hip pain (Primary Dx); Sacroiliac joint dysfunction of right side 01/30/2024 Orders Only [facility] [address] [phone] Kei [place] MD Right hip pain (Primary Dx) 01/19/2024 PRE VISIT [facility] [address] [phone] Kei [place] MD Previsit (/) 01/19/2024 PRE VISIT [facility] [address] [phone] Kei [place] MD Previsit 01/09/2024 Orders Only [facility] Services - Surgical Specialties Service Line [address] [place] [phone] Gene Torres, MEKHI Chronic pericoronitis (Primary Dx) from Last 3 Months Allergies No known active allergies Social History Tobacco Use Types Packs/Day Years Used Date Smoking Tobacco: Never Assessed PHQ-2 Answer Date Recorded PHQ-2 Score 0 02/09/2024 Sex and Gender Information Value Date Recorded Sex Assigned at Not on file Legal Sex Male 9:18 AM MECHANICAL PROJECT MANAGER Gender Identity Not on file Sexual Orientation Not on file Last Filed Vital Signs Vital Sign Reading Time Taken Comments Blood Pressure - - Pulse - - Temperature - - Respiratory Rate - - Oxygen Saturation - - Inhaled Oxygen Concentration - - Weight 70.6 kg (155 lb 11.2 oz) 02/09/2024 8:58 AM MECHANICAL PROJECT MANAGER Height 188 cm (6' 2) 02/09/2024 8:58 AM MECHANICAL PROJECT MANAGER Body Mass Index 19.99 02/09/2024 8:58 AM MECHANICAL PROJECT MANAGER Plan of Treatment Scheduled Procedures Name Priority Associated Diagnoses Date/Ti me SURGICAL EXTRACTION, TOOTH Chronic pericoronitis Procedures Procedure Name Priority Date/Time Associated Diagnosis Comments XR PELVIS AND HIP RIGHT 1 VIEW Routine 02/09/2024 8:29 AM MECHANICAL PROJECT MANAGER Right hip pain from Last 3 Months Results * XR Pelvis and Hip Right 1 View (02/09/2024 8:29 AM MECHANICAL PROJECT MANAGER) Anatomical Region Laterality Modality Abdomen/Pelvis Right Computed Radiogr aphy Impressions 02/09/2024 5:13 PM MECHANICAL PROJECT MANAGER Impression: 1 No acute osseous abnormality. 2. Bilaterally anterior acetabular overcoverage. I have personally reviewed the examination and initial interpretation and I agree with the findings. ELLI BLUE MD Narrative 02/09/2024 5:13 PM MECHANICAL PROJECT MANAGER 2 views pelvis radiograph(s) 02/09/2024 8:29 AM History: Right hip pain Additional History from EMR: History of Kamari-Danlos syndrome. Prior arthroscopy for labral tear repair and femoral neck osteoplasty at [facility] 2020. Comparison: Right hip MRI arthrogram 10/31/2023. [...] tear repair and femoral neck osteoplasty at [facility] 2020. Comparison: Right hip MRI arthrogram 10/31/2023. [...] agree with the findings. ELLI BLUE MD Kei [place] MD [facility] [place] [facility]IC IMAGING ORDER CAROL Final Result from Last 3 Months Insurance [employer] ADVANTAGE ME BLUE PLUS ADVANTAGE ME Care Teams Quartz Mounter Relationship Specialty Start Date End Date No Ref-Primary, Physician PCP - General 02/09/24
--- OUTSIDE RECORDS SUMMARY | 2024-03-01 22:12 | XMS_ITS | Clinical Summary ---
Author Organization [facility] Address [address] [place] [address]. [place] [address] Care Team Providers Care Foundry Metallurgist Name Role Phone No Ref-Primary, Physician Primary Care Provider Allergies No known active allergies Encounters Date Type Department Care Team Description 02/09/2024 9:00 AM ENTRY LEVEL ACCOUNT EXECUTIVE Office Visit [facility] [address] [phone] Kei Eugene MD Right hip pain (Primary Dx); Sacroiliac joint dysfunction of right side 02/09/2024 8:45 AM ENTRY LEVEL ACCOUNT EXECUTIVE Ancillary Procedure [facility] Xray [address] [phone] Kei Eugene MD Right hip pain 02/09/2024 Travel 01/30/2024 Orders Only [facility] [address] [phone] Kei Eugene MD Right hip pain (Primary Dx) 01/19/2024 PRE VISIT [facility] [address] [phone] Kei Eugene MD Previsit (/) 01/19/2024 PRE VISIT [facility] [address] [phone] Kei Eugene MD Previsit 01/09/2024 Orders Only [facility] Services - Surgical Specialties Service Line [address] [place] [phone] Gene Torres, MEKHI Chronic pericoronitis (Primary Dx) from Last 3 Months Social History Tobacco Use Types Packs/Day Years Used Date Smoking Tobacco: Never Assessed PHQ-2 Answer Date Recorded PHQ-2 Score 0 02/09/2024 Sex and Gender Information Value Date Recorded Sex Assigned at Not on file Legal Sex Male 9:18 AM ENTRY LEVEL ACCOUNT EXECUTIVE Gender Identity Not on file Sexual Orientation Not on file Last Filed Vital Signs Vital Sign Reading Time Taken Comments Blood Pressure - - Pulse - - Temperature - - Respiratory Rate - - Oxygen Saturation - - Inhaled Oxygen Concentration - - Weight 70.6 kg (155 lb 11.2 oz) 02/09/2024 8:58 AM ENTRY LEVEL ACCOUNT EXECUTIVE Height 188 cm (6' 2) 02/09/2024 8:58 AM ENTRY LEVEL ACCOUNT EXECUTIVE Body Mass Index 19.99 02/09/2024 8:58 AM ENTRY LEVEL ACCOUNT EXECUTIVE Plan of Treatment Scheduled Procedures Name Priority Associated Diagnoses Date/Ti me SURGICAL EXTRACTION, TOOTH Chronic pericoronitis Health Maintenance Due Date Last Done Comments ADVANCE CARE PLANNING 2000 ANNUAL REVIEW OF HM ORDERS 2000 HIV SCREENING 05/10/2015 MENINGITIS B IMMUNIZATION (1 of 2 - Standard) 2016 YEARLY PREVENTIVE VISIT 11/20/2023 11/20/19 23, 03/13/2021, 03/07/2020 DTAP/TDAP/TD IMMUNIZATION (7 - Td or Tdap) 11/19/2032 11/19/2022, 09/22/2012, 11/11/2004, Additional history exists ZOSTER IMMUNIZATION (1 of 2) 2050 RSV VACCINE (1 - 1-dose 75+ series) 05/10/2075 Pneumococcal Vaccine: Pediatrics (0 to 5 Years) and At-Risk Patients (6 to 49 Years) Aged Out 04/21/2001, 01/12/2001, 2000 No longer eligible based on patient's age to complete this topic HEPATITIS B IMMUNIZATION Completed 002, 01/12/2001, 2000 MENINGITIS IMMUNIZATION Completed 02/23/19 18, 02/23/2017, 09/02/2015 HEPATITIS C SCREENING Completed 08/18/2020 HPV IMMUNIZATION Completed 10/28/2020, , 10/19/2019 COVID-19 Vaccine Completed 11/02/2023, 11/2022, 02/18/2021, Additional history exists INFLUENZA VACCINE Completed 11/02/2023, , 04/16/2022, Additional history exists PHQ-2 (once per calendar year) Completed 02/09/2024 RSV MONOCLONAL ANTIBODY Aged Out No l onger eligible based on patient's age to complete this topic Procedures Procedure Name Priority Date/Time Associated Diagnosis Comments XR PELVIS AND HIP RIGHT 1 VIEW Routine 02/09/2024 8:29 AM ENTRY LEVEL ACCOUNT EXECUTIVE Right hip pain from Last 3 Months Results * XR Pelvis and Hip Right 1 View (02/09/2024 8:29 AM ENTRY LEVEL ACCOUNT EXECUTIVE) Anatomical Region Laterality Modality Abdomen/Pelvis Right Computed Radiogr aphy Impressions 02/09/2024 5:13 PM ENTRY LEVEL ACCOUNT EXECUTIVE Impression: 1 No acute osseous abnormality. 2. Bilaterally anterior acetabular overcoverage. I have personally reviewed the examination and initial interpretation and I agree with the findings. ELLI BLUE MD Narrative 02/09/2024 5:13 PM ENTRY LEVEL ACCOUNT EXECUTIVE 2 views pelvis radiograph(s) 02/09/2024 8:29 AM History: Right hip pain Additional History from EMR: History of Kamari-Danlos syndrome. Prior arthroscopy for labral tear repair and femoral neck osteoplasty at [facility] 2020. Comparison: Right hip MRI arthrogram [...] tear repair and femoral neck osteoplasty at [facility] 2020. Comparison: Right hip MRI arthrogram [...] findings. ELLI BLUE MD Kei Eugene MD IMG DIAGNOSTIC IMAGING ORDER CAROL Final Result from Last 3 Months Insurance [employer] [place] [employer] [place] Care Teams Foundry Metallurgist Relationship Specialty Start Date End Date No Ref-Primary, Physician PCP - General 02/09/24
--- OUTSIDE RECORDS SUMMARY | 2024-03-01 22:12 | XMS_ITS | Encounter Summary ---
Author Organization [facility] Address [address] [place] [address] Care Team Providers Care Computing Architect Name Role Phone Elsewhere, Pcp Primary Care Provider Unavailabl e Reason for Visit * Outpatient (Routine) - Closed Specialty Diagnoses / Procedures Referred By Ye lund Referred To Contact Sports Medicine Candida Lucero P.A.-C. [address] [place] [phone] Phone: tel: fax: Ahsan Talbert M.D., Ph.D. [address] [place] [phone] Phone: tel: fax: Referral ID Status Reason Start Date Expiration Date Visits Re quested Visits Authorized [id number] Closed 12/29/2023 06/29/2025 1 1 Encounter Details Date Type Department Care Team (Late st Contact Info) Description 02/22/2024 8:15 AM UNIT NURSE Telemedicine Department of Sports Medicine in [place], [place] [address] [place] [phone] Ahsan Talbert M.D., Ph.D. [address] [place] [phone] Pain Hip Right (Primary Dx) Social History Tobacco Use Types Packs/Day Years Used Date Smoking Tobacco: Never Smokeless Tobacco: Never Alcohol Use Standard Drinks/Week Comments Yes 1 (1 standard drink = 0.6 oz pur e alcohol) [facility] Utilities Answer Date Recorded In [...] often do you attend chur ch or sikh services? More than 4 times per year [...] Answer Date Recorded PHQ-2 Score 0 07/07/2023 [facility] - Occupational Stress Questionnaire Answer [...] PM CDT Legal Sex Male 1:45 PM UNIT NURSE Gender Identity Male 07/15/2019 8:59 AM CDT Sexual Orientation Straight 07/15/2019 8: 59 AM CDT documented as of this encounter Progress Notes * Ahsan Talbert M.D., Ph.D. - 02/22/2024 8:15 AM CST Images from the original note were not included. SUBJECTIVE CHIEF COMPLAINT/REASON FOR VISIT Return Visit HISTORY OF PRESENT ILLNESS Paramjit Boyce is a 23 y.o. 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 He states his left hip pain has improved after his spica but he continues with pain in both hips. Left hip specific pain that was relieved was the aching sensation always present, like a toothache that would alternate as burning pain and he now can play pickelball and softball for 2 hrs without anyof that pain in left hip. Both hips continues to have pain with sitting or standing for a prolongedperiod of time. Pain is anterior, progresses laterally, pain is sharp, intermittent but worsens with prolonged activity. Rates discomfort as high as 9/10. 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 He does not take any medications for pain as feels it hides the pain. Hot baths seem to help. Is able to sleep at night as lying flat does not cause pain. He has not had any injections since his [facility] helped the left hip but made the right one worse. PATIENT REPORTED HIP SCORES: PRO Scores: 09/14/2023 9:01 AM 10/24/2023 12:56 PM 11/06/2023 4:52 PM PROMIS CAT - ORTHO PROMIS CAT: Physical function 38 (moderate dysfunction) 41 (mild dysfunction) PROMIS CAT: Pain interference 65 (moderate) Global Pain Score 69 REVIEW OF SYSTEMS Patient denies constitutional symptoms, including fever,chills, general malaise. OBJECTIVE PHYSICAL EXAMINATION General: The patient is cooperative, pleasant, no acute distress. Musculoskeletal: Limited given telemedicine visit. ASSESSMENT / PLAN #1 Left hip pain with likely MARLENI #2 Status post right hip arthroscopy with Dr. Haines on 02/13/2020 #3 Right hip pain We discussed his bilateral hips. He feels that some of his pain is improved after his period of immobilization. He continues to have substantial posterior pain. He has discussed proceeding with an anteverting GUILLERMO with a provider at [facility]. 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 We did have a alison discussion that I do not think an isolated hip arthroscopy would be indicated or provide predictable relief. He is in understanding and agreement. We will follow up with him on an as-needed basis. PATIENT EDUCATION Ready to learn, no apparent learning barriers were identified; learning preferences include listening. Explained diagnosis and treatment plan; patient expressed understanding of the content. NURSE documented in this encounter Plan of Treatment Not on file documented as of this encounter Visit Diagnoses Diagnosis Pain Hip Right- Primary documented in this encounter Additional Health Concerns Assessment Noted Time PHQ-9 Depression Total Score: 5 07/07/19 24 9:17 PM CDT documented as of this encounter Care Teams Computing Architect Relationship Specialty Start Date End Date Elsewhere, Pcp PCP - General Internal Medicine 05/22/18 documented as of this encounter
--- OUTSIDE RECORDS SUMMARY | 2024-03-01 22:12 | XMS_ITS | Encounter Summary ---
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 200 [place] [phone] Phone: tel: fax: [facility] Referral ID Status Reason Start Date Expiration Date V isits Requested Visits Authorized [id number] Authorized 02/16/2024 02/15/2025 1 1 ICE PLUMBER * Physical Therapy (Routine) - Authorized Specialty Diagnoses / Procedures Referred By Contac t Referred To Contact Physical Therapy Diagnoses Kamari Danlos Syndrome Unspecified (HCC) Jak Drummond M.D. 200 [place] [phone] Phone: tel: fax: Referral ID Status Reason Start Date Expiration Date Visits Requested Visits Authorized [id number] Authorized Patient Preference 02/16/2024 08/17/2025 1 1 ICE PLUMBER Reason for Visit * Outpatient (Routine) - Closed Specialty Diagnoses / Procedures Referred By Contact Referred To Contact Physical Medicine and Rehabilitation Jak Drummond M.D. 200 [place] [phone] Phone: tel: fax: Jak Drummond M.D. [address] [place] [phone] Phone: tel: fax: Referral ID Status Reason Start Date Expiration Date Visits Re quested Visits Authorized [id number] Closed 12/12/2023 06/12/2025 1 1 Encounter Details Date Type Department Care Team (Latest Contact Info) Description 02/16/2024 8:00 AM SERVICE PLUMBER Office Visit Department of Physical Medicine and Rehabilitation in [place], [place] [address] [place] [phone] Jak Drummond M.D. [address] [place] [phone] Hypermobility Joint (Primary Dx); Kamari Danlos Syndrome Unspecified (HCC) Social History Tobacco Use Types Packs/Day Years Used Date Smoking Tobacco: Never Smokeless Tobacco: Never Alcohol Use Standard Drinks/Week Comments Yes 1 (1 standard drink = 0.6 oz pur e alcohol) [facility] Utilities Answer Date Recorded In the past 12 months has [facility] [employer], gas, oil, or water [employer] threatened to shut off services in your [...] often do you attend chur ch or anabaptist services? More than 4 times per year [...] Score 0 07/07/2023 [facility] Questionnaire Answer [...] situation today? I have a [facility] place to live 05/22/2023 Education Answer Date Recorded What is the highest level of school you have completed or the highest degree you have received? Some college, no degree 05/24/2020 Sex and Gender Information Value Date Recorded Sex Assigned at Male 10/29/2020 12:38 PM CDT Legal Sex Male 1:45 PM SERVICE PLUMBER Gender Identity Male 07/15/2019 8:59 AM CDT Sexual Orientation Straight 07/15/2019 8: 59 AM CDT documented as of this encounter Progress Notes * Jak Drummond M.D. - 02/16/2024 8:00 AM CST REFERRAL SOURCE: Jak Drummond M.D. CHIEF COMPLAINT: Multifocal musculoskeletal pain HISTORY OF PRESENT ILLNESS Mr. Boyce is a pleasant 23 y.o. male who returns today reporting ongoing multi-joint pain, the worst is his hips (s/p labral repair by Dr. Haines in the past without GUILLERMO, now planning GUILLERMO at [facility] the near future, on I believe the left side first, and following that the right side), his ankles (peroneal tendon subluxation, with plan for surgery on the same side as the hip, about 2 weeks later, to minimize the total non-weight bearing time for the two procedures), wrists, shoulders (severewrist pain after recent hip spica cast application, as well as UTI requiring hospitalization where a wheelchair was very helpful for mobilization when in severe pain), and chronic daily neck and thoracolumbar spine pain (neck pain particularly bad with turning the head to change lanes while driving, and with associated painful cracking). He uses bracing with good effect, and reports that his TLSO and his [place] J collar are worn out andhe needs new braces. He also has a clamshell CTLSO which is very helpful at times but can't use that when out and about or driving. 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 He still lives withhis mom, but when she travels (which is fairly often), he is sometimes incapacitated by pain and can't mobilize much at all, ending up on bedrest a lot. OBJECTIVE PHYSICAL EXAMINATION GENERAL: Awake, alert, and oriented, answered questions appropriately, no apparent distress, pleasant and cooperative. He has a Marfanoid appearance, very lanky, with long arms and legs, low BMI. PSYCH: Mood is euthymic, affect is congruent. Speech is normal. EAR, NOSE, THROAT: Normocephalic, anicteric sclera. LUNG: Non labored breathing. HEART: No pitting edema noted. MUSCULOSKELETAL: Gait is normal. He is hypermobile, with increased ROM of the hips (pain with internal rotation in particular), positive thumb to forearm on the right (left wrist had surgery to limitextension, hypermobile lumbar spine). Spine examination is notable for pain with end range of extension (both cervical and lumbar - pain in the neck is in the upper cervical spine with extension and with facet loading bilaterally). Joint examination is notable for hypermobility and subluxation at end range in the shoulders and hips. NEURO: Strength is normal throughout both all major muscle groups of both upper and lower limbs. ASSESSMENT / PLAN #1 Hypermobility, unspecified Kamari Danlos syndrome #2 Widespread musculoskeletal pain #3 Bilateral hip impingement and labral tears, GUILLERMO surgery planned at [facility] #4 Recurrent peroneal tendon subluxation, surgery planned elsewhere #5 Status post wrist surgery for hypermobility and chronic tendinopathy #6 Status post pectus excavatum surgery #7 Comorbid conditions including possible POTS, gastroparesis Plan: Mr. Boyce has a significant connective tissue disorder, with widespread hypermobility and associated joint instability and pain. He has benefited from judicious use of bracing over the years and ishighly compliant with physical therapy and home exercise program. He has upcoming surgeries planned, which will require extensive periods of non-weight bearing over the next year, and would be best served by a lightweight custom wheelchair that he can propel himself without injuring his wrists or shoulders further, in order to remain mobile and independent, in and outside of his home. I will refer him to our wheelchair seating clinic to initiate fitting and paperwork for insurance approval withthe hope that we can get him appropriately equipped prior to his first hip surgery. Today's visit was face to face. I have also given him a script for a new cervical orthosis (Lincoln collar) and a new TLSO as his current ones are several years old and the padding has worn out, and they no longer fit appropriately. These need to be custom fit due to his unusual body habitus, and need to extra padding. Lastly I have given him a script for physical therapy incorporating direct current electrical stimulation and possibly frequency specific microcurrent which have been very helpful for patients with EDS and similar phenotypes to his. All questions were answered to the best of my ability; this included my opinion regarding which type of surgery he should have for recurrent peroneal tendon subluxation (groove deepening, with or without tendon stabilization) and heel cord lengthening surgery with potential impact on his pes planusand chronic foot pain. No apparent learning barriers were identified. BILLING: Total time (face to face and coordination of care): 60 minutes ICE PLUMBER documented in this encounter Plan of Treatment Not on file documented as of this encounter Visit Diagnoses Diagnosis Hypermobility Joint- Primary Kamari Danlos Syndrome Unspecified (HCC) documented in this encounter Additional Health Concerns Assessment Noted Time PHQ-9 Depression Total Score: 5 07/07/19 24 9:17 PM CDT documented as of this encounter Care Teams Carpet Mechanic Relationship Specialty Start Date End Date Elsewhere, Pcp PCP - General Internal Medicine 05/22/18 documented as of this encounter
--- OUTSIDE RECORDS SUMMARY | 2024-03-01 22:12 | XMS_ITS | Referral Summary ---
Author Organization [facility] Address [address] [place] [address] Care Team Providers Care Filing Or Registry Clerk Name Role Phone Elsewhere, Pcp Primary Care Provider Unavailabl e Source Comments Patient records contain information from all sites at [facility]. For routine questions regarding patient records, call [phone] during business hours, M-F 8:00 AM - 5:00 PM Central Time. Record requests for emergency care only can be directed to [phone] at any time.[facility] Encounters * This document contains information received from the source organization and may not represent a complete record from that organization. Date Type Department Care Team Description 03/01/2024 Orders Only Department of Urology in [place], [place] [address] [place] [phone] Kate Egan P.A.-C. Retention Urinary (Primary Dx) 02/22/2024 8:15 AM [employer] Telemedicine Department of Sports Medicine in [place], [place] [address] [place] [address] Ahsan Talbert M.D., Ph.D. Pain Hip Right (Primary Dx) 02/16/2024 8:00 AM [employer] OF [employer] Office Visit Department of Physical Medicine and Rehabilitation in [place], [place] [address] [place] [address] Jak Drummond M.D. Hypermobility Joint (Primary Dx); Kamari Danlos Syndrome Unspecified (HCC) 01/30/2024 3:30 PM [employer] OF [employer] Telemedicine Department of Urology in [place], [place] [address] [place] [address] Kate Egan P.A.-C. Retention Urinary (Primary Dx) 01/04/2024 1:15 PM LIST OF [employer] Clinical Communication Virtual Review in [place], [place] [address] [place] [address] 12/29/2023 Orders Only Department of Orthopedic Surgery in [place] [address] Candida Lucero P.A.-C. 12/29/2023 Clinical Communication Department of Sports Medicine in [place] [address] Ahsan Talbert M.D., Ph.D. 12/05/2023 Clinical Communication Department of Physical Medicine and Rehabilitation in [place] [address] Jak Drummond M.D. Appt Request (1 yr follow up on joint issues with Dr Drummond) 12/05/2023 Clinical Communication Department of Orthopedic Surgery in [place] [address] Jasper Jimenez III, M.D. Appt Request 12/05/2023 7:52 AM CDT - 12/05/2023 2:07 PM CDT Hospital Encounter Department of Orthopedic Surgery in [place] [address] Ahsan Talbert M.D., Ph.D. Hypermobility Joint Discharge Disposition: Home or Self Care from Last 3 Months Allergies No known [...] NEEDED. 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 More than 4 times per year 2022 Do you belong to any clubs o r organizations such as mormon groups, unions, fraternal or athletic groups, or [...] Answer Date Recorded PHQ-2 Score 0 07/07/2023 [facility] - Occupational Stress Questionnaire Answer Date [...] your living situation today? [facility] have a [facility] place to live 05/22/2023 Education Answer Date Recorded What is the highest level of school you have completed or the highest degree you have received? Some college, no degree 05/24/2020 Sex and Gender Information Value Date Recorded Sex Assigned at Male 10/29/2020 12:38 PM CDT Legal Sex Male 1:45 PM LIST [employer] Gender Identity Male 07/15/2019 8:59 AM CDT Sexual Orientation Straight 07/15/2019 8: 59 AM CDT Last Filed Vital Signs Vital Sign Reading Time Taken Comments Blood Pressure 126/84 05/23/2023 8:08 AM CDT Pulse 91 05/23/2023 8:08 AM CDT Temperature 37.3 C (99.1 F) 01/20/2022 10:47 AM [employer] Respiratory Rate 30 02/11/2021 10:10 AM [employer] Oxygen Saturation 99% 02/11/2021 10:15 AM [employer] Inhaled Oxygen Concentration - - Weight 65.8 kg (145 lb) 07/08/2023 9:50 AM CDT Height 185.4 cm (6' 1) 07/08/2023 9:50 AM CDT Body Mass Index 19.13 07/08/2023 9:50 AM CDT Plan of Treatment Not on file Medical Devices Implanted Type Area Email Campaign Specialist Device Identifier Shelf Expiration Date Model / Serial / Lot Hardware E.G. Pins/Screws/R ods Hardware e.g. pins/screws/ rods Chest Wall [address] Pk Hip Mini 2.4x8.9 - [id number] Implanted:Qty : 1 on 02/13/2020 by Zoltan Haines M.D. at [facility] Hardware e.g. pins/screws/ rods Right: Hip Ar[employer]rex [id number] 11/06/2024 AR-2924PH S / / [id number] [address] Pk Hip Mini 2.4x8.9 - [id number] Implanted:Qty : 2 on 02/13/2020 by Zoltan Haines M.D. at [facility] Hardware e.g. pins/screws/ rods Right: Hip Arthrex [id number] 10/07/2024 AR-2924PH S / / [id number] [address] Pk Hip Mini 2.4x8.9 - [id number] Implanted:Qty : 1 on 02/13/2020 by Zoltan Haines M.D. at [facility] Hardware e.g. pins/screws/ rods Right: Hip Arthrex [id number] 07/07/2024 AR-2924PH S / / [id number] Kt Fix Intbrc Hnd Wrst - [id number] Implanted:Qty : 1 on 02/02/2021 by Jose Crawford M.D. at [facility] Hardware e.g. pins/screws/ rods Left: Wrist Arthrex [id number] 09/06/2025 AR-8978-[id number] P / / [id number] Insurance [place] [address] Care Teams Filing Or Registry Clerk Relationship Specialty Start Date End Date Elsewhere, Pcp PCP - General Internal Medicine 05/22/18
--- OUTSIDE RECORDS SUMMARY | 2024-03-01 22:12 | XMS_ITS | Encounter Summary ---
Author Organization [facility] Address [address] [place] [address]. [place] [address] Care Team Providers Care Gm Video Name Role Phone System, Provider Not In Primary Care Provider Un available No Ref-Primary, Physician Primary Care Provider Reason for Visit * Reason Onset Date Comments Previsit 01/19/2024 Encounter Details Date Type Department Care Team (Late st Contact Info) Description 01/19/2024 PRE VISIT [facility] [address] [place] [phone] Kei Eugene MD [address] [place] [phone] Previsit (/) Social History Tobacco Use Types Packs/Day Years Used Date Smoking Tobacco: Never Assessed PHQ-2 Answer Date Recorded PHQ-2 Score 0 02/09/2024 Sex and Gender Information Value Date Recorded Sex Assigned at Not on file Legal Sex Male 9:18 AM SUPERVISOR PARKING LOT Gender Identity Not on file Sexual Orientation Not on file documented as of this encounter Miscellaneous Notes * Telephone Encounter - Eliana Alcaraz - 01/19/2024 8:22 AM CST Action February 09, 2024 9:40 AM ABT Action Taken Received secure chat from [facility] Singer. [facility] chart attached - Called [facility] and spoke to Shana in imaging and verbally requested images. Shana confirms images will be pushed to PACS 10:13 AM Images from [facility] received and resolved to PACS Action January 19, 2024 8:57 AM MT Action Taken Called our internal team to resolve the imaging to resolve the images, as it was not allowing me to do so. Called [facility] for imaging to be pushed STAT, no answer, sent an urgent fax. Sent a request to [facility] for imaging. DIAGNOSIS: Second Opinion Hip and tears issues was seen at [facility]. APPOINTMENT DATE: 01/19/2024 NOTES STATUS DETAILS OFFICE NOTE from referring provider SELF OFFICE NOTE from other specialist Care Everywhere: [employer] Tab: [facility] OPERATIVE REPORT Care Everywhere 02/13/2020 - PROCEDURE(S) 1. Right hip arthroscopy. 2. Pincer resection. 3. Labral repair with 4 PushLock anchors. 4. Femoral neck osteochondroplasty. 5. Capsulorrhaphy. 6. Fractional lengthening of the psoas tendon. 7. Acetabular chondroplasty. DEXA Care Everywhere [facility]: 06/15/2018 - HIPS MRI In process [facility]: 10/31/2023 - RT Hip Arthrogram [facility]: 04/21/2023, 10/25/2019 - RT Hip Arthrogram 03/28/2020 - LT Hip Arthrogram CT SCAN Internal [facility]: 10/31/2023, 12/06/2019 - RT Hip XRAYS (IMAGES & REPORTS) In process [facility]: 12/14/2022, 02/25/2022, 05/26/2020 - Hip/Pelvis [facility]: 12/26/23: Pelvis 10/20/23: Hip RT RVISOR PARKING [employer] documented in this encounter Plan of Treatment Scheduled Procedures Name Priority Associated Diagnoses Date/Ti me SURGICAL EXTRACTION, TOOTH Chronic pericoronitis documented as of this encounter Visit Diagnoses Not on filedocumented in this encounter Care Teams Gm Video Relationship Specialty Start Date End Date System, Provider Not In PCP - General Clinic 01/24/24 01/24/24 No Ref-Primary, Physician PCP - General 02/09/24 documented as of this encounter
--- OUTSIDE RECORDS SUMMARY | 2024-03-01 22:12 | XMS_ITS | Encounter Summary ---
Author Organization [facility] Address [address] [place] [address] Care Team Providers Care Lean Manufacturing Specialist Name Role Phone Elsewhere, Pcp Primary Care Provider Unavailabl e Reason for Referral * Outpatient (Routine) - Authorized Specialty Diagnoses / Procedures Referred By Ye lund Referred To Contact Diagnoses Retention Urinary Procedures URO Cystoscopy (general) Kate Egan P.A.-CMackenzie [address] [place] [phone] Phone: tel: fax: [facility] Referral ID Status Reason Start Date Expiration Date V isits Requested Visits Authorized [id number] Authorized 03/01/2024 06/01/2025 1 1 O PERSONALITY Encounter Details Date Type Department Care Team (Late st Contact Info) Description 03/01/2024 Orders Only Department of Urology in [place], [place] [address] [place] [phone] Kate Egan P.A.-C. [address] [place] [phone] Retention Urinary (Primary Dx) Social History Tobacco Use Types Packs/Day Years Used Date Smoking Tobacco: Never Smokeless Tobacco: Never Alcohol Use Standard Drinks/Week Comments Yes 1 (1 standard drink = 0.6 oz pur e alcohol) [facility] Utilities Answer Date Recorded In the [...] week 2022 How often do you attend [facility] or anabaptist services? More than 4 times [...] Answer Date Recorded PHQ-2 Score 0 07/07/2023 [facility] - Occupational Stress [...] living situation today? I have a [facility] place to live 05/22/2023 Education Answer Date Recorded What is the highest level of school you have completed or the highest degree you have received? Some college, no degree 05/24/2020 Sex and Gender Information Value Date Recorded Sex Assigned at Male 10/29/2020 12:38 PM CDT Legal Sex Male 1:45 PM RADIO PERSONALITY Gender Identity Male 07/15/2019 8:59 AM CDT [...] documented as of this encounter Care Teams Lean Manufacturing Specialist Relationship Specialty Start Date End Date Elsewhere, Pcp PCP - General Internal Medicine 05/22/18 documented as of this encounter
--- OUTSIDE RECORDS SUMMARY | 2024-03-01 22:12 | XMS_ITS | Encounter Summary ---
Author Organization [facility] Address [address] [place] [address]. [place] [address] Care Team Providers Care Hand Tier Name Role Phone No Ref-Primary, Physician Primary Care Provider Reason for Visit * Diagnostic Imaging XR (Routine) - Pending Review Specialty Diagnoses / Procedures Referred By Contac t Referred To Contact Radiology. Diagnoses Right hip pain Procedures XR Pelvis and Hip Right 1 View Kei Eugene MD [address] [place] [address] Phone: tel: fax: Referral ID Status Reason Start Date Expiration Date V isits Requested Visits Authorized [id number] Pending Review 01/30/2024 01/29/2025 1 1 Encounter Details Date Type Department Care Team (Late st Contact Info) Description 02/09/2024 8:45 AM HOT DIP PLATER Ancillary Procedure [facility] Orthopedic Xray [address] 4[address] [place] [phone] Kei Eugene MD [address] [place] [phone] Right hip pain Social History Tobacco Use Types Packs/Day Years Used Date Smoking Tobacco: Never Assessed PHQ-2 Answer Date Recorded PHQ-2 Score 0 02/09/2024 Sex and Gender Information Value Date Recorded Sex Assigned at Not on file Legal Sex Male 9:18 AM HOT DIP PLATER Gender Identity Not on file Sexual Orientation Not on file documented as of this encounter Plan of Treatment Scheduled Procedures Name Priority Associated Diagnoses Date/Ti me SURGICAL EXTRACTION, TOOTH Chronic pericoronitis documented as of this encounter Procedures Procedure Name Priority Date/Time Associated Diagnosis Comments XR PELVIS AND HIP RIGHT 1 VIEW Routine 02/09/2024 8:29 AM HOT DIP PLATER Right hip pain documented in this encounter Results * XR Pelvis and Hip Right 1 View (02/09/2024 8:29 AM HOT DIP PLATER) Anatomical Region Laterality Modality Abdomen/Pelvis Right Computed Radiogr aphy Impressions 02/09/2024 5:13 PM HOT DIP PLATER Impression: 1 No acute osseous abnormality. 2. Bilaterally anterior acetabular overcoverage. I have personally reviewed the examination and initial interpretation and I agree with the findings. ELLI BLUE MD Narrative 02/09/2024 5:13 PM HOT DIP PLATER 2 views pelvis radiograph(s) 02/09/2024 8:29 AM History: Right hip pain Additional History from EMR: History of Kamari-Danlos syndrome. Prior arthroscopy for labral tear repair and femoral neck osteoplasty at [facility]. Comparison: Right hip MRI arthrogram 10/31/2023. [...] tear repair and femoral neck osteoplasty at [facility] 2020. Comparison: Right hip MRI arthrogram 10/31/2023. [...] this encounter Visit Diagnoses Diagnosis Right hip pain Pain in joint, pelvic region and thigh documented in this encounter Care Teams Hand Tier Relationship Specialty Start Date End Date No Ref-Primary, Physician PCP - General 02/09/24 documented as of this encounter
--- OUTSIDE RECORDS SUMMARY | 2024-03-01 22:12 | XMS_ITS | Patient Health Record ---
Author Organization [facility] Address [address] 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 Plan Of Treatment Pending Test Test Name Order Date C-Reactive Protein (CRP) (CRP) 8 Insurance Providers Payer Name Payer Address Payer Phone Subscriber Number Group Number Insured Name Patient Relationship to Insured Coverage Start Date Coverage End Date BLUE PLUS PMAP-20 19 [address] [address] [place] [phone] [id number] [facility]jit Boyce Self - patient is the insured 9 Medical (General) History Medical History History ICD Code Syndromes/anomalies: Connective tissue d isorder Other: Pectus excavatum, Acquired pectus carinatum Surgical History Surgery Date(Month/Year) Daja procedure for pectus excavatum 10/08 10/25
--- OUTSIDE RECORDS SUMMARY | 2024-03-01 22:12 | XMS_ITS | Encounter Summary ---
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
--- OUTSIDE RECORDS SUMMARY | 2024-03-01 22:12 | XMS_ITS | Encounter Summary ---
Author Organization [place] Address [address] [place] [address]. [place] [address] Care Team Providers Care Hot Iron Worker Name Role Phone No Ref-Primary, Physician Primary Care Provider Reason for Visit * Reason Comments Consult Right hip scope at [facility] in Feb 2019. Had good pain relief for awhile but it started coming back. [facility] Heath has offered to do a GUILLERMO. She wants him to get another opinion to see if you agree with her. There seems to be something else that is contributing with pain. May have Kamari Danlos, has sx's of Marfan's but does not carry the gene. [facility] put a hip spica cast on the left fall of 2019 and helped the achy pain but not the sharp pain. 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 Encounter Details Date Type Department Care Team (Late st Contact Info) Description 02/09/2024 9:00 AM COLD MILL OPERATOR Office Visit [facility] [address] [place] [address] Kei Eugene MD [address] [facility] [address] [place], [place] [id number] Right hip pain (Primary Dx); Sacroiliac joint dysfunction of right side Social History Tobacco Use Types Packs/Day Years Used Date Smoking Tobacco: Never Assessed PHQ-2 Answer Date Recorded PHQ-2 Score 0 02/09/2024 Sex and Gender Information Value Date Recorded Sex Assigned at Not on file Legal Sex Male 9:18 AM 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 MILL 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 Gender Identity Not on file Sexual Orientation Not on file documented as of this encounter Last Filed Vital Signs Vital Sign Reading Time Taken Comments Blood Pressure - - Pulse - - Temperature - - Respiratory Rate - - Oxygen Saturation - - Inhaled Oxygen Concentration - - Weight 70.6 kg (155 lb 11.2 oz) 02/09/2024 8:58 AM COLD MILL OPERATOR Height 188 cm (6' 2) 02/09/2024 8:58 AM COLD MILL OPERATOR Body Mass Index 19.99 02/09/2024 8:58 AM COLD MILL OPERATOR documented in this encounter Progress Notes * Kei Eugene MD - 02/09/2024 9:00 AM CST Assessment and plan: This is a 23 yo male with likely 2 different problems. He has groin symptoms associated with a large crossover sign early arthritis and question of a retear of the repaired labrum. He also has significant posterior symptoms and a positive sacroiliac joint examination today. He reports that the posterior symptoms drive the majority of his necessary activity changes. This is perhaps consistent with his description of no improvement with diagnostic injection on the right side.In terms of his questions about arthroplasty I do not see a role for that here at all. In terms of joint preservation surgery 1 could consider a repeat arthroscopy and I think prognosis for improvement with isolated arthroscopy may be guarded secondary to his primary acetabular problem development of arthritis along the anterior rim. He also has questions about periacetabular osteotomy and I think by this he likely means reverse GUILLERMO. I think this is wrong and I would not argue strongly against it on only that the goals of it would have to be clear specifically that I would not anticipate it improving the posterior/SI joint-type symptoms and that with rotating the anterior rim into a weightbearing position there would be a risk of symptoms secondary to cartilage loss. All the patient's questions were answered to the best my ability. Plan: He has 2 physical medicine rehabilitation doctors both locally and at [facility]. I suggested that a reasonable neck step for him would be discussed with them an SI joint workup plus or minus an injection of SI joint with a local and steroid. Chief Complaint: Consult (Right hip scope at [facility] in Feb 2019. Had good pain relief for awhile but it started coming back. Got a 2nd opinion in July [address] [facility] Heath has offered to do a GUILLERMO. She wants him to get another opinion to see if you agree with her. There seems to be something else that is contributing with pain. May have Kamari Danlos, has sx's of Marfan's but does not carrythe gene. [facility] put a hip spica cast on the left fall of 2019 and helped the achy pain but not the sharp pain. 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 Thisis a second opinion visit specifically to address joint preservation surgery versus arthroplasty versus other. Location of symptoms: He reports that the main pain stage driver for him is posterior at the level of thePSIS. 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 He also has groin pain. This is similar to the symptoms he had before his arthroscopy. He experiences per his report this groin pain and posterior/PSIS symptoms indepe ndently. Onset: Insidious Duration of symptoms: Greater than 5 years Quality of symptoms: Aching and sharp Severity: Severe Alleviating: activity modification Exacerbating: activities Previous Treatments: Previous treatments include activity modification, oral pain medication. Has had bilateral intra-articular injection of lidocaine. He had good relief on the contralateral side and no relief on the ipsilateral side. CIARRA Jr: PROMIS Mental: (Patient-Rptd) (P) 14 PROMIS Physical: (Patient-Rptd) (P) 12 PROMIS Total: (Patient-Rptd) (P) 26 UCLA Activity Scale: MEDICAL HISTORY: No past medical history on file. Reports he has been worked up for Marfan's which is been negative. Told that he had a variant of Kamari-Danlos. Pertinent negatives: Patient has no history of DVT or PE. Discussed risk factors. Medications: No current outpatient medications on file. Reviewed and noncontributory Allergies: Patient has no known allergies. SURGICAL HISTORY: No past surgical history on file. Underwent ipsilateral right hip arthroscopy and 2020 with Zoltan Combs at [facility]. Reports that he had good short-term relief of his groin pain. HISTORY: No family history on file. SOCIAL HISTORY: Social History Tobacco Use Smoking status: Not on file Smokeless tobacco: Not on file Substance Use Topics Alcohol use: Not on file REVIEW OF SYSTEMS: The comprehensive review of systems from the intake form was reviewed with the patient. No fever, weight change or fatigue. No dry eyes. No oral ulcers, sore throat or voice change. No palpitations, syncope, angina or edema. No chest pain, excessive sleepiness, shortness of breath or hemoptysis. No abdominal pain, nausea, vomiting, diarrhea or heartburn. No skin rash. No focal weakness or numbness. No bleeding or lymphadenopathy. No rhinitis or hives. Exam: On physical examination the patient appears the stated age, is in no acute distress, alert and oriented, affect is appropriate, and breathing is non-labored. Vitals are documented in the EMR and have been reviewed: Ht 1.88 m (6' 2) Wt 70.6 kg (155 lb 11.2 oz) BMI 19.99 kg/m?? 6' 2 Body mass index is 19.99 kg/m??. Rises from chair: Easily Gait: Normal Trendelenburg test: Gains the exam table: Easily RIGHT hip subjective: Right hip is not irritated Abd: 35 Add: 10 Flexion: 100 IRF: 5 ERF: 35 Impingement test: Mild groin only Tenderness to palpation: Trochanter mild, PSIS is quite tender and reproduces his posterior pain. SI tests are positive including Mika Toledo's, figure 4, pelvic compression LEFT hip subjective: Not irritated today Range of motion is symmetric with the contralateral side. SI tests are negative but produce some symptoms on the right. He is more tender to palpation over the left greater trochanter and on the right. Distal the circulatory, motor, and sensation exam is intact with 5/5 EHL, gastroc-soleus, and tibialis anterior. Sensation to light touch is intact. Dorsalis pedis and posterior tibialis pulses are palpable. There are no sores on the feet, no bruising, and no lymphedema. Imaging: Tonus grade 1 right hip Lateral center edge angle 37 degrees Tonus angle -1 Hip is retroverted with a large crossover sign and corresponding decrease in posterior coverage. This is not global coverage. MRI shows arthritis in the anterior rim and question of a retear of the labrum Femoral anteversion 18 degrees MILL OPERATOR documented in this encounter Nursing Notes * MartinezLucrecia breaux ATC - 02/09/2024 9:00 AM CST Reason For Visit: Chief Complaint Patient presents with Consult Right hip scope at [facility] in Feb 2019. Had good pain relief for awhile but it started coming back. Got a 2nd opinion in July [address] [facility] Heath has offered to do a GUILLERMO. She wants him to get another opinion to see if you agree with her. There seems to be something else that is contributing with pain. May have Kamari Danlos, has sx's of Marfan's but does not carry the gene. [facility] put a hip spica cast on the left fall of 2019 and helped the achy pain but not the sharp pain. Plays ultimate [employer] Ht 1.88 m (6' 2) Wt 70.6 kg (155 lb 11.2 oz) BMI 19.99 kg/m?? Lucrecia Martinez ATC MILL OPERATOR documented in this encounter Plan of Treatment Scheduled Procedures Name Priority Associated Diagnoses Date/Ti me SURGICAL EXTRACTION, TOOTH Chronic pericoronitis documented as of this encounter Visit Diagnoses Diagnosis Right hip pain- Primary Pain in joint, pelvic region and thigh Sacroiliac joint dysfunction of right side Disorders of sacrum documented in this encounter Care Teams Hot Iron Worker Relationship Specialty Start Date End Date No Ref-Primary, Physician PCP - General 02/09/24 documented as of this encounter
== END 2024-03-01 22:40 | disposition home or self-care (01) ==
PROVIDERS: Emergency Provider Emergency Medicine Emergency Medical Services; PCP Family Medicine
DX: R33.9 Retention of urine, unspecified (principal); E87.70 Fluid overload, unspecified
CPT/HCPCS: 96374; 99283; 99284; J2405; J7030

== ENCOUNTER 2024-05-17 14:48 | Emergency (ER) | payer BC, SELFPAY ==
[2024-05-17 14:51] VITALS: BP 172/73; PULSE 102; RESP 18; TEMP 37.2; O2SAT 99; BMI 19.3
--- NOTE | 2024-05-17 15:07 | ED.GENADULT ---
HPI - General Adult General Date Seen: 05/17/24 Chief complaint: Unspecified Complaint, Adult Stated complaint: UTI, L hand injury Time Seen by Provider: 05/17/24 15:04 History of Present Illness HPI narrative: 24-year-old male with history of Kamari-Danlos syndrome, pectus excavatum, chronic pain in his back and hip, Klinefelter syndrome, chronically self catheterization for urinary retention, history of UTIs, recent right lower extremity orthopedic surgery with long leg cast. Per records through [facility] the from the [facility] his primary care clinic is [facility]. He had a visit 2 days ago on 05/15. He is on Prozac for mental health and was there for follow-up. He also had an ankle surgery in April for repair of a fibular fracture also tendon repair and bone shaving. He also has trouble with his hip that subluxes and he is on crutches. He had fallen on May 14 and was having wrist pain which made it difficult for him to use his wheelchair at home. He also self catheterizes his bladder and has been technically more difficult for him. He had been having some pain in his bladder. He has a GJ tube in noticed some redness around the GJ tube site. He has been having some difficulty tolerating oral feeds and having nausea. UA showed> 100 WBC, 0-2 RBC. Labs showed sodium 141, potassium 4.4, chloride 102, bicarb 29, glucose 110, BUN 12, creatinine 1.05. WBC was 16.5, hemoglobin 15.7, platelet count 243. CT scan of his CT scan of his chest was negative for PE or other acute findings. He was prescribed cephalexin 500 t.i.d.. Urine culture grows 10-50 CFU of E coli, 10-50 CFU of Enterococcus faecalis, 10-50 CFU of multiple organisms probable contaminants. \He presents to the ER today with multiple complaints. He has been feeling more bladder symptoms for the past several days or week and along with that increased nausea, decreased ability to tolerate his GJ tube feedings, and inability to take his oral antibiotic prescribed by his PCP office. In addition to those symptoms, that he had a fall today when he was trying to you transfer in his home and he jammed his left wrist and now has pain on the thenar eminence. He is feeling just generally weak and dizzy. He had a fever up to 100.4 yesterday.. Related Data Home Medications ?Medication ?Instructions ?Recorded ?Confirmed diclofenac sodium 1 % topical gel 2 g topical QID 11/08/23 05/17/24 famotidine 40 mg tablet 40 mg PO DAILY 11/08/23 05/17/24 polyethylene glycol 3350 17 17 g PO DAILY PRN 11/28/23 05/17/24 gram/dose oral powder diazepam 5 mg tablet 5 mg PO TID PRN 05/17/24 05/17/24 fluoxetine 20 mg capsule 20 mg PO DAILY 05/17/24 05/17/24 metoclopramide HCl 5 mg tablet 5 mg PO TID 05/17/24 05/17/24 Previous Rx's ?Medication ?Instructions ?Recorded ondansetron 4 mg disintegrating 4 mg PO Q8H PRN nausea and 12/02/23 tablet vomiting #10 tabs amoxicillin 400 mg-potassium 10 ml PO BID 7 days #140 mL 05/17/24 clavulanate 57 mg/5 mL oral suspension cefdinir 250 mg/5 mL oral 300 mg (6 mL) PO BID 7 days #84 mL 05/17/24 suspension Allergies Allergy/AdvReac Type Severity Reaction Status Date / Time No Known Allergies Allergy Verified 05/17/24 15:00 [facility] Medical History (Updated 05/17/24 @ 19:57 by David Carrington MD) 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) ?Q98.4 - Klinefelter syndrome, unspecified (ICD-10) 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) ?Q79.60 - Kamari-Danlos syndrome, unspecified (ICD-10) Connective tissue disorder (01/04/18) ?M35.9 - Systemic involvement of connective tissue, unspecified (ICD-10) Tension-type headache (09/24/20) ?G44.209 - Tension-type headache, unspecified, not intractable (ICD-10) 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) ?M26.609 - Unspecified temporomandibular joint disorder, unspecified side (ICD-10) Labral tear of right hip joint (12/12/19) ?S73.191A - Other sprain of right hip, initial encounter (ICD-10) Scoliosis (01/04/18) ?M41.9 - Scoliosis, unspecified (ICD-10) Polyarthralgia ?M25.50 - Pain in unspecified joint (ICD-10) Pes planus (03/23/18) ?M21.40 - Flat foot [pes planus] (acquired), unspecified foot (ICD-10) Pectus excavatum (12/29/13) ?Q67.6 - Pectus excavatum (ICD-10) Pain in left wrist (07/01/20) ?M25.532 - Pain in left wrist (ICD-10) Hip pain, bilateral (12/12/19) ?M25.551 - Pain in right hip (ICD-10) ?M25.552 - Pain in left hip (ICD-10) Myofascial pain syndrome (09/24/20) ?M79.18 - Myalgia, other site (ICD-10) 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) ?M35.7 - Hypermobility syndrome (ICD-10) Hypogonadism male (03/23/18) ?E29.1 - Testicular hypofunction (ICD-10) Hypermobility of joint (09/24/20) ?M24.9 - Joint derangement, unspecified (ICD-10) Foot drop, left ?M21.372 - Foot drop, left foot (ICD-10) Exertional headache (04/18/18) ?G44.84 - Primary exertional headache (ICD-10) De Quervain's tenosynovitis (05/23/20) ?M65.4 - Radial styloid tenosynovitis [de Quervain] (ICD-10) Congenital pes planus (03/23/18) ?Q66.50 - Congenital pes planus, unspecified foot (ICD-10) Chronic back pain (04/21/23) ?M54.9 - Dorsalgia, unspecified (ICD-10) ?G89.29 - Other chronic pain (ICD-10) Cell chromosome examination abnormal (03/23/18) ?R89.8 - Other abnormal findings in specimens from other organs, systems and tissues (ICD-10) Bilateral tinnitus (09/24/20) ?H93.13 - Tinnitus, bilateral (ICD-10) Atrophy of testis (03/23/18) ?N50.0 - Atrophy of testis (ICD-10) 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) ?M26.639 - Articular disc disorder of temporomandibular joint, unspecified side (ICD-10) Arthralgia of temporomandibular joint (09/24/20) ?M26.629 - Arthralgia of temporomandibular joint, unspecified side (ICD-10) Acquired pectus carinatum ?M95.4 - Acquired deformity of chest and rib (ICD-10) Dyspepsia ?R10.13 - Epigastric pain (ICD-10) Malnutrition ?E46 - Unspecified protein-calorie malnutrition (ICD-10) Klinefelter syndrome ?Q98.4 - Klinefelter syndrome, unspecified (ICD-10) Connective tissue disorder ?M35.9 - Systemic involvement of connective tissue, unspecified (ICD-10) Weakness ?R53.1 - Weakness (ICD-10) Instability of left hip joint ?M25.352 - Other instability, left hip (ICD-10) Wrist joint instability ?M25.339 - Other instability, unspecified wrist (ICD-10) 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 - Kamari-Danlos syndrome, unspecified (ICD-10) Scaphoid fracture ?S62.009A - Unspecified fracture of navicular [scaphoid] bone of unspecified wrist, initial encounter for closed fracture (ICD-10) Klinefelter syndrome ?Q98.4 - Klinefelter syndrome, unspecified (ICD-10) 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 - Pectus excavatum (ICD-10) Contusion of great toe of left foot ?S90.112A - Contusion of left great toe without damage to nail, initial encounter (ICD-10) Chronic patellofemoral pain of left knee ?M25.562 - Pain in left knee (ICD-10) ?G89.29 - Other chronic pain (ICD-10) Tear of triangular fibrocartilage complex (TFCC) of right wrist (~07/2021) ?S63.591A - Other specified sprain of right wrist, initial encounter (ICD-10) Surgical History (Updated 12/29/23 @ 12:45 by Alina Machuca) Status post arthroscopy of hip ?Z98.890 - Other specified postprocedural states (ICD-10) History of carpal tunnel surgery of left wrist (02/02/21) ?Z98.890 - Other specified postprocedural states (ICD-10) Social History (Updated 11/25/23 @ 20:12 by Edgar Lopez MD) Narrative: He lives with his mother. His mother has left for trip to [place] 9 days ago. He is mostly home alone. His father, who has significant disabilities, comes to stay with him at times. He also has therapists and home health who come into the home daily. 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 He has been unable to work recently because of his multiple disabilities. He does not smoke. He drinks alcohol a couple times a week. He occasionally uses cannabis. What is your current living situation?: I presently have a place to live Problems where you live: no known problems Problems where you live details: n/a In the past 12 months, utilities in danger of being shut off: no In past 12 months, lack of transportation kept you from medical appts, meetings, work, or getting things needed for daily living: yes In the past 12 mos, have been you worried that your food would run out before you had money to buy more?: never true In the past 12 mos, the food you bought just didn't last and you didn't have money to buy more?: never true Smoking Status: Never smoker Do you use any of these nicotine containing products: None Second hand tobacco smoke exposure: Yes (occasionally) How often do you have a drink containing alcohol: 2-4 times a month How many standard drinks containing alcohol do you have on a typical day: 3 or 4 How often do you have six or more drinks on one occasion: Less than monthly AUDIT-C Alcohol total score: 4 Non-prescribed substance use: denies use Caffeine: Yes (rarely) How often does anyone, including family, friends and others, physically hurt you: never How often does anyone, including family, friends and others, insult or talk down to you: never How often does anyone, including family, friends and others, threaten you with harm: never How often does anyone, including family, friends and others, scream or curse at you: never service: No Health Related Social Needs: transportation insecurity (Z59.82) Exam Narrative: Exam Narrative: Constitutional: Appears well-developed and well-nourished. Alert. Conversant, but seems more somewhat anxious. Non toxic. HENT: Head: Atraumatic. Nose: Nose normal. Mouth/Throat: Oral mucosa is clear and moist. no trismus. Pharynx normal. Tonsils symmetric. Eyes: Conjunctivae normal. EOM normal. Pupils equal, round, and reactive to light. No scleral icterus. Neck: Normal range of motion. Neck supple. No tracheal deviation present. Cardiovascular: Normal rate, regular rhythm. No gallop. No friction rub. No murmur heard. Symmetric radial artery pulses Pulmonary/Chest: Effort normal. No stridor. No respiratory distress. No wheezes. No rales. No rhonchi . No tenderness. Abdominal: Soft. Bowel sounds normal. No distension. No mass. No tenderness. No rebound. No guarding. Mild right CVA tenderness. Musculoskeletal: RUE: Normal range of motion. No tenderness. No deformity LUE: Shoulder, clavicle, humerus, elbow, forearm are normal. Wrist: Mildly tender over the volar wrist and the volar thenar eminence. There is a small amount of bruising roughly 1 x 2 cm on the palmar surface of the thenar eminence. Flexion/extension the wrist is limited by discomfort and apprehension. No bony deformities. No definite focal tenderness in the dorsal wrist or in the anatomic snuffbox. Hand, fingers, and distal thumb are nontender. Range of motion of the thumb is limited by the thenar eminence pain. RLE: Normal range of motion. No edema. No tenderness. No deformity LLE: Normal range of motion. No edema. No tenderness. No deformity Neurological: Alert and oriented to person, place, and time. Normal strength. CN II-VII intact. No sensory deficit. GCS eye subscore is 4. GCS verbal subscore is 5. GCS motor subscore is 6. Normal coordination Skin: Skin is warm and dry. No rash noted. No pallor. Normal capillary refill. Psychiatric: Normal mood. Normal affect. Const: Vital Signs, click to edit/add: Vital Signs - 24 hr 05/17/24 14:51 05/17/24 17:40 Temperature 98.9 F Pulse Rate [Right Pulse Oximeter] 102 H 84 Respiratory Rate 18 18 Blood Pressure [Ri ght Upper Arm] 172/73 H 129/87 Pulse Oximetry 99 97 Oxygen Delivery Me thod Room Air Room Air Course Vital Signs Vital signs: Initial Vital Signs Temperature 98.9 F 05/17/24 14:51 Temperature Source Temporal Artery Scan 05/17/24 14:51 Pulse Rate 102 H 05/17/24 14:51 Pulse Rhythm Regular 05/17/24 14:51 Pulse Strength 3+ Normal 05/17/24 14:51 Respiratory Rate 18 05/17/24 14:51 Blood Pressure 172/73 H 05/17/24 14:51 Blood Pressure Mean 106 H 05/17/24 14:51 Blood Pressure Position Sitting 05/17/24 14:51 Pulse Oximetry 99 05/17/24 14:51 Oxygen Delivery Method Room Air 05/17/24 14:51 Vital Signs Temperature 98.9 F 05/17/24 14:51 Pulse Rate 102 H 05/17/24 14:51 Respiratory Rate 18 05/17/24 14:51 Blood Pressure 172/73 H 05/17/24 14:51 Pulse Oximetry 99 05/17/24 14:51 Oxygen Delivery Method Room Air 05/17/24 14:51 Temperature 98.9 F 05/17/24 14:51 Pulse Rate 84 05/17/24 17:40 Respiratory Rate 18 05/17/24 17:40 Blood Pressure 129/87 05/17/24 17:40 Pulse Oximetry 97 05/17/24 17:40 Oxygen Delivery Method Room Air 05/17/24 17:40 Medications Administered Medications: Discontinued Medications Generic Name Dose Route Start Last Admin Trade Name Freq PRN Reason Stop Dose Admin Diazepam 5 mg 05/17/24 17:26 05/17/24 17:37 Diazepam 5 Mg Tablet PO 05/17/24 17:27 5 mg ONCE ONE Administration Ampicillin Sodium/Sulbactam 100 mls @ 200 mls/hr 05/17/24 16:12 05/17/24 19:15 Sodium 3 gm/ Sodium Chloride IVPB 05/17/24 16:13 Infused ONCE ONE Infusion Ceftriaxone Sodium 1 gm/ 100 mls @ 200 mls/hr 05/17/24 16:12 05/17/24 17:42 Sodium Chloride IVPB 05/17/24 16:13 Infused ONCE ONE Infusion Sodium Chloride 1,000 mls @ 1,000 mls/hr 05/17/24 16:16 05/17/24 19:15 0.9 % Sodium Chloride 1000 Ml IV 05/17/24 17:15 Infused .Q1H BARBARA Infusion Ondansetron HCl 4 mg 05/17/24 16:12 05/17/24 16:58 Ondansetron 2 Mg/Ml Inj IVP 05/17/24 16:13 4 mg ONCE ONE Administration Medical Decision Making MDM Narrative Medical decision making narrative: 24-year-old male with a complex past medical history including recent diagnosis of bladder infection (culture growing E coli and Enterococcus but no sensitivity data yet) also with for Kamari-Danlos syndrome connective tissue disorder leading to chronic pain, with also recent right lower extremity orthopedic surgery. He presents to the ER today with multiple complaints. He has been feeling more bladder symptoms for the past several days or week and along with that increased nausea, decreased ability to tolerate his GJ tube feedings, and inability to take his oral antibiotic prescribed by his PCP office. In addition to those symptoms, that he had a fall today. 1. Orthopedics. He did fall today and injured his left wrist. He does have some bruising on the thenar eminence. X-rays of the left wrist are negative for any fracture. However consider possible occult scaphoid fracture. Incidental note of possible chronic lesion affecting the lunate bone is noted on x-ray. Recommended outpatient MRI and discussed with the patient. We placed the patient into a removable thumb spica splint. Of note, the patient says that he typically feels better and more stable when he has fiberglass casts on his wrists. He requested we put him into a cast. We discussed that is not available here in the emergency department. He also requested a fiberglass thumb spica splint for his injured wrist. I agree to change the splint from the removal fiberglass splint to a ortho glass splint. Later in his ER course I completed his discharge paperwork and then was called for another patient emergency and the patient was discharged by nursing before I get back to his room to change the splint. I contact the patient on the phone after discharge. 2. Infectious disease. Patient has had symptoms of UTI including bladder pain, urinary frequency, also fevers, right flank pain, and increased nausea and dizziness over his baseline over the past few days. He has not been able to take a couple of doses of his oral cephalexin. Based on his cultures I suspect cephalexin is probably not adequate. Cephalexin may be a good choice to treat UTI from E coli but typically Enterococcus would be resistant to 1st generation cephalosporins. Discussed antibiotic regimen with our pharmacist. He would agree that a ampicillin containing antibiotic would be appropriate for Enterococcus and that a 3rd generation cephalosporin such as Rocephin or Omnicef would be appropriate to treat E coli. IV antibiotics administered here in the ER. Although he reports fever at home, as well as dizziness, he is hemodynamically stable here in the ER. Blood pressure normal. White count today is 8, which actually is down from his white count at the clinic last Tuesday when he was 16. Venous lactic acid is normal. At this point no evidence for sepsis or septic shock. Kidney function is normal. Electrolytes normal. At this point no evidence for sepsis physiology or renal failure. At this point with improving white count from clinic the other day I think it is reasonable to treat the patient with oral antibiotics at home. Will change antibiotics to liquid Augmentin which she can take through his G-tube and liquid Omnicef. This combination would cover both Enterococcus and most strains of E coli. Lab Data Labs: Lab Results 05/17/24 Range/Units 16:25 WBC 8.48 (4.50-11.00) K/uL RBC 5.15 (4.30-5.90) m/uL Hgb 15.2 (13.5-17.5) gm/dL Hct 44.4 (37.0-53.0) % MCV 86 (80-100) fL MCH 30 (26-34) pg MCHC 34 (32-36) gm/dL RDW Coeff of Mele 12.5 (11.5-15.5) % Plt Count 238 (140-440) K/uL Neut % (Auto) 71.7 (42.0-72.0) % Lymph % (Auto) 18.9 L (20-44) % [place] % (Auto) 7.7 (0.0-11.0) % Eos % (Auto) 1.4 (0.0-7.0) % Baso % (Auto) 0.2 (0.0-3.0) % Neut # (Auto) 6.08 (1.7-7.0) K/uL Lymph # (Auto) 1.60 (0.90-2.90) K/uL [place] # (Auto) 0.70 (0.00-0.90) K/UL Eos # (Auto) 0.12 (0.00-0.50) K/uL Baso # (Auto) 0.02 (0.00-0.30) K/uL Abs Immat Gran (auto) 0.01 (0.00-0.30) K/uL Imm/Tot Granulo (auto) 0.1 % Sodium 137 (135-149) mmol/L Potassium 4.2 (3.6-5.1) mmol/L Chloride 100 (96-114) mmol/L Carbon Dioxide 26 (20-32) mmol/L Anion Gap 11 (7-15) mEq/L BUN 15 (5-24) mg/dL Creatinine 0.8 (0.5-1.5) mg/dL Estimated Creat Clear 137.02 Estimated GFR 127 ml/min Glucose 77 (60-115) mg/dL Lactate 1.2 (0.5-1.9) mmol/L Calcium 9.7 (8.4-10.6) mg/dL Imaging Data XR wrist: Attestation: I have reviewed the pertinent imaging results. Radiologist's impression: IMPRESSION: 1. No acute fractures or dislocation. 2. Abnormal sclerosis of the lunate may represent osteonecrosis (Kienbock`s disease). Correlate with physical examination. Consider further evaluation with MRI on a nonemergent, outpatient setting if clinically warranted. Discharge Plan Discharge Clinical Impression: Acute UTI, Acute pain of left wrist Patient Disposition: Home, Self-Care Condition: Stable Instructions: Wrist Injury (ED), Urinary Tract Infection in Men (DC) Additional Instructions: As we discussed, to treat your bladder infection, please change antibiotics. Stop cephalexin and switch to the 2 new antibiotics beginning tomorrow morning. Please come back to the ER right away if you have higher fevers, worsening weakness, inability to tolerate oral antibiotics, or other concerns. Even if you are getting better, please recheck with your regular doctor within 3-4 days. For your left wrist injury: we do not see any broken bones on your x-ray today. However please wear the wrist brace to protect your scaphoid bone. Also please follow-up with your orthopedic doctors or with the [facility] within 7 days. If you want to see the [facility], call (call [phone]) to schedule an ER follow-up appointment. Activity Level: No Restrictions Discharge Diet: Regular Prescriptions: New amoxicillin-pot clavulanate 400-57 mg/5 mL suspension for reconstitution 10 ml PO BID 7 Days Qty: 140 0RF cefdinir 250 mg/5 mL suspension for reconstitution 300 mg PO BID 7 Days Qty: 84 0RF No Action metoclopramide HCl 5 mg tablet 5 mg PO TID fluoxetine 20 mg capsule 20 mg PO DAILY diazepam 5 mg tablet 5 mg PO TID PRN famotidine 40 mg tablet 40 mg PO DAILY diclofenac sodium 1 % gel 2 g topical QID polyethylene glycol 3350 17 gram/dose powder 17 g PO DAILY PRN ondansetron 4 mg tablet,disintegrating 4 mg PO Q8H PRN (Reason: nausea and vomiting) Qty: 10 0RF Follow Up/Referrals: Eliana Guerra MD [Primary Care Provider] - Stand Alone Forms: [employer] Info Instructions
--- NOTE | 2024-05-17 16:12 | CRLHL7_ITS ---
For Patients: As a result of the Century Cures Act, medical imaging exams and procedure reports are released immediately into your electronic medical record. You may view this report before your referring provider. If you have questions, please contact your health care provider. INDICATION: Trauma. TECHNIQUE: Left wrist radiographs, 3 views. COMPARISON: None. FINDINGS: No acute fractures or dislocation. The joint spaces are preserved. The scaphoid is intact. Abnormal sclerosis of the lunate, without definite flattening or collapse of the lunate. No significant soft tissue edema or radiopaque foreign bodies. IMPRESSION: 1. No acute fractures or dislocation. 2. Abnormal sclerosis of the lunate may represent osteonecrosis (Kienbock`s disease). Correlate with physical examination. Consider further evaluation with MRI on a nonemergent, outpatient setting if clinically warranted. Dictated by Luís Best MD @ 05/17/2024 5:05:23 PM (Electronically Signed)
[2024-05-17 16:34] LABS: Lactate* 1.2 mmol/L (0.5-1.9)
[2024-05-17 16:39] LABS: Basophils Absolute Auto 0.02 K/uL (0.00-0.30); Basophils Percent Auto 0.2 % (0.0-3.0); Eosinophils Absolute Auto 0.12 K/uL (0.00-0.50); Eosinophils Percent Auto 1.4 % (0.0-7.0); Hematocrit 44.4 % (37.0-53.0); Hemoglobin* 15.2 gm/dL (13.5-17.5); Immature Granulocytes Abs Auto 0.01 K/uL (0.00-0.30); Immature Granulocytes Pct Auto 0.1 %; Lymphocytes Percent Auto 18.9 % (20-44); Mean Corpuscular HGB Conc 34 gm/dL (32-36); Mean Corpuscular Hemoglobin 30 pg (26-34); Mean Corpuscular Volume 86 fL (80-100); Monocytes Percent Auto 7.7 % (0.0-11.0); Neutrophils Absolute Auto 6.08 K/uL (1.7-7.0); Neutrophils Percent Auto 71.7 % (42.0-72.0); Platelet Count* 238 K/uL (140-440); RDW Coefficient of Variation % 12.5 % (11.5-15.5); Red Blood Count 5.15 m/uL (4.30-5.90); White Blood Count* 8.48 K/uL (4.50-11.00)
[2024-05-17 16:44] LABS: Slide Review Reflex No
[2024-05-17] MEDS: ONDANSETRON 2 MG/ML inj 4 MG IVP (16:58)
[2024-05-17] MEDS: 0.9 % SODIUM CHLORIDE 1000 ml 1,000 ML IV (16:58)
[2024-05-17] MEDS: cefTRIAXone 1 GM in 0.9 % SODIUM CHLORIDE Mini-bag 100 ML IVPB (16:59)
[2024-05-17 17:02] LABS: Chloride* 100 mmol/L (96-114)
[2024-05-17 17:03] LABS: Potassium* 4.2 mmol/L (3.6-5.1); Sodium* 137 mmol/L (135-149)
[2024-05-17 17:06] LABS: Anion Gap 11 mEq/L (7-15); Blood Urea Nitrogen* 15 mg/dL (5-24); Calcium* 9.7 mg/dL (8.4-10.6); Carbon Dioxide* 26 mmol/L (20-32); Creatinine* 0.8 mg/dL (0.5-1.5); Est. Creatinine Clearance* 137.02; Estimated Glomerular Filt Rate 127 ml/min; Glucose* 77 mg/dL (60-115)
[2024-05-17] MEDS: diazePAM 5 MG TABLET PO (17:37)
[2024-05-17 17:40] VITALS: BP 129/87; PULSE 84; RESP 18; O2SAT 97
[2024-05-17] MEDS: AMPICILLIN/SULBACTAM 3 GM in 0.9 % SODIUM CHLORIDE Mini-bag 100 ML IVPB (18:13)
--- OUTSIDE RECORDS SUMMARY | 2024-05-17 19:31 | XMS_ITS | Encounter Summary ---
Author Organization [facility] Address [address] [place] [address] Care Team Providers Care Hoop Maker Helper Machine Name Role Phone Elsewhere, Pcp Primary Care Provider Unavailabl e Reason for Referral * Outpatient (Routine) - Authorized Specialty Diagnoses / Procedures Referred By Ye lund Referred To Contact Sports Medicine Candida Lucero P.A.-C. [address] [place] [phone] Phone: tel: fax: Ahsan Talbert M.D., Ph.D. [address] [place] [phone] Phone: tel: fax: Referral ID Status Reason Start Date Expiration Date V isits Requested Visits Authorized [id number] Authorized 05/01/2024 10/31/2025 1 1 Scheduling Instructions Gali Orders. Return to the clinic with Dr. Talbert Encounter Details Date Type Department Care Team (Late st Contact Info) Description 05/01/2024 Orders Only Department of Orthopedic Surgery in [place], [place] [address] [place] [address] [phone] Candida Lucero P.A.-C. 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 [address] [place] [phone] 06/11/2024 1:00 PM CDT Telemedicine Department of Sports Medicine in [place], [place] [address] [place] [phone] Ahsan Talbert M.D., Ph.D. [address] [place] [phone] Scheduled Referrals Name Type Priority Associated Diagnoses Orde r Schedule Sports Medicine office visit (clinic) Outpatient Referral Routine Expected: 05/01/2024, Expires: 08/01/2025 documented as of this encounter Visit Diagnoses Not on filedocumented in this encounter Additional Health Concerns Assessment Noted Time PHQ-9 Depression Total Score: 5 07/07/19 24 9:17 PM CDT documented as of this encounter Care Teams Hoop Maker Helper Machine Relationship Specialty Start Date End Date Elsewhere, Pcp PCP - General Internal Medicine 05/22/18 documented as of this encounter
--- OUTSIDE RECORDS SUMMARY | 2024-05-17 19:31 | XMS_ITS | Encounter Summary ---
Author Organization [facility] Address [address] [place] [address] Care Team Providers Care Activity Coordinator Name Role Phone Elsewhere, Pcp Primary Care Provider Unavailabl e Encounter Details Date Type Department Care Team (Latest Contact Info) Description 04/10/2024 Clinical Communication Department of Physical Medicine and Rehabilitation in [place], [place] [address] [place] [address] Jak Drummond M.D. [address] [place] [phone] Social History Tobacco Use Types Packs/Day Years Used Date Smoking Tobacco: Never Smokeless Tobacco: Never Alcohol Use Standard Drinks/Week Comments Yes 1 (1 standard drink = 0.6 oz pur e alcohol) [facility] Utilities Answer Date Recorded In the past 12 months has e [employer], gas, oil, or water [employer] threatened to shut off services in your [...] often do you attend chur ch or adventist services? More than 4 times per year [...] Score 0 07/07/2023 [facility] Questionnaire Answer Date Recorded [...] the money to buy more. Never true 04/14/20 24 Within the past 12 months, t [...] your living situation today? [facility] 05/22/2023 Education Answer Date Recorded What is the highest level of school you have completed or the highest degree you have received? 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 [address] [place] [phone] 06/11/2024 1:00 PM CDT Telemedicine Department of Sports Medicine in [place], [place] [address] [place] [address] Ahsan Talbert M.D., Ph.D. 200 [place] [address] documented as of this encounter Visit Diagnoses Not on filedocumented in this encounter Additional Health Concerns Assessment Noted Time PHQ-9 Depression Total Score: 5 07/07/19 24 9:17 PM CDT documented as of this encounter Care Teams Activity Coordinator Relationship Specialty Start Date End Date Elsewhere, Pcp PCP - General Internal Medicine 05/22/18 documented as of this encounter
--- OUTSIDE RECORDS SUMMARY | 2024-05-17 19:31 | XMS_ITS | Encounter Summary ---
Author Organization [facility] Address [address] [place] [address] Care Team Providers Care Maintenance Team Leader Name Role Phone Elsewhere, Pcp Primary Care Provider Unavailabl e Encounter Details Date Type Department Care Team (Latest Contact Info) Description 04/08/2024 Orders Only Department of Physical Medicine and Rehabilitation in [place], [place] [address] [place] [address] Jak Drummond M.D. [address] [place] [phone] Hypermobility Joint (Primary Dx); Klinefelter's Syndrome (HCC); Femoral Acetabular Impingement (MARLENI) Hip Left Social History Tobacco Use Types Packs/Day Years Used Date Smoking Tobacco: Never Smokeless Tobacco: Never Alcohol Use Standard Drinks/Week Comments Yes 1 (1 standard drink = 0.6 oz pur e alcohol) [facility] Utilities Answer Date Recorded In the past 12 months has health system [employer], gas, oil, or water [employer] threatened to shut off services in your [...] week 2022 How often do you attend [facility] or [facility] services? More than 4 [...] Score 0 07/07/2023 [facility] - Occupational [...] living situation today? I have a [facility] place to live 05/22/2023 Education Answer Date Recorded What is the highest level of school you have completed or the highest degree you have received? 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 [address] [place] [phone] 06/11/2024 1:00 PM CDT Telemedicine Department of Sports Medicine in [place], [place] [address] [place] [address] Ahasn Talbert M.D., Ph.D. [address] [place] [address] documented as of this encounter Visit Diagnoses Diagnosis Hypermobility Joint- Primary Klinefelter's Syndrome (HCC) Femoral Acetabular Impingement (MARLENI) Hip Left documented in this encounter Additional Health Concerns Assessment Noted Time PHQ-9 Depression Total Score: 5 07/07/19 24 9:17 PM CDT documented as of this encounter Care Teams Maintenance Team Leader Relationship Specialty Start Date End Date Elsewhere, Pcp PCP - General Internal Medicine 05/22/18 documented as of this encounter
--- OUTSIDE RECORDS SUMMARY | 2024-05-17 19:31 | XMS_ITS | Encounter Summary ---
Author Organization [facility] Address [address] [place] [address] Care Team Providers Care Director Media Name Role Phone Elsewhere, Pcp Primary Care Provider Unavailabl e Encounter Details Date Type Department Care Team (Late st Contact Info) Description 04/06/2024 Orders Only Department of Neurology in [place], [place] [address] [place] [phone] Jak Drummond M.D. [address] [place] [address] Social History Tobacco Use Types Packs/Day Years Used Date Smoking Tobacco: Never Smokeless Tobacco: Never Alcohol Use Standard Drinks/Week Comments Yes 1 (1 standard drink = 0.6 oz pur e alcohol) [facility] Utilities Answer Date Recorded In the past 12 months has e [employer], gas, oil, or water [employer] threatened to shut off services in your [...] Answer Date Recorded PHQ-2 Score 0 07/07/2023 [facility] Occupat ional [facility] - Occupational Stress Questionnaire Answer Date Recorded [...] PM CDT 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 [address] [place] [phone] 06/11/2024 1:00 PM CDT Telemedicine Department of Sports Medicine in [place], [place] [address] [place] [address] Ahsan Talbert M.D., Ph.D. 200 [place] [address] documented as of this encounter Visit Diagnoses Not on filedocumented in this encounter Additional Health Concerns Assessment Noted Time PHQ-9 Depression Total Score: 5 07/07/19 24 9:17 PM CDT documented as of this encounter Care Teams Director Media Relationship Specialty Start Date End Date Elsewhere, Pcp PCP - General Internal Medicine 05/22/18 documented as of this encounter
--- OUTSIDE RECORDS SUMMARY | 2024-05-17 19:31 | XMS_ITS | Encounter Summary ---
Author Organization [facility] Address [address] [place] [address] Care Team Providers Care Meat Press Operator Name Role Phone Elsewhere, Pcp Primary Care Provider Unavailabl e Encounter Details Date Type Department Care Team (Latest Contact Info) Description 04/09/2024 Orders Only Department of Physical Medicine and Rehabilitation in [place], [place] [address] [place] [address] Jak Drummond M.D. [address] [place] [phone] Hypermobility Joint (Primary Dx); Klinefelter's Syndrome (HCC); Femoral Acetabular Impingement (MARLENI) Hip Left Social History Tobacco Use Types Packs/Day Years Used Date Smoking Tobacco: Never Smokeless Tobacco: Never Alcohol Use Standard Drinks/Week Comments Yes 1 (1 standard drink = 0.6 oz pur e alcohol) [facility] Utilities Answer Date Recorded In the past 12 months has [facility] [employer], gas, oil, or water [employer] threatened to shut off services in your [...] week 2022 How often [facility] you attend [facility] or [facility] services? 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 [address] [place] [phone] 06/11/2024 1:00 PM CDT Telemedicine Department of Sports Medicine in [place], [place] [address] [place] [address] Ahsan Talbert M.D., Ph.D. [address] [place] [address] documented as of this encounter Visit Diagnoses Diagnosis Hypermobility Joint- Primary Klinefelter's Syndrome (HCC) Femoral Acetabular Impingement (MARLENI) Hip Left documented in this encounter Additional Health Concerns Assessment Noted Time PHQ-9 Depression Total Score: 5 07/07/19 24 9:17 PM CDT documented as of this encounter Care Teams Meat Press Operator Relationship Specialty Start Date End Date Elsewhere, Pcp PCP - General Internal Medicine 05/22/18 documented as of this encounter
--- OUTSIDE RECORDS SUMMARY | 2024-05-17 19:32 | XMS_ITS | Encounter Summary ---
Author Organization [facility] Address [address] [place] [address]. [place] [address] Care Team Providers Care Story Analyst Name Role Phone Kei Eugene MD Unavailable [phone] Eliana Guerra MD Primary Care Provider [phone] Eliana Guerra MD Unavailable [phone] Eliana Guerra MD Unavailable [phone] Unavailable Unavailable Jody Obregon [facility] Unavailable [phone] Encounter Details Date Type Department Care Team (Late st Contact Info) Description 03/26/2024 Home Infusion [facility] [address] [place] [phone] Anastacia Rodriguez, RD Weight loss (Primary Dx) Social History Tobacco Use Types Packs/Day Years Used Date Smoking Tobacco: Never Smokeless Tobacco: Never Alcohol Use Standard Drinks/Week Comments Yes 0 (1 standard drink = 0.6 oz pur e alcohol) few times a week PHQ-2 Answer Date Recorded PHQ-2 Score 0 02/09/2024 Food Insecurity Answer Date Recorded Within the past 12 months, d id you worry that your food would run out before you got money to buy more? Yes 03/03/2024 Within the past 12 months, d id the food you bought just not last and you didn t have money to get more? No 03/03/2024 Housing Stability Answer Date Recorded Do you have housing? (Housin g is defined as stable permanent housing and does not include staying ouside in a car, in a tent, in an abandoned building, in an overnight long term, or couch-surfing.) Yes 03/03/2024 Are you worried about losing your housing? No 03/03/2024 Financial Resource Strain Answer Date R ecorded Within the past 12 months, h ave you or your family members you live with been unable to get utilities (heat, electricity) when it was really needed? No 03/03/2024 Transportation Needs Answer Date Record ed Within the past 12 months, h as lack of transportation kept you from medical appointments, getting your medicines, non-medical meetings or appointments, work, or from getting things that you need? No 03/03/2024 Interpersonal Safety Answer Date Record ed Do you feel physically and e motionally safe where you currently live? Yes 03/05/2024 Within the past 12 months, h ave you been hit, slapped, kicked or otherwise physically hurt by someone? No 03/05/2024 Within the past 12 months, h ave you been humiliated or emotionally abused in other ways by your partner or ex-partner? 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 Gender Identity Not on file Sexual Orientation Not on file documented as of this encounter Progress Notes * Anastacia Rodriguez, RD - 03/26/2024 8:49 AM CST [facility] Nutrition Follow up Anthropometrics/Weight Goals Height: 1.88 m (6' 2.02) Weight: 65.7 kg (144 lb 14.4 oz) IBW Male (kg): 82.24 BMI (kg): 17.97 FHI Dosing Weight: 64.3 kg (141 lb 12.1 oz) Weight history / comments:: 143 lbs per pt on home scale Current Nutrition Orders Oral Diet: low fiber per pt-eating yogurt, bread, butter, salami-trying to eat 500-1000kcals/day per pt Enteral Nutrition Orders Enteral Formula: Fanattac Standard 1.4 Rate/Frequency: 70ml/hr--up to 5 cartons/day Water Flushes: 120ml q 3 hours Enteral Nutrition Provides: 2275 (35kcal/kg), 100gm protein (1.5gm/kg), 1170ml free water + flushes Implementation Intervention: Received message from field RN: Pt can't advance his TF past 60 mL/hr without gettingheartburn and nausea. He is wondering if there is a different type of formula he can try. [facility] RD spoke with pt. He reports he is having surgery April 11 and hoping to be able to cycle his feeds prior to that. He is having trouble advancing rate. Discussed a formula change for improved fiber blend and less overall fiber in diet to prevent nausea/reflux Plan Follow up/Recommendations: Change formula to [employer] 1.4 for improved tolerance so pt can cycle feeds prior to surgery April [address], [facility], [facility] Dietitian RETE MIXING PLANT LABORER documented in this encounter Plan of Treatment Scheduled Procedures Name Priority Associated Diagnoses Date/Ti me SURGICAL EXTRACTION, TOOTH Chronic pericoronitis documented as of this encounter Visit Diagnoses Diagnosis Weight loss- Primary Loss of weight documented in this encounter Care Teams Story Analyst Relationship Specialty Start Date End Date Eliana Guerra MD [address] [place] [address] PCP - General Family Medicine 03/04/24 Kei Eugene MD [address] [place] [address] Assigned Musculoskeletal Provider 03/01/24 Eliana Guerra MD [facility] [address] [place] [address] Home Infusion Following Provider Family Medicine 03/11/24 Eliana Guerra MD [facility] [address] [place] [address] Home Infusion Following Provider Family Medicine 03/14/[address] [facility] Registered Dietitian Dietitian 03/14/24 Jody Obregon APRN HUMAN RESOURCES OFFICER [facility] [address] [place] [address] Home Infusion Following Provider 03/20/24 04/04/24 documented as of this encounter
--- OUTSIDE RECORDS SUMMARY | 2024-05-17 19:32 | XMS_ITS | Patient Health Record ---
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 Problem 93498152 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 Plan Of Treatment Pending Test Test Name Order Date C-Reactive Protein (CRP) (CRP) 8 Insurance Providers Payer Name Payer Address Payer Phone Subscriber Number Group Number Insured Name Patient Relationship to Insured Coverage Start Date Coverage End Date BLUE PLUS PMAP-20 19 [address] [address] [place] [address] [id number] [facility] Paramjit Boyce Self - patient is the insured 9 Medical (General) History Medical History History ICD Code Syndromes/anomalies: Connective tissue d isorder Other: Pectus excavatum, Acquired pectus carinatum Surgical History Surgery Date(Month/Year) Daja procedure for pectus excavatum 10/08 10/25
--- OUTSIDE RECORDS SUMMARY | 2024-05-17 19:32 | XMS_ITS | Encounter Summary ---
Author Organization [facility] Address [address] [place] [address]. [place] [address] Care Team Providers Care Supply Clerk Name Role Phone Kei Eugene MD Unavailable [phone] Eliana Guerra MD Primary Care Provider [phone] Eliana Guerra MD Unavailable [phone] Eliana Guerra MD Unavailable [phone] Unavailable Unavailable Jody Obregon [facility] Unavailable [phone] Encounter Details Date Type Department Care Team (Late st Contact Info) Description 03/19/2024 Home Infusion [facility] [address] [place] [phone] Anastacia Rodriguez, RD Social History Tobacco Use Types Packs/Day Years [...] in an abandoned building, in an overnight halfway, or couch-surfing.) Yes 03/03/2024 Are you worried [...] on file 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 Gender Identity Not on file Sexual Orientation Not on file documented as of this encounter Last Filed Vital Signs Vital Sign Reading Time Taken Comments Blood Pressure - - Pulse - - Temperature - - Respiratory Rate - - Oxygen Saturation - - Inhaled Oxygen Concentration - - Weight 65.7 kg (144 lb 14.4 oz) 025 10:51 AM MEAT STRINGER Height - - Body Mass Index 18.6 03/15/2024 10:55 AM MEAT STRINGER documented in this encounter Progress Notes * Anastacia Rodriguez, RD - 03/19/2024 10:50 AM CST [facility] Nutrion Follow up Anthropometrics/Weight Goals Height: 1.88 m (6' 2.02) Weight: 65.7 kg (144 lb 14.4 oz) IBW Male (kg): 82.24 BMI (kg): 17.97 FHI Dosing Weight: 64.3 kg (141 lb 12.1 oz) Weight history / comments:: 03/19/24: 144.9 lbs home scale today Current Nutrition Orders Oral Diet: NPO Enteral Nutrition Orders Enteral Formula: Jevity 1.5 Rate/Frequency: 60ml/hr Water Flushes: 120ml q 3 hours Enteral Nutrition Provides: 2160 kcals, 91 g PRO, 1094 ml free H20, 310 g CHO, and 30 g fiber daily. FWF: 120 ml q 3h Implementation Intervention: Spoke with pt today for f/up. He is still not feeling great after tube placement-still experiencing pain. Stools were formed now more loose. Rate at 75ml/hr as pt is wanting to cycle feeds. Discussed trialing a different formula with a different fiber blend or taking fiber away short term due to taking pain medication. Fiber can also delay gastric emptying. Pt will continue with current formula for now but will reach out to [facility] later this week if he would like to make a change. Plan Follow up/Recommendations: Pt to touch base with [facility] later this week to discuss possible formulachange Anastacia Rodriguez RD, [facility], [facility] Infusion Dietitian STRINGER documented in this encounter Plan of Treatment Scheduled Procedures Name Priority Associated Diagnoses Date/Ti me SURGICAL EXTRACTION, TOOTH Chronic pericoronitis documented as of this encounter Visit Diagnoses Not on filedocumented in this encounter Care Teams Supply Clerk Relationship Specialty Start Date End Date Eliana Guerra MD [facility] [address] [place] [address] PCP - General Family Medicine 03/04/24 Kei Eugene MD [facility] [address] [place] [address] Assigned Musculoskeletal Provider 03/01/24 Eliana Guerra MD [facility] [address] [place] [address] Home Infusion Following Provider Family Medicine 03/11/24 Eliana Guerra MD [facility] [address] [place] [address] Home Infusion Following Provider Family Medicine 03/14/[address] [facility] Registered Dietitian Dietitian 03/14/24 Jody Obregon APRN HR REPRESENTATIVE [facility] [address] [place] [address] Home Infusion Following Provider 03/20/24 04/04/24 documented as of this encounter
--- OUTSIDE RECORDS SUMMARY | 2024-05-17 19:32 | XMS_ITS | Clinical Summary ---
Author Organization [employer] [facility] Address [address] [place] [id number] Care Team Providers Care Shore Working Supervisor Name Role Phone Eliana Guerra MD Primary Care Provider Allergies No known active allergies Medications tadalafiL (CIALIS) 5 mg tablet Take 5 mg by mouth. 06/20/19 22 Active tamoxifen (NOLVADEX) 20 mg tablet Take 20 mg by mouth once daily. 06/07/19 24 Active Diaper,Brief, Adult,DisposableIn dications:Nocturna l enuresis For home use. 90 Each 12/20/19 24 Active metoclopramide (REGLAN) 5 mg tabletIndications: Early satiety,Delayed gastric emptying Take 1 Tablet (5 mg) by mouth three times daily before meals. 270 Tablet 03/01/19 25 Active ondansetron (ZOFRAN ODT) [address] 4 mg on the tongue every 8 hours if needed for Nausea/Vomitin g. 12/02/19 24 Active polyethylene glycol (MIRALAX; GLYCOLAX) 17 g per packet packet Mix 17 g in liquid then take by mouth once daily if needed. 03/14/19 25 Active famotidine (PEPCID) 40 mg tabletIndications: Heart burn Take 1 Tablet (40 mg) by mouth once daily. 90 Tablet 1 03/15/19 25 Active rx cephalexin 250 mg/5 mL suspension (ED DC MED)Indications:Dy suria,Chills,Tachy cardia Administer 10 mL (500 mg) via G-tube three times daily for 7 days. 210 mL 05/16/19 25 025 Active FLUoxetine 20 mg/5 mL solutionIndication s:Anxiety and depression Administer 5 mL (20 mg) via G-tube once daily in the morning. 120 mL 2 05/16/19 25 Active FLUoxetine (PROzac) 10 mg capsuleIndications :Anxiety and depression Take 1 Capsule (10 mg) by mouth once daily in the morning. Start with 1 capsule daily x 1 week, if tolerating, increase to 20 mg capsule. 7 Capsule 04/18/19 25 025 Discontin ued(*Med complete/ Regimen complete/ Level of care change) FLUoxetine (PROZAC) 20 mg capsuleIndications :Anxiety and depression Take 1 Capsule (20 mg) by mouth once daily in the morning. 90 Capsule 04/18/19 25 025 Discontin ued(*Medi cation adjustmen t) cephalexin 500 mg capsuleIndications :urinary tract infection Take 1 Capsule (500 mg) by mouth three times daily for 7 days. 21 Capsule 05/16/19 25 025 Discontin ued(*Medi cation adjustmen t) rx cephalexin 250 mg/5 mL suspension (ED DC MED)Indications:Dy suria,Chills,Tachy cardia Take 10 mL (500 mg) by mouth three times daily for 7 days. 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 Chronic back pain 04/21/2023 Klinefelter syndrome 07/25/2019 Exertional headache 04/18/2018 Cell chromosome examination abnormal 03/23/2018 Congenital pes planus 03/23/2018 Atrophy of testis 03/23/2018 Tall stature 03/23/2018 Connective tissue disorder 01/04/2018 Underweight in adolescence 01/04/2018 Scoliosis 01/04/2018 Congenital pectus excavatum 12/29/2013 Encounters Date Type Department Care Team Description 05/17/2024 Nurse Triage [facility] [address] [facility] [place] [address] Eliana Guerra MD Urinary Problem (Uti symptoms on antibiotics) 05/17/2024 Telephone [facility] [address] [place] [address] Eliana Guerra MD Procedure 05/17/2024 Telephone [facility] [address] [place] [address] Eliana Guerra MD Outside Order (plan of care) 05/16/2024 Orders Only [facility] [address] [place] [address] Eliana Guerra MD 1 scan: (1-Ord) NFLD-EKG-05/15/24 05/15/2024 3:00 PM CDT Ancillary Procedure [facility] [address] [place] [address] Arrived 05/15/2024 9:10 AM CDT Office Visit [facility] [address] [place] [address] Eliana Guerra MD Medication Management 05/15/2024 Travel 05/08/2024 Telephone [facility] [address] [place] [address] Eliana Guerra MD Follow Up (Faxed orders.) 04/26/2024 11:00 AM CDT Office Visit [address] [address] Una Apodaca PsyD, EDSON Individual Therapy 04/26/2024 Travel 04/20/2024 Telephone [facility] [address] [place] [phone] Jose Pinto PA Screening (Spine Center) 04/19/2024 2:00 PM CDT Office Visit [facility] [address] [facility] [place] [phone] Jose Pinto PA Follow Up (Bilateral Knee ) 04/19/2024 Medical Messaging [facility] [address] [address] [place] [address] Jose Pinto PA 04/19/2024 Travel 04/19/2024 Telephone [facility] [address] [place] [address] Eliana Guerra MD Referral (referral to [facility]) 04/17/2024 1:30 PM CDT Office Visit [address] [address] Una Apodaca PsyD, LP Individual Therapy 04/17/2024 Telephone [facility] [address] [place] [address] Eliana Guerra MD Referral ([facility] ) 04/17/2024 Travel 04/16/2024 Refill [facility] [address] [place] [address] Eliana Guerra MD Refill Request (Fluoxetine 10 mg capsules) 04/12/2024 12:15 PM ICE CARVER Ancillary Procedure [facility] [address] [place] [address] 04/12/2024 11:15 AM ICE CARVER Office Visit [address] [address] Eliana Guerra MD Pre-[facility] Ex[facility] 04/12/2024 Travel 04/09/[address] [address] Una Apodaca PsyD, LP Late Cancel Appointment (04/10/24 @ 9:30 AM /) 03/29/2024 11:00 AM ICE CARVER Office Visit [address] [address] Una Apodaca PsyD, EDSON Individual Therapy 03/29/2024 Travel 03/27/2024 8:45 AM ICE CARVER Office Visit [address] [place] [address] Eliana Guerra MD Pre-Op Exam (04/11/2024, [facility], GUILLERMO) 03/27/2024 Travel 03/15/2024 12:45 PM ICE CARVER Office Visit [facility] [address] [place] [address] Eliana Guerra MD Hospital F/U ([facility] 03/14/24) 03/15/2024 Travel 03/06/2024 Transcribe Orders [facility] [address] [place] [address] Arie Carrion MD 03/06/2024 Telephone [facility] [address] [place] [address] Eliana Guerra MD 03/01/2024 1:10 PM ICE CARVER Office Visit [facility] [address] [place] [address] Eliana Guerra MD Gi Problem; Urinary Problem 02/29/2024 12:00 PM ICE CARVER Office Visit [address] [phone] Una Apodaca PsyD, LP Individual Therapy 02/29/2024 Travel 02/24/2024 12:45 PM ICE CARVER Office Visit [address] [address] Una Apodaca PsyD, LP Individual Therapy 02/24/2024 Travel from Last 3 Months Immunizations Immunization Administration Dates Next Due COVID-19 VACCINE SPIKEVAX [...] Answer Date Recorded PHQ-2 TOTAL SCORE 3 05/15/2024 Social Connections Answer Date Recorded Do you often feel lonely or isolated from those around you? 4 05/15/2024 Financial Resource Strain Answer Date R ecorded Difficulty of Paying Living Expenses 3 05/15/2024 Difficulty of Paying Living Expenses Not on file 05/15/2024 Food Insecurity Answer Date Recorded Do you worry your food will run out before you are able to buy more? 1 05/15/2024 Transportation Needs Answer Date Record ed Does lack of transportation keep you from medica l appointments? 2 05/15/2024 Does lack of transportation keep you from work, meetings or getting things that you need? 2 05/15/2024 Housing Stability Answer Date Recorded What is your housing situation today? 1 05/15/2024 Utilities Answer Date Recorded Do you have trouble paying f or utilities (for example, heat, electricity, water, phone)? 1 05/15/2024 Sex and Gender Information Value Date Recorded Sex Assigned at Not on file Legal Sex Male 5:44 AM ICE CARVER Gender Identity Not on file Sexual Orientation Not on file Occupation Industry Job Start Date Job End Date Student Not on file Not on file Not on file Obstetrics History Last Filed Vital Signs Vital Sign Reading Time Taken Comments Blood Pressure 132/81 05/15/2024 9:11 AM CDT Pulse 120 05/15/2024 9:41 AM CDT Temperature 36.7 C (98 F) 03/27/2024 8:55 AM ICE CARVER Respiratory Rate 18 11/25/2023 10:50 AM CDT Oxygen Saturation 97% 05/15/2024 9:11 AM CDT Inhaled Oxygen Concentration - - Weight 68 kg (150 lb) 04/12/2024 11:25 AM ICE CARVER Height 190 cm (6' 2.8) 04/12/2024 11:25 AM ICE CARVER Body Mass Index 18.85 04/12/2024 11:25 AM ICE CARVER Plan of Treatment Upcoming Encounters Date Type Department Care Team (Late st Contact Info) Description 05/18/2024 2:45 PM CDT Office Visit [facility] [address] [place] [address] Gracie Tobar MD [address] [facility] [address] [place] [address] 05/21/2024 12:00 PM CDT Office Visit [facility] [address] [place] [address] Una Apodaca, Bradley, LP [address] [place] [address] 06/04/2024 8:00 AM CDT Office Visit [address] [phone] Una Apodaca M, PsyD, LP [address] [place] [address] 06/06/2024 8:45 AM CDT Office Visit [address] [phone] Una Apodaca M, PsyD, LP [address] [place] [address] 06/14/2024 9:35 AM CDT Office Visit [facility] [address] [place] [address] Eliana Guerra MD [address] [place] [address] 07/10/2024 1:00 PM CDT Office Visit [facility] [address] [phone] Jose Pinto PA [address] [place] [address] 07/19/2024 2:45 PM CDT Office Visit [facility] [address] 1 [place] [phone] Marty Arndt MD [address] [place] [address] 08/21/2024 3:00 PM CDT Office Visit [facility] [address] [place] [phone] Antione Haq MD [address] [address] Health Maintenance Due Date Last Done Comments COVID-19 vaccine series (6 - Mixed Product risk season) 2024 11/02/2023, 04/16/2022, 02/18/2021, Additional history exists BMI (ht and wt on same day) for age 18+ 04/12/2025 04/12/2024, 03/27/2024, 11/02/2023, Additional history exists Depression screening for age 12+ 05/17/2025 05/17/2024, 05/17/2024, 05/17/2024, Additional history exists Tetanus booster 11/19/2032 11/19/2022, 09/22/2012 Pneumococcal series for age 6-49 Aged Out 04/21/2001, 01/12/2001, 2000 No longer eligible based on patient's age to complete this topic HIV for age 15-65 Completed 08/18/2020 Hepatitis C screening for age 18-79 Completed 08/18/2020 HPV series for age 9-26 Completed 10/29/19 21, 03/07/2020, 10/19/2019 Tdap Completed 11/19/2022, 09/22/2012 Influenza Vaccine Completed 11/02/2023, , 04/16/2022, Additional history exists Procedures Procedure Name Priority Date/Time Associated Diagnosis Comments EKG 12 LEAD Routine 05/16/2024 2:54 PM CDT Tachycardia TX READING EKG - NO CHARGE, COMP ONLY Routine 05/16/2024 2:[address] CHEST PE STUDY STAT 05/15/2024 11: 07 AM CDT Chills Tachycardia CBC WITH AUTO DIFFERENTIAL STAT 05/15/2024 10:27 AM CDT Chills Tachycardia COMP METABOLIC PANEL STAT 05/15/2024 10:27 AM CDT Chills Tachycardia CBC WITH AUTO DIFFERENTIAL STAT 05/15/2024 10:27 AM CDT Chills Tachycardia URINALYSIS MACROSCOPIC - [facility] ONLY POC DIP ([facility]) Routine 05/15/2024 10:25 AM CDT Dysuria Incomplete bladder emptying Chills URINALYSIS MICROSCOPIC Routine 10:23 AM CDT Dysuria Incomplete bladder emptying Chills XR ABDOMEN 1 VIEW Routine 04/12/2024 12: 17 PM ICE CARVER Gastrojejunal (GJ) tube in place (HC) BASIC METABOLIC PANEL Routine 03/27/2024 9:25 AM ICE CARVER Delayed gastric emptying Encounter for gastrojejunal (GJ) tube placement MAGNESIUM Routine 03/27/2024 9:25 AM ICE CARVER Delayed gastric emptying Encounter for gastrojejunal (GJ) tube placement PHOSPHORUS Routine 03/27/2024 9:25 AM ICE CARVER Delayed gastric emptying Encounter for gastrojejunal (GJ) tube placement AMB CONSULT TO GASTROENTEROLOGY Routine 03/03/2024 7:02 PM ICE CARVER Early satiety Delayed gastric emptying COMP METABOLIC PANEL Routine 03/01/2024 2:57 PM ICE CARVER Early satiety Delayed gastric emptying LIPASE Routine 03/01/2024 2:57 PM ICE CARVER Early satiety Delayed gastric emptying CBC WITH AUTO DIFFERENTIAL Routine 03/01/2024 2:57 PM ICE CARVER Early satiety Delayed gastric emptying PHOSPHORUS Routine 03/01/2024 2:57 PM ICE CARVER Early satiety Delayed gastric emptying MAGNESIUM Routine 03/01/2024 2:57 PM ICE CARVER Early satiety Delayed gastric emptying URINALYSIS MACROSCOPIC - [facility] ONLY POC DIP ([facility]) Routine 03/01/2024 2:23 PM ICE CARVER Gross hematuria URINALYSIS MICROSCOPIC Routine 2:18 PM ICE CARVER Gross hematuria URINE CULTURE Routine 03/01/2024 2:18 PM ICE CARVER Gross hematuria EXPOSURE (BBF) RAPID HIV Routine 08/18/2020 8:10 AM CDT Employee exposure to blood EXPOSURE (BBF) ANTI HCV Routine 08/19/19 8:10 AM CDT Employee exposure to blood from Last 3 Months or Most Recently Relevant to Health Maintenance Results * EKG 12 LEAD (05/16/2024 2:54 PM CDT) Eliana Guerra MD EKG ORD Final Resul t * TX READING EKG - NO CHARGE, COMP ONLY (05/16/2024 2:53 PM CDT) Eliana Guerra MD PB - PROVIDER READINGS Beatriz l Result * CT CHEST PE STUDY (05/15/2024 11:07 AM CDT) Anatomical Region Laterality Modality CHEST, THORAX, HEART Computed To mography 05/15/2024 11:3 4 AM CDT Impressions 05/15/2024 11:34 AM CDT No evidence of pulmonary embolism or other acute cardiopulmonary process. Incidental findings as above. Please note that all CT scans at this facility use dose modulation, iterative reconstruction, and/or weight-based dosing when appropriate to reduce radiation dose to as low as reasonably achievable. Dictated by Kei Nair MD @ 05/15/2024 11:34:47 AM (Electronically Signed) Narrative 05/15/2024 11:34 AM CDT For Patients: As a result of the Century Cures Act, medical imaging exams and procedure reports are released immediately into your electronic medical record. You may view this report before your referring provider. If you have questions, please contact your health care provider. INDICATION: R68.83 Chills ICD-10-CM Chills R00.0 Tachycardia ICD-10-CM Tachycardia ChillsPulmonary embolism (PE) suspected, high prob - immobilized from surgery, tachycardic on exam, EKG shows pulmonary disease pattern. (Sic) COMPARISON: None available. TECHNIQUE: CT pulmonary angiography with 100 cc of Omnipaque 350 intravenous contrast. Reconstructed multiplanar MIP series were done. Please note that all CT scans at this facility use dose modulation, iterative reconstruction, and/or weight-based dosing when appropriate to reduce radiation dose to as low as reasonably achievable. FINDINGS: THORAX Pulmonary Arterial Vasculature: Opacification of the pulmonary arterial tree is adequate for assessment of pulmonary embolism. No intraluminal pulmonary arterial filling defect is identified to indicate a pulmonary embolism. Visualized Lower Neck: No lower cervical adenopathy. Lungs: No significant pulmonary findings. Small benign calcified anterior segment left lower lobe pulmonary granuloma with associated ipsilateral left hilar calcified lymph nodes indicating old granulomatous disease. Pleura: No pleural effusion. No pneumothorax. Mediastinum: Thoracic aorta and pulmonary trunk are normal in caliber. Heart and pericardium are without significant findings. Trachea and esophagus are normal in appearance. No mediastinal lymphadenopathy. ABDOMEN Visualized Upper Abdomen: Percutaneous gastrojejunostomy tube within the lumen of the stomach and proximal small bowel. SKELETON AND BODY WALL No acute or significant incidental findings. Bilateral symmetrical gynecomastia. Pectus excavatum is noted incidentally Procedure Note Kei Nair MD - 05/15/2024 For Patients: As a result of the Century Cures Act, medical imagingexams and procedure reports are released immediately into your electronicmedical record. You may view this report before your referring provider.If you have questions, please contact your health care provider. INDICATION: R68.83 Chills ICD-10-CM Chills R00.0 Tachycardia ICD-10-CM Tachycardia ChillsPulmonary embolism (PE) suspected, high prob - immobilized fromsurgery, tachycardic on exam, EKG shows pulmonary disease pattern. (Sic) COMPARISON: None available. TECHNIQUE: CT pulmonary angiography with 100 cc of Omnipaque 350 intravenouscontrast. Reconstructed multiplanar MIP series were done. Please note that all CT scans at this facility use dose modulation,iterative reconstruction, and/or weight-based dosing when appropriate toreduce radiation dose to as low as reasonably achievable. FINDINGS: THORAX Pulmonary Arterial Vasculature: Opacification of the pulmonary arterialtree is adequate for assessment of pulmonary embolism. No intraluminalpulmonary arterial filling defect is identified to indicate a pulmonaryembolism. Visualized Lower Neck: No lower cervical adenopathy. Lungs: No significant pulmonary findings. Small benign calcified anterior segmentleft lower lobe pulmonary granuloma with associated ipsilateral left hilarcalcified lymph nodes indicating old granulomatous disease. Pleura: No pleural effusion. No pneumothorax. Mediastinum: Thoracic aorta and pulmonary trunk are normal in caliber. Heart andpericardium are without significant findings. Trachea and esophagus arenormal in appearance. No mediastinal lymphadenopathy. ABDOMEN Visualized Upper Abdomen: Percutaneous gastrojejunostomy tube within thelumen of the stomach and proximal small bowel. SKELETON AND BODY WALL No acute or significant incidental findings. Bilateral symmetricalgynecomastia. Pectus excavatum is noted incidentally IMPRESSION: No evidence of pulmonary embolism or other acute cardiopulmonary process.Incidental findings as above. Please note that all CT scans at this facility use dose modulation,iterative reconstruction, and/or weight-based dosing when appropriate toreduce radiation dose to as low as reasonably achievable. Dictated by Kei Nair MD @ 05/15/2024 11:34:47 AM (Electronically Signed) us Eliana Guerra MD CT Final Resul t * (ABNORMAL) CBC WITH AUTO DIFFERENTIAL (05/15/2024 10:27 AM CDT) WHITE BLOOD COUNT 16.5(H) 4.5 - 11.0 thou/cu mm 05/15/2024 12:56 PM [facility] RED BLOOD COUNT 5.29 4.30 - 5.90 mil/cu mm 05/15/2024 12:56 PM [facility] HEMOGLOBIN 15.7 13.5 - 17.5 g/dL 05/15/2024 12:56 PM [facility] HEMATOCRIT 46.9 37.0 - 53.0 % 05/15/2024 12:56 PM [facility] MCV 89 80 - 100 fL 05/15/2024 12:56 PM [facility] MCH 29.7 26.0 - 34.0 pg 05/15/2024 12:56 PM [facility] MCHC 33.5 32.0 - 36.0 g/dL 05/15/2024 12:56 PM [facility] RDW 13.6 11.5 - 15.5 % 05/15/2024 12:56 PM [facility] PLATELET COUNT 243 140 - 440 thou/cu mm 05/15/2024 12:56 PM [facility] MPV 9.8 6.5 - 11.0 fL 05/15/2024 12:56 PM [facility] % NEUT 84.4 % 05/15/2024 12:56 PM [facility] % LYMPH 8.2 % 05/15/2024 12:56 PM [facility] % MONO 6.4 % 05/15/2024 12:56 PM [facility] % EOS 0.8 % 05/15/2024 12:56 PM [facility] % BASO 0.2 % 05/15/2024 12:56 PM [facility] ABSOLUTE NEUTROPHILS 13.9(H) 1.7 - 7.0 thou/cu mm 05/15/2024 12:56 PM [facility] ABSOLUTE LYMPHOCYTES 1.4 0.9 - 2.9 thou/cu mm 05/15/2024 12:56 PM [facility] ABSOLUTE MONOCYTES 1.1(H) <0.9 thou/cu mm 05/15/2024 12:56 PM [facility] ABSOLUTE EOSINOPHILS 0.1 <0.5 thou/cu mm 05/15/2024 12:56 PM [facility] ABSOLUTE BASOPHILS 0.0 <0.3 thou/cu mm 05/15/2024 12:56 PM [facility] Blood BLOOD SPECIMEN / Unknown [facility] Collect / Unknown 05/15/2024 10:27 AM CDT 05/15/2024 10:27 AM [facility] us Eliana Guerra MD HEMATOLOGY Final Resul t [facility] [address] [place] [address] * (ABNORMAL) STAT Comp Metabolic Panel CMP (05/15/2024 10:27 AM [facility]) Only the most recent of2 resultswithin the time period is included. SODIUM 141 136 - 145 mmol/L 05/15/2024 1:07 PM [facility] POTASSIUM 4.4 3.5 - 5.1 mmol/L 05/15/2024 1:07 PM [facility] CHLORIDE 102 98 - 107 mmol/L 05/15/2024 1:07 PM [facility] CO2,TOTAL 29 22 - 29 mmol/L 05/15/2024 1:07 PM [facility] ANION GAP 10 5 - 18 05/15/2024 1:07 PM [facility] GLUCOSE 110(H) 70 - 99 mg/dL 05/15/2024 1:07 PM [facility] CALCIUM 10.2 8.8 - 10.4 mg/dL 05/15/2024 1:07 PM [facility] Comment: Reference ranges for this test were updated on 12/13/2023 to reflect our healthy population more accurately. Reference range changes are not retroactively applied to results, but previous results using the same methodology can be interpreted in the context of the new reference range. BUN 12 6 - 20 mg/dL 05/15/2024 1:07 PM [facility] CREATININE 1.05 0.70 - 1.20 mg/dL 05/15/2024 1:07 PM [facility] BUN/CREAT RATIO 11 10 - 20 1:07 PM [facility] eGFR >90 >90 mL/min/1. 73m2 05/15/2024 1:07 PM [facility] Comment:As of 2021, eG FR is calculated by the CKD-EPI creatinine equation without race adjustment. eGFR can be influenced by muscle mass, exercise, and diet. The reported eGFR is an estimation only and is only applicable if the renal function is stable. ALBUMIN 5.0(H) 4.0 - 4.9 g/dL 05/15/2024 1:07 PM [facility] PROTEIN,TOTAL 7.8 6.0 - 8.0 g/dL 05/15/2024 1:07 PM CDT [facility] BILIRUBIN,TOTAL 0.9 0.0 - 1.2 mg/dL 05/15/2024 1:07 PM CDT [facility] ALK PHOSPHATASE 88 40 - 129 IU/L 05/15/2024 1:07 PM CDT [facility] ALT (SGPT) 32 10 - 50 IU/L 05/15/2024 1:07 PM CDT [facility] AST (SGOT) 27 10 - 50 IU/L 05/15/2024 1:07 PM T [facility] Blood BLOOD SPECIMEN / Unknown [facility] Collect / Unknown 05/15/2024 10:27 AM CDT 05/15/2024 10:27 AM CDT us Eliana Guerra MD CHEMISTRY Final Resul t [facility] [address] [place] [address] * (ABNORMAL) POCT Urinalysis Dipstick Only [[id number]] (05/15/2024 10:25 AM CDT) Only the most recent of2 resultswithin the time period is included. PH 8.5(H) 5.0 - 8.0 [facility] SPECIFIC GRAVITY 1.020 1.001 - 1.035 [facility] GLUCOSE NEGATIVE NEGATIVE [facility] BILIRUBIN 1+(A) NEGATIVE [facility] Comment: A false positive may be caused by the drug Lodine. For any presumptive positive bilirubin, consider confirmation by serum bilirubin if clinically indicated. KETONES NEGATIVE NEGATIVE [facility] OCCULT BLOOD TRACE(A) NEGATIVE [facility] PROTEIN 2+(A) NEGATIVE [facility] NITRITE NEGATIVE NEGATIVE [facility] LEUKOCYTE ESTERASE 1+(A) NEGATIVE [facility] Urine URINE SPECIMEN / Unknown 05/15/2024 10:25 AM CDT 05/15/2024 10:26 AM CDT Eliana Guerra MD URINE Final Resul t Performing Organization Address [facility] Co de Phone Number [facility] [address] [place] [address], [place] [phone] [facility] [address] [place] [address] * (ABNORMAL) URINALYSIS MICROSCOPIC [19869.1] - routine (05/15/2024 10:23 AM CDT) Only the most recent of2 resultswithin the time period is included. RBC 0-2 0-2, None Seen /HPF 05/15/2024 3:44 PM CDT [facility] WBC >100(A) 0-2, 3-5, None Seen /HPF 05/15/2024 3:44 PM CDT [facility] BACTERIA None Seen None Seen, Rare, Few Bacteria/ HPF 05/15/2024 3:44 PM CDT [facility] EPITHELIAL CELLS None Seen None Seen, Few Epi/HPF 05/15/2024 3:44 PM CDT [facility] HYALINE CASTS 3-5 0-2, 3-5 /LPF 05/15/2024 3:44 PM CDT [facility] Urine URINE SPECIMEN / Unknown Non-Blood / Unknown 05/15/2024 10:23 AM CDT 05/15/2024 10:23 AM CDT Eliana Guerra MD URINE Final Resul t Performing Organization Address City/[facility]/ZIP Co de Phone Number [facility] [address] [place] [address], [place] * XR ABDOMEN 1 VIEW (04/12/2024 12:17 PM ICE CARVER) Anatomical Region Laterality Modality Abdomen Computed Radiogr aphy 04/12/2024 2:10 PM ICE CARVER Narrative 04/12/2024 2:10 PM ICE CARVER For Patients: As a result of the Cures Act, medical imaging exams and procedure reports are released immediately into your electronic medical record. You may view this report before your referring provider. If you have questions, please contact your health care provider. Indication: Gastrojejunal (GJ) tube in place Technique: Abdomen 1 view. Comparison: None. Findings: GJ tube is present. Moderate stool in the colon. No dilated small bowel loops. No renal calculi. Osseous structures normal. Impression: Constipation may be present. GJ tube appears to be in good position. Dictated by Gaurav Saldaña MD @ 04/12/2024 2:10:16 PM (Electronically Signed) Procedure Note Gaurav Saldaña MD - 04/12/2024 For Patients: As a result of the Cures Act, medical imagingexams and procedure reports are released immediately into your electronicmedical record. You may view this report before your referring provider.If you have questions, please contact your health care provider. Indication: Gastrojejunal (GJ) tube in place Technique: Abdomen 1 view. Comparison: None. Findings: GJ tube is present. Moderate stool in the colon. No dilated small bowelloops. No renal calculi. Osseous structures normal. Impression: Constipation may be present. GJ tube appears to be in good position. Dictated by Gaurav Saldaña MD @ 04/12/2024 2:10:16 PM (Electronically Signed) Eliana Guerra MD GENERAL IMAGING Final Resul t * PHOSPHORUS (03/27/2024 9:25 AM ICE CARVER) Only the most recent of2 resultswithin the time period is included. PHOSPHATE ( PHOSPHORUS) 3.6 2.5 - 4.5 mg/dL [facility] Blood BLOOD SPECIMEN / Unknown 03/27/2024 9:25 AM ICE CARVER 03/27/2024 9:26 AM ICE CARVER Eliana Guerra MD CHEMISTRY Final Resul t Performing Organization Address City/[facility]/ZIP Co de Phone Number [facility] [address] [place] [address], [facility] [address] [place] [address] * MAGNESIUM (03/27/2024 9:25 AM ICE CARVER) Only the most recent of2 resultswithin the time period is included. [facility] MAGNESIUM 2.2 1.5 - 2.5 mg/dL [facility] Blood BLOOD SPECIMEN / Unknown 03/27/2024 9:25 AM ICE CARVER 03/27/2024 9:26 AM ICE CARVER Eliana Guerra MD CHEMISTRY Final Resul t Performing Organization Address [facility] Co de Phone Number [facility] [address] [place] [phone], [facility] [address] [place] [address] * BASIC METABOLIC PANEL (03/27/2024 9:25 AM ICE CARVER) [facility] GLUCOSE 86 65 - 99 mg/dL [facility] Comment: Fasting reference interval UREA NITROGEN (BUN) 16 7 - 25 mg/dL [facility] CREATININE 0.83 0.60 - 1.24 mg/dL [facility] EGFR 126 > OR = 60 mL/min/1. 73m2 [facility] BUN/CREATININE RATIO SEE NOTE: 6 - 22 (calc) [facility] Comment: Not Reported: BUN and Creatinine are within reference range. SODIUM 141 135 - 146 mmol/L [facility] POTASSIUM 4.4 3.5 - 5.3 mmol/L [facility] CHLORIDE 103 98 - 110 mmol/L [facility] CARBON DIOXIDE 27 20 - 32 mmol/L [facility] ELECTROLYTE BALANCE 11 7 - 17 mmol/L (calc) [facility] CALCIUM 10.1 8.6 - 10.3 mg/dL [facility] Blood BLOOD SPECIMEN / Unknown 03/27/2024 9:25 AM ICE CARVER 03/27/2024 9:26 AM ICE CARVER Eliana Guerra MD CHEMISTRY Final Resul t [facility] [address] [place] [address], [facility] [address] [place] [address] * (ABNORMAL) CBC AND DIFFERENTIAL (03/01/2024 2:57 PM ICE CARVER) Pathologist [facility] WHITE BLOOD CELL COUNT 7.3 3.8 - 10.8 Thousand/u L [facility] RED BLOOD CELL COUNT 5.92(H) 4.20 - 5.80 Million/uL [facility] HEMOGLOBIN 17.7(H) 13.2 - 17.1 g/dL [facility] HEMATOCRIT 51.4(H) 38.5 - 50.0 % [facility] MCV 86.8 80.0 - 100.0 fL [facility] MCH 29.9 27.0 - 33.0 pg [facility] MCHC 34.4 32.0 - 36.0 g/dL [facility] Comment: For adults, a slight decrease in the calculated MCHC value (in the range of 30 to 32 g/dL) is most likely not clinically significant; however, it should be interpreted with caution in correlation with other red cell parameters and the patient's clinical condition. RDW 12.4 11.0 - 15.0 % [facility] PLATELET COUNT 221 140 - 400 Thousand/u L [facility] MPV 10.3 7.5 - 12.5 fL [facility] ABSOLUTE NEUTROPHILS 4,979 1,500 - 7,800 cells/uL [facility] ABSOLUTE LYMPHOCYTES 1,657 850 - 3,900 cells/uL [facility] ABSOLUTE MONOCYTES 533 200 - 950 cells/uL [facility] ABSOLUTE EOSINOPHILS 73 15 - 500 cells/uL [facility] ABSOLUTE BASOPHILS 58 0 - 200 cells/uL [facility] NEUTROPHILS 68.2 % [facility] LYMPHOCYTES 22.7 % [facility] MONOCYTES 7.3 % [facility] EOSINOPHILS 1.0 % [facility] BASOPHILS 0.8 % [facility] Blood BLOOD SPECIMEN / Unknown 03/01/2024 2:57 PM ICE CARVER 03/01/2024 2:57 PM ICE CARVER Eliana Guerra MD HEMATOLOGY Final Resul t [facility] [address] [place] [address], [place] [phone] [facility] [address] [place] [address] * LIPASE (03/01/2024 2:57 PM ICE CARVER) Pathologist [facility] LIPASE 26 7 - 60 U/L [facility] Blood BLOOD SPECIMEN / Unknown 03/01/2024 2:57 PM ICE CARVER 03/01/2024 2:57 PM ICE CARVER Eliana Guerra MD CHEMISTRY Final Resul t [facility] [address] [place] [address], [place] [phone] [facility] [address] [place] [address] * URINE CULTURE (03/01/2024 2:18 PM ICE CARVER) Pathologist [facility] CULTURE <10,000 CFU/mL multiple organisms 03/03/2024 9:42 AM ICE CARVER [facility] Urine URINE SPECIMEN / Unknown Non-Blood / Unknown 03/01/2024 2:18 PM ICE CARVER 03/01/2024 2:18 PM ICE CARVER Eliana Guerra MD MICROBIOLOGY Final Resul t Performing Organization Address City/[facility]/ZIP Co de Phone Number [facility] [address] [place] [address], [place] * EXPOSURE (BBF) RAPID HIV (08/18/2020 8:10 AM CDT) SOURCE RAPID HIV SCREEN Non-Reacti ve Non-Reacti ve 08/18/2020 2:42 PM CDT [facility] Blood BLOOD SPECIMEN / Unknown Venipuncture / Unknown 08/18/2020 8:10 AM CDT 08/18/2020 8:11 AM CDT Eliana Guerra MD SEND OUTS Final Resul t Performing Organization Address City/[facility]/ZIP Co de Phone Number [facility] [address] [place] [address], [place] * EXPOSURE (BBF) ANTI HCV (08/18/2020 8:10 AM CDT) Pathologist [facility] HEPATITIS C ANTIBODY Non-React alex Non-React alex 08/18/2020 2:57 PM CDT [facility] Comment:Antibodies to HCV no t detected; does not exclude the possibility of exposure to HCV. Blood BLOOD SPECIMEN / Unknown Venipuncture / Unknown 08/18/2020 8:10 AM CDT 08/18/2020 8:11 AM CDT Eliana Guerra MD SEND OUTS Final Resul t [facility] [address] [place] [address], [place] from Last 3 Months or Most Recently Relevant to Health Maintenance Insurance [address] [place], [place] [address]CARE [facility] Care Teams Shore Working Supervisor Relationship Specialty Start Date End Date Eliana Guerra MD [address] [place] [address] PCP - General Family Practice 10/20/17
--- OUTSIDE RECORDS SUMMARY | 2024-05-17 19:32 | XMS_ITS | Clinical Summary ---
Author Organization [facility] Address [address] [place] [address] Care Team Providers Care Forest Officer Name Role Phone Elsewhere, Pcp Primary Care Provider Unavailabl e Source Comments Patient records contain information from all sites at [facility]. For routine questions regarding patient records, call [phone] during business hours, M-F 8:00 AM - 5:00 PM Central Time. Record requests for emergency care only can be directed to [phone] at any time.[facility] Allergies No known active allergies Medications * [...] (two) times a day. 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 05/14/2024 Orders Only Department of Neurology in [place], [place] [address] [place] [address] Jak Drummond M.D. 2024 Orders Only Department of Physical Medicine and Rehabilitation in [place], [place] [address] [place] [address] Jak Drummond M.D. Hypermobility Joint (Primary Dx); Mobility Limited; Myofascial Pain Syndrome 05/01/2024 Orders Only Department of Orthopedic Surgery in [place], [place] [address] [place] [address] Candida Lucero P.A.-C. 04/10/2024 Clinical Communication Department of Physical Medicine and Rehabilitation in [place], [place] [address] [place] [address] Jak Drummond M.D. 04/09/2024 Orders Only Department of Physical Medicine and Rehabilitation in [place], [place] [address] [place] [phone] Jak Drummond M.D. Hypermobility Joint (Primary Dx); Klinefelter's Syndrome (HCC); Femoral Acetabular Impingement (MARLENI) Hip Left 04/08/2024 Orders Only Department of Physical Medicine and Rehabilitation in [place], [place] [address] [place] [phone] Jak Drummond M.D. Hypermobility Joint (Primary Dx); Klinefelter's Syndrome (HCC); Femoral Acetabular Impingement (MARLENI) Hip Left 04/06/2024 Orders Only Department of Neurology in [place], [place] [address] [place] [phone] Jak Drummond M.D. 03/22/2024 9:30 AM COVER CUTTER Comprehensive Visit Department of Physical Medicine and Rehabilitation in [place], [place] [address] [place] [phone] Jak Drummond M.D. Stanecki, Catherine E, M.S., O.T. Hypermobility Joint (Primary Dx); Kamari Danlos Syndrome Unspecified (HCC) Discharge Disposition: Home or Self Care 03/02/2024 Clinical Communication Department of Urology in [place], [place] [address] [place] [phone] Kate Egan P.A.-C. Outside Doctor's Office Calling 03/01/2024 Orders Only Department of Urology in [place], [place] [address] [place] [phone] Kate Egan P.A.-C. Retention Urinary (Primary Dx) 02/22/2024 8:15 AM [facility] Telemedicine Department of Sports Medicine in [place], [place] [address] [place] [phone] Ahsan Talbert M.D., Ph.D. Pain Hip Right (Primary Dx) from Last 3 Months Family History Medical [...] drink = 0.6 oz pur e alcohol) [facility] Utilities Answer Date Recorded In the past 12 months has e [employer], gas, oil, or water [employer] threatened to shut off services in [...] week 2022 How often do you attend [facility] or taoism services? More than 4 times [...] [facility] of Occupat ional [facility] - Occupational Stress Questionnaire Answer [...] your living situation today? I have a [facility] place to live 05/22/2023 Education Answer Date Recorded What is the highest level of school you have completed or the highest degree you have received? Some college, no degree 05/24/2020 Sex and Gender Information Value Date Recorded Sex Assigned at Male 10/29/2020 12:38 PM CDT Legal Sex Male 1:45 PM COVER CUTTER Gender Identity Male 07/15/2019 8:59 AM CDT Sexual Orientation Straight 07/15/2019 8: 59 AM CDT Last Filed Vital Signs Vital Sign Reading Time Taken Comments Blood Pressure 126/84 05/23/2023 8:08 AM CDT Pulse 91 05/23/2023 8:08 AM CDT Temperature 37.3 C (99.1 F) 01/20/2022 10:47 AM COVER CUTTER Respiratory Rate 30 02/11/2021 10:10 AM COVER CUTTER Oxygen Saturation 99% 02/11/2021 10:15 AM COVER CUTTER Inhaled Oxygen Concentration - - Weight 65.8 kg (145 lb) 07/08/2023 9:50 AM CDT Height 185.4 cm (6' 1) 07/08/2023 9:50 AM CDT Body Mass Index 19.13 07/08/2023 9:50 AM CDT Plan of Treatment Upcoming Encounters Date Type Department Care Team (Late st Contact Info) Description 05/29/2024 8:00 AM CDT Clinical Communication Virtual Review in [place], [place] [address] [place] [address] 05/31/2024 11:45 AM CDT Office Visit Department of Orthopedic Surgery in [place], [place] [address] [place] [phone] Jose Crawford M.D. [address] [place] [phone] 06/11/2024 1:00 PM CDT Telemedicine Department of Sports Medicine in [place], [place] [address] [place] [address] Ahsan Talbert M.D., Ph.D. [address] [place] [phone] Health Maintenance Due Date Last Done Comments Hepatitis C Screening 2000 Depression Screening (Annual PHQ-2) 02/08/2024 COVID-19 Vaccine (6 - Mixed Product risk season) 2024 11/02/2023, 04/16/2022, 02/18/2021, Additional history exists DTaP,Tdap,and Td Vaccines (7 - Td or Tdap) 11/19/2032 11/19/2022, 09/22/2012, 11/11/2004, Additional history exists Pneumococcal vaccine (0-49 years) Aged Out 04/21/2001, 01/12/2001, 2000 No longer eligible based on patient's age to complete this topic Hepatitis B Vaccines Completed 10/20/2001, 01/12/2001, 2000 IPV Vaccines Completed 11/11/2004, 04/07, 01/12/2001, Additional history exists HPV Vaccines Completed 10/28/2020, 02/08, 10/19/2019 Influenza Vaccine Completed 11/02/2023, , 04/16/2022, Additional history exists Medical Devices Implanted Type Area Bistro Attendant Device Identifier Shelf Expiration Date Model / Serial / Lot Hardware E.G. Pins/Screws/R ods Hardware e.g. pins/screws/ rods Chest Wall [employer] [address] Pk Hip Mini 2.4x8.9 - [id number] Implanted:Qty : 1 on 02/13/2020 by Zoltan Haines M.D. at [facility] Hardware e.g. pins/screws/ rods Right: Hip Arthrex [id number] 11/06/2024 AR-2924P S / / [id number] [address] Pk Hip Mini 2.4x8.9 - [id number] Implanted:Qty : 2 on 02/13/2020 by Zoltan Haines M.D. at [facility] Hardware e.g. pins/screws/ rods Right: Hip Arthrex [id number] 10/07/2024 AR-2924PH S / / [id number] [address] Pk Hip Mini 2.4x8.9 - [id number] Implanted:Qty : 1 on 02/13/2020 by Zoltan Haines M.D. at [facility] Hardware e.g. pins/screws/ rods Right: Hip Arthrex [id number] 07/07/2024 AR-2924PH S / / [id number] Kt Fix Intbrc Hnd Wrst - [id number] Implanted:Qty : 1 on 02/02/2021 by Jose Crawford M.D. at [facility] Hardware e.g. pins/screws/ rods Left: Wrist Arthrex [id number] 09/06/2025 AR-8978-C P / / [id number] Insurance [facility] CARE Care Teams Forest Officer Relationship Specialty Start Date End Date Elsewhere, Pcp PCP - General Internal Medicine 05/22/18
--- OUTSIDE RECORDS SUMMARY | 2024-05-17 19:32 | XMS_ITS | Encounter Summary ---
Author Organization [facility] Address [address] [place] [address]. [place] [address] Care Team Providers Care Rigger Third Name Role Phone Kei Eugene MD Unavailable [phone] Eliana Guerra MD Primary Care Provider [phone] Eliana Guerra MD Unavailable [phone] Eliana Guerra MD Unavailable [phone] Unavailable Unavailable Jody Obregon [facility] Unavailable [phone] Encounter Details Date Type Department Care Team (Late st Contact Info) Description 04/03/2024 Home Infusion [facility] [address] [place] [phone] Anastacia Rodriguez, RD Social History Tobacco [...] in an abandoned building, in an overnight prison, or couch-surfing.) Yes 03/03/2024 Are you worried [...] on file Legal Sex Male 9:18 AM DUMPMAN Gender Identity Not on file Sexual Orientation Not on file documented as of this encounter Plan of Treatment Scheduled Procedures Name Priority Associated Diagnoses Date/Ti me SURGICAL EXTRACTION, TOOTH Chronic pericoronitis documented as of this encounter Visit Diagnoses Not on filedocumented in this encounter Care Teams Rigger Third Relationship Specialty Start Date End Date Eliana Guerra MD [address] [place] [address] PCP - General Family Medicine 03/04/24 Kei Eugene MD [address] [place] [address] Assigned Musculoskeletal Provider 03/01/24 Eliana Guerra MD [address] [address] Home Infusion Following Provider Family Medicine 03/11/24 Eliana Guerra MD [facility] [address] [place] [address] Home Infusion Following Provider Family Medicine 03/14/[address] [facility] Registered Dietitian Dietitian 03/14/24 Jody Obregon APRN FIRE COORDINATOR [facility] [address] [place] [address] Home Infusion Following Provider 03/20/24 04/04/24 documented as of this encounter
--- OUTSIDE RECORDS SUMMARY | 2024-05-17 19:32 | XMS_ITS | Encounter Summary ---
Author Organization [facility] Address [address] [place] [address]. [place] [address] Care Team Providers Care Service Loss Control Consultant Name Role Phone Kei Eugene MD Unavailable [phone] Eliana Guerra MD Primary Care Provider [phone] Eliana Guerra MD Unavailable [phone] Eliana Guerra MD Unavailable [phone] Unavailable Unavailable Encounter Details Date Type Department Care Team (Late st Contact Info) Description 04/05/2024 Home Infusion [facility] [address] [place] [phone] Anastacia Rodriguez, JESUS ALBERTO Social History Tobacco Use Types Packs/Day Years [...] in an abandoned building, in an overnight detention, or couch-surfing.) Yes 03/03/2024 Are you worried [...] on file Legal Sex Male 9:18 AM BUCKET TURNER Gender Identity Not on file Sexual Orientation Not on file documented as of this encounter Progress Notes * Anastacia Rodriguez, RD - 04/05/2024 11:38 AM CST [facility] Nutrition Follow up Anthropometrics/Weight Goals Height: 1.88 m (6' 2.02) Weight: 65.7 kg (144 lb 14.4 oz) IBW Male (kg): 82.24 BMI (kg): 17.97 FHI Dosing Weight: 64.3 kg (141 lb 12.1 oz) Weight history / comments:: 04/05/24: 143 lbs per pt Current Nutrition Orders Oral Diet: 500-1000kcal/day per pt Enteral Nutrition Orders Enteral Formula: GetThis Standard 1.4 Rate/Frequency: 70ml/hr--up to 5 cartons/day Water Flushes: 120ml q 3 hours Enteral Nutrition Provides: 2275 (35kcal/kg), 100gm protein (1.5gm/kg), 1170ml free water + flushes Implementation Intervention: Was able to finally connect with pt today. He reports he is tolerating current formula very well. He is experiencing some gas but otherwise feeling very well on this fomrula . Current rate at 120ml/hr over night for 4 cartons at night. He is eating 500-1000kcals/day. Weight improving on home scale per pt. Discussed water flushing before and after feeds but Ok to obtain fluids po forhydration vs using FT for hydration needs. Plan Follow up/Recommendations: Continue to infuse up to 5 cartons/day + po diet. Monitor weight and tolerance Anastacia Rodriguez RD, CNSC, LD [facility] Dietitian ET TURNER documented in this encounter Plan of Treatment Scheduled Procedures Name Priority Associated Diagnoses Date/Ti me SURGICAL EXTRACTION, TOOTH Chronic pericoronitis documented as of this encounter Visit Diagnoses Not on filedocumented in this encounter Care Teams Service Loss Control Consultant Relationship Specialty Start Date End Date Eliana Guerra MD [address] [place] [address] PCP - General Family Medicine 03/04/24 Kei Eugene MD [address] [place] [address] Assigned Musculoskeletal Provider 03/01/24 Eliana Guerra MD [facility] [address] [place] [address] Home Infusion Following Provider Family Medicine 03/11/24 Eliana Guerra MD [facility] [address] [place] [address] Home Infusion Following Provider Family Medicine 03/14/[address] [facility] Registered Dietitian Dietitian 03/14/24 documented as of this encounter
--- OUTSIDE RECORDS SUMMARY | 2024-05-17 19:32 | XMS_ITS | Encounter Summary ---
Author Organization [facility] Address [address] [place] [address]. [place] [address] Care Team Providers Care Junior Architect Name Role Phone Kei Eugene MD Unavailable [phone] Eliana Guerra MD Primary Care Provider [phone] Eliana Guerra MD Unavailable [phone] Eliana Guerra MD Unavailable [phone] Unavailable Unavailable Encounter Details Date Type Department Care Team (Late st Contact Info) Description 04/24/2024 Home Infusion [facility] [address] [place] [id number] Anastacia Rodriguez, JESUS ALBERTO Social History [...] in an abandoned building, in an overnight senior living, or couch-surfing.) Yes 03/03/2024 Are you worried [...] on file Legal Sex Male 9:18 AM [employer] Gender Identity Not on file Sexual Orientation Not on file documented as of this encounter Progress Notes * Anastacia Rodriguez, RD - 04/24/2024 10:30 AM CDT [facility] Nutrition Follow up Anthropometrics/Weight Goals Height: 1.88 m (6' 2.02) Weight: 65.7 kg (144 lb 14.4 oz) IBW Male (kg): 82.24 BMI (kg): 17.97 FHI Dosing Weight: 64.3 kg (141 lb 12.1 oz) Weight history / comments:: 04/24/24: 152 lbs per pt Feeding tube type: GJ-Tube Current Nutrition Orders Oral Diet: 500kcals or more per day Enteral Nutrition Orders Enteral Formula: STATS Group Standard 1.4 Rate/Frequency: 70ml/hr--up to 5 cartons/day Water Flushes: 120ml q 3 hours Enteral Nutrition Provides: 2275 (35kcal/kg), 100gm protein (1.5gm/kg), 1170ml free water + flushes Implementation Intervention: Spoke with pt today for f/up. He reports TFs are going well-he is infusing 4 cartons/day + po intake and weight improving. He is however having pain at site when running ,coughing, sneezing, laughing. He is waiting to hear back from surgeon regarding this. He also reports his mother is leaving the country for a few weeks and she is currently helping him with his feedings. He is wondering if he can get closed system bags instead of opening the cans. Discussed with Enteral Coordinator and bags would have to be added to [facility] formulary but they are availalbe from [facility]. Pt will let us know if he decides to go this route. Plan Follow up/Recommendations: Continue 4-5 cartons/day + po diet. Pt to let us know if he decides to switch to closed system while mother is away Anastacia Rodriguez RD, [facility], [facility] Dietitian documented in this encounter Plan of Treatment Scheduled Procedures Name Priority Associated Diagnoses Date/Ti me SURGICAL EXTRACTION, TOOTH Chronic pericoronitis documented as of this encounter Visit Diagnoses Not on filedocumented in this encounter Care Teams Junior Architect Relationship Specialty Start Date End Date Eliana Guerra MD [address] [place] [address] PCP - General Family Medicine 03/04/24 Kei Eugene MD [address] [place] [address] Assigned Musculoskeletal Provider 03/01/24 Eliana Guerra MD [facility] [address] [place] [address] Home Infusion Following Provider Family Medicine 03/11/24 Eliana Guerra MD [facility] [address] [place] [address] Home Infusion Following Provider Family Medicine 03/14/[address] [facility] Registered Dietitian Dietitian 03/14/24 documented as of this encounter
--- OUTSIDE RECORDS SUMMARY | 2024-05-17 19:32 | XMS_ITS | Clinical Summary ---
Author Organization [facility] Address [address], [place] [address] Care Team Providers Care Senior Commissions Analyst Name Role Phone Eliana Guerra MD Primary Care Provider [phone] Source Comments You are receiving this document as you are listed as the primary care provider,follow-up provider, or the patient has been referred to you for consultation.This is in compliance with the Medicare and[facility] EHR Incentive Program,which states Providers who transition their patient to another setting of careor provider of care or refers their patient to another provider of care shouldprovide summary care record for each transition of care or referral. Vitals ([email or web address].com) Allergies Active Allergy Reactions Criticality Noted Date Comments Other Other, see comments 04/13/2024 HAS AN ALLERGY TO SOME KIND OF SUGAR HAVING TESTING TO DETERMINE TYPE Medications acetaminophen (TYLENOL) 325 MG tablet Take 2 Tablets (650 mg) by mouth. 03/14/19 25 Active aspirin 81 MG chewable tablet Chew and swallow by mouth. 11/07/19 24 Active clotrimazole (LOTRIMIN) 1 % cream 1 APPLICATION TOPICALLY TWICE DAILY NEEDED. FOR SKIN IRRITATION/YEAST DERMATITIS 12/02/19 24 Active famotidine (PEPCID) 40 MG tablet Take 1 Tablet (40 mg) by mouth. 03/15/19 25 Active gabapentin (NEURONTIN) 300 MG capsule Take 1 Capsule (300 mg) by mouth. 03/14/19 25 Active Incontinence Supply Disposable (WINGS CHOICE PLUS YOUTH BRIEFS) For home use. 12/20/19 24 Active metoclopramide (REGLAN) 5 MG tablet Take 1 Tablet (5 mg) by mouth. 03/01/19 25 Active lidocaine (ASPERCREAM) 4 % patch Apply 3 Patches to skin every 24 hours. 03/14/19 25 Active acetaminophen (TYLENOL) 500 MG tablet Take 2 Tablets (1,000 mg) by mouth every 8 hours. Maximum acetaminophen dose is 4000 mg in 24 hours 100 Tablet 5 3:17 PM CDT 04/28/19 25 Active methocarbamol (ROBAXIN) 500 MG tablet Take 1 Tablet (500 mg) by mouth three times a day as needed for Muscle Spasms. 30 Tablet 5 3:17 PM CDT 04/28/19 25 Active cyclobenzaprin e (FLEXERIL) 5 MG tablet Take 1 Tablet (5 mg) by mouth three times a day as needed for Muscle Spasms. 30 Tablet 2 05/10/19 25 Active diazePAM (VALIUM) 5 MG tablet Take 1 Tablet (5 mg) by mouth every 6 hours as needed for Anxiety or Muscle Spasms. 30 Tablet 1 05/12/19 25 Active HYDROcodone-ac etaminophen (NORCO) 5-325 MG tablet Take 1 Tablet by mouth every 6 hours as needed for Pain. 20 Tablet 05/12/19 25 Active promethazine (PHENERGAN) 12.5 MG tablet Take 1 Tablet (12.5 mg) by mouth daily at bedtime. 30 Tablet 3 05/16/19 25 Active HYDROcodone-ac etaminophen (NORCO) 5-325 MG tabletIndicati ons:Pain Take 1-2 Tablets by mouth every 6 hours as needed for Pain. Indications: Pain 15 Tablet 5 3:17 PM CDT 04/28/19 25 025 Discontinu ed(*Med change OR same med OR reorder, new dose/direc tions) ketorolac (TORADOL) 10 MG tablet Take 1 Tablet (10 mg) by mouth three times a day as needed for Pain for up to 3 days. 9 Tablet 5 3:17 PM CDT 04/28/19 25 025 Active Problems Problem Noted Date Diagnosed Date Acquired pectus carinatum 04/13/2024 Anxiety 04/13/2024 Arthralgia of foot 04/13/2024 At high risk for falls 04/13/2024 Overview (04/13/2024): Added via Discern Expert ADD_HIGHRISKFALL_PROBLEM Rule. Receives feedings through gastrostomy 04/13/2024 S/P gastrostomy 04/13/2024 Congenital dysplasia of hip 04/13/2024 Peroneal tendinitis of right lower extremity Epigastric abdominal pain 03/02/2024 Nausea 03/02/2024 Chronic back pain 04/21/2023 Acquired deformity of chest wall 01/19/2022 Crepitus of both temporomandibular joints on ope elisabeth of jaw 09/24/2020 Musculoskeletal hypermobility 09/24/2020 Overview (04/13/2024): Connective tissue disorder Myofascial pain syndrome 09/24/2020 Tension type headache 09/24/2020 Tinnitus 09/24/2020 Temporomandibular joint disorder 09/18/2020 Overview (04/13/2024): Bilateral DD w reduction and intermittent locking Radial styloid tenosynovitis 05/23/2020 Arthralgia of hip 12/12/2019 Overview (04/13/2024): Added automatically from request for surgery [id number] Tear of acetabular labrum 12/12/2019 Overview (04/13/2024): Added automatically from request for surgery [id number] 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 [address] Anahi Van MD Aftercare following surgery of the musculoskeletal system (Primary Dx) 2024 2:05 PM CDT Ancillary Procedure [facility] [address] [place] [address]. [place] [address] Anahi Van MD Aftercare following surgery of the musculoskeletal system 04/27/2024 10:18 AM CDT Anesthesia Event [facility] Operating Room [address] [place] [id number] Karen Castrejon MD Wen, Steve Deyong, MD 04/27/2024 9:50 AM CDT Ancillary Procedure [facility] [address] [place] [address] Anahi Van MD 04/27/2024 9:35 AM CDT - 04/27/2024 1:55 PM CDT Surgery [facility] Operating Room [address] [place] [address] Anahi Van MD Repair dislocation peroneal tendons with fibular groove deepening and longus to brevis tenodesis 04/27/2024 8:05 AM CDT - 04/27/2024 3:32 PM CDT Hospital Encounter Operating Room [address] [place] [address] Anahi Van MD Pain (Primary Dx); Peroneal tendinitis of right lower extremity Discharge Disposition: Home 04/27/2024 Orders Only HIM DEPARTMENT ProviderJesus MD 04/13/2024 Notes/Orders [facility] [place] [address] [place] [address] Anahi Van MD 03/28/2024 4:00 PM DAY SPA MANAGER E-Visit Specialty [place] [address] [place] [address] Anahi Van MD Chief Comp: Follow-up, NOS 03/28/2024 Telephone Specialty [place] [address] [place] [address] Anahi Van MD Surgery Questions 03/27/2024 10:40 AM DAY SPA MANAGER Office Visit Specialty [place] [address] [place] [address] Anahi Van MD Right ankle pain, unspecified chronicity (Primary Dx); Peroneal tendinitis of right lower extremity 03/27/2024 10:25 AM DAY SPA MANAGER Ancillary Procedure [facility] [address] [place] [address] Anahi Van MD Right ankle pain, unspecified chronicity 03/20/2024 Orders Only [address] [id number] Tami John, CARDIAC CATH LAB MANAGER, DIRECTOR OF EARLY CHILDHOOD EDUCATION Other specified congenital deformities of hip; Klinefelter syndrome, unspecified (HRC); Gastrostomy status (HRC); Scoliosis, unspecified 03/15/2024 Telephone [place] [address] [place] [address] Anahi Van MD Request For Records from Last 3 Months Social History Tobacco Use Types Packs/Day Years Used Date Smoking Tobacco: Never Assessed Sex and Gender Information Value Date Recorded Sex Assigned at Not on file Legal Sex Male 5:33 PM DAY SPA MANAGER Gender Identity Not on file Sexual Orientation Not on file Last Filed Vital Signs Vital Sign Reading Time Taken Comments Blood Pressure 124/98 04/27/2024 2:34 PM CDT Pulse 95 04/27/2024 2:34 PM CDT Temperature 36.2 C (97.2 F) 04/27/2024 2:34 PM CDT Respiratory Rate 14 04/27/2024 2:34 PM CDT Oxygen Saturation 100% 04/27/2024 2:34 PM CDT Inhaled Oxygen Concentration - - Weight 67.1 kg (148 lb) 04/27/2024 2:00 PM CDT Height 188 cm (6' 2) 03/27/2024 10:29 AM DAY SPA MANAGER Body Mass Index 19 03/27/2024 10:29 AM DAY SPA MANAGER Plan of Treatment Upcoming Encounters Date Type Department Care Team (Late st Contact Info) Description 06/06/2024 1:00 PM CDT Appointment [place] [phone] [place] [address] Anahi Van MD [address] [place] [address] 06/11/2024 9:10 AM CDT Appointment [facility] 435 [facility] [place] [address] Nilay Ceron MD [address] [place], [place] [id number] Health Maintenance Due Date Last Done Comments Hep C Screening (Preventive Services) 2000 Adult Preventive Visit 2018 HepB (1) 05/10/2019 DTaP/Tdap/Td (7 - Tdap) 11/19/2032 11/20/19 23, 09/22/2012, 11/11/2004, Additional history exists Zoster/Shingles (1 of 2) 2050 Pneumococcal Aged Out 04/21/2001, 07/2000, 2000 No longer eligible based on patient's age to complete this topic Hib Completed 10/20/2001, 07/2000, 2000 IPV (Polio) Completed 11/11/2004, 04/07, 01/12/2001, Additional history exists MCV4 Completed 02/23/2017, 09/02/2015 HepA Completed 04/18/2018, 02/23/2017 HIV Screening (Preventive Services) Completed 08/18/2020 HPV Vaccine Completed 10/28/2020, 02/08, 10/19/2019 COVID-19 Vaccine Completed 11/02/2023, 11/2022, 02/18/2021, Additional history exists Influenza Completed 11/02/2023, 11/07, 04/16/2022, Additional history exists Meningococcal B Aged Out No longer el igible based on patient's age to complete this topic Procedures Procedure Name Priority Date/Time Associated Diagnosis Comments XR ANKLE RT 3 VIEWS Routine 2024 2 :15 PM CDT Aftercare following surgery of the musculoskeletal system XR C-ARM 1-1.5 HOURS Routine 04/27/2024 12:47 PM CDT EXCISION EXOSTOSIS FOOT 04/27/2024 10:02 AM CDT Peroneal tendinitis of right lower extremity LENGTHENING GASTROCNEMIUS 04/27/2024 10:02 AM CDT Peroneal tendinitis of right lower extremity LENGTHENING LOWER EXTREMITY TENDON 04/27/2024 10:02 AM CDT Peroneal tendinitis of right lower extremity EKG 04/27/2024 XR FOOT 3+ VIEWS/ANKLE 2 VIEWS SERIES RT Routine 03/27/2024 10:28 AM DAY SPA MANAGER Right ankle pain, unspecified chronicity MRSA CULTURE Routine 03/20/2024 2:32 PM DAY SPA MANAGER Other specified congenital deformities of hip Klinefelter syndrome, unspecified (HRC) Gastrostomy status (HRC) Scoliosis, unspecified MRSA, MOLECULAR DETECTION Routine 03/20/2024 2:32 PM DAY SPA MANAGER Other specified congenital deformities of hip Klinefelter syndrome, unspecified (HRC) Gastrostomy status (HRC) Scoliosis, unspecified COMPLETE BLOOD COUNT-W/DIFF Routine 03/20/2024 2:32 PM DAY SPA MANAGER Other specified congenital deformities of hip Klinefelter syndrome, unspecified (HRC) Gastrostomy status (HRC) Scoliosis, unspecified CBC AND DIFFERENTIAL PANEL Routine 03/20/2024 2:32 PM DAY SPA MANAGER Other specified congenital deformities of hip Klinefelter syndrome, unspecified (HRC) Gastrostomy status (HRC) Scoliosis, unspecified VITAMIN D 25-HYDROXY, TOTAL Routine 03/20/2024 2:32 PM DAY SPA MANAGER Other specified congenital deformities of hip Klinefelter syndrome, unspecified (HRC) Gastrostomy status (HRC) Scoliosis, unspecified INR/PROTIME Routine 03/20/2024 2:32 PM DAY SPA MANAGER Other specified congenital deformities of hip Klinefelter syndrome, unspecified (HRC) Gastrostomy status (HRC) Scoliosis, unspecified PLATELET FUNCTION TIME Routine 03/20/2024 2:32 PM DAY SPA MANAGER Other specified congenital deformities of hip Klinefelter syndrome, unspecified (HRC) Gastrostomy status (HRC) Scoliosis, unspecified PHOSPHORUS Routine 03/20/2024 2:32 PM DAY SPA MANAGER Other specified congenital deformities of hip Klinefelter syndrome, unspecified (HRC) Gastrostomy status (HRC) Scoliosis, unspecified IRON PROFILE (IRON,TIBC,%SAT.(CALC )) Routine 03/20/2024 2:32 PM DAY SPA MANAGER Other specified congenital deformities of hip Klinefelter syndrome, unspecified (HRC) Gastrostomy status (HRC) Scoliosis, unspecified FERRITIN Routine 03/20/2024 2:32 PM DAY SPA MANAGER Other specified congenital deformities of hip Klinefelter syndrome, unspecified (HRC) Gastrostomy status (HRC) Scoliosis, unspecified APTT (ACTIVATED PARTIAL THROMBOPLASTIN TIME Routine 03/20/2024 2:32 PM DAY SPA MANAGER Other specified congenital deformities of hip Klinefelter syndrome, unspecified (HRC) Gastrostomy status (HRC) Scoliosis, unspecified from Last 3 Months Results * XR Ankle Rt 3 Views (2024 2:15 PM CDT) Anatomical Region Laterality Modality Lower Extremity, Ankle, Foot & Ankle Computed Radiography 2024 2:15 PM CDT Narrative 05/10/2024 6:32 AM CDT EXAM: XR ANKLE RT 3 VIEWS LOCATION: [facility] DATE: 2024 INDICATION: Repair dislocation peroneal tendons with fibular groove deepening and longus to brevis tenodesis (Right) LENGTHENING GASTROCNEMIUS (Right) EXCISION EXOSTOSIS ANKLE (Right), Encounter for other orthopedic aftercare, PROSTHESIS EVALUATION COMPARISON: 03/27/2024. IMPRESSION: There are several linear lucencies within the distal right fibula which are presumed to represent postoperative orthopedic changes of the band and screw tracks. The most superior of these demonstrate slight lateral cortical displacement and a nondisplaced fracture cannot be excluded. Overall however there is near-anatomic alignment. There is mild overlying soft tissue swelling involving the lateral right ankle. Procedure Note Addy Plummer MD - 05/10/2024 EXAM: XR ANKLE RT 3 VIEWS LOCATION: [facility] 435 DATE: 2024 INDICATION: Repair dislocation peroneal tendons with fibular groovedeepening and longus to brevis tenodesis (Right) LENGTHENING GASTROCNEMIUS(Right) EXCISION EXOSTOSIS ANKLE (Right), Encounter for other orthopedicaftercare, PROSTHESIS EVALUATION COMPARISON: 03/27/2024. IMPRESSION: There are several linear lucencies within the distal right fibula whichare presumed to represent postoperative orthopedic changes of the band andscrew tracks. The most superior of these demonstrate slight lateral corticaldisplacement and a nondisplaced fracture cannot be excluded. Overallhowever there is near-anatomic alignment. There is mild overlying softtissue swelling involving the lateral right ankle. us Anahi Van MD RAD GD Final Result * XR C-Arm 1-1.5 Hours (04/27/2024 12:47 PM CDT) Anatomical Region Laterality Modality X-Ray Angiograph y Narrative 04/27/2024 12:47 PM CDT Fluoroscopy provided by a nanotechnology engineering technologist. Exact fluoroscopy time is documented in end of exam information in EPIC us Anahi Van MD RAD GD Final Result * EKG (04/27/2024) us Interface Provider EKG Final Resu lt * XR Foot 3+ Views/Ankle 2 Views Series Rt (03/27/2024 10:28 AM DAY SPA MANAGER) Anatomical Region Laterality Modality Lower Extremity, Foot, Ankle Com puted Radiography 03/27/2024 10:2 8 AM DAY SPA MANAGER Narrative 03/27/2024 10:34 AM DAY SPA MANAGER EXAM: XR FOOT 3+ VIEWS/ANKLE 2 VIEWS SERIES RT LOCATION: [facility] 435 DATE: 03/27/2024 INDICATION: New patient, Pain in right ankle and joints of right COMPARISON: Right foot radiograph 11/23/2023 IMPRESSION: Normal joint spaces and alignment. No acute fracture or dislocation. The ankle mortise is maintained. Procedure Note Yossi Mccarthy MD - 03/27/2024 EXAM: XR FOOT 3+ VIEWS/ANKLE 2 VIEWS SERIES RT LOCATION: [facility] DATE: 03/27/2024 INDICATION: New patient, Pain in right ankle and joints of right COMPARISON: Right foot radiograph 11/23/2023 IMPRESSION: Normal joint spaces and alignment. No acute fracture ordislocation. The ankle mortise is maintained. Anahi Van MD RAD GD Final Result * MRSA, Molecular Detection (03/20/2024 2:32 PM DAY SPA MANAGER) [facility] MRSA Not Detected Not Detected 03/20/2024 5:00 PM DAY SPA MANAGER [facility] Swab (Source Required) ENTIRE ANTERIOR NARIS / Unknown Non-blood Collection / Unknown 03/20/2024 2:32 PM DAY SPA MANAGER 03/20/2024 2:33 PM DAY SPA MANAGER Narrative [facility] - 03/20/2024 5:00 PM DAY SPA MANAGER Methodology: Qualitative real-time PCR assay Result [facility] Tami John APRN, DIRECTOR OF EARLY CHILDHOOD EDUCATION LAB_1 Beatriz l Result Performing Organization Address [facility] Co de Phone Number [address] * MRSA Culture (03/20/2024 2:32 PM DAY SPA MANAGER) [facility] MRSA Culture No Methicillin Resistant Staph aureus Isolated 03/21/2024 2:01 PM DAY SPA MANAGER [facility] Swab (Source Required) ENTIRE ABDOMEN / Unknown Non-blood Collection / Unknown 03/20/2024 2:32 PM DAY SPA MANAGER 03/20/2024 2:33 PM DAY SPA MANAGER Tami John CARDIAC CATH LAB MANAGER, DIRECTOR OF EARLY CHILDHOOD EDUCATION LAB_1 Beatriz l Result Performing Organization Address [facility]/ZIP Co de Phone Number [address] * Vitamin D 25-Hydroxy, Total (03/20/2024 2:32 PM DAY SPA MANAGER) Pathologist [facility] [place] Vitamin D, 25-OH, Total 42 30 - 80 ng/mL 03/21/2024 11:17 AM DAY SPA MANAGER [facility] Blood Venipuncture / Unknown 03/20/2024 2:32 PM DAY SPA MANAGER 03/20/2024 2:33 PM DAY SPA MANAGER Tami John APRN, DIRECTOR OF EARLY CHILDHOOD EDUCATION LAB_1 Beatriz l Result [facility] [address] * Platelet Function Time (03/20/2024 2:32 PM DAY SPA MANAGER) Pathologist [facility] [place] Plt Function Time Collagen/Epine phrine 135 <185 Seconds 03/20/2024 4:08 PM [facility] Blood Venipuncture / Unknown 03/20/2024 2:32 PM DAY SPA MANAGER 03/20/2024 2:33 PM DAY SPA MANAGER Tami John APRN, DIRECTOR OF EARLY CHILDHOOD EDUCATION LAB_1 Beatriz l Result [address] * (ABNORMAL) Complete Blood Count-W/Diff (03/20/2024 2:32 PM DAY SPA MANAGER) Pathologist [facility] [place] WBC 7.1 3.5 - 10.5 x10(9)/L 03/20/2024 3:19 PM [facility] RBC 5.11 4.32 - 5.72 x10(12)/L 03/20/2024 3:19 PM [facility] Hemoglobin 14.7 13.5 - 17.5 g/dL 03/20/2024 3:19 PM [facility] HCT 43.5 38.8 - 50.0 % 03/20/2024 3:19 PM [facility] MCV 85.1 80.0 - 100.0 fL 03/20/2024 3:19 PM [facility] MCH 28.8 27.6 - 33.3 pg 03/20/2024 3:19 PM [facility] MCHC 33.8 31.5 - 35.2 g/dL 03/20/2024 3:19 PM [facility] RDW 12.0 11.9 - 15.5 % 03/20/2024 3:19 PM [facility] Platelets 387 150 - 450 x10(9)/L 03/20/2024 3:19 PM [facility] Automated NRBC 0 <=0 /100 WBC 03/20/2024 3:19 PM [facility] Neutrophil Absolute 4.6 1.7 - 7.0 10(9)/L 03/20/2024 3:19 PM [facility] Lymphocyte Absolute 1.8 1.0 - 4.8 10(9)/L 03/20/2024 3:19 PM [facility] Monocyte Absolute 0.5 0.2 - 0.9 10(9)/L 03/20/2024 3:19 PM [facility] Eosinophil Absolute 0.2 0.0 - 0.5 10(9)/L 03/20/2024 3:19 PM [facility] Basophil Absolute 0.0 0.0 - 0.3 10(9)/L 03/20/2024 3:19 PM [facility] Immature Granulocyte % 1.1(H) 0.0 - 0.5 % 03/20/2024 3:19 PM [facility] Blood Venipuncture / Unknown 03/20/2024 2:32 PM DAY SPA MANAGER 03/20/2024 2:33 PM DAY SPA MANAGER Tami John APRN, DIRECTOR OF EARLY CHILDHOOD EDUCATION LAB_1 Beatriz l Result [address] [address], [facility] * APTT (Activated Partial Thromboplastin Time) (03/20/2024 2:32 PM DAY SPA MANAGER) APTT 28.2 22.5 - 36.5 Seconds 03/20/2024 7:29 PM [facility] Blood Venipuncture / Unknown 03/20/2024 2:32 PM DAY SPA MANAGER 03/20/2024 2:33 PM DAY SPA MANAGER Tami John APRN, DIRECTOR OF EARLY CHILDHOOD EDUCATION LAB_1 Beatriz l Result [address] * Ferritin (03/20/2024 2:32 PM DAY SPA MANAGER) Ferritin 170 22 - 275 ng/mL 03/20/2024 4:02 PM DAY SPA MANAGER [facility] Blood Venipuncture / Unknown 03/20/2024 2:32 PM DAY SPA MANAGER 03/20/2024 2:33 PM DAY SPA MANAGER Tami John APRN, DIRECTOR OF EARLY CHILDHOOD EDUCATION LAB_1 Beatriz l Result Performing Organization Address [facility]/ZIP Co de Phone Number [address] * Phosphorus (03/20/2024 2:32 PM DAY SPA MANAGER) Phosphorus 4.5 2.3 - 4.7 mg/dL 03/20/2024 3:42 PM [facility] Blood Venipuncture / Unknown 03/20/2024 2:32 PM DAY SPA MANAGER 03/20/2024 2:33 PM DAY SPA MANAGER Tami John APRN, DIRECTOR OF EARLY CHILDHOOD EDUCATION LAB_1 Beatriz l Result Performing Organization Address [facility] Co de Phone Number [address] * Iron Profile (Iron,TIBC,%Sat.(Calc)) (03/20/2024 2:32 PM DAY SPA MANAGER) Iron 83 65 - 175 mcg/dL 03/20/2024 3:42 PM [facility] Transferrin 249 174 - 364 mg/dL 03/20/2024 3:42 PM [facility] TIBC, Calculated 311 240 - 450 mcg/dL 03/20/2024 3:42 PM [facility] % Saturation, Calculated 27 10 - 50 % 03/20/2024 3:42 PM [facility] Blood Venipuncture / Unknown 03/20/2024 2:32 PM DAY SPA MANAGER 03/20/2024 2:33 PM DAY SPA MANAGER Tami John APRN, DIRECTOR OF EARLY CHILDHOOD EDUCATION LAB_1 Beatriz l Result Performing Organization Address [facility] Co de Phone Number [address] * INR/Protime (03/20/2024 2:32 PM DAY SPA MANAGER) Protime 13.0 11.8 - 14.6 Seconds 03/20/2024 3:34 PM DAY SPA MANAGER [facility] INR 1.0 0.9 - 1.1 03/20/2024 3:34 PM [facility] Blood Venipuncture / Unknown 03/20/2024 2:32 PM DAY SPA MANAGER 03/20/2024 2:33 PM DAY SPA MANAGER Narrative [facility] - 03/20/2024 3:34 PM DAY SPA MANAGER If you take an anticoagulant medicine called warfarin, your doctor or clinician may establish a normal range for you that is different from the baseline range shown. Tami John APRN, DIRECTOR OF EARLY CHILDHOOD EDUCATION LAB_1 Beatriz l Result Performing Organization Address [facility] Co de Phone Number [address] from Last 3 Months Insurance [facility] Care Teams Senior Commissions Analyst Relationship Specialty Start Date End Date Eliana Guerra MD [address] [place] [address] PCP - General Family Practice 12/04/19
--- OUTSIDE RECORDS SUMMARY | 2024-05-17 19:32 | XMS_ITS | Encounter Summary ---
Author Organization [facility] Address [address], [place] [address] Care Team Providers [employer] Specialist Name Role Phone Eliana Guerra MD Primary Care Provider [phone] Reason for Visit * Procedure/Equipment (Routine) - Incomplete Specialty Diagnoses / Procedures Referred By Contac t Referred To Contact Diagnoses Aftercare following surgery of the musculoskeletal system Procedures XR Ankle Rt 3 Views Anahi Van MD [address] [place] [address] Phone: tel: fax: Referral ID Status Reason Start Date Expiration Date V isits Requested Visits Authorized [id number] Incomplete 2024 08/08/2025 1 1 Encounter Details Date Type Department Care Team (Latest Contact Info) Description 2024 2:05 PM CDT Ancillary Procedure [facility] [address] [place] [address] Anahi Van MD [address] [place] [id number] Aftercare following surgery of the musculoskeletal system Social History Tobacco Use Types Packs/Day Years Used Date Smoking Tobacco: Never Assessed Sex and Gender Information Value Date Recorded Sex Assigned at Not on file Legal Sex Male 5:33 PM [employer] Gender Identity Not on file Sexual Orientation Not on file documented as of this encounter Plan of Treatment Upcoming Encounters Date Type Department Care Team (Late st Contact Info) Description 06/06/2024 1:00 PM CDT Appointment [facility] [address] [facility] [address] [place] [address] Anahi Van MD [address] [place] [address] 06/11/2024 9:10 AM CDT Appointment [place] [address] [facility] [address] [place] [address] Nilay Ceron MD [address] [place] [address] documented as of this encounter Procedures Procedure Name Priority Date/Time Associated Diagnosis Comments XR ANKLE RT 3 VIEWS Routine 2024 2:15 PM CDT Aftercare following surgery of the musculoskeletal system documented in this encounter Results * XR Ankle Rt 3 Views (2024 2:15 PM CDT) Anatomical Region Laterality Modality Lower Extremity, Ankle, Foot & Ankle Computed Radiography 2024 2:15 PM CDT Narrative 05/10/2024 6:32 AM CDT EXAM: XR ANKLE RT 3 VIEWS LOCATION: [place] [address] DATE: 2024 INDICATION: Repair dislocation peroneal tendons [...] EXAM: XR ANKLE RT 3 VIEWS LOCATION: [place] [address] DATE: 2024 INDICATION: Repair dislocation peroneal tendons [...] Anahi Van MD RAD GD Final Result documented in this encounter Visit Diagnoses Diagnosis Aftercare following surgery of the musculoskeletal system Aftercare following surgery of the musculoskeletal system, NEC documented in this encounter Care Teams [employer] Specialist Relationship Specialty Start Date End Date Eliana Guerra MD [address] [place] [address] PCP - General Family Practice 12/04/19 documented as of this encounter
--- OUTSIDE RECORDS SUMMARY | 2024-05-17 19:32 | XMS_ITS | Clinical Summary ---
Author Organization [facility] Address [address] [place] [address]. [place] [address] Care Team Providers Care Materials Branch Chief Name Role Phone Kei Eugene MD Unavailable [phone] Eliana Guerra MD Primary Care Provider [phone] Eliana Guerra MD Unavailable [phone] Eliana Guerra MD Unavailable [phone] Unavailable Unavailable Allergies No known active allergies Medications famotidine (PEPCID) 40 MG tablet Take 40 mg by mouth daily. Active metoclopramide (REGLAN) 5 MG tablet Take 5 mg by mouth 3 times daily (before meals). Active oxyBUTYnin (DITROPAN) 5 MG tablet Take 5 mg by mouth 2 times daily. Active acetaminophen (TYLENOL) 325 MG tabletIndications :Epigastric abdominal pain Take 2 tablets (650 mg) by mouth every 8 hours as needed for mild pain. 5 Active gabapentin (NEURONTIN) 300 MG capsuleIndication s:Epigastric abdominal pain Take 1 capsule (300 mg) by mouth 3 times daily. 60 capsule 5 Active Lidocaine (LIDOCARE) 4 % PatchIndications: Epigastric abdominal pain Place 3 patches over 12 hours onto the skin every 24 hours. To prevent lidocaine toxicity, patient should be patch free for 12 hrs daily. 30 patch 1 5 Active polyethylene glycol (MIRALAX) 17 g packetIndications :Drug-induced constipation Take 17 g by mouth daily as needed for constipation. 20 packet 5 Active senna-docusate (SENOKOT-S/TINA LACE) 8.6-50 MG tabletIndications :Drug-induced constipation Take 1 tablet by mouth 2 times daily as needed for constipation. 30 tablet 5 Active ondansetron (ZOFRAN ODT) 4 MG ODT tabIndications:Na usea Take 1 tablet (4 mg) by mouth every 8 hours as needed for nausea. 20 tablet 5 Active pantoprazole (PROTONIX) 40 MG EC tabletIndications :Epigastric abdominal pain Take 1 tablet (40 mg) by mouth daily. 30 tablet 1 5 Active Arideas Standard 1.4 Plain 11 OzIndications:Darius ght loss Place 1,625 mLs into GJ tube daily. Infuse via pump 70ml/hr Water flush: 120ml q 3 hours 45939 mL 11 05/01/2024 7:45 AM CDT Active Active Problems Problem Noted Date Diagnosed Date Nausea 03/02/2024 Epigastric abdominal pain 03/02/2024 Weight loss 03/02/2024 Encounters Date Type Department Care Team Description 04/24/2024 Home Infusion [facility] [address] [place] [phone] 04/05/2024 Home Infusion [facility] [address] [place] [phone] 04/03/2024 Home Infusion [facility] [address] [place] [phone] 03/26/2024 Plan of Care Documentation [facility] [address] [place] [phone] 03/26/2024 Home Infusion [facility] [address] [place] [phone] Anastacia Rodriguez, JESUS ALBERTO Weight loss (Primary Dx) 03/24/2024 4:00 PM REGISTERED MASSAGE THERAPIST Home Care Visit [facility] [address] [place] [phone] Anastacia Manjarrez KASIE 03/24/2024 Telephone [facility] [address] [place] [phone] Yaneth Contreras RN 03/21/2024 10:13 AM REGISTERED MASSAGE THERAPIST - 03/21/2024 11:59 PM REGISTERED MASSAGE THERAPIST Hospital Encounter [facility] [address] [place] [phone] Mateusz Sanchez MD Discharge Disposition: Home or Self Care 03/21/2024 Travel 03/19/2024 Home Infusion [facility] [address] [place] [phone] Anastacia Rodriguez, JESUS ALBERTO 03/17/2024 Telephone [facility] [address] [place] [phone] Lisa Saba RN clogged tube 03/16/2024 9:00 AM REGISTERED MASSAGE THERAPIST Home Care Visit [facility] [address] [place] [phone] Claude Chacon RN 03/15/2024 10:30 AM REGISTERED MASSAGE THERAPIST Home Care Visit [facility] [address] [place] [phone] Lashay Lima, KASIE 03/14/2024 1:00 PM REGISTERED MASSAGE THERAPIST Home Care Visit [facility] [address] [place] [phone] Geno Ruano, KASIE 03/14/2024 Plan of Care Documentation [facility] [address] [place] [phone] 03/14/2024 Home Infusion [facility] [address] [place] [phone] Anastacia Rodriguez, RD Weight loss; Nausea 03/05/2024 Home Infusion [facility] [address] [place] [phone] Yissel Guerra Weight loss (Primary Dx); Nausea 03/05/2024 Home Infusion [facility] [address] [place] [phone] Vern Childress LPN 03/03/2024 10:00 AM REGISTERED MASSAGE THERAPIST - 03/03/2024 10:30 AM REGISTERED MASSAGE THERAPIST Surgery [facility] [address] [place] [phone] Manuela Ramos MD Esophagoscopy, gastroscopy, duodenoscopy (EGD), combined 03/02/2024 6:49 PM REGISTERED MASSAGE THERAPIST - 03/14/2024 2:23 PM REGISTERED MASSAGE THERAPIST Hospital Encounter [facility] Observation Dept [address] [place] [phone] Olu Hogue DO Bray, Scott, MD Peery, Stephen, MD Young, Jean Tsai, MD Epigastric abdominal pain (Primary Dx); Nausea; Weight loss; Dressing change or removal, nonsurgical wound; Other chronic pain; Drug-induced constipation; G tube feedings (H) Discharge Disposition: Home or Self Care 03/02/2024 Travel from Last 3 Months Social History Tobacco Use Types Packs/Day Years Used Date Smoking Tobacco: Never Smokeless Tobacco: Never Tobacco Cessation:Counseling Given: Not Answered Alcohol Use Standard Drinks/Week Comments Yes 0 [...] Answer Date Recorded Do you have housing? (Isael g is defined as stable permanent housing and does not include staying ouside in a car, in a tent, in an abandoned building, in an overnight skilled nursing, or couch-surfing.) Yes 03/03/2024 Are you worried [...] on file Legal Sex Male 9:18 AM REGISTERED MASSAGE THERAPIST Gender Identity Not on file Sexual Orientation Not on file Last Filed Vital Signs Vital Sign Reading Time Taken Comments Blood Pressure 118/68 03/24/2024 3:42 PM REGISTERED MASSAGE THERAPIST Pulse 82 03/24/2024 3:42 PM REGISTERED MASSAGE THERAPIST Temperature 36.6 C (97.8 F) 03/24/2024 3:42 PM REGISTERED MASSAGE THERAPIST Respiratory Rate 16 03/24/2024 3:42 PM REGISTERED MASSAGE THERAPIST Oxygen Saturation 99% 03/24/2024 3:42 PM REGISTERED MASSAGE THERAPIST Inhaled Oxygen Concentration - - Weight 65.7 kg (144 lb 14.4 oz) 025 10:51 AM REGISTERED MASSAGE THERAPIST Height 188 cm (6' 2.02) 03/15/2024 10: 55 AM REGISTERED MASSAGE THERAPIST Body Mass Index 18.6 03/15/2024 10:55 AM REGISTERED MASSAGE THERAPIST Plan of Treatment Scheduled Procedures Name Priority Associated Diagnoses Date/Ti me SURGICAL EXTRACTION, TOOTH Chronic pericoronitis Health Maintenance Due Date Last Done Comments ADVANCE CARE PLANNING 2000 ANNUAL REVIEW OF HM ORDERS 2000 YEARLY PREVENTIVE VISIT 11/20/2023 11/20/19, 03/13/2021, 03/07/2020 DTAP/TDAP/TD IMMUNIZATION (7 - Td or Tdap) 11/19/2032 11/19/2022, 09/22/2012, 11/11/2004, Additional history exists ZOSTER IMMUNIZATION (1 of 2) 2050 Pneumococcal Vaccine: Pediatrics (0 to 5 Years) and At-Risk Patients (6 to 49 Years) Aged Out 04/21/2001, 01/12/2001, 2000 No longer eligible based on patient's age to complete this topic HEPATITIS B IMMUNIZATION Completed 002, 01/12/2001, 2000 MENINGITIS IMMUNIZATION Completed 02/23/19 18, 02/23/2017, 09/02/2015 HEPATITIS C SCREENING Completed 08/18/2020 HIV SCREENING Completed 08/18/2020 HPV IMMUNIZATION Completed 10/28/2020, , 10/19/2019 COVID-19 Vaccine Completed 11/02/2023, 11/2022, 02/18/2021, Additional history exists INFLUENZA VACCINE Completed 11/02/2023, , 04/16/2022, Additional history exists PHQ-2 (once per calendar year) Completed 02/09/2024 MENINGITIS B IMMUNIZATION Aged Out No longer eligible based on patient's age to complete this topic Procedures Procedure Name Priority Date/Time Associated Diagnosis Comments GLUCOSE BY METER Routine 03/13/2024 6:53 PM REGISTERED MASSAGE THERAPIST GLUCOSE BY METER Routine 03/13/2024 12:00 PM REGISTERED MASSAGE THERAPIST GLUCOSE BY METER Routine 03/13/2024 7:50 AM REGISTERED MASSAGE THERAPIST GLUCOSE BY METER Routine 03/13/2024 2:08 AM REGISTERED MASSAGE THERAPIST GLUCOSE BY METER Routine 03/12/2024 10:16 PM REGISTERED MASSAGE THERAPIST GLUCOSE BY METER Routine 03/12/2024 4:11 PM REGISTERED MASSAGE THERAPIST GLUCOSE BY METER Routine 03/12/2024 12:03 PM REGISTERED MASSAGE THERAPIST GLUCOSE BY METER Routine 03/12/2024 8:26 AM REGISTERED MASSAGE THERAPIST GLUCOSE BY METER Routine 03/12/2024 3:05 AM REGISTERED MASSAGE THERAPIST GLUCOSE BY METER Routine 03/11/2024 9:27 PM REGISTERED MASSAGE THERAPIST CT ABDOMEN PELVIS W/O CONTRAST STAT 0 03/11/2024 3:44 PM REGISTERED MASSAGE THERAPIST GLUCOSE BY METER Routine 03/11/2024 11:40 AM REGISTERED MASSAGE THERAPIST GLUCOSE BY METER Routine 03/11/2024 7:28 AM REGISTERED MASSAGE THERAPIST BASIC METABOLIC PANEL Routine 03/11/2024 5:36 AM REGISTERED MASSAGE THERAPIST PHOSPHORUS Routine 03/11/2024 5:36 AM REGISTERED MASSAGE THERAPIST MAGNESIUM Routine 03/11/2024 5:36 AM REGISTERED MASSAGE THERAPIST CBC WITH PLATELETS Routine 03/11/2024 5:36 AM REGISTERED MASSAGE THERAPIST GLUCOSE BY METER Routine 03/11/2024 2:10 AM REGISTERED MASSAGE THERAPIST GLUCOSE BY METER Routine 03/10/2024 9:34 PM REGISTERED MASSAGE THERAPIST GLUCOSE BY METER Routine 03/10/2024 3:35 PM REGISTERED MASSAGE THERAPIST GLUCOSE BY METER Routine 03/10/2024 1:13 PM REGISTERED MASSAGE THERAPIST GLUCOSE BY METER Routine 03/10/2024 8:50 AM REGISTERED MASSAGE THERAPIST GLUCOSE BY METER Routine 03/10/2024 7:00 AM REGISTERED MASSAGE THERAPIST BASIC METABOLIC PANEL Routine 03/10/2024 5:20 AM REGISTERED MASSAGE THERAPIST PHOSPHORUS Routine 03/10/2024 5:20 AM REGISTERED MASSAGE THERAPIST MAGNESIUM Routine 03/10/2024 5:20 AM REGISTERED MASSAGE THERAPIST CBC WITH PLATELETS Routine 03/10/2024 5:20 AM REGISTERED MASSAGE THERAPIST GLUCOSE BY METER Routine 03/09/2024 5:35 PM REGISTERED MASSAGE THERAPIST GLUCOSE BY METER Routine 03/09/2024 4:39 PM REGISTERED MASSAGE THERAPIST GLUCOSE BY METER Routine 03/09/2024 12:59 PM REGISTERED MASSAGE THERAPIST GLUCOSE BY METER Routine 03/09/2024 10:02 AM REGISTERED MASSAGE THERAPIST MAGNESIUM Routine 03/09/2024 5:35 AM REGISTERED MASSAGE THERAPIST PHOSPHORUS Routine 03/09/2024 5:35 AM REGISTERED MASSAGE THERAPIST BASIC METABOLIC PANEL Routine 03/09/2024 5:35 AM REGISTERED MASSAGE THERAPIST CBC WITH PLATELETS Routine 03/09/2024 5:35 AM REGISTERED MASSAGE THERAPIST GLUCOSE BY METER Routine 03/08/2024 10:09 PM REGISTERED MASSAGE THERAPIST CBC WITH PLATELETS & DIFFERENTIAL STAT 03/08/2024 5:28 PM REGISTERED MASSAGE THERAPIST CBC WITH PLATELETS AND DIFFERENTIAL STAT 03/08/2024 5:28 PM REGISTERED MASSAGE THERAPIST LACTIC ACID WHOLE BLOOD STAT 03/08/19 5:28 PM REGISTERED MASSAGE THERAPIST LIPASE STAT 03/08/2024 5:28 PM REGISTERED MASSAGE THERAPIST COMPREHENSIVE METABOLIC PANEL STAT 5:28 PM REGISTERED MASSAGE THERAPIST GLUCOSE BY METER Routine 03/08/2024 5:27 PM REGISTERED MASSAGE THERAPIST GLUCOSE BY METER Routine 03/08/2024 5:09 PM REGISTERED MASSAGE THERAPIST IR GASTRO JEJUNOSTOMY TUBE PLACEMENT Routine 03/08/2024 1:28 PM REGISTERED MASSAGE THERAPIST GLUCOSE BY METER Routine 03/08/2024 8:43 AM REGISTERED MASSAGE THERAPIST MAGNESIUM Routine 03/08/2024 5:15 AM REGISTERED MASSAGE THERAPIST PHOSPHORUS Routine 03/08/2024 5:15 AM REGISTERED MASSAGE THERAPIST HEPATIC FUNCTION PANEL Routine 5:15 AM REGISTERED MASSAGE THERAPIST BASIC METABOLIC PANEL Routine 03/08/2024 5:15 AM REGISTERED MASSAGE THERAPIST CBC WITH PLATELETS Routine 03/08/2024 5:15 AM REGISTERED MASSAGE THERAPIST GLUCOSE BY METER Routine 03/07/2024 9:16 PM REGISTERED MASSAGE THERAPIST GLUCOSE BY METER Routine 03/07/2024 5:56 PM REGISTERED MASSAGE THERAPIST GLUCOSE BY METER Routine 03/07/2024 11:51 AM REGISTERED MASSAGE THERAPIST GLUCOSE BY METER Routine 03/07/2024 8:21 AM REGISTERED MASSAGE THERAPIST HEPATIC FUNCTION PANEL Routine 8:09 AM REGISTERED MASSAGE THERAPIST MAGNESIUM Routine 03/07/2024 8:09 AM REGISTERED MASSAGE THERAPIST PHOSPHORUS Routine 03/07/2024 8:09 AM REGISTERED MASSAGE THERAPIST BASIC METABOLIC PANEL Routine 03/07/2024 8:09 AM REGISTERED MASSAGE THERAPIST CBC WITH PLATELETS Routine 03/07/2024 8:09 AM REGISTERED MASSAGE THERAPIST GLUCOSE BY METER Routine 03/06/2024 9:34 PM REGISTERED MASSAGE THERAPIST GLUCOSE BY METER Routine 03/06/2024 5:33 PM REGISTERED MASSAGE THERAPIST GLUCOSE BY METER Routine 03/06/2024 11:35 AM REGISTERED MASSAGE THERAPIST GLUCOSE BY METER Routine 03/06/2024 7:50 AM REGISTERED MASSAGE THERAPIST PHOSPHORUS Routine 03/06/2024 6:59 AM REGISTERED MASSAGE THERAPIST MAGNESIUM Routine 03/06/2024 6:59 AM REGISTERED MASSAGE THERAPIST CBC WITH PLATELETS Routine 03/06/2024 6:59 AM REGISTERED MASSAGE THERAPIST GLUCOSE BY METER Routine 03/06/2024 2:18 AM REGISTERED MASSAGE THERAPIST GLUCOSE BY METER Routine 03/05/2024 10:12 PM REGISTERED MASSAGE THERAPIST GLUCOSE BY METER Routine 03/05/2024 5:19 PM REGISTERED MASSAGE THERAPIST GLUCOSE BY METER Routine 03/05/2024 3:07 PM REGISTERED MASSAGE THERAPIST GLUCOSE BY METER Routine 03/05/2024 1:17 PM REGISTERED MASSAGE THERAPIST GLUCOSE BY METER Routine 03/05/2024 11:53 AM REGISTERED MASSAGE THERAPIST XR ABDOMEN PORT 1 VIEW Routine 11:20 AM REGISTERED MASSAGE THERAPIST GLUCOSE BY METER Routine 03/05/2024 8:46 AM REGISTERED MASSAGE THERAPIST PHOSPHORUS Routine 03/05/2024 5:20 AM REGISTERED MASSAGE THERAPIST MAGNESIUM Routine 03/05/2024 5:20 AM REGISTERED MASSAGE THERAPIST CBC WITH PLATELETS Routine 03/05/2024 5:20 AM REGISTERED MASSAGE THERAPIST BASIC METABOLIC PANEL Routine 03/05/2024 5:20 AM REGISTERED MASSAGE THERAPIST GLUCOSE BY METER Routine 03/04/2024 2:23 PM REGISTERED MASSAGE THERAPIST PHOSPHORUS Routine 03/04/2024 12:24 PM REGISTERED MASSAGE THERAPIST MAGNESIUM Routine 03/04/2024 12:24 PM REGISTERED MASSAGE THERAPIST BASIC METABOLIC PANEL Routine 03/04/2024 12:24 PM REGISTERED MASSAGE THERAPIST XR ABDOMEN 2 VIEWS Routine 03/03/2024 12:39 PM REGISTERED MASSAGE THERAPIST ESOPHAGOGASTRODUODENOSCOPY 03/03 10:25 AM REGISTERED MASSAGE THERAPIST Nausea UPPER GI ENDOSCOPY Routine 03/03/2024 9:51 AM REGISTERED MASSAGE THERAPIST US ABDOMEN LIMITED STAT 03/02/2024 9:45 PM REGISTERED MASSAGE THERAPIST CBC WITH PLATELETS & DIFFERENTIAL STAT 03/02/2024 8:19 PM REGISTERED MASSAGE THERAPIST EXTRA RED TOP TUBE STAT 03/02/2024 8:19 PM REGISTERED MASSAGE THERAPIST EXTRA BLUE TOP TUBE STAT 03/02/2024 8:19 PM REGISTERED MASSAGE THERAPIST CBC WITH PLATELETS AND DIFFERENTIAL STAT 03/02/2024 8:19 PM REGISTERED MASSAGE THERAPIST EXTRA TUBE STAT 03/02/2024 8:19 PM REGISTERED MASSAGE THERAPIST PHOSPHORUS STAT 03/02/2024 8:19 PM REGISTERED MASSAGE THERAPIST MAGNESIUM STAT 03/02/2024 8:19 PM REGISTERED MASSAGE THERAPIST HEPATIC FUNCTION PANEL STAT 8:19 PM REGISTERED MASSAGE THERAPIST BASIC METABOLIC PANEL STAT 03/02/2024 8:19 PM REGISTERED MASSAGE THERAPIST EKG 12-LEAD, TRACING ONLY STAT 2024 5:05 PM REGISTERED MASSAGE THERAPIST EKG CARDIAC - HIM SCAN 12:00 AM REGISTERED MASSAGE THERAPIST from Last 3 Months Results * (ABNORMAL) Glucose by meter (03/13/2024 6:53 PM REGISTERED MASSAGE THERAPIST) Only the most recent of42 resultswithin the time period is included. GLUCOSE BY METER POCT 102(H) 70 - 99 mg/dL 03/13/2024 7:00 PM REGISTERED MASSAGE THERAPIST LABORATORY POC Blood, Capillary BLOOD SPECIMEN / Unknown 03/13/2024 6:53 PM REGISTERED MASSAGE THERAPIST 03/13/2024 7:00 PM REGISTERED MASSAGE THERAPIST us Arie Carrion MD LAB - BEAKER POCT Final Resul t [facility] LABORATORY POC [facility] [address] Lab (1st floor, no room number) [place] [address], [facility] * CT Abdomen Pelvis w/o Contrast (03/11/2024 3:44 PM REGISTERED MASSAGE THERAPIST) Anatomical Region Laterality Modality Abdomen/Pelvis, SUBRAD CT ELIGIO DY, UMP CT ABDOMEN PELVIS, RAD CT Computed Tomography 03/11/2024 3:44 PM REGISTERED MASSAGE THERAPIST Impressions 03/11/2024 4:02 PM REGISTERED MASSAGE THERAPIST IMPRESSION: 1. No acute abnormalities in the abdomen or pelvis. 2. Expected positioning of a gastrojejunostomy tube. 3. Retained barium throughout the proximal colon. Narrative 03/11/2024 4:02 PM REGISTERED MASSAGE THERAPIST EXAM: CT ABDOMEN PELVIS W/O CONTRAST LOCATION: [facility] DATE: 03/11/2024 INDICATION: abdominal pain, s p G J tube placement COMPARISON: None. TECHNIQUE: CT scan of the abdomen and pelvis was performed without IV contrast. Multiplanar reformats were obtained. Dose reduction techniques were used. CONTRAST: None. FINDINGS: LOWER CHEST: Basilar atelectasis. Limited evaluation of solid organs given lack of intravenous contrast. HEPATOBILIARY: Normal liver contours. No biliary dilation. Normal gallbladder. PANCREAS: Normal contours. SPLEEN: Normal contours. ADRENAL GLANDS: Normal contours. KIDNEYS/BLADDER: Normal unenhanced contours. No hydronephrosis. Distended urinary bladder. BOWEL: Appropriately positioned gastrojejunostomy tube. No obstruction. Normal appendix. Retained barium is seen throughout the colon. No bowel wall thickening or pneumatosis. No pneumoperitoneum. LYMPH NODES: No pathologically enlarged lymph nodes. VASCULATURE: Nonaneurysmal aorta. PELVIC ORGANS: No pelvic masses. MUSCULOSKELETAL: No acute osseous abnormalities. Procedure Note Seht Davis MD - 03/11/2024 EXAM: CT ABDOMEN PELVIS W/O CONTRAST LOCATION: [facility] DATE: 03/11/2024 INDICATION: abdominal pain, s p G J tube placement COMPARISON: None. TECHNIQUE: CT scan of the abdomen and pelvis was performed without IVcontrast. Multiplanar reformats were obtained. Dose reduction techniqueswere used. CONTRAST: None. FINDINGS: LOWER CHEST: Basilar atelectasis. Limited evaluation of solid organs given lack of intravenous contrast. HEPATOBILIARY: Normal liver contours. No biliary dilation. Normalgallbladder. PANCREAS: Normal contours. SPLEEN: Normal contours. ADRENAL GLANDS: Normal contours. KIDNEYS/BLADDER: Normal unenhanced contours. No hydronephrosis. Distendedurinary bladder. BOWEL: Appropriately positioned gastrojejunostomy tube. No obstruction.Normal appendix. Retained barium is seen throughout the colon. No bowelwall thickening or pneumatosis. No pneumoperitoneum. LYMPH NODES: No pathologically enlarged lymph nodes. VASCULATURE: Nonaneurysmal aorta. PELVIC ORGANS: No pelvic masses. MUSCULOSKELETAL: No acute osseous abnormalities. IMPRESSION: 1. No acute abnormalities in the abdomen or pelvis. 2. Expected positioning of a gastrojejunostomy tube. 3. Retained barium throughout the proximal colon. Quincy Rouse MD IMG CT ORDERABLES Final Resul t * (ABNORMAL) Phosphorus (03/11/2024 5:36 AM REGISTERED MASSAGE THERAPIST) Only the most recent of9 resultswithin the time period is included. Phosphorus 4.7(H) 2.5 - 4.5 mg/dL 03/11/2024 6:32 AM REGISTERED MASSAGE THERAPIST LABORATORY Blood STRUCTURE OF LEFT UPPER LIMB / Unknown Venipuncture / Unknown 03/11/2024 5:36 AM REGISTERED MASSAGE THERAPIST 03/11/2024 6:08 AM REGISTERED MASSAGE THERAPIST Ginger Barrett PA-C LAB - BLOOD ORDERABLES nal Result [facility] Lab [address] [facility] Lab (1st floor, no room number) [place] [address], [facility] * Magnesium (03/11/2024 5:36 AM REGISTERED MASSAGE THERAPIST) Only the most recent of9 resultswithin the time period is included. Magnesium 1.9 1.7 - 2.3 mg/dL 03/11/2024 6:32 AM REGISTERED MASSAGE THERAPIST LABORATORY Blood STRUCTURE OF LEFT UPPER LIMB / Unknown Venipuncture / Unknown 03/11/2024 5:36 AM REGISTERED MASSAGE THERAPIST 03/11/2024 6:08 AM REGISTERED MASSAGE THERAPIST Ginger BRYSON-C LAB - BLOOD ORDERABLES Fi nal Result [facility] Lab [address] Lab (1st floor, no room number) [place] [address], [facility] * (ABNORMAL) Basic metabolic panel (03/11/2024 5:36 AM REGISTERED MASSAGE THERAPIST) Only the most recent of8 resultswithin the time period is included. [facility] Sodium 140 135 - 145 mmol/L 03/11/2024 6:32 AM [facility] Potassium 3.7 3.4 - 5.3 mmol/L 03/11/2024 6:32 AM [facility] Chloride 101 98 - 107 mmol/L 03/11/2024 6:32 AM [facility] Carbon Dioxide (CO2) 27 22 - 29 mmol/L 03/11/2024 6:32 AM [facility] Anion Gap 12 7 - 15 mmol/L 03/11/2024 6:32 AM [facility] Urea Nitrogen 10.9 6.0 - 20.0 mg/dL 03/11/2024 6:32 AM [facility] Creatinine 0.88 0.67 - 1.17 mg/dL 03/11/2024 6:32 AM [facility] GFR Estimate >90 >60 mL/min/1.7 3m2 03/11/2024 6:32 AM [facility] Comment:eGFR calculated [facility] 2020 CKD-EPI equation. Calcium 9.1 8.8 - 10.4 mg/dL 03/11/2024 6:32 AM [facility] Glucose 101(H) 70 - 99 mg/dL 03/11/2024 6:32 AM [facility] Blood STRUCTURE OF LEFT UPPER LIMB / Unknown Venipuncture / Unknown 03/11/2024 5:36 AM REGISTERED MASSAGE THERAPIST 03/11/2024 6:08 AM REGISTERED MASSAGE THERAPIST Ginger Barrett PA-C LAB - BLOOD ORDERABLES Fi nal Result [facility] [address] Lab (1st floor, no room number) [place] [address] * (ABNORMAL) CBC with platelets (03/11/2024 5:36 AM REGISTERED MASSAGE THERAPIST) Only the most recent of7 resultswithin the time period is included. WBC Count 7.2 4.0 - 11.0 10e3/uL 03/11/2024 6:14 AM REGISTERED MASSAGE THERAPIST [facility] RBC Count 4.71 4.40 - 5.90 10e6/uL 03/11/2024 6:14 AM REGISTERED MASSAGE THERAPIST [facility] Hemoglobin 13.7 13.3 - 17.7 g/dL 03/11/2024 6:14 AM REGISTERED MASSAGE THERAPIST [facility] Hematocrit 39.9(L) 40.0 - 53.0 % 03/11/2024 6:14 AM REGISTERED MASSAGE THERAPIST [facility] MCV 85 78 - 100 fL 03/11/2024 6:14 AM REGISTERED MASSAGE THERAPIST [facility] MCH 29.1 26.5 - 33.0 pg 03/11/2024 6:14 AM REGISTERED MASSAGE THERAPIST LABORATORY MCHC 34.3 31.5 - 36.5 g/dL 03/11/2024 6:14 AM REGISTERED MASSAGE THERAPIST [facility] RDW 11.6 10.0 - 15.0 % 03/11/2024 6:14 AM REGISTERED MASSAGE THERAPIST [facility] Platelet Count 208 150 - 450 10e3/uL 03/11/2024 6:14 AM REGISTERED MASSAGE THERAPIST LABORATORY Blood STRUCTURE OF LEFT UPPER LIMB / Unknown Venipuncture / Unknown 03/11/2024 5:36 AM REGISTERED MASSAGE THERAPIST 03/11/2024 6:08 AM REGISTERED MASSAGE THERAPIST Alexandria Loza PA-C LAB - BLOOD ORDERABL ES Final Result [facility] Acute Care Lab [address] Lab (1st floor, no room number) [place] [address] * CBC with platelets and differential (03/08/2024 5:28 PM REGISTERED MASSAGE THERAPIST) Only the most recent of2 resultswithin the time period is included. WBC Count 8.5 4.0 - 11.0 10e3/uL 03/08/2024 5:53 PM REGISTERED MASSAGE THERAPIST [facility] RBC Count 5.08 4.40 - 5.90 10e6/uL 03/08/2024 5:53 PM REGISTERED MASSAGE THERAPIST [facility] Hemoglobin 15.0 13.3 - 17.7 g/dL 03/08/2024 5:53 PM REGISTERED MASSAGE THERAPIST [facility] Hematocrit 43.5 40.0 - 53.0 % 03/08/2024 5:53 PM REGISTERED MASSAGE THERAPIST [facility] MCV 86 78 - 100 fL 03/08/2024 5:53 PM REGISTERED MASSAGE THERAPIST [facility] MCH 29.5 26.5 - 33.0 pg 03/08/2024 5:53 PM REGISTERED MASSAGE THERAPIST [facility] MCHC 34.5 31.5 - 36.5 g/dL 03/08/2024 5:53 PM REGISTERED MASSAGE THERAPIST [facility] RDW 11.9 10.0 - 15.0 % 03/08/2024 5:53 PM REGISTERED MASSAGE THER[employer] Platelet Count 169 150 - 450 10e3/uL 03/08/2024 5:53 PM REGISTERED MASSAGE THER[facility] % Neutrophils 84 % 03/08/2024 5:53 PM REGISTERED MASSAGE THERAP[facility] % Lymphocytes 10 % 03/08/2024 5:53 PM REGISTERED MASSAGE [facility] % Monocytes 4 % 03/08/2024 5:53 PM REGISTERED MASSAGE THERAP[facility] % Eosinophils 1 % 03/08/2024 5:53 PM REGISTERED MASSAGE THERAPIST [facility] % Basophils 0 % 03/08/2024 5:53 PM REGISTERED MASSAGE THERAPIST [facility] % Immature Granulocytes 0 % 03/08/2024 5:53 PM REGISTERED MASSAGE THERAPIST [facility] NRBCs per 100 WBC 0 <1 /100 025 5:53 PM REGISTERED MASSAGE THERAPIST [facility] Absolute Neutrophils 7.1 1.6 - 8.3 10e3/uL 03/08/2024 5:53 PM REGISTERED MASSAGE THERAPIST [facility] Absolute Lymphocytes 0.9 0.8 - 5.3 10e3/uL 03/08/2024 5:53 PM REGISTERED MASSAGE THERAPIST [facility] Absolute Monocytes 0.4 0.0 - 1.3 10e3/uL 03/08/2024 5:53 PM REGISTERED MASSAGE THERAPIST [facility] Absolute Eosinophils 0.1 0.0 - 0.7 10e3/uL 03/08/2024 5:53 PM REGISTERED MASSAGE THERAPIST [facility] Absolute Basophils 0.0 0.0 - 0.2 10e3/uL 03/08/2024 5:53 PM REGISTERED MASSAGE THERAPIST [facility] Absolute Immature Granulocytes 0.0 <=0.4 10e3/uL 03/08/2024 5:53 PM REGISTERED MASSAGE THERAPIST [facility] Absolute NRBCs 0.0 10e3/uL 03/08/2024 5:53 PM REGISTERED MASSAGE THERAPIST [facility] Blood STRUCTURE OF LEFT UPPER LIMB / Unknown Venipuncture / Unknown 03/08/2024 5:28 PM REGISTERED MASSAGE THERAPIST 03/08/2024 5:33 PM REGISTERED MASSAGE THERAPIST us Margarita Medina MD LAB - BLOOD ORDERABLES Fi nal Result [facility] [address] Lab (1st floor, no room number) [place] [phone] * (ABNORMAL) Lipase (03/08/2024 5:28 PM REGISTERED MASSAGE THERAPIST) Lipase 95(H) 13 - 60 U/L 03/08/2024 6:29 PM REGISTERED MASSAGE THERAPIST [facility] Blood STRUCTURE OF LEFT UPPER LIMB / Unknown Venipuncture / Unknown 03/08/2024 5:28 PM REGISTERED MASSAGE THERAPIST 03/08/2024 5:33 PM REGISTERED MASSAGE THERAPIST us Margarita Medina MD LAB - BLOOD ORDERABLES Fi nal Result Performing Organization Address City/[facility]/ZIP Co de Phone Number [facility] [address] Lab (1st floor, no room number) [place] [phone] [place] [address] * Lactic acid whole blood (03/08/2024 5:28 PM REGISTERED MASSAGE THERAPIST) Lactic Acid 2.0 0.7 - 2.0 mmol/L 03/08/2024 5:36 PM REGISTERED MASSAGE THERAPIST LABORATORY Blood STRUCTURE OF LEFT UPPER LIMB / Unknown Venipuncture / Unknown 03/08/2024 5:28 PM REGISTERED MASSAGE THERAPIST 03/08/2024 5:33 PM REGISTERED MASSAGE THERAPIST us Margarita Medina MD LAB - BLOOD ORDERABLES Fi nal Result [facility] [address] Lab (1st floor, no room number) [place] [address], [facility] * (ABNORMAL) Comprehensive metabolic panel (03/08/2024 5:28 PM [facility]) Sodium 139 135 - 145 mmol/L 03/08/2024 6:29 PM [facility] Potassium 3.8 3.4 - 5.3 mmol/L 03/08/2024 6:29 PM [facility] Carbon Dioxide (CO2) 26 22 - 29 mmol/L 03/08/2024 6:29 PM [facility] Anion Gap 13 7 - 15 mmol/L 03/08/2024 6:29 PM [facility] Urea Nitrogen 10.7 6.0 - 20.0 mg/dL 03/08/2024 6:29 PM [facility] Creatinine 0.95 0.67 - 1.17 mg/dL 03/08/2024 6:29 PM [facility] GFR Estimate >90 >60 mL/min/1.7 3m2 03/08/2024 6:29 PM [facility] Comment:eGFR calculated usin g 2020 CKD-EPI equation. Calcium 9.3 8.8 - 10.4 mg/dL 03/08/2024 6:29 PM [facility] Chloride 100 98 - 107 mmol/L 03/08/2024 6:29 PM [facility] Glucose 179(H) 70 - 99 mg/dL 03/08/2024 6:29 PM [facility] Alkaline Phosphatase 60 40 - 150 U/L 03/08/2024 6:29 PM [facility] AST 16 0 - 45 U/L 03/08/2024 6:29 PM [facility] ALT 8 0 - 70 U/L 03/08/2024 6:29 PM [facility] Protein Total 6.7 6.4 - 8.3 g/dL 03/08/2024 6:29 PM [facility] Albumin 4.2 3.5 - 5.2 g/dL 03/08/2024 6:29 PM [facility] Bilirubin Total 0.8 <=1.2 mg/dL 03/08/2024 6:29 PM [facility] Blood STRUCTURE OF LEFT UPPER LIMB / Unknown Venipuncture / Unknown 03/08/2024 5:28 PM REGISTERED MASSAGE THERAPIST 03/08/2024 5:33 PM REGISTERED MASSAGE THERAPIST us Margarita Medina MD LAB - BLOOD ORDERABLES Fi nal Result [facility] [address] Lab (1st floor, no room number) [place] [address], [facility] * IR Gastro Jejunostomy Tube Placement (03/08/2024 1:28 PM REGISTERED MASSAGE THERAPIST) Anatomical Region Laterality Modality Abdomen/Pelvis Radio Fluoroscop y, Radio Fluoroscopy 03/08/2024 1:28 PM REGISTERED MASSAGE THERAPIST Impressions 03/08/2024 3:15 PM REGISTERED MASSAGE THERAPIST IMPRESSION: Successful percutaneous gastrojejunostomy placement. Narrative 03/08/2024 3:15 PM REGISTERED MASSAGE THERAPIST [facility] LOCATION: [facility] DATE: 03/08/2024 PROCEDURE: 1. PERCUTANEOUS GASTROJEJUNOSTOMY PLACEMENT 2. 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 The patient is in need of postpyloric enteric nutrition and presents to interventional radiology for placement of a percutaneous gastrojejunostomy tube. CONSENT: The risks, benefits and alternatives of gastrojejunostomy tube placement were discussed with the patient in detail. All questions were answered. Informed consent was given to proceed with the procedure. MODERATE SEDATION: Versed 4 mg IV; Fentanyl 150 mcg IV. During the time out, immediately prior to the administration of medications, the patient was reassessed for adequacy to receive conscious sedation. Under physician supervision, Versed and fentanyl were administered for moderate sedation. Pulse oximetry, heart rate and blood pressure were continuously monitored by an independent trained observer. The physician spent 16 minutes of pueo-ti-iapy sedation time with the patient. CONTRAST: 30 mL Omnipaque intraenteric. ANTIBIOTICS: None. ADDITIONAL MEDICATIONS: None. FLUOROSCOPIC TIME: 6 minutes. RADIATION DOSE: Air Kerma: 34 mGy. COMPLICATIONS: No immediate complications. STERILE BARRIER TECHNIQUE: Maximum sterile barrier technique was used. Cutaneous antisepsis was performed at the operative site with application of 2% chlorhexidine and large sterile drape. Prior to the procedure, the v block saw operator and assistant activities director performed hand hygiene and wore hat, mask, sterile gown, and sterile gloves during the entire procedure. PROCEDURE/TECHNIQUE: A nasogastric tube was advanced until the tip was in the stomach. Adequate position was confirmed with fluoroscopy. Ultrasound examination of the epigastric region was performed to localize the left hepatic edge, which was marked on the patient's skin. The stomach was then insufflated with air. Under fluoroscopic guidance, two point gastropexy was performed with intragastric positioning confirmed with a small amount of contrast. Using an additional puncture between the gastropexy sites, a guidewire was placed into the stomach. A catheter and wire were manipulated through the gastric pylorus and duodenum and positioned in the proximal jejunum. Following tract dilatation, an 18 Chadian, 45 cm, gastrojejunostomy tube was advanced until the tip was in the proximal jejunum. The retention balloon was inflated. A post placement injection of both the gastric and jejunal ports was performed. FINDINGS: The procedural images demonstrate that following placement the gastric port is within the stomach and distal jejunal port is near the ligament of Treitz. Procedure Note Mateusz Sanchez MD - 03/08/2024 [facility] LOCATION: [facility] DATE: 03/08/2024 PROCEDURE: 1. PERCUTANEOUS GASTROJEJUNOSTOMY PLACEMENT 2. 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 The patient is inneed of postpyloric enteric nutrition and presents to interventionalradiology for placement of a percutaneous gastrojejunostomy tube. CONSENT: The risks, benefits and alternatives of gastrojejunostomy tubeplacement were discussed with the patient in detail. All questions wereanswered. Informed consent was given to proceed with the procedure. MODERATE SEDATION: Versed 4 mg IV; Fentanyl 150 mcg IV. During the timeout, immediately prior to the administration of medications, the patientwas reassessed for adequacy to receive conscious sedation. Underphysician supervision, Versed and fentanyl were administered for moderate sedation. Pulse oximetry, heart rate andblood pressure were continuously monitored by an independent trainedobserver. The physician spent 16 minutes of dzni-ir-zgij sedation timewith the patient. CONTRAST: 30 mL Omnipaque intraenteric. ANTIBIOTICS: None. ADDITIONAL MEDICATIONS: None. FLUOROSCOPIC TIME: 6 minutes. RADIATION DOSE: Air Kerma: 34 mGy. COMPLICATIONS: No immediate complications. STERILE BARRIER TECHNIQUE: Maximum sterile barrier technique was used.Cutaneous antisepsis was performed at the operative site with applicationof 2% chlorhexidine and large sterile drape. Prior to the procedure, theoperator and assistant activities director performed hand hygiene and wore hat, mask, sterile gown, and sterile gloves duringthe entire procedure. PROCEDURE/TECHNIQUE: A nasogastric tube was advanced until the tip was in the stomach. Adequateposition was confirmed with fluoroscopy. Ultrasound examination of the epigastric region was performed to localizethe left hepatic edge, which was marked on the patient's skin. The stomachwas then insufflated with air. Under fluoroscopic guidance, two pointgastropexy was performed with intragastric positioning confirmed with a small amount of contrast. Usingan additional puncture between the gastropexy sites, a guidewire wasplaced into the stomach. A catheter and wire were manipulated through thegastric pylorus and duodenum and positioned in the proximal jejunum. Following tract dilatation, an 18French, 45 cm, gastrojejunostomy tube was advanced until the tip was inthe proximal jejunum. The retention balloon was inflated. A post placementinjection of both the gastric and jejunal ports was performed. FINDINGS: The procedural images demonstrate that following placement the gastricport is within the stomach and distal jejunal port is near the ligament ofTreitz. IMPRESSION: Successful percutaneous gastrojejunostomy placement. us Margarita Medina MD IMG IR ORDERABLES Final R esult * Hepatic function panel (03/08/2024 5:15 AM REGISTERED MASSAGE THERAPIST) Only the most recent of3 resultswithin the time period is included. Protein Total 6.4 6.4 - 8.3 g/dL 03/08/2024 5:54 AM REGISTERED MASSAGE THERAPIST [facility] Albumin 4.2 3.5 - 5.2 g/dL 03/08/2024 5:54 AM REGISTERED MASSAGE THERAPIST [facility] Bilirubin Total 0.7 <=1.2 mg/dL 03/08/2024 5:54 AM REGISTERED MASSAGE THERAPIST [facility] Alkaline Phosphatase 58 40 - 150 U/L 03/08/2024 5:54 AM REGISTERED MASSAGE THERAPIST [facility] AST 11 0 - 45 U/L 03/08/2024 5:54 AM REGISTERED MASSAGE THERAPIST [facility] ALT 7 0 - 70 U/L 03/08/2024 5:54 AM REGISTERED MASSAGE THERAPIST LABORATORY Bilirubin Direct <0.20 0.00 - 0.30 mg/dL 03/08/2024 5:54 AM REGISTERED MASSAGE THERAPIST LABORATORY Blood STRUCTURE OF LEFT UPPER LIMB / Unknown Venipuncture / Unknown 03/08/2024 5:15 AM REGISTERED MASSAGE THERAPIST 03/08/2024 5:21 AM REGISTERED MASSAGE THERAPIST us Margarita Medina MD LAB - BLOOD ORDERABLES Fi nal Result LABORATORY [facility] [address] Lab (1st floor, no room number) [place] [address] * XR Abdomen Port 1 View (03/05/2024 11:20 AM REGISTERED MASSAGE THERAPIST) Anatomical Region Laterality Modality Abdomen/Pelvis Digital Radiogra phy 03/05/2024 11:2 0 AM REGISTERED MASSAGE THERAPIST Impressions 03/05/2024 11:21 AM REGISTERED MASSAGE THERAPIST IMPRESSION: NG tube tip in distal duodenum. Narrative 03/05/2024 11:21 AM REGISTERED MASSAGE THERAPIST EXAM: XR ABDOMEN PORT 1 VIEW LOCATION: [facility] DATE: 03/05/2024 INDICATION: Cheque location for [place] placement post Pyloric COMPARISON: None. Procedure Note Kwame Lombardo MD - 03/05/2024 EXAM: XR ABDOMEN PORT 1 VIEW LOCATION: [facility] DATE: 03/05/2024 INDICATION: Cheque location for [place] placement post Pyloric COMPARISON: None. IMPRESSION: NG tube tip in distal duodenum. us Mirna Oglesby PA-C IMG DIAGNOSTIC IMAGING O RDERABLES Final Result * XR Abdomen 2 Views (03/03/2024 12:39 PM REGISTERED MASSAGE THERAPIST) Anatomical Region Laterality Modality Abdomen/Pelvis Digital Radiogra phy 03/03/2024 12:3 9 PM REGISTERED MASSAGE THERAPIST Impressions 03/03/2024 5:01 PM REGISTERED MASSAGE THERAPIST IMPRESSION: Small amount of stool from the descending colon to rectum. Bowel gas pattern is normal. No evidence for obstruction or free air. No evidence for renal stones. Narrative 03/03/2024 5:01 PM REGISTERED MASSAGE THERAPIST EXAM: XR ABDOMEN 2 VIEWS LOCATION: [facility] DATE: 03/03/2024 INDICATION: nausea, assess fecal load COMPARISON: None. Procedure Note Mukesh Blackwell MD - 03/03/2024 EXAM: XR ABDOMEN 2 VIEWS LOCATION: [facility] DATE: 03/03/2024 INDICATION: nausea, assess fecal load COMPARISON: None. IMPRESSION: Small amount of stool from the descending colon to rectum. Bowel gaspattern is normal. No evidence for obstruction or free air. No evidencefor renal stones. us Manuela Ramos MD IM DIAGNOSTIC IMAGING ORDERABLES Final Result * UPPER GI ENDOSCOPY (03/03/2024 9:51 AM REGISTERED MASSAGE THERAPIST) Upper GI Endoscopy [facility] ___ Patient Name: Paramjit Boyce Procedure Date: 03/03/2024 9:51 AM Date of : 2000 Admit Type: Outpatient Age: 23 Gender: Male Attending MD: MANUELA RAMOS MD, Total Sedation Time: 10 min Instrument Name: [id number] Gastroscope ___ Procedure: Upper GI endoscopy Indications: Nausea Providers: MANUELA RAMOS MD (Doctor) Referring MD: Medicines: Fentanyl 100 micrograms IV, Midazolam 4 mg IV, Benzocaine spray Complications: No immediate complications. ___ Procedure: Pre-Anesthesia Assessment: - Prior to the procedure, a History and Physical was performed, and patient medications and allergies were reviewed. The patient is competent. The risks and benefits of the procedure and the sedation options and risks were discussed with the patient. All questions were answered and informed consent was obtained. Patient identification and proposed procedure were verified by the physician and the nurse in the procedure room. Mental Status Examination: alert and oriented. Airway Examination: normal oropharyngeal airway and neck mobility. Respiratory Examination: clear to auscultation. CV Examination: normal. Prophylactic Antibiotics: The patient does not require prophylactic antibiotics. Prior Anticoagulants: The patient has taken no anticoagulant or antiplatelet agents. ASA Grade Assessment: III - A patient with severe systemic disease. After reviewing the risks and benefits, the patient was deemed in satisfactory condition to undergo the procedure. The anesthesia plan was to use moderate sedation / analgesia (conscious sedation). Immediately prior to administration of medications, the patient was re-assessed for adequacy to receive sedatives. The heart rate, respiratory rate, oxygen saturations, blood pressure, adequacy of pulmonary ventilation, and response to care were monitored throughout the procedure. The physical status of the patient was re-assessed after the procedure. After obtaining informed consent, the endoscope was passed under direct vision. Throughout the procedure, the patient's blood pressure, pulse, and oxygen saturations were monitored continuously. The Olympus Gastrointestinal Videoscope, Model #GIF-1100, Censitrac #[id number], SN# [id number] was introduced through the mouth, and advanced to the third part of duodenum. The upper GI endoscopy was accomplished without difficulty. The patient tolerated the procedure well. Findings: The Z-line was regular and was found 41 cm from the incisors. The entire examined stomach was normal. The examined duodenum was normal. Impression: - Z-line regular, 41 cm from the incisors. - Normal stomach. - Normal examined duodenum. - No specimens collected. Recommendation: Outpatient GI follow up with motility specialist Diet as tolerated Scheduled reglan, as needed Ativan Procedure Code(s): --- Professional --- 77512, Esophagogastroduode noscopy, flexible, transoral; diagnostic, including collection of specimen(s) by brushing or washing, when performed (separate procedure) CPT copyright 2021 [employer]. All rights reserved. The codes documented in this report are preliminary and upon preparation department supervisor review may be revised to meet current compliance requirements. Electonically signed by Manuela Ramos MD MANUELA RAMOS MD 03/03/2024 10:50:29 AM I was physically present for the entire viewing portion of the exam. MANUELA RAMOS MD Number of Addenda: 0 Note Initiated On: 03/03/2024 9:51 AM Procedure Date: 03/03/2024 9:51:49 AM Total Procedure Duration: 0 hours 0 minutes 58 seconds Estimated Blood Loss: 0 ml Scope In: 10:43:37 AM Scope Out: 10:44:35 AM RADIOLOGY RESULTS 03/03/2024 9:51 AM REGISTERED MASSAGE THERAPIST us Manuela Ramos MD PROCEDURES Final R esult RADIOLOGY RESULTS * US Abdomen Limited (RUQ) (03/02/2024 9:45 PM REGISTERED MASSAGE THERAPIST) Anatomical Region Laterality Modality Abdomen/Pelvis Ultrasound 03/02/2024 9:45 PM REGISTERED MASSAGE THERAPIST Impressions 03/02/2024 10:02 PM REGISTERED MASSAGE THERAPIST IMPRESSION: 1. Normal limited abdominal ultrasound. No cholelithiasis and no evidence for acute cholecystitis. Narrative 03/02/2024 10:02 PM REGISTERED MASSAGE THERAPIST EXAM: US ABDOMEN LIMITED LOCATION: [facility] DATE: 03/02/2024 INDICATION: post prandial epigastric abdominal pain nausea vomiting COMPARISON: None. TECHNIQUE: Limited abdominal ultrasound. FINDINGS: GALLBLADDER: Normal. No gallstones, wall thickening, or pericholecystic fluid. Negative sonographic Frazier's sign. BILE DUCTS: No biliary dilatation. The common duct measures 4 mm. LIVER: Normal parenchyma with smooth contour. No focal mass. RIGHT KIDNEY: No hydronephrosis. PANCREAS: The visualized portions are normal. No ascites. Procedure Note Mika Edwards MD - 03/02/2024 EXAM: US ABDOMEN LIMITED LOCATION: [facility] DATE: 03/02/2024 INDICATION: post prandial epigastric abdominal pain nausea vomiting COMPARISON: None. TECHNIQUE: Limited abdominal ultrasound. FINDINGS: GALLBLADDER: Normal. No gallstones, wall thickening, or pericholecysticfluid. Negative sonographic Frazier's sign. BILE DUCTS: No biliary dilatation. The common duct measures 4 mm. LIVER: Normal parenchyma with smooth contour. No focal mass. RIGHT KIDNEY: No hydronephrosis. PANCREAS: The visualized portions are normal. No ascites. IMPRESSION: 1. Normal limited abdominal ultrasound. No cholelithiasis and no evidencefor acute cholecystitis. us Olu Yeh DO IMG US ORDERABLES Final Result * Extra Red Top Tube (03/02/2024 8:19 PM REGISTERED MASSAGE THERAPIST) Hold Specimen [facility] 03/02/2024 9:31 PM REGISTERED MASSAGE THERAPIST LABORATORY Blood STRUCTURE OF RIGHT UPPER LIMB / Unknown Venipuncture / Unknown 03/02/2024 8:19 PM REGISTERED MASSAGE THERAPIST 03/02/2024 8:31 PM REGISTERED MASSAGE THERAPIST us Mobeetie Yeh DO LAB - BLOOD ORDERABLES Final Res ult [facility] [address] Lab (1st floor, no room number) [place] [address], [facility] * Extra Blue Top Tube (03/02/2024 8:19 PM REGISTERED MASSAGE THERAPIST) Hold Specimen [facility] 03/02/2024 9:31 PM REGISTERED MASSAGE THERAPIST LABORATORY Blood STRUCTURE OF RIGHT UPPER LIMB / Unknown Venipuncture / Unknown 03/02/2024 8:19 PM REGISTERED MASSAGE THERAPIST 03/02/2024 8:31 PM REGISTERED MASSAGE THERAPIST us Mobeetie Yeh DO LAB - BLOOD ORDERABLES Final Res ult [facility] [address] Lab (1st floor, no room number) [place] [address], [facility] * EKG 12 lead (03/02/2024 5:05 PM REGISTERED MASSAGE THERAPIST) Systolic Blood Pressure mmHg RADIOLOGY RESULTS Diastolic Blood Pressure mmHg RADIOLOGY RESULTS Ventricular Rate 108 BPM RAD IOLOGY RESULTS Atrial Rate 108 BPM RADIOLOG Y RESULTS NC Interval 148 ms RADIOLOG Y RESULTS QRS Duration 84 ms RADIOLO GY RESULTS QT 318 ms RADIOLOGY RESULTS QTc 426 ms RADIOLOGY RESULTS P [place] 63 degrees RADIOLOGY RESULTS R AXIS 112 degrees RADIOLOGY RESULTS T [place] 32 degrees RADIOLOGY RESULTS Interpretation ECG Sinus tachycardia Biatrial enlargement Right axis deviation Pulmonary disease pattern Right ventricular hypertrophy Abnormal ECG No previous ECGs available Unconfirmed report - interpretation of this ECG is computer generated - see medical record for final interpretation Confirmed by - EMERGENCY ROOM, PHYSICIAN ([id number]), graphics editor NOELLE DOOLEY ([id number]) on 03/05/2024 8:28:34 AM RADIOLOGY RESULTS 03/02/2024 5:05 PM REGISTERED MASSAGE THERAPIST 03/05/2024 8:28 AM REGISTERED MASSAGE THERAPIST us Olu Yeh DO ECG ORDERABLES Edited Result - Final RADIOLOGY RESULTS * EKG Cardiac - HIM Scan (03/02/2024 12:00 AM REGISTERED MASSAGE THERAPIST) 03/02/2024 us Provider Outside ECG ORDERABLES Final Result from Last 3 Months Insurance [employer] [facility] [employer] Advance Directives For more information, please contact: [phone] * Full Code (Latest Code Status on File) Date Activated Date Inactivated Comments 03/03/2024 12:32 AM 03/14/2024 4:32 PM All basic an d advanced life-sustaining interventions are performed as appropriate Question Answer Comments Code status determined by: Discussion with patie nt/ legal decision maker Care Teams Materials Branch Chief Relationship Specialty Start Date End Date Eliana Guerra MD [address] [place] [address] [id number] PCP - General Family Medicine 03/04/24 Kei Eugene MD [address] [place] [address] [id number] Assigned Musculoskeletal Provider 03/01/24 Eliana Guerra MD [address] [place] [address] Home Infusion Following Provider Family Medicine 03/11/24 Eliana Guerra MD [facility] [address] [place] [address] Home Infusion Following Provider Family Medicine 03/14/[address] [facility] Registered Dietitian Dietitian 03/14/24
--- OUTSIDE RECORDS SUMMARY | 2024-05-17 19:33 | XMS_ITS | Encounter Summary ---
Author Organization [facility] [employer] Address [address], [place] [address] Care Team Providers Care Collection Systems Administrator Name Role Phone Eliana Guerra MD Primary Care Provider [phone] Reason for Visit * Auth/Cert Specialty Diagnoses / Procedures Referred By Contac t Referred To Contact Diagnoses Peroneal tendinitis of right lower extremity . Procedures Repair dislocation peroneal tendons with fibular groove deepening and longus to brevis tenodesis LENGTHENING GASTROCNEMIUS EXCISION EXOSTOSIS ANKLE Referral ID Status Reason Start Date Expiration Date Visits Re quested Visits Authorized [id number] 1 1 Encounter Details Date Type Department Care Team (Late st Contact Info) Description 04/27/2024 10:18 AM CDT Anesthesia Event [facility] Operating Room [address] [place] [id number] Karen Castrejon MD [address] [place] [address] David Epstein MD [address] [place] [id number] Anesthesia Record Procedure Summary Procedure Name Responsible Anesthesiologist Anesthesia Start Time Anesthesia Stop Time Repair dislocation peroneal tendons with fibular groove deepening and longus to brevis tenodesis (Right) Karen Castrejon MD 04/27/24 1018 04/27/24 1319 Events Date Time Event Comment 04/27/2024 1018 1018 An Start 1022 An Start Data 1028 / Present 1028 An Induction 1033 MD/DO Present 1033 An Intubation 1104 An Tourn Inflated 1105 Quick Note BP cuff on elev ated arm 1120 MD/DO Present 1121 Quick Note BP cuff changed to L (dependent) arm. 1138 MD/DO Present 1254 An Local Anesthetic By Surge on 1258 An Tourn Deflated 1314 An Extubation Purposeful mov ement with spontaneous respirations and adequate air exchange. Suctioned and ETT removed. Transferred with oxygen to recovery. 1315 an stop data 1319 Care Handoff Note I discusse d with the receiving nurse and we: 1) Identified the patient, carbajal family member(s) or patient surrogate 2) Identified the responsible practitioner 3) Reviewed the pertinent medical history 4) Discussed the surgical/procedure course 5) Reviewed intra-op anesthesia management and issues during anesthesia 6) Set expectations for the post-procedure period 7) Allowed opportunity for questions and acknowledgement of understanding of report Electronically signed by Gene Patino APRN, ENGLISH DRAWER 1319 An Stop Care transferre d. Meds Name Total ceFAZolin (ANCEF) 2 g in sterile water 2 0 mL IV push 2 g midazolam 2 mg/2 mL injection (aka VERSE D) 2 mg fentaNYL injection (aka SUBLIMAZE) 3 mL lidocaine 1% PF injection aka (XYLOCAINE ) 40 mg propofol 10 mg/mL for procedural sedatio n (aka diPRIvan) 160 mg carboxymethylcellulose 1% eye drops (aka CELLUVISC) 2 Drop rocuronium injection (aka ZEMURON) 80 mg phenylephrine-NaCl 0.9% 100 mcg/mL syrin ge (aka ARLENE-SYNEPHRINE) 100 mcg dexamethasone 4 mg/mL injection (aka DEC ADRON) 4 mg ondansetron injection (aka ZOFRAN) 4 mg sugammadex (BRIDION) 200 mg/2 mL injecti on 200 mg HYDROmorphone 1 mg/mL injection (aka DIL AUDID) 0.5 mg sodium chloride 0.9% infusion 700 mL * Agents Name O2 N2O Air Sevoflurane () * Blood No blood administrations on file. Lines, Drains, and Airways Type Details Placement Removal GT/JT/GJT Yes; Gastrostomy; LLQ 04/27/24912 by Peripheral IV Placement Date: 04/27/24; Placement Time: 912; Inserted by?: RN; Size (Gauge): 20 G; Orientation: Left; Site Prep: ChloraPrep; Local Anesthetic: None; Insertion attempts: 1; Blood draw with insertion?: no; Patient Tolerance: Tolerated well; Removal Date: 04/27/24; Removal Time: 1509; Removal Reason: Patient discharged; Catheter Tip: Intact 04/27/24 0913 by Denisse Richter RN 04/27/24 1509 by Tiffanie Fan RN ETT Placement Date: 04/27/24; Placement Time: 1033; Placed By: ENGLISH DRAWER; Induction Type: Pre-O2, IV; Masking: Easy; ETT Type: ETT; Orientation: Right; Size (mm): 8.0; Depth Secured (cm): 24 cm; Cuffed: Cuffed; Intubation Method: DL; Cormack_Lehane Glottic Grade: Grade 1; Glottic View: Cords Open, Cords Clear; Blade: MAC; Blade Size: 4; Insertion attempts: 1; Difficulty: Easy; Adjunct Equipment: Stylet; Placement Verification: BBSE, auscultation, Positive EtCO2; Teeth and Lips Unchanged: Unchanged; Removal Date: 04/27/24; Removal Time: 1314 04/27/24 1033 by Gene Patino APRN, CRNA 04/27/24 1314 by Gene Patino APRN, CRNA Indwelling Urethral Catheter 04/27/24; 1035; No; Clyde Loza; 1 person; Indwelling Catheter; 16 Fr.; 1 04/27/24 1035 by Иван Loza RN 05/11/24 1532 by Mele, Discontinue Incision/Surgical Site 04/27/24; 1134; N o; Ankle; Right; 05/11/24; 1532 04/27/24 1134 by Иван Loza RN 05/11/24 1532 by Mele, Discontinue documented in this encounter Social History Tobacco Use Types Packs/Day Years Used Date Smoking Tobacco: Never Assessed Sex and Gender Information Value Date Recorded Sex Assigned at Not on file 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 Gender Identity Not on file Sexual Orientation Not on file documented as of this encounter Miscellaneous Notes * Anesthesia Postprocedure Evaluation - Karen Castrejon MD - 04/27/2024 2:20 PM CDT [facility] Anesthesia Post-op Note Patient: Paramjit Boyce Post-Op Diagnosis: Pre-Op Diagnosis Codes: * Peroneal tendinitis of right lower extremity [M76.71] Procedures performed: Repair dislocation peroneal tendons with fibular groove deepening and longus to brevis tenodesis (Right) LENGTHENING GASTROCNEMIUS (Right) EXCISION EXOSTOSIS ANKLE (Right) Anesthesia Type: General Post-op vital signs: Vitals Value Taken Time BP 132/84 04/27/24 1415 Temp 97.6 ??F (36.4 ??C) 04/27/24 1319 Pulse 94 04/27/24 1420 Resp 20 04/27/24 1420 SpO2 98 % 04/27/24 1420 Vitals shown include unfiled device data. Pain Assessment Preferred Pain Scale: FACES (Jessica-Sr FACES Pain Rating Scale) Last recorded pain score: 2 Post-op assessment: Patient location: PACU Airway Status: Patent Cardiovascular function: Satisfactory Hydration status: Satisfactory PONV: None Level of Consciousness: Awake Fully Participates Postop Assessment: Patient tolerated procedure well. Electronically signed by: Karen Castrejon MD 04/27/2024 2:20 PM * Anesthesia Preprocedure Evaluation - David Epstein MD - 04/27/2024 9:04 AM CDT [facility] Anesthesia Pre-op Evaluation Procedure: Repair dislocation peroneal tendons with fibular groove deepening and longus to brevis tenodesis, Right LENGTHENING GASTROCNEMIUS, Right EXCISION EXOSTOSIS ANKLE, Right HPI: 23 y.o. old male. Pre-Op Diagnosis Codes: * Peroneal tendinitis of right lower extremity [M76.71] Last Fluid Intake Time: 0600 Last Fluid Intake Date: 04/27/24 Last Food Intake Date: 04/26/24 Last Food Intake Time: 1900 Allergies Allergen Reactions Other Other, see comments HAS AN ALLERGY TO SOME KIND OF SUGAR HAVING TESTING TO DETERMINE TYPE No past medical history on file. Patient Active Problem List Diagnosis Peroneal tendinitis of right lower extremity Acquired deformity of chest wall Acquired pectus carinatum Anxiety (HRC) Arthralgia of foot Arthralgia of hip At high risk for falls Atrophy of testis Cell chromosome examination abnormal Chronic back pain Congenital pectus excavatum Crepitus of both temporomandibular joints on opening of jaw Congenital pes planus Disorder of connective tissue (HRC) Epigastric abdominal pain Hypogonadism male (HRC) Klinefelter's syndrome (HRC) Musculoskeletal hypermobility Myofascial pain syndrome Nausea Temporomandibular joint disorder Primary exertional headache Receives feedings through gastrostomy (HRC) S/P gastrostomy (HRC) Scoliosis Tall 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 Outpatient Medications as of 04/27/2024 Medication Sig acetaminophen (TYLENOL) 325 MG tablet Take 2 Tablets (650 mg) by mouth. aspirin 81 MG chewable tablet Chew and swallow by mouth. clotrimazole (LOTRIMIN) 1 % cream 1 APPLICATION TOPICALLY TWICE DAILY NEEDED. FOR SKIN IRRITATION/YEAST DERMATITIS famotidine (PEPCID) 40 MG tablet Take 1 Tablet (40 mg) by mouth. gabapentin (NEURONTIN) 300 MG capsule Take 1 Capsule (300 mg) by mouth. Incontinence Supply Disposable ([employer] BRIEFS) For home use. lidocaine (ASPERCREAM) 4 % patch Apply 3 Patches to skin every 24 hours. metoclopramide (REGLAN) 5 MG tablet Take 1 Tablet (5 mg) by mouth. Facility-Administered Medications as of 04/27/2024 Medication Dose Route Frequency ceFAZolin (ANCEF) 2 g in sterile water 20 mL IV push 2 g Intravenous Once (Non-Scheduled) fentaNYL (SUBLIMAZE) injection 25-50 mcg 25-50 mcg Intravenous PRN with procedures insulin lispro (HUMALOG; ADMELOG) injection vial 1-8 Units 1-8 Units Subcutaneous PRN based on Blood Sugar lactated ringers infusion Intravenous Continuous lidocaine PF (XYLOCAINE) 1 % injection 1 mL 1 mL Intradermal Pre-Procedure Labs: No results found for: SODIUM, K, CHLORIDE, CO2, BUN, CREATININE, GLUCOSE Lab Results Component Value Date/Time WBC 7.1 03/20/2024 02:32 PM HGB 14.7 03/20/2024 02:32 PM HCT 43.5 03/20/2024 02:32 PM PLTS 387 03/20/2024 02:32 PM INR (no units) Date Value 03/20/2024 1.0 Blood Bank: No results found for: ABO, ABSCR EKG: No results found for this or any previous visit. Physical Exam: BP 123/80 Pulse 84 Temp 98 ??F (36.7 ??C) (Oral) Resp 16 SpO2 99% Assessment/Plan: Review of Systems Patient does not have GERD. Patient is not a current smoker. The patient denies alcohol use. Patient denies any recent URI. History of PONV: No. History of motion sickness: No. Patient denies any personal or family history of anesthesia complications. NPO Status: Acceptable. Exam Mental Status: Alert and oriented. Mallampati score: I (One). Mouth opening: Normal Thyromental Distance: > 3 finger breadths and Normal Neck Extension: Full Neck Circumference > 40 cm?: No Current airway assessment:Normal Dentition: Age appropriate and chipped. Cardiac Exam: Regular rate and rhythm. Assessment ASA Status: 3 . Plan Anesthesia type: General and ETT Induction: Intravenous and Propofol Maintenance: Balanced and Precedex PONV Risk Score Adult: 1 PONV Prophylaxis (planned): Ondansetron and Decadron Anesthetic plan, risks, benefits and alternatives discussed with the patient who agrees to the anesthesia treatment plan. Possibility of blood products discussed. The patient and/or their construction sales representative were notified about the potential risks of damage to the lips, teeth, dental devices, mouth and airway. H&P Reviewed and Patient examined, no change observed IV access Antibiotics per surgery Electronically signed by: David Epstein MD 04/27/2024 9:05 AM documented in this encounter Plan of Treatment Upcoming Encounters Date Type Department Care Team (Late st Contact Info) Description 06/06/2024 1:00 PM CDT Appointment [facility] [address] [facility] [place] [address] Anahi Van MD [address] [place] [id number] 06/11/2024 9:10 AM CDT Appointment [facility] [address] [facility] [place] [address] Nilay Ceron MD [address] [facility] [place] [id number] documented as of this encounter Visit Diagnoses Not on filedocumented in this encounter Administered Medications Inactive Administered Medications - up to 3 most recent administrations Medication Order MAR Action Action Date Dose Rate Site carboxymethylcellulose PF (CELLUVISC) 1 % ophthalmic gel Both Eyes, Starting on Tue04/27/24 at 1029, Until Tue04/27/24 at 1319 Given 04/27/2024 10:29 AM CDT 2 Drops ceFAZolin (ANCEF) 2 g in sterile water 20 mL IV push 2 g, Intravenous, Administer over 5 Minutes, ONCE (NON-SCHEDULED), Starting on Tue04/27/24 at 0817, For 1 dose, For patient weight less than or equal to 119 kg PRE-OP Dilute 2 gram vial with 19.2 mL sterile water for slow IV push over 5 minutes for adults., Pre-opIndications:Surgical Prophylaxis Started 04/27/2024 10:53 AM CDT 2 g dexAMETHasone (DECADRON) injection Intravenous, Starting on Tue04/27/24 at 1143, Until Tue04/27/24 at 1319 Given 04/27/2024 11:43 AM CDT 4 mg fentaNYL (SUBLIMAZE) injection Intravenous, Starting on Tue04/27/24 at 1031, Until Tue04/27/24 at 1319 Given 04/27/2024 1:00 PM CDT 1 mL Given 04/27/2024 10:31 AM CDT 2 mL HYDROmorphone (DILAUDID) injection Intravenous, Starting on Tue04/27/24 at 1210, Until Tue04/27/24 at 1319 Given 04/27/2024 12:10 PM CDT 0.5 mg lidocaine PF (XYLOCAINE) 1 % injection Intravenous, Starting on Tue04/27/24 at 1031 Given 04/27/2024 10:31 AM CDT 40 mg midazolam (VERSED) injection Intravenous, Starting on Tue04/27/24 at 1018, Until Tue04/27/24 at 1319 Given 04/27/2024 10:18 AM CDT 2 mg ondansetron (ZOFRAN) injection Intravenous, Starting on Tue04/27/24 at 1143, Until Tue04/27/24 at 1319 Given 04/27/2024 11:43 AM CDT 4 mg phenylephrine-NaCl 0.9% (ARLENE-SYNEPHRINE) injection Intravenous, Starting on Tue04/27/24 at 1105, Until Tue04/27/24 at 1319 Given 04/27/2024 11:05 AM CDT 100 mcg propofol (DIPRIVAN) 10 mg/mL injection Intravenous, Starting on Tue04/27/24 at 1031, Until Tue04/27/24 at 1319 Given 04/27/2024 10:31 AM CDT 160 mg rocuronium (ZEMURON) injection Intravenous, Starting on Tue04/27/24 at 1031, Until Tue04/27/24 at 1319 Given 04/27/2024 11:08 AM CDT 10 mg Given 04/27/2024 10:31 AM CDT 70 mg sodium chloride 0.9% infusion Intravenous, Starting on Tue04/27/24 at 1018 Started 04/27/2024 10:18 AM CDT sugammadex (BRIDION) injection Intravenous, Starting on Tue04/27/24 at 1303, Until Tue04/27/24 at 1319 Given 04/27/2024 1:03 PM CDT 200 mg documented in this encounter Care Teams Collection Systems Administrator Relationship Specialty Start Date End Date Eliana Guerra MD [address] [facility] [address] PCP - General Family Practice 12/04/19 documented as of this encounter
--- OUTSIDE RECORDS SUMMARY | 2024-05-17 19:33 | XMS_ITS | Encounter Summary ---
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 Procedures Repair dislocation peroneal tendons with fibular groove deepening and longus to brevis tenodesis LENGTHENING GASTROCNEMIUS EXCISION EXOSTOSIS ANKLE Referral ID Status Reason Start Date Expiration Date Visits Re quested Visits Authorized [id number] 1 1 Encounter Details Date Type Department Care Team (Late st Contact Info) Description 04/27/2024 9:35 AM CDT - 04/27/2024 1:55 PM CDT Surgery [facility] Operating Room [address] [place] [id number] Anahi Van MD [address] [place] [id number] Repair dislocation peroneal tendons with fibular groove deepening and longus to brevis tenodesis Social History Tobacco Use Types Packs/Day Years Used Date Smoking Tobacco: Never Assessed Sex and Gender Information Value Date Recorded Sex Assigned at Not on file Legal Sex Male 5:33 PM [employer]ING [employer] Gender Identity Not on file Sexual Orientation Not on file documented as of this encounter Last Filed Vital Signs Vital Sign Reading Time Taken Comments Blood Pressure 138/90 04/27/2024 1:50 PM CDT Pulse 94 04/27/2024 1:50 PM CDT Temperature 36.4 C (97.6 F) 04/27/2024 1:19 PM CDT Respiratory Rate 12 04/27/2024 1:50 PM CDT Oxygen Saturation 98% 04/27/2024 1:50 PM CDT Inhaled Oxygen Concentration - - Weight - - Height - - Body Mass Index - - documented in this encounter Discharge Instructions * Discharge Instr - Other Orders* Nabila Hernandez RN - 04/27/2024 2:26 PM CDT CONTACT INFORMATION If it is after hours call the Careline at [phone]. [facility] Surgery: Please contact your clinic during regular business hours or in case of anEmergency dial 911. Orthopedics, ANESTHESIA Today you received General/Minor Sedation: Rest in bed the day of surgery, then advance to normal activity the next day. Let's talk about what to expect after receiving anesthesia. After anesthesia, reactions are slow and some patients may become lightheaded or dizzy. The following safety precautions are recommended: Don't drink alcoholic beverages. Don't use any other drugs than those ordered by your physician. Don't drive a car or any other vehicle. Don't work with machinery or power tools. Be careful walking. Be extra careful walking up and down stairs. DANGER SIGNALS I should call my clinic if I experience any of the following: Temperature higher than 101 degrees Fahrenheit Redness that has spread Persistent bleeding Green/yellow/infected, foul smelling drainage from incision site Reaction to new medications Severe pain Swelling documented in this encounter Medications at Time of Discharge acetaminophen (TYLENOL) 325 MG tablet Take 2 Tablets (650 mg) by mouth. 03/14/2024 acetaminophen (TYLENOL) 500 MG tablet Take 2 Tablets (1,000 mg) by mouth every 8 hours. Maximum acetaminophen dose is 4000 mg in 24 hours 100 Tablet 04/27/2024 3:17 PM CDT 04/27/2024 aspirin 81 MG chewable tablet Chew and swallow by mouth. 11/07/2023 clotrimazole (LOTRIMIN) 1 % cream 1 APPLICATION TOPICALLY TWICE DAILY NEEDED. FOR SKIN IRRITATION/YEAST DERMATITIS 12/02/2023 diazePAM (VALIUM) 5 MG tablet Take 1 Tablet (5 mg) by mouth every 6 hours as needed for Anxiety or Muscle Spasms. 30 Tablet 1 05/11/2024 famotidine (PEPCID) 40 MG tablet Take 1 Tablet (40 mg) by mouth. 03/15/2024 gabapentin (NEURONTIN) 300 MG capsule Take 1 Capsule (300 mg) by mouth. 03/14/2024 HYDROcodone-acet aminophen (NORCO) 5-325 MG tablet Take 1 Tablet by mouth every 6 hours as needed for Pain. 20 Tablet 05/11/2024 Incontinence Supply Disposable (WINGS CHOICE PLUS YOUTH BRIEFS) For home use. 12/20/2023 lidocaine (ASPERCREAM) 4 % patch Apply 3 Patches to skin every 24 hours. 03/14/2024 methocarbamol (ROBAXIN) 500 MG tablet Take 1 Tablet (500 mg) by mouth three times a day as needed for Muscle Spasms. 30 Tablet 04/27/2024 3:17 PM CDT 04/27/2024 metoclopramide (REGLAN) 5 MG tablet Take 1 Tablet (5 mg) by mouth. 03/01/2024 promethazine (PHENERGAN) 12.5 MG tablet Take 1 Tablet (12.5 mg) by mouth daily at bedtime. 30 Tablet 3 05/15/2024 ketorolac (TORADOL) 10 MG tablet Take 1 Tablet (10 mg) by mouth three times a day as needed for Pain for up to 3 days. 9 Tablet 04/27/2024 3:17 PM CDT 04/27/2024 5 HYDROcodone-acet aminophen (NORCO) 5-325 MG tabletIndication s:Pain Take 1-2 Tablets by mouth every 6 hours as needed for Pain. Indications: Pain 15 Tablet 04/27/2024 3:17 PM CDT 04/27/2024 documented as of this encounter Procedure Notes * Anahi Van MD - 04/27/2024 3:32 PM CDT [facility] Operative Note Surgery Date: 04/27/2024 Surgeons and Role: * Anahi Van MD - Primary * Tiburcio Dockery MD - Resident - Assisting * Carmen Wong DPM - Resident - Assisting * Mikhail Banks MD - Resident - Assisting Pre-op Diagnosis: * Peroneal tendinitis of right lower extremity [M76.71] Fibular avulsion fracture with subfibular ossicle Subluxation of the peroneal tendons Equinus Post-op Diagnosis: * Peroneal tendinitis of right lower extremity [M76.71] Fibular avulsion fracture with subfibular ossicle Subluxation of the peroneal tendons equinus Procedure(s) (LRB): Repair dislocation peroneal tendons with fibular groove deepening and longus to brevis tenodesis (Right) LENGTHENING GASTROCNEMIUS (Right) EXCISION EXOSTOSIS ANKLE (Right) EBL: 5 mL Specimens: * No specimens in log * Complications: none CLINICAL HISTORY: Paramjit Boyce is a 23 y.o. old male who has had ongoing discomfort along the peroneal tendons combined with sensation of subluxation / popping and occasional alison dislocation. Hehas failed conservative management. The patient presents today for open exploration and debridementwith fibular groove deepening and longus to brevis tenodesis in the subfibular region. Additionallyhe has gastroc equnius and will undergo a omayra. DESCRIPTION OF PROCEDURE: Patient was met in the preoperative holding area where the right leg was marked as the operative site and side. The patient was then brought to the operating room, placed in supine position on a well-padded operating room table. After induction of general anesthesia, IV antibiotics were administered. A thigh tourniquet was applied and the patient was repositioned into lateral decubitus with all bony prominences padded. The right leg was then positioned on a bone foam, prepped and draped in standard sterile fashion to the knee. Timeout was called for to confirm patient's name, date of and planned procedure. We began by exsanguinating the limb and raising the tourniquet to 300 mmHg. We began with the omayra portion of the procedure. A midline incision of roughly 4-6 cm was carried out posteriorly in the calf at the jmyotendinous junction of the gastrocnemius. Sharp dissection was carried out through the skin with blunt dissection down to the superficial fascia. This was splitin line with the incision. We then bluntly dissected to the level of the gastrocnemius fascia. Thiswas bluntly from the underlying soleus. Taking care to protect the sural nerve, we then transected the gastrocnemius muscle fascia. This allowed good dorsiflexion of the ankle with the kneestraight. This incisions was irrigated and then closed in layered fashion with 3-0 monocryl and 3-0nylon. We then proceed to the peroneal work. A curvilinear incision was carried out along the course of the peroneal tendons from the tip of the fibula extending proximally, with sharp dissection through the skin, blunt dissection down to the level of the peroneal sheath. The sheath was incised longitudinally along the course of the tendon. The tendons were found to be healthy in appearance, though there was an extensively low lying peroneus brevis muscle belly which extended past the tip of the fibular. This muscle was debrided back roughly 3-4 cm. The tendons were then dislocated out of the groove. The groove itself was examined. It was completely flat. We dissected along the posterior border of the fibula in an area of about 4 cm from the tipof the fibula and moving proximally. We then dissected bluntly down to bone and used an osteotome to make a flap of fibula. This was here hinged backward, allowing us access to the intramedullary canal of the fibula. A curette was used to resect approximately 3 to 4 mm of bone. The flap was then tamped back into place, creating a deeper groove for the tendons. We then performed a [id number] tenodesis using 2-0 FiberWire whip stitching up and down both sides of the combined tendons. The tendons were left with their separate muscle belly origins and also there separate distal attachments. This new combined peroneal tendon was then positioned back into the created groove. A K-wire was used to make multiple holes in the anterior border of the fibula. 2-0 FiberWire was then used to secure the sheath to these K-wire holes both repairing the retinacular material and stabilizing our osteotomy. This brought our tendons snugly into the newly formed groove without undue tightness. Once this had been completed, we then ranged the ankle again. I noted no tendency for subluxation and smoothgliding of the tendons in the new deeper groove. We then turned our attention to the distal fibular bony ossicle. This was easily palpated at the anterolateral corner of the ankle. A small rent was made in the capsule and the ossicle removed with sharp dissection about the bone. X-ray was brought in to confirm appropriate resection of the fragment. The capsuloligamentous tissue was then repaired with 0 vicryl. The wound was copiously irrigated. The remaining peroneal sheath was repaired with 0 vicryl. Deep tissues were closed with 3-0 Monocryl. The skin was then closed with 3-0 nylon. Xeroform, dry, gauze dressings were applied and the patient was placed into a bulky Hager style splint with the ankle in neutral dorsiflexion and a sugar tong plaster slab applied. At the end of the case, all sponge and needle counts were correct. No intraoperative complications were noted. As the attending surgeon, I was scrubbed and present for the entire case. The patient will be partial to nonweightbearing for 6 weeks. Patient will be nonweightbearing in a splint for 2 weeks. Follow up in clinic with 3 views of the ankle at that time. Transition to long leg versus short leg cast at that time per patient preference.Then follow up at 6 weeks with me with 3 views non-weightbearing ankle out of cast and transition to either short leg walking cast or removable ankle walking boot. * Tiburcio Dockery MD - 04/27/2024 1:11 PM CDT [facility] Brief Operative Progress Note Surgery Date: 04/27/2024 Surgeons and Role: * Anahi Van MD - Primary * Tiburcio Dockery MD - Resident - Assisting * Carmen Wong DPM - Resident - Assisting * Mikhail Banks MD - Resident - Assisting * No visitors entered * Pre-op Diagnosis: * Peroneal tendinitis of right lower extremity [M76.71] Post-op Diagnosis: Post-Op Diagnosis Codes: * Peroneal tendinitis of right lower extremity [M76.71] Procedures with associated lateralities: Procedure(s) (LRB): Repair dislocation peroneal tendons with fibular groove deepening and longus to brevis tenodesis (Right) LENGTHENING GASTROCNEMIUS (Right) EXCISION EXOSTOSIS ANKLE (Right) EBL: 5 mL Specimens: * No specimens in log * Complications / Findings: None. Bony ossicle removed from medial distal fibula. See full operative note for additional details. Disposition: Patient tolerated the procedure well and was transported to the PACU in stable condition. Thereafter will be able to discharge home. Postoperative Plan: Tylenol, Robaxin, Toradol for pain control, short course of narcotic for breakthrough pain WB status: NWB RLE with crutches/walker for assistance Antibiotics: Ancef periop DVT Prophylaxis: Mechanical X-rays: C-arm imaging during case Bracing/Splinting: WYATT RHODES Garza: Remain in Elevation: elevate RLE, will get ERLE pillow for patient prior to discharge. Ice behind the knee tohelp with swelling. Dressings: Keep clean, dry, intact until clinic follow-up Diet: Begin with fluids and progress NIKOLAS Dispo: Discharge home after clearing PACU protocol F/U: Clinic with Dr. Van in on 05/09/24 for wound check, suture removal. Tiburcio Dockery MD PGY-2, Orthopaedic Surgery Pager #: [phone] documented in this encounter Plan of Treatment Upcoming Encounters Date Type Department Care Team (Late st Contact Info) Description 06/06/2024 1:00 PM CDT Appointment [facility] [place] [id number] [facility] [address] [place] [id number] Anahi Van MD [address] [place] [address] 06/11/2024 9:10 AM CDT Appointment Specialty [place] [id number] [address] Nilay Ceron MD [address] [place] [id number] documented as of this encounter Procedures Procedure Name Priority Date/Time Associated Diagnosis Comments XR C-ARM 1-1.5 HOURS Routine 04/27/2024 12:47 PM CDT EXCISION EXOSTOSIS FOOT 04/27/2024 10:02 AM CDT Peroneal tendinitis of right lower extremity LENGTHENING GASTROCNEMIUS 04/27/2024 10:02 AM CDT Peroneal tendinitis of right lower extremity LENGTHENING LOWER EXTREMITY TENDON 04/27/2024 10:02 AM CDT Peroneal tendinitis of right lower extremity documented in this encounter Results * XR C-Arm 1-1.5 Hours (04/27/2024 12:47 PM CDT) Anatomical Region Laterality Modality X-Ray Angiograph y Narrative 04/27/2024 12:47 PM CDT Fluoroscopy provided by a doctor of radiology. Exact fluoroscopy time is documented in end of exam information in EPIC us Anahi Van MD RAD GD Final Result documented in this encounter Visit Diagnoses Diagnosis Peroneal tendinitis of right lower extremity- Primary Other enthesopathy of ankle and tarsus Pain Generalized pain Peroneal tendinitis of right lower extremity Other enthesopathy of ankle and tarsus Peroneal tendinitis of right lower extremity Other enthesopathy of ankle and tarsus documented in this encounter Admitting Diagnoses Diagnosis Peroneal tendinitis of right lower extremity Other enthesopathy of ankle and tarsus documented in this encounter Administered Medications Inactive Administered Medications - up to 3 most recent administrations Medication Order MAR Action Action Date Dose Rate Site BUPivacaine PF (SENSORCAINE) 0.5% injection ONCE PRN, Starting on Tue04/27/24 at 1258, Until Tue04/27/24 at 1732, Intra-op Given 04/27/2024 12:58 PM CDT 30 mL dexAMETHasone (DECADRON) injection 4-8 mg 4-8 mg, Intravenous, Q15MIN PRN, Other, nausea/vomiting, Starting on Tue04/27/24 at 1251, Until Tue04/27/24 at 1732, For 2 doses, Anti-emetic Step 2: Dexamethasone 4-8 mg IV If not given in operating room. (Use in PACU only). If medication given in OR may give up to 8 mg total dose (including intra-operative dose) If nausea not resolved in 15 minutes go to next step medication if ordered otherwise proceed to next antiemetic step.. PACU use only, PACU (only) fentaNYL (SUBLIMAZE) injection 25-50 mcg 25-50 mcg, Intravenous, PRN WITH PROCEDURES, Procedure, Starting on Tue04/27/24 at 0817, Until Tue04/27/24 at 1732, Administer per direction of Anesthesiologist., Pre-op fentaNYL (SUBLIMAZE) injection 25-50 mcg 25-50 mcg, Intravenous, [id number], Pain, Starting on Tue04/27/24 at 1251, Until Tue04/27/24 at 1732, PACU USE ONLY Use fentanyl as first line short acting agent for treatment of acute post operative pain. Start with lower dose and adjust subsequent dosing based on patient response. May use for breakthrough pain in conjunction with a longer acting agent (hydromorphone or morphine). Respiratory rate must be greater than 10 to administer medication. Total PACU fentanyl dose not to exceed 200 mcg. , PACU (only) Given 04/27/2024 2:00 PM CDT 25 mcg Given 04/27/2024 1:50 PM CDT 50 mcg Given 04/27/2024 1:33 PM CDT 25 mcg hydrALAZINE (APRESOLINE) injection 5 mg 5 mg, Intravenous, Q10MIN PRN, Blood Pressure >, Starting on Tue04/27/24 at 1251, Until Tue04/27/24 at 1732, Must call anesthesia before initiating medication. Give q 10 minutes PRN up to 20 mg (PACU use only), PACU (only) HYDROmorphone (DILAUDID) injection 0.2-0.3 mg 0.2-0.3 mg, Intravenous, Q10MIN PRN, Pain, Starting on Tue04/27/24 at 1251, Until Tue04/27/24 at 1732, PACU USE ONLY Use hydromorphone if fentanyl alone is not adequately managing pain. Start with lower dose and adjust subsequent dosing based on patient response. May use fentanyl for breakthrough pain in conjunction with hydromorphone dosing. Respiratory rate must be greater than 10 to administer medication. Total PACU hydromorphone dose not to exceed 2 mg, PACU (only) insulin lispro (HUMALOG; ADMELOG) injection vial 2-4 Units 2-4 Units, Subcutaneous, PRN BASED ON BLOOD SUGAR, Blood Sugar >, Starting on Tue04/27/24 at 1251, PACU PATIENTS ONLY Blood Sugar 151-199 mg/dL: give 2 units, Blood Sugar 200-250 mg/dL: give 3 units, Blood Sugar greater than 250 mg/dL: give 4 units and call anesthesia, PACU (only) labetalol (NORMODYNE) injection 5 mg 5 mg, Intravenous, [id number], Blood Pressure >, Hypertension SBP greater than 160, Starting on Tue04/27/24 at 1251, Until Tue04/27/24 at 1732, Must call anesthesia before initiating medication. Give q 5 minutes PRN up to 25 mg. (PACU use only), PACU (only) lactated ringers infusion Intravenous, at 30 mL/hr, CONTINUOUS, Starting on Tue04/27/24 at 0845, Pre-op lidocaine (UROJET) 2 % gel prefilled syringe Urethral, PRN WITH PROCEDURES, Local Anesthetic, Prior to intermittent straight cath or indwelling urethral catheter placement for pain relief and/or lubrication, Starting on Tue04/27/24 at 1127, Administer 3-5 mL for females and 5-10mL for males as needed for anesthetic effect prior to procedure Strongly recommend utilizing Coud tipped catheter and PRN Urojet for patients with a prostate age 50 and older., Intra-opIndications:Local Anesthesia,For use prior to indwelling Garza catheter placement lidocaine PF (XYLOCAINE) 1 % injection 1 mL 1 mL, Intradermal, PRE-PROCEDURE, Starting on Tue04/27/24 at 0817, For 1 dose, Pre-op meperidine (DEMEROL) injection 25 mg 25 mg, Intravenous, Q20MIN PRN, Shivering, Starting on Tue04/27/24 at 1251, Until Tue04/27/24 at 1732, For 2 doses, Give 25 mg IV prn shivering may repeat X1 after 20 minutes up to a total dose of 50 mg., PACU (only) metoprolol tartrate (LOPRESSOR) injection 1-2 mg 1-2 mg, Intravenous, [id number], See administration instructions, Starting on Tue04/27/24 at 1251, Until Tue04/27/24 at 1732, Must call anesthesia before initiating medication. Give q 5 minutes PRN up to 10 mg Hold for HR < 50 (PACU use only), PACU (only) naloxone (NARCAN) injection 0.04 mg 0.04 mg, Intravenous, Q2MIN PRN, Opioid Reversal, Non-Emergent Opioid Reversal (Respiratory Rate less than 8 breaths per minute or difficult to arouse), Starting on Tue04/27/24 at 1251, Until Tue04/27/24 at 1732, Dilution Instructions: Dilute 1 mL of 0.4 mg/mL naloxone vial into 9 mL of normal saline to make a final concentration of 0.04 mg/mL. Discard dose if not used within 1 hour. Use 1 mL of diluted 0.04 mg/mL strength slow IV push over 1 minute. Give first dose, notify practitioner, and continue to observe. Repeat for up to 5 doses per episode until patient is arousable and can take deep breaths. If no improvement in respiratory rate or remains difficult to arouse notify practitioner for additional orders. , PACU (only) naloxone (NARCAN) injection 0.4 mg 0.4 mg, Intravenous, Q2MIN PRN, Opioid Reversal, Emergent Opioid Reversal (Respiratory Rate less than 6 breaths per minute or unresponsive to physical stimulation), Starting on Tue04/27/24 at 1251, Until Tue04/27/24 at 1732, Give first dose, notify practitioner, and continue to observe. Repeat for up to 5 doses per episode until patient is responsive to physical stimulation and can take deep breaths. , PACU (only) ondansetron (ZOFRAN) injection 4 mg 4 mg, Intravenous, Q15MIN PRN, Nausea, Vomiting, Starting on Tue04/27/24 at 1251, Until Tue04/27/24 at 1732, For 2 doses, Anti-emetic Step 1: Ondansetron 4 mg IV If not given in operating room. (PACU use only) If an intra-operative dose was given may repeat up to a total dose of 8 mg (including intra-operative dose). If nausea is not resolved in 15 minutes go to next 2-5 step medication if ordered otherwise proceed to next antiemetic step. PACU use only, PACU (only) oxyCODONE-acetaminophen (PERCOCET) 5-325 MG per tablet 1-2 Tablet 1-2 Tablet, Oral, Q4H PRN, Pain, Starting on Tue04/27/24 at 1343, Until Tue04/27/24 at 1732, PACU (only) Given 04/27/2024 2:02 PM CDT 2 Tablets documented in this encounter Active and Recently Administered Medications Times are shown in CDT. Scheduled Medication Order 04/25/2024 04/26/2024 04/27/2024 ceFAZolin (ANCEF) 2 g in sterile water 20 mL IV push (COMPLETED) 2 g, Intravenous, Administer over 5 Minutes, ONCE (NON-SCHEDULED), Starting on Tue04/27/24 at 0817, For 1 dose, For patient weight less than or equal to 119 kg PRE-OP Dilute 2 gram vial with 19.2 mL sterile water for slow IV push over 5 minutes for adults., Pre-op 1053 (Started - Prov ider: Gene Patino, GWENDOLYN, [employer] SUPERVISOR) lidocaine PF (XYLOCAINE) 1 % injection 1 mL 1 mL, Intradermal, PRE-PROCEDURE, Starting on Tue04/27/24 at 0817, For 1 dose, Pre-op Continuous Medication Order 04/25/2024 04/26/2024 04/27/2024 lactated ringers infusion Intravenous, at 30 mL/hr, CONTINUOUS, Starting on Tue04/27/24 at 0845, Pre-op 0845 (Due) PRN Medication Order 04/25/2024 04/26/2024 04/27/2024 BUPivacaine PF (SENSORCAINE) 0.5% injection ONCE PRN, Starting on Tue04/27/24 at 1258, Until Tue04/27/24 at 1732, Intra-op 1258 (Given - Provid er: Anahi Van MD) dexAMETHasone (DECADRON) injection 4-8 mg 4-8 mg, Intravenous, Q15MIN PRN, Other, nausea/vomiting, Starting on Tue04/27/24 at 1251, Until Tue04/27/24 at 1732, For 2 doses, Anti-emetic Step 2: Dexamethasone 4-8 mg IV If not given in operating room. (Use in PACU only). If medication given in OR may give up to 8 mg total dose (including intra-operative dose) If nausea not resolved in 15 minutes go to next step medication if ordered otherwise proceed to next antiemetic step.. PACU use only, PACU (only) fentaNYL (SUBLIMAZE) injection 25-50 mcg 25-50 mcg, Intravenous, PRN WITH PROCEDURES, Procedure, Starting on Tue04/27/24 at 0817, Until Tue04/27/24 at 1732, Administer per direction of Anesthesiologist., Pre-op fentaNYL (SUBLIMAZE) injection 25-50 mcg 25-50 mcg, Intravenous, [id number], Pain, Starting on Tue04/27/24 at 1251, Until Tue04/27/24 at 1732, PACU USE ONLY Use fentanyl as first line short acting agent for treatment of acute post operative pain. Start with lower dose and adjust subsequent dosing based on patient response. May use for breakthrough pain in conjunction with a longer acting agent (hydromorphone or morphine). Respiratory rate must be greater than 10 to administer medication. Total PACU fentanyl dose not to exceed 200 mcg. , PACU (only) 1333 (Given - Provid er: Alexandria Barrios RN)1350 (Given - Provider: Alexandria Barrios RN)1400 (Given - Provider: Alexandria Barrios RN) hydrALAZINE (APRESOLINE) injection 5 mg 5 mg, Intravenous, Q10MIN PRN, Blood Pressure >, Starting on Tue04/27/24 at 1251, Until Tue04/27/24 at 1732, Must call anesthesia before initiating medication. Give q 10 minutes PRN up to 20 mg (PACU use only), PACU (only) HYDROmorphone (DILAUDID) injection 0.2-0.3 mg 0.2-0.3 mg, Intravenous, Q10MIN PRN, Pain, Starting on Tue04/27/24 at 1251, Until Tue04/27/24 at 1732, PACU USE ONLY Use hydromorphone if fentanyl alone is not adequately managing pain. Start with lower dose and adjust subsequent dosing based on patient response. May use fentanyl for breakthrough pain in conjunction with hydromorphone dosing. Respiratory rate must be greater than 10 to administer medication. Total PACU hydromorphone dose not to exceed 2 mg, PACU (only) insulin lispro (HUMALOG; ADMELOG) injection vial 2-4 Units 2-4 Units, Subcutaneous, PRN BASED ON BLOOD SUGAR, Blood Sugar >, Starting on Tue04/27/24 at 1251, PACU PATIENTS ONLY Blood Sugar 151-199 mg/dL: give 2 units, Blood Sugar 200-250 mg/dL: give 3 units, Blood Sugar greater than 250 mg/dL: give 4 units and call anesthesia, PACU (only) labetalol (NORMODYNE) injection 5 mg 5 mg, Intravenous, [id number], Blood Pressure >, Hypertension SBP greater than 160, Starting on Tue04/27/24 at 1251, Until Tue04/27/24 at 1732, Must call anesthesia before initiating medication. Give q 5 minutes PRN up to 25 mg. (PACU use only), PACU (only) lidocaine (UROJET) 2 % gel prefilled syringe Urethral, PRN WITH PROCEDURES, Local Anesthetic, Prior to intermittent straight cath or indwelling urethral catheter placement for pain relief and/or lubrication, Starting on Tue04/27/24 at 1127, Administer 3-5 mL for females and 5-10mL for males as needed for anesthetic effect prior to procedure Strongly recommend utilizing Coud tipped catheter and PRN Urojet for patients with a prostate age 50 and older., Intra-op meperidine (DEMEROL) injection 25 mg 25 mg, Intravenous, Q20MIN PRN, Shivering, Starting on Tue04/27/24 at 1251, Until Tue04/27/24 at 1732, For 2 doses, Give 25 mg IV prn shivering may repeat X1 after 20 minutes up to a total dose of 50 mg., PACU (only) metoprolol tartrate (LOPRESSOR) injection 1-2 mg 1-2 mg, Intravenous, [id number], See administration instructions, Starting on Tue04/27/24 at 1251, Until Tue04/27/24 at 1732, Must call anesthesia before initiating medication. Give q 5 minutes PRN up to 10 mg Hold for HR < 50 (PACU use only), PACU (only) naloxone (NARCAN) injection 0.04 mg(Linked Group 1) 0.04 mg, Intravenous, Q2MIN PRN, Opioid Reversal, Non-Emergent Opioid Reversal (Respiratory Rate less than 8 breaths per minute or difficult to arouse), Starting on Tue04/27/24 at 1251, Until Tue04/27/24 at 1732, Dilution Instructions: Dilute 1 mL of 0.4 mg/mL naloxone vial into 9 mL of normal saline to make a final concentration of 0.04 mg/mL. Discard dose if not used within 1 hour. Use 1 mL of diluted 0.04 mg/mL strength slow IV push over 1 minute. Give first dose, notify practitioner, and continue to observe. Repeat for up to 5 doses per episode until patient is arousable and can take deep breaths. If no improvement in respiratory rate or remains difficult to arouse notify practitioner for additional orders. , PACU (only) naloxone (NARCAN) injection 0.4 mg(Linked Group 1) 0.4 mg, Intravenous, Q2MIN PRN, Opioid Reversal, Emergent Opioid Reversal (Respiratory Rate less than 6 breaths per minute or unresponsive to physical stimulation), Starting on Tue04/27/24 at 1251, Until Tue04/27/24 at 1732, Give first dose, notify practitioner, and continue to observe. Repeat for up to 5 doses per episode until patient is responsive to physical stimulation and can take deep breaths. , PACU (only) ondansetron (ZOFRAN) injection 4 mg 4 mg, Intravenous, Q15MIN PRN, Nausea, Vomiting, Starting on Tue04/27/24 at 1251, Until Tue04/27/24 at 1732, For 2 doses, Anti-emetic Step 1: Ondansetron 4 mg IV If not given in operating room. (PACU use only) If an intra-operative dose was given may repeat up to a total dose of 8 mg (including intra-operative dose). If nausea is not resolved in 15 minutes go to next 2-5 step medication if ordered otherwise proceed to next antiemetic step. PACU use only, PACU (only) oxyCODONE-acetaminophen (PERCOCET) 5-325 MG per tablet 1-2 Tablet 1-2 Tablet, Oral, Q4H PRN, Pain, Starting on Tue04/27/24 at 1343, Until Tue04/27/24 at 1732, PACU (only) 1402 (Given - Provid er: Alexandria Barrios RN) Linked Groups Order Group 1: naloxone (NARCAN) injection 0.4 mgJump to med 0.4 mg, Intravenous, Q2MIN PRN, Opioid Reversal, Emergent Opioid Reversal (Respiratory Rate less than 6 breaths per minute or unresponsive to physical stimulation), Starting on Tue04/27/24 at 1251, Until Tue04/27/24 at 1732, Give first dose, notify practitioner, and continue to observe. Repeat for up to 5 doses per episode until patient is responsive to physical stimulation and can take deep breaths. , PACU (only) Or naloxone (NARCAN) injection 0.04 mgJump to med 0.04 mg, Intravenous, Q2MIN PRN, Opioid Reversal, Non-Emergent Opioid Reversal (Respiratory Rate less than 8 breaths per minute or difficult to arouse), Starting on Tue04/27/24 at 1251, Until Tue04/27/24 at 1732, Dilution Instructions: Dilute 1 mL of 0.4 mg/mL naloxone vial into 9 mL of normal saline to make a final concentration of 0.04 mg/mL. Discard dose if not used within 1 hour. Use 1 mL of diluted 0.04 mg/mL strength slow IV push over 1 minute. Give first dose, notify practitioner, and continue to observe. Repeat for up to 5 doses per episode until patient is arousable and can take deep breaths. If no improvement in respiratory rate or remains difficult to arouse notify practitioner for additional orders. , PACU (only) documented in this encounter Care Teams Ski Top Trimmer Relationship Specialty Start Date End Date Elinaa Guerra MD [address] [place] [address] PCP - General Family Practice 12/04/19 documented as of this encounter
--- OUTSIDE RECORDS SUMMARY | 2024-05-17 19:33 | XMS_ITS | Encounter Summary ---
Author Organization [employer] Address [address] [address] Care Team Providers Care Intel Recruiter Name Role Phone Eliana Guerra MD Primary Care Provider [phone] Reason for Visit * Reason Comments Follow-up, NOS Entered automaticall y based on patient selection in [employer]. Encounter Details Date Type Department Care Team (Late st Contact Info) Description 03/28/2024 4:00 PM EXPORT ADMINISTRATOR [facility] [address] [place] [address] Anahi Gonzales MD [address] [place] [address] Chief Comp: Follow-up, NOS Social History Tobacco Use Types Packs/Day Years Used Date Smoking Tobacco: Never Assessed Sex and Gender Information Value Date Recorded Sex Assigned at Not on file Legal Sex Male 5:33 PM EXPORT ADMINISTRATOR Gender Identity Not on file Sexual Orientation Not on file documented as of this encounter Progress Notes * Anahi Gonzales MD - 05/15/2024 9:00 AM CDTAddended by: ANAHI GONZALES on: 05/15/2024 09:00 AM Modules accepted: Orders * Anahi Gonzales MD - 05/11/2024 10:25 AM CDTAddended by: ANAHI GONZALES on: 05/11/2024 10:25 AM Modules accepted: Orders documented in this encounter Plan of Treatment Upcoming Encounters Date Type Department Care Team (Late st Contact Info) Description 06/06/2024 1:00 PM CDT Appointment Specialty Center [facility] [address] [place] [address] Anahi Gonzales MD [address] [place] [address] 06/11/2024 9:10 AM CDT Appointment [place] [address] [address] Nilay Ceron MD [address] [facility] [place] [address] documented as of this encounter Visit Diagnoses Not on filedocumented in this encounter Care Teams Intel Recruiter Relationship Specialty Start Date End Date Eliana Guerra MD [address] [place] [address] PCP - General Family Practice 12/04/19 documented as of this encounter
--- OUTSIDE RECORDS SUMMARY | 2024-05-17 19:33 | XMS_ITS | Encounter Summary ---
Author Organization [facility] Address [address] [place] [address] Care Team Providers Care Wood Carver Hand Name Role Phone Elsewhere, Pcp Primary Care Provider Unavailabl e Encounter Details Date Type Department Care Team (Late st Contact Info) Description 05/16/2024 Clinical Communication Department of Orthopedic Surgery in [place], [place] [address] [place] [phone] Jose Crawford M.D. [address] [place] [phone] Social History Tobacco Use Types Packs/Day Years Used Date Smoking Tobacco: Never Smokeless Tobacco: Never Alcohol Use Standard Drinks/Week Comments Yes 1 (1 standard drink = 0.6 oz pur e alcohol) [facility] Utilities Answer Date Recorded In the past 12 months has [facility] [employer], gas, oil, or water [employer] threatened to shut off services in your [...] Answer Date Recorded PHQ-2 Score 0 07/07/2023 [facility] Questionnaire Answer Date [...] your living situation today? I have a [facility] place to live 05/22/2023 Education Answer Date Recorded What is the highest level of school you have completed or the highest degree you have received? 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 [address] [place] [phone] 06/11/2024 1:00 PM CDT Telemedicine Department of Sports Medicine in [place], [place] [address] [place] [address] Ahsan Talbert M.D., Ph.D. 200 [place] [address] documented as of this encounter Visit Diagnoses Not on filedocumented in this encounter Additional Health Concerns Assessment Noted Time PHQ-9 Depression Total Score: 5 07/07/19 24 9:17 PM CDT documented as of this encounter Care Teams Wood Carver Hand Relationship Specialty Start Date End Date Elsewhere, Pcp PCP - General Internal Medicine 05/22/18 documented as of this encounter
--- OUTSIDE RECORDS SUMMARY | 2024-05-17 19:33 | XMS_ITS | Encounter Summary ---
Author Organization [facility] Address [address] [place] [address] Care Team Providers Care Stonework Supervisor Name Role Phone Elsewhere, Pcp Primary Care Provider Unavailabl e Encounter Details Date Type Department Care Team (Late st Contact Info) Description 05/14/2024 Orders Only Department of Neurology in [place], [place] [address] [place] [address] Jak Drummond M.D. [address] [place] [address] Social History Tobacco Use Types Packs/Day Years Used Date Smoking Tobacco: Never Smokeless Tobacco: Never Alcohol Use Standard Drinks/Week Comments Yes 1 (1 standard drink = 0.6 oz pur e alcohol) [facility] Utilities Answer Date Recorded In the past 12 months has e [employer], gas, oil, or water [employer] threatened to shut off services in [...] often do you attend chur ch or scientology services? More than 4 times per year 2022 Do you belong to any clubs o r organizations such as religion groups, unions, fraternal or athletic groups, or [...] 0 07/07/2023 [facility] [place] of Occupat ional [facility] - Occupational Stress Questionnaire Answer [...] your living situation today? I have a [facility] place to live 05/22/2023 Education Answer Date Recorded What is the highest level of school you have completed or the highest degree you have received? 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 [address] [place] [phone] 06/11/2024 1:00 PM CDT Telemedicine Department of Sports Medicine in [place], [place] [address] [place] [address] Ahsan Talbert M.D., Ph.D. 200 [place] [address] documented as of this encounter Visit Diagnoses Not on filedocumented in this encounter Additional Health Concerns Assessment Noted Time PHQ-9 Depression Total Score: 5 07/07/19 24 9:17 PM CDT documented as of this encounter Care Teams Stonework Supervisor Relationship Specialty Start Date End Date Elsewhere, Pcp PCP - General Internal Medicine 05/22/18 documented as of this encounter
--- OUTSIDE RECORDS SUMMARY | 2024-05-17 19:33 | XMS_ITS | Encounter Summary ---
Author Organization [facility] Address [address] [place] [address] Care Team Providers Care It Application Support Analyst Name Role Phone Elsewhere, Pcp Primary Care Provider Unavailabl e Reason for Referral * Physical Therapy (Routine) - Closed Specialty Diagnoses / Procedures Referred By Ye lund Referred To Contact Diagnoses Hypermobility Joint Kmaari Danlos Syndrome Unspecified (HCC) Procedures PT or OT eval and treat (first available) Jak Drummond M.D. 200 [place] [address] Phone: tel: fax: [facility] Referral ID Status Reason Start Date Expiration Date Visits Re quested Visits Authorized [id number] Closed 02/16/2024 02/15/2025 1 1 CTOR OF LABOR AND DELIVERY * Physical Therapy (Routine) - Authorized Specialty Diagnoses / Procedures Referred By Contloraine t Referred To Contact Physical Therapy Diagnoses Kamari Danlos Syndrome Unspecified (HCC) Jak Drummond M.D. 200 [place] [address] Phone: tel: fax: Referral ID Status Reason Start Date Expiration Date Visits Requested Visits Authorized [id number] Authorized Patient Preference 02/16/2024 08/17/2025 1 1 CTOR OF LABOR AND DELIVERY Reason for Visit * Outpatient (Routine) - Closed Specialty Diagnoses / Procedures Referred By Contact Referred To Contact Physical Medicine and Rehabilitation Jak Drummond M.D. 200 [place] [address] Phone: tel: fax: Jak Drummond M.D. [address] [place] [address] Phone: tel: fax: Referral ID Status Reason Start Date Expiration Date Visits Re quested Visits Authorized [id number] Closed 12/12/2023 06/12/2025 1 1 Encounter Details Date Type Department Care Team (Latest Contact Info) Description 02/16/2024 8:00 AM DIRECTOR OF LABOR AND DELIVERY Office Visit Department of Physical Medicine and Rehabilitation in [place], [place] [address] [place] [phone] Jak Drummond M.D. [address] [place] [phone] Hypermobility Joint (Primary Dx); Kamari Danlos Syndrome Unspecified (HCC) Social History Tobacco Use Types Packs/Day Years Used Date Smoking Tobacco: Never Smokeless Tobacco: Never Alcohol Use Standard Drinks/Week Comments Yes 1 (1 standard drink = 0.6 oz pur e alcohol) [facility] Utilities Answer Date Recorded In the past 12 months has [facility], gas, oil, or water [employer] threatened to shut off services in your [...] often do you attend chur ch or presybeterian services? More than 4 times [...] Score 0 07/07/2023 [facility] - Occupational Stress Questionnaire Answer Date [...] your living situation today? I have a [facility] place to live 05/22/2023 Education Answer Date Recorded What is the highest level of school you have completed or the highest degree you have received? Some college, no degree 05/24/2020 Sex and Gender Information Value Date Recorded Sex Assigned at Male 10/29/2020 12:38 PM CDT Legal Sex Male 1:45 PM DIRECTOR OF LABOR AND DELIVERY Gender Identity Male 07/15/2019 8:59 AM CDT [...] past without GUILLERMO, now planning GUILLERMO at [facility] the near future, on I believe the [...] driving, and with associated painful cracking). He was also recently hospitalized for malnutrition resulting in GI tube placement. He uses bracing with good effect, and reports that his custom TLSO and his Gila J collar are worn out and he needs new braces. He also has a clamshell custom CTLSO which is very helpful at times but can't use that when out and about or driving. He just started back in school, studying Psychology,including childhood behavioral development, with a manager intermediate goal of being a PA in pediatrics. He still lives with his mom in an accessible home, but when she travels (which is fairly [...] / PLAN #1 Hypermobility, unspecified Kamari Danlos syndrome, genetically proven Klinefelter syndrome #2 Widespread musculoskeletal pain #3 Bilateral hip impingement and labral tears, GUILLERMO surgery planned at [facility] #4 Recurrent peroneal tendon subluxation, surgery planned [...] periods of non-weight bearing over the next year. 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 Procurement of a walker or cane is not feasible as this equipment does not assist with energy conservation or joint protection and is not able to be used post-operatively when he must be iwy-fhyzyn-qteusto. A standard manual wheelchair is not feasible as it is not sufficiently customizable (he has K linefelter syndrome and his upper and lower legs exceed seat depth of standard wheelchair) and is much heavier that an ultra light weight wheelchair which would place increased strain on UE joints during propulsion. Patient must also independently transport the equipment in to and out of his car when attending classes, working or going to medical appointments. In additional to ultra light weight manual wheelchair procurement it is recommended that he also procure a SmartDrive power assist device. The SmartDrive power assist device is an add-on power drive that can be installed onto any manual wheelchair. When the device is used, the manual wheelchair can be operated in a way similar, but not identical to a power wheelchair. The device consists of a drive unit with a battery that attaches und er the chair. The total unit weighs 12.5 pounds and can be completely removed from the wheelchair so the chair can be used without the power-add on unit when desired. With a SmartDrive installed and turned on the user may accelerate the wheelchair with minimal strain on the upper limbs via the turnof a dial installed on the wheelchair. The user turns this dial to desired speed and may adjust as preferred. Once the user gets the wheelchair moving at the desired speed, the SmartDrive will keep it moving at that speed without any pushes, significantly reducing shoulder strain. To slow down or stop the user can turn the dial off. The power assist dramatically reduces energy required by the user over any distance, as well as minimizing effects of chronic upper extremity and back degeneration on mobility and daily functional activities. The SmartDrive will allow the patient to keep using a manual wheelchair while gaining and maintaining independence without having to progress to a power wheelchair or require additional surgical intervention, which will save money as the cost of the SmartDrive system is drastically less than the cost of a new power wheelchair. I will refer him to our wheelchair seating clinic to initiate fitting and paperwork for insurance approval with the hope that we can get him appropriately equipped prior to his first hip surgery. Today's visit was face to face. I have also given him a script for a new cervical orthosis (Parker collar) and a new custom TLSO as his current ones are several years old and the padding has worn out, and they no longer fit appropriately. These need to be custom fit due to his atypical body habitus secondary to Klinefelter's syndrome, and need to have extra padding. Lastly I have given him [...] face and coordination of care): 60 minutes CTOR OF LABOR AND DELIVERY CTOR OF LABOR AND DELIVERY CTOR OF LABOR AND DELIVERY CTOR OF LABOR AND DELIVERY documented in this encounter Plan of Treatment Upcoming Encounters Date Type Department Care Team (Late st Contact Info) Description 05/29/2024 8:00 AM CDT Clinical Communication Virtual Review in [place], [place] 200 [place] [address] 05/31/2024 11:45 AM CDT Office Visit Department of Orthopedic Surgery in [place], [place] [address] [place] [phone] Jose Crawford M.D. [address] [place] [phone] 06/11/2024 1:00 PM CDT Telemedicine Department of Sports Medicine in [place], [place] [address] [place] [phone] Ahsan Talbert M.D., Ph.D. [address] [place] [phone] documented as of this encounter Visit Diagnoses Diagnosis Hypermobility Joint- Primary Kamari Danlos Syndrome Unspecified (HCC) documented in this encounter Additional Health Concerns Assessment Noted Time PHQ-9 Depression Total Score: 5 07/07/19 24 9:17 PM CDT documented as of this encounter Care Teams It Application Support Analyst Relationship Specialty Start Date End Date Elsewhere, Pcp PCP - General Internal Medicine 05/22/18 documented as of this encounter
--- OUTSIDE RECORDS SUMMARY | 2024-05-17 19:33 | XMS_ITS | Encounter Summary ---
Author Organization [employer] Address [address], [place] [address] Care Team Providers Care Sales Development Representative Name Role Phone Eliana Guerra MD Primary Care Provider [phone] Reason for Visit * Auth/Cert Specialty Diagnoses / Procedures Referred By Contac t Referred To Contact Diagnoses Peroneal tendinitis of right lower extremity . Procedures Repair dislocation peroneal tendons with fibular groove deepening and longus to brevis tenodesis LENGTHENING GASTROCNEMIUS EXCISION EXOSTOSIS ANKLE Referral ID Status Reason Start Date Expiration Date Visits Re quested Visits Authorized [id number] 1 1 Encounter Details Date Type Department Care Team (Late st Contact Info) Description 04/27/2024 9:50 AM CDT Ancillary Procedure [facility] [address] [place] [address] Anahi Van MD [address] [place] [address] Social History Tobacco Use Types Packs/Day Years Used Date Smoking Tobacco: Never Assessed Sex and Gender Information Value Date Recorded Sex Assigned at Not on file Legal Sex Male 5:33 PM CHAPERONE Gender Identity Not on file Sexual Orientation Not on file documented as of this encounter Plan of Treatment Upcoming Encounters Date Type Department Care Team (Late st Contact Info) Description 06/06/2024 1:00 PM CDT Appointment Specialty Center [address] [facility] [address] [place] [address] Anahi Van MD [address] [place] [address] 06/11/2024 9:10 AM CDT Appointment Specialty Center [address] [facility] [address] [place] [address] Nilay Ceron MD [address] [facility] [place] [address] documented as of this encounter Procedures Procedure Name Priority Date/Time Associated Diagnosis Comments XR C-ARM 1-1.5 HOURS Routine 04/27/2024 12:47 PM CDT documented in this encounter Results * XR C-Arm 1-1.5 Hours (04/27/2024 12:47 PM CDT) Anatomical Region Laterality Modality X-Ray Angiograph y Narrative 04/27/2024 12:47 PM CDT Fluoroscopy provided by a pathology technologist. Exact fluoroscopy time is documented in end of exam information in EPIC us Anahi Van MD RAD GD Final Result documented in this encounter Visit Diagnoses Not on filedocumented in this encounter Care Teams Sales Development Representative Relationship Specialty Start Date End Date Eliana Guerra MD [address] [place] [address] PCP - General Family Practice 12/04/19 documented as of this encounter
--- OUTSIDE RECORDS SUMMARY | 2024-05-17 19:33 | XMS_ITS | Encounter Summary ---
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 Gender Identity Not on file Sexual Orientation Not on file documented as of this encounter Plan of Treatment Upcoming Encounters Date Type Department Care Team (Late st Contact Info) Description 06/06/2024 1:00 PM CDT Appointment Specialty Center [facility] [address] [place] [address] Anahi Van MD [address] [place] [address] 06/11/2024 9:10 AM CDT Appointment Specialty [place] [address] [facility] [address] [place] [address] Nilay Ceron MD [address] [place] [address] [place] [address] documented as of this encounter Procedures Procedure Name Priority Date/Time Associated Diagnosis Comments EKG 04/27/2024 documented in this encounter Results * EKG (04/27/2024) us Interface Provider EKG Final Resu lt documented in this encounter Visit Diagnoses Not on filedocumented in this encounter Care Teams Network Systems Operator Relationship Specialty Start Date End Date Eliana Guerra MD [address] [place] [address] PCP - General Family Practice 12/04/19 documented as of this encounter
--- OUTSIDE RECORDS SUMMARY | 2024-05-17 19:33 | XMS_ITS | Encounter Summary ---
Author Organization [facility] Address [address] [place] [address] Care Team Providers Care Manager Agency Name Role Phone Elsewhere, Pcp Primary Care Provider Unavailabl e Reason for Referral * Outpatient (Routine) - Authorized Specialty Diagnoses / Procedures Referred By Contac t Referred To Contact Diagnoses Hypermobility Joint Mobility Limited Myofascial Pain Syndrome Procedures DX Thoracic Spine 2 Views Jak Drummond M.D. [address] [place] [address] Phone: tel: fax: [facility] Referral ID Status Reason Start Date Expiration Date V isits Requested Visits Authorized [id number] Authorized 2024 08/09/2025 1 1 * Outpatient (Routine) - Authorized Specialty Diagnoses / Procedures Referred By Contact Referred To Contact Physical Medicine and Rehabilitation Diagnoses Hypermobility Joint Mobility Limited Myofascial Pain Syndrome Jak Drummond M.D. [address] [place] [address] Phone: tel: fax: [facility] Referral ID Status Reason Start Date Expiration Date V isits Requested Visits Authorized [id number] Authorized 2024 11/08/2025 1 1 Encounter Details Date Type Department Care Team (Latest Contact Info) Description 2024 Orders Only Department of Physical Medicine and Rehabilitation in [place], [place] [address] [place] [address] Jak Drummond M.D. [address] [place] [address] Hypermobility Joint (Primary Dx); Mobility Limited; Myofascial Pain Syndrome Social History Tobacco Use Types Packs/Day Years [...] often do you attend chur ch or quaker services? 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 [address] [place] [address] 06/11/2024 1:00 PM CDT Telemedicine Department of Sports Medicine in [address] [address] Ahsan Talbert M.D., Ph.D. [address] [place] [address] Scheduled Orders Name Type Priority Associated Diagnoses Orde r Schedule DX Thoracic Spine 2 Views Imaging RAD - Routine (most inpatients and all outpatients) Hypermobility Joint Mobility Limited Myofascial Pain Syndrome Expected: 2024, Expires: 08/08/2025 Scheduled Referrals Name Type Priority Associated Diagnoses Order Schedule Physical Medicine and Rehabilitation - General consult (clinic) Outpatient Referral Routine Hypermobility Joint Mobility Limited Myofascial Pain Syndrome Expected: 2024, Expires: 08/08/2025 documented as of this encounter Visit Diagnoses Diagnosis Hypermobility Joint- Primary Mobility Limited Myofascial Pain Syndrome documented in this encounter Additional Health Concerns Assessment Noted Time PHQ-9 Depression Total Score: 5 07/07/19 24 9:17 PM CDT documented as of this encounter Care Teams Manager Agency Relationship Specialty Start Date End Date Elsewhere, Pcp PCP - General Internal Medicine 05/22/18 documented as of this encounter
--- OUTSIDE RECORDS SUMMARY | 2024-05-17 19:33 | XMS_ITS | Encounter Summary ---
Author Organization [employer] Address [address], [place] [address] Care Team Providers Care Hydraulic Jack Adjuster Name Role Phone Eliana Guerra MD Primary Care Provider [phone] Reason for Visit * Reason Comments Request For Records Encounter Details Date Type Department Care Team (Late st Contact Info) Description 03/15/2024 Telephone Specialty Center [facility] [address] [place] [address] Anahi Van MD [address] [place] [address] Request For Records Social History Tobacco Use Types Packs/Day Years Used Date Smoking Tobacco: Never Assessed Sex and Gender Information Value Date Recorded Sex Assigned at Not on file 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 Myra Vela 03/21/2024, 4:43 PM LESS WATCHER * Dedra Cortez RN - 03/15/2024 3:36 PM CST Virgil notified and is working on. Dedra Cortez RN 03/15/2024, 3:40 PM LESS WATCHER * Myra Vela - 03/15/2024 3:18 PM CST Images from the original note were not included. Received a fax regarding request that was sent for records from [facility] [employer]. Pleas amend request as appropriate and resubmit. Thanks! Myra Vela 03/15/2024, 3:19 PM LESS WATCHER documented in this encounter Plan of Treatment Upcoming Encounters Date Type Department Care Team (Late st Contact Info) Description 06/06/2024 1:00 PM CDT Appointment Specialty Center [facility] Orthopedics Clinic [address] [place] [address] Anahi Van MD [address] [place] [address] 06/11/2024 9:10 AM CDT Appointment [place] [address] [address] Nilay Ceron MD [address] [place] [address] [place] [address] documented as of this encounter Visit Diagnoses Not on filedocumented in this encounter Care Teams Hydraulic Jack Adjuster Relationship Specialty Start Date End Date Eliana Guerra MD [address] [place] [address] PCP - General Family Practice 12/04/19 documented as of this encounter
--- OUTSIDE RECORDS SUMMARY | 2024-05-17 19:33 | XMS_ITS | Encounter Summary ---
Author Organization [employer] Address [address] [address] Care Team Providers Care Assistant To The Ceo Name Role Phone Eliana Guerra MD Primary Care Provider [phone] Reason for Referral * Consult/Transfer Care (Routine) - New Request Specialty Diagnoses / Procedures Referred By Ye lund Referred To Contact Diagnoses Aftercare following surgery of the musculoskeletal system Anahi Van MD [address] [place] [address] Phone: tel: fax: Referral ID Status Reason Start Date Expiration Date V isits Requested Visits Authorized [id number] New Request 2024 08/08/2025 1 1 Scheduling Instructions [facility] an [facility]. You can quickly schedule your appointment by signing in to your online account at [email or web address] or through the text message you may have received. You can also make an appointment by calling [phone]. We also suggest you call your health insurance provider about your benefits and coverage for this appointment. Question Answer Appointment Urgency? Non-Urgent Reason for visit? Bilateral Hip pathology The patient should be seen by: Orthopaedic Surgeon Comments Dr. Van requesting evaluation by Dr. Nilay Ceron MD * Procedure/Equipment (Routine) - Incomplete Specialty Diagnoses / Procedures Referred By Ye lnud Referred To Contact Diagnoses Aftercare following surgery of the musculoskeletal system Procedures XR Ankle Rt 3 Views Anahi Van MD [address] [place] [address] Phone: tel: fax: Referral ID Status Reason Start Date Expiration Date V isits Requested Visits Authorized [id number] Incomplete 2024 08/08/2025 1 1 Reason for Visit * Reason Comments POST-OP,EXAM Repair dislocation p eroneal tendons with fibular groove deepening and longus to brevis tenodesis, lengthening gastrocnemius, excision exostosis Right ankle 04/27/2024 * Consult/Transfer Care (Routine) - New Request Specialty Diagnoses / Procedures Referred By Ye lund Referred To Contact Orthopedics Diagnoses Bilateral hip dysplasia Jose Pinto [address] [address] Phone: tel: fax: Nilay Ceron MD [address] [facility] [place] [address] Phone: tel: fax: Referral ID Status Reason Start Date Expiration Date V isits Requested Visits Authorized [id number] New Request 04/27/2024 07/27/2025 1 1 Encounter Details Date Type Department Care Team (Latest Contact Info) Description 2024 2:20 PM CDT Office Visit Specialty Center [address] [facility] [address] [place] [address] Anahi Van MD [address] [place] [address] Aftercare following surgery of the musculoskeletal system (Primary Dx) Social History Tobacco Use Types Packs/Day Years Used Date Smoking Tobacco: Never Assessed Sex and Gender Information Value Date Recorded Sex Assigned at Not on file 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 Keep cast clean, dry and intact Referral for Bilateral Hip evaluation Stitches/christy removed without complications, steri-strips applied. Informed patient to leave steri-strips on for 3-4 days and may remove. May shower, let water run over steri-strips and pat dry surgical area, do not soak until incisions are completely healed Pt instructed to call clinic with questions [phone] option 2 - Signs of infection: if symptoms present or concerned for infection call our clinic if within business hours, otherwise will need to be seen by a physician at ER or urgent care. Excessive pain. Increase in redness, tenderness, swelling or red streaks. Appearance of pus An elevated temperature Cast care: Keep your cast dry, a wet cast can severely damage your skin if not dried properly. A wet cast willnot give your fracture the proper support for healing. Plastic bags and plastic food wrap are good coverings to use in wet weather. If it accidentally gets damp, dry it using a nursing program chair on cool setting for 30-60 minutes, depending on the degree of wetness. If it becomes soaked contact our clinic as soon as possible. The casted body part may swell while in a cast. Indications a cast is too tight can include: swelling, pain, numbness, bluish color in the nails, cooler temperature of the fingers, or inability to move the fingers/toes of the extremity in the cast. Pressure can be relieved by elevating the arm/leg above the level of the heart. However, if symptoms continue or worsen, call your medical center right away. Move the fingers/toes on your casted limb at least every hour. Straighten them out and bend them as fully as you can . DO NOT JUST WIGGLE THEM. If you have a decrease in motion or increased pain with movement (not relieved by pain pills), notify your doctor. Sometimes casts can become itchy. This is because they absorb moisture from the skin. Using a fan or hairdryer on the cool setting can be helpful to dry the skin and cast padding. Never stick anything down your cast to scratch. You might injure your skin, or the object could become stuck inside thecast. The arm/leg in a cast will get smaller naturally due to your inability to exercise certain muscles.If the cast becomes too loose, it may not do a proper job. If you are not sure about the looseness of your cast, call your health care provider. Call us if: * You have a painful rubbing or burning inside the cast. * You notice any strange odor or drainage in your cast. * Your cast becomes loose, broken or cracked. If you have any problems or questions, if your cast needs repair or replacement, or if your cast causes pain or skin irritation, call us at [phone], if it is outside of business hours or a weekend/holiday call the careline at [phone] Medications were ordered for you today, if we did not provide a paper prescription it was sent [facility] electronically. Follow up appointments: You will follow up with Anahi Van MD in 4 week(s). OK to take ANY open/available time slot or o/b if needed per Dr. Van X-Rays: You will have non weight bearing, out of cast, Right Ankle x-rays taken with your next orthopedics appointment. Please arrive 15 minutes early to have imaging done prior to seeing your provider. We will see you again on: [] no x-rays [x] w/ x-ray arrive at: Please come to this same location, [address] [place] [address] Appt notes: Post Op w/xr, Repair dislocation peroneal tendons with fibular groove deepening and longus to brevis tenodesis, lengthening gastrocnemius, excision exostosis Right ankle 04/27/2024 If you have an urgent question or concern for your provider and it is after 5pm, on a weekend, or aholiday you can call the nurse care line at [phone]. If you need information about the cost of care you received today, or about an upcoming visit or surgery please call the cost of care line at [phone]. If you need forms completed for work, short term/oysterman disability, FMLA, or school: Please bring any forms to our clinic at [address] [place] [address] as soon as you receive them. It is recommended to bring these forms to the clinic prior to surgery and not on the to the hospital on the day of surgery. You may give these forms to our 3rd floor check-in staff You can also fax them to us at [facility], Attention: Decating Machine Operator, Fax- [phone] Be sure to complete the patient portion of each form and sign as needed prior to giving us your forms. Forms are done in order that they are received. Please allow 7-10 business days for completion. There may be circumstances beyond our control that would require additional days to process forms. If you would like us to provide the completed form to anyone other than yourself (e.g. employer, school, etc.) you will need to sign a form authorizing [facility] to release this information. For additional questions regarding forms, or if you need a letter for work/school, please contact the clinic at [phone] If you have any questions about your visit, your symptoms, your medication, your test results or itis not clear what your diagnosis or treatment plan is please contact us at [phone] or send us a secure message via [employer]. You may receive a survey in the mail regarding your visit today. Your feedback is very important tous, please take a moment to complete the survey which is completely anonymous. If you would like tospeak to someone specifically, you may contact the clinic at [phone] and your call will be directed to someone on our leadership team. Thank you for choosing Anahi Van MD and [facility]. documented in this encounter Progress Notes * Anahi Van MD - 2024 2:20 PM CDT Date of Surgery: 04/27/2024 Pre-Operative Diagnosis: Peroneal tendinitis of right lower extremity Fibular avulsion fracture with subfibular ossicle Subluxation of the peroneal tendons equinus Procedure: Repair dislocation peroneal tendons with fibular groove deepening and longus to brevis tenodesis (Right) LENGTHENING GASTROCNEMIUS (Right) EXCISION EXOSTOSIS ANKLE (Right) Interim History: Paramjit Boyce is a 23 y.o. male who is now 11 days out from his surgery. Following surgery, he was to remain NWB. Physical Exam: Skin: Sutures intact holding appropriate tension along a well healed incision site Neurovascular Exam: Distal sensation intact along the superficial peroneal, deep peroneal, sural, saphenous, and tibial nerve distributions. X-rays: 3 view non-weightbearing of the right ankle are reviewed today. Small osseous body no longer appreciated on mortise view. Impression: 11 days out from surgery doing well Plan: Patient was seen and evaluated in clinic today where the etiology of their current condition was discussed at length. Dressing was removed to reveal well healed incision and intact sutures.Patient has not been complaining of fevers. Sutures were removed without complications; no signs of redness, infection or drainage. They may shower and let water run over incision site, No soaking or submergingfoot/ankle, pat dry with a clean towel and let air dry. They were instructed that no bandage is needed and incision can be covered with a clean sock. They may also begin scar massage and were given instructions on how to perform. Patient's main complaint is muscle spasms unrelieved by Robaxin. Switch patient's Robaxin to Flexeril at this time. Instructed patient to remain nonweightbearing in a long-leg cast at this time. All patient's questions were answered, they expressed understanding, and they are amenable to the aforementioned plan. Weightbearing: NWB Cast/Brace: Long-leg cast Follow up in 4 weeks. X-rays needed at the next visit: ankle, NWB The patient is happy with this plan and all questions are answered today. PRABHJOT LaraM Foot and Ankle Surgery, PGY-1 I saw and evaluated Paramjit Boyce. I agree with the findings and plan of care as documented in the resident note above. I have personally reviewed labs and imaging. Given his unique situation we will do a long leg cast now, and consider weight bearing short leg cast vs boot at next visit. Anahi Van MD documented in this encounter Plan of Treatment Upcoming Encounters Date Type Department Care Team (Late st Contact Info) Description 06/06/2024 1:00 PM CDT Appointment Specialty [place] [address] [facility] [address] [place] [address] Anahi Van MD [address] [place] [address] 06/11/2024 9:10 AM CDT Appointment Specialty [place] [address] [facility] [address] [place] [address] Nilay Ceron MD [address] [facility] [place] [address] Scheduled Referrals Name Type Priority Associated Diagnoses Orde r Schedule Orthopaedic Consult Adult/Peds Referral Routine Aftercare following surgery of the musculoskeletal system Ordered: 2024 documented as of this encounter Results * XR Ankle Rt 3 Views (2024 2:15 PM CDT) Anatomical Region Laterality Modality Lower Extremity, Ankle, Foot & Ankle Computed Radiography 2024 2:15 PM CDT Narrative 05/10/2024 6:32 AM CDT EXAM: XR ANKLE RT 3 VIEWS LOCATION: [facility] DATE: 2024 INDICATION: Repair dislocation peroneal [...] EXAM: XR ANKLE RT 3 VIEWS LOCATION: [facility] DATE: 2024 INDICATION: Repair dislocation peroneal [...] Diagnosis Aftercare following surgery of the musculoskeletal system- Primary Aftercare following surgery of the musculoskeletal system, NEC Aftercare following surgery of the musculoskeletal system Aftercare following surgery of the musculoskeletal system, NEC documented in this encounter Care Teams Assistant To The Ceo Relationship Specialty Start Date End Date Eliana Guerra MD [address] [place] [address] PCP - General Family Practice 12/04/19 documented as of this encounter
--- OUTSIDE RECORDS SUMMARY | 2024-05-17 19:33 | XMS_ITS | Encounter Summary ---
Author Organization [employer] Address [address] [place] [address] Care Team Providers Care Range Master Name Role Phone Eliana Guerra MD Primary Care Provider [phone] Encounter Details Date Type Department Care Team (Late st Contact Info) Description 04/13/2024 Notes/Orders Specialty Center [facility] Orth[facility] Clinic [address] [place] [address] Anahi Van MD [address] [place] [address] Social History Tobacco Use Types Packs/Day Years Used Date Smoking Tobacco: Never Assessed Sex and Gender Information Value Date Recorded Sex Assigned at Not on file 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 Gender Identity Not on file Sexual Orientation Not on file documented as of this encounter Plan of Treatment Upcoming Encounters Date Type Department Care Team (Late st Contact Info) Description 06/06/2024 1:00 PM CDT Appointment Specialty Center [facility] Orthopedics [address] [address] Anahi Van MD [address] [place] [address] 06/11/2024 9:10 AM CDT Appointment Specialty Center [facility] Orthopedics [address] [address] Nilay Ceron MD [address] [place] [address] [place] [address] documented as of this encounter Visit Diagnoses Not on filedocumented in this encounter Care Teams Range Master Relationship Specialty Start Date End Date Eliana Guerra MD [address] [place] [address] PCP - General Family Practice 12/04/19 documented as of this encounter
--- OUTSIDE RECORDS SUMMARY | 2024-05-17 19:33 | XMS_ITS ---
Author Organization [employer] Address [facility] [place] [address] Care Team Providers Care Sales Trainee Name Role Phone Kei Eugene MD Unavailable [phone] Eliana Guerra MD Primary Care Provider Eliana Guerra MD Unavailable [phone] Eliana Guerra MD Unavailable [phone] Unavailable Unavailable Home Infusion Status:Enrolled (Active) Start date:03/05/2024 Enrollment date:03/14/2024 Enrollment reason:Identified using referral data Related service episodes:Enteral (Active) Case Team Name Relationship Phone Anastacia Rodriguez RD I Registered Dietitian Continued Care and Services Coordination This section includes services coordinated for Home [facility]. [facility] Name Services Phone [facility] ONLY Home Nursing [phone]
--- OUTSIDE RECORDS SUMMARY | 2024-05-17 19:33 | XMS_ITS ---
Author Organization [facility] Address [address] [place] [address] Care Team Providers Care Alliances Consultant Name Role Phone Kei Eugene MD Unavailable [phone] Eliana Guerra MD Primary Care Provider Eliana Guerra MD Unavailable [phone] Eliana Guerra MD Unavailable [phone] Unavailable Unavailable Enteral Status:Enrolled (Active) Start date:03/05/2024 Enrollment date:03/14/2024 Linked medications:Nutritional Supplements (Active) Linked problems:Epigastric abdominal pain (Active), Nausea (Active), Weight loss (Active) Related program episode:Home Infusion (Active) Continued Care and Services Coordination
--- OUTSIDE RECORDS SUMMARY | 2024-05-17 19:33 | XMS_ITS | Encounter Summary ---
Author Organization [facility] Address [address], [place] [address] Care Team Providers Care Video Game Programmer Name Role Phone Eliana Guerra MD Primary Care Provider [phone] Reason for Referral * Procedure/Equipment (Routine) - New Request Specialty Diagnoses / Procedures Referred By Contac t Referred To Contact Home Medical Equipment Diagnoses Peroneal tendinitis of right lower extremity Procedures Sami (Venus) Anahi Van MD [address] [place] [address] Phone: tel: fax: [email or web address] [place] [address] Referral ID Status Reason Start Date Expiration Date V isits Requested Visits Authorized [id number] New Request 04/27/2024 07/27/2025 1 1 * Procedure/Equipment (Routine) - New Request Specialty Diagnoses / Procedures Referred By Contac t Referred To Contact Home Medical Equipment Diagnoses Pain Procedures Sami (Venus) Anahi Van MD [address] [place] [address] Phone: tel: fax: [facility] [email or web address] [place] [address] Referral ID Status Reason Start Date Expiration Date V isits Requested Visits Authorized [id number] New Request 04/27/2024 07/27/2025 1 1 * Procedure/Equipment (Routine) - Incomplete Specialty Diagnoses / Procedures Referred By Ye lund Referred To Contact Diagnoses Pain Procedures Crutches - Special Anahi Van MD [address] [place] [address] Phone: tel: fax: Referral ID Status Reason Start Date Expiration Date V isits Requested Visits Authorized [id number] Incomplete 04/27/2024 07/27/2025 1 1 * (Routine) - Incomplete Specialty Diagnoses / Procedures Referred By Ye lund Referred To Contact Procedures XR C-Arm 1-1.5 Hours XR C-Arm 3.5-4 Hours Anahi Van MD [address] [place] [address] Phone: tel: fax: Referral ID Status Reason Start Date Expiration Date V isits Requested Visits Authorized [id number] Incomplete 04/27/2024 07/27/2025 1 1 Reason for Visit * Auth/Cert Specialty Diagnoses / Procedures Referred By Ye lund Referred To Contact Diagnoses Peroneal tendinitis of right lower extremity . Procedures Repair dislocation peroneal tendons with fibular groove deepening and longus to brevis tenodesis LENGTHENING GASTROCNEMIUS EXCISION EXOSTOSIS ANKLE Referral ID Status Reason Start Date Expiration Date Visits Re quested Visits Authorized [id number] 1 1 Encounter Details Date Type Department Care Team (Latest Contact Info) Description 04/27/2024 8:05 AM CDT - 04/27/2024 3:32 PM CDT Hospital Encounter [facility] [address] [place] [id number] Anhai Van MD [address] [place] [address] Pain (Primary Dx); Peroneal tendinitis of right lower extremity Discharge Disposition: Home Social History Tobacco Use Types Packs/Day Years Used Date Smoking Tobacco: Never Assessed Sex and Gender Information Value Date Recorded Sex Assigned at Not on file Legal 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 [facility] Surgery: Please contact your clinic during regular [...] Pain. 20 Tablet 05/11/2024 Incontinence Supply Disposable ([employer]RI[employer]) For home use. 12/20/2023 [...] 9 Tablet 04/27/2024 3:17 PM CDT 04/27/2024 HYDROcodone-acet aminophen (NORCO) 5-325 MG tabletIndication s:Pain Take 1-2 Tablets by mouth every 6 hours as needed for Pain. Indications: Pain 15 Tablet 04/27/2024 3:17 PM CDT 04/27/2024 documented as of this encounter Procedure Notes * Anahi Van MD - 04/27/2024 3:32 PM CDT [facility] Operative Note Surgery Date: 04/27/2024 Surgeons and [...] for the tendons. We then performed a [id number] tenodesis using 2-0 FiberWire whip stitching up [...] Dockery MD - 04/27/2024 1:11 PM CDT [facility] Brief Operative Progress Note Surgery Date: 04/27/2024 [...] Dockery MD PGY-2, Orthopaedic Surgery Pager #: [phone] documented in this encounter Plan of Treatment Upcoming Encounters Date Type Department Care Team (Late st Contact Info) Description 06/06/2024 1:00 PM CDT [facility]oint[facility] [address] [place] [address] Anahi Van MD [address] [place] [address] 06/11/2024 9:10 AM CDT [facility]oint[facility] [address] [place] [address] Nilay Ceron MD [address] [facility] [place] [address] documented as of this encounter Procedures Procedure [...] 12:47 PM CDT Fluoroscopy provided by a radiology practitioner assistant. Exact fluoroscopy time is documented in end [...] (SUBLIMAZE) injection 25-50 mcg 25-50 mcg, Intravenous, [id number], Pain, Starting on Tue04/27/24 at 1251, Until [...] (NORMODYNE) injection 5 mg 5 mg, Intravenous, [id number], Blood Pressure >, Hypertension SBP greater than [...] (LOPRESSOR) injection 1-2 mg 1-2 mg, Intravenous, [id number], See administration instructions, Starting on Tue04/27/24 at [...] Pre-op 1053 (Started - Prov ider: Gene Patino APRN, ASSISTANT INFANT TEACHER) lidocaine PF (XYLOCAINE) 1 % injection 1 [...] (SUBLIMAZE) injection 25-50 mcg 25-50 mcg, Intravenous, [id number], Pain, Starting on Tue04/27/24 at 1251, Until [...] (NORMODYNE) injection 5 mg 5 mg, Intravenous, [id number], Blood Pressure >, Hypertension SBP greater than [...] (LOPRESSOR) injection 1-2 mg 1-2 mg, Intravenous, [id number], See administration instructions, Starting on Tue04/27/24 at [...] (only) documented in this encounter Care Teams Video Game Programmer Relationship Specialty Start Date End Date Eliana Guerra MD [address] [facility] [address] PCP - General Family Practice 12/04/19 documented as of this encounter
== END 2024-05-17 20:04 | disposition home or self-care (01) ==
PROVIDERS: Emergency Provider Emergency Medicine; PCP Family Medicine
DX: N39.0 Urinary tract infection, site not specified (principal); M25.532 Pain in left wrist
CPT/HCPCS: 36415; 73110; 80048; 83605; 85025; 87040; 96365; 96368; 96375; 99283; 99284; J0295; J0696; J2405; J7030

== ENCOUNTER 2024-06-06 09:45 | Outpatient (RCR) | payer BC, SELFPAY | END 2024-10-04 23:59 | disposition home or self-care (01) | PROVIDERS: PCP Family Medicine; Visit Provider Orthopaedic Surgery | DX: M25.339 Other instability, unspecified wrist (principal); Q79.60 Ehlers-Danlos syndrome, unspecified; M25.532 Pain in left wrist; M25.531 Pain in right wrist; M25.512 Pain in left shoulder; M25.511 Pain in right shoulder; M25.551 Pain in right hip; Q65.89 Other specified congenital deformities of hip; R53.1 Weakness; Z51.89 Encounter for other specified aftercare | CPT/HCPCS: 97035; 97110; 97140; 97166; X5282 ==

== ENCOUNTER 2024-06-06 10:45 | Outpatient (RCR) | payer BC, SELFPAY | END 2024-10-04 23:59 | disposition home or self-care (01) | PROVIDERS: PCP Family Medicine; Visit Provider Orthopaedic Surgery | DX: Q65.89 Other specified congenital deformities of hip (principal); G89.29 Other chronic pain; M25.512 Pain in left shoulder; M25.511 Pain in right shoulder; M35.9 Systemic involvement of connective tissue, unspecified; M25.559 Pain in unspecified hip; M54.9 Dorsalgia, unspecified; M41.9 Scoliosis, unspecified; M94.261 Chondromalacia, right knee; M22.2X1 Patellofemoral disorders, right knee; M22.2X2 Patellofemoral disorders, left knee; Z51.89 Encounter for other specified aftercare | CPT/HCPCS: 97035; 97112; 97140; 97163; 97535 ==

== ENCOUNTER 2024-08-25 22:45 | Emergency (ER) | payer BC, SELFPAY ==
--- OUTSIDE RECORDS SUMMARY | 2024-07-04 14:51 | XMS_ITS | Encounter Summary ---
Author Organization [facility] Address [address], [place] [address] Care Team Providers Care Pharmacy Intake Technician Name Role Phone Eliana Guerra MD Primary Care Provider [phone] Reason for Referral * Consult/Transfer Care (Routine) - New Request Specialty Diagnoses / Procedures Referred By Contac t Referred To Contact Diagnoses Chronic pain syndrome Impaired mobility and ADLs Nithya Jacobs MD [address] [place] [address] Phone: tel: fax: Referral ID Status Reason Start Date Expiration Date V isits Requested Visits Authorized [id number] New Request 07/13/2024 10/12/2025 1 1 Scheduling Instructions <!--EPICS--> Your provider has recommended an appointment with [facility]. You may call [phone] to schedule your appointment. If you prefer, a carbon electrodes supervisor will contact you within the next 3 bus iness days to assist you in setting up this appointment. <!--EPICE--> Question Answer Appointment Urgency? Non-Urgent Reason for visit? f/u Dr. Butler re weakness,mobility= may need EMG * Consult/Transfer Care (Routine) Specialty Diagnoses / Procedures Referred By Contac t Referred To Contact Diagnoses Chronic bilateral low back pain without sciatica [address] [address] Phone: tel: Referral ID Status Reason Start Date Expiration Date Visits Re quested Visits Authorized Scheduling Instructions This order is your clinician's recommendation for a service and is not an insurance referral which authorizes payment. The recommended service and/or location may not be covered by your insurance plan. Please call the number on your insurance card to find out your specific benefits and coverage for the recommended services and/or location. If you need help scheduling the recommended services, please ask your clinician's staff to assist you. Question Answer Appointment Urgency? Non-Urgent The patient should be seen by: Orthopaedic Surgeon Reason for visit? followup Ernst re spine,wrist Comments * Consult/Transfer Care (Routine) - New Request Specialty Diagnoses / Procedures Referred By Ye lund Referred To Contact Diagnoses Peroneal tendinitis of right lower extremity Nithya Jacobs MD [address] [place] [address] Phone: tel: fax: Referral ID Status Reason Start Date Expiration Date V isits Requested Visits Authorized [id number] New Request 07/13/2024 10/12/2025 1 1 Scheduling Instructions Your clinician has recommended an appointment with [facility]. You can quickly schedule your appointment by signing in to your online account at [email or web address] or through the text message you may have received. You can also make an appointment by calling [phone]. We also suggest you call your health insurance provider about your benefits and coverage for this appointment. Question Answer Appointment Urgency? Non-Urgent The patient should be seen by: Orthopaedic Surgeon Reason for visit? anahi Van- followup R ankle surgery * Consult/Transfer Care (Routine) - New Request Specialty Diagnoses / Procedures Referred By Ye lund Referred To Contact Diagnoses Chronic pain syndrome S/P gastrostomy (HRC) Nithya Jacobs MD [address] [place] [address] Phone: tel: fax: [facility] [place] [address] Phone: tel: fax: Referral ID Status Reason Start Date Expiration Date V isits Requested Visits Authorized [id number] New Request 07/13/2024 10/11/2024 1 1 Scheduling Instructions Your clinician has recommended an appointment with [facility] for your ongoing patient care. You can quickly make your appointment online at [email or web address]. You can also call [phone] for help scheduling your appointment. We suggest you call your health insurance company about your coverage and benefits for this appointment. Question Answer Appointment Urgency? Within 2 weeks What type of follow up? IP Discharge Comments Primary Care Provider: Eliana Guerra MD Reason for Visit * Auth/Cert Specialty Diagnoses / Procedures Referred By Contac t Referred To Contact Diagnoses Physical deconditioning . Referral ID Status Reason Start Date Expiration Date Visits Re quested Visits Authorized [id number] 1 1 Encounter Details Date Type Department Care Team (Latest Contact Info) Description 07/04/2024 2:51 PM CDT - 07/13/2024 10:24 AM CDT Hospital Encounter [facility] C52 [address] [place] [address] Nithya Jacobs MD [address] [place] [address] Rosalia Navarro DO [address] [place] [address] Anahi Hinds MD [address] [place] [address] Anxiety (HRC) [F41.9] (Primary Dx); Chronic pain syndrome; Impaired mobility and ADLs; S/P gastrostomy (HRC); Peroneal tendinitis of right lower extremity; Chronic bilateral low back pain without sciatica Discharge Disposition: Home Social History Tobacco Use Types Packs/Day Years Used Date Smoking Tobacco: Never Assessed [facility] Utilities Answer Date Recorded In the past 12 months has th e electric, gas, oil, or water company threatened to shut off services in your home? No 07/04/2024 Humiliation, Afraid, Rape, and Kick questionnair e Answer Date Recorded Within the last year, have y ou been afraid of your partner or ex-partner? No 07/04/2024 Within the last year, have y ou been humiliated or emotionally abused in other ways by your partner or ex-partner? No Within the last year, have y ou been kicked, hit, slapped, or otherwise physically hurt by your partner or ex-partner? No 07/04/2024 Within the last year, have y ou been raped or forced to have any kind of sexual activity by your partner or ex-partner? No 07/04/2024 Hunger Vital Sign Answer Date Recorded Within the past 12 months, y ou worried that your food would run out before you got the money to buy more. Never true 07/05/19 25 Within the past 12 months, t he food you bought just didn't last and you didn't have money to get more. Never true 07/04/2024 PRAPARE - Transportation Answer Date Re corded In the past 12 months, has l ack of transportation kept you from medical appointments or from getting medications? No 06/08 In the past 12 months, has l ack of transportation kept you from meetings, work, or from getting things needed for daily living? No 07/04/2024 Housing Stability Vital Sign Answer Tor e Recorded In the last 12 months, was t here a time when you were not able to pay the mortgage or rent on time? No 07/04/2024 In the past 12 months, how m any times have you moved where you were living? 0 07/04/2024 At any time in the past 12 m [facility], were you homeless or living in a retirement (including now)? No 07/04/2024 Sex and Gender Information Value Date Recorded Sex Assigned at Not on file Legal Sex Male 5:33 PM [employer] Gender Identity Not on file Sexual Orientation Not on file documented as of this encounter Last Filed Vital Signs Vital Sign Reading Time Taken Comments Blood Pressure 118/67 07/13/2024 6:00 AM CDT Pulse 99 07/13/2024 6:00 AM CDT Temperature 36.4 C (97.6 F) 07/13/2024 6:00 AM CDT Respiratory Rate 18 07/13/2024 6:00 AM CDT Oxygen Saturation 99% 07/13/2024 6:00 AM CDT Inhaled Oxygen Concentration - - Weight 77.1 kg (170 lb) 07/11/2024 6:00 AM CDT Height 185.4 cm (6' 1) 07/04/2024 4:00 PM CDT Body Mass Index 22.43 07/04/2024 4:00 PM CDT documented in this encounter Functional Status documented as of this encounter Discharge Summaries * Nithya Jacobs MD - 07/13/2024 10:24 AM CDT Discharge summary dictated #[id number] Nithya Jacobs MD * Nithya Jacobs MD - 07/13/2024 12:00 AM CDT NAME: KRUNAL SALTER CSN: [id number] DISCHARGE SUMMARY PM AND R DISCHARGE SUMMARY DATE OF ADMISSION: 07/04/2024 DATE OF DISCHARGE: 07/13/2024 : 2000 REASON FOR ADMISSION: Mr. Salter is a 24-year-old male, [facility], who resides in [place], [place]. 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 He presented to [facility] on 06/19/2024 with complaints of falls, weakness, and malaise. He described getting weaker in the previous few weeks. He had several orthopedic procedures and falls. He described neurogenic bladder with urinary tract infections. He does follow with Urology at [facility]. He had been straight-cathing. Urine cultures at [facility] had shown Carmen, and he was treated with fluconazole, then treated for E coli on 06/14. He had been prescribed Bactrim, but had not started taking it. Cystoscopy at [facility] on 06/18 showed erythematous patches with a presenting diagnosis of cystitis. He had become weaker, had a number of falls. It was taking the assist of 2 for him to do his ADLs. He noted as well his mother was having surgery and was unable to care for him. He had recent placement of a percutaneous gastrostomy to provide additional nutrition. He was having difficulty tolerating the volume of feeds at 125 mL/h given nausea. In the emergency room, CT of the head, cervical, thoracic, and lumbar spine showed no acute fractures or abnormalities. Labs were reassuring, and urinalysis was negative. Subsequent full workup of weakness included full spine MRI, which showed no acute issues or obviousspinal cord impingement or stability. Multiple consultants evaluated him with radiographic negativeresults for his weakness. Given hypermobility syndrome, he has a history of wearing numerous casts and splints, all of which he has kept. He has a history of Kaw J collar. He has previous AFOs. He had been prescribed a new TLSO, but had not been fabricated given the feeding tube. He subsequently did have one fabricated here. Note that it is worn for comfort only as there is no neurologic indication . He was seen by Neurology. He continued on intermittent catheterization for a period of time. He had complaints of left wrist pain with a history of left hand fusion with limited range. MRI showed tendinitis, but no fracture or evidence of tendon rupture. He noted wanting a left hand arm ulnar gutter cast and stated that removable braces and splints had not worked for him. They did not feela cast was indicated nor were there any weightbearing restrictions. He declined wanting removable braces. Notes some history of possible loss of consciousness or syncope. EKG showed no obvious arrhythmia. Echo showed no issues with valves or ejection fraction. Some question of dehydration. Recommend 30-day event monitor as outpt. Note that he is followed by Cardiology through [facility] and they can pursue this further. He has a longstanding history of chronic pain syndrome with acute pain exacerbation, seen at [facility] as [facility]. Initially, he was on both IV Dilaudid as well as oxycodone. He tried a Butrans patch, which made the pain worse. At the time of admission, he was on low dose p.r.n. oxycodone, low dose p.r.n. Valium, scheduled gabapentin, and p.r.n. Flexeril as well as p.r.n. Tylenol and NSAIDs. Asnoted, he has a TLSO for stability for back pain, working on stabilization of the left wrist. History of apparent malnutrition with gastrojejunostomy. He has been followed by the principal archaeologist here. He is on a regular p.o. diet as well. Note that he had surgery with Dr. Anahi Van on 04/27/2024. On admission, he was in bilateral lower extremity casts, which were subsequently removed. Surgery was repair of peroneal tendon with fibular groove deepening and longus to brevis tenodesis on the right, lengthening of the gastroc on the right, and excision of exostosis of the ankle on the right. Incisions were well healed. He was seen by Dr. Van, who ordered short AFOs, which were provided.She requested followup 2-3 weeks-weightbearing as tolerated He was evaluated by PM and R, PT, and OT. He was requiring assist of 1 to squat pivot to and from his wheelchair. He had recently obtained his own wheelchair. He initially was in a CAM boot. Chair eryn Quickie with a You cushion. This is working well for him, although he noted it would not fit through the doors of his bathroom or bedroom at home. He lives with his mother in an accessible home. There is a tub in the bathroom. There is a tub bench as his mother recently had total knee arthroplasty. He is felt to be a good candidate for intensive inpatient rehab and was admitted on 07/04/2024. 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 In addition to [facility] and [place], he is followed at [facility] as well as [facility]. Per chart, history of left footdrop. FAMILY HISTORY: Parents in good health. Sister in good health. 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 No tobacco use. Occasional alcohol use. Has worked at the [employer] in [place]. ADDITIONAL REVIEW OF SYSTEMS: CRP 0.7. CBC normal. BMP normal. Folate normal. Vitamin B1 elevated, 283. Vitamin B12 normal. CK normal. Sedimentation rate normal. Cystatin C normal. Cystatin GFR 103. Blood cultures, no growth. Urine culture, no growth. Magnesium normal. Mode is an 18-Monegasque 3.5. MRI of the left hand: No acute fracture, contusion. Subcutaneous edema, dorsum of the hand and wrist. No abscess. Extensor compartment tenosynovitis. Left hand film: Osseous fragment dorsal to the carpal bones, lateral view, could be related to remote trauma or surgery. As noted, MRI of the lumbar spine: No acute findings. Mild lumbar spondylosis. No significant central or foraminal stenosis. Chronic atrophy, right iliopsoas. Thoracic spine; mild thoracic spondylosis. No significant central or foraminal stenosis. Cervical spine; mild cervical spondylosis. No significant central or foraminal stenosis. Head CT negative. CTs of the cervical, thoracic, and lumbar spine negative. Right ankle x-ray, 06/06; incomplete healing of distal fibula, status post fibular groove deepening. Nondisplaced linear bony lucencies. No change in alignment. Small bone fragment at tip of the lateral malleolus, unchanged. Some soft tissue swelling. Ankle mortise intact. Note that patient has a history of multiple casts on both upper and lower extremity as well as a hip spica. He has had multiple upper extremity custom splints made. He now has 2 sets of bilateral AFOs. He has kept all of these recommendations, is not to create anymore before finding out what he has. PHYSICAL EXAMINATION: On the date of discharge: Vital Signs: Weight 77 kg, BMI 21.95. Temperature 97.6, pulse 99, blood pressure 118/67, respirations 18, and oxygen saturation 99%. General: Reveals a young male, in no acute distress. He is alert, oriented, and interactive. He is frequently on his phone. HEENT: Extraocular movements are full. No facial weakness. No dysarthria. Good cervical range of motion. He is wearing a TLSO for comfort. He has good upper extremity range of motion and strength throughout. He has had significant gain in lower extremity strength. He is ambulating with a walker andbilateral AFOs. He is up independently in his room. He is up to the toilet independently. Recommending initially someone with him on stairs. Will benefit from ongoing outpatient PT. Excellent electronics scale tester and pinch strength, both upper extremities. Good fine motor coordination. He is independent with ADLs.He did have an ulnar gutter splint made, which he did not wear and declined adjustments. Has a tub bench. Declined a commode, but did not really need one as able to ambulate into the bathroom. HOSPITAL COURSE: The following problems were addressed during the patient's stay on PM and R: 1. Initial diagnosis of possible radiographic-negative possible traumatic myelopathy. However, has made significant gains, did not have examination consistent with this. If weakness does not resolve,would recommend EMG with his claim specialist at [facility]. [facility]. 2. Recent surgery in April with Dr. Anahi Van to repair dislocation of peroneal tendons with fibular groove deepening and longus to brevis tendinosis. Was seen by Dr. Van on 07/04. She ordered short AFOs, which were provided. He will be seen back in followup with her. Note that he now has 2 pairs of lower extremity AFOs. 3. Back pain. Examination including CTs and MRIs entirely negative. Does have a TLSO for stabilization. This is not required neurologically. He does have followup with Orthopedics at [facility]. 4. Questionable history of POTS versus syncope. No issues noted during his stay. He is followed at Cardiology at [facility] and should have a 30-day event monitor. 5. Chronic pain syndrome. Was seen by Pain here. Goal of minimizing narcotics. Did not feel he needed Valium. He is on gabapentin 900 mg t.i.d. though has been declining some, p.r.n. Tylenol, p.r.n. Flexeril, and p.r.n. oxycodone. He was on all of these other than the gabapentin prior to his admission, so these were not refilled here. Gabapentin was filled for him. Valium should not be used. 6. History of malnutrition. His GJ was changed to a Mode while here. Granulation tissue was treated with silver nitrate. He has been eating very well. He has been followed by the dietitian. He has a very adequate intake without tube feedings and does not qualify for tube feedings, do not recommend them at the time of discharge. 7. History of questionable neurogenic bladder with retention. Have done multiple postvoid bladder scans here, has no evidence of any retention. Urine cultures have been negative. Managing bladder viatimed voids and managing himself.Doot recommend cathterization 8. Questionable neurogenic bowel. Have placed him on a daily bowel program, is managing well per himself. 9. History of anal fissure with bleeding on 06/23, no recurrence. 10. Gastroesophageal reflux disease. Has been on a PPI. We will continue on this at discharge. Alsohad previously been described both Cesar and Cathy. 11. History of anxiety and depression. Was seen by Rehab Psych here. Continue fluoxetine 20 mg daily. Does have a therapist closer to home and should follow up there. 12. Dependence in mobility: Has made significant gains, is independent from his wheelchair, is up with a walker short distances. Recommend someone with him at least presently for longer distances or on stairs, but is making significant gains and will not require this long. He is able to travel. 13. Dependence in self-cares: Doing all of his cares independently including arranging most things outside of here and discharge. Did not have contact with family.Should not drive until driving reevalated and cleared-state to be notified 14. DVT prophylaxis: Initially on enoxaparin, discontinued. 15. Code status: Full. 16. Therapeutic rec: Leisure skills and community reintegration. 17. Rehab Psych saw him as noted above. 18. Pressure ulcer risk assessment: None noted during hospital stay. 19. Clinically significant medication issues: None noted during hospital stay. 20. Discharge planning: As noted, did not have contact with mother. Patient arranged all of this himself. He does have a piano case maker, who was contacted by the social research assistant. We were contacted by a operational intelligence officer, release signed, and they will be reviewing records. He has a friend picking him upto take him home, where he lives with his mother. He will have outpatient followup primarily through [facility] and [facility]. He will follow up with Dr. Van regarding his recent surgery. 21. Diet is regular. He has been eating quite well. 22. Left upper extremity pain: Was seen by Plastics. No restrictions to any of his movement. Was given, as noted, a splint, which he has not used and did not want to have adapted. DISCHARGE MEDICATIONS: Acetaminophen 650 mg q.6 hours as needed, famotidine 20 mg b.i.d., fluoxetine 20 mg daily, ibuprofen p.r.n., loratadine 10 mg daily, and Reglan 5 mg t.i.d. All of these previously prescribed per his Primary. Omeprazole 20 mg b.i.d., also per Primary. Flexeril 5 mg t.i.d. per previous. Gabapentin 900 mg t.i.d., this prescription is new. Polyethylene glycol 17 g daily as needed, Dulcolax suppository as needed. Note, Valium has been discontinued and is not recommended. DISCHARGE INSTRUCTIONS: Activity; up with walker. TLSO and AFOs as needed, none required, wean off as able. If weakness persists, should have EMG with his [facility] claim specialist. Managing bowel and bladdervia timed toileting. No catheterization recommended or needed. No driving until driving reevaluatedand cleared. Has a tub bench at home. Tube feeding not indicated. Tube feeding site care. He will have PT at [facility]. Do not recommend alcohol with present weakness. He will have orthopedic followup with Dr. Van as well as orthopedic followup at [facility]. He will have PM and R followup at [facility] and primary care followup with Dr. Eliana Guerra. He is on a regular diet. Note, we have had an extensive discussion regarding keeping all of his care in 1 system. He had wanted to change to an entirely new set of physicians; however, all of his care is through [facility] and [facility] and is being discharged back to there other than for seeing Dr. Van. Some concern for possible FND versus secondary gain. Have also recommended avoiding cast and/or splinting and working on muscular strengthening, joint stabilization exercises to manage his pain. PM and R physician is Dr. Jak Drummond at [facility]. Urology through [facility], Kate Egan. No actual bladder issues noted while on our unit. Family Medicine, Dr. Eliana Guerra through [facility]. Psychology followup, Una Apodaca, [facility], [facility]. CONDITION AT THE TIME OF DISCHARGE: Good. Totally temporarily disabled. He already has a wheelchairfrom previous. He does not require any other new equipment. Medications are as noted above. Over 30 minutes spent on discharge including attendance at team meeting for coordination of care and discharge planning. NITHYA JACOBS MD RMK/AQS /[id number] documented in this encounter Discharge Instructions * Discharge Instr - Activity* Karissa Santa, PT - 07/12/2024 3:33 PM CDT Rehab Therapy Discharge Recommendation Recommended Supervision: Work Shift - can be alone about 8 hours during the day; Assistance Needed Transfers: no assistance needed Walking: supervision/instructions, someone in the room to give reminders or directions and use walker Stairs: supervision/instructions, someone in the room to give reminders or directions and can use just one rail Dressing: no assistance needed Toileting: no assistance needed- for safety use urinal, supervision walking to bathroom or WC transfer to commode Bathing: no assistance needed- tub bench Grooming (brushing teeth, shaving, etc): no assistance needed Swallowing Recommendations: no concerns with swallowing Meal Preparation: No assistance needed- wheelchair level Housekeeping: Assistance from managed care nurse or service to do heavy household maintenance, such as shoveling, raking, mowing and home repairs Medication Management: No assistance needed; currently able to take care of all aspects of medication management independently Money Management: No assistance needed; currently able to independently manage a budget, taxes and other high-level financial skills (such as investments) Shopping/Outings: Assistance with all activities outside the home Occupational Therapy Equipment Needs: None Physical Therapy Equipment Needs: Has own equipment (Has own equipment, provided a FWW) Vendor: None Recreational Therapy: When leaving the hospital, we recommend: adaptation for, assistance for, home- based leisure interests, community-based leisure interests, transportation assistance Transportation Plan: Rides from others, Disability Parking Certificate Home Exercise Programs Physical Therapy Home Program: Physical Therapy MedBridge Exercise log-in code: Occupational Therapy Home Program: Occupational Therapy MedBridge Exercise log-in code: Speech Therapy Home Program: Speech Therapy MedBridge Exercise log-in code: If you were assigned a [employer] exercise log-in code, go to [email or web address] and enter your code to begin your exercises. * Discharge Instr - Other Orders* Shagufta Strauss RN - 07/13/2024 8:04 AM CDT .avs * Discharge Instr - Wound Care* Shagufta Strauss RN - 07/13/2024 8:05 AM CDT Fall Prevention Recommendations Follow therapy recommendations around equipment use and activity progression Remove trip hazards to keep pathways clear in the home Remove throw rugs Keep frequently used items in easy to reach places Use non-slip mats in the bathtub and on shower floors Improve lighting in your home in all areas Wear shoes or non-slip footwear inside the house documented in this encounter Medications at Time of Discharge acetaminophen (TYLENOL) 325 MG tabletIndicatio ns:Pain Take 2 Tablets (650 mg) by mouth every 6 hours as needed. Indications: Pain 100 Tablet 11 5 bisacodyl (DULCOLAX) 10 MG suppositoryIndi cations:Constip ation Unwrap and insert 1 Suppository (10 mg) rectally daily as needed for Constipation .No stool in the last 3 days. Indications: Constipation 30 Each 3 07/13/2024 9:00 AM CDT 5 cyclobenzaprine (FLEXERIL) 5 MG tablet Take 1 Tablet (5 mg) by mouth three times a day as needed for Muscle Spasms. 5 famotidine (PEPCID) 20 MG tabletIndicatio ns:Gastroesopha geal Reflux Disease Take 1 Tablet (20 mg) by mouth two times a day. Indications: Gastroesophageal Reflux Disease 5 FLUoxetine (PROZAC) 20 MG capsule Take 1 Capsule (20 mg) by mouth daily. 90 Capsule 5 07/06/19 26 gabapentin (NEURONTIN) 300 MG capsuleIndicati ons:nerve pain Take 3 Capsules (900 mg) by mouth three times a day. Indications: nerve pain 90 Capsule 07/13/2024 9:00 AM CDT 5 07/14/19 26 ibuprofen (MOTRIN) 400 MG tabletIndicatio ns:Pain Take 1 Tablet (400 mg) by mouth every 6 hours as needed for Pain (May be given with other analgesics). Indications: Pain 100 Tablet 11 5 loratadine (CLARITIN) 10 MG tablet Take 1 Tablet (10 mg) by mouth two times a day. 5 metoclopramide (REGLAN) 5 MG tabletIndicatio ns:Gastroesopha geal Reflux Disease Take 1 Tablet (5 mg) by mouth three times daily before meals. Indications: Gastroesophageal Reflux Disease 5 omeprazole (PRILOSEC OTC) 20 MG enteric coated tabletIndicatio ns:Gastroesopha geal Reflux Disease Take 1 Tablet (20 mg) by mouth two times a day. Indications: Gastroesophageal Reflux Disease 5 polyethylene glycol 3350 (GLYCOLAX) 17 GM/SCOOP powderIndicatio ns:Constipation Take 17 g by mouth daily as needed. Fill to top of indicated section in lid (17 grams). Mix in 4 to 8 ounces of a beverage and drink as directed. Indications: Constipation traZODone (DESYREL) 50 MG tablet Take 1 Tablet (50 mg) by mouth daily at bedtime. documented as of this encounter Progress Notes * Brandon Cote RN - 07/13/2024 6:54 AM CDT [facility] Plan of Care Note Assessment: TF feeding Plan: promote sleep and rest Subjective: I dont I think can attend the therapy since Im going to be DC in the morning Objective: Patient alert and oriented X4. TF ongoing compleat 1.4 at 80ml/hr with 60 ml waterflush.Denies SOB, Chest pain, Dizziness or lightheadedness . denies pain. Refused gabapentin. Take pills whole with thins.1x incontinence, LBM 07/12. Up adlib in room. Call light within reach. Calls appropriately. Needs attended. Slept approx 8hrs. BP 118/67 (BP Cuff Size: Regular) Pulse 99 Temp 97.6 ??F (36.4 ??C) (Oral) Resp 18 Ht 6' 1(1.854 m) Wt 77.1 kg (170 lb) SpO2 99% BMI 22.43 kg/m?? --- End of Report --- * Nithya Jacobs MD - 07/12/2024 9:16 AM CDT [facility] PM&R Progress Note () Patient: Krunal Salter Date of service: 07/12/2024 Diagnosis: weakness SUBJECTIVE: Slept well Doing bowel program per self Discussed with principal archaeologist-does not need or quakify fir tube feeding-pt states he has some at home Continues concern about back pain-does note he was in midst of workup when hospitalized-will followup [facility] OBJECTIVE: Filed Vitals: 07/10/24 1746 07/11/24 0600 07/11/24 1635 07/12/24 0621 BP: 126/70 118/58 111/68 115/56 Pulse: (!) 105 93 99 90 Resp: Temp: 98.2 ??F (36.8 ??C) 98.2 ??F (36.8 ??C) 98 ??F (36.7 ??C) 97.9 ??F (36.6 ??C) TempSrc: Nasal Oral Oral Oral SpO2: 98% 98% 98% 97% Weight: 77.1 kg (170 lb) Height: Estimated body mass index is 22.43 kg/m?? as calculated from the following: Height as of this encounter: 6' 1 (1.854 m). Weight as of this encounter: 77.1 kg (170 lb). Gen: in bed,subdues NAD Respiratory: Lungs clear bilaterally CV: Regular rate and rhythm Abd:wearing TLSO- Extremities: no edema, BUE 4/+5, ambulating with walker and AFOs-independent, bed mobility, transfers, supervision for, walking longer distances , stairs Skin: intact where seen Data: Current Facility-Administered Medications Medication Dose Route Frequency acetaminophen (TYLENOL) tablet 650 mg 650 mg Oral Q6H PRN ALBUterol sulfate HFA inhaler 2 Puff 2 Puff Inhalation Q4H PRN polyethylene glycol (MIRALAX) oral powder 17 g 17 g Oral Daily And bisacodyl (DULCOLAX) rectal suppository 10 mg 10 mg Rectal DAILY PRN cyclobenzaprine (FLEXERIL) tablet 5-10 mg 5-10 mg Oral TID PRN diazePAM (VALIUM) tablet 5 mg 5 mg Oral Q6H PRN famotidine (PEPCID) tablet 20 mg 20 mg Oral BID FLUoxetine (PROZAC) capsule 20 mg 20 mg Oral Daily fluticasone propionate (FLONASE) 50 MCG/ACT nasal spray 1 [place] 1 [place] See Admin Instructions Weekly gabapentin (NEURONTIN) capsule 900 mg 900 mg Oral TID ibuprofen (MOTRIN) tablet 400 mg 400 mg Oral Q6H PRN lidocaine (UROJET) 2 % gel prefilled syringe Urethral PRN with procedures loratadine (CLARITIN) tablet 10 mg 10 mg Oral BID melatonin tablet 6 mg 6 mg Oral At bedtime PRN metoclopramide (REGLAN) tablet 5 mg 5 mg Oral TID before meals ondansetron (ZOFRAN) tablet 4 mg 4 mg Oral Q8H PRN oxyCODONE (ROXICODONE) immediate release tablet 5 mg 5 mg Oral BID PRN pantoprazole DR (PROTONIX) tablet 40 mg 40 mg Oral BID before meals sennosides-docusate sodium (SENOKOT S) 8.6-50 MG per tablet 1 Tablet 1 Tablet Oral Daily traZODone (DESYREL) tablet 50 mg 50 mg Oral At bedtime PRN Allergies Allergen Reactions Other Other, see comments HAS AN ALLERGY TO SOME KIND OF SUGAR HAVING TESTING TO DETERMINE TYPE ADLs MOBILITY COGNITION Category Initial IRF-TIFFANIE Current IRF-TIFFANIE Category Initial IRF-TIFFANIE Current IRF- TIFFANIE Category Initial IRF-TIFFANIE Current IRF-TIFFANIE Eating 5: Setup/clean up assistance - prior and/or following activity 6: Independent - no helper assist Sit to Stand 88: Not attempted due to medical condition or safety concerns 6: Independent - no helper assist Comprehension 4: Has clear comprehension without cues or repetition 4: Has clear comprehension without cues or repetition Shower/Bathe Self 3: Partial/mod assist - helper does <50% 6: Independent - no helper assist Chair/Bed to Chair Transfer 1: Dependent - [place] does ALL effort/assistance of 2 (per chart review) 6:Independent - no helper assist Expression 4: expresses complex messages without difficulty 4: expresses complex messages without difficulty UB Dressing 2: Substantial/max assist - [place] does >50% 6: Independent - no helper assist Car Transfer 2: Substantial/max assist - [place] does >50% 6: Independent - no helper assist Attention 4: concentrate without difficulty regardless of setting, can alternate attention independently 4: concentrate without difficulty regardless of setting, can alternate attention independently LB Dressing 1: Dependent - [place] does ALL effort/assistance of 2 6: Independent - no helper assistToilet Transfers 2: Substantial/max assist - [place] does >50% 4: Supervision/touch assist - verbal cues and/or touching/steadying and/or contact guard assistance Problem-Solving 4: solves complex,multi-step or abstract problems without difficulty or assist 4: solves complex, multi-step or abstract problems without difficulty or assist Valentin/Doff Footwear 1: Dependent - [place] does ALL effort/assistance of 2 6: Independent - no helperassist Walk 10 feet 88: Not attempted due to medical condition or safety concerns 4: Supervision/touch assist - verbal cues and/or touching/steadying and/or contact guard assistance Memory 4: recallsnovel info., completes tasks independently with/without aide 4: recalls novel info., completes tasks independently with/without aide Toileting Hygiene 1: Dependent - [place] does ALL effort/assistance of 2 5: Setup/clean up assistance - prior and/or following activity Walk 50 feet with two turns 2: Substantial/max assist - [place] does >50% 4: Supervision/touch assist - verbal cues and/or touching/steadying and/or contact guardassistance Bladder Intervention Assistance 2: Substantial/max assist - [place] does >50% 5: Setup/clean up assistance - prior and/or following activity Walk 150 feet 4: Supervision/touch assist - verbal cuesand/or touching/steadying and/or contact guard assistance 4: Supervision/touch assist - verbal cuesand/or touching/steadying and/or contact guard assistance Bladder Continence 4: Always incontinent 3: Incontinent daily (at least once a day) Wheel 50 feet with 2 turns 2: Substantial/max assist - [place] does >50% 6: Independent - no helper assist Bowel Intervention Assistance 1: Dependent -[place] does ALL effort/assistance of 2 1: Dependent -[place] does ALL effort/assistance of 2 Wheel 150 feet 2: Substantial/max assist - [place] does >50% 6: Independent - no helper assist Bowel Continence 2: Frequently incontinent (2 or more episodes of bowel incontinence, but at lease one continent bowel movement) 2: Frequently incontinent (2 or more episodes of bowel incontinence, but at lease one continent bowel movement) 4 Steps with 1 rail 88: Not attempted due to medical condition or safety concerns 4: Supervision/touch assist - verbal cues and/or touching/steadying and/or contact guard assistance 12 Steps with 1 rail 88: Not attempted due to medical condition or safety concerns 4: Supervision/touch assist - verbal cues and/or touching/steadying and/or contact guard assistance 1 Step up & down (curb) 88: Not attempted due to medical condition or safety concerns 4: Supervision/touch assist - verbal cues and/or touching/steadying and/or contact guard assistance Therapy Information: PT Session 1 Beginning Time: 0930 (07/11/2024) PT Session 1 Ending Time: 1030 (07/11/2024) PT Session 1 Total Minutes: 60 minutes (07/11/2024) PT Session 2 Beginning Time: 1330 (07/11/2024) PT Session 2 Ending Time: 1400 (07/11/2024) PT Session 2 Total Minutes: 30 minutes (07/11/2024) OT Session 1 Beginning Time: 1030 (07/11/2024) OT Session 1 Ending Time: 1130 (07/11/2024) OT Session 1 Total Minutes: 60 minutes (07/11/2024) OT Session 2 Beginning Time: 1400 (07/11/2024) OT Session 2 Ending Time: 1430 (07/11/2024) OT Session 2 Total Minutes: 30 minutes (07/11/2024) Stool/Bowel: Patient Vitals for the past 120 hrs: Stool Amount 07/11/24 0856 Large 07/10/24 0900 Large 07/08/24 0900 Large 07/07/24 1000 Large Patient Vitals for the past 120 hrs: Stool Color 07/08/24 0900 brown 07/07/24 1000 brown Patient Vitals for the past 120 hrs: Stool Consistency 07/08/24 0900 hard;soft 07/07/24 1000 hard Bladder Scan: No data found. Post-void Residual: No data found. Labs: No results found for this or any previous visit (from the past 24 hours). ASSESSMENT / PLAN: 24-year-old male with history of Klinefelter syndrome, unspecified Kamari- Danlos, chronic pain, bilateral hip dysplasia and labral tear, recurrent peroneal tendon subluxation, status post right lowerextremity surgery, history of left wrist surgery, history of pectus excavatum surgery, recent percutaneous gastrostomy, and possible POTS and gastroparesis, now with dependence in mobility, dependence in self cares and significant debilitation, admitted for intensive inpatient rehabilitation. Radiographic negative possible traumatic myelopathy, intensive PT and OT 3 times daily07/06 per plastics no restrictions LUE 07/09 making nice gains-not wearing splint-improving- if persists should haveEMG with claim specialist at [facility] Recent surgery in April with Dr. Van to repair dislocation of perineal tendons with fibular groove deepening and longus to brevis tendinosis. Per Dr. Van's note 07/04 will require bilateral lower extremity custom short articulated AFOs, has been molded for these, [employer] to fabricate them to help provide support for his ankles as he is mobilized.07/06 has AFOs Patient would like to discuss and consider KAFO, AFOs were done by [employer]-07/09 reviewed reasons forno KAFOs Schedule back with Dr. Van Back pain. Does have a TLSO for stabilization, not required neurologically but used for pain.discussed ongoing strengthening-not depending on TLSO Questionable history of POTS versus syncope. Evaluation all negative. Outpatient 30-day event monitor.-sees cardilogy Chronic pain syndrome, followed by Pain here. Minimize narcotics, as able TLSO as needed. Gabapentin 900 mg t.i.d. Tylenol 650 q.6 hours as needed Flexeril 5-10 mg t.i.d. p.r.n. Oxycodone 5 mg b.i.d. p.r.n. Valium 2.5 mg as needed and 2.5 for breakthrough pain. 07/08 increased Valium to 5 mg-note pain did not recommend Valium-will not prescribe at discharge History of malnutrition. GJ changed for a Mode. We will have dietitian follow and make recommendations. He is on a regular diet.07/10 granuation tissue silver nitrate 07/11.Per dieitican is taking adequately po- pt states he wants to put on extra muscle07/12 per dieitican eating well and does not need tube feeeding History of neurogenic bladder with urinary retention, not noting urinary retention here. He is having variable urinary incontinence/using urinal and using briefs. We will monitor bladder scans and catheterize as needed. Urine culture negative.thus far low PVRs although ? Hx retention timed voiding low PVRs-managing himself-used briefs before Neurogenic bowel. Daily bowel program.will do formal bowel program BM 07/12 managing per self History of anal fissure with bleeding noted on 06/23, no recurrence. We would recommend stool softener to prevent rebleeding. Gastroesophageal reflux disease. Be aware of NSAID use. Continued PPI twice daily. Maalox p.r.n. Does use both Reglan and Zofran as needed. History of anxiety/depression. Continue fluoxetine 20 mg daily. Rehab Psych to follow up.here- has therapist [facility] Dependence in mobility. Three times daily physical therapy.up with walker- doing well with wheelchair-making good gains with ambulation-up with walker-outpt PT [place] Dependence in self cares, 3 times daily occupational therapy and rehab nursing.Will need to wrk on strategies for tube feeding,self care in order to return home-doing well-mom has tub bench-no outpt OT DVT prophylaxis. He is on enoxaparin until mobilizing further.07/11 d/c Code status, full. Therapeutic Rec - leisure skills and community reintegration. Rehab Psych -adjustment to disability. Pressure ulcer risk assessment. He does not have known peripheral vascular arterial disease, diabetes, or any of its complications, impaired cognition, or communication deficits or major fractures asrisk factors for pressure ulcers. He does have variably impaired sensation, splints, orthoses, and impaired mobility as risk factors for pressure ulcers. Clinically significant medication issues. No potential clinically significant medication issues noted on admission. Continue to monitor. Discharge planning. Social Work to work with patient and mother. We will need to determine whether he can return to mother's home with accessibility issues or look at other options. Estimated length of stay 07/24/24 pending further evaluation. Rehab prognosis fair to good.Lives in [place] has some RELIEF MATE hours -will likely need more- through [facility]- some programming through [facility].Ifunable to return home in timely manner may need TCU 07/09/24 discussing possible discharge by end of week [facility]OS 07/13 Diet, regular. LUE pain-per plastics-Per prior hand surgery team consultation notes - patient does not meet indications for casting and could lead to increased harm including permanent finger stiffness and loss of function. Furthermore, a removal wrist brace would adequately mobilize the left wrist/hand and help treat any sort of inflammation along with NSAIDs. 07/08/2024 notes per plastics unclear if no WB restrictions or NWB on left hand- per note from plastics- no restrictions We have asked our OT colleagues to work with the patient to obtain a splint that would meet his needs and for guidance from their expertise. Per the OT note on 07/04, concern that splinting would continue to cause MCP stiffness/soreness given this will not offload weight bearing through the MCPs during transfers. The plan was for OT to work with the PT team and the patient to minimize weightbearing through the MCPs and to create a left edema glove for cushion/compression. Order placed for OT Tuesday has splint -not wearing 58 minutes spent by me on the date of service doing chart review,history,exam,coordination of care , documentation and furthur activites per the note as well as preparation for discharge. Meds prior to admission-will not refill HYDROcodone-acetaminophen (NORCO) 5-325 MG tablet No No Sig: Take 1 Tablet by mouth every 6 hours as needed for Pain. Incontinence Supply Disposable ([employer]) Yes No Sig: For home use. acetaminophen (TYLENOL) 325 MG tablet Yes No Sig: Take 2 Tablets (650 mg) by mouth. acetaminophen (TYLENOL) 500 MG tablet No No Sig: Take 2 Tablets (1,000 mg) by mouth every 8 hours. Maximum acetaminophen dose is 4000 mg in 24 hours aspirin 81 MG chewable tablet Yes No Sig: Chew and swallow by mouth. clotrimazole (LOTRIMIN) 1 % cream Yes No Si APPLICATION TOPICALLY TWICE DAILY NEEDED. FOR SKIN IRRITATION/YEAST DERMATITIS cyclobenzaprine (FLEXERIL) 5 MG tablet No No Sig: Take 1 Tablet (5 mg) by mouth three times a day as needed for Muscle Spasms. diazePAM (VALIUM) 5 MG tablet No No Sig: Take 1 Tablet (5 mg) by mouth every 6 hours as needed for Anxiety or Muscle Spasms. famotidine (PEPCID) 40 MG tablet Yes No Sig: Take 1 Tablet (40 mg) by mouth. gabapentin (NEURONTIN) 300 MG capsule Yes No Sig: Take 1 Capsule (300 mg) by mouth. lidocaine (ASPERCREAM) 4 % patch Yes No Sig: Apply 3 Patches to skin every 24 hours. methocarbamol (ROBAXIN) 500 MG tablet No No Sig: Take 1 Tablet (500 mg) by mouth three times a day as needed for Muscle Spasms. metoclopramide (REGLAN) 5 MG tablet Yes No Sig: Take 1 Tablet (5 mg) by mouth. promethazine (PHENERGAN) 12.5 MG tablet No No Sig: Take 1 Tablet (12.5 mg) by mouth daily at bedtime. Facility-Administered Medications: None Nithya Jacobs MD 07/12/24 9:16 AM Physical Medicine and Rehabilitation * Dhara Culp RN - 07/12/2024 6:42 AM CDT [facility] Plan of Care Note Assessment: comfort and safety Plan: continue Rehab POC Subjective: Lower back, hip and peg site pain Objective: Pt is A&O x 4, calm and cooperative, denies chest discomfort, dizziness, N&V. C/o Lower back, hip and peg site pain, prn acetaminophen given & Trazodone 50 mg prn to promote sleep. Take pills whole w/ water. PEG site patent , TF compleat 1.4 started at 19:30 80ml/hr until 5:00 am. Continent Bladder, urinal at Bedside. Last Bm 07/11/24. Call light w/ in reach. Bed alarm for safety. Needs attended. Slept good for approx 8 hrs. BP 115/56 (BP Cuff Size: Regular) Pulse 90 Temp 97.9 ??F (36.6 ??C) (Oral) Resp 18 Ht 6' 1(1.854 m) Wt 77.1 kg (170 lb) SpO2 97% BMI 22.43 kg/m?? * Nithya Jacobs MD - 07/11/2024 8:53 PM CDT [facility] PM&R Progress Note () Patient: Krunal Salter Date of service: 07/11/2024 Diagnosis: weakness SUBJECTIVE: Slept well No SOB Working on bowel program-going well Not wearing new splint Decling some bladder scans but where obtained are low BM today Discussed commode- using toilet here- up with walker- can use to toilet Requesting pain input re Valium-per Dr. Loza Schedule gabapentin 200mg TID - he has the option of increasing. Stop IV dilaudid (patient not using) Stop valium. Patient can use his flexeril If he struggles with pain, we can increase his gabapentin and/or his oxycodone. Otherwise, he can utilize his current PRN medications. Discussed referral back to [facility] [employer] rather than being seen in various systems-also PCP should ne local in [facility] 07/11 OBJECTIVE: Filed Vitals: 07/10/24 0633 07/10/24 1746 07/11/24 0600 07/11/24 1635 BP: 123/51 126/70 118/58 111/68 Pulse: 91 (!) 105 93 99 Resp: 16 16 16 17 Temp: 97.8 ??F (36.6 ??C) 98.2 ??F (36.8 ??C) 98.2 ??F (36.8 ??C) 98 ??F (36.7 ??C) TempSrc: Oral Nasal Oral Oral SpO2: 97% 98% 98% 98% Weight: 77.1 kg (170 lb) Height: Estimated body mass index is 22.43 kg/m?? as calculated from the following: Height as of this encounter: 6' 1 (1.854 m). Weight as of this encounter: 77.1 kg (170 lb). Gen: alert,interactive, watched in therapy as well as saw in roomNAD-stands over 10 minutes in OT Respiratory: Lungs clear bilaterally CV: Regular rate and rhythm Abd:wearing TLSO- Extremities: no edema, BUE 4/+5, ambulating with walker and AFOs Skin: intact where seen Data: Current Facility-Administered Medications Medication Dose Route Frequency acetaminophen (TYLENOL) tablet 650 mg 650 mg Oral Q6H PRN ALBUterol sulfate HFA inhaler 2 Puff 2 Puff Inhalation Q4H PRN polyethylene glycol (MIRALAX) oral powder 17 g 17 g Oral Daily And bisacodyl (DULCOLAX) rectal suppository 10 mg 10 mg Rectal DAILY PRN cyclobenzaprine (FLEXERIL) tablet 5-10 mg 5-10 mg Oral TID PRN diazePAM (VALIUM) tablet 5 mg 5 mg Oral Q6H PRN enoxaparin (LOVENOX) prefilled syringe 40 mg 40 mg Subcutaneous 2000 famotidine (PEPCID) tablet 20 mg 20 mg Oral BID FLUoxetine (PROZAC) capsule 20 mg 20 mg Oral Daily fluticasone propionate (FLONASE) 50 MCG/ACT nasal spray 1 [place] 1 [place] See Admin Instructions Weekly gabapentin (NEURONTIN) capsule 900 mg 900 mg Oral TID ibuprofen (MOTRIN) tablet 400 mg 400 mg Oral Q6H PRN lidocaine (UROJET) 2 % gel prefilled syringe Urethral PRN with procedures loratadine (CLARITIN) tablet 10 mg 10 mg Oral BID melatonin tablet 6 mg 6 mg Oral At bedtime PRN metoclopramide (REGLAN) tablet 5 mg 5 mg Oral TID before meals ondansetron (ZOFRAN) tablet 4 mg 4 mg Oral Q8H PRN oxyCODONE (ROXICODONE) immediate release tablet 5 mg 5 mg Oral BID PRN pantoprazole DR (PROTONIX) tablet 40 mg 40 mg Oral BID before meals sennosides-docusate sodium (SENOKOT S) 8.6-50 MG per tablet 1 Tablet 1 Tablet Oral Daily traZODone (DESYREL) tablet 50 mg 50 mg Oral At bedtime PRN Allergies Allergen Reactions Other Other, see comments HAS AN ALLERGY TO SOME KIND OF SUGAR HAVING TESTING TO DETERMINE TYPE ADLs MOBILITY COGNITION Category Initial IRF-TIFFANIE Current IRF-TIFFANIE Category Initial IRF-TIFFANIE Current IRF- TIFFANIE Category Initial IRF-TIFFANIE Current IRF-TIFFANIE Eating 5: Setup/clean up assistance - prior and/or following activity 6: Independent - no helper assist Sit to Stand 88: Not attempted due to medical condition or safety concerns 6: Independent - no helper assist Comprehension 4: Has clear comprehension without cues or repetition 4: Has clear comprehension without cues or repetition Shower/Bathe Self 3: Partial/mod assist - helper does <50% 6: Independent - no helper assist Chair/Bed to Chair Transfer 1: Dependent - [place] does ALL effort/assistance of 2 (per chart review) 6:Independent - no helper assist Expression 4: expresses complex messages without difficulty 4: expresses complex messages without difficulty UB Dressing 2: Substantial/max assist - [place] does >50% 6: Independent - no helper assist Car Transfer 2: Substantial/max assist - [place] does >50% 6: Independent - no helper assist Attention 4: concentrate without difficulty regardless of setting, can alternate attention independently 4: concentrate without difficulty regardless of setting, can alternate attention independently LB Dressing 1: Dependent - [place] does ALL effort/assistance of 2 6: Independent - no helper assistToilet Transfers 2: Substantial/max assist - [place] does >50% 4: Supervision/touch assist - verbal cues and/or touching/steadying and/or contact guard assistance Problem-Solving 4: solves complex,multi-step or abstract problems without difficulty or assist 4: solves complex, multi-step or abstract problems without difficulty or assist Valentin/Doff Footwear 1: Dependent - [place] does ALL effort/assistance of 2 6: Independent - no helperassist Walk 10 feet 88: Not attempted due to medical condition or safety concerns 4: Supervision/touch assist - verbal cues and/or touching/steadying and/or contact guard assistance Memory 4: recallsnovel info., completes tasks independently with/without aide 4: recalls novel info., completes tasks independently with/without aide Toileting Hygiene 1: Dependent - [place] does ALL effort/assistance of 2 5: Setup/clean up assistance - prior and/or following activity Walk 50 feet with two turns 2: Substantial/max assist - [place] does >50% 4: Supervision/touch assist - verbal cues and/or touching/steadying and/or contact guardassistance Bladder Intervention Assistance 2: Substantial/max assist - [place] does >50% 5: Setup/clean up assistance - prior and/or following activity Walk 150 feet 4: Supervision/touch assist - verbal cues and/or touching/steadying and/or contact guard assistance 4: Supervision/touch assist - verbal cues and/or touching/steadying and/or contact guard assistance Bladder Continence 4: Always incontinent 3: Incontinent daily (at least once a day) Wheel 50 feet with 2 turns 2: Substantial/max assist - [place] does >50% 6: Independent - no helper assist Bowel Intervention Assistance 1: Dependent -[place] does ALL effort/assistance of 2 1: Dependent -[place] does ALL effort/assistance of 2 Wheel 150 feet 2: Substantial/max assist - [place] does >50% 6: Independent - no helper assist Bowel Continence 2: Frequently incontinent (2 or more episodes of bowel incontinence, but at lease one continent bowel movement) 2: Frequently incontinent (2 or more episodes of bowel incontinence, but at lease one continent bowel movement) 4 Steps with 1 rail 88: Not attempted due to medical condition or safety concerns 4: Supervision/touch assist - verbal cues and/or touching/steadying and/or contact guard assistance 12 Steps with 1 rail 88: Not attempted due to medical condition or safety concerns 4: Supervision/touch assist - verbal cues and/or touching/steadying and/or contact guard assistance 1 Step up & down (curb) 88: Not attempted due to medical condition or safety concerns 4: Supervision/touch assist - verbal cues and/or touching/steadying and/or contact guard assistance Therapy Information: PT Session 1 Beginning Time: 0930 (07/11/2024) PT Session 1 Ending Time: 1030 (07/11/2024) PT Session 1 Total Minutes: 60 minutes (07/11/2024) PT Session 2 Beginning Time: 1330 (07/11/2024) PT Session 2 Ending Time: 1400 (07/11/2024) PT Session 2 Total Minutes: 30 minutes (07/11/2024) OT Session 1 Beginning Time: 1030 (07/11/2024) OT Session 1 Ending Time: 1130 (07/11/2024) OT Session 1 Total Minutes: 60 minutes (07/11/2024) OT Session 2 Beginning Time: 1400 (07/11/2024) OT Session 2 Ending Time: 1430 (07/11/2024) OT Session 2 Total Minutes: 30 minutes (07/11/2024) Stool/Bowel: Patient Vitals for the past 120 hrs: Stool Amount 07/11/24 0856 Large 07/10/24 0900 Large 07/08/24 0900 Large 07/07/24 1000 Large Patient Vitals for the past 120 hrs: Stool Color 07/08/24 0900 brown 07/07/24 1000 brown Patient Vitals for the past 120 hrs: Stool Consistency 07/08/24 0900 hard;soft 07/07/24 1000 hard Bladder Scan: No data found. Post-void Residual: No data found. Labs: No results found for this or any previous visit (from the past 24 hours). ASSESSMENT / PLAN: 24-year-old male with history of Klinefelter syndrome, unspecified Kamari- Danlos, chronic pain, bilateral hip dysplasia and labral tear, recurrent peroneal tendon subluxation, status post right lowerextremity surgery, history of left wrist surgery, history of pectus excavatum surgery, recent percutaneous gastrostomy, and possible POTS and gastroparesis, now with dependence in mobility, dependence in self cares and significant debilitation, admitted for intensive inpatient rehabilitation. Radiographic negative possible traumatic myelopathy, intensive PT and OT 3 times daily07/06 per plastics no restrictions LUE 07/09 making nice gains-not wearing splint Recent surgery in April with Dr. Van to repair dislocation of perineal tendons with fibular groove deepening and longus to brevis tendinosis. Per Dr. Van's note 07/04 will require bilateral lower extremity custom short articulated AFOs, has been molded for these, Aylin to fabricate them to help provide support for his ankles as he is mobilized.07/06 has AFOs Patient would like to discuss and consider KAFO, AFOs were done by Aylin-07/09 reviewed reasons forno KAFOs Schdule back with Dr. Van Back pain. Does have a TLSO for stabilization, not required neurologically but used for pain. Questionable history of POTS versus syncope. Evaluation all negative. Outpatient 30-day event monitor. Chronic pain syndrome, followed by Pain here. Minimize narcotics, as able TLSO as needed. Gabapentin 900 mg t.i.d. Tylenol 650 q.6 hours as needed Flexeril 5-10 mg t.i.d. p.r.n. Oxycodone 5 mg b.i.d. p.r.n. Valium 2.5 mg as needed and 2.5 for breakthrough pain. 07/08 increased Valium to 5 mg-note pain did not recommend Valium History of malnutrition. GJ changed for a Mode. We will have dietitian follow and make recommendations. He is on a regular diet.07/10 granuation tissue silver nitrate 07/11.Per dieitican is taking adequately po- pt states he wants to put on extra muscle History of neurogenic bladder with urinary retention, not noting urinary retention here. He is having variable urinary incontinence/using urinal and using briefs. We will monitor bladder scans and catheterize as needed. Urine culture negative.thus far low PVRs although ? Hx retention timed voiding low PVRs Neurogenic bowel. Daily bowel program.will do formal bowel program BM 07/11 History of anal fissure with bleeding noted on 06/23, no recurrence. We would recommend stool softener to prevent rebleeding. Gastroesophageal reflux disease. Be aware of NSAID use. Continued PPI twice daily. Maalox p.r.n. Does use both Reglan and Zofran as needed. History of anxiety/depression. Continue fluoxetine 20 mg daily. Rehab Psych to follow up.here- has therapist [facility] Dependence in mobility. Three times daily physical therapy.up with walker- doing well with wheelchair-making good gains with ambulation-up with walker-outpt PT [place] Dependence in self cares, 3 times daily occupational therapy and rehab nursing.Will need to wrk on strategies for tube feeding,self care in order to return home-doing well-mom has tub bench DVT prophylaxis. He is on enoxaparin until mobilizing further.07/11 d/c Code status, full. Therapeutic Rec - leisure skills and community reintegration. Rehab Psych -adjustment to disability. Pressure ulcer risk assessment. He does not have known peripheral vascular arterial disease, diabetes, or any of its complications, impaired cognition, or communication deficits or major fractures asrisk factors for pressure ulcers. He does have variably impaired sensation, splints, orthoses, and impaired mobility as risk factors for pressure ulcers. Clinically significant medication issues. No potential clinically significant medication issues noted on admission. Continue to monitor. Discharge planning. Social Work to work with patient and mother. We will need to determine whether he can return to mother's home with accessibility issues or look at other options. Estimated length of stay 07/24/24 pending further evaluation. Rehab prognosis fair to good.Lives in [place] has some RELIEF MATE hours -will likely need more- through [facility]- some programming through [facility].If unable to return home in timely manner may need TCU 07/09/24 discussing possible discharge by end of week ELOS 07/13 Diet, regular. LUE pain-per plastics-Per prior hand surgery team consultation notes - patient does not meet indications for casting and could lead to increased harm including permanent finger stiffness and loss of function. Furthermore, a removal wrist brace would adequately mobilize the left wrist/hand and help treat any sort of inflammation along with NSAIDs. 07/08/2024 notes per plastics unclear if no WB restrictions or NWB on left hand- per note from plastics- no restrictions We have asked our OT colleagues to work with the patient to obtain a splint that would meet his needs and for guidance from their expertise. Per the OT note on 07/04, concern that splinting would continue to cause MCP stiffness/soreness given this will not offload weight bearing through the MCPs during transfers. The plan was for OT to work with the PT team and the patient to minimize weightbearing through the MCPs and to create a left edema glove for cushion/compression. Order placed for OT Tuesday has splint -not wearing 45 minutes spent by me on the date of service doing chart review,history,exam,coordination of care , documentation and furthur activites per the note including observation in therapy,chart review,discussion with team memebrs inpreparation for discharge Nithya Jacobs MD 07/11/24 8:53 PM Physical Medicine and Rehabilitation * Doroteo Peck RN - 07/10/2024 10:42 PM CDT [facility] Plan of Care Note Assessment: Rehab Plan: Continue with poc Subjective: Objective: Patient is A&O x4. Complain of back pain, denied intervention. Denied SOB, Chest or abdominal discomfort, N/V. Ate 100 % of dinner. TF running per order. Voided in toilet . Refused bladder scan. Independently transfers. Takes medication whole with water. Call light within reach. Usescall light appropriately. * Nithya Jacobs MD - 07/10/2024 4:19 PM CDT [facility] PM&R Progress Note () Patient: Krunal Salter Date of service: 07/10/2024 Diagnosis: weakness SUBJECTIVE: Doing well No SOB Working on bowel program Discussed discharge Tuesday-will contact mother about equipment at home Likely will have a friend take him home Discussed will need to be reevaluated beofre returning to driving given weakness and impaired sensation Not wearing new splint Decling some bladder scans but where obtained are low BM today OBJECTIVE: Filed Vitals: 07/09/24 1600 07/09/24200907/10/24 0633 07/10/24 1546 BP: 121/58 123/71 123/51 (!) 132/98 Pulse: 91 (!) 104 91 88 Resp: 18 17 16 18 Temp: 98.3 ??F (36.8 ??C) 98 ??F (36.7 ??C) 97.8 ??F (36.6 ??C) 97.9 ??F (36.6 ??C) TempSrc: Oral Oral Oral Oral SpO2: 97% 96% 97% 96% Weight: Height: Estimated body mass index is 21.95 kg/m?? as calculated from the following: Height as of this encounter: 6' 1 (1.854 m). Weight as of this encounter: 75.5 kg (166 lb 6.4 oz). Gen: alert,interactive, NAD-stands over 10 minutes in OT Respiratory: Lungs clear bilaterally CV: Regular rate and rhythm Abd:wearing TLSO-wore variably today Extremities: no edema, BUE 4/+5, ambulating with walker and AFOs Skin: intact where seen Data: Current Facility-Administered Medications Medication Dose Route Frequency acetaminophen (TYLENOL) tablet 650 mg 650 mg Oral Q6H PRN ALBUterol sulfate HFA inhaler 2 Puff 2 Puff Inhalation Q4H PRN polyethylene glycol (MIRALAX) oral powder 17 g 17 g Oral Daily And bisacodyl (DULCOLAX) rectal suppository 10 mg 10 mg Rectal DAILY PRN cyclobenzaprine (FLEXERIL) tablet 5-10 mg 5-10 mg Oral TID PRN diazePAM (VALIUM) tablet 5 mg 5 mg Oral Q6H PRN enoxaparin (LOVENOX) prefilled syringe 40 mg 40 mg Subcutaneous 2000 famotidine (PEPCID) tablet 20 mg 20 mg Oral BID FLUoxetine (PROZAC) capsule 20 mg 20 mg Oral Daily fluticasone propionate (FLONASE) 50 MCG/ACT nasal spray 1 [place] 1 [place] See Admin Instructions Weekly gabapentin (NEURONTIN) capsule 900 mg 900 mg Oral TID ibuprofen (MOTRIN) tablet 400 mg 400 mg Oral Q6H PRN lidocaine (UROJET) 2 % gel prefilled syringe Urethral PRN with procedures loratadine (CLARITIN) tablet 10 mg 10 mg Oral BID melatonin tablet 6 mg 6 mg Oral At bedtime PRN metoclopramide (REGLAN) tablet 5 mg 5 mg Oral TID before meals ondansetron (ZOFRAN) tablet 4 mg 4 mg Oral Q8H PRN oxyCODONE (ROXICODONE) immediate release tablet 5 mg 5 mg Oral BID PRN pantoprazole DR (PROTONIX) tablet 40 mg 40 mg Oral BID before meals sennosides-docusate sodium (SENOKOT S) 8.6-50 MG per tablet 1 Tablet 1 Tablet Oral Daily traZODone (DESYREL) tablet 50 mg 50 mg Oral At bedtime PRN Allergies Allergen Reactions Other Other, see comments HAS AN ALLERGY TO SOME KIND OF SUGAR HAVING TESTING TO DETERMINE TYPE ADLs MOBILITY COGNITION Category Initial IRF-TIFFANIE Current IRF-TIFFANIE Category Initial IRF-TIFFANIE Current IRF- TIFFANIE Category Initial IRF-TIFFANIE Current IRF-TIFFANIE Eating 5: Setup/clean up assistance - prior and/or following activity 6: Independent - no helper assist Sit to Stand 88: Not attempted due to medical condition or safety concerns 3: Partial/mod assist - [place] does <50% Comprehension 4: Has clear comprehension without cues or repetition 4: Has clear comprehension without cues or repetition Shower/Bathe Self 3: Partial/mod assist - helper does <50% 6: Independent - no helper assist Chair/Bed to Chair Transfer 1: Dependent - [place] does ALL effort/assistance of 2 (per chart review) 6:Independent - no helper assist Expression 4: expresses complex messages without difficulty 4: expresses complex messages without difficulty UB Dressing 2: Substantial/max assist - [place] does >50% 6: Independent - no helper assist Car Transfer 2: Substantial/max assist - [place] does >50% 2: Substantial/max assist - [place] does >50% Attention 4: concentrate without difficulty regardless of setting, can alternate attention independently 4: concentrate without difficulty regardless of setting, can alternate attention independently LB Dressing 1: Dependent - [place] does ALL effort/assistance of 2 6: Independent - no helper assistToilet Transfers 2: Substantial/max assist - [place] does >50% 4: Supervision/touch assist - verbal cues and/or touching/steadying and/or contact guard assistance Problem-Solving 4: solves complex,multi-step or abstract problems without difficulty or assist 4: solves complex, multi-step or abstract problems without difficulty or assist Valentin/Doff Footwear 1: Dependent - [place] does ALL effort/assistance of 2 6: Independent - no helperassist Walk 10 feet 88: Not attempted due to medical condition or safety concerns 3: Partial/mod assist - [place] does <50% Memory 4: recalls novel info., completes tasks independently with/withoutaide 4: recalls novel info., completes tasks independently with/without aide Toileting Hygiene 1: Dependent - [place] does ALL effort/assistance of 2 5: Setup/clean up assistance - prior and/or following activity Walk 50 feet with two turns 2: Substantial/max assist - [place] does >50% 2: Substantial/max assist - [place] does >50% Bladder Intervention Assistance 2: Substantial/max assist - [place] does >50% 5: Setup/clean up assistance - prior and/or following activity Walk 150 feet Bladder Continence 4: Always incontinent 3: Incontinent daily (at least once a day) Wheel 50 feet with 2 turns 2: Substantial/max assist - [place] does >50% 6: Independent - no helper assist Bowel Intervention Assistance 1: Dependent -[place] does ALL effort/assistance of 2 1: Dependent -[place] does ALL effort/assistance of 2 Wheel 150 feet 2: Substantial/max assist - [place] does >50% 6: Independent - no helper assist Bowel Continence 2: Frequently incontinent (2 or more episodes of bowel incontinence, but at lease one continent bowel movement) 2: Frequently incontinent (2 or more episodes of bowel incontinence, but at lease one continent bowel movement) 4 Steps with 1 rail 88: Not attempted due to medical condition or safety concerns 88: Not attempted due to medical condition or safety concerns 12 Steps with 1 rail 88: Not attempted due to medical condition or safety concerns 88: Not attempted due to medical condition or safety concerns 1 Step up & down (curb) 88: Not attempted due to medical condition or safety concerns 3: Partial/mod assist - [place] does <50% Therapy Information: PT Session 1 Beginning Time: 1330 (07/10/2024) PT Session 1 Ending Time: 1400 (07/10/2024) PT Session 1 Total Minutes: 30 minutes (07/10/2024) PT Session 2 Beginning Time: 1430 (07/10/2024) PT Session 2 Ending Time: 1530 (07/10/2024) PT Session 2 Total Minutes: 60 minutes (07/10/2024) PT Session 3 Beginning Time: 1430 (07/09/2024) PT Session 3 Ending Time: 1500 (07/09/2024) PT Session 3 Total Minutes: 30 minutes (07/09/2024) OT Session 1 Beginning Time: 0930 (07/10/2024) OT Session 1 Ending Time: 1030 (07/10/2024) OT Session 1 Total Minutes: 60 minutes (07/10/2024) OT Session 2 Beginning Time: 1400 (07/10/2024) OT Session 2 Ending Time: 1430 (07/10/2024) OT Session 2 Total Minutes: 30 minutes (07/10/2024) Stool/Bowel: Patient Vitals for the past 120 hrs: Stool Amount 07/10/24 0900 Large 07/08/24 0900 Large 07/07/24 1000 Large 07/06/24 2033 Moderate 07/06/24 1244 Large 07/06/24 1200 Large Patient Vitals for the past 120 hrs: Stool Color 07/08/24 0900 brown 07/07/24 1000 brown 07/06/24 2033 brown 07/06/24 1244 brown 07/06/24 1200 brown Patient Vitals for the past 120 hrs: Stool Consistency 07/08/24 0900 hard;soft 07/07/24 1000 hard 07/06/243 soft 07/06/24 1244 soft 07/06/24 1200 soft Bladder Scan: Patient Vitals for the past 24 hrs: Bladder Scan (mL) (Not in Output) 07/10/24 1546 0 Scanned mL Post-void Residual: No data found. Labs: No results found for this or any previous visit (from the past 24 hours). ASSESSMENT / PLAN: 24-year-old male with history of Klinefelter syndrome, unspecified Kamari- Danlos, chronic pain, bilateral hip dysplasia and labral tear, recurrent peroneal tendon subluxation, status post right lowerextremity surgery, history of left wrist surgery, history of pectus excavatum surgery, recent percutaneous gastrostomy, and possible POTS and gastroparesis, now with dependence in mobility, dependence in self cares and significant debilitation, admitted for intensive inpatient rehabilitation. Radiographic negative possible traumatic myelopathy, intensive PT and OT 3 times daily07/06 per plastics no restrictions LUE 07/09 making nice gains-not wearing splint Recent surgery in April with Dr. Van to repair dislocation of perineal tendons with fibular groove deepening and longus to brevis tendinosis. Per Dr. Van's note 07/04 will require bilateral lower extremity custom short articulated AFOs, has been molded for these, [employer] to fabricate them to help provide support for his ankles as he is mobilized.07/06 has AFOs Patient would like to discuss and consider KAFO, AFOs were done by Aylin-07/09 reviewed reasons forno KAFOs Back pain. Does have a TLSO for stabilization, not required neurologically but used for pain. Questionable history of POTS versus syncope. Evaluation all negative. Outpatient 30-day event monitor. Chronic pain syndrome, followed by Pain here. Minimize narcotics, as able TLSO as needed. Gabapentin 900 mg t.i.d. Tylenol 650 q.6 hours as needed Flexeril 5-10 mg t.i.d. p.r.n. Oxycodone 5 mg b.i.d. p.r.n. Valium 2.5 mg as needed and 2.5 for breakthrough pain. 07/08 increased Valium to 5 mg History of malnutrition. GJ changed for a Mode. We will have dietitian follow and make recommendations. He is on a regular diet.07/10 granuation tissue -will use silver nitrate tomorrow History of neurogenic bladder with urinary retention, not noting urinary retention here. He is having variable urinary incontinence/using urinal and using briefs. We will monitor bladder scans and catheterize as needed. Urine culture negative.thus far low PVRs although ? Hx retention timed voiding low PVRs Neurogenic bowel. Daily bowel program.will do formal bowel program BM 07/10 History of anal fissure with bleeding noted on 06/23, no recurrence. We would recommend stool softener to prevent rebleeding. Gastroesophageal reflux disease. Be aware of NSAID use. Continued PPI twice daily. Maalox p.r.n. Does use both Reglan and Zofran as needed. History of anxiety/depression. Continue fluoxetine 20 mg daily. Rehab Psych to follow up. Dependence in mobility. Three times daily physical therapy.up with walker- doing well with wheelchair-making good gains with ambulation Dependence in self cares, 3 times daily occupational therapy and rehab nursing.Will need to wrk on strategies for tube feeding,self care in order to return home-doing well DVT prophylaxis. He is on enoxaparin until mobilizing further. Code status, full. Therapeutic Rec - leisure skills and community reintegration. Rehab Psych -adjustment to disability. Pressure ulcer risk assessment. He does not have known peripheral vascular arterial disease, diabetes, or any of its complications, impaired cognition, or communication deficits or major fractures asrisk factors for pressure ulcers. He does have variably impaired sensation, splints, orthoses, and impaired mobility as risk factors for pressure ulcers. Clinically significant medication issues. No potential clinically significant medication issues noted on admission. Continue to monitor. Discharge planning. Social Work to work with patient and mother. We will need to determine whether he can return to mother's home with accessibility issues or look at other options. Estimated length of stay 07/24/24 pending further evaluation. Rehab prognosis fair to good.Lives in [place] has some RELIEF MATE hours -will likely need more- through [facility]- [facility]If unable to return home in timely manner may need TCU 07/09/24 discussing possible discharge by end of week Diet, regular. LUE pain-per plastics-Per prior hand surgery team consultation notes - patient does not meet indications for casting and could lead to increased harm including permanent finger stiffness and loss of function. Furthermore, a removal wrist brace would adequately mobilize the left wrist/hand and help treat any sort of inflammation along with NSAIDs. 07/08/2024 notes per plastics unclear if no WB restrictions or NWB on left hand- per note from plastics- no restrictions We have asked our OT colleagues to work with the patient to obtain a splint that would meet his needs and for guidance from their expertise. Per the OT note on 07/04, concern that splinting would continue to cause MCP stiffness/soreness given this will not offload weight bearing through the MCPs during transfers. The plan was for OT to work with the PT team and the patient to minimize weightbearing through the MCPs and to create a left edema glove for cushion/compression. Order placed for OT Tuesday has splint -not wearing Team rounds attended for coordination of care and discharge planning. Please see additional team rounds note. 52 minutes spent by me on the date of service doing chart review,history,exam,coordination of care , documentation and furthur activites per the note including team runds and observation in therapy. Nithya Jacobs MD 07/10/24 4:19 PM Physical Medicine and Rehabilitation * Nithya Jacobs MD - 07/09/2024 1:56 PM CDT [facility] PM&R Progress Note () Patient: Krunal Salter Date of service: 07/09/2024 Diagnosis: weakness SUBJECTIVE: Making nice gains- up in parallel bars and with walker/min assist Independent in room Hoping for discharge by end of week Bowel program worked well over weekend -didn't do today-reviewed timed toileting and daily bowel program to avoid accidents Wondering about KAFOs-discussed also concerns re neck pain Has previous pair of AFOs at home OBJECTIVE: Filed Vitals: 07/08/24 0645 07/08/24 1520 07/09/24 0600 07/09/24 1600 BP: 114/55 126/68 114/49 121/58 Pulse: 81 98 (!) 104 91 Resp: 16 18 18 18 Temp: 97.4 ??F (36.3 ??C) 98 ??F (36.7 ??C) 97.7 ??F (36.5 ??C) 98.3 ??F (36.8 ??C) TempSrc: Oral Oral Oral Oral SpO2: 98% 97% 97% 97% Weight: Height: Estimated body mass index is 21.95 kg/m?? as calculated from the following: Height as of this encounter: 6' 1 (1.854 m). Weight as of this encounter: 75.5 kg (166 lb 6.4 oz). Gen: alert,interactive, NAD Respiratory: Lungs clear bilaterally CV: Regular rate and rhythm Abd:wearing TLSO-wore variably today Extremities: no edema, BUE 4/+5, bilateral HF 2/+5 KF 2/5 wearing short AFOs Skin: intact where seen Data: Current Facility-Administered Medications Medication Dose Route Frequency acetaminophen (TYLENOL) tablet 650 mg 650 mg Oral Q6H PRN ALBUterol sulfate HFA inhaler 2 Puff 2 Puff Inhalation Q4H PRN polyethylene glycol (MIRALAX) oral powder 17 g 17 g Oral Daily And bisacodyl (DULCOLAX) rectal suppository 10 mg 10 mg Rectal DAILY PRN cyclobenzaprine (FLEXERIL) tablet 5-10 mg 5-10 mg Oral TID PRN diazePAM (VALIUM) tablet 5 mg 5 mg Oral Q6H PRN diazePAM (VALIUM) tablet 5 mg 5 mg Oral Q6H PRN enoxaparin (LOVENOX) prefilled syringe 40 mg 40 mg Subcutaneous 2000 famotidine (PEPCID) tablet 20 mg 20 mg Oral BID FLUoxetine (PROZAC) capsule 20 mg 20 mg Oral Daily [START ON 07/10/2024] fluticasone propionate (FLONASE) 50 MCG/ACT nasal spray 1 [place] 1 [place] See Admin Instructions Weekly gabapentin (NEURONTIN) capsule 900 mg 900 mg Oral TID ibuprofen (MOTRIN) tablet 400 mg 400 mg Oral Q6H PRN lidocaine (UROJET) 2 % gel prefilled syringe Urethral PRN with procedures loratadine (CLARITIN) tablet 10 mg 10 mg Oral BID melatonin tablet 6 mg 6 mg Oral At bedtime PRN metoclopramide (REGLAN) tablet 5 mg 5 mg Oral TID before meals ondansetron (ZOFRAN) tablet 4 mg 4 mg Oral Q8H PRN oxyCODONE (ROXICODONE) immediate release tablet 5 mg 5 mg Oral BID PRN pantoprazole DR (PROTONIX) tablet 40 mg 40 mg Oral BID before meals sennosides-docusate sodium (SENOKOT S) 8.6-50 MG per tablet 1 Tablet 1 Tablet Oral Daily traZODone (DESYREL) tablet 50 mg 50 mg Oral At bedtime PRN Allergies Allergen Reactions Other Other, see comments HAS AN ALLERGY TO SOME KIND OF SUGAR HAVING TESTING TO DETERMINE TYPE ADLs MOBILITY COGNITION Category Initial IRF-TIFFANIE Current IRF-TIFFANIE Category Initial IRF-TIFFANIE Current IRF- TIFFANIE Category Initial IRF-TIFFANIE Current IRF-TIFFANIE Eating 5: Setup/clean up assistance - prior and/or following activity 6: Independent - no helper assist Sit to Stand 88: Not attempted due to medical condition or safety concerns 3: Partial/mod assist - [place] does <50% Comprehension 4: Has clear comprehension without cues or repetition 4: Has clear comprehension without cues or repetition Shower/Bathe Self 3: Partial/mod assist - helper does <50% 6: Independent - no helper assist Chair/Bed to Chair Transfer 1: Dependent - [place] does ALL effort/assistance of 2 (per chart review) 6:Independent - no helper assist Expression 4: expresses complex messages without difficulty 4: expresses complex messages without difficulty UB Dressing 2: Substantial/max assist - [place] does >50% 6: Independent - no helper assist Car Transfer 2: Substantial/max assist - [place] does >50% 2: Substantial/max assist - [place] does >50% Attention 4: concentrate without difficulty regardless of setting, can alternate attention independently 4: concentrate without difficulty regardless of setting, can alternate attention independently LB Dressing 1: Dependent - [place] does ALL effort/assistance of 2 6: Independent - no helper assistToilet Transfers 2: Substantial/max assist - [place] does >50% 4: Supervision/touch assist - verbal cues and/or touching/steadying and/or contact guard assistance Problem-Solving 4: solves complex,multi-step or abstract problems without difficulty or assist 4: solves complex, multi-step or abstract problems without difficulty or assist Valentin/Doff Footwear 1: Dependent - [place] does ALL effort/assistance of 2 6: Independent - no helperassist Walk 10 feet 88: Not attempted due to medical condition or safety concerns 3: Partial/mod assist - [place] does <50% Memory 4: recalls novel info., completes tasks independently with/withoutaide 4: recalls novel info., completes tasks independently with/without aide Toileting Hygiene 1: Dependent - [place] does ALL effort/assistance of 2 1: Dependent - [place] does ALL effort/assistance of 2 Walk 50 feet with two turns 2: Substantial/max assist - [place] does >50% 2: Substantial/max assist - [place] does >50% Bladder Intervention Assistance 2: Substantial/max assist - [place] does >50% 5: Setup/clean up assistance - prior and/or following activity Walk 150 feet Bladder Continence 4: Always incontinent 3: Incontinent daily (at least once a day) Wheel 50 feet with 2 turns 2: Substantial/max assist - [place] does >50% 6: Independent - no helper assist Bowel Intervention Assistance 1: Dependent -[place] does ALL effort/assistance of 2 1: Dependent -[place] does ALL effort/assistance of 2 Wheel 150 feet 2: Substantial/max assist - [place] does >50% 6: Independent - no helper assist Bowel Continence 2: Frequently incontinent (2 or more episodes of bowel incontinence, but at lease one continent bowel movement) 2: Frequently incontinent (2 or more episodes of bowel incontinence, but at lease one continent bowel movement) 4 Steps with 1 rail 88: Not attempted due to medical condition or safety concerns 88: Not attempted due to medical condition or safety concerns 12 Steps with 1 rail 88: Not attempted due to medical condition or safety concerns 88: Not attempted due to medical condition or safety concerns 1 Step up & down (curb) 88: Not attempted due to medical condition or safety concerns 88: Not attempted due to medical condition or safety concerns Therapy Information: PT Session 1 Beginning Time: 09 (07/09/2024) PT Session 1 Ending Time: 09 (07/09/2024) PT Session 1 Total Minutes: 30 minutes (07/09/2024) PT Session 2 Beginning Time: 1100 (07/09/2024) PT Session 2 Ending Time: 1130 (07/09/2024) PT Session 2 Total Minutes: 30 minutes (07/09/2024) PT Session 3 Beginning Time: 1430 (07/09/2024) PT Session 3 Ending Time: 1500 (07/09/2024) PT Session 3 Total Minutes: 30 minutes (07/09/2024) OT Session 1 Beginning Time: 0930 (07/09/2024) OT Session 1 Ending Time: 1030 (07/09/2024) OT Session 1 Total Minutes: 60 minutes (07/09/2024) OT Session 2 Beginning Time: (P) 1330 (07/09/2024) OT Session 2 Ending Time: (P) 1430 (07/09/2024) OT Session 2 Total Minutes: (P) 60 minutes (07/09/2024) Stool/Bowel: Patient Vitals for the past 120 hrs: Stool Amount 07/08/24 0900 Large 07/07/24 1000 Large 07/06/242032 Moderate 07/06/24 1244 Large 07/06/24 1200 Large 07/04/24 2200 Large Patient Vitals for the past 120 hrs: Stool Color 07/08/24 0900 brown 07/07/24 1000 brown 07/06/242032 brown 07/06/24 1244 brown 07/06/24 1200 [facility] 07/04/24 2200 [facility] Patient Vitals for the past 120 hrs: Stool Consistency 07/08/24 0900 hard;soft 07/07/24 1000 hard 07/06/242032 soft 07/06/24 1244 soft 07/06/24 1200 soft 07/04/24 2200 soft;formed Bladder Scan: No data found. Post-void Residual: No data found. Labs: No results found for this or any previous visit (from the past 24 hours). ASSESSMENT / PLAN: 24-year-old male with history of Klinefelter syndrome, unspecified Kamari- Danlos, chronic pain, bilateral hip dysplasia and labral tear, recurrent peroneal tendon subluxation, status post right lowerextremity surgery, history of left wrist surgery, history of pectus excavatum surgery, recent percutaneous gastrostomy, and possible POTS and gastroparesis, now with dependence in mobility, dependence in self cares and significant debilitation, admitted for intensive inpatient rehabilitation. Radiographic negative possible traumatic myelopathy, intensive PT and OT 3 times daily07/06 per plastics no restrictions LUE 07/09 making nice gains Recent surgery in April with Dr. Van to repair dislocation of perineal tendons with fibular groove deepening and longus to brevis tendinosis. Per Dr. Van's note 07/04 will require bilateral lower extremity custom short articulated AFOs, has been molded for these, [employer] to fabricate them to help provide support for his ankles as he is mobilized.07/06 has AFOs Patient would like to discuss and consider KANYA, AFOs were done by [employer]-07/09 reviewed reasons forno KAFOs Back pain. Does have a TLSO for stabilization, not required neurologically but used for pain. Questionable history of POTS versus syncope. Evaluation all negative. Outpatient 30-day event monitor. Chronic pain syndrome, followed by Pain here. Minimize narcotics, as able TLSO as needed. Gabapentin 900 mg t.i.d. Tylenol 650 q.6 hours as needed Flexeril 5-10 mg t.i.d. p.r.n. Oxycodone 5 mg b.i.d. p.r.n. Valium 2.5 mg as needed and 2.5 for breakthrough pain. 6/1 increased Valium to 5 mg History of malnutrition. GJ changed for a Mode. We will have dietitian follow and make recommendations. He is on a regular diet. History of neurogenic bladder with urinary retention, not noting urinary retention here. He is having variable urinary incontinence/using urinal and using briefs. We will monitor bladder scans and catheterize as needed. Urine culture negative.thus far low PVRs although ? Hx retention timed voiding Neurogenic bowel. Daily bowel program.will do formal bowel program History of anal fissure with bleeding noted on 06/23, no recurrence. We would recommend stool softener to prevent rebleeding. Gastroesophageal reflux disease. Be aware of NSAID use. Continued PPI twice daily. Maalox p.r.n. Does use both Reglan and Zofran as needed. History of anxiety/depression. Continue fluoxetine 20 mg daily. Rehab Psych to follow up. Dependence in mobility. Three times daily physical therapy.up with walker- doing well with wheelchair Dependence in self cares, 3 times daily occupational therapy and rehab nursing.Will need to wrk on strategies for tube feeding,self care in order to return home-doing well DVT prophylaxis. He is on enoxaparin until mobilizing further. Code status, full. Therapeutic Rec - leisure skills and community reintegration. Rehab Psych -adjustment to disability. Pressure ulcer risk assessment. He does not have known peripheral vascular arterial disease, diabetes, or any of its complications, impaired cognition, or communication deficits or major fractures asrisk factors for pressure ulcers. He does have variably impaired sensation, splints, orthoses, and impaired mobility as risk factors for pressure ulcers. Clinically significant medication issues. No potential clinically significant medication issues noted on admission. Continue to monitor. Discharge planning. Social Work to work with patient and mother. We will need to determine whether he can return to mother's home with accessibility issues or look at other options. Estimated length of stay 07/24/24 pending further evaluation. Rehab prognosis fair to good.Lives in [place] has some RELIEF MATE hours -will likely need more- through [facility]- some programming through [facility].If unable to return home in timely manner may need TCU 07/09/24 discussing possible discharge by end of week Diet, regular. LUE pain-per plastics-Per prior hand surgery team consultation notes - patient does not meet indications for casting and could lead to increased harm including permanent finger stiffness and loss of function. Furthermore, a removal wrist brace would adequately mobilize the left wrist/hand and help treat any sort of inflammation along with NSAIDs. 07/08/2024 notes per plastics unclear if no WB restrictions or NWB on left hand- per note from plastics- no restrictions We have asked our OT colleagues to work with the patient to obtain a splint that would meet his needs and for guidance from their expertise. Per the OT note on 07/04, concern that splinting would continue to cause MCP stiffness/soreness given this will not offload weight bearing through the MCPs during transfers. The plan was for OT to work with the PT team and the patient to minimize weightbearing through the MCPs and to create a left edema glove for cushion/compression. Order placed for OT Tuesday 40 minutes spent by me on the date of service doing chart review,history,exam,coordination of care , documentation and furthur activites per the note. Nithya Jacobs MD 07/09/24 4:05 PM Physical Medicine and Rehabilitation * Anahi Hinds MD - 07/08/2024 4:06 PM CDT [facility] PM&R Progress Note () Patient: Krunal Salter Date of service: 07/08/2024 Diagnosis: weakness SUBJECTIVE: No acute events overnight. Nursing reported some granulation tissue surrounding the PEG tube and some bleeding. Evaluated by Wound RN, we will continue to monitor. Patient reports that he had a twinge in his neck that caused significant pain and weakness. Reports at home he takes Valium about 10 mgto help with his pain and use less of the oxycodone, would like the current dosing to be increased his home dose. Also would like to trial KAFOs to help with his knee stability. Also discussed discharge planning. Patient is concerned that he can not ambulate with his wheelchair to the bathroom. Also frustrated regarding weight-bearing recommendations that were unclear from Plastic surgery. He has been weight-bearing through his left elbow and occasionally on his hand. Plastic surgery clarified no weight bearing restrictions. OBJECTIVE: Filed Vitals: 07/07/24 0629 07/07/24 1720 07/08/24 0645 07/08/24 1520 BP: 110/55 (!) 141/82 114/55 126/68 Pulse: 84 88 81 98 Resp: 18 18 16 18 Temp: 97.8 ??F (36.6 ??C) 97.9 ??F (36.6 ??C) 97.4 ??F (36.3 ??C) 98 ??F (36.7 ??C) TempSrc: Oral Oral Oral Oral SpO2: 97% 96% 98% 97% Weight: Height: Estimated body mass index is 21.95 kg/m?? as calculated from the following: Height as of this encounter: 6' 1 (1.854 m). Weight as of this encounter: 75.5 kg (166 lb 6.4 oz). Gen: alert,interactive, NAD Respiratory: Lungs clear bilaterally CV: Regular rate and rhythm Abd:wearing TLSO Extremities: no edema, BUE 4/5, bilateral HF 2/5 KF 2/5 Skin: intact where seen Data: Current Facility-Administered Medications Medication Dose Route Frequency acetaminophen (TYLENOL) tablet 650 mg 650 mg Oral Q6H PRN ALBUterol sulfate HFA inhaler 2 Puff 2 Puff Inhalation Q4H PRN polyethylene glycol (MIRALAX) oral powder 17 g 17 g Oral Daily And bisacodyl (DULCOLAX) rectal suppository 10 mg 10 mg Rectal DAILY PRN cyclobenzaprine (FLEXERIL) tablet 5-10 mg 5-10 mg Oral TID PRN diazePAM (VALIUM) tablet 2.5 mg 2.5 mg Oral Q6H PRN diazePAM (VALIUM) tablet 2.5 mg 2.5 mg Oral Q6H PRN enoxaparin (LOVENOX) prefilled syringe 40 mg 40 mg Subcutaneous 2000 famotidine (PEPCID) tablet 20 mg 20 mg Oral BID FLUoxetine (PROZAC) capsule 20 mg 20 mg Oral Daily [START ON 07/10/2024] fluticasone propionate (FLONASE) 50 MCG/ACT nasal spray 1 [place] 1 [place] See Admin Instructions Weekly gabapentin (NEURONTIN) capsule 900 mg 900 mg Oral TID ibuprofen (MOTRIN) tablet 400 mg 400 mg Oral Q6H PRN lidocaine (UROJET) 2 % gel prefilled syringe Urethral PRN with procedures loratadine (CLARITIN) tablet 10 mg 10 mg Oral BID melatonin tablet 6 mg 6 mg Oral At bedtime PRN metoclopramide (REGLAN) tablet 5 mg 5 mg Oral TID before meals ondansetron (ZOFRAN) tablet 4 mg 4 mg Oral Q8H PRN oxyCODONE (ROXICODONE) immediate release tablet 5 mg 5 mg Oral BID PRN pantoprazole DR (PROTONIX) tablet 40 mg 40 mg Oral BID before meals sennosides-docusate sodium (SENOKOT S) 8.6-50 MG per tablet 1 Tablet 1 Tablet Oral Daily traZODone (DESYREL) tablet 50 mg 50 mg Oral At bedtime PRN Allergies Allergen Reactions Other Other, see comments HAS AN ALLERGY TO SOME KIND OF SUGAR HAVING TESTING TO DETERMINE TYPE ADLs MOBILITY COGNITION Category Initial IRF-TIFFANIE Current IRF-TIFFANIE Category Initial IRF-TIFFANIE Current IRF- TIFFANIE Category Initial IRF-TIFFANIE Current IRF-TIFFANIE Eating 5: Setup/clean up assistance - prior and/or following activity 6: Independent - no helper assist Sit to Stand 88: Not attempted due to medical condition or safety concerns 88: Not attempted due to medical condition or safety concerns Comprehension 4: Has clear comprehension without cues or re petition 4: Has clear comprehension without cues or repetition Shower/Bathe Self 3: Partial/mod assist - helper does <50% 3: Partial/mod assist - helper does <50% Chair/Bed to Chair Transfer 1: Dependent - [place] does ALL effort/assistance of 2 (per chart review) 3: Partial/mod assist - [place] does <50% Expression 4: expresses complex messages withoutdifficulty 4: expresses complex messages without difficulty UB Dressing 2: Substantial/max assist - [place] does >50% 3: Partial/mod assist - [place] does <50% Car Transfer 2: Substantial/max assist - [place] does >50% 2: Substantial/max assist - Helperdoes >50% Attention 4: concentrate without difficulty regardless of setting, can alternate attention independently 4: concentrate without difficulty regardless of setting, can alternate attention i ndependently LB Dressing 1: Dependent - [place] does ALL effort/assistance of 2 4: Supervision/touch assist - verbal cues or touch/steady Toilet Transfers 2: Substantial/max assist - [place] does >50% 4: Supervision/touch assist - verbal cues and/or touching/steadying and/or contact guard assistance Problem-Solving 4: solves complex, multi-step or abstract problems without difficulty or assist 4: solves complex, multi-step or abstract problems without difficulty or assist Valentin/Doff Footwear 1: Dependent - [place] does ALL effort/assistance of 2 5: Setup/clean up assistance - prior and/or following activity Walk 10 feet 88: Not attempted due to medical condition or safety concerns 88: Not attempted due to medical condition or safety concerns Memory 4: recalls novel info., completes tasks independently with/without aide 4: recalls novel info., completes tasks independently with/without aide Toileting Hygiene 1: Dependent - [place] does ALL effort/assistance of 2 1: Dependent - [place] does ALL effort/assistance of 2 Walk 50 feet with two turns Bladder Intervention Assistance 2: Substantial/max assist - [place] does >50% 5: Setup/clean up assistance - prior and/or following activity Walk 150 feet Bladder Continence 4: Always incontinent 3: Incontinent daily (at least once a day) Wheel 50 feet with 2 turns 2: Substantial/max assist - [place] does >50% 3: Partial/mod assist - [place] does <50% Bowel Intervention Assistance 1: Dependent -[place] does ALL effort/assistance of 2 1: Dependent -[place] does ALL effort/assistance of 2 Wheel 150 feet 2: Substantial/max assist - [place] does >50% 3: Partial/mod assist - [place] does <50% Bowel Continence 2: Frequently incontinent (2 or more episodes of bowel incontinence, but at lease one continent bowel movement) 2: Frequently incontinent (2 or more episodes of bowel incontinence, but at lease one continent bowel movement) 4 Steps with 1 rail 88: Not attempted due to medical condition or safety concerns 88: Not attempted due to medical condition or safety concerns 12 Steps with 1 rail 88: Not attempted due to medical condition or safety concerns 88: Not attempted due to medical condition or safety concerns 1 Step up & down (curb) 88: Not attempted due to medical condition or safety concerns 88: Not attempted due to medical condition or safety concerns Therapy Information: PT Session 1 Beginning Time: 1100 (07/08/2024) PT Session 1 Ending Time: 1200 (07/08/2024) PT Session 1 Total Minutes: 60 minutes (07/08/2024) PT Session 2 Beginning Time: 1430 (07/08/2024) OT Session 1 Beginning Time: 1000 (07/08/2024) OT Session 1 Ending Time: 1100 (07/08/2024) OT Session 1 Total Minutes: 60 minutes (07/08/2024) OT Session 2 Beginning Time: 1400 (07/08/2024) OT Session 2 Ending Time: 1430 (07/08/2024) OT Session 2 Total Minutes: 30 minutes (07/08/2024) Stool/Bowel: Patient Vitals for the past 120 hrs: Stool Amount 07/08/24 0900 Large 07/07/24 1000 Large 07/06/24 2033 Moderate 07/06/24 1244 Large 07/06/24 1200 Large 07/04/24 2200 Large Patient Vitals for the past 120 hrs: Stool Color 07/08/24 0900 brown 07/07/24 1000 brown 07/06/24 2033 brown 07/06/24 1244 brown 07/06/24 1200 brown 07/04/24 2200 brown Patient Vitals for the past 120 hrs: Stool Consistency 07/08/24 0900 hard;soft 07/07/24 1000 hard 07/06/24 2033 soft 07/06/24 1244 soft 07/06/24 1200 soft 07/04/24 2200 soft;formed Bladder Scan: No data found. Post-void Residual: Patient Vitals for the past 24 hrs: Post Void Residual Scan (mL) (Not in Output) 07/08/24 1400 42 Scanned mL 07/08/24 0900 115 Scanned mL 07/08/24 0700 346 Scanned mL Labs: No results found for this or any previous visit (from the past 24 hours). ASSESSMENT / PLAN: 24-year-old male with history of Klinefelter syndrome, unspecified Kamari- Danlos, chronic pain, bilateral hip dysplasia and labral tear, recurrent peroneal tendon subluxation, status post right lowerextremity surgery, history of left wrist surgery, history of pectus excavatum surgery, recent percutaneous gastrostomy, and possible POTS and gastroparesis, now with dependence in mobility, dependence in self cares and significant debilitation, admitted for intensive inpatient rehabilitation. Radiographic negative possible traumatic myelopathy, intensive PT and OT 3 times daily07/06 per plastics no restrictions LUE Recent surgery in April with Dr. Van to repair dislocation of perineal tendons with fibular groove deepening and longus to brevis tendinosis. Per Dr. Van's note 07/04 will require bilateral lower extremity custom short articulated AFOs, has been molded for these, [employer] to fabricate them to help provide support for his ankles as he is mobilized.07/06 has AFOs Patient would like to discuss and consider KAFO, AFOs were done by till just Back pain. Does have a TLSO for stabilization, not required neurologically but used for pain. Questionable history of POTS versus syncope. Evaluation all negative. Outpatient 30-day event monitor. Chronic pain syndrome, followed by Pain here. Minimize narcotics, as able TLSO as needed. Gabapentin 900 mg t.i.d. Tylenol 650 q.6 hours as needed Flexeril 5-10 mg t.i.d. p.r.n. Oxycodone 5 mg b.i.d. p.r.n. Valium 2.5 mg as needed and 2.5 for breakthrough pain. 07/08 increased Valium to 5 mg History of malnutrition. GJ changed for a Mode. We will have dietitian follow and make recommendations. He is on a regular diet. History of neurogenic bladder with urinary retention, not noting urinary retention here. He is having variable urinary incontinence/using urinal and using briefs. We will monitor bladder scans and catheterize as needed. Urine culture negative.thus far low PVRs although ? Hx retention Neurogenic bowel. Daily bowel program. 07/06-will do formal bowel program History of anal fissure with bleeding noted on 06/23, no recurrence. We would recommend stool softener to prevent rebleeding. Gastroesophageal reflux disease. Be aware of NSAID use. Continued PPI twice daily. Maalox p.r.n. Does use both Reglan and Zofran as needed. History of anxiety/depression. Continue fluoxetine 20 mg daily. Rehab Psych to follow up. Dependence in mobility. Three times daily physical therapy. Dependence in self cares, 3 times daily occupational therapy and rehab nursing.Will need to wrk on strategies for tube feeding,self care in order to return home DVT prophylaxis. He is on enoxaparin until mobilizing further. Code status, full. Therapeutic Rec - leisure skills and community reintegration. Rehab Psych -adjustment to disability. Pressure ulcer risk assessment. He does not have known peripheral vascular arterial disease, diabetes, or any of its complications, impaired cognition, or communication deficits or major fractures asrisk factors for pressure ulcers. He does have variably impaired sensation, splints, orthoses, and impaired mobility as risk factors for pressure ulcers. Clinically significant medication issues. No potential clinically significant medication issues noted on admission. Continue to monitor. Discharge planning. Social Work to work with patient and mother. We will need to determine whether he can return to mother's home with accessibility issues or look at other options. Estimated length of stay 07/24/24 pending further evaluation. Rehab prognosis fair to good.Lives in [place] has some [employer] hours -will likely need more- through [facility]- [facility]If unable to return home in timely manner may need TCU Diet, regular. LUE pain-per plastics-Per prior hand surgery team consultation notes - patient does not meet indications for casting and could lead to increased harm including permanent finger stiffness and loss of function. Furthermore, a removal wrist brace would adequately mobilize the left wrist/hand and help treat any sort of inflammation along with NSAIDs. 07/08/2024 notes per plastics unclear if no WB restrictions or NWB on left hand We have asked our OT colleagues to work with the patient to obtain a splint that would meet his needs and for guidance from their expertise. Per the OT note on 07/04, concern that splinting would continue to cause MCP stiffness/soreness given this will not offload weight bearing through the MCPs during transfers. The plan was for OT to work with the PT team and the patient to minimize weightbearing through the MCPs and to create a left edema glove for cushion/compression. Order placed for OT Tuesday Anahi Hinds MD 07/08/24 4:07 PM Physical Medicine and Rehabilitation * Anahi Hinds MD - 07/07/2024 1:53 PM CDT [facility] PM&R Progress Note () Patient: Krunal Salter Date of service: 07/07/2024 Diagnosis: weakness SUBJECTIVE: No acute events overnight. Patient reports that he has been tolerating therapies since he had add the TLSO and the casts removed. Reports that he feels his left side is still weaker than his right. Feels that his knees not stable, discussed that he would like to try KAFO to see if it will help withhis joint stability. Also inquired about increasing his Valium dose to help with pain control previo usly was on 10 mg. OBJECTIVE: Filed Vitals: 07/05/24201107/06/24 0604 07/06/24 1632 07/07/24 0629 BP: 118/50 122/60 122/78 110/55 Pulse: 90 93 93 84 Resp: 17 18 18 Temp: 97.5 ??F (36.4 ??C) 98.1 ??F (36.7 ??C) 98 ??F (36.7 ??C) 97.8 ??F (36.6 ??C) TempSrc: Oral Oral Oral Oral SpO2: 97% 97% 98% 97% Weight: Height: Estimated body mass index is 21.95 kg/m?? as calculated from the following: Height as of this encounter: 6' 1 (1.854 m). Weight as of this encounter: 75.5 kg (166 lb 6.4 oz). Gen: alert,interactive, NAD Respiratory: Lungs clear bilaterally CV: Regular rate and rhythm Abd:wearing TLSO Extremities: no edema Skin: intact where seen Data: Current Facility-Administered Medications Medication Dose Route Frequency acetaminophen (TYLENOL) tablet 650 mg 650 mg Oral Q6H PRN ALBUterol sulfate HFA inhaler 2 Puff 2 Puff Inhalation Q4H PRN polyethylene glycol (MIRALAX) oral powder 17 g 17 g Oral Daily And bisacodyl (DULCOLAX) rectal suppository 10 mg 10 mg Rectal DAILY PRN cyclobenzaprine (FLEXERIL) tablet 5-10 mg 5-10 mg Oral TID PRN diazePAM (VALIUM) tablet 2.5 mg 2.5 mg Oral Q6H PRN diazePAM (VALIUM) tablet 2.5 mg 2.5 mg Oral Q6H PRN enoxaparin (LOVENOX) prefilled syringe 40 mg 40 mg Subcutaneous 2000 famotidine (PEPCID) tablet 20 mg 20 mg Oral BID FLUoxetine (PROZAC) capsule 20 mg 20 mg Oral Daily [START ON 07/10/2024] fluticasone propionate (FLONASE) 50 MCG/ACT nasal spray 1 [place] 1 [place] See Admin Instructions Weekly gabapentin (NEURONTIN) capsule 900 mg 900 mg Oral TID ibuprofen (MOTRIN) tablet 400 mg 400 mg Oral Q6H PRN lidocaine (UROJET) 2 % gel prefilled syringe Urethral PRN with procedures loratadine (CLARITIN) tablet 10 mg 10 mg Oral BID melatonin tablet 6 mg 6 mg Oral At bedtime PRN metoclopramide (REGLAN) tablet 5 mg 5 mg Oral TID before meals ondansetron (ZOFRAN) tablet 4 mg 4 mg Oral Q8H PRN oxyCODONE (ROXICODONE) immediate release tablet 5 mg 5 mg Oral BID PRN pantoprazole DR (PROTONIX) tablet 40 mg 40 mg Oral BID before meals sennosides-docusate sodium (SENOKOT S) 8.6-50 MG per tablet 1 Tablet 1 Tablet Oral Daily traZODone (DESYREL) tablet 50 mg 50 mg Oral At bedtime PRN Allergies Allergen Reactions Other Other, see comments HAS AN ALLERGY TO SOME KIND OF SUGAR HAVING TESTING TO DETERMINE TYPE ADLs MOBILITY COGNITION Category Initial IRF-TIFFANIE Current IRF-TIFFANIE Category Initial IRF-TIFFANIE Current IRF- TIFFANIE Category Initial IRF-TIFFANIE Current IRF-TIFFANIE Eating 5: Setup/clean up assistance - prior and/or following activity 6: Independent - no helper assist Sit to Stand 88: Not attempted due to medical condition or safety concerns 88: Not attempted due to medical condition or safety concerns Comprehension 4: Has clear comprehension without cues or re petition 4: Has clear comprehension without cues or repetition Shower/Bathe Self 3: Partial/mod assist - helper does <50% 3: Partial/mod assist - helper does <50% Chair/Bed to Chair Transfer 1: Dependent - [place] does ALL effort/assistance of 2 (per chart review) 3: Partial/mod assist - [place] does <50% Expression 4: expresses complex messages withoutdifficulty 4: expresses complex messages without difficulty UB Dressing 2: Substantial/max assist - [place] does >50% 2: Substantial/max assist - [place] does>50% Car Transfer 2: Substantial/max assist - [place] does >50% 2: Substantial/max assist - [place] does >50% Attention 4: concentrate without difficulty regardless of setting, can alternate attention independently 4: concentrate without difficulty regardless of setting, can alternate attention independently LB Dressing 1: Dependent - [place] does ALL effort/assistance of 2 3: Partial/mod assist - [place] does <50% Toilet Transfers 2: Substantial/max assist - [place] does >50% 2: Substantial/max assist - [place] does >50% Problem-Solving 4: solves complex, multi-step or abstract problems without difficulty or assist 4: solves complex, multi-step or abstract problems without difficulty or assist Valentin/Doff Footwear 1: Dependent - [place] does ALL effort/assistance of 2 3: Partial/mod assist - [place] does <50% Walk 10 feet 88: Not attempted due to medical condition or safety concerns 88: Notattempted due to medical condition or safety concerns Memory 4: recalls novel info., completes tasks independently with/without aide 4: recalls novel info., completes tasks independently with/withoutaide Toileting Hygiene 1: Dependent - [place] does ALL effort/assistance of 2 1: Dependent - [place] does ALL effort/assistance of 2 Walk 50 feet with two turns Bladder Intervention Assistance 2: Substantial/max assist - [place] does >50% 2: Substantial/max assist - [place] does >50% Walk 150 feet Bladder Continence 4: Always incontinent 3: Incontinent daily (at least once a day) Wheel 50 feet with 2 turns 2: Substantial/max assist - [place] does >50% 3: Partial/mod assist - [place] does <50% Bowel Intervention Assistance Wheel 150 feet 2: Substantial/max assist - [place] does >50% 3: Partial/mod assist - [place] does <50% Bowel Continence 2: Frequently incontinent (2 or more episodes of bowel incontinence, but at lease one continent bowel movement) 2: Frequently incontinent (2 or more episodes of bowel incontinence, but at lease one continent bowel movement) 4 Steps with 1 rail 88: Not attempted due to medical condition or safety concerns 88: Not attempted due to medical condition or safety concerns 12 Steps with 1 rail 88: Not attempted due to medical condition or safety concerns 88: Not attempted due to medical condition or safety concerns 1 Step up & down (curb) 88: Not attempted due to medical condition or safety concerns 88: Not attempted due to medical condition or safety concerns Therapy Information: PT Session 1 Beginning Time: 0930 (07/06/2024) PT Session 1 Ending Time: 1000 (07/06/2024) PT Session 1 Total Minutes: 30 minutes (07/06/2024) PT Session 2 Beginning Time: 1330 (07/06/2024) PT Session 2 Ending Time: 1430 (07/06/2024) PT Session 2 Total Minutes: 60 minutes (07/06/2024) OT Session 1 Beginning Time: 1030 (07/06/2024) OT Session 1 Ending Time: 1130 (07/06/2024) OT Session 1 Total Minutes: 60 minutes (07/06/2024) OT Session 2 Beginning Time: 1430 (07/06/2024) OT Session 2 Ending Time: 1500 (07/06/2024) OT Session 2 Total Minutes: 30 minutes (07/06/2024) Stool/Bowel: Patient Vitals for the past 120 hrs: Stool Amount 07/07/24 1000 Large 07/06/24 2033 Moderate 07/06/24 1244 Large 07/06/24 1200 Large 07/04/24 2200 Large Patient Vitals for the past 120 hrs: Stool Color 07/07/24 1000 brown 07/06/24 2033 brown 07/06/24 1244 brown 07/06/24 1200 brown 07/04/24 2200 brown Patient Vitals for the past 120 hrs: Stool Consistency 07/07/24 1000 hard 07/06/24 2033 soft 07/06/24 1244 soft 07/06/24 1200 soft 07/04/24 2200 soft;formed Bladder Scan: No data found. Post-void Residual: Patient Vitals for the past 24 hrs: Post Void Residual Scan (mL) (Not in Output) 07/07/24 1000 142 Scanned mL 07/06/24 2033 128 Scanned mL 07/06/24 1700 0 Scanned mL Labs: No results found for this or any previous visit (from the past 24 hours). ASSESSMENT / PLAN: 24-year-old male with history of Klinefelter syndrome, unspecified Kamari- Danlos, chronic pain, bilateral hip dysplasia and labral tear, recurrent peroneal tendon subluxation, status post right lowerextremity surgery, history of left wrist surgery, history of pectus excavatum surgery, recent percutaneous gastrostomy, and possible POTS and gastroparesis, now with dependence in mobility, dependence in self cares and significant debilitation, admitted for intensive inpatient rehabilitation. 1. 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 Recent surgery in April with Dr. Van to repair dislocation of perineal tendons with fibulargroove deepening and longus to brevis tendinosis. Per Dr. Van's note 07/04 will require bilateral lower extremity custom short articulated AFOs, has been molded for these, [employer] to fabricate them to help provide support for his ankles as he is mobilized.07/06 has AFOs 3. Back pain. Does have a TLSO for stabilization, not required neurologically but used for pain. 4. History of neurogenic bladder with urinary retention, not noting urinary retention here. He is having variable urinary incontinence/using urinal and using briefs. We will monitor bladder scans andcatheterize as needed. Urine culture negative.thus far low PVRs although ? Hx retention 5. Neurogenic bowel. Daily bowel program.BM 07/06-will do formal bowel program 6. Questionable history of POTS versus syncope. Evaluation all negative. Outpatient 30-day event monitor. 7. Chronic pain syndrome, followed by Pain here. Medications as noted above. Minimize narcotics, asable TLSO as needed. Reconsult Plastic Surgery regarding left wrist recommendations.see below 8. History of malnutrition. GJ changed for a Mode. We will have dietitian follow and make recommendations. He is on a regular diet. 9. History of anal fissure with bleeding noted on 06/23, no recurrence. We would recommend stool softener to prevent rebleeding. 10. Gastroesophageal reflux disease. Be aware of NSAID use. Continued PPI twice daily. Maalox p.r.n. Does use both Reglan and Zofran as needed. 11. History of anxiety/depression. Continue fluoxetine 20 mg daily. Rehab Psych to follow up. 12. Dependence in mobility. Three times daily physical therapy. 13. Dependence in self cares, 3 times daily occupational therapy and rehab nursing.Will need to wrkon strategies for tube feeding,self care in order to return home 14. DVT prophylaxis. He is on enoxaparin until mobilizing further. 15. Code status, full. 16. Therapeutic Rec t- leisure skills and community reintegration. 17. Rehab Psych t-adjustment to disability. 18. Pressure ulcer risk assessment. He does not have known peripheral vascular arterial disease, diabetes, or any of its complications, impaired cognition, or communication deficits or major fractures as risk factors for pressure ulcers. He does have variably impaired sensation, splints, orthoses, and impaired mobility as risk factors for pressure ulcers. 19. Clinically significant medication issues. No potential clinically significant medication issuesnoted on admission. Continue to monitor. 20. Discharge planning. Social Work to work with patient and mother. We will need to determine whether he can return to mother's home with accessibility issues or look at other options. Estimated length of stay 07/24/24 pending further evaluation. Rehab prognosis fair to good.[facility] [place] [facility]- [facility]- some programming through [facility].If unable to return home in timely manner may need TCU 21. Diet, regular. 22 LUE pain-per plastics-Per prior hand surgery team consultation notes - patient does not meet indications for casting and could lead to increased harm including permanent finger stiffness and loss of function. Furthermore, a removal wrist brace would adequately mobilize the left wrist/hand and help treat any sort of inflammation along with NSAIDs. We have asked our OT colleagues to work with the patient to obtain a splint that would meet his needs and for guidance from their expertise. Per the OT note on 07/04, concern that splinting would continue to cause MCP stiffness/soreness given this will not offload weight bearing through the MCPs during transfers. The plan was for OT to work with the PT team and the patient to minimize weightbearing through the MCPs and to create a left edema glove for cushion/compression. Order placed for OT Tuesday Anahi Hinds MD 07/07/2024, 1:54 PM Physical Medicine and Rehabilitation * Charlotte Canada MD - 07/06/2024 4:54 PM CDT Plastic Surgery Note 07/06/24 4:55 PM Contacted by PM&R regarding splinting/weight bearing status. In brief, patient is a 24 y.o. male with pmhx Ehler-Danlos , multiple falls, right hand tfcc injury, left hand fusion treated at [facility] (2020) and their hand surgery team. Our team was consultedwhile patient is hospitalized regarding treatment/splinting recommendations. Per prior hand surgery team consultation notes - patient does not meet indications for casting and could lead to increased harm including permanent finger stiffness and loss of function. Furthermore,a removal wrist brace would adequately mobilize the left wrist/hand and help treat any sort of inflammation along with NSAIDs. We have asked our OT colleagues to work with the patient to obtain a splint that would meet his needs and for guidance from their expertise. Per the OT note on 07/04, concern that splinting would continue to cause MCP stiffness/soreness given this will not offload weight bearing through the MCPs during transfers. The plan was for OT to work with the PT team and the patient to minimize weightbearing through the MCPs and to create a left edema glove for cushion/compression. Thus, we defer to the OT/PT team as above regarding splinting. Ok for weight bearing as tolerated from our standpoint. Charlotte Canada MD PGY-4 * Nithya Jacobs MD - 07/06/2024 2:35 PM CDT Individualized Overall Plan of Care Mr. Krunal Salter is an 24 y.o. patient who had falls/procedures/progressive weakness and ? Myelopathy,hypermobility syndrome leading to physical deconditioning, impaired mobility, impaired coordination, impaired balance, dependence with ADL's, and impaired cognition. He was admitted to acute reha bilitation on 07/04/2024. He was admitted for intensive Physical Therapy and Occupational Therapy with goal of independence or standby assist with transfers and self care as well as improving endurance, and cognition. The prognosis for recovery is: good Current medical issues include: bowel/bladder dysfunction,pain,depression,anxiety,gastrotomy It is anticipated that Mr. Krunal Salter will participate in 3 hours a day of therapy including PT 3x/day for 30 minutes per session, 5-6 days per week, for 18 days, OT 3x/day for 30 minutes per session, 5-6 days per week, for 18 days, Anticipated functional outcomes by discharge include: PT anticipated functional outcomes: Honing Machine Try Out Setter Goal 1: Patient will complete bed mobility with independence in order to be safe in his environment., Assisted Goal 2: Patient will complete transfers with independence in order to safely get into wheelchair., Assisted Goal 3: Patient will complete sit to stands with LRGA and Kim to progress functional mobility., Assisted Goal 4: Patient will complete wheelchair mobility on variablesurfaces and inclines/declines with indpendence in order to navigate in the community. OT anticipated functional outcomes: Assisted Goal 1:: Pt will complete ADLs of dressing with IND, Honing Machine Try Out Setter Goal 2:: Pt will be IND with UE HEP, Honing Machine Try Out Setter Goal 3:: Pt will be IND with bowel program Possible complications include fall, DVT, PE, pneumonia, UTI, hypertension, hypotension, hypoglycemia, hyperglycemia, pain, and depression. Plan at discharge will be continued outpatient Physical Therapy and Occupational Therapy. The plan is to discharge Mr. Krunal Salter to home/TCU 07/24/24 Nithya Jacobs MD 07/06/2024, 2:36 PM Physical Medicine and Rehabilitation * Nithya Jacobs MD - 07/06/2024 2:34 PM CDT [facility] PM&R Progress Note () Patient: Krunal Salter Date of service: 07/06/2024 Diagnosis: weakness SUBJECTIVE: Slept 7 hours Variable continence-low PVRs AFOs here Chose to sleep with TLSO-discussed possible splint for L wrist pros/cons-also discussed with plastics- see below Some nausea States ok to speak with his mother excpet for private things . OBJECTIVE: Filed Vitals: 07/05/24 0640 07/05/24 1619 07/05/24201107/06/24 0604 BP: 104/63 127/71 118/50 122/60 Pulse: 72 94 90 93 Resp: 17 Temp: 98 ??F (36.7 ??C) 98 ??F (36.7 ??C) 97.5 ??F (36.4 ??C) 98.1 ??F (36.7 ??C) TempSrc: Oral Oral Oral Oral SpO2: 98% 98% 97% 97% Weight: Height: Estimated body mass index is 21.95 kg/m?? as calculated from the following: Height as of this encounter: 6' 1 (1.854 m). Weight as of this encounter: 75.5 kg (166 lb 6.4 oz). Gen: alert,interactive, NAD-sitting in wheelchair Respiratory: Lungs clear bilaterally CV: Regular rate and rhythm Abd:wearing TLSO Extremities: no edema ,erythema-wearing AFOs Neuromuscular: up with max assist-working with JOSE DANIEL walker,sliding board-per plastics no restrictions LUE Skin: intact where seen Data: Current Facility-Administered Medications Medication Dose Route Frequency acetaminophen (TYLENOL) tablet 650 mg 650 mg Oral Q6H PRN ALBUterol sulfate HFA inhaler 2 Puff 2 Puff Inhalation Q4H PRN polyethylene glycol (MIRALAX) oral powder 17 g 17 g Oral Daily And bisacodyl (DULCOLAX) rectal suppository 10 mg 10 mg Rectal DAILY PRN cyclobenzaprine (FLEXERIL) tablet 5-10 mg 5-10 mg Oral TID PRN diazePAM (VALIUM) tablet 2.5 mg 2.5 mg Oral Q6H PRN diazePAM (VALIUM) tablet 2.5 mg 2.5 mg Oral Q6H PRN enoxaparin (LOVENOX) prefilled syringe 40 mg 40 mg Subcutaneous 2000 famotidine (PEPCID) tablet 20 mg 20 mg Oral BID FLUoxetine (PROZAC) capsule 20 mg 20 mg Oral Daily [START ON 07/10/2024] fluticasone propionate (FLONASE) 50 MCG/ACT nasal spray 1 [place] 1 [place] See Admin Instructions Weekly gabapentin (NEURONTIN) capsule 900 mg 900 mg Oral TID ibuprofen (MOTRIN) tablet 400 mg 400 mg Oral Q6H PRN lidocaine (UROJET) 2 % gel prefilled syringe Urethral PRN with procedures loratadine (CLARITIN) tablet 10 mg 10 mg Oral BID melatonin tablet 6 mg 6 mg Oral At bedtime PRN metoclopramide (REGLAN) tablet 5 mg 5 mg Oral TID before meals ondansetron (ZOFRAN) tablet 4 mg 4 mg Oral Q8H PRN oxyCODONE (ROXICODONE) immediate release tablet 5 mg 5 mg Oral BID PRN pantoprazole DR (PROTONIX) tablet 40 mg 40 mg Oral BID before meals sennosides-docusate sodium (SENOKOT S) 8.6-50 MG per tablet 1 Tablet 1 Tablet Oral Daily traZODone (DESYREL) tablet 50 mg 50 mg Oral At bedtime PRN Allergies Allergen Reactions Other Other, see comments HAS AN ALLERGY TO SOME KIND OF SUGAR HAVING TESTING TO DETERMINE TYPE ADLs MOBILITY COGNITION Category Initial IRF-TIFFANIE Current IRF-TIFFANIE Category Initial IRF-TIFFANIE Current IRF- TIFFANIE Category Initial IRF-TIFFANIE Current IRF-TIFFANIE Eating 5: Setup/clean up assistance - prior and/or following activity 5: Setup/clean up assistance - prior and/or following activity Sit to Stand 88: Not attempted due to medical condition or safety concerns 88: Not attempted due to medical condition or safety concerns Comprehension 4: Has clear comprehension without cues or repetition 4: Has clear comprehension without cues or repetition Shower/Bathe Self 3: Partial/mod assist - helper does <50% 3: Partial/mod assist - helper does <50% Chair/Bed to Chair Transfer 1: Dependent - [place] does ALL effort/assistance of 2 (per chart review) 2: Substantial/max assist - [place] does >50% Expression 4: expresses complex messages without difficulty 4: expresses complex messages without difficulty UB Dressing 2: Substantial/max assist - [place] does >50% 2: Substantial/max assist - [place] does>50% Car Transfer 2: Substantial/max assist - [place] does >50% 2: Substantial/max assist - [place] does >50% Attention 4: concentrate without difficulty regardless of setting, can alternate attention independently 4: concentrate without difficulty regardless of setting, can alternate attention independently LB Dressing 1: Dependent - [place] does ALL effort/assistance of 2 3: Partial/mod assist - [place] does <50% Toilet Transfers 2: Substantial/max assist - [place] does >50% 2: Substantial/max assist - [place] does >50% Problem-Solving 4: solves complex, multi-step or abstract problems without difficulty or assist 4: solves complex, multi-step or abstract problems without difficulty or assist Valentin/Doff Footwear 1: Dependent - [place] does ALL effort/assistance of 2 3: Partial/mod assist - [place] does <50% Walk 10 feet 88: Not attempted due to medical condition or safety concerns 88: Notattempted due to medical condition or safety concerns Memory 4: recalls novel info., completes tasks independently with/without aide 4: recalls novel info., completes tasks independently with/withoutaide Toileting Hygiene 1: Dependent - [place] does ALL effort/assistance of 2 1: Dependent - [place] does ALL effort/assistance of 2 Walk 50 feet with two turns Bladder Intervention Assistance 2: Substantial/max assist - [place] does >50% 2: Substantial/max assist - [place] does >50% Walk 150 feet Bladder Continence 4: Always incontinent 4: Always incontinent Wheel 50 feet with 2 turns 2: Substantial/max assist - [place] does >50% 3: Partial/mod assist - [place] does <50% Bowel Intervention Assistance Wheel 150 feet 2: Substantial/max assist - [place] does >50% 3: Partial/mod assist - [place] does <50% Bowel Continence 2: Frequently incontinent (2 or more episodes of bowel incontinence, but at lease one continent bowel movement) 2: Frequently incontinent (2 or more episodes of bowel incontinence, but at lease one continent bowel movement) 4 Steps with 1 rail 88: Not attempted due to medical condition or safety concerns 88: Not attempted due to medical condition or safety concerns 12 Steps with 1 rail 88: Not attempted due to medical condition or safety concerns 88: Not attempted due to medical condition or safety concerns 1 Step up & down (curb) 88: Not attempted due to medical condition or safety concerns 88: Not attempted due to medical condition or safety concerns Therapy Information: PT Session 1 Beginning Time: 0930 (07/06/2024) PT Session 1 Ending Time: 1000 (07/06/2024) PT Session 1 Total Minutes: 30 minutes (07/06/2024) PT Session 2 Beginning Time: 1330 (07/06/2024) PT Session 2 Ending Time: 1430 (07/06/2024) PT Session 2 Total Minutes: 60 minutes (07/06/2024) OT Session 1 Beginning Time: 1030 (07/06/2024) OT Session 1 Ending Time: 1130 (07/06/2024) OT Session 1 Total Minutes: 60 minutes (07/06/2024) OT Session 2 Beginning Time: 1430 (07/06/2024) OT Session 2 Ending Time: 1500 (07/06/2024) OT Session 2 Total Minutes: 30 minutes (07/06/2024) Stool/Bowel: Patient Vitals for the past 120 hrs: Stool Amount 07/06/24 1244 Large 07/06/24 1200 Large 07/04/24 2200 Large Patient Vitals for the past 120 hrs: Stool Color 07/06/24 1244 brown 07/06/24 1200 brown 07/04/24 2200 brown Patient Vitals for the past 120 hrs: Stool Consistency 07/06/24 1244 soft 07/06/24 1200 soft 07/04/24 2200 soft;formed Bladder Scan: Patient Vitals for the past 24 hrs: Bladder Scan (mL) (Not in Output) 07/06/24 1200 250 Scanned mL 07/05/24 194 568 Scanned mL Post-void Residual: Patient Vitals for the past 24 hrs: Post Void Residual Scan (mL) (Not in Output) 07/05/242002 499 Scanned mL Labs: No results found for this or any previous visit (from the past 24 hours). ASSESSMENT / PLAN: 24-year-old male with history of Klinefelter syndrome, unspecified Kamari- Danlos, chronic pain, bilateral hip dysplasia and labral tear, recurrent peroneal tendon subluxation, status post right lowerextremity surgery, history of left wrist surgery, history of pectus excavatum surgery, recent percutaneous gastrostomy, and possible POTS and gastroparesis, now with dependence in mobility, dependence in self cares and significant debilitation, admitted for intensive inpatient rehabilitation. 1. 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 Recent surgery in April with Dr. Van to repair dislocation of perineal tendons with fibulargroove deepening and longus to brevis tendinosis. Per Dr. Van's note 07/04 will require bilateral lower extremity custom short articulated AFOs, has been molded for these, [employer] to fabricate them to help provide support for his ankles as he is mobilized.07/06 has AFOs 3. Back pain. Does have a TLSO for stabilization, not required neurologically but used for pain. 4. History of neurogenic bladder with urinary retention, not noting urinary retention here. He is having variable urinary incontinence/using urinal and using briefs. We will monitor bladder scans andcatheterize as needed. Urine culture negative.thus far low PVRs although ? Hx retention 5. Neurogenic bowel. Daily bowel program. 07/06-will do formal bowel program 6. Questionable history of POTS versus syncope. Evaluation all negative. Outpatient 30-day event monitor. 7. Chronic pain syndrome, followed by Pain here. Medications as noted above. Minimize narcotics, asable TLSO as needed. Reconsult Plastic Surgery regarding left wrist recommendations.see below 8. History of malnutrition. GJ changed for a Mode. We will have dietitian follow and make recommendations. He is on a regular diet. 9. History of anal fissure with bleeding noted on 06/23, no recurrence. We would recommend stool softener to prevent rebleeding. 10. Gastroesophageal reflux disease. Be aware of NSAID use. Continued PPI twice daily. Maalox p.r.n. Does use both Reglan and Zofran as needed. 11. History of anxiety/depression. Continue fluoxetine 20 mg daily. Rehab Psych to follow up. 12. Dependence in mobility. Three times daily physical therapy. 13. Dependence in self cares, 3 times daily occupational therapy and rehab nursing.Will need to wrkon strategies for tube feeding,self care in order to return home 14. DVT prophylaxis. He is on enoxaparin until mobilizing further. 15. Code status, full. 16. Therapeutic Rec t- leisure skills and community reintegration. 17. Rehab Psych t-adjustment to disability. 18. Pressure ulcer risk assessment. He does not have known peripheral vascular arterial disease, diabetes, or any of its complications, impaired cognition, or communication deficits or major fractures as risk factors for pressure ulcers. He does have variably impaired sensation, splints, orthoses, and impaired mobility as risk factors for pressure ulcers. 19. Clinically significant medication issues. No potential clinically significant medication issuesnoted on admission. Continue to monitor. 20. Discharge planning. Social Work to work with patient and mother. We will need to determine whether he can return to mother's home with accessibility issues or look at other options. Estimated length of stay 07/24/24 pending further evaluation. Rehab prognosis fair to good.Lives in [place] hassome RELIEF MATE hours -will likely need more- through [facility]- some programming through [facility].If unable to return home in timely manner may need TCU 21. Diet, regular. 22 LUE pain-per plastics-Per prior hand surgery team consultation notes - patient does not meet indications for casting and could lead to increased harm including permanent finger stiffness and loss of function. Furthermore, a removal wrist brace would adequately mobilize the left wrist/hand and help treat any sort of inflammation along with NSAIDs. We have asked our OT colleagues to work with the patient to obtain a splint that would meet his needs and for guidance from their expertise. Per the OT note on 07/04, concern that splinting would continue to cause MCP stiffness/soreness given this will not offload weight bearing through the MCPs during transfers. The plan was for OT to work with the PT team and the patient to minimize weightbearing through the MCPs and to create a left edema glove for cushion/compression. Order placed for OT Tuesday 55 minutes spent by me on the date of service doing chart review,history,exam,coordination of care , documentation and furthur activites per the note including team rounds,observation in therapy,individual plan of care Please also see individual plan of care this date. Nithya Jacobs MD 07/06/2024, 2:34 PM Physical Medicine and Rehabilitation * Nithya Jacobs MD - 07/05/2024 10:06 PM CDT [facility] PM&R Progress Note () Patient: Krunal Salter Date of service: 07/05/2024 Diagnosis: weakness SUBJECTIVE: slept 7 hours per nursing'chooses to wear TLSO for comfort- discussed it is for his comfort Tilges making AFOs Variable continence but voiding good amounts frequently'trying both squat pivot and sliding board transfers . OBJECTIVE: Filed Vitals: 07/04/24 1600 07/05/24 0640 07/05/24 1619 07/05/242011 BP: 104/63 127/71 118/50 Pulse: 72 94 90 Resp: 16 16 17 Temp: 98 ??F (36.7 ??C) 98 ??F (36.7 ??C) 97.5 ??F (36.4 ??C) TempSrc: Oral Oral Oral SpO2: 98% 98% 97% Weight: 75.5 kg (166 lb 6.4 oz) Height: 6' 1 (1.854 m) Estimated body mass index is 21.95 kg/m?? as calculated from the following: Height as of this encounter: 6' 1 (1.854 m). Weight as of this encounter: 75.5 kg (166 lb 6.4 oz). Gen: alert,interactive, NAD Respiratory: Lungs clear bilaterally CV: Regular rate and rhythm Abd: Abdomen soft, nondistended, nontender-applying TLSO Extremities: no edema ,erythema Neuromuscular: up with max assist Skin: intact where seen Data: Current Facility-Administered Medications Medication Dose Route Frequency acetaminophen (TYLENOL) tablet 650 mg 650 mg Oral Q6H PRN ALBUterol sulfate HFA inhaler 2 Puff 2 Puff Inhalation Q4H PRN polyethylene glycol (MIRALAX) oral powder 17 g 17 g Oral Daily And bisacodyl (DULCOLAX) rectal suppository 10 mg 10 mg Rectal DAILY PRN cyclobenzaprine (FLEXERIL) tablet 5-10 mg 5-10 mg Oral TID PRN diazePAM (VALIUM) tablet 2.5 mg 2.5 mg Oral Q6H PRN diazePAM (VALIUM) tablet 2.5 mg 2.5 mg Oral Q6H PRN enoxaparin (LOVENOX) prefilled syringe 40 mg 40 mg Subcutaneous 2000 famotidine (PEPCID) tablet 20 mg 20 mg Oral BID FLUoxetine (PROZAC) capsule 20 mg 20 mg Oral Daily [START ON 07/10/2024] fluticasone propionate (FLONASE) 50 MCG/ACT nasal spray 1 [place] 1 [place] See Admin Instructions Weekly gabapentin (NEURONTIN) capsule 900 mg 900 mg Oral TID ibuprofen (MOTRIN) tablet 400 mg 400 mg Oral Q6H PRN lidocaine (UROJET) 2 % gel prefilled syringe Urethral PRN with procedures loratadine (CLARITIN) tablet 10 mg 10 mg Oral BID melatonin tablet 6 mg 6 mg Oral At bedtime PRN metoclopramide (REGLAN) tablet 5 mg 5 mg Oral TID before meals ondansetron (ZOFRAN) tablet 4 mg 4 mg Oral Q8H PRN oxyCODONE (ROXICODONE) immediate release tablet 5 mg 5 mg Oral BID PRN pantoprazole DR (PROTONIX) tablet 40 mg 40 mg Oral BID before meals sennosides-docusate sodium (SENOKOT S) 8.6-50 MG per tablet 1 Tablet 1 Tablet Oral Daily traZODone (DESYREL) tablet 50 mg 50 mg Oral At bedtime PRN Allergies Allergen Reactions Other Other, see comments HAS AN ALLERGY TO SOME KIND OF SUGAR HAVING TESTING TO DETERMINE TYPE ADLs MOBILITY COGNITION Category Initial IRF-TIFFANIE Current IRF-TIFFANIE Category Initial IRF-TIFFANIE Current IRF- TIFFANIE Category Initial IRF-TIFFANIE Current IRF-TIFFANIE Eating 5: Setup/clean up assistance - prior and/or following activity 5: Setup/clean up assistance - prior and/or following activity Sit to Stand 88: Not attempted due to medical condition or safety concerns 88: Not attempted due to medical condition or safety concerns Comprehension 4: Has clear comprehension without cues or repetition 4: Has clear comprehension without cues or repetition Shower/Bathe Self 3: Partial/mod assist - helper does <50% 3: Partial/mod assist - helper does <50% Chair/Bed to Chair Transfer 1: Dependent - [place] does ALL effort/assistance of 2 (per chart review) 2: Substantial/max assist - [place] does >50% Expression 4: expresses complex messages without difficulty 4: expresses complex messages without difficulty UB Dressing 2: Substantial/max assist - [place] does >50% 2: Substantial/max assist - [place] does>50% Car Transfer 2: Substantial/max assist - [place] does >50% 2: Substantial/max assist - [place] does >50% Attention 4: concentrate without difficulty regardless of setting, can alternate attention independently 4: concentrate without difficulty regardless of setting, can alternate attention independently LB Dressing 1: Dependent - [place] does ALL effort/assistance of 2 1: Dependent - [place] does ALL effort/assistance of 2 Toilet Transfers 2: Substantial/max assist - [place] does >50% 2: Substantial/max assist - [place] does >50% Problem- Solving 4: solves complex, multi-step or abstract problemswithout difficulty or assist 4: solves complex, multi-step or abstract problems without difficulty or assist Valentin/Doff Footwear 1: Dependent - [place] does ALL effort/assistance of 2 1: Dependent - [place] doesALL effort/assistance of 2 Walk 10 feet 88: Not attempted due to medical condition or safety concerns 88: Not attempted due to medical condition or safety concerns Memory 4: recalls novel info., completes tasks independently with/without aide 4: recalls novel info., completes tasks independently with/without aide Toileting Hygiene 1: Dependent - [place] does ALL effort/assistance of 2 1: Dependent - [place] does ALL effort/assistance of 2 Walk 50 feet with two turns Bladder Intervention Assistance Walk 150 feet Bladder Continence 4: Always incontinent 4: Always incontinent Wheel 50 feet with 2 turns 2: Substantial/max assist - [place] does >50% 2: Substantial/max assist - [place] does >50% Bowel Intervention Assistance Wheel 150 feet 2: Substantial/max assist - [place] does >50% 2: Substantial/max assist - [place] does >50% Bowel Continence 2: Frequently incontinent (2 or more episodes of bowel incontinence, but at lease one continent bowel movement) 2: Frequently incontinent (2 or more episodes of bowel incontinence, but at lease one continent bowel movement) 4 Steps with 1 rail 88: Not attempted due to medical condition or safety concerns 88: Not attempted due to medical condition or safety concerns 12 Steps with 1 rail 88: Not attempted due to medical condition or safety concerns 88: Not attempted due to medical condition or safety concerns 1 Step up & down (curb) 88: Not attempted due to medical condition or safety concerns 88: Not attempted due to medical condition or safety concerns Therapy Information: PT Session 1 Beginning Time: 829 (07/05/2024) PT Session 1 Ending Time: 929 (07/05/2024) PT Session 1 Total Minutes: 60 minutes (07/05/2024) PT Session 2 Beginning Time: 1530 (07/05/2024) PT Session 2 Ending Time: 1600 (07/05/2024) PT Session 2 Total Minutes: 30 minutes (07/05/2024) OT Session 1 Beginning Time: 0930 (07/05/2024) OT Session 1 Ending Time: 1045 (07/05/2024) OT Session 1 Total Minutes: 75 minutes (07/05/2024) OT Session 2 Beginning Time: 1430 (07/05/2024) OT Session 2 Ending Time: 1500 (07/05/2024) OT Session 2 Total Minutes: 30 minutes (07/05/2024) Stool/Bowel: Patient Vitals for the past 120 hrs: Stool Amount 07/04/240 Large Patient Vitals for the past 120 hrs: Stool Color 07/04/240 brown Patient Vitals for the past 120 hrs: Stool Consistency 07/04/240 soft;formed Bladder Scan: Patient Vitals for the past 24 hrs: Bladder Scan (mL) (Not in Output) 07/05/241941 568 Scanned mL Post-void Residual: Patient Vitals for the past 24 hrs: Post Void Residual Scan (mL) (Not in Output) 07/05/242002 499 Scanned mL Labs: No results found for this or any previous visit (from the past 24 hours). ASSESSMENT / PLAN: 24-year-old male with history of Klinefelter syndrome, unspecified Kamari- Danlos, chronic pain, bilateral hip dysplasia and labral tear, recurrent peroneal tendon subluxation, status post right lowerextremity surgery, history of left wrist surgery, history of pectus excavatum surgery, recent percutaneous gastrostomy, and possible POTS and gastroparesis, now with dependence in mobility, dependence in self cares and significant debilitation, admitted for intensive inpatient rehabilitation. 1. 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 Nonweightbearing, left upper extremity. 2. Recent surgery in April with Dr. Van to repair dislocation of perineal tendons with fibulargroove deepening and longus to brevis tendinosis. Per Dr. Van's note 07/04 will require bilateral lower extremity custom short articulated AFOs, has been molded for these, [employer] to fabricate them to help provide support for his ankles as he is mobilized. 3. Back pain. Does have a TLSO for stabilization, not required neurologically but used for pain. 4. History of neurogenic bladder with urinary retention, not noting urinary retention here. He is having variable urinary incontinence/using urinal and using briefs. We will monitor bladder scans andcatheterize as needed. Urine culture negative. 5. Neurogenic bowel. Daily bowel program. 07/05 6. Questionable history of POTS versus syncope. Evaluation all negative. Outpatient 30-day event monitor. 7. Chronic pain syndrome, followed by Pain here. Medications as noted above. Minimize narcotics, asable TLSO as needed. Reconsult Plastic Surgery regarding left wrist recommendations. 8. History of malnutrition. GJ changed for a Mode. We will have dietitian follow and make recommendations. He is on a regular diet. 9. History of anal fissure with bleeding noted on 06/23, no recurrence. We would recommend stool softener to prevent rebleeding. 10. Gastroesophageal reflux disease. Be aware of NSAID use. Continued PPI twice daily. Maalox p.r.n. Does use both Reglan and Zofran as needed. 11. History of anxiety/depression. Continue fluoxetine 20 mg daily. Rehab Psych to follow up. 12. Dependence in mobility. Three times daily physical therapy. 13. Dependence in self cares, 3 times daily occupational therapy and rehab nursing. 14. DVT prophylaxis. He is on enoxaparin until mobilizing further. 15. Code status, full. 16. Therapeutic Rec t- leisure skills and community reintegration. 17. Rehab Psych t-adjustment to disability. 18. Pressure ulcer risk assessment. He does not have known peripheral vascular arterial disease, diabetes, or any of its complications, impaired cognition, or communication deficits or major fractures as risk factors for pressure ulcers. He does have variably impaired sensation, splints, orthoses, and impaired mobility as risk factors for pressure ulcers. 19. Clinically significant medication issues. No potential clinically significant medication issuesnoted on admission. Continue to monitor. 20. Discharge planning. Social Work to work with patient and mother. We will need to determine whether he can return to mother's home with accessibility issues or look at other options. Estimated length of stay 10 to 15 days pending further evaluation. Rehab prognosis fair to good.Lives in [place] has some RELIEF MATE hours -will likely need more- through [facility]- some programming through [facility].If unable to return home in timely manner may need TCU 21. Diet, regular. 35 minutes spent by me on the date of service doing chart review,history,exam,coordination of care , documentation and furthur activites per the note. Nithya Jacbos MD 07/05/2024, 10:06 PM Physical Medicine and Rehabilitation * Yue Martinez, RN - 07/05/2024 8:55 PM CDT [facility] Plan of Care Note Assessment: Safety & Comfort Plan: Continue POC Subjective: My symptoms get worse the longer I am up Objective: Assumed cares [id number]. Pt A&OX4. Pain this afternoon in lower extremities- burning & sharp nerve pain. Pt reported initial PRN valium was insufficient, but flexeril & gabapentin helped later. PRN Zofran given prior to lunch for nausea. Ate 75-100% of meals. Was voiding frequently in urinal for most of the day w/ volumes 300-500mL. Had incontinence after dinner. PEG site C/D/I & patent. TF running per order. Pt preferring to wear TLSO in bed for comfort. Calls appropriately. * Dhara Culp RN - 07/05/2024 7:08 AM CDT [facility] Plan of Care Note Assessment: comfort and safety Plan: continue Rehab POC Subjective: I dont have pain Objective: Pt is A&O x 4, calm and cooperative, denies pain, chest discomfort, dizziness, N&V. Peg tube patent and dressing intact, TF Compleat 1.4 124ml/hr with 120ml q3 H20 flush until 0600am ( timing per pt request) Take pills whole w/ water. Incontinent bladder x 1, bladder scanned forretention 118 ml . Absent sensation BLE wearing prevalon boots HS. Last Bm 07/04/24. Call light w/ in reach. Bed alarm for safety. Needs attended. Slept good for approx 7 hrs. BP 104/63 Pulse 72 Temp 98 ??F (36.7 ??C) (Oral) Resp 16 Ht 6' 1 (1.854 m) Wt 75.5 kg (166 lb 6.4 oz) SpO2 98% BMI 21.95 kg/m?? * Shahida Pichardo RN - 07/05/2024 12:14 AM CDT [facility] Plan of Care Note Assessment: Rehab Plan: Continue POC Subjective/Objective: A&Ox4. C/o headache tolerable w/ prn APAP. Denied SOB, dizziness. Complained of nausea when eating, tolerable w/ reglan. Ax1-2 pivot. TLSO for comfort. PEG intact and patent, TF overnight. Patient able to direct cares very well. documented in this encounter Consult Notes * Ann-Marie Mcmahan, PhD, LP - 07/09/2024 8:00 AM CDT [facility] Psychologist Initial Diagnostic Interview Date and time: 07/09/2024 08:08 am- 08:59 am Sources of information: Medical chart reviewed, patient interview Reason for Referral: Krunal Salter is a 24 y.o. old male referred by his PM&R provider, Dr. Jacobs, for evaluation and treatment of adjustment to weakness. Informed Consent and Confidentiality: This rewriter's credentials and therapeutic style were discussed with the Krunal. The purpose of the evaluation and subsequent counseling sessions were reviewed. Issues of confidentiality and its limitations were clearly addressed. Krunal expressed understanding ofthese issues and provided informed consent to proceed. Mental Status: Krunal was seen in his room, laying in bed, and was polite and cooperative throughoutthe session, somewhat guarded. He was casually groomed. He was oriented to all spheres. Eye contactwas well maintained. Speech was of regular rate, rhythm, and volume. See MD, PT, OT notes for detailed motor exam. He maintained his attention and concentration well. His affect was consistent with mood. Mood was described as okay, feels restless, stuck. Thought processes were linear and goal-directed. Insight was adequate and judgment was adequate. He denied current or past ideation, intent, or plan for harm to self and cited protective factors. Decision-making capacity: Understood his condition, appreciated need for treatment and voiced reasons why he was choosing to participate. Presenting concerns: Krunal spent time discussing what led to his hospitalization including previousdiagnoses and treatments within the last 3-4 years. He reports pain and bladder/bowel as main areasof concern. He reports his current situation has resulted in weakness, numbness in his lower limbs, and pain if he is upright for over 2 hours. Lethality: Low Related medical history: Patient s medical chart reviewed. The following is taken from the H&P completed by PM&R provider, Dr. Jacobs on 07/05/2024 after Krunal was admitted to [facility] inpatient rehab unit. HISTORY OF PRESENT ILLNESS: Mr. Salter is a 24-year-old male followed primarily through [facility] and somewhat through [facility]. He has history of genetically- proven Klinefelter syndrome, hypermobility syndrome, connective tissue disorder/unspecified Kamari-Danlos, chronic pain, bilateral hip dyspl ann/impingement/labral tears, recurrent peroneal tendon subluxation, status post right lower extremity surgery, status post left wrist injury and surgery, history of pectus excavatum surgery, history of percutaneous gastrostomy spring, possible POTS and gastroparesis. He was admitted to [facility] on 06/19/2024 with complaints of falls, weakness, and malaise. He felt he had been getting weaker in the last few weeks. He had undergone several orthopedic procedures and had falls. He has neurogenic bladder, had been straight cathing, and follows with Urology at [facility]. Urine cultures at [facility] had shown Carmen, treated with fluconazole, then on 06/14 E coli with some resistance. He had been prescribed Bactrim but had not started taking it. Cystoscopy at [facility] in Urology on 06/18 showed erythematous patches with presenting diagnosis of cystitis. He notes that he had become weaker, had a number of falls to the point that he was taking the assist of 2 for him to perform his ADLs. Additionally, his mother was having surgery and was unable to beavailable to help with his cares. He had placement of a percutaneous gastrostomy to provide additional nutrition. He was also having difficulty tolerating the volume of feeds at 125 mL/h given nausea. In the emergency room, CT of the head, CT of the cervical, thoracic, and lumbar spine showed no acute fractures. Labs were reassuring. Urinalysis was negative. He subsequently had full workup of his weakness including a full spine MRI which shows no acute issues or obvious spinal cord impingement or stability. 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 Note, given his hypermobility syndrome he had a history of [place] collar. He had been prescribed anew TLSO, but it has not been fabricated given the fact that he was having a feeding tube placed. He subsequently now does have spinal stabilization device which he can wear for comfort, it is not needed neurologically. He has been seen by Urology. They have discussed multiple options for bladder management. He has continued on intermittent catheterization at this point. He had complaints of left wrist pain. He has history of left hand fusion with limited range. MRI demonstrated tendinitis but no fracture or evidence of tendon rupture. Most recent plastic surgery note indicates the patient wanted a left hand arm ulnar gutter cast, as he stated removable braces and custom OT splints had not worked for him. He felt that only a cast would be durable enough. He declined wanting removable braces, was open to a custom hand splint, but stated it might not benefit him.At that point, they were going to discuss with staff and hand OT to see how best to manage this wason 07/01. Initially, casting was not recommended in the acute setting of MRI showing tenosynovitis in case of infection. We will ask Plastics to comment again. Note some history of possible loss of consciousness/syncope. EKG showed no obvious arrhythmia. Echoshowed no issues with valves or ejection fraction. There was some question of dehydration, althoughlabs were all normal. He will have 30- day event monitor after discharge from rehab. He also has longstanding history of chronic pain syndrome. He had acute pain exacerbation. He has been seen by Pain and Neurology at [facility] as well as at [facility]. He was initially on both IV Dilaudid aswell as oxycodone. He did try Butrans patch which made pain worse. He is now on low-dose p.r.n. oxycodone, low-dose p.r.n. Valium. He is on scheduled gabapentin, p.r.n. Flexeril. He also has p.r.n. Tylenol and NSAIDs. He does have a TLSO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 name/contact information: per pt initiation Earliest date available: 07/13/24 Earliest time facility/home will accept the patient: 1000 Does patient have access to residence?: Yes Number of Stairs, Entrance: 2 Number of Stairs Within Home: None Contacts: Emergency Contacts Strategic Development Manager (Rel.) Home Phone Work Phone Mobile Phone June Reinoso (Mother) -- -- [phone] pt,declined -- -- -- Collateral Contacts: Business Enterprise Officer Business Enterprise Officer Name: ALMA Macdonald Complex Care Business Enterprise Officer Other Contact Name: [facility] [employer] Reclamation Engineer Other Contact Insurance: [facility] Primary Care: PCP: Eliana Guerra MD Location: External Location([facility]) Confirmed with patient/artists' booking representative PCP on file is accurate: Yes PCP/clinic follow-up indicated?: Yes Hospital Avoidable Night(s) applicable/charted: No Readmission Risk: 12.9 Predictive Model Details 15 (Low) Factor Value Calculated 07/12/2024 08:04 22% Number of appointments in last 90 days 26 Risk of Unplanned Readmission Model 13% Number of active outpatient medication orders 22 10% Henrry score 18 5% Antirheumatics administration present 3% Latest BUN in last 72 hrs not present 3% Latest RDW in last 72 hrs not present 3% Antipsychotics administration not present 2% Latest RBC count in last 72 hrs not abnormal (not present) 2% Patient age [age] years old 2% Relationship status single 2% Latest creatinine in last 72 hrs not present 2% Diagnosis of fluid or electrolyte disorder not present 2% Legal sex male 2% Beta blockers administration not present 2% Active outpatient ulcer drug Rx present Interventions: Interventions (I-Z): Setting patient/family expectations Care Management Updates: ABNER reviewed Krunal's chart and discussed with interdisciplinary team during care connections. Per team reports, Krunal is medically cleared for discharge to home today via pt's self-initiated transportation. ABNER spoke with Care Manaegment Leadership (Lillian Spears/Guerline Mcneal), HP Risk (Ramon Guerrero), and HP Legal (Ginger Castro) re: pt's request for rehab team/provider call with Kylah Nayak ([phone])- Probation, federal court commissioner. ABNER met with Krunal at bedside in review of CM/SW role and discharge planning. Krunal agrees with DC plan and provided additional consents for SW f/u. Consent forms have been signed by Krunal for recordsrelease to Kylah, and pt's community CM (Josue), as well as consent for verbal disclosure of Doug Montero by HP staff ([facility] staff and Dr Riojas). SW f/u call to Kylah in which SW confirmed pt d/c today, no current need for TF, participation in rehab team, and need for provider to confirm additional inquiry r/t pt being able to travel to [place] this summer. Message sent to Dr Riojas re: information known above with request for his consideration of f/u call to Kylah additionally. f/u call to [facility] re: pt d/c home with no additional orders for TF at home due to pt oral intake. [facility] stating continued need for orders. Provider and RD reports shared and ordersfaxed. OF note (shared with [facility] due to RN discord in relay of info): Pt wishes to continue TF despite 100% oral intake and meeting calorie needs by mouth. Per RD & MD in [facility], no continue TF is medically necessary at this time and pt was advised of option to discuss further with PCP/GI, per pt request to continue TF at home. f/u call to Josue, per pt request. [facility] re: d/c today and of ERASMO submitted to HIM for records ovidio shared with Josue additionally. No additional CM/SW needs at this time. Please consult CM/SW should any additional needs arise. RIVAS Porter * Plan of Care - Shagufta Strauss RN - 07/13/2024 9:27 AM CDT [facility] Discharge Note - Nursing Admission Date/Time: 07/04/2024 2:51 PM Attending MD: Nithya Jacobs MD Patient discharged: to Home. Discharge Date: 07/13/2024 Discharge Time: 10.25 AM Patient accompanied by: relative. Transported by: Wheelchair Valuables were taken home by patient: Yes Discharge instructions given and explained to patient: Yes Discharge Patient Education Plan completed, taught, and provided to patient/caregiver at discharge:Yes Discussed medication risks with patient Patient understands medications usage and side effects Patient understands diagnosis Action Plan for management of symptoms/side effects/complications requiring medical attention established and shared with patient/caregiver Was patient discharged on Warfarin? {(Do not delete line; Warfarin documentation is required) No Patients general condition on discharge: Pt alert and oriented x4,PEG tube site cares done. Pt ate 100% of the breakfast ordered. Pt independent with bowel program. Pt in stable condition. TLSO for comfort. Pt belongings, meds and discharge instructions given to the patient. All medical devices (telemetry/IV/etc) unless otherwise ordered, have been removed and stored: Yes --- End of Report --- * Plan of Care - Beata Humphrey RN - 07/12/2024 7:48 PM CDT [facility] Plan of Care Note Assessment: Rehab Plan: continue with plan of care Subjective: Objective: pt is A&Ox4, denied pain, up ad valeria in the room. Pills whole with thins, PEG tube intact and running for NOC TF, am BM program is completed independently, able making his needs known. * Plan of Care - Maame Woody LSW - 07/12/2024 4:28 PM CDT [facility] Care Management Follow Up Note PLAN Expected Discharge Date/Time: 07/13/24 11:00 AM Anticipated Discharge Plan: TBD, pending therapy assessment and discharge planning Insurance: BCBS MEDICAID REPLACEMENT/BCBS PMAP Contacts: Emergency Contacts Strategic Development Manager (Rel.) Home Phone Work Phone Mobile Phone June Reinoso (Mother) -- -- [phone] pt,declined -- -- -- Collateral Contacts: Business Enterprise Officer Business Enterprise Officer Name: ALMA Macdonald Complex Care Business Enterprise Officer Other Contact Name: [facility] [employer] Reclamation Engineer Other Contact Primary Care: PCP: Eliana Guerra MD Location: External Location([facility]) Confirmed with patient/family/legal artists' booking representative PCP on file is accurate: Yes Functional Screen (PRIOR TO ADMISSION): Baseline Ambulation: Community ambulator (>1200 ft) Bed to chair transfer: 4-->None (independent) Climbing 3-5 stair with railin-->None (independent) Eating meals: 4-->None (independent) Toileting (includes using toilet, bedpan or urinal): 4-->None (independent) Bathing (including washing, rinsing, drying): 4-->None (independent) Medication Management: None (independent) Meal Preparation: None (independent) Household Management/Laundry: None (independent) Money Management: None (independent) Transportation: Drives Independently, Relies on family/friends 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 Per provider reports, Krunal continues to benefit from acute rehab care and is not yet medically cleared for discharge. Team reports pt preference for d/c home 07/13/24 and team support of pt d/c home with resumption of previous supports. ABNER f/u with CM leadership, HP risk connect, and with pt's 'LORIN'Kylah. ERASMO completed by ABNER with pt as well as by Kylah with pt (previously submitted to HIM per Kylah's reports. Call to Kylah ([phone]) in discussion of limitations at this time and intent for provision of additional HP persons for her to connect with re: her request. Message to Risk re: details of request and Kylah reports and request for call to her for next steps. ABNER f/u with RD, facilitation of RD f/u with provider, and ongoing discussion re: reports that pt iseating 100% of meals and meeting nutrition needs by mouth, no TF needed at this time. See provider and RD notations. SW was advised that no orders would be provided for resumption of home TF by [facility]. Barriers to Discharge: Ongoing GOC conversations Community Resources Discussed: None at this time Referrals Made at this Time: None at this time CM/ABNER NEXT STEPS Continue collaboration with team, providers, pt/family for DC planning and best pt outcome, referral(s) PRN. F/u with pt's Josue DUNHAM, in confirmation of pt d/c planning date and benefits of resumption of community supports. SW team will continue to follow for coordination of care, discharge planning, and additional support as appropriate. RIVAS Porter * Plan of Care - Yarely Rutherford OTR/Pratima - 07/12/2024 3:20 PM CDT [facility] Occupational Therapy Inpatient Rehab Discharge Summary General Information/Recommendations: Onset of illness/injury Pertinent history of current problem Patient is a 24 year old male admitted to acute rehab on 07/04/24 for deconditioning. He has had recurrent falls that has lead to back pain. Now in a TLSO for stability and NWB LUE. Treatment indicated for pain, weakness, impaired balance, impaired communication, decreased activity tolerance, ADL skills, sensory deficits, impaired ROM, impaired coordination Planned Therapy Interventions activity tolerance training, adaptive equipment training, BADL retraining, IADL retraining, occupation/activity based interventions, ROM/therapeutic exercise, transfer/mobility retraining, strengthening exercise Date admitted to [facility] Acute Rehab 07/04/2024 Expected discharge date 07/13/2024 If discharged from hospital today, patient needs modified independence, basic ADLs of dressing, basic ADLs of grooming, basic ADLs of bathing, toilet transfers, total assist for, transportation assist Discharge Recommendations home Equipment Needs None Precautions/Limitations Existing Precautions/Restrictions: fall, bracing, weight bearing, Type of Brace: TLSO for comfort; AFO with mobility Weight-Bearing Status Weight-Bearing Status: LUE [place] NIGHAT/Stroke Assoc Resource Facilitation Home Exercise Program Wilmer Kj/FES Log-in ID Functional Status: Functional Activity Admission Performance Discharge Performance Eating Level of Sac 5: Setup/clean-up assistance - prior and/or following activity 6: Independent - no helper assist IRF-TIFFANIE Oral Hygiene Level of Sac 6: Independent - no helper assist 6: Independent - no helper assist IFR-TIFFANIE Upper Body Dressing Level of Sac 2: Substantial/max assist - [place] does >50% 6: Independent - no helper assist IFR-TIFFANIE Lower Body Dressing Level of Sac 1: Dependent - [place] does ALL effort/assistance of 2 6: Independent - no helper assist IRF-TIFFANIE Footwear Donning/doffing Level of Sac 1: Dependent - [place] does ALL effort/assistance of 2 6: Independent - no helper assist IRF-TIFFANIE Shower/bathe Self Level of Sac 3: Partial/mod assist - helper does <50% 6: Independent - no helper assist Toileting Level of Sac 1: Dependent - helper does ALL effort/assistance of 2 6: Independent - no helper assist Toilet transfer 2: Substantial/max assist - [place] does >50% 6: Independent - no helper assist Tub/Shower Transfer Level of Sac 2: Substantial/max assist - [place] does >50% 6: Independent - no helper assist Cognitive Function Status: Functional Activity Admission Performance Discharge Performance IRF-TIFFANIE Comprehension (CORE SHAPER/OT) 4: Has clear comprehension without cues or repetition 4: Has clear comprehension without cues or repetition Comprehension Compensations IRF-TIFFANIE Expression (CORE SHAPER/OT) 4: expresses complex messages without difficulty 4: expresses complex messages without difficulty Expression Compensations IRF-TIFFANIE Attention (CORE SHAPER/OT) 4: concentrate without difficulty regardless of setting, can alternate attention independently 4: concentrate without difficulty regardless of setting, can alternate attention independently Attention Compensations (CORE SHAPER/OT) IRF-TIFFANIE Memory (CORE SHAPER Primary, OT Secondary) 4: recalls novel info., completes tasks independently with/without aide 4: recalls novel info., completes tasks independently with/without aide Memory Compensations IRF-TIFFANIE Problem Solving 4: solves complex, multi-step or abstract problems without difficulty or assist 4: solves complex, multi-step or abstract problems without difficulty or assist Problem Solving Compensations Occupational Therapy Targets: ROM Dominant Hand: Right, Right Upper Extremity ROM: AROM WNL, Left Upper Extremity ROM: impaired MMT Truck Car And Bus Cleaner Strength Right Truck Car And Bus Cleaner average pounds: 97, 92, 88, Left Truck Car And Bus Cleaner average pounds: 95, 101, 86 Pinch Strength Pinch strength testin pt. Right, 3 pt. Left, 3 Pt. Pinch, RIGHT Average Pounds: 20, 3 Pt. Pinch, LEFT Average Pounds: 13 Coordination - Fine motor coordination tests Fine Motor Coordination Tests: 9 hole peg test, left hand, 9 hole peg test, right hand, Box and block test, right hand, Box and block test, left hand, 9 Hole Peg Test RIGHT Hand: Seconds: 24, 9 Hole Peg Test LEFT Hand: Seconds: 21, Box and Block Test RIGHT Hand: Blocks: 65, Box and Block Test LEFT Hand: Blocks: 66 Edema Sensation Vision Visual Baseline: wears glasses at all times Orthosis Orthosis Indications: rest, reduce inflammation, rest, reduce pain, Orthosis Location/Type: hand, Orthosis, Hand: Left: (ulnar gutter), Orthosis Training: caregiver able to don/doff, Orthosis Wear Schedule: wear as needed for pain Formal Cognitive Testing Standardized Assessment Information: pt makes improvements in LUE coordination and strength on assessments Therapy considerations: Pt makes good improvements in acute rehab OT now completing ADLS with IND. Ulnar gutter splint made for LUE due to pain- pt does not wear, declines adjustments to splint, and reports continued pain in 4/5th digits however pt with great improvements in strength/coordination on outcome measures. At this time pt is IND from level and SUP with mobility due to fluctuating balance, recommend commode chair outside of bathroom for safety as bathroom is inaccessible by if caregiver assist is not available (pt declines commode chair order through vendor and reports he may have one at home). Recommend use of tub bench (pt has at home). Recommending outpatient OT for drivers evaluation as pt has poor RLE sensation and coordination- no driving recommended prior to evaluation. Pt is ok to DC home with outpatient services. Yarely Rutherford OTR/L 07/12/2024 * Plan of Care - Karissa Santa, PT - 07/12/2024 1:30 PM CDT [facility] Physical Therapy Inpatient Rehab Discharge Summary General Information/Recommendations: Onset of illness/injury Pertinent history of current problem Patient is a 24 year old male admitted to acute rehab on 07/04/24 for deconditioning. He has had recurrent falls that has lead to back pain. Now in a TLSO for stability and NWB LUE. Treatment indicated for pain, weakness, impaired balance, gait, mobility Recommended PT for Date admitted to [facility] Acute Rehab 07/04/2024 Expected discharge date 07/13/2024 If discharged from hospital today, patient needs independent, bed mobility, transfers, supervision for, walking, stairs PT Discharge Recommendations prior living situation, if support system is able to provide recommended level of assist Equipment Given at Discharge Equipment/Vendor Status TBD (Used [employer] PADMA) Precautions/Limitations Existing Precautions/Restrictions: fall, bracing, weight bearing, Type of Brace: TLSO for comfort; AFO with mobility Weight-Bearing Status Weight-Bearing Status: LUE Home Exercise Program [employer] Kj/FES Log-in ID Functional Status: Functional Activity Admission Performance Discharge Performance IRF-TIFFANIE Rolling left and right: Level of Sac 2: Substantial/max assist - [place] does >50% 6: Independent - no helper assist IRF-TIFFANIE Lying to sitting on side of bed: Level of Sac 2: Substantial/max assist - [place] does >50% 6: Independent - no helper assist IFR-TIFFANIE Sit to Lying: Level of Sac 2: Substantial/max assist - [place] does >50% 6: Independent - no helper assist IFR-TIFFANIE Sit to Stand: Level of Sac 88: Not attempted due to medical condition or safety concerns 6: Independent - no helper assist IRF-TIFFANIE Stand to Sit: Level of Sac 88: Not attempted due to medical condition or safety concerns 6: Independent - no helper assist IRF-TIFFANIE Chair/bed to chair transfer: Level of Sac 1: Dependent - [place] does ALL effort/assistance of 2 (per chart review) 6: Independent - no helper assist IRF-TIFFANIE Car Transfer: Level of Sac 2: Substantial/max assist - [place] does >50% 6: Independent - no helper assist IRF-TIFFANIE Does the patient use a wheelchair and/or scooter? IRF-TIFFANIE Does the patient use a wheelchair and/or scooter?: Yes, IRF-TIFFANIE Wheel 50 feet with 2 turns: Level of Sac: 2: Substantial/max assist - [place] does >50%, IRF- TIFFANIE Type of wheelchair or scooter used for wheeling 50 feet withturns: Manual, IRF-TIFFANIE Wheel 150 feet: Level of Sac: 2: Substantial/max assist - [place] does >50%, IRF-TIFFANIE Type of wheelchair or scooter used for wheeling 150 feet: Manual IRF-TIFFANIE Does the patient use a wheelchair and/or scooter?: Yes, IRF-TIFFANIE Wheel 50 feet with 2 turns:Level of Sac: 6: Independent - no helper assist, IRF-TIFFANIE Type of wheelchair or scooter used for wheeling 50 feet with turns: Manual, IRF-TIFFANIE Wheel 150 feet: Level of Sac: 6: Independent - no helper assist, IRF-TIFFANIE Type of wheelchair or scooter used for wheeling 150 feet: Manual IRF-TIFFANIE Walk 10 feet: Level of Sac IRF-TIFFANIE Walk 10 feet: Level of Sac: 88: Not attempted due to medical condition or safety concerns, IRF-TIFFANIE Walk 50 feet with 2 turns: Level of Sac: 2: Substantial/max assist - [place] does >50%, IRF-TIFFANIE Walk 150 feet: Level of Sac: 4: Supervision/touch assist - verbal cues and/or touching/steadying and/or contact guard assistance, IRF-TIFFANIE Walk 10 feet on uneven surface: Level of Sac: 4: Supervision/touch assist - verbal cues and/or touching/steadying and/or contact guard assistance IRF-TIFFANIE Walk 10 feet: Level ofIndependence: 6: Independent - no helper assist, IRF-TIFFANIE Walk 50 feet with 2 turns: Level of Sac: 4: Supervision/touch assist - verbal cues and/or touching/steadying and/or contact guard assistance, IRF-TIFFANIE Walk 150 feet: Level of Sac: 4: Supervision/touch assist - verbal cues and/or touching/steadying and/or contact guard assistance, IRF-TIFFANIE Walk 10 feet on uneven surface: Level of Sac: 6: Independent - no helper assist IRF-TIFFANIE supply chain procurement manager objects from Standing: Level of Sac 88: Not attempted due to medical condition or safety concerns 6: Independent - no helper assist IRF-TIFFANIE 4 step: Level of Sac 88: Not attempted due to medical condition or safety concerns4: Supervision/touch assist - verbal cues and/or touching/steadying and/or contact guard assistance IRF-TIFFANIE 12 step: Level of Sac 88: Not attempted due to medical condition or safety concerns 4: Supervision/touch assist - verbal cues and/or touching/steadying and/or contact guard assistance IRF-TIFFANIE 1 step up & down (curb): Level of Sac 88: Not attempted due to medical condition or safety concerns 4: Supervision/touch assist - verbal cues and/or touching/steadying and/or contact guard assistance Standardized Tests and Measures: Admission Performance Discharge Performance Therapy considerations: Patient has made great progress in acute rehab. Demonstrated independence at a wheelchair level. Has been progressing walking and stairs using B AFOs and a walker. Provided a walker for home going. Recommending SBA for gait with FWW for longer distances and when on the stairs. Will continue to benefit from outpatient PT for gait training, balance, LE strength, joint stability and activity tolerance. Karissa Santa, PT 07/12/2024 * Plan of Care - Maame Woody LSW - 07/11/2024 4:25 PM CDT [facility] Care Management Follow Up Note PLAN Expected Discharge Date/Time: 07/13/24 Anticipated Discharge Plan: TBD, pending therapy assessment and discharge planning Insurance: BCBS MEDICAID REPLACEMENT/BCBS PMAP Contacts: Emergency Contacts Strategic Development Manager (Rel.) Home Phone Work Phone Mobile Phone June Reinoso (Mother) -- -- [phone] pt,declined -- -- -- Collateral Contacts: Business Enterprise Officer Business Enterprise Officer Name: ALMA Macdonald Complex Care Business Enterprise Officer Other Contact Name: [facility] [employer] Reclamation Engineer Other Contact Primary Care: PCP: Eliana Guerra MD Location: External Location([facility]) Confirmed with patient/family/legal artists' booking representative PCP on file is accurate: Yes Functional Screen (PRIOR TO ADMISSION): Baseline Ambulation: Community ambulator (>1200 ft) Bed to chair transfer: 4-->None (independent) Climbing 3-5 stair with railin-->None (independent) Eating meals: 4-->None (independent) Toileting (includes using toilet, bedpan or urinal): 4-->None (independent) Bathing (including washing, rinsing, drying): 4-->None (independent) Medication Management: None (independent) Meal Preparation: None (independent) Household Management/Laundry: None (independent) Money Management: None (independent) Transportation: Drives Independently, Relies on family/friends 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 Per provider reports, Krunal continues to benefit from acute rehab care and is not yet medically cleared for discharge. Team reports pt preference for d/c home 07/13/24 and team support of pt d/c home with resumption of previous supports. SW met with Krunal at bedside in introduction of self, SW role, and for supportive check-in. Krunal resting in bed, conversing easily during visit. Primary language is [place]. Discussion of pt's request to PT for conversation with pt's 'PO'. ERASMO completed and SW further discussion re: limitations ofrole and potential need for alternate process within [facility] systems. 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 SW in agreement with call to pt's 'PO' inconfirmation of pt's dates of stay. SW also in review of d/c planning discussions, reports of pt preferences, and supportive care in the community. Pt reports ongoing discussions with parent and Josue (ROLY) and agreement with SW f/u call to Josue to confirm DC planning and beneficial supports to pt. Pt confirms continued intent to hire RELIEF MATE/CFSS support person. Pt also requesting additional support in transitioning pt care to [facility] teams, noting [place] location close to pt. SW discussed staff role in PCP f/u (pt prefers female provider) and need for referral to care team for additional discussion of pt's other requests (rehab psych, PM&R, neuro/NS, ortho/spine, and pain clinic). IRF-TIFFANIE SW questions completed and entered into medical record. Pt shared that he has appreciated the care received at [facility], and shared that he 'just have to get out of here' noting mood variance while inpt. SW utilized active listening, normalization, and reassurance of staff roles with discussion of care options and pt/family preferences. SW f/u with provider re: pt requests and provider confirms intent to discuss with pt further, noting previous similar conversations additionally. SW call to pt's 'PO' (Kylah: [phone]) in request of further clarification of her role and SWinquiry of pt's clinic office assistant needing to request info through [facility] HIM. ABNER shared limitations of SW role as Kylah reporting her role is NOT as pt's PO but as the supervising officer to the federal court facilities operator. Kylah shared additional information for SW to bring to leadership and additional [facility]/ supports for response to court's inquiries. ABNER reported unable to share PHI/info at this time and confirmed intent to reconnect with Kylah to provide [facility] dept for her inquiries. SW f/u with leadership andkyll collaborate only as directed. Barriers to Discharge: Ongoing GOC conversations Community Resources Discussed: Outpt PT- pt reports intent to resume with previous community PT PCP (see above notation) Referrals Made at this Time: None at this time CM/SW NEXT STEPS Continue collaboration with team, providers, pt/family for DC planning and best pt outcome, referral(s) PRN. F/u with pt's Josue DUNHAM, in confirmation of pt d/c planning date and benefits of resumption of community supports F/u with appropriate dept for contact info to give to Kylah. ABNER team will continue to follow for coordination of care, discharge planning, and additional support as appropriate. RIVAS Porter * Plan of Care - David Cortez - 07/11/2024 12:31 PM CDT I visited Krunal today. Krunal said he was being discharged this Tuesday. Krunal declined Holy Communion and prayer. Krunal thanked my for stopping and for my previous visits. Deacon David Cortez * Plan of Care - Shagufta Strauss RN - 07/11/2024 10:52 AM CDT [facility] Plan of Care Note Pt alert and oriented x4, some back discomfort this morning. Pt given prn flexeril for spasms. Had an effective bowel movement with use bowel meds and self administered suppository. Pt independent inthe room for tranfers. TSLO for comfort. PEG tube site care done, granulation tissue are treated per orders. * Plan of Care - Nicolasa Hoskins RN - 07/11/2024 7:04 AM CDT [facility] Plan of Care Note Assessment: Safety and comfort Plan: Continue plan of care Subjective: Objective: Assumed cares [id number]. Pt is A&Ox4. Denies pain, chest discomfort, SOB. TF Compleat 80ml/hr via PEG tube([id number]). Continent/incontinent of bladder. Last BM 07/10. Meds whole with thins. TLSO for comfort. Call light within reach. Bed alarm on for safety. Slept approx 7.5 hours. * Plan of Care - Margarita Spears - 07/10/2024 7:24 PM CDT 07/10/24 1920 Session Info Patient Location [facility] Inpatient Acute Rehab Therapy explained Patient Verbal consent given per Patient Session Length 90 mins Assessment Source Patient Pain Pre-Therapy 6 Pain Post-Therapy (much, much less) Patient Comments/Feedback I was about to ask for pain meds before you showed up. Now I don't even want them. Massage Massage Provided Location Bed Positioning Right side-lying;Left side-lying;Reclining Areas Addressed with Massage Neck;Shoulder;Upper back;Middle back;Lower back;Hips;Arms;Forearms;Wrists;Hands * Plan of Care - Shagufta Strauss RN - 07/10/2024 2:33 PM CDT [facility] Plan of Care Note Pt alert and oriented x4, c/o of discomfort around the PEG site, noted some increased drainage. PEGsite cares done, MD notified of increased drainage, granulation tissue noted. Pt voiding clear urine in the urinal. Had a bm this morning with bowel program. Pt self administered suppository. Pt wearing TLSO for comfort most of the time. * Plan of Care - Nicolasa Hoskins RN - 07/10/2024 7:04 AM CDT [facility] Plan of Care Note Assessment: Safety and comfort Plan: Continue plan of care Subjective: Objective: Assumed cares [id number]. Pt is A&Ox4. Complained of pain on PEG site managed with PRN Tylenol. Denies chest discomfort, SOB. TF Compleat 80ml/hr via PEG tube([id number]). Incontinent ofbladder x1, last BM 07/08. Meds whole with thins. TLSO for comfort. Call light within reach. Bed alarm on for safety. Slept approx 7 hours. * Plan of Care - Erica Ramos RN - 07/09/2024 8:30 PM CDT [facility] Plan of Care Note Assessment: Progressing toward Rehab goals Plan: Continue to follow Rehab POC. Subjective: My pain is a strong 7. Its the worst when it [pt's back] spasms Objective: Alert. Ox4. VSS. C/o back pain which is exacerbated by trying to tolerate being up without TLSO. See MAR for interventions. Pt states that his pain is worsening in the last day or two, butit does not hinder therapy performance. PEG site cares completed. Dressing changed. New activity order this shift. Incontinent of bladder x1. Problem: Rehabilitation (IRF) Plan of Care Goal: Plan of Care Review Outcome: Progressing * Plan of Care - Malia Ferrer, PT - 07/09/2024 4:32 PM CDT [facility] Rehab Interdisciplinary Team Conference All staff in person interdisciplinary team conference was held today 07/10/2024 with: Physician: Nithya Jacobs MD, Nurse: Megan Campbell, RN, Occupational Therapist: Yarely Rutherford, OTR/L, Psychologist: Nirmal Andrew, Physical Therapist: Karissa Santa, PT, Rec Therapist: ELA Black, Dietitian: Mariam Mills, Speech Therapist: None, Strap Folding Machine Operator: RIVAS Hahn. Admission Date: 07/04/2024 Medical Status Review: Refer to MD progress note 07/09/2024 for updated information. Strap Folding Machine Operator Update: sheep farm worker will communicate with patient and family following rounds. Rehab Psychologist: Patient is being followed by Rehabilitation Psychology. Please refer to their last or forthcoming note under Summary/Session Overview for details. Assessment: Patient is benefitting from intensive rehab program. Barriers to Progressing Plan of Care: none What barriers are keeping the patient from discharging today? Patient continues to require current level of medical/IRF care Patient requires medical clearance Support system training necessary Interventions to Discharge: Support system education/training Continue current plan of care and intervention Expected Discharge Date: 07/13/2024 Focus of Plan of Care for this week: Medication management, pain management, monitor po intake, bowel and bladder management, work on stairs and ambulation. Plan Plan will be to discharge to: Discharge home with 24 hour supervision Discharge home with family supervision/support Discharge home with recommended outpatient services. The patient/support system were involved in the plan of care through Admission education, Care conference to include support system, Discussion with team members, Nursing education, Therapy education, and Social work education How was support system involved in this plan? Attended patient therapies Discussion with team members Nursing Education Therapy Education Anticipated Discharge Therapy Needs: OT: Outpatient therapy, PT: Outpatient thera Progress Review: IRF-TIFFANIE Review from Previous Week: Category Discharge Goal IRF-TIFFANIE First IRF-TIFFANIE Current IRF-TIFFANIE Eating 6: Independent - no helper assist 5: Setup/clean up assistance - prior and/or following activity 6: Independent - no helper assist Oral Hygiene 6: Independent - no helper assist 6: Independent - no helper assist 6: Independent - no helper assist Grooming See documentation Shower/Bathe Self 4: Supervision/touch assist - verbal cues and/or touching/steadying and/or contact guard assistance 3: Partial/mod assist - helper does <50% 6: Independent - no helper assist UB Dressing 6: Independent - no helper assist 2: Substantial/max assist - [place] does >50% 6: Independent - no helper assist LB Dressing 4: Supervision/touch assist - verbal cues and/or touching/steadying and/or contact guard assistance 1: Dependent - [place] does ALL effort/assistance of 2 6: Independent - no helper assist Donning/[place] Footwear 4: Supervision/touch assist - verbal cues and/or touching/steadying and/orcontact guard assistance 1: Dependent - [place] does ALL effort/assistance of 2 6: Independent - no helper assist Toileting Hygiene 6: Independent - no helper assist 1: Dependent - [place] does ALL effort/assistance of 2 1: Dependent - [place] does ALL effort/assistance of 2 Bladder Intervention Assistance See documentation 2: Substantial/max assist - [place] does >50% 5: Setup/clean up assistance - prior and/or following activity Bladder Continence See documentation 4: Always incontinent 3: Incontinent daily (at least once a day) Bowel Intervention Assistance See documentation 1: Dependent -[place] does ALL effort/assistance of 2 1: Dependent -[place] does ALL effort/assistance of 2 Bowel Continence See documentation 2: Frequently incontinent (2 or more episodes of bowel incontinence, but at lease one continent bowel movement) 2: Frequently incontinent (2 or more episodes of bowel incontinence, but at lease one continent bowel movement) Roll Left to Right 6: Independent - no helper assist 2: Substantial/max assist - [place] does >50% 6: Independent - no helper assist Sit to Lying 6: Independent - no helper assist 2: Substantial/max assist - [place] does >50% 6: Independent - no helper assist Lying to Sitting on Side of Bed 6: Independent - no helper assist 2: Substantial/max assist - [place] does >50% 6: Independent - no helper assist Sit to Stand 6: Independent - no helper assist 88: Not attempted due to medical condition or safetyconcerns 3: Partial/mod assist - [place] does <50% Chair/Bed to Chair Transfer 6: Independent - no helper assist 1: Dependent - [place] does ALL effort/assistance of 2 (per chart review) 6: Independent - no helper assist Car Transfer 6: Independent - no helper assist 2: Substantial/max assist - [place] does >50% 2: Substantial/max assist - [place] does >50% Toilet Transfers 6: Independent - no helper assist 2: Substantial/max assist - [place] does >50% 4: Supervision/touch assist - verbal cues and/or touching/steadying and/or contact guard assistance Walk 10 feet 2: Substantial/max assist - [place] does >50% 88: Not attempted due to medical condition or safety concerns 3: Partial/mod assist - [place] does <50% Walk 50 feet with two turns 2: Substantial/max assist - [place] does >50% 2: Substantial/max assist - [place] does >50% 2: Substantial/max assist - [place] does >50% Walk 150 feet 2: Substantial/max assist - [place] does >50% Walk 10 feet on uneven surface 2: Substantial/max assist - [place] does >50% Wheel 50 feet with 2 turns 6: Independent - no helper assist 2: Substantial/max assist - [place] does >50% 6: Independent - no helper assist Wheel 150 feet 6: Independent - no helper assist 2: Substantial/max assist - [place] does >50% 6:Independent - no helper assist 4 Steps with 1 rail 2: Substantial/max assist - [place] does >50% 88: Not attempted due to medical condition or safety concerns 88: Not attempted due to medical condition or safety concerns 12 Steps with 1 rail 9: Not applicable - Not attempted and the patient did not perform this activity prior to the current illness, exacerbation, or injury. 88: Not attempted due to medical condition or safety concerns 88: Not attempted due to medical condition or safety concerns 1 Step up & down (curb) 2: Substantial/max assist - [place] does >50% 88: Not attempted due to medical condition or safety concerns 3: Partial/mod assist - [place] does <50% Picking up objects 3: Partial/mod assist - [place] does <50% 88: Not attempted due to medical condition or safety concerns 88: Not attempted due to medical condition or safety concerns Comprehension 4: Will have clear comprehension without cues or repetition 4: Has clear comprehension without cues or repetition 4: Has clear comprehension without cues or repetition Expression 4: Will express complex messages without difficulty 4: expresses complex messages without difficulty 4: expresses complex messages without difficulty Attention 4: Will concentrate without difficulty regardless of setting/will alternate attention independently 4: concentrate without difficulty regardless of setting, can alternate attention independently 4: concentrate without difficulty regardless of setting, can alternate attention independently Problem-Solving 4: Will solve complex, multi-step or abstract problems without difficulty or assist4: solves complex, multi-step or abstract problems without difficulty or assist 4: solves complex, multi-step or abstract problems without difficulty or assist Memory 4: Will independently recall novel info, complete tasks with/without aide 4: recalls novel info., completes tasks independently with/without aide 4: recalls novel info., completes tasks independently with/without aide OT Short Term Goals: Goals Goals: ADL LE dressing, additional OT Goal 1, ADL toileting LE Dressing Goal Patient will dress LE: shorts, Frequency: 75-90% of opportunities, Level of Assist: with stand-by assist, Goal to bemet by: 07/12/24, Status: goal met ADL Toileting Goal Frequency: 75-90% of opportunities, Level of Assist: with mod assist, Goal to be met by: 07/17/24, Status: goal progressing ADL Additional OT Goal 1 Patient will: complete 50% of bowel program without assist, Frequency: 75-90% of opportunities, Goal to be met by: 07/17/24, Status: goal progressing Interventions: activity tolerance training, adaptive equipment training, BADL retraining, IADL retraining, occupation/activity based interventions, ROM/therapeutic exercise, transfer/mobility retraining, strengthening exercise PT Short Term Goals: Goals Patient/Family Therapy Goals Statement (PT): Today 07/08: Pt requesting d/c home on 07/19. Per5/29/25: IND with mobility, sponge bathing, worked 3 jobs, lives with his mom, bedroom and bathroom are not WC accessible, Goals: bed mobility, transfers, wheelchair, precautions education Bed Mobility Patient will transfer to/from supine with: Min assist (<25% of task), Functional Outcome: in order to progress toward indepedence with mobility, Goal to be met by: 07/12/24, Status: goal met Transfers Patient will transfer: bed to/from chair with, Level of Assist: Min assist (<25% of task), Functional Outcome: in order to progress toward indepedence with mobility, Goal to be met by: 07/12/24, Status: goal met Wheelchair Patient will propel wheelchair: 150 feet, Level of Assist: Modified independent, Functional Outcome: in order to increase activity tolerance to engage in leisure and/or work activities, Goal to be met by: 07/12/24, Status: goal met Precautions Education Patient will verbalize and demonstrate understanding of: spine precautions, Functional Outcome: in order to be safe in their living environment, Goal to be met by: 07/12/24, Status: goal met Interventions: activity tolerance training, balance training, bed mobility training, gait training,home exercise program, postural re-education, stair training, strengthening, stretching, wheelchairmanagement/propulsion training, transfer training Speech Short Term Goals: NA Recreation Therapy Short Term Goals: Goals Patient/Family Goals Statement: be added to PM group list; was provided same, Goals: additional evaluation Additional Evaluation - Goal Evaulation Needs: patient, provide information needed to complete evaluation, Goal to be met by: 07/06/24, Goal status: goal progressing Interventions: transportation resource exploration/education, leisure planning/holistic health Nursing Goals: Goals Patient/family will be able to administer Lovenox injections: Working towards goal /continue education, Patient/family will know and are able to perform bladder program: Working towards goal /continue education, Patient/family will know and are able to perform bowel program: Working towards goal /continue education, Patient/family will know and are able to perform wound cares: Goal Met, Patient/family will know medication management: Working towards goal /continue education, Patient will meet estimated calorie protien and hydration needs from diet or tube feedings: Goal Met, Patient will be free of restraints and environmental health and safety leader: Goal Met, Patient/family are to manage braces, splintsor collars: Working towards goal /continue education, Other Teaching 1 : Working towards goal /continue education Dietary Goals: 1) Compleat 1.4 at 80 mL/hr x 10 hours 2) Water flushes 60 mL q 4 hours 2) Th[employer] Gel[employer] oncer per day I met with the rehabilitation team to discuss the patient's progress in therapies, problems to workon, barriers to discharge and plan for discharge. I agree with the decisions made by the interdisciplinary team. Nithya Jacobs MD 07/10/2024 PM and R * Plan of Care - Benita Cortez R, OTR/L - 07/09/2024 4:03 PM CDT Occupational Therapy Treatment Reason for Admit/Therapy Consult: Patient is a 24 year old male admitted to acute rehab on 07/04/24 for deconditioning. He has had recurrent falls that has lead to back pain. Now in a TLSO for stability and NWB LUE. Existing Precautions/Restrictions: fall, bracing, weight bearing Type of Brace: TLSO for comfort; AFO with mobility LUE Weight-Bearing Status: weight-bearing as tolerated Living Arrangements: Parent(s) (Pt lives with mother.) Mobility Equipment Used at Baseline: Crutches, axillary, Wheelchair, manual, Wheelchair cushion Available Equipment: Crutches, axillary, Wheelchair, manual, Other (comment) (Adjustable bed) Home Accessibility: stairs to enter home Prior Level of Function Details: was previously IND prior to ankle surgery, was working 3 jobs ([employer] and [employer]) Assessment: OT fabricated pt an ulnar gutter splint to support and rest th 4th and 5th MCPs and PIPS of his left hand following tenosynovitis diagnosis. Pt reports pain in left hand since fall prior to admission. Pt reports pain with extension and some pain flexion of MCPS and PIPs. Pt should wear splint as much as possible to allow structures to rest and heal. OT will will follow while inpatient. (OT) Discharge Recommendations: Home vs TCU, depending on caregiver ability to provide assistance (OT) Discharge Readiness: Patient needs to remain hospitalized for therapy follow-up (OT) Rehab Potential: Good potential, to return to independence with self cares, to decrease burdenof care with self cares (OT) Discharge Recommendations Discussion: Discussed with, patient, patient agrees with recommendations Inpatient Plan: Nursing Activity Recommendations (OT): pop over transfers- IND in room, wear left ulnar gutter splint as much as possible See Link to OT Doc in Patient Story for more details about daily sessions. * Plan of Care - Seymour Peng RN - 07/09/2024 6:55 AM CDT [facility] Plan of Care Note Assessment: safety,comfort Plan: cont rehab poc's Subjective/Objective: Assumed cares from [id number]. A&O x4. Pain free, denies Sob, Chest discomfort, Abdominal Pain, N/V.Received on-going TF Compleat at 80 ml/hour, water flushing refused. Voided at urinal at bedside with 700 ml.Last BM yesterday. Self repositioned on bed. Safety ensured,Bed alarm for safety, uses call light appropriately. Slept approx 8 hours. * Plan of Care - Alvin Ramos RN - 07/08/2024 10:36 PM CDT [facility] Plan of Care Note Assessment: Rehab Plan: Safety and Comfort per POC Subjective: Pt. denied pain, SOB, N/V Objective: Patient is A&O x4. Ax1 with GB to slide board to W/C. Bladder: cont./Incont.( refused ISC), Ate 100% of supper, TF Compleat started at 2130 (1000 mL at 80 mL/hr) well tolerated. PRNs (Valium 5 mg & Flexeril 10 mg) given with HS meds per patient request, Toileting offered many times. Last BM 07/08 AM. Up and wheeling himself in the W/C. Bed alarm on for safety, uses call light appropriately. * Plan of Care - Kimmy White RN - 07/08/2024 2:49 PM CDT [facility] Plan of Care Note Assessment: Rehab Plan: Continue POC Subjective: Objective: Pt a/o X 4. Reported pain to be tolerable with current pain regiment. Assist of 1 for transfer. Reminder to follow NWB on LUE. Continue to provided education on neurogenic bowel and bladder management. Encouraging timed voiding to prevent incont. Need 2 more low PVR. Large bm with AM bowel program. Participated in all therapies. MD notified about hypergranulation tissue around peg site. Refusing water flush per peg at times. Good oral intake. * Plan of Care - Chandler Murry - 07/08/2024 12:13 PM CDT [facility] Spiritual Care Department - General Paper Latcher Note - Iam Barahona. I visited Krunal due to a consult. He was resting in bed. No visitors. Plan: To visit weekly, preferably on Tuesday. Fr. Chandler Murry Paper Latcher * Plan of Care - Yulia Brooks RN - 07/08/2024 12:41 AM CDT [facility] Plan of Care Note Assessment: Rehab Plan: Maintain safety and comfort Subjective: Objective: Assumed cares 1900 - 729: A&O x4. Reported neck pain radiating to the back managed with PRN Motrin and Trazodone to promote sleeping. Pt able to sleep. TF Compleat started at desired rate with water flushes 60 ml Q4 hours, well tolerated. Denies N/V. Toileting offered many times. Voided at 0700 for 450 ml concentrated with PVR reading of 346, encouraged double voiding will do post breakfast. Last BM 07/07. Self repositioned on bed. Bed alarm for safety, uses call light appropriately. Slept approx 7 hours. * Plan of Care - Kimmy White RN - 07/07/2024 6:32 PM CDT [facility] Plan of Care Note Assessment: Rehab Plan: Continue POC Subjective: Objective: Pt a/o X 4. C/o neck pain that is somewhat managed with prn pain medications. Large hardbm with AM bowel program. Encouraged timed voiding to prevent bladder incontinent. Pt voiding adequate amt in urinal with assistant womens volleyball coach. Still need 3 low PVRs. No therapy today and rested. Refusing waterflush through peg due to cause of nausea and prefer to drink it instead. * Plan of Care - Yulia Brooks RN - 07/07/2024 12:44 AM CDT [facility] Plan of Care Note Assessment: Safety, comfort Plan: Continue rehab POC Subjective: Objective: Assumed cares 1900 - 729: A&O x4. Denies pain, SOB, N/V. Bed alarm for safety, call light appropriately. Pills whole withthin. Incontinent of moderate soft BM x1. Incont of bladder x2 with PVR of 529, encouraged double voiding using urinal with 450 ml urine, PVR of 195. Toileting offered. Repositioned independently. TFstarted at 2000 regulated to new rate of 80 ml/hour with 60 ml water flushes Q 4 hours, well tolerated. Slept approx 7 hours. * Plan of Care - Kimmy White RN - 07/06/2024 6:22 PM CDT [facility] Plan of Care Note Assessment: Rehab Plan: Continue POC Subjective: Objective: Pt a/o X 4. Denied pain. C/o nausea with frequent water flush, Medical Staff Physician notified and water flush was adjusted. PRN Zofran given and relief noted. Incontinent of large soft bm X 2. Incont of bladder X 2-3 large amt. Encouraged to voided in urinal, voided for 250 ml and PVR for 0 cc. Needone more low PVR. Pt able to self reposition in bed, assisted prn. * Plan of Care - Nicolasa Hoskins RN - 07/06/2024 6:57 AM CDT [facility] Plan of Care Note Assessment: Safety and comfort Plan: Continue plan of care Subjective: Objective: Assumed cares [id number]. Pt is A&Ox4. Denies pain, chest discomfort, SOB. TF Compleat 124ml/hr via PEG tube([id number] per pt's request). Continent/incontinent of bladder, last BM 07/04.Meds whole with thins. TLSO at HS per pt's preference. Prevalon boots on. Repositioned Q3H. Call light within reach. Bed alarm on for safety. Slept approx 7 hours. * Plan of Care - Terra Bertrand, PharmD - 07/05/2024 1:14 PM CDT [facility] Medication History Note The following medication reconciliation note was copied from the patient's inpatient admission and represents what he was taking at home prior to admission to [facility]. On transfer to [facility] the following medication changes were made: Medications added: Flonase, gabapentin, ibuprofen, loratadine, senna Medications changed: cyclobenzaprine increased to 5-10 mg tid prn, famotidine 40 mg/d>20 mg bid,fluoxetine changed from solution to capsule. NOTE: Bactrim DS BID for 7 days was ordered on 06/14/24. The patient states he did not start this. Patient states he received a call from the prescribing doctor stating he does not have an infection. Patient is not sure if he should be taking this or not at home. 1. Source(s) of Medication Information: Patient, Lewis/Dr. Gil, Care Everywhere 2. Pertinent Information: Recent prior to admission medication changes: Medications added: Triamcinolone 0.1% cream 2 times a week Omeprazole 40 MG qday - Patient states he should be taking this but he is not currently. Last filled #30 caps 06/04/24 Ondansetron ODT 4 MG prn Trazodone 50 MG HS Fluoxetine 20MG/5mL - 20 MG qday Famotidine 40 MG qday Miralax 17 grams qday prn Medications deleted: Recently filled medications that the patient no longer takes : 06/06/24: Fluconazole 200 MG qday for 14 days - patient states he finished this. Per calendar, the patient should have taken his last scheduled dose today 06/01/24: Cefdinir 300 MG BID for 10 days 05/18/24: Augmentin 400-57 MG/5mL - 10 mL BID for 7 days Compliance considerations: no concerns 3. Outpatient Medications Marked as Taking: Outpatient Medications Marked as Taking for the 06/19/24 encounter (Hospital Encounter) Medication Sig Note Last Dose/Taking acetaminophen (TYLENOL) 500 MG tablet Take 2 Tablets (1,000 mg) by mouth every 8 hours. Maximum acetaminophen dose is 4000 mg in 24 hours As Directed-PRN cyclobenzaprine (FLEXERIL) 5 MG tablet Take 1 Tablet (5 mg) by mouth three times a day as needed for Muscle Spasms. As Directed-PRN diazePAM (VALIUM) 5 MG tablet Take 1 Tablet (5 mg) by mouth every 6 hours as needed for Anxiety or Muscle Spasms. As Directed-PRN famotidine (PEPCID) 40 MG tablet Take 1 Tablet (40 mg) by mouth daily. Past Week FLUoxetine (PROZAC) 20 MG/5ML solution Take 5 mL (20 mg) by mouth daily. Past Week metoclopramide (REGLAN) 5 MG tablet Take 1 Tablet (5 mg) by mouth three times daily before meals. 06/18/2024 omeprazole (PRILOSEC) 40 MG capsule Take 1 Capsule (40 mg) by mouth daily. Take 1 hour before a meal. 06/19/2024: Patient states he should be taking this but he is not currently. Last filled #30 caps 06/04/24 On Hold ondansetron (ZOFRAN-ODT) 4 MG disintegrating tablet Take 1 Tablet (4 mg) by mouth every 8 hours as needed for Nausea. As Directed-PRN polyethylene glycol 3350 (GLYCOLAX) 17 GM/SCOOP powder Take 17 g by mouth every 24 hours as needed.As Directed-PRN traZODone (DESYREL) 50 MG tablet Take 1 Tablet (50 mg) by mouth daily at bedtime. 06/18/2024 triamcinolone acetonide (KENALOG) 0.1 % cream Apply topically two times a week. Apply to the affected area 06/18/2024 Thank you. This list represents the best possible medication history available at the time of note completion and should be used as a guide in reconciling home medications for hospital use. ? * Plan of Care - Chandler Murry - 07/05/2024 12:12 PM CDT [facility] Spiritual Care Department - General Paper Latcher Note - Declined. Plan: To follow as able. Fr. Chandler An * Initial Assessments - Rosalia Bartlett FLAG CAR DRIVER - 07/05/2024 11:55 AM CDT [facility] Care Management Initial Assessment Assessment completed with: Patient PLAN Expected Discharge Date/Time: Anticipated Discharge Plan: TBD, pending therapy assessment and discharge planning ADMISSION INFO Insurance: BCBS/[facility] PMAP MNCARE Readmission Interview: Contacts: Emergency Contacts Strategic Development Manager (Rel.) Home Phone Work Phone Mobile Phone June Reinoso (Mother) -- -- [phone] pt,declined -- -- -- Collateral Contacts: Business Enterprise Officer Business Enterprise Officer Name: ALMA Macdonald Complex Care Business Enterprise Officer Other Contact Name: [facility] [place] [employer] Reclamation Engineer Other Contact Primary Care: PCP: Eliana Guerra MD Location[facility]) Confirmed with patient/family/legal artists' booking representative PCP on file is accurate: Yes Living Situation (PRIOR TO ADMISSION): Living Arrangements: Parent(s) (Pt lives with mother.) Level Access Type: Stairs (interior) Number of Stairs, Entrance: 2 Number of Stairs Within Home: None Sources of Support: Parent(s), Sibling(s), Friend(s)/Neighbor(s) Does patient want caregiver/support person involved in discharge planning?: No, patient declines (able to meet new care needs) Resource/Environmental Concerns: None Who manages medications?: Patient How are medications managed?: Bottles Available Equipment: Crutches, axillary, Wheelchair, manual, Other (comment) (Adjustable bed) Mobility Equipment Used at Baseline: Crutches, axillary, Wheelchair, manual, Wheelchair cushion Functional Screen (PRIOR TO ADMISSION): Baseline Ambulation: Community ambulator (>1200 ft) Bed to chair transfer: 4-->None (independent) Climbing 3-5 stair with railin-->None (independent) Eating meals: 4-->None (independent) Toileting (includes using toilet, bedpan or urinal): 4-->None (independent) Bathing (including washing, rinsing, drying): 4-->None (independent) Medication Management: None (independent) Meal Preparation: None (independent) Household Management/Laundry: None (independent) Money Management: None (independent) Transportation: Drives Independently, Relies on family/friends Hearing - Right Ear: No hearing impairment Hearing - Left Ear: No hearing impairment Vision: Glasses Services: Current Services: Business Enterprise Officer, Home Care Confirmed patient currently open with Home Care (agency name): [facility] Patient is Receiving (Home Care): RN ([facility]) Confirmed patient can resume Home Care services upon discharge?: Yes Prior Services: Home Care, Business Enterprise Officer PATIENT PRESENTATION Emotional/Psychological: Affect: Appropriate Emotion/Mood: Calm, Appropriate to situation Speech: Effective, Moderate rate and volume, Articulate Hallucinations: Denies Delusions: Denies Judgment and Insight: Judgment appropriate to situation, Insight appropriate to situation Thought Process: Logical, Goal directed, Linear thought process, Relevant Mental Health Symptoms/Conditions: Anxiety, Depression Current Mental Health Treatment: None Prior Mental Health Treatment: None Coping/Stress: Patient Personal Strengths: Expressive of needs, Positive attitude, Resilient, Self-reliant Major Change/Loss/Stressor: Medical condition/diagnosis PATIENT ASSESSMENT Chart reviewed and patient discussed with interdisciplinary team during care connections. Per provider notations, pt admitted d/t falls, weakness, and malaise. Pt's medical history includes: genetically-proven Klinefelter syndrome, hypermobility syndrome, connective tissue disorder/unspecified Kamari-Danlos, chronic pain, bilateral hip dysplasia/impingement/labral tears, recurrent peroneal tendonsubluxation, status post right lower extremity surgery, status post left wrist injury and surgery, history of pectus excavatum surgery, history of percutaneous gastrostomy spring, possible POTS and gastroparesis. Patient not medically cleared and not ready for discharge, pending clinical improvement and medicalclearance. Provider anticipates patient to discharge between 06/10/24-06/15/24. SW met with pt at bedside for introduction of self and SW role. Review and verification of pt demographic information, preferred contacts/NOK info, verification of PCP, and discussion of pt's PLOF. At this time, pt plans to be the only contact for discharge planning and does not want family, including mother, called. Pt may decide to include pt's mother in DC planning later in the PMR stay. Pt would like SW to follow up on pt's decision to include pt's mother in DC planning prior to scheduling a care conference because pt may decide to have pt's mother at the care conference. Pt stated pt is generally independent with cares and living tasks. When pt's physical care needs are increasing, pt states pt doesn't always have the care pt needs and there are times things don't get done or pt is unable to get to appointments because pt feels too unwell to drive pt's self. Pt is managing pt's own Community First Service and Supports (CFSS), which involves pt hiring pt's own RELIEF MATE. Pt states pt has funding for a RELIEF MATE 3.25 hours per day 7 days per week. Pt does not have a RELIEF MATE at this time. Collateral Contacts: Business Enterprise Officer Business Enterprise Officer Name: ALMA Macdonald Complex Care Business Enterprise Officer Other [facility] [employer] Reclamation Engineer Other Contact Other Contact: [facility], confirmed they will continue to follow pt for DC planning. P: [phone] F:[phone] Pt gave permission to discuss discharge planning with piano case maker, Caesar. Pt denies current or previous services at home a TCU stay or having OP therapies. Pt denies previous or current MH/FIERRO concerns, pt notes pt experiences anxiety and depression with out thoughts of self harm or suicide Cotton Breeder informed pt of the option of [facility] psychology services. Pt does not have a HCD and declines health care directive information. 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 Has support from family and friends. Pt notes this support is for an occasional meal or need, not ongoing daily support. Reviewed use of a care conference (CC) as a critical tool used to support discharge. Explained how this is scheduled approximately one week prior to discharge and invites carbajal support people to be part of patient's discharge process (in person or via video). Pt would like SW to follow up with pt prior to scheduling the care conference to determine if pt would like to invite pt's mother. IRF-TIFFANIE SW questions completed w/ pt and entered into medical record. Community Resources Discussed: NA Referrals Made at this Time: NA CM/SW NEXT STEPS Continue collaboration with team, providers, pt/family for DC planning and best pt outcome, referral(s) PRN. Schedule Care Conference, determine if education will be needed. Follow up with pt re: pt's preferences for pt's mother's involvement in DC planning and follow up with pt just prior to scheduling the care conference to determine if pt's mother should be invited. CM/SW team will continue to follow for coordination of care, discharge planning, and additional support as appropriate. FREDRICK Hull * Plan of Care - Mike Mcfadden RN - 07/04/2024 3:23 PM CDT [facility] Plan of Care Note Assessment: Pt welcomed to the rehab unit. Plan: Pt will continue working toward rehab goals. Subjective: I'm ready to work hard Objective: Pt was picked up from [facility] this afternoon. Pt A&Ox4 with no c/o pain. Pt welcomed to the unit and oriented to what is planned tomorrow. Report given to the oncoming shift. documented in this encounter Administered Medications Inactive Administered Medications - up to 3 most recent administrations Medication Order MAR Action Action Date Dose Rate Site acetaminophen (TYLENOL) tablet 650 mg 650 mg, Oral, Q6H PRN, Pain/Fever, Initially give acetaminophen for patient with mild pain., Starting on Tue07/04/24 at 1541, Until Tue07/13/24 at 1224, Initially give acetaminophen for patient with mild pain. Acetaminophen may be given WITH other pain medications as adjunct pain relief. Do not give two acetaminophen containing medications within 4 hours of each other. Given 07/11/2024 7:51 PM CDT 650 mg Given 07/10/2024 3:22 AM CDT 650 mg Given 07/09/2024 3:20 PM CDT 650 mg bisacodyl (DULCOLAX) rectal suppository 10 mg 10 mg, Rectal, DAILY PRN, Constipation, No stool in the last 3 days, Starting on Tue07/04/24 at 1541, Until Tue07/13/24 at 1224, Cumulative bowel medication orders. Administer based on medications available on APR. If no stool in last day start Senna BID PRN no stool, if no stool in last 2 days add Miralax DAILY PRN no stool, if no stool in last 3 days add bisacodyl suppository DAILY PRN until patient stools. When patient stools, stop giving PRN meds and continue monitoring for bowel activity. When no stools X 1 day, begin regimen again until patient stools. Do not give if Absolute Neutrophil Count (ANC) is 1 k/cmm or less OR platelet count is 50 k/cmm or less. Given 07/11/2024 7:44 AM CDT 10 mg Given 07/10/2024 7:58 AM CDT 10 mg Given 07/08/2024 8:02 AM CDT 10 mg cyclobenzaprine (FLEXERIL) tablet 5-10 mg 5-10 mg, Oral, TID PRN, Muscle Spasms, Starting on Tue07/04/24 at 1541 Given 07/11/2024 5:41 PM CDT 10 mg Given 07/11/2024 8:55 AM CDT 10 mg Given 07/09/2024 5:00 PM CDT 10 mg diazePAM (VALIUM) tablet 2.5 mg 2.5 mg, Oral, Q6H PRN, Anxiety, Muscle Spasms, Starting on Tue07/04/24 at 1541, Until Tue07/08/24 at 1614 Given 07/07/2024 5:15 PM CDT 2.5 mg Given 07/05/2024 12:09 PM CDT 2.5 mg diazePAM (VALIUM) tablet 2.5 mg 2.5 mg, Oral, Q6H PRN, may repeat if initial 2.5 mg not sufficient, Starting on Milagros 07/05/24 at 1312, Until Tue07/08/24 at 1628, Indications: anxiety,spasmIndications:anxiety,spasm Given 07/07/2024 6:20 PM CDT 2.5 m g diazePAM (VALIUM) tablet 5 mg 5 mg, Oral, Q6H PRN, Anxiety, Muscle Spasms, Starting on Tue07/08/24 at 1614, Until Tue07/13/24 at 1224 Given 07/11/2024 4:47 PM CDT 5 mg diazePAM (VALIUM) tablet 5 mg 5 mg, Oral, Q6H PRN, may repeat only if initial 5 mg not sufficient (from other order), Starting on Tue07/08/24 at 1628, Until Tue07/09/24 at 2317, Indications: anxiety,spasmIndications:anxiety,spasm Given 07/09/2024 4:44 PM CDT 5 mg Given 07/09/2024 3:21 PM CDT 5 mg Given 07/08/2024 8:06 PM CDT 5 mg enoxaparin (LOVENOX) prefilled syringe 40 mg 40 mg, Subcutaneous, DAILY - 1999, First dose (after last modification) on Tue07/04/24 at 2000, Until Discontinued, DO NOT GIVE if platelet count less than 50,000 Inject subcutaneously into abdominal tissue only. HIGH ALERT medication, Indications: DVT prophylaxisIndications:DVT prophylaxis Given 07/11/2024 7:51 PM CDT 40 mg Abdominal Tissue Given 07/09/2024 8:12 PM CDT 40 mg Ab dominal Tissue Given 07/08/2024 8:01 PM CDT 40 mg Ab dominal Tissue famotidine (PEPCID) tablet 20 mg 20 mg, Oral, BID, First dose (after last modification) on Tue07/04/24 at 2000, Until Discontinued Given 07/13/2024 7:45 AM CDT 20 mg Given 07/12/2024 8:57 PM CDT 20 mg Given 07/12/2024 8:16 AM CDT 20 mg FLUoxetine (PROZAC) capsule 20 mg 20 mg, Oral, DAILY, First dose (after last modification) on [facility] 07/05/24 at 0800, Until Discontinued Given 07/13/2024 7:45 AM CDT 20 mg Given 07/12/2024 8:15 AM CDT 20 mg Given 07/11/2024 7:44 AM CDT 20 mg gabapentin (NEURONTIN) capsule 900 mg 900 mg, Oral, TID, First dose (after last modification) on [facility] 07/05/24 at 0800, Until Discontinued, For neuropathic or acute post operative pain Given 07/12/2024 3:07 PM CDT 900 mg Given 07/12/2024 8:16 AM CDT 900 mg Given 07/11/2024 7:51 PM CDT 900 mg ibuprofen (MOTRIN) tablet 400 mg 400 mg, Oral, Q6H PRN, Pain, May be given with other analgesics, Starting on Tue07/04/24 at 1541, Until Tue07/13/24 at 1224, Take with food or milk if possible. Do not give NSAIDS if SBP less than 100 mmHg. Given 07/09/2024 6:58 PM CDT 400 m g Given 07/07/2024 7:51 PM CDT 400 mg loratadine (CLARITIN) tablet 10 mg 10 mg, Oral, BID, First dose (after last modification) on Tue07/04/24 at 2000, Until Discontinued Given 07/13/2024 7:45 AM CDT 10 mg Given 07/12/2024 8:57 PM CDT 10 mg Given 07/12/2024 8:15 AM CDT 10 mg metoclopramide (REGLAN) tablet 5 mg 5 mg, Oral, TID WITH MEALS PRN, Other, motility, Starting on Tue07/04/24 at 1542, Until Tue07/04/24 at 2136, Risk of tardive dyskinesia increases with higher doses or long durations of metoclopramide therapy. Given 07/04/2024 6:27 PM CDT 5 mg metoclopramide (REGLAN) tablet 5 mg 5 mg, Oral, TID AC, First dose (after last modification) on Tue07/04/24 at 2200, Until Discontinued, Risk of tardive dyskinesia increases with higher doses or long durations of metoclopramide therapy. Given 07/13/2024 6:32 AM CDT 5 mg Given 07/12/2024 3:07 PM CDT 5 mg Given 07/12/2024 12:03 PM CDT 5 mg ondansetron (ZOFRAN) tablet 4 mg 4 mg, Oral, Q8H PRN, Nausea, Vomiting, Starting on Tue07/04/24 at 2136, Until Tue07/13/24 at 1224, Indications: Nausea and VomitingIndications:Nausea and Vomiting Given 07/06/2024 1:01 PM CDT 4 mg Given 07/05/2024 12:10 PM CDT 4 mg oxyCODONE (ROXICODONE) immediate release tablet 5 mg 5 mg, Oral, BID PRN, Pain, Starting on Tue07/04/24 at 1542, Until Tue07/13/24 at 1224, Give PO opioid if able to take PO and pain not well controlled with other medications or interventions. Given 07/11/2024 4:59 PM CDT 5 mg Given 07/09/2024 4:45 PM CDT 5 mg Given 07/07/2024 5:15 PM CDT [address] (PROTONIX) tablet 40 mg 40 mg, Oral, BID AC, First dose (after last modification) on Tue07/04/24 at 1600, Until Discontinued Given 07/13/2024 6:32 AM CDT 40 mg Given 07/12/2024 3:07 PM CDT 40 mg Given 07/12/2024 6:41 AM CDT 40 mg polyethylene glycol (MIRALAX) oral powder 17 g 17 g, Oral, DAILY, First dose (after last modification) on Tue07/05/24 at 0800, Until Discontinued, May give BID dose as needed if not meeting stool goal Given 07/11/2024 7:44 AM CDT 17 g Given 07/10/2024 7:54 AM CDT 17 g Given 07/09/2024 8:11 AM CDT 17 g sennosides-docusate sodium (SENOKOT S) 8.6-50 MG per tablet 1 Tablet 1 Tablet, Oral, DAILY, First dose (after last modification) on Tue07/05/24 at 0800, Until Discontinued, as laxative/stimulant, stool-softening agent Given 07/11/2024 7:44 AM CDT 1 Tablet Given 07/10/2024 7:53 AM CDT 1 Tablet Given 07/09/2024 8:12 AM CDT 1 Tablet silver nitrate-potassium nitrate applicator 1 Applicator 1 Applicator, Topical, ONCE, On Tue07/11/24 at 1300, For 1 dose, Apply topically to (specify site) feeding tube site Given 07/11/2024 4:48 PM CDT 1 Applicator Other (Comment) traZODone (DESYREL) tablet 50 mg 50 mg, Oral, HS PRN, Sleep, Starting on Tue07/04/24 at 1542, Until Tue07/13/24 at 1224 Given 07/11/2024 7:51 PM CDT 50 mg Given 07/07/2024 9:38 PM CDT 50 mg documented in this encounter Active and Recently Administered Medications Times are shown in CDT. Scheduled Medication Order 07/11/2024 07/12/2024 07/13/2024 enoxaparin (LOVENOX) prefilled syringe 40 mg (CANCELED) 40 mg, Subcutaneous, DAILY - 1999, First dose (after last modification) on Tue07/04/24 at 1999, Until Discontinued, DO NOT GIVE if platelet count less than 50,000 Inject subcutaneously into abdominal tissue only. HIGH ALERT medication, Indications: DVT prophylaxis 1950 (Given - Provider: Dhara Culp RN) famotidine (PEPCID) tablet 20 mg 20 mg, Oral, BID, First dose (after last modification) on Tue07/04/24 at 2000, Until Discontinued 743 (Given - Provider: Shagufta Strauss RN)1950 (Given - Provider: Dhara Culp RN) 815 (Given - Provider: Beata Humphrey RN)2056 (Given - Provider: Brandon Cote RN) 45 (Given - Provider: Shagufta Strauss RN) FLUoxetine (PROZAC) capsule 20 mg 20 mg, Oral, DAILY, First dose (after last modification) on Tue07/05/24 at 0800, Until Discontinued 0744 (Given - Provider: Shagufta Strauss RN) 0815 (Given - Provider: Beata Humphrey RN) 0745 (Given - Provider: Shagufta Strauss RN) fluticasone propionate (FLONASE) 50 MCG/ACT nasal spray 1 [place] 1 [place], See Admin Instructions, WEEKLY, First dose (after last modification) on Tue07/10/24 at 1700, Until Discontinued, Shake bottle gently before using. Prime pump prior to first use (press six times until fine mist appears). [place] on skin where butrans patch will go and let dry before placing patch. This is to help prevent adhesive reaction from the patch. gabapentin (NEURONTIN) capsule 900 mg 900 mg, Oral, TID, First dose (after last modification) on Tue07/05/24 at 0800, Until Discontinued, For neuropathic or acute post operative pain 0744 (Given - Provider: Shagufta Strauss RN)1318 (Given - Provider: Shagufta Strauss RN)195 (Given - Provider: Dhara Culp RN) 0816 (Given - Provider: Beata Humphrey RN)1507 (Given - Provider: Beata Humphrey RN)2056 (Not Given - Provider: Brandon Cote RN - Reason: Patient/family refused) 0746 (Not Given - Provider: Shagufta Strauss RN - Reason: Patient/family refused) loratadine (CLARITIN) tablet 10 mg 10 mg, Oral, BID, First dose (after last modification) on Tue07/04/24 at 2000, Until Discontinued 0744 (Given - Provider: Shagufta Strauss RN)195 (Given - Provider: Dhara Culp RN) 0815 (Given - Provider: Beata Humphrey, KASEI)2056 (Given - Provider: Brandon Cote, KASIE) 0745 (Given - Provider: Shagufta Strauss RN) metoclopramide (REGLAN) tablet 5 mg 5 mg, Oral, TID AC, First dose (after last modification) on Tue07/04/24 at 2200, Until Discontinued, Risk of tardive dyskinesia increases with higher doses or long durations of metoclopramide therapy. 0603 (Given - Provider: Nicolasa Hoskins RN)1138 (Given - Provider: Shagufta Strauss RN)1647 (Given - Provider: Shagufta Strauss RN) 0641 (Given - Provider: Dhara Culp RN)1203 (Given - Provider: Beata Humphrey RN)1507 (Given - Provider: Beata Humphrey RN) 0632 (Given - Provider: Brandon Cote RN) pantoprazole DR (PROTONIX) tablet 40 mg 40 mg, Oral, BID AC, First dose (after last modification) on Tue07/04/24 at 1600, Until Discontinued 0603 (Given - Provider: Nicolasa Hoskins RN)1647 (Given - Provider: Shagufta Strauss RN) 0641 (Given - Provider: Dhara Culp RN)1507 (Given - Provider: Beata Humphrey RN) 0632 (Given - Provider: Brandon Cote RN) polyethylene glycol (MIRALAX) oral powder 17 g(Linked Group 1) 17 g, Oral, DAILY, First dose (after last modification) on Tue07/05/24 at 0800, Until Discontinued, May give BID dose as needed if not meeting stool goal 0744 (Given - Provider: Shagufta Strauss RN) 0817 (Not Given - Provider: Beata Humphrey RN - Reason: Patient/family refused) 0746 (Not Given - Provider: Shagufta Strauss RN - Reason: Patient/family refused) sennosides-docusate sodium (SENOKOT S) 8.6-50 MG per tablet 1 Tablet 1 Tablet, Oral, DAILY, First dose (after last modification) on Tue07/05/24 at 0800, Until Discontinued, as laxative/stimulant, stool-softening agent 0744 (Given - Provider: Shagufta Strauss RN) 0817 (Not Given - Provider: Beata Humphrey RN - Reason: Patient/family refused) 0747 (Not Given - Provider: Shagufta Strauss RN - Reason: Patient/family refused) silver nitrate-potassium nitrate applicator 1 Applicator (COMPLETED) 1 Applicator, Topical, ONCE, On Tue07/11/24 at 1300, For 1 dose, Apply topically to (specify site) feeding tube site 1648 (Given - Provider: Shagufta Strauss RN - Comment: PEG site) PRN Medication Order 07/11/2024 07/12/2024 07/13/2024 acetaminophen (TYLENOL) tablet 650 mg 650 mg, Oral, Q6H PRN, Pain/Fever, Initially give acetaminophen for patient with mild pain., Starting on Tue07/04/24 at 1541, Until Tue07/13/24 at 1224, Initially give acetaminophen for patient with mild pain. Acetaminophen may be given WITH other pain medications as adjunct pain relief. Do not give two acetaminophen containing medications within 4 hours of each other. 1950 (Given - Provider: Dhara Culp RN) ALBUterol sulfate HFA inhaler 2 Puff 2 Puff, Inhalation, Q4H PRN, Cough/Wheezing, Starting on Tue07/04/24 at 1541, Until Tue07/13/24 at 1224, Shake well bisacodyl (DULCOLAX) rectal suppository 10 mg(Linked Group 1) 10 mg, Rectal, DAILY PRN, Constipation, No stool in the last 3 days, Starting on Tue07/04/24 at 1541, Until Tue07/13/24 at 1224, Cumulative bowel medication orders. Administer based on medications available on APR. If no stool in last day start Senna BID PRN no stool, if no stool in last 2 days add Miralax DAILY PRN no stool, if no stool in last 3 days add bisacodyl suppository DAILY PRN until patient stools. When patient stools, stop giving PRN meds and continue monitoring for bowel activity. When no stools X 1 day, begin regimen again until patient stools. Do not give if Absolute Neutrophil Count (ANC) is 1 k/cmm or less OR platelet count is 50 k/cmm or less. 0744 (Given - Provider: Shagufta Strauss RN) cyclobenzaprine (FLEXERIL) tablet 5-10 mg 5-10 mg, Oral, TID PRN, Muscle Spasms, Starting on Tue07/04/24 at 1541 0855 (Given - Provider: Shagufta Strauss RN)1741 (Given - Provider: Shagufta Strauss RN) diazePAM (VALIUM) tablet 5 mg 5 mg, Oral, Q6H PRN, Anxiety, Muscle Spasms, Starting on Tue07/08/24 at 1614, Until Tue07/13/24 at 1224 1647 (Given - Provider: Shagufta Strauss RN) ibuprofen (MOTRIN) tablet 400 mg 400 mg, Oral, Q6H PRN, Pain, May be given with other analgesics, Starting on Tue07/04/24 at 1541, Until Tue07/13/24 at 1224, Take with food or milk if possible. Do not give NSAIDS if SBP less than 100 mmHg. lidocaine (UROJET) 2 % gel prefilled syringe Urethral, PRN WITH PROCEDURES, Local Anesthetic, Prior to intermittent straight cath or indwelling urethral catheter placement for pain relief and/or lubrication, Starting on Tue07/04/24 at 1541, Administer 3-5 mL for females and 5-10mL for males as needed for anesthetic effect prior to procedure Strongly recommend utilizing Coud tipped catheter and PRN Urojet for patients with a prostate age 50 and older. melatonin tablet 6 mg 6 mg, Oral, HS PRN, Sleep, Starting on Tue07/04/24 at 1542, Until Tue07/13/24 at 1224 ondansetron (ZOFRAN) tablet 4 mg 4 mg, Oral, Q8H PRN, Nausea, Vomiting, Starting on Tue07/04/24 at 2136, Until Tue07/13/24 at 1224, Indications: Nausea and Vomiting oxyCODONE (ROXICODONE) immediate release tablet 5 mg 5 mg, Oral, BID PRN, Pain, Starting on Tue07/04/24 at 1542, Until Tue07/13/24 at 1224, Give PO opioid if able to take PO and pain not well controlled with other medications or interventions. 165 (Given - Provider: Shagufta Strauss RN) traZODone (DESYREL) tablet 50 mg 50 mg, Oral, HS PRN, Sleep, Starting on Tue07/04/24 at 1542, Until Tue07/13/24 at 1224 1951 (Given - Provider: Dhara Culp RN) Linked Groups Order Group 1: polyethylene glycol (MIRALAX) oral powder 17 gJump to med 17 g, Oral, DAILY, First dose (after last modification) on Milagros 07/05/24 at 0800, Until Discontinued, May give BID dose as needed if not meeting stool goal And bisacodyl (DULCOLAX) rectal suppository 10 mgJump to med 10 mg, Rectal, DAILY PRN, Constipation, No stool in the last 3 days, Starting on Tue07/04/24 at 1541, Until Tue07/13/24 at 1224, Cumulative bowel medication orders. Administer based on medications available on APR. If no stool in last day start Senna BID PRN no stool, if no stool in last 2 days add Miralax DAILY PRN no stool, if no stool in last 3 days add bisacodyl suppository DAILY PRN until patient stools. When patient stools, stop giving PRN meds and continue monitoring for bowel activity. When no stools X 1 day, begin regimen again until patient stools. Do not give if Absolute Neutrophil Count (ANC) is 1 k/cmm or less OR platelet count is 50 k/cmm or less. documented in this encounter Care Teams Pharmacy Intake Technician Relationship Specialty Start Date End Date Eliana Guerra MD [address] [place] [address] PCP - General Family Practice 12/04/19 documented as of this encounter
--- OUTSIDE RECORDS SUMMARY | 2024-07-13 08:53 | XMS_ITS | Continuity of Care Document ---
Author Organization [facility] Address [address] [address] [place] [address] Phone Care Team Providers Care Solid Waste Disposal Manager Name Role Phone [place] GAS ANALYST, Jody Unavailable Unavailable Allergies, Adverse Reactions, Alerts [...] Diagnoses Date Provider Providers Copied on Encounter [facility] [place], [address] [address], [place], [address], [place] tel:[phone] [facility] No Information 5 [place] GAS ANALYST Jody. [address] [place] [address], [facility] 500, [place], [address] , [place]. tel: [phone] Established Level 4 [facility] [place], [address] [address], [place], [address], [place] tel:[phone] [facility] GI Symptoms or Concerns (chief complaint) Previous History Review (chief complaint) Esophageal dysphagiaIntracta ble nausea and vomitingGastrojej unal (GJ) tube in place 5 [place] GAS ANALYST Jody. [address] [facility], [address], [place], [address] , [place]. tel:[phone] Referring Provider: Referral Self, USE FOR SELF REFERRALS. [facility] [place], [address] [address], [place], [address], [place] tel:[phone] [facility] GI Symptoms or Concerns (chief complaint) No Information 5 [place] GAS ANALYST Jody. [address] [facility], [address], [place], [place], [address] , [place]. tel: [phone] [facility] [place], [address] [address], [place], [address], [place] tel:[phone] [facility] Gastrojejunal (GJ) tube in place [place] GAS ANALYST Jody. [address] [facility], [address], [place], [place], [address] , [place]. tel: [phone] Offic/outpt E&m Estab Mod-hi 2 [facility] [place], [address] [address], [place], [address], [place] tel:[phone] [facility] GI Symptoms or Concerns (chief complaint) Intractable nausea and vomitingUnintenti onal weight lossKlinefelter syndromeGastrojej unal (GJ) tube in place [place] GAS ANALYST Jody. [address] [facility], [address], [facility] [place], [address] , [place]. tel: [phone] Referring Provider: Referral Self, USE FOR SELF REFERRALS. Subsqt Hosp-da E&m Minr Compl [facility] [place], [address] [address], [facility] [place], [address], [place] tel:[phone] [facility] No Information 5 Edstrom [place] Cody. [address] [facility], [address], [place], [place], [address] , [place]. tel: [phone] Referring Provider: Nabila PANDYA, [facility] [address], [facility], [address] . tel:[phone] Subsqt Hosp-da E&m Minr Compl [facility] [place], [address] [address], [facility] [place], [address], [place] tel:[phone] [facility] No Information Decelles [place] Rogers. [address] [facility], [address], [place], [place], [address] , [place]. tel: [phone] Referring Provider: Nabila PANDYA, [facility] [address], [facility] [place], [address] . tel:[phone] [facility], [address] [address], [place], [address], [place] tel:[phone] [facility] Unintentional weight lossIntractable nausea and vomiting 5 Rachel Roy . [address] [facility], [address], [place], [address] , [place]. tel: [phone] Init Inpt Cons New/est Mod-hi [facility], [address] [address], [place], [address], [place] tel:[phone] [facility] No Information 5 Rachel Roy . [address] [facility], [address], [place], [address] , [place]. tel: [phone] Referring Provider: Nabila PANDYA, [address] [facility] [address], [place], [address] . tel:[phone] [facility] 5 [facility], [address] [address], [place], [address], [place] tel:[phone] [facility] GI Symptoms or Concerns (chief complaint) Klinefelter syndromeEsophagea l dysphagiaIntracta ble nausea and vomitingUnintenti onal weight loss 5 Belinda John. [address] [facility], [facility] 500, [place], [address] , [place]. tel: [phone] Referring Provider: Referral Self, USE FOR SELF REFERRALS. [facility], [address] [address], [place], [address], [place] tel:[phone] [facility] No Information 4 Irineo Godwin. [address] [facility], [address], [place], [address] , [place]. tel: [phone] Family History Family Member Type Diagnosis Age [...] Registry Payers Payer name Insurance type Covered alliance party ID Authoriza tion(s) No Information Social [...] is a 24-year-old male who presents to [facility] clinic for follow-up on nausea, vomiting, and [...] went to the emergency department yesterday as [place] Chelsey, and had blood work that showed [...] will and he does not have a information technology auditor in his car therefore I was not able to obtain more history and proceeded with the recommendations. Functional Status Date Functional Assessmen t No Information Instructions Date Instruction Additional Infor rufus 1. Continue Reglan a s you are doing and continue to watch for side effects.2. I will get a message to [facility] to see if they have assigned [...] reach me via patient portal or at [phone] extension 2935. Related to Intractable nausea and vomiting Recommended to repor t to the ER at [facility] in [place] which is the second closest hospital to him as he was discharged home from [facility] yesterday.I contacted the hospital ER and and [...]
--- OUTSIDE RECORDS SUMMARY | 2024-07-13 08:53 | XMS_ITS | Continuity of Care Document ---
Author Organization [facility] Address [address] [address] [place] [address] Phone Care Team Providers Care Fish Header Name Role Phone [place] SUPERVISOR CARDING, Jody Unavailable Unavailable Allergies, Adverse Reactions, Alerts [...] Diagnoses Date Provider Providers Copied on Encounter [facility] [place], [address] [address], [place], [address], [place] tel:[phone] [facility] No Information 5 Obregon SUPERVISOR CARDING Jody. [address] [place] [address], [facility] [address], [place], [address] , [place]. tel: [phone] Established Level 4 [facility] [place], [address] [address], [place], [address], [place] tel:[phone] [facility] GI Symptoms or Concerns (chief complaint) Previous History Review (chief complaint) Esophageal dysphagiaIntracta ble nausea and vomitingGastrojej unal (GJ) tube in place 5 [place] SUPERVISOR CARDING Jody. [address] [facility], [address], [place], [address] , [place]. tel:[phone] Referring Provider: Referral Self, USE FOR SELF REFERRALS. [facility] [place], [address] [address], [place], [address], [place] tel:[phone] [facility] GI Symptoms or Concerns (chief complaint) No Information 5 [place] SUPERVISOR CARDING Jody. [address] [facility], [address], [place], [place], [address] , [place]. tel: [phone] [facility] [place], [address] [address], [place], [address], [place] tel:[phone] [facility] Gastrojejunal (GJ) tube in place Ob[place] SUPERVISOR CARDING Jody. [address] [facility], [address], [place], [place], [address] , [place]. tel: [phone] Offic/outpt E&m Estab Mod-hi 2 [facility] [place], [address] [address], [place], [address], [place] tel:[phone] [facility] GI Symptoms or Concerns (chief complaint) Intractable nausea and vomitingUnintenti onal weight lossKlinefelter syndromeGastrojej unal (GJ) tube in place [place] SUPERVISOR CARDING Jody. [address] [facility], [address], [facility] [place], [address] , [place]. tel: [phone] Referring Provider: Referral Self, USE FOR SELF REFERRALS. Subsqt Hosp-da E&m Minr Compl [facility] [place], [address] [address], [facility] [place], [address], [place] tel:[phone] [facility] No Information 5 Edstrom [place] Cody. [address] [facility], [address], [place], [place], [address] , [place]. tel: [phone] Referring Provider: Nabila PANDYA, [facility] [address], [facility] [place], [address] . tel:[phone] Subsqt Hosp-da E&m Minr Compl [facility] [place], [address] [address], [facility] [place], [address], [place] tel:[phone] [facility] No Information Decelles [place] Rogers. [address] [facility], [address], [place], [place], [address] , [place]. tel: [phone] Referring Provider: Nabila PANDYA, [facility] [address], [place], [address] . tel:[phone] [facility], [address] [address], [place], [address], [place] tel:[phone] [facility] Unintentional weight lossIntractable nausea and vomiting 5 Rachel Roy . [address] [facility], [address], [place], [address] , [place]. tel: [phone] Init Inpt Cons New/est Mod-hi [facility], [address] [address], [place], [address], [place] tel:[phone] [facility] No Information 5 Rachel Roy . [address] [facility], [address], [place], [address] , [place]. tel: [phone] Referring Provider: Nabila PANDYA, [address] [facility] 500, [place], [address] . tel:[phone] [facility] 5 [facility], [address] [address], [place], [address], [place] tel:[phone] [facility] GI Symptoms or Concerns (chief complaint) Klinefelter syndromeEsophagea l dysphagiaIntracta ble nausea and vomitingUnintenti onal weight loss 5 Belinda John. [address] [facility], [facility], [place], [address] , [place]. tel: [phone] Referring Provider: Referral Self, USE FOR SELF REFERRALS. [facility], [address] [address], [place], [address], [place] tel:[phone] [facility] No Information 4 Irineo Godwin. [address] [facility], [address], [place], [address] , [place]. tel: [phone] Family History Family Member Type Diagnosis Age [...] Registry Payers Payer name Insurance type Covered republican ID Authoriza tion(s) No Information Social History [...] is a 24-year-old male who presents to [facility] clinic for follow-up on nausea, vomiting, [...] went to the emergency department yesterday as [place] Chelsey, and had blood work that showed [...] will and he does not have a food general manager in his car therefore I was not able to obtain more history and proceeded with the recommendations. Functional Status Date Functional Assessmen t No Information Instructions Date Instruction Additional Infor rufus 1. Continue Reglan a s you are doing and continue to watch for side effects.2. I will get a message to [facility] to see if they have assigned [...] reach me via patient portal or at [phone] extension 2935. Related to Intractable nausea and vomiting Recommended to repor t to the ER at [facility] in [place] which is the second closest hospital to him as he was discharged home from [facility] yesterday.I contacted the hospital ER and and [...]
--- OUTSIDE RECORDS SUMMARY | 2024-07-23 09:35 | XMS_ITS | Encounter Summary ---
Author Organization [facility] Address [address], [place] [address] Care Team Providers Care Commercial Lines Account Manager Name Role Phone Eliana Guerra MD Primary Care Provider [phone] Reason for Visit * Procedure/Equipment (Routine) - Incomplete Specialty Diagnoses / Procedures Referred By Contac t Referred To Contact Diagnoses Bilateral hip pain Procedures XR Pelvis Bilat Hips 2+ Views Nilay Ceron MD [address] [facility] [place] [address] Phone: tel: fax: Referral ID Status Reason Start Date Expiration Date V isits Requested Visits Authorized [id number] Incomplete 06/11/2024 09/10/2025 1 1 Encounter Details Date Type Department Care Team (Late st Contact Info) Description 07/23/2024 9:35 AM CDT Ancillary Procedure [facility] [address] Radiology [address] [facility]. [place], [place] [id number] Nilay Ceron MD [address] [facility] [place] [id number] Bilateral hip pain Social History Tobacco Use Types Packs/Day Years Used Date Smoking Tobacco: Never Smokeless Tobacco: Never [facility] Utilities Answer Date Recorded In the past 12 months has [facility] electric, gas, oil, or water company threatened [...] any time in the past 12 m [facility], were you homeless or living in a care home (including now)? 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 [place] [address] Nilay Ceron MD [address] [facility] [place] [address] documented as of this encounter Procedures Procedure Name Priority Date/Time Associated Diagnosis Comments XR PELVIS BILAT HIPS 2+ VIEWS Routine 07/23/2024 9:50 AM CDT Bilateral hip pain documented in this encounter Results * XR Pelvis Bilat Hips 2+ Views (07/23/2024 9:50 AM CDT) Anatomical Region Laterality Modality Pelvis, Hip Computed Radiogr aphy 07/23/2024 9:50 AM CDT Narrative 07/23/2024 11:19 AM CDT EXAM: XR PELVIS BILAT HIPS 2+ VIEWS LOCATION: [facility] [place] 435 DATE: 07/23/2024 INDICATION: Bilateral hip pain, Pain in right hip, Pain in left hip COMPARISON: None. IMPRESSION: Tiny bilateral acetabular osteophytes. Hip joint spaces are preserved. No acute fracture or dislocation. Procedure Note Marino Ryan MD - 07/23/2024 EXAM: XR PELVIS BILAT HIPS 2+ VIEWS LOCATION: [facility] 435 DATE: 07/23/2024 INDICATION: Bilateral hip pain, Pain in right hip, Pain in left hip COMPARISON: None. IMPRESSION: Tiny bilateral acetabular osteophytes. Hip joint spaces arepreserved. No acute fracture or dislocation. us Nilay Ceron MD RAD GD Final Result documented in this encounter Visit Diagnoses Diagnosis Bilateral hip pain Pain in joint, pelvic region and thigh documented in this encounter Care Teams Commercial Lines Account Manager Relationship Specialty Start Date End Date Eliana Guerra MD [address] [place] [address] PCP - General Family Practice 12/04/19 documented as of this encounter
--- OUTSIDE RECORDS SUMMARY | 2024-07-23 09:50 | XMS_ITS | Encounter Summary ---
Author Organization [facility] Address [address], [place] [address] Care Team Providers Care Property Investor Name Role Phone Eliana Guerra MD Primary Care Provider [phone] Reason for Visit * Reason Comments CONSULT Bilateral hips * Consult/Transfer Care (Routine) - New Request Specialty Diagnoses / Procedures Referred By Ye lund Referred To Contact Diagnoses Aftercare following surgery of the musculoskeletal system Anahi Van MD [address] [place] [address] Phone: tel: fax: Referral ID Status Reason Start Date Expiration Date V isits Requested Visits Authorized [id number] New Request 2024 08/08/2025 1 1 Encounter Details Date Type Department Care Team ([facility] st Contact Info) Description 07/23/2024 9:50 AM CDT Office Visit Orthopedics at [address] [address] Nilay Ceron MD [address] [facility] [address] [place] [id number] Bilateral hip pain (Primary Dx) Social History Tobacco Use Types Packs/Day Years Used Date Smoking Tobacco: Never Smokeless Tobacco: Never Tobacco Cessation:Counseling Given: Not Answered [facility] Utilities Answer Date [...] No 07/04/2024 Housing Stability Vital Sign Answer Tro e Recorded In the last 12 months, was t here a time when you were not able to pay the mortgage or rent on time? No 07/04/2024 In the past 12 months, how m any times have you moved where you were living? 0 07/04/2024 At any time in the past 12 m ont, were you homeless or living in a retirement (including now)? 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 (OK to use consult.) X-Rays: X-rays are not needed at your next appointment We will see you again on: [] no x-rays [] w/ x-ray arrive at: Please come to this same location, [address] [place] [address] 3rd [facility] Appt notes: F/U Bilateral hips If you have an urgent question or concern for your provider and it is after 5pm, on a weekend, or aholiday you can call the nurse care line at [phone]. If you need information about the cost of care you received today, or about an upcoming visit or surgery please call the cost of care line at [phone]. If you need forms completed for work, short term/char puller disability, FMLA, or school: Please bring any forms to our clinic at [address] [place] [address] as soon as you receive them. It is recommended to bring these forms to the clinic prior to surgery and not on the to the hospital on the day of surgery. You may give these forms to our 3rd floor check-in staff You can also fax them to us at [facility], Attention: Hide Sorter, Fax- [phone] Be sure to complete the patient portion [...] will need to sign a form authorizing [facility] to release this information. For additional questions regarding forms, or if you need a letter for work/school, please contact the clinic at [phone] You may receive a survey in the mail regarding your visit today. Your feedback is very important tous, please take a moment to complete the survey which is completely anonymous. If you would like tospeak to someone specifically, you may contact the clinic at [phone] and your call will be directed to someone on our leadership team. Thank you for choosing Nilay Ceron MD and [facility] Orthopa[facility]ics [facility] Medicine. documented in this encounter Progress Notes * Nilay Ceron MD - 07/23/2024 9:50 AM CDT SUMMARY OF CLINICAL VISIT DIAGNOSIS: Bilateral acetabular dysplasia, s/p right hip arthroscopy done at the [facility] with persistent symptoms PLAN AND DISPOSITION: Discussed revision hip arthroscopy/GUILLERMO vs total hip arthroplasty for right hip. Patient will follow up to discuss further after I contact the other surgeons he has seen. IMAGING FOR NEXT VISIT: None needed CHIEF COMPLAINT: Bilateral hip pain HISTORY OF PRESENT ILLNESS: This is a generally healthy 24 y.o. male who I am seeing in consultation requested by Dr. Anahi Van. History is obtained from the patient. Briefly, they report that he had undergone a right hip arthroscopy with Dr. Haines at [place]. He has had persistent pain and instability. He was seen at [place] by Dr. Talbert and was spica casted which transiently alleviated his symptoms. He was also seen by my colleague Dr. Heath at [place] who had discussed a GUILLERMO but was not ultimately reccomended. He presents today for another opinion. When specifically asked to describe the pain in detail, the patient reports the following: Pain duration: As above Initial onset: As above The pain is located primarily in the anterior/groin region of the hip. The pain is rated as 5 on a 0 to 10 numeric VAS scale. Pain is described as a aching type of pain and reports instability The patient reports that sitting sometimes worsens the pain. Pain is worse with standing longs periods of time. Walking aggravates the pain. Pain is sometimes relieved by rest. The patient reports that clicking and popping is not associated with pain. The patient denies associated weakness and irradiation to the lower extremities. There is no associated lower back pain. Previous treatment includes Spica casting, extensive physical therapy without lasting success. REVIEW OF SYSTEMS Constitutional: no history of recent fever, recent weight loss or chills. HEENT: Negative Respiratory: No dyspnea Cardiovascular: No symptoms Gastrointestinal: Denies diarrhea or vomiting Genitourinary: Negative Endocrine: Negative Integumentary: Negative for the presence of rashes Hematologic/Lymphatic: Negative Neurologic: No complaints Psychiatric: No complaints PHYSICAL EXAMINATION: On physical examination, the patient appears to be generally healthy, well developed, well-nourished and in no acute distress. The patient is alert, oriented x3 and is cooperative to examination withpreserved mood. Head normocephalic and non-traumatic. Eyes have normal sclerae, anicteric, outer ear and nose have no apparent deformity. The oral mucous membranes are moist. Neck is supple with no obvious mass or deformity and has full range of active motion. There is no lymphadenopathy. Chest expansion is normal and the patient is breathing with regular rhythm without respiratory effort. The abdomen feels soft, and it is not tender to palpation. Peripheral radial and pedal pulses are symmetric with regular rate and rhythm and capillary perfusion is under 2 seconds in both hands and feet andno swelling. The skin is intact, normal temperature and turgor in the right and left upper and lower extremities with no visible rash or ulcer. Musculoskeletal: On stance, the lower extremity alignment is within normal limits. The spinal alignment is straight. The pelvis is leveled and there is no major lower limb length discrepancy. Upper extremity exam is unremarkable. I did not notice contractures or deformities and there is full stablerange of motion and intact motor function of the shoulders, elbows, wrists and hands bilaterally. Knees and ankle evaluation is overall within normal limits with no major deformity and stable active normal motion. Straight-leg raising test is normal bilaterally without eliciting pain. Neurologic evaluation of the lower extremities reveals intact sensation to light touch in both legs and feet and n ormal (5/5) active muscle function for hip flexion, abduction, extension and knee extension and flexion. Patellar tendon reflex is brisk and within normal limits bilaterally. Gait: The patient uses no assistive device. The gait evaluation reveals normal gait pattern withouta limp. Foot progression angle is within normal limits. The patella is aligned. RIGHT HIP EXAM Flexion: 120 degrees Internal rotation at 90o of flexion: 25 degrees External rotation at 90o of flexion: 45 degrees Abduction: 30 degrees Anterior impingement test: positive Posterior impingement test: negative Apprehension test: Positive Stinchfield (resisted flexion) test: positive Provocative snapping hip: negative Trendelenburg: negative Edgar test: negative TTP over tensor fascia tom LEFT HIP EXAM Flexion: 120 degrees Internal rotation at 90o of flexion: 25 degrees External rotation at 90o of flexion: 45 degrees Abduction: 45 degrees Anterior impingement test: Positive Posterior impingement test: negative Apprehension test: Positive Stinchfield (resisted flexion) test: positive Provocative snapping hip: negative Trendelenburg: negative Edgar test: negative Imaging: AP pelvis, bilateral false profile and bilateral modified martínez hip films reviewed by me today. These demonstrate no fracture or dislocation, no significant joint space narrowing. Bilateral decreased acetabular coverage. IMPRESSION: Bilateral acetabular dysplasia, s/p right hip arthroscopy done at the [facility] with persistent symptoms Suggested Diagnostic/Therapeutic Plan: We reviewed the patient's imaging, physical exam and history findings in full detail. I discussed that I believe the results of hip preservation surgery would be variable given his chondral wear, I did explain that I believe the most reliable operation for him to be a hip replacement. I informed him that I would reach out to the surgeons that previously saw him (with his verbal permission) to discuss his case. He will follow up in 2 weeks for further discussion. A total of 40 minutes was spent on this visit in reviewing the chart, interpreting images, seeing and evaluating the patient, discussing treatment, coordinating care, and completing documentation. Nilay Ceron MD documented in this encounter Plan of Treatment Upcoming Encounters Date Type Department Care Team (Late st Contact Info) Description 09/17/2024 10:10 AM CDT Appointment Orthopedics at [facility] [address] [place] [address] Nilay Ceron MD [address] [facility] [place] [address] Scheduled Referrals Name Type Priority Associated Diagnoses Orde r Schedule Orthopaedic Consult Adult/Peds Referral Routine Aftercare following surgery of the musculoskeletal system Ordered: 2024 documented as of this encounter Visit Diagnoses Diagnosis Bilateral hip pain- Primary Pain in joint, pelvic region and thigh documented in this encounter Care Teams Property Investor Relationship Specialty Start Date End Date Eliana Guerra MD [address] [place] [address] PCP - General Family Practice 12/04/19 documented as of this encounter
--- OUTSIDE RECORDS SUMMARY | 2024-07-24 11:40 | XMS_ITS | Encounter Summary ---
Author Organization [facility] Address [address] [place] [address] Care Team Providers Care Barrel Cleaner Name Role Phone Eliana Guerra MD Primary Care Provider [phone] Reason for Visit * Reason Comments Forms/Letter Entered automaticall y based on patient selection in [employer]. Encounter Details Date Type Department Care Team (Late st Contact Info) Description 07/24/2024 11:40 AM CDT E-Visit Orthopedics at [address] [address] Nilay Ceron MD [address] [place] [address] Chief Comp: Forms/Letter Social History Tobacco Use Types Packs/Day Years Used Date Smoking Tobacco: Never Smokeless Tobacco: Never [facility] Utilities Answer Date Recorded In the past 12 months has [employer], gas, oil, or water [employer] threatened to shut off services in your [...] any time in the past 12 m [facility], were you homeless or living in a care home (including now)? No 07/04/2024 Sex and Gender Information Value Date Recorded Sex Assigned at Not on file Legal Sex Male 5:33 PM PHARM SPEC Gender Identity Not on file Sexual Orientation Not on file documented as of this encounter Nursing Notes * Addy Saxena - 07/24/2024 1:33 PM CDT Called Paramjit and discussed letter. Letter was created and sent to [facility]. Patient was agreeable tothis and was appreciative of the call. Addy Saxena 07/24/2024 1:34 PM documented in this encounter Plan of Treatment Upcoming Encounters Date Type Department Care Team (Late st Contact Info) Description 09/17/2024 10:10 AM CDT Appointment Orthopedics at [address] [place] [address] Nilay Ceron MD [address] [facility] [place] [address] documented as of this encounter Visit Diagnoses Not on filedocumented in this encounter Care Teams Barrel Cleaner Relationship Specialty Start Date End Date Eliana Guerra MD [address] [place] [address] PCP - General Family Practice 12/04/19 documented as of this encounter
--- OUTSIDE RECORDS SUMMARY | 2024-08-06 08:50 | XMS_ITS | Encounter Summary ---
Author [facility] Address [address] [place] [address] Care Team Providers Care Slot Attendant Name Role Phone Eliana Guerra MD Primary Care Provider [phone] Reason for Referral * Procedure/Equipment (Routine) - New Request Specialty Diagnoses / Procedures Referred By Contac t Referred To Contact Diagnoses Bilateral hip pain Femoroacetabular impingement of right hip Nilay Ceron MD [address] [place] [address] Phone: tel: fax: Referral ID Status Reason Start Date Expiration Date V isits Requested Visits Authorized [id number] New Request 08/06/2024 02/02/2025 1 1 Scheduling Instructions If scheduling assistance is needed, please inquire with the medical office staff upon exiting your appointment or contact the ordering clinic for recommended locations. This recommended service/s may not be covered by your insurance coverage. To find out your specific benefit coverage, please call the number on your insurance card. [facility] MAIN LOCATIONS: [facility] [address] [facility] [address] [facility], [address] [place] [address] - Toll Free: [phone] - [address], [address] - [place] [address] - Toll Free: [phone] - [address] [address] - Toll Free: [phone] - d [facility] Tuesdays [address] [place] [address] - [facility] [address] [place] [address] - [facility] ([facility] Tuesday - Tuesday [address] 3rd [place] [address] - [facility] and [address] [place] [address] - [facility] - PT DEPARTMENT ([place], [place]) Tuesdays [address] [place] [address] - Phone: [facility] [address] [place] [address] - Phone: [facility] ([place], [place]) [address] [place] [address] - Phone: [facility] Tuesday Specialty Clinic Main Floor [address] [place] [address] - Phone: Question Answer Direct patient to which orthotic vendor? [facility] needed? Other (Please Comment) - post op hip brace per Dr. Ceron Orthotics diagnosis? R MARLENI Comments Locked at 30 degrees flexion Reason for Visit * Reason Comments Follow-up Encounter Details Date Type Department Care Team (Late st Contact Info) Description 08/06/2024 8:50 AM CDT Office Visit Orthopedics at [facility] [address] [place] [address] Nilay Ceron MD [address] [facility] [place] [address] Bilateral hip pain (Primary Dx); Femoroacetabular impingement of left hip; Femoroacetabular impingement of right hip Social History Tobacco Use Types Packs/Day Years Used Date Smoking Tobacco: Never Smokeless Tobacco: Never [facility] Utilities Answer Date Recorded In the past 12 months has [facility] [employer], gas, oil, or water [employer] threatened to shut off services in your [...] any time in the past 12 m onths, were you homeless or living in a nursing home (including now)? 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 Follow up appointments: You will follow up with Nilay Ceron MD in 6 week(s). X-Rays: X-rays are not needed at your next appointment We will see you again on: [x] no x-rays [] w/ x-ray arrive at: Please come to this same location, [address] [place] [address] Appt notes: F/U Bilateral Hips If you have an urgent question or concern for your provider and it is after 5pm, on a weekend, or aholiday you can call the nurse care line at [phone]. If you need information about the cost of care you received today, or about an upcoming visit or surgery please call the cost of care line at [phone]. If you need forms completed for work, short term/penitentiary disability, FMLA, or school: Please bring any forms to our clinic at [address] [place] [address] as soon as you receive them. It is recommended to bring these forms to the clinic prior to surgery and not on the to the hospital on the day of surgery. You may give these forms to our 3rd floor check-in staff You can also fax them to us at [facility], Attention: Polysomnographic Technician, Fax- [phone] Be sure to complete the patient portion [...] to sign a form authorizing [facility] to release this information. For additional questions regarding forms, or if you need a letter for work/school, please contact the clinic at [phone] You may receive a survey in the mail regarding your visit today. Your feedback is very important tous, please take a moment to complete the survey which is completely anonymous. If you would like tospeak to someone specifically, you may contact the clinic at [phone] and your call will be directed to someone on our leadership team. Thank you for choosing Nilay Ceron MD and [facility] Orthopaedics & Sports Medicine. documented in this encounter Progress Notes * Nilay Ceron MD - 08/06/2024 8:50 AM CDT SUMMARY OF CLINICAL VISIT DIAGNOSIS: Bilateral acetabular dysplasia, s/p right hip arthroscopy done at the [facility] with persistent symptoms PLAN AND DISPOSITION: Discussed revision hip arthroscopy/GUILLERMO vs total hip arthroplasty for right hip. We will place his right hip in a brace for 6 weeks. He will follow up in 6 weeks for clinical re-evaluation. IMAGING FOR NEXT VISIT: None needed CHIEF COMPLAINT: Bilateral hip pain HISTORY OF PRESENT ILLNESS: This is a generally healthy 24 y.o. male who I am seeing in consultation requested by Dr. Anahi Van. History is obtained from the patient. Briefly, they report that he had undergone a right hip arthroscopy with Dr. Haines at [place]. He has had persistent pain and instability. He was seen at [place] by Dr. Talbert and was spica casted which transiently alleviated his symptoms. He was also seen by my colleague Dr. Haeth at [place] who had discussed a GUILLERMO but was [...] s/p right hip arthroscopy done at the [facility] with persistent symptoms Suggested Diagnostic/Therapeutic Plan: We reviewed the patient's imaging, physical exam and history findings in full detail. I discussed that I believe the results of hip preservation surgery would be variable given his chondral wear, I did explain that I believe the most reliable operation for him to be a hip replacement. We will bracehis right hip for 6 weeks as he has benefited from spica casting in the past. I expressed my concerns regarding spica casting in an adult and specifically to his situation. I will see him back in 6 weeks for clinical re-evaluation. A total of 40 minutes was spent on this visit in reviewing the chart, interpreting images, seeing and evaluating the patient, discussing treatment, coordinating care, and completing documentation. Nilay Ceron MD documented in this encounter Plan of Treatment Upcoming Encounters Date Type Department Care Team (Late st Contact Info) Description 09/17/2024 10:10 AM CDT Appointment Orthopedics at [address] 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
--- OUTSIDE RECORDS SUMMARY | 2024-08-15 08:45 | XMS_ITS | Encounter Summary ---
Author Organization [facility] Address [address], [place] [address] Care Team Providers Care Guide Dog Mobility Instructor Name Role Phone Eliana Guerra MD Primary Care Provider [phone] Reason for Visit * Procedure/Equipment (Routine) - Incomplete Specialty Diagnoses / Procedures Referred By Contac t Referred To Contact Diagnoses Aftercare following surgery of the musculoskeletal system Procedures XR Ankle Rt 3 Views Standing Anahi Van MD [address] [place] [address] Phone: tel: fax: Referral ID Status Reason Start Date Expiration Date V isits Requested Visits Authorized [id number] Incomplete 08/15/2024 11/14/2025 1 1 Encounter Details Date Type Department Care Team (Latest Contact Info) Description 08/15/2024 8:45 AM CDT Ancillary Procedure [facility] [address] Radiology [address] [place], [place] [id number] Anahi Van MD [address] [place] [address] Aftercare following surgery of the musculoskeletal system Social History Tobacco Use Types Packs/Day Years Used Date Smoking Tobacco: Never Smokeless Tobacco: Never [facility] Utilities Answer Date [...] any time in the past 12 m [facility], were you homeless or living in a senior living (including now)? 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 [place] [address] Nilay Ceron MD [address] [facility] [place] [address] documented as of this encounter Procedures Procedure Name Priority Date/Time Associated Diagnosis Comments XR ANKLE RT 3 VIEWS STANDING Routine 08/15/2024 9:00 AM CDT Aftercare following surgery of the musculoskeletal system documented in this encounter Results * XR Ankle Rt 3 Views Standing (08/15/2024 9:00 AM CDT) Anatomical Region Laterality Modality Lower Extremity, Ankle, Foot & Ankle Computed Radiography 08/15/2024 9:00 AM CDT Narrative 08/16/2024 10:43 AM CDT EXAM: XR ANKLE RT 3 VIEWS STANDING LOCATION: [place] [address] DATE: 08/15/2024 INDICATION: EXCISION EXOSTOSIS ANKLE (Right), Encounter for other orthopedic aftercare, POST-OP COMPARISON: 06/06/2024. IMPRESSION: Postoperative findings of the distal fibula. Progressive healing of the distal fibular osteotomy, with prior linear osteotomy line remaining faintly visible. There is a chronic appearing ossicle at the medial fibular tip measuring 5 mm, not significantly changed. Ankle mortise alignment is preserved. Procedure Note Addy Lang MD - 08/16/2024 EXAM: XR ANKLE RT 3 VIEWS STANDING LOCATION: [facility] 435 DATE: 08/15/2024 INDICATION: EXCISION EXOSTOSIS ANKLE (Right), Encounter for otherorthopedic aftercare, POST-OP COMPARISON: 06/06/2024. IMPRESSION: Postoperative findings of the distal fibula. Progressivehealing of the distal fibular osteotomy, with prior linear osteotomy lineremaining faintly visible. There is a chronic appearing ossicle at themedial fibular tip measuring 5 mm, not significantly changed. Anklemortise alignment is preserved. us Anahi Van MD RAD GD Final Result documented in this encounter Visit Diagnoses Diagnosis Aftercare following surgery of the musculoskeletal system Aftercare following surgery of the musculoskeletal system, NEC documented in this encounter Care Teams Guide Dog Mobility Instructor Relationship Specialty Start Date End Date Eliana Guerra MD [address] [place] [address] PCP - General Family Practice 12/04/19 documented as of this encounter
--- OUTSIDE RECORDS SUMMARY | 2024-08-15 09:00 | XMS_ITS | Encounter Summary ---
Author Organization [employer] Address [address] [address] Care Team Providers Care Hydrogen Cell Tender Name Role Phone Eliana Guerra MD Primary Care Provider [phone] Reason for Referral * Consult/Transfer Care (Routine) - New Request Specialty Diagnoses / Procedures Referred By Ye lund Referred To Contact Diagnoses Peroneal tendinitis of right lower extremity Anahi Van MD [address] [place] [address] Phone: tel: fax: Referral ID Status Reason Start Date Expiration Date V isits Requested Visits Authorized [id number] New Request 08/15/2024 11/14/2025 1 1 Scheduling Instructions Your clinician has [facility]. You can quickly make your appointment online at [employer]/schedule. You can also call [phone] for help scheduling your appointment. We suggest you call your health insurance company about your coverage and benefits for this appointment. Question Answer Appointment Urgency? Non-Urgent Reason for visit? kamari guerrero; complex MSK issues, back pain and weakness/instability - previous admit to rehab unit Comments Please eval and assume care for the non-surgical complexity of his MSK issues along with some level of neurologic weakness (no clear etiology) * Therapies (Routine) - New Request Specialty Diagnoses / Procedures Referred By Ye lund Referred To Contact Diagnoses Peroneal tendinitis of right lower extremity Anahi Van MD [address] [place] [address] Phone: tel: fax: Referral ID Status Reason Start Date Expiration Date V isits Requested Visits Authorized [id number] New Request 08/15/2024 08/15/2025 1 1 Scheduling Instructions This order is your clinician's [...] clinician's staff to assist you. Question Answer Requested Services? TREAT, REFERRAL RFV/Clin Data bilateral ankle weakness, peroneal tendinitis, kamari danlos Appointment Within 2 Weeks ORTHO ONLY/Frequency of TX 2X/WEEK, 3X/WEEK - for 6-8 weeks ORTHO ONLY/Modialities PRN - to decrease pain and inflammation ORTHO ONLY/Procedure requested GAIT TRAINING, MANUAL THERAPIES, MOBILITY TRAINING ORTHO ONLY/Exercise requested? AROM, AAROM, STRENGTHENING, PROPRIOCEPTION/BALANCE, OTHER - flexibility Comments Please work on total ankle strengthening, with strong focus on peroneals and posterior tibial tendon, open chain with progression to closed chain and then balance/proprioception. Also modalities and stretching/strengthening for achilles on RIGHT. Has Kamari Danlos complex so soft tissues are not reliable and desire is to LIMIT excess motion and instability * Procedure/Equipment (Routine) - New Request Specialty Diagnoses / Procedures Referred By Ye t Referred To Contact Diagnoses Peroneal tendinitis of right lower extremity Anahi Van MD [address] [place] [address] Phone: tel: fax: Referral ID Status Reason Start Date Expiration Date V isits Requested Visits Authorized [id number] New Request 08/15/2024 02/11/2025 1 1 Scheduling Instructions If scheduling assistance is needed, please inquire with the medical office staff upon exiting your appointment or contact the ordering clinic for recommended locations. This recommended service/s may not be covered by your insurance coverage. To find out your specific benefit coverage, please call the number on your insurance card. [facility] MA[facility] LOCATIONS: [facility] [address], [address] - [place] [address] - Toll Free: [phone] - [facility] [address], [address] - [place] [address] - Toll Free: [phone] - [address] [address] - Toll Free: [phone] - d [facility] [place] Tuesdays [address] [place] [address] - [facility] [address] [place] [address] - [facility] Tuesday - Tuesday [address] [place] [address] - [facility] [place] and [address] [place] [address] - [facility] - PT DEPARTMENT ([place], [place]) Tuesdays [address] [place] [address] - Phone: [facility] [address] [place] [address] - Phone: [facility] ([place], [place]) [place] [address] - Phone: [facility] Tuesday Specialty Clinic Main Floor [address] [place] [address] - Phone: Question Answer Direct patient to which orthotic vendor? [facility] needed? Other (Please Comment) Comments Consider additional cushion/foam for support of the arch in bilateral AFOs * Procedure/Equipment (Routine) - Incomplete Specialty Diagnoses / Procedures Referred By Ye lund Referred To Contact Diagnoses Aftercare following surgery of the musculoskeletal system Procedures XR Ankle Rt 3 Views Standing Anahi Van MD [address] [place] [address] Phone: tel: fax: Referral ID Status Reason Start Date Expiration Date V isits Requested Visits Authorized [id number] Incomplete 08/15/2024 11/14/2025 1 1 Reason for Visit * Reason Comments POST-OP,EXAM Repair dislocation p eroneal tendons with fibular groove deepening and longus to brevis tenodesis, lengthening gastrocnemius, excision exostosis Right ankle 04/27/2024 * Consult/Transfer Care (Routine) - New Request Specialty Diagnoses / Procedures Referred By Ye lund Referred To Contact Diagnoses Peroneal tendinitis of right lower extremity Ramila Jacobs MD [address] [place] [address] Phone: tel: fax: Referral ID Status Reason Start Date Expiration Date V isits Requested Visits Authorized [id number] New Request 07/13/2024 10/12/2025 1 1 Encounter Details Date Type Department Care Team (Latest Contact Info) Description 08/15/2024 9:00 AM CDT Office Visit Orthopedics at [address] [place] [address] Anahi Van MD [address] [place] [address] Aftercare following surgery of the musculoskeletal system (Primary Dx); Peroneal tendinitis of right lower extremity Social History Tobacco Use Types Packs/Day Years Used Date Smoking Tobacco: Never Smokeless Tobacco: Never [facility] Utilities Answer Date Recorded In the past 12 months has th e [employer], gas, oil, or water Drivable threatened to shut off services in your [...] any time in the past 12 m [facility], were you homeless or living in a group home (including now)? 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 Gender Identity Not on file Sexual Orientation Not on file documented as of this encounter Patient Instructions * Patient Instructions* Virgil Szymanski, [facility] - 08/15/2024 9:00 AM CDT ORTHOPEDICS DEPARTMENT PHONE NUMBER: [phone] Reason for today's visit: POST-OP,EXAM (Repair dislocation peroneal tendons with fibular groove deepening and longus to brevis tenodesis, lengthening gastrocnemius, excision exostosis Right ankle 04/27/2024) Treatment plan: Weight Bearing: You may now weight bear as tolerated and follow through with orthotics via [facility]. Referral for Physical Medicine & Rehabilitation placed Physical Therapy: You should begin physical therapy and an order has been provided for you. If you will be receiving PT at a [facility], [facility], or [facility] location you should get a phone call in the next couple days to help you schedule your first appointment. If you don???t want to wait you can call the appointment line yourself at [phone] or make the appointment online from your MyChart. You are welcome to go to any location you choose, please note that if you want to go outside of [facility] you should bring the printed PT order to your first appointment so the therapist can see the instructions from your provider. You should also check with your insurance to make sure the location you would like to go is covered under your plan. Follow up appointments: You will follow up with Anahi Van MD in 2 month(s). X-Rays: X-rays are not needed at your next appointment We will see you again on: [x] no x-rays [] w/ x-ray arrive at: Please come to this same location, [address] [place] [address] 3rd Floor Appt notes: Follow up, Repair dislocation peroneal tendons with fibular groove deepening and longusto brevis tenodesis, lengthening gastrocnemius, excision exostosis Right ankle 04/27/2024 If you have an urgent question or concern for your provider and it is after 5pm, on a weekend, or aholiday you can call the nurse care line at [phone]. If you need information about the cost of care you received today, or about an upcoming visit or surgery please call the cost of care line at [phone]. If you need forms completed for work, short term/termite exterminator disability, FMLA, or school: Please bring any forms to our clinic at [address] [place] [address] as soon as you receive them. It is recommended to bring these forms to the clinic prior to surgery and not on the to the hospital on the day of surgery. You may give these forms to our 3rd floor check-in staff You can also fax them to us at [facility], Attention: [employer], Fax- [phone] Be sure to complete the patient portion [...] will need to sign a form authorizing [facility] to release this information. For additional questions regarding forms, or if you need a letter for work/school, please contact the clinic at [phone] If you have any questions about your visit, your symptoms, your medication, your test results or itis not clear what your diagnosis or treatment plan is please contact us at [phone] or send us a secure message via [employer]. You may receive a survey in the mail regarding your visit today. Your feedback is very important tous, please take a moment to complete the survey which is completely anonymous. If you would like tospeak to someone specifically, you may contact the clinic at [phone] and your call will be directed to someone on our leadership team. Thank you for choosing Anahi Van MD and [facility]opa[facility]ics [facility] Medicine. documented in this encounter Progress Notes * Anahi Van MD - 08/15/2024 9:00 AM CDT Date of Surgery: 04/27/2024 Pre-Operative Diagnosis: Peroneal tendinitis of right lower extremity Fibular avulsion fracture with subfibular ossicle Subluxation of the peroneal tendons equinus Procedure: Repair dislocation peroneal tendons with fibular groove deepening and longus to brevis tenodesis (Right) LENGTHENING GASTROCNEMIUS (Right) EXCISION EXOSTOSIS ANKLE (Right) Interim History: Paramjit Boyce is a 24 y.o. male who is now three-month out from his surgery. Last visit, patient was to weightbear as tolerated and custom AFOs. He has had a very complicated postsurgical recovery with new onset of generalized weakness as well as major issues with his overall medical conditions. He does note feeling good in his bilateral AFOs at present and is interested in starting some more focused physical therapy. He did discharge to inpatient rehab after being readmitted to the hospital with failure to thrive. He notes that since then he is getting better each day but is still very easily fatigued. The longerhe is upright the more weakness he feels he develops in his lower extremities. In general he notes mild occasional pain in the right ankle which feels stiffer than the left. He has had no recent episodes of any sense of tendon subluxation or dislocation. He also notes some soreness around both Achilles Physical Exam: Skin: Well-healed Neurovascular Exam: Bilateral lower extremities demonstrate altered sensation in almost all distributions but ongoing intact sensation to light touch With strength exam the muscles were quite shaky, but patient is able to give a 4/5 effort in all distributions including the peroneals bilaterally. This is not easily sustained however X-rays: 3 view weightbearing of the right ankle are reviewed today. My independent review of the imaging demonstrates no new irregularities. Evidence of the osteotomy of the distal fibula with no fracture. Impression: Three-month out from surgery doing reasonably well. Plan: I discussed with the patient that given his extremely complex medical situation and unusual musculoskeletal issues, I do think he would be best served by following with a physical medicine rehab doc that could look at his overall picture. This referral was placed. Additionally, I do believe he is best served by maintaining bilateral AFOs likely for a lifetime. He has had so many complications and issues with other treatments, that I would hate to see him go backwards by consideration of left- sided surgery any time in the near future. I will place physical therapy updated orders to work on strengthening of both lower extremities, predominantly in eversion. I will also ask them to work on Achilles stretching and strengthening as well as modalities as helpful. Follow up in 2 months with no new x-rays at that time. Weightbearing: As tolerated Cast/Brace: Bilateral AFOs Physical Therapy: Orders placed Follow up in 2 months. X-rays needed at the next visit: None The patient is happy with this plan and all questions are answered today. documented in this encounter Plan of Treatment Upcoming Encounters Date Type Department Care Team (Late st Contact Info) Description 09/17/2024 10:10 AM CDT Appointment Orthopedics at [address] [place] [address] Nilay Ceron MD [address] [facility] [place] [address] Scheduled Referrals Name Type Priority Associated Diagnoses Orde r Schedule [facility] Referral Routine Peroneal tendinitis of right lower extremity Ordered: 08/15/2024 Rehan PT Ankle/Foot Mobilization Referral Routine Peroneal tendinitis of right lower extremity Ordered: 08/15/2024 PHYSICAL MEDICINE & REHAB CONSULT-ADULT [[id number]] Referral Routine Peroneal tendinitis of right lower extremity Ordered: 08/15/2024 documented as of this encounter Results * XR Ankle Rt 3 Views Standing (08/15/2024 9:00 AM CDT) Anatomical Region Laterality Modality Lower Extremity, Ankle, Foot & Ankle Computed Radiography 08/15/2024 9:00 AM CDT Narrative 08/16/2024 10:43 AM CDT EXAM: XR ANKLE RT 3 VIEWS STANDING LOCATION: [facility] 435 DATE: 08/15/2024 INDICATION: EXCISION EXOSTOSIS ANKLE [...] XR ANKLE RT 3 VIEWS STANDING LOCATION: [facility] 435 DATE: 08/15/2024 INDICATION: EXCISION EXOSTOSIS ANKLE [...] following surgery of the musculoskeletal system, NEC Peroneal tendinitis of right lower extremity Other enthesopathy of ankle and tarsus Aftercare following surgery of the musculoskeletal system Aftercare following surgery of the musculoskeletal system, NEC documented in this encounter Care Teams Hydrogen Cell Tender Relationship Specialty Start Date End Date Eliana Guerra MD [address] [place] [address] PCP - General Family Practice 12/04/19 documented as of this encounter
--- OUTSIDE RECORDS SUMMARY | 2024-08-20 09:00 | XMS_ITS | Encounter Summary ---
Author Organization Formerly [facility], [facility] Address [address] [address] Care Team Providers Care Shipping/Receiving Manager Name Role Phone Eliana Guerra MD Primary Care Provider [phone] Reason for Visit * Reason Comments CONSULT pain Encounter Details Date Type Department Care Team (Latest Contact Info) Description 08/20/2024 9:00 AM CDT Office Visit [facility] Pain Management [address] [place] [address] Suzanne Crawford, DO [address] [place], [place] [phone] Neuropathic pain (Primary Dx); Chronic pain syndrome Social History Tobacco Use Types Packs/Day Years Used Date Smoking Tobacco: Never Smokeless Tobacco: Never Alcohol Use Standard Drinks/Week Comments Yes 0 (1 standard drink = 0.6 oz pur e alcohol) occasional [facility] Utilities Answer Date Recorded In the past 12 months has [employer], gas, oil, or water [employer] threatened to shut off services in your [...] any time in the past 12 m [facility], were you homeless or living in a skilled nursing (including now)? 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 Gender Identity Not on file Sexual Orientation Not on file documented as of this encounter Last Filed Vital Signs Vital Sign Reading Time Taken Comments Blood Pressure 125/90 08/20/2024 9:00 AM CDT Pulse 102 08/20/2024 9:00 AM CDT Temperature - - Respiratory Rate - - Oxygen Saturation - - Inhaled Oxygen Concentration - - Weight - - Height - - Body Mass Index - - documented in this encounter Patient Instructions * Patient Instructions* Suzanne Crawford, - 08/20/2024 9:00 AM CDT Pain Management Clinic After Visit Recommendations Hold on Flexeril and Valium Tizanidine 2 mg up to three times a day Placed order for EMG Order placed for PMR rehab Please access us online through Ribbit or call [phone] if any other questions or new concerns. documented in this encounter Progress Notes * Suzanne Crawford DO - 08/20/2024 9:00 AM CDTAddended by: SUZANNE CRAWFORD on: 08/21/2024 07:42 AM Modules accepted: Orders * Suzanne Crawford DO - 08/20/2024 9:00 AM CDT Pain Management Consultation Referring Provider: Dr. Doyle ref. provider found Chief Complaint Patient presents with CONSULT pain Subjective: Paramjit Boyce is a 24 y.o. male, h/o peroneal tendinitis of RLE, chronic back pain, crepitus of both TMJ joints on opening jaw, disorder of connective tissue, epigastric abdominal pain,Klinefelter's syndrome, musculoskeletal hypermobility, TMJ disorder, gastrostomy, Kamari-Danlos synd herson, neurogenic bowel and bladder, chronic pain syndrome. Pt presents to clinic today for evaluation of kaamri danlos; complex MSK issues, back pain and weakness/instability. Pt presents in wheelchair for ambulation. Today, the pt reports he's had chronic pain for a long time. Notes Fall in June causing increased weakness, spent 1 month in [place]. Has been wearing AFOs since then. Fell yesterday, felt same pop and notes increased weakness today. Reports he cannot walk at all currently. Pt reports he cannot function at his house right now. Only relief with back brace and laying flat. Was diagnosed with urinaryretention issues. Currently does self-catheterization. Has G-tube, going well. Took leftover hydrocodone this morning to be able to get up and come to this appointment. Prior yesterday's fall, was able to play sports such as pickleball with AFOs. Pain: whole spine, BLE Aggravating Factors: standing upright Alleviating Factors: back brace, laying flat Bladder: Urinary retention Past Surgery In Painful Region: ARABELLA procedure on 10/16/2017, ankle surgery Therapies: physical therapy at [facility] Pain Medications: Gabapentin 900 mg tid, Flexeril prn Mental Health: anxiety Imaging: EXAM: MR CERVICAL SPINE W/WO IV CONT, MR THORACIC SPINE W/WO IV CONT, MR LUMBAR SPINE W/WO IV CONT LOCATION: [facility] DATE/TIME: 06/21/2024 5:40 PM CDT IMPRESSION: CERVICAL SPINE MRI: 1. No acute findings. 2. Mild cervical spondylosis without significant central or foraminal stenosis. THORACIC SPINE MRI: 1. No acute findings. 2. Mild thoracic spondylosis without significant central or foraminal stenosis. LUMBAR SPINE MRI: 1. No acute findings. 2. Mild lumbar spondylosis without significant central or foraminal stenosis. 3. Chronic atrophy of the right iliopsoas muscles. No past medical history on file. No past surgical history on file. Current Outpatient Medications Medication Sig Dispense Refill acetaminophen (TYLENOL) 325 MG tablet Take 2 Tablets (650 mg) by mouth every 6 hours as needed. Indications: Pain 100 Tablet 11 bisacodyl (DULCOLAX) 10 MG suppository Unwrap and insert 1 Suppository (10 mg) rectally daily as needed for Constipation .No stool in the last 3 days. Indications: Constipation 30 Each 3 cyclobenzaprine (FLEXERIL) 5 MG tablet Take 1 Tablet (5 mg) by mouth three times a day as needed for Muscle Spasms. famotidine (PEPCID) 20 MG tablet Take 1 Tablet (20 mg) by mouth two times a day. Indications: Gastroesophageal Reflux Disease FLUoxetine (PROZAC) 20 MG capsule Take 1 Capsule (20 mg) by mouth daily. 90 Capsule 3 gabapentin (NEURONTIN) 300 MG capsule Take 3 Capsules (900 mg) by mouth three times a day. Indications: nerve pain 90 Capsule 3 ibuprofen (MOTRIN) 400 MG tablet Take 1 Tablet (400 mg) by mouth every 6 hours as needed for Pain (May be given with other analgesics). Indications: Pain 100 Tablet 11 loratadine (CLARITIN) 10 MG tablet Take 1 Tablet (10 mg) by mouth two times a day. metoclopramide (REGLAN) 5 MG tablet Take 1 Tablet (5 mg) by mouth three times daily before meals. Indications: Gastroesophageal Reflux Disease omeprazole (PRILOSEC OTC) 20 MG enteric coated tablet Take 1 Tablet (20 mg) by mouth two times a day. Indications: Gastroesophageal Reflux Disease polyethylene glycol 3350 (GLYCOLAX) 17 GM/SCOOP powder Take 17 g by mouth daily as needed. Fill to top of indicated section in lid (17 grams). Mix in 4 to 8 ounces of a beverage and drink as directed. Indications: Constipation tiZANidine (ZANAFLEX) 2 MG tablet Take 1 Tablet (2 mg) by mouth every 8 hours as needed. 60 Tablet 1 traZODone (DESYREL) 50 MG tablet Take 1 Tablet (50 mg) by mouth daily at bedtime. No current facility-administered medications for this visit. Allergies Allergen Reactions Other Other, see comments HAS AN ALLERGY TO SOME KIND OF SUGAR HAVING TESTING TO DETERMINE TYPE No family history on file. Social History Socioeconomic History Marital status: Single Tobacco Use Smoking status: Never Smokeless tobacco: Never Vaping Use Vaping status: Never Used Substance and Sexual Activity Alcohol use: Yes Comment: occasional Social Drivers of Health Tobacco Use: Low Risk (08/20/2024) Patient History Smoking Tobacco Use: Never Smokeless Tobacco Use: Never Alcohol Use: Not At Risk (2022) Received from [facility] AUDIT-C Frequency of Alcohol Consumption: 2-4 times a month Average Number of Drinks: 1 or 2 Frequency of Binge Drinking: Less than monthly Financial Resource Strain: Low Risk (05/15/2024) Received from [facility] Financial Resource Strain Difficulty of Paying Living Expenses: 3 Food Insecurity: No Food Insecurity (07/04/2024) Hunger Vital Sign Worried About Running Out of Food in the Last Year: Never true Ran Out of Food in the Last Year: Never true Recent Concern: Food Insecurity - Food Insecurity Present (05/29/2024) Received from [facility] Hunger Vital Sign Worried About Running Out of Food in the Last Year: Never true Ran Out of Food in the Last Year: Sometimes true Transportation Needs: No Transportation Needs (07/04/2024) PRAPARE - Transportation Lack of Transportation (Medical): No Lack of Transportation (Non-Medical): No Recent Concern: Transportation Needs - Unmet Transportation Needs (05/29/2024) Received from [facility] PRAPARE - Transportation Lack of Transportation (Medical): Yes Lack of Transportation (Non-Medical): Yes Physical Activity: Insufficiently Active (05/29/2024) Received from [facility] Exercise Vital Sign Days of Exercise per Week: 1 day Minutes of Exercise per Session: 10 min Stress: No Stress Concern Present (2022) Received from [facility] [employer] - Occupational Stress Questionnaire Feeling of Stress : Only a little Social Connections: Socially Isolated (05/15/2024) Received from [facility] Social Connections Do you often feel lonely or isolated from those around you?: 4 Depression: At risk (08/01/2024) Received from [facility] PHQ-2 PHQ-2 TOTAL SCORE: 6 Housing Stability: Low Risk (07/04/2024) Housing Stability Vital Sign Unable to Pay for Housing in the Last Year: No Number of Times Moved in the Last Year: 0 Homeless in the Last Year: No Utilities: Not At Risk (07/04/2024) [facility] Utilities Threatened with loss of utilities: No Depression: Medium Risk (07/07/2023) Received from [facility] Depression PHQ-9 Total Score (max 27): 5 Review of Systems: Constitutional: No further findings. Eyes: Otherwise normal. ENT: No changes in voice or swallowing. Respiratory: No shortness of breath. Cardiovascular: No palpitations or chest pain. Gastrointestinal: No abdominal discomfort or changes in bowel habits. Musculoskeletal: No other abnormalities. Skin: No significant changes. Neurological: As above without other additions. Psychiatric: As above without other additions. Objective: Filed Vitals: 08/20/24 0900 BP: (!) 125/90 Pulse: (!) 102 Examination: General: Well developed, well nourished. Psych: Alert and oriented, engaged, appropriate. Ears: Hearing intact. Respiratory: normal respiratory efforts. Musculoskeletal: 2/5 contraction, hip flexion, quad In w/c TLSO intact Assessment: Chronic pain syndrome H/o Kamari Danlos syndrome Plan: I went over the diagnosis, prognosis, and treatment plan with the patient. Pt's history is complicated where apparently he has a h/o chronic diffuse widespread pain includingjoints. He carries a h/o Kamari Danlos syndrome and has h/o 1 ankle surgery; unclear if it was related to this. He apparently utilizes a wheelchair at times due to chronic pain and mobility issues. He also uses bilateral AFOs. He gives a history that he's able to function with AFOs and was playing pickleball but then heard a pop in his back which lead to severe pain and LE weakness. He was admitted to the hospital and was in acute rehab for weeks. His MRI images of his spine all have been unremarkable. He has a baseline neurogenic bowel and bladder and uses a G tube and does self catheterization. He apparently follows up at the [facility]. The pt gives a history that he wanted to follow up with [facility] upon discharge and potentially get a LE EMG, however, he reports now that PM&R will not see him at [facility] nor will any other PM&R see him at [place]. I do not appreciate anything on his images that would explain his symptoms and recommend Tizanidine, PM&R consult, and LE EMG. The pt is quite adamant that he has instability in his spine and he wants this fixed. I relayed to him there is no evidence of instability despite his h/o Kamari Danlos and asked him where he got this from. He reports that his physical therapist reported that he was unstable. I can appreciate that therapy may find him hypermobile with h/o Kamari Danlos but explained to him that I did not see anything in the records of spinal instability that is emergent. I discussed that the only way to further evaluate this would be a dynamic MRI or at minimum a dynamic X-Ray. The pt is mobile today in a wheelchair and I did offer to try to help coordinate this but interestingly he declines. I also did discuss with him that if he had true instability that was dangerous that he would go to surgery whichis not warranted at this time as there are no findings. Pt is currently wearing a TLSO because of instability and pain. He is asking instead for me to order a plaster cast for his thorax that he reports in the past he immobilized certain body joints andfollowing wearing this he was more stable. I discussed that this does not make any logical sense asthis would lead to more muscle atrophy after. He reports multiple splints including a hip spica cast and other devices throughout the years. If this was the case, this most likely was not needed medically. Assuming there are no objective findings, I encourage him to follow up with rehab and focus on a proactive approach as well as having him follow up for his mental health. Addendum: Talked with PMR who saw him in the acute rehab floor. He is to NOT f/u with PMR. He is to f/u with [facility] where he is established despite what pt is saying that he cannot f/u with them. [facility] can determine if he needs further w/u including EMG. Plan and Instructions: I went over the diagnosis with the patient and answered any questions the patient had regarding thediagnosis, prognosis, and treatment plan as outlined below. Patient Instructions Pain Management Clinic After Visit Recommendations Hold on Flexeril and Valium Tizanidine 2 mg up to three times a day Placed order for EMG Order placed for PMR rehab MD Please access us online through Ribbit or call [phone] if any other questions or new concerns. This document serves as a record of services personally performed by Suzanne Crawford DO. It was created on his behalf by Lula Arias, a medical esthetician. The creation of this record is based on the provider's personal exam and discussion with the patient. 08/20/2024 9:32 AM documented in this encounter Plan of Treatment Upcoming Encounters Date Type Department Care Team (Late st Contact Info) Description 09/17/2024 10:10 AM CDT Appointment Orthopedics at [address] [place] [address] Nilay Ceron MD [address] [facility] [place] [id number] documented as of this encounter Visit Diagnoses Diagnosis Neuropathic pain- Primary Neuralgia, neuritis, and radiculitis, unspecified Chronic pain syndrome documented in this encounter Care Teams Shipping/Receiving Manager Relationship Specialty Start Date End Date Eliana Guerra MD [address] [place] [address] PCP - General Family Practice 12/04/19 documented as of this encounter
[2024-08-25 22:46] VITALS: BP 173/92; PULSE 123; RESP 16; TEMP 36.2; O2SAT 99; BMI 23.5
--- OUTSIDE RECORDS SUMMARY | 2024-08-25 22:47 | XMS_ITS | Encounter Summary ---
Author Organization [facility] Address [address] [place] [address] Care Team Providers Care Professor Of Art Name Role Phone Elsewhere, Pcp Primary Care Provider Unavailabl e Encounter Details Date Type Department Care Team (Late st Contact Info) Description 07/23/2024 Clinical Communication Department of Orthopedic Surgery in [place], [place] [address] [place] [address] Jose Crawford M.D. 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 No 05/29/2024 Humiliation, Afraid, Rape, and Kick questionnair e [...] by your partner or ex-partner? No 2022 Hunger Vital Sign Answer Date Recorded Within the past 12 months, y ou worried that your food would run out before you got the money to buy more. Never true Within the past 12 months, t he food you bought just didn't last and you didn't have money to get more. Sometimes true PRAPARE - Transportation Answer Date Re corded In the past 12 months, has l ack of transportation kept you from medical appointments or from getting medications? Yes 05/09 In the past 12 months, has l ack of transportation kept you from meetings, work, or from getting things needed for daily living? Yes 05/29/2024 Depression Answer Date Recor ded PHQ-9 Total Score (max 27) 5 07/06 Housing Stability Answer Date Recorded What is your living situation today? I have a [facility] place to live 05/29/2024 Education Answer Date Recorded What is the highest level of school you have completed or the highest degree you have received? 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 [address] [place] [phone] 09/19/2024 1:00 PM CDT Office Visit Department of Physical Medicine and Rehabilitation in [place], [place] [address] [place] [phone] David Weir D.O. [address] [place] [phone] 10/09/2024 11:45 AM CDT Office Visit Department of Orthopedic Surgery in [place], [place] [address] [place] [phone] Jose Crawford M.D. [address] [place] [phone] documented as of this encounter Visit Diagnoses Not on filedocumented in this encounter Additional Health Concerns Assessment Noted Time PHQ-9 Depression Total Score: 5 07/07/19 24 9:17 PM CDT documented as of this encounter Care Teams Professor Of Art Relationship Specialty Start Date End Date Elsewhere, Pcp PCP - General Internal Medicine 05/22/18 documented as of this encounter
--- OUTSIDE RECORDS SUMMARY | 2024-08-25 22:47 | XMS_ITS | Encounter Summary ---
Author Organization [facility] Address [address] [place] [address]. [place] [address] Care Team Providers Care Director Of Recruitment And Admissions Name Role Phone Kei Eugene MD Unavailable [phone] Eliana Guerra MD Primary Care Provider [phone] Eliana Guerra MD Unavailable [phone] Eliana Guerra MD Unavailable [phone] Unavailable Unavailable Jody Obregon APRN HOST AND HOSTESS Unavailable [phone] Efrain Crow PA-C Unavailable [phone] Encounter Details Date Type Department Care Team (Late st Contact Info) Description 08/17/2024 Home Infusion [facility] [address] [place] [phone] Francine Duval LPN Social History Tobacco Use Types Packs/Day Years [...] permanent housing and does not include staying outside in a car, in a tent, in an abandoned building, in an overnight mcc, or couch-surfing.) Yes 03/03/2024 Are you worried [...] on file 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 Gender Identity Not on file Sexual Orientation Not on file documented as of this encounter Plan of Treatment Scheduled Procedures Name Priority Associated Diagnoses Date/Ti me SURGICAL EXTRACTION, TOOTH Chronic pericoronitis documented as of this encounter Visit Diagnoses Not on filedocumented in this encounter Care Teams Director Of Recruitment And Admissions Relationship Specialty Start Date End Date Eliana Guerra MD [facility] [place] [address] PCP - General Family Medicine 03/04/24 Kei Eugene MD [address] [place], [place] [address] Assigned Musculoskeletal Provider 03/01/24 Eliana Guerra MD [address] [address] Home Infusion Following Provider Family Medicine 03/11/24 Eliana Guerra MD [facility] [address] [place] [address] Home Infusion Following Provider Family Medicine 03/14/[address] [facility] Registered Dietitian Dietitian 03/14/24 Jody Obregon APRN HOST AND HOSTESS Home Infusion Following Provider 03/14/24 Efrain Crow PA-C [facility] [address] [address] Home Infusion Following Provider Gastroenterology 06/25/24 documented as of this encounter
--- OUTSIDE RECORDS SUMMARY | 2024-08-25 22:47 | XMS_ITS | Clinical Summary ---
Author Organization [facility] Address [address] [place] [address] Care Team Providers Care Historiography Teacher Name Role Phone Elsewhere, Pcp Primary Care Provider Unavailabl e Source Comments Patient records contain information from all sites at [facility]. For routine questions regarding patient records, call [phone] during business hours, M-F 8:00 AM - 5:00 PM Central Time. Record requests for emergency care only can be directed to [phone] at any time.[facility] Allergies No known active allergies Medications * This document contains information received from the source organization and may not represent a complete record from that organization. tadalafiL (Cialis) 5 mg tablet Take 1 tablet (5 mg total) by mouth daily. 90 tablet 07/11/19 24 Active Additional Information Patient not taking.Reported on 06/18/2024 ondansetron ODT (Zofran-ODT) 4 mg disintegrating tablet DISSOLVE 1 TABLET ON THE TONGUE EVERY 8 HOURS NEEDED FOR NAUSEA OR VOMITING 12/02/19 [address] tablet Take 81 mg by mouth 2 (two) times a day. With meals Active acetaminophen (TylenoL) 325 mg tablet Take 650 mg by mouth. 03/14/19 25 Active acetaminophen (TylenoL) 500 mg tablet Take 1,000 mg by mouth every 8 (eight) hours. 04/28/19 25 Active cyclobenzaprine (FlexeriL) 5 mg tablet Take 5 mg by mouth 3 (three) times a day as needed. 05/10/19 25 Active diazePAM (Valium) 5 mg tablet Take 5 mg by mouth every 6 (six) hours as needed. 05/12/19 25 Active FLUoxetine (PROzac) 20 mg capsule 04/18/19 25 Active methocarbamoL (Robaxin) 500 mg tablet Take 500 mg by mouth 3 (three) times a day as needed. 04/28/19 25 Active metoclopramide (Reglan) 5 mg tablet Take 5 mg by mouth. 03/01/19 25 Active oxyBUTYnin (Ditropan) 5 mg tablet Take 5 mg by mouth 2 (two) times a day. Active polyethylene glycol (Miralax) 17 gram powder packet Take 17 g by mouth daily as needed. 03/14/19 25 Active promethazine (Phenergan) 12.5 mg tablet Take 12.5 mg by mouth. 05/16/19 25 Active triamcinolone (Kenalog) 0.1 % cream Apply 1 Application topically as needed for rash. 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 Date Type Department Care Team Description 07/23/2024 Orders Only Department of Orthopedic Surgery in [place], [place] [address] [place] [phone] Mike Salomon Jr., Moshe. 07/23/2024 Clinical Communication Department of Orthopedic Surgery in [place], [place] [address] [place] [phone] Jose Crawford M.D. 07/19/2024 Clinical Communication Department of Urology in [address] [phone] Kate Egan P.A.-C. Outside Doctor Calling 06/18/2024 3:30 PM CDT Comprehensive Visit Department of Physical Medicine and Rehabilitation in [address] [phone] Mike Salomon Jr., P.A.BrandiC. Jennifer Dorsey, P.T., C.H.T. Pain Wrist Left 06/18/2024 1:00 PM CDT Comprehensive Visit Department of Physical Medicine and Rehabilitation in [place], [place] [address] [place] [phone] David Weir D.O. Pain Neck (Primary Dx); Pain Back Lumbar; Pain Back Thoracic; Myofascial Pain Syndrome; Hypermobility Joint; Mobility Limited; Kamari Danlos Syndrome Unspecified (HCC); Klinefelter's Syndrome (HCC); Pain Cervical; Pain Low Back Unspecified 06/18/2024 10:05 AM CDT - 06/18/2024 11:59 PM CDT Hospital Encounter Department of Radiology, [facility], in [place], [place] [address] [place] [phone] Jak Drummond M.D. Hypermobility Joint; Mobility Limited; Myofascial Pain Syndrome Discharge Disposition: Home or Self Care 06/18/2024 9:00 AM CDT Procedure visit Department of Urology in [place], [place] [address] [place] [phone] Kate Egan P.A.-C. Hughes, Corinna S, APRN CMackenzieNMackenziePMackenzie, D.N.P. Retention Urinary 06/18/2024 8:30 AM CDT Clinical Communication Virtual Review in [place], [place] [address] [place] [phone] Pre-visit Intake 06/18/2024 Results Follow-Up Department of Urology in [place], [place] [address] [place] [phone] Kate Egan P.A.-C. URO Cystoscopy (general) 06/14/2024 Orders Only Department of Orthopedic Surgery in [address] [phone] Mike Salomon Jr., P.A.-C. Pain Wrist Left (Primary Dx) 06/14/2024 Clinical Communication Department of Orthopedic Surgery in [address] [phone] Jose Crawford M.D. 06/11/2024 1:00 PM CDT Telemedicine Department of Sports Medicine in [address] [phone] Ahsan Talbert M.D., Ph.D. Pain Hip Right (Primary Dx) 06/03/2024 Results Follow-Up [facility] [address] [place] [address] Khloe Jimenez R.N. Bacterial Culture, Aerobic + Susceptibility, Urine 05/31/2024 5:00 PM CDT - 06/01/2024 9:56 AM CDT Hospital Encounter [facility] Emergency Department [address] [place] [phone] Bret Vargas M.D. Reich, Betzalel E, M.D. Repeated Falls (Primary Dx); Acute Cystitis With Hematuria Discharge Disposition: Home or Self Care 05/31/2024 1:34 PM CDT - 05/31/2024 4:59 PM CDT Hospital Encounter Department of Orthopedic Surgery in [place], [place] [address] [place] [phone] Jose Crawford M.D. Pain Wrist Right Discharge Disposition: Home or Self Care 05/31/2024 1:00 PM CDT Procedure visit Department of Physical Medicine and Rehabilitation in [place], [place] [address] [place] [phone] Tejinder Roy D.O. Pain Wrist Right 05/31/2024 11:45 AM CDT Office Visit Department of Orthopedic Surgery in [address] [phone] Jose Crawford M.D. Pain Wrist Right (Primary Dx) 05/31/2024 10:30 AM CDT - 05/31/2024 1:33 PM CDT Hospital Encounter Department of Radiology, [facility], in [place], [place] [address] [place] [phone] Mike Salomon Jr., P.A.-C. Pain Wrist Right Discharge Disposition: Home or Self Care 05/31/2024 Documentation Department of Urology in [address] [phone] Krpakassandra Libby S 05/31/2024 Clinical Communication Department of Urology in [place], [place] [address] [place] [phone] Kate Egan P.A.-C. Urodynamic Study 05/31/2024 Orders Only Department of Urology in [place], [place] [address] [place] [phone] Krevensta, Libby S 05/30/2024 Orders Only Department of Orthopedic Surgery in [place], [place] [address] [place] [phone] Mike Salomon Jr., P.A.-C. Pain Wrist Right (Primary Dx) 05/29/2024 8:00 AM CDT Clinical Communication Virtual Review in [place], [place] [address] [place] [phone] Pre-visit Intake 05/28/2024 Orders Only Department of Urology in [place], [place] [address] [place] [address] Kate Egan P.A.-C. 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 I have a [facility] place to live 05/29/2024 Education Answer Date Recorded What is the highest level of school you have completed or the highest degree you have received? 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 Gender Identity Male 07/15/2019 8:59 AM CDT Sexual Orientation Straight 07/15/2019 8: 59 AM CDT Last Filed Vital Signs Vital Sign Reading Time Taken Comments Blood Pressure 124/84 06/01/2024 7:45 AM CDT Pulse 91 06/01/2024 7:45 AM CDT Temperature 36.7 C (98.1 F) 06/01/2024 7:45 AM CDT Respiratory Rate 16 06/01/2024 7:45 AM CDT Oxygen Saturation 98% 06/01/2024 7:45 AM CDT Inhaled Oxygen Concentration - - Weight 72.8 kg (160 lb 7.9 oz) 05/31/2024 5:02 P M CDT Height 188 cm (6' 2) 05/31/2024 5:02 PM CDT Body Mass Index 20.61 05/31/2024 5:02 PM CDT Plan of Treatment Upcoming Encounters Date Type Department Care Team (Latest Contact Info) Description 09/13/2024 1:30 PM CDT Clinical Communication Virtual Review in [place], [place] [address] [place] [phone] 09/17/2024 3:30 PM CDT Telemedicine Department of Urology in [place], [place] [address] [place] [phone] BoKate vela P.A.-C. [address] [place] [phone] 09/19/2024 1:00 PM CDT Office Visit Department of Physical Medicine and Rehabilitation in [place], [place] [address] [place] [phone] David Weir D.O. [address] [place] [phone] 10/09/2024 11:45 AM CDT Office Visit Department of Orthopedic Surgery in [place], [place] [address] [place] [phone] Jose Crawford M.D. [address] [place] [phone] Health Maintenance Due Date Last Done Comments Hepatitis C Screening 2000 Depression Screening (Annual PHQ-2) 02/08/2024 Influenza Vaccine (#1) 2024 , 11/19/2022, 04/16/2022, Additional history exists DTaP,Tdap,and Td Vaccines (7 - Td or Tdap) 11/19/2032 11/19/2022, 09/22/2012, 11/11/2004, Additional history exists Pneumococcal vaccine (0-49 years) Aged Out 04/21/2001, 01/12/2001, 2000 No longer eligible based on patient's age to complete this topic Hepatitis B Vaccines Completed 10/20/2001, 01/12/2001, 2000 IPV Vaccines Completed 11/11/2004, 04/07, 01/12/2001, Additional history exists Hepatitis B Screening Discontinued 08/18/2020 HPV Vaccines Completed 10/28/2020, 02/08, 10/19/2019 COVID-19 Vaccine Completed 11/02/2023, 11/2022, 02/18/2021, Additional history exists Medical Devices Implanted Type Area Stoker Erector Device Identifier Shelf Expiration Date Model / Serial / Lot Hardware E.G. Pins/Screws/R ods Hardware e.g. pins/screws/ rods Chest Wall [place] [address] Pk Hip Mini 2.4x8.9 - [id number] Implanted:Qty : 1 on 02/13/2020 by Zoltan Haines M.D. at [facility] Hardware e.g. pins/screws/ rods Right: Hip Arthrex [id number] 11/06/2024 AR-2924PH S / / [id number] [address] [address] [employer]k Hip Mini 2.4x8.9 - [id number] Implanted:Qty : 2 on 02/13/2020 by Zoltan Haines M.D. at [facility] Hardware e.g. pins/screws/ rods Right: Hip Arthrex [id number] 10/07/2024 AR-2924PH S / / [id number] [address] [address] Pk Hip Mini 2.4x8.9 - [id number] Implanted:Qty : 1 on 02/13/2020 by Zoltan Haines M.D. at [facility] Hardware e.g. pins/screws/ rods Right: Hip Arthrex [id number] 07/07/2024 AR-2924PH S / / [id number] Kt Fix Intbrc Hnd Wrst - [id number] Implanted:Qty : 1 on 02/02/2021 by Jose Crawford M.D. at [facility] Hardware e.g. pins/screws/ rods Left: Wrist Arthrex [id number] 09/06/2025 AR-8978-[id number] P / / [id number] Procedures Procedure Name Priority Date/Time Associated Diagnosis Comments DX THORACIC SPINE 2 VIEWS RAD - Routine (most inpatients and all outpatients) 06/18/2024 10:23 AM CDT Hypermobility Joint Mobility Limited Myofascial Pain Syndrome URO CYSTOSCOPY (GENERAL) Routine 06/18/2024 9:00 AM CDT Retention Urinary DX HAND LEFT 3+ VIEWS RAD - Semiurgent (Fast; most ED patients; some inpatients) 06/01/2024 8:55 AM CDT BASIC METABOLIC PANEL, S/P STAT 05/31/2024 9:34 PM CDT CBC WITH DIFFERENTIAL, B STAT 05/31/2024 9:34 PM CDT HC URINALYSIS AUTO WO MICRO Routine 05/31/2024 6:40 PM CDT MICROSCOPIC MANUAL STAT 05/31/2024 6: 04 PM CDT PH, U STAT 05/31/2024 6:04 PM CDT DIPSTICK, U STAT 05/31/2024 6:04 PM CDT OSMOLALITY, U STAT 05/31/2024 6:04 PM CDT URINALYSIS WITH MICROSCOPIC STAT 05/31/2024 6:04 PM CDT BACTERIAL CULTURE, AEROBIC + SUSC, URINE STAT 05/31/2024 6:04 PM CDT SMALL JOINT INJECTION HAND/WRIST Routine 05/31/2024 1:00 PM CDT Pain Wrist Right DX WRIST BILATERAL 3+ VIEWS RAD - Routine (most inpatients and all outpatients) 05/31/2024 10:53 AM CDT Pain Wrist Right from Last 3 Months Results * DX Thoracic Spine 2 Views (06/18/2024 10:23 AM CDT) Anatomical Region Laterality Modality Thoracic Spine, Musculoskele kyle RST LOS, Neuroradiology ARZ LOS, Muskuloskeletal FLA LOS N/A Digita l Radiography Impressions 06/18/2024 10:25 AM CDT Demineralization. Slight right convex thoracic curve. Vertebral body heights are maintained. Narrative 06/18/2024 10:25 AM CDT EXAM: DX THORACIC SPINE 2 VIEWS Procedure Note Eduard Marcos M.D. - 06/18/2024 EXAM: DX THORACIC SPINE 2 VIEWS IMPRESSION: Demineralization. Slight right convex thoracic curve. Vertebral bodyheights are maintained. us Jak Drummond M.D. IMG DIAGNOSTIC IMAGING PROCED URES Final Result * URO Cystoscopy (general) (06/18/2024 9:00 AM CDT) Narrative Cristina Garcia APRN, C.NKendell, D.N.P. - 06/18/2024 9:00 AM CDT Cristina Garcia APRN, C.N.P., D.N.P. 06/18/2024 9:29 AM URO Cystoscopy (general) Performed by: Cristina Garcia APRN, C.N.Farshad, D.N.P. Authorized by: Kate Egan P.A.-C. Care team members present 1. Cristina Garcia APRN, C.NShirley., D.N.P. Additional procedures performed: cystoscopy PROCEDURE DETAILS: Blue light imaging agent used: no A flexible cystoscope was inserted through the urethra into the bladder. Cystoscope was removed at the end of procedure. The patient was brought to the cystoscopy suite and placed in the lithotomy position. The patient was prepped and draped in the standard fashion. A FLEXIBLE CYSTOSCOPE was inserted through the urethra and into the bladder. Urethroscopy was normal. The sphincter coapted normally. The prostatic urethra was nonobstructing. The bladder was entered and inspected. There were no diverticula, cellules, stones or foreign bodies noted. trabeculations were noted. The ureteral orifices were identified in their orthotopic position bilaterally effluxing clear urine. There were no areas of concerning erythema or papillary lesions. Multiple erythematous patches noted along posterior bladder wall likely attributed to patient's intermittent catheterization. Retroflex view demonstrated a normal appearing bladder neck. The cystoscope was then removed with no evidence of active bleeding. The patient tolerated the procedure well. IMPRESSION: #1 Cystitis #2 Multiple erythematous patches likely contributed to trauma from intermittent catheterization PLAN: Follow-up with Kate Egan PA-C July 03, 2024 CONSENT Consent obtained: verbal Consent given by: patient The benefits, risks and alternatives to the procedure and the potential need for sedation or anesthesia as well as the names, roles, and responsibilities of healthcare team members performing significant interventional tasks were discussed with the patient and/or decision maker. UNIVERSAL PROTOCOL All relevant documentation and testing were reviewed and available. All required blood products, implants, devices and or special equipment were made available as applicable. Pre-procedure verification was conducted and the correct site was marked if required. A fire risk and smoke assessment were done as applicable. The procedural time-out to verify correct patient, correct side/site, and procedure was conducted prior to performing the procedure and confirmed in a procedural pause. PRE-PROCEDURE DETAILS Procedure purpose: Diagnostic Appropriate hand hygiene, gown, cap, mask, protective eyewear, sterile gloves, skin preparation, sterile drape, and strict aseptic technique were utilized as applicable for the procedure.: yes Site preparation: Povidone-iodine SEDATION / ANESTHESIA Anesthesia method: none POST-PROCEDURE DETAILS Procedure completed successfully: yes Complications: no apparent complications us Kate Egan P.A.-C. UROLOGY ORDERABLES Fi nal Result * DX Hand Left 3+ Views (06/01/2024 8:55 AM CDT) Anatomical Region Laterality Modality Upper Extremity, Hand, Muscu loskeletal RST LOS, Musculoskeletal ARZ LOS, Muskuloskeletal FLA LOS Left Digit al Radiography Impressions 06/01/2024 9:41 AM CDT No significant change since yesterday. No fracture or traumatic malalignment about the left hand. Preserved joint spaces. Unchanged, slightly flattened appearance of the scaphoid relative to the lunate. Tunnels from prior left carpal stabilization. Soft tissue swelling. Narrative 06/01/2024 9:41 AM CDT EXAM: DX HAND LEFT 3+ VIEWS Procedure Note Dar Huynh M.D. - 06/01/2024 EXAM: DX HAND LEFT 3+ VIEWS IMPRESSION: No significant change since yesterday. No fracture or traumaticmalalignment about the left hand. Preserved joint spaces. Unchanged,slightly flattened appearance of the scaphoid relative to the lunate.Tunnels from prior left carpal stabilization. Soft tissue swelling. us Iraj Hearn M.D. IMG DIAGNOSTIC IMAGING PROCED URES Final Result * (ABNORMAL) CBC with Differential, Blood (05/31/2024 9:34 PM CDT) Hemoglobin 15.2 13.2 - 16.6 g/dL 05/31/2024 9:58 PM CDT STMA Hematocrit 44.2 38.3 - 48.6 % 05/31/2024 9:58 PM CDT ST[facility] Erythrocytes 5.16 4.35 - 5.65 x10(12)/L 05/31/2024 9:58 PM CDT STMA MCV 85.7 78.2 - 97.9 fL 05/31/2024 9:58 PM CDT STMA RBC Distrib Width 12.5 11.8 - 14.5 % 05/31/2024 9:58 PM CDT STMA Platelet Count 244 135 - 317 x10(9)/L 05/31/2024 9:58 PM CDT STMA Leukocytes 9.5 3.4 - 9.6 x10(9)/L 05/31/2024 9:58 PM CDT STMA Neutrophils 6.51(H) 1.56 - 6.45 x10(9)/L 05/31/2024 9:58 PM CDT DHPM Lymphocytes 2.13 0.95 - 3.07 x10(9)/L 05/31/2024 9:58 PM CDT ST[facility] Monocytes 0.71 0.26 - 0.81 x10(9)/L 05/31/2024 9:58 PM CDT STMA Eosinophils 0.09 0.03 - 0.48 x10(9)/L 05/31/2024 9:58 PM CDT STMA Basophils 0.04 0.01 - 0.08 x10(9)/L 05/31/2024 9:58 PM CDT STMA Blood (Blood, Venous) 05/31/2024 9:34 PM CDT 05/31/2024 9:55 PM CDT Gabo Rod M.D. LAB BLOOD ADD-ON Final Resul t [facility] [address] [place] [address], [place] ST[facility] [address] [place] [address] DHPM [facility] [address] [place] [address] * Basic Metabolic Panel (05/31/2024 9:34 PM CDT) [facility] Potassium, P 3.9 3.6 - 5.2 mmol/L 05/31/2024 10:17 PM CDT STMA Sodium, P 139 135 - 145 mmol/L 05/31/2024 10:17 PM CDT STMA Chloride, P 102 98 - 107 mmol/L 05/31/2024 10:17 PM CDT STMA Bicarbonate, P 25 22 - 29 mmol/L 05/31/2024 10:17 PM CDT ST[facility] Anion Gap, P 12 7 - 15 05/31/2024 10:17 PM CDT ST[facility] BUN (Blood Urea Nitrogen), P 15 8 - 24 mg/dL 05/31/2024 10:17 PM CDT STMA Creatinine 1.00 0.74 - 1.35 mg/dL 05/31/2024 10:17 PM CDT STMA Estimated GFR (eGFR) >90 >=60 mL/min/BSA 05/31/2024 10:17 PM CDT STMA Comment: Estimated GFR calculated using the 2020 CKD_EPI creatinine equation. Calcium, Total, P 9.7 8.6 - 10.0 mg/dL 05/31/2024 10:17 PM CDT STMA Glucose, P 88 70 - 140 mg/dL 05/31/2024 10:17 PM CDT STMA Blood (Blood, Venous) 05/31/2024 9:34 PM CDT 05/31/2024 9:55 PM CDT Gabo Rod M.D. LAB BLOOD ADD-ON Final Resul t [facility] [address] [place] [address], [place] ST[facility] [address] [place] [address] * (ABNORMAL) Dipstick, POCT, Urine (05/31/2024 6:40 PM CDT) Glucose, POCT, U Negative Negative mg/dL 05/31/2024 6:42 PM CDT PCED Ketone, POCT, U Trace(A) Negative mg/dL 05/31/2024 6:42 PM CDT PCED Specific [place], POCT, U 1.025 1.005 - 1.030 05/31/2024 6:42 PM CDT PCED Blood, POCT, U Trace(A) Negative 05/31/2024 6:42 PM CDT PCED pH, POCT, Urine 7.0 5.0 - 8.0 05/31/2024 6:42 PM CDT PCED Protein, POCT, U 100(A) Negative mg/dL 05/31/2024 6:42 PM CDT PCED Nitrites, POCT, U Negative Negative 05/31/2024 6:42 PM CDT PCED Leukocytes, POCT, U Small(A) Negative 05/31/2024 6:42 PM CDT PCED Urine 05/31/2024 6:40 PM CDT 05/31/2024 6:43 PM CDT us Unknown Provider LAB POCT ORDERABLES - DEVICE Fi nal Result POC RST [facility] [address] [place] [address], [place] [facility] [address] [place] [address] * (ABNORMAL) Dipstick, Urine (05/31/2024 6:04 PM CDT) Hemoglobin, QL, U Negative Negative 05/31/2024 7:08 PM CDT DTL Leukocyte Esterase, U Large(A) Negative 05/31/2024 7:08 PM CDT DTL Nitrite, U Negative Negative 05/31/2024 7:08 PM CDT DTL Ketone, U 10(A) Negative mg/dL 05/31/2024 7:08 PM CDT DTL Glucose, U Negative Negative mg/dL 05/31/2024 7:08 PM CDT DTL Urine 05/31/2024 6:04 PM CDT 05/31/2024 6:53 PM CDT Gabo Rod M.D. LAB URINE ORDERABLES Final R esult Performing Organization Address [facility] Co de Phone Number [facility] [address] [place] [address], [place] [facility] [address] [place] [address] * (ABNORMAL) Microscopic Manual (05/31/2024 6:04 PM CDT) Microscopy Abnormal 05/31/2024 7:30 PM CDT DTL RBC <3 <3 /hpf 05/31/2024 7:30 PM CDT DTL WBC >100(A) /hpf 05/31/2024 7:30 PM CDT DTL Comment: ----REFERENCE VALUE---- <4 (Males) <11 (Females) Fat, Free Occas(A) /hpf 05/31/2024 7:30 PM CDT DTL Bacteria Present(A) 05/31/2024 7:30 PM CDT DTL Urine 05/31/2024 6:04 PM CDT 05/31/2024 7:08 PM CDT Gabo Rod M.D. LAB URINE ORDERABLES Final R esult Performing Organization Address [facility] Co de Phone Number [facility] [address] [place] [address], [place] [facility] [address] [place] [address] * (ABNORMAL) Bacterial Culture, Aerobic + Susceptibility, Urine (05/31/2024 6:04 PM CDT) Urine Culture ESCHERICHIA COLI >100,000 cfu/mL (A) 06/03/2024 1:47 PM CDT DTL Urine (Urine, Straight Catheter) 05/31/2024 6:04 PM CDT 05/31/2024 7:34 PM CDT Comment:Specimen Source Site : Urine Narrative Organism Antibiotic Method Susceptibility Escherichia coli Ampicillin SUSCEPTIBILITY, JENNIE (MCG/ML) 8 mcg/mL: Susceptible Escherichia coli Meropenem SUSCEPTIBILITY, JENNIE (MCG/ML) <=0.12 mcg/mL: Susceptible Escherichia coli Ertapenem SUSCEPTIBILITY, JENNIE (MCG/ML) <=0.25 mcg/mL: Susceptible Escherichia coli Piperacillin + Tazobactam SUSCE PTIBILITY, JENNIE (MCG/ML) <=8/4 mcg/mL: Susceptible Escherichia coli Ciprofloxacin SUSCEPTIBILITY, JENNIE (MCG/ML) <=0.25 mcg/mL: Susceptible Escherichia coli Levofloxacin SUSCEPTIBILITY, JENNIE (MCG/ML) <=0.5 mcg/mL: Susceptible Escherichia coli Cefazolin SUSCEPTIBILITY, JENNIE (MCG/ML) <=2 mcg/mL: Susceptible Escherichia coli Ceftriaxone SUSCEPTIBILITY, JENNIE (MCG/ML) <=1 mcg/mL: Susceptible Escherichia coli Ceftazidime SUSCEPTIBILITY, JENNIE (MCG/ML) <=4 mcg/mL: Susceptible Escherichia coli Cefepime SUSCEPTIBILITY, JENNIE (MCG/ML) <=2 mcg/mL: Susceptible Escherichia coli Cefazolin (Uncomplic ated UTI) SUSCEPTIBILITY, JENNIE (MCG/ML) <=2 mcg/mL: Susceptible Comment: The interpretation applies to uncomplicated urinary tract infections only. It also applies to these oral cephalosporins: cefuroxime, cephalexin, and cefprozil. Escherichia coli Cefdinir SUSCEPTIBILITY, JENNIE (MCG/ML) <=1 mcg/mL: Susceptible Escherichia coli Amikacin SUSCEPTIBILITY, JENNIE (MCG/ML) <=4 mcg/mL: Susceptible Escherichia coli Gentamicin SUSCEPTIBILITY, JENNIE (MCG/ML) <=1 mcg/mL: Susceptible Escherichia coli Tobramycin SUSCEPTIBILITY, JENNIE (MCG/ML) <=1 mcg/mL: Susceptible Escherichia coli Aztreonam SUSCEPTIBILITY, JENNIE (MCG/ML) <=4 mcg/mL: Susceptible Escherichia coli Trimethoprim + Sulfamethoxazole SUSCEPTIBILITY, JENNIE (MCG/ML) <=0.5/9.5 mcg/mL: Susceptible Escherichia coli Nitrofurantoin SUSCEPTIBILITY, JENNIE (MCG/ML) <=32 mcg/mL: Susceptible Escherichia coli Fosfomycin SUSCEPTIBILITY, JENNIE (MCG/ML) <=64 mcg/mL: Susceptible Gabo Rod M.D. LAB MICROBIOLOGY - GENERAL O RDERABLES Final Result Performing Organization Address City/[facility]/ZIP Co de Phone Number [facility] [address] [place], [place] [id number] [place] [address] [address] [place] [address] * pH, Urine (05/31/2024 6:04 PM CDT) [facility] pH, U 6.5 4.5 - 8.0 05/31/2024 7:0 7 PM CDT DT Urine 05/31/2024 6:04 PM CDT 05/31/2024 6:53 PM CDT Gabo Rod M.D. LAB URINE ORDERABLES Final R esult Performing Organization Address [facility] Co de Phone Number [facility] [address] [place], [place] [address] [address] [place] [address] * Osmolality, Urine (05/31/2024 6:04 PM CDT) [facility] Osmolality, U 930 150 - 1150 mOsm/kg 05/31/2024 7:07 PM CDT [facility] Urine 05/31/2024 6:04 PM CDT 05/31/2024 6:53 PM CDT Gabo Rod M.D. LAB URINE ORDERABLES Final R esult Performing Organization Address [facility] Co de Phone Number [facility] [address] [place], [place] [phone] [place] [address] 200 [place] [address] * (ABNORMAL) Urinalysis, with Microscopic: Urine, Straight Catheter (05/31/2024 6:04 PM CDT) [facility] Source Urine, Urine, Straight Catheter 05/31/2024 6:52 PM CDT DTL Color, U Yellow 05/31/2024 6:53 PM CDT DTL Clarity, U Clear 05/31/2024 6:53 PM CDT DTL Protein, U 47(H) <26 mg/dL 05/31/2024 7:21 PM CDT DTL Protein/Osmola lity 0.51(H) <0.42 ratio 05/31/2024 7:21 PM CDT DTL Predicted 24 HR Protein, U 491(H) <229 mg/24 h 05/31/2024 7:21 PM CDT DTL Predicted Range 156-1548 mg/24 h 05/31/2024 7:21 PM CDT DTL Urine (Urine, Straight Catheter) 05/31/2024 6:04 PM CDT 05/31/2024 6:52 PM CDT Gabo Rod M.D. LAB URINE ORDERABLES Final R esult [facility] [address] [place] [address], [facility] [address] [place] [address] * hand-wrist: R ulnocarpal (05/31/2024 1:00 PM CDT) Narrative Tejinder Roy D.O. - 05/31/2024 1:00 PM CDT Tejinder Roy D.O. 05/31/2024 1:32 PM R ulnocarpal wrist joint injection, : injection only Hand-wrist: R ulnocarpal Performed by: Tejinder Roy D.O. Authorized by: Tejinder Roy D.O. Care team members present 1. Tejinder Roy D.O. 2. Noel Rocha PROCEDURE DETAILS Procedure performed: injection only Needle gauge: 25 G Needle length: 02/10 in Ultrasound image guidance used to localize target, identify at risk structures, and dynamically used to direct therapy to the target. Image(s) acquired and saved. Probe: linear small footprint high-frequency Needle approach: distal to proximal Ultrasound visualization: in-plane Hand-Wrist procedure site: R ulnocarpal wrist joint injection, PROCEDURE MEDICATIONS Local anesthetics: 1 mL lidocaine 10 mg/mL (1 %) Corticosteroid: 6 mg betamethasone acetate & sodium phosphate 6 mg/mL CONSENT Consent obtained: written (Risks, benefits and [...] was marked if required. A fire risk and smoke assessment were done as applicable. The procedural time-out to verify correct patient, correct side/site, and procedure was conducted prior to performing the procedure and confirmed in a procedural pause. PRE-PROCEDURE DETAILS Procedure purpose: therapeutic Site preparation: chlorhexidine SEDATION / ANESTHESIA Anesthesia method: none POST-PROCEDURE DETAILS Procedure outcome: successful procedure Complications: no apparent complications Post-procedure instructions: avoid strenuous activity for 2 days, avoid submersion of procedure site for 48 hours and post-procedure activity instructions provided Discharge instruction provided: ice area as needed for comfort and follow-up with ordering provider Tejinder Roy D.O. PROCEDURE/MINOR SURGICAL OR DERABLES Final Result * DX Wrist Bilateral 3+ Views (05/31/2024 10:53 AM CDT) Anatomical Region Laterality Modality Upper Extremity, Wrist, Musc uloskeletal RST LOS, Musculoskeletal ARZ LOS, Muskuloskeletal FLA LOS Bilateral Digit al Radiography Impressions 05/31/2024 11:06 AM CDT Comparison to 03/24/2024. Tunnels from prior left carpal stabilization. Unchanged flattening of the scaphoid relative to the lunate. No interval joint space loss. Mild bilateral ulnar minus variance. Flattening of the right scaphoid relative to the lunate also noted. This is unchanged from the MRI dated 06/25/2020. Narrative 05/31/2024 11:06 AM CDT EXAM: DX WRIST BILATERAL 3+ VIEWS Procedure Note Jose Miranda M.D. - 05/31/2024 EXAM: DX WRIST BILATERAL 3+ VIEWS IMPRESSION: Comparison to 03/24/2024. Tunnels from prior left carpal stabilization.Unchanged flattening of the scaphoid relative to the lunate. No intervaljoint space loss. Mild bilateral ulnar minus variance. Flattening of the right scaphoidrelative to the lunate also noted. This is unchanged from the MRI dated06/25/2020. Mike Salomon Jr. P.A.-C. IMG DIAGNOSTIC I MAGING PROCEDURES Final Result from Last [address] [facility] Care Teams Historiography Teacher Relationship Specialty Start Date End Date Elsewhere, Pcp PCP - General Internal Medicine 05/22/18
--- OUTSIDE RECORDS SUMMARY | 2024-08-25 22:47 | XMS_ITS | Encounter Summary ---
Author Organization [facility] Address [address] [place] [address] Care Team Providers Care Life Skills Specialist Name Role Phone Elsewhere, Pcp Primary Care Provider Unavailabl e Encounter Details Date Type Department Care Team (Late st Contact Info) Description 06/18/2024 Results Follow-Up Department of Urology in [place], [place] [address] [place] [phone] Kate Egan P.A.-C. 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 I have a [facility] place to live 05/29/2024 Education Answer Date Recorded What is the highest level of school you have completed or the highest degree you have received? 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 [address] [place] [phone] 09/19/2024 1:00 PM CDT Office Visit Department of Physical Medicine and Rehabilitation in [place], [place] [address] [place] [phone] David Weir D.O. [address] [place] [phone] 10/09/2024 11:45 AM CDT Office Visit Department of Orthopedic Surgery in [place], [place] [address] [place] [phone] Jose Crawford M.D. [address] [place] [phone] documented as of this encounter Visit Diagnoses Not on filedocumented in this encounter Additional Health Concerns Assessment Noted Time PHQ-9 Depression Total Score: 5 07/07/19 24 9:17 PM CDT documented as of this encounter Care Teams Life Skills Specialist Relationship Specialty Start Date End Date Elsewhere, Pcp PCP - General Internal Medicine 05/22/18 documented as of this encounter
--- OUTSIDE RECORDS SUMMARY | 2024-08-25 22:47 | XMS_ITS | Clinical Summary ---
Author Organization [facility] Address [address] [place] [address] Care Team Providers Care Rig Hand Name Role Phone Eliana Guerra MD Primary Care Provider Allergies Active Allergy Reactions Criticality Noted Date Comments Dog Dander Itching 08/01/2024 House Dust Itching 08/01/2024 Unlisted Allergen (Include Detail In Comments) Other - Describe In Comment Field 04/13/2024 HAS AN ALLERGY TO SOME KIND OF SUGAR HAVING TESTING TO DETERMINE TYPE Medications tadalafiL (CIALIS) 5 mg tablet Take 5 mg by mouth. 2 Active Diaper,Brief, Adult,Disposab leIndications: Nocturnal enuresis For home use. 90 Each 4 Active metoclopramide (REGLAN) 5 mg tabletIndicati ons:Early satiety,Delaye d gastric emptying Take 1 Tablet (5 mg) by mouth three times daily before meals. 270 Tablet 5 Active polyethylene glycol (MIRALAX; GLYCOLAX) 17 g per packet packet Mix 17 g in liquid then take by mouth once daily if needed. 5 Active omeprazole 40 mg Delayed-Releas e capsuleIndicat ions:Gastric reflux TAKE 1 CAPSULE(40 MG) BY MOUTH DAILY BEFORE A MEAL 90 Capsule 5 Active gabapentin 300 mg capsule Take 3 Capsules (900 mg) by mouth three times daily. 5 Active famotidine 40 mg tabletIndicati ons:Heart burn Take 0.5 Tablets (20 mg) by mouth two times daily. 90 Tablet 1 5 Active loratadine 10 mg tablet Take 1 Tablet (10 mg) by mouth once daily. 5 Active FLUoxetine 20 mg capsuleIndicat ions:Current severe episode of major depressive disorder without psychotic features without prior episode (HC) Take 1 Capsule (20 mg) by mouth once daily in the morning. 5 Active mirtazapine 15 mg tabletIndicati ons:Current severe episode of major depressive disorder without psychotic features without prior episode (HC) Take 0.5 Tablets (7.5 mg) by mouth at bedtime. For 1 week, then increase to 1 tablet (15mg) by mouth at bedtime 30 Tablet 1 5 Active ciprofloxacin (CIPRO) 500 mg tabletIndicati ons:urinary tract infection Take 1 Tablet (500 mg) by mouth two times daily for 5 days. 10 Tablet 5 08/26/19 25 Active FLUoxetine 20 mg/5 mL solutionIndica tions:Anxiety and depression Administer 5 mL (20 mg) via G-tube once daily in the morning. 120 mL 2 5 07/28/19 25 Discontinu ed(*Med complete/R egimen complete/L evel of care change) trimethoprim-s ulfamethoxazol e 160-800 mg tabIndications :Recurrent UTI Take 1 Tablet by mouth two times daily for 7 days. 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/25/2019 Exertional headache 04/18/2018 Cell chromosome examination abnormal 03/23/2018 Congenital pes planus 03/23/2018 Atrophy of testis 03/23/2018 Tall stature 03/23/2018 Connective tissue disorder 01/04/2018 Underweight in adolescence 01/04/2018 Scoliosis 01/04/2018 Congenital pectus excavatum 12/29/2013 Encounters Date Type Department Care Team Description 08/24/2024 Nurse Triage [facility] [address] [place] [address] Katarzyna Cohen MD UTI 08/20/2024 2:40 PM CDT Office Visit [facility] [address] [place] [address] Katarzyna Cohen MD UTI 08/20/2024 Travel 08/01/2024 2:00 PM CDT Telemedicine [facility] [address] [place] [address] Zoila Manriquez NP Telehealth; Medication Management (Things are the same) 08/01/2024 Travel 07/27/2024 9:00 AM CDT Telemedicine [facility] [address] [place] [address] Zoila Manriquez NP Telehealth; Mental Health Intake 07/27/2024 Telephone [facility] [address] [place] [address] Lainey Sims RN [facility] 07/27/2024 Travel 07/19/2024 Telephone [facility] [address] [place] [address] Eliana Guerra MD Lab 07/19/2024 Telephone [facility] [address] [place] [address] Zoila Manriquez NP Pre-Visit Intake 07/19/2024 Telephone [facility] [address] [place] [address] Eliana Guerra MD 07/18/2024 Medical Messaging [facility] [address] [place] [address] Eliana Guerra MD Physical therapy prescription 07/18/2024 Telephone [facility] [address] [place] [address] Eliana Guerra MD Referral (DX ARIANNA review); Screening (Spine Center Screening ) 07/17/2024 12:45 PM CDT Office Visit [facility] [address] [place] [address] Eliana Guerra MD Hospital F/U 07/17/2024 Telephone [facility] [address] [place] [address] oZila Manriquez NP ARIANNA Intake Needed 07/17/2024 Travel 07/15/2024 Refill [facility] [address] [place] [address] Thelma Miller DO Refill Request (Omeprazole) 06/14/2024 9:35 AM CDT Office Visit [facility] [address] [place] [address] Eliana Guerra MD Follow Up (UTI) 06/14/2024 Travel 06/06/2024 Orders Only [facility] [address] [place] [address] Thelma Miller DO <No scans attached> 06/04/2024 1:05 PM CDT Office Visit [facility] [address] [place] [address] Thelma Miller DO ER Follow up 06/04/2024 Travel 05/28/2024 11:00 AM CDT Office Visit [facility] [place] [address] [place] [phone] Jose Pinto PA Follow Up (Left Wrist/MRI Results) 05/28/2024 Travel from Last 3 Months Immunizations Immunization [...] PHQ-2 Answer Date Recorded PHQ-2 TOTAL SCORE 6 08/01/2024 Social Connections Answer Date Recorded Do you [...] on file 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 Gender Identity Not on file Sexual Orientation Not on file Occupation Industry Job Start Date Job End Date Student Not on file Not on file Not on file Obstetrics History Last Filed Vital Signs Vital Sign Reading Time Taken Comments Blood Pressure 130/84 08/20/2024 2:41 PM CDT Pulse 104 08/20/2024 2:41 PM CDT Temperature 37 C (98.6 F) 08/20/2024 2:41 PM CDT Respiratory Rate 18 11/25/2023 10:50 AM CDT Oxygen Saturation 98% 08/20/2024 2:41 PM CDT Inhaled Oxygen Concentration - - Weight 71.7 kg (158 lb) 05/18/2024 4:14 PM CDT Height 190 cm (6' 2.8) 04/12/2024 11:25 AM MACHINE BOOKKEEPER Body Mass Index 19.85 04/12/2024 11:25 AM MACHINE BOOKKEEPER Plan of Treatment Upcoming Encounters Date Type Department Care Team (Late st Contact Info) Description 08/27/2024 10:30 AM CDT Office Visit [facility] [address] [place] [address] Zoila Manriquez NP [address] [place] [address] 10/01/2024 9:05 AM CDT Office Visit [facility] [address] [facility] [address] [place] [address] Gracie Tobar MD [address] [facility] [address] [place] [address] Health Maintenance Due Date Last Done Comments Influenza Vaccine (#1) 2024 , 11/19/2022, 04/16/2022, Additional history exists BMI (ht and wt on same day) for age 18+ 04/12/2025 04/12/2024, 03/27/2024, 11/02/2023, Additional history exists Depression screening for age 12+ 08/01/2025 08/01/2024, 05/28/2024, 05/18/2024, Additional history exists Tetanus booster 11/19/2032 11/19/2022, 09/22/2012 Pneumococcal series for age 6-49 Aged Out 04/21/2001, 01/12/2001, 2000 No longer eligible based on patient's age to complete this topic Hepatitis B series for 19+ Completed 10/20, 01/12/2001, 2000 HIV for age 15-65 Completed 08/18/2020 Hepatitis C screening for age 18-79 Completed 08/18/2020 HPV series for age 9-26 Completed 10/29/19 21, 03/07/2020, 10/19/2019 COVID-19 vaccine series Completed 11/02/19 24, 04/16/2022, 02/18/2021, Additional history exists Procedures Procedure Name Priority Date/Time Associated Diagnosis Comments URINALYSIS MACROSCOPIC - [facility] ONLY POC DIP ([facility]) Routine 08/20/2024 2:51 PM CDT Complicated UTI (urinary tract infection) URINALYSIS MICROSCOPIC Routine 08/20/2024 2:34 PM CDT Complicated UTI (urinary tract infection) URINE CULTURE Routine 08/20/2024 2:34 PM CDT Complicated UTI (urinary tract infection) URINALYSIS MACROSCOPIC - [facility] ONLY POC DIP ([facility]) Routine 07/17/2024 1:45 PM CDT Dysuria ESBL (extended spectrum beta-lactamase) producing bacteria infection URINALYSIS MICROSCOPIC Routine 07/17/2024 1:44 PM CDT Dysuria ESBL (extended spectrum beta-lactamase) producing bacteria infection URINE CULTURE Routine 07/17/2024 1:44 PM CDT Dysuria ESBL (extended spectrum beta-lactamase) producing bacteria infection URINALYSIS MACROSCOPIC - [facility] ONLY POC DIP ([facility]) Routine 06/14/2024 11:21 AM CDT Dysuria URINALYSIS MICROSCOPIC STAT 06/14/2024 11:05 AM CDT Dysuria URINE CULTURE Routine 06/14/2024 11:05 AM CDT Dysuria BASIC METABOLIC PANEL STAT 06/04/2024 2:53 PM CDT Recurrent UTI Nausea URINALYSIS MICROSCOPIC Routine 06/04/2024 2:48 PM CDT Recurrent UTI URINE CULTURE Routine 06/04/2024 2:48 PM CDT Recurrent UTI [facility] P[facility] DIP ([facility]) Routine 06/04/2024 2:48 PM CDT Recurrent UTI EXPOSURE (BBF) RAPID HIV Routine 08/18/2020 8:10 AM CDT Employee exposure to blood EXPOSURE (BBF) ANTI HCV Routine 08/18/2020 8:10 AM CDT Employee exposure to blood from Last 3 Months or Most Recently Relevant to Health Maintenance Results * (ABNORMAL) POCT Urinalysis Dipstick Only [[id number]] (08/20/2024 2:51 PM CDT) Only the most recent of4 resultswithin the time period is included. PH 6.5 5.0 - 8.0 [facility] SPECIFIC GRAVITY 1.025 1.001 - 1.035 [facility] GLUCOSE NEGATIVE NEGATIVE [facility] BILIRUBIN NEGATIVE NEGATIVE [facility] KETONES NEGATIVE NEGATIVE [facility] OCCULT BLOOD TRACE(A) NEGATIVE [facility] PROTEIN 1+(A) NEGATIVE [facility] NITRITE POSITIVE(A) NEGATIVE [facility] LEUKOCYTE ESTERASE 2+(A) NEGATIVE [facility] Urine URINE SPECIMEN / Unknown 08/20/2024 2:51 PM CDT 08/20/2024 2:52 PM CDT us Katarzyna Cohen MD URINE Final R esult [facility] [address] [place] [address], [facility] [address] [facility], [place] [address] * (ABNORMAL) URINALYSIS MICROSCOPIC [37919.1] - routine (08/20/2024 2:34 PM CDT) Only the most recent of4 resultswithin the time period is included. RBC >100(A) 0-2, None Seen /HPF 08/21/2024 7:05 AM CDT [facility] WBC >100(A) 0-2, 3-5, None Seen /HPF 08/21/2024 7:05 AM CDT [facility] BACTERIA Many(A) None Seen, Rare, Few Bacteria/ HPF 08/21/2024 7:05 AM CDT [facility] EPITHELIAL CELLS None Seen None Seen, Few Epi/HPF 08/21/2024 7:05 AM CDT [facility] YEAST Present(A) (none) 08/21/2024 7:05 AM CDT [facility] HYALINE CASTS 3-5 0-2, 3-5 /LPF 08/21/2024 7:05 AM CDT [facility] CALCIUM OXALATE CRYSTALS Present(A) (none) 08/21/2024 7:05 AM CDT [facility] CALCIUM PHOSPHATE CRYSTALS Present(A) (none) 08/21/2024 7:05 AM CDT [facility] Urine URINE SPECIMEN / Unknown Non-Blood / Unknown 08/20/2024 2:34 PM CDT 08/20/2024 2:34 PM CDT Katarzyna Cohen MD URINE Final R esult [facility] [address] [place] [address], [place] * (ABNORMAL) URINE CULTURE [27467.2] (08/20/2024 2:34 PM CDT) Only the most recent of4 resultswithin the time period is included. CULTURE RESULT(A) 08/24/2024 7:06 AM CDT [facility] CULTURE >100,000 CFU/mL Klebsiella oxytoca 08/24/2024 7:06 AM CDT [facility] CULTURE >100,000 CFU/mL Citrobacter freundii 08/24/2024 7:06 AM CDT [facility] Comment: Oral cephalosporins are not recommended. May develop resistance during therapy with penicillins and [id number] cephalosporins as a result of loss of repression of AmpC -lactamase. Therefore, isolates that are initially susceptible may become resistant within 3 to 4 days after initiation of therapy. CULTURE 50,000-100,000 CFU/mL Enterococcus species 08/24/2024 7:06 AM CDT [facility] Comment:Further identified a s - Enterococcus gilvus Urine URINE SPECIMEN / Unknown Non-Blood / Unknown 08/20/2024 2:34 PM CDT 08/20/2024 2:34 PM CDT Narrative [facility] - 08/24/2024 7:06 AM CDT Specimen appears contaminated. No further workup pending. us Katarzyna Cohen MD MICROBIOLOGY Final R esult [facility] [address] [place] [address], [place] * BASIC METABOLIC PANEL (06/04/2024 2:53 PM CDT) SODIUM 140 136 - 145 mmol/L 06/04/2024 6:50 PM [facility] POTASSIUM 4.0 3.5 - 5.1 mmol/L 06/04/2024 6:50 PM [facility] CHLORIDE 102 98 - 107 mmol/L 06/04/2024 6:50 PM [facility] CO2,TOTAL 24 22 - 29 mmol/L 06/04/2024 6:50 PM [facility] ANION GAP 14 5 - 18 06/04/2024 6:50 PM [facility] GLUCOSE 81 70 - 99 mg/dL 06/04/2024 6:50 PM [facility] CALCIUM 10.2 8.8 - 10.4 mg/dL 06/04/2024 6:50 PM [facility] Comment: Reference ranges for this test were updated on 12/13/2023 to reflect our healthy population more accurately. Reference range changes are not retroactively applied to results, but previous results using the same methodology can be interpreted in the context of the new reference range. BUN 13 6 - 20 mg/dL 06/04/2024 6:50 PM [facility] CREATININE 1.05 0.70 - 1.20 mg/dL 06/04/2024 6:50 PM [facility] BUN/CREAT RATIO 12 10 - 20 6:50 PM [facility] eGFR >90 >90 mL/min/1.7 3m2 06/04/2024 6:50 PM [facility] Comment:As of 2021, eG FR is calculated by the CKD-EPI creatinine equation without race adjustment. eGFR can be influenced by muscle mass, exercise, and diet. The reported eGFR is an estimation only and is only applicable if the renal function is stable. Blood BLOOD SPECIMEN / Unknown [facility] / Unknown 06/04/2024 2:53 PM CDT 06/04/2024 2:53 PM CDT us Thelma Miller DO CHEMISTRY Final Resu lt Performing Organization Address City/[facility]/ZIP Co de Phone Number [facility] [address] [place] [address] * EXPOSURE (BBF) RAPID HIV (08/18/2020 8:10 AM CDT) SOURCE RAPID HIV SCREEN Non-Reacti ve Non-Reacti ve 08/18/2020 2:42 PM CDT [facility] Blood BLOOD SPECIMEN / Unknown Venipuncture / Unknown 08/18/2020 8:10 AM CDT 08/18/2020 8:11 AM CDT us Eliana Guerra MD SEND OUTS Final Resul t Performing Organization Address [facility] Co de Phone Number [email or web address] [facility] [address] [place] [address], [place] * EXPOSURE (BBF) ANTI HCV (08/18/2020 8:10 AM CDT) HEPATITIS C ANTIBODY Non-React alex Non-React alex 08/18/2020 2:57 PM CDT [facility] Comment:Antibodies to HCV no t detected; does not exclude the possibility of exposure to HCV. Blood BLOOD SPECIMEN / Unknown Venipuncture / Unknown 08/18/2020 8:10 AM CDT 08/18/2020 8:11 AM CDT us Eliana Guerra MD SEND OUTS Final Resul t Performing Organization Address City/[facility]/ZIP Co de Phone Number [email or web address] [address] [place] [address], from Last 3 Months or Most Recently Relevant to Health Maintenance Additional Health Concerns Infection Onset Date Last Indicated ESBL 06/14/2024 06/14/2024 [facility] Care Teams Rig Hand Relationship Specialty Start Date End Date [place] [address] PCP - General Family Practice 10/20/17
--- OUTSIDE RECORDS SUMMARY | 2024-08-25 22:47 | XMS_ITS | Encounter Summary ---
Author Organization [facility] Address [address] [place] [address] Care Team Providers Care Heddler Name Role Phone Elsewhere, Pcp Primary Care Provider Unavailabl e Reason for Referral * Outpatient (Routine) - Authorized Specialty Diagnoses / Procedures Referred By Ye lund Referred To Contact Orthopedic Surgery Mike Salomon Jr., P.A.-C. [address] [place] [phone] Phone: tel: fax: Jose Crawford M.D. [address] [place] [phone] Phone: tel: fax: Referral ID Status Reason Start Date Expiration Date V isits Requested Visits Authorized [id number] Authorized 07/23/2024 01/22/2026 1 1 Encounter Details Date Type Department Care Team (Late st Contact Info) Description 07/23/2024 Orders Only Department of Orthopedic Surgery in [place], [place] [address] [place] [phone] Mike Salomon Jr., P.A.-C. 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 I have a [facility] place to live 05/29/2024 Education Answer Date Recorded What is the highest level of school you have completed or the highest degree you have received? 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 [address] [place] [phone] 09/19/2024 1:00 PM CDT Office Visit Department of Physical Medicine and Rehabilitation in [address] [phone] David Weir D.O. [address] [place] [phone] 10/09/2024 11:45 AM CDT Office Visit Department of Orthopedic Surgery in [address] [phone] Jose Crawford M.D. [address] [place] [phone] Scheduled Referrals Name Type Priority Associated Diagnoses Order Schedule Orthopedic Surgery office visit (clinic) Outpatient Referral Routine Expected: 07/23/2024, Expires: 10/23/2025 documented as of this encounter Visit Diagnoses Not on filedocumented in this encounter Additional Health Concerns Assessment Noted Time PHQ-9 Depression Total Score: 5 07/07/19 24 9:17 PM CDT documented as of this encounter Care Teams Heddler Relationship Specialty Start Date End Date Elsewhere, Pcp PCP - General Internal Medicine 05/22/18 documented as of this encounter
--- OUTSIDE RECORDS SUMMARY | 2024-08-25 22:47 | XMS_ITS | Encounter Summary ---
Author Organization [facility] Address [address] [place] [address] Care Team Providers Care Computer Language Coder Name Role Phone Elsewhere, Pcp Primary Care Provider Unavailabl e Encounter Details Date Type Department Care Team (Late st Contact Info) Description 06/14/2024 Clinical Communication Department of Orthopedic Surgery in [place], [place] [address] [place] [address] Jose Crawford M.D. 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 Utilities Answer Date Recorded In the past 12 months has e [employer], gas, oil, or water [employer] threatened to shut off services in your [...] your living situation today? I have a [facility] place to live 05/29/2024 Education Answer Date Recorded What is the highest level of school you have completed or the highest degree you have received? Some college, no degree 05/24/2020 Sex and Gender Information Value Date Recorded Sex Assigned at Male 10/29/2020 12:38 PM CDT Legal Sex Male 1:45 PM CITY [employer] Gender Identity Male 07/15/2019 8:59 AM CDT Sexual Orientation Straight 07/15/2019 8: 59 AM CDT documented as of this encounter Plan of Treatment Upcoming Encounters Date Type Department Care Team (Latest Contact Info) Description 09/13/2024 1:30 PM CDT Clinical Communication Virtual Review in [place], [place] [address] [place] [address] 09/17/2024 3:30 PM CDT Telemedicine Department of Urology in [place], [place] [address] [place] [phone] Kate Egan P.A.-C. [address] [place] [phone] 09/19/2024 1:00 PM CDT Office Visit Department of Physical Medicine and Rehabilitation in [place], [place] [address] [place] [address] David Weir D.O. [address] [place] [phone] 10/09/2024 11:45 AM CDT Office Visit Department of Orthopedic Surgery in [place], [place] [address] [place] [phone] Jose Crawford M.D. [address] [place] [phone] documented as of this encounter Visit Diagnoses Not on filedocumented in this encounter Additional Health Concerns Assessment Noted Time PHQ-9 Depression Total Score: 5 07/07/19 24 9:17 PM CDT documented as of this encounter Care Teams Computer Language Coder Relationship Specialty Start Date End Date Elsewhere, Pcp PCP - General Internal Medicine 05/22/18 documented as of this encounter
--- OUTSIDE RECORDS SUMMARY | 2024-08-25 22:47 | XMS_ITS | Clinical Summary ---
Author Organization [facility] Address [address] [place] [address]. [place] [address] Care Team Providers Care Cement Boat And Barge Loader Name Role Phone Kei Eugene MD Unavailable [phone] Eliana Guerra MD Primary Care Provider [phone] Eliana Guerra MD Unavailable [phone] Eliana Guerra MD Unavailable [phone] Unavailable Unavailable Jody Obregon APRN PM TECHNICIAN Unavailable [phone] Efrain Crow PA-C Unavailable [phone] Allergies No known active allergies Medications famotidine [...] mouth daily. 30 tablet 1 5 Active Corrine León Standard 1.4 Plain 11 OzIndications:Darius ght loss Place 1,625 mLs into GJ tube daily. Infuse via pump 70ml/hr Water flush: 120ml q 3 hours 82732 mL 11 06/18/2024 1:08 PM CDT 5 Active Active Problems Problem Noted Date Diagnosed Date Nausea 03/02/2024 Epigastric abdominal pain 03/02/2024 Weight loss 03/02/2024 Encounters Date Type Department Care Team Description 08/17/2024 Home Infusion [facility] [address] [place] [phone] Francine Duval LPN 06/25/2024 Home Infusion [facility] [address] [place] [phone] Anastacia Rodriguez [address] 06/04/2024 Home Infusion [facility] [address] [place] [phone] Francine Duval LPN from Last 3 Months Social History Tobacco [...] Date Recorded Do you have housing? (Isael herzog is defined as stable permanent housing and does not include staying outside in a car, in a tent, in an abandoned building, in an overnight longterm, or couch-surfing.) Yes 03/03/2024 Are you worried [...] on file Legal Sex Male 9:18 AM COVER OPERATOR Gender Identity Not on file Sexual Orientation Not on file Last Filed Vital Signs Vital Sign Reading Time Taken Comments Blood Pressure 118/68 03/24/2024 3:42 PM COVER OPERATOR Pulse 82 03/24/2024 3:42 PM COVER OPERATOR Temperature 36.6 C (97.8 F) 03/24/2024 3:42 PM COVER OPERATOR Respiratory Rate 16 03/24/2024 3:42 PM COVER OPERATOR Oxygen Saturation 99% 03/24/2024 3:42 PM COVER OPERATOR Inhaled Oxygen Concentration - - Weight 65.7 kg (144 lb 14.4 oz) 025 10:51 AM COVER OPERATOR Height 188 cm (6' 2.02) 03/15/2024 10: 55 AM COVER OPERATOR Body Mass Index 18.6 03/15/2024 10:55 AM COVER OPERATOR Plan of Treatment Scheduled Procedures Name Priority Associated Diagnoses Date/Ti me SURGICAL EXTRACTION, TOOTH Chronic pericoronitis Health Maintenance Due Date Last Done Comments ADVANCE CARE PLANNING 2000 ANNUAL REVIEW OF HM ORDERS 2000 YEARLY PREVENTIVE VISIT 11/20/2023 11/20/19, 03/13/2021, 03/07/2020 INFLUENZA VACCINE (#1) 2024 , 11/19/2022, 04/16/2022, Additional history exists DTAP/TDAP/TD VACCINE (7 - Td or Tdap) 11/19/2032 11/19/2022, 09/22/2012, 11/11/2004, Additional history exists ZOSTER VACCINE (1 of 2) 2050 PNEUMOCOCCAL VACCINE: PEDIATRICS (0 to 5 YEARS) AND AT-RISK PATIENTS (6 to 49 YEARS) Aged Out 04/21/2001, 01/12/2001, 2000 No longer eligible based on patient's age to complete this topic HEPATITIS B VACCINE Completed 10/20/2001, 01/12/2001, 2000 MENINGITIS VACCINE Completed 02/23/2017, 0 02/23/2017, 09/02/2015 HEPATITIS C SCREENING Completed 08/18/2020 HIV SCREENING Completed 08/18/2020 HPV VACCINE Completed 10/28/2020, 02/08, 10/19/2019 COVID-19 VACCINE Completed 11/02/2023, 11/2022, 02/18/2021, Additional history exists PHQ-2 (once per calendar year) Completed 02/09/2024 MENINGITIS B VACCINE Aged Out No long er eligible based on patient's age to complete this topic Insurance Bplats [employer] Address: [id number] [place] [id number] [employer] [facility] Address: [address] [place] [phone] Advance Directives For more information, please contact: [phone] * Full Code (Latest Code Status on File) Date Activated Date Inactivated Comments 03/03/2024 12:32 AM 03/14/2024 4:32 PM All basic an d advanced life-sustaining interventions are performed as appropriate Question Answer Comments Code status determined by: Discussion with patie nt/ legal decision maker Care Teams Cement Boat And Barge Loader Relationship Specialty Start Date End Date Eliana Guerra MD [address] [place] [address] PCP - General Family Medicine 03/04/24 Kei Eugene MD [address] [place] [address] [id number] Assigned Musculoskeletal Provider 03/01/24 Eliana Guerra MD [address] [address] Home Infusion Following Provider Family Medicine 03/11/24 Eliana Guerra MD [facility] [address] [place] [address] Home Infusion Following Provider Family Medicine 03/14/[address] [facility] Registered Dietitian Dietitian 03/14/24 Jody Obregon APRN PM TECHNICIAN Home Infusion Following Provider 03/14/24 Efrain Crow PA-C [facility] [address] [address] Home Infusion Following Provider Gastroenterology 06/25/24
--- OUTSIDE RECORDS SUMMARY | 2024-08-25 22:47 | XMS_ITS | Encounter Summary ---
Author Organization [facility] Address [address] [place] [address]. [place] [address] Care Team Providers Care Supervisor Inspection Department Name Role Phone Kei Eugene MD Unavailable [phone] Eliana Guerra MD Primary Care Provider [phone] Eliana Guerra MD Unavailable [phone] Eliana Guerra MD Unavailable [phone] Unavailable Unavailable Jody Obregon APRN COPYING MACHINE MECHANIC Unavailable [phone] Efrain Crow PA-C Unavailable [phone] Regina Monroy RN Unavailable Unavailabl e Encounter Details Date Type Department Care Team (Late st Contact Info) Description 06/25/2024 Home Infusion [facility] [address] [place] [phone] Anastacia Rodriguez, JESUS ALBERTO Social History [...] in an abandoned building, in an overnight intermediate, or couch-surfing.) Yes 03/03/2024 Are you worried [...] on file Legal Sex Male 9:18 AM FISHER NET Gender Identity Not on file Sexual Orientation Not on file documented as of this encounter Plan of Treatment Scheduled Procedures Name Priority Associated Diagnoses Date/Ti me SURGICAL EXTRACTION, TOOTH Chronic pericoronitis documented as of this encounter Visit Diagnoses Not on filedocumented in this encounter Care Teams Supervisor Inspection Department Relationship Specialty Start Date End Date Eliana Guerra MD [id number] [place] [address] PCP - General Family Medicine 03/04/24 Kei Eugene MD [address] [place] [address] Assigned Musculoskeletal Provider 03/01/24 Eliana Guerra MD [address] [address] Home Infusion Following Provider Family Medicine 03/11/24 Eliana Guerra MD [facility] [address] [place] [address] Home Infusion Following Provider Family Medicine 03/14/[address] [facility] Registered Dietitian Dietitian 03/14/24 Jody Obregon APRN COPYING MACHINE MECHANIC Home Infusion Following Provider 03/14/24 Efrain Crow PA-C [facility] [address] [address] Home Infusion Following Provider Gastroenterology 06/25/24 Regina Monroy, KASIE [facility] Resource Team 07/16/24 07/17/24 documented as of this encounter
--- OUTSIDE RECORDS SUMMARY | 2024-08-25 22:47 | XMS_ITS | Encounter Summary ---
Author Organization [facility] Address [address] [place] [address] Care Team Providers Care Sales Vice President Name Role Phone Elsewhere, Pcp Primary Care Provider Unavailabl e Reason for Visit * Reason Onset Date Comments Outside Doctor Calling 07/19/2024 Encounter Details Date Type Department Care Team (Latest Contact Info) Description 07/19/2024 Clinical Communication Department of Urology in [place], [place] [address] [place] [phone] Kate Egan P.A.-C. 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 I have a [facility] place to live 05/29/2024 Education Answer Date Recorded What is the highest level of school you have completed or the highest degree you have received? Some college, no degree 05/24/2020 Sex and Gender Information Value Date Recorded Sex Assigned at Male 10/29/2020 12:38 PM CDT Legal Sex Male 1:45 PM PHYSICAL THERAPY ATTENDANT Gender Identity Male 07/15/2019 8:59 AM CDT Sexual Orientation Straight 07/15/2019 8: 59 AM CDT documented as of this encounter Miscellaneous Notes * Telephone Encounter - Kate Egan P.A.-C. - 07/19/2024 3:56 PM CDT Spoke with Paramjit's primary care provider, Dr. Eliana Guerra. Patient was recently discharged following a one-month hospital stay. He was seen in hospital follow up with his primary care provider and noted symptoms of possible urinary tract infection. Culture indicates probable contamination, howeverpatient is scheduled for urodynamic study next week. We did discuss plan for treatment with antibiot ic therapy given upcoming urologic intervention. Patient will be on culture directed antibiotics atthe time of urodynamic study on 07/25. documented in this encounter Plan of Treatment Upcoming Encounters Date Type Department Care Team (Latest Contact Info) Description 09/13/2024 1:30 PM CDT Clinical Communication Virtual Review in [place], [place] [address] [place] [phone] 09/17/2024 3:30 PM CDT Telemedicine Department of Urology in [address] [phone] Kate Egan P.A.-C. [address] [place] [phone] 09/19/2024 1:00 PM CDT Office Visit Department of Physical Medicine and Rehabilitation in [address] [phone] David Weir D.O. [address] [place] [phone] 10/09/2024 11:45 AM CDT Office Visit Department of Orthopedic Surgery in [address] [phone] Jose Crawford M.D. [address] [place] [phone] documented as of this encounter Visit Diagnoses Not on filedocumented in this encounter Additional Health Concerns Assessment Noted Time PHQ-9 Depression Total Score: 5 07/07/19 24 9:17 PM CDT documented as of this encounter Care Teams Sales Vice President Relationship Specialty Start Date End Date Elsewhere, Pcp PCP - General Internal Medicine 05/22/18 documented as of this encounter
--- OUTSIDE RECORDS SUMMARY | 2024-08-25 22:48 | XMS_ITS | Encounter Summary ---
Author Organization [facility] Address [address], [place] [address] Care Team Providers Care College Physics Instructor Name Role Phone Eliana Guerra MD Primary Care Provider [phone] Reason for Visit * Reason Comments Request For Records Encounter Details Date Type Department Care Team ([facility] st Contact Info) Description 03/15/2024 Telephone Orthopedics at [address] [address] Anahi Van MD [address] [place] [address] Request For Records Social History Tobacco Use Types Packs/Day Years Used Date Smoking Tobacco: Never Assessed [facility] Utilities Answer Date Recorded In the past 12 months has [facility] electric, gas, oil, or water company threatened [...] any time in the past 12 m [facility], were you homeless or living in a residential (including now)? No 07/04/2024 Sex and Gender Information Value Date Recorded Sex Assigned at Not on file Legal Sex Male 5:33 PM HOSTEL MANAGER Gender Identity Not on file Sexual Orientation Not on file documented as of this encounter Functional Status documented as of this encounter Nursing Notes * Myra Vlea - 03/21/2024 4:43 PM CST Imaging disc received from [facility], placed in provider mailbox. Myra Vela 03/21/2024, 4:43 PM EL MANAGER * Dedra Cortez RN - 03/15/2024 3:36 PM CST Virgil notified and is working on. Dedra Cortez RN 03/15/2024, 3:40 PM EL MANAGER * Myra Vela - 03/15/2024 3:18 PM CST Images from the original note were not included. Received a fax regarding request that was sent for records from [employer]. Pleas amend request as appropriate and resubmit. Thanks! Myra Vela 03/15/2024, 3:19 PM EL MANAGER documented in this encounter Plan of Treatment Upcoming Encounters Date Type Department Care Team (Late st Contact Info) Description 09/17/2024 10:10 AM CDT Appointment Orthopedics at [address] [place] [address] Nilay Ceron MD [address] [facility] [place] [address] documented as of this encounter Visit Diagnoses Not on filedocumented in this encounter Care Teams College Physics Instructor Relationship Specialty Start Date End Date Eliana Guerra MD [address] [facility] [place] [address] PCP - General Family Practice 12/04/19 documented as of this encounter
--- OUTSIDE RECORDS SUMMARY | 2024-08-25 22:48 | XMS_ITS | Encounter Summary ---
Author Organization [facility] Address [address] [place] [address]. [place] [address] Care Team Providers Care Burring Wheel Operator Name Role Phone Kei Eugene MD Unavailable [phone] Eliana Guerra MD Primary Care Provider [phone] Eliana Guerra MD Unavailable [phone] Eliana Guerra MD Unavailable [phone] Unavailable Unavailable Jody Obregon APRN SECTION LABORER Unavailable [phone] Jody Obregon APRN SECTION LABORER Unavailable + [phone] Efrain Crow PA-C Unavailable [phone] Regina Monroy RN Unavailable Unavailabl e Encounter Details Date Type Department Care Team (Late st Contact Info) Description 03/26/2024 Home Infusion [facility] [address] [place] [phone] Weight loss (Primary Dx) Social History [...] in an abandoned building, in an overnight [facility], or couch-surfing.) Yes 03/03/2024 Are you worried [...] on file Legal Sex Male 9:18 AM BEHAVIORAL CONSULTANT Gender Identity Not on file Sexual Orientation Not on file documented as of this encounter Progress Notes * Anastacia Rodriguez, RD - 03/26/2024 8:49 AM CST [facility] Nutrition Follow up Anthropometrics/Weight Goals [...] per pt Enteral Nutrition Orders Enteral Formula: [employer] Standard 1.4 Rate/Frequency: 70ml/hr--up to 5 cartons/day Water Flushes: 120ml q 3 hours Enteral Nutrition Provides: 2275 (35kcal/kg), 100gm protein (1.5gm/kg), 1170ml free water + flushes Implementation Intervention: Received message from field RN: Pt can't advance his TF past 60 mL/hr without gettingheartburn and nausea. He is wondering if there is a different type of formula he can try. I RD spoke with pt. He reports he [...] to surgery April [address], [facility], [facility] Home Infusion Dietitian VIORAL CONSULTANT documented in this encounter Plan of Treatment Scheduled Procedures Name Priority Associated Diagnoses Date/Ti me SURGICAL EXTRACTION, TOOTH Chronic pericoronitis documented as of this encounter Visit Diagnoses Diagnosis Weight loss- Primary Loss of weight documented in this encounter Care Teams Burring Wheel Operator Relationship Specialty Start Date End Date Eliana Guerra MD [address] [facility] [address] [place] [address] PCP - General Family Medicine 03/04/24 Kei Eugene MD [facility] [place] [address] Assigned Musculoskeletal Provider 03/01/24 Eliana Guerra MD [facility] [address] [place] [address] Home Infusion Following Provider Family Medicine 03/11/24 Eliana Guerra MD [facility] [address] [place] [address] Home Infusion Following Provider Family Medicine 03/14/[address] [facility] Registered Dietitian Dietitian 03/14/24 Jody Obregon APRN SECTION LABORER [facility] [address] [place] [address] Home Infusion Following Provider 03/20/24 04/04/24 Jody Obregon APRN SECTION LABORER [facility] [address] [place] [address] Home Infusion Following Provider 03/14/24 Efrain Crow PA-C [facility] [address] [address] Home Infusion Following Provider Gastroenterology 06/25/24 Regina Monroy, KASIE [facility] Resource Team 07/16/24 07/17/24 documented as of this encounter
--- OUTSIDE RECORDS SUMMARY | 2024-08-25 22:48 | XMS_ITS | Patient Health Record ---
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 Problem Acquired pectus carinatum (29793313) 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 Plan Of Treatment Pending Test Test Name Order Date C-Reactive Protein (CRP) (CRP) 8 Insurance Providers Payer Name Payer Address Payer Phone Subscriber Number Group Number Insured Name Patient Relationship to Insured Coverage Start Date Coverage End Date BLUE PLUS PMAP-20 [address] [address] [place] [address] [id number] [facility] Paramjit Boyce Self - patient is the insured 9 Medical (General) History Medical History History ICD Code Syndromes/anomalies: Connective tissue d isorder Other: Pectus excavatum, Acquired pectus carinatum Surgical History Surgery Date(Month/Year) Daja procedure for pectus excavatum 10/08 10/25
--- OUTSIDE RECORDS SUMMARY | 2024-08-25 22:48 | XMS_ITS | Encounter Summary ---
Author Organization [facility] Address [address] [place] [address]. [place] [address] Care Team Providers Care Gun Synchronizer Name Role Phone Kei Eugene MD Unavailable [phone] Eliana Guerra MD Primary Care Provider [phone] Eliana Guerra MD Unavailable [phone] Eliana Guerra MD Unavailable [phone] Unavailable Unavailable Jody Obregon APRN POLICE INSPECTOR Unavailable + [phone] Jody Obregon APRN POLICE INSPECTOR Unavailable + [phone] Efrain Crow PA-C Unavailable [phone] Regina Monroy RN Unavailable Unavailabl e Encounter Details Date Type Department Care Team (Late st Contact Info) Description 04/03/2024 Home Infusion [facility] [address] [place] [phone] Social History Tobacco Use Types Packs/Day [...] on file Legal Sex Male 9:18 AM DAMPENER Gender Identity Not on file Sexual Orientation Not on file documented as of this encounter Plan of Treatment Scheduled Procedures Name Priority Associated Diagnoses Date/Ti me SURGICAL EXTRACTION, TOOTH Chronic pericoronitis documented as of this encounter Visit Diagnoses Not on filedocumented in this encounter Care Teams Gun Synchronizer Relationship Specialty Start Date End Date Eliana Guerra MD [address] [place] [address] PCP - General Family Medicine 03/04/24 Kei Eugene MD [address] [place] [address] Assigned Musculoskeletal Provider 03/01/24 Eliana Guerra MD [facility] [address] [facility] [place] [address] Home Infusion Following Provider Family Medicine 03/11/24 Eliana Guerra MD [facility] [address] [facility] [place] [address] Home Infusion Following Provider Family Medicine 03/14/[address] [facility] Registered Dietitian Dietitian 03/14/24 Jody Obregon APRN POLICE INSPECTOR [facility] [address] [place] [address] Home Infusion Following Provider 03/20/24 04/04/24 Jody Obregon APRN POLICE INSPECTOR [facility] [address] [place] [address] Home Infusion Following Provider 03/14/24 Efrain Crow PA-C [facility] [address] [address] Home Infusion Following Provider Gastroenterology 06/25/24 Regina Monroy, KASIE [facility] Resource Team 07/16/24 07/17/24 documented as of this encounter
--- OUTSIDE RECORDS SUMMARY | 2024-08-25 22:48 | XMS_ITS | Encounter Summary ---
Author Organization [facility] Address [address], [place] [address] Care Team Providers Care Yard Operator Name Role Phone Eliana Guerra MD Primary Care Provider [phone] Reason for Visit * Reason Comments ERRONEOUS ENTRY Encounter Details Date Type Department Care Team (Late st Contact Info) Description 07/16/2024 Telephone Specialty Center [facility] [address] [place] [address] Unassigned, Provider [address] [place] [address] ERRONEOUS ENTRY Social History Tobacco Use Types Packs/Day Years Used Date Smoking Tobacco: Never Assessed [facility] Utilities Answer Date Recorded In the past [address] [facility] electric, gas, oil, or water [employer] threatened to shut off services in your [...] on file Legal Sex Male 5:33 PM STREETCAR REPAIRER Gender Identity Not on file Sexual Orientation Not on file documented as of this encounter Plan of Treatment Upcoming Encounters Date Type Department Care Team (Late st Contact Info) Description 09/17/2024 10:10 AM CDT Appointment Orthopedics at [address] [place] [address] Nilay Ceron MD [address] [facility] [place] [address] documented as of this encounter Visit Diagnoses Not on filedocumented in this encounter Care Teams Yard Operator Relationship Specialty Start Date End Date Eliana Guerra MD [address] [place] [address] PCP - General Family Practice 12/04/19 documented as of this encounter
--- OUTSIDE RECORDS SUMMARY | 2024-08-25 22:48 | XMS_ITS ---
Author Organization [facility] Address [address] [place] [address] Care Team Providers Care Community Living Instructor Name Role Phone Kei Eugene MD Unavailable [phone] Eliana Guerra MD Primary Care Provider [phone] Eliana Guerra MD Unavailable [phone] Eliana Guerra MD Unavailable [phone] Unavailable Unavailable Jody Obregon APRN ASSET PROTECTION AGENT Unavailable [phone] Efrain Crow PA-C Unavailable [phone] Enteral Status:Enrolled (Active) Start date:03/05/2024 Enrollment date:03/14/2024 Linked medications:Nutritional Supplements (Active) Linked problems:Epigastric abdominal pain (Active), Nausea (Active), Weight loss (Active) Related program episode:Home Infusion (Active) Continued Care and Services Coordination
--- OUTSIDE RECORDS SUMMARY | 2024-08-25 22:48 | XMS_ITS | Patient Health Record ---
Author Organization [facility] Address [address] [facility] [address] [place], [place] [id number] Care Team Providers Care Surplus Property Disposal Agent Name Role Phone Charlie GARCIA, Eliana Primary Care Provider LexxrenettamaryLanette Juaquin [phone] Reason For Referral No Information Problems Problem Type SNOMED Code ICD Code Onset Dates Problem Status W/U Status Risk Notes Problem Pectus excavatum (654105851) Pectus excavatum (Q67.6) Active confirmed Problem Environmental allergy (913392527) Environmental allergies (Z91.09) Active confirmed Problem Low back pain (557426946) Low back pain (M54.5) Active confirmed Problem Underweight (186082450) Underweight (R63.6) Active confirmed Problem Pediatric body mass index (BMI) of less than 5th percentile for age (Z68.51) Active confirmed Problem Restless legs (92036942) Restless leg (G25.81) Active confirmed Plan Of Treatment No Information Insurance Providers Payer Name Payer Address Payer Phone Subscriber Number Group Number Insured Name Patient Relationship to Insured Coverage Start Date Coverage End Date [place] - [facility] [address] [address] [place] [address] [id number] Paramjit Boyce Self - patient is the insured Medical (General) History Medical History History ICD Code environmental allergies GERD chronic back pain
--- OUTSIDE RECORDS SUMMARY | 2024-08-25 22:48 | XMS_ITS | Encounter Summary ---
Author Organization [facility] Address [address] [place] [address] Care Team Providers Care Canal Equipment Maintenance Supervisor Name Role Phone Eliana Guerra MD Primary Care Provider [phone] Reason for Visit * Reason Comments Appointment Questions Encounter Details Date Type Department Care Team (Late st Contact Info) Description 08/17/2024 Telephone [facility] Pain Management [address] [facility]. [place], [place] [phone] Mateusz Crawford, DO [address] [place], [place] [phone] Appointment Questions Social History Tobacco Use Types Packs/Day Years Used Date Smoking Tobacco: Never Smokeless Tobacco: Never [facility] Utilities Answer Date Recorded In the past 12 months has [facility] electric, gas, oil, or water company [...] any time in the past 12 m [facility], were you homeless or living in a long term (including now)? 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 Malia Palencia RN 08/17/2024, 4:21 PM * Diaz Naik - 08/17/2024 3:57 PM CDT Patient called back and stated he is okay with seeing male provider for appointment. Diaz Naik 08/17/2024, 3:58 PM * Nieves Simpson CMA - 08/17/2024 3:48 PM CDT Note in chart states patient prefers females for patient cares. Left message to see if ok to see Dr. Crawford as is male on 08/20/24. Nieves Parkinson CMA([facility]) 08/17/2024 3:49 PM documented in this encounter Plan of Treatment Upcoming Encounters Date Type Department Care Team (Late st Contact Info) Description 09/17/2024 10:10 AM CDT Appointment Orthopedics at [address] [place] [address] Nilay Ceron MD [address] [facility] [place] [address] documented as of this encounter Visit Diagnoses Not on filedocumented in this encounter Care Teams Canal Equipment Maintenance Supervisor Relationship Specialty Start Date End Date Eliana Guerra MD [address] [place] [address] PCP - General Family Practice 12/04/19 documented as of this encounter
--- OUTSIDE RECORDS SUMMARY | 2024-08-25 22:48 | XMS_ITS | Encounter Summary ---
Author Organization [facility] Address [address], [place] [address] Care Team Providers Care Hr Clerk Name Role Phone Eliana Guerra MD Primary Care Provider Reason for Visit * Reason Comments QUESTIONS, GENERAL Encounter Details Date Type Department Care Team ([facility] st Contact Info) Description 06/25/2024 Telephone Orthopedics at [address] [address] Anahi Van MD [address] [place] [id number] QUESTIONS, GENERAL Social History Tobacco Use Types Packs/Day Years Used Date Smoking Tobacco: Never Assessed [facility] Utilities Answer Date Recorded In the past 12 months has [facility] electric, gas, oil, or water company threatened to shut off services in your home? No 06/19/2024 Humiliation, Afraid, Rape, a nd Kick questionnaire Answer Date Recorded Within the last year, have y ou been afraid of your partner or ex-partner? Patient unable to answer 06/19/2024 Within the last year, have y ou been humiliated or emotionally abused in other ways by your partner or ex-partner? Patient unable to answer 06/19/2024 Within the last year, have y ou been kicked, hit, slapped, or otherwise physically hurt by your partner or ex-partner? Patient unable to answer 06/19/2024 Within the last year, have y ou been raped or forced to have any kind of sexual activity by your partner or ex-partner? Patient unable to answer 06/19/2024 Hunger Vital Sign Answer Date Recorded Within the past 12 months, y ou worried that your food would run out before you got the money to buy more. Never true 06/20/19 25 Within the past 12 months, t he food you bought just didn't last and you didn't have money to get more. Never true 06/19/2024 PRAPARE - Transportation Answer Date Re corded In the past 12 months, has l ack of transportation kept you from medical appointments or from getting medications? No 06/07 In the past 12 months, has l ack of transportation kept you from meetings, work, or from getting things needed for daily living? No 06/19/2024 Housing Stability Vital Sign Answer Tor e Recorded In the last 12 months, was t here a time when you were not able to pay the mortgage or rent on time? No 06/19/2024 In the past 12 months, how m any times have you moved where you were living? 0 06/19/2024 At any time in the past 12 m [facility], were you homeless or living in a skilled nursing (including now)? 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 Relayed 's message to patient. Joel White 06/26/2024, 11:37 AM * Jennifer Garcia RN - 06/26/2024 10:[address] Van: We are going to see him and get his casts off in the hospital. Left message for pt to call back at [phone] and press the option for [facility]. Jennifer Garcia RN 06/26/2024, 10:11 AM * Dedra Cortez RN - 06/25/2024 11:42 AM CDT I called and spoke with Paramjit who states that at his last appointment with Dr Van he was placed into a cast that she had informed him that it would be on for 3-4 weeks depending. He states that he stated at that time that it would not be a problem as he was not working. He states that since then he now has a consultation and he is wanting to get it off. He states also that he is currently [facility] after an injury to his back. He states that the cast is hindering his mobility andhis therapist are wondering if he could get it off now as the cast is limiting his mobility. Pleaseadvise. Thank you. Dedra Cortez RN 06/25/2024, 11:49 AM * Maikol Marsh - 06/25/2024 11:28 AM CDT Patient states Dr. Van placed a cast on R ankle- Patient declined further info and would like to speak to the care team as it is a little complicated. Please call patient to discuss. DOS 04/27/24 Repair dislocation peroneal tendons with fibular groove deepening and longus to brevis tenodesis (Right) Maikol Marsh 06/25/2024, 11:31 AM documented in this encounter Plan of Treatment Upcoming Encounters Date Type Department Care Team (Late st Contact Info) Description 09/17/2024 10:10 AM CDT Appointment Orthopedics at [address] [place] [id number] Nilay Ceron MD [address] [facility] [place] [address] documented as of this encounter Visit Diagnoses Not on filedocumented in this encounter Care Teams Hr Clerk Relationship Specialty Start Date End Date Eliana Guerra MD [address] [facility] [address] PCP - General Family Practice 12/04/19 documented as of this encounter
--- OUTSIDE RECORDS SUMMARY | 2024-08-25 22:48 | XMS_ITS | Clinical Summary ---
Author Organization [email or web address] Address [address], [place] [address] Care Team Providers Care Mule Rider Name Role Phone Eliana Guerra MD Primary Care Provider [phone] Source Comments You are receiving this document as you are listed as the primary care provider,follow-up provider, or the patient has been referred to you for consultation.This is in compliance with the Medicare and[facility] EHR Incentive Program,which states Providers who transition their patient to another setting of careor provider of care or refers their patient to another provider of care shouldprovide summary care record for each transition of care or referral. [employer] Allergies Active Allergy Reactions Criticality Noted Date Comments Other Other, see comments 04/13/2024 HAS AN ALLERGY TO SOME KIND OF SUGAR HAVING TESTING TO DETERMINE TYPE Medications metoclopramide (REGLAN) 5 MG tabletIndicati ons:Gastroesop hageal Reflux Disease Take 1 Tablet (5 mg) by mouth three times daily before meals. Indications: Gastroesophageal Reflux Disease 03/01/19 25 Active traZODone (DESYREL) 50 MG tablet Take 1 Tablet (50 mg) by mouth daily at bedtime. Active ibuprofen (MOTRIN) 400 MG tabletIndicati ons:Pain Take 1 Tablet (400 mg) by mouth every 6 hours as needed for Pain (May be given with other analgesics). Indications: Pain 100 Tablet 11 07/05/19 25 Active acetaminophen (TYLENOL) 325 MG tabletIndicati ons:Pain Take 2 Tablets (650 mg) by mouth every 6 hours as needed. Indications: Pain 100 Tablet 07/05/19 25 Active famotidine (PEPCID) 20 MG tabletIndicati ons:Gastroesop hageal Reflux Disease Take 1 Tablet (20 mg) by mouth two times a day. Indications: Gastroesophageal Reflux Disease 07/05/19 25 Active omeprazole (PRILOSEC OTC) 20 MG enteric coated tabletIndicati ons:Gastroesop hageal Reflux Disease Take 1 Tablet (20 mg) by mouth two times a day. Indications: Gastroesophageal Reflux Disease 07/05/19 25 Active FLUoxetine (PROZAC) 20 MG capsule Take 1 Capsule (20 mg) by mouth daily. 90 Capsule 3 07/06/19 25 026 Active loratadine (CLARITIN) 10 MG tablet Take 1 Tablet (10 mg) by mouth two times a day. 07/05/19 25 Active cyclobenzaprin e (FLEXERIL) 5 MG tablet Take 1 Tablet (5 mg) by mouth three times a day as needed for Muscle Spasms. 07/14/19 25 Active gabapentin (NEURONTIN) 300 MG capsuleIndicat ions:nerve pain Take 3 Capsules (900 mg) by mouth three times a day. Indications: nerve pain 90 Capsule 3 5 9:00 AM CDT 07/14/19 25 026 Active bisacodyl (DULCOLAX) 10 MG suppositoryInd ications:Const ipation Unwrap and insert 1 Suppository (10 mg) rectally daily as needed for Constipation .No stool in the last 3 days. Indications: Constipation 30 Each 3 5 9:00 AM CDT 07/14/19 25 Active polyethylene glycol 3350 (GLYCOLAX) 17 GM/SCOOP powderIndicati ons:Constipati on Take 17 g by mouth daily as needed. Fill to top of indicated section in lid (17 grams). Mix in 4 to 8 ounces of a beverage and drink as directed. Indications: Constipation 07/14/19 25 Active tiZANidine (ZANAFLEX) 2 MG tablet Take 1 Tablet (2 mg) by mouth every 8 hours as needed. 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 Impaired mobility and ADLs 07/04/2024 Neurogenic bladder 07/04/2024 Neurogenic bowel 07/04/2024 Chronic pain syndrome 07/04/2024 Gastrojejunostomy tube status 07/04/2024 Myelopathy 07/03/2024 Intractable pain 06/27/2024 Impaired gait and mobility 06/20/2024 Generalized muscle weakness 06/19/2024 Fall 06/19/2024 Acquired pectus carinatum 04/13/2024 Anxiety 04/13/2024 Arthralgia [...] (04/13/2024): Added automatically from request for surgery [id number] Tear of acetabular labrum 12/12/2019 Overview (04/13/2024): Added automatically from request for surgery [id number] Klinefelter's syndrome 07/25/2019 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 [address] Mateusz Crawford DO Neuropathic pain (Primary Dx); Chronic pain syndrome 08/17/2024 Telephone [facility] [address] [facility] [address] Mateusz Crawford DO Appointment Questions 08/15/2024 9:00 AM CDT Office Visit Orthopedics at [address] [place] [address] Anahi Van MD Aftercare following surgery of the musculoskeletal system (Primary Dx); Peroneal tendinitis of right lower extremity 08/15/2024 8:45 AM CDT Ancillary Procedure [place] [address] [place] [address]. [place] [address] Anahi Van MD Aftercare following surgery of the musculoskeletal system 08/06/2024 8:50 AM CDT Office Visit Orthopedics at [address] [place] [address] Nilay Ceron MD Bilateral hip pain (Primary Dx); Femoroacetabular impingement of left hip; Femoroacetabular impingement of right hip 07/24/2024 11:40 AM CDT E-Visit Orthopedics at [address] [place] [address] Nilay Ceron MD Chief Comp: Forms/Letter 07/23/2024 9:50 AM CDT Office Visit Orthopedics at [address] [place] [address] Nilay Ceron MD Bilateral hip pain (Primary Dx) 07/23/2024 9:35 AM CDT Ancillary Procedure [facility] [address] Radiology [address] [place] [address] Nilay Ceron MD Bilateral hip pain 07/16/2024 Telephone [facility] [place] [facility] [address] [place] [address] Unassigned, Provider ERRONEOUS ENTRY 07/04/2024 2:51 PM CDT - 07/13/2024 10:24 AM CDT Hospital Encounter [facility] C52 [address] [place] [address] Ramila Jacobs MD Monahan, Sara H, DO Mahasin, Sarah Z, MD Anxiety (HRC) [F41.9] (Primary Dx); Chronic pain syndrome; Impaired mobility and ADLs; S/P gastrostomy (HRC); Peroneal tendinitis of right lower extremity; Chronic bilateral low back pain without sciatica Discharge Disposition: Home 07/04/2024 Orders Only Orthopedics at [address] [address] Anahi Van MD Peroneal tendinitis of right lower extremity (Primary Dx) 06/28/2024 4:00 PM CDT Ancillary Procedure [facility] [address] [place] [address] 06/26/2024 8:20 PM CDT E-Visit Orthopedics at [address] [address] Anahi Van MD Chief Comp: QUESTIONS, GENERAL 06/25/2024 8:20 AM CDT Ancillary Procedure [facility] [address] [place] [address] 06/25/2024 Telephone Orthopedics at [address] [address] Anahi Van MD QUESTIONS, GENERAL 06/24/2024 9:25 AM CDT Ancillary Procedure [facility] [address] [place] [address] 06/23/2024 12:30 PM CDT Ancillary Procedure [facility] [address] [place] [address] 06/22/2024 Telephone [facility] [address] [place] [address] Mo Brenner MD Follow-up (Follow up appointment) 06/21/2024 4:45 PM CDT Ancillary Procedure [facility] [address] [place] [address] 06/21/2024 4:15 PM CDT Ancillary Procedure [facility] [address] [place] [address] 06/21/2024 3:45 PM CDT Ancillary Procedure [facility] [address] [place] [address] 06/19/2024 10:45 AM CDT Ancillary [facility] [address] [place] [address] 06/19/2024 10:40 AM CDT Ancillary [facility] [address] [place] [address] 06/19/2024 10:35 AM CDT Ancillary [facility] [address] [place] [address] 06/19/2024 10:30 AM CDT Ancillary [facility] [address] [place] [address] 06/19/2024 10:02 AM CDT - 07/04/2024 2:47 PM CDT Hospital Encounter [facility] W2 OBSERVATION [address] [place] [address] Melissa Garrett MD Cunderlik, Maros, MD Liebhard, Anthony P, MD Villaume, Lourdes Gomez, MD Robertson, Jason M, MD Falls frequently (Primary Dx); Acute bilateral thoracic back pain (HRC); Muscle weakness (generalized); Fall, subsequent encounter; Extensor tenosynovitis of wrist, left; Pain; Myelopathy (HRC) Discharge Disposition: Inpatient Rehab Facility 06/06/2024 1:00 PM CDT Office Visit Orthopedics at [facility] [address] [place] [address] Anahi Van MD Aftercare following surgery of the musculoskeletal system (Primary Dx) 06/06/2024 12:45 PM CDT Ancillary Procedure [facility] [address] Radiology [address] [place] [address] Anahi Van MD Aftercare following surgery of the musculoskeletal system 06/06/2024 Telephone Orthopedics at [facility] [address] [place] [address] Nilay Ceron MD Reschedule Appointment from Last 3 Months Social History Tobacco Use Types Packs/Day Years Used Date Smoking Tobacco: Never Smokeless Tobacco: Never Tobacco Cessation:Counseling Given: Not Answered Alcohol Use Standard Drinks/Week Comments Yes 0 (1 standard drink = 0.6 oz pur e alcohol) occasional [facility] Utilities Answer Date Recorded In the past 12 months has e [employer], gas, oil, or water [employer] threatened to shut off services in [...] money to buy more. Never true 07/05/19 Within the past 12 months, t he [...] time in the past 12 m [facility], were you homeless or living in a prison (including now)? No 07/04/2024 Sex and Gender Information Value Date Recorded Sex Assigned at Not on file Legal Sex Male 5:33 PM [employer] Gender Identity Not on file Sexual Orientation Not on file Last Filed Vital Signs Vital Sign Reading Time Taken Comments Blood Pressure 125/90 08/20/2024 9:00 AM CDT Pulse 102 08/20/2024 9:00 AM CDT Temperature 36.4 C (97.6 F) 07/13/2024 6:00 AM CDT Respiratory Rate 18 07/13/2024 6:00 AM CDT Oxygen Saturation 99% 07/13/2024 6:00 AM CDT Inhaled Oxygen Concentration - - Weight 77.1 kg (170 lb) 07/11/2024 6:00 AM CDT Height 185.4 cm (6' 1) 07/04/2024 4:00 PM CDT Body Mass Index 22.43 07/04/2024 4:00 PM CDT Plan of Treatment Upcoming Encounters Date Type Department Care Team (Late st Contact Info) Description 09/17/2024 10:10 AM CDT Appointment Orthopedics at [address] [place] [address] Nilay Ceron MD [address] [facility] [place] [address] Health Maintenance Due Date Last Done Comments Hep C Screening (Preventive Services) 2000 Adult Preventive Visit 2018 HepB Vaccine (1) 05/10/2019 Influenza Vaccine (#1) 2024 4, 11/19/2022, 04/16/2022, Additional history exists DTaP/Tdap/Td Vaccine (7 - Tdap) 11/19/2032 11/19/2022, 09/22/2012, 11/11/2004, Additional history exists Zoster/Shingles Vaccine (1 of 2) 2050 Pneumococcal Vaccine Aged Out 04/21/2001, 01/12/2001, 2000 No longer eligible based on patient's age to complete this topic Hib Vaccine Completed 10/20/2001, 07/2000, 2000 IPV (Polio) Vaccine Completed 11/11/2004, 04/21/2001, 01/12/2001, Additional history exists MCV4 Vaccine Completed 02/23/2017, 09/02/2015 HepA Vaccine Completed 04/18/2018, 02/23/2017 HIV Screening (Preventive Services) Completed 08/18/2020 HPV Vaccine Completed 10/28/2020, 02/08, 10/19/2019 COVID-19 Vaccine Completed 11/02/2023, 11/2022, 02/18/2021, Additional history exists Meningococcal B Vaccine Aged Out No l onger eligible based on patient's age to complete this topic Procedures Procedure Name Priority Date/Time Associated Diagnosis Comments XR ANKLE RT 3 VIEWS STANDING Routine 08/15/2024 9:00 AM CDT Aftercare following surgery of the musculoskeletal system XR PELVIS BILAT HIPS 2+ VIEWS Routine 07/23/2024 9:50 AM CDT Bilateral hip pain C-REACTIVE PROTEIN Routine 07/03/2024 6: 26 AM CDT COMPLETE BLOOD COUNT-NO DIFF Routine 07/03/2024 6:26 AM CDT BASIC METABOLIC PANEL Routine 07/03/2024 6:26 AM CDT C-REACTIVE PROTEIN Routine 07/01/2024 7: 21 AM CDT PLATELETS Routine 07/01/2024 7:21 AM CDT FOLATE ONLY (4HR FAST RECOMMENDED) Routine 06/29/2024 6:39 AM CDT VITAMIN B1, BLOOD Routine 06/29/2024 6:3 9 AM CDT PLATELETS Routine 06/29/2024 6:39 AM CDT IR GJ TUBE REPLACE SIMPLE Routine 06/28/2024 5:13 PM CDT INPATIENT TELEMETRY MONITORING Routine 06/28/2024 7:40 AM CDT VITAMIN B12 ONLY Add-On 06/28/2024 7:00 AM CDT COMPLETE BLOOD COUNT-NO DIFF Routine 06/28/2024 7:00 AM CDT CK, TOTAL Routine 06/28/2024 7:00 AM CDT BASIC METABOLIC PANEL Routine 06/28/2024 7:00 AM CDT SEDIMENTATION RATE (ESR) Routine 06/28/2024 7:00 AM CDT C-REACTIVE PROTEIN Routine 06/28/2024 7: 00 AM CDT INPATIENT TELEMETRY MONITORING Routine 06/27/2024 8:14 PM CDT INPATIENT TELEMETRY MONITORING Routine 06/27/2024 3:44 PM CDT PLATELETS Routine 06/27/2024 6:46 AM CDT BASIC METABOLIC PANEL Routine 06/26/2024 6:02 AM CDT MR HAND LT WO IV CONT Routine 06/25/2024 9:43 AM CDT BASIC METABOLIC PANEL Routine 06/25/2024 6:17 AM CDT PLATELETS Routine 06/25/2024 6:17 AM CDT MR WRIST LT WO IV CONT Routine 06/24/2024 10:57 AM CDT COMPLETE BLOOD COUNT-W/DIFF Routine 06/24/2024 9:40 AM CDT C-REACTIVE PROTEIN Add-On 06/24/2024 9: 40 AM CDT CBC AND DIFFERENTIAL PANEL Add-On 06/24/2024 9:40 AM CDT HEMOGLOBIN, BLOOD Specified Time 06/24/2024 9:4 0 AM CDT BASIC METABOLIC PANEL Specified Time 06/24/2024 9:40 AM CDT INPATIENT TELEMETRY MONITORING Routine 06/23/2024 7:38 PM CDT XR ABD FLAT/KUB 1 VIEW STAT 06/23/2024 12:58 PM CDT XR HAND LT 3+ VIEWS STAT 06/23/2024 12:58 PM CDT INPATIENT TELEMETRY MONITORING Routine 06/23/2024 8:00 AM CDT BASIC METABOLIC PANEL Routine 06/23/2024 7:40 AM CDT PLATELETS Routine 06/23/2024 7:40 AM CDT INPATIENT TELEMETRY MONITORING Routine 06/22/2024 7:27 AM CDT BASIC METABOLIC PANEL Routine 06/22/2024 5:47 AM CDT INPATIENT TELEMETRY MONITORING Routine 06/21/2024 11:11 PM CDT INPATIENT TELEMETRY MONITORING Routine 06/21/2024 6:58 PM CDT MR LUMBAR SPINE W/WO IV CONT Discharge Decision 06/21/2024 5:42 PM CDT MR THORACIC SPINE W/WO IV CONT Discharge Decision 06/21/2024 5:41 PM CDT MR CERVICAL SPINE W/WO IV CONT Discharge Decision 06/21/2024 5:40 PM CDT BASIC METABOLIC PANEL Routine 06/21/2024 11:16 AM CDT INPATIENT TELEMETRY MONITORING Routine 06/21/2024 10:02 AM CDT PLATELETS Routine 06/21/2024 6:56 AM CDT INPATIENT TELEMETRY MONITORING Routine 06/20/2024 11:30 PM CDT INPATIENT TELEMETRY MONITORING Routine 06/20/2024 9:20 PM CDT EJECTION FRACTION Routine 06/20/2024 3:1 4 PM CDT CARDIAC ROUTINE ECHOCARDIOGRAM Discharge Decision 06/20/2024 3:14 PM CDT INPATIENT TELEMETRY MONITORING Routine 06/20/2024 1:19 PM CDT ECG 12-LEAD ROUTINE(LAB PERFORM) Routine 06/20/2024 12:44 PM CDT ECG-ROUTINE 12 LEAD; INTRPT & REPRT Routine 06/20/2024 12:38 PM CDT CYSTATIN C WITH GFR Add-On 06/20/2024 6 :52 AM CDT PHOSPHORUS Routine 06/20/2024 6:52 AM CDT MAGNESIUM Routine 06/20/2024 6:52 AM CDT BASIC METABOLIC PANEL Routine 06/20/2024 6:52 AM CDT COMPLETE BLOOD COUNT-NO DIFF Routine 06/20/2024 6:52 AM CDT GLUCOSE, WHOLE BLOOD POCT Routine 06/19/2024 9:14 PM CDT BLOOD CULTURE Routine 06/19/2024 2:38 PM CDT BLOOD CULTURE Routine 06/19/2024 2:38 PM CDT BLOOD CULTURE Routine 06/19/2024 2:38 PM CDT BLOOD CULTURE Routine 06/19/2024 2:38 PM CDT URINE CULTURE Routine 06/19/2024 11:08 AM CDT UA CONDITIONAL UC STAT 06/19/2024 11:[address] LUMBAR SPINE WO IV CONT STAT 06/19/2024 10:[address] THORACIC SPINE WO IV CONT STAT 06/19/2024 10:[address] CERVICAL SPINE WO IV CONT STAT 06/19/2024 10:[address] HEAD WO IV CONT STAT 06/19/2024 10:50 AM CDT C-REACTIVE PROTEIN Add-On 06/19/2024 10:33 AM CDT MAGNESIUM STAT 06/19/2024 10:33 AM CDT COMPLETE BLOOD COUNT-NO DIFF STAT 06/19/2024 10:33 AM CDT BASIC METABOLIC PANEL STAT 06/19/2024 10:33 AM CDT XR ANKLE RT 3 VIEWS Routine 06/06/2024 1 :18 PM CDT Aftercare following surgery of the musculoskeletal system from Last 3 Months Results * XR Ankle Rt 3 Views Standing (08/15/2024 9:00 AM CDT) Anatomical Region Laterality Modality Lower Extremity, Ankle, Foot & Ankle Computed Radiography 08/15/2024 9:0 0 AM CDT Narrative 08/16/2024 10:43 AM CDT EXAM: XR ANKLE RT 3 VIEWS STANDING LOCATION: [facility] 435 DATE: 08/15/2024 INDICATION: EXCISION [...] XR ANKLE RT 3 VIEWS STANDING LOCATION: [place] [address] DATE: 08/15/2024 INDICATION: EXCISION EXOSTOSIS ANKLE (Right), [...] MD RAD GD Final Result * XR Pelvis Bilat Hips 2+ Views (07/23/2024 9:50 AM CDT) Anatomical Region Laterality Modality Pelvis, Hip Computed Radiogr aphy 07/23/2024 9:50 AM CDT Narrative 07/23/2024 11:19 AM CDT EXAM: XR PELVIS BILAT HIPS 2+ VIEWS LOCATION: [facility] 435 DATE: 07/23/2024 INDICATION: Bilateral hip pain, Pain in right hip, Pain in left hip COMPARISON: None. IMPRESSION: Tiny bilateral acetabular osteophytes. Hip joint spaces are preserved. No acute fracture or dislocation. Procedure Note Marino Ryan MD - 07/23/2024 EXAM: XR PELVIS BILAT HIPS 2+ VIEWS [facility] DATE: 07/23/2024 INDICATION: Bilateral hip pain, Pain in right hip, Pain in left hip COMPARISON: None. IMPRESSION: Tiny bilateral acetabular osteophytes. Hip joint spaces arepreserved. No acute fracture or dislocation. us Nilay Ceron MD RAD GD Final Result * Basic Metabolic Panel (07/03/2024 6:26 AM CDT) Only the most recent of10 resultswithin the time period is included. Sodium 139 136 - 145 mmol/L 07/05/2024 12:42 AM [facility] Comment:Corrected result: Pr eviously reported as 136 mmol/L on 07/03/2024 at 0725 CDT. Potassium 3.9 3.5 - 5.1 mmol/L 07/05/2024 12:42 AM [facility] Chloride 102 98 - 109 mmol/L 07/05/2024 12:42 AM [facility] CO2 24 20 - 29 mmol/L 07/05/2024 12:42 AM [facility] Anion Gap 13 6 - 16 mmol/L 07/05/2024 12:42 AM [facility] Comment:Corrected result: Pr eviously reported as 10 mmol/L on 07/03/2024 at 0725 CDT. Calcium 9.1 8.4 - 10.4 mg/dL 07/05/2024 12:42 AM [facility] BUN 17 7 - 26 mg/dL 07/05/2024 12:42 AM [facility] Creatinine 0.78 0.73 - 1.18 mg/dL 07/05/2024 12:42 AM [facility] Glucose 93 70 - 100 mg/dL 07/05/2024 12:42 AM [facility] Comment:The given reference range is for the fasting state. Non-fasting reference range for glucose is 70 - 180 mg/dL. GFR, Estimated >60 >60 mL/min/1.7 3m2 07/05/2024 12:42 AM [facility] Blood Venipuncture / Unknown 07/03/2024 6:26 AM CDT 07/03/2024 6:55 AM CDT us Nikki Winters MD LAB_1 Edited Result - Final Performing Organization Address City/[facility]/ZIP Co de Phone Number [address] * (ABNORMAL) Complete Blood Count-No Diff (07/03/2024 6:26 AM CDT) Only the most recent of4 resultswithin the time period is included. WBC 6.5 3.5 - 10.5 x10(9)/L 07/03/2024 7:03 AM [facility] RBC 4.49 4.32 - 5.72 x10(12)/L 07/03/2024 7:03 AM [facility] Hemoglobin 13.0(L) 13.5 - 17.5 g/dL 07/03/2024 7:03 AM [facility] HCT 38.4(L) 38.8 - 50.0 % 07/03/2024 7:03 AM [facility] MCV 85.5 80.0 - 100.0 fL 07/03/2024 7:03 AM [facility] MCH 29.0 27.6 - 33.3 pg 07/03/2024 7:03 AM [facility] MCHC 33.9 31.5 - 35.2 g/dL 07/03/2024 7:03 AM [facility] RDW 12.5 11.9 - 15.5 % 07/03/2024 7:03 AM [facility] Platelets 244 150 - 450 x10(9)/L 07/03/2024 7:03 AM [facility] Automated NRBC 0 <=0 /100 WBC 07/03/2024 7:03 AM [facility] Blood Venipuncture / Unknown 07/03/2024 6:26 AM CDT 07/03/2024 6:55 AM CDT Nikki Winters MD LAB_1 Final Result Performing Organization Address City/[facility]/ZIP Co de Phone Number [address] * (ABNORMAL) C-Reactive Protein (07/03/2024 6:26 AM CDT) Only the most recent of5 resultswithin the time period is included. C-Reactive Protein 0.7(H) 0.0 - 0.5 mg/dL 07/03/2024 7:25 AM CDT [facility] Blood Venipuncture / Unknown 07/03/2024 6:26 AM CDT 07/03/2024 6:55 AM CDT Nikki Winters MD LAB_1 Final Result [address] * Platelets (07/01/2024 7:21 AM CDT) Only the most recent of6 resultswithin the time period is included. Pathologist [facility] Platelets 211 150 - 450 x10(9)/L 07/01/2024 8:10 AM CDT [facility] Blood Venipuncture / Unknown 07/01/2024 7:21 AM CDT 07/01/2024 8:04 AM CDT Addi Blum MD LAB_1 Final Result [address] * (ABNORMAL) Vitamin B1, Blood (06/29/2024 6:39 AM CDT) Pathologist [facility] Vitamin B1 288(H) 70 - 180 nmol/L 07/01/2024 12:16 PM CDT [facility] Comment: INTERPRETIVE INFORMATION: Vitamin B1, Whole Blood This assay measures the concentration of thiamine diphosphate (TDP), the primary active form of vitamin B1. Approximately 90 percent of vitamin B1 present in whole blood is TDP. Thiamine and thiamine monophosphate, which comprise the remaining 10 percent, are not measured. This test was developed and its performance characteristics determined by [facility]. It has not been cleared or approved by the [place] Food and Drug Administration. This test was performed in a CLIA certified laboratory and is intended for clinical purposes. Performed By: [facility] [address] [place] [address] Head Of Design: Anurag Ch MD, PhD CLIA Number: [id number] Blood Venipuncture Butterfly / Unknown 06/29/2024 6:39 AM CDT 06/29/2024 6:45 AM CDT Nikki Winters MD LAB_1 Final Result Performing Organization Address [facility] de Phone Number [facility] [address] [place], [place] [address] [place] [address] * Folate Only (4Hr Fast Recommended) (06/29/2024 6:39 AM CDT) Folate 12.4 >=7.0 ng/mL 06/29/2024 11:52 AM CDT [facility] Blood Venipuncture Butterfly / Unknown 06/29/2024 6:39 AM CDT 06/29/2024 6:45 AM CDT Nikki Winters MD LAB_1 Final Result Performing Organization Address City/[facility] Co de Phone Number [facility] [address] * IR GJ Tube Replace Simple (06/28/2024 5:13 PM CDT) Anatomical Region Laterality Modality Abdomen X-Ray Angiograph y 06/28/2024 5:13 PM CDT Narrative 06/29/2024 1:37 PM CDT [facility] LOCATION: [facility] DATE: 06/28/2024 PROCEDURE: PERCUTANEOUS GASTROJEJUNOSTOMY EXCHANGE INTERVENTIONAL RADIOLOGIST: Gael Lawton MD. INDICATION: Conversion from normal GJ tube to a Low Profile Karlos-Car GJ tube CONTRAST: 15 cc of Omni ANTIBIOTICS: None. ADDITIONAL MEDICATIONS: None. FLUOROSCOPIC TIME: 0.9 minutes. RADIATION DOSE: AIR KERMA (Ka,r): 9 mGy. COMPLICATIONS: No immediate complications. STERILE BARRIER TECHNIQUE: Maximum sterile barrier technique was used. Cutaneous antisepsis was performed at the operative site with application of 2% chlorhexidine and large sterile drape. Prior to the procedure, the gas collection system operator and ophthalmic assistant performed hand hygiene and wore hat, mask, sterile gown, and sterile gloves during the entire procedure. PROCEDURE/TECHNIQUE: The existing GJ tube was assessed visually and under fluoroscopy a wire was advanced into the proximal jejunum. The tract was measured to be 3.5 cm stoma length. Therefore over the wire a new 18 Mongolian by 45 cm x 3.5 cm stoma length gastrojejunostomy tube was then placed. Both ports were injected with contrast and a digital spot image was obtained. FINDINGS: The initial assessment shows the gastric and jejunal lumens to be patent and in appropriate position. After exchange, the new gastrojejunostomy tube is in appropriate position with the gastric port within the stomach and distal jejunal port near the ligament of Treitz. IMPRESSION: Successful GJ tube replacement with a Low Profile 18 Mongolian x 45 cm x 3.5 cm stoma length Karlos-Car GJ tube. Procedure Note Gael Lawton MD - 06/29/2024 [facility] LOCATION: [facility] DATE: 06/28/2024 PROCEDURE: PERCUTANEOUS GASTROJEJUNOSTOMY EXCHANGE INTERVENTIONAL RADIOLOGIST: Gael Lawton MD. INDICATION: Conversion from normal GJ tube to a Low Profile Karlos-Car GJtube CONTRAST: 15 cc of [employer] ANTIBIOTICS: None. ADDITIONAL MEDICATIONS: None. FLUOROSCOPIC TIME: 0.9 minutes. RADIATION DOSE: AIR KERMA (Ka,r): 9 mGy. COMPLICATIONS: No immediate complications. STERILE BARRIER TECHNIQUE: Maximum sterile barrier technique was used.Cutaneous antisepsis was performed at the operative site with applicationof 2% chlorhexidine and large sterile drape. Prior to the procedure, theoperator and ophthalmic assistant performed hand hygiene and wore hat, mask, sterilegown, and sterile gloves during the entire procedure. PROCEDURE/TECHNIQUE: The existing GJ tube was assessed visually and under fluoroscopy a wirewas advanced into the proximal jejunum. The tract was measured to be 3.5cm stoma length. Therefore over the wire a new 18 Mongolian by 45 cm x 3.5 cmstoma length gastrojejunostomy tube was then placed. Both ports wereinjected with contrast and a digital spot image was obtained. FINDINGS: The initial assessment shows the gastric and jejunal lumens to be patentand in appropriate position. After exchange, the new gastrojejunostomytube is in appropriate position with the gastric port within the stomachand distal jejunal port near the ligament of Treitz. IMPRESSION: Successful GJ tube replacement with a Low Profile 18 Mongolian x 45 cm x 3.5cm stoma length Karlos-Car GJ tube. us Khloe Atkinson CARPENTER/LABOR, BOXING TRAINER RAD IR Final Result * INPATIENT TELEMETRY MONITORING (06/28/2024 7:40 AM CDT) Only the most recent of12 resultswithin the time period is included. TELE P-R INTERVAL 0.10 MUSE GHP TELE QRS DURATION 0.08 MUSE GHP TELE R-R INTERVAL 0.64 MUSE GHP TELE INTERPRETATION Sinus Rhythm Flaca Carl RN MUSE [facility] 06/28/2024 7:40 AM CDT Narrative MUSE G[facility] - 06/28/2024 7:52 AM CDT Sinus Rhythm Flaca Carl RN us Interface Provider EKG Final Resu lt [facility] [address] [place] [address] * Vitamin B12 Only (06/28/2024 7:00 AM CDT) Pathologist [facility] Vitamin B12 611 213 - 816 pg/mL 06/29/2024 12:35 PM CDT [facility] Blood Venipuncture / Unknown 06/28/2024 7:00 AM CDT 06/28/2024 7:22 AM CDT us Nikki Winters MD LAB_[email or web address] Final Result Performing Organization Address City/[facility]/ZIP Co de Phone Number [facility] [address] [address], [facility] * CK, Total (06/28/2024 7:00 AM CDT) CK, Total 67 30 - 200 U/L 06/28/2024 8:00 AM CDT [facility] Blood Venipuncture / Unknown 06/28/2024 7:00 AM CDT 06/28/2024 7:22 AM CDT us Nikki Winters MD LAB_1 Final Result Performing Organization Address [facility] Co de Phone Number [address] * Sedimentation Rate (ESR) (06/28/2024 7:00 AM CDT) Sedimentation Rate 9 0 - 15 mm/hr 06/28/2024 9:36 AM CDT [facility] Blood Venipuncture / Unknown 06/28/2024 7:00 AM CDT 06/28/2024 7:22 AM CDT us Nikki Winters MD LAB_[email or web address] Final Result Performing Organization Address [facility] Phone Number [address] * MR Hand Lt WO IV Cont (06/25/2024 9:43 AM CDT) Anatomical Region Laterality Modality Upper Extremity, Hand, Wrist, Skeletal, MSK Left Magnetic Resonance 06/25/2024 9:43 AM CDT Narrative 06/25/2024 10:04 AM CDT EXAM: MR HAND LT WO IV CONT LOCATION: [facility] DATE: 06/25/2024 INDICATION: Recent fall and left hand injury with dorsal pain. Previous wrist surgery. COMPARISON: Wrist MRI 06/24/2024, x-rays 06/23/2024 TECHNIQUE: Unenhanced. FINDINGS: TENDONS: -Extensor tendons: No tendon tear or tendinopathy. Small amount of fluid and/or edema surrounding the extensor digitorum tendons of the index through little fingers compatible with tenosynovitis, similar to prior wrist MRI. -Flexor tendons: No tear, tendinopathy, or tenosynovitis. LIGAMENTS: -Visualized collateral and capsular ligaments: Normal. JOINTS AND BONES: -No fracture or bone marrow edema. No articular cartilage defect. No joint effusion or synovitis. Postoperative changes wrist with anchors within the capitate, hamate, lunate, and triquetral bones, and susceptibility artifacts. MUSCLES AND SOFT TISSUES: -Diffuse subcutaneous edema over the dorsum of the hand and wrist. No focal fluid collection. IMPRESSION: 1. No acute fracture or bone contusion. 2. Subcutaneous edema over the dorsum of the hand and wrist could represent soft tissue or synovitis. No abscess. 3. Extensor compartment IV and V tenosynovitis. Infectious tenosynovitis is possible. No tendon tear. 4. No acute fracture or bone contusion. No evidence of osteomyelitis. Procedure Note Marino Garcia MD - 06/25/2024 EXAM: MR HAND LT WO IV CONT [facility]: [facility] DATE: 06/25/2024 INDICATION: Recent fall and left hand injury with dorsal pain. Previouswrist surgery. COMPARISON: Wrist MRI 06/24/2024, x-rays 06/23/2024 TECHNIQUE: Unenhanced. FINDINGS: TENDONS: -Extensor tendons: No tendon tear or tendinopathy. Small amount of fluidand/or edema surrounding the extensor digitorum tendons of the indexthrough little fingers compatible with tenosynovitis, similar to priorwrist MRI. -Flexor tendons: No tear, tendinopathy, or tenosynovitis. LIGAMENTS: -Visualized collateral and capsular ligaments: Normal. JOINTS AND BONES: -No fracture or bone marrow edema. No articular cartilage defect. No jointeffusion or synovitis. Postoperative changes wrist with anchors within thecapitate, hamate, lunate, and triquetral bones, and susceptibilityartifacts. MUSCLES AND SOFT TISSUES: -Diffuse subcutaneous edema over the dorsum of the hand and wrist. Nofocal fluid collection. IMPRESSION: 1. No acute fracture or bone contusion. 2. Subcutaneous edema over the dorsum of the hand and wrist couldrepresent soft tissue or synovitis. No abscess. 3. Extensor compartment IV and V tenosynovitis. Infectious tenosynovitisis possible. No tendon tear. 4. No acute fracture or bone contusion. No evidence of osteomyelitis. us Mike Moses MD RAD MRI Final Resu lt * MR Wrist Lt WO IV Cont (06/24/2024 10:57 AM CDT) Anatomical Region Laterality Modality Upper Extremity, Wrist, Hand, Arm, Skeletal, MSK Left Magnetic Resonance 06/24/2024 10:5 7 AM CDT Narrative 06/24/2024 11:35 AM CDT EXAM: MR WRIST LT WO IV CONT LOCATION: [facility] DATE: 06/24/2024 INDICATION: Unclear x-ray of dorsal fragment COMPARISON: Left hand radiographic exam 06/23/2024 TECHNIQUE: Unenhanced. FINDINGS: Nonstandard MR examination left wrist. Poor fat suppression axial images. Intact dorsal aspect of the wrist not imaged on sagittal STIR images. Motion degraded coronal intermediate-weighted fat-suppressed fast spin-echo images. Image interpretation is therefore moderately compromised. TENDONS: -Extensor compartment tendons: Extensor tendons poorly assessed on this exam. No definitive acute tendon rupture or proximal tendon retraction. Probable moderate to severe extensor tendon compartment IV tenosynovitis in the dorsum of the wrist. Probable extensor tendon compartment V tenosynovitis. Infectious tenosynovitis not excludable. -Flexor compartment tendons: Flexor tendons appear grossly intact. No appreciable flexor tenosynovitis on this exam although limited. TRIANGULAR FIBROCARTILAGE COMPLEX: -Articular disc: Grossly intact. -Peripheral tissue: No tear of the volar and dorsal radioulnar ligaments, joint capsule and surrounding stabilizing structures identified. LIGAMENTS: -Scapholunate and lunotriquetral ligament: No acute tear identified on this non-arthrographic study. JOINTS AND BONES: -Surgical anchors are present within the capitate, hamate and lunate from wrist stabilizing procedure entering from the dorsal to the palm are approach. No evidence for acute left wrist fracture. No appreciable bone marrow edema. Specifically, no distal radius or scaphoid fracture. No definitive triquetral fracture. No focal cartilage defect or subchondral marrow edema. No sizable joint effusion. SOFT TISSUES: -Ganglion/Synovial cyst: No visible ganglion cyst. -Nerves: Visualized median and ulnar nerves and contents of Guyon's canal grossly unremarkable. Dorsal wrist soft tissue swelling and/or cellulitis. IMPRESSION: 1. Technically suboptimal nonstandard MR examination left wrist. 2. No definitive acute left wrist fracture or joint malalignment. 3. Surgical anchors within the capitate, hamate and lunate from wrist mid carpal stabilizing procedure. 4. Moderate to severe extensor tendon compartment IV tenosynovitis. Probable extensor tendon compartment V tenosynovitis. Infectious tenosynovitis not excludable. 5. Dorsal wrist soft tissue swelling and/or cellulitis. Procedure Note Beni Aguilar MD - 06/24/2024 EXAM: MR WRIST LT WO IV CONT LOCATION: [facility] DATE: 06/24/2024 INDICATION: Unclear x-ray of dorsal fragment COMPARISON: Left hand radiographic exam 06/23/2024 TECHNIQUE: Unenhanced. FINDINGS: Nonstandard MR examination left wrist. Poor fat suppression axial images.Intact dorsal aspect of the wrist not imaged on sagittal STIR images.Motion degraded coronal intermediate-weighted fat-suppressed fastspin-echo images. Image interpretation is therefore moderatelycompromised. TENDONS: -Extensor compartment tendons: Extensor tendons poorly assessed on thisexam. No definitive acute tendon rupture or proximal tendon retraction.Probable moderate to severe extensor tendon compartment IV tenosynovitisin the dorsum of the wrist. Probable extensor tendon compartment Vtenosynovitis. Infectious tenosynovitis not excludable. -Flexor compartment tendons: Flexor tendons appear grossly intact. Noappreciable flexor tenosynovitis on this exam although limited. TRIANGULAR FIBROCARTILAGE COMPLEX: -Articular disc: Grossly intact. -Peripheral tissue: No tear of the volar and dorsal radioulnar ligaments,joint capsule and surrounding stabilizing structures identified. LIGAMENTS: -Scapholunate and lunotriquetral ligament: No acute tear identified onthis non-arthrographic study. JOINTS AND BONES: -Surgical anchors are present within the capitate, hamate and lunate fromwrist stabilizing procedure entering from the dorsal to the palm areapproach. No evidence for acute left wrist fracture. No appreciable bonemarrow edema. Specifically, no distal radius or scaphoid fracture. Nodefinitive triquetral fracture. No focal cartilage defect or subchondralmarrow edema. No sizable joint effusion. SOFT TISSUES: -Ganglion/Synovial cyst: No visible ganglion cyst. -Nerves: Visualized median and ulnar nerves and contents of Guyon's canalgrossly unremarkable. Dorsal wrist soft tissue swelling and/or cellulitis. IMPRESSION: 1. Technically suboptimal nonstandard MR examination left wrist. 2. No definitive acute left wrist fracture or joint malalignment. 3. Surgical anchors within the capitate, hamate and lunate from wrist midcarpal stabilizing procedure. 4. Moderate to severe extensor tendon compartment IV tenosynovitis.Probable extensor tendon compartment V tenosynovitis. Infectioustenosynovitis not excludable. 5. Dorsal wrist soft tissue swelling and/or cellulitis. us Mike Moses MD RAD MRI Final Resu lt * Complete Blood Count-W/Diff (06/24/2024 9:40 AM CDT) WBC 5.2 3.5 - 10.5 x10(9)/L 06/24/2024 2:42 PM [facility] RBC 4.94 4.32 - 5.72 x10(12)/L 06/24/2024 2:42 PM [facility] Hemoglobin 14.4 13.5 - 17.5 g/dL 06/24/2024 2:42 PM [facility] HCT 41.8 38.8 - 50.0 % 06/24/2024 2:42 PM [facility] MCV 84.6 80.0 - 100.0 fL 06/24/2024 2:42 PM [facility] MCH 29.1 27.6 - 33.3 pg 06/24/2024 2:42 PM [facility] MCHC 34.4 31.5 - 35.2 g/dL 06/24/2024 2:42 PM [facility] RDW 12.4 11.9 - 15.5 % 06/24/2024 2:42 PM [facility] Platelets 159 150 - 450 x10(9)/L 06/24/2024 2:42 PM [facility] Automated NRBC 0 <=0 /100 WBC 06/24/2024 2:42 PM [facility] Neutrophil Absolute 2.5 1.7 - 7.0 10(9)/L 06/24/2024 2:42 PM [facility] Lymphocyte Absolute 1.9 1.0 - 4.8 10(9)/L 06/24/2024 2:42 PM [facility] Monocyte Absolute 0.5 0.2 - 0.9 10(9)/L 06/24/2024 2:42 PM [facility] Eosinophil Absolute 0.2 0.0 - 0.5 10(9)/L 06/24/2024 2:42 PM [facility] Basophil Absolute 0.0 0.0 - 0.3 10(9)/L 06/24/2024 2:42 PM CDT [facility] Immature Granulocyte % 0.4 0.0 - 0.5 % 06/24/2024 2:42 PM CDT [facility] Blood Venipuncture / Unknown 06/24/2024 9:40 AM CDT 06/24/2024 2:31 PM CDT us Mike Moses MD LAB_1 Final Resu lt Performing Organization Address City/[facility] Co de Phone Number [address] * HEMOGLOBIN, BLOOD (06/24/2024 9:40 AM CDT) Hemoglobin 14.5 13.5 - 17.5 g/dL 06/24/2024 9:54 AM CDT [facility] Blood Venipuncture / Unknown 06/24/2024 9:40 AM CDT 06/24/2024 9:50 AM CDT us Mike Moses MD LAB_1 Final Resu lt Performing Organization Address [facility] de Phone Number [address] * XR Hand Lt 3+ Views (06/23/2024 12:58 PM CDT) Anatomical Region Laterality Modality Upper Extremity, Hand Computed R adiography 06/23/2024 12:5 8 PM CDT Narrative 06/23/2024 1:28 PM CDT EXAM: XR HAND LT 3+ VIEWS LOCATION: [facility] DATE: 06/23/2024 INDICATION: Fall and pain near left 3/4/5 MCP joints and the left wrist, has erlos danlos history, eval for fractures/dislocation, PAIN COMPARISON: Left hand MRI 05/22/2024. IMPRESSION: Thin osseous fragment dorsal to the carpal bones on the lateral view could be related to remote trauma or surgery or could represent an acute avulsion injury; correlate with point tenderness in this location. No other potential acute fracture. No dislocation. Postoperative changes within the capitate, hamate, and lunate related to previous carpal stabilization. Mild negative ulnar variance. Procedure Note Kwame Pacheco MD - 06/23/2024 EXAM: XR HAND LT 3+ VIEWS LOCATION: [facility] DATE: 06/23/2024 INDICATION: Fall and pain near left 3/4/5 MCP joints and the left wrist,has erlos danlos history, eval for fractures/dislocation, PAIN COMPARISON: Left hand MRI 05/22/2024. IMPRESSION: Thin osseous fragment dorsal to the carpal bones on the lateral view couldbe related to remote trauma or surgery or could represent an acuteavulsion injury; correlate with point tenderness in this location. No other potential acute fracture. No dislocation. Postoperative changeswithin the capitate, hamate, and lunate related to previous carpalstabilization. Mild negative ulnar variance. us Mike Moses MD RAD GD Final Resu lt * XR Abd Flat/KUB 1 View (06/23/2024 12:58 PM CDT) Anatomical Region Laterality Modality Abdomen Computed Radiogr aphy 06/23/2024 12:5 8 PM CDT Narrative 06/23/2024 1:24 PM CDT EXAM: XR ABD FLAT/KUB 1 VIEW LOCATION: [facility] DATE: 06/23/2024 INDICATION: Eval for constipation, CONSTIPATION COMPARISON: Abdominal radiograph 04/12/2024. IMPRESSION: Stable position of percutaneous gastrojejunostomy tube with distal tip overlying the left midabdomen. Small to moderate volume formed stool in colon. No evidence of mechanical bowel obstruction. Visualized lung bases are clear. No acute bony abnormality. Procedure Note Chandler Allison MD - 06/23/2024 EXAM: XR ABD FLAT/KUB 1 VIEW LOCATION: [facility] DATE: 06/23/2024 INDICATION: Eval for constipation, CONSTIPATION COMPARISON: Abdominal radiograph 04/12/2024. IMPRESSION: Stable position of percutaneous gastrojejunostomy tube withdistal tip overlying the left midabdomen. Small to moderate volume formedstool in colon. No evidence of mechanical bowel obstruction. Visualizedlung bases are clear. No acute bony abnormality. us Mike Moses MD RAD GD Final Resu lt * MR Lumbar Spine W/WO IV Cont (06/21/2024 5:42 PM CDT) Anatomical Region Laterality Modality Spine, L-Spine, Skeletal, MSK Ma gnetic Resonance 06/21/2024 5:42 PM CDT Narrative 06/21/2024 10:39 PM CDT For Patients: As a result of the Cures Act, medical imaging exams and procedure reports are released immediately into your electronic medical record. You may view this report before your referring provider. If you have questions, please contact your health care provider. EXAM: MR CERVICAL SPINE W/WO IV CONT, MR THORACIC SPINE W/WO IV CONT, MR LUMBAR SPINE W/WO IV CONT LOCATION: [facility] DATE/TIME: 06/21/2024 5:40 PM CDT INDICATION: Erlos danlos with myofascial issues, recent fall, has back pain, was due for C/T/L spine MRI will complete here COMPARISON: None. CONTRAST: GADOBUTROL 1 MMOL/ML IV SOLN 7.5 mL TECHNIQUE: 1) Routine Cervical Spine MRI without and with IV contrast. 2) Routine Thoracic Spine MRI without and with IV contrast. 3) Routine Lumbar Spine MRI without and with IV contrast. FINDINGS: CERVICAL SPINE: Alignment: Normal. Vertebral height: Normal. Marrow signal: Normal. Spinal cord: No abnormal signal. Extraspinal: No extraspinal abnormality. No pathologic contrast enhancement. Craniovertebral junction: Normal. C1-2: Normal. C2-3: Normal height of disc. Normal disc signal. No disc herniation. No uncovertebral hypertrophy. Normal facet joints. No central spinal stenosis, no right foramen stenosis, no left foramen stenosis. C3-4: Normal height of disc. Normal disc signal. No disc herniation. No uncovertebral hypertrophy. Normal facet joints. No central spinal stenosis, no right foramen stenosis, no left foramen stenosis. C4-5: Normal height of disc. Normal disc signal. No disc herniation. No uncovertebral hypertrophy. Normal facet joints. No central spinal stenosis, no right foramen stenosis, no left foramen stenosis. C5-6: Mild loss of disc height. Mild disc desiccation. Mild generalized disc bulge. No uncovertebral hypertrophy. Normal facet joints. No central spinal stenosis, no right foramen stenosis, no left foramen stenosis. C6-7: Normal height of disc. Normal disc signal. No disc herniation. No uncovertebral hypertrophy. Normal facet joints. No central spinal stenosis, no right foramen stenosis, no left foramen stenosis. C7-T1: Normal height of disc. Normal disc signal. No disc herniation. No uncovertebral hypertrophy. Normal facet joints. No central spinal stenosis, no right foramen stenosis, no left foramen stenosis. THORACIC SPINE: Alignment: Normal coronal and sagittal alignment. Vertebral height: No acute fracture. Normal height of vertebral bodies. Marrow signal: Normal Spinal cord: No abnormal signal. Discs: No significant interbody degeneration. Mild degenerative disc disease at T5-T6 and T11-T12, a small posterior disc protrusions results in mild spinal stenosis at these levels. No significant facet arthropathy. No high-grade central stenosis. No high-grade foraminal stenosis. No pathologic contrast enhancement. Extraspinal: No extraspinal abnormality. LUMBAR SPINE: Nomenclature based on 5 lumbar type vertebral bodies. - Normal coronal and sagittal alignment. Normal vertebral body heights. Normal marrow signal. Normal distal spinal cord and cauda equina with conus medullaris at L2. No pathologic contrast enhancement. Asymmetric prominence of left psoas muscle with chronic atrophy of the right iliopsoas muscles. Unremarkable visualized bony pelvis. T12-L1: Normal height of disc. Normal disc signal without herniation. Normal facet joints. No recess stenosis. No central spinal stenosis, no right foramen stenosis, no left foramen stenosis. L1-L2: Normal height of disc. Normal disc signal without herniation. Normal facet joints. No recess stenosis. No central spinal stenosis, no right foramen stenosis, no left foramen stenosis. L2-L3: Normal height of disc. Normal disc signal without herniation. Normal facet joints. No recess stenosis. No central spinal stenosis, no right foramen stenosis, no left foramen stenosis. L3-L4: Normal height of disc. Normal disc signal without herniation. Mild bilateral facet hypertrophy. No recess stenosis. No central spinal stenosis, no right foramen stenosis, no left foramen stenosis. L4-L5: Normal height of disc. Normal disc signal without herniation. Normal facet joints. No recess stenosis. No central spinal stenosis, no right foramen stenosis, no left foramen stenosis. L5-S1: Normal height of disc. Normal disc signal without herniation. Mild bilateral facet hypertrophy. No recess stenosis. No central spinal stenosis, no right foramen stenosis, no left foramen stenosis. IMPRESSION: CERVICAL SPINE MRI: 1. No acute findings. 2. Mild cervical spondylosis without significant central or foraminal stenosis. THORACIC SPINE MRI: 1. No acute findings. 2. Mild thoracic spondylosis without significant central or foraminal stenosis. LUMBAR SPINE MRI: 1. No acute findings. 2. Mild lumbar spondylosis without significant central or foraminal stenosis. 3. Chronic atrophy of the right iliopsoas muscles. Procedure Note Shlomo Esparza MD - 06/21/2024 For Patients: As a result of the Cures Act, medical imagingexams and procedure reports are released immediately into your electronicmedical record. You may view this report before your referring provider.If you have questions, please contact your health care provider. EXAM: MR CERVICAL SPINE W/WO IV CONT, MR THORACIC SPINE W/WO IV CONT, MRLUMBAR SPINE W/WO IV CONT LOCATION: [facility] DATE/TIME: 06/21/2024 5:40 PM CDT INDICATION: Erlos danlos with myofascial issues, recent fall, has backpain, was due for C/T/L spine MRI will complete here COMPARISON: None. CONTRAST: GADOBUTROL 1 MMOL/ML IV SOLN 7.5 mL TECHNIQUE: 1) Routine Cervical Spine MRI without and with IV contrast. 2) Routine Thoracic Spine MRI without and with IV contrast. 3) Routine Lumbar Spine MRI without and with IV contrast. FINDINGS: CERVICAL SPINE: Alignment: Normal. Vertebral height: Normal. Marrow signal: Normal. Spinal cord: No abnormal signal. Extraspinal: No extraspinal abnormality. No pathologic contrast enhancement. Craniovertebral junction: Normal. C1-2: Normal. C2-3: Normal height of disc. Normal disc signal. No disc herniation. Nouncovertebral hypertrophy. Normal facet joints. No central spinalstenosis, no right foramen stenosis, no left foramen stenosis. C3-4: Normal height of disc. Normal disc signal. No disc herniation. Nouncovertebral hypertrophy. Normal facet joints. No central spinalstenosis, no right foramen stenosis, no left foramen stenosis. C4-5: Normal height of disc. Normal disc signal. No disc herniation. Nouncovertebral hypertrophy. Normal facet joints. No central spinalstenosis, no right foramen stenosis, no left foramen stenosis. C5-6: Mild loss of disc height. Mild disc desiccation. Mild generalizeddisc bulge. No uncovertebral hypertrophy. Normal facet joints. No centralspinal stenosis, no right foramen stenosis, no left foramen stenosis. C6-7: Normal height of disc. Normal disc signal. No disc herniation. Nouncovertebral hypertrophy. Normal facet joints. No central spinalstenosis, no right foramen stenosis, no left foramen stenosis. C7-T1: Normal height of disc. Normal disc signal. No disc herniation. Nouncovertebral hypertrophy. Normal facet joints. No central spinalstenosis, no right foramen stenosis, no left foramen stenosis. THORACIC SPINE: Alignment: Normal coronal and sagittal alignment. Vertebral height: No acute fracture. Normal height of vertebral bodies. Marrow signal: Normal Spinal cord: No abnormal signal. Discs: No significant interbody degeneration. Mild degenerative discdisease at T5-T6 and T11-T12, a small posterior disc protrusions resultsin mild spinal stenosis at these levels. No significant facet arthropathy.No high-grade central stenosis. No high-grade foraminal stenosis. No pathologic contrast enhancement. Extraspinal: No extraspinal abnormality. LUMBAR SPINE: Nomenclature based on 5 lumbar type vertebral bodies. - Normal coronal and sagittal alignment. Normal vertebral body heights. Normal marrow signal. Normal distal spinal cord and cauda equina with conus medullaris at L2. No pathologic contrast enhancement. Asymmetric prominence of left psoas muscle with chronic atrophy of theright iliopsoas muscles. Unremarkable visualized bony pelvis. T12-L1: Normal height of disc. Normal disc signal without herniation.Normal facet joints. No recess stenosis. No central spinal stenosis, noright foramen stenosis, no left foramen stenosis. L1-L2: Normal height of disc. Normal disc signal without herniation.Normal facet joints. No recess stenosis. No central spinal stenosis, noright foramen stenosis, no left foramen stenosis. L2-L3: Normal height of disc. Normal disc signal without herniation.Normal facet joints. No recess stenosis. No central spinal stenosis, noright foramen stenosis, no left foramen stenosis. L3-L4: Normal height of disc. Normal disc signal without herniation. Mildbilateral facet hypertrophy. No recess stenosis. No central spinalstenosis, no right foramen stenosis, no left foramen stenosis. L4-L5: Normal height of disc. Normal disc signal without herniation.Normal facet joints. No recess stenosis. No central spinal stenosis, noright foramen stenosis, no left foramen stenosis. L5-S1: Normal height of disc. Normal disc signal without herniation. Mildbilateral facet hypertrophy. No recess stenosis. No central spinalstenosis, no right foramen stenosis, no left foramen stenosis. IMPRESSION: CERVICAL SPINE MRI: 1. No acute findings. 2. Mild cervical spondylosis without significant central or foraminalstenosis. THORACIC SPINE MRI: 1. No acute findings. 2. Mild thoracic spondylosis without significant central or foraminalstenosis. LUMBAR SPINE MRI: 1. No acute findings. 2. Mild lumbar spondylosis without significant central or foraminalstenosis. 3. Chronic atrophy of the right iliopsoas muscles. us Mike Moses MD RAD MRI Final Resu lt * MR Thoracic Spine W/WO IV Cont (06/21/2024 5:41 PM CDT) Anatomical Region Laterality Modality Spine, T-Spine, L-Spine, C-Spine, Skeletal, [facility] Magnetic Resonance 06/21/2024 5:41 PM CDT Narrative 06/21/2024 10:39 PM CDT For Patients: As a result of the Cures Act, medical imaging exams and procedure reports are released immediately into your electronic medical record. You may view this report before your referring provider. If you have questions, please contact your health care provider. EXAM: MR CERVICAL SPINE W/WO IV CONT, MR THORACIC SPINE W/WO IV CONT, MR LUMBAR SPINE W/WO IV CONT LOCATION: [facility] DATE/TIME: 06/21/2024 5:40 PM CDT INDICATION: Erlos danlos with myofascial issues, recent fall, has back pain, was due for C/T/L spine MRI will complete here COMPARISON: None. CONTRAST: GADOBUTROL 1 MMOL/ML IV SOLN 7.5 mL TECHNIQUE: 1) Routine Cervical Spine MRI without and with IV contrast. 2) Routine Thoracic Spine MRI without and with IV contrast. 3) Routine Lumbar Spine MRI without and with IV contrast. FINDINGS: CERVICAL SPINE: Alignment: Normal. Vertebral height: Normal. Marrow signal: Normal. Spinal cord: No abnormal signal. Extraspinal: No extraspinal abnormality. No pathologic contrast enhancement. Craniovertebral junction: Normal. C1-2: Normal. C2-3: Normal height of disc. Normal disc signal. No disc herniation. No uncovertebral hypertrophy. Normal facet joints. No central spinal stenosis, no right foramen stenosis, no left foramen stenosis. C3-4: Normal height of disc. Normal disc signal. No disc herniation. No uncovertebral hypertrophy. Normal facet joints. No central spinal stenosis, no right foramen stenosis, no left foramen stenosis. C4-5: Normal height of disc. Normal disc signal. No disc herniation. No uncovertebral hypertrophy. Normal facet joints. No central spinal stenosis, no right foramen stenosis, no left foramen stenosis. C5-6: Mild loss of disc height. Mild disc desiccation. Mild generalized disc bulge. No uncovertebral hypertrophy. Normal facet joints. No central spinal stenosis, no right foramen stenosis, no left foramen stenosis. C6-7: Normal height of disc. Normal disc signal. No disc herniation. No uncovertebral hypertrophy. Normal facet joints. No central spinal stenosis, no right foramen stenosis, no left foramen stenosis. C7-T1: Normal height of disc. Normal disc signal. No disc herniation. No uncovertebral hypertrophy. Normal facet joints. No central spinal stenosis, no right foramen stenosis, no left foramen stenosis. THORACIC SPINE: Alignment: Normal coronal and sagittal alignment. Vertebral height: No acute fracture. Normal height of vertebral bodies. Marrow signal: Normal Spinal cord: No abnormal signal. Discs: No significant interbody degeneration. Mild degenerative disc disease at T5-T6 and T11-T12, a small posterior disc protrusions results in mild spinal stenosis at these levels. No significant facet arthropathy. No high-grade central stenosis. No high-grade foraminal stenosis. No pathologic contrast enhancement. Extraspinal: No extraspinal abnormality. LUMBAR SPINE: Nomenclature based on 5 lumbar type vertebral bodies. - Normal coronal and sagittal alignment. Normal vertebral body heights. Normal marrow signal. Normal distal spinal cord and cauda equina with conus medullaris at L2. No pathologic contrast enhancement. Asymmetric prominence of left psoas muscle with chronic atrophy of the right iliopsoas muscles. Unremarkable visualized bony pelvis. T12-L1: Normal height of disc. Normal disc signal without herniation. Normal facet joints. No recess stenosis. No central spinal stenosis, no right foramen stenosis, no left foramen stenosis. L1-L2: Normal height of disc. Normal disc signal without herniation. Normal facet joints. No recess stenosis. No central spinal stenosis, no right foramen stenosis, no left foramen stenosis. L2-L3: Normal height of disc. Normal disc signal without herniation. Normal facet joints. No recess stenosis. No central spinal stenosis, no right foramen stenosis, no left foramen stenosis. L3-L4: Normal height of disc. Normal disc signal without herniation. Mild bilateral facet hypertrophy. No recess stenosis. No central spinal stenosis, no right foramen stenosis, no left foramen stenosis. L4-L5: Normal height of disc. Normal disc signal without herniation. Normal facet joints. No recess stenosis. No central spinal stenosis, no right foramen stenosis, no left foramen stenosis. L5-S1: Normal height of disc. Normal disc signal without herniation. Mild bilateral facet hypertrophy. No recess stenosis. No central spinal stenosis, no right foramen stenosis, no left foramen stenosis. IMPRESSION: CERVICAL SPINE MRI: 1. No acute findings. 2. Mild cervical spondylosis without significant central or foraminal stenosis. THORACIC SPINE MRI: 1. No acute findings. 2. Mild thoracic spondylosis without significant central or foraminal stenosis. LUMBAR SPINE MRI: 1. No acute findings. 2. Mild lumbar spondylosis without significant central or foraminal stenosis. 3. Chronic atrophy of the right iliopsoas muscles. Procedure Note Shlomo Esparza MD - 06/21/2024 For Patients: As a result of the Cures Act, medical imagingexams and procedure reports are released immediately into your electronicmedical record. You may view this report before your referring provider.If you have questions, please contact your health care provider. EXAM: MR CERVICAL SPINE W/WO IV CONT, MR THORACIC SPINE W/WO IV CONT, MRLUMBAR SPINE W/WO IV CONT LOCATION: [facility] DATE/TIME: 06/21/2024 5:40 PM CDT INDICATION: Erlos danlos with myofascial issues, recent fall, has backpain, was due for C/T/L spine MRI will complete here COMPARISON: None. CONTRAST: GADOBUTROL 1 MMOL/ML IV SOLN 7.5 mL TECHNIQUE: 1) Routine Cervical Spine MRI without and with IV contrast. 2) Routine Thoracic Spine MRI without and with IV contrast. 3) Routine Lumbar Spine MRI without and with IV contrast. FINDINGS: CERVICAL SPINE: Alignment: Normal. Vertebral height: Normal. Marrow signal: Normal. Spinal cord: No abnormal signal. Extraspinal: No extraspinal abnormality. No pathologic contrast enhancement. Craniovertebral junction: Normal. C1-2: Normal. C2-3: Normal height of disc. Normal disc signal. No disc herniation. Nouncovertebral hypertrophy. Normal facet joints. No central spinalstenosis, no right foramen stenosis, no left foramen stenosis. C3-4: Normal height of disc. Normal disc signal. No disc herniation. Nouncovertebral hypertrophy. Normal facet joints. No central spinalstenosis, no right foramen stenosis, no left foramen stenosis. C4-5: Normal height of disc. Normal disc signal. No disc herniation. Nouncovertebral hypertrophy. Normal facet joints. No central spinalstenosis, no right foramen stenosis, no left foramen stenosis. C5-6: Mild loss of disc height. Mild disc desiccation. Mild generalizeddisc bulge. No uncovertebral hypertrophy. Normal facet joints. No centralspinal stenosis, no right foramen stenosis, no left foramen stenosis. C6-7: Normal height of disc. Normal disc signal. No disc herniation. Nouncovertebral hypertrophy. Normal facet joints. No central spinalstenosis, no right foramen stenosis, no left foramen stenosis. C7-T1: Normal height of disc. Normal disc signal. No disc herniation. Nouncovertebral hypertrophy. Normal facet joints. No central spinalstenosis, no right foramen stenosis, no left foramen stenosis. THORACIC SPINE: Alignment: Normal coronal and sagittal alignment. Vertebral height: No acute fracture. Normal height of vertebral bodies. Marrow signal: Normal Spinal cord: No abnormal signal. Discs: No significant interbody degeneration. Mild degenerative discdisease at T5-T6 and T11-T12, a small posterior disc protrusions resultsin mild spinal stenosis at these levels. No significant facet arthropathy.No high-grade central stenosis. No high-grade foraminal stenosis. No pathologic contrast enhancement. Extraspinal: No extraspinal abnormality. LUMBAR SPINE: Nomenclature based on 5 lumbar type vertebral bodies. - Normal coronal and sagittal alignment. Normal vertebral body heights. Normal marrow signal. Normal distal spinal cord and cauda equina with conus medullaris at L2. No pathologic contrast enhancement. Asymmetric prominence of left psoas muscle with chronic atrophy of theright iliopsoas muscles. Unremarkable visualized bony pelvis. T12-L1: Normal height of disc. Normal disc signal without herniation.Normal facet joints. No recess stenosis. No central spinal stenosis, noright foramen stenosis, no left foramen stenosis. L1-L2: Normal height of disc. Normal disc signal without herniation.Normal facet joints. No recess stenosis. No central spinal stenosis, noright foramen stenosis, no left foramen stenosis. L2-L3: Normal height of disc. Normal disc signal without herniation.Normal facet joints. No recess stenosis. No central spinal stenosis, noright foramen stenosis, no left foramen stenosis. L3-L4: Normal height of disc. Normal disc signal without herniation. Mildbilateral facet hypertrophy. No recess stenosis. No central spinalstenosis, no right foramen stenosis, no left foramen stenosis. L4-L5: Normal height of disc. Normal disc signal without herniation.Normal facet joints. No recess stenosis. No central spinal stenosis, noright foramen stenosis, no left foramen stenosis. L5-S1: Normal height of disc. Normal disc signal without herniation. Mildbilateral facet hypertrophy. No recess stenosis. No central spinalstenosis, no right foramen stenosis, no left foramen stenosis. IMPRESSION: CERVICAL SPINE MRI: 1. No acute findings. 2. Mild cervical spondylosis without significant central or foraminalstenosis. THORACIC SPINE MRI: 1. No acute findings. 2. Mild thoracic spondylosis without significant central or foraminalstenosis. LUMBAR SPINE MRI: 1. No acute findings. 2. Mild lumbar spondylosis without significant central or foraminalstenosis. 3. Chronic atrophy of the right iliopsoas muscles. us Mike Moses MD RAD MRI Final Resu lt * MR Cervical Spine W/WO IV Cont (06/21/2024 5:40 PM CDT) Anatomical Region Laterality Modality Spine, C-Spine, Neck, Vascular, [facility] Magnetic Resonance 06/21/2024 5:40 PM CDT Narrative 06/21/2024 10:39 PM CDT For Patients: As a result of the Cures Act, medical imaging exams and procedure reports are released immediately into your electronic medical record. You may view this report before your referring provider. If you have questions, please contact your health care provider. EXAM: MR CERVICAL SPINE W/WO IV CONT, MR THORACIC SPINE W/WO IV CONT, MR LUMBAR SPINE W/WO IV CONT LOCATION: [facility] DATE/TIME: 06/21/2024 5:40 PM CDT INDICATION: Dionicio guerrero with myofascial issues, recent fall, has back pain, was due for C/T/L spine MRI will complete here COMPARISON: None. CONTRAST: GADOBUTROL 1 MMOL/ML IV SOLN 7.5 mL TECHNIQUE: 1) Routine Cervical Spine MRI without and with IV contrast. 2) Routine Thoracic Spine MRI without and with IV contrast. 3) Routine Lumbar Spine MRI without and with IV contrast. FINDINGS: CERVICAL SPINE: Alignment: Normal. Vertebral height: Normal. Marrow signal: Normal. Spinal cord: No abnormal signal. Extraspinal: No extraspinal abnormality. No pathologic contrast enhancement. Craniovertebral junction: Normal. C1-2: Normal. C2-3: Normal height of disc. Normal disc signal. No disc herniation. No uncovertebral hypertrophy. Normal facet joints. No central spinal stenosis, no right foramen stenosis, no left foramen stenosis. C3-4: Normal height of disc. Normal disc signal. No disc herniation. No uncovertebral hypertrophy. Normal facet joints. No central spinal stenosis, no right foramen stenosis, no left foramen stenosis. C4-5: Normal height of disc. Normal disc signal. No disc herniation. No uncovertebral hypertrophy. Normal facet joints. No central spinal stenosis, no right foramen stenosis, no left foramen stenosis. C5-6: Mild loss of disc height. Mild disc desiccation. Mild generalized disc bulge. No uncovertebral hypertrophy. Normal facet joints. No central spinal stenosis, no right foramen stenosis, no left foramen stenosis. C6-7: Normal height of disc. Normal disc signal. No disc herniation. No uncovertebral hypertrophy. Normal facet joints. No central spinal stenosis, no right foramen stenosis, no left foramen stenosis. C7-T1: Normal height of disc. Normal disc signal. No disc herniation. No uncovertebral hypertrophy. Normal facet joints. No central spinal stenosis, no right foramen stenosis, no left foramen stenosis. THORACIC SPINE: Alignment: Normal coronal and sagittal alignment. Vertebral height: No acute fracture. Normal height of vertebral bodies. Marrow signal: Normal Spinal cord: No abnormal signal. Discs: No significant interbody degeneration. Mild degenerative disc disease at T5-T6 and T11-T12, a small posterior disc protrusions results in mild spinal stenosis at these levels. No significant facet arthropathy. No high-grade central stenosis. No high-grade foraminal stenosis. No pathologic contrast enhancement. Extraspinal: No extraspinal abnormality. LUMBAR SPINE: Nomenclature based on 5 lumbar type vertebral bodies. - Normal coronal and sagittal alignment. Normal vertebral body heights. Normal marrow signal. Normal distal spinal cord and cauda equina with conus medullaris at L2. No pathologic contrast enhancement. Asymmetric prominence of left psoas muscle with chronic atrophy of the right iliopsoas muscles. Unremarkable visualized bony pelvis. T12-L1: Normal height of disc. Normal disc signal without herniation. Normal facet joints. No recess stenosis. No central spinal stenosis, no right foramen stenosis, no left foramen stenosis. L1-L2: Normal height of disc. Normal disc signal without herniation. Normal facet joints. No recess stenosis. No central spinal stenosis, no right foramen stenosis, no left foramen stenosis. L2-L3: Normal height of disc. Normal disc signal without herniation. Normal facet joints. No recess stenosis. No central spinal stenosis, no right foramen stenosis, no left foramen stenosis. L3-L4: Normal height of disc. Normal disc signal without herniation. Mild bilateral facet hypertrophy. No recess stenosis. No central spinal stenosis, no right foramen stenosis, no left foramen stenosis. L4-L5: Normal height of disc. Normal disc signal without herniation. Normal facet joints. No recess stenosis. No central spinal stenosis, no right foramen stenosis, no left foramen stenosis. L5-S1: Normal height of disc. Normal disc signal without herniation. Mild bilateral facet hypertrophy. No recess stenosis. No central spinal stenosis, no right foramen stenosis, no left foramen stenosis. IMPRESSION: CERVICAL SPINE MRI: 1. No acute findings. 2. Mild cervical spondylosis without significant central or foraminal stenosis. THORACIC SPINE MRI: 1. No acute findings. 2. Mild thoracic spondylosis without significant central or foraminal stenosis. LUMBAR SPINE MRI: 1. No acute findings. 2. Mild lumbar spondylosis without significant central or foraminal stenosis. 3. Chronic atrophy of the right iliopsoas muscles. Procedure Note Shlomo Esparza MD - 06/21/2024 For Patients: As a result of the 21st Century Cures Act, medical imagingexams and procedure reports are released immediately into your electronicmedical record. You may view this report before your referring provider.If you have questions, please contact your health care provider. EXAM: MR CERVICAL SPINE W/WO IV CONT, MR THORACIC SPINE W/WO IV CONT, MRLUMBAR SPINE W/WO IV CONT LOCATION: [facility] DATE/TIME: 06/21/2024 5:40 PM CDT INDICATION: Erlos danlos with myofascial issues, recent fall, has backpain, was due for C/T/L spine MRI will complete here COMPARISON: None. CONTRAST: GADOBUTROL 1 MMOL/ML IV SOLN 7.5 mL TECHNIQUE: 1) Routine Cervical Spine MRI without and with IV contrast. 2) Routine Thoracic Spine MRI without and with IV contrast. 3) Routine Lumbar Spine MRI without and with IV contrast. FINDINGS: CERVICAL SPINE: Alignment: Normal. Vertebral height: Normal. Marrow signal: Normal. Spinal cord: No abnormal signal. Extraspinal: No extraspinal abnormality. No pathologic contrast enhancement. Craniovertebral junction: Normal. C1-2: Normal. C2-3: Normal height of disc. Normal disc signal. No disc herniation. Nouncovertebral hypertrophy. Normal facet joints. No central spinalstenosis, no right foramen stenosis, no left foramen stenosis. C3-4: Normal height of disc. Normal disc signal. No disc herniation. Nouncovertebral hypertrophy. Normal facet joints. No central spinalstenosis, no right foramen stenosis, no left foramen stenosis. C4-5: Normal height of disc. Normal disc signal. No disc herniation. Nouncovertebral hypertrophy. Normal facet joints. No central spinalstenosis, no right foramen stenosis, no left foramen stenosis. C5-6: Mild loss of disc height. Mild disc desiccation. Mild generalizeddisc bulge. No uncovertebral hypertrophy. Normal facet joints. No centralspinal stenosis, no right foramen stenosis, no left foramen stenosis. C6-7: Normal height of disc. Normal disc signal. No disc herniation. Nouncovertebral hypertrophy. Normal facet joints. No central spinalstenosis, no right foramen stenosis, no left foramen stenosis. C7-T1: Normal height of disc. Normal disc signal. No disc herniation. Nouncovertebral hypertrophy. Normal facet joints. No central spinalstenosis, no right foramen stenosis, no left foramen stenosis. THORACIC SPINE: Alignment: Normal coronal and sagittal alignment. Vertebral height: No acute fracture. Normal height of vertebral bodies. Marrow signal: Normal Spinal cord: No abnormal signal. Discs: No significant interbody degeneration. Mild degenerative discdisease at T5-T6 and T11-T12, a small posterior disc protrusions resultsin mild spinal stenosis at these levels. No significant facet arthropathy.No high-grade central stenosis. No high-grade foraminal stenosis. No pathologic contrast enhancement. Extraspinal: No extraspinal abnormality. LUMBAR SPINE: Nomenclature based on 5 lumbar type vertebral bodies. - Normal coronal and sagittal alignment. Normal vertebral body heights. Normal marrow signal. Normal distal spinal cord and cauda equina with conus medullaris at L2. No pathologic contrast enhancement. Asymmetric prominence of left psoas muscle with chronic atrophy of theright iliopsoas muscles. Unremarkable visualized bony pelvis. T12-L1: Normal height of disc. Normal disc signal without herniation.Normal facet joints. No recess stenosis. No central spinal stenosis, noright foramen stenosis, no left foramen stenosis. L1-L2: Normal height of disc. Normal disc signal without herniation.Normal facet joints. No recess stenosis. No central spinal stenosis, noright foramen stenosis, no left foramen stenosis. L2-L3: Normal height of disc. Normal disc signal without herniation.Normal facet joints. No recess stenosis. No central spinal stenosis, noright foramen stenosis, no left foramen stenosis. L3-L4: Normal height of disc. Normal disc signal without herniation. Mildbilateral facet hypertrophy. No recess stenosis. No central spinalstenosis, no right foramen stenosis, no left foramen stenosis. L4-L5: Normal height of disc. Normal disc signal without herniation.Normal facet joints. No recess stenosis. No central spinal stenosis, noright foramen stenosis, no left foramen stenosis. L5-S1: Normal height of disc. Normal disc signal without herniation. Mildbilateral facet hypertrophy. No recess stenosis. No central spinalstenosis, no right foramen stenosis, no left foramen stenosis. IMPRESSION: CERVICAL SPINE MRI: 1. No acute findings. 2. Mild cervical spondylosis without significant central or foraminalstenosis. THORACIC SPINE MRI: 1. No acute findings. 2. Mild thoracic spondylosis without significant central or foraminalstenosis. LUMBAR SPINE MRI: 1. No acute findings. 2. Mild lumbar spondylosis without significant central or foraminalstenosis. 3. Chronic atrophy of the right iliopsoas muscles. us Mike Moses MD RAD MRI Final Resu lt * EJECTION FRACTION (06/20/2024 3:14 PM CDT) EF 60 % SYNAPSE EF test type ECHO SYNAPSE 06/20/2024 3:14 PM CDT us Mike Moses MD [facility] CHIPS SCREEN TENDER/RH F inal Result SYNAPSE [address] [place] [address] * CARDIAC ROUTINE ECHOCARDIOGRAM (06/20/2024 3:14 PM CDT) 06/20/2024 3:14 PM CDT Narrative SYNAPSE - 06/20/2024 4:13 PM CDT Summary 1. Technically difficult exam- Doppler sensitivity is reduced due to image quality/body habitus. 2. Normal left ventricular chamber size; normal ejection fraction (55-60% by visual estimate); normal wall motion. 3. Normal right ventricular chamber size with normal systolic function. 4. No significant valvular abnormalities. 5. No pericardial effusion. 6. Normal inferior vena cava size with normal inspiratory collapse (>50%) consistent with normal central venous pressures. 7. A prior study is not available for comparison. Report Signatures Finalized by Nat Schwartz on 06/20/2024 04:13 PM Procedure Note Nat Schwartz MD - 06/20/2024 Summary 1. Technically difficult exam- Doppler sensitivity is reduced due toimage quality/body habitus. 2. Normal left ventricular chamber size; normal ejection fraction(55-60% by visual estimate); normal wall motion. 3. Normal right ventricular chamber size with normal systolicfunction. 4. No significant valvular abnormalities. 5. No pericardial effusion. 6. Normal inferior vena cava size with normal inspiratory collapse(>50%) consistent with normal central venous pressures. 7. A prior study is not available for comparison. Report Signatures Finalized by Nat Schwartz on 06/20/2024 04:13 PM us Mike Moses MD [facility] ECHO/RH Final Result Performing Organization Address [facility] de Phone Number SYNAPSE [address] [place] [phone] * ECG 12-Lead Routine (Lab perform) (06/20/2024 12:44 PM CDT) EKG Completed 06/20/2024 3:00 PM CDT [facility] Other Specimen Type Venipuncture Butterfly / Unknown 06/20/2024 12:44 PM CDT 06/20/2024 1:25 PM CDT us Mike Moses MD LAB_[email or web address] Final Resu lt Performing Organization Address [facility] de Phone Number [address] * Ecg 12-Lead Routine (MUSE) (06/20/2024 12:38 PM CDT) Ventricular Rate 74 BPM MUSE [facility] Atrial Rate 74 BPM MUSE GHP P-R Interval 164 ms MUSE GHP QRS Duration 88 ms MUSE GHP QT 364 ms MUSE GHP QTC 404 ms MUSE GHP P [place] 49 degrees MUSE GHP R [place] 92 degrees MUSE GHP T [place] 20 degrees MUSE GHP 06/20/2024 12:3 8 PM CDT Narrative MUSE GHP - 06/20/2024 2:05 PM CDT Sinus rhythm Possible Left atrial enlargement Rightward axis Borderline ECG No previous ECGs available Confirmed by Guerline Jones ([id number]) on 06/20/2024 2:05:42 PM Procedure Note Guerline Jones MD - 06/20/2024 Sinus rhythm Possible Left atrial enlargement Rightward axis Borderline ECG No previous ECGs available Confirmed by Guerline Jones ([id number]) on 06/20/2024 2:05:42 PM us Mike Moses MD EKG Final Resu lt Performing Organization Address [facility]/State/ZIP Co de Phone Number JIL [address] [place] [address] * Cystatin C with GFR (06/20/2024 6:52 AM CDT) Cystatin C 0.9 0.5 - 1.0 mg/L 06/21/2024 9:20 AM CDT [facility] Cystatin C GFR 103 mL/min/1.7 3m2 06/21/2024 9:20 AM CDT [facility] Blood Venipuncture / Unknown 06/20/2024 6:52 AM CDT 06/20/2024 7:26 AM CDT us Mike Moses MD LAB_1 Final Resu lt Performing Organization Address [facility] Co de Phone Number [facility] [address] * Magnesium (06/20/2024 6:52 AM CDT) Only the most recent of2 resultswithin the time period is included. Magnesium 2.1 1.6 - 2.6 mg/dL 06/20/2024 8:09 AM CDT [facility] Blood Venipuncture / Unknown 06/20/2024 6:52 AM CDT 06/20/2024 7:26 AM CDT us Addi Blum MD LAB_1 Final Result [address] * Phosphorus (06/20/2024 6:52 AM CDT) Phosphorus 4.5 2.3 - 4.7 mg/dL 06/20/2024 8:09 AM CDT [facility] Blood Venipuncture / Unknown 06/20/2024 6:52 AM CDT 06/20/2024 7:26 AM CDT Addi Blum MD LAB_1 Final Result Performing Organization Address [facility]/ZIP Co de Phone Number [address] * Glucose, Whole Blood POCT (06/19/2024 9:14 PM CDT) Glucose, Whole Blood 103 70 - 180 mg/dL 06/19/2024 9:16 PM CDT [facility] POCT Comment 1 MD/RN Notified 06/19/2024 9:16 PM CDT [facility] Performing Location RCLab W2 06/19/2024 9:16 PM CDT [facility] Blood 06/19/2024 9:14 PM CDT 06/19/2024 9:16 PM CDT us Addi Blum MD LAB_1 Final Result Performing Organization Address [facility] Co tx Phone [address] * Blood Culture (06/19/2024 2:38 PM CDT) Only the most recent of2 resultswithin the time period is included. Blood Culture No Growth at 5 Days RH LAB ETEST METHOD 06/24/2024 4:00 PM CDT [facility] Blood VENIPUNCTURE / Unknown Venipuncture / Unknown 06/19/2024 2:38 PM CDT 06/19/2024 2:50 PM CDT us Addi Blum MD LAB_1 Final Result Performing Organization Address [facility]/ZIP Co de Phone Number [address] * Urine Culture (06/19/2024 11:08 AM CDT) Urine Culture No Growth After 1 Day 06/20/2024 10:56 AM CDT [facility] Urine (Straight catheter) Non-blood Collection / Unknown 06/19/2024 11:08 AM CDT 06/19/2024 11:13 AM CDT us Addi Blum MD LAB_1 Final Result [facility] [address] [place] [address], [facility] * (ABNORMAL) UA Conditional UC: Straight catheter (06/19/2024 11:08 AM CDT) Urine Culture Comment Urinalysis results do not meet criteria for urine culture reflex. 06/19/2024 11:43 AM [facility] Urine Color Light-Yellow 06/19/2024 11:43 AM [facility] Urine Clarity Clear Clear 06/19/2024 11:43 AM [facility] Specific [place], Urine 1.017 <1.030 06/19/2024 11:43 AM [facility] PH Urine 8.0 5.0 - 8.0 06/19/2024 11:43 AM [facility] Protein Negative Negative, 10 , 20 mg/dL 06/19/2024 11:43 AM [facility] Glucose Normal (Negative) Normal (Negative), 30 , 50 mg/dL 06/19/2024 11:43 AM [facility] Ketones 10(A) Negative, Trace mg/dL 06/19/2024 11:43 AM [facility] Urobilinogen Normal (Negative) Normal (Negative) EU/dL 06/19/2024 11:43 AM [facility] Bilirubin Negative Negative mg/dL 06/19/2024 11:43 AM [facility] Blood, Urine (mg/dL) Negative Negative, 0.03 (Trace) 06/19/2024 11:43 AM [facility] Nitrite Urine Negative Negative 06/19/2024 11:43 AM [facility] Leukocyte Esterase Negative Negative, 25 (Trace) REBECA/uL 06/19/2024 11:43 AM [facility] Red Blood Cells 0 0 - 3 /HPF 11:43 AM [facility] White Blood Cells 0 0 - 5 /HPF 06/19/2024 11:43 AM [facility] Mucus Present(A) None Seen /HPF 06/19/2024 11:43 AM [facility] Source Straight catheter 06/19/2024 11:43 AM [facility] Urine (Straight catheter) Non-blood Collection / Unknown 06/19/2024 11:08 AM CDT 06/19/2024 11:13 AM CDT Narrative [facility] - 06/19/2024 11:43 AM CDT The qualitative interpretive guidance provided (e.g., small, moderate, large) is intended to aid in quantitative result interpretation. It is not itself an FDA-cleared test result. Melissa Garrett MD LAB_1 Final Result Performing Organization Address City/State/[facility] de Phone Number [address] [address], [facility] * CT Lumbar Spine WO IV Cont (06/19/2024 10:51 AM CDT) Anatomical Region Laterality Modality Spine, L-Spine Computed Tomogra phy 06/19/2024 10:5 1 AM CDT Narrative 06/19/2024 11:17 AM CDT EXAM: CT HEAD WO IV CONT, CT LUMBAR SPINE WO IV CONT, CT THORACIC SPINE WO IV CONT, CT CERVICAL SPINE WO IV CONT LOCATION: [facility] DATE: 06/19/2024 INDICATION: GCS 14 or 15 - head injury and amnesia; GCS 14 or 15 - head injury and amnesia COMPARISON: None. TECHNIQUE: 1) Routine CT Head without IV contrast. Multiplanar reformats. Dose reduction techniques were used. 2) Routine CT Cervical Spine without IV contrast. Multiplanar reformats. Dose reduction techniques were used. 3) Routine CT Thoracic Spine without IV contrast. Multiplanar reformats. Dose reduction techniques were used. 4) Routine CT Lumbar Spine without IV contrast. Multiplanar reformats. Dose reduction techniques were used. FINDINGS: HEAD CT: INTRACRANIAL CONTENTS: No intracranial hemorrhage or mass effect. No loss of velez-white matter differentiation. Preserved parenchymal attenuation for patient age. Preserved ventricles and sulci for patient age. VISUALIZED ORBITS/SINUSES/MASTOIDS: No intraorbital abnormality. No paranasal sinus mucosal disease. No middle ear or mastoid effusion. BONES/SOFT TISSUES: No scalp hematoma. No skull fracture. CERVICAL SPINE CT: VERTEBRA: Preserved vertebral heights and alignment. No traumatic subluxation. No acute fracture. No prevertebral edema. CANAL: No bony encroachment on the spinal canal. PARASPINAL: Nonfocal extraspinal structures. THORACIC SPINE CT: VERTEBRA: Preserved vertebral heights and alignment. No traumatic subluxation. No acute fracture. CANAL: No bony encroachment on the spinal canal. PARASPINAL: Nonfocal extraspinal structures. LUMBAR SPINE CT: VERTEBRA: Preserved vertebral heights and alignment. No traumatic subluxation. No acute fracture. CANAL: No bony encroachment on the spinal canal. PARASPINAL: Nonfocal extraspinal structures. IMPRESSION: HEAD CT: 1. Negative for acute intracranial hemorrhage or skull fracture. CERVICAL SPINE CT: 1. Negative for acute fracture or traumatic subluxation. THORACIC SPINE CT: 1. Negative for acute fracture or traumatic subluxation. LUMBAR SPINE CT: 1. Negative for acute fracture or traumatic subluxation. Procedure Note Aung Haines, DO - 06/19/2024 EXAM: CT HEAD WO IV CONT, CT LUMBAR SPINE WO IV CONT, CT THORACIC SPINE WOIV CONT, CT CERVICAL SPINE WO IV CONT LOCATION: [facility] DATE: 06/19/2024 INDICATION: GCS 14 or 15 - head injury and amnesia; GCS 14 or 15 - headinjury and amnesia COMPARISON: None. TECHNIQUE: 1) Routine CT Head without IV contrast. Multiplanar reformats. Dosereduction techniques were used. 2) Routine CT Cervical Spine without IV contrast. Multiplanar reformats.Dose reduction techniques were used. 3) Routine CT Thoracic Spine without IV contrast. Multiplanar reformats.Dose reduction techniques were used. 4) Routine CT Lumbar Spine without IV contrast. Multiplanar reformats.Dose reduction techniques were used. FINDINGS: HEAD CT: INTRACRANIAL CONTENTS: No intracranial hemorrhage or mass effect. No lossof velez-white matter differentiation. Preserved parenchymal attenuationfor patient age. Preserved ventricles and sulci for patient age. VISUALIZED ORBITS/SINUSES/MASTOIDS: No intraorbital abnormality. Noparanasal sinus mucosal disease. No middle ear or mastoid effusion. BONES/SOFT TISSUES: No scalp hematoma. No skull fracture. CERVICAL SPINE CT: VERTEBRA: Preserved vertebral heights and alignment. No traumaticsubluxation. No acute fracture. No prevertebral edema. CANAL: No bony encroachment on the spinal canal. PARASPINAL: Nonfocal extraspinal structures. THORACIC SPINE CT: VERTEBRA: Preserved vertebral heights and alignment. No traumaticsubluxation. No acute fracture. CANAL: No bony encroachment on the spinal canal. PARASPINAL: Nonfocal extraspinal structures. LUMBAR SPINE CT: VERTEBRA: Preserved vertebral heights and alignment. No traumaticsubluxation. No acute fracture. CANAL: No bony encroachment on the spinal canal. PARASPINAL: Nonfocal extraspinal structures. IMPRESSION: HEAD CT: 1. Negative for acute intracranial hemorrhage or skull fracture. CERVICAL SPINE CT: 1. Negative for acute fracture or traumatic subluxation. THORACIC SPINE CT: 1. Negative for acute fracture or traumatic subluxation. LUMBAR SPINE CT: 1. Negative for acute fracture or traumatic subluxation. Melissa Garrett MD RAD CT Final Result * CT Thoracic Spine WO IV Cont (06/19/2024 10:51 AM CDT) Anatomical Region Laterality Modality Spine, T-Spine, Skeletal Compute d Tomography 06/19/2024 10:5 1 AM CDT Narrative 06/19/2024 11:17 AM CDT EXAM: CT HEAD WO IV CONT, CT LUMBAR SPINE WO IV CONT, CT THORACIC SPINE WO IV CONT, CT CERVICAL SPINE WO IV CONT LOCATION: [facility] DATE: 06/19/2024 INDICATION: GCS 14 or 15 - head injury and amnesia; GCS 14 or 15 - head injury and amnesia COMPARISON: None. TECHNIQUE: 1) Routine CT Head without IV contrast. Multiplanar reformats. Dose reduction techniques were used. 2) Routine CT Cervical Spine without IV contrast. Multiplanar reformats. Dose reduction techniques were used. 3) Routine CT Thoracic Spine without IV contrast. Multiplanar reformats. Dose reduction techniques were used. 4) Routine CT Lumbar Spine without IV contrast. Multiplanar reformats. Dose reduction techniques were used. FINDINGS: HEAD CT: INTRACRANIAL CONTENTS: No intracranial hemorrhage or mass effect. No loss of velez-white matter differentiation. Preserved parenchymal attenuation for patient age. Preserved ventricles and sulci for patient age. VISUALIZED ORBITS/SINUSES/MASTOIDS: No intraorbital abnormality. No paranasal sinus mucosal disease. No middle ear or mastoid effusion. BONES/SOFT TISSUES: No scalp hematoma. No skull fracture. CERVICAL SPINE CT: VERTEBRA: Preserved vertebral heights and alignment. No traumatic subluxation. No acute fracture. No prevertebral edema. CANAL: No bony encroachment on the spinal canal. PARASPINAL: Nonfocal extraspinal structures. THORACIC SPINE CT: VERTEBRA: Preserved vertebral heights and alignment. No traumatic subluxation. No acute fracture. CANAL: No bony encroachment on the spinal canal. PARASPINAL: Nonfocal extraspinal structures. LUMBAR SPINE CT: VERTEBRA: Preserved vertebral heights and alignment. No traumatic subluxation. No acute fracture. CANAL: No bony encroachment on the spinal canal. PARASPINAL: Nonfocal extraspinal structures. IMPRESSION: HEAD CT: 1. Negative for acute intracranial hemorrhage or skull fracture. CERVICAL SPINE CT: 1. Negative for acute fracture or traumatic subluxation. THORACIC SPINE CT: 1. Negative for acute fracture or traumatic subluxation. LUMBAR SPINE CT: 1. Negative for acute fracture or traumatic subluxation. Procedure Note Aung Haines, DO - 06/19/2024 EXAM: CT HEAD WO IV CONT, CT LUMBAR SPINE WO IV CONT, CT THORACIC SPINE WOIV CONT, CT CERVICAL SPINE WO IV CONT LOCATION: [facility] DATE: 06/19/2024 INDICATION: GCS 14 or 15 - head injury and amnesia; GCS 14 or 15 - headinjury and amnesia COMPARISON: None. TECHNIQUE: 1) Routine CT Head without IV contrast. Multiplanar reformats. Dosereduction techniques were used. 2) Routine CT Cervical Spine without IV contrast. Multiplanar reformats.Dose reduction techniques were used. 3) Routine CT Thoracic Spine without IV contrast. Multiplanar reformats.Dose reduction techniques were used. 4) Routine CT Lumbar Spine without IV contrast. Multiplanar reformats.Dose reduction techniques were used. FINDINGS: HEAD CT: INTRACRANIAL CONTENTS: No intracranial hemorrhage or mass effect. No lossof velez-white matter differentiation. Preserved parenchymal attenuationfor patient age. Preserved ventricles and sulci for patient age. VISUALIZED ORBITS/SINUSES/MASTOIDS: No intraorbital abnormality. Noparanasal sinus mucosal disease. No middle ear or mastoid effusion. BONES/SOFT TISSUES: No scalp hematoma. No skull fracture. CERVICAL SPINE CT: VERTEBRA: Preserved vertebral heights and alignment. No traumaticsubluxation. No acute fracture. No prevertebral edema. CANAL: No bony encroachment on the spinal canal. PARASPINAL: Nonfocal extraspinal structures. THORACIC SPINE CT: VERTEBRA: Preserved vertebral heights and alignment. No traumaticsubluxation. No acute fracture. CANAL: No bony encroachment on the spinal canal. PARASPINAL: Nonfocal extraspinal structures. LUMBAR SPINE CT: VERTEBRA: Preserved vertebral heights and alignment. No traumaticsubluxation. No acute fracture. CANAL: No bony encroachment on the spinal canal. PARASPINAL: Nonfocal extraspinal structures. IMPRESSION: HEAD CT: 1. Negative for acute intracranial hemorrhage or skull fracture. CERVICAL SPINE CT: 1. Negative for acute fracture or traumatic subluxation. THORACIC SPINE CT: 1. Negative for acute fracture or traumatic subluxation. LUMBAR SPINE CT: 1. Negative for acute fracture or traumatic subluxation. Melissa Garrett MD RAD CT Final Result * CT Cervical Spine WO IV Cont (06/19/2024 10:50 AM CDT) Anatomical Region Laterality Modality C-Spine, Spine Computed Tomogra phy 06/19/2024 10:5 0 AM CDT Narrative 06/19/2024 11:17 AM CDT EXAM: CT HEAD WO IV CONT, CT LUMBAR SPINE WO IV CONT, CT THORACIC SPINE WO IV CONT, CT CERVICAL SPINE WO IV CONT LOCATION: [facility] DATE: 06/19/2024 INDICATION: GCS 14 or 15 - head injury and amnesia; GCS 14 or 15 - head injury and amnesia COMPARISON: None. TECHNIQUE: 1) Routine CT Head without IV contrast. Multiplanar reformats. Dose reduction techniques were used. 2) Routine CT Cervical Spine without IV contrast. Multiplanar reformats. Dose reduction techniques were used. 3) Routine CT Thoracic Spine without IV contrast. Multiplanar reformats. Dose reduction techniques were used. 4) Routine CT Lumbar Spine without IV contrast. Multiplanar reformats. Dose reduction techniques were used. FINDINGS: HEAD CT: INTRACRANIAL CONTENTS: No intracranial hemorrhage or mass effect. No loss of velez-white matter differentiation. Preserved parenchymal attenuation for patient age. Preserved ventricles and sulci for patient age. VISUALIZED ORBITS/SINUSES/MASTOIDS: No intraorbital abnormality. No paranasal sinus mucosal disease. No middle ear or mastoid effusion. BONES/SOFT TISSUES: No scalp hematoma. No skull fracture. CERVICAL SPINE CT: VERTEBRA: Preserved vertebral heights and alignment. No traumatic subluxation. No acute fracture. No prevertebral edema. CANAL: No bony encroachment on the spinal canal. PARASPINAL: Nonfocal extraspinal structures. THORACIC SPINE CT: VERTEBRA: Preserved vertebral heights and alignment. No traumatic subluxation. No acute fracture. CANAL: No bony encroachment on the spinal canal. PARASPINAL: Nonfocal extraspinal structures. LUMBAR SPINE CT: VERTEBRA: Preserved vertebral heights and alignment. No traumatic subluxation. No acute fracture. CANAL: No bony encroachment on the spinal canal. PARASPINAL: Nonfocal extraspinal structures. IMPRESSION: HEAD CT: 1. Negative for acute intracranial hemorrhage or skull fracture. CERVICAL SPINE CT: 1. Negative for acute fracture or traumatic subluxation. THORACIC SPINE CT: 1. Negative for acute fracture or traumatic subluxation. LUMBAR SPINE CT: 1. Negative for acute fracture or traumatic subluxation. Procedure Note Aung Haines, DO - 06/19/2024 EXAM: CT HEAD WO IV CONT, CT LUMBAR SPINE WO IV CONT, CT THORACIC SPINE WOIV CONT, CT CERVICAL SPINE WO IV CONT LOCATION: [facility] DATE: 06/19/2024 INDICATION: GCS 14 or 15 - head injury and amnesia; GCS 14 or 15 - headinjury and amnesia COMPARISON: None. TECHNIQUE: 1) Routine CT Head without IV contrast. Multiplanar reformats. Dosereduction techniques were used. 2) Routine CT Cervical Spine without IV contrast. Multiplanar reformats.Dose reduction techniques were used. 3) Routine CT Thoracic Spine without IV contrast. Multiplanar reformats.Dose reduction techniques were used. 4) Routine CT Lumbar Spine without IV contrast. Multiplanar reformats.Dose reduction techniques were used. FINDINGS: HEAD CT: INTRACRANIAL CONTENTS: No intracranial hemorrhage or mass effect. No lossof velez-white matter differentiation. Preserved parenchymal attenuationfor patient age. Preserved ventricles and sulci for patient age. VISUALIZED ORBITS/SINUSES/MASTOIDS: No intraorbital abnormality. Noparanasal sinus mucosal disease. No middle ear or mastoid effusion. BONES/SOFT TISSUES: No scalp hematoma. No skull fracture. CERVICAL SPINE CT: VERTEBRA: Preserved vertebral heights and alignment. No traumaticsubluxation. No acute fracture. No prevertebral edema. CANAL: No bony encroachment on the spinal canal. PARASPINAL: Nonfocal extraspinal structures. THORACIC SPINE CT: VERTEBRA: Preserved vertebral heights and alignment. No traumaticsubluxation. No acute fracture. CANAL: No bony encroachment on the spinal canal. PARASPINAL: Nonfocal extraspinal structures. LUMBAR SPINE CT: VERTEBRA: Preserved vertebral heights and alignment. No traumaticsubluxation. No acute fracture. CANAL: No bony encroachment on the spinal canal. PARASPINAL: Nonfocal extraspinal structures. IMPRESSION: HEAD CT: 1. Negative for acute intracranial hemorrhage or skull fracture. CERVICAL SPINE CT: 1. Negative for acute fracture or traumatic subluxation. THORACIC SPINE CT: 1. Negative for acute fracture or traumatic subluxation. LUMBAR SPINE CT: 1. Negative for acute fracture or traumatic subluxation. Melissa Garrett MD RAD CT Final Result * CT Head WO IV Cont (06/19/2024 10:50 AM CDT) Anatomical Region Laterality Modality Head Computed Tomogra phy 06/19/2024 10:5 0 AM CDT Narrative 06/19/2024 11:17 AM CDT EXAM: CT HEAD WO IV CONT, CT LUMBAR SPINE WO IV CONT, CT THORACIC SPINE WO IV CONT, CT CERVICAL SPINE WO IV CONT LOCATION: [facility] DATE: 06/19/2024 INDICATION: GCS 14 or 15 - head injury and amnesia; GCS 14 or 15 - head injury and amnesia COMPARISON: None. TECHNIQUE: 1) Routine CT Head without IV contrast. Multiplanar reformats. Dose reduction techniques were used. 2) Routine CT Cervical Spine without IV contrast. Multiplanar reformats. Dose reduction techniques were used. 3) Routine CT Thoracic Spine without IV contrast. Multiplanar reformats. Dose reduction techniques were used. 4) Routine CT Lumbar Spine without IV contrast. Multiplanar reformats. Dose reduction techniques were used. FINDINGS: HEAD CT: INTRACRANIAL CONTENTS: No intracranial hemorrhage or mass effect. No loss of velez-white matter differentiation. Preserved parenchymal attenuation for patient age. Preserved ventricles and sulci for patient age. VISUALIZED ORBITS/SINUSES/MASTOIDS: No intraorbital abnormality. No paranasal sinus mucosal disease. No middle ear or mastoid effusion. BONES/SOFT TISSUES: No scalp hematoma. No skull fracture. CERVICAL SPINE CT: VERTEBRA: Preserved vertebral heights and alignment. No traumatic subluxation. No acute fracture. No prevertebral edema. CANAL: No bony encroachment on the spinal canal. PARASPINAL: Nonfocal extraspinal structures. THORACIC SPINE CT: VERTEBRA: Preserved vertebral heights and alignment. No traumatic subluxation. No acute fracture. CANAL: No bony encroachment on the spinal canal. PARASPINAL: Nonfocal extraspinal structures. LUMBAR SPINE CT: VERTEBRA: Preserved vertebral heights and alignment. No traumatic subluxation. No acute fracture. CANAL: No bony encroachment on the spinal canal. PARASPINAL: Nonfocal extraspinal structures. IMPRESSION: HEAD CT: 1. Negative for acute intracranial hemorrhage or skull fracture. CERVICAL SPINE CT: 1. Negative for acute fracture or traumatic subluxation. THORACIC SPINE CT: 1. Negative for acute fracture or traumatic subluxation. LUMBAR SPINE CT: 1. Negative for acute fracture or traumatic subluxation. Procedure Note Aung Haines, DO - 06/19/2024 EXAM: CT HEAD WO IV CONT, CT LUMBAR SPINE WO IV CONT, CT THORACIC SPINE WOIV CONT, CT CERVICAL SPINE WO IV CONT LOCATION: [facility] DATE: 06/19/2024 INDICATION: GCS 14 or 15 - head injury and amnesia; GCS 14 or 15 - headinjury and amnesia COMPARISON: None. TECHNIQUE: 1) Routine CT Head without IV contrast. Multiplanar reformats. Dosereduction techniques were used. 2) Routine CT Cervical Spine without IV contrast. Multiplanar reformats.Dose reduction techniques were used. 3) Routine CT Thoracic Spine without IV contrast. Multiplanar reformats.Dose reduction techniques were used. 4) Routine CT Lumbar Spine without IV contrast. Multiplanar reformats.Dose reduction techniques were used. FINDINGS: HEAD CT: INTRACRANIAL CONTENTS: No intracranial hemorrhage or mass effect. No lossof velez-white matter differentiation. Preserved parenchymal attenuationfor patient age. Preserved ventricles and sulci for patient age. VISUALIZED ORBITS/SINUSES/MASTOIDS: No intraorbital abnormality. Noparanasal sinus mucosal disease. No middle ear or mastoid effusion. BONES/SOFT TISSUES: No scalp hematoma. No skull fracture. CERVICAL SPINE CT: VERTEBRA: Preserved vertebral heights and alignment. No traumaticsubluxation. No acute fracture. No prevertebral edema. CANAL: No bony encroachment on the spinal canal. PARASPINAL: Nonfocal extraspinal structures. THORACIC SPINE CT: VERTEBRA: Preserved vertebral heights and alignment. No traumaticsubluxation. No acute fracture. CANAL: No bony encroachment on the spinal canal. PARASPINAL: Nonfocal extraspinal structures. LUMBAR SPINE CT: VERTEBRA: Preserved vertebral heights and alignment. No traumaticsubluxation. No acute fracture. CANAL: No bony encroachment on the spinal canal. PARASPINAL: Nonfocal extraspinal structures. IMPRESSION: HEAD CT: 1. Negative for acute intracranial hemorrhage or skull fracture. CERVICAL SPINE CT: 1. Negative for acute fracture or traumatic subluxation. THORACIC SPINE CT: 1. Negative for acute fracture or traumatic subluxation. LUMBAR SPINE CT: 1. Negative for acute fracture or traumatic subluxation. Melissa Garrett MD RAD CT Final Result * XR Ankle Rt 3 Views (06/06/2024 1:18 PM CDT) Anatomical Region Laterality Modality Lower Extremity, Ankle, Foot & Ankle Computed Radiography 06/06/2024 1:18 PM CDT Narrative 06/07/2024 4:16 PM CDT EXAM: XR ANKLE RT 3 VIEWS LOCATION: [place] [address] DATE: 06/06/2024 INDICATION: Repair dislocation peroneal tendons with fibular groove deepening and longus to brevis tenodesis (Right), Encounter for other orthopedic aftercare, PROSTHESIS EVALUATION. COMPARISON: 2024. IMPRESSION: Incomplete healing of the postoperative change involving the distal fibula status post fibular groove deepening, where there are nondisplaced linear bony lucencies. No change in alignment. Small bone fragment tip of the lateral malleolus is unchanged. There is some soft tissue swelling and faint mineralization along lateral ankle. Ankle mortise is intact. Procedure Note Gabo Koch MD - 06/07/2024 EXAM: XR ANKLE RT 3 VIEWS LOCATION: [facility] 435 DATE: 06/06/2024 INDICATION: Repair dislocation peroneal tendons with fibular groovedeepening and longus to brevis tenodesis (Right), Encounter for otherorthopedic aftercare, PROSTHESIS EVALUATION. COMPARISON: 2024. IMPRESSION: Incomplete healing of the postoperative change involving thedistal fibula status post fibular groove deepening, where there arenondisplaced linear bony lucencies. No change in alignment. Small bonefragment tip of the lateral malleolus is unchanged. There is some softtissue swelling and faint mineralization along lateral ankle. Anklemortise is intact. us Anahi Van MD RAD GD Final Result from Last 3 Months Insurance [facility] Advance Directives * Full Code (Latest Code Status on File) Date Activated Date Inactivated Comments 06/19/2024 4:06 PM 07/04/2024 2:51 PM Care Teams Mule Rider Relationship Specialty Start Date End Date Eliana Guerra MD [address] [place] [address] PCP - General Family Practice 12/04/19
--- OUTSIDE RECORDS SUMMARY | 2024-08-25 22:48 | XMS_ITS ---
Author Organization [place] Address [facility] [place] [address] Care Team Providers Care Analytical Scientist Name Role Phone Kei Eugene MD Unavailable [phone] Eliana Guerra MD Primary Care Provider Eliana Guerra MD Unavailable [phone] Eliana Guerra MD Unavailable [phone] Unavailable Unavailable Charisma Obregonyvonne SNOW TANK FARM ATTENDANT Unavailable [phone] Efrain Crow PA-C Unavailable [phone] Home Infusion Status:Enrolled (Active) Start date:03/05/2024 Enrollment date:03/14/2024 Enrollment reason:Identified using referral data Related service episodes:Enteral (Active) Case Team Name Relationship Phone Anastacia Rodriguez RD I Registered Dietitian Continued Care and Services Coordination This section includes services coordinated for Home Infusion. [facility] Name Services Phone [facility] ENTER[facility] ONLY Home Nursing [phone]
--- OUTSIDE RECORDS SUMMARY | 2024-08-25 22:48 | XMS_ITS | Encounter Summary ---
Author Organization [place] Address [address] [place] [address]. [place] [address] Care Team Providers Care Industrial Conveyor Belt Repairer Name Role Phone Kei Eugene MD Unavailable [phone] Eliana Guerra MD Primary Care Provider [phone] Eliana Guerra MD Unavailable [phone] Eliana Guerra MD Unavailable [phone] Unavailable Unavailable Jody Obregon APRN PORTABLE FEED MILL OPERATOR Unavailable [phone] Efrain Crow PA-C Unavailable [phone] Regina Monroy RN Unavailable Unavailabl e Encounter Details Date Type Department Care Team (Late st Contact Info) Description 04/05/2024 Home Infusion [facility] [address] [place] [phone] Anastacia Rodriguez, JESUS ALBERTO Social History [...] in an abandoned building, in an overnight fpc, or couch-surfing.) Yes 03/03/2024 Are you worried [...] on file 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 Gender Identity Not on file Sexual Orientation Not on file documented as of this encounter Progress Notes * Anastacia Rodriguez, RD - 04/05/2024 11:38 AM CST [facility] Nutrition Follow up Anthropometrics/Weight Goals Height: 1.88 m (6' 2.02) Weight: 65.7 kg (144 lb 14.4 oz) IBW Male (kg): 82.24 BMI (kg): 17.97 FHI Dosing Weight: 64.3 kg (141 lb 12.1 oz) Weight history / comments:: 04/05/24: 143 lbs per pt Current Nutrition Orders Oral Diet: 500-1000kcal/day per pt Enteral Nutrition Orders Enteral Formula: Network Game Interaction Standard 1.4 Rate/Frequency: 70ml/hr--up to 5 cartons/day [...] and tolerance Anastacia Rodriguez RD, CNSC, LD [facility] Dietitian BATOR OPERATOR documented in this encounter Plan of Treatment Scheduled Procedures Name Priority Associated Diagnoses Date/Ti me SURGICAL EXTRACTION, TOOTH Chronic pericoronitis documented as of this encounter Visit Diagnoses Not on filedocumented in this encounter Care Teams Industrial Conveyor Belt Repairer Relationship Specialty Start Date End Date Eliana Guerra MD [address] [place] [address] PCP - General Family Medicine 03/04/24 Kei Eugene MD [address] [place] [address] Assigned Musculoskeletal Provider 03/01/24 Eliana Guerra MD [facility] [address] [place] [address] Home Infusion Following Provider Family Medicine 03/11/24 Eliana Guerra MD [facility] [address] [place] [address] Home Infusion Following Provider Family Medicine 03/14/[address] [facility] Registered Dietitian Dietitian 03/14/24 Jody Obregon APRN PORTABLE FEED MILL OPERATOR Home Infusion Following Provider 03/14/24 Efrain Crow PA-C [facility] [address] [address] Home Infusion Following Provider Gastroenterology 06/25/24 Regina Monroy, KASIE [facility] Resource Team 07/16/24 07/17/24 documented as of this encounter
--- OUTSIDE RECORDS SUMMARY | 2024-08-25 22:48 | XMS_ITS | Encounter Summary ---
Author Organization [facility] Address [address], [place] [address] Care Team Providers Care Personal Development Mentor Name Role Phone Eliana Guerra MD Primary Care Provider [phone] Reason for Visit * Reason Comments Reschedule Appointment Encounter Details Date Type Department Care Team (Late st Contact Info) Description 06/06/2024 Telephone Orthopedics at [address] [address] Nilay Ceron MD [address] [place] [address] [place], [place] [address] Reschedule Appointment Social History Tobacco Use Types Packs/Day Years Used Date Smoking Tobacco: Never Assessed Sex and Gender Information Value Date Recorded Sex Assigned at Not on file 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 documented in this encounter Plan of Treatment Upcoming Encounters Date Type Department Care Team (Late st Contact Info) Description 09/17/2024 10:10 AM CDT Appointment Orthopedics at [address] [address] Nilay Ceron MD [address] [place] [address] [place] [address] documented as of this encounter Visit Diagnoses Not on filedocumented in this encounter Care Teams Personal Development Mentor Relationship Specialty Start Date End Date Eliana Guerra MD [address] [place] [address] PCP - General Family Practice 12/04/19 documented as of this encounter
--- NOTE | 2024-08-25 23:07 | ED.GENADULT ---
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 Patient has chronic get disability and still needs to self-catheterize secondary to his allergies Danlos. Patient is currently on ciprofloxacin for urinary tract infection but feels like his symptoms are not getting better. He is not sexually active. He is occasional pus in his urine as well as significant dysuria and urinary frequency as well as aching in his bladder. No systemic symptoms. Patient is extremely nervous which I do think accounts for his tachycardia. No fever noted. Patient has no other systemic symptoms. Related Data Home Medications ?Medication ?Instructions ?Recorded ?Confirmed diclofenac sodium 1 % topical gel 2 g topical QID 11/08/23 05/17/24 famotidine 40 mg tablet 40 mg PO DAILY 11/08/23 05/17/24 polyethylene glycol 3350 17 17 g PO DAILY PRN 11/28/23 05/17/24 gram/dose oral powder diazepam 5 mg tablet 5 mg PO TID PRN 05/17/24 05/17/24 fluoxetine 20 mg capsule 20 mg PO DAILY 05/17/24 05/17/24 metoclopramide HCl 5 mg tablet 5 mg PO TID 05/17/24 05/17/24 Previous Rx's ?Medication ?Instructions ?Recorded ondansetron 4 mg disintegrating 4 mg PO Q8H PRN nausea and 12/02/23 tablet vomiting #10 tabs amoxicillin 400 mg-potassium 10 ml PO BID 7 days #140 mL 05/17/24 clavulanate 57 mg/5 mL oral suspension cefdinir 250 mg/5 mL oral 300 mg (6 mL) PO BID 7 days #84 mL 05/17/24 suspension Allergies Allergy/AdvReac Type Severity Reaction Status Date / Time No Known Allergies Allergy Verified 05/17/24 15:00 Review of Systems Status of ROS: Reports: 10 or more systems reviewed and unremarkable except as noted in History and below [facility] Medical History 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) ?Q98.4 - Klinefelter syndrome, unspecified (ICD-10) 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) ?Q79.60 - Kamari-Danlos syndrome, unspecified (ICD-10) Connective tissue disorder (01/04/18) ?M35.9 - Systemic involvement of connective tissue, unspecified (ICD-10) Tension-type headache (09/24/20) ?G44.209 - Tension-type headache, unspecified, not intractable (ICD-10) 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) ?M26.609 - Unspecified temporomandibular joint disorder, unspecified side (ICD-10) Labral tear of right hip joint (12/12/19) ?S73.191A - Other sprain of right hip, initial encounter (ICD-10) Scoliosis (01/04/18) ?M41.9 - Scoliosis, unspecified (ICD-10) Polyarthralgia ?M25.50 - Pain in unspecified joint (ICD-10) Pes planus (03/23/18) ?M21.40 - Flat foot [pes planus] (acquired), unspecified foot (ICD-10) Pectus excavatum (12/29/13) ?Q67.6 - Pectus excavatum (ICD-10) Pain in left wrist (07/01/20) ?M25.532 - Pain in left wrist (ICD-10) Hip pain, bilateral (12/12/19) ?M25.551 - Pain in right hip (ICD-10) ?M25.552 - Pain in left hip (ICD-10) Myofascial pain syndrome (09/24/20) ?M79.18 - Myalgia, other site (ICD-10) 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) ?M35.7 - Hypermobility syndrome (ICD-10) Hypogonadism male (03/23/18) ?E29.1 - Testicular hypofunction (ICD-10) Hypermobility of joint (09/24/20) ?M24.9 - Joint derangement, unspecified (ICD-10) Foot drop, left ?M21.372 - Foot drop, left foot (ICD-10) Exertional headache (04/18/18) ?G44.84 - Primary exertional headache (ICD-10) De Quervain's tenosynovitis (05/23/20) ?M65.4 - Radial styloid tenosynovitis [de Quervain] (ICD-10) Congenital pes planus (03/23/18) ?Q66.50 - Congenital pes planus, unspecified foot (ICD-10) Chronic back pain (04/21/23) ?M54.9 - Dorsalgia, unspecified (ICD-10) ?G89.29 - Other chronic pain (ICD-10) Cell chromosome examination abnormal (03/23/18) ?R89.8 - Other abnormal findings in specimens from other organs, systems and tissues (ICD-10) Bilateral tinnitus (09/24/20) ?H93.13 - Tinnitus, bilateral (ICD-10) Atrophy of testis (03/23/18) ?N50.0 - Atrophy of testis (ICD-10) 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) ?M26.639 - Articular disc disorder of temporomandibular joint, unspecified side (ICD-10) Arthralgia of temporomandibular joint (09/24/20) ?M26.629 - Arthralgia of temporomandibular joint, unspecified side (ICD-10) Acquired pectus carinatum ?M95.4 - Acquired deformity of chest and rib (ICD-10) Dyspepsia ?R10.13 - Epigastric pain (ICD-10) Malnutrition ?E46 - Unspecified protein-calorie malnutrition (ICD-10) Klinefelter syndrome ?Q98.4 - Klinefelter syndrome, unspecified (ICD-10) Connective tissue disorder ?M35.9 - Systemic involvement of connective tissue, unspecified (ICD-10) Weakness ?R53.1 - Weakness (ICD-10) Instability of left hip joint ?M25.352 - Other instability, left hip (ICD-10) Wrist joint instability ?M25.339 - Other instability, unspecified wrist (ICD-10) 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 - Kamari-Danlos syndrome, unspecified (ICD-10) Scaphoid fracture ?S62.009A - Unspecified fracture of navicular [scaphoid] bone of unspecified wrist, initial encounter for closed fracture (ICD-10) Klinefelter syndrome ?Q98.4 - Klinefelter syndrome, unspecified (ICD-10) 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 - Pectus excavatum (ICD-10) Contusion of great toe of left foot ?S90.112A - Contusion of left great toe without damage to nail, initial encounter (ICD-10) Chronic patellofemoral pain of left knee ?M25.562 - Pain in left knee (ICD-10) ?G89.29 - Other chronic pain (ICD-10) Tear of triangular fibrocartilage complex (TFCC) of right wrist (~07/2021) ?S63.591A - Other specified sprain of right wrist, initial encounter (ICD-10) Surgical History Status post arthroscopy of hip ?Z98.890 - Other specified postprocedural states (ICD-10) History of carpal tunnel surgery of left wrist (02/02/21) ?Z98.890 - Other specified postprocedural states (ICD-10) Social History Narrative: He lives with his mother. His mother has left for trip to [place] 9 days ago. He is mostly home alone. His father, who has significant disabilities, comes to stay with him at times. He also has therapists and home health who come into the home daily. 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 He has been unable to work recently because of his multiple disabilities. He does not smoke. He drinks alcohol a couple times a week. He occasionally uses cannabis. What is your current living situation?: I presently have a place to live Problems where you live: no known problems Problems where you live details: n/a In the past 12 months, utilities in danger of being shut off: no In past 12 months, lack of transportation kept you from medical appts, meetings, work, or getting things needed for daily living: yes In the past 12 mos, have been you worried that your food would run out before you had money to buy more?: never true In the past 12 mos, the food you bought just didn't last and you didn't have money to buy more?: never true Smoking Status: Never smoker Do you use any of these nicotine containing products: None Second hand tobacco smoke exposure: Yes (occasionally) How often do you have a drink containing alcohol: 2-4 times a month How many standard drinks containing alcohol do you have on a typical day: 3 or 4 How often do you have six or more drinks on one occasion: Less than monthly AUDIT-C Alcohol total score: 4 Non-prescribed substance use: denies use Caffeine: Yes (rarely) How often does anyone, including family, friends and others, physically hurt you: never How often does anyone, including family, friends and others, insult or talk down to you: never How often does anyone, including family, friends and others, threaten you with harm: never How often does anyone, including family, friends and others, scream or curse at you: never service: No Health Related Social Needs: transportation insecurity (Z59.82) Exam Narrative: Exam Narrative: EXAM GENERAL: Patient appears comfortable but very rigid appearance with braces noted. EYES: No scleral icterus. ENT: Tympanic membranes and oropharynx normal. THYROID: no thyroid nodules or thyromegaly. LYMPH: No supraclavicular or cervical lymphadenopathy. SKIN: Visible skin seen during exam normal or with benign process only. EXT: No dependent lower extremity pedal edema. HEART: Regular rate and rhythm with no murmurs, rubs, or gallops. LUNGS: Clear to auscultation bilaterally with no crackles or wheezes. ABD: Soft, non tender, non distended. PSYCH: Good eye contact, speech is not pressured. Const: Vital Signs, click to edit/add: Vital Signs - 24 hr 08/25/24 22:46 Temperature 97.1 F L Pulse Rate [Left P ulse Oximeter] 123 H Respiratory Rate 16 Blood Pressure [Ri ght Upper Arm] 173/92 H Pulse Oximetry 99 Oxygen Delivery Me thod Room Air Course Course ED Course: Patient seen examined. Urinalysis and bladder scan ordered. Vital Signs Vital signs: Initial Vital Signs Temperature 97.1 F L 08/25/24 22:46 Temperature Source Temporal Artery Scan 08/25/24 22:46 Pulse Rate 123 H 08/25/24 22:46 Pulse Rhythm Regular 08/25/24 22:46 Respiratory Rate 16 08/25/24 22:46 Blood Pressure 173/92 H 08/25/24 22:46 Blood Pressure Mean 119 H 08/25/24 22:46 Blood Pressure Position Sitting 08/25/24 22:46 Pulse Oximetry 99 08/25/24 22:46 Oxygen Delivery Method Room Air 08/25/24 22:46 Vital Signs Temperature 97.1 F L 08/25/24 22:46 Pulse Rate 123 H 08/25/24 22:46 Respiratory Rate 16 08/25/24 22:46 Blood Pressure 173/92 H 08/25/24 22:46 Pulse Oximetry 99 08/25/24 22:46 Oxygen Delivery Method Room Air 08/25/24 22:46 Temperature 97.1 F L 08/25/24 22:46 Pulse Rate 123 H 08/25/24 22:46 Respiratory Rate 16 08/25/24 22:46 Blood Pressure 173/92 H 08/25/24 22:46 Pulse Oximetry 99 08/25/24 22:46 Oxygen Delivery Method Room Air 08/25/24 22:46 Medical Decision Making MDM Narrative Medical decision making narrative: Patient presents with incompletely treated urinary tract infection and likely is due to repeated self catheterization. His urine culture and align did grow Klebsiella which was sensitive. I did give a g Rocephin. He has completed course of Cipro. He is mostly having a hard time emptying his bladder and I do think placing a catheter in place to drainage for several days with close outpatient follow-up is reasonable. I would not recommend any further oral antibiotics at this time. He has had multiple catheterizations in the past and feels like this will help him back to baseline. Lab Data Labs: Lab Results 08/25/24 Range/Units 23:10 Urine Color Yellow (Yellow) Urine Appearance Cloudy A (Clear) Urine pH 7.5 (5.0-8.5) Ur Specific [place] 1.015 (1.000-1.030) Urine Protein 2+ A (Negative) Urine Glucose (UA) Negative (Negative) Urine Ketones Negative (Negative) Urine Blood Trace-intact A (Negative) Urine Nitrite Positive A (Negative) Urine Bilirubin Negative (Negative) Urine Urobilinogen 0.2 (0.2-1.0) Ur Leukocyte Esterase 1+ A (Negative) Urine RBC >100 A (0-2) Urine WBC >100 A (0-5) Ur Squamous Epith Cells None (None-Few) Urine Bacteria Many A (None) Discharge Plan Discharge Clinical Impression: Acute UTI Patient Disposition: Home, Self-Care Condition: Stable Instructions: Urinary Tract Infection in Men (ED) Additional Instructions: Continue current care Garza catheter as directed Follow-up with your doctor Tuesday or Tuesday to discuss next steps. Activity Level: No Restrictions Discharge Diet: Regular Prescriptions: No Action metoclopramide HCl 5 mg tablet 5 mg PO TID fluoxetine 20 mg capsule 20 mg PO DAILY diazepam 5 mg tablet 5 mg PO TID PRN amoxicillin-pot clavulanate 400-57 mg/5 mL suspension for reconstitution 10 ml PO BID 7 Days Qty: 140 0RF cefdinir 250 mg/5 mL suspension for reconstitution 300 mg PO BID 7 Days Qty: 84 0RF famotidine 40 mg tablet 40 mg PO DAILY diclofenac sodium 1 % gel 2 g topical QID polyethylene glycol 3350 17 gram/dose powder 17 g PO DAILY PRN ondansetron 4 mg tablet,disintegrating 4 mg PO Q8H PRN (Reason: nausea and vomiting) Qty: 10 0RF Follow Up/Referrals: Eliana Guerra MD [Primary Care Provider, Family Practice] Stand Alone Forms: Tablefinder Info Instructions
--- OUTSIDE RECORDS SUMMARY | 2024-08-25 23:10 | XMS_ITS | Patient Health Record ---
Author Organization [facility] Address [facility] [address] [place] [address] Care Team Providers Care Licensed Marine Engineer Name Role Phone Charlie GARCIA, Eliana Primary Care Provider JOHANNA GARCIA, PhD, SINCERE Reza [phone] Reason For Referral No Information Medications Medication SIG (Take, Route, Fr equency, Duration) Notes Start Date End Date Status Iron Not-Taking Problems Problem Type SNOMED Code ICD Code Onset Dates Problem Status W/U Status Risk Notes Problem Pectus excavatum (698640492) Pectus excavatum (Q67.6) Active confirmed Problem Disorder of connective tissue (223749854) Connective tissue disorder (M35.9) Active confirmed Problem Acquired pectus carinatum (53109524) 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 Plan Of Treatment Pending Test Test Name Order Date C-Reactive Protein (CRP) (CRP) 8 Insurance Providers Payer Name Payer Address Payer Phone Subscriber Number Group Number Insured Name Patient Relationship to Insured Coverage Start Date Coverage End Date BLUE [employer]US PMAP-20 19 [address] [address] [place] [address] [id number] [facility] Paramjit Boyce Self - patient is the insured 9 Medical (General) History Medical History History ICD Code Syndromes/anomalies: Connective tissue d isorder Other: Pectus excavatum, Acquired pectus carinatum Surgical History Surgery Date(Month/Year) Daja procedure for pectus excavatum 10/08 10/25
[2024-08-25 23:17] LABS: Appearance Urine Cloudy (Clear)
[2024-08-26] MEDS: cefTRIAXone 1 GM in 0.9 % SODIUM CHLORIDE Mini-bag 100 ML IVPB (00:31)
== END 2024-08-26 00:36 | disposition home or self-care (01) ==
PROVIDERS: Emergency Provider Internal Medicine; PCP Family Medicine
DX: N39.0 Urinary tract infection, site not specified (principal)
CPT/HCPCS: 81001; 81003; 87086; 96365; 99283; J0696

== ENCOUNTER 2024-09-18 11:17 | Outpatient (CLI) | payer BC, SELFPAY | END 2024-09-18 11:18 | disposition home or self-care (01) | LOC: NFLDUCREF 11:19 | PROVIDERS: PCP Family Medicine; Visit Provider Physician Assistant | DX: R39.89 Other symptoms and signs involving the genitourinary system (principal); N39.0 Urinary tract infection, site not specified | CPT/HCPCS: 87086 ==

== ENCOUNTER 2024-10-26 01:21 | Emergency (ER) | payer BC, SELFPAY ==
--- OUTSIDE RECORDS SUMMARY | 2024-09-17 07:50 | XMS_ITS | Encounter Summary ---
Author Organization [facility] Address [address] [place] [address] Care Team Providers Care Residential Property Consultant Name Role Phone Eliana Guerra MD Primary Care Provider [phone] Reason for Visit * Reason Comments Follow-up Bilateral hips Encounter Details Date Type Department Care Team (Late st Contact Info) Description 09/17/2024 7:50 AM CDT Phone Visit Orthopedics at [address] [place] [address] Nilay Ceron MD [address] [facility], [place] [phone] Bilateral hip pain (Primary Dx) Social History Tobacco Use Types Packs/Day Years Used Date Smoking Tobacco: Never Smokeless Tobacco: Never Alcohol Use Standard Drinks/Week Comments Yes 0 (1 standard drink = 0.6 oz pur e alcohol) occasional [facility] Utilities Answer Date Recorded In the past 12 months has e [employer], gas, oil, or water [employer] threatened to shut off services in [...] any time in the past 12 [facility], were you homeless or living in a skilled nursing (including now)? 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 Haines at [place]. He has had persistent pain and instability. He was seen at [place] by Dr. Talbert and was spica casted which transiently alleviated his symptoms. He was also seen by my colleague Dr. Heath at [place] who had discussed a GUILLERMO but was [...] s/p right hip arthroscopy done at the [facility] with persistent symptoms Suggested Diagnostic/Therapeutic Plan: [...] with the patient,he will follow up with [facility]. A total of 20 minutes was spent on this visit in reviewing the chart, interpreting images, seeing and evaluating the patient, discussing treatment, coordinating care, and completing documentation. Nilay Ceron MD documented in this encounter Plan of Treatment Upcoming Encounters Date Type Department Care Team (Late st Contact Info) Description 11/06/2024 3:00 PM CDT Appointment Orthopedics at [address] [place] [address] Anahi Van MD [address] [place] [id number] documented as of this encounter Visit Diagnoses Diagnosis Bilateral hip pain- Primary Pain in joint, pelvic region and thigh documented in this encounter Care Teams Residential Property Consultant Relationship Specialty Start Date End Date Eliana Guerra MD [address] [place] [address] PCP - General Family Practice 12/04/19 documented as of this encounter
--- OUTSIDE RECORDS SUMMARY | 2024-09-17 15:30 | XMS_ITS | Encounter Summary ---
Author Organization [facility] Address [address] [place] [address] Care Team Providers Care Gum Puller Name Role Phone Elsewhere, Pcp Primary Care Provider Unavailabl e Reason for Visit * Outpatient (Routine) - Closed Specialty Diagnoses / Procedures Referred By Ye lund Referred To Contact Urology Kate Egan P.A.-CMackenzie [address] [place] [phone] Phone: tel: fax: Kate Egan, P.A.-C. [address] [place] [phone] Phone: tel: fax: Referral ID Status Reason Start Date Expiration Date Visits Re quested Visits Authorized [id number] Closed 05/24/2024 11/23/2025 1 1 Encounter Details Date Type Department Care Team (Late st Contact Info) Description 09/17/2024 3:30 PM CDT Telemedicine Department of Urology in [place], [place] [address] [place] [address] [phone] Kate Egan P.A.-CMackenzie [address] [place] [address] [phone] Retention Urinary (Primary Dx); Urgency Urinary; Dysuria; Dysfunction Pelvic Floor Male Social History Tobacco Use Types Packs/Day Years Used Date Smoking Tobacco: Never Passive Smoke Exposure: Past Smokeless Tobacco: Never Alcohol Use Standard Drinks/Week Comments Yes 1 (1 standard drink = 0.6 oz pur e alcohol) 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 I have a [facility] place to live 05/29/2024 Education Answer Date Recorded What is the highest level of school you have completed or the highest degree you have received? 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 He is returning to [facility] tomorrow for orthopedic follow-up in request updated [...] contrast from 03/11/2024. This was completed at [place]. On personal review, kidneys appeared normal with [...] with Capsulorrhaphy; Surgeon: Zoltan Haines M.D.; Location: [place] [address] OR ARTHROSCOPY OSTEOPLASTY FEMORAL NECK HIP Right [...] AM CDT Clinical Communication Virtual Review in [address] [phone] 11/01/2024 9:00 AM CDT Appointment Department of Radiology, [facility], [address] [phone] Candida Lucero P.A.-CMackenzie [address] [place] [phone] Discharge Disposition: Home or Self Care 11/01/2024 9:45 AM CDT Appointment Department of Radiology, [facility], in [address] [phone] Candida Lucero, P.A.-CMackenzie [address] [place] [phone] 11/01/2024 1:00 PM CDT Office Visit Department of Physical Medicine and Rehabilitation in [address] [phone] David Weir D.O. [address] [place] [phone] 11/13/2024 2:30 PM CDT Office Visit Department of Sports Medicine in [place], [place] [address] [place] [phone] Ahsan Talbert M.D., Ph.D. [address] [place] [address] [phone] 12/12/2024 8:00 AM ANTHROPOLOGIST [facility] in [address] [phone] Hamilton Beebe, Ph.D., L.P. [address] [place] [phone] 12/13/2024 8:00 AM ANTHROPOLOGIST Clinical [facility] in [address] [phone] Hamilton Beebe, Ph.D., L.P. [address] [place] [phone] 12/14/2024 8:00 AM ANTHROPOLOGIST Clinical [facility] in [address] [phone] Hamilton Beebe, Ph.D., L.P. [address] [place] [phone] 12/17/2024 8:00 AM ANTHROPOLOGIST [facility] in [address] [phone] Hamilton Beebe, Ph.D., L.P. [address] [place] [phone] 12/18/2024 8:00 AM ANTHROPOLOGIST Clinical [facility] in [address] [phone] Hamilton Beebe, Ph.D., L.P. [address] [place] [phone] 12/19/2024 8:00 AM ANTHROPOLOGIST [facility] in [address] [phone] Hamilton Beebe, Ph.D., L.P. [address] [place] [address] [phone] 12/20/2024 8:00 AM ANTHROPOLOGIST Clinical [facility] in [address] [phone] Hamilton Beebe, Ph.D., L.P. [address] [place] [phone] 12/21/2024 8:00 AM ANTHROPOLOGIST Clinical [facility] in [address] [phone] Hamilton Beebe, Ph.D., L.P. [address] [place] [address] [phone] 12/24/2024 8:00 AM ANTHROPOLOGIST Clinical [facility] in [address] [phone] Hamilton Beebe, Ph.D., L.P. [address] [place] [phone] 12/25/2024 8:00 AM ANTHROPOLOGIST Clinical [facility] in [address] [phone] Hamilton Beebe, Ph.D., L.P. [address] [place] [address] [phone] 12/26/2024 8:00 AM ANTHROPOLOGIST Clinical [facility] in [address] [phone] Hamilton Beebe, Ph.D., L.P. [address] [place] [phone] 12/27/2024 8:00 AM ANTHROPOLOGIST Clinical [facility] in [address] [phone] Hamilton Beebe, Ph.D., L.P. [address] [place] [phone] 12/28/2024 8:00 AM ANTHROPOLOGIST Clinical [facility] in [address] [phone] Hamilton Beebe, Ph.D., L.P. [address] [place] [phone] 12/31/2024 8:00 AM ANTHROPOLOGIST Clinical [facility] in [address] [phone] Hamilton Beebe, Ph.D., L.P. [address] [place] [phone] 01/01/2025 8:00 AM ANTHROPOLOGIST Clinical [facility] in [address] [phone] Hamilton Beebe, Ph.D., L.P. [address] [place] [phone] 01/02/2025 8:00 AM ANTHROPOLOGIST [facility] in [place], [place] [address] [place] [phone] Hamilton Beebe, Ph.D., L.P. [address] [place] [phone] 01/07/2025 1:30 PM ANTHROPOLOGIST Telemedicine Department of Urology in [place], [place] [address] [place] [phone] Danielle Pitt D.O. [address] [place] [phone] Scheduled Orders Name Type Priority Associated Diagnoses [...] documented as of this encounter Care Teams Gum Puller Relationship Specialty Start Date End Date Elsewhere, Pcp PCP - General Internal Medicine 05/22/18 documented as of this encounter
--- OUTSIDE RECORDS SUMMARY | 2024-09-18 08:45 | XMS_ITS | Encounter Summary ---
Author Organization [facility] Address [address] [place] [address] Care Team Providers Care Hot Punch Press Operator Name Role Phone Elsewhere, Pcp Primary Care Provider Unavailabl e Reason for Visit * Outpatient (Routine) - Closed Specialty Diagnoses / Procedures Referred By Ye lund Referred To Contact Orthopedic Surgery Mike Salomon Jr., P.A.-C. [address] [place] [phone] Phone: tel: fax: Jose Crawford M.D. [address] [place] [phone] Phone: tel: fax: Referral ID Status Reason Start Date Expiration Date Visits Re quested Visits Authorized [id number] Closed 07/23/2024 01/22/2026 1 1 Encounter Details Date Type Department Care Team (Late st Contact Info) Description 09/18/2024 8:45 AM CDT Office Visit Department of Orthopedic Surgery in [place], [place] [address] [place] [address] [phone] Jose Crawford M.D. 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 I have a [facility] place to live 05/29/2024 Education Answer Date Recorded What is the highest level of school you have completed or the highest degree you have received? Some college, no degree 05/24/2020 Sex and Gender Information Value Date Recorded Sex Assigned at Male 10/29/2020 12:38 PM CDT Legal Sex Male 1:45 PM WEBLOGIC ADMINISTRATOR Gender Identity Male 07/15/2019 8:59 AM CDT Sexual Orientation Straight 07/15/2019 8: 59 AM CDT documented as of this encounter Progress Notes * Jose Crawford M.D. - 09/18/2024 8:45 AM CDT He is now 24 years old. I know him well from stabilizing his wrists and casting in the past. He returns today for an update on the injection. The injection did help provide him some relief. He wants to talk about his shoulder. He is interested in a shoulder spica cast. He talks about frequent subluxations at night and thinks that a shoulder cast would tighten him up. He recently had hip spica casts performed, and he states that these did provide him relief. Today, he is wearing bilateral AFOs. I reviewed his chart with him today. He is no longer seeing Dr. Drummond in PM&R. 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 I wished him well on this. I strongly encouraged him not to cast for his shoulder instability with a shoulder spica. If this does become a problem for him, I told him there is one person in the [facility] who would perhaps be able to provide him some shoulder relief in [place], but he says heis unable to travel at this time. I answered all of his questions today. He has our contact informat [facility]. He should feel free to reach out should he have further questions or concerns. documented in this encounter Plan of Treatment Upcoming Encounters Date Type Department Care Team (Latest Contact Info) Description 10/31/2024 9:15 AM CDT Clinical Communication Virtual Review in [place], [place] 200 [place] [address] 11/01/2024 9:00 AM CDT Appointment Department of Radiology, [facility], in [place], [place] [address] [place] [phone] Candida Lucero P.A.-C. [address] [place] [address] [phone] Discharge Disposition: Home or Self Care 11/01/2024 9:45 AM CDT Appointment Department of Radiology, [facility], in [place], [place] [address] [place] [phone] Candida Lucero P.A.-C. [address] [place] [phone] 11/01/2024 1:00 PM CDT Office Visit Department of Physical Medicine and Rehabilitation in [place], [place] [address] [place] [phone] David Weir D.O. [address] [place] [phone] 11/13/2024 2:30 PM CDT Office Visit Department of Sports Medicine in [place], [place] [address] [place] [phone] Ahsan Talbert M.D., Ph.D. [address] [place] [phone] 12/12/2024 8:00 AM WEBLOGIC ADMINISTRATOR [facility] in [address] [phone] Hamilton Beebe, Ph.D., L.P. [address] [place] [phone] 12/13/2024 8:00 AM WEBLOGIC ADMINISTRATOR Clinical [facility] in [address] [phone] Hamilton Beebe, Ph.D., L.P. [address] [place] [phone] 12/14/2024 8:00 AM WEBLOGIC ADMINISTRATOR Clinical [facility] in [address] [phone] Hamilton Beebe, Ph.D., L.P. [address] [place] [address] [phone] 12/17/2024 8:00 AM WEBLOGIC ADMINISTRATOR Clinical [facility] in [address] [phone] Hamilton Beebe, Ph.D., L.P. [address] [place] [address] [phone] 12/18/2024 8:00 AM WEBLOGIC ADMINISTRATOR Clinical [facility] in [address] [phone] Hamilton Beebe, Ph.D., L.P. [address] [place] [address] [phone] 12/19/2024 8:00 AM WEBLOGIC ADMINISTRATOR Clinical [facility] in [address] [phone] Hamilton Beebe, Ph.D., L.P. [address] [place] [address] [phone] 12/20/2024 8:00 AM WEBLOGIC ADMINISTRATOR [facility] in [address] [phone] Hamilton Beebe, Ph.D., L.P. [address] [place] [phone] 12/21/2024 8:00 AM WEBLOGIC ADMINISTRATOR Clinical [facility] in [address] [phone] Hamilton Beebe, Ph.D., L.P. [address] [place] [phone] 12/24/2024 8:00 AM WEBLOGIC ADMINISTRATOR Clinical [facility] in [address] [phone] Hamilton Beebe, Ph.D., L.P. [address] [place] [phone] 12/25/2024 8:00 AM WEBLOGIC ADMINISTRATOR Clinical [facility] in [address] [phone] Hamilton Beebe, Ph.D., L.P. [address] [place] [phone] 12/26/2024 8:00 AM WEBLOGIC ADMINISTRATOR Clinical [facility] in [address] [phone] Hamilton Beebe, Ph.D., L.P. [address] [place] [phone] 12/27/2024 8:00 AM WEBLOGIC ADMINISTRATOR Clinical [facility] in [address] [phone] Hamilton Beebe, Ph.D., L.P. [address] [place] [phone] 12/28/2024 8:00 AM WEBLOGIC ADMINISTRATOR Clinical [facility] in [address] [phone] Hamilton Beebe, Ph.D., L.P. [address] [place] [phone] 12/31/2024 8:00 AM WEBLOGIC ADMINISTRATOR Clinical [facility] in [address] [place] [address] Hamilton Beebe, Ph.D., L.P. [address] [place] [phone] 01/01/2025 8:00 AM WEBLOGIC ADMINISTRATOR Clinical [facility] in [address] [phone] Hamilton Beebe, Ph.D., L.P. [address] [place] [phone] 01/02/2025 8:00 AM WEBLOGIC ADMINISTRATOR Clinical [facility] in [address] [phone] Hamilton Beebe, Ph.D., L.P. [address] [place] [phone] 01/07/2025 1:30 PM WEBLOGIC ADMINISTRATOR Telemedicine Department of Urology in [place], [place] [address] [place] [phone] Danielle Pitt D.O. [address] [place] [phone] documented as of this encounter Visit Diagnoses Diagnosis Pain Wrist Left- Primary documented in this encounter Additional Health Concerns Assessment Noted Time PHQ-9 Depression Total Score: 5 07/07/19 24 9:17 PM CDT documented as of this encounter Care Teams Hot Punch Press Operator Relationship Specialty Start Date End Date Elsewhere, Pcp PCP - General Internal Medicine 05/22/18 documented as of this encounter
--- OUTSIDE RECORDS SUMMARY | 2024-10-07 11:40 | XMS_ITS | Encounter Summary ---
Author Organization [facility] Address [address] [place] [address] Care Team Providers Care Cement Storage Worker Name Role Phone Eliana Guerra MD Primary Care Provider [phone] Reason for Visit * Reason Comments Forms/Letter Entered automaticall y based on patient selection in [employer]. Encounter Details Date Type Department Care Team (Late st Contact Info) Description 10/07/2024 11:40 AM CDT E-Visit Orthopedics at [address] [address] Nilay Ceron MD [address] [facility] [place] [address] Chief Comp: Forms/Letter Social History Tobacco Use Types Packs/Day Years Used Date Smoking Tobacco: Never Smokeless Tobacco: Never Alcohol Use Standard Drinks/Week Comments Yes 0 (1 standard drink = 0.6 oz pur e alcohol) occasional [facility] Utilities Answer Date Recorded In the past 12 months has [employer], gas, oil, or water [employer] threatened to shut off services in your [...] any time in the past 12 m [facility], were you homeless or living in a snf (including now)? 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 Letter created per patient request. Addy Saxena 10/09/2024 10:21 AM documented in this encounter Plan of Treatment Upcoming Encounters Date Type Department Care Team (Late st Contact Info) Description 11/06/2024 3:00 PM CDT Appointment Orthopedics at [address] [place] [address] Anahi Van MD [address] [place] [address] documented as of this encounter Visit Diagnoses Not on filedocumented in this encounter Care Teams Cement Storage Worker Relationship Specialty Start Date End Date Eliana Guerra MD [address] [place] [address] PCP - General Family Practice 12/04/19 documented as of this encounter
--- OUTSIDE RECORDS SUMMARY | 2024-10-10 14:30 | XMS_ITS | Encounter Summary ---
Author Organization [facility] Address [address] [place] [address] Care Team Providers Care Hearing Specialist Name Role Phone Elsewhere, Pcp Primary Care Provider Unavailabl e Reason for Visit * Outpatient (Routine) - Closed Specialty Diagnoses / Procedures Referred By Ye lund Referred To Contact Diagnoses Retention Urinary Procedures URO Urodynamic study (with flow) Kate Egan P.A.-C. [address] [place] [phone] Phone: tel: fax: [facility] Referral ID Status Reason Start Date Expiration Date Visits Re quested Visits Authorized [id number] Closed 05/24/2024 08/24/2025 1 1 Encounter Details Date Type Department Care Team (Late st Contact Info) Description 10/10/2024 2:30 PM CDT Procedure visit Department of Urology in [place], [place] [address] [place] [phone] Kate Egan P.A.-C. [address] [place] [address] [phone] Tato Pedroza M.D. 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 I have a [facility] place to live 05/29/2024 Education Answer Date Recorded What is the highest level of school you have completed or the highest degree you have received? Some college, no degree 05/24/2020 Sex and Gender Information Value Date Recorded Sex Assigned at Male 10/29/2020 12:38 PM CDT Legal Sex Male 1:45 PM EEO OFFICER Gender Identity Male 07/15/2019 8:59 AM CDT Sexual Orientation Straight 07/15/2019 8: 59 AM CDT documented as of this encounter Patient Instructions * Patient Instructions* Elizabeth Henderson - 10/10/2024 2:30 PM CDT After your urodynamic study After your study, you may go back to your regular routines and activities unless your health care provider tells you not to. It???s common to have these side effects in the first 24 hours after your test: Small amounts of blood in your urine. Feeling mild burning when you urinate. If these side effects last longer than 24 hours, contact your health care provider. To help with discomfort Drink more fluids than usual to help lessen side effects. Hold a warm, moist washcloth over your urethral opening. Soak in a warm bath for 20 minutes. Use plain water. Do not use soap or bath oils. Getting your study results Your health care provider follows up with you about the results of your study. You may have an appointment where you and your provider go over the results and talk about any treatment you may need. documented in this encounter Progress Notes * Elizabeth Henderson - 10/10/2024 2:30 PM CDT Patient here for Urodynamic Study. Flow study prior to procedure: No Amount of urine drained from bladder prior to study: 2 ml's Catheter: 6 American Position: Sitting Fill rate: 25 ml/min EMG electrodes placed: Yes Abdominal catheter: Rectal Amount of urine drained from bladder post-study: 518 ml's with #14fr catheter Patient tolerated procedure well. documented in this encounter Procedure Notes * Tato Pedroza M.D. - 10/10/2024 2:30 PM CDTAssociated Order(s): URO URODYNAMIC STUDY (WITH FLOW) REASON FOR VISIT: Urodynamics: The patient here for a complex urodynamics via calibrated electronic equipment and a residual urine check by ultrasound. Prior to the study the patient was catheterized for 2 cc. The patient was filled with a standard fill rate of 50 cc/min. EMG pads were present and functioning appropriately. First sensation was recorded at 487 cc and capacity was reached at 500 cc Throughout the study the patient was asked to cough Valsalva. These maneuvers did not provoke any uninhibited detrusor contractions nor stress urine incontinence. There was no evidence of detrusor instability throughout the entire study. At 500 cc infused volume the study was stopped as per protocol the patient is given permission to void. The patient generated a low amplitude poorly sustained detrusor contraction of 35 cm water pressure associated with voiding of only drops. Then the patient developed multiple low amplitude poorlysustained detrusor contractions ranging from 25 cm water pressure to 45 cm water pressure again associated with voiding of only drops. Postvoid residual was recorded at 518 cc INTERPRETATION & IMPRESSION: 1. Mildly delayed first sensation. 2. Normal bladder capacity. 3. Normal bladder compliance to volumes filled 4. No evidence of detrusor instability 5. No evidence of stress incontinence. 6. EMG activity reduced appropriately during the voiding phase and there was no evidence for detrusor-sphincter dyssynergia. 7. During the voiding phase the patient voids with a low amplitude poorly sustained detrusor contractions associated with voiding of only drops with a elevated postvoid residual. 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 It should be noted however prior to the study the patient did have a low postvoid residual. documented in this encounter Plan of Treatment Upcoming Encounters Date Type Department Care Team (Latest Contact Info) Description 10/31/2024 9:15 AM CDT Clinical Communication Virtual Review in [place], [place] [address] [place] [phone] 11/01/2024 9:00 AM CDT Appointment Department of Radiology, [facility], in [place], [place] [address] [place] [address] Canidda Lucero P.A.-C. [address] [place] [phone] Discharge Disposition: Home or Self Care 11/01/2024 9:45 AM CDT Appointment Department of Radiology, [facility], in [place], [place] [address] [place] [address] Candida Lucero P.A.-C. [address] [place] [phone] 11/01/2024 1:00 PM CDT Office Visit Department of Physical Medicine and Rehabilitation in [place], [place] [address] [place] [phone] David Weir D.O. [address] [place] [phone] 11/13/2024 2:30 PM CDT Office Visit Department of Sports Medicine in [place], [place] [address] [place] [phone] Ahsan Talbert M.D., Ph.D. [address] [place] [phone] 12/12/2024 8:00 AM EEO OFFICER Clinical Support [facility] in [place] [phone] [place] [phone] Hamilton Beebe, Ph.D., L.P. [address] [place] [phone] 12/13/2024 8:00 AM EEO OFFICER Clinical Support [facility] in [place] [phone] [place] [phone] Hamilton Beebe, Ph.D., L.P. [address] [place] [phone] 12/14/2024 8:00 AM EEO OFFICER Clinical Support [facility] in [address] [phone] Hamilton Beebe, Ph.D., L.P. [address] [place] [phone] 12/17/2024 8:00 AM EEO OFFICER Clinical Support [facility] in [address] [phone] Hamilton Beebe, Ph.D., L.P. [address] [place] [address] [phone] 12/18/2024 8:00 AM EEO OFFICER Clinical Support [facility] in [address] [phone] Hamilton Beebe, Ph.D., L.P. [address] [place] [phone] 12/19/2024 8:00 AM EEO OFFICER Clinical Support [facility] in [address] [phone] Hamilton Beebe, Ph.D., L.P. [address] [place] [phone] 12/20/2024 8:00 AM EEO OFFICER Clinical [facility] in [address] [phone] Hamilton Beebe, Ph.D., L.P. [address] [place] [phone] 12/21/2024 8:00 AM EEO OFFICER Clinical Support [facility] in [address] [phone] Hamilton Beebe, Ph.D., L.P. [address] [place] [address] [phone] 12/24/2024 8:00 AM EEO OFFICER Clinical Support [facility] in [address] [phone] Hamilton Beebe, Ph.D., L.P. [address] [place] [phone] 12/25/2024 8:00 AM EEO OFFICER Clinical [facility] in [address] [phone] Hamilton Beebe, Ph.D., L.P. [address] [place] [phone] 12/26/2024 8:00 AM EEO OFFICER Clinical [facility] in [address] [phone] Hamilton Beebe, Ph.D., L.P. [address] [place] [phone] 12/27/2024 8:00 AM EEO OFFICER Clinical Support [facility] in [address] [phone] Hamilton Beebe, Ph.D., L.P. [address] [place] [phone] 12/28/2024 8:00 AM EEO OFFICER Clinical Support [facility] in [address] [phone] Hamilton Beebe, Ph.D., L.P. [address] [place] [phone] 12/31/2024 8:00 AM EEO OFFICER Clinical Support [facility] in [place], [place] [address] [place] [phone] Hamilton Beebe, Ph.D., L.P. [address] [place] [phone] 01/01/2025 8:00 AM EEO OFFICER Clinical [facility] in [place], [place] [address] [place] [phone] Hamilton Beebe, Ph.D., L.P. [address] [place] [address] [phone] 01/02/2025 8:00 AM EEO OFFICER Clinical Support [facility] in [address] [phone] Hamilton Beebe, Ph.D., L.P. [address] [place] [phone] 01/07/2025 1:30 PM EEO OFFICER Telemedicine Department of Urology in [place], [place] [address] [place] [phone] Danielle Pitt D.O. [address] [place] [phone] Scheduled Orders Name Type Priority Associated Diagnoses Orde r Schedule Dipstick, POCT, Urine (nursing, interfaced) Point of Care Testing-Docked Device Routine Retention Urinary Ordered: 10/10/2024 documented as of this encounter Procedures Procedure Name Priority Date/Time Associated Diagnosis Comments URO URODYNAMIC STUDY (WITH FLOW) Routine 10/10/2024 2:30 PM CDT Retention Urinary documented in this encounter Results * URO Urodynamic study (with flow) (10/10/2024 2:30 PM CDT) Narrative Tato Pedroza M.D. - 10/10/2024 2:30 PM CDT Tato Pedroza M.D. 10/11/2024 7:37 AM REASON FOR VISIT: Urodynamics: The patient here for a complex urodynamics via calibrated electronic equipment and a residual urine check by ultrasound. Prior to the study the patient was catheterized for 2 cc. The patient was filled with a standard fill rate of 50 cc/min. EMG pads were present and functioning appropriately. First sensation was recorded at 487 cc and capacity was reached at 500 cc Throughout the study the patient was asked to cough Valsalva. These maneuvers did not provoke any uninhibited detrusor contractions nor stress urine incontinence. There was no evidence of detrusor instability throughout the entire study. At 500 cc infused volume the study was stopped as per protocol the patient is given permission to void. The patient generated a low amplitude poorly sustained detrusor contraction of 35 cm water pressure associated with voiding of only drops. Then the patient developed multiple low amplitude poorly sustained detrusor contractions ranging from 25 cm water pressure to 45 cm water pressure again associated with voiding of only drops. Postvoid residual was recorded at 518 cc INTERPRETATION & IMPRESSION: 1. Mildly delayed first sensation. 2. Normal bladder capacity. 3. Normal bladder compliance to volumes filled 4. No evidence of detrusor instability 5. No evidence of stress incontinence. 6. EMG activity reduced appropriately during the voiding phase and there was no evidence for detrusor-sphincter dyssynergia. 7. During the voiding phase the patient voids with a low amplitude poorly sustained detrusor contractions associated with voiding of only drops with a elevated postvoid residual. 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 It should be noted however prior to the study the patient did have a low postvoid residual. us Kate Egan P.A.-C. UROLOGY ORDERABLES Fi nal Result documented in this encounter Visit Diagnoses Diagnosis Retention Urinary- Primary Feeling Of Incomplete Bladder Emptying [R39.14] documented in this encounter Additional Health Concerns Assessment Noted Time PHQ-9 Depression Total Score: 5 07/07/19 24 9:17 PM CDT documented as of this encounter Care Teams Hearing Specialist Relationship Specialty Start Date End Date Elsewhere, Pcp PCP - General Internal Medicine 05/22/18 documented as of this encounter
--- OUTSIDE RECORDS SUMMARY | 2024-10-22 11:30 | XMS_ITS | Encounter Summary ---
Author Organization [facility] Address [address] [place] [address] Care Team Providers Care Software Qa Manager Name Role Phone Elsewhere, Pcp Primary Care Provider Unavailabl e Reason for Referral * Outpatient (Routine) - Authorized Specialty Diagnoses / Procedures Referred By Ye lund Referred To Contact Urology Diagnoses Retention Urinary Kate Egan P.A.-C. [address] [place] [phone] Phone: tel: fax: [facility] Referral ID Status Reason Start Date Expiration Date V isits Requested Visits Authorized [id number] Authorized 10/22/2024 04/23/2026 [address] Pitt Reason for Visit * Outpatient (Routine) - Closed Specialty Diagnoses / Procedures Referred By Ye lund Referred To Contact Urology Kate Egan P.A.-C. [address] [place] [phone] Phone: tel: fax: Kate Egan P.A.-C. [address] [place] [phone] Phone: tel: fax: Referral ID Status Reason Start Date Expiration Date Visits Re quested Visits Authorized [id number] Closed 10/10/2024 04/11/2026 1 1 Encounter Details Date Type Department Care Team (Late st Contact Info) Description 10/22/2024 11:30 AM CDT Telemedicine Department of Urology in [place], [place] [address] [place] [phone] Kate Egan P.A.-C. 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 Some college, no degree 05/24/2020 Sex and Gender Information Value Date Recorded Sex Assigned at Male 10/29/2020 12:38 PM CDT Legal Sex Male 1:45 PM GRAIN THRESHER Gender Identity Male 07/15/2019 8:59 AM CDT Sexual Orientation Straight 07/15/2019 8: 59 AM CDT documented as of this encounter Progress Notes * Kate Egan P.A.-C. - 10/22/2024 11:30 AM CDT SUBJECTIVE CHIEF COMPLAINT/PURPOSE FOR VISIT Follow-up urodynamic study Patient's visit is completed virtually, via video HISTORY OF PRESENT ILLNESS is a pleasant 24 y.o.male who is well known to me. He has history significant for Klinefelter syndrome, Kamari-Danlos syndrome, generalized anxiety disorder and chronic pain. He has history of urinary retention and has been managed with self catheterization. Postvoid residual in August of 2023 was 750 mL. Patient also has history of pelvic floor dysfunction and has worked closely with a pelvic floor physical therapist. He has intermittently requiring indwelling Garza catheter placementas he has a significant orthopedic history requiring multiple surgeries, bracing and casts. Patienthas had challenges with recurrent urinary tract infections as well. He also endorses pain with passage of the catheter. Currently, patient catheterizes 5 times daily. He is unable to void significant amounts on his own unless he is ???extremely full. Patient does have prior history of fecal incontinence, however states that he previously utilize suppositories and now practices timed bowel movements which has helpedto alleviate this. Patient underwent urodynamic study 10/10/2024. Urodynamic tracings were personally reviewed. This demonstrated normal bladder capacity with normal compliance. No evidence of detrusor instability or stress urinary incontinence was identified. When given permission to void, patient generated a low-amp litude, poorly sustained detrusor contraction of 35 cm of water associated with voiding of only small drops. This was followed by multiple low amplitude poorly sustained detrusor contractions rangingfrom 25 cm of water pressure to 45 cm of water pressure again only with voiding drops of urine. Postvoid residual was 518 cc. REVIEW OF SYSTEMS Genitourinary: Positive for difficulty urinating. MEDICAL HISTORY Medical History[1] Surgical History[2] OBJECTIVE ASSESSMENT / PLAN #1 Urinary retention, on clean intermittent catheterizations #2 Poor detrusor contractility #3 Pelvic floor dysfunction #4 Recurrent urinary tract infections #5 Chronic pain #6 Kamari Danlos syndrome #7 Klinefelter syndrome I had the pleasure of meeting with in virtual follow-up today. We reviewed the results of his urodynamic study. Discussed with the patient that there was no abnormality of compliance, however he does have evidence of poor detrusor contractility. He has been performing self catheterization for over 1 year duration and has had significant pain with intermittent catheterization at times. He has also dealt with recurrent urinary tract infections. We again discussed the difference betweenasymptomatic bacteriuria and symptomatic UTI. Encouraged the patient to continue to work with his pelvic floor physical therapist. Did discuss consideration of consultation with Dr. Pitt for discuss ion of possible trial of sacral neuromodulation. Patient does have prior history of fecal incontinence as well. He understands that sacral neuromodulation is not always successful at improving bladder efficiency, however goal would be ability to empty without the need for catheterization. He is quite young and this may be worth a trial. Referral placed for consultation with Dr. Pitt for consideration of sacral neuromodulation. Patient instructed to complete a voiding diary, measuring voided volumes and catheterized residuals prior. All questions addressed, patient expressed understanding. Signed by: Kate Egan P.A.-C. 10/22/2024 12:58 PM CDT [1] Past Medical History: Diagnosis [...] CDT Clinical Communication Virtual Review in [place], [place] 200 [place] [address] 11/01/2024 9:00 AM CDT Appointment Department of Radiology, [place], [place] [address] [place] [phone] Candida Lucero P.A.-CMackenzie [address] [place] [phone] Discharge Disposition: Home or Self Care 11/01/2024 9:45 AM CDT Appointment Department of Radiology, [facility], [place], [place] [address] [place] [phone] Candida Lucero P.A.-C. [address] [place] [phone] 11/01/2024 1:00 PM CDT Office Visit Department of Physical Medicine and Rehabilitation in [place], [place] [address] [place] [phone] David Weir D.O. [address] [place] [phone] 11/13/2024 2:30 PM CDT Office Visit Department of Sports Medicine in [place], [place] [address] [place] [phone] Ahsan Talbert M.D., Ph.D. [address] [place] [phone] 12/12/2024 8:00 AM GRAIN THRESHER [facility] in [address] [phone] Hamilton Beebe, Ph.D., L.P. [address] [place] [phone] 12/13/2024 8:00 AM GRAIN THRESHER Clinical [facility] in [address] [phone] Hamilton Beebe, Ph.D., L.P. [address] [place] [phone] 12/14/2024 8:00 AM GRAIN THRESHER Clinical [facility] in [address] [phone] Hamilton Beebe, Ph.D., L.P. [address] [place] [phone] 12/17/2024 8:00 AM GRAIN THRESHER Clinical [facility] in [address] [phone] Hamilton Beebe, Ph.D., L.P. [address] [place] [phone] 12/18/2024 8:00 AM GRAIN THRESHER Clinical [facility] in [address] [phone] Hamilton Beebe, Ph.D., L.P. [address] [place] [address] [phone] 12/19/2024 8:00 AM GRAIN THRESHER Clinical [facility] in [address] [phone] Hamilton Beebe, Ph.D., L.P. [address] [place] [phone] 12/20/2024 8:00 AM GRAIN THRESHER Clinical [facility] in [address] [phone] Hamilton Beebe, Ph.D., L.P. [address] [place] [address] [phone] 12/21/2024 8:00 AM GRAIN THRESHER Clinical [facility] in [address] [phone] Hamilton Beebe, Ph.D., L.P. [address] [place] [phone] 12/24/2024 8:00 AM GRAIN THRESHER Clinical [facility] in [address] [phone] Hamilton Beebe, Ph.D., L.P. [address] [place] [phone] 12/25/2024 8:00 AM GRAIN THRESHER Clinical [facility] in [address] [phone] Hamilton Beebe, Ph.D., L.P. [address] [place] [phone] 12/26/2024 8:00 AM GRAIN THRESHER Clinical [facility] in [address] [phone] Hamilton Beebe, Ph.D., L.P. [address] [place] [phone] 12/27/2024 8:00 AM GRAIN THRESHER Clinical [facility] in [address] [phone] Hamilton Beebe, Ph.D., L.P. [address] [place] [phone] 12/28/2024 8:00 AM GRAIN THRESHER Clinical [facility] in [address] [phone] Hamilton Beebe, Ph.D., L.P. [address] [place] [phone] 12/31/2024 8:00 AM GRAIN THRESHER Clinical [facility] in [address] [phone] Hamilton Beebe, Ph.D., L.P. [address] [place] [phone] 01/01/2025 8:00 AM GRAIN THRESHER Clinical [facility] in [place], [place] [address] [place] [address] [phone] Hamilton Beebe, Ph.D., L.P. [address] [place] [phone] 01/02/2025 8:00 AM GRAIN THRESHER Clinical [facility] in [place], [place] [address] [place] [phone] Hamilton Beebe, Ph.D., L.P. [address] [place] [phone] 01/07/2025 1:30 PM GRAIN THRESHER Telemedicine Department of Urology in [place], [place] [address] [place] [phone] Danielle Pitt D.O. [address] [place] [phone] Scheduled Referrals Name Type Priority Associated Diagnoses Orde r Schedule Urology - General - urinary retention consult (clinic) Outpatient Referral Routine Retention Urinary Expected: 10/22/2024, Expires: 01/21/2026 documented as of this encounter Visit Diagnoses Diagnosis Retention Urinary- Primary Dysfunction Detrusor Dysfunction Pelvic Floor Male documented in this encounter Additional Health Concerns Assessment Noted Time PHQ-9 Depression Total Score: 5 07/07/19 24 9:17 PM CDT documented as of this encounter Care Teams Software Qa Manager Relationship Specialty Start Date End Date Elsewhere, Pcp PCP - General Internal Medicine 05/22/18 documented as of this encounter
--- OUTSIDE RECORDS SUMMARY | 2024-10-26 01:23 | XMS_ITS | Encounter Summary ---
Author Organization [facility] Address [address], [place] [address] Care Team Providers Care Diamond Setter Apprentice Name Role Phone Eliana Guerra MD Primary Care Provider [phone] Reason for Visit * Reason Comments APPOINTMENT REQUEST Encounter Details Date Type Department Care Team ([facility] st Contact Info) Description 09/13/2024 Telephone Orthopedics at [address] [address] Anahi Van MD [address] [place] [address] APPOINTMENT REQUEST Social History Tobacco Use Types Packs/Day Years Used Date Smoking Tobacco: Never Smokeless Tobacco: Never Alcohol Use Standard Drinks/Week Comments Yes 0 (1 standard drink = 0.6 oz pur e alcohol) occasional [facility] Utilities Answer Date Recorded In the past 12 months has [facility] [employer], gas, oil, or water [employer] threatened to shut off services in your [...] in the past 12 m [facility], were you homeless or living in a penitentiary (including now)? No 07/04/2024 Sex and Gender Information Value Date Recorded Sex Assigned at Not on file Legal Sex Male 5:33 PM PATIENT SITTER Gender Identity Not on file Sexual Orientation Not on file documented as of this encounter Nursing Notes * Juan Pablo White C - 09/13/2024 11:00 AM CDT GENERAL QUESTIONS How may we help you today? Patient states he thought he scheduled his follow up with Dr. Van from his last visit however there is no appointment scheduled. Per 08/15/24 AVS, patient is to follow up in 2 months of that visit. does not have any availability until 11/08/24. Please adviseif patient can be seen sooner then 11/08/24. Please advise. Describe your symptoms/concerns: See above When did the issue start: NA Have you been seen for this recently?: Yes: Date: 08/15/24 Provider: Rehan Repair dislocation peroneal tendons with fibular groove deepening and longus to brevis tenodesis, lengthening gastrocnemius, excision exostosis Right ankle 04/27/2024 If we are unable to reach you can we leave a detailed message on your voicemail? Yes If we are unable to reach you can we send you a message in Exenthart? Yes [Returns Supervisor/Second Language Tutor: Relay to patient; We make every effort to get back to you sameday, however it may take 1-2 business days depending on the nature of the communication.] Juan Pablo White 09/13/2024, 11:03 AM documented in this encounter Plan of Treatment Upcoming Encounters Date Type Department Care Team (Late st Contact Info) Description 11/06/2024 3:00 PM CDT Appointment Orthopedics at [address] [address] Anahi Van MD [address] [place] [address] documented as of this encounter Visit Diagnoses Not on filedocumented in this encounter Care Teams Diamond Setter Apprentice Relationship Specialty Start Date End Date Eliana Guerra MD [address] [place] [address] PCP - General Family Practice 12/04/19 documented as of this encounter
--- OUTSIDE RECORDS SUMMARY | 2024-10-26 01:23 | XMS_ITS | Encounter Summary ---
Author Organization [facility] Address [address] [place] [address] Care Team Providers Care Wholesale Buyer Name Role Phone Eliana Guerra MD Primary Care Provider [phone] Encounter Details Date Type Department Care Team (Late st Contact Info) Description 10/11/2024 Notes/Orders [facility] at [address] [place] [phone] Nilay Ceron MD [address] [facility] [place] [address] Social History Tobacco Use Types Packs/Day Years Used Date Smoking Tobacco: Never Smokeless Tobacco: Never Alcohol Use Standard Drinks/Week Comments Yes 0 (1 standard drink = 0.6 oz pur e alcohol) occasional [facility] Utilities Answer Date Recorded In the past [address] [facility] [employer], gas, oil, or water [employer] threatened to shut off services in your [...] were you homeless or living in a half-way (including now)? No 07/04/2024 Sex and Gender Information Value Date Recorded Sex Assigned at Not on file Legal Sex Male 5:33 PM SECURITY ADMINISTRATOR Gender Identity Not on file Sexual Orientation Not on file documented as of this encounter Progress Notes * Addy Saxena - 10/11/2024 1:57 PM CDT Encounter created in error. Addy Saxena 10/11/2024 2:01 PM documented in this encounter Plan of Treatment Upcoming Encounters Date Type Department Care Team (Late st Contact Info) Description 11/06/2024 3:00 PM CDT Appointment Orthopedics at [address] [place] [address] Anahi Van MD [address] [place] [address] documented as of this encounter Visit Diagnoses Not on filedocumented in this encounter Care Teams Wholesale Buyer Relationship Specialty Start Date End Date Eliana Guerra MD [address] [place] [address] PCP - General Family Practice 12/04/19 documented as of this encounter
--- OUTSIDE RECORDS SUMMARY | 2024-10-26 01:23 | XMS_ITS | Clinical Summary ---
Author Organization [facility] Address [address] [place] [address]. [place] [address] Care Team Providers Care Cloth Tester Quality Name Role Phone Kei Eugene MD Unavailable [phone] Eliana Guerra MD Primary Care Provider [phone] Eliana Guerra MD Unavailable [phone] Eliana Guerra MD Unavailable [phone] Unavailable Unavailable Jody Obregon APRN EYELET OPERATOR Unavailable [phone] Efrain Crow PA-C Unavailable [phone] Allergies No known active allergies Medications famotidine [...] 70ml/hr Water flush: 120ml q 3 hours 48859 mL 11 06/18/2024 1:08 PM CDT 5 Active Active Problems Problem Noted Date Diagnosed Date Nausea 03/02/2024 Epigastric abdominal pain 03/02/2024 Weight loss 03/02/2024 Encounters Date Type Department Care Team Description 09/27/2024 Home Infusion [facility] [address] [place] [phone] Francine Duval LPN 08/17/2024 Home Infusion [facility] [address] [place] [phone] Francine Duval LPN from Last 3 Months [...] in an abandoned building, in an overnight correction, or couch-surfing.) Yes 03/03/2024 Are you worried [...] on file Legal Sex Male 9:18 AM FOOD STOREROOM CLERK Gender Identity Not on file Sexual Orientation Not on file Last Filed Vital Signs Vital Sign Reading Time Taken Comments Blood Pressure 118/68 03/24/2024 3:42 PM FOOD STOREROOM CLERK Pulse 82 03/24/2024 3:42 PM FOOD STOREROOM CLERK Temperature 36.6 C (97.8 F) 03/24/2024 3:42 PM FOOD STOREROOM CLERK Respiratory Rate 16 03/24/2024 3:42 PM FOOD STOREROOM CLERK Oxygen Saturation 99% 03/24/2024 3:42 PM FOOD STOREROOM CLERK Inhaled Oxygen Concentration - - Weight 65.7 kg (144 lb 14.4 oz) 025 10:51 AM FOOD STOREROOM CLERK Height 188 cm (6' 2.02) 03/15/2024 10: 55 AM FOOD STOREROOM CLERK Body Mass Index 18.6 03/15/2024 10:55 AM FOOD STOREROOM CLERK Plan of Treatment Scheduled Procedures Name Priority Associated Diagnoses Date/Ti me SURGICAL EXTRACTION, TOOTH Chronic pericoronitis Health Maintenance Due Date Last Done Comments ADVANCE CARE PLANNING 2000 ANNUAL REVIEW OF HM ORDERS 2000 YEARLY PREVENTIVE VISIT 11/20/2023 11/20/19 23, 03/13/2021, 03/07/2020 INFLUENZA VACCINE (#1) 2024 , [...] Procedure Name Priority Date/Time Associated Diagnosis Comments MICROBIOLOGY ISOLATE REFERRAL Routine 09/22/2024 11:21 AM CDT from Last 3 Months Results * (ABNORMAL) Microbiology Isolate Referral (09/22/2024 11:21 AM CDT) Culture Acinetobacter junii(A) JENNIE 09/25/2024 12:03 PM CDT [facility] Comment:Organism identified by client. Urine URINE SPECIMEN FROM URINARY CONDUIT / Unknown Non-blood Collection / Unknown 09/22/2024 11:21 AM CDT 09/23/2024 4:21 PM CDT Narrative Organism Antibiotic Method Susceptibility Acinetobacter junii Cefepime JENNIE 4 ug/mL: Susceptible Acinetobacter junii Ceftazidime JENNIE 8 ug/mL: Susceptible Acinetobacter junii Ceftriaxone JENNIE 4 ug/mL: Susceptible Acinetobacter junii Ciprofloxacin JENNIE <=0.25 ug/mL: Susceptible Acinetobacter junii Levofloxacin JENNIE <=0.5 ug/mL: Susceptible Acinetobacter junii Gentamicin JENNIE <=2 ug/mL: Susceptible Acinetobacter junii Tobramycin JENNIE <=2 ug/mL: Susceptible Acinetobacter junii Piperacillin/Tazobactam JENNIE 16 ug/mL: Susceptible Acinetobacter junii Trimethoprim/Sulfame thoxaz ole JENNIE <=2/38 ug/mL: Susceptible Acinetobacter junii Ampicillin/ Sulbactam JENNIE <=4 ug/mL: Susceptible Comment:Antibiotics listed a s No Interpretation have no regulatory guidelines for susceptibility/resistance available. Kristi Ospina PA-C LAB - MICRO GENERAL ORDERA BLES Final Result [facility] Inf. Diseases Diag. Lab [address] [facility] [place] [address], [facility] from Last 3 Months Insurance [employer] [facility] Advance Directives For more information, please contact: [phone] * Full Code (Latest Code Status on File) Date Activated Date Inactivated Comments 03/03/2024 12:32 AM 03/14/2024 4:32 PM All basic an d advanced life-sustaining interventions are performed as appropriate Question Answer Comments Code status determined by: Discussion with patie nt/ legal decision maker Care Teams Cloth Tester Quality Relationship Specialty Start Date End Date Eliana Guerra MD [address] [place] [address] PCP - General Family Medicine 03/04/24 Kei Eugene MD [address] [place] [address] Assigned Musculoskeletal Provider 03/01/24 Eliana Guerra MD [facility] [address] [place] [address] Home Infusion Following Provider Family Medicine 03/11/24 Eliana Guerra MD [facility] [address] [place] [address] Home Infusion Following Provider Family Medicine 03/14/[address] [facility] Registered Dietitian Dietitian 03/14/24 Jody Obregon APRN EYELET OPERATOR Home Infusion Following Provider 03/14/24 Efrain Crow PA-C [facility] [address] [address] Home Infusion Following Provider Gastroenterology 06/25/24
--- OUTSIDE RECORDS SUMMARY | 2024-10-26 01:23 | XMS_ITS | Encounter Summary ---
Author Organization [facility] Address [address] [address] Care Team Providers Care Nurse Infection Control Name Role Phone Eliana Guerra MD Primary Care Provider [phone] Reason for Visit * Reason Comments APPOINTMENT REQUEST Encounter Details Date Type Department Care Team ([facility] st Contact Info) Description 10/10/2024 Telephone Orthopedics at [address] [address] Anahi Van MD [address] [place] [address] APPOINTMENT REQUEST Social History Tobacco Use Types Packs/Day Years Used Date Smoking Tobacco: Never Smokeless Tobacco: Never Alcohol Use Standard Drinks/Week Comments Yes 0 (1 standard drink = 0.6 oz pur e alcohol) occasional [facility] Utilities Answer Date Recorded In the past 12 months has [facility] [employer], gas, oil, or water [employer] threatened to shut off services in your [...] time in the past 12 m [facility], were you homeless or living in a detention (including now)? No 07/04/2024 Sex and Gender Information Value Date Recorded Sex Assigned at Not on file Legal Sex Male 5:33 PM MANAGER REIMBURSEMENT Gender Identity Not on file Sexual Orientation Not on file documented as of this encounter Nursing Notes * Laurence Castro - 10/11/2024 4:20 PM CDT LMTCB to schedule to 11/06 when patients mother has appointment, okay per Dr. Van. * Joel White - 10/10/2024 11:03 AM CDT Patient is wondering if it would be ok for him to reschedule his 09/08 follow up appointment to an open consult slot on 11/06. He states his mom also has an appointment with Dr. Van on 11/06 and because they live so far away they don't want to make multiple trips during the week. Please advise if it would be ok to r/s appointment per patient request. Joel White 10/10/2024, 11:06 AM documented in this encounter Plan of Treatment Upcoming Encounters Date Type Department Care Team (Late st Contact Info) Description 11/06/2024 3:00 PM CDT Appointment Orthopedics at [address] [place] [address] Anahi Van MD [address] [place] [address] documented as of this encounter Visit Diagnoses Not on filedocumented in this encounter Care Teams Nurse Infection Control Relationship Specialty Start Date End Date Eliana Guerra MD [address] [place] [address] PCP - General Family Practice 12/04/19 documented as of this encounter
--- OUTSIDE RECORDS SUMMARY | 2024-10-26 01:23 | XMS_ITS | Encounter Summary ---
Author Organization [facility] Address [address] [place] [address]. [place] [address] Care Team Providers Care Traffic Control Technician Name Role Phone Kei Eugene MD Unavailable [phone] Eliana Guerra MD Primary Care Provider [phone] Eliana Guerra MD Unavailable [phone] Eliana Guerra MD Unavailable [phone] Unavailable Unavailable Jody Obregon APRN EMPLOYMENT AND CLAIMS AIDE Unavailable [phone] Efrain Crow PA-C Unavailable [phone] Encounter Details Date Type Department Care Team (Late st Contact Info) Description 08/17/2024 Home Infusion [facility] [address] [place] [phone] Francine Duval LPN Social History Tobacco [...] in an abandoned building, in an overnight jail, or couch-surfing.) Yes 03/03/2024 Are you worried [...] on file Legal Sex Male 9: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 MIXER Gender Identity Not on file Sexual Orientation Not on file documented as of this encounter Plan of Treatment Scheduled Procedures Name Priority Associated Diagnoses Date/Ti me SURGICAL EXTRACTION, TOOTH Chronic pericoronitis documented as of this encounter Visit Diagnoses Not on filedocumented in this encounter Care Teams Traffic Control Technician Relationship Specialty Start Date End Date Eliana Guerra MD [facility] [place] [address] PCP - General Family Medicine 03/04/24 Kei Eugene MD [address] [place], [place] [address] Assigned Musculoskeletal Provider 03/01/24 Eliana Guerra MD [address] [address] Home Infusion Following Provider Family Medicine 03/11/24 Eliana Guerra MD [facility] [address] [place] [address] Home Infusion Following Provider Family Medicine 03/14/[address] [facility] Registered Dietitian Dietitian 03/14/24 Jody Obregon APRN EMPLOYMENT AND CLAIMS AIDE Home Infusion Following Provider 03/14/24 Efrain Crow PA-C [facility] [address] [address] Home Infusion Following Provider Gastroenterology 06/25/24 documented as of this encounter
--- OUTSIDE RECORDS SUMMARY | 2024-10-26 01:23 | XMS_ITS | Encounter Summary ---
Author Organization [facility] Address [address], [place] [address] Care Team Providers Care Fixture Designer Name Role Phone Eliana Guerra MD Primary Care Provider [phone] Encounter Details Date Type Department Care Team (Late st Contact Info) Description 10/03/2024 Notes/Orders [facility] [address] [place] [address] Charles Martinez MD [address] [place] [address] Routine general medical examination at health care facility Social History Tobacco Use Types Packs/Day Years Used Date Smoking Tobacco: Never Smokeless Tobacco: Never Alcohol Use Standard Drinks/Week Comments Yes 0 (1 standard drink = 0.6 oz pur e alcohol) occasional [facility] Utilities Answer Date Recorded In the past 12 months has [facility] [address], gas, oil, or water [employer] threatened to shut off services in your [...] on file Legal Sex Male 5:33 PM PROJECT MANAGER RETAIL Gender Identity Not on file Sexual Orientation Not on file documented as of this encounter Plan of Treatment Upcoming Encounters Date Type Department Care Team (Late st Contact Info) Description 11/06/2024 3:00 PM CDT Appointment Orthopedics at [address] [place] [address] Anahi Van MD [address] [place] [address] Pending Results Name Type Priority Associated Diagnoses Date /Time DNA Analysis Discrete Sequence Variation Panel (Saliva) (Patient Collected) Lab Routine Routine general medical examination at health care facility 10/03/2024 6:20 AM CDT documented as of this encounter Visit Diagnoses Diagnosis Routine general medical examination at health care facility Routine general medical examination at a [facility] care facility documented in this encounter Care Teams Fixture Designer Relationship Specialty Start Date End Date Eliana Guerra MD [address] [place] [address] PCP - General Family Practice 12/04/19 documented as of this encounter
--- OUTSIDE RECORDS SUMMARY | 2024-10-26 01:23 | XMS_ITS | Clinical Summary ---
Author Organization [facility] Address [address] [place] [address] Care Team Providers Care Restaurant Busser Name Role Phone Elsewhere, Pcp Primary Care Provider Unavailabl e Source Comments Patient records contain information from all sites at [facility]. For routine questions regarding patient records, call [phone] during business hours, M-F 8:00 AM - 5:00 PM Central Time. Record requests for emergency care only can be directed to [phone] at any time.[facility] Allergies Active Allergy Reactions Criticality Noted Date Comments Dog Dander Itching 08/01/2024 House Dust Itching 08/01/2024 Medications * This document contains information received [...] (two) times a day. With meals Active cyclobenzaprine (FlexeriL) 5 mg tablet Take [...] a day as needed. 04/28/19 25 Active polyethylene glycol (Miralax) 17 gram powder packet Take 17 g by mouth daily as needed. 03/14/19 25 Active promethazine (Phenergan) 12.5 mg tablet Take 12.5 mg by mouth. 05/16/19 25 Active triamcinolone (Kenalog) 0.1 % cream Apply 1 Application topically as needed for rash. 06/06/19 25 Active bisacodyL (Dulcolax) 10 mg suppository Insert 10 mg into the rectum daily as needed. 07/14/19 25 Active famotidine (Pepcid) 40 mg tablet Take 20 mg by mouth 2 (two) times a day. 07/18/19 25 Active gabapentin (Neurontin) 300 mg capsule Take 900 mg by mouth 3 (three) times a day. 07/14/19 25 026 Active ibuprofen 400 mg tablet Take 400 mg by mouth every 6 (six) hours as needed. 07/05/19 25 Active loratadine (Claritin) 10 mg tablet Take 10 mg by mouth daily. 07/05/19 25 Active LORazepam (Ativan) 0.5 mg tablet Take 0.5 mg by mouth at bedtime as needed. 08/28/19 25 Active mirtazapine (Remeron) 15 mg tablet Take 15 mg by mouth at bedtime. 08/28/19 25 Active omeprazole (PriLOSEC) [address] capsule TAKE 1 CAPSULE(40 MG) BY MOUTH DAILY BEFORE A MEAL 07/18/19 25 Active phenazopyridine (Pyridium) 200 mg tablet 08/27/19 25 Active tiZANidine (Zanaflex) 2 mg capsule Take 2 mg by mouth every 8 (eight) hours as needed. 08/28/19 25 Active traZODone (DesyreL) 50 mg tablet Take 50 mg by mouth at bedtime. Active acetaminophen (TylenoL) 325 mg tablet Take 650 mg by mouth every 6 (six) hours as needed. 07/05/19 25 Active metoclopramide (Reglan) 5 mg tablet Take 5 mg by mouth 3 (three) times a day before meals. 03/01/19 Active oxyBUTYnin (Ditropan-XL) 10 mg 24 hr tablet Take 10 mg by mouth daily. 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 Date Type Department Care Team Description 10/24/2024 Orders Only Department of Orthopedic Surgery in [place], [place] [address] [place] [address] Candida Lucero P.A.-C. Pain Hip Right (Primary Dx) 10/23/2024 Orders Only Department of Orthopedic Surgery in [place], [place] [address] [place] [phone] Candida Lucero P.A.-C. Pain Hip Right (Primary Dx) 10/22/2024 11:30 AM CDT Telemedicine Department of Urology in [place], [place] [address] [place] [phone] Kate Egan P.A.-C. Retention Urinary (Primary Dx); Dysfunction Detrusor; Dysfunction Pelvic Floor Male 10/10/2024 2:30 PM CDT Procedure visit Department of Urology in [place], [place] [address] [place] [phone] Kate Egan P.A.-C. Elliott, Daniel S, M.D. Retention Urinary (Primary Dx); Feeling Of Incomplete Bladder Emptying [R39.14] 10/10/2024 Orders Only Department of Urology in [place], [place] [address] [place] [phone] Kate Egan P.A.-C. 10/03/2024 Clinical Communication Department of Urology in [address] [phone] Kate Egan P.A.-C. Phone Call Requested 09/18/2024 8:45 AM CDT Office Visit Department of Orthopedic Surgery in [place], [place] [address] [place] [phone] Jose Crawford M.D. Pain Wrist Left (Primary Dx) 09/18/2024 Orders Only Department of Orthopedic Surgery in [address] [phone] Mike Salomon Jr., P.A.-C. Hypermobility Joint (Primary Dx); Pain Wrist Left; Pain Hip Right 09/17/2024 3:30 PM CDT Telemedicine Department of Urology in [place], [place] [address] [place] [phone] Kate Egan P.A.-C. 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 Some college, no degree 05/24/2020 Sex and Gender Information Value Date Recorded Sex Assigned at Male 10/29/2020 12:38 PM CDT Legal Sex Male 1:45 PM PHYSICIAN SURGEON Gender Identity Male 07/15/2019 8:59 AM CDT [...] AM CDT Clinical Communication Virtual Review in [place], [place] [address] [place] [address] 11/01/2024 9:00 AM CDT Appointment Department of Radiology, [facility], in [place], [place] [address] [place] [phone] Candida Lucero, PMackenzieAMackenzie-C. [address] [place] [phone] Discharge Disposition: Home or Self Care 11/01/2024 9:45 AM CDT Appointment Department of Radiology, [facility], in [place], [place] [address] [place] [address] Potts BaltazarCandida escalante P.A.-C. [address] [place] [phone] 11/01/2024 1:00 PM CDT Office Visit Department of Physical Medicine and Rehabilitation in [place], [place] [address] [place] [phone] David Weir D.O. [address] [place] [phone] 11/13/2024 2:30 PM CDT Office Visit Department of Sports Medicine in [place], [place] [address] [place] [phone] Ahsan Talbert M.D., Ph.D. [address] [place] [phone] 12/12/2024 8:00 AM PHYSICIAN SURGEON Clinical Support [facility] in [address] [phone] Hamilton Beebe, Ph.D., L.P. [address] [place] [phone] 12/13/2024 8:00 AM PHYSICIAN SURGEON Clinical Support [facility] in [address] [phone] Hamilton Beebe, Ph.D., L.P. [address] [place] [phone] 12/14/2024 8:00 AM PHYSICIAN SURGEON Clinical Support [facility] in [address] [phone] Hamilton Beebe, Ph.D., L.P. [address] [place] [phone] 12/17/2024 8:00 AM PHYSICIAN SURGEON Clinical Support [facility] in [address] [phone] Hamilton Beebe, Ph.D., L.P. [address] [place] [phone] 12/18/2024 8:00 AM PHYSICIAN SURGEON Clinical Support [facility] in [address] [phone] Hamilton Beebe, Ph.D., L.P. [address] [place] [phone] 12/19/2024 8:00 AM PHYSICIAN SURGEON Clinical Support [facility] in [address] [phone] Hamilton Beebe, Ph.D., L.P. [address] [place] [phone] 12/20/2024 8:00 AM PHYSICIAN SURGEON Clinical Support [facility] in [address] [phone] Hamilton Beebe, Ph.D., L.P. [address] [place] [phone] 12/21/2024 8:00 AM PHYSICIAN SURGEON Clinical Support [facility] in [address] [phone] Hamilton Beebe, Ph.D., L.P. [address] [place] [address] [phone] 12/24/2024 8:00 AM PHYSICIAN SURGEON Clinical Support [facility] in [address] [phone] Hamilton Beebe, Ph.D., L.P. [address] [place] [phone] 12/25/2024 8:00 AM PHYSICIAN SURGEON Clinical Support [facility] in [address] [phone] Hamilton Beebe, Ph.D., L.P. [address] [place] [address] [phone] 12/26/2024 8:00 AM PHYSICIAN SURGEON Clinical Support [facility] in [address] [phone] Hamilton Beebe, Ph.D., L.P. [address] [place] [phone] 12/27/2024 8:00 AM PHYSICIAN SURGEON Clinical Support [facility] in [address] [phone] Hamilton Beebe, Ph.D., L.P. [address] [place] [phone] 12/28/2024 8:00 AM PHYSICIAN SURGEON Clinical Support [facility] in [address] [phone] Hamilton Beebe, Ph.D., L.P. [address] [place] [phone] 12/31/2024 8:00 AM PHYSICIAN SURGEON Clinical Support [facility] in [address] [phone] Hamilton Beebe, Ph.D., L.P. [address] [place] [phone] 01/01/2025 8:00 AM PHYSICIAN SURGEON Clinical Support [facility] in [place], [place] [address] [place] [phone] Hamilton Beebe, Ph.D., L.P. [address] [place] [phone] 01/02/2025 8:00 AM PHYSICIAN SURGEON Clinical Support [facility] in [place], [place] [address] [place] [phone] Hamilton Beebe, Ph.D., L.P. [address] [place] [phone] 01/07/2025 1:30 PM PHYSICIAN SURGEON Telemedicine Department of Urology in [place], [place] [address] [place] [phone] Danielle Pitt D.O. [address] [place] [phone] Health Maintenance Due Date Last Done Comments [...] history exists Medical Devices Implanted Type Area Private Detective Device Identifier Shelf Expiration Date Model / Serial / Lot Hardware E.G. Pins/Screws/R ods Hardware e.g. pins/screws/ rods Chest Wall [place] [address] [employer] Hip Mini 2.4x8.9 - [id number] Implanted:Qty : 1 on 02/13/2020 by Zoltan Haines M.D. at [facility] Hardware e.g. pins/screws/ rods Right: Hip Arthrex [id number] 11/06/2024 AR-2924PH S / / [id number] [address] [address] P[place] Hip Mini 2.4x8.9 - [id number] Implanted:Qty : 2 on 02/13/2020 by Zoltan Haines M.D. at [facility] Hardware e.g. pins/screws/ rods Right: Hip Arthrex [id number] 10/07/2024 AR-2924PH S / / [id number] [address] [address] P[place] Hip Mini 2.4x8.9 - [id number] Implanted:Qty : 1 on 02/13/2020 by Zoltan Hianes M.D. at [facility] Hardware e.g. pins/screws/ rods Right: Hip Arthrex [id number] 07/07/2024 AR-2924PH S / / [id number] Kt Fix Intbrc Hnd Wrst - [id number] Implanted:Qty : 1 on 02/02/2021 by Jose Crawford M.D. at [facility] Hardware e.g. pins/screws/ rods Left: Wrist Arthrex [id number] 09/06/2025 AR-8978-[id number] P / / [id number] Procedures Procedure Name Priority Date/Time Associated Diagnosis Comments URO URODYNAMIC STUDY (WITH FLOW) Routine 10/10/2024 2:30 PM CDT Retention Urinary from Last 3 Months Results * URO Urodynamic study (with flow) [...] patient did have a low postvoid residual. Kate Egan P.A.-C. UROLOGY ORDERABLES Fi nal Result from Last [address] [facility] Care Teams Restaurant Busser Relationship Specialty Start Date End Date Elsewhere, Pcp PCP - General Internal Medicine 05/22/18
--- OUTSIDE RECORDS SUMMARY | 2024-10-26 01:23 | XMS_ITS | Encounter Summary ---
Author Organization [facility] Address [address] [place] [address]. [place] [address] Care Team Providers Care Hoop Cutter Name Role Phone Kei Eugene MD Unavailable [phone] Eliana Guerra MD Primary Care Provider [phone] Eliana Guerra MD Unavailable [phone] Eliana Guerra MD Unavailable [phone] Unavailable Unavailable Jody Obregon APRN CYTOGENETIC TECHNOLOGIST Unavailable [phone] Efrain Crow PA-C Unavailable [phone] Regina Monroy RN Unavailable Unavailabl e Encounter Details Date Type Department Care Team (Late st Contact Info) Description 06/25/2024 Home Infusion [facility] [address] [place] [phone] Anastacia Rodriguez, JESUS ALBERTO Social History [...] in an abandoned building, in an overnight fdc, or couch-surfing.) Yes 03/03/2024 Are you worried [...] on file 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 Gender Identity Not on file Sexual Orientation Not on file documented as of this encounter Miscellaneous Notes * Addendum Note - Hesham Macedo CNMT - 06/25/2024 2:14 PM CDTAddended by: HESHAM MACEDO on: 09/27/2024 12:02 PM Modules accepted: Orders documented in this encounter Plan of Treatment Scheduled Procedures Name Priority Associated Diagnoses Date/Ti me SURGICAL EXTRACTION, TOOTH Chronic pericoronitis documented as of this encounter Visit Diagnoses Not on filedocumented in this encounter Care Teams Hoop Cutter Relationship Specialty Start Date End Date Eliana Guerra MD [address] [facility] [address] [place] [address] PCP - General Family Medicine 03/04/24 Kei Eugene MD [address] [place] [address] Assigned Musculoskeletal Provider 03/01/24 Eliana Guerra MD [facility] [address] [place] [address] Home Infusion Following Provider Family Medicine 03/11/24 Eliana Guerra MD [facility] [address] [place] [address] Home Infusion Following Provider Family Medicine 03/14/[address] [facility] Registered Dietitian Dietitian 03/14/24 Jody Obregon APRN CYTOGENETIC TECHNOLOGIST Home Infusion Following Provider 03/14/24 Efrain Crow PA-C [facility] [address] [facility] [address] [place], [place] [phone] Home Infusion Following Provider Gastroenterology 06/25/24 Regina Monroy, KASIE [facility] [address] [facility] [address] [place] [address] [facility] Resource Team 07/16/24 07/17/24 documented as of this encounter
--- OUTSIDE RECORDS SUMMARY | 2024-10-26 01:24 | XMS_ITS | Encounter Summary ---
Author Organization [facility] Address [address] [place] [address]. [place] [address] Care Team Providers Care Network Technical Analyst Name Role Phone Kei Eugene MD Unavailable [phone] Eliana Guerra MD Primary Care Provider [phone] Eliana Guerra MD Unavailable [phone] Eliana Guerra MD Unavailable [phone] Unavailable Unavailable Jody Obregon APRN OIL PAINT SHADER Unavailable [phone] Jody Obregon APRN OIL PAINT SHADER Unavailable [phone] Efrain Crow PA-C Unavailable [phone] Regina Monroy RN Unavailable Unavailabl e Encounter Details Date Type Department Care Team (Late st Contact Info) Description 04/03/2024 Home Infusion [facility] [address] [place] [phone] Social History Tobacco [...] on file 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 Gender Identity Not on file Sexual Orientation Not on file documented as of this encounter Plan of Treatment Scheduled Procedures Name Priority Associated Diagnoses Date/Ti me SURGICAL EXTRACTION, TOOTH Chronic pericoronitis documented as of this encounter Visit Diagnoses Not on filedocumented in this encounter Care Teams Network Technical Analyst Relationship Specialty Start Date End Date Eliana Guerra MD [address] [place] [address] PCP - General Family Medicine 03/04/24 Kei Eugene MD [address] [place] [address] Assigned Musculoskeletal Provider 03/01/24 Eliana Guerra MD [facility] [address] [facility] [place] [address] Home Infusion Following Provider Family Medicine 03/11/24 Eliana Guerra MD [facility] [address] [place] [facility] [address] Home [facility]fusion Following Provider Family Medicine 03/14/[address] [facility] Registered Dietitian Dietitian 03/14/24 Jody Obregon APRN OIL PAINT SHADER [facility] [address] [place] [address] Home Infusion Following Provider 03/20/24 04/04/24 Jody Obregon APRN OIL PAINT SHADER [facility] [address] [place] [address] Home Infusion Following Provider 03/14/24 Efrain Crow PA-C [facility] [address] [place] [address] [place] [address] Home Infusion Following Provider Gastroenterology 06/25/24 Regina Monroy RN [facility] [address] [place] [address] [place] [address] [facility] Resource Team 07/16/24 07/17/24 documented as of this encounter
--- OUTSIDE RECORDS SUMMARY | 2024-10-26 01:24 | XMS_ITS | Encounter Summary ---
Author Organization [facility] Address [address] [place] [address] Care Team Providers Care Chrome Cleaner Name Role Phone Eliana Guerra MD Primary Care Provider [phone] Reason for Visit * Reason Comments Reschedule Appointment Encounter Details Date Type Department Care Team (Late st Contact Info) Description 06/06/2024 Telephone Orthopedics at [address] [address] Nilay Ceron MD [address] [facility] [address] [place] [address] Reschedule Appointment Social History Tobacco Use Types Packs/Day Years Used Date Smoking Tobacco: Never Assessed [facility] Utilities Answer Date Recorded In the past [address] [facility] electric, gas, oil, or water company threatened [...] any time in the past 12 m [facility], were you homeless or living in a [facility]p (including now)? 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 documented in this encounter Plan of Treatment Upcoming Encounters Date Type Department Care Team (Late st Contact Info) Description 11/06/2024 3:00 PM CDT Appointment Orthopedics at [address] [place] [address] Anahi Van MD [address] [place] [address] documented as of this encounter Visit Diagnoses Not on filedocumented in this encounter Care Teams Chrome Cleaner Relationship Specialty Start Date End Date Eliana Guerra MD [address] [place] [address] PCP - General Family Practice 12/04/19 documented as of this encounter
--- OUTSIDE RECORDS SUMMARY | 2024-10-26 01:24 | XMS_ITS | Encounter Summary ---
Author Organization [facility] Address [address] [place] [address] Care Team Providers Care Web Analytics Developer Name Role Phone Elsewhere, Pcp Primary Care Provider Unavailabl e Encounter Details Date Type Department Care Team (Late st Contact Info) Description 10/24/2024 Orders Only Department of Orthopedic Surgery in [place], [place] [address] [place] [address] Candida Lucero P.A.-C. 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 I have a [facility] place to live 05/29/2024 Education Answer Date Recorded What is the highest level of school you have completed or the highest degree you have received? 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 [address] [place] [phone] Discharge Disposition: Home or Self Care 11/01/2024 9:45 AM CDT Appointment Department of Radiology, [facility], in [place], [place] [address] [place] [phone] Candida Lucero P.A.-C. [address] [place] [phone] 11/01/2024 1:00 PM CDT Office Visit Department of Physical Medicine and Rehabilitation in [place], [place] [address] [place] [phone] David Weir D.O. [address] [place] [phone] 11/13/2024 2:30 PM CDT Office Visit Department of Sports Medicine in [place], [place] [address] [place] [phone] Ahsan Talbert M.D., Ph.D. [address] [place] [phone] 12/12/2024 8:00 AM TOOL CHASER Clinical Support [facility] in [address] [phone] Hamilton Beebe, Ph.D., L.P. [address] [place] [phone] 12/13/2024 8:00 AM TOOL CHASER Clinical Support [facility] in [address] [phone] Hamilton Beebe, Ph.D., L.P. [address] [place] [phone] 12/14/2024 8:00 AM TOOL CHASER Clinical Support [facility] in [address] [phone] Hamilton Beebe, Ph.D., L.P. [address] [place] [address] [phone] 12/17/2024 8:00 AM TOOL CHASER Clinical Support [facility] in [address] [phone] Hamilton Beebe, Ph.D., L.P. [address] [place] [address] [phone] 12/18/2024 8:00 AM TOOL CHASER Clinical Support [facility] in [address] [phone] Hamilton Beebe, Ph.D., L.P. [address] [place] [phone] 12/19/2024 8:00 AM TOOL CHASER Clinical Support [facility] in [address] [phone] Hamilton Beebe, Ph.D., L.P. [address] [place] [address] [phone] 12/20/2024 8:00 AM TOOL CHASER Clinical Support [facility] in [address] [phone] Hamilton Beebe, Ph.D., L.P. [address] [place] [phone] 12/21/2024 8:00 AM TOOL CHASER Clinical Support [facility] in [address] [phone] Hamilton Beebe, Ph.D., L.P. [address] [place] [phone] 12/24/2024 8:00 AM TOOL CHASER Clinical Support [facility] in [address] [phone] Hamilton Beebe, Ph.D., L.P. [address] [place] [phone] 12/25/2024 8:00 AM TOOL CHASER Clinical Support [facility] in [address] [address] Hamilton Beebe, Ph.D., L.P. [address] [place] [phone] 12/26/2024 8:00 AM TOOL CHASER Clinical Support [facility] in [address] [phone] Hamilton Beebe, Ph.D., L.P. [address] [place] [phone] 12/27/2024 8:00 AM TOOL CHASER Clinical Support [facility] in [address] [phone] Hamilton Beebe, Ph.D., L.P. [address] [place] [phone] 12/28/2024 8:00 AM TOOL CHASER Clinical Support [facility] in [address] [phone] Hamilton Beebe, Ph.D., L.P. [address] [place] [phone] 12/31/2024 8:00 AM TOOL CHASER Clinical Support [facility] in [address] [place] [address] Hamilton Beebe, Ph.D., L.P. [address] [place] [phone] 01/01/2025 8:00 AM TOOL CHASER Clinical Support [facility] in [address] [phone] Hamilton Beebe, Ph.D., L.P. [address] [place] [phone] 01/02/2025 8:00 AM TOOL CHASER Clinical Support [facility] in [address] [phone] Hamilton Beebe, Ph.D., L.P. [address] [place] [phone] 01/07/2025 1:30 PM TOOL CHASER Telemedicine Department of Urology in [place], [place] [address] [place] [phone] Danielle Pitt D.O. [address] [place] [phone] documented as of this encounter Visit Diagnoses Diagnosis Pain Hip Right- Primary documented in this encounter Additional Health Concerns Assessment Noted Time PHQ-9 Depression Total Score: 5 07/07/19 24 9:17 PM CDT documented as of this encounter Care Teams Web Analytics Developer Relationship Specialty Start Date End Date Elsewhere, Pcp PCP - General Internal Medicine 05/22/18 documented as of this encounter
--- OUTSIDE RECORDS SUMMARY | 2024-10-26 01:24 | XMS_ITS | Encounter Summary ---
Author Organization [facility] Address [address] [place] [address] Care Team Providers Care Excavating Supervisor Name Role Phone Eliana Guerra MD Primary Care Provider Reason for Visit * Reason Comments QUESTIONS, GENERAL Encounter Details Date Type Department Care Team ([facility] st Contact Info) Description 06/25/2024 Telephone Orthopedics at [address] [address] Anahi Van MD [address] [place] [address] QUESTIONS, GENERAL Social History Tobacco Use Types Packs/Day Years Used Date Smoking Tobacco: Never Assessed [facility] Utilities Answer Date Recorded In the past 12 months has [facility] electric, gas, oil, or water company [...] on file 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 [...] He states also that he is currently [facility] after an injury to his back. [...] 11/06/2024 3:00 PM CDT Appointment Orthopedics at [address] [place] [address] Anahi Van MD [address] [place] [address] documented as of this encounter Visit Diagnoses Not on filedocumented in this encounter Care Teams Excavating Supervisor Relationship Specialty Start Date End Date Eliana [place] [address] PCP - General Family Practice 12/04/19 documented as of this encounter
--- OUTSIDE RECORDS SUMMARY | 2024-10-26 01:24 | XMS_ITS | Encounter Summary ---
Author Organization [facility] Address [address] [place] [address]. [place] [address] Care Team Providers Care Mobile Equipment Mechanic Name Role Phone Kei Eugene MD Unavailable [phone] Eliana Guerra MD Primary Care Provider [phone] Eliana Guerra MD Unavailable [phone] Eliana Guerra MD Unavailable [phone] Unavailable Unavailable Jody Obregon APRN TOBACCO PACKER Unavailable [phone] Efrain Crow PA-C Unavailable [phone] Encounter Details Date Type Department Care Team (Late st Contact Info) Description 09/27/2024 Home Infusion [facility] [address] [place] [phone] Francine Duval LPN Social History Tobacco [...] on file 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 Gender Identity Not on file Sexual Orientation Not on file documented as of this encounter Plan of Treatment Scheduled Procedures Name Priority Associated Diagnoses Date/Ti me SURGICAL EXTRACTION, TOOTH Chronic pericoronitis documented as of this encounter Visit Diagnoses Not on filedocumented in this encounter Care Teams Mobile Equipment Mechanic Relationship Specialty Start Date End Date Eliana Guerra MD [facility] [place] [address] PCP - General Family Medicine 03/04/24 Kei Eugene MD [address] [place], [place] [address] Assigned Musculoskeletal Provider 03/01/24 Eliana Guerra MD [address] [address] Home Infusion Following Provider Family Medicine 03/11/24 Eliana Guerra MD [facility] [address] [place] [address] Home Infusion Following Provider Family Medicine 03/14/[address] [facility] Registered Dietitian Dietitian 03/14/24 Jody Obregon APRN TOBACCO PACKER Home Infusion Following Provider 03/14/24 Efrain Crow PA-C [facility] [address] [address] Home Infusion Following Provider Gastroenterology 06/25/24 documented as of this encounter
--- OUTSIDE RECORDS SUMMARY | 2024-10-26 01:24 | XMS_ITS | Encounter Summary ---
Author Organization [facility] Address [address] [place] [address]. [place] [address] Care Team Providers Care Jukebox Checker Name Role Phone Kei Eugene MD Unavailable [phone] Eliana Guerra MD Primary Care Provider [phone] Eliana Guerra MD Unavailable [phone] Eliana Guerra MD Unavailable [phone] Unavailable Unavailable Jody Obregon APRN CARTRIDGE ASSEMBLING MACHINE ADJUSTER Unavailable [phone] Jody Obregon APRN CARTRIDGE ASSEMBLING MACHINE ADJUSTER Unavailable [phone] Efrain Crow PA-C Unavailable [phone] Regina Monroy RN Unavailable Unavailabl e Encounter Details Date Type Department Care Team (Late st Contact Info) Description 03/26/2024 Home Infusion [facility] [address] [place] [phone] Weight loss (Primary [...] in an abandoned building, in an overnight group home, or couch-surfing.) Yes 03/03/2024 Are you worried [...] on file 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 Gender Identity Not on file Sexual Orientation Not on file documented as of this encounter Progress Notes * Anastacia Rodriguez, RD - 03/26/2024 8:49 AM CST [facility] Nutrition Follow up Anthropometrics/Weight Goals [...] per pt Enteral Nutrition Orders Enteral Formula: Roomorama Standard 1.4 Rate/Frequency: 70ml/hr--up to 5 cartons/day [...] to surgery April [address], [facility], [facility] Home Infusion Dietitian ORT SPECIALIST documented in this encounter Plan of Treatment Scheduled Procedures Name Priority Associated Diagnoses Date/Ti me SURGICAL EXTRACTION, TOOTH Chronic pericoronitis documented as of this encounter Visit Diagnoses Diagnosis Weight loss- Primary Loss of weight documented in this encounter Care Teams Jukebox Checker Relationship Specialty Start Date End Date Eliana Guerra MD [address] [facility] [address] [place] [address] PCP - General Family Medicine 03/04/24 Kei Eugene MD [facility] [place] [address] Assigned Musculoskeletal Provider 03/01/24 Eliana Guerra MD [facility] [address] [place] [address] Home Infusion Following Provider Family Medicine 03/11/24 Eliana Guerra MD [facility] [address] [place] [address] Home Infusion Following Provider Family Medicine 03/14/[address] [facility] Registered Dietitian Dietitian 03/14/24 Jody Obregon APRN CARTRIDGE ASSEMBLING MACHINE ADJUSTER [facility] [address] [place] [address] Home Infusion Following Provider 03/20/24 04/04/24 Jody Obregon APRN CARTRIDGE ASSEMBLING MACHINE ADJUSTER [facility] [address] [place] [address] Home Infusion Following Provider 03/14/24 Efrain Crow PA-C [facility] [address] [place] [address] Home Infusion Following Provider Gastroenterology 06/25/24 Regina Monroy RN [facility] [address] [place] [address] [facility] Resource Team 07/16/24 07/17/24 documented as of this encounter
--- OUTSIDE RECORDS SUMMARY | 2024-10-26 01:24 | XMS_ITS | Encounter Summary ---
Author Organization [facility] Address [address] [place] [address] Care Team Providers Care Market News Reporter Name Role Phone Elsewhere, Pcp Primary Care Provider Unavailabl e Reason for Referral * Outpatient (Routine) - Closed Specialty Diagnoses / Procedures Referred By Ye lund Referred To Contact Urology Kate Egan P.A.-C. [address] [place] [phone] Phone: tel: fax: Kate Egan P.A.-C. [address] [place] [phone] Phone: tel: fax: Referral ID Status Reason Start Date Expiration Date Visits Re quested Visits Authorized [id number] Closed 10/10/2024 04/11/2026 1 1 Encounter Details Date Type Department Care Team (Late st Contact Info) Description 10/10/2024 Orders Only Department of Urology in [place], [place] [address] [place] [phone] Kate Egan P.A.-C. 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 I have a [facility] place to live 05/29/2024 Education Answer Date Recorded What is the highest level of school you have completed or the highest degree you have received? Some college, no degree 05/24/2020 Sex and Gender Information Value Date Recorded Sex Assigned at Male 10/29/2020 12:38 PM CDT Legal Sex Male 1:45 PM LABORATORY ANALYST Gender Identity Male 07/15/2019 8:59 AM CDT Sexual Orientation Straight 07/15/2019 8: 59 AM CDT documented as of this encounter Plan of Treatment Upcoming Encounters Date Type Department Care Team (Latest Contact Info) Description 10/31/2024 9:15 AM CDT Clinical Communication Virtual Review in [address] [phone] 11/01/2024 9:00 AM CDT Appointment Department of Radiology, [facility] in [place], [place] [address] [place] [phone] Candida Luceor P.A.-C. [address] [place] [phone] Discharge Disposition: Home or Self Care 11/01/2024 9:45 AM CDT Appointment Department of Radiology, [facility], in [place], [place] [address] [place] [phone] Candida Lucero P.A.-C. [address] [place] [phone] 11/01/2024 1:00 PM CDT Office Visit Department of Physical Medicine and Rehabilitation in [address] [phone] David Weir D.O. [address] [place] [phone] 11/13/2024 2:30 PM CDT Office Visit Department of Sports Medicine in [address] [phone] Ahsan Talbert M.D., Ph.D. [address] [place] [phone] 12/12/2024 8:00 AM LABORATORY ANALYST Clinical Support [facility] in [address] [phone] Hamilton Beebe, Ph.D., L.P. [address] [place] [phone] 12/13/2024 8:00 AM LABORATORY ANALYST Clinical Support [facility] in [address] [phone] Hamilton Beebe, Ph.D., L.P. [address] [place] [phone] 12/14/2024 8:00 AM LABORATORY ANALYST Clinical Support [facility] in [address] [phone] Hamilton Beebe, Ph.D., L.P. [address] [place] [phone] 12/17/2024 8:00 AM LABORATORY ANALYST Clinical Support [facility] in [address] [phone] Hamilton Beebe, Ph.D., L.P. [address] [place] [phone] 12/18/2024 8:00 AM LABORATORY ANALYST Clinical Support [facility] in [address] [phone] Hamilton Beebe, Ph.D., L.P. [address] [place] [phone] 12/19/2024 8:00 AM LABORATORY ANALYST Clinical Support [facility] in [address] [phone] Hamilton Beebe, Ph.D., L.P. [address] [place] [phone] 12/20/2024 8:00 AM LABORATORY ANALYST Clinical Support [facility] in [address] [phone] Hamilton Beebe, Ph.D., L.P. [address] [place] [address] [phone] 12/21/2024 8:00 AM LABORATORY ANALYST Clinical Support [facility] in [address] [phone] Hamilton Beebe, Ph.D., L.P. [address] [place] [phone] 12/24/2024 8:00 AM LABORATORY ANALYST Clinical Support [facility] in [address] [phone] Hamilton Beebe, Ph.D., L.P. [address] [place] [phone] 12/25/2024 8:00 AM LABORATORY ANALYST Clinical Support [facility] in [address] [phone] Hamilton Beebe, Ph.D., L.P. [address] [place] [phone] 12/26/2024 8:00 AM LABORATORY ANALYST Clinical Support [facility] in [address] [phone] Hamilton Beebe, Ph.D., L.P. [address] [place] [phone] 12/27/2024 8:00 AM LABORATORY ANALYST Clinical Support [facility] in [address] [phone] Hamilton Beebe, Ph.D., L.P. [address] [place] [phone] 12/28/2024 8:00 AM LABORATORY ANALYST Clinical Support [facility] in [address] [phone] Hamilton Beebe, Ph.D., L.P. [address] [place] [address] [phone] 12/31/2024 8:00 AM LABORATORY ANALYST Clinical Support [facility] in [address] [phone] Hamilton Beebe, Ph.D., L.P. [address] [place] [phone] 01/01/2025 8:00 AM LABORATORY ANALYST Clinical Support [facility] in [address] [phone] Hamilton Beebe, Ph.D., L.P. [address] [place] [address] [phone] 01/02/2025 8:00 AM LABORATORY ANALYST Clinical Support [facility] in [address] [phone] Hamilton Beebe, Ph.D., L.P. [address] [place] [address] [phone] 01/07/2025 1:30 PM LABORATORY ANALYST Telemedicine Department of Urology in [place], [place] [address] [place] [phone] Danielle Pitt D.O. [address] [place] [phone] Scheduled Referrals Name Type Priority Associated Diagnoses Orde r Schedule Urology office visit (clinic) Outpatient Referral Routine Expected: 10/10/2024, Expires: 01/09/2026 documented as of this encounter Visit Diagnoses Not on filedocumented in this encounter Additional Health Concerns Assessment Noted Time PHQ-9 Depression Total Score: 5 07/07/19 24 9:17 PM CDT documented as of this encounter Care Teams Market News Reporter Relationship Specialty Start Date End Date Elsewhere, Pcp PCP - General Internal Medicine 05/22/18 documented as of this encounter
--- OUTSIDE RECORDS SUMMARY | 2024-10-26 01:24 | XMS_ITS | Encounter Summary ---
Author Organization [facility] Address [address] [place] [address]. [place] [address] Care Team Providers Care Carpenter Rough Name Role Phone Kei Eugene MD Unavailable [phone] Eliana Guerra MD Primary Care Provider [phone] Eliana Guerra MD Unavailable [phone] Eliana Guerra MD Unavailable [phone] Unavailable Unavailable Jody Obregon APRN EXCAVATOR BACKHOE OPERATOR Unavailable [phone] Efrain Crow PA-C Unavailable [phone] Regina Monroy RN Unavailable Unavailabl e Encounter Details Date Type Department Care Team (Late st Contact Info) Description 04/05/2024 Home Infusion [facility] [address] [place] [phone] Anastacia Rodriguez, JESUS ALBERTO Social History [...] in an abandoned building, in an overnight retirement, or couch-surfing.) Yes 03/03/2024 Are you worried [...] on file 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 Gender Identity Not on file Sexual Orientation Not on file documented as of this encounter Progress Notes * Anastacia Rodriguez, RD - 04/05/2024 11:38 AM CST [facility] Nutrition Follow up Anthropometrics/Weight Goals Height: 1.88 m (6' 2.02) Weight: 65.7 kg (144 lb 14.4 oz) IBW Male (kg): 82.24 BMI (kg): 17.97 FHI Dosing Weight: 64.3 kg (141 lb 12.1 oz) Weight history / comments:: 04/05/24: 143 lbs per pt Current Nutrition Orders Oral Diet: 500-1000kcal/day per pt Enteral Nutrition Orders Enteral Formula: Genetics Squared Standard 1.4 Rate/Frequency: 70ml/hr--up to 5 cartons/day [...] and tolerance Anastacia Rodriguez RD, CNSC, LD [facility] Dietitian HER WRINGER OPERATOR documented in this encounter Plan of Treatment Scheduled Procedures Name Priority Associated Diagnoses Date/Ti me SURGICAL EXTRACTION, TOOTH Chronic pericoronitis documented as of this encounter Visit Diagnoses Not on filedocumented in this encounter Care Teams Carpenter Rough Relationship Specialty Start Date End Date Eliana Guerra MD [address] [place] [address] PCP - General Family Medicine 03/04/24 Kei Eugene MD [address] [place] [address] Assigned Musculoskeletal Provider 03/01/24 Eliana Guerra MD [facility] [address] [place] [address] Home Infusion Following Provider Family Medicine 03/11/24 Eliana Guerra MD [facility] [address] [place] [address] Home Infusion Following Provider Family Medicine 03/14/[address] [facility] Registered Dietitian Dietitian 03/14/24 Jody Obregon APRN EXCAVATOR BACKHOE OPERATOR Home Infusion Following Provider 03/14/24 Efrain Crow PA-C [facility] [address] [address] Home Infusion Following Provider Gastroenterology 06/25/24 Regina Monroy, KASIE [facility] [address] [place] [address] [facility] Resource Team 07/16/24 07/17/24 documented as of this encounter
--- OUTSIDE RECORDS SUMMARY | 2024-10-26 01:24 | XMS_ITS | Encounter Summary ---
Author Organization [facility] Address [address] [place] [address] Care Team Providers Care Electrical Controls Designer Name Role Phone Elsewhere, Pcp Primary Care Provider Unavailabl e Reason for Referral * MRI/CAT/PET Scan (Routine) - Authorized Specialty Diagnoses / Procedures Referred By Contac t Referred To Contact Radiology Diagnoses Pain Hip Right Procedures MR Hip Arthrogram Right Candida Lucero P.A.-Kathya [address] [place] [address] Phone: tel: fax: [facility] Referral ID Status Reason Start Date Expiration Date V isits Requested Visits Authorized [id number] Authorized 10/23/2024 01/23/2026 1 1 * Outpatient (Routine) - Authorized Specialty Diagnoses / Procedures Referred By Contac t Referred To Contact Diagnoses Pain Hip Right Procedures FL Hip Arthrogram Injection Right SC INJ PROC HIP ARTHGRPH WO ANES SC FLUORO GUIDE [facility] Candida Lucero P.A.-C. [address] [place] [address] Phone: tel: fax: [facility] Referral ID Status Reason Start Date Expiration Date V isits Requested Visits Authorized [id number] Authorized 10/23/2024 01/23/2026 1 1 Encounter Details Date Type Department Care Team (Late st Contact Info) Description 10/23/2024 Orders Only Department of Orthopedic Surgery in [place], [place] [address] [place] [address] Candida Lucero P.A.-C. 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 Some college, no degree 05/24/2020 Sex and Gender Information Value Date Recorded Sex Assigned at Male 10/29/2020 12:38 PM CDT Legal Sex Male 1:45 PM CONTRACT AGENT Gender Identity Male 07/15/2019 8:59 AM CDT Sexual Orientation Straight 07/15/2019 8: 59 AM CDT documented as of this encounter Plan of Treatment Upcoming Encounters Date Type Department Care Team (Latest Contact Info) Description 10/31/2024 9:15 AM CDT Clinical Communication Virtual Review in [place], [place] 200 [place] [address] 11/01/2024 9:00 AM CDT Appointment Department of Radiology, [facility], in [address] [address] Candida Lucero, P.A.-CMackenzie [address] [place] [phone] Discharge Disposition: Home or Self Care 11/01/2024 9:45 AM CDT Appointment Department of Radiology, [facility], in [address] [phone] Candida Lucero, P.A.-CMackenzie [address] [place] [phone] 11/01/2024 1:00 PM CDT Office Visit Department of Physical Medicine and Rehabilitation in [address] [phone] David Weir D.O. [address] [place] [phone] 11/13/2024 2:30 PM CDT Office Visit Department of Sports Medicine in [place], [place] [address] [place] [phone] Ahsan Talbert M.D., Ph.D. [address] [place] [phone] 12/12/2024 8:00 AM CONTRACT AGENT Clinical Support [facility] in [address] [phone] Hamilton Beebe, Ph.D., L.P. [address] [place] [phone] 12/13/2024 8:00 AM CONTRACT AGENT Clinical Support [facility] in [address] [phone] Hamilton Beebe, Ph.D., L.P. [address] [place] [phone] 12/14/2024 8:00 AM CONTRACT AGENT Clinical Support [facility] in [address] [phone] Hamilton Beebe, Ph.D., L.P. [address] [place] [phone] 12/17/2024 8:00 AM CONTRACT AGENT Clinical Support [facility] in [address] [phone] Hamilton Beebe, Ph.D., L.P. [address] [place] [phone] 12/18/2024 8:00 AM CONTRACT AGENT Clinical Support [facility] in [address] [phone] Hamilton Beebe, Ph.D., L.P. [address] [place] [phone] 12/19/2024 8:00 AM CONTRACT AGENT Clinical Support [facility] in [address] [phone] Hamilton Beebe, Ph.D., L.P. [address] [place] [phone] 12/20/2024 8:00 AM CONTRACT AGENT Clinical Support [facility] in [address] [phone] Hamilton Beebe, Ph.D., L.P. [address] [place] [phone] 12/21/2024 8:00 AM CONTRACT AGENT Clinical Support [facility] in [address] [phone] Hamilton Beebe, Ph.D., L.P. [address] [place] [phone] 12/24/2024 8:00 AM CONTRACT AGENT Clinical Support [facility] in [address] [phone] Hamilton Beebe, Ph.D., L.P. [address] [place] [phone] 12/25/2024 8:00 AM CONTRACT AGENT Clinical Support [facility] in [address] [phone] Hamilton Beebe, Ph.D., L.P. [address] [place] [phone] 12/26/2024 8:00 AM CONTRACT AGENT Clinical Support [facility] in [address] [phone] Hamilton Beebe, Ph.D., L.P. [address] [place] [phone] 12/27/2024 8:00 AM CONTRACT AGENT Clinical Support [facility] in [address] [phone] Hamilton Beebe, Ph.D., L.P. [address] [place] [phone] 12/28/2024 8:00 AM CONTRACT AGENT Clinical Support [facility] in [address] [phone] Hamilton Beebe, Ph.D., L.P. [address] [place] [phone] 12/31/2024 8:00 AM CONTRACT AGENT Clinical Support [facility] in [address] [phone] Hamilton Beebe, Ph.D., L.P. [address] [place] [phone] 01/01/2025 8:00 AM CONTRACT AGENT Clinical Support [facility] in [address] [phone] Hamilton Beebe, Ph.D., L.P. [address] [place] [phone] 01/02/2025 8:00 AM CONTRACT AGENT Clinical Support [facility] in [place], [place] [address] [place] [phone] Hamilton Beebe, Ph.D., L.P. [address] [place] [phone] 01/07/2025 1:30 PM CONTRACT AGENT Telemedicine Department of Urology in [place], [place] [address] [place] [phone] Danielle Pitt D.O. [address] [place] [phone] Scheduled Orders Name Type Priority Associated Diagnoses Orde r Schedule FL Hip Arthrogram Injection Right Imaging RAD - Routine (most inpatients and all outpatients) Pain Hip Right Expected: 10/23/2024 (Approximate), Expires: 10/23/2025 MR Hip Arthrogram Right Imaging RAD - Routine (most inpatients and all outpatients) Pain Hip Right Expected: 10/23/2024 (Approximate), Expires: 10/23/2025 documented as of this encounter Visit Diagnoses Diagnosis Pain Hip Right- Primary documented in this encounter Additional Health Concerns Assessment Noted Time PHQ-9 Depression Total Score: 5 07/07/19 24 9:17 PM CDT documented as of this encounter Care Teams Electrical Controls Designer Relationship Specialty Start Date End Date Elsewhere, Pcp PCP - General Internal Medicine 05/22/18 documented as of this encounter
--- OUTSIDE RECORDS SUMMARY | 2024-10-26 01:24 | XMS_ITS | Clinical Summary ---
Author Organization [facility] Address [address] [place] [address] Care Team Providers Care Television Station Manager Name Role Phone Eliana Guerra MD [...] 5 mg by mouth. 2 Active Diaper,Brief, Adult,Disposabl eIndications:No cturnal enuresis For home use. 90 Each 4 Active metoclopramide (REGLAN) 5 mg tabletIndicatio ns:Early satiety,Delayed gastric emptying Take 1 Tablet (5 mg) by mouth three times daily before meals. 270 Tablet 5 Active polyethylene glycol (MIRALAX; GLYCOLAX) 17 g per packet packet Mix 17 g in liquid then take by mouth once daily if needed. 5 Active omeprazole 40 mg Delayed-Release capsuleIndicati ons:Gastric reflux TAKE 1 CAPSULE(40 MG) BY MOUTH DAILY BEFORE A MEAL 90 Capsule 5 Active famotidine 40 mg tabletIndicatio ns:Heart burn Take 0.5 Tablets (20 mg) by mouth two times daily. 90 Tablet 1 5 Active loratadine 10 mg tablet Take 1 Tablet (10 mg) by mouth once daily. 5 Active tiZANidine (ZANAFLEX) 2 mg capsule Take 1 Capsule (2 mg) by mouth every 8 hours if needed for Muscle Spasm (scheduled TID). 5 Active oxybutynin XL (DITROPAN XL) 10 mg CR tabletIndicatio ns:Complicated UTI (urinary tract infection),Urin alejandro retention,Garza catheter in place Take 1 Tablet (10 mg) by mouth once daily. 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 90 Capsule 1 5 Active LORazepam (ATIVAN) 0.5 mg tabIndications: Situational anxiety Take 1 Tablet (0.5 mg) by mouth once daily if needed for Anxiety (#5 tabs/ 30 days only). 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 90 Tablet 1 5 Active FLUoxetine 20 mg capsuleIndicati ons:Current severe episode of major depressive disorder without psychotic features without prior episode (HC) Take 1 Capsule (20 mg) by mouth once daily in the morning. 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 30 Tablet 1 5 10/05/19 25 Discontinue d(Reorder (E-cancel not sent)) LORazepam (ATIVAN) 0.5 mg tabIndications: SAIRA (generalized anxiety disorder) Take 1 Tablet (0.5 mg) by mouth once daily if needed for Anxiety (#5 tabs/ 30 days only). 5 Tablet 5 10/05/19 25 Discontinue d(Reorder (E-cancel not sent)) amoxicillin-cla vulanate (AUGMENTIN) 875-125 mg tablet Take 1 Tablet by mouth two times daily with meals. 10/04/19 25 Discontinue d(*Med complete/Re gimen complete/Le polo of care change) trimethoprim-kuhn lfamethoxazole 160-800 mg tabIndications: urinary tract infection Take 1 Tablet by mouth two times daily for 7 days. 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 Underweight in adolescence 01/04/2018 Scoliosis 01/04/2018 Congenital pectus excavatum 12/29/2013 Encounters Date Type Department Care Team Description 10/22/2024 3:00 PM CDT Telemedicine [facility] [address] [place] [address] Kwame Yanez, PhD, Telehealth 10/04/2024 9:30 AM CDT Office Visit [facility] [address] [place] [address] Zoila Manriquez NP Medication Management (Things are going fantastic) 10/04/2024 Telephone [facility] [address] [place] [address] Eliana Guerra MD 10/04/2024 Travel 10/03/2024 10:50 AM CDT Office Visit [facility] [address] [place] [address] Eliana Guerra MD Follow Up (Bladder concerns) 10/03/2024 Travel 10/01/2024 [facility]phone [facility] [address] [facility] [address] [place] [address] Gracie Tobar MD Failed Appointment (Missed consult appointment, first notice sent.) 09/21/2024 Orders Only [facility] Scanner 1 scan: (1-Ord) [facility], MULTIPLE RESULTS, 09/21/2024 09/18/2024 Orders Only [facility] Scanner 1 scan: (1-Ord) [facility], MULTIPLE RESULTS, 09/18/2024 08/29/2024 Telephone [facility] [address] [place] [address] Kwame Yanez, PhD, LP Testing / Follow Up Appointments NEEDED 08/28/2024 9:00 AM CDT Office Visit [facility] [address] [place] [address] Katarzyna Cohen MD [facility] F/U (Follow up ER on 08/25 for UTI. Still having symptoms ) 08/27/2024 10:30 AM CDT Telemedicine [facility] [address] [place] [address] Zoila Manriquez NP Telehealth; Medication Management 08/27/2024 Telephone [facility] [address] [place] [address] Zoila Manriquez NP Appointment 08/27/2024 Travel 08/24/2024 Nurse Triage [facility] [address] [place] [address] Katarzyna Cohen MD UTI 08/20/2024 2:40 PM CDT Office Visit [facility] [address] [place] [address] Katarzyna Cohen MD UTI 08/20/2024 Travel 08/01/2024 2:00 PM CDT Telemedicine [facility] [address] [place] [address] Zoila Manriquez NP Telehealth; Medication Management (Things are the same) 08/01/2024 Travel 07/27/2024 9:00 AM CDT Telemedicine [facility] [address] [place] [address] Zoila Manriquez NP Telehealth; Mental Health Intake 07/27/2024 Telephone [facility] [address] [place] [address] Lainey Sims, RN [facility] 07/27/2024 Travel from Last 3 Months Immunizations Immunization [...] PHQ-2 Answer Date Recorded PHQ-2 TOTAL SCORE 2 10/04/2024 Social Connections Answer Date Recorded Do you [...] on file 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 Gender Identity Not on file Sexual Orientation Not on file Occupation Industry Job Start Date Job End Date Student Not on file Not on file Not on file Obstetrics History Last Filed Vital Signs Vital Sign Reading Time Taken Comments Blood Pressure 119/78 10/04/2024 9:36 AM CDT Pulse 84 10/04/2024 9:36 AM CDT Temperature 37 C (98.6 F) 08/20/2024 2:41 PM CDT Respiratory Rate 18 11/25/2023 10:50 AM CDT Oxygen Saturation 99% 10/03/2024 11:01 AM CDT Inhaled Oxygen Concentration - - Weight 80.3 kg (177 lb 1.6 oz) 10/04/2024 9:36 A M CDT Height 190 cm (6' 2.8) 04/12/2024 11:25 AM WIRE WEAVER Body Mass Index 22.25 04/12/2024 11:25 AM WIRE WEAVER Plan of Treatment Upcoming Encounters Date Type Department Care Team (Late st Contact Info) Description 11/12/2024 3:00 PM CDT Telemedicine [facility] [address] [place] [phone] Kwame Yanez, PhD, [address] [place] [address] 11/15/2024 1:00 PM CDT Office Visit [facility] [address] [place] [address] Zoila Manriquez NP [address] [place] [address] Health Maintenance Due Date Last Done Comments Influenza Vaccine (#1) 2024 , 11/19/2022, 04/16/2022, Additional history exists BMI (ht and wt on same day) for age 18+ 04/12/2025 04/12/2024, 03/27/2024, 11/02/2023, Additional history exists Depression screening for age 12+ 10/04/2025 10/04/2024, 08/28/2024, 05/28/2024, Additional history exists Tetanus booster 11/19/2032 11/19/2022, 09/22/2012 RSV vaccine for adults or (1 - 1-dose 75+ series) 05/10/2075 Pneumococcal series for age 6-49 Aged Out 04/21/2001, 01/12/2001, 2000 No longer eligible based on patient's age to complete this topic Hepatitis B series for 19+ Completed 10/20, 01/12/2001, 2000 HIV for age 15-65 Completed 08/18/2020 Hepatitis C screening for age 18-79 Completed 08/18/2020 HPV series for age 9-45 Completed 10/29/19 21, 03/07/2020, 10/19/2019 COVID-19 vaccine series Completed 11/02/19 24, 04/16/2022, 02/18/2021, Additional history exists Procedures Procedure Name Priority Date/Time Associated Diagnosis Comments SCAN-LABORATORY REPORT 09/21/2024 12:00 AM CDT SCAN-LABORATORY REPORT 09/18/2024 12:00 AM CDT URINALYSIS MACROSCOPIC - [facility] ONLY POC DIP (QUEST) Routine 08/20/2024 2:51 PM CDT Complicated UTI (urinary tract infection) URINALYSIS MICROSCOPIC Routine 08/20/2024 2:34 PM CDT Complicated UTI (urinary tract infection) URINE CULTURE Routine 08/20/2024 2:34 PM CDT Complicated UTI (urinary tract infection) EXPOSURE (BBF) RAPID HIV Routine 08/18/2020 8:10 AM CDT Employee exposure to blood EXPOSURE (BBF) ANTI HCV Routine 08/18/2020 8:10 AM CDT Employee exposure to blood from Last 3 Months or Most Recently Relevant to Health Maintenance Results * SCAN-LABORATORY REPORT (09/21/2024 12:00 AM CDT) Only the most recent of2 resultswithin the time period is included. us Scanner OTHER Final Result * (ABNORMAL) POCT Urinalysis Dipstick Only [[id number]] (08/20/2024 2:51 PM CDT) Pathologist [facility] PH 6.5 5.0 - 8.0 [facility] SPECIFIC GRAVITY 1.025 1.001 - 1.035 [facility] GLUCOSE NEGATIVE NEGATIVE [facility] BILIRUBIN NEGATIVE NEGATIVE [facility] KETONES NEGATIVE NEGATIVE [facility] OCCULT BLOOD TRACE(A) NEGATIVE [facility] PROTEIN 1+(A) NEGATIVE [facility] NITRITE POSITIVE(A) NEGATIVE [facility] LEUKOCYTE ESTERASE 2+(A) NEGATIVE [facility] Urine URINE SPECIMEN / Unknown 08/20/2024 2:51 PM CDT 08/20/2024 2:52 PM CDT Katarzyna Cohen MD URINE Final R esult [facility] [address] [address] [address], [facility] [address] [facility] [place] [address] * (ABNORMAL) URINALYSIS MICROSCOPIC [[id number]] - routine (08/20/2024 2:34 PM CDT) RBC >100(A) 0-2, None Seen /HPF 08/21/2024 7:05 AM CDT [facility] WBC >100(A) 0-2, 3-5, None Seen /HPF 08/21/2024 7:05 AM CDT [facility] BACTERIA Many(A) None Seen, Rare, Few Bacteria/ HPF 08/21/2024 7:05 AM CDT [facility] EPITHELIAL CELLS None Seen None Seen, Few Epi/HPF 08/21/2024 7:05 AM CDT [facility] YEAST Present(A) (none) 08/21/2024 7:05 AM CDT [facility] HYALINE CASTS 3-5 0-2, 3-5 /LPF 08/21/2024 7:05 AM CDT [facility] CALCIUM OXALATE CRYSTALS Present(A) (none) 08/21/2024 7:05 AM CDT [facility] CALCIUM PHOSPHATE CRYSTALS Present(A) (none) 08/21/2024 7:05 AM CDT [facility] Urine URINE SPECIMEN / Unknown Non-Blood / Unknown 08/20/2024 2:34 PM CDT 08/20/2024 2:34 PM CDT Katarzyna Cohen MD URINE Final R esult Performing Organization Address [facility] Co de Phone Number [facility] [address] [place] [address], [place] * (ABNORMAL) URINE CULTURE [40323.2] (08/20/2024 2:34 PM CDT) CULTURE RESULT(A) 08/24/2024 7:06 AM CDT [facility] CULTURE >100,000 CFU/mL Klebsiella oxytoca 08/24/2024 7:06 AM CDT [facility] CULTURE >100,000 CFU/mL Citrobacter freundii 08/24/2024 7:06 AM CDT [facility] Comment: Oral cephalosporins are not recommended. May develop resistance during therapy with penicillins and 9-9cu-zttayyrnrk cephalosporins as a result of loss of repression of AmpC -lactamase. Therefore, isolates that are initially susceptible may become resistant within 3 to 4 days after initiation of therapy. CULTURE 50,000-100,000 CFU/mL Enterococcus species 08/24/2024 7:06 AM CDT [facility] Comment:Further identified a s - Enterococcus gilvus Urine URINE SPECIMEN / Unknown Non-Blood / Unknown 08/20/2024 2:34 PM CDT 08/20/2024 2:34 PM CDT Narrative [facility] - 08/24/2024 7:06 AM CDT Specimen appears contaminated. No further workup pending. us Katarzyna Cohen MD MICROBIOLOGY Final R esult Performing Organization Address City/[facility]/ZIP Co de Phone Number [facility] [address] [address], [place] * EXPOSURE (BBF) RAPID HIV (08/18/2020 8:10 AM CDT) SOURCE RAPID HIV SCREEN Non-Reacti ve Non-Reacti ve 08/18/2020 2:42 PM CDT [facility] Blood BLOOD SPECIMEN / Unknown Venipuncture / Unknown 08/18/2020 8:10 AM CDT 08/18/2020 8:11 AM CDT us Eliana Guerra MD SEND OUTS Final Resul t [facility] [address] [place] [address], * EXPOSURE (BBF) ANTI HCV (08/18/2020 8:10 AM CDT) HEPATITIS C ANTIBODY Non-React alex Non-React alex 08/18/2020 2:57 PM CDT [facility] Comment:Antibodies to HCV no t detected; does not exclude the possibility of exposure to HCV. Blood BLOOD SPECIMEN / Unknown Venipuncture / Unknown 08/18/2020 8:10 AM CDT 08/18/2020 8:11 AM CDT us Eliana Guerra MD SEND OUTS Final Resul t Performing Organization Address City/[facility]/ZIP Co de Phone Number [facility] [address] [place] [address], from Last 3 Months or Most Recently Relevant to Health Maintenance Additional Health Concerns Infection Onset Date Last Indicated ESBL 06/14/2024 06/14/[address] [place] [address] [facility] [id number] Care Teams Television Station Manager Relationship Specialty Start Date End Date Eliana Guerra MD [address] [place] [address] PCP - General Family Practice 10/20/17
--- OUTSIDE RECORDS SUMMARY | 2024-10-26 01:24 | XMS_ITS | Clinical Summary ---
Author Organization [facility] Address [address], [place] [address] Care Team Providers Care Commercial Decorator Name Role Phone Eliana Guerra MD Primary Care Provider [phone] Source Comments You are receiving this document as you are listed as the primary care provider,follow-up provider, or the patient has been referred to you for consultation.This is in compliance with the Medicare and[facility] EHR Incentive Program,which states Providers who transition their patient to another setting of careor provider of care or refers their patient to another provider of care shouldprovide summary care record for each transition of care or referral. 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 [address] [place] [address] Nilay Ceron MD 10/10/2024 Telephone Orthopedics at [address] [place] [address] Anahi Van MD APPOINTMENT REQUEST 10/07/2024 11:40 AM CDT E-Visit Orthopedics at [address] [place] [address] Nilay Ceron MD Chief Comp: Forms/Letter 10/03/2024 Notes/Orders [facility] [address] [place] [address] Charles Martinez MD Routine general medical examination at health care facility 09/17/2024 7:50 AM CDT Phone Visit Orthopedics at [address] [place] [address] Nilay Ceron MD Bilateral hip pain (Primary Dx) 09/13/2024 Telephone Orthopedics at [address] [place] [address] Anahi Van MD APPOINTMENT REQUEST 09/06/2024 9:10 PM CDT E-Visit Orthopedics at [address] [place] [address] Anahi Van MD Chief Comp: QUESTIONS, GENERAL 08/28/2024 Telephone Orthopedics at [address] [place] [address] Nilay Ceron MD CHANGING APPOINTMENTS 08/20/2024 9:00 AM CDT Office Visit [facility] [address] [facility] [place] [address] Mateusz Crawford DO Neuropathic pain (Primary Dx); Chronic pain syndrome 08/17/2024 Telephone [facility] [address] [facility] [place] [address] Mateusz Crawford DO Appointment Questions 08/15/2024 9:00 AM CDT Office Visit Orthopedics at [facility] [address] [place] [address]. [place] [address] Anahi Van MD Aftercare following surgery of the musculoskeletal system (Primary Dx); Peroneal tendinitis of right lower extremity 08/15/2024 8:45 AM CDT Ancillary Procedure [facility] 435 Radiology [address] [facility] [place] [address] Anahi Van MD Aftercare following surgery of the musculoskeletal system 08/06/2024 8:50 AM CDT Office Visit Orthopedics at [facility] [address] [facility] [place] [address] Nilay Ceron MD Bilateral hip pain (Primary Dx); Femoroacetabular impingement of left hip; Femoroacetabular impingement of right hip from Last 3 Months Social History Tobacco Use Types Packs/Day Years Used Date Smoking Tobacco: Never Smokeless Tobacco: Never Tobacco Cessation:Counseling Given: Not Answered Alcohol Use Standard Drinks/Week Comments Yes 0 (1 standard drink = 0.6 oz pur e alcohol) occasional [facility] Utilities Answer Date Recorded In the past 12 months has [employer] Diabetes, oil, or water [employer] threatened to shut off services in your [...] in the past 12 m [facility], were you homeless or living in a [place] health care facility (including now)? No 07/04/2024 Sex and Gender Information Value Date Recorded Sex Assigned at Not on file Legal Sex Male 5:33 PM SKY CAP Gender Identity Not on file Sexual Orientation [...] 11/06/2024 3:00 PM CDT Appointment Orthopedics at [facility] [address] [facility] [place] [address] Anahi Van MD [address] [place] [address] Health Maintenance Due Date Last Done Comments Hep C Screening (Preventive Services) 2000 Adult Preventive Visit 2018 HepB Vaccine (1) 05/10/2019 Influenza Vaccine (#1) 2024 , 11/19/2022, 04/16/2022, Additional history exists DTaP/Tdap/Td Vaccine [...] XR ANKLE RT 3 VIEWS STANDING LOCATION: [facility] 435 DATE: 08/15/2024 INDICATION: EXCISION EXOSTOSIS ANKLE [...] XR ANKLE RT 3 VIEWS STANDING LOCATION: [facility] 435 DATE: 08/15/2024 INDICATION: EXCISION EXOSTOSIS ANKLE (Right), Encounter for otherorthopedic aftercare, POST-OP COMPARISON: 06/06/2024. IMPRESSION: Postoperative findings of the distal fibula. Progressivehealing of the distal fibular osteotomy, with prior linear osteotomy lineremaining faintly visible. There is a chronic appearing ossicle at themedial fibular tip measuring 5 mm, not significantly changed. Anklemortise alignment is preserved. Anahi Van MD RAD GD Final Result from Last [place] [id number] [facility] PMAP Advance Directives * Full Code (Latest Code Status on File) Date Activated Date Inactivated Comments 06/19/2024 4:06 PM 07/04/2024 2:51 PM Care Teams Commercial Decorator Relationship Specialty Start Date End Date Eliana Guerra [place] [address] PCP - General Family Practice 12/04/19
--- OUTSIDE RECORDS SUMMARY | 2024-10-26 01:24 | XMS_ITS ---
Author Organization [facility] Address [address] [place] [address] Care Team Providers Care Wire Insulator Name Role Phone Kei Eugene MD Unavailable [phone] Eliana Guerra MD Primary Care Provider [phone] Eliana Guerra MD Unavailable [phone] Eliana Guerra MD Unavailable [phone] Unavailable Unavailable Jody Obregon APRN INFRASTRUCTURE ARCHITECT Unavailable [phone] Efrain Crow PA-C Unavailable [phone] Enteral Status:Enrolled (Active) Start date:03/05/2024 Enrollment date:03/14/2024 Linked medications:Nutritional Supplements (Active) Linked problems:Epigastric abdominal pain (Active), Nausea (Active), Weight loss (Active) Related program episode:Home Infusion (Active) Continued Care and Services Coordination
--- OUTSIDE RECORDS SUMMARY | 2024-10-26 01:25 | XMS_ITS | Encounter Summary ---
Author Organization [facility] Address [address] [place] [address] Care Team Providers Care Cloth Shearer Name Role Phone Elsewhere, Pcp Primary Care Provider Unavailabl e Reason for Referral * Behavioral Health (Routine) - Closed Specialty Diagnoses / Procedures Referred By Ye lund Referred To Contact Psychiatry / Psychiatry and Psychology Diagnoses Hypermobility Joint Pain Wrist Left Pain Hip Right Mike Salomon Jr., P.A.-C. [address] [place] [phone] Phone: tel: fax: [facility] Referral ID Status Reason Start Date Expiration Date Visits Re quested Visits Authorized [id number] Closed 09/18/2024 03/20/2026 1 1 Encounter Details Date Type Department Care Team (Late st Contact Info) Description 09/18/2024 Orders Only Department of Orthopedic Surgery in [place], [place] [address] [place] [phone] Mike Salomon Jr., P.A.-C. 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 Some college, no degree 05/24/2020 Sex and Gender Information Value Date Recorded Sex Assigned at Male 10/29/2020 12:38 PM CDT Legal Sex Male 1:45 PM SEATING UPHOLSTERER Gender Identity Male 07/15/2019 8:59 AM CDT Sexual Orientation Straight 07/15/2019 8: 59 AM CDT documented as of this encounter Plan of Treatment Upcoming Encounters Date Type Department Care Team (Latest Contact Info) Description 10/31/2024 9:15 AM CDT Clinical Communication Virtual Review in [place], [place] 200 [place] [address] 11/01/2024 9:00 AM CDT Appointment Department of Radiology, [facility] in [place], [place] [address] [place] [phone] Candida Lucero, Raymon.A.-CMackenzie [address] [place] [phone] Discharge Disposition: Home or Self Care 11/01/2024 9:45 AM CDT Appointment Department of Radiology, [facility], in [place], [place] [address] [place] [phone] Candida Lucero, Raymon.AMackenzie-CMackenzie [address] [place] [phone] 11/01/2024 1:00 PM CDT Office Visit Department of Physical Medicine and Rehabilitation in [place], [place] [address] [place] [phone] David Weir D.O. [address] [place] [phone] 11/13/2024 2:30 PM CDT Office Visit Department of Sports Medicine in [place], [place] [address] [place] [phone] Ahsan Talbert M.D., Ph.D. [address] [place] [phone] 12/12/2024 8:00 AM SEATING UPHOLSTERER Clinical Support [facility] in [place], [place] [address] [place] [phone] Hamilton Beebe, Ph.D., L.P. [address] [place] [address] [phone] 12/13/2024 8:00 AM SEATING UPHOLSTERER Clinical Support [facility] in [address] [phone] Hamilton Beebe, Ph.D., L.P. [address] [place] [phone] 12/14/2024 8:00 AM SEATING UPHOLSTERER Clinical Support [facility] in [address] [phone] Hamilton Beebe, Ph.D., L.P. [address] [place] [address] [phone] 12/17/2024 8:00 AM SEATING UPHOLSTERER Clinical Support [facility] in [address] [phone] Hamilton Beebe, Ph.D., L.P. [address] [place] [address] [phone] 12/18/2024 8:00 AM SEATING UPHOLSTERER Clinical Support [facility] in [address] [phone] Hamilton Beebe, Ph.D., L.P. [address] [place] [phone] 12/19/2024 8:00 AM SEATING UPHOLSTERER Clinical Support [facility] in [address] [phone] Hamilton Beebe, Ph.D., L.P. [address] [place] [phone] 12/20/2024 8:00 AM SEATING UPHOLSTERER Clinical Support [facility] in [address] [phone] Hamilton Beebe, Ph.D., L.P. [address] [place] [phone] 12/21/2024 8:00 AM SEATING UPHOLSTERER Clinical Support [facility] in [address] [phone] Hamilton Beebe, Ph.D., L.P. [address] [place] [phone] 12/24/2024 8:00 AM SEATING UPHOLSTERER Clinical Support [facility] in [address] [phone] Hamilton Beebe, Ph.D., L.P. [address] [place] [phone] 12/25/2024 8:00 AM SEATING UPHOLSTERER Clinical Support [facility] in [address] [phone] Hamilton Beebe, Ph.D., L.P. [address] [place] [phone] 12/26/2024 8:00 AM SEATING UPHOLSTERER Clinical Support [facility] in [address] [phone] Hamilton Beebe, Ph.D., L.P. [address] [place] [phone] 12/27/2024 8:00 AM SEATING UPHOLSTERER Clinical Support [facility] in [address] [phone] Hamilton Beebe, Ph.D., L.P. [address] [place] [address] [phone] 12/28/2024 8:00 AM SEATING UPHOLSTERER Clinical Support [facility] in [address] [phone] Hamilton Beebe, Ph.D., L.P. [address] [place] [phone] 12/31/2024 8:00 AM SEATING UPHOLSTERER Clinical Support [facility] in [address] [phone] Hamilton Beebe, Ph.D., L.P. [address] [place] [address] [phone] 01/01/2025 8:00 AM SEATING UPHOLSTERER Clinical Support [facility] in [address] [phone] Hamilton Beebe, Ph.D., L.P. [address] [place] [phone] 01/02/2025 8:00 AM SEATING UPHOLSTERER Clinical Support [facility] in [address] [phone] Hamilton Beebe, Ph.D., L.P. [address] [place] [phone] 01/07/2025 1:30 PM SEATING UPHOLSTERER Telemedicine Department of Urology in [place], [place] [address] [place] [phone] Danielle Pitt D.O. [address] [place] [phone] Scheduled Referrals Name Type Priority Associated Diagnoses Order Schedule Psychiatry and Psychology - Pain rehab center consult (clinic) Outpatient Referral Routine Hypermobility Joint Pain Wrist Left Pain Hip Right Expected: 09/18/2024, Expires: 12/19/2025 documented as of this encounter Visit Diagnoses Diagnosis Hypermobility Joint- Primary Pain Wrist Left Pain Hip Right documented in this encounter Additional Health Concerns Assessment Noted Time PHQ-9 Depression Total Score: 5 07/07/19 24 9:17 PM CDT documented as of this encounter Care Teams Cloth Shearer Relationship Specialty Start Date End Date Elsewhere, Pcp PCP - General Internal Medicine 05/22/18 documented as of this encounter
--- OUTSIDE RECORDS SUMMARY | 2024-10-26 01:25 | XMS_ITS | Encounter Summary ---
Author Organization [facility] Address [address] [place] [address] Care Team Providers Care Head Of Marketing Analytics Name Role Phone Elsewhere, Pcp Primary Care Provider Unavailabl e Reason for Visit * Reason Onset Date Comments Phone Call Requested 10/03/2024 Encounter Details Date Type Department Care Team (Latest Contact Info) Description 10/03/2024 Clinical Communication Department of Urology in [place], [place] [address] [place] [address] Kate Egan P.A.-C. 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 I have a [facility] place to live 05/29/2024 Education Answer Date Recorded What is the highest level of school you have completed or the highest degree you have received? Some college, no degree 05/24/2020 Sex and Gender Information Value Date Recorded Sex Assigned at Male 10/29/2020 12:38 PM CDT Legal Sex Male 1:45 PM NONPROFIT FUNDRAISER Gender Identity Male 07/15/2019 8:59 AM CDT Sexual Orientation Straight 07/15/2019 8: 59 AM CDT documented as of this encounter Miscellaneous Notes * Telephone Encounter - Kate Egan P.A.-C. - 10/04/2024 3:59 PM CDT I spoke with the patient's primary care provider, Dr. Eliana Guerra from [facility]. Patient had recent positive culture at [facility] in anticipation for upcoming urodynamic study. This is pansensitive and Dr. Guerra plans to treat with a 7 day course of Bactrim. Patient will initiate antibiotic therapy tomorrow, therefore we will be on oral antibiotics when he returns for his urodynamic study on 10/10/2024. He will have completed 5 days of oral antibiotics prior to completion of urodynamic study. I will plan to send a portal message to the patient once UDS has been completed. documented in this encounter Plan of Treatment Upcoming Encounters Date Type Department Care Team (Latest Contact Info) Description 10/31/2024 9:15 AM CDT Clinical Communication Virtual Review in [address] [phone] 11/01/2024 9:00 AM CDT Appointment Department of Radiology, [facility] in [address] [phone] Candida Lucero P.A.-C. [address] [place] [phone] Discharge Disposition: Home or Self Care 11/01/2024 9:45 AM CDT Appointment Department of Radiology, [facility], in [address] [phone] Candida Lucero P.A.-C. [address] [place] [phone] 11/01/2024 1:00 PM CDT Office Visit Department of Physical Medicine and Rehabilitation in [address] [phone] David Weir D.O. [address] [place] [phone] 11/13/2024 2:30 PM CDT Office Visit Department of Sports Medicine in [address] [phone] Ahsan Talbert M.D., Ph.D. [address] [place] [phone] 12/12/2024 8:00 AM NONPROFIT FUNDRAISER Clinical Support [facility] in [address] [phone] Hamilton Beebe, Ph.D., L.P. [address] [place] [phone] 12/13/2024 8:00 AM NONPROFIT FUNDRAISER Clinical Support [facility] in [address] [phone] Hamilton Beebe, Ph.D., L.P. [address] [place] [phone] 12/14/2024 8:00 AM NONPROFIT FUNDRAISER Clinical Support [facility] in [address] [phone] Hamilton Beebe, Ph.D., L.P. [address] [place] [phone] 12/17/2024 8:00 AM NONPROFIT FUNDRAISER Clinical Support [facility] in [address] [phone] Hamilton Beebe, Ph.D., L.P. [address] [place] [phone] 12/18/2024 8:00 AM NONPROFIT FUNDRAISER Clinical Support [facility] in [address] [phone] Hamilton Beebe, Ph.D., L.P. [address] [place] [phone] 12/19/2024 8:00 AM NONPROFIT FUNDRAISER Clinical Support [facility] in [address] [phone] Hamilton Beebe, Ph.D., L.P. [address] [place] [address] [phone] 12/20/2024 8:00 AM NONPROFIT FUNDRAISER Clinical Support [facility] in [address] [phone] Hamilton Beebe, Ph.D., L.P. [address] [place] [phone] 12/21/2024 8:00 AM NONPROFIT FUNDRAISER Clinical Support [facility] in [address] [phone] Hamilton Beebe, Ph.D., L.P. [address] [place] [phone] 12/24/2024 8:00 AM NONPROFIT FUNDRAISER Clinical Support [facility] in [address] [phone] Hamilton Beebe, Ph.D., L.P. [address] [place] [address] [phone] 12/25/2024 8:00 AM NONPROFIT FUNDRAISER Clinical Support [facility] in [address] [phone] Hamilton Beebe, Ph.D., L.P. [address] [place] [phone] 12/26/2024 8:00 AM NONPROFIT FUNDRAISER Clinical Support [facility] in [address] [phone] Hamilton Beebe, Ph.D., L.P. [address] [place] [phone] 12/27/2024 8:00 AM NONPROFIT FUNDRAISER Clinical Support [facility] in [address] [phone] Hamilton Beebe, Ph.D., L.P. [address] [place] [phone] 12/28/2024 8:00 AM NONPROFIT FUNDRAISER Clinical Support [facility] in [address] [phone] Hamilton Beebe, Ph.D., L.P. [address] [place] [phone] 12/31/2024 8:00 AM NONPROFIT FUNDRAISER Clinical Support [facility] in [address] [phone] Hamilton Beebe, Ph.D., L.P. [address] [place] [phone] 01/01/2025 8:00 AM NONPROFIT FUNDRAISER Clinical Support [facility] in [address] [phone] Hamilton Beebe, Ph.D., L.P. [address] [place] [phone] 01/02/2025 8:00 AM NONPROFIT FUNDRAISER Clinical Support [facility] in [address] [phone] Hamilton Beebe, Ph.D., L.P. [address] [place] [phone] 01/07/2025 1:30 PM NONPROFIT FUNDRAISER Telemedicine Department of Urology in [place], [place] [address] [place] [address] Danielle Pitt D.O. 200 [place] [address] documented as of this encounter Visit Diagnoses Not on filedocumented in this encounter Additional Health Concerns Assessment Noted Time PHQ-9 Depression Total Score: 5 07/07/19 24 9:17 PM CDT documented as of this encounter Care Teams Head Of Marketing Analytics Relationship Specialty Start Date End Date Elsewhere, Pcp PCP - General Internal Medicine 05/22/18 documented as of this encounter
--- OUTSIDE RECORDS SUMMARY | 2024-10-26 01:25 | XMS_ITS ---
Author Organization [place] Address [facility] [place] [address] Care Team Providers Care Mill Order Scheduler Name Role Phone Kei Eugene MD Unavailable [phone] Eliana Guerra MD Primary Care Provider [phone] Eliana Guerra MD Unavailable [phone] Eliana Guerra MD Unavailable [phone] Unavailable Unavailable Charisma Obregonyvonne SNOW AVAYA ENGINEER Unavailable [phone] Efrain Crow PA-C Unavailable [phone] Home Infusion Status:Enrolled (Active) Start date:03/05/2024 Enrollment date:03/14/2024 Enrollment reason:Identified using referral data Related service episodes:Enteral (Active) Case Team Name Relationship Phone Anastacia Rodriguez RD I Registered Dietitian Continued Care and Services Coordination This section includes services coordinated for Home Infusion. [facility] Name Services Phone [facility] ENTER[facility] ONLY Home Nursing [phone]
[2024-10-26 01:27] VITALS: BP 156/90; PULSE 100; RESP 20; TEMP 36.7; O2SAT 99; BMI 23.1
[2024-10-26 01:37] LABS: Appearance Urine Clear (Clear)
--- NOTE | 2024-10-26 01:58 | CRLHL7_ITS ---
For Patients: As a result of the Century Cures Act, medical imaging exams and procedure reports are released immediately into your electronic medical record. You may view this report before your referring provider. If you have questions, please contact your health care provider. INDICATION: Right flank pain. TECHNIQUE: CT of the abdomen and pelvis without IV contrast. Coronal and sagittal reconstructions. COMPARISON: None. FINDINGS: Lower chest: The lung bases are clear except for a calcified granuloma in the left lower lobe. Liver: Unremarkable. Gallbladder and bile ducts: Unremarkable. No biliary dilatation. Spleen: Unremarkable. Pancreas: Unremarkable. Adrenal glands: Unremarkable. Kidneys, Ureters, and Bladder: No hydronephrosis or ureteral dilation. No obstructing urinary calculi identified. There is a tiny calcification immediately posterior to the distal left ureter which is likely a phlebolith (series 2, image 112). Circumferential bladder wall thickening. Reproductive organs: Unremarkable noncontrast appearance. GI tract/Peritoneum: Percutaneous gastrojejunostomy tube appears appropriately positioned. No small bowel dilation. Moderate stool burden. The appendix is not identified, however there are no secondary signs of inflammation in the right lower quadrant. No intraperitoneal free air or fluid. Vasculature: Abdominal aorta is normal in caliber. Retroaortic left renal vein. Lymph nodes: No lymphadenopathy. Abdominal Wall: Tiny fat containing umbilical hernia. Musculoskeletal: Pectus excavatum. Asymmetric atrophy of the right iliopsoas muscle. IMPRESSION: 1. No hydronephrosis or obstructing urinary calculi. Probable tiny phlebolith adjacent to the distal left ureter. 2. Bladder wall thickening. Correlate with urinalysis. 3. No other acute findings in the abdomen or pelvis on this noncontrast exam. Please note that all CT scans at this facility use dose modulation, iterative reconstruction, and/or weight-based dosing when appropriate to reduce radiation dose to as low as reasonably achievable. Dictated by Viky Lion MD @ 10/26/2024 2:42:49 AM (Electronically Signed)
[2024-10-26] MEDS: ONDANSETRON ODT 4 MG TAB 8 MG PO (02:03)
[2024-10-26 03:02] VITALS: BP 144/85; PULSE 90; RESP 20; TEMP 36.7; O2SAT 99
[2024-10-26] MEDS: SULFA/TRIMETHOPRIM 800/160 1 TAB PO (03:02)
[2024-10-26 03:03] VITALS: BP 144/85; PULSE 90; RESP 20; TEMP 36.7
--- NOTE | 2024-10-26 03:03 | ED.GENADULT ---
HPI - General Adult General Date Seen: 10/26/24 Chief complaint: Flank Pain Stated complaint: UTI Time Seen by Provider: 10/26/24 01:45 Source: patient Mode of arrival: ambulatory Limitations: no limitations History of Present Illness HPI narrative: Patient is a 24-year-old male with a history of Kamari Danlos syndrome, Klinefelter syndrome, he urinary retention requiring self catheterization who presents emergency department with complaints of urinary urgency, dysuria, right flank pain. He does see a [facility]rologist in the [facility] but cannot recall his name. His PCP is Dr. Guerra. He has had a couple of urinary tract infections in the past month. He has been through two week course of Cipro and more recently a course of Bactrim DS. With his ligament laxity issues it is felt that quinolones are not the best option for him. He has pain when he catheterizes himself but generally follows sterile technique. No fevers or chills. He has recently completed urodynamic studies that were basically normal other than weak detrusor contractions. Related Data Home Medications ?Medication ?Instructions ?Recorded ?Confirmed diclofenac sodium 1 % topical gel 2 g topical QID 11/08/23 10/26/24 famotidine 40 mg tablet 40 mg PO DAILY 11/08/23 10/26/24 fluoxetine 20 mg capsule 20 mg PO DAILY 05/17/24 10/26/24 metoclopramide HCl 5 mg tablet 5 mg PO TID 05/17/24 10/26/24 Previous Rx's ?Medication ?Instructions ?Recorded ondansetron 4 mg disintegrating 4 mg PO Q8H PRN nausea and 12/02/23 tablet vomiting #10 tabs sulfamethoxazole 800 1 tab PO BID #14 tabs 10/26/24 mg-trimethoprim 160 mg tablet (Bactrim DS) Allergies Allergy/AdvReac Type Severity Reaction Status Date / Time No Known Allergies Allergy Verified 10/26/24 01:28 Review of Systems Narrative: He has a GJ tube but gets most of his calories by mouth. He wears AFOs on both ankles. He has had some wrist issues and surgery. He has acid reflux, seasonal allergies, depression, chronic nausea. Review of systems in all other areas is noted to be negative. 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) ?Q79.60 - Kamari-Danlos syndrome, unspecified (ICD-10) 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) ?M26.609 - Unspecified temporomandibular joint disorder, unspecified side (ICD-10) Labral tear of right hip joint (12/12/19) ?S73.191A - Other sprain of right hip, initial encounter (ICD-10) Scoliosis (01/04/18) ?M41.9 - Scoliosis, unspecified (ICD-10) Pes planus (03/23/18) ?M21.40 - Flat foot [pes planus] (acquired), unspecified foot (ICD-10) Pectus excavatum (12/29/13) ?Q67.6 - Pectus excavatum (ICD-10) Pain in left wrist (07/01/20) ?M25.532 - Pain in left wrist (ICD-10) Hip pain, bilateral (12/12/19) ?M25.551 - Pain in right hip (ICD-10) ?M25.552 - Pain in left hip (ICD-10) Myofascial pain syndrome (09/24/20) ?M79.18 - Myalgia, other site (ICD-10) Hypogonadism male (03/23/18) ?E29.1 - Testicular hypofunction (ICD-10) Foot drop, left ?M21.372 - Foot drop, left foot (ICD-10) Exertional headache (04/18/18) ?G44.84 - Primary exertional headache (ICD-10) De Quervain's tenosynovitis (05/23/20) ?M65.4 - Radial styloid tenosynovitis [de Quervain] (ICD-10) Chronic back pain (04/21/23) ?M54.9 - Dorsalgia, unspecified (ICD-10) ?G89.29 - Other chronic pain (ICD-10) Bilateral tinnitus (09/24/20) ?H93.13 - Tinnitus, bilateral (ICD-10) Atrophy of testis (03/23/18) ?N50.0 - Atrophy of testis (ICD-10) 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) ?M26.639 - Articular disc disorder of temporomandibular joint, unspecified side (ICD-10) Arthralgia of temporomandibular joint (09/24/20) ?M26.629 - Arthralgia of temporomandibular joint, unspecified side (ICD-10) Acquired pectus carinatum ?M95.4 - Acquired deformity of chest and rib (ICD-10) Dyspepsia ?R10.13 - Epigastric pain (ICD-10) Malnutrition ?E46 - Unspecified protein-calorie malnutrition (ICD-10) Instability of left hip joint ?M25.352 - Other instability, left hip (ICD-10) Wrist joint instability ?M25.339 - Other instability, unspecified wrist (ICD-10) 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 - Kamari-Danlos syndrome, unspecified (ICD-10) Scaphoid fracture ?S62.009A - Unspecified fracture of navicular [scaphoid] bone of unspecified wrist, initial encounter for closed fracture (ICD-10) Chronic patellofemoral pain of left knee ?M25.562 - Pain in left knee (ICD-10) ?G89.29 - Other chronic pain (ICD-10) Tear of triangular fibrocartilage complex (TFCC) of right wrist (~07/2021) ?S63.591A - Other specified sprain of right wrist, initial encounter (ICD-10) Surgical History (Updated 10/26/24 @ 02:40 by Dillon Fox RN) History of surgery ?Z98.890 - Other specified postprocedural states (ICD-10) Status post arthroscopy of hip ?Z98.890 - Other specified postprocedural states (ICD-10) History of carpal tunnel surgery of left wrist (02/02/21) ?Z98.890 - Other specified postprocedural states (ICD-10) Social History Narrative: He lives with his mother. His mother has left for trip to [place] 9 days ago. He is mostly home alone. His father, who has significant disabilities, comes to stay with him at times. He also has therapists and home health who come into the home daily. 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 He has been unable to work recently because of his multiple disabilities. He does not smoke. He drinks alcohol a couple times a week. He occasionally uses cannabis. What is your current living situation?: I presently have a place to live Problems where you live: no known problems Problems where you live details: n/a In the past 12 months, utilities in danger of being shut off: no In past 12 months, lack of transportation kept you from medical appts, meetings, work, or getting things needed for daily living: yes In the past 12 mos, have been you worried that your food would run out before you had money to buy more?: never true In the past 12 mos, the food you bought just didn't last and you didn't have money to buy more?: never true Smoking Status: Never smoker Do you use any of these nicotine containing products: None Second hand tobacco smoke exposure: Yes (occasionally) How often do you have a drink containing alcohol: 2-4 times a month How many standard drinks containing alcohol do you have on a typical day: 3 or 4 How often do you have six or more drinks on one occasion: Less than monthly AUDIT-C Alcohol total score: 4 Non-prescribed substance use: denies use Caffeine: Yes (rarely) How often does anyone, including family, friends and others, physically hurt you: never How often does anyone, including family, friends and others, insult or talk down to you: never How often does anyone, including family, friends and others, threaten you with harm: never How often does anyone, including family, friends and others, scream or curse at you: never service: No Health Related Social Needs: transportation insecurity (Z59.82) Exam Narrative: Exam Narrative: Vitals noted. Lungs: Clear to auscultation in all campos. No wheezes, rales, rhonchi. Heart: Regular rate and rhythm without murmur. Abdomen: Soft and nontender. No guarding, rigidity, rebound. Bowel sounds are normal. No palpable masses. GJ tube in place. Extremities: No cyanosis or edema. Good distal pulses. AFOs on both ankles. Skin: No abnormalities noted of the exposed skin. Neurologic: Awake, alert, fully oriented. Neurologic exam is nonfocal. Const: Vital Signs, click to edit/add: Vital Signs - 24 hr 10/26/24 01:27 10/26/24 03:02 10/26/24 03:03 Temperature 98.0 F 98.0 F 98.0 F Pulse Rate [Right Pulse Oximeter] 100 90 90 Respiratory Rate 20 20 20 Blood Pressure [Ri ght Upper Arm] 156/90 H 144/85 H 144/85 H Pulse Oximetry 99 99 Oxygen Delivery Me thod Room Air Room Air Course Course ED Course: Patient is seen and examined. UA is nitrite positive with 10-25 white cells and many bacteria. CT of the abdomen and pelvis shows: 1. No hydronephrosis or obstructing urinary calculi. Probable tiny phlebolith adjacent to the distal left ureter. 2. Bladder wall thickening. Correlate with urinalysis. 3. No other acute findings in the abdomen or pelvis on this noncontrast exam. He is given Zofran 8 mg orally and Bactrim DS one tablet. He denies a need for pain medication. Vital Signs Vital signs: Initial Vital Signs Temperature 98.0 F 10/26/24 01:27 Temperature Source Temporal Artery Scan 10/26/24 01:27 Pulse Rate 100 10/26/24 01:27 Respiratory Rate 20 10/26/24 01:27 Blood Pressure 156/90 H 10/26/24 01:27 Blood Pressure Mean 112 H 10/26/24 01:27 Blood Pressure Position Sitting 10/26/24 01:27 Pulse Oximetry 99 10/26/24 01:27 Oxygen Delivery Method Room Air 10/26/24 01:27 Vital Signs Temperature 98.0 F 10/26/24 01:27 Pulse Rate 100 10/26/24 01:27 Respiratory Rate 20 10/26/24 01:27 Blood Pressure 156/90 H 10/26/24 01:27 Pulse Oximetry 99 10/26/24 01:27 Oxygen Delivery Method Room Air 10/26/24 01:27 Temperature 98.0 F 10/26/24 03:03 Pulse Rate 90 10/26/24 03:03 Respiratory Rate 20 10/26/24 03:03 Blood Pressure 144/85 H 10/26/24 03:03 Pulse Oximetry 99 10/26/24 03:02 Oxygen Delivery Method Room Air 10/26/24 03:02 Medications Administered Medications: Discontinued Medications Generic Name Dose Route Start Last Admin Trade Name Freq PRN Reason Stop Dose Admin Ondansetron HCl 8 mg 10/26/24 01:59 10/26/24 02:03 Ondansetron Odt 4 Mg Tab PO 10/26/24 02:00 8 mg ONCE ONE Administration Trimethoprim/Sulfamethoxazole 1 tab 10/26/24 02:59 10/26/24 03:02 Sulfa/Trimethoprim 800/160 1 Tab PO 10/26/24 03:00 1 tab ONCE ONE Administration Medical Decision Making Lab Data Labs: Lab Results 10/26/24 Range/Units 01:30 Urine Color Yellow (Yellow) Urine Appearance Clear (Clear) Urine pH 7.5 (5.0-8.5) Ur Specific [place] 1.020 (1.000-1.030) Urine Protein 2+ A (Negative) Urine Glucose (UA) Negative (Negative) Urine Ketones Negative (Negative) Urine Blood 1+ A (Negative) Urine Nitrite Positive A (Negative) Urine Bilirubin Negative (Negative) Urine Urobilinogen 1.0 (0.2-1.0) Ur Leukocyte Esterase 3+ A (Negative) Urine RBC 0-2 (0-2) Urine WBC 10-25 A (0-5) Ur Squamous Epith Cells None (None-Few) Urine Bacteria Many A (None) Discharge Plan Discharge Clinical Impression: Acute UTI Patient Disposition: Home, Self-Care Condition: Stable Additional Instructions: Push fluids. Bactrim DS x 7 days. Follow up with Urology. Prescriptions: New sulfamethoxazole-trimethoprim [Bactrim DS] 800-160 mg tablet 1 tab PO BID Qty: 14 0RF No Action metoclopramide HCl 5 mg tablet 5 mg PO TID fluoxetine 20 mg capsule 20 mg PO DAILY famotidine 40 mg tablet 40 mg PO DAILY diclofenac sodium 1 % gel 2 g topical QID ondansetron 4 mg tablet,disintegrating 4 mg PO Q8H PRN (Reason: nausea and vomiting) Qty: 10 0RF Follow Up/Referrals: Eliana Guerra MD [Primary Care Provider, Family Practice] Stand Alone Forms: [facility] Info Instructions
== END 2024-10-26 03:05 | disposition home or self-care (01) ==
PROVIDERS: Emergency Provider Family Medicine; PCP Family Medicine
DX: N39.0 Urinary tract infection, site not specified (principal)
CPT/HCPCS: 74176; 81001; 87086; 99283; 99284; A9270

== ENCOUNTER 2024-10-30 01:05 | Emergency (ER) | payer BC, SELFPAY ==
--- OUTSIDE RECORDS SUMMARY | 2024-07-13 08:53 | XMS_ITS | Continuity of Care Document ---
Author Organization [facility] Address [address] [address] [place] [address] Phone Care Team Providers Care Radio Performer Name Role Phone [employer], Jody Unavailable Unavailable Allergies, Adverse Reactions, Alerts Substance Reaction Status Criticality No Known Allergies Active No Inform ation Medications Medication Instructions Dosage Effective Dates (start - stop) Status Comments triamcinolone acetonide 0.1 % topical cream apply by topical route 2 times every week a thin layer to the affected area(s) Not Available - Active omeprazole 40 mg capsule,delayed release take 1 capsule by oral route 2 times every day before breakfast and dinner 40 MG - Active Valium 5 mg tablet take 1 tablet by oral route 1 - 2 times every day as needed 5 MG - Active Reglan 5 mg tablet take 1 tablet by oral route 4 times every day 30 minutes before meals and at bedtime 5 MG - Active OXYCODONE HCL (unknown strength) take 1 capsule by oral route every 6 hours as needed for pain Not Available - Active FAMOTIDINE (unknown strength) take 1 tablet by oral route every day Not Available - Active ondansetron HCl 4 mg tablet take 1 tablet by oral route 3 times every day 4 MG - Active Procedures Procedure Date Established Level 4 Offic/outpt E&m Estab Mod-hi 2 25 Subsqt Hosp-da E&m Minr Compl [id number] 5 Subsqt Hosp-da E&m Minr Compl 5 Subsqt Hosp-da E&m Minr Compl 5 Init Inpt Cons New/est Mod-hi 5 Ugi Endo; Dx W/wo Collec Specm 25 Moderate Sedation, Initial 15 minutes Ja Subsqt Hosp-da E&m Minr Compl 5 New Level 5 Advance Directives Directive Yes / No Effective Date File Name No Information Encounters Encounter Description Practice Location Reason(s) For Visit Diagnoses Date Provider Providers Copied on Encounter [facility], [address] [address], [place], [id number], [place] tel:[phone] [facility] No Information 5 [employer] Jody. [address] [place] [address], [facility] [address], [place], [id number] , [place]. tel: [phone] Established Level 4 [facility], [address] [address], [place], [id number], [place] tel:[phone] [facility] GI Symptoms or Concerns (chief complaint) Previous History Review (chief complaint) Esophageal dysphagiaIntracta ble nausea and vomitingGastrojej unal (GJ) tube in place 5 [employer] Jody. [address] [facility], [place], [id number] , [place]. [phone] Referring Provider: Referral Self, USE FOR SELF REFERRALS. [facility], [address] [address], [place], [id number], [place] tel:[phone] [facility] GI Symptoms or Concerns (chief complaint) No Information 5 [employer] Jody. [address] [facility], [place], [place], [id number] , [place]. tel: [phone] [facility], [address] [address], [place], [id number], [place] tel:[phone] [facility] Gastrojejunal (GJ) tube in place [employer] Jody. [address] [facility], [place], [place], [id number] , [place]. tel: [phone] Offic/outpt E&m Estab Mod-hi 2 [facility], [address] [address], [place], [id number], [place] tel:[phone] [facility] GI Symptoms or Concerns (chief complaint) Intractable nausea and vomitingUnintenti onal weight lossKlinefelter syndromeGastrojej unal (GJ) tube in place [employer] Jody. [address] [facility], [facility] [place], [id number] , [place]. tel: [phone] Referring Provider: Referral Self, USE FOR SELF REFERRALS. Subsqt Hosp-da E&m Minr Compl [facility], [address] [address], [facility] [place], [id number], [place] tel:[phone] [facility] No Information 5 [place] Cody. [address] [facility], [place], [place], [id number] , [place]. tel: [phone] Referring Provider: Nabila PANDYA, [facility] [facility] [address], [facility] [place], [address] . tel:[phone] Subsqt Hosp-da E&m Minr Compl [facility], [address] [address], [facility] [place], [id number], [place] tel:[phone] [facility] No Information [place] Rogers. [address] [facility], [place], [place], [address] , [place]. tel: [phone] Referring Provider: Nabila PANDYA, [facility] [address], [facility] [place], [address] . tel:[phone] [facility], [address] [address], [place], [id number], [place] tel:[phone] [facility] Unintentional weight lossIntractable nausea and vomiting 5 Rachel Roy . [address] [facility], [place], [id number] , [place]. tel: [phone] Init Inpt Cons New/est Mod-hi [facility], [address] [address], [place], [id number], [place] tel:[phone] [facility] No Information 5 Rachel Roy . [address] [facility], [place], [id number] , [place]. tel: [phone] Referring Provider: Nabila PANDYA, [address] [facility] [address], [place], [address] . tel:[phone] [facility] 5 [facility], [address] [address], [place], [id number], [place] tel:[phone] [facility] GI Symptoms or Concerns (chief complaint) Klinefelter syndromeEsophagea l dysphagiaIntracta ble nausea and vomitingUnintenti onal weight loss 5 Belinda John. [address] [facility], [facility] [address], [place], [id number] , [place]. tel: [phone] Referring Provider: Referral Self, USE FOR SELF REFERRALS. [facility], [address] [address], [place], [id number], [place] tel:[phone] [facility] No Information 4 Irineo Godwin. [address] [facility], [place], [address] , [place]. tel: [phone] Family History Family Member Type Diagnosis Age At Onset Problem Family history of Cancer, ga stric Father Problem Asthma Problem Family history of Asthma Father Problem Alcoholism Immunizations Vaccine Date Status Comments SARS-COV-2 (COVID-19) [...] Registry Payers Payer name Insurance type Covered libertarian ID Authoriza tion(s) No Information Social History Type Description Quantity Date Captured Comments Alcohol Use Details Unknown Caffeine Use Details Unknown Tobacco Use Status No Information Smoking Status No Information Sex Male Chief Complaint And Reason For Visit No Information Reason For Referral Reason For Referral No Information History Of Present Illness Encounter Date Complaint History Of Prese nt Illness GI Symptoms or Concerns Patient is a 24-year-old male who presents to [facility] clinic for follow-up on nausea, vomiting, and generalized GI concerns. He is seen today through virtual visit which she consented to. He verified he was alone in a private place prior to the start of our visit.I originally met with this patient on 03/14/2024 and prior to this he has been seen by our group during hospitalization and in clinic, please see prior notation. In review, patient was hospitalized for dysphagia, nausea, vomiting, and malnutrition. During hospitalization a GJ tube was placed and he was initiated on Reglan. He does think that with Reglan 5 Mg taken 4 times daily most all of his nausea and vomiting is resolved. Prior to 2 weeks ago he was tolerating at least 1000 jammie daily by mouth and still getting approximately 1800 jammie through feeding tube needs. He has not noted any tardive dyskinesia from the Reglan. He takes Zofran occasionally.Does state some increased constipation symptoms as he has needed to take increased doses of narcotics due to his UTI and pelvic pain symptoms, he takes MiraLAX as needed.He has a history of chronic urinary retention and frequent UTI. About 2 weeks ago he did get another UTI which she states normally flares all of his GI symptoms as well and so he has had worsening of symptoms in the last 2 weeks.He is also had worsening GERD in the last 2 weeks and started on omeprazole 40 Mg taken once daily in the mornings yesterday so is not yet noted any change in symptoms. He continues on famotidine 20 Mg twice daily. Denies any current dysphagia.Does state some granulation tissue around his tube site, I am not able to adequately assess this via virtual visit.Complete GI review of systems is negative unless noted above. Previous History Review Patient has past medical history of Klinefelter syndrome, Kamari-Danlos syndrome, anxiety, chronic pain, chronic urinary retention. Previous workup:CT abdomen and pelvis 03/11/2024: No acute abnormalities and appropriate positioning of GJ tube.EGD 03/03/2024: Normal throughout.Abdominal ultrasound 03/02/2024 n ormal throughoutAbdominal x-ray 03/03/2024 s mall amount of stool from the descending colon to the rectum.Placement of GJ tube 03/08/2024Lab work 03/02/2024 n ormal CBC and CMP GI Symptoms or Concerns GI Symptoms or Concerns Patient is a 23-year-old male who presents to clinic for follow-up on nausea, vomiting, and generalized GI concerns. Patient's mother is here for today's visit as well.Patient was last seen in clinic by my colleague on 03/02/2024 and also through hospitalization on 03/03/2024. In review, patient has longstanding history of difficulty gaining weight. Patient was discharged from the hospital earlier this afternoon and proceeded to come directly to this appointment. Hospitalization was for intractable nausea and vomiting which has improved with the initiation of Reglan. Currently has a GJ tube in place and he is noticing some pain around the tube site but no other abdominal pain. Tolerating tube feeds at current rate of 60 mL/h but would like to increase this so that he is only doing overnight feeds but has yet to establish with a dietitian since leaving the hospital. Since starting on Reglan has not had any flares of nausea vomiting and has been eating small amounts via oral route. Prior to hospitalization states that symptoms of nausea and vomiting did seem to be more intermittent and he did not follow any specific diets. Does state history of abnormal gastric emptying scan but I do not have this for my review. Does have some GERD symptoms at times and is currently utilizing famotidine as well as a PPI. States belching and regurgitation with re- chewing often.While hospitalized he did have some difficulty with constipation however was able to produce a large bowel movement yesterday. Prior to hospitalization no problems with underlying constipation or bowel regulation. Continues on MiraLAX 1 capful daily and Dulcolax as needed.No family history of GI pathology. Denies any NSAIDs, tobacco use, illicit drugs, or alcohol.Patient has past medical history of Klinefelter syndrome, Kamari-Danlos syndrome, anxiety, chronic pain, chronic urinary retention. Previous workup:CT abdomen and pelvis 03/11/2024: No acute abnormalities and appropriate positioning of GJ tube.EGD 03/03/2024: Normal throughout.Abdominal ultrasound 03/02/2024 n ormal throughoutAbdominal x-ray 03/03/2024 s mall amount of stool from the descending colon to the rectum.Placement of GJ tube 03/08/2024Lab work 03/02/2024 n ormal CBC and CMP GI Symptoms or Concerns 22-year- old male who presents for evaluation of intractable nausea and vomiting. This is a virtual clinic visit for which the patient has provided consent and confirmed that they are in a private location.Patient has history of Klinefelter syndrome, Kamari-Danlos syndrome, who presents for evaluation of worsening GI symptoms. He reports that he has always been underweight. In fact, he was thought to be anorexic during high school. He reports chronic variable symptoms of nausea, dysphagia, early satiety. Symptoms did not happen persistently over time however he was hospitalized back in October, and his hospital stay was complicated by urinary tract infection and since that time he felt that he has been going downhill. He has been requiring self cath since that time. He reports that his GI symptoms worsened however over the past week, he has been having intractable nausea and vomiting. He has not been able to keep anything down other than water. Even protein shakes did not stay down. He lost 6 pounds over the past week. He only had 1 small bowel movement over the past week but prior to that his bowel movements were normal. He tried ondansetron with no benefit. He went to the emergency department yesterday as [place], and had blood work that showed slightly increased hemoglobin, high calcium level, high albumin level, and reportedly he was orthostatic. He was prescribed metoclopramide and was discharged home. He continues to feel miserable at this time. He reports low-grade fever at 99. Urine analysis was normal.Reports that he did have swallow study evaluation in the past that was normal however he mentions that his GI symptoms comes and goes. He also reports gastric emptying study that was done years ago that showed mild delay and emptying with 20% residual at 4 hours. However he never experienced similar symptoms to what he has been experiencing now.Patient mentioned that his full battery will and he does not have a percussion tuner in his car therefore I was not able to obtain more history and proceeded with the recommendations. Functional Status Date Functional Assessmen t No Information Instructions Date Instruction Additional Infor rufus 1. Continue Reglan a s you are doing and continue to watch for side effects.2. I will get a message to [facility] to see if they have assigned a dietitian yet to your case. When you meet with your primary care provider tomorrow please let me know if they would like to manage your tube feeding or if they would like me to do that or just be on as a resource if needed.3. Continue MiraLAX and senna daily for bowel regulation4. I will try to obtain records from previous gastric emptying scan5. Follow-up in 2 months time but much sooner with any questions as well as changes. You can reach me via patient portal or at [phone] extension [phone]. Related to Intractable nausea and vomiting Recommended to repor t to the ER at [facility] in [place] which is the second closest hospital to him as he was discharged home from [facility] yesterday.I contacted the hospital ER and and provided report about the patient and recommended admission for further workup, IV hydration, GI consultation and considering enteral tube feeding if needed.Requested follow-up in our clinic in 2 weeks for working up his chronic symptoms. Related to Esophageal dysphagia Assessments Type Assessment Date No Information Patient Care Teams Name Effective Dates (start - stop) Status Members No Information
--- OUTSIDE RECORDS SUMMARY | 2024-07-13 08:53 | XMS_ITS | Continuity of Care Document ---
Author Organization [facility] Address [address] [address] [place] [address] Phone Care Team Providers Care Manufacturing Specialist Name Role Phone Obregon ELECTRICAL ENGINEERING INTERN, Jody Unavailable Unavailable Allergies, Adverse Reactions, Alerts [...] Diagnoses Date Provider Providers Copied on Encounter [facility] [place], [address] [address], [place], [id number], [place] tel:[phone] [facility] No Information 5 Obregon ELECTRICAL ENGINEERING INTERN Jody. [address] [place] [address], [facility] [address], [place], [address] , [place]. tel: [phone] Established Level 4 [facility] [place], [address] [address], [place], [address], [place] tel:[phone] [facility] GI Symptoms or Concerns (chief complaint) Previous History Review (chief complaint) Esophageal dysphagiaIntracta ble nausea and vomitingGastrojej unal (GJ) tube in place 5 [place] ELECTRICAL ENGINEERING INTERN Joyd. [address], [place], [address] , [place]. tel:[phone] Referring Provider: Referral Self, USE FOR SELF REFERRALS. [facility] [place], [address] [address], [place], [address], [place] tel:[phone] [facility] GI Symptoms or Concerns (chief complaint) No Information 5 [place] ELECTRICAL ENGINEERING INTERN Jody. [address], [address], [place], [place], [address] , [place]. tel: [phone] [facility] [place], [address] [address], [place], [address], [place] tel:[phone] [facility] Gastrojejunal (GJ) tube in place [place] ELECTRICAL ENGINEERING INTERN Jody. [address], [place], [place], [address] , [place]. tel: [phone] Offic/outpt E&m Estab Mod-hi 2 [facility] [place], [address] [address], [place], [address], [place] tel:[phone] [facility] GI Symptoms or Concerns (chief complaint) Intractable nausea and vomitingUnintenti onal weight lossKlinefelter syndromeGastrojej unal (GJ) tube in place [place] ELECTRICAL ENGINEERING INTERN Jody. [address], [address], [facility] [place], [address] , [place]. tel: [phone] Referring Provider: Referral Self, USE FOR SELF REFERRALS. Subsqt Hosp-da E&m Minr Compl [facility] [place], [address] [address], [facility] [place], [address], [place] tel:[phone] [facility] No Information 5 Edstrom [place] Cody. [address], [address], [place], [place], [address] , [place]. tel: [phone] Referring Provider: Nabila PANDYA, [facility] [address], [facility] [place], [address] . tel:[phone] Subsqt Hosp-da E&m Minr Compl [facility] [place], [address] [address], [facility] [place], [address], [place] tel:[phone] [facility] No Information [place] Rogers. [address], [place], [place], [address] , [place]. tel: [phone] Referring Provider: Nabila PANDYA, [facility] [address], [facility] [place], [address] . tel:[phone] [facility], [address] [address], [place], [address], [place] tel:[phone] [facility] Unintentional weight lossIntractable nausea and vomiting 5 Rachel Roy . [address], [address], [place], [address] , [place]. tel: [phone] Init Inpt Cons New/est Mod-hi [facility], [address] [address], [place], [address], [place] tel:[phone] [facility] No Information 5 Rachel Roy . [address], [address], [place], [address] , [place]. tel: [phone] Referring Provider: Nabila PANDYA, [address] [facility] [address], [place], [address] . tel:[phone] [facility] 5 [facility], [address] [address], [place], [address], [place] tel:[phone] [facility] GI Symptoms or Concerns (chief complaint) Klinefelter syndromeEsophagea l dysphagiaIntracta ble nausea and vomitingUnintenti onal weight loss 5 Belinda John. [address], [facility] 500, [place], [address] , [place]. tel: [phone] Referring Provider: Referral Self, USE FOR SELF REFERRALS. [facility], [address] [address], [place], [address], [place] tel:[phone] [facility] No Information 4 Irineo Godwin. [address], [address], [place], [address] , [place]. tel: [phone] Family History Family Member Type Diagnosis Age [...] Registry Payers Payer name Insurance type Covered green party ID Authoriza tion(s) No Information Social [...] is a 24-year-old male who presents to [facility] clinic for follow-up on nausea, vomiting, and [...] went to the emergency department yesterday as [place] Chelsey, and had blood work that showed [...] will and he does not have a fire officer in his car therefore I was not able to obtain more history and proceeded with the recommendations. Functional Status Date Functional Assessmen t No Information Instructions Date Instruction Additional Infor rufus 1. Continue Reglan a s you are doing and continue to watch for side effects.2. I will get a message to [facility] to see if they have assigned [...] reach me via patient portal or at [phone] extension 2935. Related to Intractable nausea and vomiting Recommended to repor t to the ER at [facility] in [place] which is the second closest hospital to him as he was discharged home from [facility] yesterday.I contacted the hospital ER and and [...]
--- OUTSIDE RECORDS SUMMARY | 2024-09-17 07:50 | XMS_ITS | Encounter Summary ---
Author Organization [facility] Address [address] [place] [address] Care Team Providers Care Mailing Manager Name Role Phone Eliana Guerra MD Primary Care Provider [phone] Reason for Visit * Reason Comments Follow-up Bilateral hips Encounter Details Date Type Department Care Team (Late st Contact Info) Description 09/17/2024 7:50 AM CDT Phone Visit Orthopedics at [address] [place] [address] Nilay Ceron MD [address] [facility], [place] [address] Bilateral hip pain (Primary Dx) Social History Tobacco Use Types Packs/Day Years Used Date Smoking Tobacco: Never Smokeless Tobacco: Never Alcohol Use Standard Drinks/Week Comments Yes 0 (1 standard drink = 0.6 oz pur e alcohol) occasional [facility] Utilities Answer Date Recorded In the past 12 months has e [employer], gas, oil, or water [employer] threatened to shut off services in [...] any time in the past 12 m [facility], were you homeless or living in a alf (including now)? 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 Haines at [facility]. He has had persistent pain and instability. He was seen at [facility] by Dr. Talbert and was spica casted which transiently alleviated his symptoms. He was also seen by my colleague Dr. Heath at [place] who had discussed a GUILLERMO but was not ultimately reccomended. He presents today for follow up. He states that the brace did not provide him enough stability and that it was loose fitting. When specifically asked to describe the pain [...] s/p right hip arthroscopy done at the [facility] with persistent symptoms Suggested Diagnostic/Therapeutic Plan: We [...] adult and specifically to his situation. I explained to the patientthat I would recommend against any hip preservation surgical intervention with casting, I also haveconcerns about risk of post operative complications with this. This was discussed with the patient,he will follow up with [facility]. A total of 20 minutes was spent on this visit in reviewing the chart, interpreting images, seeing and evaluating the patient, discussing treatment, coordinating care, and completing documentation. Nilay Ceron MD documented in this encounter Plan of Treatment Upcoming Encounters Date Type Department Care Team (Late st Contact Info) Description 11/06/2024 3:00 PM CDT Appointment Orthopedics at [address] [place] [address] Anahi Van MD [address] [place] [address] documented as of this encounter Visit Diagnoses Diagnosis Bilateral hip pain- Primary Pain in joint, pelvic region and thigh documented in this encounter Care Teams Mailing Manager Relationship Specialty Start Date End Date Eliana Guerra MD [address] [place] [address] PCP - General Family Practice 12/04/19 documented as of this encounter
--- OUTSIDE RECORDS SUMMARY | 2024-09-17 15:30 | XMS_ITS | Encounter Summary ---
Author Organization [facility] Address [address] [place] [id number] Care Team Providers Care Foot Orthopedist Name Role Phone Elsewhere, Pcp Primary Care Provider Unavailabl e Reason for Visit * Outpatient (Routine) - Closed Specialty Diagnoses / Procedures Referred By Ye lund Referred To Contact Urology Kate Egan P.A.-CMackenzie [address] [place] [phone] Phone: tel: fax: Kate Egan, P.A.-C. [address] [place] [phone] Phone: tel: fax: Referral ID Status Reason Start Date Expiration Date Visits Re quested Visits Authorized [id number] Closed 05/24/2024 11/23/2025 1 1 Encounter Details Date Type Department Care Team (Late st Contact Info) Description 09/17/2024 3:30 PM CDT Telemedicine Department of Urology in [place], [place] [address] [place] [address] [phone] Kate Egan P.A.-CMackenzie [address] [place] [phone] Retention Urinary (Primary Dx); Urgency Urinary; Dysuria; Dysfunction Pelvic Floor Male Social History Tobacco Use Types Packs/Day Years Used Date Smoking Tobacco: Never Passive Smoke Exposure: Past Smokeless Tobacco: Never Alcohol Use Standard Drinks/Week Comments Yes 1 (1 standard drink = 0.6 oz pur e alcohol) 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 - 09/17/2024 3:30 PM CDT SUBJECTIVE CHIEF COMPLAINT/PURPOSE FOR VISIT Follow-up visit Patient's visit is completed virtually, via video HISTORY OF PRESENT ILLNESS is a pleasant 24 y.o.male today. He returns today for recheck. Patient's medical historyis significant for Klinefelter syndrome, Kamari-Danlos syndrome, generalized anxiety disorder and chronic pain. Patient was evaluated in January of 2024 for urinary retention. Evaluation in August of 2023 demonstrated a postvoid residual of 750 mL. Patient has been managed with intermittent catheterization, has worked with pelvic floor physical therapy secondary to pelvic floor dysfunction and intermittently has required indwelling Garza catheter placement as he has significant orthopedic history including multiple surgeries, bracing and casts. He underwent 4 weeks of spica casting of the lefthip secondary to left hip pain. Patient is status post right hip arthroscopy in February of 2020. From a urologic perspective, he has been unable to coordinate completion of urodynamic study as previously recommended. He did undergo cystoscopy in June of 2024 which demonstrated evidence of inflammatory change consistent with cystitis. Patient has had difficulties with recurrent urinary tract infections and states that symptoms of UTI typically include malodorous urine, urinary urgency, itchiness and most recently full body aches. He has been afebrile. As mentioned, patient has chronic pain and states he typically experiences ???pain everywhere?? typically a 2/10. He states in the setting of infection this can increase to 5/10. Patient has not had any difficulty with passage of the cathet er, however states when his pain increases his wrist dexterity can be limited. He has required intermittent indwelling Garza catheter placement secondary to mobility and dexterity issues. Patient hashad difficulty with tolerability of the indwelling Garza catheter secondary to bladder spasms, however. He is currently on self catheterization and typically catheterize is 2-3 times daily. In order to void he does require straining and at times may need to sit for 10 minutes. He does admit to someoverflow incontinence at times. If he catheterizes 3 times daily, he is typically dry between catheterizations. Does experience some nighttime incontinence at times. Patient has most recently been on a 15 day course of ciprofloxacin. He states that despite finishing this course last week he has persistent urinary urgency and body aches. He is returning to [facility] tomorrow for orthopedic follow-up in request updated urine culture be obtained. REVIEW OF SYSTEMS Genitourinary: Positive for incontinence, difficulty urinating and urgency. Musculoskeletal: Positive for pain or stiffness in the joints. Lower Urinary Sx: difficulty urinating (+) MEDICAL HISTORY Medical History[1] Surgical History[2] OBJECTIVE LABORATORY Per review of outside urine culture results most recent urine cultures from 08/20/2024 demonstratedmultiple organisms including Klebsiella and Citrobacter. Patient has had increasing resistant organisms. On 07/17/2024 E coli and Citrobacter grew out on urine culture which were both multi-drug resistant. IMAGING Requested outside CT abdomen pelvis without contrast from 03/11/2024. This was completed at [place]. On personal review, kidneys appeared normal with no evidence of hydronephrosis. No stones identified. Bladder is distended. ASSESSMENT / PLAN #1 Urinary retention, managed on CIC #2 Recurrent urinary tract infections #3 Pelvic floor dysfunction #4 Chronic pain #5 Kamari Danlos syndrome #6 Klinefelter syndrome I had the pleasure of meeting with in virtual follow-up today. Discussion was held with the patient regarding his urinary symptoms. Encouraged Paramjit to complete the urodynamic study is this would help us to further evaluate his detrusor function. Previously, it was unclear if his large postvoid residuals were related to impaired bladder contractility versus pelvic floor dysfunction or perhaps a combination of both. Recent cystoscopy demonstrated no evidence of urethral stricture or obstruction present. Encouraged him to increase his catheterization schedule as I do believe infrequent catheterization has increased his risk for recurrent urinary infections. We did discuss that he has history of resistant organisms and therefore I would not recommend the use of antibiotic prophylaxis in regards to reducing recurrence risk. We did briefly discuss potential use of methenamine 1 g twice daily plus vitamin-C in attempt to reduce recurrence risk of symptomatic UTI. Discussed with the patient the importance of only treating bacteriuria in the setting of symptoms as it would not beeager to overuse antibiotics in the setting of asymptomatic bacteriuria. If he were to consider theuse of methenamine and vitamin-C, would plan for a period of 6 months duration in attempt to break the cycle of UTIs, reduce recurrence risk and then plan for a drug holiday. Patient understands that with acidification of the urine, some patients can experience irritation or a burning sensation. At times he has had intermittent placement of an indwelling Garza catheter secondary to mobility and orthopedic issues. Often times when an indwelling Garza catheter is placed, he will experience significant bladder spasms. Oxybutynin has not been all that effective for him. Discussed with the patient that I would prefer not utilize oxybutynin due to potential side effect profile including dry mouth, constipation and most concerning potential cognitive side effects. Should he require indwellingFoley catheter placement in the future, would prefer trospium as an alternative agent for management of bladder spasms. Discussed with the patient the importance of recreating normal bladder emptying and the fact that this would best be accomplished via intermittent catheterization on a regular schedule. If he is unable to void on his own, he may require catheterization 5-6 times daily. Again, completion of urodynamic study would be helpful to assess his bladder contractility as this can aid us in plan for long-term management. Should he continue to have problems with recurrent symptomatic urinary tract infections with multidrug resistant organisms, may need to involve our infectious disease colleagues as well. Patient in agreement with the plan. All questions addressed, patient expressed understanding. Total time: 40 min Signed by: Kate Egan P.A.-C. 09/17/2024 5:16 PM CDT [1] Past Medical History: Diagnosis Date Complication Anesthesia Initial Gastroesophageal Reflux Disease NOS Headache Unspecified Loss Visual Osteopenia Other Injury Of Unspecified Body Region broken scaphoid Other Specified Health Status Urinary retention and gj tube Pectus Excavatum Scoliosis [2] Past Surgical History: Procedure Laterality Date ARTHROSCOPY HIP Right 02/13/2020 Procedure: Hip Scope with Capsulorrhaphy; Surgeon: Zoltan Haines M.D.; Location: [place] [address] OR ARTHROSCOPY OSTEOPLASTY FEMORAL NECK HIP Right 02/13/2020 Procedure: Osteoplasty Femoral Neck and Acetabular Rim.; Surgeon: Haines, Zoltan A, M.D.; Location: [facility] OR OTHER [...] Jose Crawford M.D.; Location:[facility] OR documented in this encounter Plan of Treatment Upcoming Encounters Date Type Department Care Team (Latest Contact Info) Description 10/31/2024 9:15 AM CDT Clinical Communication Virtual Review in [address] [phone] 11/01/2024 9:00 AM CDT Appointment Department of Radiology, [facility], [address] [phone] Candida Lucero P.A.-CMackenzie [address] [place] [phone] Discharge Disposition: Home or Self Care 11/01/2024 9:45 AM CDT Appointment Department of Radiology, [facility], in [address] [phone] Candida Lucero, P.A.-CMackenzie [address] [place] [phone] 11/01/2024 1:00 PM CDT Telemedicine Department of Physical Medicine and Rehabilitation in [address] [phone] David Weir D.O. [address] [place] [phone] 11/13/2024 2:30 PM CDT Office Visit Department of Sports Medicine in [place], [place] [address] [place] [phone] Ahsan Talbert M.D., Ph.D. [address] [place] [phone] 12/12/2024 8:00 AM TRENCH TRIMMER [employer]INE Clinical Support [facility] in [address] [phone] Hamilton Beebe, Ph.D., L.P. [address] [place] [phone] 12/13/2024 8:00 AM TRENCH TRIMMER FINE Clinical Support [facility] in [address] [phone] Hamilton Beebe, Ph.D., L.P. [address] [place] [phone] 12/14/2024 8:00 AM TRENCH TRIMMER FINE Clinical [facility] in [address] [phone] Hamilton Beebe, Ph.D., L.P. [address] [place] [phone] 12/17/2024 8:00 AM TRENCH TRIMMER FINE Clinical [facility] in [address] [phone] Hamilton Beebe, Ph.D., L.P. [address] [place] [phone] 12/18/2024 8:00 AM TRENCH TRIMMER FINE Clinical [facility] in [address] [phone] Hamilton Beebe, Ph.D., L.P. [address] [place] [address] [phone] 12/19/2024 8:00 AM TRENCH TRIMMER FINE Clinical [facility] in [address] [phone] Hamilton Beebe, Ph.D., L.P. [address] [place] [address] [phone] 12/20/2024 8:00 AM TRENCH TRIMMER FINE Clinical [facility] in [address] [phone] Hamilton Beebe, Ph.D., L.P. [address] [place] [phone] 12/21/2024 8:00 AM TRENCH TRIMMER FINE Clinical [facility] in [address] [phone] Hamilton Beebe, Ph.D., L.P. [address] [place] [address] [phone] 12/24/2024 8:00 AM TRENCH TRIMMER FINE Clinical [facility] in [address] [phone] Hamilton Beebe, Ph.D., L.P. [address] [place] [phone] 12/25/2024 8:00 AM TRENCH TRIMMER FINE Clinical [facility] in [address] [phone] Hamilton Beebe, Ph.D., L.P. [address] [place] [phone] 12/26/2024 8:00 AM TRENCH TRIMMER FINE Clinical [facility] in [address] [phone] Hamilton Beebe, Ph.D., L.P. [address] [place] [phone] 12/27/2024 8:00 AM TRENCH TRIMMER FINE Clinical [facility] in [address] [phone] Hamilton Beebe, Ph.D., L.P. [address] [place] [phone] 12/28/2024 8:00 AM TRENCH TRIMMER FINE Clinical [facility] in [address] [phone] Hamilton Beebe, Ph.D., L.P. [address] [place] [phone] 12/31/2024 8:00 AM TRENCH TRIMMER FINE Clinical [facility] in [address] [phone] Hamilton Beebe, Ph.D., L.P. [address] [place] [phone] 01/01/2025 8:00 AM TRENCH TRIMMER FINE Clinical [facility] in [address] [phone] Hamilton Beebe, Ph.D., L.P. [address] [place] [phone] 01/02/2025 8:00 AM TRENCH TRIMMER FINE Clinical Support [facility] in [place], [place] [address] [place] [phone] Hamilton Beebe, Ph.D., L.P. [address] [place] [phone] 01/07/2025 1:30 PM TRENCH TRIMMER FINE Telemedicine Department of Urology in [place], [place] [address] [place] [phone] Danielle Pitt D.O. [address] [place] [phone] Scheduled Orders Name Type Priority Associated Diagnoses Orde r Schedule Bacterial Culture, Aerobic + Susceptibility, Urine Microbiology Routine Urgency Urinary Dysuria Expected: 09/18/2024, Expires: 12/18/2025 Urinalysis, with Microscopic: Urine, Straight Catheter Lab Routine Urgency Urinary Dysuria Expected: 09/18/2024, Expires: 12/18/2025 documented as of this encounter Visit Diagnoses Diagnosis Retention Urinary- Primary Urgency Urinary Dysuria Dysfunction Pelvic Floor Male documented in this encounter Additional Health Concerns Assessment Noted Time PHQ-9 Depression Total Score: 5 07/07/19 24 9:17 PM CDT documented as of this encounter Care Teams Foot Orthopedist Relationship Specialty Start Date End Date Elsewhere, Pcp PCP - General Internal Medicine 05/22/18 documented as of this encounter
--- OUTSIDE RECORDS SUMMARY | 2024-09-18 08:45 | XMS_ITS | Encounter Summary ---
Author Organization [facility] Address [address] [place] [address] Care Team Providers Care Mat Gauger Name Role Phone Elsewhere, Pcp Primary Care Provider Unavailabl e Reason for Visit * Outpatient (Routine) - Closed Specialty Diagnoses / Procedures Referred By Ye lund Referred To Contact Orthopedic Surgery Mike Salomon Jr., P.A.-C. [address] [place] [phone] Phone: tel: fax: Jose Crawford M.D. [address] [place] [phone] Phone: tel: fax: Referral ID Status Reason Start Date Expiration Date Visits Re quested Visits Authorized [id number] Closed 07/23/2024 01/22/2026 1 1 Encounter Details Date Type Department Care Team (Late st Contact Info) Description 09/18/2024 8:45 AM CDT Office Visit Department of Orthopedic Surgery in [place], [place] [address] [place] [address] [phone] Jose Crawford M.D. 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 I have a [facility] place to live 05/29/2024 Education Answer Date Recorded What is the highest level of school you have completed or the highest degree you have received? Some college, no degree 05/24/2020 Sex and Gender Information Value Date Recorded Sex Assigned at Male 10/29/2020 12:38 PM CDT Legal Sex Male 1:45 PM CREDIT RISK ANALYST Gender Identity Male 07/15/2019 8:59 AM [...] in PM&R. 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 I wished him well on this. I strongly encouraged him not to cast for his shoulder instability with a shoulder spica. If this does become a problem for him, I told him there is one person in the [facility] who would perhaps be able to provide him some shoulder relief in [place], but he says heis unable to travel at this time. I answered all of his questions today. He has our contact informat [facility]. He should feel free to reach out should he have further questions or concerns. documented in this encounter Plan of Treatment Upcoming Encounters Date Type Department Care Team (Latest Contact Info) Description 10/31/2024 9:15 AM CDT Clinical Communication Virtual Review in [place], [place] 200 [place] [phone] 11/01/2024 9:00 AM CDT Appointment Department of Radiology, [facility], in [place], [place] [address] [place] [phone] Candida Lucero P.A.-C. [address] [place] [address] [phone] Discharge Disposition: Home or Self Care 11/01/2024 9:45 AM CDT Appointment Department of Radiology, [facility], in [place], [place] [address] [place] [phone] Candida Lucero P.A.-C. [address] [place] [phone] 11/01/2024 1:00 PM CDT Telemedicine Department of Physical Medicine and Rehabilitation in [place], [place] [address] [place] [phone] David Weir D.O. [address] [place] [phone] 11/13/2024 2:30 PM CDT Office Visit Department of Sports Medicine in [place], [place] [address] [place] [phone] Ahsan Talbert M.D., Ph.D. [address] [place] [phone] 12/12/2024 8:00 AM CREDIT RISK ANALYST [facility] in [address] [phone] Hamilton Beebe, Ph.D., L.P. [address] [place] [phone] 12/13/2024 8:00 AM CREDIT RISK ANALYST Clinical [facility] in [address] [phone] Hamilton Beebe, Ph.D., L.P. [address] [place] [phone] 12/14/2024 8:00 AM CREDIT RISK ANALYST Clinical [facility] in [address] [phone] Hamilton Beebe, Ph.D., L.P. [address] [place] [address] [phone] 12/17/2024 8:00 AM CREDIT RISK ANALYST Clinical [facility] in [address] [phone] Hamilton Beebe, Ph.D., L.P. [address] [place] [address] [phone] 12/18/2024 8:00 AM CREDIT RISK ANALYST Clinical [facility] in [address] [phone] Hamilton Beebe, Ph.D., L.P. [address] [place] [phone] 12/19/2024 8:00 AM CREDIT RISK ANALYST Clinical [facility] in [address] [phone] Hamilton Beebe, Ph.D., L.P. [address] [place] [phone] 12/20/2024 8:00 AM CREDIT RISK ANALYST Clinical [facility] in [address] [phone] Hamilton Beebe, Ph.D., L.P. [address] [place] [phone] 12/21/2024 8:00 AM CREDIT RISK ANALYST Clinical [facility] in [address] [phone] Hamilton Beebe, Ph.D., L.P. [address] [place] [phone] 12/24/2024 8:00 AM CREDIT RISK ANALYST Clinical [facility] in [address] [phone] Hamilton Beebe, Ph.D., L.P. [address] [place] [phone] 12/25/2024 8:00 AM CREDIT RISK ANALYST Clinical [facility] in [address] [phone] Hamilton Beebe, Ph.D., L.P. [address] [place] [phone] 12/26/2024 8:00 AM CREDIT RISK ANALYST Clinical [facility] in [address] [phone] Hamilton Beebe, Ph.D., L.P. [address] [place] [phone] 12/27/2024 8:00 AM CREDIT RISK ANALYST Clinical [facility] in [address] [phone] Hamilton Beebe, Ph.D., L.P. [address] [place] [phone] 12/28/2024 8:00 AM CREDIT RISK ANALYST Clinical [facility] in [address] [phone] Hamilton Beebe, Ph.D., L.P. [address] [place] [phone] 12/31/2024 8:00 AM CREDIT RISK ANALYST Clinical [facility] [place] [address] [place] [address] Hamilton Beebe, Ph.D., L.P. [address] [place] [phone] 01/01/2025 8:00 AM CREDIT RISK ANALYST Clinical [facility] in [address] [phone] Hamilton Beebe, Ph.D., L.P. [address] [place] [phone] 01/02/2025 8:00 AM CREDIT RISK ANALYST Clinical [facility] in [address] [phone] Hamilton Beebe, Ph.D., L.P. [address] [place] [phone] 01/07/2025 1:30 PM CREDIT RISK ANALYST Telemedicine Department of Urology in [place], [place] [address] [place] [phone] Danielle Pitt D.O. [address] [place] [phone] documented as of this encounter Visit Diagnoses Diagnosis Pain Wrist Left- Primary documented in this encounter Additional Health Concerns Assessment Noted Time PHQ-9 Depression Total Score: 5 07/07/19 24 9:17 PM CDT documented as of this encounter Care Teams Mat Gauger Relationship Specialty Start Date End Date Elsewhere, Pcp PCP - General Internal Medicine 05/22/18 documented as of this encounter
--- OUTSIDE RECORDS SUMMARY | 2024-10-07 11:40 | XMS_ITS | Encounter Summary ---
Author Organization [facility] Address [address] [place] [address] Care Team Providers Care Medical/Surgery Registered Nurse Name Role Phone Eliana Guerra MD Primary Care Provider [phone] Reason for Visit * Reason Comments Forms/Letter Entered automaticall y based on patient selection in [facility]. Encounter Details Date Type Department Care Team (Late st Contact Info) Description 10/07/2024 11:40 AM CDT E-Visit Orthopedics at [address] [address] Nilay Ceron MD [address] [facility] [place] [address] Chief Comp: Forms/Letter Social History Tobacco Use Types Packs/Day Years Used Date Smoking Tobacco: Never Smokeless Tobacco: Never Alcohol Use Standard Drinks/Week Comments Yes 0 (1 standard drink = 0.6 oz pur e alcohol) occasional [facility] Utilities Answer Date Recorded In the past 12 months has [employer], gas, oil, or water [employer] threatened to shut off services in your [...] any time in the past [address] [facility], were you homeless or living in a prison (including now)? 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 Letter created per patient request. Addy Saxena 10/09/2024 10:21 AM documented in this encounter Plan of Treatment Upcoming Encounters Date Type Department Care Team (Late st Contact Info) Description 11/06/2024 3:00 PM CDT Appointment Orthopedics at [address] [place] [address] Anahi Van MD [address] [place] [address] documented as of this encounter Visit Diagnoses Not on filedocumented in this encounter Care Teams Medical/Surgery Registered Nurse Relationship Specialty Start Date End Date Eliana Guerra MD [address] [place] [address] PCP - General Family Practice 12/04/19 documented as of this encounter
--- OUTSIDE RECORDS SUMMARY | 2024-10-10 14:30 | XMS_ITS | Encounter Summary ---
Author Organization [facility] Address [address] [place] [address] Care Team Providers Care Leather Production Artisan Name Role Phone Elsewhere, Pcp Primary Care Provider Unavailabl e Reason for Visit * Outpatient (Routine) - Closed Specialty Diagnoses / Procedures Referred By Ye lund Referred To Contact Diagnoses Retention Urinary Procedures URO Urodynamic study (with flow) Kate Egan P.A.-C. [address] [place] [phone] Phone: tel: fax: [facility] Referral ID Status Reason Start Date Expiration Date Visits Re quested Visits Authorized [id number] Closed 05/24/2024 08/24/2025 1 1 Encounter Details Date Type Department Care Team (Late st Contact Info) Description 10/10/2024 2:30 PM CDT Procedure visit Department of Urology in [place], [place] [address] [place] [phone] Kate Egan P.A.-C. [address] [place] [address] [phone] Tato Pedroza M.D. 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 I have a [facility] place to live 05/29/2024 Education Answer Date Recorded What is the highest level of school you have completed or the highest degree you have received? Some college, no degree 05/24/2020 Sex and Gender Information Value Date Recorded Sex Assigned at Male 10/29/2020 12:38 PM CDT Legal Sex Male 1:45 PM HOME MANAGER Gender Identity Male 07/15/2019 8:59 AM [...] prior to study: 2 ml's Catheter: 6 Kuwaiti Position: Sitting Fill rate: 25 ml/min EMG [...] AM CDT Clinical Communication Virtual Review in [place], [place] [address] [place] [phone] 11/01/2024 9:00 AM CDT Appointment Department of Radiology, [facility], in [place], [place] [address] [place] [address] Candida Lucero P.A.-C. [address] [place] [phone] Discharge Disposition: Home or Self Care 11/01/2024 9:45 AM CDT Appointment Department of Radiology, [facility], in [place], [place] [address] [place] [address] Candida Lucero P.A.-C. [address] [place] [phone] 11/01/2024 1:00 PM CDT Telemedicine Department of Physical Medicine and Rehabilitation in [place], [place] [address] [place] [phone] David Weir D.O. [address] [place] [phone] 11/13/2024 2:30 PM CDT Office Visit Department of Sports Medicine in [place], [place] [address] [place] [phone] Ahsan Talbert M.D., Ph.D. [address] [place] [phone] 12/12/2024 8:00 AM HOME MANAGER [facility] in [address] [phone] Hamilton Beebe, Ph.D., L.P. [address] [place] [phone] 12/13/2024 8:00 AM HOME MANAGER Clinical Support [facility] in [place] [phone] [place] [phone] Hamilton Beebe, Ph.D., L.P. [address] [place] [phone] 12/14/2024 8:00 AM HOME MANAGER Clinical [facility] in [address] [phone] Hamilton Beebe, Ph.D., L.P. [address] [place] [phone] 12/17/2024 8:00 AM HOME MANAGER Clinical [facility] in [address] [phone] Hamilton Beebe, Ph.D., L.P. [address] [place] [phone] 12/18/2024 8:00 AM HOME MANAGER Clinical [facility] in [address] [phone] Hamilton Beebe, Ph.D., L.P. [address] [place] [phone] 12/19/2024 8:00 AM HOME MANAGER Clinical [facility] in [address] [phone] Hamilton Beebe, Ph.D., L.P. [address] [place] [phone] 12/20/2024 8:00 AM HOME MANAGER Clinical [facility] in [address] [phone] Hamilton Beebe, Ph.D., L.P. [address] [place] [phone] 12/21/2024 8:00 AM HOME MANAGER Clinical [facility] in [address] [phone] Hamilton Beebe, Ph.D., L.P. [address] [place] [address] [phone] 12/24/2024 8:00 AM HOME MANAGER Clinical [facility] in [address] [phone] Hamilton Beebe, Ph.D., L.P. [address] [place] [phone] 12/25/2024 8:00 AM HOME MANAGER Clinical [facility] in [address] [phone] Hamilton Beebe, Ph.D., L.P. [address] [place] [phone] 12/26/2024 8:00 AM HOME MANAGER Clinical [facility] in [address] [phone] Hamilton Beebe, Ph.D., L.P. [address] [place] [phone] 12/27/2024 8:00 AM HOME MANAGER Clinical [facility] in [address] [phone] Hamilton Beebe, Ph.D., L.P. [address] [place] [phone] 12/28/2024 8:00 AM HOME MANAGER Clinical [facility] in [address] [phone] Hamilton Beebe, Ph.D., L.P. [address] [place] [address] [phone] 12/31/2024 8:00 AM HOME MANAGER Clinical [facility] in [address] [phone] Hamilton Beebe, Ph.D., L.P. [address] [place] [phone] 01/01/2025 8:00 AM HOME MANAGER Clinical Support [facility] in [place], [place] [address] [place] [phone] Hamilton Beebe, Ph.D., L.P. [address] [place] [address] [phone] 01/02/2025 8:00 AM [facility] Clinical Support [facility] in [address] [phone] Hamilton Beebe, Ph.D., L.P. [address] [place] [phone] 01/07/2025 1:30 PM HOME MANAGER Telemedicine Department of Urology in [place], [place] [address] [place] [phone] Danielle Pitt D.O. [address] [place] [phone] Scheduled Orders Name Type Priority Associated Diagnoses [...] documented as of this encounter Care Teams Leather Production Artisan Relationship Specialty Start Date End Date Elsewhere, Pcp PCP - General Internal Medicine 05/22/18 documented as of this encounter
--- OUTSIDE RECORDS SUMMARY | 2024-10-22 11:30 | XMS_ITS | Encounter Summary ---
Author Organization [facility] Address [address] [place] [address] Care Team Providers Care Pet Counselor Name Role Phone Elsewhere, Pcp Primary Care Provider Unavailabl e Reason for Referral * Outpatient (Routine) - Authorized Specialty Diagnoses / Procedures Referred By Ye lund Referred To Contact Urology Diagnoses Retention Urinary Kate Egan P.A.-C. [address] [place] [phone] Phone: tel: fax: [facility] Referral ID Status Reason Start Date Expiration Date V isits Requested Visits Authorized [id number] Authorized 10/22/2024 04/23/2026 [address] Pitt Reason for Visit * Outpatient (Routine) - Closed Specialty Diagnoses / Procedures Referred By Ye lund Referred To Contact Urology Kate Egan P.A.-C. [address] [place] [address] Phone: tel: fax: Kate Egan P.A.-C. [address] [place] [address] Phone: tel: fax: Referral ID Status Reason Start Date Expiration Date Visits Re quested Visits Authorized [id number] Closed 10/10/2024 04/11/2026 1 1 Encounter Details Date Type Department Care Team (Late st Contact Info) Description 10/22/2024 11:30 AM CDT Telemedicine Department of Urology in [place], [place] [address] [place] [address] Kate Egan P.A.-C. 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 I have a [facility] place to live 05/29/2024 Education Answer Date Recorded What is the highest level of school you have completed or the highest degree you have received? Some college, no degree 05/24/2020 Sex and Gender Information Value Date Recorded Sex Assigned at Male 10/29/2020 12:38 PM CDT Legal Sex Male 1:45 PM MOBILE DEVELOPER Gender Identity Male 07/15/2019 8:59 AM CDT [...] AM CDT Clinical Communication Virtual Review in [place], [place] 200 [place] [address] 11/01/2024 9:00 AM CDT Appointment Department of Radiology, [place], [place] [address] [place] [phone] Candida Lucero P.A.-CMackenzie [address] [place] [phone] Discharge Disposition: Home or Self Care 11/01/2024 9:45 AM CDT Appointment Department of Radiology, [facility], [place], [place] [address] [place] [phone] Candida Lucero P.A.-C. [address] [place] [phone] 11/01/2024 1:00 PM CDT Telemedicine Department of Physical Medicine and Rehabilitation in [place], [place] [address] [place] [phone] David Weir D.O. [address] [place] [phone] 11/13/2024 2:30 PM CDT Office Visit Department of Sports Medicine in [place], [place] [address] [place] [phone] Ahsan Talbert M.D., Ph.D. [address] [place] [phone] 12/12/2024 8:00 AM MOBILE DEVELOPER Clinical Support [facility] in [address] [phone] Hamilton Beebe, Ph.D., L.P. [address] [place] [phone] 12/13/2024 8:00 AM MOBILE DEVELOPER Clinical [facility] in [address] [phone] Hamilton Beebe, Ph.D., L.P. [address] [place] [phone] 12/14/2024 8:00 AM MOBILE DEVELOPER Clinical Support [facility] in [address] [phone] Hamilton Beebe, Ph.D., L.P. [address] [place] [phone] 12/17/2024 8:00 AM MOBILE DEVELOPER Clinical Support [facility] in [address] [phone] Hamilton Beebe, Ph.D., L.P. [address] [place] [phone] 12/18/2024 8:00 AM MOBILE DEVELOPER Clinical Support [facility] in [address] [phone] Hamilton Beebe, Ph.D., L.P. [address] [place] [phone] 12/19/2024 8:00 AM MOBILE DEVELOPER Clinical [facility] in [address] [phone] Hamilton Beebe, Ph.D., L.P. [address] [place] [phone] 12/20/2024 8:00 AM MOBILE DEVELOPER Clinical [facility] in [address] [phone] Hamilton Beebe, Ph.D., L.P. [address] [place] [phone] 12/21/2024 8:00 AM MOBILE DEVELOPER Clinical [facility] in [address] [phone] Hamilton Beebe, Ph.D., L.P. [address] [place] [phone] 12/24/2024 8:00 AM MOBILE DEVELOPER Clinical [facility] in [address] [phone] Hamilton Beebe, Ph.D., L.P. [address] [place] [phone] 12/25/2024 8:00 AM MOBILE DEVELOPER Clinical [facility] in [address] [phone] Hamilton Beebe, Ph.D., L.P. [address] [place] [phone] 12/26/2024 8:00 AM MOBILE DEVELOPER Clinical [facility] in [address] [phone] Hamilton Beebe, Ph.D., L.P. [address] [place] [phone] 12/27/2024 8:00 AM MOBILE DEVELOPER Clinical [facility] in [address] [phone] Hamilton Beebe, Ph.D., L.P. [address] [place] [phone] 12/28/2024 8:00 AM MOBILE DEVELOPER Clinical Support [facility] in [address] [phone] Hamilton Beebe, Ph.D., L.P. [address] [place] [phone] 12/31/2024 8:00 AM MOBILE DEVELOPER Clinical [facility] in [address] [phone] Hamilton Beebe, Ph.D., L.P. [address] [place] [phone] 01/01/2025 8:00 AM MOBILE DEVELOPER Clinical Support [facility] in [place], [place] [address] [place] [phone] Hamilton Beebe, Ph.D., L.P. [address] [place] [phone] 01/02/2025 8:00 AM MOBILE DEVELOPER Clinical Support [facility] in [place], [place] [address] [place] [address] Hamilton Beebe, Ph.D., L.P. [address] [place] [phone] 01/07/2025 1:30 PM MOBILE DEVELOPER Telemedicine Department of Urology in [place], [place] [address] [place] [phone] Danielle Pitt D.O. [address] [place] [phone] Scheduled Referrals Name Type Priority Associated Diagnoses [...] documented as of this encounter Care Teams Pet Counselor Relationship Specialty Start Date End Date Elsewhere, Pcp PCP - General Internal Medicine 05/22/18 documented as of this encounter
--- OUTSIDE RECORDS SUMMARY | 2024-10-30 01:08 | XMS_ITS | Encounter Summary ---
Author Organization [employer] Address [address] [place] [address] Care Team Providers Care Tray Line Supervisor Name Role Phone Eliana Guerra MD Primary Care Provider [phone] Encounter Details Date Type Department Care Team (Late st Contact Info) Description 10/11/2024 Notes/Orders [facility] at [address] [place] [phone] Nilay Ceron MD [address] [place] [address] Social History Tobacco Use Types Packs/Day Years Used Date Smoking Tobacco: Never Smokeless Tobacco: Never Alcohol Use Standard Drinks/Week Comments Yes 0 (1 standard drink = 0.6 oz pur e alcohol) occasional [facility] Utilities Answer Date Recorded In the past 12 months has [facility] [employer], gas, oil, or water [employer] threatened to shut off services in your [...] any time in the past 12 m [facility], were you homeless or living in a jail (including now)? 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 Addy Saxena 10/11/2024 2:01 PM documented in this encounter Plan of Treatment Upcoming Encounters Date Type Department Care Team (Late st Contact Info) Description 11/06/2024 3:00 PM CDT Appointment Orthopedics at [address] [place] [address] Anahi Van MD [address] [place] [phone] documented as of this encounter Visit Diagnoses Not on filedocumented in this encounter Care Teams Tray Line Supervisor Relationship Specialty Start Date End Date Eliana Guerra MD [address] [place] [address] PCP - General Family Practice 12/04/19 documented as of this encounter
--- OUTSIDE RECORDS SUMMARY | 2024-10-30 01:08 | XMS_ITS | Encounter Summary ---
Author Organization [facility] Address [address] [place] [address]. [place] [address] Care Team Providers Care Motor Pool Clerk Name Role Phone Kei Eugene MD Unavailable [phone] Eliana Guerra MD Primary Care Provider [phone] Eliana Guerra MD Unavailable [phone] Eliana Guerra MD Unavailable [phone] Unavailable Unavailable Jody Obregon APRN TRAFFIC PERSONNEL SUPERVISOR Unavailable [phone] Efrain Crow PA-C Unavailable [phone] Encounter Details Date Type Department Care Team (Late st Contact Info) Description 08/17/2024 Home Infusion [facility] [address] [place] [phone] Francine Duval LPN Social History Tobacco [...] in an abandoned building, in an overnight fci, or couch-surfing.) Yes 03/03/2024 Are you worried [...] on file Legal Sex Male 9:18 AM 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 Gender Identity Not on file Sexual Orientation Not on file documented as of this encounter Plan of Treatment Scheduled Procedures Name Priority Associated Diagnoses Date/Ti me SURGICAL EXTRACTION, TOOTH Chronic pericoronitis documented as of this encounter Visit Diagnoses Not on filedocumented in this encounter Care Teams Motor Pool Clerk Relationship Specialty Start Date End Date Eliana Guerra MD [facility] [place] [address] PCP - General Family Medicine 03/04/24 Kei Eugene MD [address] [place], [place] [address] Assigned Musculoskeletal Provider 03/01/24 Eliana Guerra MD [address] [address] Home Infusion Following Provider Family Medicine 03/11/24 Eliana Guerra MD [facility] [address] [place] [address] Home Infusion Following Provider Family Medicine 03/14/[address] [facility] Registered Dietitian Dietitian 03/14/24 Jody Obregon APRN TRAFFIC PERSONNEL SUPERVISOR Home Infusion Following Provider 03/14/24 Efrain Crow PA-C [facility] [address] [address] Home Infusion Following Provider Gastroenterology 06/25/24 documented as of this encounter
--- OUTSIDE RECORDS SUMMARY | 2024-10-30 01:09 | XMS_ITS | Encounter Summary ---
Author Organization [facility] Address [address] [place] [address] Care Team Providers Care Protective Service Specialist Name Role Phone Elsewhere, Pcp Primary Care Provider Unavailabl e Reason for Referral * Outpatient (Routine) - Closed Specialty Diagnoses / Procedures Referred By Ye lund Referred To Contact Urology Kate Egan P.A.-C. [address] [place] [phone] Phone: tel: fax: Kate Egan P.A.-C. [address] [place] [phone] Phone: tel: fax: Referral ID Status Reason Start Date Expiration Date Visits Re quested Visits Authorized [id number] Closed 10/10/2024 04/11/2026 1 1 Encounter Details Date Type Department Care Team (Late st Contact Info) Description 10/10/2024 Orders Only Department of Urology in [place], [place] [address] [place] [phone] Kate Egan P.A.-C. 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 I have a [facility] place to live 05/29/2024 Education Answer Date Recorded What is the highest level of school you have completed or the highest degree you have received? Some college, no degree 05/24/2020 Sex and Gender Information Value Date Recorded Sex Assigned at Male 10/29/2020 12:38 PM CDT Legal Sex Male 1:45 PM FURNITURE SALES ASSOCIATE Gender Identity Male 07/15/2019 8:59 AM CDT Sexual Orientation Straight 07/15/2019 8: 59 AM CDT documented as of this encounter Plan of Treatment Upcoming Encounters Date Type Department Care Team (Latest Contact Info) Description 10/31/2024 9:15 AM CDT Clinical Communication Virtual Review in [place], [place] 200 [place] [address] 11/01/2024 9:00 AM CDT Appointment Department of Radiology, [facility] in [place], [place] [address] [place] [phone] Candida Lucero P.A.-C. [address] [place] [phone] Discharge Disposition: Home or Self Care 11/01/2024 9:45 AM CDT Appointment Department of Radiology, [facility], in [place], [place] [address] [place] [phone] Candida Lucero P.A.-C. [address] [place] [phone] 11/01/2024 1:00 PM CDT Telemedicine Department of Physical Medicine and Rehabilitation in [address] [phone] David Weir D.O. [address] [place] [phone] 11/13/2024 2:30 PM CDT Office Visit Department of Sports Medicine in [address] [phone] Ahsan Talbert M.D., Ph.D. [address] [place] [phone] 12/12/2024 8:00 AM FURNITURE SALES ASSOCIATE Clinical Support [facility] in [address] [phone] Hamilton Beebe, Ph.D., L.P. [address] [place] [phone] 12/13/2024 8:00 AM FURNITURE SALES ASSOCIATE Clinical Support [facility] in [address] [phone] Hamilton Beebe, Ph.D., L.P. [address] [place] [address] [phone] 12/14/2024 8:00 AM FURNITURE SALES ASSOCIATE Clinical Support [facility] in [address] [phone] Hamilton Beebe, Ph.D., L.P. [address] [place] [phone] 12/17/2024 8:00 AM FURNITURE SALES ASSOCIATE Clinical Support [facility] in [address] [phone] Hamilton Beebe, Ph.D., L.P. [address] [place] [phone] 12/18/2024 8:00 AM FURNITURE SALES ASSOCIATE Clinical Support [facility] in [address] [phone] Hamilton Beebe, Ph.D., L.P. [address] [place] [address] [phone] 12/19/2024 8:00 AM FURNITURE SALES ASSOCIATE Clinical Support [facility] in [address] [phone] Hamilton Beebe, Ph.D., L.P. [address] [place] [phone] 12/20/2024 8:00 AM FURNITURE SALES ASSOCIATE Clinical Support [facility] in [address] [phone] Hamilton Beebe, Ph.D., L.P. [address] [place] [address] [phone] 12/21/2024 8:00 AM FURNITURE SALES ASSOCIATE Clinical Support [facility] in [address] [phone] Hamilton Beebe, Ph.D., L.P. [address] [place] [phone] 12/24/2024 8:00 AM FURNITURE SALES ASSOCIATE Clinical Support [facility] in [address] [phone] Hamilton Beebe, Ph.D., L.P. [address] [place] [phone] 12/25/2024 8:00 AM FURNITURE SALES ASSOCIATE Clinical Support [facility] in [address] [phone] Hamilton Beebe, Ph.D., L.P. [address] [place] [phone] 12/26/2024 8:00 AM FURNITURE SALES ASSOCIATE Clinical Support [facility] in [address] [phone] Hamilton Beebe, Ph.D., L.P. [address] [place] [address] [phone] 12/27/2024 8:00 AM FURNITURE SALES ASSOCIATE Clinical Support [facility] in [address] [phone] Hamilton Beebe, Ph.D., L.P. [address] [place] [phone] 12/28/2024 8:00 AM FURNITURE SALES ASSOCIATE Clinical Support [facility] in [address] [phone] Hamilton Beebe, Ph.D., L.P. [address] [place] [address] [phone] 12/31/2024 8:00 AM FURNITURE SALES ASSOCIATE Clinical Support [facility] in [address] [phone] Hamilton Beebe, Ph.D., L.P. [address] [place] [address] [phone] 01/01/2025 8:00 AM FURNITURE SALES ASSOCIATE Clinical Support [facility] in [address] [phone] Hamilton Beebe, Ph.D., L.P. [address] [place] [address] [phone] 01/02/2025 8:00 AM FURNITURE SALES ASSOCIATE Clinical Support [facility] in [address] [phone] Hamilton Beebe, Ph.D., L.P. [address] [place] [address] [phone] 01/07/2025 1:30 PM FURNITURE SALES ASSOCIATE Telemedicine Department of Urology in [place], [place] [address] [place] [phone] Danielle Pitt D.O. [address] [place] [phone] Scheduled Referrals Name Type Priority Associated Diagnoses Orde r Schedule Urology office visit (clinic) Outpatient Referral Routine Expected: 10/10/2024, Expires: 01/09/2026 documented as of this encounter Visit Diagnoses Not on filedocumented in this encounter Additional Health Concerns Assessment Noted Time PHQ-9 Depression Total Score: 5 07/07/19 24 9:17 PM CDT documented as of this encounter Care Teams Protective Service Specialist Relationship Specialty Start Date End Date Elsewhere, Pcp PCP - General Internal Medicine 05/22/18 documented as of this encounter
--- OUTSIDE RECORDS SUMMARY | 2024-10-30 01:09 | XMS_ITS | Encounter Summary ---
Author Organization [facility] Address [address], [place] [address] Care Team Providers Care Natural Resources Professor Name Role Phone Eliana Guerra MD Primary Care Provider [phone] Reason for Visit * Reason Comments QUESTIONS, GENERAL Encounter Details Date Type Department Care Team ([facility] st Contact Info) Description 06/25/2024 Telephone Orthopedics at [address] [address] Anahi Van MD [address] [place] [address] QUESTIONS, GENERAL Social History Tobacco Use Types Packs/Day Years Used Date Smoking Tobacco: Never Assessed [facility] Utilities Answer Date Recorded In the past 12 months has [employer] electric, gas, oil, or water company threatened [...] time in the past 12 [facility], were you homeless or living in a group home (including now)? No 07/04/2024 Sex and Gender Information Value Date Recorded Sex Assigned at Not on file Legal Sex Male 5:33 PM APPLIED RESEARCH DIRECTOR Gender Identity Not on file Sexual Orientation [...] message for pt to call back at [phone] and press the option for [facility]. [...] He states also that he is currently [facility] after an injury to his back. [...] 11/06/2024 3:00 PM CDT Appointment Orthopedics at [address] [place] [address] Anahi Van MD [address] [place] [address] documented as of this encounter Visit Diagnoses Not on filedocumented in this encounter Care Teams Natural Resources Professor Relationship Specialty Start Date End Date Eliana [place]erra [place] [address] PCP - General Family Practice 12/04/19 documented as of this encounter
--- OUTSIDE RECORDS SUMMARY | 2024-10-30 01:09 | XMS_ITS | Encounter Summary ---
Author Organization [facility] Address [address] [place] [address] Care Team Providers Care Squeegeer And Former Name Role Phone Eliana Guerra MD Primary Care Provider [phone] Reason for Visit * Reason Comments Reschedule Appointment Encounter Details Date Type Department Care Team (Late st Contact Info) Description 06/06/2024 Telephone Orthopedics at [address] [address] Nilay Ceron MD [address] [facility] [address] [place] [address] Reschedule Appointment Social History Tobacco Use Types Packs/Day Years Used Date Smoking Tobacco: Never Assessed [facility] Utilities Answer Date Recorded In the past 12 months has [facility] electric, gas, oil, or water company [...] any time in the past 12 m [facility], were you homeless or living in a half-way (including now)? 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 documented in this encounter Plan of Treatment Upcoming Encounters Date Type Department Care Team (Late st Contact Info) Description 11/06/2024 3:00 PM CDT Appointment Orthopedics at [address] [place] [address] Anahi Van MD [address] [place] [address] documented as of this encounter Visit Diagnoses Not on filedocumented in this encounter Care Teams Squeegeer And Former Relationship Specialty Start Date End Date Eliana Guerra MD [address] [place] [address] PCP - General Family Practice 12/04/19 documented as of this encounter
--- OUTSIDE RECORDS SUMMARY | 2024-10-30 01:09 | XMS_ITS | Clinical Summary ---
Author Organization [facility] Address [address], [place] [address] Care Team Providers Care Store Product Demonstrator Name Role Phone Eliana Guerra MD Primary Care Provider [phone] Source Comments You are receiving this document as you are listed as the primary care provider,follow-up provider, or the patient has been referred to you for consultation.This is in compliance with the Medicare andRegional Medical Centercaid EHR Incentive Program,which states Providers who transition their patient to another setting of careor provider of care or refers their patient to another provider of care shouldprovide summary care record for each transition of care or referral. 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 [address] Anahi Van MD APPOINTMENT REQUEST 10/07/2024 11:40 AM CDT E-Visit Orthopedics at [address] [place] [address] Nilay Ceron MD Chief Comp: Forms/Letter 10/03/2024 Notes/Orders [facility] [address] [place] [address] Charles Martinez MD Routine general medical examination at health care facility 09/17/2024 7:50 AM CDT Phone Visit Orthopedics at [address] [place] [address] Nilay Ceron MD Bilateral hip pain (Primary Dx) 09/13/2024 Telephone Orthopedics at [address] [place] [address] Anahi Van MD APPOINTMENT REQUEST 09/06/2024 9:10 PM CDT E-Visit Orthopedics at [address] [place] [address] Anahi Van MD Chief Comp: QUESTIONS, GENERAL 08/28/2024 Telephone Orthopedics at [address] [place] [address] Nilay Ceron MD CHANGING APPOINTMENTS 08/20/2024 9:00 AM CDT Office Visit [facility] [address] [facility] [place] [address] Mateusz Crawford DO Neuropathic pain (Primary Dx); Chronic pain syndrome 08/17/2024 Telephone [facility] [address] [facility] [place] [address] Mateusz Crawford DO Appointment Questions 08/15/2024 9:00 AM CDT Office Visit Orthopedics at [facility] [address] [place] [address]. [place] [address] Anahi Van MD Aftercare following surgery of the musculoskeletal system (Primary Dx); Peroneal tendinitis of right lower extremity 08/15/2024 8:45 AM CDT Ancillary Procedure [facility] [address] Radiology [address] [place] [address] Anahi Van MD Aftercare following surgery of the musculoskeletal system 08/06/2024 8:50 AM CDT Office Visit Orthopedics at [facility] [address] [place] [address] Nilay Ceron MD Bilateral hip pain (Primary Dx); Femoroacetabular impingement of left hip; Femoroacetabular impingement of right hip from Last 3 Months Social History Tobacco Use Types Packs/Day Years Used Date Smoking Tobacco: Never Smokeless Tobacco: Never Tobacco Cessation:Counseling Given: Not Answered Alcohol Use Standard Drinks/Week Comments Yes 0 (1 standard drink = 0.6 oz pur e alcohol) occasional [facility] Utilities Answer Date Recorded In the past 12 months has [employer], oil, or water [employer] threatened to shut off services in your [...] on file 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 [address] Anahi Van MD [address] [place] [address] Health Maintenance Due Date Last Done Comments [...] XR ANKLE RT 3 VIEWS STANDING LOCATION: [facility] 435 DATE: 08/15/2024 INDICATION: EXCISION EXOSTOSIS ANKLE [...] XR ANKLE RT 3 VIEWS STANDING LOCATION: [facility] 435 DATE: 08/15/2024 INDICATION: EXCISION EXOSTOSIS ANKLE [...] Result from Last 3 [place] [id number] [facility] PMAP Advance Directives * Full Code (Latest Code Status on File) Date Activated Date Inactivated Comments 06/19/2024 4:06 PM 07/04/2024 2:51 PM Care Teams Store Product Demonstrator Relationship Specialty Start Date End Date Eliana Guerra MD [place] [address] PCP - General Family Practice 12/04/19
--- OUTSIDE RECORDS SUMMARY | 2024-10-30 01:09 | XMS_ITS | Encounter Summary ---
Author Organization [facility] Address [address] [place] [address]. [place] [address] Care Team Providers Care Washer Hand Name Role Phone Kei Eugene MD Unavailable [phone] Eliana Guerra MD Primary Care Provider [phone] Eliana Guerra MD Unavailable [phone] Eliana Guerra MD Unavailable [phone] Unavailable Unavailable Jody Obregon APRN ENVIRONMENT COORDINATOR Unavailable [phone] Efrain Crow PA-C Unavailable [phone] Encounter Details Date Type Department Care Team (Late st Contact Info) Description 09/27/2024 Home Infusion [facility] [address] [place] [phone] Francine Duval LPN Social History Tobacco [...] in an abandoned building, in an overnight assisted, or couch-surfing.) Yes 03/03/2024 Are you worried [...] on file 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 Gender Identity Not on file Sexual Orientation Not on file documented as of this encounter Plan of Treatment Scheduled Procedures Name Priority Associated Diagnoses Date/Ti me SURGICAL EXTRACTION, TOOTH Chronic pericoronitis documented as of this encounter Visit Diagnoses Not on filedocumented in this encounter Care Teams Washer Hand Relationship Specialty Start Date End Date Eliana Guerra MD [facility] [place] [address] PCP - General Family Medicine 03/04/24 Kei Eugene MD [address] [place], [place] [address] Assigned Musculoskeletal Provider 03/01/24 Eliana Guerra MD [address] [address] Home Infusion Following Provider Family Medicine 03/11/24 Eliana Guerra MD [facility] [address] [place] [address] Home Infusion Following Provider Family Medicine 03/14/[address] [facility] Registered Dietitian Dietitian 03/14/24 Jody Obregon APRN ENVIRONMENT COORDINATOR Home Infusion Following Provider 03/14/24 Efrain Crow PA-C [facility] [address] [address] Home Infusion Following Provider Gastroenterology 06/25/24 documented as of this encounter
--- OUTSIDE RECORDS SUMMARY | 2024-10-30 01:09 | XMS_ITS | Encounter Summary ---
Author Organization [facility] Address [address], [place] [address] Care Team Providers Care Glove Former Name Role Phone Eliana Guerra MD Primary Care Provider [phone] Encounter Details Date Type Department Care Team (Late st Contact Info) Description 10/03/2024 Notes/Orders [facility] [address] [place] [address] Charles Martinez MD [address] [place] [address] Routine general medical examination at health care facility Social History Tobacco Use Types Packs/Day Years Used Date Smoking Tobacco: Never Smokeless Tobacco: Never Alcohol Use Standard Drinks/Week Comments Yes 0 (1 standard drink = 0.6 oz pur e alcohol) occasional [facility] Utilities Answer Date Recorded In the past 12 months has [facility] [employer], gas, oil, or water [employer] threatened to shut off services in your [...] were you homeless or living in a longterm (including now)? 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 [address] Anahi Van MD [address] [place] [address] Pending Results Name Type Priority Associated Diagnoses Date /Time DNA Analysis Discrete Sequence Variation Panel (Saliva) (Patient Collected) Lab Routine Routine general medical examination at health care facility 10/03/2024 6:20 AM CDT documented as of this encounter Visit Diagnoses Diagnosis Routine general medical examination at health care facility Routine general medical examination at a [facility] care facility documented in this encounter Care Teams Glove Former Relationship Specialty Start Date End Date Eliana Guerra MD [address] [place] [address] PCP - General Family Practice 12/04/19 documented as of this encounter
--- OUTSIDE RECORDS SUMMARY | 2024-10-30 01:09 | XMS_ITS | Patient Health Record ---
Author Organization [facility] Address [address] [facility] [address] [place], [place] [address] Care Team Providers Care Core Finisher Name Role Phone Charlie GARCIA, Eliana Primary Care Provider LexxrenettamaryLanette Juaquin [phone] Reason For Referral No Information Problems Problem Type SNOMED Code ICD Code Onset Dates Problem Status W/U Status Risk Notes Problem Pectus excavatum (352207223) Pectus excavatum (Q67.6) Active confirmed Problem Environmental allergy (691753759) Environmental allergies (Z91.09) Active confirmed Problem Low back pain (042388255) Low back pain (M54.5) Active confirmed Problem Underweight (901646339) Underweight (R63.6) Active confirmed Problem Pediatric body mass index (BMI) of less than 5th percentile for age (Z68.51) Active confirmed Problem Restless legs (39100194) Restless leg (G25.81) Active confirmed Plan Of Treatment No Information Insurance Providers Payer Name Payer Address Payer Phone Subscriber Number Group Number Insured Name Patient Relationship to Insured Coverage Start Date Coverage End Date [place] - [facility] [address] [place] [address] [id number] Paramjit Boyce Self - patient is the insured Medical (General) History Medical History History ICD Code environmental allergies GERD chronic back pain
--- OUTSIDE RECORDS SUMMARY | 2024-10-30 01:09 | XMS_ITS | Clinical Summary ---
Author Organization [facility] Address [address] [place] [address] Care Team Providers Care Parachute Panel Joiner Name Role Phone Eliana Guerra MD Primary [...] Encounters Date Type Department Care Team Description 10/26/2024 Orders Only [facility] Scanner 1 scan: (1-Ord) [place], [place] ABDOMEN PELVIS WO CON, 10/26/2024 10/22/2024 3:00 PM CDT Telemedicine [facility] [[email or web address] [address] [place] [address] Kwame Yanez, PhD, LP Telehealth 10/04/2024 9:30 AM CDT Office Visit [facility] [[email or web address] [address] [place] [address] Zoila Manriquez NP Medication Management (Things are going fantastic) 10/04/2024 Telephone [facility] [[email or web address]] [address] [place] [address] Eliana Guerra MD 10/04/2024 Travel 10/03/2024 10:50 AM CDT Office Visit [facility] [[email or web address]] [address] [place] [address] Eliana Guerra MD Follow Up (Bladder concerns) 10/03/2024 Travel 10/01/2024 Telephone [facility] [address] [place] [address] Gracie Tobar MD Failed Appointment (Missed consult appointment, first notice sent.) 09/21/2024 Orders Only [facility] Scanner 1 scan: (1-Ord) [facility], MULTIPLE RESULTS, 09/21/2024 09/18/2024 Orders Only [facility] Scanner 1 scan: (1-Ord) [facility], MULTIPLE RESULTS, 09/18/2024 08/29/2024 Telephone [facility] [[email or web address] [address] [place] [address] Kwame Yanez, PhD, LP Testing / Follow Up Appointments NEEDED 08/28/2024 9:00 AM CDT Office Visit [facility] [address] [place] [address] Katarzyna Cohen MD Hospital F/U (Follow up ER on 08/25 for UTI. Still having symptoms ) 08/27/2024 10:30 AM CDT Telemedicine [facility] [[email or web address]] [address] [place] [address] Zoila Manriquez NP Telehealth; Medication Management 08/27/[address] [address] Zoila Manriquez NP Appointment 08/27/2024 Travel 08/24/2024 Nurse Triage [facility] [address] [place] [address] Katarzyna Cohen MD UTI 08/20/2024 2:40 PM CDT Office Visit [facility] [address] [place] [address] Katarzyna Cohen MD UTI 08/20/2024 Travel 08/01/2024 2:00 PM CDT Telemedicine [facility] [[email or web address] [address] [place] [address] Zoila Manriquez NP Telehealth; Medication Management (Things are the same) 08/01/2024 Travel from Last 3 Months Immunizations Immunization [...] on file 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 Gender Identity Not on file Sexual [...] 190 cm (6' 2.8) 04/12/2024 11:25 AM ELA TEACHER Body Mass Index 22.25 04/12/2024 11:25 AM ELA TEACHER Plan of Treatment Upcoming Encounters Date Type Department Care Team (Late st Contact Info) Description 11/12/2024 3:00 PM CDT Telemedicine [facility] [[email or web address]] [address] [place] [phone] Kwame Yanez, PhD, LP [address] [place] [address] 11/15/2024 1:00 PM CDT Office Visit [facility] [[email or web address]] [address] [place] [address] Zoila Manriquez, SOA ARCHITECT [address] [place] [address] Health Maintenance Due Date Last Done Comments [...] Procedure Name Priority Date/Time Associated Diagnosis Comments SCAN-CT INTERPRETATION 5 12:00 AM CDT SCAN-LABORATORY REPORT 5 12:00 AM CDT SCAN-LABORATORY REPORT 12:00 AM CDT URINALYSIS [facility] ONLY POC DIP (QUEST) Routine 08/20/2024 2:51 PM CDT Complicated UTI (urinary tract infection) URINALYSIS MICROSCOPIC Routine 2:34 PM CDT Complicated UTI (urinary tract infection) URINE CULTURE Routine 08/20/2024 2:34 PM CDT Complicated UTI (urinary tract infection) EXPOSURE (BBF) RAPID HIV Routine 08/18/2020 8:10 AM CDT Employee exposure to blood EXPOSURE (BBF) ANTI HCV Routine 08/19/19 8:10 AM CDT Employee exposure to blood from Last 3 Months or Most Recently Relevant to Health Maintenance Results * SCAN-CT INTERPRETATION (10/26/2024 12:00 AM CDT) Anatomical Region Laterality Modality Other us Scanner OTHER Final Result * SCAN-LABORATORY REPORT (09/21/2024 12:00 AM CDT) Only the most recent of2 resultswithin the time period is included. us Scanner OTHER Final Result * (ABNORMAL) POCT Urinalysis Dipstick Only [[id number]] (08/20/2024 2:51 PM CDT) PH 6.5 5.0 - 8.0 [facility] SPECIFIC GRAVITY 1.025 1.001 - 1.035 [facility] GLUCOSE NEGATIVE NEGATIVE [facility] BILIRUBIN NEGATIVE NEGATIVE [facility] KETONES NEGATIVE NEGATIVE [facility] OCCULT BLOOD TRACE(A) NEGATIVE [facility] PROTEIN 1+(A) NEGATIVE [facility] NITRITE POSITIVE(A) NEGATIVE [facility] LEUKOCYTE ESTERASE 2+(A) NEGATIVE [facility] Urine URINE SPECIMEN / Unknown 08/20/2024 2:51 PM CDT 08/20/2024 2:52 PM CDT Katarzyna Cohen MD URINE Final R esult [facility] [address] [facility] [place] [address], [facility] [address] [facility] [place] [address] * (ABNORMAL) URINALYSIS MICROSCOPIC [19775.1] - routine (08/20/2024 2:34 PM CDT) RBC >100(A) 0-2, None Seen /HPF 08/21/2024 7:05 AM CDT [facility] WBC >100(A) 0-2, 3-5, None Seen /HPF 08/21/2024 7:05 AM CDT [facility] BACTERIA Many(A) None Seen, Rare, Few Bacteria/ HPF 08/21/2024 7:05 AM CDT [facility] EPITHELIAL CELLS None Seen None Seen, Few Epi/HPF 08/21/2024 7:05 AM CDT [facility] YEAST Present(A) (none) 08/21/2024 7:05 AM CDT [facility] HYALINE CASTS 3-5 0-2, 3-5 /LPF 08/21/2024 7:05 AM CDT [facility] CALCIUM OXALATE CRYSTALS Present(A) (none) 08/21/2024 7:05 AM CDT [facility] CALCIUM PHOSPHATE CRYSTALS Present(A) (none) 08/21/2024 7:05 AM CDT [facility] Urine URINE SPECIMEN / Unknown Non-Blood / Unknown 08/20/2024 2:34 PM CDT 08/20/2024 2:34 PM CDT Katarzyna Cohen MD URINE Final R esult Performing Organization Address City/[facility]/ZIP Co de Phone Number [facility] [address] [place] [address], [place] * (ABNORMAL) URINE CULTURE [51710.2] (08/20/2024 2:34 PM CDT) CULTURE RESULT(A) 08/24/2024 7:06 AM CDT [facility] CULTURE >100,000 CFU/mL Klebsiella oxytoca 08/24/2024 7:06 AM CDT [facility] CULTURE >100,000 CFU/mL Citrobacter freundii 08/24/2024 7:06 AM CDT [facility] Comment: Oral cephalosporins are not recommended. May develop resistance during therapy with penicillins and 0-1xs-nbjsokekbe cephalosporins as a result of loss of repression of AmpC -lactamase. Therefore, isolates that are initially susceptible may become resistant within 3 to 4 days after initiation of therapy. CULTURE 50,000-100,000 CFU/mL Enterococcus species 08/24/2024 7:06 AM CDT [facility] Comment:Further identified a s - Enterococcus gilvus Urine URINE SPECIMEN / Unknown Non-Blood / Unknown 08/20/2024 2:34 PM CDT 08/20/2024 2:34 PM CDT Narrative [facility] - 08/24/2024 7:06 AM CDT Specimen appears contaminated. No further workup pending. us Katarzyna Cohen MD MICROBIOLOGY Final R esult Performing Organization Address City/[facility]/ZIP Co de Phone Number [facility] [address] [place] [address], [place] * EXPOSURE (BBF) RAPID HIV (08/18/2020 8:10 AM CDT) SOURCE RAPID HIV SCREEN Non-Reacti ve Non-Reacti ve 08/18/2020 2:42 PM CDT [facility] Blood BLOOD SPECIMEN / Unknown Venipuncture / Unknown 08/18/2020 8:10 AM CDT 08/18/2020 8:11 AM CDT us Eliana Guerra MD SEND OUTS Final Resul t [facility] [address] [place] [address], * EXPOSURE (BBF) ANTI HCV (08/18/2020 8:10 AM CDT) HEPATITIS C ANTIBODY Non-React alex Non-React alex 08/18/2020 2:57 PM CDT [facility] Comment:Antibodies to HCV no t detected; does not exclude the possibility of exposure to HCV. Blood BLOOD SPECIMEN / Unknown Venipuncture / Unknown 08/18/2020 8:10 AM CDT 08/18/2020 8:11 AM CDT us Eliana Guerra MD SEND OUTS Final Resul t [facility] [address] [place] [address], from Last 3 Months or Most Recently Relevant to Health Maintenance Additional Health Concerns Infection Onset Date Last Indicated ESBL 06/14/2024 06/14/2024 Insurance [facility] Care Teams Parachute Panel Joiner Relationship Specialty Start Date End Date Eliana Guerra MD [address] [place] [address] PCP - General Family Practice 10/20/17
--- OUTSIDE RECORDS SUMMARY | 2024-10-30 01:09 | XMS_ITS | Clinical Summary ---
Author Organization [facility] Address [address] [place] [address] Care Team Providers Care Fence Installer Helper Name Role Phone Elsewhere, Pcp Primary Care Provider Unavailabl e Source Comments Patient records contain information from all sites at [facility]. For routine questions regarding patient records, call [phone] during business hours, M-F 8:00 AM - 5:00 PM Central Time. Record requests for emergency care only can be directed to [phone] at any time.[facility] Allergies Active Allergy Reactions Criticality Noted Date [...] (12/12/2019): Added automatically from request for surgery [id number] Tear Hip Labral Degenerative Right 12/12/2019 Overview (12/12/2019): Added automatically from request for surgery [id number] Klinefelter's Syndrome 07/25/2019 Primary Exertional Headache 04/18/2018 [...] Orders Only Department of Orthopedic Surgery in [place], [place] [address] [place] [address] Candida Lucero P.A.-C. Pain Hip Right (Primary Dx) 10/23/2024 Orders Only Department of Orthopedic Surgery in [place], [place] [address] [place] [phone] Candida Lucero P.A.-C. Pain Hip Right (Primary Dx) 10/22/2024 11:30 AM CDT Telemedicine Department of Urology in [place], [place] [address] [place] [phone] Kate Egan P.A.-C. 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 Elliott, Daniel S, M.D. Retention Urinary (Primary Dx); Feeling Of Incomplete Bladder Emptying [R39.14] 10/10/2024 Orders Only Department of Urology in [place], [place] [address] [place] [phone] Kate Egan P.A.-C. 10/03/2024 Clinical Communication Department of Urology in [address] [phone] Kate Egan P.A.-C. Phone Call Requested 09/18/2024 8:45 AM CDT Office Visit Department of Orthopedic Surgery in [place], [place] [address] [place] [phone] Jose Crawford M.D. Pain Wrist Left (Primary Dx) 09/18/2024 Orders Only Department of Orthopedic Surgery in [address] [phone] Mike Salomon Jr., P.A.-C. Hypermobility Joint (Primary Dx); Pain Wrist Left; Pain Hip Right 09/17/2024 3:30 PM CDT Telemedicine Department of Urology in [place], [place] [address] [place] [phone] Kate Egan P.A.-C. 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 Some college, no degree 05/24/2020 Sex and Gender Information Value Date Recorded Sex Assigned at Male 10/29/2020 12:38 PM CDT Legal Sex Male 1:45 PM AIR MOVING TECHNICIAN Gender Identity Male 07/15/2019 8:59 AM [...] AM CDT Clinical Communication Virtual Review in [place], [place] [address] [place] [address] 11/01/2024 9:00 AM CDT Appointment Department of Radiology, [facility], in [place], [place] [address] [place] [phone] Candida Lucero, PMackenzieAMackenzie-C. [address] [place] [phone] Discharge Disposition: Home or Self Care 11/01/2024 9:45 AM CDT Appointment Department of Radiology, [facility], in [place], [place] [address] [place] [address] Potts BaltazarCandida escalante P.A.-C. [address] [place] [phone] 11/01/2024 1:00 PM CDT Telemedicine Department of Physical Medicine and Rehabilitation in [place], [place] [address] [place] [phone] David Weir D.O. [address] [place] [phone] 11/13/2024 2:30 PM CDT Office Visit Department of Sports Medicine in [place], [place] [address] [place] [phone] Ahsan Talbert M.D., Ph.D. [address] [place] [phone] 12/12/2024 8:00 AM AIR MOVING TECHNICIAN Clinical Support [facility] in [address] [phone] Hamilton Beebe, Ph.D., L.P. [address] [place] [phone] 12/13/2024 8:00 AM AIR MOVING TECHNICIAN Clinical Support [facility] in [address] [phone] Hamilton Beebe, Ph.D., L.P. [address] [place] [phone] 12/14/2024 8:00 AM AIR MOVING TECHNICIAN Clinical Support [facility] in [address] [phone] Hamilton Beebe, Ph.D., L.P. [address] [place] [phone] 12/17/2024 8:00 AM AIR MOVING TECHNICIAN Clinical Support [facility] in [address] [phone] Hamilton Beebe, Ph.D., L.P. [address] [place] [phone] 12/18/2024 8:00 AM AIR MOVING TECHNICIAN Clinical Support [facility] in [address] [phone] Hamilton Beebe, Ph.D., L.P. [address] [place] [phone] 12/19/2024 8:00 AM AIR MOVING TECHNICIAN Clinical Support [facility] in [address] [phone] Hamilton Beebe, Ph.D., L.P. [address] [place] [phone] 12/20/2024 8:00 AM AIR MOVING TECHNICIAN Clinical Support [facility] in [address] [phone] Hamilton Beebe, Ph.D., L.P. [address] [place] [phone] 12/21/2024 8:00 AM AIR MOVING TECHNICIAN Clinical Support [facility] in [address] [phone] Hamilton Beebe, Ph.D., L.P. [address] [place] [address] [phone] 12/24/2024 8:00 AM AIR MOVING TECHNICIAN Clinical Support [facility] in [address] [phone] Hamilton Beebe, Ph.D., L.P. [address] [place] [phone] 12/25/2024 8:00 AM AIR MOVING TECHNICIAN Clinical Support [facility] in [address] [phone] Hamilton Beebe, Ph.D., L.P. [address] [place] [phone] 12/26/2024 8:00 AM AIR MOVING TECHNICIAN Clinical Support [facility] in [address] [phone] Hamilton Beebe, Ph.D., L.P. [address] [place] [phone] 12/27/2024 8:00 AM AIR MOVING TECHNICIAN Clinical Support [facility] in [address] [phone] Hamilton Beebe, Ph.D., L.P. [address] [place] [phone] 12/28/2024 8:00 AM AIR MOVING TECHNICIAN Clinical Support [facility] in [address] [phone] Hamilton Beebe, Ph.D., L.P. [address] [place] [phone] 12/31/2024 8:00 AM AIR MOVING TECHNICIAN Clinical Support [facility] in [address] [phone] Hamilton Beebe, Ph.D., L.P. [address] [place] [address] [phone] 01/01/2025 8:00 AM AIR MOVING TECHNICIAN Clinical Support [facility] in [place], [place] [address] [place] [phone] Hamilton Beebe, Ph.D., L.P. [address] [place] [phone] 01/02/2025 8:00 AM AIR MOVING TECHNICIAN Clinical Support [facility] in [place], [place] [address] [place] [phone] Hamilton Beebe, Ph.D., L.P. [address] [place] [address] [phone] 01/07/2025 1:30 PM AIR MOVING TECHNICIAN Telemedicine Department of Urology in [place], [place] [address] [place] [phone] Danielle Pitt D.O. [address] [place] [phone] Health Maintenance Due Date Last Done Comments [...] history exists Medical Devices Implanted Type Area Community Relations Director Device Identifier Shelf Expiration Date Model / Serial / Lot Hardware E.G. Pins/Screws/R ods Hardware e.g. pins/screws/ rods Chest Wall [address] Pk Hip Mini 2.4x8.9 - [id number] Implanted:Qty : 1 on 02/13/2020 by Zoltan Haines M.D. at [facility] Hardware e.g. pins/screws/ rods Right: Hip Arthrex [id number] 11/06/2024 AR-2924PH S / / [id number] [address] Pk Hip Mini 2.4x8.9 - [id number] Implanted:Qty : 2 on 02/13/2020 by Zoltan Haines M.D. at [facility] Hardware e.g. pins/screws/ rods Right: Hip Arthrex [id number] 10/07/2024 AR-2924PH S / / [id number] Pk Hip Mini 2.4x8.9 - [id number] Implanted:Qty : 1 on 02/13/2020 by Zoltan Haines M.D. at [facility] Hardware e.g. pins/screws/ rods Right: Hip Arthrex [id number] 07/07/2024 AR-2924PH S / / [id number] Kt Fix Intbrc Hnd Wrst - [id number] Implanted:Qty : 1 on 02/02/2021 by Jose Crawford M.D. at [facility] Hardware e.g. pins/screws/ rods Left: Wrist Arthrex [id number] 09/06/2025 AR-8978-C P / / [id number] Procedures Procedure Name Priority Date/Time Associated Diagnosis [...] nal Result from Last 3 Months Insurance [facility] [place] [address] Care Teams Fence Installer Helper Relationship Specialty Start Date End Date Elsewhere, Pcp PCP - General Internal Medicine 05/22/18
--- OUTSIDE RECORDS SUMMARY | 2024-10-30 01:09 | XMS_ITS | Patient Health Record ---
Author Organization [facility] Address [facility]ly [facility] [address] [place] [address] Care Team Providers Care Valve Steamer Name Role Phone Charlie GARCIA, Eliana Primary Care Provider JOHANNA GARCIA, PhD, SINCERE Reza [phone] Reason For Referral No Information Medications Medication SIG (Take, Route, Fr equency, Duration) Notes Start Date End Date Status Iron Not-Taking Problems Problem Type SNOMED Code ICD Code Onset Dates Problem Status W/U Status Risk Notes Problem Pectus excavatum (840273137) Pectus excavatum (Q67.6) Active confirmed Problem Disorder of connective tissue (212522620) Connective tissue disorder (M35.9) Active confirmed Problem Acquired pectus carinatum (84735882) 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 Plan Of Treatment Pending Test Test Name Order Date C-Reactive Protein (CRP) (CRP) 8 Insurance Providers Payer Name Payer Address Payer Phone Subscriber Number Group Number Insured Name Patient Relationship to Insured Coverage Start Date Coverage End Date BLUE PLUS PMAP-20 19 [address] [address] [place] [phone] [id number] [facility] Paramjit Boyce Self - patient is the insured 9 Medical (General) History Medical History History ICD Code Syndromes/anomalies: Connective tissue d isorder Other: Pectus excavatum, Acquired pectus carinatum Surgical History Surgery Date(Month/Year) Daja procedure for pectus excavatum 10/08 10/25
--- OUTSIDE RECORDS SUMMARY | 2024-10-30 01:09 | XMS_ITS | Encounter Summary ---
Author Organization [facility] Address [address] [place] [address] Care Team Providers Care Rn Oncology Name Role Phone Elsewhere, Pcp Primary Care Provider Unavailabl e Encounter Details Date Type Department Care Team (Late st Contact Info) Description 10/24/2024 Orders Only Department of Orthopedic Surgery in [place], [place] [address] [place] [address] Candida Lucero P.A.-C. 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 I have a [facility] place to live 05/29/2024 Education Answer Date Recorded What is the highest level of school you have completed or the highest degree you have received? Some college, no degree 05/24/2020 Sex and Gender Information Value Date Recorded Sex Assigned at Male 10/29/2020 12:38 PM CDT Legal Sex Male 1:45 PM REFRIGERATING ENGINEER HEAD Gender Identity Male 07/15/2019 8:59 AM CDT Sexual Orientation Straight 07/15/2019 8: 59 AM CDT documented as of this encounter Plan of Treatment Upcoming Encounters Date Type Department Care Team (Latest Contact Info) Description 10/31/2024 9:15 AM CDT Clinical Communication Virtual Review in [place], [place] 200 [place] [address] 11/01/2024 9:00 AM CDT Appointment Department of Radiology, [facility], in [place], [place] [address] [place] [phone] Candida Lucero P.A.-C. [address] [place] [phone] Discharge Disposition: Home or Self Care 11/01/2024 9:45 AM CDT Appointment Department of Radiology, [facility], in [place], [place] [address] [place] [phone] Candida Lucero P.A.-C. [address] [place] [phone] 11/01/2024 1:00 PM CDT Telemedicine Department of Physical Medicine and Rehabilitation in [place], [place] [address] [place] [phone] David Weir D.O. [address] [place] [phone] 11/13/2024 2:30 PM CDT Office Visit Department of Sports Medicine in [place], [place] [address] [place] [phone] Ahsan Talbert M.D., Ph.D. [address] [place] [phone] 12/12/2024 8:00 AM REFRIGERATING ENGINEER HEAD Clinical Support [facility] in [address] [phone] Hamilton Beebe, Ph.D., L.P. [address] [place] [phone] 12/13/2024 8:00 AM REFRIGERATING ENGINEER HEAD Clinical Support [facility] in [address] [phone] Hamilton Beebe, Ph.D., L.P. [address] [place] [phone] 12/14/2024 8:00 AM REFRIGERATING ENGINEER HEAD Clinical Support [facility] in [address] [phone] Hamilton Beebe, Ph.D., L.P. [address] [place] [phone] 12/17/2024 8:00 AM REFRIGERATING ENGINEER HEAD Clinical Support [facility] in [address] [phone] Hamilton Beebe, Ph.D., L.P. [address] [place] [phone] 12/18/2024 8:00 AM REFRIGERATING ENGINEER HEAD Clinical Support [facility] in [address] [phone] Hamilton Beebe, Ph.D., L.P. [address] [place] [phone] 12/19/2024 8:00 AM REFRIGERATING ENGINEER HEAD Clinical Support [facility] in [address] [phone] Hamilton Beebe, Ph.D., L.P. [address] [place] [phone] 12/20/2024 8:00 AM REFRIGERATING ENGINEER HEAD Clinical Support [facility] in [address] [phone] Hamilton Beebe, Ph.D., L.P. [address] [place] [phone] 12/21/2024 8:00 AM REFRIGERATING ENGINEER HEAD Clinical Support [facility] in [address] [phone] Hamilton Beebe, Ph.D., L.P. [address] [place] [phone] 12/24/2024 8:00 AM REFRIGERATING ENGINEER HEAD Clinical Support [facility] in [address] [phone] Hamilton Beebe, Ph.D., L.P. [address] [place] [phone] 12/25/2024 8:00 AM REFRIGERATING ENGINEER HEAD Clinical Support [facility] in [address] [phone] Hamilton Beebe, Ph.D., L.P. [address] [place] [phone] 12/26/2024 8:00 AM REFRIGERATING ENGINEER HEAD Clinical Support [facility] in [address] [phone] Hamilton Beebe, Ph.D., L.P. [address] [place] [phone] 12/27/2024 8:00 AM REFRIGERATING ENGINEER HEAD Clinical Support [facility] in [address] [phone] Hamilton Beebe, Ph.D., L.P. [address] [place] [phone] 12/28/2024 8:00 AM REFRIGERATING ENGINEER HEAD Clinical Support [facility] in [address] [phone] Hamilton Beebe, Ph.D., L.P. [address] [place] [phone] 12/31/2024 8:00 AM REFRIGERATING ENGINEER HEAD Clinical Support [facility] [place] [address] [place] [phone] Hamilton Beebe, Ph.D., L.P. [address] [place] [phone] 01/01/2025 8:00 AM REFRIGERATING ENGINEER HEAD Clinical Support [facility] in [address] [phone] Hamilton Beebe, Ph.D., L.P. [address] [place] [phone] 01/02/2025 8:00 AM REFRIGERATING ENGINEER HEAD Clinical Support [facility] in [address] [phone] Hamilton Beebe, Ph.D., L.P. [address] [place] [phone] 01/07/2025 1:30 PM REFRIGERATING ENGINEER HEAD Telemedicine Department of Urology in [place], [place] [address] [place] [phone] Danielle Pitt D.O. [address] [place] [phone] documented as of this encounter Visit Diagnoses Diagnosis Pain Hip Right- Primary documented in this encounter Additional Health Concerns Assessment Noted Time PHQ-9 Depression Total Score: 5 07/07/19 24 9:17 PM CDT documented as of this encounter Care Teams Rn Oncology Relationship Specialty Start Date End Date Elsewhere, Pcp PCP - General Internal Medicine 05/22/18 documented as of this encounter
--- OUTSIDE RECORDS SUMMARY | 2024-10-30 01:09 | XMS_ITS | Encounter Summary ---
Author Organization [facility] Address [address] [address] Care Team Providers Care Batch Plant Operator Name Role Phone Eliana Guerra MD Primary Care Provider [phone] Reason for Visit * Reason Comments APPOINTMENT REQUEST Encounter Details Date Type Department Care Team ([facility] st Contact Info) Description 09/13/2024 Telephone Orthopedics at [address] [address] Anahi Van MD [address] [place] [address] APPOINTMENT REQUEST Social History Tobacco Use Types Packs/Day Years Used Date Smoking Tobacco: Never Smokeless Tobacco: Never Alcohol Use Standard Drinks/Week Comments Yes 0 (1 standard drink = 0.6 oz pur e alcohol) occasional [facility] Utilities Answer Date Recorded In the past 12 months has [facility] [employer], gas, oil, or water [employer] [facility] threatened to shut off services in your [...] any time in the past 12 m [facility], were you homeless or living in a chcf (including now)? No 07/04/2024 Sex and Gender Information Value Date Recorded Sex Assigned at Not on file Legal Sex Male 5:33 PM CORE FITTER Gender Identity Not on file Sexual Orientation [...] can we send you a message in [place]? Yes [City Planning Engineer/Field Handyman: Relay to patient; We make every effort to get back to you sameday, however it may take 1-2 business days depending on the nature of the communication.] Juan Pablo White 09/13/2024, 11:03 AM documented in this encounter Plan of Treatment Upcoming Encounters Date Type Department Care Team (Late st Contact Info) Description 11/06/2024 3:00 PM CDT Appointment Orthopedics at [address] [address] Anahi Van MD [address] [place] [address] documented as of this encounter Visit Diagnoses Not on filedocumented in this encounter Care Teams Batch Plant Operator Relationship Specialty Start Date End Date Eliana Guerra MD [address] [place] [address] PCP - General Family Practice 12/04/19 documented as of this encounter
--- OUTSIDE RECORDS SUMMARY | 2024-10-30 01:09 | XMS_ITS | Encounter Summary ---
Author Organization [facility] Address [address], [place] [address] Care Team Providers Care Salvage Winder And Inspector Name Role Phone Eliana Guerra MD Primary Care Provider [phone] Reason for Visit * Reason Comments APPOINTMENT REQUEST Encounter Details Date Type Department Care Team ([facility] st Contact Info) Description 10/10/2024 Telephone Orthopedics at [address] [address] Anahi Van MD [address] [place] [address] APPOINTMENT REQUEST Social History Tobacco Use Types Packs/Day Years Used Date Smoking Tobacco: Never Smokeless Tobacco: Never Alcohol Use Standard Drinks/Week Comments Yes 0 (1 standard drink = 0.6 oz pur e alcohol) occasional [facility] Utilities Answer Date Recorded In the past 12 months has [facility] [employer], gas, oil, or water [employer] threatened to shut off services in [...] were you homeless or living in a fdc (including now)? No 07/04/2024 Sex and Gender Information Value Date Recorded Sex Assigned at Not on file Legal Sex Male 5:33 PM RIP SAWYER Gender Identity Not on file Sexual Orientation [...] 3:00 PM CDT Appointment Orthopedics at [address] [place] [address] Anahi Van MD [address] [place] [address] documented as of this encounter Visit Diagnoses Not on filedocumented in this encounter Care Teams Salvage Winder And Inspector Relationship Specialty Start Date End Date Eliana Guerra MD [address] [place] [address] PCP - General Family Practice 12/04/19 documented as of this encounter
--- OUTSIDE RECORDS SUMMARY | 2024-10-30 01:09 | XMS_ITS | Encounter Summary ---
Author Organization [facility] Address [address] [place] [address]. [place] [address] Care Team Providers Care Button Tufting Machine Operator Name Role Phone Kei Eugene MD Unavailable [phone] Eliana Guerra MD Primary Care Provider [phone] Eliana Guerra MD Unavailable [phone] Eliana Guerra MD Unavailable [phone] Unavailable Unavailable Jody Obregon APRN ASSISTANT PROFESSOR OF ECONOMICS Unavailable [phone] Efrain Crow PA-C Unavailable [phone] Regina Monroy RN Unavailable Unavailabl e Encounter Details Date Type Department Care Team (Late st Contact Info) Description 06/25/2024 Home Infusion [facility] [address] [place] [phone] Anastacia Rodriguez, JESUS ALBERTO Social History [...] in an abandoned building, in an overnight alf, or couch-surfing.) Yes 03/03/2024 Are you worried [...] on file Legal Sex Male 9:18 AM TIRE ASSEMBLER Gender Identity Not on file Sexual [...] on filedocumented in this encounter Care Teams Button Tufting Machine Operator Relationship Specialty Start Date End Date Eliana Guerra MD [address] [facility] [address] [place] [address] PCP - General Family Medicine 03/04/24 Kei Eugene MD [address] [place] [address] Assigned Musculoskeletal Provider 03/01/24 Eliana Guerra MD [facility] [address] [place] [address] Home Infusion Following Provider Family Medicine 03/11/24 Eliana Guerra MD [facility] [address] [place] [address] Home Infusion Following Provider Family Medicine 03/14/[address] [facility] Registered Dietitian Dietitian 03/14/24 Jody Obregon APRN ASSISTANT PROFESSOR OF ECONOMICS Home Infusion Following Provider 03/14/24 Efrain Crow PA-C [facility] [address] [place], [place] [phone] Home Infusion Following Provider Gastroenterology 06/25/24 Regina Monroy, KASIE [facility] [address] [place] [address] [facility] Resource Team 07/16/24 07/17/24 documented as of this encounter
--- OUTSIDE RECORDS SUMMARY | 2024-10-30 01:09 | XMS_ITS | Clinical Summary ---
Author Organization [facility] Address [address] [place] [address]. [place] [address] Care Team Providers Care Marine Meteorologist Name Role Phone Kei Eugene MD Unavailable [phone] Eliana Guerra MD Primary Care Provider [phone] Eliana Guerra MD Unavailable [phone] Eliana Guerra MD Unavailable [phone] Unavailable Unavailable Jody Obregon APRN ANKLE PATCH MOLDER Unavailable [phone] Efrain Crow PA-C Unavailable [phone] Allergies No known active allergies Medications famotidine [...] 70ml/hr Water flush: 120ml q 3 hours 62007 mL 11 06/18/2024 1:08 PM CDT 5 Active Active Problems Problem Noted Date Diagnosed Date Nausea 03/02/2024 Epigastric abdominal pain 03/02/2024 Weight loss 03/02/2024 Encounters Date Type Department Care Team Description 09/27/2024 Home Infusion [facility] [address] [place] [phone] Francine Duval LPN 08/17/2024 Home Infusion [facility] [address] [place] [phone] Francine Duval LPN from Last 3 Months [...] in an abandoned building, in an overnight care home, or couch-surfing.) Yes 03/03/2024 Are you [...] on file Legal Sex Male 9:18 AM GLOBAL EXPANSION SALES DIRECTOR Gender Identity Not on file Sexual Orientation Not on file Last Filed Vital Signs Vital Sign Reading Time Taken Comments Blood Pressure 118/68 03/24/2024 3:42 PM GLOBAL EXPANSION SALES DIRECTOR Pulse 82 03/24/2024 3:42 PM GLOBAL EXPANSION SALES DIRECTOR Temperature 36.6 C (97.8 F) 03/24/2024 3:42 PM GLOBAL EXPANSION SALES DIRECTOR Respiratory Rate 16 03/24/2024 3:42 PM GLOBAL EXPANSION SALES DIRECTOR Oxygen Saturation 99% 03/24/2024 3:42 PM GLOBAL EXPANSION SALES DIRECTOR Inhaled Oxygen Concentration - - Weight 65.7 kg (144 lb 14.4 oz) 025 10:51 AM GLOBAL EXPANSION SALES DIRECTOR Height 188 cm (6' 2.02) 03/15/2024 10: 55 AM GLOBAL EXPANSION SALES DIRECTOR Body Mass Index 18.6 03/15/2024 10:55 AM GLOBAL EXPANSION SALES DIRECTOR Plan of Treatment Scheduled Procedures Name Priority [...] ORDERA BLES Final Result [facility] Inf. Diseases Diag. Lab [address] [facility] [address] [place] [address], [facility] from Last 3 Months Insurance [employer] [facility] [place] Address: [id number] [place] [address] [facility] Advance Directives For more information, please contact: [phone] * Full Code (Latest Code Status on File) Date Activated Date Inactivated Comments 03/03/2024 12:32 AM 03/14/2024 4:32 PM All basic an d advanced life-sustaining interventions are performed as appropriate Question Answer Comments Code status determined by: Discussion with patie nt/ legal decision maker Care Teams Marine Meteorologist Relationship Specialty Start Date End Date Eliana Guerra MD [address] [place] [address] PCP - General Family Medicine 03/04/24 Kei Eugene MD [address] [place] [address] Assigned Musculoskeletal Provider 03/01/[address] [facility] [address] [place] [address] Home Infusion Following Provider Family Medicine 03/11/[address] [facility] [address] [place] [address] Home Infusion Following Provider Family Medicine 03/14/[address] [facility] Registered Dietitian Dietitian 03/14/24 Jody Obregon APRN ANKLE PATCH MOLDER Home Infusion Following Provider 03/14/24 Efrain Crow PA-C [facility] [address] [address] Home Infusion Following Provider Gastroenterology 06/25/24
--- OUTSIDE RECORDS SUMMARY | 2024-10-30 01:09 | XMS_ITS | Encounter Summary ---
Author Organization [facility] Address [address] [place] [address] Care Team Providers Care Manager Account Management Name Role Phone Elsewhere, Pcp Primary Care Provider Unavailabl e Reason for Referral * MRI/CAT/PET Scan (Routine) - Authorized Specialty Diagnoses / Procedures Referred By Contac t Referred To Contact Radiology Diagnoses Pain Hip Right Procedures MR Hip Arthrogram Right Candida Lucero P.A.-Kathya 200 [place] [address] Phone: tel: fax: [facility] Referral ID Status Reason Start Date Expiration Date V isits Requested Visits Authorized [id number] Authorized 10/23/2024 01/23/2026 1 1 * Outpatient (Routine) - Authorized Specialty Diagnoses / Procedures Referred By Contac t Referred To Contact Diagnoses Pain Hip Right Procedures FL Hip Arthrogram Injection Right ME INJ PROC HIP ARTHGRPH WO ANES ME FLUORO GUIDE [facility] Candida Lucero P.A.-C. 200 [place] [address] Phone: tel: fax: [facility] Referral ID Status Reason Start Date Expiration Date V isits Requested Visits Authorized [id number] Authorized 10/23/2024 01/23/2026 1 1 Encounter Details Date Type Department Care Team (Late st Contact Info) Description 10/23/2024 Orders Only Department of Orthopedic Surgery in [place], [place] [address] [place] [address] Candida Lucero P.A.-C. 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 Some college, no degree 05/24/2020 Sex and Gender Information Value Date Recorded Sex Assigned at Male 10/29/2020 12:38 PM CDT Legal Sex Male 1:45 PM SPEECH LANGUAGE PATHOLOGY ASSISTANT Gender Identity Male 07/15/2019 8:59 AM CDT Sexual Orientation Straight 07/15/2019 8: 59 AM CDT documented as of this encounter Plan of Treatment Upcoming Encounters Date Type Department Care Team (Latest Contact Info) Description 10/31/2024 9:15 AM CDT Clinical Communication Virtual Review in [place], [place] 200 [place] [address] 11/01/2024 9:00 AM CDT Appointment Department of Radiology, [facility], in [address] [address] Candida Lucero, P.A.-CMackenzie [address] [place] [phone] Discharge Disposition: Home or Self Care 11/01/2024 9:45 AM CDT Appointment Department of Radiology, [facility], in [address] [address] Candida Lucero, P.A.-CMackenzie [address] [place] [phone] 11/01/2024 1:00 PM CDT Telemedicine Department of Physical Medicine and Rehabilitation in [address] [phone] David Weir D.O. [address] [place] [phone] 11/13/2024 2:30 PM CDT Office Visit Department of Sports Medicine in [place], [place] [address] [place] [phone] Ahsan Talbert M.D., Ph.D. [address] [place] [phone] 12/12/2024 8:00 AM SPEECH LANGUAGE PATHOLOGY ASSISTANT Clinical Support [facility] in [address] [phone] Hamilton Beebe, Ph.D., L.P. [address] [place] [phone] 12/13/2024 8:00 AM SPEECH LANGUAGE PATHOLOGY ASSISTANT Clinical Support [facility] in [address] [phone] Hamilton Beebe, Ph.D., L.P. [address] [place] [phone] 12/14/2024 8:00 AM SPEECH LANGUAGE PATHOLOGY ASSISTANT Clinical Support [facility] in [address] [phone] Hamilton Beebe, Ph.D., L.P. [address] [place] [phone] 12/17/2024 8:00 AM SPEECH LANGUAGE PATHOLOGY ASSISTANT Clinical Support [facility] in [address] [phone] Hamilton Beebe, Ph.D., L.P. [address] [place] [phone] 12/18/2024 8:00 AM SPEECH LANGUAGE PATHOLOGY ASSISTANT Clinical Support [facility] in [address] [phone] Hamilton Beebe, Ph.D., L.P. [address] [place] [address] [phone] 12/19/2024 8:00 AM SPEECH LANGUAGE PATHOLOGY ASSISTANT Clinical Support [facility] in [address] [phone] Hamilton Beebe, Ph.D., L.P. [address] [place] [address] [phone] 12/20/2024 8:00 AM SPEECH LANGUAGE PATHOLOGY ASSISTANT Clinical Support [facility] in [address] [phone] Hamilton Beebe, Ph.D., L.P. [address] [place] [phone] 12/21/2024 8:00 AM SPEECH LANGUAGE PATHOLOGY ASSISTANT Clinical Support [facility] in [address] [phone] Hamilton Beebe, Ph.D., L.P. [address] [place] [address] [phone] 12/24/2024 8:00 AM SPEECH LANGUAGE PATHOLOGY ASSISTANT Clinical Support [facility] in [address] [phone] Hamilton Beebe, Ph.D., L.P. [address] [place] [phone] 12/25/2024 8:00 AM SPEECH LANGUAGE PATHOLOGY ASSISTANT Clinical Support [facility] in [address] [phone] Hamilton Beebe, Ph.D., L.P. [address] [place] [phone] 12/26/2024 8:00 AM SPEECH LANGUAGE PATHOLOGY ASSISTANT Clinical Support [facility] in [address] [phone] Hamilton Beebe, Ph.D., L.P. [address] [place] [phone] 12/27/2024 8:00 AM SPEECH LANGUAGE PATHOLOGY ASSISTANT Clinical Support [facility] in [address] [phone] Hamilton Beebe, Ph.D., L.P. [address] [place] [phone] 12/28/2024 8:00 AM SPEECH LANGUAGE PATHOLOGY ASSISTANT Clinical Support [facility] in [address] [phone] Hamilton Beebe, Ph.D., L.P. [address] [place] [phone] 12/31/2024 8:00 AM SPEECH LANGUAGE PATHOLOGY ASSISTANT Clinical Support [facility] in [address] [phone] Hamilton Beebe, Ph.D., L.P. [address] [place] [phone] 01/01/2025 8:00 AM SPEECH LANGUAGE PATHOLOGY ASSISTANT Clinical Support [facility] in [address] [phone] Haimlton Beebe, Ph.D., L.P. [address] [place] [phone] 01/02/2025 8:00 AM SPEECH LANGUAGE PATHOLOGY ASSISTANT Clinical Support [facility] in [place], [place] [address] [place] [phone] Hamilton Beebe, Ph.D., L.P. [address] [place] [phone] 01/07/2025 1:30 PM SPEECH LANGUAGE PATHOLOGY ASSISTANT Telemedicine Department of Urology in [place], [place] [address] [place] [phone] Danielle Pitt D.O. [address] [place] [phone] Scheduled Orders Name Type Priority Associated Diagnoses [...] as of this encounter Care Teams Manager Account Management Relationship Specialty Start Date End Date Elsewhere, Pcp PCP - General Internal Medicine 05/22/18 documented as of this encounter
--- OUTSIDE RECORDS SUMMARY | 2024-10-30 01:10 | XMS_ITS | Encounter Summary ---
Author Organization [facility] Address [address] [place] [address] Care Team Providers Care Resort Host Name Role Phone Elsewhere, Pcp Primary Care Provider Unavailabl e Reason for Referral * Behavioral Health (Routine) - Closed Specialty Diagnoses / Procedures Referred By Ye lund Referred To Contact Psychiatry / Psychiatry and Psychology Diagnoses Hypermobility Joint Pain Wrist Left Pain Hip Right Mike Salomon Jr., P.A.-C. [address] [place] [phone] Phone: tel: fax: [facility] Referral ID Status Reason Start Date Expiration Date Visits Re quested Visits Authorized [id number] Closed 09/18/2024 03/20/2026 1 1 Encounter Details Date Type Department Care Team (Late st Contact Info) Description 09/18/2024 Orders Only Department of Orthopedic Surgery in [place], [place] [address] [place] [phone] Mike Salomon Jr., P.A.-C. 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 Some college, no degree 05/24/2020 Sex and Gender Information Value Date Recorded Sex Assigned at Male 10/29/2020 12:38 PM CDT Legal Sex Male 1:45 PM GROUND SYSTEMS ENGINEER Gender Identity Male 07/15/2019 8:59 AM CDT Sexual Orientation Straight 07/15/2019 8: 59 AM CDT documented as of this encounter Plan of Treatment Upcoming Encounters Date Type Department Care Team (Latest Contact Info) Description 10/31/2024 9:15 AM CDT Clinical Communication Virtual Review in [place], [place] 200 [place] [address] 11/01/2024 9:00 AM CDT Appointment Department of Radiology, [facility], in [place], [place] [address] [place] [phone] Candida Lucero, FarshadAMackenzie-CMackenzie [address] [place] [phone] Discharge Disposition: Home or Self Care 11/01/2024 9:45 AM CDT Appointment Department of Radiology, [facility], in [place], [place] [address] [place] [phone] Candida Lucero P.AMackenzie-CMackenzie [address] [place] [phone] 11/01/2024 1:00 PM CDT Telemedicine Department of Physical Medicine and Rehabilitation in [place], [place] [address] [place] [phone] David Weir D.O. [address] [place] [phone] 11/13/2024 2:30 PM CDT Office Visit Department of Sports Medicine in [place], [place] [address] [place] [phone] Ahsan Talbert M.D., Ph.D. [address] [place] [phone] 12/12/2024 8:00 AM GROUND SYSTEMS ENGINEER Clinical Support [facility] in [place], [place] [address] [place] [phone] Hamilton Beebe, Ph.D., L.P. [address] [place] [phone] 12/13/2024 8:00 AM GROUND SYSTEMS ENGINEER Clinical Support [facility] in [address] [phone] Hamilton Beebe, Ph.D., L.P. [address] [place] [address] [phone] 12/14/2024 8:00 AM GROUND SYSTEMS ENGINEER Clinical Support [facility] in [address] [phone] Hamilton Beebe, Ph.D., L.P. [address] [place] [address] [phone] 12/17/2024 8:00 AM GROUND SYSTEMS ENGINEER Clinical Support [facility] in [address] [phone] Hamilton Beebe, Ph.D., L.P. [address] [place] [address] [phone] 12/18/2024 8:00 AM GROUND SYSTEMS ENGINEER Clinical Support [facility] in [address] [phone] Hamilton Beebe, Ph.D., L.P. [address] [place] [phone] 12/19/2024 8:00 AM GROUND SYSTEMS ENGINEER Clinical Support [facility] in [address] [phone] Hamilton Beebe, Ph.D., L.P. [address] [place] [phone] 12/20/2024 8:00 AM GROUND SYSTEMS ENGINEER Clinical Support [facility] in [address] [phone] Hamilton Beebe, Ph.D., L.P. [address] [place] [phone] 12/21/2024 8:00 AM GROUND SYSTEMS ENGINEER Clinical Support [facility] in [address] [phone] Hamilton Beebe, Ph.D., L.P. [address] [place] [phone] 12/24/2024 8:00 AM GROUND SYSTEMS ENGINEER Clinical Support [facility] in [address] [phone] Hamilton Beebe, Ph.D., L.P. [address] [place] [phone] 12/25/2024 8:00 AM GROUND SYSTEMS ENGINEER Clinical Support [facility] in [address] [phone] Hamilton Beebe, Ph.D., L.P. [address] [place] [phone] 12/26/2024 8:00 AM GROUND SYSTEMS ENGINEER Clinical Support [facility] in [address] [phone] Hamilton Beebe, Ph.D., L.P. [address] [place] [phone] 12/27/2024 8:00 AM GROUND SYSTEMS ENGINEER Clinical Support [facility] in [address] [phone] Hamilton Beebe, Ph.D., L.P. [address] [place] [phone] 12/28/2024 8:00 AM GROUND SYSTEMS ENGINEER Clinical Support [facility] in [address] [phone] Hamilton Beebe, Ph.D., L.P. [address] [place] [phone] 12/31/2024 8:00 AM GROUND SYSTEMS ENGINEER Clinical Support [facility] in [address] [phone] Hamilton Beebe, Ph.D., L.P. [address] [place] [phone] 01/01/2025 8:00 AM GROUND SYSTEMS ENGINEER Clinical Support [facility] in [address] [phone] Hamilton Beebe, Ph.D., L.P. [address] [place] [phone] 01/02/2025 8:00 AM GROUND SYSTEMS ENGINEER Clinical Support [facility] in [address] [phone] Hamilton Beebe, Ph.D., L.P. [address] [place] [phone] 01/07/2025 1:30 PM GROUND SYSTEMS ENGINEER Telemedicine Department of Urology in [place], [place] [address] [place] [phone] Danielle Pitt D.O. [address] [place] [phone] Scheduled Referrals Name Type Priority Associated Diagnoses [...] documented as of this encounter Care Teams Resort Host Relationship Specialty Start Date End Date Elsewhere, Pcp PCP - General Internal Medicine 05/22/18 documented as of this encounter
--- OUTSIDE RECORDS SUMMARY | 2024-10-30 01:10 | XMS_ITS ---
Author Organization [place] Address [facility] [place] [address] Care Team Providers Care Girls Swimming Coach Name Role Phone Kei Eugene MD Unavailable [phone] Eliana Guerra MD Primary Care Provider Eliana Guerra MD Unavailable [phone] Eliana Guerra MD Unavailable [phone] Unavailable Unavailable Charisma Obregonyvonne SNOW WORKSHOP MANAGER Unavailable [phone] Efrain Crow PA-C Unavailable [phone] Home Infusion Status:Enrolled (Active) Start date:03/05/2024 Enrollment date:03/14/2024 Enrollment reason:Identified using referral data Related service episodes:Enteral (Active) Case Team Name Relationship Phone Anastacia Rodriguez RD I Registered Dietitian Continued Care and Services Coordination This section includes services coordinated for Home Infusion. [facility] Name Services Phone [facility] ENTERAL ONLY Home Nursing [phone]
--- OUTSIDE RECORDS SUMMARY | 2024-10-30 01:10 | XMS_ITS ---
Author Organization [facility] Address [address] [place] [address] Care Team Providers Care Instructional Facilitator Name Role Phone Kei Eugene MD Unavailable [phone] Eliana Guerra MD Primary Care Provider [phone] Eliana Guerra MD Unavailable [phone] Eliana Guerra MD Unavailable [phone] Unavailable Unavailable Jody Obregon APRN BURGLAR ALARM OPERATOR Unavailable [phone] Efrain Crow PA-C Unavailable [phone] Enteral Status:Enrolled (Active) Start date:03/05/2024 Enrollment date:03/14/2024 Linked medications:Nutritional Supplements (Active) Linked problems:Epigastric abdominal pain (Active), Nausea (Active), Weight loss (Active) Related program episode:Home Infusion (Active) Continued Care and Services Coordination
--- OUTSIDE RECORDS SUMMARY | 2024-10-30 01:10 | XMS_ITS | Encounter Summary ---
Author Organization [facility] Address [address] [place] [address]. [place] [address] Care Team Providers Care Consulting Sales Manager Name Role Phone Kei Eugene MD Unavailable [phone] Eliana Guerra MD Primary Care Provider [phone] Eliana Guerra MD Unavailable [phone] Eliana Guerra MD Unavailable [phone] Unavailable Unavailable Jody Obregon APRN MATCH UP WORKER Unavailable [phone] Jody Obregon APRN MATCH UP WORKER Unavailable [phone] Efrain Crow PA-C Unavailable [phone] Regina Monroy RN Unavailable Unavailabl e Encounter Details Date Type Department Care Team (Late st Contact Info) Description 03/26/2024 Home Infusion [facility] [address] [place] [phone] Weight loss (Primary [...] in an abandoned building, in an overnight penitentiary, or couch-surfing.) Yes 03/03/2024 Are you worried [...] on file Legal Sex Male 9:18 AM PRECISION THREAD GRINDER OPERATOR Gender Identity Not on file Sexual Orientation Not on file documented as of this encounter Progress Notes * Anastacia Rodriguez, RD - 03/26/2024 8:49 AM CST [facility] Nutrition Follow up Anthropometrics/Weight Goals [...] per pt Enteral Nutrition Orders Enteral Formula: [email or web address] Standard 1.4 Rate/Frequency: 70ml/hr--up to 5 cartons/day [...] Anastacia Rodriguez RD, [facility], [facility] Home Infusion Dietitian ISION THREAD GRINDER OPERATOR documented in this encounter Plan of Treatment Scheduled Procedures Name Priority Associated Diagnoses Date/Ti me SURGICAL EXTRACTION, TOOTH Chronic pericoronitis documented as of this encounter Visit Diagnoses Diagnosis Weight loss- Primary Loss of weight documented in this encounter Care Teams Consulting Sales Manager Relationship Specialty Start Date End Date Eliana Guerra MD [address] [facility] [address] [place] [address] PCP - General Family Medicine 03/04/24 Kei Eugene MD [facility] [place] [address] Assigned Musculoskeletal Provider 03/01/24 Eliana Guerra MD [facility] [address] [place] [address] Home Infusion Following Provider Family Medicine 03/11/24 Eliana Guerra MD [facility] [address] [place] [address] Home Infusion Following Provider Family Medicine 03/14/[address] [facility] Registered Dietitian Dietitian 03/14/24 Jody Obregon APRN MATCH UP WORKER [facility] [address] [facility] [address] Home Infusion Following Provider 03/20/24 04/04/24 Jody Obregon APRN MATCH UP WORKER [facility] [address] [place] [facility] [place] [address] Home Infusion Following Provider 03/14/24 Efrain Crow PA-C [facility] [address] [facility] [address] Home Infusion Following Provider Gastroenterology 06/25/24 Regina Monroy RN [facility] [address] [facility] [address] [facility] Resource Team 07/16/24 07/17/24 documented as of this encounter
--- OUTSIDE RECORDS SUMMARY | 2024-10-30 01:10 | XMS_ITS | Encounter Summary ---
Author Organization [facility] Address [address] [place] [address] Care Team Providers Care Crimper Assembler Name Role Phone Elsewhere, Pcp Primary Care Provider Unavailabl e Reason for Visit * Reason Onset Date Comments Phone Call Requested 10/03/2024 Encounter Details Date Type Department Care Team (Latest Contact Info) Description 10/03/2024 Clinical Communication Department of Urology in [place], [place] [address] [place] [address] Kate Egan P.A.-C. 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 Some college, no degree 05/24/2020 Sex and Gender Information Value Date Recorded Sex Assigned at Male 10/29/2020 12:38 PM CDT Legal Sex Male 1:45 PM SHORT ORDER COOK Gender Identity Male 07/15/2019 8:59 AM CDT Sexual Orientation Straight 07/15/2019 8: 59 AM CDT documented as of this encounter Miscellaneous Notes * Telephone Encounter - Kate Egan P.A.-C. - 10/04/2024 3:59 PM CDT I spoke with the patient's primary care provider, Dr. Eliana Guerra from [facility]. Patient had recent positive culture at [facility] in anticipation for upcoming urodynamic study. [...] AM CDT Clinical Communication Virtual Review in [address] [phone] 11/01/2024 9:00 AM CDT Appointment Department of Radiology, [facility] in [address] [phone] Candida Lucero P.A.-C. [address] [place] [phone] Discharge Disposition: Home or Self Care 11/01/2024 9:45 AM CDT Appointment Department of Radiology, [facility], in [address] [phone] Candida Lucero P.A.-C. [address] [place] [phone] 11/01/2024 1:00 PM CDT Telemedicine Department of Physical Medicine and Rehabilitation in [address] [phone] David Weir D.O. [address] [place] [phone] 11/13/2024 2:30 PM CDT Office Visit Department of Sports Medicine in [address] [phone] Ahsan Talbert M.D., Ph.D. [address] [place] [phone] 12/12/2024 8:00 AM SHORT ORDER COOK Clinical Support [facility] in [address] [address] Hamilton Beebe, Ph.D., L.P. [address] [place] [phone] 12/13/2024 8:00 AM SHORT ORDER COOK Clinical Support [facility] in [address] [phone] Hamilton Beebe, Ph.D., L.P. [address] [place] [phone] 12/14/2024 8:00 AM SHORT ORDER COOK Clinical Support [facility] in [address] [phone] Hamilton Beebe, Ph.D., L.P. [address] [place] [phone] 12/17/2024 8:00 AM SHORT ORDER COOK Clinical Support [facility] in [address] [phone] Hamilton Beebe, Ph.D., L.P. [address] [place] [phone] 12/18/2024 8:00 AM SHORT ORDER COOK Clinical Support [facility] in [address] [phone] Hamilton Beebe, Ph.D., L.P. [address] [place] [phone] 12/19/2024 8:00 AM SHORT ORDER COOK Clinical Support [facility] in [address] [phone] Hamilton Beebe, Ph.D., L.P. [address] [place] [phone] 12/20/2024 8:00 AM SHORT ORDER COOK Clinical Support [facility] in [address] [phone] Hamilton Beebe, Ph.D., L.P. [address] [place] [phone] 12/21/2024 8:00 AM SHORT ORDER COOK Clinical Support [facility] in [address] [address] Hamilton Beebe, Ph.D., L.P. [address] [place] [phone] 12/24/2024 8:00 AM SHORT ORDER COOK Clinical Support [facility] in [address] [phone] Hamilton Beebe, Ph.D., L.P. [address] [place] [address] [phone] 12/25/2024 8:00 AM SHORT ORDER COOK Clinical Support [facility] in [address] [phone] Hamilton Beebe, Ph.D., L.P. [address] [place] [phone] 12/26/2024 8:00 AM SHORT ORDER COOK Clinical Support [facility] in [address] [address] Hamilton Beebe, Ph.D., L.P. [address] [place] [phone] 12/27/2024 8:00 AM SHORT ORDER COOK Clinical Support [facility] in [address] [address] Hamilton Beebe, Ph.D., L.P. [address] [place] [phone] 12/28/2024 8:00 AM SHORT ORDER COOK Clinical Support [facility] in [address] [phone] Hamilton Beebe, Ph.D., L.P. [address] [place] [phone] 12/31/2024 8:00 AM SHORT ORDER COOK Clinical Support [facility] in [address] [phone] Hamilton Beebe, Ph.D., L.P. [address] [place] [phone] 01/01/2025 8:00 AM SHORT ORDER COOK Clinical Support [facility] in [address] [phone] Hamilton Beebe, Ph.D., L.P. [address] [place] [phone] 01/02/2025 8:00 AM SHORT ORDER COOK Clinical Support [facility] in [address] [phone] Hamilton Beebe, Ph.D., L.P. [address] [place] [phone] 01/07/2025 1:30 PM SHORT ORDER COOK Telemedicine Department of Urology in [place], [place] [address] [place] [address] Danielle Pitt D.O. 200 [place] [address] documented as of this encounter Visit Diagnoses Not on filedocumented in this encounter Additional Health Concerns Assessment Noted Time PHQ-9 Depression Total Score: 5 07/07/19 24 9:17 PM CDT documented as of this encounter Care Teams Crimper Assembler Relationship Specialty Start Date End Date Elsewhere, Pcp PCP - General Internal Medicine 05/22/18 documented as of this encounter
--- OUTSIDE RECORDS SUMMARY | 2024-10-30 01:10 | XMS_ITS | Encounter Summary ---
Author Organization [facility] Address [address] [place] [address]. [place] [address] Care Team Providers Care Cooker Mechanic Name Role Phone Kei Eugene MD Unavailable [phone] Eliana Guerra MD Primary Care Provider [phone] Eliana Guerra MD Unavailable [phone] Eliana Guerra MD Unavailable [phone] Unavailable Unavailable Jody Obregon APRN STRIPER SPRAY GUN Unavailable + [phone] Jody Obregon APRN STRIPER SPRAY GUN Unavailable + [phone] Efrain Crow PA-C Unavailable [phone] Regina Monroy RN Unavailable Unavailabl e Encounter Details Date Type Department Care Team (Late st Contact Info) Description 04/03/2024 Home Infusion [facility] [address] [place] [phone] Social History Tobacco [...] on file 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 Gender Identity Not on file Sexual Orientation Not on file documented as of this encounter Plan of Treatment Scheduled Procedures Name Priority Associated Diagnoses Date/Ti me SURGICAL EXTRACTION, TOOTH Chronic pericoronitis documented as of this encounter Visit Diagnoses Not on filedocumented in this encounter Care Teams Cooker Mechanic Relationship Specialty Start Date End Date Eliana Guerra MD [address] [place] [address] PCP - General Family Medicine 03/04/24 Kei Eugene MD [address] [place] [address] Assigned Musculoskeletal Provider 03/01/24 Eliana Guerra MD [facility] [address] [facility] [address] Home Infusion Following Provider Family Medicine 03/11/24 Eliana Guerra MD [facility] [address] [facility] [address] Home Infusion Following Provider Family Medicine 03/14/[address] [facility] Registered Dietitian Dietitian 03/14/24 Jody Obregon APRN STRIPER SPRAY GUN [facility] [address] [place] [address] Home Infusion Following Provider 03/20/24 04/04/24 Jody Obregon APRN STRIPER SPRAY GUN [facility] [address] [place] [address] Home Infusion Following Provider 03/14/24 Efrain Crow PA-C [facility] [address] [place] [address] Home Infusion Following Provider Gastroenterology 06/25/24 Regina Monroy RN [facility] [address] [place] [address] [facility] Resource Team 07/16/24 07/17/24 documented as of this encounter
--- OUTSIDE RECORDS SUMMARY | 2024-10-30 01:10 | XMS_ITS | Encounter Summary ---
Author Organization [facility] Address [address] [place] [address]. [place] [address] Care Team Providers Care Operations Logistics Analyst Name Role Phone Kei Eugene MD Unavailable [phone] Eliana Guerra MD Primary Care Provider [phone] Eliana Guerra MD Unavailable [phone] Eliana Guerra MD Unavailable [phone] Unavailable Unavailable Jody Obregon APRN PAY CLERK Unavailable [phone] Efrain Crow PA-C Unavailable [phone] Regina Monroy RN Unavailable Unavailabl e Encounter Details Date Type Department Care Team (Late st Contact Info) Description 04/05/2024 Home Infusion [facility] [address] [place] [phone] Anastacia Rodriguez, JESUS ALBERTO Social History [...] in an abandoned building, in an overnight half-way, or couch-surfing.) Yes 03/03/2024 Are you worried [...] on file 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 Gender Identity Not on file Sexual Orientation Not on file documented as of this encounter Progress Notes * Anastacia Rodriguez, RD - 04/05/2024 11:38 AM CST [facility] Nutrition Follow up Anthropometrics/Weight Goals Height: 1.88 m (6' 2.02) Weight: 65.7 kg (144 lb 14.4 oz) IBW Male (kg): 82.24 BMI (kg): 17.97 FHI Dosing Weight: 64.3 kg (141 lb 12.1 oz) Weight history / comments:: 04/05/24: 143 lbs per pt Current Nutrition Orders Oral Diet: 500-1000kcal/day per pt Enteral Nutrition Orders Enteral Formula: Ideal Me Standard 1.4 Rate/Frequency: 70ml/hr--up to 5 cartons/day [...] and tolerance Anastacia Rodriguez RD, CNSC, LD [facility] Dietitian T AVAILABILITY LEADER documented in this encounter Plan of Treatment Scheduled Procedures Name Priority Associated Diagnoses Date/Ti me SURGICAL EXTRACTION, TOOTH Chronic pericoronitis documented as of this encounter Visit Diagnoses Not on filedocumented in this encounter Care Teams Operations Logistics Analyst Relationship Specialty Start Date End Date Eliana Guerra MD [address] [place] [address] PCP - General Family Medicine 03/04/24 Kei Eugene MD [address] [place] [address] Assigned Musculoskeletal Provider 03/01/24 Eliana Guerra MD [facility] [address] [place] [address] Home Infusion Following Provider Family Medicine 03/11/24 Eliana Guerra MD [facility] [address] [place] [address] Home Infusion Following Provider Family Medicine 03/14/[address] [facility] Registered Dietitian Dietitian 03/14/24 Jody Obregon APRN PAY CLERK Home Infusion Following Provider 03/14/24 Efrain Crow PA-C [facility] [address] [address] Home Infusion Following Provider Gastroenterology 06/25/24 Regina Monroy, KASIE [facility] [address] [place] [address] [facility] Resource Team 07/16/24 07/17/24 documented as of this encounter
[2024-10-30 01:29] VITALS: BP 140/92; PULSE 108; RESP 16; TEMP 37.1; O2SAT 97; BMI 22.6
--- NOTE | 2024-10-30 01:44 | ED.GENADULT ---
HPI - General Adult General Chief complaint: Alcohol/Intoxication Stated complaint: altered mental status Time Seen by Provider: 10/30/24 01:19 History of Present Illness HPI narrative: EMS states that they were called to check on pt after a 3rd democrat reported that he was making suicidal statements. EMS reports that the patient has been cooperative but unable to stay on track with a conversation due to how intoxicated he is. Pt told EMS that he is very depressed and in crisis because a close friend recently killed themselves. He told EMS that he injected 4 shots of vodka into his G-tube prior to EMS arrival. They report that his PBT on scene 0 .204 24-year-old young man presenting to the emergency department via EMS with concern of alcohol intoxication and suicidal statements. Apparently a close friend killed himself 5 days ago. Paramjit has been struggling with this. Sounds as though things came more to ahead tonight when he reached out to a [id number] who he says has experience with these sort of feelings. Paramjit apparently hates to drink but he has been drinking over this last week initially an effort to control low back/flank pain which he says flares with urinary tract infections. He is becoming more upset about his state in life with recurrent urinary tract infections and chronic pain. He does have a history of scoliosis musculoskeletal pain problems. 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 Apparently did apply to this facility but there are some outstanding legal matters that limit his options he said. He says he would love to work with some kids and just help them; especially at [place] at the same that he was helped. Does have a local primary provider who he thinks is wonderful. He does though sometimes feel dismissed by the medical community. He has been struggling with some musculoskeletal issues, surgeries. Recently was casted extensively with the labral tear in his hip; I believe had surgery for this. He did use a lot of marijuana tonight as well and sounds like has been using it regularly to deal with chronic pain. He hates to drink but has been as noted over this last week and put 4 shots of vodka in to his G-tube. He does not want to but he does not appreciate the point of continuing in current state of affairs. He does brighten talking about potential employment that he would like to do as well as newly having a girlfriend who makes a great gluten and dairy free lasagna though he himself does not need to avoid either. His mother is away on a trip; he is unclear where at this time. He lives in his mother's home. Does have regular visits from therapists and home health. Records indicate that he does take fluoxetine. He admits that he does struggle with anxiety. He says he does not take any of the medications that he is prescribed. However it does sound as though he is currently taking Bactrim from last visit to this emergency department. Had been seeing a psychiatrist but with focus on musculoskeletal concerns it sounds as though he has not been back in a while. He tends to get out of it he says also when he gets urinary tract infections. Starts not really knowing where he is and speaking nonsense. He has frequent related falls. He did fall after returning from ER 4 days ago with UTI diagnosed but it is not apparent that he injured himself. These recurrent urinary tract just ?suck. Has detrusor muscle weakness? He does self cath and says that he must be doing it incorrectly; somehow contributing to these infections. Reviewing urine culture from 10/26/2024 shows Morganella and Klebsiella species both sensitive to Bactrim Related Data Home Medications ?Medication ?Instructions ?Recorded ?Confirmed diclofenac sodium 1 % topical gel 2 g topical QID 11/08/23 10/26/24 famotidine 40 mg tablet 40 mg PO DAILY 11/08/23 10/26/24 fluoxetine 20 mg capsule 20 mg PO DAILY 05/17/24 10/26/24 metoclopramide HCl 5 mg tablet 5 mg PO TID 05/17/24 10/26/24 Previous Rx's ?Medication ?Instructions ?Recorded ondansetron 4 mg disintegrating 4 mg PO Q8H PRN nausea and 12/02/23 tablet vomiting #10 tabs sulfamethoxazole 800 1 tab PO BID #14 tabs 10/26/24 mg-trimethoprim 160 mg tablet (Bactrim DS) Allergies Allergy/AdvReac Type Severity Reaction Status Date / Time No Known Allergies Allergy Verified 10/30/24 01:38 Review of Systems Status of ROS: Reports: 6 or more systems reviewed and unremarkable except as noted in History and below [facility] Medical History Congenital pectus excavatum ?Q67.6 - Pectus excavatum (ICD-10) 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) ?Q98.4 - Klinefelter syndrome, unspecified (ICD-10) 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) ?Q79.60 - Kamari-Danlos syndrome, unspecified (ICD-10) 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) ?M26.609 - Unspecified temporomandibular joint disorder, unspecified side (ICD-10) Labral tear of right hip joint (12/12/19) ?S73.191A - Other sprain of right hip, initial encounter (ICD-10) Scoliosis (01/04/18) ?M41.9 - Scoliosis, unspecified (ICD-10) Pes planus (03/23/18) ?M21.40 - Flat foot [pes planus] (acquired), unspecified foot (ICD-10) Pectus excavatum (12/29/13) ?Q67.6 - Pectus excavatum (ICD-10) Pain in left wrist (07/01/20) ?M25.532 - Pain in left wrist (ICD-10) Hip pain, bilateral (12/12/19) ?M25.551 - Pain in right hip (ICD-10) ?M25.552 - Pain in left hip (ICD-10) Myofascial pain syndrome (09/24/20) ?M79.18 - Myalgia, other site (ICD-10) Hypogonadism male (03/23/18) ?E29.1 - Testicular hypofunction (ICD-10) Foot drop, left ?M21.372 - Foot drop, left foot (ICD-10) Exertional headache (04/18/18) ?G44.84 - Primary exertional headache (ICD-10) De Quervain's tenosynovitis (05/23/20) ?M65.4 - Radial styloid tenosynovitis [de Quervain] (ICD-10) Chronic back pain (04/21/23) ?M54.9 - Dorsalgia, unspecified (ICD-10) ?G89.29 - Other chronic pain (ICD-10) Bilateral tinnitus (09/24/20) ?H93.13 - Tinnitus, bilateral (ICD-10) Atrophy of testis (03/23/18) ?N50.0 - Atrophy of testis (ICD-10) 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) ?M26.639 - Articular disc disorder of temporomandibular joint, unspecified side (ICD-10) Arthralgia of temporomandibular joint (09/24/20) ?M26.629 - Arthralgia of temporomandibular joint, unspecified side (ICD-10) Acquired pectus carinatum ?M95.4 - Acquired deformity of chest and rib (ICD-10) Dyspepsia ?R10.13 - Epigastric pain (ICD-10) Malnutrition ?E46 - Unspecified protein-calorie malnutrition (ICD-10) Instability of left hip joint ?M25.352 - Other instability, left hip (ICD-10) Wrist joint instability ?M25.339 - Other instability, unspecified wrist (ICD-10) 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 - Kamari-Danlos syndrome, unspecified (ICD-10) Scaphoid fracture ?S62.009A - Unspecified fracture of navicular [scaphoid] bone of unspecified wrist, initial encounter for closed fracture (ICD-10) Chronic patellofemoral pain of left knee ?M25.562 - Pain in left knee (ICD-10) ?G89.29 - Other chronic pain (ICD-10) Tear of triangular fibrocartilage complex (TFCC) of right wrist (~07/2021) ?S63.591A - Other specified sprain of right wrist, initial encounter (ICD-10) Surgical History History of surgery ?Z98.890 - Other specified postprocedural states (ICD-10) Status post arthroscopy of hip ?Z98.890 - Other specified postprocedural states (ICD-10) History of carpal tunnel surgery of left wrist (02/02/21) ?Z98.890 - Other specified postprocedural states (ICD-10) Social History Narrative: He lives with his mother. His mother has left for trip to [place] 9 days ago. He is mostly home alone. His father, who has significant disabilities, comes to stay with him at times. He also has therapists and home health who come into the home daily. 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 He has been unable to work recently because of his multiple disabilities. He does not smoke. He drinks alcohol a couple times a week. He occasionally uses cannabis. What is your current living situation?: I presently have a place to live Problems where you live: no known problems Problems where you live details: n/a In the past 12 months, utilities in danger of being shut off: no In past 12 months, lack of transportation kept you from medical appts, meetings, work, or getting things needed for daily living: yes In the past 12 mos, have been you worried that your food would run out before you had money to buy more?: never true In the past 12 mos, the food you bought just didn't last and you didn't have money to buy more?: never true Smoking Status: Never smoker Do you use any of these nicotine containing products: None Second hand tobacco smoke exposure: Yes (occasionally) How often do you have a drink containing alcohol: 2-4 times a month How many standard drinks containing alcohol do you have on a typical day: 3 or 4 How often do you have six or more drinks on one occasion: Less than monthly AUDIT-C Alcohol total score: 4 Non-prescribed substance use: denies use Caffeine: Yes (rarely) How often does anyone, including family, friends and others, physically hurt you: never How often does anyone, including family, friends and others, insult or talk down to you: never How often does anyone, including family, friends and others, threaten you with harm: never How often does anyone, including family, friends and others, scream or curse at you: never service: No Health Related Social Needs: transportation insecurity (Z59.82) Exam Narrative: Exam Narrative: Pleasant. Tremulous. Intermittently a little tearful. Eyes are injected. Slurring his words. Repetitive and tangential. Mood is depressed and affect is congruent. Clearly intoxicated. I do not appreciate evidence of self-harm on his person. Lungs are clear. Heart in elevated to tachycardic rate in a regular rhythm. Abdomen is flat and nontender. I am not demonstrably able to reproduce pain across his low back as he indicates location but later noting that that exam definitely made his pain worse. Does have some vomitus or sputum of some sort in his left chest paper scrub top. Spandex shorts have some darkening consistent with urinary incontinence. Const: Vital Signs, click to edit/add: Vital Signs - 24 hr 10/30/24 01:29 10/30/24 02:19 Temperature 98.7 F Pulse Rate [Pulse Oximeter] 108 H Respiratory Rate 16 Blood Pressure [Ri ght Upper Arm] 140/92 H Pulse Oximetry 97 96 Oxygen Delivery Me thod Room Air Documenting provider has reviewed patient's vital signs: yes Course Vital Signs Vital signs: Initial Vital Signs Temperature 98.7 F 10/30/24 01:29 Temperature Source Temporal Artery Scan 10/30/24 01:29 Pulse Rate 108 H 10/30/24 01:29 Pulse Rhythm Regular 10/30/24 01:29 Respiratory Rate 16 10/30/24 01:29 Blood Pressure 140/92 H 10/30/24 01:29 Blood Pressure Mean 108 H 10/30/24 01:29 Pulse Oximetry 97 10/30/24 01:29 Oxygen Delivery Method Room Air 10/30/24 01:29 Vital Signs Temperature 98.7 F 10/30/24 01:29 Pulse Rate 108 H 10/30/24 01:29 Respiratory Rate 16 10/30/24 01:29 Blood Pressure 140/92 H 10/30/24 01:29 Pulse Oximetry 97 10/30/24 01:29 Oxygen Delivery Method Room Air 10/30/24 01:29 Temperature 98.7 F 10/30/24 01:29 Pulse Rate 108 H 10/30/24 01:29 Respiratory Rate 16 10/30/24 01:29 Blood Pressure 140/92 H 10/30/24 01:29 Pulse Oximetry 96 10/30/24 02:19 Oxygen Delivery Method Room Air 10/30/24 01:29 Medications Administered Medications: Discontinued Medications Generic Name Dose Route Start Last Admin Trade Name Freq PRN Reason Stop Dose Admin Sodium Chloride 1,000 mls @ 1,000 mls/hr 10/30/24 02:18 10/30/24 02:31 0.9 % Sodium Chloride 1000 Ml IV 10/30/24 03:17 1,000 mls/hr .Q1H ONE Administration Ketorolac Tromethamine 30 mg 10/30/24 02:18 10/30/24 02:32 Ketorolac 30 Mg/Ml Inj IVP 10/30/24 02:19 30 mg ONCE ONE Administration Olanzapine 10 mg 10/30/24 03:20 10/30/24 03:27 Olanzapine 5 Mg Tab.Rapdis PO 10/30/24 03:21 10 mg ONCE ONE Administration Ondansetron HCl 4 mg 10/30/24 02:18 10/30/24 02:33 Ondansetron 2 Mg/Ml Inj IVP 10/30/24 02:19 4 mg ONCE ONE Administration Medical Decision Making MDM Narrative Medical decision making narrative: I discover later from nursing that with regard to this friend that has committed suicide; Paramjit said that when his friend asked, he had told him to go ahead and suicide. I do not think Paramjit to be clearly suicidal and furthermore these thoughts are amplified by effect of alcohol and possibly marijuana. He is exhibiting foresight, forethought. Needs to sober up and be reassessed. Will check standard labs looking for evidence of worsening infection; also if psychiatric hospitalization is needed. Have ordered for IV hydration Zofran and ketorolac During time in his exam room, Paramjit has been picked off the ground a few times. Continues to spin out of bed and be generally restless. With concerns of safety and to help rest, be less agitated was offered a tablet of Zyprexa which he did take. On reassessment has been sleeping. 0750 -- Went to evaluate this morning. Appears to be sleeping although subtly indicates with slight nod that he is ready to talk again. Does not however open his eyes with repeated request or respond vocally to questions. Dissipating handing off at change of shift Medical Records Medical records reviewed: Yes I reviewed the patient's medical records Lab Data Lab results reviewed: Yes I reviewed the patient's lab results Labs: Lab Results 10/30/24 10/30/24 Range/Units 02:40 06:16 WBC 6.94 (4.50-11.00) K/uL RBC 5.65 (4.30-5.90) m/uL Hgb 16.0 (13.5-17.5) gm/dL Hct 46.7 (37.0-53.0) % MCV 83 (80-100) fL MCH 28 (26-34) pg MCHC 34 (32-36) gm/dL RDW Coeff of Mele 12.6 (11.5-15.5) % Plt Count 293 (140-440) K/uL Neut % (Auto) 56.6 (42.0-72.0) % Lymph % (Auto) 33.1 (20-44) % Garrard % (Auto) 7.6 (0.0-11.0) % Eos % (Auto) 2.0 (0.0-7.0) % Baso % (Auto) 0.6 (0.0-3.0) % Neut # (Auto) 3.92 (1.7-7.0) K/uL Lymph # (Auto) 2.30 (0.90-2.90) K/uL Garrard # (Auto) 0.50 (0.00-0.90) K/UL Eos # (Auto) 0.14 (0.00-0.50) K/uL Baso # (Auto) 0.04 (0.00-0.30) K/uL Abs Immat Gran (auto) 0.01 (0.00-0.30) K/uL Imm/Tot Granulo (auto) 0.1 % Sodium 149 (135-149) mmol/L Potassium 4.1 (3.6-5.1) mmol/L Chloride 109 (96-114) mmol/L Carbon Dioxide 26 (20-32) mmol/L Anion Gap 14 (7-15) mEq/L BUN 11 (5-24) mg/dL Creatinine 0.9 (0.5-1.5) mg/dL Estimated Creat Clear 138.85 Estimated GFR 122 ml/min Glucose 99 (60-115) mg/dL Calcium 9.4 (8.4-10.6) mg/dL C-Reactive Protein 0.9 (0.5-1.0) mg/dL Salicylates < 1.0 L (1.0-10) mg/dL Acetaminophen < 10.0 (10.0-30.0) ug/mL Ethyl Alcohol 0.27 H (0.01-0.03) % Lab Acknowledgement Test Added Discharge Plan Discharge Clinical Impression: Alcohol intoxication, Suicide ideation Patient Disposition: Home w/ Parent or Adult Prescriptions: No Action metoclopramide HCl 5 mg tablet 5 mg PO TID fluoxetine 20 mg capsule 20 mg PO DAILY sulfamethoxazole-trimethoprim [Bactrim DS] 800-160 mg tablet 1 tab PO BID Qty: 14 0RF famotidine 40 mg tablet 40 mg PO DAILY diclofenac sodium 1 % gel 2 g topical QID ondansetron 4 mg tablet,disintegrating 4 mg PO Q8H PRN (Reason: nausea and vomiting) Qty: 10 0RF Follow Up/Referrals: Eliana Guerra MD [Primary Care Provider, Family Practice] Stand Alone Forms: [employer] Info Instructions
[2024-10-30 02:19] VITALS: O2SAT 96
[2024-10-30] MEDS: ONDANSETRON 2 MG/ML inj 4 MG IVP (02:33)
[2024-10-30 03:01] LABS: Hematocrit* 46.7 % (37.0-53.0); Hemoglobin* 16.0 gm/dL (13.5-17.5); Immature Granulocytes Abs Auto 0.01 K/uL (0.00-0.30); Immature Granulocytes Pct Auto 0.1 %; Lymphocytes Absolute Auto 2.30 K/uL (0.90-2.90); Mean Corpuscular HGB Conc 34 gm/dL (32-36); Mean Corpuscular Hemoglobin 28 pg (26-34); Mean Corpuscular Volume 83 fL (80-100); RDW Coefficient of Variation % 12.6 % (11.5-15.5); Red Blood Count* 5.65 m/uL (4.30-5.90); White Blood Count* 6.94 K/uL (4.50-11.00)
[2024-10-30 03:06] LABS: Slide Review Reflex No
[2024-10-30 03:15] LABS: Chloride* 109 mmol/L (96-114); Sodium* 149 mmol/L (135-149)
[2024-10-30 03:16] LABS: Potassium* 4.1 mmol/L (3.6-5.1)
[2024-10-30 03:18] LABS: Blood Urea Nitrogen* 11 mg/dL (5-24); Creatinine* 0.9 mg/dL (0.5-1.5); Est. Creatinine Clearance* 138.85; Estimated Glomerular Filt Rate 122 ml/min
[2024-10-30 03:19] LABS: Anion Gap 14 mEq/L (7-15); Calcium* 9.4 mg/dL (8.4-10.6); Carbon Dioxide* 26 mmol/L (20-32); Ethanol* 0.27 % (0.01-0.03); Glucose* 99 mg/dL (60-115)
[2024-10-30 06:30] LABS: Acetaminophen* < 10.0 ug/mL (10.0-30.0); Salicylate* < 1.0 mg/dL (1.0-10)
== END 2024-10-30 13:10 | disposition home or self-care (01) ==
PROVIDERS: Family Medicine; Emergency Provider Emergency Medicine; PCP Family Medicine
DX: F10.129 Alcohol abuse with intoxication, unspecified (principal); R45.851 Suicidal ideations; Z93.1 Gastrostomy status
CPT/HCPCS: 36415; 80048; 80143; 80179; 80306; 81001; 82077; 85025; 86140; 99284; A9270; J1885; J2405; J7030

== ENCOUNTER 2024-10-30 11:44 | Outpatient (CLI) | payer BC, SELFPAY | END 2024-10-30 11:45 | disposition home or self-care (01) | LOC: AMB 10-31 11:49 | PROVIDERS: PCP Family Medicine; Visit Provider Family Medicine | DX: F10.129 Alcohol abuse with intoxication, unspecified (principal) | CPT/HCPCS: A0425; A0429 ==

== ENCOUNTER 2024-11-07 08:19 | Outpatient (CLI) | payer BC, SELFPAY ==
--- NOTE | 2024-11-07 08:15 | CRLHL7_ITS ---
For Patients: As a result of the Century Cures Act, medical imaging exams and procedure reports are released immediately into your electronic medical record. You may view this report before your referring provider. If you have questions, please contact your health care provider. Indication: Right hip pain. Procedure : Informed consent was obtained. The site was marked. Time-out was performed. The skin of the right hip was cleansed with ChloraPrep. A sterile drape was placed. 8 cc of 1 percent lidocaine was administered for superficial anesthesia. Subsequently a 22 gauge spinal needle was introduced into the right hip joint under intermittent fluoroscopic guidance. Injection of 2 cc nonionic Omnipaque 240 contrast confirmed intra-articular location. Subsequently 11 cc of dilute gadolinium were injected. The needle was removed and hemostasis achieved with direct pressure. A dressing was placed. The patient tolerated the procedure well without immediate complication and was immediately sent to MRI for imaging. Total fluoroscopy time 33 seconds. Impression: Successful fluoroscopically guided right hip arthrogram for MRI. Dictated by Gaurav Saldaña MD @ 11/07/2024 2:15:24 PM (Electronically Signed)
--- NOTE | 2024-11-07 09:15 | CRLHL7_ITS ---
For Patients: As a result of the Century Cures Act, medical imaging exams and procedure reports are released immediately into your electronic medical record. You may view this report before your referring provider. If you have questions, please contact your health care provider. INDICATION: Hip pain. COMPARISON: MR arthrogram 21 April 2023. TECHNIQUE: Coronal T1 and PD fat-sat whole this with axial, oblique axial, coronal and sagittal T1 fat sat and axial and sagittal PD fat saturated sequences with dilute intra-articular gadolinium. FINDINGS: Anatomic alignment right hip. Uniform well-maintained cartilage thickness and signal. Uniform low signal labrum. Marrow changes at the anterior through superior rim 4 anchor sites from prior labral repair. No recurrent or residual tear of significance appreciated. No intra-articular body or synovitis. Normal communication of joint fluid with iliopsoas bursa which tracks up under the muscle nearly to the top of the iliac crest. Head neck offset may be exaggerated by prior femoral plasty. Peritrochanteric soft tissues are normal intact gluteal tendons. Intact hamstring origin. IMPRESSION: No recurrent labral tear. Intact repair. Query prior femoroplasty. Overall, no meaningful change appreciated versus comparison MR. Dictated by Seth Avila MD @ 11/07/2024 3:55:51 PM (Electronically Signed)
== END 2024-11-07 08:20 | disposition home or self-care (01) ==
LOC: RAD 08:20
PROVIDERS: PCP Family Medicine; Visit Provider Physician Assistant
DX: M25.551 Pain in right hip (principal)
CPT/HCPCS: 27093; 73525; 73722; 77002; A9575; Q9966

== ENCOUNTER 2025-01-04 10:56 | Emergency (ER) | payer BC, SELFPAY ==
--- OUTSIDE RECORDS SUMMARY | 2024-11-18 16:30 | XMS_ITS | Encounter Summary ---
Author Organization [facility] Address [address] [place] [address] Care Team Providers Care Signing Agent Name Role Phone Eliana Guerra MD Primary Care Provider [phone] Reason for Visit * Reason Comments Forms/Letter Entered automaticall y based on patient selection in [facility]. Encounter Details Date Type Department Care Team (Late st Contact Info) Description 11/18/2024 5:30 PM CDT E-Visit Orthopedics at [address] [address] Anahi Van MD [address] [place] [id number] Chief Comp: Forms/Letter Social History Tobacco Use Types Packs/Day Years Used Date Smoking Tobacco: Never Smokeless Tobacco: Never Alcohol Use Standard Drinks/Week Comments Yes 0 (1 standard drink = 0.6 oz pur e alcohol) occasional [facility] Utilities Answer Date Recorded In the past 12 months has e [employer], gas, oil, or water [employer] threatened to shut off services in your [...] on file Legal Sex Male 5:33 PM FREIGHT AGENT Gender Identity Not on file Sexual Orientation Not on file documented as of this encounter Plan of Treatment Upcoming Encounters Date Type Department Care Team (Late st Contact Info) Description 01/11/2025 9:40 AM FREIGHT AGENT Appointment [facility] [address] [place], [place] [phone] Roz Crow, [address] [place] [phone] 01/22/2025 10:40 AM FREIGHT AGENT Appointment Orthopedics at [address] [place], [place] [id number] Anahi Van MD [address] [place] [id number] documented as of this encounter Visit Diagnoses Not on filedocumented in this encounter Care Teams Signing Agent Relationship Specialty Start Date End Date Eliana Guerra MD [address] [place] [address] PCP - General Family Practice 12/04/19 documented as of this encounter
--- OUTSIDE RECORDS SUMMARY | 2024-11-20 07:00 | XMS_ITS | Encounter Summary ---
Author Organization [facility] Address [address] [place] [id number] Care Team Providers Care Cableman Name Role Phone Elsewhere, Pcp Primary Care Provider Unavailabl e Reason for Visit * Behavioral Health (Routine) - Authorized Specialty Diagnoses / Procedures Referred By Contact Referred To Contact Psychiatry / [facility] Rehabilitation [facility] Diagnoses Chronic Pain Syndrome Procedures [facility] Programs MO GROUP THERAPY MO HLTH BHV IVNTJ GRP 1ST 30 MO HLTH BHV IVNTJ GRP EA ADDL 15 MO HOME MGMT TRAIN EA 15MIN PT MO PSY TST INTERP & FEEDBACK INIT HR Hamilton Beebe, Ph.D., L.P. [address] [place] [phone] Phone: tel:[phone] fax:[phone] [place] Referral ID Status Reason Start Date Expiration Date V isits Requested Visits Authorized [id number] Authorized 10/10/2024 02/06/2025 17 17 Encounter Details Date Type Department Care Team (Latest Contact Info) Description 11/20/2024 8:00 AM CDT Clinical Support [facility] in [place], [place] [address] [place] [phone] Hamilton Beebe, Ph.D., L.P. 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 Some college, no degree 05/24/2020 Sex and Gender Information Value Date Recorded Sex Assigned at Male 10/29/2020 12:38 PM CDT Legal Sex Male 1:45 PM [employer] Gender Identity Male 07/15/2019 8:59 AM CDT Sexual Orientation Straight 07/15/2019 8: 59 AM CDT documented as of this encounter Progress Notes * David Malhotra M.D. - 11/20/2024 8:00 AM CDT SUBJECTIVE CHIEF COMPLAINT/PURPOSE OF VISIT Paramjit Boyce was admitted to the [facility] for comprehensive rehabilitation for chronic widespread pain due to connective tissue disorder. HISTORY OF PRESENT ILLNESS The full interdisciplinary [facility] team (consisting of the [facility] physician, psychologist, pharmacist, CAVALRY SCOUT or SENIOR RESERVATIONS AGENT, RN, PT, OT) met this morning to review the patient's treatment course. The patient participated in a brief 10 minute discussion with myself and members of the interdisciplinary [facility] treatment team regarding the treatment team's view of the patient's progress, medication changes, and areas for continued work that were discussed in the interdisciplinary team meeting this morning under my direction as the [facility] physician. The patient is involved in all aspects of the rehabilitation program, including group sessions and is making good progress. He is off to a good start, engaging, asking appropriate question, and receptive in the program.Mr. Boyce reported finding the sleep group to be helpful. Medications Ordered Prior to Encounter[1] OBJECTIVE MENTAL STATUS EXAMINATION (MSE) is adequately groomed, in no apparent distress. Good eye contact. No abnormal movements noted. Alert. Oriented to person, place, date, and time. Cooperative. Euthymic affect with full-range. Regular rate, rhythm, volume, and tone of speech. Thought form is linear. No abnormalities of thought content. No hallucinations, illusions, or delusions described or elicited. No apparent abnormalities in attention or concentration. No reported suicidal thoughts or plans. ASSESSMENT / PLAN Paramjit Boyce is actively engaged in pain rehabilitation and has made satisfactory progress toward therapeutic goals. 1.Interdisciplinary Rehabilitation: The patient will continue to be involved in all aspects of the program including physical therapy, occupational therapy, and educational group sessions. 2. Follow up Care:It was a pleasure having the opportunity today to meet and speak with Mr. Boyce. Visit Diagnoses: Chronic widespread pain secondary to a connective tissue disorder Signed by: David Malhotra M.D. 11/17/2024 3:28 PM CDT [1] Current Outpatient Medications on File Prior to Visit Medication Sig Dispense Refill acetaminophen (TylenoL) 325 mg tablet Take 650 mg by mouth every 6 (six) hours as needed. aspirin [address] tablet Take 81 mg by mouth 2 (two) times a day. With meals (Patient not taking: Reported on 11/16/2024) bisacodyL (Dulcolax) 10 mg suppository Insert 10 mg into the rectum daily as needed. cyclobenzaprine (FlexeriL) 5 mg tablet Take 5 mg by mouth 3 (three) times a day as needed. diazePAM (Valium) 5 mg tablet Take 5 mg by mouth every 6 (six) hours as needed. famotidine (Pepcid) 40 mg tablet Take 20 mg by mouth 2 (two) times a day. FLUoxetine (PROzac) 20 mg capsule Take 20 mg by mouth every morning. gabapentin (Neurontin) 300 mg capsule Take 900 mg by mouth 3 (three) times a day. ibuprofen 400 mg tablet Take 400 mg by mouth every 6 (six) hours as needed. loratadine (Claritin) 10 mg tablet Take 10 mg by mouth daily. LORazepam (Ativan) 0.5 mg tablet Take 0.5 mg by mouth at bedtime as needed. methocarbamoL (Robaxin) 500 mg tablet Take 500 mg by mouth 3 (three) times a day as needed. metoclopramide (Reglan) 5 mg tablet Take 5 mg by mouth 3 (three) times a day before meals. mirtazapine (Remeron) 15 mg tablet Take 15 mg by mouth at bedtime. omeprazole (PriLOSEC) [address] capsule TAKE 1 CAPSULE(40 MG) BY MOUTH DAILY BEFORE A MEAL ondansetron ODT (Zofran-ODT) 4 mg disintegrating tablet DISSOLVE 1 TABLET ON THE TONGUE EVERY 8 HOURS NEEDED FOR NAUSEA OR VOMITING (Patient not taking: Reported on 11/16/2024) oxyBUTYnin (Ditropan-XL) 10 mg 24 hr tablet Take 10 mg by mouth daily. phenazopyridine (Pyridium) 200 mg tablet polyethylene glycol (Miralax) 17 gram powder packet Take 17 g by mouth daily as needed. (Patient not taking: Reported on 11/16/2024) promethazine (Phenergan) 12.5 mg tablet Take 12.5 mg by mouth. sulfamethoxazole-trimethoprim (Bactrim DS) 800-160 mg per tablet Take 1 tablet by mouth 2 (two) times a day. tadalafiL (Cialis) 5 mg tablet Take 1 tablet (5 mg total) by mouth daily. (Patient not taking: Reported on 11/16/2024) 90 tablet 0 tiZANidine (Zanaflex) 2 mg capsule Take 2 mg by mouth every 8 (eight) hours as needed. traZODone (DesyreL) 50 mg tablet Take 50 mg by mouth at bedtime. triamcinolone (Kenalog) 0.1 % cream Apply 1 Application topically as needed for rash. No current facility-administered medications on file prior to visit. * Jak Laurent P.T. - 11/20/2024 8:00 AM CDT Physical Therapy Pain Rehabilitation Program Progress Note SUBJECTIVE Patient's Name: Paramjit Boyce Reason for Referral/Referring Provider: Reason for Referral: OT/PT for Pain Rehabilitation Program.Referred by Kristi Sommer APRN, CAVALRY SCOUT, M.S. Medical Diagnosis: 1. Pain Generalized 2. Decline Functional Status [R53.81] 3. Chronic Pain Syndrome [G89.4] 4. Weakness Leg Left [M62.81] 5. Weakness Leg Right [M62.81] No data recorded Payor: [facility] [place] CARE / Plan: [facility] [employer] HMO / Product Type: Medicaid HMO / Other Precautions: fall risk Patient/Caregiver Goals: Paramjit would like to return to working 20 hours per week. Paramjit would like to feel like his status is stable or improving. 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 OBJECTIVE Pain: As documented by nursing in the medical record. Individual 1:1 Treatment: Individual Treatment Treatment, Instruction, and Home Program: Therapeutic exercise Individual Treatment Comments: Paramjit returned for continued exercise instruction as noted. He trialed recumbent bike, Physiostep and Nustep, finding the NuStep the best fit for him as it allowed use of his right upper extremity and allowed space for his left foot and ankle in cast and cast boot. Client reports that he was diagnosed with paraparesis when he was hospitalized at [facility] in June of 2024, following a fall, without fracture of the spine on imaging. Handouts provided today: Sideways Walk Using an Elastic Band [id number], Single Leg (3-way Kick) andVestibular Exercises (custom), Step up and Over (MedBridge), Triceps Strengthening Using an ElasticBand (Standing) [id number], Plank (Front And Side) [id number], Sit backs, Hamstring stretch: [id number] Assessment Clinical Impression: Paramjit completed exercise instruction this session, and will benefit from guided review of exercises at next session, before transitioning to group format for his exercise routine. Functional Goals and Time Frames: PT Goal #1: Client will formulate/demonstrate an appropriate progression of strengthening exercisesto advance 2 pounds more or advance 2 or more levels for resistance band than starting weight/resistance by dismissal, to facilitate completion of work-related and household tasks. PT Goal #2: Client will perform 15 minutes of aerobic activity at appropriate intensity level (target heart rate/perceived exertion scale) by dismissal, to facilitate engagement in the community and workplace. PT Goal #3: Client will understand exercise guidelines and demonstrate independence with all exercises performed while in the Pain Rehabilitation Program by dismissal, to facilitate well-being and assist with self-management of chronic condition. PT Goal #4: Client will report >2 point average improvement on the Patient Specific Functional Scale to demonstrate meaningful improvements in their perceived function. Plan Treatment Plan: Future sessions will incorporate close supervision of patient guiding entire exercise program to ensure appropriate understanding and technique prior to transitioning to group, graded progression in repetitions and/or weight for each exercise as appropriate, increased duration of aerobic training, and balance training. Treatment interventions may include: Group therapy, home management training, therapeutic activity, therapeutic exercise, neuromuscular re-education, neuroscience pain education, gait training, physical performance testing Total Visit Count: 05/06 Time Spent with Patient Therapeutic Interventions Therapeutic Exercise (min): 53 min Time Tracking Total Timed Units (min): 53 min Total Treatment Time (min): 53 min Jak Laurent P.T. documented in this encounter Miscellaneous Notes * Group Note - Daysi Hoskins O.T. - 11/20/2024 8:00 AM CDT Occupational Therapy Pain Rehabilitation Program Outpatient Progress Note SUBJECTIVE Patient's Name: Paramjit Boyce Preferred Name: Paramjit Reason for Referral/Referring Provider: Reason for Referral: OT/PT for Pain Rehabilitation Program.Referred by Kristi Sommer APRN, CAVALRY SCOUT, M.S. Medical Diagnosis: 1. Pain Generalized 2. Decline Functional Status [R53.81] Onset Date/Date OT Ordered: No data recorded Client Goals: Refer to personal goals established in COPM during initial evaluation. OBJECTIVE Pain: As documented by nursing in medical record. TREATMENT Group treatment: Group Attendance: Attended and was prompt for Occupational Therapy programming Group Session Attendance: 5 Group Participation: Patient was active and participatory. Intimacy Group: Client's identity confirmed and client attended group on intimacy. OT provided instructions in applications of PRC concepts to build connection, communication, and trust in relationships. OT provided education in identifying, prioritizing, and improving behavioral, spiritual, emotional, physical, and sexual intimacy. OT provided group facilitation and individualized grading of instruction to address client's needs in the group setting. OT provided education in identifying, communicating, and problem-solving through barriers to intimacy within relationships. OT provided feedback and further instruction to support progress toward the client's personal goals. The client identified personal goals for working on interpersonal connection, communication, and occupational participation within relationships as improving relationship with a close friend. Assessment Clinical Impression: Response to Instruction: Client verbally demonstrated understanding Progress Toward Goals: Appropriate progress Pain Response During Activities: Client demonstrated no pain behavior with activities Group Interactions Observations: Client asked appropriate questions and contributed to group discussion Intimacy Clinical Impression: The client was receptive to education concepts as evidenced by verbalizing application of concepts to daily occupations and actively engaging in activities. Client demonstrates good insight into importance of using skills learned today to assist with daily functioning.The client is expected to benefit from continued skilled occupational therapy to support their program goals by optimizing their success in occupational functioning. Goals: 1. Client will utilize proper body mechanics, ergonomics, and environmental modifications to managesymptoms and improve daily functioning by dismissal. 2. Client will utilize energy conservation techniques to increase successful participation in leisure, self-care and productive tasks by dismissal. 3. Client will use diaphragmatic breathing and relaxation techniques to manage pain and stress and improve daily functioning by dismissal. 4. Client will create and implement a daily time management plan which incorporates program principles by dismissal. Plan Will continue with treatment plan to achieve Occupational Therapy goals. Total Visit Count: 06/06 Treatment interventions may include: Group therapy, home management training, neuromuscular re-education, biofeedback training, cognitive skills training, community/work reintegration Time Spent with Patient Therapeutic Interventions Group Therapy (min): 55 min Time Tracking Total Treatment Time (min): 55 min Daysi Hoskins O.T. * Group Note - Reyes Spears CNS, M.S., R.N. - 11/20/2024 8:00 AM CDT The patient attended Pain Psychology Behavioral Health Group. Number of patients in group: 13. Group facilitated by : TALA Davis, M.S., R.N. Topic and Goals of Group session: Perfectionism Goals: Patient will verbalize understanding of the correlation between perfectionism, expectations,and chronic pain and identify one way to work on reducing perfectionism. Therapeutic interventions: Discussion on how perfectionism may be problematic especially related tochronic pain. Guided patient in identification of areas that have caused problems in life related to unrealistic expectations. Learning Methods Used: class/group, experiential practice, printed materials, small group discussion, and visual information. PHYSICAL EXAM Mental Status: Patient was attentive and engaged. Mood was calm, affect was congruent. No self- harm ideation was endorsed. Behaviors cooperative. ASSESSMENT / PLAN Evidence of Learning/Assessment of Progress: Patient's effort to show active interest/effort to learn and generalize new skills and behaviors during this session was good. Listening as others explored the relationship between cognitive flexibility and perfectionism. Absent part of the discussion for rounds. Patient is settling into groups as expected. Patient will participate in daily pain psychology and health education groups for fifteen treatment days. #1 Pain Generalized #2 Decline Functional Status [R53.81] Time spent with patient (in minutes): 45 Signed by: TALA Davis, M.Iggy, R.N. 11/20/2024 10:05 AM CDT * Group Note - Gabriele Ferguson Jr., M.A., L.P.CMackenzieC. - 11/20/2024 8:00 AM CDT The patient attended Pain Psychology Behavioral Health Group. Number of patients in group: 12. Group facilitated by : Gabriele Ferguson Jr., M.A., L.P.C.CMackenzie and Magnolia Michaels RN. Topic and Goals of Group session: Gentle Stretches and Yoga Goals of Intervention: Patient will participate in gentle stretches and yoga movement and breathingtherapy to learn evidence-based techniques for self- management of pain symptoms. Therapeutic interventions: Gentle Yoga and stretches. Learning Methods Used: class/group and experiential practice. PHYSICAL EXAM Mental Status: Patient was attentive and engaged in discussion. Mood was calm. Affect was congruent. No self-harm ideation was endorsed. Thought process was within normal limits. Speech was linear and coherent. Behaviors were appropriately interactive with peers and cooperative with group powder loader. Insight and judgment were adequate. ASSESSMENT / PLAN Evidence of Learning/Assessment of Progress: Patient's effort to show active interest/effort to learn and generalize new skills and behaviors during this session was good. He was appropriately engaged in the gentle movement and yoga practice. Will continue to participate in pain psychology and health education groups daily during participation in the three-week interdisciplinary [facility] program. Progressing in PRC programming as expected. #1 Pain Generalized #2 Decline Functional Status [R53.81] Time spent with patient (in minutes): 30 Signed by: Gabriele Ferguson Jr., M.A., BetiC. 11/20/2024 10:53 AM CDT documented in this encounter Plan of Treatment Upcoming Encounters Date Type Department Care Team (Late st Contact Info) Description 01/07/2025 1:30 PM [facility] Telemedicine Department of Urology in [place], [place] [address] [place] [phone] Danielle Pitt D.O. [address] [place] [phone] documented as of this encounter Visit Diagnoses Diagnosis Pain Generalized- Primary Decline Functional Status [R53.81] Chronic Pain Syndrome [G89.4] Weakness Leg Left [M62.81] Weakness Leg Right [M62.81] documented in this encounter Additional Health Concerns Assessment Noted Time PHQ-9 Depression Total Score: 5 07/07/19 24 9:17 PM CDT documented as of this encounter Care Teams Cableman Relationship Specialty Start Date End Date Elsewhere, Pcp PCP - General Internal Medicine 05/22/18 documented as of this encounter
--- OUTSIDE RECORDS SUMMARY | 2024-11-21 07:00 | XMS_ITS | Encounter Summary ---
Author Organization [facility] Address [address] [place] [id number] Care Team Providers Care Fagot Heater Helper Name Role Phone Elsewhere, Pcp Primary Care Provider Unavailabl e Reason for Visit * Behavioral Health (Routine) - Authorized Specialty Diagnoses / Procedures Referred By Contact Referred To Contact Psychiatry / [facility] Diagnoses Chronic Pain Syndrome Procedures [facility] Programs IN GROUP THERAPY IN HLTH BHV IVNTJ GRP 1ST 30 IN HLTH BHV IVNTJ GRP EA ADDL 15 IN HOME MGMT TRAIN EA 15MIN PT IN PSY TST INTERP & FEEDBACK INIT HR Hamilton Beebe, Ph.D., L.P. [address] [place] [phone] Phone: tel:[phone] fax:[phone] [place] Referral ID Status Reason Start Date Expiration Date V isits Requested Visits Authorized [id number] Authorized 10/10/2024 02/06/2025 17 17 Encounter Details Date Type Department Care Team (Latest Contact Info) Description 11/21/2024 8:00 AM CDT Clinical Support [facility] in [place], [place] [address] [place] [phone] Hamilton Beebe, Ph.D., L.P. 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 I have a [facility] place to live 05/29/2024 Education Answer Date Recorded What is the highest level of school you have completed or the highest degree you have received? Some college, no degree 05/24/2020 Sex and Gender Information Value Date Recorded Sex Assigned at Male 10/29/2020 12:38 PM CDT Legal Sex Male 1:45 PM MANAGER ED Gender Identity Male 07/15/2019 8:59 AM CDT Sexual Orientation Straight 07/15/2019 8: 59 AM CDT documented as of this encounter Progress Notes * Jak Laurent P.T. - 11/21/2024 8:00 AM CDT Physical Therapy Pain Rehabilitation Program Progress Note SUBJECTIVE Patient's Name: Paramjit Boyce Reason for Referral/Referring Provider: Reason for Referral: OT/PT for Pain Rehabilitation Program.Referred by Kristi Sommer APRN, CHILI MAKER, M.S. Medical Diagnosis: 1. Pain Generalized 2. Decline Functional Status [R53.81] 3. Weakness Leg Right [M62.81] 4. Weakness Leg Left [M62.81] 5. Chronic Pain Syndrome [G89.4] No data recorded Payor: [facility] / Plan: [employer] Cl[employer] HMO / Product Type: Medicaid HMO / [...] documented by nursing in the medical record. Treatment today consisted of: Individual 1:1 Treatment: Individual Treatment Treatment, Instruction, and Home Program: Therapeutic exercise Individual Treatment Comments: Paramjit engaged in a guided review and performance of his full strenthening and aerobic program, as outlined. He strongly desired to increase resistance beyond the level at which he was started, but was willing to moderate the increase such that he was able to focus on quality and control of his movements. He completed 7 minutes of aerobic exercise on the NuStep, with max HR 119 and RPE 11/20. Assessment Clinical Impression: Client returned for physical therapy as part of their PRC programming and fully participated. Client was able to increase aerobic conditioning time as recommended, close observation and cueing to perform exercises correctly, required cues and education to improve posture, verbalized understanding of concepts. Client is demonstrating progress towards PT and/or personal goals, specifically Goals 1 and 3, as evidenced by increased resistance for upper extremity exercises, used written instructionsto guide exercise performance and recorded progress. Client continues to require ongoing physical therapy for graded progressive exercise training and facilitating an activity plan on difficult days for improved activity tolerance, strength, and reduction of fear/avoidance of movement. Functional Goals and Time Frames: PT Goal #1: Client will formulate/demonstrate an appropriate progression of strengthening exercisesto advance 2 pounds more or advance 2 or more levels for resistance band than starting weight/resistance by dismissal, to facilitate completion of work-related and household tasks. PROGRESSING: increased resistance for upper extremity exercises, increased repetitions for core and lower extremity exercises as directed. PT Goal #2: Client will perform 15 minutes of aerobic activity at appropriate intensity level (target heart rate/perceived exertion scale) by dismissal, to facilitate engagement in the community and workplace. PT Goal #3: Client will understand exercise guidelines and demonstrate independence with all exercises performed while in the Pain Rehabilitation Program by dismissal, to facilitate well-being and assist with self-management of chronic condition. PROGRESSING: Paramjit used written instructions to guide his performance of exercises, and logged his progress. PT Goal #4: Client will report >2 point average improvement on the Patient Specific Functional Scale to demonstrate meaningful improvements in their perceived function. Plan Treatment Plan: Future sessions will incorporate transitioning to group session, graded progression in repetitions and/or weight for each exercise as appropriate, increased duration of aerobic training, and balance training. Treatment interventions may include: Group therapy, home management training, therapeutic activity, therapeutic exercise, neuromuscular re-education, neuroscience pain education, gait training, physical performance testing Total Visit Count: 06/06 Time Spent with Patient Therapeutic Interventions Therapeutic Exercise (min): 60 min Time Tracking Total Timed Units (min): 60 min Total Treatment Time (min): 60 min Jak Laurent P.T. documented in this encounter Miscellaneous Notes * Group Note - Reyes Spears CNS, M.S., R.N. - 11/21/2024 8:00 AM CDT The patient attended Pain Psychology Behavioral Health Group. Number of patients in group: 14. Group facilitated by : Spenser Hickman RN and TALA Davis, M.S., R.N. Topic and Goals of Group session: Roxana Chi Goals of Intervention: Patient will participate in Roxana Chi movement and breathing therapy to learn evidence-based techniques for self-management of pain symptoms. Therapeutic interventions: Gentle Roxana Chi. Learning Methods Used: class/group and experiential practice. . PHYSICAL EXAM Mental Status: Patient was attentive and engaged in practice. Mood was calm. Affect was congruent. No self-harm ideation was endorsed. Behaviors cooperative. ASSESSMENT / PLAN Evidence of Learning/Assessment of Progress: Patient's effort to show active interest/effort to learn and generalize new skills and behaviors during this session was satisfactory. Following almost all of the movements in today's gentle roxana chi practice while standing. Patient is making gradual progress as expected within movement groups. Patient will participate in daily pain psychology and health education groups for fifteen treatment days #1 Pain Generalized #2 Decline Functional Status [R53.81] Time spent with patient (in minutes): 30 Signed by: TALA Davis, M.S., R.N. 11/21/2024 10:39 AM CDT * Group Note - Gabriele Ferguson Jr. M.Moreno, L.P.C.C. - 11/21/2024 8:00 AM CDT The patient attended Pain Psychology Behavioral Health Group. Number of patients in group: 14. Group facilitated by : Gabriele Ferguson Jr., M.A., L.P.C.C. Topic and Goals of Group session: [employer] Goals: Patient will understand the impact thoughts and emotions have on the experience of pain and how CBT techniques can help improve functioning and coping with pain. Therapeutic interventions: review of PRC concepts, examples of cycles of pain, and the impact emotions and thoughts have on the experience of pain. Learning Methods Used: class/group, printed materials, psychologist guided discussion, and visual information. PHYSICAL EXAM Mental Status: Patient was attentive and engaged in discussion. Mood was calm. Affect was congruent. No self-harm ideation was endorsed. Thought process was within normal limits. Speech was linear and coherent. 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 Insight and judgment were adequate. ASSESSMENT / PLAN Evidence of Learning/Assessment of Progress: Patient's effort to show active interest/effort to learn and generalize new skills and behaviors during this session was good. Paramjit was attentive and engaged throughout the session. He shared a few brief comments early on in the session but was otherwise rather quiet. Will continue to participate in pain psychology and health education groups daily during participation in the three-week interdisciplinary [facility] program. Progressing in PRC programming as expected. #1 Pain Generalized #2 Decline Functional Status [R53.81] Time spent with patient (in minutes): 60 Signed by: Gabriele Ferguson Jr., M.A., L.P.CMackenzieCMackenzie 11/21/2024 11:03 AM CDT * Group Note - Daysi Hoskins O.T. - 11/21/2024 8:00 AM CDT Occupational Therapy Pain Rehabilitation Program Outpatient Progress Note SUBJECTIVE Patient's Name: Paramjit Boyce Preferred Name: Paramjit Reason for Referral/Referring Provider: Reason for Referral: OT/PT for Pain Rehabilitation Program.Referred by Kristi Sommer APRN, CHILI MAKER, M.S. Medical Diagnosis: 1. Pain Generalized 2. Decline Functional Status [R53.81] 3. Weakness Leg Right [M62.81] 4. Weakness Leg Left [M62.81] 5. Chronic Pain Syndrome [G89.4] Onset Date/Date OT Ordered: No data recorded Client Goals: Refer to personal goals established in COPM during initial evaluation. OBJECTIVE Pain: As documented by nursing in medical record. TREATMENT Group treatment: Group Attendance: Attended and was prompt for Occupational Therapy programming Group Session Attendance: 5 Group Participation: Patient was active and participatory. Body Mechanics Group: Client's identity confirmed and client attended group on body mechanics. OT provided instructions in applications of PRC concepts to train clients in correct body mechanics concepts and to progress application of proper body mechanics to daily occupations. OT provided group facilitation and individualized grading of instruction to address client's needs in the group setting.OT education consisted of proper body mechanics during sitting/standing postures, pushing/pulling, lifting/carrying, and reaching for items. Functional practice included engaging in a variety of functional activities utilizing body mechanics concepts and discussion of applications of the concepts to daily occupations. Education was provided in identifying opportunities for improving body mechanics in daily occupations. The client participated in hands-on practice and teach-back of concepts by trialing use of tote bag to carry laundry. OT provided feedback and further instruction to support progress toward the client's personal goals. The client identified action steps to apply learning fromthis group into daily occupations by lesser load and frequent laundry. Assessment Clinical Impression: Response to Instruction: Client verbally demonstrated understanding Progress Toward Goals: Appropriate progress Pain Response During Activities: Client demonstrated no pain behavior with activities Group Interactions Observations: Client asked appropriate questions and contributed to group discussion Body Mechanics Clinical Impression: The client was receptive to education concepts as evidenced by verbalizing application of concepts to daily occupations and actively engaging in activities. Clientdemonstrates good insight into importance of using skills learned today to assist with daily functioning. The client is expected to benefit from continued [...] achieve Occupational Therapy goals. Total Visit Count: 07/06 Treatment interventions may include: Group therapy, home management training, neuromuscular re-education, biofeedback training, cognitive skills training, community/work reintegration Time Spent with Patient Therapeutic Interventions Group Therapy (min): 55 min Time Tracking Total Treatment Time (min): 55 min Daysi Hoskins O.T. documented in this encounter Plan of Treatment Upcoming Encounters Date Type Department Care Team (Late st Contact Info) Description 01/07/2025 1:30 PM MANAGER ED Telemedicine Department of Urology in [place], [place] [address] [place] [phone] Danielle Pitt D.O. 200 [place] [phone] documented as of this encounter Visit Diagnoses Diagnosis Pain Generalized- Primary Decline Functional Status [R53.81] Weakness Leg Right [M62.81] Weakness Leg Left [M62.81] Chronic Pain Syndrome [G89.4] documented in this encounter Additional Health Concerns Assessment Noted Time PHQ-9 Depression Total Score: 5 07/07/19 24 9:17 PM CDT documented as of this encounter Care Teams Fagot Heater Helper Relationship Specialty Start Date End Date Elsewhere, Pcp PCP - General Internal Medicine 05/22/18 documented as of this encounter
--- OUTSIDE RECORDS SUMMARY | 2024-11-22 07:00 | XMS_ITS | Encounter Summary ---
Author Organization [facility] Address [address] [place] [id number] Care Team Providers Care Project Accountant Name Role Phone Elsewhere, Pcp Primary Care Provider Unavailabl e Reason for Visit * Behavioral Health (Routine) - Authorized Specialty Diagnoses / Procedures Referred By Contact Referred To Contact Psychiatry / [facility] Diagnoses Chronic Pain Syndrome Procedures [facility] Programs MD GROUP THERAPY MD HLTH BHV IVNTJ GRP 1ST 30 MD HLTH BHV IVNTJ GRP EA ADDL 15 MD HOME MGMT TRAIN EA 15MIN PT MD PSY TST INTERP & FEEDBACK INIT HR Hamilton Beebe, Ph.D., L.P. [address] [place] [phone] Phone: tel:[phone] fax:[phone] [place] Referral ID Status Reason Start Date Expiration Date V isits Requested Visits Authorized [id number] Authorized 10/10/2024 02/06/2025 17 17 Encounter Details Date Type Department Care Team (Latest Contact Info) Description 11/22/2024 8:00 AM CDT Clinical Support [facility] in [place], [place] [address] [place] [phone] Hamilton Beebe, Ph.D., L.P. 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 I have a [facility] place to live 05/29/2024 Education Answer Date Recorded What is the highest level of school you have completed or the highest degree you have received? Some college, no degree 05/24/2020 Sex and Gender Information Value Date Recorded Sex Assigned at Male 10/29/2020 12:38 PM CDT Legal Sex Male 1:45 PM [employer] Gender Identity Male 07/15/2019 8:59 AM CDT Sexual Orientation Straight 07/15/2019 8: 59 AM CDT documented as of this encounter Progress Notes * Jennifer Cerna P.T. - 11/22/2024 8:00 AM CDT Physical Therapy Pain Rehabilitation Program Progress Note SUBJECTIVE Patient's Name: Paramjit Boyce Reason for Referral/Referring Provider: Reason for Referral: OT/PT for Pain Rehabilitation Program.Referred by Kristi Sommer APRN, ENGRAVER, M.S. Medical Diagnosis: 1. Pain Generalized 2. Decline Functional Status [R53.81] 3. Chronic Pain Syndrome [G89.4] No data recorded Payor: [employer] [facility] CARE / Plan: [facility] [employer] HMO / Product Type: Medicaid HMO / [...] the medical record. Treatment today consisted of: Group Therapy: Client attended scheduled physical therapy session with this therapist providing supervision of each exercise to ensure appropriate understanding and technique. Client completed the following with this therapist providing verbal, tactile, and visual cueing to enhance form and improve client carry through and confidence once client returns home after PRC programming: Aerobic Exercise: Client performed 7 minutes on the Nu[employer]. Vitals and perceived exertion scale monitored throughout to ensure application of moderation principles that client is learning within the PRC program for symptom and energy management (RPE 11/20). Strength Exercise: Client completed full body exercise routine as outlined at initial setup of exercise with modifications/progressions as follows: provided cues to maintain resistance bands at levelfrom previous session; did increase for shoulder external rotation. Client benefited from moderate and frequent cueing for breathing, muscle control, posture, technique, graded exposure, and moderation? Flexibility Exercise: Client performed whole-body active range of motion and sustained stretching exercises for muscle, neural, joint flexibility, management of spasms/cramps and/or pain. Modified/progressed as follows: trialed hip flexor stretch . Balance Exercise: Client performed balance challenges with this therapist providing supervision [facility]. Client advised to utilize hand support as needed. Client performed the following: VOR gaze stabilization with head nods, rotation, and with eyes open/closed in modified tandem stance. Modified /progressed balance challenge as follows: light touch on table for balance support . Assessment Clinical Impression: Paramjit was able to navigate through his home exercise program with PT providingmoderate assistance with technique and using skills of moderation. PT emphasized using positive language and more neutral response to symptoms. Client returned for physical therapy as part of their [facility] programming and fully participated. Client tolerated exercise well, put forth appropriate effort, required cues and education to improve posture, has difficulty integrating concepts of moderation during exercise. Client is demonstrating progress towards PT and/or personal goals, specifically goal #2, as evidenced by graded exposure with increase in time. Client continues to require ongoing physical therapy for graded progressive exercisetraining and facilitating an activity plan on difficult [...] Plan Treatment Plan: Future sessions will incorporate graded progression in repetitions and/or weight for each exercise as appropriate, increased duration of aerobic training, and balance training. Treatment interventions may include: Group therapy, home management training, therapeutic activity, therapeutic exercise, neuromuscular re-education, neuroscience pain education, gait training, physical performance testing Total Visit Count: 07/06 Time Spent with Patient Therapeutic Interventions Group Therapy (min): 60 min Time Tracking Total Treatment Time (min): 60 min Jennifer Cerna P.T. documented in this encounter Miscellaneous Notes * Group Note - Reyes Spears CNS, M.S., R.N. - 11/22/2024 8:00 AM CDT The patient attended Pain Psychology Behavioral Health Group. Number of patients in group: 12. Group facilitated by : TALA Davis, M.S., R.N. Topic and Goals of Group session: Mindfulness Goals of Intervention: Patient will review concept of mindfulness and identify ways to apply to coping with chronic pain. Therapeutic interventions included introduction of concepts in lecture and discussion format. Mindfulness exercises were used to clarify content. Learning Methods Used: class/group, experiential practice, small group discussion, video clips, andvisual information. PHYSICAL EXAM Mental Status: Patient was attentive and engaged. Mood was calm. Affect was congruent. No self- harm ideation was endorsed. Behaviors cooperative. ASSESSMENT / PLAN Evidence of Learning/Assessment of Progress: Patient's effort to show active interest/effort to learn and generalize new skills and behaviors during this session was good. Engaged in the mindfulness practice exercises but did not comment on the experience. Patient is making beginning progress in groups as expected. Patient will participate in daily pain psychology and health education groups for fifteen treatment days. #1 Pain Generalized #2 Decline Functional Status [R53.81] Time spent with patient (in minutes): 60 Signed by: TALA Davis, M.S., R.N. 11/22/2024 10:32 AM CDT * Group Note - Kassy Barboza M.S., O.T. - 11/22/2024 8:00 AM CDT Occupational Therapy Pain Rehabilitation Program Outpatient Progress Note SUBJECTIVE Patient's Name: Paramjit Boyce Preferred Name: Paramjit Reason for Referral/Referring Provider: Reason for Referral: OT/PT for Pain Rehabilitation Program.Referred by Kristi Sommer APRN, CNS, M.S. Medical Diagnosis: 1. Pain Generalized 2. Decline Functional Status [R53.81] Onset Date/Date OT Ordered: No data recorded Client Goals: Refer to personal goals established in COPM during initial evaluation. OBJECTIVE Pain: As documented by nursing in medical record. TREATMENT Group treatment: Group Attendance: Attended and was prompt for Occupational Therapy programming Group Session Attendance: 7 Group Participation: Patient appeared to have difficulty understanding concepts. Vocation Group: Vocation Group: Client's identity confirmed and client attended group on vocation. Group consisted of problem-solving individual work/volunteer/home/school difficulties and applying the concepts of body mechanics, ergonomics, moderation/modification, time management, and energy saving techniques to improve functioning. OT provided group facilitation and individualized grading of instruction to address client's needs in the group setting. Clients identified the primary vocationalrole they need to resume after PRC programming and created a [id number] plan to support a return to vocation. OT education consisted of defining vocational roles, improving engagement in those vocational roles, applying PRC concepts to vocation, and making lasting changes in habits and routines to support engagement in vocation. 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 The client participated in hands-on practice and teach-back of concepts by creating a return to vocation plan, though minimally completed the plan. OT will continue to meet withpatient to discuss vocation plan. Assessment Clinical Impression: Response to Instruction: Client appeared to have difficulty with OT concepts instructed in during session Progress Toward Goals: Fair Pain Response During Activities: Client demonstrated minimal pain behavior with activities (Discussing inappropriate pain management strategies) Group Interactions Observations: Client tended to dominate group discussions and required redirection to the group topic Vocation Clinical Impression: The client was receptive to education concepts as evidenced by takingnotes and asking questions. The client progressed in their ability to apply moderation, modification, and time management concepts to their daily functioning as evidenced by creation of specific planof how to actively participate in vocational plan while implementing these concepts after program. Client demonstrates emerging insight into importance of using skills learned [...] achieve Occupational Therapy goals. Total Visit Count: 08/06 Treatment interventions may include: Group therapy, home management training, neuromuscular re-education, biofeedback training, cognitive skills training, community/work reintegration Time Spent with Patient Therapeutic Interventions Group Therapy (min): 60 min Time Tracking Total Treatment Time (min): 60 min Kassy Barboza M.S., O.T. * Group Note - Gabriele Ferguson Jr., M.A., L.P.C.C. - 11/22/2024 8:00 AM CDT The patient attended Pain Psychology Behavioral Health Group. Number of patients in group: 11. Group facilitated by : Gabriele Ferguson Jr., M.A., L.P.C.C. and Marimar Chacon RN. Topic and Goals of Group session: Mindfulness Walking Goals: Patient will learn and practice mindfulness techniques to increase overall relaxation and reduce muscle tension associated with chronic pain symptoms. Therapeutic interventions: Guided mindfulness walking and experiential mindfulness exercise. Learning Methods Used: class/group, experiential practice, and psychologist guided discussion. PHYSICAL EXAM Mental Status: Patient was attentive and engaged in discussion. Mood was calm. Affect was congruent. No self-harm ideation was endorsed. Thought process was within normal limits. Speech was linear and coherent. Behaviors were appropriately interactive with peers and cooperative with group employment specialist/program manager. Insight and judgment were adequate. ASSESSMENT / PLAN Evidence of Learning/Assessment of Progress: Patient's effort to show active interest/effort to learn and generalize new skills and behaviors during this session was good. Paramjit was engaged in the walking practice throughout. Will continue to participate in pain psychology and health education groups daily during participation in the three-week interdisciplinary [facility] program. Progressing in PRC programming as expected. #1 Pain Generalized #2 Decline Functional Status [R53.81] Time spent with patient (in minutes): 30 Signed by: Gabriele Ferguson Jr., M.A., Pratima.P.[email or web address] 11/22/2024 10:42 AM CDT documented in this encounter Plan of Treatment Upcoming Encounters Date Type Department Care Team (Late st Contact Info) Description 01/07/2025 1:30 PM [employer] Telemedicine Department of Urology in [place], [place] [address] [place] [phone] Danielle Pitt D.O. [address] [place] [phone] documented as of this encounter Visit Diagnoses Diagnosis Pain Generalized- Primary Decline Functional Status [R53.81] Chronic Pain Syndrome [G89.4] documented in this encounter Additional Health Concerns Assessment Noted Time PHQ-9 Depression Total Score: 5 07/07/19 24 9:17 PM CDT documented as of this encounter Care Teams Project Accountant Relationship Specialty Start Date End Date Elsewhere, Pcp PCP - General Internal Medicine 05/22/18 documented as of this encounter
--- OUTSIDE RECORDS SUMMARY | 2024-11-23 07:00 | XMS_ITS | Encounter Summary ---
Author Organization [facility] Address [address] [place] [id number] Care Team Providers Care Print Operator Name Role Phone Elsewhere, Pcp Primary Care Provider Unavailabl e Reason for Visit * Behavioral Health (Routine) - Authorized Specialty Diagnoses / Procedures Referred By Contact Referred To Contact Psychiatry / [facility] Diagnoses Chronic Pain Syndrome Procedures [facility] Programs [place] TH[place]AP[place] [facility] IVNTJ GRP 1ST 30 [place] [facility] [facility] IV[place] GRP [place] ADDL 15 [place] MGMT TRAIN [place] 15MIN PT [place] PSY TST INTERP & FEEDBACK INIT HR Hamilton Beebe, Ph.D., L.P. [address] [place] [phone] Phone: tel:[phone] fax:[phone] [place] Referral ID Status Reason Start Date Expiration Date V isits Requested Visits Authorized [id number] Authorized 10/10/2024 02/06/2025 17 17 Encounter Details Date Type Department Care Team (Latest Contact Info) Description 11/23/2024 8:00 AM CDT Clinical Support [facility] in [place], [place] [address] [place] [phone] Hamilton Beebe, Ph.D., L.P. 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 Some college, no degree 05/24/2020 Sex and Gender Information Value Date Recorded Sex Assigned at Male 10/29/2020 12:38 PM CDT Legal Sex Male 1:45 PM TEST PILOT Gender Identity Male 07/15/2019 8:59 AM CDT Sexual Orientation Straight 07/15/2019 8: 59 AM CDT documented as of this encounter Progress Notes * Aleksandra Ortiz M.S., O.T. - 11/23/2024 8:00 AM CDT Occupational Therapy Biofeedback Pain Rehabilitation Program Outpatient Progress Note SUBJECTIVE Patient's Name: Paramjit Boyce Preferred Name: Paramjit Reason for Referral/Referring Provider: Reason for Referral: OT/PT for Pain Rehabilitation Program.Referred by Kristi Sommer APRN, COMMUNICATION CENTER COORDINATOR, M.S. Occupational Therapy biofeedback assisted relaxation treatment as a part of the occupational therapy plan of care during the outpatient PRC program. Medical Diagnosis: 1. Pain Generalized 2. Decline Functional Status [R53.81] 3. Chronic Pain Syndrome [G89.4] Onset Date/Date OT Ordered: No data recorded Patient Comments: The client reports daily practice of diaphragmatic breathing. Reports he has not practiced muscle relaxation as much as he feels his stress does not necessarily affect his muscles. Reports he has practiced in the car and whenever diaphragmatic breathing is brought up during the program. The client denies any benefit from use of skills at this time. Client Goals: Refer to personal goals established in COP during initial evaluation. OBJECTIVE Biofeedback Treatment Biofeedback Participation: Second biofeedback session Precautions: Other (comment) (feeding tube site on abdomen, put abdominal belt lower on abdomen) Response to Biofeedback - Right Upper Trapezius: 1-2 Response to Biofeedback - Left Upper Trapezius: 1 Response to Biofeedback - Respiration Rate: 10 TREATMENT A brief review of relaxation techniques was provided and questions were answered. Initially allowedclient time to practice relaxation concepts while sitting at rest. Provided minimal cues to reduce accessory breathing and take a more gentle breaths vs forced and effortful with use of abdominal muscles. Improvement noted, though continues to demonstrate minimal accessory breathing. Client then participated in unilateral activity. Client was noted to use a moderate to lower amount of tension in left shoulder during the activity. Minimal verbal cues provided to reduce left shoulder tension with success. Client demonstrated no co-contraction in right side. Client required intermittent verbalcues to maintaining diaphragmatic breathing during the activity. Time was spent discussing the importance of incorporating concepts into activities of daily living and provided examples related to client's daily responsibilities. The role intensity and speed of activity plays in ability to control tensions and breathing was discussed and encouraged client to perform tasks with moderation in mind.Encouraged client to not only practice formally at rest but also to begin incorporating concepts into daily activities beginning with simple tasks then gradually ramp up to more challenging activities. Assessment During the initial practice client was able to demonstrate an improved understanding of these relaxation techniques and progressed in ability to coordinate relaxation skills with functional activities this session. At rest, client was able to achieve 10 breaths per minute without use of pacer. The c lient demonstrated appropriate understanding of the techniques and had moments of success with utilizing skills during activities. The client demonstrates appropriate motivation to continue working on muscle relaxation and diaphragmatic breathing independently during the following functional activit ies: Keyboarding, in the car, watching TV. Client would benefit from continued skilled interventionby occupational therapy for biofeedback-guided training in relaxation skills to progress ability togeneralize skills to functional activities in meaningful occupations. Goals: 1. Client will utilize proper body [...] which incorporates program principles by dismissal. Plan 1-2 more biofeedback sessions. Will reassess shoulder tension and respiratory rate measures using assessment protocol, will compare outcomes to first session measures and review with client, and willintroduce potential home training devices. Will continue with treatment plan to achieve Occupational Therapy goals. Total Visit Count: 10/06 Treatment interventions may include: Group therapy, home management training, neuromuscular re-education, biofeedback training, cognitive skills training, community/work reintegration Time Spent with Patient Therapeutic Interventions Home Management Training (min): 35 min Neuromuscular Re-Education (min): 10 min Time Tracking Total Timed Units (min): 45 min Total Treatment Time (min): 45 min Aleksandra Lundell, OTR/L * Jennifer Cerna P.T. - 11/23/2024 8:00 AM CDT Physical Therapy Pain Rehabilitation Program Progress Note SUBJECTIVE Patient's Name: Paramjit Boyce Reason for Referral/Referring Provider: Reason for Referral: OT/PT for Pain Rehabilitation Program.Referred by Kristi Sommer APRN, COMMUNICATION CENTER COORDINATOR, M.S. Medical Diagnosis: 1. Pain Generalized 2. Decline Functional Status [R53.81] 3. Chronic Pain Syndrome [G89.4] No data recorded Payor: [employer] / Plan: [facility] [employer] HMO / Product Type: Medicaid HMO / [...] after PRC programming: Aerobic Exercise: Client performed 6 minutes on the NuStep. Vitals and perceived exertion scale monitored throughout to ensure application of moderation principles that client is learning within the PRC program for symptom and energy management ( RPE 11/20). Strength Exercise: Client completed full body exercise routine as outlined at initial setup of exercise with modifications/progressions as follows: Increased resistance bands for upper extremity exercise, increase to 7 lb for bicep curls with PT providing moderate cuing for posture and muscle relaxation with increase, increased reps for shoulder strengthening with green band. PT provided exercisefor increasing core engagement while maintaining neutral spine. Client benefited from moderate cueing for muscle relaxation, posture, technique, and graded exposure?. Client is demonstrating difficulty with side steps and step taps and step-up exercises with poor foot clearance, moderate instability with PT providing cues to use rail and use vision to optimize ability. At times, it appeared PT cues appeared to make the task with decreased quality versus improving function. Flexibility Exercise: Client performed whole-body active range of motion and sustained stretching exercises for muscle, neural, joint flexibility, management of spasms/cramps and/or pain. Balance Exercise: Client performed balance challenges with this therapist providing supervision [facility]. Client advised to utilize hand support as needed. Client performed the following: single leg balance with anterior, lateral, and posterior reaches and/or VOR gaze stabilization with head nods, rotation, and with eyes open/closed in double leg stance. Modified/progressed balance challenge asfollows: support at mat table. Individual 1:1 Treatment: Neuroscience of Pain Education: Graded Motor Imagery Left/Right Discrimination: Provided patient education on laterality recognition as the process of identifying one side of the body as distinct from the other, or if a body part is rotating to the left or right. Educated on the research showing individual in pain have greater difficulty in identifying left or right images of their painful body part(s). Patient was agreeable tocontinuing left/right discrimination for additional top-down retraining. Reviewed principles of pain neuroscience, where pain comes from, and the analogy of our nervous system as an alarm system to notify of danger/threat. Utilized educational flashcards on the brain's body mapping from Why You Hurt: Therapeutic Neuroscience Education System by Jyoti Aguilar PT, PhD, CSMT. Discussed homunculus smudging from pain or altered movement, and that both the somatosensory and motor cortices can becomeclarified and in focus with both top-down and bottom-up training. Patient completed laterality testing for feet with correctly identifying 15/19 flash cards (78%) within 1 minute. Normal values wouldbe to correctly identify 24 of 30 cards within 1 minute, with greater than or equal to 80% accuracyand 2-3 seconds per card. Patient was provided with flash cards for home use to address laterality deficits. We discussed additional strategies to incorporate neural retraining for laterality, specifically use of magazines or people watching and analyzing movement/action, or pursuing applications (Orientate, Recognise) for electronic versions. Assessment Clinical Impression: Paramjit is fully participating in physical therapy. He demonstrates poor foot clearance during step ups and sidesteps with footdrop despite having AFO on in place. At times, it appeared that PT cues appeared to make the task with decreased quality versus improving function. As part of graded motor imagery, PT assessed laterality for recognition of feet using flash cards and wasbelow norms so provided graded motor imagery packet and flash cards for home going. Overall, Paramjit is demonstrating improved ability to navigate through his exercise routine in his working on integrating concepts of moderation with exercise. Client put forth appropriate effort, was able to increase weight or repetitions as recommended, required cues and education to improve posture, has some difficulty integrating concepts of moderation during exercise. Client is demonstrating progress towards PT and/or personal goals, specifically goal #1, as evidenced by increasing weight by 1 # and band level. Client continues to require ongoing physical therapy [...] training, physical performance testing Total Visit Count: 08/06 Time Spent with Patient Therapeutic Interventions Group Therapy (min): 60 min Time Tracking Total Treatment Time (min): 60 min Jennifer Cerna, P.T. documented in this encounter Miscellaneous Notes * Group Note - Gabriele Ferguson Jr., M.A., Ruben - 11/23/2024 8:00 AM CDT The patient attended Pain Psychology Behavioral Health Group. Number of patients in group: 14. Group facilitated by : Gabriele Ferguson Jr., M.A., L.P.C.C. Topic and Goals of Group session: ACT Committed Action toward Values Goals of Intervention: Patient will be introduced to concept of value-directed behavior to improve coping with chronic pain. Patient will consider longstanding values, how pain may have become a barrier from performing behaviors in support in values, and to address rule-related cognitions that prevent value-directed behavior. Therapeutic interventions included introduction of concepts in lecture format and discussion. Experiential exercises and handouts related to values were administered to the group. Learning Methods Used: class/group, printed materials, and psychologist guided discussion. PHYSICAL EXAM Mental Status: Patient was attentive and engaged in discussion. Mood was calm. Affect was congruent. No self-harm ideation was endorsed. Thought process was within normal limits. Speech was linear and coherent. Behaviors were appropriately interactive with peers and cooperative with group commercial engineer. Insight and judgment were adequate. ASSESSMENT / PLAN Evidence of Learning/Assessment of Progress: Patient's effort to show active interest/effort to learn and generalize new skills and behaviors during this session was good. Paramjit a few comments throughout the session and appeared to enjoy the topic. He was able to start working on a smart goals worksheet specific to important value he would like to strengthen. Will continue to participate in pain psychology and health education groups daily during participation in the three-week interdisciplinary [facility] program. Progressing in PRC programming as expected. #1 Pain Generalized #2 Decline Functional Status [R53.81] Time spent with patient (in minutes): 60 Signed by: Gabriele Ferguson Jr., M.A., L.P.C.C. 11/23/2024 10:38 AM CDT * Group Note - Reyes Spears CNS, M.S., R.N. - 11/23/2024 8:00 AM CDT The patient attended Pain Psychology Behavioral Health Group. Number of patients in group: 14. Group facilitated by : Kennedy Casarez RN and TALA Davis, M.S., R.N. Topic [...] behaviors during this session was satisfactory. Following most of the movements in today's gentle roxana chi practice. Seated part of the time. Patient is making gradual progress as expected within movement groups. Patient will participate in daily pain psychology and health education groups for fifteen treatment days. #1 Pain Generalized #2 Decline Functional Status [R53.81] Time spent with patient (in minutes): 30 Signed by: TALA Davis, M.S., R.N. 11/23/2024 11:16 AM CDT * Group Note - Kassy Barboza M.S., O.T. - 11/23/2024 8:00 AM CDT Occupational Therapy Pain Rehabilitation Program Outpatient Progress Note SUBJECTIVE Patient's Name: Paramjit Boyce Preferred Name: Paramjit Reason for Referral/Referring Provider: Reason for Referral: OT/PT for Pain Rehabilitation Program.Referred by Kristi Sommer APRN, TALA, M.S. Medical Diagnosis: 1. Pain Generalized 2. Decline Functional Status [R53.81] 3. Chronic Pain Syndrome [G89.4] Onset Date/Date OT Ordered: No data recorded Client Goals: Refer to personal goals established in COP during initial evaluation. OBJECTIVE Pain: As documented by nursing in medical record. TREATMENT Group treatment: Group Attendance: Attended but was late for Occupational Therapy programming (Was in biofeedback session) Group Session Attendance: 6 Group Participation: Patient was active and participatory. Weekend Planning Group: Client's identity confirmed and client attended group on weekend planning. The weekend planning group is a recurring group each Tuesday of PRC programming to provide clients with instruction, feedback, and resources to progress their functional application of PRC concepts into daily occupations over the weekend. OT provided instructions in applying concepts from the OT groups this week to structure their weekends, keep momentum in their progress with all program concepts,and to work on their OT focus areas. Client was instructed to utilize a time management worksheet to plan activities for the weekend. OT provided group facilitation and individualized grading of instr uction to address client's needs in the group setting. The client identified their biggest challenges going into the weekend as staying consistent with plan. OT provided feedback and further instruction to anticipate and overcome barriers to progress toward the client's personal goals. The client created a structured weekend plan incorporating all required elements by the end of the group and verbalized a strategy following through on this plan. Assessment Clinical Impression: Response to Instruction: Client verbally demonstrated understanding Progress Toward Goals: Is compliant with education provided Pain Response During Activities: Client demonstrated no pain behavior with activities Group Interactions Observations: Client asked appropriate questions and contributed to group discussion Weekend Planning Clinical Impression: The client was receptive to education concepts as evidenced by taking notes, asking questions, verbalizing application of concepts to daily occupations, and actively engaging in activities. The client progressed in their ability to apply moderation, modification, and time management concepts to their daily functioning as evidenced by incorporating program concepts into creation of specific plan for the weekend days. Client required a moderate amount of assistance/guidance from therapist to complete weekend plan. Client demonstrates emerging insight into importance of [...] achieve Occupational Therapy goals. Total Visit Count: 09/05 Treatment interventions may include: Group therapy, home management training, neuromuscular re-education, biofeedback training, cognitive skills training, community/work reintegration Time Spent with Patient Therapeutic Interventions Group Therapy (min): 15 min Time Tracking Total Treatment Time (min): 15 min Kassy Barboza M.S., O.T. * Group Note - Gabriele Ferguson Jr., M.A., L.P.C.C. - 11/23/2024 8:00 AM CDT The patient attended Pain Psychology Behavioral Health Group. Number of patients in group: 8. Group facilitated by : Gabriele Ferguson Jr., M.A., L.P.C.CMackenzie Topic and Goals of Group session: Passive progressive muscle relaxation Goals of Intervention: Patient will participate in passive progressive muscle relaxation to learn evidence-based techniques for self-management of pain symptoms. Therapeutic interventions: Experiential practice of autogenic relaxation technique. Learning Methods Used: class/group, experiential practice, and psychologist guided discussion. PHYSICAL EXAM Mental Status: Patient was attentive and engaged in discussion. Mood was calm. Affect was congruent. No self-harm ideation was endorsed. Thought process was within normal limits. Speech was linear and coherent. Behaviors were appropriately interactive with peers and cooperative with group commercial engineer. Insight and judgment were adequate. ASSESSMENT / PLAN Evidence of Learning/Assessment of Progress: Patient's effort to show active interest/effort to learn and generalize new skills and behaviors during this session was good. He was engaged in the relaxation practice appropriately. #1 Pain Generalized #2 Decline Functional Status [R53.81] Time spent with patient (in minutes): 30 Signed by: Gabriele Ferguson Jr., M.A., L.P.CMackenzieCMackenzie 11/23/2024 2:59 PM CDT documented in this encounter Plan of Treatment Upcoming Encounters Date Type Department Care Team (Late st Contact Info) Description 01/07/2025 1:30 PM TEST PILOT Telemedicine Department of Urology in [place], [place] [address] [place] [phone] Danielle Pitt D.O. [address] [place] [phone] documented as of this encounter Visit Diagnoses Diagnosis Pain Generalized- Primary Decline Functional Status [R53.81] Chronic Pain Syndrome [G89.4] documented in this encounter Additional Health Concerns Assessment Noted Time PHQ-9 Depression Total Score: 5 07/07/19 24 9:17 PM CDT documented as of this encounter Care Teams Print Operator Relationship Specialty Start Date End Date Elsewhere, Pcp PCP - General Internal Medicine 05/22/18 documented as of this encounter
--- OUTSIDE RECORDS SUMMARY | 2024-11-26 07:00 | XMS_ITS | Encounter Summary ---
Author Organization [facility] Address [address] [place] [id number] Care Team Providers Care Grain Shipper Name Role Phone Elsewhere, Pcp Primary Care [...] INIT HR Hamilton Beebe, Ph.D., L.P. [address] [place] [phone] Phone: tel:[phone] fax:[phone] [place] Referral ID Status Reason Start Date Expiration Date V isits Requested Visits Authorized [id number] Authorized 10/10/2024 02/06/2025 17 17 Encounter Details Date Type Department Care Team (Latest Contact Info) Description 11/26/2024 8:00 AM CDT Clinical Support [facility] in [place], [place] [address] [place] [phone] Hamilton Beebe, Ph.D., L.P. 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 - 11/26/2024 8:00 AM CDT Physical Therapy Pain Rehabilitation Program Progress Note SUBJECTIVE Patient's Name: Paramjit Boyce Reason for Referral/Referring Provider: Reason for Referral: OT/PT for Pain Rehabilitation Program.Referred by Kristi Sommer APRN, BREAKFAST HOST, M.S. Medical Diagnosis: 1. Pain Generalized 2. Decline Functional Status [R53.81] 3. Chronic Pain Syndrome [G89.4] No data recorded Payor: [employer] [facility] / Plan: [facility] [employer] HMO / Product Type: Medicaid HMO / [...] and confidence once client returns home after [facility] programming: Aerobic Exercise: Client performed 7 minutes on the Nu Step. Vitals and perceived exertion scale monitored throughout to ensure application of moderation principles that [facility] for symptom and energy management (RPE 11/20). Strength Exercise: Client completed full body exercise routine as outlined at initial setup of exercise with modifications/progressions as follows: Followed exercise routine and performed the correctnumber repetitions. Client benefited from verbal cueing for breathing, muscle control, lower trunk control, muscle relaxation, posture, and body mechanics? Flexibility Exercise: Client performed whole-body active range of motion and sustained stretching exercises for muscle, neural, joint flexibility, management of spasms/cramps and/or pain. Modified/progressed as follows: Ongoing. Balance Exercise: Client performed balance challenges with this therapist providing supervision [facility]. Client advised to utilize hand support as needed. Client performed the following: single leg balance with anterior, lateral, and posterior reaches and/or VOR gaze stabilization with head nods, rotation, and with eyes open/closed in semi tandem stance. Modified/progressed balance challenge as follows: Perform single leg stance exercises holding onto rail with bilateral hands of hip abduction and hip extension 1 set x3 repetitions with 5 seconds hold. Assessment Client returned for physical therapy as part of their [facility] programming and fully participated. Client tolerated exercise well, put forth appropriate effort, close observation and cueing to perform exercises correctly, required cues and education to improve posture, had no pain behaviors during PT session, was agreeable to perform exercises related to the site of pain, interacted appropriately withquestions and discussion. Client is demonstrating progress towards PT and/or personal goals, specifically Increased aerobic activity and increased weights/repetitions during group treatment. Client follows plan of care set up by Physical Therapist. Client continues to require ongoing physical therapy [...] pain education, gait training, physical performance testing [employer] Visit Trackin Total Visit Count: 09/05 Time Spent with Patient Therapeutic Interventions Group Therapy (min): 60 min Time Tracking Total Treatment Time (min): 60 min Alex Cardona P.T.A. * Katarzyna Navarrete M.S., O.T., [facility] - 11/26/2024 8:00 AM CDT Occupational Therapy Pain Rehabilitation Program Outpatient Progress Note The patient verbally consented to an audio recording of their visit to assist with the completion of documentation. SUBJECTIVE Patient's Name: Paramjit Boyce Preferred Name: Paramjit Reason for Referral/Referring Provider: Reason for Referral: OT/PT for Pain Rehabilitation Program.Referred by Kristi Sommer APRN, BREAKFAST HOST, M.S. Medical Diagnosis: 1. Pain Generalized 2. Decline Functional Status [R53.81] 3. Chronic Pain Syndrome [G89.4] Onset Date/Date OT Ordered: No data recorded Client Goals: Refer to personal goals established in COPM during initial evaluation. OBJECTIVE Pain: As documented by nursing in medical record. TREATMENT History of Present Illness OT met with client individually to problem-solve vocational exploration. Facilitated discussion of past employment, current school responsibilities, and vocational goals. Educated on benefit of having a vocational pursuit after the program to give him a sense of purpose, structure, socialization, and other benefits. Facilitated action plan creation to prepare for meeting later in the week regarding vocational plans. He is currently on disability, and must make less than $1600 a month to maintain this, but he noted this is not an issue since he would like to pursue working in the future. He isopen to considering work options that would not exacerbate his condition. 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 He is also considering volunteer work as an alternative to maintain productivity and social engagement. 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 He manages his coursework with about ten hours of study per week. He has ADHD and is on medication to aid in retaining information, particularly for his medical charge entry specialist certification. He is open to exploring work and volunteer opportunities that accommodate his medical needs, including potential part-time positions at an orthopedic urgent care and volunteer roles at local hospitals. He is also considering the impact of his upcoming cast placement on his ability to start new roles. His action plan is to explore volunteer options at [facility] and [facility] to see if he could volunteer there flexibly to accommodate upcoming procedures and restrictions. Assessment Clinical Impression: Paramjit's vocational pursuits have been significantly impacted by his health conditions. He reports his current life is boring and he is interested in working and/or volunteering in addition to goingto school after the [facility] program. He has significant hip issues, particularly with his right hip, which have hindered his ability to maintain employment. He experiences impingement pain when sitting for extended periods and lacks stabilizers when standing for long durations, with relief only achieved when lying down. He has a history of being placed in casts for joint stabilization, which providesrelief for about a year. He anticipates a hip spica cast placement in January, which will cover from his ankle to his chest, potentially affecting his ability to work. Client would benefit from continued occupational therapy to work towards goals stated below to improve daily functioning. Goals: 1. Client will utilize proper [...] achieve Occupational Therapy goals. Total Visit Count: 11/06 Treatment interventions may include: Group therapy, home management training, neuromuscular re-education, biofeedback training, cognitive skills training, community/work reintegration Time Spent with Patient Therapeutic Interventions Home Management Training (min): 30 min Time Tracking Total Timed Units (min): 30 min Total Treatment Time (min): 30 min Katarzyna Navarreet, , OTR/L, [facility] documented in this encounter Miscellaneous Notes * Group Note - Adyd Kendrick, Ph.D., L.P., ABP - 11/26/2024 8:00 AM CDT The patient attended Pain Psychology Behavioral Health Group. Number of patients in group: 11. Group facilitated by : Rashad Kendrick, Ph.D., L.P., [facility] Topic and Goals of Group session: CBT-2 Goals: Patient will identify the connection between an activating event, belief, and emotional/physical/behavioral consequences. Will identify personal pattern of cognitive errors and how this plays a role in the context of their symptoms. Introduce in discussion how to begin the process of disputing negative beliefs. Therapeutic interventions: Exploration of personal examples of patterns of cognitive errors and learn ways to reframe negative thoughts. Learning Methods Used: class/group, experiential practice, printed materials, and psychologist guided discussion. PHYSICAL EXAM Mental Status: Patient was attentive and engaged in discussion. Mood was calm. Affect was congruent. No self-harm ideation was endorsed. Thought process was within normal limits. Speech was linear and coherent. Behaviors were appropriately interactive with peers and cooperative with group sawsmith. Insight and judgment were adequate. ASSESSMENT / PLAN Evidence of Learning/Assessment of Progress: Patient's effort to show active interest/effort to learn and generalize new skills and behaviors during this session was good. He was quiet, yet attentiveand engaged, throughout the discussion regarding cognitive restructuring. He was encouraged to utilize cognitive restructuring to challenge negative thoughts associated with pain. #1 Pain Generalized #2 Decline Functional Status [R53.81] #3 Chronic Pain Syndrome [G89.4] Mr. Boyce will continue to participate in pain psychology and health education groups daily during his participation in the three-[facility] program. He is progressing in [facility] programming as expected. Time spent with patient (in minutes): 60 Signed by: Rashad Kendrick, Ph.D., L.P., [facility] 11/26/2024 4:36 PM CDT * Group Note - Hamilton Beebe, Ph.D., L.P. - 11/26/2024 8:00 AM CDT The patient attended Pain Psychology Behavioral Health Group. Number of patients in group: 12. Group facilitated by : Hamilton Beebe, Ph.D., L.P. Topic and Goals of Group session: Behavioral Sleep Group Goals: Patient will identify core behavioral sleep management approaches including stimulus controland sleep restriction as well as the contribution anxiety and negative self-talk in sleep disturbance. Therapeutic interventions: Discuss the difficulties of not being able to sleep related to chronic pain; Discuss the importance of behavioral strategies to improve the quality of sleep and discussion on ways to begin to make behavioral changes associated with sleep can improve the quality of sleep. Discussion of common thoughts associated with sleep and practice with re-framing emotionally arousing thoughts associated with sleep. Learning Methods Used: class/group, printed materials, psychologist guided discussion, and small group discussion. PHYSICAL EXAM Mental Status: Patient was attentive but quiet throughout the group discussion. Mood was calm. Affect was congruent. No self-harm ideation was endorsed. Thought process was within normal limits. Speech was linear and coherent. Behaviors were appropriately interactive with peers and cooperative with group sawsmith. Insight and judgment were adequate. ASSESSMENT / PLAN Evidence of Learning/Assessment of Progress: Patient's effort to show active interest/effort to learn and generalize new skills and behaviors during this session was good. Patient was attentive during the group discussion but really did make any spontaneous comments to suggestive content was applicable to any difficulties he was having with overnight sleep. He did acknowledge having difficulties with sleep at the onset of the group and so my hope is that some of this information could be potentially helpful for him moving forward. Mr. Boyce will continue to participate in pain psychology and health education groups daily during his participation in the three-[facility] program. He is progressing in [facility] programming as expected. #1 Pain Generalized #2 Decline Functional Status [R53.81] Time spent with patient (in minutes): 60 Signed by: Hamilton Beebe, Ph.D., L.P. 11/26/2024 4:44 PM CDT * Group Note - Addy Kendrick, Ph.D., L.P., ABPP - 11/26/2024 8:00 AM CDT The patient attended Pain Psychology Behavioral Health Group. Number of patients in group: 11. Group facilitated by : Rashad Kendrick, Ph.D., L.P., [facility] Topic and Goals of Group session: Passive muscle relaxation Goals of Intervention: Patient will participate in passive muscle relaxation to learn evidence-based techniques for self-management of pain symptoms. Therapeutic interventions: Experiential practice of autogenic relaxation technique. Learning Methods Used: experiential practice. PHYSICAL EXAM Mental Status: Patient was attentive and engaged. Mood was calm. Affect was congruent. No self- harm ideation was endorsed. Thought process was within normal limits. Speech was linear and coherent. Behaviors were appropriately interactive with peers and cooperative with group sawsmith. Insight and judgment wereadequate. ASSESSMENT / PLAN Evidence of Learning/Assessment of Progress: Patient's effort to show active interest/effort to learn and generalize new skills and behaviors during this session was good. He participated well in thepassive muscle relaxation exercise. He was encouraged to incorporate passive muscle relaxation intohis daily relaxation practice routine. #1 Pain Generalized #2 Decline Functional Status [R53.81] #3 Chronic Pain Syndrome [G89.4] Mr. Boyce will continue to participate in pain psychology and health education groups daily during his participation in the three-[facility]disciplinary [facility] program. He is progressing in PR[facility] programming as expected. Time spent with patient (in minutes): 30 Signed by: Rashad Kendrick, Ph.D., L.P., ABPP 11/26/2024 5:05 PM CDT * Group Note - Hamilton Beebe, Ph.D., L.P. - 11/26/2024 8:00 AM CDT The patient attended Pain Psychology Behavioral Health Group. Number of patients in group: 12. Group facilitated by : Seth Gardner RN & Hamilton Beebe, Ph.D., L.P. Topic and Goals of Group session: Movements and Stretch Goals: Patient will participate in movement and stretching along with focused breathing for relaxation to help increase management of chronic pain. Therapeutic interventions: Gentle movements and breathing as well as mindful and focused breathing relaxation technique. Learning Methods Used: class/group and experiential practice. PHYSICAL EXAM Mental Status: Patient was attentive and engaged in discussion. Mood was calm. Affect was congruent. No self-harm ideation was endorsed. Thought process was within normal limits. Speech was linear and coherent. Behaviors were appropriately interactive with peers and cooperative with group sawsmith. Insight and judgment were adequate. ASSESSMENT / PLAN Evidence of Learning/Assessment of Progress: Patient's effort to show active interest/effort to learn and generalize new skills and behaviors during this session was good. Patient actively participated in the stretch and roxana chi movements. #1 Pain Generalized #2 Decline Functional Status [R53.81] #3 Chronic Pain Syndrome [G89.4] Time spent with patient (in minutes): 30 Signed by: Hamilton Beebe, Ph.D., L.P. 11/26/2024 7:04 PM CDT documented in this encounter Plan of Treatment Upcoming Encounters Date Type Department Care Team (Late st Contact Info) Description 01/07/2025 1:30 PM PRODUCT DEVELOPMENT MANAGER Telemedicine Department of Urology in [place], [place] [address] [place] [phone] Danielle Pitt D.O. [address] [place] [phone] documented as of this encounter Visit Diagnoses Diagnosis Pain Generalized- Primary Decline Functional Status [R53.81] Chronic Pain Syndrome [G89.4] documented in this encounter Additional Health Concerns Assessment Noted Time PHQ-9 Depression Total Score: 5 07/07/19 24 9:17 PM CDT documented as of this encounter Care Teams Grain Shipper Relationship Specialty Start Date End Date Elsewhere, Pcp PCP - General Internal Medicine 05/22/18 documented as of this encounter
--- OUTSIDE RECORDS SUMMARY | 2024-11-27 07:00 | XMS_ITS | Encounter Summary ---
Author Organization [facility] Address [address] [place] [address] Care Team Providers Care Rating Examiner Name Role Phone Elsewhere, Pcp Primary Care Provider Unavailabl e Reason for Referral * Physical Therapy (Routine) - Closed Specialty Diagnoses / Procedures Referred By Ye lund Referred To Contact Diagnoses Pain Wrist Right Procedures PT or OT eval and treat (first available) Emiliana Rouse M.D. [address] [place] [address] Phone: tel: fax: [facility] Referral ID Status Reason Start Date Expiration Date Visits Re quested Visits Authorized [id number] Closed 11/28/2024 02/28/2026 1 1 Reason for Visit * Behavioral Health (Routine) - Authorized Specialty Diagnoses / Procedures Referred By Contact Referred To Contact Psychiatry / [facility] Diagnoses Chronic Pain Syndrome Procedures [facility] Programs MS GROUP THERAPY MS HLTH BHV IVNTJ GRP 1ST 30 MS HLTH BHV IVNTJ GRP EA ADDL 15 MS HOME MGMT TRAIN EA 15MIN PT MS PSY TST INTERP & FEEDBACK INIT HR Hamilton Beebe, Ph.D., L.P. [address] [place] [address] Phone: tel:[phone] fax:[phone] [facility] Referral ID Status Reason Start Date Expiration Date V isits Requested Visits Authorized [id number] Authorized 10/10/2024 02/06/2025 17 17 Encounter Details Date Type Department Care Team (Latest Contact Info) Description 11/27/2024 8:00 AM CDT Clinical Support [facility] in [place], [place] [address] [place] [address] Hamilton Beebe, Ph.D., L.P. 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 - 11/27/2024 8:00 AM CDT Physical Therapy Pain Rehabilitation Program Progress Note SUBJECTIVE Patient's Name: Paramjit Boyce Reason for Referral/Referring Provider: Reason for Referral: OT/PT for Pain Rehabilitation Program.Referred by Kristi Sommer APRN, BACKREST ASSEMBLER, M.S. Medical Diagnosis: 1. Pain Generalized 2. Decline Functional Status [R53.81] 3. Chronic Pain Syndrome [G89.4] No data recorded Payor: [facility] [place] CARE / Plan: [facility] HMO / Product Type: Medicaid HMO [...] returns home after PRC programming: Aerobic Exercise: Did not complete during PT session. Reports walking outside of physical therapy. Strength Exercise: Client completed full body exercise routine as outlined at initial setup of exercise with modifications/progressions as follows: increased resistance for bands. Client benefited from moderate cueing for muscle control, body mechanics, technique, graded exposure, and moderation? Flexibility Exercise: Client performed whole-body active range of motion and sustained stretching exercises for muscle, neural, joint flexibility, management of spasms/cramps and/or pain. Modified/progressed as follows: modified seated hamstring to have knee support . Balance Exercise: Client performed balance challenges with this therapist providing supervision [facility]. Client advised to utilize hand support as needed. Client performed the following: single leg balance with anterior, lateral, and posterior reaches and/or VOR gaze stabilization with head nods, rotation, and with eyes open/closed in modified stance. Modified/progressed balance challenge as follows: next to table for support as needed. Assessment Clinical Impression: Paramjit brought in his other ankle foot orthosis for assessment. PT scheduled assessment tomorrow morning for further assess gait and function with his ankle foot orthoses. Client returned for physical therapy as part of their PRC programming and fully participated. Client was able to increase weight or repetitions as recommended, tends to use compensatory strategies due to fear/fear avoidance (related to falls). Client is demonstrating progress towards PT and/or personal goals, specifically goal #1, as evidenced by increase in resistance bands. Client continues to require ongoing physical therapy for graded progressive exercise training and facilitating an activity plan on difficult days for improved activity tolerance, strength, and reduction of fear/avoidanceof movement. Functional Goals and Time Frames: PT [...] training, physical performance testing Total Visit Count: 10/06 Time Spent with Patient Therapeutic Interventions Group Therapy (min): 60 min Time Tracking Total Treatment Time (min): 60 min Jennifer Cerna P.T. * Emiliana Rouse M.D. - 11/27/2024 8:00 AM CDT SUBJECTIVE CHIEF COMPLAINT/REASON FOR VISIT Diffuse pain. HISTORY OF PRESENT ILLNESS The patient is involved in rehabilitation, is making good progress. He has very identified areas where he is experiencing functional gains. Because of his familiarity with CBT in general, he has not found the group sessions to be particularly helpful. However, he remains engaged. OBJECTIVE PHYSICAL EXAMINATION General: No apparent distress. Mental Status : Fully oriented and alert. Mood is euthymic. Affect is congruent. Neurological: Baseline. Musculoskeletal: No acuity. Gait: Nonantalgic. ASSESSMENT / PLAN #1 Diffuse pain PLAN: 1. Interdisciplinary rehabilitation: As noted, the patient is making good progress toward his defined goals. We will continue to support his efforts. 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 He is continuing to have reduced sensation in the right thumb. We will continue to follow this closely. The patient is also requesting referral to the [facility], and I will place this order. 3. It was a pleasure talking with Mr. Boyce today at [facility]. Emiliana Rouse M.D. CT CT Job ID: [id number] documented in this encounter Miscellaneous Notes * Group Note - Reyes Spears CNS, M.S., R.N. - 11/27/2024 8:00 AM CDT The patient attended Pain Psychology Behavioral Health Group. Number of patients in group: 15. Group facilitated by : Spenser Hickman RN [...] behaviors during this session was satisfactory. Following some of the movements in today's gentle roxana chi practice. Seated throughout the practice. Patient is making gradual progress as expected within movement groups. Patient will participate in daily pain psychology and health education groups for fifteen treatment days. #1 Pain Generalized #2 Decline Functional Status [R53.81] Time spent with patient (in minutes): 30 Signed by: TALA Davis, M.S., R.N. 11/27/2024 10:34 AM CDT * Group Note - Katarzyna Navarrete M.S., O.T., [facility] - 11/27/2024 8:00 AM CDT Occupational Therapy Pain Rehabilitation Program Outpatient Progress Note SUBJECTIVE Patient's Name: Paramjit Boyce Preferred Name: Paramjit Reason for Referral/Referring Provider: Reason for Referral: OT/PT for Pain Rehabilitation Program.Referred by Kristi Sommer APRN, BACKREST ASSEMBLER, M.S. Medical Diagnosis: 1. Pain Generalized 2. Decline Functional Status [R53.81] Onset Date/Date OT Ordered: No data recorded Client Goals: Refer to personal goals established in COP during initial evaluation. OBJECTIVE Pain: As documented by nursing in medical record. TREATMENT Group treatment: Group Attendance: Attended and was prompt for Occupational Therapy programming Group Session Attendance: 8 Group Participation: Patient was active and participatory. Client's identity confirmed and client attended group on office ergonomics. OT provided instructionin applications of PRC concepts to improve occupational performance in office ergonomics, moderation, and application of body mechanics to seated and tabletop activity. Education included office ergonomics principles, stretches to do at a workstation, applications of moderation to a workstation, and workstation modifications. OT provided group facilitation and individualized grading of instruction to address the needs of this client in the group setting. Assessment Clinical Impression: Response to Instruction: Client verbally demonstrated understanding, Client physically demonstratedunderstanding Progress Toward Goals: Is compliant with education provided Pain Response During Activities: Client demonstrated no pain behavior with activities Group Interactions Observations: Client asked appropriate questions and contributed to group discussion The client was receptive to education concepts as evidenced by verbalizing application of concepts to daily occupations. The client progressed in their ability to apply concepts of office ergonomics,moderation, and body mechanics skills to their daily functioning as evidenced by verbalizing and demonstrating ergonomics principles applied to daily activities. Client demonstrates emerging insight into importance of [...] achieve Occupational Therapy goals. Total Visit Count: 12/06 Treatment interventions may include: Group therapy, home management training, neuromuscular re-education, biofeedback training, cognitive skills training, community/work reintegration Time Spent with Patient Therapeutic Interventions Group Therapy (min): 60 min Time Tracking Total Treatment Time (min): 60 min Katarzyna Navarrete, , OTR/L, [facility] Electronically signed by Katarzyna Navarrete M.S., O.T., [facility] at 11/27/2024 2:11 PM CDT * Group Note - Gabriele Ferguson Jr., M.A., Natasha. - 11/27/2024 8:00 AM CDT The patient attended Pain Psychology Behavioral Health Group. Number of patients in group: 14. Group facilitated by : Gabriele Ferguson Jr., M.A., L.P.C.C. Topic and Goals of Group session: ACT Acceptance Goals: Patient will participate in an interactive discussion on acceptance and values-based decision and participate in a mindfulness exercise. Learning Methods: Class/group, handouts, activity Therapeutic Interventions included an introduction to concepts in lecture format and discussion, including experiential exercises and group activity. Learning Methods Used: class/group, psychologist guided discussion, video clips, and visual information. PHYSICAL EXAM Mental Status: Patient was attentive and engaged in discussion. Mood was calm. Affect was congruent. No self-harm ideation was endorsed. Thought process was within normal limits. Speech was linear and coherent. Behaviors were appropriately interactive with peers and cooperative with group instructional facilitator. Insight and judgment were adequate. ASSESSMENT / PLAN Evidence of Learning/Assessment of Progress: Patient's effort to show active interest/effort to learn and generalize new skills and behaviors during this session was good. Paramjit shared several comments early on in the session and was much quiet her towards the end when exploring what is acceptance and how this can look in the context of managing chronic health difficulty. Will continue to participate in pain psychology and health education groups daily during participation in the three-week interdisciplinary [facility] program. Progressing in PRC programming as expected. #1 Pain Generalized #2 Decline Functional Status [R53.81] Time spent with patient (in minutes): 45 Signed by: Gabriele Ferguson Jr., M.A., L.P.CBeatriz 11/27/2024 2:33 PM CDT * Group Note - Gabriele Ferguson Jr., M.A., L.P.C.C. - 11/27/2024 8:00 AM CDT The patient attended Pain Psychology Behavioral Health Group. Number of patients in group: 15. Group facilitated by : Gabriele Ferguson Jr., M.A., L.P.C.C. Topic and Goals of Group session: Progressive Muscle Relaxation Goals of Intervention: Patient will participate in progressive muscle relaxation to learn evidence-based techniques for self-management of pain symptoms. Therapeutic interventions: Experiential practice of progressive muscle relaxation technique. Learning Methods Used: class/group, experiential practice, and psychologist guided discussion. PHYSICAL EXAM Mental Status: Patient was attentive and engaged in discussion. Mood was calm. Affect was congruent. No self-harm ideation was endorsed. Thought process was within normal limits. Speech was linear and coherent. Behaviors were appropriately interactive with peers and cooperative with group instructional facilitator. Insight and judgment were adequate. ASSESSMENT / PLAN Evidence of Learning/Assessment of Progress: Patient's effort to show active interest/effort to learn and generalize new skills and behaviors during this session was good. Paramjit was engaged in the relaxation practice appropriately. Will continue to participate in pain psychology and health education groups daily during participation in the three-week interdisciplinary [facility] program. Progressing in PRC programming as expected. #1 Pain Generalized #2 Decline Functional Status [R53.81] Time spent with patient (in minutes): 30 Signed by: Gabriele Ferguson Jr., M.A., L.P.C.C. 11/27/2024 2:55 PM CDT * Group Note - Reyes Spears CNS, M.S., R.N. - 11/27/2024 8:00 AM CDT The patient attended Pain Psychology Behavioral Health Group. Number of patients in group: 12. Group facilitated by : TALA Davis, M.S., R.N. Topic and Goals of Group session: PRC Philosophy of Medications Goals of Intervention: Patient will verbalize understanding of the [facility] philosophy on medication use(particularly opioid and benzodiazepine use) and chronic pain. Therapeutic interventions: therapist lead discussion about how medication use (analgesics and benzodiazepines) may lead to problems with use with chronic pain such as impacting function and quality of life. Encouraging group members to provide input in discussion as to how their lives may have beenaffected with use of analgesics for chronic pain. Learning Methods Used: class/group, printed materials, small group discussion, and visual information. PHYSICAL EXAM Mental Status: Patient was attentive and engaged. Mood was calm. Affect was congruent. No self- harm ideation was endorsed. Behaviors cooperative. ASSESSMENT / PLAN Evidence of Learning/Assessment of Progress: Patient's effort to show active interest/effort to learn and generalize new skills and behaviors during this session was satisfactory. Interactive before the group and during introductions, otherwise quiet but appeared attentive. Overall patient is making slow progress in groups. Patient will participate in daily pain psychology and health education groups for fifteen treatment days. #1 Pain Generalized #2 Decline Functional Status [R53.81] Time spent with patient (in minutes): 60 Signed by: TALA Davis, M.S., R.N. 11/27/2024 3:25 PM CDT documented in this encounter Plan of Treatment Upcoming Encounters Date Type Department Care Team (Late st Contact Info) Description 01/07/2025 1:30 PM [employer] Telemedicine Department of Urology in [place], [place] [address] [place] [address] Danielle Pitt D.O. [address] [place] [address] documented as of this encounter Visit Diagnoses Diagnosis Pain Generalized- Primary Decline Functional Status [R53.81] Chronic Pain Syndrome [G89.4] Pain Wrist Right documented in this encounter Additional Health Concerns Assessment Noted Time PHQ-9 Depression Total Score: 5 07/07/19 24 9:17 PM CDT documented as of this encounter Care Teams Rating Examiner Relationship Specialty Start Date End Date Elsewhere, Pcp PCP - General Internal Medicine 05/22/18 documented as of this encounter
--- OUTSIDE RECORDS SUMMARY | 2024-11-28 07:00 | XMS_ITS | Encounter Summary ---
Author Organization [facility] Address [address] [place] [id number] Care Team Providers Care Traffic Coordinator Name Role Phone Elsewhere, Pcp Primary Care Provider Unavailabl e Reason for Visit * Behavioral Health (Routine) - Authorized Specialty Diagnoses / Procedures Referred By Contact Referred To Contact Psychiatry / [facility] Rehabilitation [facility] Diagnoses Chronic Pain Syndrome Procedures [facility] Programs [place] GROUP THERAPY [place] HLTH BHV IVNTJ GRP 1ST 30 [place] HLTH BHV IVNTJ GRP EA ADDL 15 [place] HOME MGMT TRAIN EA 15MIN PT [place] PSY TST INTERP & FEEDBACK INIT HR Hamilton Beebe, Ph.D., L.P. [address] [place] [phone] Phone: tel:[phone] fax:[phone] [place] Referral ID Status Reason Start Date Expiration Date V isits Requested Visits Authorized [id number] Authorized 10/10/2024 02/06/2025 17 17 Encounter Details Date Type Department Care Team (Latest Contact Info) Description 11/28/2024 8:00 AM CDT Clinical Support [facility] in [place], [place] [address] [place] [phone] Hamilton Beebe, Ph.D., L.P. 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 I have a [facility] place to live 05/29/2024 Education Answer Date Recorded What is the highest level of school you have completed or the highest degree you have received? 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 - 11/28/2024 8:00 AM CDT Physical Therapy Pain Rehabilitation Program Progress Note SUBJECTIVE Patient's Name: Paramjit Boyce Reason for Referral/Referring Provider: Reason for Referral: OT/PT for Pain Rehabilitation Program.Referred by Kristi Sommer APRN, TALA, M.S. Medical Diagnosis: 1. Pain Generalized 2. Decline Functional Status [R53.81] 3. Chronic Pain Syndrome [G89.4] No data recorded Payor: [facility] CARE / Plan: [facility] [employer] HMO / Product Type: Medicaid HMO / [...] returns home after PRC programming: Aerobic Exercise: Strength Exercise: Client partially completed full body exercise routine as outlined at initial setup of exercise with modifications/progressions as follows: Initiated repeated gsl-ja-ligen from higher surface level with focus base of support, and eccentric lowering. Client benefited from verbal, visual, and tactile cueing for lower trunk control and technique? Assessment Clinical Impression: Client returned for physical therapy as part of their PRC programming and fully participated and was receptive to education with some hesitancy. Today's therapy session was shortened due to clients AFOs being adjusted by fellow PT, see PT note for details. Client tolerated exercise well, was able to increase weight or repetitions as recommended, required occasional 1:1 assistance to perform exercises correctly, had no pain behaviors during PT session. Client is demonstrating progress towards PTand/or personal goals, specifically tolerated initiation of repeated sit to stands from higher surface levels. Client continues to require ongoing physical therapy for graded progressive exercise training and facilitating an activity plan on difficult days for improved activity tolerance, strength,and reduction of fear/avoidance of movement. Functional Goals [...] pain education, gait training, physical performance testing [employer] SUPER[employer] Visit Trackin Total Visit Count: 11/06 Time Spent with Patient Therapeutic Interventions Group Therapy (min): 30 min Time Tracking Total Treatment Time (min): 90 min Etienne Sheldon PMackenzieTSally This note is dictated using Fluency Direct. Therapist has edited note, but grammatical errors are possible. * Brabara Raman P.T. - 11/28/2024 8:00 AM CDT Physical Therapy Pain Rehabilitation Program Progress Note SUBJECTIVE Patient's Name: Paramjit Boyce Reason for Referral/Referring Provider: Reason for Referral: OT/PT for Pain Rehabilitation Program.Referred by Kristi Sommer APRN, TALA, M.S. Medical Diagnosis: 1. Pain Generalized 2. Decline Functional Status [R53.81] 3. Chronic Pain Syndrome [G89.4] No data recorded Payor: [facility] [employer] [facility] CARE / Plan: [facility] [employer] HMO / Product Type: Medicaid HMO / [...] Treatment today consisted of: Individual 1:1 Treatment: -Paramjit has left casted foot/ankle in a Darco shoe. Right foot/ankle in a right articulated ankle foot orthosis with plantar flexion available. Recorded Paramjit's gait with Articulated ankle foot orthosis,solid ankle ankle foot orthosis, and no ankle foot orthosis. Swing on right exhibited a stuttering toe catch with prolonged stance on left. Occasional stuttering toe catch (1-2 x ) on left. Decreased hip flexion on right during swing. No noted knee buckling noted today. -Adjusted articulated ankle foot orthosis to neutral positioning to facilitate toe clearance. This did not appear to changed gait pattern or to decrease right toe catching. Solid ankle foot orthosis decreased toe catching slightly. Paramjit updated that his knees felt a lot more stable with the high posterior support and solid ankle AFO. -worked on gait with focus on increasing right hip flexion with cueing to bring knee forward to tapPT's hands. Was able to achieve this a few times but not consistently. Trialed use of walking stickwhich reduced quality of gait. -Instructed on active assisted dorsiflexion, inversion and eversion of right ankle - using a band. Instructed on wobble board 10 x forward/backward & laterally on right. Put in exercise book -Paramjit is looking into right hip spica cast in the near future for immobilization and was also asking about the benefits of being fitted for a right knee ankle foot orthosis. Educated on the detriments of prolonged casting/immobilization which include muscle atrophy, limited joint motion, smudging of the immobilized body part in the brains homunculus, impaired body awareness/positioning in space. -Educated that the right solid ankle foot orthosis feels safe and stable but from a rehabilitation stand point it is overly immobilizing. I want Paramjit to start moving his right foot and ankle more naturally and rebuild the strength and stability. At minimum Paramjit should have the lateral side trimmed back and ankle articulated. 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 -re-educated on the importance of aerobic exercise. Paramjit states that he does a lot of aerobic exercise out of the program and did not feel he needed the additional focus on it here. He states he ambulates a lot and used to swim before he had his J tube. Will need to work on clarifying and redefining aerobic with Paramjit in the future as neither activity appears appropriate for aerobic activity at this time. He states he rides bike for activity - will want to assess that on a stationary bike Assessment Clinical Impression: Paramjit exhibits impaired gait mechanics with lack of full active dorsiflexion and hip flexion in gait resulting in toe catching. There has been variable quality with gait. There was not marked improvements with bracing or walking pole support. Discussed rationale of decreasing immobility to promote functional return and optimal quality and mechanics of gait. Client returned for physical therapy as part of their [facility] programming and participated. Client continues to require ongoing physical therapy [...] duration of aerobic training, and balance training. Will focus tomorrow onAndre working through his exercise routine and trialing different aerobic methods. 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 documented in this encounter Miscellaneous Notes * Group Note - Reyes Spears CNS, M.S., R.N. - 11/28/2024 8:00 AM CDT The patient attended Pain Psychology Behavioral Health Group. Number of patients in group: 14. Group facilitated by : TALA Davis, M.S., R.N. Topic and Goals of Group session: Pain Behaviors Goals: Patient will participate in an open forum discussion of the impact of pain behaviors on painsignaling and relationships. Therapeutic Interventions: Discuss with patients the definition and personal examples of pain behaviors. Discussed familial reactions to pain behaviors (solicitous or punitive) and ways to communicate with others focusing on functioning as opposed to symptoms. Learning Methods Used: class/group, printed materials, small group discussion, and visual information. PHYSICAL EXAM Mental Status: Patient was attentive and engaged. Mood was calm. Affect was congruent. No self- harm ideation was endorsed. Behaviors cooperative. ASSESSMENT / PLAN Evidence of Learning/Assessment of Progress: Patient's effort to show active interest/effort to learn and generalize new skills and behaviors during this session was good. Able to identify own pain behaviors (avoidance of opportunity, talking about symptoms frequently to friends), and willing to explore the consequences as a rationale for change. Patient is making gradual progress as expected. Patient will participate in daily pain psychology and health education groups for fifteen treatment days. #1 Pain Generalized #2 Decline Functional Status [R53.81] Time spent with patient (in minutes): 60 Signed by: TALA Davis, M.S., R.N. 11/28/2024 10:28 AM CDT * Group Note - Kassy Barboza M.S., O.T. - 11/28/2024 8:00 AM CDT Occupational Therapy Pain Rehabilitation [...] Group Participation: Patient was active and participatory. Time Management Group: Client's identity confirmed and client attended group on time management. Group consisted of education of time management concepts and engaging in structuring and organizing time to promote life balance and implementation of program concepts. The client participated in a brief self- assessment and group reflection of strengths and limitations related to planning their time. OT provided instruction in organization, prioritization, moderation, modification, communication, and stress manage principles to support the client in managing their time effectively. Group discussion included application of program concepts to time management during daily occupations and identification of activities, habits, and routines that interfere with effective and satisfying management oftime. Client was instructed to utilize time management to plan activities during the PRC program and for the weeks following program completion to assist with follow-through of program concepts. Assessment Clinical Impression: Response to Instruction: Client verbally demonstrated understanding Progress Toward Goals: Appropriate progress Pain Response During Activities: Client demonstrated no pain behavior with activities Group Interactions Observations: Client asked appropriate questions and contributed to group discussion Time Management Clinical Impression: The client was receptive to education concepts as evidenced bytaking notes, asking questions, verbalizing application of concepts to daily occupations, and actively engaging in activities. The client demonstrates understanding and application of time managementconcepts to progress toward PRC goals and OT focus areas. Next steps to further progress OT goals are to incorporate/generalize cognitive strategies and weekend planning groups this week. The client will continue to benefit from skilled occupational therapy to continue progressing functional application of PRC concepts to daily occupations. Goals: 1. Client will utilize proper [...] achieve Occupational Therapy goals. Total Visit Count: 01/06 Treatment interventions may include: Group therapy, home management training, neuromuscular re-education, biofeedback training, cognitive skills training, community/work reintegration Time Spent with Patient Therapeutic Interventions Group Therapy (min): 60 min Time Tracking Total Treatment Time (min): 60 min Kassy Barboza M.S., O.T. * Group Note - Gabriele Ferguson Jr., M.A., L.P.CMackenzieC. - 11/28/2024 8:00 AM CDT The patient attended Pain Psychology Behavioral Health Group. Number of patients in group: 15. Group facilitated by : Gabriele Ferguson Jr., M.A., L.P.CMackenzieCMackenzie and DIPAK RenaeS Topic and Goals of Group session: Recreational Group Goals of Intervention: Patient will participate in recreational calming techniques for self-management of pain symptoms and understand the importance of implementing recreation on a consistent basis. Therapeutic interventions: Experiential recreational activities and discussion of the importance ofrecreational activities in daily life as a means to increase self-management of pain symptoms. Learning Methods Used: class/group, experiential practice, printed materials, and psychologist guided discussion. PHYSICAL EXAM Mental Status: Patient was attentive and engaged in discussion. Mood was calm. Affect was congruent. No self-harm ideation was endorsed. Thought process was within normal limits. Speech was linear and coherent. 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 Insight and judgment were adequate. ASSESSMENT / PLAN Evidence of Learning/Assessment of Progress: Patient's effort to show active interest/effort to learn and generalize new skills and behaviors during this session was good. Paramjit was active with several of his peers while engaging in a physically active recreational activities such as a [employer] game. Will continue to participate in pain psychology and health education groups daily during participation in the three-week [facility]disciplinary [facility] program. Progressing in PRC programming as expected. #1 Pain Generalized #2 Decline Functional Status [R53.81] #3 Chronic Pain Syndrome [G89.4] Time spent with patient (in minutes): 30 Signed by: Gabriele Ferguson Jr., M.A., L.P.C.C. 11/28/2024 2:03 PM CDT * Group Note - Reyes Spears CNS, M.S., R.N. - 11/28/2024 8:00 AM CDT The patient attended Pain Psychology Behavioral Health Group. Number of patients in group: 15. Group facilitated by : TALA Davis, M.S., R.N. Topic and Goals of Group session: Passive progressive muscle relaxation Goals of Intervention: Patient will participate in passive progressive muscle relaxation to learn evidence-based techniques for self-management of pain symptoms. Therapeutic interventions: experiential practice of autogenic relaxation technique. Learning Methods Used: class/group and experiential practice. PHYSICAL EXAM Mental Status: Patient was attentive and engaged in practice. Mood was calm. Affect was congruent. No self-harm ideation was endorsed. Behaviors cooperative. ASSESSMENT / PLAN Evidence of Learning/Assessment of Progress: Patient's effort to show active interest/effort to learn and generalize new skills and behaviors during this session was adequate. Engaged well during today's guided passive progressive relaxation practice exercises. Describes often becoming sleepy during relaxation. Patient is making gradual progress as expected within relaxation practices. Patient will participate in daily pain psychology and health education groups for fifteen treatment days. #1 Pain Generalized #2 Decline Functional Status [R53.81] #3 Chronic Pain Syndrome [G89.4] Time spent with patient (in minutes): 30 Signed by: TALA Davis, M.SMackenzie, R.N. 11/28/2024 3:43 PM CDT * Group Note - Gabriele Ferguson Jr., M.A., L.P.C.C. - 11/28/2024 8:00 AM CDT The patient attended Pain Psychology Behavioral Health Group. Number of patients in group: 13. Group facilitated by : Gabriele Ferguson Jr. MSally, L.P.C.C. Topic and Goals of Group session: CBT-3 Goals: Patient will identify the connection between an activating event, belief, and emotional/physical/behavioral consequences and how to dispute negative beliefs. Therapeutic interventions include: Exploration of personal examples of cognitive errors and emotional reactions and how to dispute these thoughts and cognitive re-framing. Learning Methods Used: class/group, printed materials, psychologist guided discussion, and visual information. PHYSICAL EXAM Mental Status: Patient was attentive and engaged in discussion. Mood was calm. Affect was congruent. No self-harm ideation was endorsed. Thought process was within normal limits. Speech was linear and coherent. 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 Insight and judgment were adequate. ASSESSMENT / PLAN Evidence of Learning/Assessment of Progress: Patient's effort to show active interest/effort to learn and generalize new skills and behaviors during this session was fair. He was very quiet but attentive throughout the session. Will continue to participate in pain psychology and health education groups daily during participation in the three-week interdisciplinary [facility] program. Progressing in PRC programming as expected. #1 Pain Generalized #2 Decline Functional Status [R53.81] #3 Chronic Pain Syndrome [G89.4] Time spent with patient (in minutes): 60 Signed by: Gabriele Ferguson Jr., M.A., DemetriceCBeatriz 11/28/2024 3:55 PM CDT documented in this encounter Plan of Treatment Upcoming Encounters Date Type Department Care Team (Late st Contact Info) Description 01/07/2025 1:30 PM TRIAGE CLINICIAN Telemedicine Department of Urology in [place], [place] [address] [place] [phone] Danielle Pitt D.O. [address] [place] [phone] documented as of this encounter Visit Diagnoses Diagnosis Pain Generalized- Primary Decline Functional Status [R53.81] Chronic Pain Syndrome [G89.4] documented in this encounter Additional Health Concerns Assessment Noted Time PHQ-9 Depression Total Score: 5 07/07/19 24 9:17 PM CDT documented as of this encounter Care Teams Traffic Coordinator Relationship Specialty Start Date End Date Elsewhere, Pcp PCP - General Internal Medicine 05/22/18 documented as of this encounter
--- OUTSIDE RECORDS SUMMARY | 2024-11-29 07:00 | XMS_ITS | Encounter Summary ---
Author Organization [facility] Address [address] [place] [address] Care Team Providers Care Carpenter Labor Supervisor Name Role Phone Elsewhere, Pcp Primary Care Provider Unavailabl e Reason for Visit * Behavioral Health (Routine) - Authorized Specialty Diagnoses / Procedures Referred By Contact Referred To Contact Psychiatry / [facility] Diagnoses Chronic Pain Syndrome Procedures [facility] Programs PA GROUP THERAPY PA HLTH BHV IVNTJ GRP 1ST 30 PA HLTH BHV IVNTJ GRP EA ADDL 15 PA HOME MGMT TRAIN EA 15MIN PT PA PSY TST INTERP & FEEDBACK INIT HR Hamilton Beebe, Ph.D., L.P. [address] [place] [phone] Phone: tel:[phone] fax:[phone] [place] Referral ID Status Reason Start Date Expiration Date V isits Requested Visits Authorized [id number] Authorized 10/10/2024 02/06/2025 17 17 Encounter Details Date Type Department Care Team (Latest Contact Info) Description 11/29/2024 8:00 AM CDT Clinical Support [facility] in [place], [place] [address] [place] [phone] Hamilton Beebe, Ph.D., L.P. 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 - 11/29/2024 8:00 AM CDT Physical Therapy Pain Rehabilitation Program Progress Note SUBJECTIVE Patient's Name: Paramjit Boyce Reason for Referral/Referring Provider: Reason for Referral: OT/PT for Pain Rehabilitation Program.Referred by Kristi Sommer APRN, EARLY CHILDHOOD EDUCATOR AIDE, M.S. Medical Diagnosis: 1. Pain Generalized 2. Decline Functional Status [R53.81] 3. Chronic Pain Syndrome [G89.4] No data recorded Payor: [facility] CARE / Plan: [facility] [employer] HMO / Product Type: Medicaid HMO / [...] home after PRC programming: Aerobic Exercise: Client did not perform aerobic exercise in physical therapy. Strength Exercise: Client completed full body exercise routine as outlined at initial setup of exercise with modifications/progressions as follows.continue to encourage quality with step ups. Flexibility Exercise: Client performed whole-body active range of motion and sustained stretching exercises for muscle, neural, joint flexibility, management of spasms/cramps and/or pain. Paramjit had some good questions about when and when not to listen to ones body, in response to painand protection. Had good discussion. It is not always a precise yes/no answer. Discussed that thereare variables and areas of velez. When we talk about pain behaviors I encouraged him to write a pro/con list of why a certain item/thing may be helpful or unhelpful/detrimental and to review why we make the choices we do, to get an idea of how something may be affecting us one way or another. Assessment Clinical Impression: Paramjit is present and worked on his exercise routine. Will discuss what he wants to work on for aerobic tomorrow or how he wants to track it. Will continue to focus on quality movements particularly with sit to/from stand and step ups. Paramjit is wearing his articulated ankle footorthosis on right with fluctuating gait quality. Is independent without gait aid. Client returned for physical therapy as part of their [facility] programming and participated with encouragement. Client tolerated exercise well. Client is demonstrating progress towards PT and/or personal goals, specifically steps, as evidenced by working on step up/down with one railing. Client continues to require ongoing physical therapy [...] facilitate completion of work-related and household tasks. MET: bands and weights. still working on a few repetition exercises. PT Goal #2: Client will perform 15 minutes of aerobic activity at appropriate intensity level (target heart rate/perceived exertion scale) by dismissal, to facilitate engagement in the community and workplace.: Progressing - at 8 minutes PT Goal #3: Client will understand exercise [...] training, physical performance testing Total Visit Count: 01/06 Time Spent with Patient Therapeutic Interventions Group Therapy (min): 60 min Time Tracking Total Treatment Time (min): 60 min Barbara Raman P.T. documented in this encounter Miscellaneous Notes * Group Note - Reyes Spears CNS, M.S., R.N. - 11/29/2024 8:00 AM CDT The patient attended Pain Psychology Behavioral Health Group. Number of patients in group: 16. Group facilitated by : TALA Davis, M.S., R.N. Patient participated in a session Cycle of Pain and PRC Concepts Goals: To provide brief overview the cycle of pain and how this informs core PRC concepts includingbiopsychosocial model of chronic pain, acute vs. chronic pain, role of relaxation, cognitive behavioral therapy model, relaxation, pain behaviors and family responses, value of exercise, activity pacing, medication tapers and goal setting. Learning Methods: visual information, guided discussion PHYSICAL EXAM Mental Status: Patient was attentive and engaged. Mood was calm. Affect was congruent. No self- harm ideation was endorsed. Behaviors cooperative. ASSESSMENT / PLAN Evidence of Learning/Assessment of Progress: Patient's effort to show active interest/effort to learn and generalize new skills and behaviors during this session was fair. Active with peers before the group, generally listening but later turned his chair and had his eyes closed. Offered no comment regarding the information presented. Patient is making gradual progress as expected. Patient will participate in daily pain psychology and health education groups for fifteen treatment days. #1 Pain Generalized #2 Decline Functional Status [R53.81] #3 Chronic Pain Syndrome [G89.4] Time spent with patient (in minutes): 60 Signed by: TALA Davis, M.S., R.N. 11/29/2024 10:22 AM CDT * Group Note - Katarzyna Navarrete M.S., O.T., [facility] - 11/29/2024 8:00 AM CDT Occupational Therapy Pain Rehabilitation Program Outpatient Progress Note SUBJECTIVE Patient's Name: Paramjit Boyce Preferred Name: Paramjit Reason for Referral/Referring Provider: Reason for Referral: OT/PT for Pain Rehabilitation Program.Referred by Kristi Sommer APRN, EARLY CHILDHOOD EDUCATOR AIDE, M.S. Medical Diagnosis: 1. Pain Generalized 2. [...] Group Session Attendance: 7 Group Participation: Patient was active and participatory. Cognitive Strategies Group: Client's identity confirmed and client attended group on cognitive strategies. Group consisted of education of barriers to cognitive functioning, types of attention and memory, and functional skills to promote effective cognitive functioning in daily occupations. OT provided instruction in healthy habits and cognitive strategies to support the client in optimizing cognitive functioning in daily occupations. Assessment Clinical Impression: Response to Instruction: Client verbally demonstrated understanding Progress Toward Goals: Appropriate progress Pain Response During Activities: Client demonstrated no pain behavior with activities Group Interactions Observations: Client asked appropriate questions and contributed to group discussion Cognitive Strategies Clinical Impression: The client was receptive to education concepts as evidenced by taking notes, asking questions, verbalizing application of concepts to daily occupations, and actively engaging in activities. The client progressed in their ability to apply attention and memory skills to their daily functioning as evidenced by identifying specific strategies they will incorporate into their daily routine. Client progressed towards OT goal of creating and implementing a daily plan by identifying ways to help organize their environment/mind/time and compensate for identified difficulties with cognitive functioning. Client demonstrates good insight into importance of [...] achieve Occupational Therapy goals. Total Visit Count: 02/05 Treatment interventions may include: Group therapy, home management training, neuromuscular re-education, biofeedback training, cognitive skills training, community/work reintegration Time Spent with Patient Therapeutic Interventions Group Therapy (min): 60 min Time Tracking Total Treatment Time (min): 60 min Katarzyna Navarrete, , OTR/L, [facility] * Group Note - Gabriele Ferguson Jr., M.A., L.P.C.C. - 11/29/2024 8:00 AM CDT The patient attended Pain Psychology Behavioral Health Group. Number of patients in group: 16. Group facilitated by : Gabriele Ferguson Jr., M.A., L.P.C.C., Kennedy Casarez RN, and Maame Santiago RN. Topic and Goals of Group session: [...] interactive with peers and cooperative with group pill coater. Insight and judgment were adequate. ASSESSMENT / PLAN Evidence of Learning/Assessment of Progress: Patient's effort to show active interest/effort to learn and generalize new skills and behaviors during this session was fair. Paramjit appeared rather distracted and preoccupied during the beginning portion of the mindfulness practice. He was able to engage in the walking portion appropriately. Will continue to participate in pain psychology and health education groups daily during participation in the three-week interdisciplinary [facility] program. #1 Pain Generalized #2 Decline Functional Status [R53.81] #3 Chronic Pain Syndrome [G89.4] Time spent with patient (in minutes): 30 Signed by: Gabriele Ferguson Jr., M.A., L.P.C.C. 11/29/2024 2:09 PM CDT * Group Note - Gabriele Ferguson Jr., M.A., L.P.C.C. - 11/29/2024 8:00 AM CDT The patient attended Pain Psychology Behavioral Health Group. Number of patients in group: 16. Group facilitated by : Gabriele Ferguson Jr., M.A., L.P.C.C. Topic and Goals of Group session: Doing the Opposite Goals of Intervention: Patient will understand the function of emotions and emotion driven behaviors in relation to the patient's pain symptoms. Patient will learn strategies such as doing the opposite of the emotion drive behavior to reduce the intensity of negative emotions. Therapeutic interventions included introduction of concepts in lecture format, handout, and small group discussions on doing the opposite of action urges when experiencing strong negative emotions. Learning Methods Used: class/group, printed materials, psychologist guided discussion, and visual information. PHYSICAL EXAM Mental Status: Patient was attentive and engaged in discussion. Mood was calm. Affect was congruent. No self-harm ideation was endorsed. Thought process was within normal limits. Speech was linear and coherent. Behaviors were appropriately interactive with peers and cooperative with group pill coater. Insight and judgment were adequate. ASSESSMENT / PLAN Evidence of Learning/Assessment of Progress: Patient's effort to show active interest/effort to learn and generalize new skills and behaviors during this session was fair. Paramjit was very quiet duringthe group with the exception of one comment he made early on. Although quiet, he was attentive. Will continue to participate in pain psychology and health education groups daily during participation in the three-week interdisciplinary [facility] program. #1 Pain Generalized #2 Decline Functional Status [R53.81] #3 Chronic Pain Syndrome [G89.4] Time spent with patient (in minutes): 60 Signed by: Gabriele Ferguson Jr., M.A., Ruben 11/29/2024 2:30 PM CDT * Group Note - Reyes Spears CNS [place], R.N. - 11/29/2024 8:00 AM CDT The patient attended Pain Psychology Behavioral Health Group. Number of patients in group: 14. Group facilitated by : TALA Davis, MYuliet, R.N. Topic and Goals of Group session: Personalized Guided Imagery Goals: Patient will learn and practice mindfulness techniques to create a personalized guided imagery script, increase overall relaxation and reduce muscle tension associated with chronic pain symptoms. Therapeutic interventions: Guided instruction in creating a personalized guided imagery script and experiential mindfulness exercise. Learning Methods Used: class/group and experiential practice. PHYSICAL EXAM Mental Status: Patient was attentive and engaged in practice. Mood was calm. Affect was congruent. No self-harm ideation was endorsed. Behaviors cooperative. ASSESSMENT / PLAN Evidence of Learning/Assessment of Progress: Patient's effort to show active interest/effort to learn and generalize new skills and behaviors during this session was adequate. Engaged appropriately during today's guided imagery session. Later gave the practice a thumb's up. Patient is making slow steady progress as expected within relaxation practices. Patient will participate in daily pain psychology and health education groups for fifteen treatment days. #1 Pain Generalized #2 Decline Functional Status [R53.81] #3 Chronic Pain Syndrome [G89.4] Time spent with patient (in minutes): 30 Signed by: TALA Davis, M.SMackenzie, R.N. 11/29/2024 2:57 PM CDT documented in this encounter Plan of Treatment Upcoming Encounters Date Type Department Care Team (Late st Contact Info) Description 01/07/2025 1:30 PM SSAS DEVELOPER Telemedicine Department of Urology in [place], [place] [address] [place] [phone] Danielle Pitt D.O. [address] [place] [phone] documented as of this encounter Visit Diagnoses Diagnosis Pain Generalized- Primary Decline Functional Status [R53.81] Chronic Pain Syndrome [G89.4] documented in this encounter Additional Health Concerns Assessment Noted Time PHQ-9 Depression Total Score: 5 07/07/19 24 9:17 PM CDT documented as of this encounter Care Teams Carpenter Labor Supervisor Relationship Specialty Start Date End Date Elsewhere, Pcp PCP - General Internal Medicine 05/22/18 documented as of this encounter
--- OUTSIDE RECORDS SUMMARY | 2024-11-30 07:00 | XMS_ITS | Encounter Summary ---
Author Organization [facility] Address [address] [place] [address] Care Team Providers Care Power Generation Engineer Name Role Phone Elsewhere, Pcp Primary Care Provider Unavailabl e Reason for Visit * Behavioral Health (Routine) - Authorized Specialty Diagnoses / Procedures Referred By Contact Referred To Contact Psychiatry / [facility] Diagnoses Chronic Pain Syndrome Procedures [facility] Programs NM GROUP THERAPY NM HLTH BHV IVNTJ GRP 1ST 30 NM HLTH BHV IVNTJ GRP EA ADDL 15 NM HOME MGMT TRAIN EA 15MIN PT NM PSY TST INTERP & FEEDBACK INIT HR Hamilton Beebe, Ph.D., L.P. [address] [place] [phone] Phone: tel: fax:[phone] [place] Referral ID Status Reason Start Date Expiration Date V isits Requested Visits Authorized [id number] Authorized 10/10/2024 02/06/2025 17 17 Encounter Details Date Type Department Care Team (Latest Contact Info) Description 11/30/2024 8:00 AM CDT Clinical Support [facility] in [place], [place] [address] [place] [phone] Hamilton Beebe, Ph.D., L.P. 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 - 11/30/2024 8:00 AM CDT Physical Therapy Pain Rehabilitation Program Progress Note SUBJECTIVE Patient's Name: Paramjit Boyce Reason for Referral/Referring Provider: Reason for Referral: OT/PT for Pain Rehabilitation Program.Referred by Kristi Sommer APRN, ROAD GRADER, M.S. Medical Diagnosis: 1. Pain Generalized 2. Decline Functional Status [R53.81] 3. Chronic Pain Syndrome [G89.4] No data recorded Payor: [facility] CARE / Plan: [facility] [employer] HMO / Product Type: Medicaid HMO / [...] once client returns home after [facility] programming: Strength Exercise: Client completed full body exercise routine as outlined at initial setup of exercise with modifications/progressions as follows: Increased weights/repetitions. Client benefited from verbal cueing for breathing, muscle control, lower trunk control, muscle relaxation, and posture? Assessment Clinical Impression: Client was able to get in 20 minutes of group therapy during treatment session. Client was busy talking with the team for majority of the treatment session. Client was having a difficult day and was able to get through his strengthening exercises during group session. Client returned for physical therapy as part of their [facility] programming and participated in 20 minutes of group activity. Client withdrawn during treatment session. However, performed strengthening exercises for upper extremities and lower extremities during treatment. Client is demonstrating progress towards PT and/or personal goals, specifically Increased aerobic activity and increased weights/repetitions during group treatment. Client follows plan of care set up by Physical Therapist. Client continues to require ongoing physical therapy for graded progressive exercise training and facilitating an activity plan on difficult days for improved activity tolerance, strength, and reduction of fea r/avoidance of movement. Functional Goals and Time Frames: [...] pain education, gait training, physical performance testing FIELD TRAINING MANAGER Visit Trackin Total Visit Count: 02/05 Time Spent with Patient Therapeutic Interventions Group Therapy (min): 20 min Time Tracking Total Treatment Time (min): [address] * Rodrigo Wakefield, Ph.D., L.P., ABPP - 11/30/2024 8:00 AM CDT SUBJECTIVE CHIEF COMPLAINT/PURPOSE OF VISIT Paramjit Boyce was [facility] to the [facility] for comprehensive rehabilitation for generalized pain. HISTORY OF PRESENT ILLNESS Mr. Boyce was seen for 30 minutes. He requested to meet in the context of difficulty coping following the receipt of difficult personal news. Paramjit noted that he received difficult news regarding ongoing legal proceedings. He noted that thisupdate has diminished the hope that he had for his professional future. He shared that it was this hope that kept him moving forward in spite of other challenges including his chronic pain. Validation was provided for the legitimately difficult circumstances that he is currently navigating. Stress management in the form of problem -focused versus emotion focused coping was discussed. Inthe context of various challenges over which he does not have current control, he was recommended to focus on emotional coping for this weekend. While he stated that he no longer has hope for the future, he denied numerous times that he is experiencing suicidal ideation, plan, or intent. He was future-oriented in his plans for this weekend. He has a social event to attend with a friend this evening, as well as plans related to caring for his home. He identified at least one additional friend with whom he can connect and trust enough to share the details of his current circumstance. He predicted that self-care will be a challenge for him this weekend and acknowledged an urge to remain in bed. We talked about the implications of that in terms of worsening his mood. He was encouraged to establish structure with regard to self-care and socialization, and to engage on the basis of his plans r ather than his mood. Should suicidal ideations arise, he was encouraged to present to the emergencydepartment. He noted that socialization has been a primary benefit for his time in the [facility] program. He notes that he has had long-time exposure to cognitive behavioral therapy and mindfulness techniques prior [facility]; so these concepts are not novel to him. He stated he has made some gains toward functioning but views numerous barriers to progress, including his pain and physical needs. OBJECTIVE PHYSICAL EXAM Mental Exam: Paramjit Boyce was oriented to time, place and person. He was well dressed and grooming was good. Mood: sad. Suicidal thoughts/comments during group: absent. Affect: subdued Attention: goal focused and oriented. Behaviors: eyes averted, periodically tearful Pain Behaviors: none. ASSESSMENT / PLAN Paramjit was recommended to follow through with plans for socialization and self- care as outlined through our discussion. He denied suicidal ideation plan or intent. He was encouraged to present to the emergency department should suicidal ideations arise over the weekend. The team will follow-up with him next week. #1 Pain Generalized #2 Decline Functional Status [R53.81] #3 Chronic Pain Syndrome [G89.4] Time spent with patient (in minutes): 30 Signed by: Rodrigo Wakefield, Ph.D., L.P., ABPP 11/30/2024 4:13 PM CDT documented in this encounter Miscellaneous Notes * Group Note - Reyes Spears CNS, M.S., R.N. - 11/30/2024 8:00 AM CDT The patient attended Pain Psychology Behavioral Health Group. Number of patients in group: 16. Group facilitated by : chaplain Gaviota and TALA Davis, M.S., R.N. Topic and Goals of Group session: Spirituality Goals: Patient will discuss how the concept of spirituality relates to their own coping and journeywith chronic pain symptoms, exploring how increasing spirituality practices impact pain and daily functioning. Therapeutic interventions: Explored with patient the definition of spirituality and its correlationwith chronic symptoms. Identified ways to increase daily spiritual activity. Learning Methods Used: class/group, printed materials, small group discussion, and visual information. PHYSICAL EXAM Mental Status: Patient was attentive and engaged. Mood was calm. Affect was congruent. No self- harm ideation was endorsed. Behaviors cooperative. ASSESSMENT / PLAN Evidence of Learning/Assessment of Progress: Patient's effort to show active interest/effort to learn and generalize new skills and behaviors during this session was adequate. Arrived mid-session as he was driving his mother to the airport. Identified personal ways to increase spiritual connection/meaningful activity (finding friends who are safe and understanding of his health). Patient is making gradual progress as expected. Patient will participate in daily pain psychology and health education groups for fifteen treatment days. #1 Pain Generalized #2 Decline Functional Status [R53.81] #3 Chronic Pain Syndrome [G89.4] Time spent with patient (in minutes): 60 Signed by: TALA Davis MYuliet, R.N. 11/30/2024 10:23 AM CDT * Group Note - Gabriele Ferguson Jr., M.A., L.P.CMackenzieC. - 11/30/2024 8:00 AM CDT The patient attended Pain Psychology Behavioral Health Group. Number of patients in group: 15. Group facilitated by : Gabriele Ferguson Jr., M.A., L.P.C.CMackenzie and Magnolia Michaels RN. Topic and Goals of Group session: Gentle Yoga Goals of Intervention: Patient will participate in gentle yoga movement and breathing therapy to learn evidence-based techniques for self-management of pain symptoms. Therapeutic interventions: Gentle Yoga. Learning Methods Used: class/group and experiential practice. PHYSICAL EXAM Mental Status: Patient was attentive and engaged in discussion. Mood was calm. Affect was congruent. No self-harm ideation was endorsed. Thought process was within normal limits. Speech was linear and coherent. Behaviors were appropriately interactive with peers and cooperative with group granite countertop installer. Insight and judgment were adequate. ASSESSMENT / PLAN Evidence of Learning/Assessment of Progress: Patient's effort to show active interest/effort to learn and generalize new skills and behaviors during this session was appropriate. Paramjit was present for the first half of the yoga practice and was engaged in the movements. Will continue to participate in pain psychology and health education groups daily during participation in the three-week interdisciplinary [facility] program. #1 Pain Generalized #2 Decline Functional Status [R53.81] #3 Chronic Pain Syndrome [G89.4] Time spent with patient (in minutes): 15 Signed by: Gabriele Ferguson Jr., M.A., Pratima.P.CMackenzieCMackenzie 11/30/2024 2:13 PM CDT * Group Note - Gabriele Ferguson Jr., M.A., ReynoldPMackenzieCMackenzieC. - 11/30/2024 8:00 AM CDT The patient attended Pain Psychology Behavioral Health Group. Number of patients in group: 16. Group facilitated by : Gabriele Ferguson Jr., M.A., L.P.CBeatriz Topic and Goals of Group session: Stress Goals: Patient will understand the physiological reactions to stress. Patient will identify at least one stressor that impacts pain and daily functioning and ways to improve coping with stress. Therapeutic interventions: Discussed with patients the physiology of stress and sympathetic nervoussystem and its correlation with chronic pain symptoms. Identified ways to improve stress. Learning Methods Used: class/group, printed materials, psychologist guided discussion, and visual information. PHYSICAL EXAM Mental Status: Patient was attentive and engaged in discussion. Mood was calm. Affect was congruent. No self-harm ideation was endorsed. Thought process was within normal limits. Speech was linear and coherent. Behaviors were appropriately interactive with peers and cooperative with group granite countertop installer. Insight and judgment were adequate. ASSESSMENT / PLAN Evidence of Learning/Assessment of Progress: Patient's effort to show active interest/effort to learn and generalize new skills and behaviors during this session was variable. Paramjit appeared very distracted throughout the session, frequently keeping his head down and fidgeting with an object in hishand. Will continue to participate in pain psychology and health education groups daily during participation in the three-week interdisciplinary [facility] program. #1 Pain Generalized #2 Decline Functional Status [R53.81] #3 Chronic Pain Syndrome [G89.4] Time spent with patient (in minutes): 60 Signed by: Gabriele Ferguson Jr., M.A., Pratima.P.CMackenzieCMackenzie 11/30/2024 2:24 PM CDT * Group Note - Reyes Spears CNS, M.S., R.N. - 11/30/2024 8:00 AM CDT The patient attended Pain Psychology Behavioral Health Group. Number of patients in group: 15. Group facilitated by : TALA Davis, M.S., R.N. Topic and Goals of Group session: Autogenic Relaxation Practice Goals of Intervention: Patient will participate in passive/autogenic relaxation to learn evidence-based techniques for self-management [...] and behaviors during this session was adequate. Initially still with eyes closed, later appeared slightly distracted but sitting quietly. Patient is making gradual progress as expected within relaxation practices. Patient will participate in daily pain psychology and health education groups for fifteen treatment days. #1 Pain Generalized #2 Decline Functional Status [R53.81] #3 Chronic Pain Syndrome [G89.4] Time spent with patient (in minutes): 30 Signed by: TALA Davis, M.S., R.N. 11/30/2024 2:44 PM CDT documented in this encounter Plan of Treatment Upcoming Encounters Date Type Department Care Team (Late st Contact Info) Description 01/07/2025 1:30 PM FUEL STORAGE TECHNICIAN Telemedicine Department of Urology in [place], [place] [address] [place] [phone] Danielle Pitt D.O. [address] [place] [phone] documented as of this encounter Visit Diagnoses Diagnosis Pain Generalized- Primary Decline Functional Status [R53.81] Chronic Pain Syndrome [G89.4] documented in this encounter Additional Health Concerns Assessment Noted Time PHQ-9 Depression Total Score: 5 07/07/19 24 9:17 PM CDT documented as of this encounter Care Teams Power Generation Engineer Relationship Specialty Start Date End Date Elsewhere, Pcp PCP - General Internal Medicine 05/22/18 documented as of this encounter
--- OUTSIDE RECORDS SUMMARY | 2024-11-30 15:00 | XMS_ITS | Encounter Summary ---
Author Organization [facility] Address [address] [place] [address] Care Team Providers Care Manager Data Name Role Phone Elsewhere, Pcp Primary Care Provider Unavailabl e Reason for Visit * Physical Therapy (Routine) - Closed Specialty Diagnoses / Procedures Referred By Ye lund Referred To Contact Diagnoses Pain Wrist Right Procedures PT or OT eval and treat (first available) Emiliana Rouse M.D. [address] [place] [address] Phone: tel: fax: [facility] Referral ID Status Reason Start Date Expiration Date Visits Re quested Visits Authorized [id number] Closed 11/28/2024 02/28/2026 1 1 Encounter Details Date Type Department Care Team (Latest Contact Info) Description 11/30/2024 4:00 PM CDT Comprehensive Visit Department of Physical Medicine and Rehabilitation in [place], [place] [address] [place] [phone] Emiliana Rouse M.D. [address] [place] [phone] María Bernstein C.H.T., O.T. 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 - 11/30/2024 4:00 PM CDT Order received and chart reviewed. Paramjit presented to the [facility] today for his right hand. Reviewed outside records which indicate a cast was place on his right wrist/hand on 11/13/24 to be left in place for 3 weeks time due to a 5th metacarpal sprain. Due to pain and sensory changes at his thumb he removed his cast himself on 11/17/24. Today he notes that his sensation in his thumb is improving, still not at baseline. He is scheduled for a follow up at the outside medical center who evaluated his hand injury on 12/05/24. Recommend today that he follow up with that provider for further recommendations regarding his hand. He shares that he was hopeful that a forearm to finger tip delta cast could be fabricated for protection of his hand in case he falls. I did offer an over the counter wrist brace today for the patient with a delta ryan cloth sleeve for comfort but he declined this. He also shares that he is seeing an OT locally for wrist and hand strengthening. I did reach out to Dr. Rouse via inbasket for a specific order for a forearm to finger tip delta cast for protection in case the patient falls. In brief review of the [facility] therapy notes it appears the patient is making good gains in physical activity-completing 7# bicep strengthening and shoulder strengthening with green theraband. María Bernstein C.H.T., O.T. documented in this encounter Plan of Treatment Upcoming Encounters Date Type Department Care Team (Late st Contact Info) Description 01/07/2025 1:30 PM MAINSPRING TORQUE TESTER Telemedicine Department of Urology in [place], [place] [address] [place] [phone] Danielle Pitt D.O. [address] [place] [phone] documented as of this encounter Visit Diagnoses Diagnosis Pain Wrist Right- Primary documented in this encounter Additional Health Concerns Assessment Noted Time PHQ-9 Depression Total Score: 5 07/07/19 24 9:17 PM CDT documented as of this encounter Care Teams Manager Data Relationship Specialty Start Date End Date Elsewhere, Pcp PCP - General Internal Medicine 05/22/18 documented as of this encounter
--- OUTSIDE RECORDS SUMMARY | 2024-12-03 07:00 | XMS_ITS | Encounter Summary ---
Author Organization [facility] Address [address] [place] [id number] Care Team Providers Care Account Services Associate Name Role Phone Elsewhere, Pcp Primary Care Provider Unavailabl e Reason for Visit * Behavioral Health (Routine) - Authorized Specialty Diagnoses / Procedures Referred By Contact Referred To Contact Psychiatry / Pain Rehabilitation Center Diagnoses Chronic Pain Syndrome Procedures Pain Rehabilitation [facility] Programs AR GROUP THERAPY AR HLTH BHV IVNTJ GRP 1ST 30 AR HLTH BHV IVNTJ GRP EA ADDL 15 AR HOME MGMT TRAIN EA 15MIN PT AR PSY TST INTERP & FEEDBACK INIT HR Hamilton Beebe, Ph.D., L.P. [address] [place] [phone] Phone: tel:[phone] fax:[phone] [place] Referral ID Status Reason Start Date Expiration Date V isits Requested Visits Authorized [id number] Authorized 10/10/2024 02/06/2025 17 17 Encounter Details Date Type Department Care Team (Latest Contact Info) Description 12/03/2024 8:00 AM CDT Clinical Support [facility] in [place], [place] [address] [place] [phone] Hamilton Beebe, Ph.D., L.P. 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 I have a [facility] place to live 05/29/2024 Education Answer Date Recorded What is the highest level of school you have completed or the highest degree you have received? 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 - 12/03/2024 8:00 AM CDT Physical Therapy Pain Rehabilitation Program Progress Note SUBJECTIVE Patient's Name: Paramjit Boyce Reason for Referral/Referring Provider: Reason for Referral: OT/PT for Pain Rehabilitation Program.Referred by Kristi Sommer APRN, TALA, M.S. Medical Diagnosis: 1. Pain Generalized 2. Decline Functional Status [R53.81] No data recorded Payor: [place] CARE / Plan: [employer] HMO / Product Type: Medicaid HMO / [...] after PRC programming: Aerobic Exercise: Client performed 10 minutes on the NuStep. Vitals and perceived exertion scale monitored throughout (Heart rate range 106 - 160 bpm). Strength Exercise: Client completed full body exercise routine as outlined at initial setup of exercise with modifications/progressions as follows: continues to increase reps for body weight exercises. Flexibility Exercise: Client performed whole-body active range of motion and sustained stretching exercises for muscle, neural, joint flexibility, management of spasms/cramps and/or pain. Balance Exercise: Client performed balance challenges with this therapist providing supervision forsafety. Client advised to utilize hand support as needed. Client performed the following: single leg balance with anterior, lateral, and posterior reaches and/or VOR gaze stabilization with head nods, rotation, and with eyes open/closed in modified tandem stance. Assessment Clinical Impression: Client returned for physical therapy as part of their [facility] programming and fully participated. Client put forth appropriate effort, was able to increase aerobic conditioning time as recommended, interacted appropriately with questions and discussion. Client continues to require ongoing physical therapy for graded progressive exercise training and facilitating an activity plan on difficult days forimproved activity tolerance, strength, and reduction of fear/avoidance [...] facilitate engagement in the community and workplace.: PROGRESSING : Using NuStep for aerobic challenge exercise, increased time to 10 minutes PT Goal #3: Client will understand exercise guidelines and demonstrate independence with all exercises performed while in the Pain Rehabilitation Program by dismissal, to facilitate well-being and assist with self-management of chronic condition. PROGRESSING: Paramijt used written instructions to guide his performance of exercises, and logged his progress. PT Goal #4: Client will report >2 point average improvement on the Patient Specific Functional Scale to demonstrate meaningful improvements in their perceived function. Plan Treatment Plan: Future sessions will incorporate graded progression in repetitions and/or weight for each exercise as appropriate, increased duration of aerobic training with reinforcement of moderate perceived exertion, and balance training. Treatment interventions may include: Group therapy, home management training, therapeutic activity, therapeutic exercise, neuromuscular re-education, neuroscience pain education, gait training, physical performance testing Total Visit Count: Time Spent with Patient Therapeutic Interventions Group Therapy (min): 60 min Time Tracking Total Treatment Time (min): 60 min Jak Laurent P.T. documented in this encounter Miscellaneous Notes * Group Note - Reyes Spears, TALA, M.S., R.N. - 12/03/2024 8:00 AM CDT The patient attended Pain Psychology Behavioral Health Group. Number of patients in group: 15. Group facilitated by : Candida Lora RN and TALA Davis, M.S., R.N. Topic and Goals of Group session: Gentle Yoga Goals of Intervention: Patient will participate in gentle yoga movement to learn evidence-based techniques for self-management of pain symptoms. Therapeutic interventions: guided gentle yoga instruction. Learning Methods Used: class/group and experiential practice. [...] some of the movements in today's gentle yoga practice. Engaged appropriately. Patient is making gradual progress as expected within movement groups. Patient will participate in daily pain psychology and healtheducation groups for fifteen treatment days. #1 Pain Generalized #2 Decline Functional Status [R53.81] Time spent with patient (in minutes): 30 Signed by: TALA Davis, M.S., R.N. 12/03/2024 11:16 AM CDT * Group Note - Gabriele Ferguson Jr., M.A., L.P.C.C. - 12/03/2024 8:00 AM CDT The patient attended Pain Psychology Behavioral Health Group. Number of patients in group: 15. Group facilitated by : Gabriele Ferguson Jr. MSally, L.P.C.C. Topic and Goals of Group session: Assertiveness Goals: Patient will articulate the difference between passive, assertive, and aggressive communication and identify ways to increase assertive communication. Therapeutic interventions: identification of different styles of communication as well as practicing healthy assertive communication techniques (example: I feel statements). Learning Methods Used: class/group, experiential practice, printed materials, psychologist guided discussion, small group discussion, and visual information. PHYSICAL EXAM Mental Status: Patient was attentive and engaged in discussion. Mood was calm. Affect was congruent. No self-harm ideation was endorsed. Thought process was within normal limits. Speech was linear and coherent. Behaviors were appropriately interactive with peers and cooperative with group tech writer. Insight and judgment were adequate. ASSESSMENT / PLAN Evidence of Learning/Assessment of Progress: Patient's effort to show active interest/effort to learn and generalize new skills and behaviors during this session was fair. Paramjit appeared intermittently preoccupied during the large group discussion. He was quite active in the small group discussion with his peers when talking about healthy communication and assertiveness. Will continue to participate in pain psychology and health education groups daily during participation in the three-week interdisciplinary Pain Rehabilitation Center program. Progressing in PRC programming as expected. #1 Pain Generalized #2 Decline Functional Status [R53.81] Time spent with patient (in minutes): 60 Signed by: Gabriele Ferguson Jr., M.A., L.P.CBeatriz 12/03/2024 1:12 PM CDT Electronically signed by Gabriele Ferguson Jr., M.A., L.PMackenzieCMackenzieCMackenzie at 12/03/2024 1:27 PM CDT * Group Note - Gabriele Ferguson Jr., M.A., ReynoldPMackenzieCBeatriz - 12/03/2024 8:00 AM CDT The patient attended Pain Psychology Behavioral Health Group. Number of patients in group: 15. Group facilitated by : Gabriele Ferguson Jr., M.A., ReynoldPMackenzieCMackenzieCMackenzie Topic and Goals of Group session: Passive [...] interactive with peers and cooperative with group tech writer. Insight and judgment were adequate. ASSESSMENT / PLAN Evidence of Learning/Assessment of Progress: Patient's effort to show active interest/effort to learn and generalize new skills and behaviors during this session was good. He was appropriately engaged in the relaxation practice. Will continue to participate in pain psychology and health education groups daily during participation in the three-week interdisciplinary [facility] program. Progressing in PRC programming as expected. #1 Pain Generalized #2 Decline Functional Status [R53.81] Time spent with patient (in minutes): 30 Signed by: Gabriele Ferguson Jr., M.A., L.P.C.CMackenzie 12/03/2024 2:32 PM CDT * Group Note - Reyes Spears CNS, M.S., R.N. - 12/03/2024 8:00 AM CDT The patient attended Pain Psychology Behavioral Health Group. Number of patients in group: 15. Group facilitated by : TALA Davis, M.S., R.N. Topic and Goals of Group session: Pharmacological Interventions Goals: Patient will engaged in discussion about analgesics and other medications and their use withchronic pain. Therapeutic interventions: Guided discussion about analgesics and other medications and their use with chronic pain (including lack of long-term efficacy and side effects). Learning Methods Used: class/group, printed materials, small group discussion, and visual information. PHYSICAL EXAM Mental Status: Patient was attentive and engaged. Mood was calm. Affect was congruent. No self- harm ideation was endorsed. Behaviors cooperative. ASSESSMENT / PLAN Evidence of Learning/Assessment of Progress: Patient's effort to show active interest and generalize new skills and behaviors during this session was good. More attentive and engaged today, offering a general positive comment in support of discussion (yet nothing applying to himself). Referring to the handout. Taking notes. Patient is making incremental progress in groups as expected. Patient will participate in daily pain psychology and health education groups for fifteen treatment days. #1 Pain Generalized #2 Decline Functional Status [R53.81] Time spent with patient (in minutes): 60 Signed by: TALA Davis, M.S., R.N. 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 [address] [place] [phone] documented as of this encounter Visit Diagnoses Diagnosis Pain Generalized- Primary Decline Functional Status [R53.81] documented in this encounter Additional Health Concerns Assessment Noted Time PHQ-9 Depression Total Score: 5 07/07/19 24 9:17 PM CDT documented as of this encounter Care Teams Account Services Associate Relationship Specialty Start Date End Date Elsewhere, Pcp PCP - General Internal Medicine 05/22/18 documented as of this encounter
--- OUTSIDE RECORDS SUMMARY | 2024-12-04 07:00 | XMS_ITS | Encounter Summary ---
Author Organization [facility] Address [address] [place] [address] Care Team Providers Care Senior Geotechnical Engineer Name Role Phone Elsewhere, Pcp Primary Care Provider Unavailabl e Reason for Referral * Behavioral Health (Routine) - Closed Specialty Diagnoses / Procedures Referred By Contac t Referred To Contact Psychiatry / Psychiatry and Psychology Diagnoses Pain Generalized Kristi Sommer APRN, TALA, M.S. 200 [place] [address] Phone: tel: fax: [facility] Referral ID Status Reason Start Date Expiration Date V isits Requested Visits Authorized [id number] Closed Specialty Services Required 12/04/2024 06/05/2026 1 1 * Behavioral Health (Routine) - Closed Specialty Diagnoses / Procedures Referred By Ye lund Referred To Contact Psychology / Psychiatry and Psychology Diagnoses Fibromyalgia Procedures PSY Neuropsychology testing - Vocational Kristi Sommer APRN, TALA, M.S. [address] [place] [address] Phone: tel: fax: [facility] Referral ID Status Reason Start Date Expiration Date Visits Re quested Visits Authorized [id number] Closed 12/04/2024 03/06/2026 1 1 Reason for Visit * Behavioral Health (Routine) - Authorized Specialty Diagnoses / Procedures Referred By Contact Referred To Contact Psychiatry / [facility] Rehabilitation Center Diagnoses Chronic Pain Syndrome Procedures Pain Rehabilitation [facility] Programs AK GROUP THERAPY AK HLTH BHV IVNTJ GRP 1ST 30 AK HLTH BHV IVNTJ GRP EA ADDL 15 AK HOME MGMT TRAIN EA 15MIN PT AK PSY TST INTERP & FEEDBACK INIT HR Hamilton Beebe, Ph.D., L.P. [address] [place] [phone] Phone: tel:[phone] fax:[phone] [facility] Referral ID Status Reason Start Date Expiration Date V isits Requested Visits Authorized [id number] Authorized 10/10/2024 02/06/2025 17 17 Encounter Details Date Type Department Care Team (Latest Contact Info) Description 12/04/2024 8:00 AM CDT Clinical Support [facility] in [place], [place] [address] [place] [phone] Hamilton Beebe, Ph.D., L.P. 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 - 12/04/2024 8:00 AM CDT Client absent from programming. * Emiliana Rouse M.D. - 12/04/2024 8:00 AM CDT SUBJECTIVE CHIEF COMPLAINT/REASON FOR VISIT Diffuse arthralgia. HISTORY OF PRESENT ILLNESS The patient is involved in rehabilitation and is making progress towards his goals. He is noting improvements in overall functionality. He clearly identifies various physicians who have been helpful to him including Dr. Guerra who is a family medicine physician and Dr. Van who is an orthopedic surgeon working in the [facility]. Dr. Van has previously performed ankle surgery. OBJECTIVE Allergies Allergen Reactions Dog Dander Itching House Dust Itching Medications Ordered Prior to Encounter[1] PHYSICAL EXAMINATION General: No apparent distress. Mental Status : Fully oriented and alert. Mood is euthymic. Affect is congruent. Neurological: Baseline. Musculoskeletal: Baseline. Gait: Nonantalgic. ASSESSMENT / PLAN #1 Arthralgia PLAN: Interdisciplinary rehabilitation: As noted, he is making good progress and is planning for dismissal. Coordination of care: I will contact both Drs. Guerra and Rehan to coordinate ongoing musculoskeletal pain care for the future. It was a pleasure talking to Mr. Boyce today during interdisciplinary group rounds. Emiliana Rouse M.D. CT CT Job ID: [id number] [1] Current Outpatient Medications on File Prior [...] 3 (three) times a day as needed. methylphenidate HCl (Metadate ER) 10 mg ER tablet Take 1 Tablet (10 mg) by mouth once daily. For 3 days, if tolerating well increase to 2 tablets by mouth once daily in the morning 30 tablet 0 metoclopramide (Reglan) 5 mg tablet Take 5 [...] facility-administered medications on file prior to visit. documented in this encounter Miscellaneous Notes * Group Note - Reyes Spears CNS MMackenzieS., R.N. - 12/04/2024 8:00 AM CDT The patient attended Pain Psychology Behavioral Health Group. Number of patients in group: 16. Group facilitated by : TALA Davis, M.S., R.N. Topic and Goals of Group session: CBT-5 Goals: Patient will identify the connection between an activating event, belief, and emotional/physical/behavioral consequences and how to dispute negative beliefs. Therapeutic interventions: Exploration of personal examples of cognitive errors and emotional reactions and how to dispute these thoughts and cognitive re-framing. Learning Methods Used: class/group, experiential practice, printed [...] behaviors during this session was adequate. Arrived late due to rounds, interactive with others at his table but was not observed beginning any thought records. Patient is making gradual progress within CBT groups as anticipated. Patient will participate in daily pain psychology and health education groups for fifteen treatment days. #1 Pain Generalized #2 Decline Functional Status [R53.81] Time spent with patient (in minutes): 45 Signed by: TALA Davis M.SMackenzie, R.N. 12/04/2024 12:06 PM CDT * Group Note - Reyes Spears CNS M.S., R.N. - 12/04/2024 8:00 AM CDT The patient attended Pain [...] behaviors during this session was satisfactory. Following the movements in today's gentle roxana chi practice. Modifying appropriately along with the guided movements. Patient is making gradual progress as expected within movement groups. Patient will participate in daily pain psychology and health education groups for fifteen treatment days. #1 Pain Generalized #2 Decline Functional Status [R53.81] Time spent with patient (in minutes): 30 Signed by: TALA Davis, M.S., R.N. 12/04/2024 12:34 PM CDT * Group Note - Reyes Spears CNS, M.S., R.N. - 12/04/2024 8:00 AM CDT The patient attended Pain Psychology Behavioral Health Group. Number of patients in group: 16. Group facilitated by : TALA Davis, M.S., R.N. Topic and Goals of Group session: Difficult Day Planning Goals: Patient will be able to distinguish the difference between managing an acute pain problem and a flare-up of chronic pain. Patient will complete a difficult day plan. Therapeutic interventions: Explored with patients ways to differentiate between a flare-up of chronic pain versus new acute problem. Discussed identification of red flags leading to a difficult day and encouragement to personalize a difficult day plan. Learning Methods Used: class/group, printed materials, small group discussion, and visual information. PHYSICAL EXAM Mental Status: Patient was attentive and engaged. Mood was calm. Affect was congruent. No self- harm ideation was endorsed. Behaviors cooperative. ASSESSMENT / PLAN Evidence of Learning/Assessment of Progress: Patient's effort to show active interest/effort to learn and generalize new skills and behaviors during this session was good. Present only part of the group. Appeared generally receptive to ideas about managing a difficult day differently. Patient is making gradual progress in groups as expected. Patient will participate in daily pain psychology and health education groups for fifteen treatment days. #1 Pain Generalized #2 Decline Functional Status [R53.81] #3 Fibromyalgia Time spent with patient (in minutes): 30 Signed by: TALA Davis, M.S., R.N. 12/04/2024 3:01 PM CDT * Group Note - Daysi Hoskins O.Brandin. - 12/04/2024 8:00 AM CDT Occupational Therapy Pain Rehabilitation Program Outpatient Progress Note SUBJECTIVE Patient's Name: Paramjit Boyce Preferred Name: Paramjit Reason for Referral/Referring Provider: Reason for Referral: OT/PT for Pain Rehabilitation Program.Referred by Kristi Sommer APRN, CNS, M.S. Medical Diagnosis: 1. Pain Generalized 2. Decline Functional Status [R53.81] 3. Fibromyalgia Onset Date/Date OT Ordered: No data recorded Client Goals: Refer to personal goals established in COPM during initial evaluation. OBJECTIVE Pain: As documented by nursing in medical record. TREATMENT Group treatment: Group Attendance: Attended and was prompt for Occupational Therapy programming Group Session Attendance: 8 Group Participation: Patient was active and participatory. Values Group: Client's identity confirmed and client attended group on values. OT provided instruction in identifying, prioritizing, and applying personal values. The client actively participated in a group activity, facilitated by the OT, to identify and prioritize values based on public persona and behavior of the individual. Instruction progressed to apply concepts to a values-based approach to personal goal setting and prioritization in daily occupations. The client actively participated inidentifying their personal values and the barriers that hinder follow through on values-based actions in habits, roles, and routines. Group discussion included education, goal setting, and problem-octavio ving strategies to re-align actions with personal values. OT provided feedback and further instruction on potential action steps to support progress toward the client's personal goals. Assessment Clinical Impression: Response to Instruction: Client verbally demonstrated understanding Progress Toward Goals: Is compliant with education provided Pain Response During Activities: Client demonstrated no pain behavior with activities Group Interactions Observations: Client asked appropriate questions and contributed to group discussion Values Clinical Impression: The client was receptive to education concepts as evidenced by asking questions, verbalizing application of concepts to daily occupations, and actively engaging in activities. Client demonstrates emerging insight into importance [...] achieve Occupational Therapy goals. Total Visit Count: Treatment interventions may include: Group therapy, home management training, neuromuscular re-education, biofeedback training, cognitive skills training, community/work reintegration Time Spent with Patient Therapeutic Interventions Group Therapy (min): 60 min Time Tracking Total Treatment Time (min): 60 min Daysi Hoskins O.T. documented in this encounter Plan of Treatment Upcoming Encounters Date Type Department Care Team (Late st Contact Info) Description 01/07/2025 1:30 PM YIELD CLERK Telemedicine Department of Urology in [place], [place] [address] [place] [phone] Danielle Pitt D.O. [address] [place] [phone] Scheduled Referrals Name Type Priority Associated Diagnoses Orde r Schedule Psychiatry and Psychology - General consult (clinic) Outpatient Referral Routine Pain Generalized Expected: 12/04/2024 (Approximate), Expires: 03/06/2026 documented as of this encounter Visit Diagnoses Diagnosis Pain Generalized- Primary Decline Functional Status [R53.81] Fibromyalgia documented in this encounter Additional Health Concerns Assessment Noted Time PHQ-9 Depression Total Score: 5 07/07/19 24 9:17 PM CDT documented as of this encounter Care Teams Senior Geotechnical Engineer Relationship Specialty Start Date End Date Elsewhere, Pcp PCP - General Internal Medicine 05/22/18 documented as of this encounter
--- OUTSIDE RECORDS SUMMARY | 2024-12-04 14:40 | XMS_ITS | Encounter Summary ---
Author Organization [facility] Address [address] [address] Care Team Providers Care Clinical Applications Specialist Name Role Phone Eliana Guerra MD Primary Care Provider [phone] Reason for Visit * Reason Comments INJURY, ANKLE Repair dislocation p eroneal tendons with fibular groove deepening and longus to brevis tenodesis, lengthening gastrocnemius, excision exostosis Right ankle 04/27/2024 Encounter Details Date Type Department Care Team (Latest Contact Info) Description 12/04/2024 3:40 PM CDT Office Visit Orthopedics at [address] [address] Anahi Van MD [address] [place] [id number] Subluxation of peroneal tendon of left foot (Primary Dx) Social History Tobacco Use Types Packs/Day Years Used Date Smoking Tobacco: Never Smokeless Tobacco: Never Alcohol Use Standard Drinks/Week Comments Yes 0 (1 standard drink = 0.6 oz pur e alcohol) occasional C Utilities Answer Date Recorded In the past [...] any time in the past 12 [address] [facility] [place], were you homeless or living in a custodial (including now)? 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 Gender Identity Not on file Sexual Orientation Not on file documented as of this encounter Patient Instructions * Patient Instructions* Virgil Szymanski, FILM PAINTER - 12/04/2024 3:40 PM CDT ORTHOPEDICS DEPARTMENT PHONE NUMBER: [phone] Reason for today's visit: INJURY, ANKLE (Repair dislocation peroneal tendons with fibular groove deepening and longus to brevis tenodesis, lengthening gastrocnemius, excision exostosis Right ankle 04/27/2024) Treatment plan: weight bearing as tolerated in new cast Follow up with [facility] for AFO repair/adjustment Once AFO repaired transition out of cast to brace - this should be able to be done by the folks at [facility], but if any issue can be removed here Cast Care: Here are a few tips to making the next few weeks with your cast a little more comfortable. Keep Your Cast Dry Do not get water in your cast. A wet cast will cause your skin to macerate. This can cause a sore on your skin under the cast and can be very uncomfortable. Plastic bags and food wrap, such as Saran Wrap, are good coverings to use in wet weather. To keep your cast dry in the shower a garbage bag with duck tape can work or you can purchase reusable cast covers at your pharmacy. Keep Your Cast Clean If your cast becomes soiled, clean it with a damp cloth or baby wipe. Never trim or cut down the length of your cast. Contact the Orthopedic Clinic or your doctor if youhave questions or concerns about your cast. Skin Care Every day, wash your skin (fingers and toes) near the cast edges with a damp cloth. Soap may be used in small amounts, but rinse it off so your skin does not become sore. Baby powder can be applied sparingly to your skin; never shake the powder down your cast. Do not use anything to scratch under your cast (especially if you have an incision), since it can break open your skin and cause infection. Keep foreign objects, such as sand, coat hangers, pens, or pencils out of your cast, as skin sores can easily occur. Do not push anything under the edges of your cast to pad it. If you have rough edges on your cast, a nail file can be used to smooth it out. If you have any of the following problems, contact your physician: *Your cast is so tight that your fingers or toes become cool and pale. *You have pain, numbness or constant tingling of your toes or fingers. *You have painful rubbing or burning inside the cast. *You notice a strange odor or drainage in your cast. *Your cast becomes loose broken or cracked. Always remember after an injury rest, ice, compression (which your cast is doing for you) and elevation are keys to helping your swelling go down and your injury start to heal. Your pain will minimize when your swelling dissipates. Putting the injury above the heart is the best way to elevate. After the cast is applied: For the first 8 hours, keep your cast on a soft surface, like a pillow to avoid denting. A dent in your cast could cause a pressure area on your skin. Do not step on a walking cast until 24 hours after it has been put on. It is common for the color of your fingers or toes to become dusky or darker if below your heart level. This should go away after a few minutes by simply putting your limb up. Move the fingers or toes on your casted limb at least every hour. Straighten them out. DO NOT JUST WIGGLE THEM. If you have a decrease in motion or increased pain with movement (not relieved by pain pills), notify your doctor. Avoid resting your heel or elbow on hard surfaces. Numbness, tingling or sore spots, can develop from constant pressure. If swelling occurs after activity, raise the casted limb above your heart level. Follow up appointments: You will follow up with Anahi Van MD on Jan 22 at 1000 or 1040 At follow up: 5 views weight bearing bilateral feet/ankles If you have an urgent question or concern for your provider and it is after 5pm, on a weekend, or aholiday you can call the nurse care line at [phone]. If you need information about the cost of care you received today, or about an upcoming visit or surgery please call the cost of care line at [phone]. If you need forms completed for work, short term/fdc disability, FMLA, or school: Please bring any forms to our clinic at [address] [place] [address] as soon as you receive them. It is recommended to bring these forms to the clinic prior to surgery and not on the to the hospital on the day of surgery. You may give these forms to our 3rd floor check-in staff You can also fax them to us at , Attention: Pan Operator, Fax- [phone] Be sure to complete the patient portion [...] will need to sign a form authorizing [facility] to release this information. For additional questions regarding forms, or if you need a letter for work/school, please contact the clinic at [phone] If you have any questions about your visit, your symptoms, your medication, your test results or itis not clear what your diagnosis or treatment plan is please contact us at [phone] or send us a secure message via [employer]. You may receive a survey in the mail regarding your visit today. Your feedback is very important tous, please take a moment to complete the survey which is completely anonymous. If you would like tospeak to someone specifically, you may contact the clinic at [phone] and your call will be directed to someone on our leadership team. Thank you for choosing Anahi Van MD and [facility]. documented in this encounter Progress Notes * Anahi Van MD - 12/04/2024 3:40 PM CDT Date of Surgery: 04/27/2024 Pre-Operative Diagnosis: Peroneal tendinitis of right lower extremity Fibular avulsion fracture with subfibular ossicle Subluxation of the peroneal tendons equinus Procedure: Repair dislocation peroneal tendons with fibular groove deepening and longus to brevis tenodesis (Right) LENGTHENING GASTROCNEMIUS (Right) EXCISION EXOSTOSIS ANKLE (Right) Interim History: Paramjit Boyce is a 24 y.o. male who is now 8 month(s) out from his surgery. At the last visit, the plan was for him to be in a left sided walking cast for a month and then transition to profiler hand AFO for a month and then consider transition into a regular shoe without brace. This was due to recent inversion and tendon subluxation event. He notes there has been a delay in the AFO transition due to his AFO needing adjustment. He would like to return to a cast until his AFO is ready. He is doing relatively well. Patient does endorse some concerns regarding his cast. He does feel the sensation as if the ankle is still moving within the cast and does have concern that there may be some movement of the peroneal tendons within the cast. He denies any new trauma or pain in the left lower extremity. Patient also endorses a desire to discuss flatfoot fusion procedures. He reports that this had previously been discussed at prior visits but was not interested at the time given concern for the restriction that this may have been applied. Given that now he has spent several weeks in a lower leg cast, with immobilization of the involved joints, he feels that a fusion procedure would not drastically limit him. Physical Exam: Skin: Patient has a healing irritation along the lateral aspect of the distal femur in the vicinityof where the tip of the cast likely rubs against the skin. Patient also has a pressure area over the dorsal lateral aspect of the 5th metatarsal head. This lesion is pre ulcerative. Neurovascular Exam: Distal sensation intact along the superficial peroneal, deep peroneal, sural, saphenous, and tibial nerve distributions. Range of Motion: not tested No alison subluxation of the peroneals noted with gentle hindfoot range of motion Impression: 8 month(s) out from RIGHT sided surgery doing well Recent LEFT peroneal subluxation event - doing well at present Plan: 20 degree long leg cast applied after robust discussion about immobilization alternatives. PTB castwas causing rubbing and he has not felt adequately immbobilized in a short leg cast previously. He does report a history of being able to bear weight in a long leg cast. We will plan for cast removal at fitting of his AFO Follow up 01/22/25 The patient is happy with this plan and all questions are answered today. Thank you, Khoi Arambula MD Dept of Orthopaedic Surgery PGY4 Pager: [phone] I saw and evaluated Paramjit Boyce. I agree with the findings and plan of care as documented in the resident note above. I have personally reviewed labs and imaging. 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 [address] Anahi Van MD [address] [place] [id number] documented as of this encounter Visit Diagnoses Diagnosis Subluxation of peroneal tendon of left foot- Primary documented in this encounter Care Teams Clinical Applications Specialist Relationship Specialty Start Date End Date Eliana Guerra MD [address] [place] [address] PCP - General Family Practice 12/04/19 documented as of this encounter
--- OUTSIDE RECORDS SUMMARY | 2024-12-05 07:00 | XMS_ITS | Encounter Summary ---
Author Organization [facility] Address [address] [place] [id number] Care Team Providers Care Tanning Wheel Operator Name Role Phone Elsewhere, Pcp Primary Care Provider Unavailabl e Reason for Visit * Behavioral Health (Routine) - Authorized Specialty Diagnoses / Procedures Referred By Contact Referred To Contact Psychiatry / [facility] Rehabilitation Center Diagnoses Chronic Pain Syndrome Procedures [facility] Programs ID GROUP THERAPY ID HLTH BHV [id number] GRP 1ST 30 ID HLTH BHV IVNTJ GRP EA ADDL 15 ID HOME MGMT TRAIN EA 15MIN PT ID PSY TST INTERP & FEEDBACK INIT HR Hamilton Beebe, Ph.D., L.P. [address] [place] [phone] Phone: tel:[phone] fax:[phone] [place] Referral ID Status Reason Start Date Expiration Date V isits Requested Visits Authorized [id number] Authorized 10/10/2024 02/06/2025 17 17 Encounter Details Date Type Department Care Team (Latest Contact Info) Description 12/05/2024 8:00 AM CDT Clinical Support [facility] in [place], [place] [address] [place] [phone] Hamilton Beebe, Ph.D., L.P. 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 - 12/05/2024 8:00 AM CDT Biofeedback [facility] Occupational Therapy Biofeedback Pain Rehabilitation Program Outpatient Progress Note SUBJECTIVE Patient's Name: Paramjit Boyce Preferred Name: Paramjit Reason for Referral/Referring Provider: Reason for Referral: OT/PT for Pain Rehabilitation Program.Referred by Kristi Sommer APRN, SEALER OPERATOR, M.S. Occupational Therapy biofeedback assisted relaxation evaluation and treatment as a part of the occupational therapy plan of care during the outpatient [facility] program. Medical Diagnosis: 1. Pain Generalized 2. Decline Functional Status [R53.81] Onset Date/Date OT Ordered: No data recorded Patient Comments: Client reports good progress with use of diaphragmatic breathing and muscle relaxation and reportedly has begun incorporating them into daily activities. Client Goals: Refer to personal goals established in [facility] during initial evaluation. OBJECTIVE Biofeedback Treatment Biofeedback Participation: Final biofeedback session Inital/Resting - Right Upper Trapezius (??V): .73 Inital/Resting - Left Upper Trapezius (??V): .91 Inital/Resting - Respiration Rate (bpm): 11.57 10 - Point Level of Ability Questionnaire (LAQ-10): Please rate your ability to use diaphragmatic breathing to improve your performance of daily activities: 7 Please rate your ability to use muscle relaxation to improve your performance of daily activities: 8. TREATMENT Initially allowed time for client to practice relaxation concepts while sitting at rest. The post assessment protocol was completed and results were discussed with client. Time was spent discussing importance of continued practice at rest and also during activities of daily living despite the stress level of the task. OT facilitated collaborative exploration and planning for client's activity plan for post-discharge from occupational therapy for biofeedback and helped problem solve how to incorporate skills into identified activities. Client was instructed on potential home training devices. Occupational therapy handouts provided this session: Biofeedback Home training; Diaphragmatic Breathing and Relaxation Resources (in-session handout). Assessment Client was able to show good improvement in diaphragmatic breathing quality and respiratory rate when compared to performance in the first session as evidenced by reducing the average respiratory rate from 24.65 to 11.57 and slowing of the respiration rate, reduced accessory muscle pattern during respirations, and improved ability to sustain good quality diaphragmatic breathing over time. Client was also able to show consistent ability to manage shoulder tensions and volitionally achieving a relaxed state in the shoulders. Overall client declined information regarding home training devices. Overall client appears to have appropriate understanding of the concepts and is appropriately motivated to continue working on them independently. Client has found success in incorporating diaphragmatic breathing and muscle relaxation into daily tasks. Client had no further questions. Goals: 1. Client will utilize proper body [...] which incorporates program principles by dismissal. Plan No further biofeedback necessary. Will continue with treatment plan to achieve Occupational Therapy goals. Total Visit Count: Treatment interventions may include: Group therapy, home management training, neuromuscular re-education, biofeedback training, cognitive skills training, community/work reintegration Time Spent with Patient Therapeutic Interventions Home Management Training (min): 13 min Neuromuscular Re-Education (min): 10 min Time Tracking Total Timed Units (min): 23 min Total Treatment Time (min): 23 min Magui Tran O.T. * Jasper Sheldon P.T.A. - 12/05/2024 8:00 AM CDT Physical Therapy Pain Rehabilitation Program Progress Note SUBJECTIVE Patient's Name: Paramjit Boyce Reason for Referral/Referring Provider: Reason for Referral: OT/PT for Pain Rehabilitation Program.Referred by Kristi Sommer APRN, SEALER OPERATOR, M.S. Medical Diagnosis: 1. Pain Generalized 2. Decline Functional Status [R53.81] 3. Chronic Pain Syndrome [G89.4] No data recorded Payor: [facility] / Plan: [facility] HMO / Product Type: Medicaid [...] today consisted of: Group Therapy: Client attended shortened scheduled physical therapy session due to biofeedback with this therapistproviding supervision of each exercise to ensure appropriate understanding and technique. Client completed the following with this therapist providing verbal, tactile, and visual cueing to enhance form and improve client carry through and confidence once client returns home after PRC programming: Strength Exercise: Client partial completed full body exercise routine as outlined at initial setupof exercise with modifications/progressions as follows: Increased weight. Client benefited from verbal and visual cueing for technique? Flexibility Exercise: Client performed whole-body active range of motion and sustained stretching exercises for muscle, neural, joint flexibility, management of spasms/cramps and/or pain. Balance Exercise: Client performed balance challenges with this therapist providing supervision forsafety. Client advised to utilize hand support as needed. Client performed the following: single leg balance with anterior, lateral, and posterior reaches left lower extremity only and VOR gaze stabil ization with head nods, rotation, and with eyes open/closed in modified tandem stance. Assessment Clinical Impression: Client returned for shortened physical therapy session due to biofeedback as part of their PRC programming and fully participated and was receptive to education with hesitancy. Client tolerated exercise well, was able to increase weight or repetitions as recommended, required occasional 1:1 assistance to perform exercises correctly, exhibited few pain behaviors during exercise, was agreeable to perform exercises related to the site of pain. Client is demonstrating progress towards PT and/or personal goals, specifically increased weight. Client continues to require ongoing physical therapy forgraded progressive exercise training and facilitating an activity [...] pain education, gait training, physical performance testing CONTENT SPECIALIST Visit Trackin Total Visit Count: Time Spent with Patient Therapeutic Interventions Group Therapy (min): 37 min Time Tracking Total Treatment Time (min): 37 min Etienne Sheldon P.T.A. This note is dictated using Fluency Direct. Therapist has edited note, but grammatical errors are possible. * Katarzyna Navarrete M.S., O.T., [facility] - 12/05/2024 8:00 AM CDT Occupational Therapy Pain Rehabilitation Program Outpatient Progress Note SUBJECTIVE Patient's Name: Paramjit Boyce Preferred Name: Paramjit Reason for Referral/Referring Provider: Reason for Referral: OT/PT for Pain Rehabilitation Program.Referred by Kristi Sommer APRN, SEALER OPERATOR, M.S. Medical Diagnosis: 1. Pain Generalized 2. Decline Functional Status [R53.81] 3. Chronic Pain Syndrome [G89.4] Onset Date/Date OT Ordered: No data recorded Client Goals: Refer to personal goals established in [facility] during initial evaluation. OBJECTIVE Pain: As documented by nursing in medical record. TREATMENT Client was seen individually for skilled occupational therapy intervention focused on [id number] planning. OT facilitated exploration of meaningful productivity roles and engagement in problem-solving to identify barriers to participation in volunteer and work activities. Client verbalized desire to pursue fulfilling roles involving service to others. Client reported uncertainty regarding participation due to anticipated life events that may impact availability and ability to engage. Client demonstrated initiative by researching volunteer opportunities at two [facility], bothof which have current openings. Client also has a scheduled meeting with a vocational counselor next week to further explore vocational direction and opportunities. Educated on how to break down steps to finding and applying for volunteer/work positions if the opportunity arises. Assessment Clinical Impression: Client was receptive to meeting with occupational therapy about vocational pursuits, but identifiednumerous barriers that may inhibit participation. He had followed through on looking up volunteer options and verbalizes a plan to pursue if able after PRC. Patient would benefit from continued occupational therapy to [...] Total Treatment Time (min): 30 min Katarzyna Navarrete MS, OTR/L, [facility] documented in this encounter Miscellaneous Notes * Group Note - Reyes Spears CNS MYuliet, R.N. - 12/05/2024 8:00 AM CDT The patient attended Pain Psychology Behavioral Health Group. Number of patients in group: 15. Group facilitated by : TALA Davis M.S., R.N. Topic and Goals of Group session: CBT Jeopardy Goals: Patient will identify how a cognitive behavioral coping strategy may be helpful to them to manage chronic pain, difficult moods, and/or stress. Therapeutic interventions: Explore basic concepts of Cognitive Behavioral Therapy through Jeopardy format providing opportunity for discussion and questions. Learning Methods Used: class/group, experiential practice, small group discussion, and visual information. PHYSICAL EXAM Mental Status: Patient was attentive and engaged. Mood was calm. Affect was congruent. No self- harm ideation was endorsed. Behaviors cooperative. ASSESSMENT / PLAN Evidence of Learning/Assessment of Progress: Patient's effort to show active interest/effort to learn and generalize new skills and behaviors during this session was good. Active within the group activity, able to answer some of the Jeopardy questions regarding CBT concepts. Less active as the session proceeded. Patient is making gradual progress in groups as expected. Patient will participate indaily pain psychology and health education groups for fifteen treatment days. #1 Pain Generalized #2 Decline Functional Status [R53.81] Time spent with patient (in minutes): 60 Signed by: TALA Davis M.S., R.N. 12/05/2024 10:09 AM CDT * Group Note - Gabriele Ferguson Jr. MSally, L.P.C.C. - 12/05/2024 8:00 AM CDT The patient attended Pain Psychology Behavioral Health Group. Number of patients in group: 15. Group facilitated by : Gabriele Ferguson Jr. MSally, L.P.C.CMackenzie and ELA Renae Topic and Goals of Group session: Recreational [...] symptoms. Learning Methods Used: class/group, experiential practice, and psychologist guided discussion. PHYSICAL EXAM Mental Status: Patient was attentive and engaged in discussion. Mood was calm. Affect was congruent. No self-harm ideation was endorsed. Thought process was within normal limits. Speech was linear and coherent. Behaviors were appropriately interactive with peers and cooperative with group intake rn. Insight and judgment were adequate. ASSESSMENT / PLAN Evidence of Learning/Assessment of Progress: Patient's effort to show active interest/effort to learn and generalize new skills and behaviors during this session was good. Paramjit was engaged in the recreational activity playing basketball with several of his peers. Will continue to participate in pain psychology and health education groups daily during participation in the three-week interdisciplinary [facility] program. Progressing in PRC programming as expected. #1 Pain Generalized #2 Decline Functional Status [R53.81] Time spent with patient (in minutes): 30 Signed by: Gabriele Ferguson Jr., M.A., L.P.C.C. 12/05/2024 10:57 AM CDT * Group Note - Daysi Hoskins O.T. - 12/05/2024 8:00 AM CDT Occupational Therapy Pain Rehabilitation Program Outpatient Progress Note SUBJECTIVE Patient's Name: Paramjit Boyce Preferred Name: Paramjit Reason for Referral/Referring Provider: Reason for Referral: OT/PT for Pain Rehabilitation Program.Referred by Kristi Sommer APRN, SEALER OPERATOR, M.S. Medical Diagnosis: 1. Pain Generalized 2. Decline Functional Status [R53.81] 3. Chronic Pain Syndrome [G89.4] Onset Date/Date OT Ordered: No data recorded Client Goals: Refer to personal goals established in [facility] during initial evaluation. OBJECTIVE Pain: As documented by nursing in medical record. TREATMENT Group treatment: Group Attendance: Attended and was prompt for Occupational Therapy programming, Other (comment) (He attended 30 min of group session as had another appointment.) Group Session Attendance: 7 Group Participation: Patient was active and participatory. Self-Cares Group: Client's identity confirmed and client attended group on self- care. OT provided instruction in the topic of self-care, including theory and practice of physical, emotional, cognitive, and spiritual care of the self in daily occupations. The client actively participated in a group activity, facilitated by the OT, to identify person-centered goals for improving self-care in each of the four self-care domains. The client actively engaged in demonstration of a log-roll transfer and bed mobility plus making a bed using PRC concepts to teach back learning. Group discussion included education, goal setting, and problem-solving strategies to improve self-care in daily occupations.OT provided education in utilizing appropriate modifications for improving function for safe engagement in physical self-care while retiring symptom-based methods of adapting self-care. OT provided instruction in sleep positioning concepts for general back alignment and application of body mechanics during bed transfers, bed mobility, and sleep. OT provided general and individual instruction in identifying new sleep positions that support a neutral position for the spine, hips, and shoulders with minimal adaptation or positioning aids. Education provided in the household task of managing bed l inens using good body mechanics. Assessment Clinical Impression: Response to Instruction: Client verbally demonstrated understanding, Client physically demonstratedunderstanding Progress Toward Goals: Is compliant with education provided Pain Response During Activities: Client demonstrated no pain behavior with activities Group Interactions Observations: Client asked appropriate questions and contributed to group discussion Self-Cares Clinical Impression: The client was receptive to education concepts as evidenced by verbalizing application of concepts to daily occupations and actively engaging in activities. The clientprogressed in their ability to apply body mechanics skills to their daily functioning as evidenced by verbalizing application of concepts to sleeping positions and bed transfers. The client progressed in their ability to apply life balance concepts by verbalizing understanding of importance of and how to achieve balance between self-care, productive, and leisure activities. Client demonstrates good insight into importance [...] min Time Tracking Total Treatment Time (min): 30 min Daysi Hoskins O.T. * Group Note - Gabriele Ferguson Jr., M.A., L.P.C.C. - 12/05/2024 8:00 AM CDT The patient attended Pain Psychology Behavioral Health Group. Number of patients in group: 14. Group facilitated by : Gabriele Ferguson Jr., M.A., L.P.C.C. Topic and Goals of Group session: Cognitive Defusion Goals of Intervention: Patient will be introduced to concept of defusion from pain cognitions. Patient will understand concept of defusion as means of reducing suffering related to pain and increase resources available to cope with pain. Therapeutic interventions included discussion format and use of experiential exercises to defuse from unhelpful pain cognitions. Learning Methods Used: class/group, experiential practice, printed materials, psychologist guided discussion, and visual information. PHYSICAL EXAM Mental Status: Patient was attentive and engaged in discussion. Mood was calm. Affect was congruent. No self-harm ideation was endorsed. Thought process was within normal limits. Speech was linear and coherent. Behaviors were appropriately interactive with peers and cooperative with group intake rn. Insight and judgment were adequate. ASSESSMENT / PLAN Evidence of Learning/Assessment of Progress: Patient's effort to show active interest/effort to learn and generalize new skills and behaviors during this session was good. Paramjit was fairly quiet during most of the session. He did share with the large group a thought he struggles with relating to his health and symptoms and was able to engage in the experiential practices. Will continue to participate in pain psychology and health education groups daily during participation in the three-week interdisciplinary [facility] program. Progressing in PRC programming as expected. #1 Pain Generalized #2 Decline Functional Status [R53.81] #3 Chronic Pain Syndrome [G89.4] Time spent with patient (in minutes): 60 Signed by: Gabriele Ferguson Jr., M.A., ReynoldP.CMackenzieCMackenzie 12/05/2024 2:20 PM CDT * Group Note - Reyes Spears CNS, M.S., R.N. - 12/05/2024 8:00 AM CDT The patient attended Pain [...] behaviors during this session was adequate. Engaged well, sitting quietly in the front of the room. Patient is making gradual progress as expected within relaxation practices. Patient will participate in daily pain psychology and health education groups for fifteen treatment days. #1 Pain Generalized #2 Decline Functional Status [R53.81] #3 Chronic Pain Syndrome [G89.4] Time spent with patient (in minutes): 30 Signed by: TALA Davis, M.S., R.N. 12/05/2024 4:01 PM CDT documented in this encounter Plan of Treatment Upcoming Encounters Date Type Department Care Team (Late st Contact Info) Description 01/07/2025 1:30 PM COMPUTER NETWORK ENGINEER Telemedicine Department of Urology in [place], [place] [address] [place] [phone] Danielle Pitt D.O. [address] [place] [phone] documented as of this encounter Visit Diagnoses Diagnosis Pain Generalized- Primary Decline Functional Status [R53.81] Chronic Pain Syndrome [G89.4] documented in this encounter Additional Health Concerns Assessment Noted Time PHQ-9 Depression Total Score: 5 07/07/19 24 9:17 PM CDT documented as of this encounter Care Teams Tanning Wheel Operator Relationship Specialty Start Date End Date Elsewhere, Pcp PCP - General Internal Medicine 05/22/18 documented as of this encounter
--- OUTSIDE RECORDS SUMMARY | 2024-12-05 10:00 | XMS_ITS | Encounter Summary ---
Author Organization [facility] Address [address] [address] Care Team Providers Care Pot Annealer Name Role Phone Eliana Guerra MD Primary Care Provider [phone] Reason for Visit * Reason Comments Follow-up, NOS Entered automaticall y based on patient selection in [place]. Encounter Details Date Type Department Care Team (Late st Contact Info) Description 12/05/2024 11:00 AM CDT E-Visit Orthopedics at [address] [address] Anahi Van MD [address] [place] [phone] Chief Comp: Follow-up, NOS Social History Tobacco Use Types Packs/Day Years Used Date Smoking Tobacco: Never Smokeless Tobacco: Never Alcohol Use Standard Drinks/Week Comments Yes 0 (1 standard drink = 0.6 oz pur e alcohol) occasional [facility] Utilities Answer Date Recorded In the past 12 months has [employer], gas, oil, or water [employer] threatened to shut off services in your [...] any time in the past 12 m [facility], were you homeless or living in a [facility] (including now)? No 07/04/2024 Sex and Gender Information Value Date Recorded Sex Assigned at Not on file Legal Sex Male 5:33 PM MUSIC AGENT Gender Identity Not on file Sexual Orientation Not on file documented as of this encounter Nursing Notes * Mirian Mccall, KASIE - 12/11/2024 8:22 AM CST HC permit application thru 12/2025 mailed to home address. Mirian Mccall RN 12/11/2024, 8:23 AM C AGENT documented in this encounter Plan of Treatment Upcoming Encounters Date Type Department Care Team (Late st Contact Info) Description 01/11/2025 9:40 AM MUSIC AGENT Appointment [facility] Medicine [address] [place] [address] Roz Crow, [address] [place] [address] 01/22/2025 10:40 AM MUSIC AGENT Appointment Orthopedics at [facility] [address] [place] [address] Anahi Van MD [address] [place] [phone] documented as of this encounter Visit Diagnoses Not on filedocumented in this encounter Care Teams Pot Annealer Relationship Specialty Start Date End Date Eliana Guerra MD [address] [place] [address] PCP - General Family Practice 12/04/19 documented as of this encounter
--- OUTSIDE RECORDS SUMMARY | 2024-12-06 07:00 | XMS_ITS | Encounter Summary ---
Author Organization [facility] Address [address] [place] [address] Care Team Providers Care Territory Outside Sales Manager Name Role Phone Elsewhere, Pcp Primary Care Provider Unavailabl e Reason for Visit * Behavioral Health (Routine) - Authorized Specialty Diagnoses / Procedures Referred By Contact Referred To Contact Psychiatry / Pain Rehabilitation Center Diagnoses Chronic Pain Syndrome Procedures [facility] Programs WI GROUP THERAPY WI HLTH BHV IVNTJ GRP 1ST 30 [place] HLTH BHV IVNTJ GRP EA ADDL 15 [place] HOME MGMT TRAIN EA 15MIN PT [place] PSY TST INTERP & FEEDBACK INIT HR Hamilton Beebe, Ph.D., L.P. [address] [place] [phone] Phone: tel:[phone] fax:[phone] [place] Referral ID Status Reason Start Date Expiration Date V isits Requested Visits Authorized [id number] Authorized 10/10/2024 02/06/2025 17 17 Encounter Details Date Type Department Care Team (Latest Contact Info) Description 12/06/2024 8:00 AM CDT Clinical Support [facility] in [place], [place] [address] [place] [phone] Hamilton Beebe, Ph.D., L.P. 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 I have a st [place] place to live 05/29/2024 Education Answer Date Recorded What is the highest level of school you have completed or the highest degree you have received? 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 Paramjit Boyce was admitted to the [facility] on 11/16/2024 for comprehensiverehabilitation to address generalized pain. I met with Mr. Boyce per patient request to discuss application of cognitive behavioral therapy strategies and stress management as he nears the end of the sixteen-day comprehensive program. Mr. Boyce shared and described the recent legal stressors he has been experiencing. He indicated the hope had waned in the past week due to the potential outcome of the proceedings with passive suicidal ideation. He indicated remaining focused on the short-term has been beneficial since meeting with Dr. Wakefield, but would like to create plans to cope when he returns home. We reviewed the stress management techniques that he has found helpful and practiced challenging maladaptive thoughts to promote problem-focused ways of address stress that is within his control. He stated he feels as though he can manage his health and life stressors until a his legal concerns are finalized. He shared at that time, he would have concern that he may cease engaging in self-care (e.g., not clean self-catheterize, not consistently use feeding tube) and give up. He expressed a desire to create a plan so that he does not reach a point of self-harm if that were to occur. Given that he is not at acute risk for self-harm we outlined a safety plan (e.g., social contact with mother, friends, utilizing emergency services, calling 911) that he was encouraged to continue elaborating upon and completing independently this evening. [facility] caser up will follow-up with him regarding progress with this. We spent the remainder of the time discussing additional questions he had. He had questions regarding pain behaviors, and we discussed the function of problematic pain behaviors and rationale for continuing to consider modifying these behaviors moving forward. He shared some concern regarding concentration and memory. We discussed several factors could contribute to these concerns (e.g., ongoing stressors, pain, ADHD, mood) and if these symptoms persist he should inform his local providers (i.e., stimulant medication prescribers) about concentration or attention concerns. OBJECTIVE PHYSICAL EXAM Mental Exam: Paramjit Boyce was oriented to time, place and person. She was well dressed and grooming was good. Mood: dysthymic. Affect: calm and pleasant. Attention: goal focused and oriented. Behaviors: engaged and interactive. Safety Assessment: ASSESSMENT / PLAN Diagnosis 1. Pain Generalized 2. Decline Functional Status [R53.81] Mr. Paramjit Boyce is actively engaged in pain rehabilitation and has made satisfactory progress toward therapeutic goals. He denied current suicidal ideation or plan, but has concerns about how his mood will be impacted as the legal stressors increase. We agreed upon a plan to prepare a safety plan that he can utilize when he returns home. [facility] caser up will follow-up with this safety planprior to discharge. He will complete his course of [facility] care tomorrow. Time Spent with Patient: 60 minutes Rashad Kendrick, Ph.D., L.P., ABPP 12/06/24 2:35 PM CDT * Jasper Sheldon, P.T.A. - 12/06/2024 8:00 AM CDT Physical Therapy Pain Rehabilitation Program Progress Note SUBJECTIVE Patient's Name: Paramjit Boyce Reason for Referral/Referring Provider: Reason for Referral: OT/PT for Pain Rehabilitation Program.Referred by Kristi Sommer APRN, CUSHION MAKER, M.S. Medical Diagnosis: 1. Pain Generalized 2. Decline Functional Status [R53.81] 3. Chronic Pain Syndrome [G89.4] No data recorded Payor: BLUE CROSS BLUE [employer]IELD [place] CARE / Plan: BCBS BLUE PLUS HMO / Product Type: Medicaid HMO / [...] of exercise with modifications/progressions as follows: Increased resistance, repetitions. Client benefitedfrom verbal and visual cueing for lower trunk control, muscle relaxation, posture, and technique? Flexibility Exercise: Client performed whole-body active range of motion and sustained stretching exercises for muscle, neural, joint flexibility, management of spasms/cramps and/or pain. Assessment Clinical Impression: Client returned for physical therapy as part of their PRC programming and fully participated and was receptive to education with hesitation. Client tolerated exercise well, put forth appropriate effort, was able to increase weight or repetitions as recommended, required occasional 1:1 assistance toperform exercises correctly, had no pain behaviors during PT session. Client is demonstrating progress towards PT and/or personal goals, specifically increased repetitions, and resistance. 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 This note is dictated using Fluency Direct. Therapist has edited note, but grammatical errors are possible. * Katarzyna Navarrete M.S., O.T., [facility] - 12/06/2024 8:00 AM CDT Occupational Therapy Pain Rehabilitation Program Outpatient Progress Note SUBJECTIVE Patient's Name: Paramjit Boyce Preferred Name: Paramjit Reason for Referral/Referring Provider: Reason for Referral: OT/PT for Pain Rehabilitation Program.Referred by Kristi Sommer APRN, CUSHION MAKER, M.S. Medical Diagnosis: 1. Pain Generalized 2. Decline Functional Status [R53.81] 3. Chronic Pain Syndrome [G89.4] Onset Date/Date OT Ordered: No data recorded Client Goals: Refer to personal goals established in COPM during initial evaluation. OBJECTIVE Pain: As documented by nursing in medical record. TREATMENT Client???s identity confirmed. Client has been seen in full PRC Programming since admission on 11/16/2024. Met with client to discuss discharge plans and to review goals set initially. Client also expressed uncertainty of how to manage fine motor difficulties and OT educated on adaptive techniques to be able to moderate/modify hand use as well as improve functioning. Client verbalized plans to incorporate program concepts of moderation, body mechanics, time/activity management, relaxation techniques, balance of self care, leisure and productive activities into daily schedule. Client plans to return to daily activities with the following recommendations: Modify your physical approach and/or the environment to promote an atmosphere that allows for proper posture and body positioning while lifting, carrying, and reaching Implement an ergonomically correct environment in the work and home settings To save energy, alternate activities and pace yourself throughout the day Utilize relaxation principles such as diaphragmatic breathing both on a regular basis and ???as needed?? to manage stress, reduce muscle tension, and improve cognitive functioning Follow a consistent sleep schedule Plan out a healthy structured day that allows for activities to be spread out during the day Take frequent stretch breaks and change positions during repetitive activities to prevent over-fatiguing muscles In daily activities incorporate moderation, modification, energy conservation, time management and proper body mechanics to maintain independence and manage symptoms Facilitate a good balance between work, self-care, and leisure activities Client???s perception of progress toward individual Occupational Therapy goals identified at time of admission is: The [place] Occupational Performance Measure (COPM) is an individualized measure of a client's self-perception of problems encountered in occupational performance. This tool is designed for use by Occupational Therapists to detect a client's self-perceived change in occupational performance problems over time. Initial Assessment Reassessment Occupational Performance Problems: Area Performance Satisfaction Performance Satisfaction 1. Social activities with friends 9 4 7 9 6 2. Active leisure (pickleball, etc.) 8 6 5 9 9 3. Driving 3 7 5 8 7 4. Household tasks 5 4 5 8 4 5. Using the computer (whole process) 4&7 6 5 8 3 Total Performance Total Satisfaction Total Performance Total Satisfaction Total Scores 27 27 42 29 Average Performance Average Satisfaction Average Performance Average Satisfaction Average Scores (total/number of problems) 5.4 5.4 8.4 5.8 Change Performance Change Satisfaction Change Scores 3.0 0.4 Performance (How would you rate the way you do this activity now?) 1 = not able to do to it at all; 10 = able to do it extremely well Satisfaction (How satisfied are you with the way you do this activity now?) 1 = not satisfied at all; 10 = extremely satisfied A positive change in performance or satisfaction score indicates an improvement in occupational performance. The client was provided with a binder containing the following Handouts: -Activity Management: Shopping, Kitchen, Garbage [id number] -Building Intimacy in Your Relationships [id number] -Comfort During Sexual Activity [id number] -Ten Basic Stretches [id number] -Body Mechanics: Posture and Handling Objects [id number] -Vocation and Chronic Conditions [id number] -Activity Management: Yard and Garage Work, and Driving [id number] -Workspace Ergonomics [id number] -Managing Your Time for a Balanced Life [id number] -Improving Your Attention and Memory [id number] -Activity Management: Cleaning, Laundry, Auto Salvage Worker IN3138-84 -Understanding Your Values [id number] -Activity Management: Personal Care Tasks [id number] -Moderation and Modification for People with Chronic Conditions CA0417-34 -Time Management Worksheet [id number] and [id number] -Weekend Planning for People with Chronic Conditions [id number] -Thinking Strategies [id number] Assessment Clinical Impression: The client demonstrates moderate progress towards OT goals and focus areas as evidenced by client self-report and COPM ratings above . An increase in 2 or more points is considered significant. Client increased by 3.0 points on average in performance and 0.4 points on average in satisfaction. This progress represents improvement in the client's ability to apply and generalize [facility] concepts of proper body mechanics, ergonomics, environmental modifications, energy conservation, diaphragmatic breathing, relaxation, and time management strategies to the daily occupations that are most meaningful to them. Client would benefit from ongoing skilled OT services during the PRC program before discharge on 12/07/2024. Goals: 1. Client will utilize proper body [...] Patient Therapeutic Interventions Home Management Training (min): 45 min Time Tracking Total Timed Units (min): 45 min Total Treatment Time (min): 45 min Katarzyna Navarrete MS, OTR/Pratima, [facility] documented in this encounter Miscellaneous Notes * Group Note - Claudia Herrmann M.S., O.T. - 12/06/2024 8:00 AM CDT Occupational Therapy Pain Rehabilitation [...] Group Participation: Patient was active and participatory. Moderation Group: Client's identity confirmed and client attended group on moderation. OT provided instructions in applications of PRC concepts to progress application of moderation to daily occupations. OT provided group facilitation and individualized grading of instruction to address client's needs in the group setting. OT education content consisted of moderation and modification as well as the application of these concepts to daily occupations to enhance functioning. Education provided in identifying habits that contribute to overdoing and underdoing with energy expenditure, time use, and stress load in daily occupations. Client was pulled for OT checkout and did not return to work. Assessment Clinical Impression: Response to Instruction: Client verbally demonstrated understanding Progress Toward Goals: Is compliant with education provided Pain Response During Activities: Client demonstrated no pain behavior with activities Group Interactions Observations: Client asked appropriate questions and contributed to group discussion Moderation Clinical Impression: The client was receptive to education concepts as evidenced by verbalizing application of concepts to daily occupations and actively engaging in activities. The clientprogressed in their ability to apply moderation and modification skills to their daily functioning as evidenced by verbalizing applicability to daily life. Client demonstrates good insight into importance of applying moderation and modification skills learned today to assist with daily [...] Tracking Total Treatment Time (min): 15 min Claudia Herrmann M.S., O.T. * Group Note - Gabriele Ferguson Jr., M.A., L.P.C.C. - 12/06/2024 8:00 AM CDT The patient attended Pain [...] interactive with peers and cooperative with group parts facilitator. Insight and judgment were adequate. ASSESSMENT / PLAN Evidence of Learning/Assessment of Progress: Patient's effort to show active interest/effort to learn and generalize new skills and behaviors during this session was good. Paramjit was engaged in the mindful walking practice. Will continue to participate in pain psychology and health education groups daily during participation in the three-week interdisciplinary [facility] program. Progressing in PRC programming as expected. #1 Pain Generalized #2 Decline Functional Status [R53.81] Time spent with patient (in minutes): 30 Signed by: Gabriele Ferguson Jr., M.A., L.P.C.C. 12/06/2024 11:02 AM CDT * Group Note - Gabriele Ferguson Jr., M.A., L.P.C.C. - 12/06/2024 8:00 AM CDT The patient attended Pain Psychology Behavioral Health Group. Number of patients in group: 16. Group facilitated by : Gabriele Ferguson Jr., M.A., L.P.C.C. Topic and Goals of Group session: Neurosciences of Chronic Pain and other Chronic Symptoms Goals: Patient will understand physiology of chronic pain and other chronic symptoms and neuroscientific basis for comprehensive treatment of chronic symptoms. Therapeutic interventions: Introduction of concepts in lecture format, slides, discussion, and video clips. Learning Methods Used: class/group, printed materials, psychologist guided discussion, and visual information. PHYSICAL EXAM Mental Status: Patient was attentive and engaged in discussion. Mood was calm. Affect was congruent. No self-harm ideation was endorsed. Thought process was within normal limits. Speech was linear and coherent. Behaviors were appropriately interactive with peers and cooperative with group parts facilitator. Insight and judgment were adequate. ASSESSMENT / PLAN Evidence of Learning/Assessment of Progress: Patient's effort to show active interest/effort to learn and generalize new skills and behaviors during this session was good. Paramjit took notes and was rather quiet but attentive throughout the session. Will continue to participate in pain psychology and health education groups daily during participation in the three-week interdisciplinary [facility] program. Progressing in PRC programming as expected. #1 Pain Generalized #2 Decline Functional Status [R53.81] Time spent with patient (in minutes): 60 Signed by: Gabriele Ferguson Jr., M.A., L.P.CMackenzieC. 12/06/2024 2:51 PM CDT * Group Note - Reyes Spears CNS, M.S., R.N. - 12/06/2024 8:00 AM CDT The patient attended Pain Psychology Behavioral Health Group. Number of patients in group: 16. Group facilitated by : TALA Davis, M.S., R.N. Topic and Goals of Group session: Mindful Body Scan Goals: Patient will learn and practice mindfulness techniques to increase overall relaxation and reduce muscle tension associated with chronic pain symptoms. Therapeutic interventions: Guided experiential mindfulness exercise. Learning Methods Used: class/group [...] was adequate. Engaged appropriately during today's guided mindfulness practice. Quiet and still, sitting with eyes open part of the time.Patient is making gradual progress as expected within relaxation practices. Patient will participate in daily pain psychology and health education groups for fifteen treatment days. #1 Pain Generalized #2 Decline Functional Status [R53.81] Time spent with patient (in minutes): 30 Signed by: TALA Davis, M.S., R.N. 12/06/2024 2:57 PM CDT documented in this encounter Plan of Treatment Upcoming Encounters Date Type Department Care Team (Late st Contact Info) Description 01/07/2025 1:30 PM [facility] Telemedicine Department of Urology in [place], [place] [address] [place] [phone] Danielle Pitt D.O. [address] [place] [phone] documented as of this encounter Visit Diagnoses Diagnosis Pain Generalized- Primary Decline Functional Status [R53.81] Chronic Pain Syndrome [G89.4] documented in this encounter Additional Health Concerns Assessment Noted Time PHQ-9 Depression Total Score: 5 07/07/19 24 9:17 PM CDT documented as of this encounter Care Teams Territory Outside Sales Manager Relationship Specialty Start Date End Date Elsewhere, Pcp PCP - General Internal Medicine 05/22/18 documented as of this encounter
--- OUTSIDE RECORDS SUMMARY | 2024-12-07 07:00 | XMS_ITS | Encounter Summary ---
Author Organization [facility] Address [address] [place] [id number] Care Team Providers Care Police Officer Crime Prevention Name Role Phone Elsewhere, Pcp Primary Care Provider Unavailabl e Reason for Visit * Behavioral Health (Routine) - Authorized Specialty Diagnoses / Procedures Referred By Contact Referred To Contact Psychiatry / [facility] Rehabilitation Center Diagnoses Chronic Pain Syndrome Procedures [facility] Programs CA GROUP THERAPY CA HLTH BHV IVNTJ GRP 1ST 30 CA HLTH BHV IVNTJ GRP EA ADDL 15 CA HOME MGMT TRAIN EA 15MIN PT CA PSY TST INTERP & FEEDBACK INIT HR Hamilton Beebe, Ph.D., L.P. [address] [place] [phone] Phone: tel:[phone] fax:[phone] [place] Referral ID Status Reason Start Date Expiration Date V isits Requested Visits Authorized [id number] Authorized 10/10/2024 02/06/2025 17 17 Encounter Details Date Type Department Care Team (Latest Contact Info) Description 12/07/2024 8:00 AM CDT Clinical Support [facility] Center in [place], [place] [address] [place] [phone] Hamilton Beebe, Ph.D., L.P. 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 - 12/07/2024 8:00 AM CDT Patient Demographics Patient Name Paramjit Boyce Date of 2000 Age 24 y.o. Sex Male Address [address] [place] [phone] Phone Numbers Hm: [phone] PCP Elsewhere, Pcp Race White Ethnic Group Not or Code Status Title Not on file Marital Status Single Employer STUDENT Employment Status Not Employed Insurance Information [facility] Emergency Contacts None on File Other Contacts Name Relation Home Work Mobile Millie Reinoso Mother [phone] Chetan Boyce Father [phone] [facility] DISMISSAL SUMMARY Referring provider: Mike Salomon Jr, P.A.-C CHIEF COMPLAINT / REASON FOR VISIT Episode of Care: 11/16/2024 to 12/07/2024 Number of treatment days completed: 15 Admitting Mechanical Car Checker: Emiliana Rouse M.D. ([phone]) Interim Mechanical Car Checker: Emiliana Rouse M.D. ([phone]) Dismissing Mechanical Car Checker: Emiliana Rouse M.D. ([phone]) Poultry Debeaker: Seth Marie R.N. [facility] DIAGNOSIS: The primary encounter diagnosis was Pain Generalized. A diagnosis of Decline Functional Status [R53.81] was also pertinent to this visit. HISTORY OF PRESENT ILLNESS he patient presents with diffuse arthralgia involving multiple body regions. First, he has ongoing wrist pain related to prior trauma. He also experiences bilateral ankle pain. At the current time, has a cast on the right ankle. He also has left ankle pain, as well as bilateral shoulder, hip, and knee pain. Pain extends to involve the both thoracic and lumbar regions. 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 [facility] COURSE OF TREATMENT The [facility] treatment team conducted a complete assessment of Mr. Boyce upon admission, and the following problems were identified to be addressed during the patient's participation in the [facility]. 1. Need to Increase Activities of Daily Living/Decrease Symptom-Contingent Lifestyle Mr. Boyce attended daily [facility] programming and actively participated despite varying levels of chronic symptoms. He demonstrated a decline in pain/symptom behaviors/symptom-contingent lifestyle including preoccupation with symptoms or pain, talking about symptoms or pain, withdrawing, and avoiding activity Emphasis was placed on specific [facility] concepts of moderation, modification, and time management in all areas of functioning. The patient participated in educational sessions on sleep hygiene. On dismissal from the program, the patient completed a written difficult day plan for self-management of symptoms at times when feeling more challenged. He completed a 2 week daily schedule to provide structure and assist with maintaining activity while implementing moderation. 2. Physical Deconditioning Mr. Boyce participated in physical therapy daily and utilized the stationary exercise equipment for cardiovascular conditioning. The patient noted an improvement in endurance, strength, flexibilityand overall aerobic conditioning while in the [facility] program. The patient developed specific plans to continue a consistent, daily exercise routine upon return home to maintain gains in physical status and to continue efforts toward full rehabilitation. 3. Medication Issues Mr. Boyce participated in chemical health group sessions to learn about the effects of long-term medication and chemical use on the body, the appropriate use of narcotics and jltu-nuh-xqjvezi medications for acute and chronic pain, and overall health and wellness concepts. The patient required nomedication tapers. The importance of refraining from the use of opioids and/or daily analgesic medications for chronicpain for at least six months following completion of the [facility] program was discussed. Paramjit Boyce is competent to self-administer medications following dismissal from the [facility] 4. Mood Management Mr. Boyce attended daily group therapy sessions on stress and mood management. Medication for mood management was maintained with Fluoxetine and Lorazepam. The patient reports hope for normalizing his lifestyle to include increased activity with improved coping skills to manage pain effectively. Based on the patient's responses on the Patient Health Questionnaire (PHQ-9) upon admission, the patient scored 15 on this measure (range 1 to 27), suggesting the presence of moderately severe (15-19) depressive symptomatology. Upon dismissal, the patient scored 15 on this measure (range 1 to 27), s uggesting the presence of moderately severe (15-19) depressive symptomatology. This represents a maintenance of depressive symptomology compared to admission. CONSULTS Biofeedback - three sessions Vocational Rehabilitation with Tato Plasencia, PhD DISMISSAL MEDICATIONS Mr. Boyce was given a list of current medications and was provided with education about any changes in medication regime. The patient was instructed to update all medical providers when medicationsare discontinued, doses are changed, or new medications are added and to carry medication information at all times in the event of an emergency situation. Current Medications[1] Medical History[2] Surgical History[3] DISMISSAL MENTAL STATUS EXAMINATION On dismissal, Mr. Boyce was pleasant and cooperative. Eye contact was direct. Speech was of normal rate and tone; conversation was focused on topic Mr. Boyce verbalized orientation to date, person, and place. Memory appeared normal as evidenced by accurate account of medical history. Mood was calm and the affect was congruent. There was no evidence of disorder in thought, form, or content. This was evidenced by clear and consistent ideation and thought process. Fund of knowledge appears appropriate for level of education, age, and life experience. Abstract reasoning and judgement appearedintact. C-SSRS at dismissal: [facility] [place] SUMMARY STATEMENT Mr. Paramjit Boyce participated in a three-week pain rehabilitation program to gain coping skillsto help manage pain more effectively. The goals of this program are to assist patients to improve their quality of life and ability to function in both their home and social environments, to participate in active employment or volunteer activities when feasible, and to reduce utilization of analgesic pharmacotherapies and health care services for chronic pain. FOLLOW-UP RECOMMENDATIONS The following recommendations have been made for ongoing care: Follow up with primary care provider, Eliana Guerra M.D. Patient to make own appointment arrangements. Follow up with mental health provider, Una Apodaca PsyD, LP. Patient to make own appointment arrangements. Continue to implement stress management and relaxation skills. Continue with specific exercises as outlined in physical and occupational therapy dismissal summaries. Attend [facility] Aftercare Program, Call [phone] to schedule. Participate in [facility] Longitudinal program for ongoing pain rehabilitation needs,Call [phone] to schedule. PAIN/SYMPTOM MANAGEMENT PLAN - Follow regular daily exercise and stretching routine. - Practice moderation and maintain daily structure by utilizing a daily plan. - Use distraction, such as hobbies, leisure/family activities, socialization, and humor. - Practice relaxed, diaphragmatic breathing at least 10 minutes 3 times per day. - Use positive self-talk--affirmations and reframing of negative thinking, acknowledge strengths and gains. - Continue efforts to decrease pain/symptom behaviors. - Utilize a difficult day plan, review materials from [facility] when struggling. - Ask for support from family, friends, therapist, [facility] peers, or staff. - Avoid use of analgesics for management of chronic pain. - Attend [facility] aftercare when able. [1] Current Outpatient Medications: acetaminophen (TylenoL) 325 mg tablet, Take 650 mg by mouth every 6 (six) hours as needed., Disp: ,Rfl: aspirin [address] tablet, Take 81 mg by mouth 2 (two) times a day. With meals (Patient not taking: Reported on 11/16/2024), Disp: , Rfl: bisacodyL (Dulcolax) 10 mg suppository, Insert 10 mg into the rectum daily as needed., Disp: , Rfl: cyclobenzaprine (FlexeriL) 5 mg tablet, Take 5 mg by mouth 3 (three) times a day as needed., Disp: , Rfl: diazePAM (Valium) 5 mg tablet, Take 5 mg by mouth every 6 (six) hours as needed., Disp: , Rfl: famotidine (Pepcid) 40 mg tablet, Take 20 mg by mouth 2 (two) times a day., Disp: , Rfl: FLUoxetine (PROzac) 20 mg capsule, Take 20 mg by mouth every morning., Disp: , Rfl: gabapentin (Neurontin) 300 mg capsule, Take 900 mg by mouth 3 (three) times a day., Disp: , Rfl: ibuprofen 400 mg tablet, Take 400 mg by mouth every 6 (six) hours as needed., Disp: , Rfl: loratadine (Claritin) 10 mg tablet, Take 10 mg by mouth daily., Disp: , Rfl: LORazepam (Ativan) 0.5 mg tablet, Take 0.5 mg by mouth at bedtime as needed., Disp: , Rfl: methocarbamoL (Robaxin) 500 mg tablet, Take 500 mg by mouth 3 (three) times a day as needed., Disp:, Rfl: methylphenidate HCl (Metadate ER) 10 mg ER tablet, Take 1 Tablet (10 mg) by mouth once daily. For 3days, if tolerating well increase to 2 tablets by mouth once daily in the morning, Disp: 30 tablet,Rfl: 0 metoclopramide (Reglan) 5 mg tablet, Take 5 mg by mouth 3 (three) times a day before meals., Disp: , Rfl: mirtazapine (Remeron) 15 mg tablet, Take 15 mg by mouth at bedtime., Disp: , Rfl: omeprazole (PriLOSEC) [address] capsule, TAKE 1 CAPSULE(40 MG) BY MOUTH DAILY BEFORE A MEAL, Disp: ,Rfl: ondansetron ODT (Zofran-ODT) 4 mg disintegrating tablet, DISSOLVE 1 TABLET ON THE TONGUE EVERY 8 HOURS NEEDED FOR NAUSEA OR VOMITING (Patient not taking: Reported on 11/16/2024), Disp: , Rfl: oxyBUTYnin (Ditropan-XL) 10 mg 24 hr tablet, Take 10 mg by mouth daily., Disp: , Rfl: phenazopyridine (Pyridium) 200 mg tablet, , Disp: , Rfl: polyethylene glycol (Miralax) 17 gram powder packet, Take 17 g by mouth daily as needed. (Patient not taking: Reported on 11/16/2024), Disp: , Rfl: promethazine (Phenergan) 12.5 mg tablet, Take 12.5 mg by mouth., Disp: , Rfl: sulfamethoxazole-trimethoprim (Bactrim DS) 800-160 mg per tablet, Take 1 tablet by mouth 2 (two) times a day., Disp: , Rfl: tadalafiL (Cialis) 5 mg tablet, Take 1 tablet (5 mg total) by mouth daily. (Patient not taking: Reported on 11/16/2024), Disp: 90 tablet, Rfl: 0 tiZANidine (Zanaflex) 2 mg capsule, Take 2 mg by mouth every 8 (eight) hours as needed., Disp: , Rfl: traZODone (DesyreL) 50 mg tablet, Take 50 mg by mouth at bedtime., Disp: , Rfl: triamcinolone (Kenalog) 0.1 % cream, Apply 1 Application topically as needed for rash., Disp: , Rfl: [2] Past Medical History: Diagnosis Date Anesthesia Complication Personal History Asthma NOS Complication Anesthesia Initial Fracture Traumatic Personal History Gastroesophageal Reflux Disease NOS Headache Unspecified Infection Urinary Tract Personal History 11/17/2023 Loss Visual Osteopenia Other Injury Of Unspecified Body Region broken scaphoid Other Specified Health Status Urinary retention and gj tube Pectus Excavatum Scoliosis [3] Past Surgical History: Procedure Laterality Date ARTHROSCOPY [...] Jose Crawford M.D.; Location:[facility] OR STOMACH SURGERY * Barbara Raman P.T. - 12/07/2024 8:00 AM CDT Physical Therapy Pain Rehabilitation Program DISMISSAL Note SUBJECTIVE Patient's Name: Paramjit MarnieMackenzie Boyce Reason for Referral/Referring Provider: Reason for Referral: OT/PT for Pain Rehabilitation Program.Referred by Kristi Sommer APRN, AGRICULTURAL CHEMICALS INSPECTOR, M.S. Medical Diagnosis: 1. Pain Generalized 2. Decline Functional Status [R53.81] No data recorded Payor: [facility] / Plan: [employer] / Product Type: Medicaid HMO / 24 y.o. 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 Jak initially presented to the [facility] program with left toe to knee and right PIP to elbow cast following a fall while playing pickleball during which Paramjit rolled his ankle resulting in peroneal tendon injury, and an injury to his right digits while pushing himself off the ground. Patient removed the left upper extremity cast on his own. Please see 11/16/2024 PT evaluation for initial findings. Equipment: Jak updates that casting for temporarily immobilization has worked well for him in the past, and is planning on getting a right hip spica cast in the near future. He has bilateral anklefoot orthosis for weakness/foot drop, Thoraco-lumbar sacral orthosis that he wears sometimes, manual wheelchair - he reports intermittent weakness, front wheeled walker - not used. 12/07/24: Currently is in a full leg cast placed by outside facility for left peroneal nerve immobilization per client. Wearing right articulated ankle foot orthosis. Other Precautions: fall risk Patient/Caregiver Goals: Paramjit [...] documented by nursing in the medical record. PT Pain Rehab Scales 11/19/24: Patient Specific Functional Scale (PSFS): 1. return to work 20 hours/wk (05/17) 2. safely ascend anddescend stairs without handrail (06/16) 3. feel status is stable or improving (04/16) Standing Balance: Stance Test (Single Leg - Right): Eyes open 2.0 seconds; eyes closed not tested secondary to safety Standing Balance: Stance Test (Single Leg Left): Eyes open <1 second; eyes closed not tested secondary to safety Porsche 6 PPT 5 Minute Walk: 1039 50 foot walk (repeat after brief test): 12.99 Sec Repeated Trunk Flexion (5 repetitions - repeat one more time after brief test): 24.16 Sec (single trial due to safety concerns) Loaded Reach Distance (cm): 72 cm Loaded Reach Weight (lbs): 8 # Repeated sit to stand (5 repetitions - repeat one more time after brief test): 19.21 Sec Timed Up and Go (TUG): 10.19 sec PT Pain Rehab Scales 12/07/2024 Patient Specific Functional Scale (PSFS): 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 safely ascend and descend stairs without handrail (09/16 with left longleg cast. not applicable without cast without a rail) 3. feel status is stable or improving (more mental awareness on status 07/17) Porsche 6 PPT 5 Minute Walk: 1205 feet 50 foot walk: held due to long leg cast Repeated Trunk Flexion (5 repetitions - repeat one more time after brief test): 11.46 Sec Loaded Reach Distance (cm): 74 cm Loaded Reach Weight (lbs): 8 # Repeated sit to stand (5 repetitions - repeat one more time after brief test): single trial: 20 Sec Timed Up and Go (TUG): 5.09 sec Transfers: independent with variable quality. New left long leg cast limiting ankle/knee mobility Gait: independent with variable quality. Majority of time in programming Paramjit had a left lower legcast and right articulated ankle foot orthosis. Client exhibited intermittent right toe catching but was able to maintain balance and continue ambulation. Toe catching was not effected by adjusting right AFO into further dorsiflexion. Toe catching increased with additional gait training. Client hasbeen encouraged to focus on his hip flexion with dorsiflexion to ensure toe clearance and has improved on his steps up exercises. Right ankle foot orthosis: assessed right short articulated ankle foot orthosis and adjusted to position foot in more dorsiflexion. Added dorsiflexion did not improve toe catching. Paramjit preferred more neutral to plantar flexed position of the ankle foot orthosis so orthosis was returned to near initial positioning. Paramjit also has a long solid ankle foot orthosis which appears overly restrictive and rigid. This ankle foot orthosis did not improve toe catching significantly. Paramjit prefers the longer solid ankle foot orthosis but it should not be worn currently due to the skin breakdown risk from the lateral edges of the foot piece - recommended return to room service supervisor to make necessary adjustments. Joint Hypermobility Education: Continued to encourage joint protection, strengthening to support joints, posture and technique to facilitate return to function and mobility without overly restrictivemeasures. Immobilization may lead to further muscle atrophy, deconditioning, and impaired functional movements. Summary of Pain Rehabilitation Program Physical Therapy Met with client for dismissal session. Client participated in dismissal physical performance testing (see above). Provided education on performance, comparison of scores from initial assessment to today, and continued with discussion of their time within the [facility] program. Provided education and instruction on home going expectations for exercise and how to continue to incorporate varying therapeutic strategies learned within the three week program to best manage symptoms and ongoing participation in daily activities, education and/or occupation, hobbies and/or sports, and life. Finished with verbally reviewing their entire exercise routine, their progress (see below), and outlined exercise guidelines to continue with once home: 60 minutes of daily activity is recommended, which can include aerobic exercise, strengthening and/or sport/hobby activities added together. Provided education on benefits of consistent exercise for overall wellbeing, physical, and mental health. Emphasized that consistent and sustainable exercise is a lifelong skill of wellness. Range of motion: 5-7 days to maintain flexibility. Stretchin-7 days to maintain flexibility. 30 second holds Aerobic exercise: goal to continue with 20-30 minutes, five times more times a week. Reiterated to perform exercises at an activity level of moderate to somewhat hard level on the CARMEN RPE scale (12-13) or their age-specific target heart rate identified during the program. Strength trainin days per week. Discussed this can be similar to [facility] programming with one set of each exercise every day. Can complete two sets of each exercise. Exercise First Day Last Day Goal Triceps Purple band Bryan band Bryan Biceps Curl 4 # 10 # 10 Deltoids 2 # Purple band Purple Shoulder external rotation Refugio band Purple band Purple Hip Flexion - Step ups 5x 10x 10x Hip Abduction No weight 3 # 5 Hip Extension - supine leg press 3-5x 3-5x 3-5x Quadriceps: Sit to/from stand 5 reps 10 reps 10 reps Abdominal: Seated sit back 5 reps 10 reps 10 reps Abdominals - Plank on knees 10 sec x 2 30 sec x 2 30 sec x 22 Aerobic (minutes) 5 min 8 min in program. Participated 4 x in program 20-30 minutes Client verbalizes understanding of exercise guidelines and has no additional questions or concerns.Client will be discharged from Physical Therapy following completion of [facility] programming on December 07, 2024. Assessment Clinical Impression: Paramjit participated in the 3 week pain management program. Paramjit participated in specific strengthening exercises and progressed well with these. Paramjit chose to not participate inaerobic exercise while in the program. Paramjit updated he did significant ambulation outside of program and used to swim before feeding tube placement. Balance training was also limited due to participation and casting. Paramjit ambulated independently throughout programming without a gait aid. Did not require use of a gait aid or wheelchair during programming. Gait quality did not exhibit improvementwith specific training. Gait quality improved with distraction and functional tasks/activities. Functional Goals and Time Frames: PT Goal #1: Client will formulate/demonstrate an appropriate progression of strengthening exercisesto advance 2 pounds more or advance 2 or more levels for resistance band than starting weight/resistance by dismissal, to facilitate completion of work-related and household tasks. MET. PT Goal #2: Client will perform 15 minutes of aerobic activity at appropriate intensity level (target heart rate/perceived exertion scale) by dismissal, to facilitate engagement in the community and workplace.: Not met in this program PT Goal #3: Client will understand exercise guidelines and demonstrate independence with all exercises performed while in the Pain Rehabilitation Program by dismissal, to facilitate well-being and assist with self-management of chronic condition. Met - completes the designated exercises independently PT Goal #4: Client will report >2 point average improvement on the Patient Specific Functional Scale to demonstrate meaningful improvements in their perceived function. Plan Treatment Plan: Dismissing 12/07/2024 Treatment interventions may include: Group therapy, home management training, therapeutic activity, therapeutic exercise, neuromuscular re-education, neuroscience pain education, gait training, physical performance testing Total Visit Count: Time Spent with Patient Evaluations Physical Performance Testing (min): 30 min Therapeutic Interventions Therapeutic Exercise (min): 25 min Time Tracking Total Timed Units (min): 55 min Total Treatment Time (min): 55 min Barbara Raman P.T. documented in this encounter Miscellaneous Notes * Group Note - Claudia Herrmann M.S., O.T. - 12/07/2024 8:00 AM CDT Occupational Therapy Pain Rehabilitation Program Outpatient Progress Note SUBJECTIVE Patient's Name: Paramjit Boyce Preferred Name: Paramjit Reason for Referral/Referring Provider: Reason for Referral: OT/PT for Pain Rehabilitation Program.Referred by Kristi Sommer APRN, AGRICULTURAL CHEMICALS INSPECTOR, M.S. Medical Diagnosis: 1. Pain Generalized 2. [...] work on their OT focus areas. Client verbalized completing of two week plan and denied questions and/or concerns. Assessment Clinical Impression: Response to Instruction: Client verbally demonstrated understanding Progress Toward Goals: Is compliant with education provided Pain Response During Activities: Client demonstrated no pain behavior with activities Group Interactions Observations: Client asked appropriate questions and contributed to group discussion Weekend Planning Clinical Impression: The client was receptive to education concepts as evidenced by actively engaging in activities. The client progressed in their ability to apply moderation, modification, and time management concepts to their daily functioning as evidenced by incorporating program concepts into creation of specific plan for the weekend days. Client demonstrates emerging insight into importance of using skills learned today to assist with daily functioning. The client is discharged from OT [facility] programming services this date. Goals: 1. Client will utilize proper body [...] which incorporates program principles by dismissal. Plan Client will be discharged from [facility]ational [facility] program [facility] at the end of the day. Total Visit Count: Treatment interventions may include: Group therapy, home management training, neuromuscular re-education, biofeedback training, cognitive skills training, community/work reintegration Time Spent with Patient Therapeutic Interventions Group Therapy (min): 20 min Time Tracking Total Treatment Time (min): 20 min Claudia Herrmann M.S., O.T. * Group Note - Gabriele Ferguson Jr., M.A., L.P.C.C. - 12/07/2024 8:00 AM CDT The patient attended [facility] Group. Number of patients in group: 17. Group facilitated by : Gabriele Ferguson Jr., M.A., L.P.C.C. Topic and Goals of Group session: Time Based Pacing Goals of Intervention: Patient will understand disadvantages of pain-based activity and advantages of time-based pacing for chronic pain. Patient will have knowledge of the use of cognitive behavioral techniques and planning activity in order to prevent pain escalation and improve function. Patientwill apply the PRC concepts to break the cycle of chronic pain through time-based pacing. Therapeutic interventions: Discuss with patients introduction of concepts in lecture format, discussion, and handout. Learning Methods Used: class/group, psychologist guided discussion, and visual information. PHYSICAL EXAM Mental Status: Patient was attentive and engaged in discussion. Mood was calm. Affect was congruent. No self-harm ideation was endorsed. Thought process was within normal limits. Speech was linear and coherent. Behaviors were appropriately interactive with peers and cooperative with group metaphysics teacher. Insight and judgment were adequate. ASSESSMENT / PLAN Evidence of Learning/Assessment of Progress: Patient's effort to show active interest/effort to learn and generalize new skills and behaviors during this session was good. He was in a wheelchair for the duration of the session. He shared several comments including one at the beginning of the session when exploring moderation as he emphasized the importance of finding the balance between over and under doing. Will continue to participate in pain psychology and health education groups daily during participation in the [facility]. Progressing in [facility] programming as expected. #1 Pain Generalized #2 Decline Functional Status [R53.81] Time spent with patient (in minutes): 60 Signed by: Gabriele Ferguson Jr., M.A., L.P.CMackenzieCMackenzie 12/07/2024 2:04 PM CDT * Group Note - Gabriele Ferguson Jr., M.A., ReynoldP.CMackenzieC. - 12/07/2024 8:00 AM CDT The patient attended [facility] Group. Number of patients in group: 6. Group facilitated by : Gabriele Ferguson Jr., M.A., L.P.C.CMackenzie and Kennedy Casarez RN. Topic and Goals of Group session: Marvel Chi Goals of Intervention: Patient will participate in Marvel Chi movement and breathing therapy to learn evidence-based techniques for self-management of pain symptoms. Therapeutic interventions: Gentle Marvel Chi. Learning Methods Used: class/group and experiential practice. PHYSICAL EXAM Mental Status: Patient was attentive and engaged in discussion. Mood was calm. Affect was congruent. No self-harm ideation was endorsed. Thought process was within normal limits. Speech was linear and coherent. Behaviors were appropriately interactive with peers and cooperative with group metaphysics teacher. Insight and judgment were adequate. ASSESSMENT / PLAN Evidence of Learning/Assessment of Progress: Patient's effort to show active interest/effort to learn and generalize new skills and behaviors during this session was fair. Paramjit came to the group without his wheelchair and engaged in the movement therapy between standing and sitting. Will continue to participate in pain psychology and health education groups daily during participation in the [facility]. #1 Pain Generalized #2 Decline Functional Status [R53.81] Time spent with patient (in minutes): 30 Signed by: Gabriele Ferguson Jr., M.A., L.P.C.C. 12/07/2024 2:54 PM CDT * Group Note - Addy Kendrick, Ph.D., L.P., ABP - 12/07/2024 8:00 AM CDT The patient attended Pain Psychology Behavioral Health Group. Number of patients in group: 4. Group facilitated by : Rashad Kendrick, Ph.D., L.P., [facility] Topic and Goals of Group session: Mindful Observation of the Breath Goals: Patient will learn and practice mindfulness techniques to increase overall relaxation and reduce muscle tension associated with chronic pain symptoms. Therapeutic interventions: Experiential mindfulness exercise. Learning Methods Used: experiential practice. PHYSICAL EXAM Mental Status: Patient was attentive and engaged. Mood was calm. Affect was congruent. No self- harm ideation was endorsed. Thought process was within normal limits. Speech was linear and coherent. Behaviors were appropriately interactive with peers and cooperative with group metaphysics teacher. Insight and judgment wereadequate. ASSESSMENT / PLAN Evidence of Learning/Assessment of Progress: Patient's effort to show active interest/effort to learn and generalize new skills and behaviors during this session was good. He participated well in themindfulness exercise. He was encouraged to incorporate mindfulness into his daily relaxation practice routine. #1 Pain Generalized #2 Decline Functional Status [R53.81] Mr. Boyce will continue to participate in pain psychology and health education groups daily during his participation in the [facility]. He is progressing in PRC programming as expected. Time spent with patient (in minutes): 30 Signed by: Rashad Kendrick, Ph.D., L.P., ABPP 12/07/2024 2:59 PM CDT * Group Note - Gabriele Ferguson Jr., M.A., Natasha. - 12/07/2024 8:00 AM CDT The patient attended [facility] Group. Number of patients in group: 15. Group facilitated by : Gabriele Ferguson Jr., M.A., Ruben Topic and Goals of Group session: Time Based Pacing II Goals of Intervention: Patient will understand disadvantages of pain-based activity and advantages of time-based pacing for chronic pain. Patient will have knowledge of the use of cognitive behavioral techniques and planning activity in order to prevent pain escalation and improve function. Patientwill apply the PRC concepts to break the cycle of chronic pain through time-based pacing. Patients will create an example of how they can use time based pacing for an important activity. Therapeutic interventions: Discuss with patients introduction of concepts in lecture format, discussion, and handout. Learning Methods Used: class/group, printed materials, and psychologist guided discussion. PHYSICAL EXAM Mental Status: Patient was attentive and engaged in discussion. Mood was calm. Affect was congruent. No self-harm ideation was endorsed. Thought process was within normal limits. Speech was linear and coherent. Behaviors were appropriately interactive with peers and cooperative with group metaphysics teacher. Insight and judgment were adequate. ASSESSMENT / PLAN Evidence of Learning/Assessment of Progress: Patient's effort to show active interest/effort to learn and generalize new skills and behaviors during this session was good. He was in a wheelchair for the session. He shared a few comments with the large group and completed an example of how he can use pacing for the upcoming weekend. Will continue to participate in pain psychology and health education groups daily during participation in the [facility]. Progressing in PRC programming as expected. #1 Pain Generalized #2 Decline Functional Status [R53.81] Time spent with patient (in minutes): 60 Signed by: Gabriele Ferguson Jr., M.A., Pratima.PMackenzieCMackenzieCMackenzie 12/07/2024 3:04 PM CDT documented in this encounter Plan of Treatment Upcoming Encounters Date Type Department Care Team (Late st Contact Info) Description 01/07/2025 1:30 PM ORACLE REPORTS DEVELOPER Telemedicine Department of Urology in [place], [place] [address] [place] [phone] Danielle Pitt D.O. [address] [place] [phone] documented as of this encounter Visit Diagnoses Diagnosis Pain Generalized- Primary Decline Functional Status [R53.81] documented in this encounter Additional Health Concerns Assessment Noted Time PHQ-9 Depression Total Score: 5 07/07/19 24 9:17 PM CDT documented as of this encounter Care Teams Police Officer Crime Prevention Relationship Specialty Start Date End Date Elsewhere, Pcp PCP - General Internal Medicine 05/22/18 documented as of this encounter
--- OUTSIDE RECORDS SUMMARY | 2024-12-13 13:30 | XMS_ITS | Encounter Summary ---
Author Organization [facility] Address [address] [place] [id number] Care Team Providers Care Bowl Attendant Name Role Phone Elsewhere, Pcp Primary Care Provider Unavailabl e Reason for Visit * Appointment Request (Routine) - Closed Specialty Diagnoses / Procedures Referred By Ye lund Referred To Contact Sports Medicine Referral ID Status Reason Start Date Expiration Date Visits Re quested Visits Authorized [id number] Closed 12/13/2024 03/15/2026 1 1 Encounter Details Date Type Department Care Team (Late st Contact Info) Description 12/13/2024 1:30 PM WRAPPING CHECKER Telemedicine Department of Sports Medicine in [place], [place] [address] [place] [phone] Ahsan Talbert M.D., Ph.D. 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 I have a [facility] place to live 05/29/2024 Education Answer Date Recorded What is the highest level of school you have completed or the highest degree you have received? Some college, no degree 05/24/2020 Sex and Gender Information Value Date Recorded Sex Assigned at Male 10/29/2020 12:38 PM CDT Legal Sex Male 1:45 PM WRAPPING CHECKER Gender Identity Male 07/15/2019 8:59 AM CDT Sexual Orientation Straight 07/15/2019 8: 59 AM CDT documented as of this encounter Progress Notes * Ahsan Talbert M.D., Ph.D. - 12/13/2024 1:30 PM CST Images from the original note were not included. SUBJECTIVE CHIEF COMPLAINT/REASON FOR VISIT Return Visit HISTORY OF PRESENT ILLNESS Paramjit Boyce is a 24 y.o. male who is seen today for a followup visit regarding their right hip. Since our last visit, he has participated in PRC program which he states has gone well. However, he has ongoing right sided hip pain and instability. PATIENT REPORTED HIP SCORES: PRO Scores: 10/10/2024 12:42 PM 11/12/2024 2:15 PM 11/12/2024 2:16 PM PROMIS CAT - ORTHO PROMIS CAT: Physical function 38 (moderate dysfunction) PROMIS CAT: Pain interference 67 (moderate) 67 (moderate) REVIEW OF SYSTEMS Patient denies constitutional symptoms, including fever,chills, general malaise. OBJECTIVE PHYSICAL EXAMINATION General: The patient is cooperative, pleasant, no acute distress. Musculoskeletal: limited exam given video visit. ASSESSMENT / PLAN #1 Right hip pain Overall, the patient continues to have right hip pain. We discussed that regarding his right hip wemay proceed with right sided spica cast. However, this would be the same type of cast / length compared to his prior left spica cast. He understands again that this falls outside of usual practice. He has had good pain relief following cast placement to left hip. We will also plan to prescribe HKAFO brace with limited hip rotation to be used after cast placement. He would benefit with a recliningwheelchair during / after cast placement. We discussed risks of cast placement including the potential for skin breakdown, neurovascular injury, osteonecrosis, DVT, PE, arthrofibrosis / stiffness, con tinued pain, and other similar complications. They are in understanding and agreement with this plan. All questions answered at this time. PATIENT EDUCATION Ready to learn, no apparent learning barriers were identified; learning preferences include listening. Explained diagnosis and treatment plan; patient expressed understanding of the content. PING CHECKER documented in this encounter Plan of Treatment Upcoming Encounters Date Type Department Care Team (Late st Contact Info) Description 01/07/2025 1:30 PM WRAPPING CHECKER Telemedicine Department of Urology in [place], [place] [address] [place] [phone] Danielle Pitt D.O. [address] [place] [phone] documented as of this encounter Visit Diagnoses Diagnosis Pain Hip Right- Primary documented in this encounter Additional Health Concerns Assessment Noted Time PHQ-9 Depression Total Score: 5 07/07/19 24 9:17 PM CDT documented as of this encounter Care Teams Bowl Attendant Relationship Specialty Start Date End Date Elsewhere, Pcp PCP - General Internal Medicine 05/22/18 documented as of this encounter
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
--- OUTSIDE RECORDS SUMMARY | 2024-12-14 10:49 | XMS_ITS | Encounter Summary ---
Author Organization [facility] Address [address] [place] [id number] Care Team Providers Care Glass Unloading Equipment Tender Name Role Phone Elsewhere, Pcp Primary Care Provider Unavailabl e Reason for Referral * Outpatient (Routine) - Closed Specialty Diagnoses / Procedures Referred By Contac t Referred To Contact Diagnoses Pain Neck Procedures DX Cervical Spine 4-5 Views David Weir D.O. 200 [place] [address] Phone: tel: fax: [facility] Referral ID Status Reason Start Date Expiration Date Visits Re quested Visits Authorized [id number] Closed 11/01/2024 02/01/2026 1 1 N CHECKER * Outpatient (Routine) - Closed Specialty Diagnoses / Procedures Referred By Contac t Referred To Contact Diagnoses Pain Back Lumbar Procedures DX Lumbar Spine 4+ Views David Weir D.O. [address] [place] [address] Phone: tel: fax: [facility] Referral ID Status Reason Start Date Expiration Date Visits Re quested Visits Authorized [id number] Closed 11/01/2024 02/01/2026 1 1 N CHECKER Reason for Visit * Outpatient (Routine) - Closed Specialty Diagnoses / Procedures Referred By Ye t Referred To Contact Diagnoses Pain Back Lumbar Procedures DX Lumbar Spine 4+ Views David Weir D.O. 200 [place] [address] Phone: tel: fax: [facility] Referral ID Status Reason Start Date Expiration Date Visits Re quested Visits Authorized [id number] Closed 11/01/2024 02/01/2026 1 1 Encounter Details Date Type Department Care Team (Latest Contact Info) Description 12/14/2024 10:49 AM LINEN CHECKER - 12/14/2024 11:59 PM LINEN CHECKER Hospital Encounter Department of Radiology, [facility] in [place], [place] [address] [place] [phone] David Weir D.O. 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 Some college, no degree 05/24/2020 Sex and Gender Information Value Date Recorded Sex Assigned at Male 10/29/2020 12:38 PM CDT Legal Sex Male 1:45 PM LINEN CHECKER Gender Identity Male 07/15/2019 8:59 AM CDT Sexual Orientation Straight 07/15/2019 8: 59 AM CDT documented as of this encounter Medications at Time of Discharge acetaminophen (TylenoL) 325 mg tablet Take 650 mg by mouth every 6 (six) hours as needed. 07/04/[address] tablet Take 81 mg by mouth 2 (two) times a day. With meals bisacodyL (Dulcolax) 10 mg suppository Insert 10 mg into the rectum daily as needed. 07/13/2024 cyclobenzaprine (FlexeriL) 5 mg tablet Take 5 mg by mouth 3 (three) times a day as needed. 2024 diazePAM (Valium) 5 mg tablet Take 5 mg by mouth every 6 (six) hours as needed. 05/11/2024 famotidine (Pepcid) 40 mg tablet Take 20 mg by mouth 2 (two) times a day. 07/17/2024 FLUoxetine (PROzac) 20 mg capsule Take 20 mg by mouth every morning. 10/04/2024 gabapentin (Neurontin) 300 mg capsule Take 900 mg by mouth 3 (three) times a day. 07/13/2024 07/14/19 ibuprofen 400 mg tablet Take 400 mg by mouth every 6 (six) hours as needed. 07/04/2024 loratadine (Claritin) 10 mg tablet Take 10 mg by mouth daily. 07/04/2024 LORazepam (Ativan) 0.5 mg tablet Take 0.5 mg by mouth at bedtime as needed. 08/27/2024 methocarbamoL (Robaxin) 500 mg tablet Take 500 mg by mouth 3 (three) times a day as needed. 04/27/2024 metoclopramide (Reglan) 5 mg tablet Take 5 mg by mouth 3 (three) times a day before meals. 03/01/2024 mirtazapine (Remeron) 15 mg tablet Take 15 mg by mouth at bedtime. 10/04/2024 omeprazole (PriLOSEC) [address] capsule TAKE 1 CAPSULE(40 MG) BY MOUTH DAILY BEFORE A MEAL 07/17/2024 ondansetron ODT (Zofran-ODT) 4 mg disintegrating tablet DISSOLVE 1 TABLET ON THE TONGUE EVERY 8 HOURS NEEDED FOR NAUSEA OR VOMITING 12/02/2023 oxyBUTYnin (Ditropan-XL) 10 mg 24 hr tablet Take 10 mg by mouth daily. 08/28/2024 phenazopyridine (Pyridium) 200 mg tablet 08/26/2024 polyethylene glycol (Miralax) 17 gram powder packet Take 17 g by mouth daily as needed. 03/14/2024 promethazine (Phenergan) 12.5 mg tablet Take 12.5 mg by mouth. 05/15/2024 sulfamethoxazole-tr imethoprim (Bactrim DS) 800-160 mg per tablet Take 1 tablet by mouth 2 (two) times a day. 10/26/2024 tadalafiL (Cialis) 5 mg tablet Take 1 tablet (5 mg total) by mouth daily. 90 tablet 07/11/2023 tiZANidine (Zanaflex) 2 mg capsule Take 2 mg by mouth every 8 (eight) hours as needed. 08/27/2024 traZODone (DesyreL) 50 mg tablet Take 50 mg by mouth at bedtime. triamcinolone (Kenalog) 0.1 % cream Apply 1 Application topically as needed for rash. 06/05/2024 methylphenidate HCl (Metadate ER) 10 mg ER tablet Take 1 Tablet (10 mg) by mouth once daily. For 3 days, if tolerating well increase to 2 tablets by mouth once daily in the morning 30 tablet 11/29/2024 4:22 PM CDT 11/29/2024 12/19/19 documented as of this encounter Plan of Treatment Upcoming Encounters Date Type Department Care Team (Late st Contact Info) Description 01/07/2025 1:30 PM LINEN CHECKER Telemedicine Department of Urology in [place], [place] [address] [place] [phone] Danielle Pitt D.O. [address] [place] [address] documented as of this encounter Procedures Procedure Name Priority Date/Time Associated Diagnosis Comments DX LUMBAR SPINE 4+ VIEWS RAD - Routine (most inpatients and all outpatients) 12/14/2024 11:17 AM LINEN CHECKER Pain Back Lumbar DX CERVICAL SPINE 4-5 VIEWS RAD - Routine (most inpatients and all outpatients) 12/14/2024 11:17 AM LINEN CHECKER Pain Neck documented in this encounter Results * DX Lumbar Spine 4+ Views (12/14/2024 11:17 AM LINEN CHECKER) Anatomical Region Laterality Modality Lumbar Spine, Musculoskeleta l RST LOS, Neuroradiology ARZ LOS, Muskuloskeletal FLA LOS N/A Digital Radiography Impressions 12/14/2024 11:25 AM LINEN CHECKER Mild degenerative facet arthropathy at L5-S1. Remainder of the lumbar spine levels are unremarkable. No acute osseous abnormality. No significant change in alignment on flexion or extension views. Feeding tube projected over the abdomen. Narrative 12/14/2024 11:25 AM LINEN CHECKER EXAM: DX LUMBAR SPINE 4+ VIEWS Procedure Note Joe Blevins M.D. - 12/14/2024 EXAM: DX LUMBAR SPINE 4+ VIEWS IMPRESSION: Mild degenerative facet arthropathy at L5-S1. Remainder of the lumbarspine levels are unremarkable. No acute osseous abnormality. Nosignificant change in alignment on flexion or extension views. Feedingtube projected over the abdomen. David Weir D.O. IM DIAGNOSTIC IMAGING PROCE DURES Final Result * DX Cervical Spine 4-5 Views (12/14/2024 11:17 AM LINEN CHECKER) Anatomical Region Laterality Modality Cervical Spine, Musculoskele kyle RST LOS, Neuroradiology ARZ LOS, Muskuloskeletal FLA LOS N/A Digita l Radiography Impressions 12/14/2024 11:21 AM LINEN CHECKER Mild anterior subluxation C2 on C3, C3 on C4 on flexion which reduce on extension. No atlantoaxial subluxation. Cervical disc spaces are preserved. Narrative 12/14/2024 11:21 AM LINEN CHECKER EXAM: DX CERVICAL SPINE 4-5 VIEWS Procedure Note Lorenza Cuevas M.B., Ch.B. - 12/14/2024 EXAM: DX CERVICAL SPINE 4-5 VIEWS IMPRESSION: Mild anterior subluxation C2 on C3, C3 on C4 on flexion which reduce onextension. No atlantoaxial subluxation. Cervical disc spaces arepreserved. David Weir D.O. G DIAGNOSTIC IMAGING PROCE DURES Final Result documented in this encounter Visit Diagnoses Diagnosis Pain Back Lumbar Pain Neck documented in this encounter Additional Health Concerns Assessment Noted Time PHQ-9 Depression Total Score: 5 07/07/19 24 9:17 PM CDT documented as of this encounter Care Teams Glass Unloading Equipment Tender Relationship Specialty Start Date End Date Elsewhere, Pcp PCP - General Internal Medicine 05/22/18 documented as of this encounter
--- OUTSIDE RECORDS SUMMARY | 2025-01-04 10:58 | XMS_ITS | Clinical Summary ---
Author Organization [facility] Address [address] [place] [address] Care Team Providers Care Javascript Software Engineer Name Role Phone Elsewhere, Pcp Primary Care Provider Unavailabl e Source Comments Patient records contain information from all sites at [facility]. For routine questions regarding patient records, call [phone] during business hours, M-F 8:00 AM - 5:00 PM Central Time. Record requests for emergency care only can be directed to [phone] at any time.[facility] Allergies Active Allergy Reactions Criticality Noted Date Comments Dog Dander Itching 08/01/2024 House Dust Itching 08/01/2024 Medications * This document contains information received from the source organization and may not represent a complete record from that organization. tadalafiL (Cialis) 5 mg tablet Take 1 tablet (5 mg total) by mouth daily. 90 tablet 07/11/19 24 Active Additional Information Patient not taking.Reason: Other, Reported on 11/16/2024 ondansetron ODT (Zofran-ODT) 4 mg disintegrating tablet [...] (six) hours as needed. 05/12/19 25 Active methocarbamoL (Robaxin) 500 mg tablet [...] at bedtime as needed. 08/28/19 25 Active omeprazole (PriLOSEC) 40 mg [...] (three) times a day before meals. 03/01/19 25 Active oxyBUTYnin (Ditropan-XL) 10 mg 24 hr tablet Take 10 mg by mouth daily. 08/29/19 Active sulfamethoxazole- trimethoprim (Bactrim DS) 800-160 mg per tablet Take 1 tablet by mouth 2 (two) times a day. 10/27/19 Active FLUoxetine (PROzac) 20 mg capsule Take 20 mg by mouth every morning. 10/05/19 Active mirtazapine (Remeron) 15 mg tablet Take 15 mg by mouth at bedtime. 10/05/19 Active methylphenidate HCl (Metadate ER) 10 mg ER tablet Take 1 Tablet (10 mg) by mouth once daily. For 3 days, if tolerating well increase to 2 tablets by mouth once daily in the morning 30 tablet 4:22 PM CDT 11/30/19 025 Discontinue d(External Provider Cancel) Active Problems Problem Noted Date Diagnosed Date Pain Generalized 11/19/2024 Difficulty In Walking Not Elsewhere Classified 1 Decline Functional Status 11/16/2024 Chronic Pain Syndrome 11/16/2024 Unsteadiness Gait Disorder Non Orthopedic 2024 Weakness Leg Right 11/16/2024 Weakness Leg Left 11/16/2024 Repeated Falls 06/01/2024 Deformity Chest Acquired 01/19/2022 Headache Tension 09/24/2020 Myofascial Pain Syndrome 09/24/2020 Temporomandibular Joint Disorder 09/24/2020 Tinnitus Bilateral 09/24/2020 Hypermobility Joint 09/24/2020 Pain Wrist Left 07/01/2020 DeQuervain's Tenosynovitis 05/23/2020 Pain Hip Bilateral 12/12/2019 Overview (12/12/2019): Added automatically from request for surgery [id number] Tear Hip Labral Degenerative Right 12/12/2019 Overview (12/12/2019): Added automatically from request for surgery [id number] Klinefelter's Syndrome 07/25/2019 Primary Exertional Headache 04/18/2018 [...] organization. Date Type Department Care Team Description 12/19/2024 Clinical Communication Department of Urology in [address] [address] Kate Egan P.A.-C. Incontinence Supply Order 12/17/2024 Orders Only Department of Orthopedic Surgery in [address] [phone] Candida Lucero P.A.-C. Pain Hip Left (Primary Dx) 12/14/2024 10:49 AM SHEETER MACHINE OPERATOR - 12/14/2024 11:59 PM SHEETER MACHINE OPERATOR Hospital Encounter Department of Radiology, [facility] in [address] [phone] David Weir D.O. Pain Back Lumbar; Pain Neck Discharge Disposition: Home or Self Care 12/14/2024 9:00 AM SHEETER MACHINE OPERATOR Comprehensive Visit Department of Physical Medicine and Rehabilitation in [address] [phone] Tato Plasencia, Ph.D., L.P. 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 Pain Hip Right (Primary Dx) 12/07/2024 8:00 AM CDT Clinical Support [facility] in [address] [address] Hamilton Beebe, Ph.D., Pratima.Raymon. Addy Kendrick, Ph.D., L.P., ABPP Pain Generalized (Primary Dx); Decline Functional Status [R53.81] 12/06/2024 8:00 AM CDT Clinical Support [facility] in [address] [address] Hamilton Beebe, Ph.D., Pratima.Addy Weinstein, Ph.D., L.P., ABPP Pain Generalized (Primary Dx); Decline Functional Status [R53.81]; Chronic Pain Syndrome [G89.4] 12/05/2024 8:00 AM CDT Clinical Support [facility] in [address] [address] Hamilton Beebe, Ph.D., L.P. Pain Generalized (Primary Dx); Decline Functional Status [R53.81]; Chronic Pain Syndrome [G89.4] 12/04/2024 8:00 AM CDT Clinical Support [facility] in [address] [address] Hamilton Beebe, Ph.D., L.P. Pain Generalized (Primary Dx); Decline Functional Status [R53.81]; Fibromyalgia 12/03/2024 8:00 AM CDT Clinical Support [facility] in [address] [address] Hamilton Beebe, Ph.D., L.P. Pain Generalized (Primary Dx); Decline Functional Status [R53.81] 11/30/2024 4:00 PM CDT Comprehensive Visit Department of Physical Medicine and Rehabilitation in [place], [place] [address] [place] [phone] Emiliana Rouse M.D. María Bernstein C.H.Brandin., O.T. Pain Wrist Right (Primary Dx) 11/30/2024 8:00 AM CDT Clinical Support [facility] in [address] [address] Hamilton Beebe, Ph.D., Rodrigo Cox, Ph.D., L.P., ABPP Pain Generalized (Primary Dx); Decline Functional Status [R53.81]; Chronic Pain Syndrome [G89.4] 11/30/2024 Clinical Communication Department of Physical Medicine and Rehabilitation in [address] [address] María Bernstein C.H.T., O.T. 11/29/2024 8:00 AM CDT Clinical Support [facility] in [address] [address] Hamilton Beebe, Ph.D., Rodrigo Cox, Ph.D., L.P., ABPP Pain Generalized (Primary Dx); Decline Functional Status [R53.81]; Chronic Pain Syndrome [G89.4] 11/28/2024 8:00 AM CDT Clinical Support [facility] in [address] [address] Hamilton Beebe, Ph.D., L.P. Pain Generalized (Primary Dx); Decline Functional Status [R53.81]; Chronic Pain Syndrome [G89.4] 11/27/2024 8:00 AM CDT Clinical Support [facility] in [address] [address] Hamilton Beebe, Ph.D., L.P. Pain Generalized (Primary Dx); Decline Functional Status [R53.81]; Chronic Pain Syndrome [G89.4]; Pain Wrist Right 11/26/2024 8:00 AM CDT Clinical Support [facility] in [address] [address] Hamilton Beebe, Ph.D., L.P. Pain Generalized (Primary Dx); Decline Functional Status [R53.81]; Chronic Pain Syndrome [G89.4] 11/23/2024 8:00 AM CDT Clinical Support [facility] in [address] [address] Hamilton Beebe, Ph.D., L.P. Pain Generalized (Primary Dx); Decline Functional Status [R53.81]; Chronic Pain Syndrome [G89.4] 11/22/2024 8:00 AM CDT Clinical Support [facility] in [address] [address] Hamilton Beebe, Ph.D., L.P. Pain Generalized (Primary Dx); Decline Functional Status [R53.81]; Chronic Pain Syndrome [G89.4] 11/21/2024 8:00 AM CDT Clinical Support [facility] in [address] [address] Hamilton Beebe, Ph.D., L.P. Pain Generalized (Primary Dx); Decline Functional Status [R53.81]; Weakness Leg Right [M62.81]; Weakness Leg Left [M62.81]; Chronic Pain Syndrome [G89.4] 11/20/2024 8:00 AM CDT Clinical Support [facility] in [address] [address] Hamilton Beebe, Ph.D., L.P. Addy Kendrick, Ph.D., L.P., ABPP Pain Generalized (Primary Dx); Decline Functional Status [R53.81]; Chronic Pain Syndrome [G89.4]; Weakness Leg Left [M62.81]; Weakness Leg Right [M62.81] 11/19/2024 8:00 AM CDT Clinical Support [facility] in [address] [address] Hamilton Beebe, Ph.D., L.P. Addy Kendrick, Ph.D., L.P., ABPP Pain Generalized (Primary Dx); Decline Functional Status [R53.81]; Weakness Leg Right [M62.81]; Difficulty In Walking Not Elsewhere Classified [R26.2] 11/19/2024 Orders Only Department of Orthopedic Surgery in [place], [place] [address] [place] [phone] Candida Lucero P.A.-C. Pain Hip Right (Primary Dx) 11/16/2024 8:00 AM CDT Clinical Support [facility] in [address] [address] Hamilton Beebe, Ph.D., L.P. Chronic Pain Syndrome (Primary Dx); Decline Functional Status [R53.81]; Unsteadiness Gait Disorder Non Orthopedic [R26.81]; Weakness Leg Right [M62.81]; Weakness Leg Left [M62.81]; Pain Generalized [R52] 11/14/2024 Clinical Communication [facility] in [address] [address] Joaquim Bhardwaj R.N. Participation In [facility] Re[facility] 11/13/2024 2:30 PM CDT Telemedicine Department of Sports Medicine in [address] [phone] Ahsan Talbert M.D., Ph.D. Pain Hip Right (Primary Dx) 11/12/2024 Clinical Communication Department of Sports Medicine in [address] [phone] Ahsan Talbert M.D., Ph.D. 11/01/2024 1:00 PM CDT Telemedicine Department of Physical Medicine and Rehabilitation in [address] [phone] David Weir D.O. Pain Back Lumbar (Primary Dx); Pain Neck; Pain Back Thoracic; Kamari Danlos Syndrome Unspecified (HCC); Klinefelter's Syndrome (HCC); Spasm Muscle 10/24/2024 Orders Only Department of Orthopedic Surgery in [place], [place] [address] [place] [address] Candida Lucero P.A.-C. Pain Hip Right (Primary Dx) 10/23/2024 Orders Only Department of Orthopedic Surgery in [place], [place] [address] [place] [address] Candida Lucero P.A.-C. Pain Hip Right (Primary Dx) 10/22/2024 11:30 AM CDT Telemedicine Department of Urology in [place], [place] [address] [place] [address] Kate Egan P.A.-C. Retention Urinary (Primary Dx); Dysfunction Detrusor; Dysfunction Pelvic Floor Male 10/10/2024 2:30 PM CDT Procedure visit Department of Urology in [place], [place] [address] [place] [address] Kate Egan P.A.-C. Elliott, Daniel S, M.D. Retention Urinary (Primary Dx); Feeling Of Incomplete Bladder Emptying [R39.14] 10/10/2024 Orders Only Department of Urology in [place], [place] [address] [place] [address] Kate Egan P.A.-C. 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 I have a [facility] place to live 05/29/2024 Education Answer Date Recorded What is the highest level of school you have completed or the highest degree you have received? Some college, no degree 05/24/2020 Sex and Gender Information Value Date Recorded Sex Assigned at Male 10/29/2020 12:38 PM CDT Legal Sex Male 1:45 PM SHEETER MACHINE OPERATOR Gender Identity Male 07/15/2019 8:59 AM CDT Sexual Orientation Straight 07/15/2019 8: 59 AM CDT Last Filed Vital Signs Vital Sign Reading Time Taken Comments Blood Pressure 139/73 11/16/2024 3:28 PM CDT Pulse 82 11/16/2024 3:28 PM CDT Temperature 36.6 C (97.9 F) 11/16/2024 3:28 PM CDT Respiratory Rate 16 06/01/2024 7:45 AM CDT Oxygen Saturation 100% 11/16/2024 3:2 8 PM CDT Inhaled Oxygen Concentration - - Weight 80.2 kg (176 lb 11.2 oz) 11/16/2024 3:28 PM CDT Includes weight of hand cast and foot cast Height 188 cm (6' 2) 11/16/2024 3:28 PM CDT Body Mass Index 22.69 11/16/2024 3:28 PM CDT Plan of Treatment Upcoming Encounters Date Type Department Care Team (Late st Contact Info) Description 01/07/2025 1:30 PM SHEETER MACHINE OPERATOR Telemedicine Department of Urology in [place], [place] [address] [place] [address] Danielle Pitt D.O. [address] [place] [address] Health Maintenance Due Date Last Done Comments Hepatitis C Screening 2000 Depression Screening (Annual PHQ-2) 02/08/2024 COVID-19 Vaccine ( season) 2024 11/02/2023, 04/16/2022, 02/18/2021, Additional history exists Influenza Vaccine (#1) 2024 , 11/19/2022, 04/16/2022, [...] 08/18/2020 HPV Vaccines Completed 10/28/2020, 02/08, 10/19/2019 Medical Devices Implanted Type Area Hand Drawer In Helper Device Identifier Shelf Expiration Date Model / Serial / Lot Hardware E.G. Pins/Screws/R ods Hardware e.g. pins/screws/ rods Chest Wall [place] [address] Hip Mini 2.4x8.9 - [id number] Implanted:Qty : 1 on 02/13/2020 by Zoltan Haines M.D. at [facility] Hardware e.g. pins/screws/ rods Right: Hip Arthrex [id number] 11/06/2024 AR-2924PH S / / [id number] [place] [address] Hip Mini 2.4x8.9 - [id number] Implanted:Qty : 2 on 02/13/2020 by Zoltan Haines M.D. at [facility] Hardware e.g. pins/screws/ rods Right: Hip Arthrex [id number] 10/07/2024 AR-2924PH S / / [id number] [place] [address] Hip Mini 2.4x8.9 - [id number] Implanted:Qty : 1 on 02/13/2020 by Zoltan Haines M.D. at [facility] Hardware e.g. pins/screws/ rods Right: Hip Arthrex [id number] 07/07/2024 AR-2924PH S / / [id number] Kt Fix Intbrc Hnd Wrst - [id number] Implanted:Qty : 1 on 02/02/2021 by Jose Crawford M.D. at [facility] Hardware e.g. pins/screws/ rods Left: Wrist Arthrex [id number] 09/06/2025 AR-8978-[id number] P / / [id number] Procedures Procedure Name Priority Date/Time Associated Diagnosis Comments DX LUMBAR SPINE 4+ VIEWS RAD - Routine (most inpatients and all outpatients) 12/14/2024 11:17 AM SHEETER MACHINE OPERATOR Pain Back Lumbar DX CERVICAL SPINE 4-5 VIEWS RAD - Routine (most inpatients and all outpatients) 12/14/2024 11:17 AM SHEETER MACHINE OPERATOR Pain Neck URO URODYNAMIC STUDY (WITH FLOW) Routine 10/10/2024 2:30 PM CDT Retention Urinary from Last 3 Months Results * DX Lumbar Spine 4+ Views (12/14/2024 11:17 AM SHEETER MACHINE OPERATOR) Anatomical Region Laterality Modality Lumbar Spine, Musculoskeleta l RST LOS, Neuroradiology ARZ LOS, Muskuloskeletal FLA LOS N/A Digital Radiography Impressions 12/14/2024 11:25 AM SHEETER MACHINE OPERATOR Mild degenerative facet arthropathy at L5-S1. Remainder of the lumbar spine levels are unremarkable. No acute osseous abnormality. No significant change in alignment on flexion or extension views. Feeding tube projected over the abdomen. Narrative 12/14/2024 11:25 AM SHEETER MACHINE OPERATOR EXAM: DX LUMBAR SPINE 4+ VIEWS Procedure Note Joe Blevins M.D. - 12/14/2024 EXAM: DX LUMBAR SPINE 4+ VIEWS IMPRESSION: Mild degenerative facet arthropathy at L5-S1. Remainder of the lumbarspine levels are unremarkable. No acute osseous abnormality. Nosignificant change in alignment on flexion or extension views. Feedingtube projected over the abdomen. us David Weir D.O. IMG DIAGNOSTIC IMAGING PROCE DURES Final Result * DX Cervical Spine 4-5 Views (12/14/2024 11:17 AM SHEETER MACHINE OPERATOR) Anatomical Region Laterality Modality Cervical Spine, Musculoskele kyle RST LOS, Neuroradiology ARZ LOS, Muskuloskeletal FLA LOS N/A Digita l Radiography Impressions 12/14/2024 11:21 AM SHEETER MACHINE OPERATOR Mild anterior subluxation C2 on C3, C3 on C4 on flexion which reduce on extension. No atlantoaxial subluxation. Cervical disc spaces are preserved. Narrative 12/14/2024 11:21 AM SHEETER MACHINE OPERATOR EXAM: DX CERVICAL SPINE 4-5 VIEWS Procedure Note Lorenza Cuevas M.B., Ch.B. - 12/14/2024 EXAM: DX CERVICAL SPINE 4-5 VIEWS IMPRESSION: Mild anterior subluxation C2 on C3, C3 on C4 on flexion which reduce onextension. No atlantoaxial subluxation. Cervical disc spaces arepreserved. us David Weir D.O. IMG DIAGNOSTIC IMAGING RAGHU BAUTISTA Final Result * URO Urodynamic study (with flow) (10/10/2024 [...] have a low postvoid residual. us Kate M Bouquet P.A.-C. UROLOGY ORDERABLES Fi nal Result from Last 3 Months Insurance [facility] Care Teams Javascript Software Engineer Relationship Specialty Start Date End Date Elsewhere, Pcp PCP - General Internal Medicine 05/22/18
--- OUTSIDE RECORDS SUMMARY | 2025-01-04 10:58 | XMS_ITS ---
Author Organization [facility] Address [address] [place] [address] Care Team Providers Care Upholstery Restorer Name Role Phone Kei Eugene MD Unavailable [phone] Eliana Guerra MD Primary Care Provider [phone] Eliana Guerra MD Unavailable [phone] Eliana Guerra MD Unavailable [phone] Unavailable Unavailable Jody Obregon APRN AIR TWISTER WINDER Unavailable [phone] Efrain Crow PA-C Unavailable [phone] Enteral Status:Enrolled (Active) Start date:03/05/2024 Enrollment date:03/14/2024 Linked medications:Nutritional Supplements (Active) Linked problems:Epigastric abdominal pain (Active), Nausea (Active), Weight loss (Active) Related program episode:Home Infusion (Active) Continued Care and Services Coordination
--- OUTSIDE RECORDS SUMMARY | 2025-01-04 10:58 | XMS_ITS ---
Author Organization [facility] Address [facility] [place] [address] Care Team Providers Care Fisher Diving Name Role Phone Kei Eugene MD Unavailable [phone] Eliana Guerra MD Primary Care Provider [phone] Eliana Guerra MD Unavailable [phone] Eliana Guerra MD Unavailable [phone] Unavailable Unavailable Charisma Obregonyvonne SNOW EGG SETTER Unavailable [phone] Efrain Crow PA-C Unavailable [phone] Home Infusion Status:Enrolled (Active) Start date:03/05/2024 Enrollment date:03/14/2024 Enrollment reason:Identified using referral data Related service episodes:Enteral (Active) Case Team Name Relationship Phone Anastacia Rodriguez RD I Registered Dietitian Continued Care and Services Coordination This section includes services coordinated for Home Infusion. [facility] Name Services Phone [facility] ENTER[facility] ONLY Home Nursing [phone]
--- OUTSIDE RECORDS SUMMARY | 2025-01-04 10:58 | XMS_ITS | Encounter Summary ---
Author Organization [facility] Address [address] [place] [address]. [place] [address] Care Team Providers Care Set Designer Name Role Phone Kei Eugene MD Unavailable [phone] Eliana Guerra MD Primary Care Provider [phone] Eliana Guerra MD Unavailable [phone] Eliana Guerra MD Unavailable [phone] Unavailable Unavailable Jody Obregon APRN HABILITATION ASSISTANT Unavailable [phone] Jody Obregon APRN HABILITATION ASSISTANT Unavailable [phone] Efrain Crow PA-C Unavailable [phone] Regina Monroy RN Unavailable Unavailabl e Encounter Details Date Type Department Care Team (Late st Contact Info) Description 03/26/2024 Home Infusion [facility] [address] [address] Social History Tobacco Use [...] on file Legal Sex Male 9:18 AM COMMERCIAL 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 BUILDING ARCHITECT Gender Identity Not on file Sexual Orientation Not on file documented as of this encounter Progress Notes * Anastacia Rodriguez, RD - 03/26/2024 8:49 AM CST [facility] Nutrition Follow up Anthropometrics/Weight Goals [...] per pt Enteral Nutrition Orders Enteral Formula: STEARCLEAR Standard 1.4 Rate/Frequency: 70ml/hr--up to 5 cartons/day [...] to surgery April [address], [facility], [facility] Dietitian ERCIAL GREEN BUILDING ARCHITECT documented in this encounter Plan of Treatment Scheduled Procedures Name Priority Associated Diagnoses Date/Ti me SURGICAL EXTRACTION, TOOTH Chronic pericoronitis documented as of this encounter Visit Diagnoses Diagnosis Weight loss- Primary Loss of weight documented in this encounter Additional Health Concerns Infection Onset Date Last Indicated Resolved Time ESBL Comment:Added from external infection. Source: [facility]. 06/14/2024 documented as of this encounter Care Teams Set Designer Relationship Specialty Start Date End Date Eliana Guerra MD [facility] [address] [place] [address] PCP - General Family Medicine 03/04/24 Kei Eugene MD [address] [place] [address] Assigned Musculoskeletal Provider 03/01/24 Eliana Guerra MD [facility] [address] [place] [address] Home Infusion Following Provider Family Medicine 03/11/24 Eliana Guerra MD [facility] [address] [place] [address] Home Infusion Following Provider Family Medicine 03/14/[address] [facility] Registered Dietitian Dietitian 03/14/24 Jody Obregon APRN HABILITATION ASSISTANT [facility] [address] [place] [place] [address] Home Infusion Following Provider 03/20/24 04/04/24 Jody Obregon APRN HABILITATION ASSISTANT [facility] [address] [place] [place] [address] Home Infusion Following Provider 03/14/24 Efrain Crow PA-C [facility] [address] [place] [address] Home Infusion Following Provider Gastroenterology 06/25/24 Regina Monroy, KASIE [facility] [address] [place] [address] [facility] Resource Team 07/16/24 07/17/24 documented as of this encounter
--- OUTSIDE RECORDS SUMMARY | 2025-01-04 10:58 | XMS_ITS | Encounter Summary ---
Author Organization [facility] Address [address] [place] [address] Care Team Providers Care Chick Room Supervisor Name Role Phone Kei Eugene MD Unavailable [phone] Eliana Guerra MD Primary Care Provider [phone] Eliana Guerra MD Unavailable [phone] Eliana Guerra MD Unavailable [phone] Unavailable Unavailable Jody Obregon APRN TAPPER SHANK Unavailable [phone] Efrain Crow PA-C Unavailable [phone] Regina Monroy RN Unavailable Unavailabl e Encounter Details Date Type Department Care Team (Late st Contact Info) Description 04/05/2024 Home Infusion [facility] [address] [address] Anastacia Rodriguez, JESUS ALBERTO Social History Tobacco [...] on file Legal Sex Male 9:18 AM LOCUM TENENS Gender Identity Not on file Sexual Orientation Not on file documented as of this encounter Progress Notes * Anastacia Rodriguez, RD - 04/05/2024 11:38 AM CST [facility] Nutrition Follow up Anthropometrics/Weight Goals Height: 1.88 m (6' 2.02) Weight: 65.7 kg (144 lb 14.4 oz) IBW Male (kg): 82.24 BMI (kg): 17.97 FHI Dosing Weight: 64.3 kg (141 lb 12.1 oz) Weight history / comments:: 04/05/24: 143 lbs per pt Current Nutrition Orders Oral Diet: 500-1000kcal/day per pt Enteral Nutrition Orders Enteral Formula: [employer] Standard 1.4 Rate/Frequency: 70ml/hr--up to 5 cartons/day [...] and tolerance Anastacia Rodriguez RD, CNSC, LD [facility] Dietitian M TENENS documented in this encounter Plan of Treatment Scheduled Procedures Name Priority Associated Diagnoses Date/Ti me SURGICAL EXTRACTION, TOOTH Chronic pericoronitis documented as of this encounter Visit Diagnoses Not on filedocumented in this encounter Additional Health Concerns Infection Onset Date Last Indicated Resolved Time ESBL Comment:Added from external infection. Source: [facility]. 06/14/2024 documented as of this encounter Care Teams Chick Room Supervisor Relationship Specialty Start Date End Date Elaina Guerra MD [facility] [place] [address] PCP - General Family Medicine 03/04/24 Kei Eugene MD [facility] [place] [address] Assigned Musculoskeletal Provider 03/01/24 Eliana Guerra MD [facility] [address] [place] [address] Home Infusion Following Provider Family Medicine 03/11/24 Eliana Guerra MD [facility] [address] [place] [address] Home Infusion Following Provider Family Medicine 03/14/[address] [facility] Registered Dietitian Dietitian 03/14/24 Jody Obregon APRN TAPPER SHANK Home Infusion Following Provider 03/14/24 Efrain Crow PA-C [facility] [address] [address] Home Infusion Following Provider Gastroenterology 06/25/24 Regina Monroy RN [facility] [address] [place] [address] [facility] Resource Team 07/16/24 07/17/24 documented as of this encounter
--- OUTSIDE RECORDS SUMMARY | 2025-01-04 10:58 | XMS_ITS | Encounter Summary ---
Author Organization [facility] Address [address] [place] [address]. [place] [address] Care Team Providers Care Departure Clerk Name Role Phone Kei Eugene MD Unavailable [phone] Eliana Guerra MD Primary Care Provider [phone] Eliana Guerra MD Unavailable [phone] Eliana Guerra MD Unavailable [phone] Unavailable Unavailable Jody Obregon APRN TIGHTENING MACHINE OPERATOR Unavailable [phone] Efrain Crow PA-C Unavailable [phone] Encounter Details Date Type Department Care Team (Late st Contact Info) Description 11/09/2024 [facility] [address] [place] [address] [place], [place] [phone] Erica Barraza APRN TIGHTENING MACHINE OPERATOR [address] [place] [id number] Social History Tobacco Use Types Packs/Day Years [...] 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 Source: [facility]. 06/14/2024 documented as of this encounter Care Teams Departure Clerk Relationship Specialty Start Date End Date Eilana Guerra MD [address] [facility] [address] [place] [address] PCP - General Family Medicine 03/04/24 Kei Eugene MD [address] [place] [address] Assigned Musculoskeletal Provider 03/01/24 Eliana Guerra MD [facility] [address] [place] [address] Home Infusion Following Provider Family Medicine 03/11/24 Eliana Guerra MD [facility] [address] [place] [address] Home Infusion Following Provider Family Medicine 03/14/[address] [facility] Registered Dietitian Dietitian 03/14/24 Jody Obregon APRN TIGHTENING MACHINE OPERATOR Home Infusion Following Provider 03/14/24 Efrain Crow PA-C [facility] [address] [address] Home Infusion Following Provider Gastroenterology 06/25/24 documented as of this encounter
--- OUTSIDE RECORDS SUMMARY | 2025-01-04 10:58 | XMS_ITS | Encounter Summary ---
Author Organization [facility] Address [address] [place] [address]. [place] [address] Care Team Providers Care Hazardous Materials Analyst Name Role Phone Kei Eugene MD Unavailable [phone] Eliana Guerra MD Primary Care Provider [phone] Eliana Guerra MD Unavailable [phone] Eliana Guerra MD Unavailable [phone] Unavailable Unavailable Jody Obregon APRN DELINQUENCY COUNSELOR Unavailable [phone] Jody Obregon APRN DELINQUENCY COUNSELOR Unavailable + [phone] Efrain Crow PA-C Unavailable [phone] Regina Monroy RN Unavailable Unavailabl e Encounter Details Date Type Department Care Team (Late st Contact Info) Description 04/03/2024 Home Infusion [facility] [address] [address] Social History [...] on file 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 Source: [facility]. 06/14/2024 documented as of this encounter Care Teams Hazardous Materials Analyst Relationship Specialty Start Date End Date Eliana Guerra MD [id number] [place] [address] PCP - General Family Medicine 03/04/24 Kei Eugene MD [id number] [place] [address] Assigned Musculoskeletal Provider 03/01/24 Eliana Guerra MD [facility] [address] [place] [address] Home Infusion Following Provider Family Medicine 03/11/24 Eliana Guerra MD [facility] [address] [place] [address] Home Infusion Following Provider Family Medicine 03/14/[address] [facility] Registered Dietitian Dietitian 03/14/24 Jody Obregon APRN DELINQUENCY COUNSELOR [facility] [address] [facility] [place] [address] Home Infusion Following Provider 03/20/24 04/04/24 Jody Obregon APRN DELINQUENCY COUNSELOR [facility] [address] [place] [address] Home Infusion Following Provider 03/14/24 Efrain Crow PA-C [facility] [address] [place] [address] Home Infusion Following Provider Gastroenterology 06/25/24 Regina Monroy, KAS[place] [facility] [address] [place] [address] [facility] Resource Team 07/16/24 07/17/24 documented as of this encounter
--- OUTSIDE RECORDS SUMMARY | 2025-01-04 10:58 | XMS_ITS | Encounter Summary ---
Author Organization [facility] Address [address], [place] [address] Care Team Providers Care Supervisor Sound Technician Name Role Phone Eliana Guerra MD Primary Care Provider [phone] Reason for Visit * Reason Comments APPOINTMENT REQUEST Encounter Details Date Type Department Care Team ([facility] st Contact Info) Description 09/13/2024 Telephone Orthopedics at [address] [address] Anahi Van MD [address] [place] [address] APPOINTMENT REQUEST Social History Tobacco Use Types Packs/Day Years Used Date Smoking Tobacco: Never Smokeless Tobacco: Never Alcohol Use Standard Drinks/Week Comments Yes 0 (1 standard drink = 0.6 oz pur e alcohol) occasional [facility] Utilities Answer Date Recorded In the past 12 months has [facility] [employer], gas, oil, or water [employer] threatened to shut off services in your [...] any time in the past 12 m [facility], were you homeless or living in a fpc (including now)? 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 Yes [Credit Card Associate/Biomedical Engineering Technician: Relay to patient; We make every effort to get back to you sameday, however it may take 1-2 business days depending on the nature of the communication.] Juan Pablo White 09/13/2024, 11:03 AM documented in this encounter Plan of Treatment Upcoming Encounters Date Type Department Care Team (Late st Contact Info) Description 01/11/2025 9:40 AM BARIATRIC COORDINATOR [facility]ointment [facility] Medicine [address] [place] [address] Roz Corw, DO [address] [place] [id number] 01/22/2025 10:40 AM BARIATRIC COORDINATOR Appointment Orthopedics at [address] [place] [address] Anahi Van MD [address] [place] [address] documented as of this encounter Visit Diagnoses Not on filedocumented in this encounter Care Teams Supervisor Sound Technician Relationship Specialty Start Date End Date Eliana Guerra MD [address] [place] [address] PCP - General Family Practice 12/04/19 documented as of this encounter
--- OUTSIDE RECORDS SUMMARY | 2025-01-04 10:59 | XMS_ITS | Clinical Summary ---
Author Organization [facility] Address [address] [place] [id number] Care Team Providers Care Consulting Application Engineer Name Role Phone Eliana Guerra MD Primary Care Provider [phone] Allergies Active Allergy Reactions Criticality Noted Date Comments Dog Dander Itching 08/01/2024 House Dust Itching 08/01/2024 Unlisted Allergen (Include Detail In Comments) Other - Describe In Comment Field 04/13/2024 HAS AN ALLERGY TO SOME KIND OF SUGAR HAVING TESTING TO DETERMINE TYPE Medications tadalafiL (CIALIS) 5 mg tablet Take 5 mg by mouth. 06/20/19 22 Active Diaper,Brief, Adult,Disposable Indications:Noct urnal enuresis For home use. 90 Each 12/20/19 24 Active metoclopramide (REGLAN) 5 mg tabletIndication s:Early satiety,Delayed gastric emptying Take 1 Tablet (5 mg) by mouth three times daily before meals. 270 Tablet 03/01/19 25 Active polyethylene glycol (MIRALAX; GLYCOLAX) 17 g per packet packet Mix 17 g in liquid then take by mouth once daily if needed. 03/14/19 25 Active omeprazole 40 mg Delayed-Release capsuleIndicatio ns:Gastric reflux TAKE 1 CAPSULE(40 MG) BY MOUTH DAILY BEFORE A MEAL 90 Capsule 07/18/19 25 Active famotidine 40 mg tabletIndication s:Heart burn Take 0.5 Tablets (20 mg) by mouth two times daily. 90 Tablet 1 07/18/19 25 Active loratadine 10 mg tablet Take 1 Tablet (10 mg) by mouth once daily. 07/18/19 25 Active tiZANidine (ZANAFLEX) 2 mg capsule Take 1 Capsule (2 mg) by mouth every 8 hours if needed for Muscle Spasm (scheduled TID). 08/28/19 25 Active oxybutynin XL (DITROPAN XL) 10 mg CR tabletIndication s:Complicated UTI (urinary tract infection),Urina ry retention,Garza catheter in place Take 1 Tablet (10 mg) by mouth once daily. 30 Tablet 08/29/19 25 Active acetaminophen-co deine (TYLENOL #3) 300-30 mg per tabletIndication s:Right hand pain,Contusion of right hand including fingers, initial encounter,Hand sprain, right, initial encounter Take 1 Tablet by mouth every 4 hours if needed for Pain. Max acetaminophen dose: 4000mg in 24 hrs. 20 Tablet 11/14/19 25 Active methylphenidate ER (Concerta) 18 mg extended release tabletIndication s:Attention deficit hyperactivity disorder (ADHD), predominantly inattentive type Take 1 Tablet (18 mg) by mouth once daily. 30 Tablet 01/01/20 25 025 Active FLUoxetine (PROZAC) 20 mg capsuleIndicatio ns:Moderate episode of recurrent major depressive disorder (HC) Take 1 Capsule (20 mg) by mouth once daily in the morning. 90 Capsule 1 10/05/19 25 025 Discontinu ed(*Med complete/R egimen complete/L evel of care change) mirtazapine (REMERON) 15 mg tabletIndication s:Moderate episode of recurrent major depressive disorder (HC) Take 1 Tablet (15 mg) by mouth at bedtime. 90 Tablet 1 10/05/19 25 025 Discontinu ed(*Med complete/R egimen complete/L evel of care change) methylphenidate HCl (RITALIN ER) 10 mg Extended-Release tabletIndication s:Attention deficit hyperactivity disorder (ADHD), predominantly inattentive type Take 1 Tablet (10 mg) by mouth once daily. For 3 days, if tolerating well increase to 2 tablets by mouth once daily in the morning 30 Tablet 11/30/19 25 025 Discontinu ed(*Med complete/R egimen complete/L evel of care change) methylphenidate HCl (Ritalin LA) 20 mg SR capsuleIndicatio ns:Attention deficit hyperactivity disorder (ADHD), predominantly inattentive type Take 1 Capsule (20 mg) by mouth once daily. 30 Capsule 12/19/19 25 025 Discontinu ed(*Med complete/R egimen complete/L evel of care change) trimethoprim-sul famethoxazole 160-800 mg tabIndications:C omplicated UTI (urinary tract infection) Take 1 Tablet by mouth two times daily for 7 days. 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 Chronic back pain 04/21/2023 Klinefelter syndrome 07/25/2019 Exertional headache 04/18/2018 Cell chromosome examination abnormal 03/23/2018 Congenital pes planus 03/23/2018 Atrophy of testis 03/23/2018 Tall stature 03/23/2018 Connective tissue disorder 01/04/2018 Underweight in adolescence 01/04/2018 Scoliosis 01/04/2018 Congenital pectus excavatum 12/29/2013 Encounters Date Type Department Care Team Description 01/04/2025 Nurse Triage [facility] Centralized Nurse Triage Eliana Guerra MD Penis/Scrotum Problem 12/31/2024 8:00 AM NEONATAL SURGEON Office Visit [facility] [address] [place] [address] Zoila Manriquez NP Medication Management; Follow Up (going good) 12/31/2024 Telephone [facility] [address] [place] [address] Zoila Manriquez NP Error-please disregard 12/30/2024 Travel 12/29/2024 12:00 PM NEONATAL SURGEON Office Visit [facility] [address] [place] [phone] Polina Capellan NP Urinary Problem (Dysuria, fever, body aches, nausea/Does self cath related to urinary retention issues) 12/29/2024 Travel 12/28/2024 9:35 AM NEONATAL SURGEON E-Visit [facility] [address] [facility] [place] [address] Eliana Guerra MD eVisit for Urinary Tract Infection 12/26/2024 Orders Only [facility] [address] [place] [address] Yossi Hatch PA <No scans attached> 12/21/2024 Orders Only [facility] [address] [facility] [place] [address] Eliana Guerra MD 1 scan: (1-Ord) NFLD-EKG-12/19/24 12/20/2024 Telephone [facility] [address] [place] [address] Eliana Guerra MD 12/19/2024 11:15 AM NEONATAL SURGEON Office Visit [facility] [address] [place] [address] Eliana Guerra MD Follow Up; Concerns 12/19/2024 Travel 12/12/2024 Medical Messaging [facility] [address] [place] [address] Jose Pinto PA Hands 11/15/2024 1:00 PM CDT Office Visit [facility] [address] [facility] [place] [address] Zoila Manriquez NP Medication Management; Follow Up 11/14/2024 Travel 11/13/2024 9:30 AM CDT Office Visit [facility] [address] [place] [address] Jose Pitno PA Hand Pain/problem (right hand) 11/13/2024 Travel 11/12/2024 3:00 PM CDT Telemedicine [facility] [address] [facility] [place] [address] Kwame Yanez, PhD, LP Telehealth (Psychological Testing) 11/12/2024 12:45 PM CDT Telemedicine [address] [phone] Una Apodaca, Bradley, LP Individual Therapy; Telehealth 11/12/2024 Office Visit [address] [phone] Una Apodaca, Bradley, LP Trmt Plan 11/12/2024 Travel 11/11/2024 Orders Only [facility] Scanner 1 scan: (1-Ord) BABITA, XR HAND RT MIN 3V, 11/11/2024 11/07/2024 Orders Only [facility] Scanner 1 scan: (1-Ord) BABITA, HIP RT W CON, 11/07/2024 11/07/2024 Orders Only [facility] Scanner 1 scan: (1-Ord) BABITA, FL ARTHROGRAM HIP RT, 11/07/2024 11/07/2024 Patient Outreach [facility] Care Management Team Medical Case Management Ambulatory [facility] [place], [place] [id number] Nabila Dorsey [facility] Coordination 10/26/2024 Orders Only [facility] Scanner 1 scan: (1-Ord) BABITA, CT ABDOMEN PELVIS WO CON, 10/26/2024 10/22/2024 3:00 PM CDT Telemedicine [facility] [address] [place] [phone] Kwame Yanez, PhD, LP Telehealth 10/04/2024 9:30 AM CDT Office Visit [facility] [address] [place] [address] Zoila Manriquez NP Medication Management (Things are going fantastic) 10/04/2024 Telephone [facility] [address] [place] [address] Eliana Guerra MD 10/04/2024 Travel from Last 3 Months Immunizations Immunization Administration Dates Next Due COVID-19 VACCINE SPIKEVAX (M ODERNA 50MCG/0.5ML) 12YO+ PFS 11/02/2023 COVID-19 vaccine (Moderna 100mcg/0.5mL) MD SELENAV 08/15/2020,05/29/2020 COVID-19 vaccine (GreatCall NTech 30mcg/0.3mL) 12YO+ BIVALENT PF, MDV 04/16/2022 COVID-19 vaccine (ZeroVM-Bio NTech 30mcg/0.3mL) PF, MDV 02/18/2021 DTaP 11/11/2004, [...] Answer Date Recorded PHQ-2 TOTAL SCORE 1 12/30/2024 Social Connections Answer Date Recorded Do you often feel lonely or isolated from those around you? 4 05/15/2024 Alcohol Use Answer Date Recorded How often do you have a drink containing alcohol ? 1 12/19/2024 How many drinks containing a lcohol do you have on a typical day when you are drinking? 0 12/19/2024 How often do you have five or more drinks on one occasion? 0 12/19/2024 Financial Resource Strain Answer Date R ecorded [...] on file Legal Sex Male 5:44 AM NEONATAL SURGEON Gender Identity Not on file Sexual Orientation Not on file Occupation Industry Job Start Date Job End Date Student Not on file Not on file Not on file Obstetrics History Last Filed Vital Signs Vital Sign Reading Time Taken Comments Blood Pressure 125/82 12/31/2024 7:53 AM NEONATAL SURGEON Pulse 84 12/31/2024 7:53 AM NEONATAL SURGEON Temperature 36.6 C (97.9 F) 12/29/2024 12:05 PM NEONATAL SURGEON Respiratory Rate 16 12/29/2024 12:05 PM NEONATAL SURGEON Oxygen Saturation 97% 12/29/2024 12:05 PM NEONATAL SURGEON Inhaled Oxygen Concentration - - Weight 74.5 kg (164 lb 3.2 oz) 12/31/2024 7:53 A M NEONATAL SURGEON Height 190 cm (6' 2.8) 04/12/2024 11:25 AM NEONATAL SURGEON Body Mass Index 20.63 04/12/2024 11:25 AM NEONATAL SURGEON Plan of Treatment Upcoming Encounters Date Type Department Care Team (Late st Contact Info) Description 01/18/2025 9:00 AM NEONATAL SURGEON Ancillary Procedure [facility] [address] [place] [address] 01/25/2025 9:35 AM NEONATAL SURGEON Office Visit [facility] [address] [place] [address] Eliana Guerra MD [address] [place] [address] 03/19/2025 9:30 AM NEONATAL SURGEON Office Visit [facility] [address] [place] [address] Gaurav Barbosa MD [address] [place] [id number] [place] [address] Health Maintenance Due Date Last Done Comments COVID-19 vaccine series ( season) 2024 11/02/2023, 04/16/2022, 02/18/2021, Additional history exists Influenza Vaccine (#1) 2024 , 11/19/2022, 04/16/2022, Additional history exists BMI (ht and wt on same day) for age 18+ 04/12/2025 04/12/2024, 03/27/2024, 11/02/2023, Additional history exists Depression screening for age 12+ 12/31/2025 12/31/2024, 12/30/2024, 11/15/2024, Additional history exists Tetanus booster 11/19/2032 11/19/2022, [...] 08/18/2020 HPV series for age 9-45 Completed 10/29/19, 03/07/2020, 10/19/2019 Procedures Procedure Name Priority Date/Time Associated Diagnosis Comments CBC WITH AUTO DIFFERENTIAL STAT 12/29/2024 12:44 PM NEONATAL SURGEON Dysuria BASIC METABOLIC PANEL STAT 12/29/2024 12:44 PM NEONATAL SURGEON Dysuria CBC WITH AUTO DIFFERENTIAL STAT 12/29/2024 12:44 PM NEONATAL SURGEON Dysuria URINALYSIS MICROSCOPIC STAT 12:10 PM NEONATAL SURGEON Dysuria URINE CULTURE Routine 12/29/2024 12:10 PM NEONATAL SURGEON Dysuria UA W/ SEDIMENT EXAM REFLEXED PER CRITERIA STAT 12/29/2024 12:10 PM NEONATAL SURGEON Dysuria MO READING EKG - NO CHARGE, COMP ONLY Routine 12/21/2024 4:30 PM NEONATAL SURGEON Syncope, unspecified syncope type Dizziness Tachycardia EKG 12 LEAD Routine 12/21/2024 4:30 PM NEONATAL SURGEON Syncope, unspecified syncope type Dizziness Tachycardia URINALYSIS REFLEX NOTE ([facility] REFLEX ONLY) Routine 12/19/2024 12:55 PM NEONATAL SURGEON Dysuria Underactive detrusor muscle of urinary bladder CBC WITH AUTO DIFFERENTIAL Routine 12/19/2024 12:55 PM NEONATAL SURGEON Dysuria Underactive detrusor muscle of urinary bladder CBC WITH AUTO DIFFERENTIAL Routine 12/19/2024 12:55 PM NEONATAL SURGEON Dysuria Underactive detrusor muscle of urinary bladder COMP METABOLIC PANEL Routine 12/19/2024 12:55 PM NEONATAL SURGEON Dysuria Underactive detrusor muscle of urinary bladder URINE CULTURE Routine 12/19/2024 12:55 PM NEONATAL SURGEON Dysuria Underactive detrusor muscle of urinary bladder UA W/ SEDIMENT EXAM REFLEXED PER CRITERIA Routine 12/19/2024 12:55 PM NEONATAL SURGEON Dysuria Underactive detrusor muscle of urinary bladder COMPLIANCE DRUG ANALYSIS Routine 11/15/2024 1:47 PM CDT Attention deficit hyperactivity disorder (ADHD), predominantly inattentive type SCAN-RADIOLOGY REPORT 11/11/2024 12:00 AM CDT SCAN-MRI INTERPRETATION 11/07/2024 12:00 AM CDT SCAN-DIAGNOSTIC REPORT 12:00 AM CDT SCAN-CT INTERPRETATION 12:00 AM CDT EXPOSURE (BBF) RAPID HIV Routine 08/18/2020 8:10 AM CDT Employee exposure to blood EXPOSURE (BBF) ANTI HCV Routine 08/18/2020 8:10 AM CDT Employee exposure to blood from Last 3 Months or Most Recently Relevant to Health Maintenance Results * CBC WITH AUTO DIFFERENTIAL (12/29/2024 12:44 PM NEONATAL SURGEON) Only the most recent of2 resultswithin the time period is included. WHITE BLOOD COUNT 6.4 4.5 - 11.0 thou/cu mm 12/29/2024 1:25 PM [facility] RED BLOOD COUNT 5.50 4.30 - 5.90 mil/cu mm 12/29/2024 1:25 PM [facility] HEMOGLOBIN 15.5 13.5 - 17.5 g/dL 12/29/2024 1:25 PM [facility] HEMATOCRIT 45.7 37.0 - 53.0 % 12/29/2024 1:25 PM [facility] MCV 83 80 - 100 fL 12/29/2024 1:25 PM [facility] MCH 28.2 26.0 - 34.0 pg 12/29/2024 1:25 PM [facility] MCHC 33.9 32.0 - 36.0 g/dL 12/29/2024 1:25 PM [facility] RDW 13.2 11.5 - 15.5 % 12/29/2024 1:25 PM [facility] PLATELET COUNT 246 140 - 440 thou/cu mm 12/29/2024 1:25 PM [facility] MPV 9.8 6.5 - 11.0 fL 12/29/2024 1:25 PM [facility] % NEUT 59.1 % 12/29/2024 1:25 PM [facility] % LYMPH 30.1 % 12/29/2024 1:25 PM [facility] % MONO 8.2 % 12/29/2024 1:25 PM [facility] % EOS 2.3 % 12/29/2024 1:25 PM [facility] % BASO 0.3 % 12/29/2024 1:25 PM [facility] ABSOLUTE NEUTROPHILS 3.8 1.7 - 7.0 thou/cu mm 12/29/2024 1:25 PM [facility] ABSOLUTE LYMPHOCYTES 1.9 0.9 - 2.9 thou/cu mm 12/29/2024 1:25 PM [facility] ABSOLUTE MONOCYTES 0.5 <0.9 thou/cu mm 12/29/2024 1:25 PM [facility] ABSOLUTE EOSINOPHILS 0.2 <0.5 thou/cu mm 12/29/2024 1:25 PM [facility] ABSOLUTE BASOPHILS 0.0 <0.3 thou/cu mm 12/29/2024 1:25 PM [facility] Blood BLOOD SPECIMEN / Unknown [facility] Collect / Unknown 12/29/2024 12:44 PM NEONATAL SURGEON 12/29/2024 1:07 PM [facility] us Polina Capellan NP HEMATOLOGY Beatriz l Result [facility] [address] [place] [address] * STAT Basic Metabolic Panel BMP (12/29/2024 12:44 PM NEONATAL SURGEON) SODIUM 142 136 - 145 mmol/L 12/29/2024 2:10 PM [facility] POTASSIUM 4.3 3.5 - 5.1 mmol/L 12/29/2024 2:10 PM [facility] CHLORIDE 103 98 - 107 mmol/L 12/29/2024 2:10 PM [facility] CO2,TOTAL 28 22 - 29 mmol/L 12/29/2024 2:10 PM [facility] ANION GAP 11 5 - 18 12/29/2024 2:10 PM [facility] GLUCOSE 88 70 - 99 mg/dL 12/29/2024 2:10 PM [facility] CALCIUM 10.1 8.8 - 10.4 mg/dL 12/29/2024 2:10 PM [facility] Comment: Reference ranges for this test were updated on 12/13/2023 to reflect our healthy population more accurately. Reference range changes are not retroactively applied to results, but previous results using the same methodology can be interpreted in the context of the new reference range. BUN 13 6 - 20 mg/dL 12/29/2024 2:10 PM [facility] CREATININE 0.91 0.70 - 1.20 mg/dL 12/29/2024 2:10 PM [facility] BUN/CREAT RATIO 14 10 - 20 2:10 PM [facility] eGFR >90 >90 mL/min/1.7 3m2 12/29/2024 2:10 PM [facility] Comment:As of 2021, eG FR is calculated by the CKD-EPI creatinine equation without race adjustment. eGFR can be influenced by muscle mass, exercise, and diet. The reported eGFR is an estimation only and is only applicable if the renal function is stable. Blood BLOOD SPECIMEN / Unknown [facility] Collect / Unknown 12/29/2024 12:44 PM NEONATAL SURGEON 12/29/2024 1:07 PM NEONATAL SURGEON us Polina Capellan NP CHEMISTRY Beatriz l Result [facility] [address] [place] [address] * (ABNORMAL) URINALYSIS MICROSCOPIC (12/29/2024 12:10 PM NEONATAL SURGEON) RBC 11-25(A) 0-2, None Seen /HPF 12/29/2024 12:30 PM NEONATAL SURGEON [facility] WBC 26-50(A) 0-2, 3-5, None Seen /HPF 12/29/2024 12:30 PM NEONATAL SURGEON [facility] BACTERIA Many(A) None Seen, Rare, Few Bacteria/H PF 12/29/2024 12:30 PM NEONATAL SURGEON [facility] EPITHELIAL CELLS Few None Seen, Few Epi/HPF 12/29/2024 12:30 PM NEONATAL SURGEON [facility] Urine URINE SPECIMEN / Unknown Non-Blood / Unknown 12/29/2024 12:10 PM NEONATAL SURGEON 12/29/2024 12:18 PM NEONATAL SURGEON Amy Lilly NP URINE Final Result Performing Organization Address [facility] Co de Phone Number [facility] [address] [place] [address] * URINE CULTURE (12/29/2024 12:10 PM NEONATAL SURGEON) Only the most recent of2 resultswithin the time period is included. CULTURE, URINE, ROUTINE SEE NOTE 12/31/2024 4:06 AM NEONATAL SURGEON [facility] Comment: CULTURE, URINE, ROUTINE Micro Number: [id number] Test Status: Final Specimen Source: Urine, clean catch Specimen Quality: Adequate Result: Mixed genital alex isolated. These superficial bacteria are not indicative of a urinary tract infection. No further organism identification is warranted on this specimen. If clinically indicated, recollect clean-catch, mid-stream urine and transfer immediately to Urine Culture Transport Tube. Urine URINE SPECIMEN / Unknown Non-Blood / Unknown 12/29/2024 12:10 PM NEONATAL SURGEON 12/29/2024 12:18 PM NEONATAL SURGEON us Amy Lilly NP MICROBIOLOGY Final Result [facility] [address] [address], * (ABNORMAL) UA W/ SEDIMENT EXAM REFLEXED PER CRITERIA (12/29/2024 12:10 PM NEONATAL SURGEON) Only the most recent of2 resultswithin the time period is included. COLOR Yellow Yellow Color 12/29/2024 12:30 PM [facility] CLARITY Slightly Cloudy(A) Clear Clarity 12/29/2024 12:30 PM [facility] SPECIFIC GRAVITY,URINE 1.020 1.010, 1.015, 1.020, 1.025 12/29/2024 12:30 PM [facility] PH,URINE 7.0 6.0, 7.0, 8.0, 5.5, 6.5, 7.5, 8.5 12/29/2024 12:30 PM [facility] UROBILINOGEN, QUALITATIVE Normal Normal EU/dl 12/29/2024 12:30 PM [facility] PROTEIN, URINE 100(A) Negative mg/dL 12/29/2024 12:30 PM [facility] GLUCOSE, URINE Negative Negative mg/dL 12/29/2024 12:30 PM [facility] KETONES,URINE Negative Negative mg/dL 12/29/2024 12:30 PM [facility] BILIRUBIN,URI NE Negative Negative 12/29/2024 12:30 PM [facility] OCCULT BLOOD,URINE Trace(A) Negative 12/29/2024 12:30 PM [facility] NITRITE Positive(A) Negative 12/29/2024 12:30 PM [facility] LEUKOCYTE ESTERASE Moderate(A) Negative 12/29/2024 12:30 PM [facility] Urine URINE SPECIMEN / Unknown Non-Blood / Unknown 12/29/2024 12:10 PM NEONATAL SURGEON 12/29/2024 12:18 PM NEONATAL SURGEON us Amy Lilly NP URINE Final Result [facility] [address] [place] [address] * EKG 12 LEAD (12/21/2024 4:30 PM NEONATAL SURGEON) Eliana Guerra MD EKG ORD Final Resul t * MO READING EKG - NO CHARGE, COMP ONLY (12/21/2024 4:30 PM NEONATAL SURGEON) Eliana Guerra MD PB - PROVIDER READINGS Beatriz l Result * URINALYSIS REFLEX NOTE ([facility] REFLEX ONLY) (12/19/2024 12:55 PM NEONATAL SURGEON) NOTE UA SEE NOTE 12/20/2024 2:57 AM NEONATAL SURGEON [facility] Comment: This urine was analyzed for the presence of WBC, RBC, bacteria, casts, and other formed elements. Only those elements seen were reported. Urine URINE SPECIMEN / Unknown Non-Blood / Unknown 12/19/2024 12:55 PM NEONATAL SURGEON 12/19/2024 12:56 PM NEONATAL SURGEON Eliana Guerra MD SEND OUTS Final Resul t [facility] [address] [address], [place] [phone] * (ABNORMAL) COMP METABOLIC PANEL (12/19/2024 12:55 PM NEONATAL SURGEON) SODIUM 138 135 - 146 mmol/L 12/20/2024 4:08 AM NEONATAL SURGEON [facility] POTASSIUM 4.3 3.5 - 5.3 mmol/L 12/20/2024 4:08 AM NEONATAL SURGEON [facility] CHLORIDE 101 98 - 110 mmol/L 12/20/2024 4:08 AM NEONATAL SURGEON [facility] CARBON DIOXIDE 28 20 - 32 mmol/L 12/20/2024 4:08 AM NEONATAL SURGEON [facility] GLUCOSE 83 65 - 99 mg/dL 12/20/2024 4:08 AM NEONATAL SURGEON [facility] Comment: Fasting reference interval CALCIUM 10.6(H) 8.6 - 10.3 mg/dL 12/20/2024 4:08 AM NEONATAL SURGEON [facility] CREATININE 1.01 0.60 - 1.24 mg/dL 12/20/2024 4:08 AM NEONATAL SURGEON [facility] BUN/CREATININE RATIO SEE NOTE: 6 - 22 (calc) 12/20/2024 4:08 AM NEONATAL SURGEON [facility] Comment: Not Reported: BUN and Creatinine are within reference range. EGFR 107 > OR = 60 mL/min/1. 73m2 12/20/2024 4:08 AM NEONATAL SURGEON [facility] ALBUMIN 5.2(H) 3.6 - 5.1 g/dL 12/20/2024 4:08 AM NEONATAL SURGEON [facility] PROTEIN, TOTAL 8.1 6.1 - 8.1 g/dL 12/20/2024 4:08 AM NEONATAL SURGEON [facility] BILIRUBIN, TOTAL 1.1 0.2 - 1.2 mg/dL 12/20/2024 4:08 AM NEONATAL SURGEON [facility] ALKALINE PHOSPHATASE 78 36 - 130 U/L 12/20/2024 4:08 AM NEONATAL SURGEON [facility] ALT 15 9 - 46 U/L 12/20/2024 4:08 AM NEONATAL SURGEON [facility] AST 16 10 - 40 U/L 12/20/2024 4:08 AM NEONATAL SURGEON [facility] UREA NITROGEN (BUN) 17 7 - 25 mg/dL 12/20/2024 4:08 AM NEONATAL SURGEON [facility] GLOBULIN 2.9 1.9 - 3.7 g/dL (calc) 12/20/2024 4:08 AM NEONATAL SURGEON [facility] ALBUMIN/GLOBULI N RATIO 1.8 1.0 - 2.5 (calc) 12/20/2024 4:08 AM NEONATAL SURGEON [facility] Blood BLOOD SPECIMEN / Unknown [facility] Collect / Unknown 12/19/2024 12:55 PM NEONATAL SURGEON 12/19/2024 12:56 PM NEONATAL SURGEON us Eliana Guerra MD CHEMISTRY Final Resul t [facility] [place] [address], [place] [phone] * (ABNORMAL) COMPLIANCE DRUG ANALYSIS (11/15/2024 1:47 PM CDT) 6-MONOACETYL MORPHINE NEG NEG ng/mL 11/18/2024 2:38 PM CDT [facility] AMPHETAMINE URINE NEG <=500 ng/mL 11/18/2024 2:38 PM [facility] BARBITURATE URINE NEG <=200 ng/mL 11/18/2024 2:38 PM [facility] BENZODIAZEPINE URINE NEG <=100 ng/mL 11/18/2024 2:38 PM [facility] BUPRENORPHRINE URINE NEG <=5 ng/mL 11/07 2:38 PM [facility] COCAINE METAB URINE NEG <=300 ng/mL 11/18/2024 2:38 PM [facility] ETHYLGLUCURONIDE URINE NEG <=250 ng/mL 11/18/2024 2:38 PM [facility] FENTANYL URINE NEG <=5 ng/mL 11/18/2024 2:38 PM [facility] METHADONE METABOLITE URINE NEG <=300 ng/mL 11/18/2024 2:38 PM [facility] OPIATES URINE POS(A) <=300 ng/mL 11/18/2024 2:38 PM [facility] OXYCODONE URINE NEG <=100 ng/mL 11/18/2024 2:38 PM [facility] PROPOXYPHENE URINE NEG <=300 ng/mL 11/18/2024 2:38 PM [facility] THC 50 URINE POS(A) <=50 ng/mL 11/18/2024 2:38 PM [facility] TRAMADOL NEG <=200 ng/mL 11/18/2024 2:38 PM [facility] PH URINE 8.2(H) 5.0 - 7.0 11/18/2024 2:38 PM [facility] CREAT UR 230 >=20 mg/dL 11/18/2024 2:38 PM [facility] MASS SPECTROMETRY See Below 2:38 PM [facility] Comment:Codeine, Codeine met abolites and Mirtazapine present. Urine URINE SPECIMEN / Unknown Non-Blood / Unknown 11/15/2024 1:47 PM CDT 11/15/2024 1:47 PM CDT Narrative [facility] - 11/18/2024 2:38 PM CDT Current Outpatient Medications: acetaminophen-codeine (TYLENOL #3) 300-30 mg per tablet, Take 1 Tablet by mouth every 4 hours if needed for Pain. Max acetaminophen dose: 4000mg in 24 hrs. Diaper,Brief, Adult,Disposable, For home use. famotidine 40 mg tablet, Take 0.5 Tablets (20 mg) by mouth two times daily. FLUoxetine (PROZAC) 20 mg capsule, Take 1 Capsule (20 mg) by mouth once daily in the morning. loratadine 10 mg tablet, Take 1 Tablet (10 mg) by mouth once daily. LORazepam (ATIVAN) 0.5 mg tab, Take 1 Tablet (0.5 mg) by mouth once daily if needed for Anxiety (#5 tabs/ 30 days only). metoclopramide (REGLAN) 5 mg tablet, Take 1 Tablet (5 mg) by mouth three times daily before meals. mirtazapine (REMERON) 15 mg tablet, Take 1 Tablet (15 mg) by mouth at bedtime. omeprazole 40 mg Delayed-Release capsule, TAKE 1 CAPSULE(40 MG) BY MOUTH DAILY BEFORE A MEAL oxybutynin XL (DITROPAN XL) 10 mg CR tablet, Take 1 Tablet (10 mg) by mouth once daily. polyethylene glycol (MIRALAX; GLYCOLAX) 17 g per packet packet, Mix 17 g in liquid then take by mouth once daily if needed. tadalafiL (CIALIS) 5 mg tablet, Take 5 mg by mouth. tiZANidine (ZANAFLEX) 2 mg capsule, Take 1 Capsule (2 mg) by mouth every 8 hours if needed for Muscle Spasm (scheduled TID). No current facility-administered medications for this visit. As of 11/15/2024 Release to patient->Immediate Zoila Manriquez LUMP ROOM SUPERVISOR URINE Final Re sult [facility] [address] [place] [address], [place] * SCAN-RADIOLOGY REPORT (11/11/2024 12:00 AM CDT) Anatomical Region Laterality Modality Other us Scanner OTHER Final Result * SCAN-DIAGNOSTIC REPORT (11/07/2024 12:00 AM CDT) us Scanner OTHER Final Result * SCAN-MRI INTERPRETATION (11/07/2024 12:00 AM CDT) Anatomical Region Laterality Modality Other us Scanner OTHER Final Result * SCAN-CT INTERPRETATION (10/26/2024 12:00 AM CDT) Anatomical Region Laterality Modality Other us Scanner OTHER Final Result * EXPOSURE (BBF) RAPID HIV (08/18/2020 8:10 AM CDT) Pathologist [facility] SOURCE RAPID HIV SCREEN Non-Reacti ve Non-Reacti ve 08/18/2020 2:42 PM CDT [facility] Blood BLOOD SPECIMEN / Unknown Venipuncture / Unknown 08/18/2020 8:10 AM CDT 08/18/2020 8:11 AM CDT us Eliana Guerra MD SEND OUTS Final Resul t [facility] [address] [place] [address], [place] * EXPOSURE (BBF) ANTI HCV (08/18/2020 8:10 AM CDT) Pathologist [facility] HEPATITIS C ANTIBODY Non-React alex Non-React alex 08/18/2020 2:57 PM CDT [facility] Comment:Antibodies to HCV no t detected; does not exclude the possibility of exposure to HCV. Blood BLOOD SPECIMEN / Unknown Venipuncture / Unknown 08/18/2020 8:10 AM CDT 08/18/2020 8:11 AM CDT us Eliana Guerra MD SEND OUTS Final [facility]ul t [facility] [address] [place] [address], [place] from Last 3 Months or Most Recently Relevant to Health Maintenance Additional Health Concerns Infection Onset Date Last Indicated ESBL 06/14/2024 06/14/2024 Insurance [facility] Care Teams Consulting Application Engineer Relationship Specialty Start Date End Date Eliana Guerra MD [address] [place] [address] PCP - General Family Practice 10/20/17
--- OUTSIDE RECORDS SUMMARY | 2025-01-04 10:59 | XMS_ITS | Encounter Summary ---
Author Organization [facility] Address [address] [place] [address] Care Team Providers Care Radio Equipment Installer Name Role Phone Elsewhere, Pcp Primary Care Provider Unavailabl e Encounter Details Date Type Department Care Team (Latest Contact Info) Description 11/30/2024 Clinical Communication Department of Physical Medicine and Rehabilitation in [place], [place] [address] [place] [address] María Bernstein C.H.T., O.T. 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 [address] [place] [address] documented as of this encounter Visit Diagnoses Not on filedocumented in this encounter Additional Health Concerns Assessment Noted Time PHQ-9 Depression Total Score: 5 07/07/19 24 9:17 PM CDT documented as of this encounter Care Teams Radio Equipment Installer Relationship Specialty Start Date End Date Elsewhere, Pcp PCP - General Internal Medicine 05/22/18 documented as of this encounter
--- OUTSIDE RECORDS SUMMARY | 2025-01-04 10:59 | XMS_ITS | Clinical Summary ---
Author Organization [facility] Address [address] [place] [address]. [place] [address] Care Team Providers Care Cam Milling Machine Operator Name Role Phone Kei Eugene MD Unavailable [phone] Eliana Guerra MD Primary Care Provider [phone] Eliana Guerra MD Unavailable [phone] Eliana Guerra MD Unavailable [phone] Unavailable Unavailable Jody Obregon APRN HOME CARE LIAISON Unavailable [phone] Efrain Crow PA-C Unavailable [phone] Allergies No known active allergies Medications famotidine [...] mouth daily. 30 tablet 1 5 Active Corrinefrancisco León Standard 1.4 Plain 11 OzIndications:Darius ght loss Place 1,625 mLs into GJ tube daily. Infuse via pump 70ml/hr Water flush: 120ml q 3 hours 92870 mL 11 12/12/2024 10:54 AM TUBE FILLER 5 Active Active Problems Problem Noted Date Diagnosed Date Nausea 03/02/2024 Epigastric abdominal pain 03/02/2024 Weight loss 03/02/2024 Encounters Date Type Department Care Team Description 11/14/2024 7:46 AM CDT - 11/14/2024 11:59 PM CDT Hospital Encounter [facility] [address] [place] [address] Nicholas Junior MD [facility], Chandler Chapa MD Dysphagia Discharge Disposition: Home or Self Care 11/13/2024 MyC Medical Advice [facility] Interventional Radiology [address] [place] [phone] Guerline Castillo RN 11/09/2024 Home Infusion [facility] [address] [place] [address] Erica Barraza APRN HOME CARE LIAISON from Last 3 Months Social History Tobacco [...] on file Legal Sex Male 9:18 AM TUBE FILLER Gender Identity Not on file Sexual Orientation Not on file Last Filed Vital Signs Vital Sign Reading Time Taken Comments Blood Pressure 154/101 11/14/2024 7:56 AM CDT Pulse 87 11/14/2024 7:56 AM CDT Temperature 37.2 C (99 F) 11/14/2024 7:56 AM CDT Respiratory Rate 18 11/14/2024 7:56 AM CDT Oxygen Saturation 99% 11/14/2024 7:56 AM CDT Inhaled Oxygen Concentration - - Weight 65.7 kg (144 lb 14.4 oz) 025 10:51 AM TUBE FILLER Height 188 cm (6' 2.02) 03/15/2024 10: 55 AM TUBE FILLER Body Mass Index 18.6 03/15/2024 10:55 AM TUBE FILLER Plan of Treatment Scheduled Procedures Name Priority Associated Diagnoses Date/Ti me SURGICAL EXTRACTION, TOOTH Chronic pericoronitis Health Maintenance Due Date Last Done Comments ADVANCE CARE PLANNING 2000 ANNUAL REVIEW OF HM ORDERS 2000 YEARLY PREVENTIVE VISIT 11/20/2023 11/20/19, 03/13/2021, 03/07/2020 COVID-19 VACCINE ( season) 2024 11/02/2023, 04/16/2022, 02/18/2021, Additional history exists INFLUENZA VACCINE (#1) 2024 , 11/19/2022, 04/16/2022, [...] 10/20/2001, 01/12/2001, 2000 MENINGITIS VACCINE Completed 02/23/2017, 09/02/2015 HEPATITIS C SCREENING Completed 08/18/2020 HIV SCREENING Completed 08/18/2020 HPV VACCINE Completed 10/28/2020, 02/08, 10/19/2019 PHQ-2 (once per calendar year) Completed 02/09/2024 MENINGITIS B VACCINE Aged Out No long er eligible based on patient's age to complete this topic Procedures Procedure Name Priority Date/Time Associated Diagnosis Comments IR GASTRO JEJUNOSTOMY TUBE CHANGE Routine 11/14/2024 9:09 AM CDT Dysphagia from Last 3 Months Results * IR Gastro Jejunostomy Tube Change (11/14/2024 9:09 AM CDT) Anatomical Region Laterality Modality Abdomen/Pelvis Radio Fluoroscop y, Radio Fluoroscopy 11/14/2024 9:09 AM CDT Impressions 11/20/2024 12:58 PM CDT IMPRESSION: Successful gastrojejunostomy tube exchange under fluoroscopic guidance as detailed above. Both the gastric and jejunal lumens are ready for use immediately. 18 Croatian JENNIE Car GJ tube. Stoma length not documented, thought to be 3.5 cm. Narrative 11/20/2024 12:58 PM CDT [facility] LOCATION: [facility] DATE: 11/14/2024 PROCEDURE: FLUOROSCOPIC GUIDED GASTROJEJUNOSTOMY EXCHANGE INTERVENTIONAL RADIOLOGIST: Chandler Farmer MD. INDICATION: Routine exchange. MODERATE SEDATION: None. CONTRAST: 50 mL Omnipaque enteric. ANTIBIOTICS: None. ADDITIONAL MEDICATIONS: Silver nitrate applied at the skin entry site. FLUOROSCOPIC TIME: 0.4 minutes. RADIATION DOSE: Air Kerma: 2 mGy. COMPLICATIONS: No immediate complications. STERILE BARRIER TECHNIQUE: Maximum sterile barrier technique was used. Cutaneous antisepsis was performed at the operative site with application of 2% chlorhexidine and large sterile drape. Prior to the procedure, the dowel setting machine operator and family service assistant performed hand hygiene and wore hat, mask, sterile gown, and sterile gloves during the entire procedure. PROCEDURE: Under fluoroscopic guidance, both the gastric and jejunal lumens of the pre- existing gastrojejunostomy were injected with contrast and images were obtained. The tube was then exchanged over a stiff Glidewire for a new 18 Croatian 45 cm JENNIE car gastrojejunostomy tube at 3.5 cm stoma length, Which was positioned under fluoroscopic guidance with its distal tip in the proximal jejunum. The retention balloon was inflated with 10 mL of saline. A post placement contrast injection of both the gastric and jejunal lumens was performed. FINDINGS: The initial injection demonstrates that the gastric and jejunal lumens are patent and in appropriate position. After exchange, the new gastrojejunostomy is in appropriate position with the gastric lumen emptying into the stomach and jejunal lumen emptying near the ligament of Treitz. Procedure Note Chandler Farmer MD - 11/20/2024 [facility] LOCATION: [facility] DATE: 11/14/2024 PROCEDURE: FLUOROSCOPIC GUIDED GASTROJEJUNOSTOMY EXCHANGE INTERVENTIONAL RADIOLOGIST: Chandler Farmer MD. INDICATION: Routine exchange. MODERATE SEDATION: None. CONTRAST: 50 mL Omnipaque enteric. ANTIBIOTICS: None. ADDITIONAL MEDICATIONS: Silver nitrate applied at the skin entry site. FLUOROSCOPIC TIME: 0.4 minutes. RADIATION DOSE: Air Kerma: 2 mGy. COMPLICATIONS: No immediate complications. STERILE BARRIER TECHNIQUE: Maximum sterile barrier technique was used.Cutaneous antisepsis was performed at the operative site with applicationof 2% chlorhexidine and large sterile drape. Prior to the procedure, theoperator and family service assistant performed hand hygiene and wore hat, mask, sterile gown, and sterile gloves duringthe entire procedure. PROCEDURE: Under fluoroscopic guidance, both the gastric and jejunal lumens of thepre- existing gastrojejunostomy were injected with contrast and images wereobtained. The tube was then exchanged over a stiff Glidewire for a new 18French 45 cm JENNIE car gastrojejunostomy tube at 3.5 cm stoma length, Which was positioned underfluoroscopic guidance with its distal tip in the proximal jejunum. Theretention balloon was inflated with 10 mL of saline. A post placementcontrast injection of both the gastric and jejunal lumens was performed. FINDINGS: The initial injection demonstrates that the gastric and jejunal lumens arepatent and in appropriate position. After exchange, the new gastrojejunostomy is in appropriate position withthe gastric lumen emptying into the stomach and jejunal lumen emptyingnear the ligament of Treitz. IMPRESSION: Successful gastrojejunostomy tube exchange under fluoroscopic guidance asdetailed above. Both the gastric and jejunal lumens are ready for use immediately. 18French JENNIE Car GJ tube. Stoma length not documented, thought to be 3.5cm. Lorena Cannon [facility] FIRE EXTINGUISHER REPAIRER HOME CARE LIAISON IMG IR ORDERAB LES Final Result from Last 3 Months Additional Health Concerns Infection Onset Date Last Indicated ESBL Comment:Added from external infection. Source: [facility]. 06/14/2024 Insurance [employer] Jieyin MD [employer] [facility] Advance Directives For more information, please contact: [phone] * Full Code (Latest Code Status on File) Date Activated Date Inactivated Comments 03/03/2024 12:32 AM 03/14/2024 4:32 PM All basic an d advanced life-sustaining interventions are performed as appropriate Question Answer Comments Code status determined by: Discussion with patie nt/ legal decision maker Care Teams Cam Milling Machine Operator Relationship Specialty Start Date End Date Eliana Guerra MD [address] [place] [address] [address] [place] [address] PCP - General Family Medicine 03/04/24 Kei Eugene MD [address] [place], [place] [address] [place] [address] Assigned Musculoskeletal Provider 03/01/24 Eliana Guerra MD [facility] [address] [place] [address] Home Infusion Following Provider Family Medicine 03/11/24 Eliana Guerra MD [facility] [address] [place] [address] Home Infusion Following Provider Family Medicine 03/14/[address] [facility] Registered Dietitian Dietitian 03/14/24 Jody Obregon APRN HOME CARE LIAISON Home Infusion Following Provider 03/14/24 Efrain Crow PA-C [facility] [address] [address] Home Infusion Following Provider Gastroenterology 06/25/24
--- OUTSIDE RECORDS SUMMARY | 2025-01-04 11:00 | XMS_ITS | Patient Health Record ---
Author Organization [facility] Address [address] [facility] [address] [place], [place] [address] Care Team Providers Care Commercial Census Taker Name Role Phone Charlie GARCIA, Eliana Primary Care Provider LexxrenettamaryLanette Juaquin [phone] Reason For Referral No Information Problems Problem Type SNOMED Code ICD Code Onset Dates Problem Status W/U Status Risk Notes Problem Pectus excavatum (741465942) Pectus excavatum (Q67.6) Active confirmed Problem Environmental allergy (322863739) Environmental allergies (Z91.09) Active confirmed Problem Low back pain (120783045) Low back pain (M54.5) Active confirmed Problem Underweight (673880607) Underweight (R63.6) Active confirmed Problem Pediatric body mass index (BMI) of less than 5th percentile for age (Z68.51) Active confirmed Problem Restless legs (95680529) Restless leg (G25.81) Active confirmed Plan Of Treatment No Information Insurance Providers Payer Name Payer Address Payer Phone Subscriber Number Group Number Insured Name Patient Relationship to Insured Coverage Start Date Coverage End Date [place] - [facility] [address] [address] [place] [address] [id number] Paramjit Boyce Self - patient is the insured Medical (General) History Medical History History ICD Code environmental allergies GERD chronic back pain
--- OUTSIDE RECORDS SUMMARY | 2025-01-04 11:00 | XMS_ITS | Patient Health Record ---
Author Organization [facility] Address [address] [facility] [address] [place] [address] Care Team Providers Care Chef Manager Name Role Phone Charlie GARCIA, Eliana Primary Care Provider JOHANNA GARCIA, PhD, [facility] [phone] Reason For Referral No Information Medications Medication SIG (Take, Route, Fr equency, Duration) Notes Start Date End Date Status Iron Not-Taking Social History Social History PSA Social History Social Info Question Answer Notes Education: Is the Child in School? Yes What Grade? 12th Additional Details Category Social Info Options Details PSA Social History Child Lives At: Home Child Lives With: Mother and Fat her Siblings Yes: 2 Activities / Interests? Mock tri al, [employer], alpine skiing Problems Problem Type SNOMED Code ICD Code Onset Dates Problem Status W/U Status Risk Notes Problem Pectus excavatum (125880479) Pectus excavatum (Q67.6) Active confirmed Problem Disorder of connective tissue (084099157) Connective tissue disorder (M35.9) Active confirmed Problem Acquired pectus carinatum (69882109) 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 Plan Of Treatment Pending Test Test Name Order Date C-Reactive Protein (CRP) (CRP) 8 Insurance Providers Payer Name Payer Address Payer Phone Subscriber Number Group Number Insured Name Patient Relationship to Insured Coverage Start Date Coverage End Date [employer] PMAP-20 19 [address] [address] [place] [id number] [facility] Paramjit Boyce Self - patient is the insured 9 Medical (General) History Medical History History ICD Code Syndromes/anomalies: Connective tissue d isorder Other: Pectus excavatum, Acquired pectus carinatum Surgical History Surgery Date(Month/Year) Daja procedure for pectus excavatum 10/08 10/25
--- OUTSIDE RECORDS SUMMARY | 2025-01-04 11:00 | XMS_ITS | Encounter Summary ---
Author Organization [facility] Address [address] [place] [address] Care Team Providers Care Manager Critical Care Name Role Phone Elsewhere, Pcp Primary Care Provider Unavailabl e Encounter Details Date Type Department Care Team (Late st Contact Info) Description 11/12/2024 Clinical Communication Department of Sports Medicine in [place], [place] [address] [place] [address] Ahsan Talbert M.D., Ph.D. 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 [address] [place] [address] documented as of this encounter Visit Diagnoses Not on filedocumented in this encounter Additional Health Concerns Assessment Noted Time PHQ-9 Depression Total Score: 5 07/07/19 24 9:17 PM CDT documented as of this encounter Care Teams Manager Critical Care Relationship Specialty Start Date End Date Elsewhere, Pcp PCP - General Internal Medicine 05/22/18 documented as of this encounter
--- OUTSIDE RECORDS SUMMARY | 2025-01-04 11:00 | XMS_ITS | Clinical Summary ---
Author Organization [employer] Address [address] [place] [address] Care Team Providers Care Outpatient Clerk Name Role Phone Eliana Guerra MD Primary Care Provider [phone] Source Comments You are receiving this document as you are listed as the primary care provider,follow-up provider, or the patient has been referred to you for consultation.This is in compliance with the Medicare and[facility] EHR Incentive Program,which states Providers who transition their patient to another setting of careor provider of care or refers their patient to another provider of care shouldprovide summary care record for each transition of care or referral. [employer] Allergies Active Allergy Reactions Criticality Noted Date Comments Other Other, see comments 04/13/2024 HAS AN ALLERGY TO SOME KIND OF SUGAR HAVING TESTING TO DETERMINE TYPE Medications metoclopramid e (REGLAN) 5 MG tabletIndicat ions:Gastroes ophageal Reflux Disease Take 1 Tablet (5 mg) by mouth three times daily before meals. Indications: Gastroesophageal Reflux Disease 025 Active ibuprofen (MOTRIN) 400 MG tabletIndicat ions:Pain Take 1 Tablet (400 mg) by mouth every 6 hours as needed for Pain (May be given with other analgesics). Indications: Pain 100 Tablet 11 025 Active acetaminophen (TYLENOL) 325 MG tabletIndicat ions:Pain Take 2 Tablets (650 mg) by mouth every 6 hours as needed. Indications: Pain 100 Tablet 025 Active famotidine (PEPCID) 20 MG tabletIndicat ions:Gastroes ophageal Reflux Disease Take 1 Tablet (20 mg) by mouth two times a day. Indications: Gastroesophageal Reflux Disease Active omeprazole (PRILOSEC OTC) 20 MG enteric coated tabletIndicat ions:Gastroes ophageal Reflux Disease Take 1 Tablet (20 mg) by mouth two times a day. Indications: Gastroesophageal Reflux Disease Active FLUoxetine (PROZAC) 20 MG capsule Take 1 Capsule (20 mg) by mouth daily. 90 Capsule 3 2025 Active loratadine (CLARITIN) 10 MG tablet Take 1 Tablet (10 mg) by mouth two times a day. Active cyclobenzapri ne (FLEXERIL) 5 MG tablet Take 1 Tablet (5 mg) by mouth three times a day as needed for Muscle Spasms. Active bisacodyl (DULCOLAX) 10 MG suppositoryIn dications:Con stipation Unwrap and insert 1 Suppository (10 mg) rectally daily as needed for Constipation .No stool in the last 3 days. Indications: Constipation 30 Each 3 07/14/19 9:00 AM CDT Active polyethylene glycol 3350 (GLYCOLAX) 17 GM/SCOOP powderIndicat ions:Constipa tion Take 17 g by mouth daily as needed. Fill to top of indicated section in lid (17 grams). Mix in 4 to 8 ounces of a beverage and drink as directed. Indications: Constipation Active diazePAM (VALIUM) 2 MG tablet Take 1 Tablet (2 mg) by mouth every 6 hours as needed for Anxiety or Muscle Spasms. 20 Tablet 1 Active traZODone (DESYREL) 50 MG tablet Take 1 Tablet (50 mg) by mouth daily at bedtime. 2024 Discontinued gabapentin (NEURONTIN) 300 MG capsuleIndica tions:nerve pain Take 3 Capsules (900 mg) by mouth three times a day. Indications: nerve pain 90 Capsule 3 07/14/19 25 9:00 AM CDT 2024 Discontinued tiZANidine (ZANAFLEX) 2 MG tablet Take 1 Tablet (2 mg) by mouth every 8 hours as needed. 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 [address] Anahi Van MD Chief Comp: Follow-up, NOS 12/04/2024 3:40 PM CDT Office Visit Orthopedics at [address] [place] [address] Anahi Van MD Subluxation of peroneal tendon of left foot (Primary Dx) 11/18/2024 5:30 PM CDT E-Visit Orthopedics at [address] [place] [address] Anahi Van MD Chief Comp: Forms/Letter 11/06/2024 3:00 PM CDT Office Visit Orthopedics at [address] [place] [address] Anahi Van MD Subluxation of peroneal tendon of left foot (Primary Dx) 10/11/2024 Notes/Orders [facility] at [address] [place] [address] Nilay Ceron MD 10/10/2024 Telephone Orthopedics at [address] [place] [address] Anahi Van MD APPOINTMENT REQUEST 10/07/2024 11:40 AM CDT E-Visit Orthopedics at [address] [place] [address] Nilay Ceron MD Chief Comp: Forms/Letter from Last 3 Months Social History Tobacco Use Types Packs/Day Years Used Date Smoking Tobacco: Never Smokeless Tobacco: Never Tobacco Cessation:Counseling Given: Not Answered Alcohol Use Standard Drinks/Week Comments Yes 0 (1 standard drink = 0.6 oz pur e alcohol) occasional [facility] Utilities Answer Date Recorded In the past 12 months has e [email or web address], gas, oil, or water [employer] threatened to shut off services in [...] in the past 12 m [facility], were you homeless or living in a assisted (including now)? No 07/04/2024 Sex and Gender Information Value Date Recorded Sex Assigned at Not on file Legal Sex Male 5:33 PM GEM SETTER Gender Identity Not on file Sexual Orientation [...] st Contact Info) Description 01/11/2025 9:40 AM GEM SETTER Appointment [facility] [address] [place], [place] [phone] Roz Crow DO [address] [place] [address] 01/22/2025 10:40 AM GEM SETTER Appointment Orthopedics at [address] [address] Anahi Van MD [address] [place] [address] Health Maintenance Due Date Last Done Comments Hep C Screening (Preventive Services) 2000 Adult Preventive Visit 2018 HepB Vaccine (1) 05/10/2019 COVID-19 Vaccine ( season) 2024 11/02/2023, 04/16/2022, [...] 08/18/2020 HPV Vaccine Completed 10/28/2020, 02/08, 10/19/2019 Meningococcal B Vaccine Aged Out No l onger eligible based on patient's age to complete this topic Insurance [place] [address] Advance Directives * Full Code (Latest Code Status on File) Date Activated Date Inactivated Comments 06/19/2024 4:06 PM 07/04/2024 2:51 PM Care Teams Outpatient Clerk Relationship Specialty Start Date End Date Eliana Guerra MD [address] [place] [address] PCP - General Family Practice 12/04/19
--- OUTSIDE RECORDS SUMMARY | 2025-01-04 11:01 | XMS_ITS | Encounter Summary ---
Author Organization [facility] Address [address] [place] [address] Care Team Providers Care Compensation Programs Manager Name Role Phone Elsewhere, Pcp Primary Care Provider Unavailabl e Encounter Details Date Type Department Care Team (Late st Contact Info) Description 12/17/2024 Orders Only Department of Orthopedic Surgery in [place], [place] [address] [place] [address] Candida Lucero P.A.-C. 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 I have a [facility] place to live 05/29/2024 Education Answer Date Recorded What is the highest level of school you have completed or the highest degree you have received? Some college, no degree 05/24/2020 Sex and Gender Information Value Date Recorded Sex Assigned at Male 10/29/2020 12:38 PM CDT Legal Sex Male 1:45 PM EXECUTIVE RECEPTIONIST Gender Identity Male 07/15/2019 8:59 AM CDT Sexual Orientation Straight 07/15/2019 8: 59 AM CDT documented as of this encounter Plan of Treatment Upcoming Encounters Date Type Department Care Team (Late st Contact Info) Description 01/07/2025 1:30 PM EXECUTIVE RECEPTIONIST Telemedicine Department of Urology in [place], [place] [address] [place] [address] Danielle Pitt D.O. [address] [place] [address] documented as of this encounter Visit Diagnoses Diagnosis Pain Hip Left- Primary documented in this encounter Additional Health Concerns Assessment Noted Time PHQ-9 Depression Total Score: 5 07/07/19 24 9:17 PM CDT documented as of this encounter Care Teams Compensation Programs Manager Relationship Specialty Start Date End Date Elsewhere, Pcp PCP - General Internal Medicine 05/22/18 documented as of this encounter
--- OUTSIDE RECORDS SUMMARY | 2025-01-04 11:01 | XMS_ITS | Encounter Summary ---
Author Organization [facility] Address [address] [place] [address] Care Team Providers Care Scientific Laboratory Supervisor Name Role Phone Elsewhere, Pcp Primary Care Provider Unavailabl e Reason for Visit * Reason Onset Date Comments Incontinence Supply Order 12/19/2024 Encounter Details Date Type Department Care Team (Latest Contact Info) Description 12/19/2024 Clinical Communication Department of Urology in [place], [place] [address] [place] [address] Kate Egan P.A.-Lonnie. 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 I have a [facility] place to live 05/29/2024 Education Answer Date Recorded What is the highest level of school you have completed or the highest degree you have received? Some college, no degree 05/24/2020 Sex and Gender Information Value Date Recorded Sex Assigned at Male 10/29/2020 12:38 PM CDT Legal Sex Male 1:45 PM BPM SOLUTION ARCHITECT Gender Identity Male 07/15/2019 8:59 AM CDT Sexual Orientation Straight 07/15/2019 8: 59 AM CDT documented as of this encounter Plan of Treatment Upcoming Encounters Date Type Department Care Team (Late st Contact Info) Description 01/07/2025 1:30 PM BPM SOLUTION ARCHITECT Telemedicine Department of Urology in [place], [place] [address] [place] [address] Danielle Pitt D.O. [address] [place] [address] documented as of this encounter Visit Diagnoses Not on filedocumented in this encounter Additional Health Concerns Assessment Noted Time PHQ-9 Depression Total Score: 5 07/07/19 24 9:17 PM CDT documented as of this encounter Care Teams Scientific Laboratory Supervisor Relationship Specialty Start Date End Date Elsewhere, Pcp PCP - General Internal Medicine 05/22/18 documented as of this encounter
[2025-01-04 11:20] VITALS: BP 143/82; PULSE 99; RESP 20; TEMP 37.1; O2SAT 99; BMI 21.4
--- NOTE | 2025-01-04 12:03 | CRLHL7_ITS ---
For Patients: As a result of the Century Cures Act, medical imaging exams and procedure reports are released immediately into your electronic medical record. You may view this report before your referring provider. If you have questions, please contact your health care provider. Indication: Left-sided pain, swelling, lump Technique: Ultrasound of the scrotum and contents. Sonographic velez-scale images were obtained with spectral waveform and color Doppler analysis of the testicles. Comparison: None. Findings: Both testicles are normal in size and echotexture. No masses. No suspicious calcifications. Arterial and venous color Doppler blood flow and spectral waveforms are present in both testicles. Epididymis: The left epididymal body and tail is enlarged with increased vascularity. The right epididymis is unremarkable. Other: No significant hydrocele. No sign of varicocele. Scrotal wall is normal. Impression: 1. No evidence of testicular torsion or mass. 2. Enlarged left epididymis corresponding to patient`s palpable abnormality with increased vascularity suggestive of epididymitis. Dictated by Lamar Marcelo MD @ 01/04/2025 1:10:41 PM (Electronically Signed)
--- NOTE | 2025-01-04 12:07 | ED.GENADULT ---
HPI - General Adult General Time Seen by Provider: 12:07 Date Seen: 01/04/25 Stated complaint: pain testicle and lump/swelling Time Seen by Provider: 01/04/25 12:07 Source: patient, RN notes reviewed and old records reviewed Mode of arrival: ambulatory Limitations: no limitations History of Present Illness HPI narrative: This 24-year-old male is coming in with a lump in his left testicle, pain with this. This morning he thought the testicle felt more swollen. 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 His testicles been more painful for about the last month, he thought it was probably some underlying UTIs. He has noted fever December 13 and . These were 101.7? F and 100.8? F respectively. He has been having urethral pain, making his intermittent catheterization more difficult, is supposed to be doing this 5 times a day. He has noted some urgency and incontinence. He has noted more body aches. He also has Kamari Danlos syndrome, has been told to avoid fluoroquinolones if possible. He states that he is ?virgin?. He has had oral intercourse, last was maybe 9 months ago. No concern for STIs. He just really has not felt well this past month. He has had some lower abdominal pain in the bladder area at times. Related Data Home Medications ?Medication ?Instructions ?Recorded ?Confirmed famotidine 40 mg tablet 40 mg PO DAILY 11/08/23 01/04/25 metoclopramide HCl 5 mg tablet 5 mg PO TID 05/17/24 01/04/25 Previous Rx's ?Medication ?Instructions ?Recorded cefpodoxime 200 mg tablet 200 mg PO BID #20 tabs 01/04/25 Allergies Allergy/AdvReac Type Severity Reaction Status Date / Time No Known Allergies Allergy Verified 01/04/25 11:29 Review of Systems Status of ROS: Reports: 6 or more systems reviewed and unremarkable except as noted in History and below [facility] Medical History Congenital pectus excavatum ?Q67.6 - Pectus excavatum (ICD-10) 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) ?Q98.4 - Klinefelter syndrome, unspecified (ICD-10) 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) ?Q79.60 - Kamari-Danlos syndrome, unspecified (ICD-10) 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) ?M26.609 - Unspecified temporomandibular joint disorder, unspecified side (ICD-10) Labral tear of right hip joint (12/12/19) ?S73.191A - Other sprain of right hip, initial encounter (ICD-10) Scoliosis (01/04/18) ?M41.9 - Scoliosis, unspecified (ICD-10) Pes planus (03/23/18) ?M21.40 - Flat foot [pes planus] (acquired), unspecified foot (ICD-10) Pectus excavatum (12/29/13) ?Q67.6 - Pectus excavatum (ICD-10) Pain in left wrist (07/01/20) ?M25.532 - Pain in left wrist (ICD-10) Hip pain, bilateral (12/12/19) ?M25.551 - Pain in right hip (ICD-10) ?M25.552 - Pain in left hip (ICD-10) Myofascial pain syndrome (09/24/20) ?M79.18 - Myalgia, other site (ICD-10) Hypogonadism male (03/23/18) ?E29.1 - Testicular hypofunction (ICD-10) Foot drop, left ?M21.372 - Foot drop, left foot (ICD-10) Exertional headache (04/18/18) ?G44.84 - Primary exertional headache (ICD-10) De Quervain's tenosynovitis (05/23/20) ?M65.4 - Radial styloid tenosynovitis [de Quervain] (ICD-10) Chronic back pain (04/21/23) ?M54.9 - Dorsalgia, unspecified (ICD-10) ?G89.29 - Other chronic pain (ICD-10) Bilateral tinnitus (09/24/20) ?H93.13 - Tinnitus, bilateral (ICD-10) Atrophy of testis (03/23/18) ?N50.0 - Atrophy of testis (ICD-10) 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) ?M26.639 - Articular disc disorder of temporomandibular joint, unspecified side (ICD-10) Arthralgia of temporomandibular joint (09/24/20) ?M26.629 - Arthralgia of temporomandibular joint, unspecified side (ICD-10) Acquired pectus carinatum ?M95.4 - Acquired deformity of chest and rib (ICD-10) Dyspepsia ?R10.13 - Epigastric pain (ICD-10) Malnutrition ?E46 - Unspecified protein-calorie malnutrition (ICD-10) Instability of left hip joint ?M25.352 - Other instability, left hip (ICD-10) Wrist joint instability ?M25.339 - Other instability, unspecified wrist (ICD-10) 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 - Kamari-Danlos syndrome, unspecified (ICD-10) Scaphoid fracture ?S62.009A - Unspecified fracture of navicular [scaphoid] bone of unspecified wrist, initial encounter for closed fracture (ICD-10) Chronic patellofemoral pain of left knee ?M25.562 - Pain in left knee (ICD-10) ?G89.29 - Other chronic pain (ICD-10) Tear of triangular fibrocartilage complex (TFCC) of right wrist (~07/2021) ?S63.591A - Other specified sprain of right wrist, initial encounter (ICD-10) Surgical History History of surgery ?Z98.890 - Other specified postprocedural states (ICD-10) Status post arthroscopy of hip ?Z98.890 - Other specified postprocedural states (ICD-10) History of carpal tunnel surgery of left wrist (02/02/21) ?Z98.890 - Other specified postprocedural states (ICD-10) Social History Narrative: He lives with his mother. His mother has left for trip to [place] 9 days ago. He is mostly home alone. His father, who has significant disabilities, comes to stay with him at times. He also has therapists and home health who come into the home daily. 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 He has been unable to work recently because of his multiple disabilities. He does not smoke. He drinks alcohol a couple times a week. He occasionally uses cannabis. What is your current living situation?: I presently have a place to live Problems where you live: no known problems Problems where you live details: n/a In the past 12 months, utilities in danger of being shut off: no In past 12 months, lack of transportation kept you from medical appts, meetings, work, or getting things needed for daily living: yes In the past 12 mos, have been you worried that your food would run out before you had money to buy more?: never true In the past 12 mos, the food you bought just didn't last and you didn't have money to buy more?: never true Smoking Status: Never smoker Do you use any of these nicotine containing products: None Second hand tobacco smoke exposure: Yes (occasionally) How often do you have a drink containing alcohol: 2-4 times a month How many standard drinks containing alcohol do you have on a typical day: 3 or 4 How often do you have six or more drinks on one occasion: Less than monthly AUDIT-C Alcohol total score: 4 Non-prescribed substance use: denies use Caffeine: Yes (rarely) How often does anyone, including family, friends and others, physically hurt you: never How often does anyone, including family, friends and others, insult or talk down to you: never How often does anyone, including family, friends and others, threaten you with harm: never How often does anyone, including family, friends and others, scream or curse at you: never service: No Health Related Social Needs: transportation insecurity (Z59.82) Exam Const: Vital Signs, click to edit/add: Vital Signs - 24 hr 01/04/25 11:20 Temperature 98.8 F Pulse Rate [Pulse Oximeter] 99 Respiratory Rate 20 Blood Pressure [Ri ght Upper Arm] 143/82 H Pulse Oximetry 99 Oxygen Delivery Me thod Room Air This 24-year-old male is shivering in exam room 3 when I do see him after he gets back into a room. Nursing staff recheck both a temp oral an oral temperature, 98.8 for both, not febrile. Sclera clear, face atraumatic. Lungs are clear come good air entry, no wheezing or crackles, no tachypnea, no accessory muscle use. CV regular rate and rhythm, no murmur, normal S1-S2, no S3-S4. Abdomen is soft, nontender, nondistended, no organomegaly. Normal uncircumcised penis, urethral meatus is normal, no erythema, no drainage, no injury noted. Left testicle is palpable, not swollen, is generally smaller, has hard indurated area on the epididymis. Right testicle and epididymis without any palpable abnormality other than having general smaller testes. Documenting provider has reviewed patient's vital signs: yes Course Course ED Course: Patient had ultrasound ordered after triage and brief discussion with me. When he was able to get in a room and had examination, labs were ordered and urinalysis. Testicular issues were considered including orchitis, epididymitis, torsion. I did have his ultrasound result prior to going in to see him and was able to tell me had epididymitis. With his history of felt it was very important to collect urine on him which we did do so. Reevaluation(s) Time of Reevaluation #1: 12:07 Reevaluation #1: Briefly introduced my myself the patient in triage, the ED is busy and high acuity patients. Have reviewed with him that I have reviewed his nursing triage. He is going to need ultrasound done, have ordered scrotal ultrasound. As soon as we can get him back for full evaluation and examination, we will do so. In the meantime he will need the scrotal ultrasound done and he agrees to proceed with this. Will have nursing staff try to a collect urinalysis while waiting. Time of Reevaluation #2: 15:13 Reevaluation #2: Have reviewed his labs, ultrasound and prior susceptibilities on urine cultures we have here. I have also reviewed current medical literature. We really do not have concern for STI here. With the epididymitis, higher generation cephalosporins are indicated if fluoroquinolones are contraindicated. We are going to give him 2 g IV Rocephin here, start him on cefpodoxime outpatient while we await urine sensitivities. Morganella is typically sensitive to 3rd and 4th generation cephalosporins in review of literature. He can use the symptomatic treatments for epididymitis, NSAIDs. I will give patient an extended course of antibiotics given that this is complicated. Patient is updated. He is requesting something for discomfort, will give a dose of IV Toradol. Time of Reevaluation #3: 16:20 Reevaluation #3: Patient had further questions at time of discharge for guarding catheterization. Reviewed with him that we do not have Urology here, I really feel like he needs to discuss catheterization issues or problems with catheterization with Urology. If he cannot catheterize, may need to see urology emergently. In looking at his prior records, his catheterization is been for detrusor muscle issues, not true urinary retention. If he cannot catheterized and does go into urinary retention, may need to be seen here for Garza catheter but does not seem to need this at this time. He does discuss pain with catheterization and I do not see anything externally but they may need to look with urethral scope to see if they see any internal issue with urethra, I cannot do that here at this time. I do feel he is safe for discharge but I have urged him to contact his Urology team on Tuesday thing. Vital Signs Vital signs: Initial Vital Signs Temperature 98.8 F 01/04/25 11:20 Temperature Source Temporal Artery Scan 01/04/25 11:20 Pulse Rate 99 01/04/25 11:20 Pulse Rhythm Regular 01/04/25 11:20 Respiratory Rate 20 01/04/25 11:20 Blood Pressure 143/82 H 01/04/25 11:20 Blood Pressure Mean 102 01/04/25 11:20 Blood Pressure Position Sitting 01/04/25 11:20 Pulse Oximetry 99 01/04/25 11:20 Oxygen Delivery Method Room Air 01/04/25 11:20 Vital Signs Temperature 98.8 F 01/04/25 11:20 Pulse Rate 99 01/04/25 11:20 Respiratory Rate 20 01/04/25 11:20 Blood Pressure 143/82 H 01/04/25 11:20 Pulse Oximetry 99 01/04/25 11:20 Oxygen Delivery Method Room Air 01/04/25 11:20 Temperature 98.8 F 01/04/25 11:20 Pulse Rate 99 01/04/25 11:20 Respiratory Rate 20 01/04/25 11:20 Blood Pressure 143/82 H 01/04/25 11:20 Pulse Oximetry 99 01/04/25 11:20 Oxygen Delivery Method Room Air 01/04/25 11:20 Medications Administered Medications: Discontinued Medications Generic Name Dose Route Start Last Admin Trade Name Jordan PRN Reason Stop Dose Admin Ceftriaxone Sodium 2 gm/ 100 mls @ 200 mls/hr 01/04/25 15:10 01/04/25 15:21 Sodium Chloride IVPB 01/04/25 15:11 200 mls/hr ONCE ONE Administration Ketorolac Tromethamine 15 mg 01/04/25 15:26 01/04/25 15:52 Ketorolac 15 Mg/Ml Inj IVP 01/04/25 15:27 15 mg ONCE ONE Administration Ondansetron HCl 4 mg 01/04/25 15:38 01/04/25 15:53 Ondansetron 2 Mg/Ml Inj IVP 01/04/25 15:39 4 mg ONCE ONE Administration Medical Decision Making Medical Records Medical records reviewed: Yes I reviewed the patient's medical records Medical records narrative: Patient has urine cultures positive on October 26 for Morganella morganii and Klebsiella oxytoca. These were resistant to oral ampicillin, cefazolin and Morganella to Unasyn. Morganella was also resistant to nitrofurantoin. The Klebsiella was otherwise sensitive. On November 18 he had Klebsiella oxytoca and Acinetobacter. The Klebsiella was resistant to ampicillin and cefazolin and intermediate to nitrofurantoin, the Acinetobacter was pansensitive including all cephalosporins. In August he had multi-organism UTI with Klebsiella oxytoca, Morganella morganii, Citrobacter freundii, stenotrophomonas maltophilia. The 3rd and 4th generation cephalosporins were susceptible. Lab Data Lab results reviewed: Yes I reviewed the patient's lab results Labs: Lab Results 01/04/25 01/04/25 Range/Units 14:00 14:15 WBC 7.14 (4.50-11.00) K/uL RBC 5.69 (4.30-5.90) m/uL Hgb 16.3 (13.5-17.5) gm/dL Hct 47.8 (37.0-53.0) % MCV 84 (80-100) fL MCH 29 (26-34) pg MCHC 34 (32-36) gm/dL RDW Coeff of Mele 12.4 (11.5-15.5) % Plt Count 261 (140-440) K/uL Neut % (Auto) 63.0 (42.0-72.0) % Lymph % (Auto) 25.1 (20-44) % [place] % (Auto) 8.1 (0.0-11.0) % Eos % (Auto) 3.1 (0.0-7.0) % Baso % (Auto) 0.6 (0.0-3.0) % Neut # (Auto) 4.50 (1.7-7.0) K/uL Lymph # (Auto) 1.79 (0.90-2.90) K/uL [place] # (Auto) 0.60 (0.00-0.90) K/UL Eos # (Auto) 0.22 (0.00-0.50) K/uL Baso # (Auto) 0.04 (0.00-0.30) K/uL Abs Immat Gran (auto) 0.01 (0.00-0.30) K/uL Imm/Tot Granulo (auto) 0.1 % Sodium 138 (135-149) mmol/L Potassium 4.2 (3.6-5.1) mmol/L Chloride 98 (96-114) mmol/L Carbon Dioxide 27 (20-32) mmol/L Anion Gap 13 (7-15) mEq/L BUN 13 (5-24) mg/dL Creatinine 0.9 (0.5-1.5) mg/dL Estimated Creat Clear 131.54 Estimated GFR 122 ml/min Glucose 93 (60-115) mg/dL Calcium 9.9 (8.4-10.6) mg/dL C-Reactive Protein 1.1 H (0.5-1.0) mg/dL Urine Color Yellow (Yellow) Urine Appearance Slightly Cloudy A (Clear) Urine pH 6.0 (5.0-8.5) Ur Specific [place] 1.025 (1.000-1.030) Urine Protein 2+ A (Negative) Urine Glucose (UA) Negative (Negative) Urine Ketones 3+ A (Negative) Urine Blood Negative (Negative) Urine Nitrite Positive A (Negative) Urine Bilirubin Negative (Negative) Urine Urobilinogen 1.0 (0.2-1.0) Ur Leukocyte Esterase 1+ A (Negative) Urine RBC 0-2 (0-2) Urine WBC 10-25 A (0-5) Ur Squamous Epith Cells None (None-Few) Urine Bacteria Many A (None) C.trachomatis Ampl DNA NOT DETECTED (No Detected) N.gonorrhoeae Ampl DNA NOT DETECTED (No Detected) Imaging Data US scrotum: Attestation: I have reviewed the pertinent imaging results. 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 Site :?[id number] Study:?US-Testicle Bilateral W/ Doppler-01/04/2025 1:03:16 PM Ordering Physician:Duc Phillip Final Report: Indication: Left-sided pain, swelling, lump Technique: Ultrasound of the scrotum and contents. Sonographic velez-scale images were obtained with spectral waveform and color Doppler analysis of the testicles. Comparison: None. Findings: Both testicles are normal in size and echotexture. No masses. No suspicious calcifications. Arterial and venous color Doppler blood flow and spectral waveforms are present in both testicles. Epididymis: The left epididymal body and tail is enlarged with increased vascularity. The right epididymis is unremarkable. Other: No significant hydrocele. No sign of varicocele. Scrotal wall is normal. Impression: 1. No evidence of testicular torsion or mass. 2. Enlarged left epididymis corresponding to patient`s palpable abnormality with increased vascularity suggestive of epididymitis. Dictated by Lamar Marcelo MD @ 01/04/2025 1:10:41 PM (Electronic Signature) Discharge Plan Discharge Clinical Impression: Acute UTI, Acute epididymitis, Klinefelter syndrome, Kamari-Danlos syndrome Patient Disposition: Home, Self-Care Condition: Stable Instructions: Epididymitis (ED), Catheter-associated Urinary Tract Infection (ED) Additional Instructions: Start oral antibiotics tonight, take as prescribed. Scrotal support, recommendations in the handout for symptomatic care can be used to help with pain from epididymitis. Certainly can use Tylenol and ibuprofen per bottle directions. We will let you know if the urine culture does grow anything that would require changing your antibiotic. Please schedule follow-up in clinic with your primary care provider for recheck after this ED visit within the next week. Otherwise, if you feel your worsening, have further concerns, please seek re-evaluation. Activity Level: Activity as Tolerated Prescriptions: New cefpodoxime 200 mg tablet 200 mg PO BID Qty: 20 0RF Rx Instructions: must administer with a meal/food No Action metoclopramide HCl 5 mg tablet 5 mg PO TID famotidine 40 mg tablet 40 mg PO DAILY Follow Up/Referrals: Eliana Guerra MD [Primary Care Provider, Family Practice] Stand Alone Forms: [facility] Info Instructions
[2025-01-04 14:11] LABS: Hematocrit* 47.8 % (37.0-53.0); Hemoglobin* 16.3 gm/dL (13.5-17.5); Immature Granulocytes Abs Auto 0.01 K/uL (0.00-0.30); Immature Granulocytes Pct Auto 0.1 %; Lymphocytes Absolute Auto 1.79 K/uL (0.90-2.90); Mean Corpuscular HGB Conc 34 gm/dL (32-36); Mean Corpuscular Hemoglobin 29 pg (26-34); Mean Corpuscular Volume 84 fL (80-100); RDW Coefficient of Variation % 12.4 % (11.5-15.5); Red Blood Count* 5.69 m/uL (4.30-5.90); White Blood Count* 7.14 K/uL (4.50-11.00)
[2025-01-04 14:21] LABS: Chloride* 98 mmol/L (96-114); Sodium* 138 mmol/L (135-149)
[2025-01-04 14:22] LABS: Potassium* 4.2 mmol/L (3.6-5.1)
[2025-01-04 14:25] LABS: Anion Gap 13 mEq/L (7-15); Blood Urea Nitrogen* 13 mg/dL (5-24); Calcium* 9.9 mg/dL (8.4-10.6); Carbon Dioxide* 27 mmol/L (20-32); Creatinine* 0.9 mg/dL (0.5-1.5); Est. Creatinine Clearance* 131.54; Estimated Glomerular Filt Rate 122 ml/min; Glucose* 93 mg/dL (60-115)
[2025-01-04 14:34] LABS: Appearance Urine Slightly Cloudy (Clear)
[2025-01-04 14:44] LABS: Slide Review Reflex No
[2025-01-04] MEDS: cefTRIAXone 2 GM in 0.9 % SODIUM CHLORIDE Mini-bag 100 ML IVPB (15:21)
[2025-01-04] MEDS: ONDANSETRON 2 MG/ML inj 4 MG IVP (15:53)
[2025-01-04 15:56] LABS: Chlamydia DNA Amplified* NOT DETECTED (No Detected); GC DNA Amplified* NOT DETECTED (No Detected)
== END 2025-01-04 16:30 | disposition home or self-care (01) ==
PROVIDERS: Emergency Provider Family Medicine; PCP Family Medicine
DX: N39.0 Urinary tract infection, site not specified (principal); N45.1 Epididymitis; Q98.4 Klinefelter syndrome, unspecified; Q79.60 Ehlers-Danlos syndrome, unspecified; Z79.2 Long term (current) use of antibiotics
CPT/HCPCS: 36415; 76870; 80048; 81001; 85025; 86140; 87086; 87491; 87591; 93976; 96365; 96375; 99284; 99285; J0696; J1885; J2405